=== PATIENT | female | born 1990 | race Caucasian/White ===

== ENCOUNTER 2019-04-05 16:01 | Emergency (ER) | payer OTHER, SELFPAY ==
[2019-04-05 16:02] VITALS: BP 125/84; PULSE 73; RESP 18; TEMP 36.5; BMI 35.6
[2019-04-05 19:02] VITALS: BP 154/89; PULSE 93; RESP 14; O2SAT 97
[2019-04-05] MEDS: Diphth,Pertuss(Acell),Tet Vac 0.5 ML Vial IM (19:35)
--- NOTE | 2019-04-05 19:49 | ED.DCSUM_ITS ---
- ER Visit Summary Date of Service: 04/05/19 Chief Complaint: Right thumb laceration History of Present Illness: The patient is a 28 F who presents with laceration to her right thumb that occurred today. Patient was using a vegetable chopper when she accidentally cut her thumb. Patient states the bleeding has been persistent. Patient denies any paresthesias or weakness. Patient currently denies any pain in her thumb. Patient states her last tetanus was between 5 and 10 years ago. Physical Examination: Vital signs are stable. Patient is afebrile. Patient is in no acute distress. Skin is warm dry. There is a 2.5 cm full-thickness linear laceration on the pad of the right thumb. There is mild gapping of the wound margins. There are no foreign bodies noted. There is full range of motion of the IP and MP joints of the right thumb. Strength is 5/5 in flexion and extension. Sensation was intact to light touch in all digits. Capillary refill was less than 2 seconds in all digits. Emergency Department Course and Treatment: The right thumb was anesthetized with 1% lidocaine via digital block. The wound was cleaned and irrigated with copious amounts of normal saline. The wound was closed with 6 simple interrupted #4-0 nylon sutures under sterile technique. Patient tolerated the procedure well. Bacitracin dressing was applied. Patient was instructed to follow-up with her primary care physician in 5 to 7 days for wound recheck and suture removal. Patient and family understood and were agreeable with the plan. All questions were answered. Disposition: Discharge home Impression: Right thumb laceration This note was generated with [employer] dictation software. It may contain incorrect words, spelling, and punctuation that were not noted in review of the chart claribel or to signing ED Disposition - Plan for ED Patient: Disposition: Home or Assisted Living Diagnosis: Laceration of right thumb Instructions: LACERATION, Extrem (Suture, Staple or Tape) Referrals: Chiki Gonzales MD [Primary Care Provider] - 7 Days for suture removal
[2019-04-05 20:19] VITALS: BP 145/78; PULSE 78; RESP 16; O2SAT 97
--- NOTE | 2019-04-05 20:20 | ED.RN ---
PT WAS OBSERVED ON SHOT TIME FOR 20 MIN. NO REACTION NOTED BY THIS NURSE.
== END 2019-04-05 20:20 | disposition home or self-care (01) ==
PROVIDERS: Emergency Provider Emergency Medicine; Family Provider Family Medicine; PCP Family Medicine
DX: S61.011A Laceration without foreign body of right thumb without damage to nail, initial encounter (principal); W26.8XXA Contact with other sharp object(s), not elsewhere classified, initial encounter; Y93.G1 Activity, food preparation and clean up
CPT/HCPCS: 12001; 90471; 90715; 99284

== ENCOUNTER 2021-01-09 00:15 | Inpatient (IN) | payer OTHER, SELFPAY ==
[2021-01-08 23:08] VITALS: BP 155/73; PULSE 90
[2021-01-08 23:10] VITALS: TEMP 36.1
[2021-01-08 23:11] VITALS: TEMP 36.1; O2SAT 98
[2021-01-08 23:14] VITALS: BMI 38.7
[2021-01-09] VITALS (52 sets, daily range): BP systolic 128–149; BP diastolic 63–80; PULSE 74–111; TEMP 35.9–36.8; O2SAT 83–100
[2021-01-09 00:11] LABS: ROM Internal Control Test YES-OK TO RESULT pt. (Internal QC)
[2021-01-09 00:12] LABS: ROM Patient Test POSITIVE (Negative)
[2021-01-09] MEDS: Lactated Ringers 1,000 ML 50 ML IV (00:50)
[2021-01-09 01:18] LABS: Absolute Neutrophil Count 13.3 X10^3/uL (2.0-7.7); Basophil# 0.04 X10^3/uL; Basophil% 0.2 % (0-1); Eosinophil# 0.08 X10^3/uL; Eosinophils% 0.5 % (0-5); Lymphocyte % 15.1 % (19-41); Mean Corp Hgb Conc 33.3 g/dL (32-36); Mean Corpuscular Hgb 30.7 pg (27.0-32.0); Mean Corpuscular Volume 92.2 fL (81-99); Mean Platelet Vol. 12.8 fl (6.2-12.0); Monocyte# 1.12 X10^3/uL; Monocyte% 6.5 % (0-10); NRBC Flagged by Analyzer 0 % (0-5); Neutrophil # 13.26 X10^3/uL (2.7-7.7); Neutrophil % 76.7 % (47-70); POSITIVE COUNT YES; RBC Distribution Width CV 12.8 % (11.6-14.6); RBC Distribution Width SD 43.3 fl (35.1-43.9); Red Blood Count 3.58 M/mm3 (4.2-5.4); White Blood Count 17.3 K/mm3 (4.4-11.0)
[2021-01-09 01:20] LABS: Differential Indicated SCAN CRITERIA MET
[2021-01-09] MEDS: miSOPROStol 25 MCG TABLET PO ×2 (01:35→06:01)
[2021-01-09 01:56] LABS: ALB/GLOB Ratio 0.6 RATIO (0.9-2.4); AST(SGOT) 16 U/L (15-37); Alanine Aminotransfer ALT/SGPT 17 U/L (13-56); Albumin, Serum 2.6 g/dL (3.2-5.0); Alkaline Phosphatase 105 U/L (45-117); Anion Gap 8 (5-15); BUN 14 mg/dL (7-18); BUN/Creat Ratio 15.8 RATIO (10-20); Calcium,Total 9.1 mg/dL (8.5-10.1); Chloride 108 mmol/L (98-107); Creatinine, Serum 0.89 mg/dL (0.55-1.02); EST Glomerular Filtration Rate 79 mL/min (>60); Est Glom Filt Rate - Afr Amer 96 mL/min (>60); Estimated Creatinine Clearance 106.66 ml/min; Globulin 4.3 g/dL (2.2-4.2); Glucose 107 mg/dL (74-106); Potassium 4.2 mmol/L (3.5-5.1); Protein, Total 6.9 g/dL (6.4-8.2); Sodium Level 139 mmol/L (136-145); Uric Acid 5.4 mg/dL (2.6-6.0)
[2021-01-09 02:23] LABS: Protein, Urine (Random) 7.3 mg/dL (<11.9); Protein:Creat Ratio 315 mg/g CRE (0-200)
[2021-01-09 02:37] LABS: Platelet Estimate ADEQUATE (ADEQ)
[2021-01-09 02:38] LABS: Differential Comment SCANNED
[2021-01-09 04:08] LABS: Platelet Count 212 K/mm3 (150-450)
--- NOTE | 2021-01-09 08:50 | PCM.HP.OB ---
HPI - General General Date of Admission: 01/09/21 HPI Narrative ANA DAVIES, is a 30 F who presents with SROM. Maternal Data Information Final BRITTANY: 01[birth year]21 Gestational age: 37 weeks [facility] Medical History (Updated 01/09/21 @ 08:[address] Galilea Abraham MD) Anxiety SROM (spontaneous rupture of membranes) Home Medications aspirin [Baby Aspirin] 81 mg PO DAILY 01/08/21 [History Last Taken 01/08/21 10:00] ferrous sulfate [iron] 325 mg PO BID 01/08/21 [History Last Taken 01/08/21 10:00] [id number] [] tab PO DAILY 01/08/21 [History Last Taken 01/08/21 10:00] Allergy/AdvReac Type Severity Reaction Status Date / Time No Known Allergies Allergy Verified 01/08/21 23:15 Surgical History (Updated 01/09/21 @ 00:26 by Madison Hines) H/O wisdom tooth extraction Social History Smoking Status: Former smoker History Elective abortions Hx Para 0 Spontaneous abortions Hx # Term Pregnancies Ectopic pregnancies Hx # Pregnancies Multiple births # of living children NST FHR Rate Baby A Variability:: Moderate Accelerations:: 15 x 15 Uterine Activity:: quiet Vital Signs Vital Signs Vital Signs: 01/08/21 23:08 01/08/21 23:10 01/08/21 23:11 Temperature 97.0 F L 96.9 F L Temperature Source Temporal Pulse Rate 90 Blood Pressure 155/73 H BP Systolic 155 BP Diastolic 73 Pulse Ox 98 01/09/21 00:03 01/09/21 03:49 01/09/21 03:50 Temperature 97.5 F L Temperature Source Pulse Rate 85 76 84 Blood Pressure 134/77 H 140/76 H BP Systolic 134 140 BP Diastolic 77 76 Pulse Ox 98 01/09/21 07:15 01/09/21 07:16 01/09/21 08:39 Temperature 98.1 F 97.9 F Temperature Source Pulse Rate 74 Blood Pressure 135/75 H BP Systolic 135 BP Diastolic 75 Pulse Ox 01/09/21 08:40 Temperature Temperature Source Pulse Rate 76 Blood Pressure 136/74 H BP Systolic 136 BP Diastolic 74 Pulse Ox Weight Weight: 286 lb Body Mass Index (BMI) 38.7 Physical Exam Const alert and oriented x3 HEENT normocephalic Chest inspection of chest normal Resp normal respiratory effort GI soft to palpation and non-tender Inspection: gravid external exam normal Narrative: cvx - closed/thick/high on admission Labs Labs Labs: Blood Type A POSITIVE Antibody Screen NEGATIVE Hct 33.0 % (37-47) L Hgb 11.0 g/dL (12.0-15.0) L See [facility] H&) Assessment & Plan (1) SROM (spontaneous rupture of membranes): COMMENT: 37 weeks PLAN: Admit to L&D Induction for SROM - s/p 2 doses of cytotec. Plan for pitocin and IUPC placement when able. Pain - epidural as desired GBS negative COVID negative Routine care EFW - less than 4500g, patient with adequate pelvis
[2021-01-09] MEDS: 0.9% Saline Lock 10 ML Syringe IV (10:35)
[2021-01-09] MEDS: Oxytocin 30 units/NS 500 ml 30 UNITS/500 ML IV.SOLN IV (10:37)
[2021-01-09] MEDS: Lactated Ringers 500 ML 999 ML IV ×2 (15:02→20:22)
[2021-01-09] MEDS: fentaNYL-bupivacaine (epidural) 100 ML BAG EPIDURAL ×2 (15:57→20:21)
--- NOTE | 2021-01-09 16:52 | PN.OBGYN_ITS ---
Subjective Subjective Comfortable with epidural Objective Data Objective Data Vital Signs: Vital Signs Temp Pulse BP Pulse Ox 97.9 F 86 133/78 H 83 01/09/21 16:05 01/09/21 16:38 01/09/21 16:38 01/09/21 16:06 Weight: 286 lb Body Mass Index (BMI) 38.7 Intake & Output: Intake and Output for Last 24 Hours 01/07/21 01/08/21 01/09/21 23:59 23:59 23:59 Intake Total 1747.80 / 1747.80 Output Total 1700 / 1700 Balance 47.80 / 47.80 Lab / Micro Data Result Diagrams: 01/09/21 00:50 01/09/21 00:50 Labs: Laboratory Results - last 24 hr 01/08/21 23:30: Vag Amniotic Fld Detect POSITIVE H 01/09/21 00:50: WBC 17.3 H, RBC 3.58 L, Hgb 11.0 L, Hct 33.0 L, MCV 92.2, MCH 30.7, MCHC 33.3, RDW Std Deviation 43.3, RDW Coeff of Anabela 12.8, Plt Count 212, MPV 12.8 H, Immature Gran % (Auto) 1.000 H, Neut % (Auto) 76.7 H, Lymph % (Auto) 15.1 L, Bath % (Auto) 6.5, Eos % (Auto) 0.5, Baso % (Auto) 0.2, Absolute Neuts (auto) 13.3 H, Absolute Lymphs (auto) 2.60, Nucleated RBC % 0, Differential Comment SCANNED, Platelet Estimate ADEQUATE 01/09/21 00:50: Blood Type A POSITIVE, Antibody Screen NEGATIVE 01/09/21 00:50: Sodium 139, Potassium 4.2, Chloride 108 H, Carbon Dioxide 23.0, Anion Gap 8, BUN 14, Creatinine 0.89, Estim Creat Clear Calc 106.66, Est GFR (M DRD) Af Amer 96, Est GFR (MDRD) Non-Af 79, BUN/Creatinine Ratio 15.8, Glucose 107 H, Uric Acid 5.4, Calcium 9.1, Total Bilirubin 0.40, AST 16, ALT 17, Alkaline Phosphatase 105, Total Protein 6.9, Albumin 2.6 L, Globulin 4.3 H, Albumin/Globulin Ratio 0.6 L 01/09/21 01:30: U Random Total Protein 7.3, Urine Creatinine 23.20, Protein/Creatinin Ratio 315 H Micro: Microbiology 01/09/21 00:50 Nasal Secretion SARS-CoV-2 Antigen (Rapid) - Final NST FHR Rate Baby A Baseline: 130 Variability:: Moderate Accelerations:: 15 x 15 Decelerations:: None Uterine Activity:: Q 2 min Assessment & Plan (1) SROM (spontaneous rupture of membranes): COMMENT: 37 weeks PLAN: AROM additional amniotic membranes - clear fluid cvx /-3 Continue pitocin induction
[2021-01-09] MEDS: Lactated Ringers 1,000 ML 200 ML IV ×2 (18:27→23:53)
[2021-01-10] VITALS (31 sets, daily range): BP systolic 116–144; BP diastolic 53–83; PULSE 70–129; RESP 16–18; TEMP 36.4–37.7; O2SAT 93–100
[2021-01-10] MEDS: fentaNYL-bupivacaine (epidural) 100 ML BAG EPIDURAL ×2 (01:17→05:37)
[2021-01-10] MEDS: Ondansetron 4 MG/2 ML Vial IV (01:44)
[2021-01-10] MEDS: Lactated Ringers 1,000 ML 200 ML IV (04:51)
[2021-01-10] MEDS: Lactated Ringers 500 ML 999 ML IV (05:13)
[2021-01-10] MEDS: Acetaminophen 500 MG Tablet PO (05:28)
[2021-01-10] MEDS: Oxytocin 30 units/NS 500 ml 30 UNITS/500 ML IV.SOLN 334 UNITS IV (08:11)
--- NOTE | 2021-01-10 08:18 | EX.PCM.OBRPT ---
Assessment & Plan (1) Vaginal delivery: (2) Meconium in amniotic fluid affecting management of mother, delivered: Vaginal Delivery Maternal Presentation Maternal Presentation: Spontaneous Rupture of Membranes and Medically Indicated Induction Maternal Presentation: Presented with PROM at 37.1 weeks gestation - cytotec and pitocin induction of labor performed Type of Induction: Pitocin and Cytotec Medical Reason for Induction: Premature Rupture of Membranes Operative Information Date of Procedure: 01/10/21 Pre-Operative Diagnosis: term gestation, PROM, Meconium fluid Post-Operative Diagnosis: same, live male infant Surgery / Procedure Performed: Spontaneous Vaginal Delivery Type of Anesthesia: Epidural Drain: Samuels to straight drain Estimated Blood Loss: 200 Time of Delivery: 08:08 Findings Description of Procedure: I arrived on unit evaluated the patient. Patient has been fully dilated and pushing for approximately 3-1/2 to 4 hours. Upon my exam it was felt that the infant was in the OP position with caput noted. Internal podalic version was performed to the MICHELINE position. Once rotation was performed with good maternal pushing efforts the head was and delivery of the head followed by the shoulders and the rest 's body. Delayed cord clamping was performed as the was placed on the mother's chest. Infant was vigorous at time of delivery and manufacturing test technician was present for delivery due to meconium fluid. Placenta delivered without complication and intact. First-degree vaginal laceration was repaired with 2-0 vicryl for hemostasis. Presentation: Vertex Amniotic Membrane Rupture Type: Spontaneous Amniotic Fluid Description: Moderate meconium Placental Delivery Description: Spontaneous Placenta Disposition: [facility] Specimen(s) Removed: Placenta Cord Vessel Description: 3 Vessels Cord Entanglement: None A Gender: Male (1 minute): 8 (5 minute): 9 Delayed Cord Clamping: Yes Post Vaginal Delivery Medications Given After Delivery: IV Pitocin Episiotomy Description: None Laceration: Vaginal Extension/lac and 1st degree Complication Complications: None
[2021-01-10] MEDS: Ibuprofen 600 MG Tablet PO (12:58)
[2021-01-11] MEDS: Ibuprofen 600 MG Tablet PO (00:19)
[2021-01-11 00:20] VITALS: BP 145/74; PULSE 107; RESP 16; TEMP 37.2; O2SAT 99
[2021-01-11 03:35] VITALS: BP 127/65; PULSE 79; RESP 18; TEMP 36.3; O2SAT 98
[2021-01-11 07:47] VITALS: BP 132/74; PULSE 95; RESP 16; TEMP 36.1
--- NOTE | 2021-01-11 08:37 | PN.OBGYN_ITS ---
Subjective Subjective Patient seen at bedside. Feeling good. Denies any pain. Ambulating and voiding without difficulty. Pumping and feeding infant via bottle in [facility]. Desires discharge home or transfer to [facility] status tomorrow. Objective Data Objective Data Vital Signs: Vital Signs Temp Pulse Resp BP Pulse Ox 98.8 F 96 16 139/70 H 98 01/11/21 13:05 01/11/21 13:05 01/11/21 13:05 01/11/21 13:05 01/11/21 03:35 Oxygen Delivery Method Room Air Weight: 286 lb Body Mass Index (BMI) 38.7 Intake & Output: Intake and Output for Last 24 Hours 01/09/21 01/10/21 01/11/21 23:59 23:59 23:59 Intake Total 5837.55 / 5837.55 3843.54 / 3843.54 Output Total 3850 / 3850 1200 / 1200 Balance 1987.55 / 1987.55 2643.54 / 2643.54 Lab / Micro Data Result Diagrams: 01/09/21 00:50 01/09/21 00:50 Micro: Microbiology 01/09/21 00:50 Nasal Secretion SARS-CoV-2 Antigen (Rapid) - Final ROS Eyes Eyes: Denies blurry vision, change in vision or spots in vision ENT HEENT: Denies dizziness or headache(s) Cardiovascular Cardiovascular: Denies abdominal pain, chest pain or dyspnea Respiratory/Chest Respiratory/Chest: Denies cough, dyspnea, shortness of breath at rest or shortness of breath with exertion Gastrointestinal Gastrointestinal: Denies abdominal pain, diarrhea or vomiting Genitourinary Genitourinary: Denies change in urinary stream, difficulty urinating or dysuria Musculoskeletal Musculoskeletal: Reports none Integumentary Integumentary: Denies rash Neurologic Neurologic: Denies dizziness, headache(s), memory loss or weakness Physical Exam Const alert and no apparent distress General Appearance: cooperative and comfortable Exam Limitations: no limitations HEENT normocephalic Eyes General Eye: normal appearance of both eyes Neck full ROM General: normal visual inspection Chest Chest: symmetrical chest wall rise Resp normal respiratory effort and normal air movement Effort and Inspection: symmetric chest movement Auscultation: clear to auscultation bilaterally Cardio regular rate and regular rhythm GI normal to inspection, nondistended, normoactive bowel sounds Back/Spine normal ROM Extremity full ROM and no calf tenderness General Extremity: normal exam except as noted Skin no rashes or lesions noted Neuro CN's II-XII intact bilaterally Psych mental status grossly normal Assessment & Plan (1) Vaginal delivery: (2) Laceration, obstetrical, first degree: PLAN: PPD#1 Routine care support Anticipate discharge home tomorrow
[2021-01-11 13:05] VITALS: BP 139/70; PULSE 96; RESP 16; TEMP 37.1
[2021-01-11 20:10] VITALS: BP 151/83; PULSE 88; RESP 18; TEMP 36.7
[2021-01-12] VITALS (7 sets, daily range): BP systolic 123–153; BP diastolic 79–87; PULSE 83–107; RESP 16–18; TEMP 36.3–36.8; O2SAT 98–100
[2021-01-12] MEDS: Acetaminophen 500 MG Tablet 1000 MG PO (04:03)
[2021-01-12 09:12] LABS: Hematocrit 30.6 % (37-47); Hemoglobin 9.8 g/dL (12.0-15.0); Mean Corpuscular Hgb 30.3 pg (27.0-32.0); Mean Corpuscular Volume 94.7 fL (81-99); Mean Platelet Vol. 11.6 fl (6.2-12.0); Platelet Count 177 K/mm3 (150-450); RBC Distribution Width CV 13.2 % (11.6-14.6); RBC Distribution Width SD 45.5 fl (35.1-43.9); Red Blood Count 3.23 M/mm3 (4.2-5.4); White Blood Count 13.4 K/mm3 (4.4-11.0)
[2021-01-12 09:32] LABS: Uric Acid 6.1 mg/dL (2.6-6.0)
[2021-01-12 10:06] LABS: ALB/GLOB Ratio 0.5 RATIO (0.9-2.4); AST(SGOT) 20 U/L (15-37); Alanine Aminotransfer ALT/SGPT 20 U/L (13-56); Albumin, Serum 2.2 g/dL (3.2-5.0); Alkaline Phosphatase 96 U/L (45-117); Anion Gap 7 (5-15); BUN 12 mg/dL (7-18); BUN/Creat Ratio 14.5 RATIO (10-20); Chloride 108 mmol/L (98-107); Creatinine, Serum 0.83 mg/dL (0.55-1.02); EST Glomerular Filtration Rate 86 mL/min (>60); Est Glom Filt Rate - Afr Amer 104 mL/min (>60); Estimated Creatinine Clearance 114.37 ml/min; Globulin 4.1 g/dL (2.2-4.2); Glucose 72 mg/dL (74-106); Potassium 3.7 mmol/L (3.5-5.1); Protein, Total 6.3 g/dL (6.4-8.2); Sodium Level 141 mmol/L (136-145)
[2021-01-12] MEDS: Labetalol 100 MG Tablet PO ×2 (12:35→23:00)
--- NOTE | 2021-01-12 17:24 | PCM.PN.OB ---
Subjective Subjective Doing well per patient and nursing staff. Ambulating and taking PO without difficulty. Voiding and passing flatus. Pain controlled. , services for assistance, baby in special care nursery and pumping. Has dull occipital pain but feels musculoskeletal, no headache.Denies visual changes, chest pain, shortness of breath, leg pain or increased bleeding. Lochia normal. Objective Data Objective Data Vital Signs: Vital Signs Temp Pulse Resp BP Pulse Ox 98.2 F 100 16 135/81 H 100 01/12/21 16:30 01/12/21 16:30 01/12/21 16:30 01/12/21 16:30 01/12/21 16:30 Oxygen Delivery Method Room Air Weight: 286 lb Body Mass Index (BMI) 38.7 Intake & Output: Intake and Output for Last 24 Hours 01/10/21 01/11/21 01/12/21 23:59 23:59 23:59 Intake Total 3843.54 / 3843.54 Output Total 1200 / 1200 Balance 2643.54 / 2643.54 Lab / Micro Data Result Diagrams: 01/12/21 08:55 01/12/21 08:55 Labs: Laboratory Results - last 24 hr 01/12/21 08:55: WBC 13.4 H, RBC 3.23 L, Hgb 9.8 L, Hct 30.6 L, MCV 94.7, MCH 30.3, MCHC 32.0, RDW Std Deviation 45.5 H, RDW Coeff of Anabela 13.2, Plt Count 177, MPV 11.6 01/12/21 08:55: Uric Acid 6.1 H 01/12/21 08:55: Sodium 141, Potassium 3.7, Chloride 108 H, Carbon Dioxide 26.0, Anion Gap 7, BUN 12, Creatinine 0.83, Estim Creat Clear Calc 114.37, Est GFR (MDRD) Af Amer 104, Est GFR (MDRD) Non-Af 86, BUN/Creatinine Ratio 14.5, Glucose 72 L, Calcium 8.0 L, Total Bilirubin 0.60, AST 20, ALT 20, Alkaline Phosphatase 96, Total Protein 6.3 L, Albumin 2.2 L, Globulin 4.1, Albumin/Globulin Ratio 0.5 L Micro: Microbiology 01/09/21 00:50 Nasal Secretion SARS-CoV-2 Antigen (Rapid) - Final ROS Constitutional Constitutional: Reports systems reviewed and no addt'l complaints, except as documented; Denies headache(s) Eyes Eyes: Denies acute decrease in peripheral vision, blurry vision or change in vision ENT HEENT: Reports systems reviewed and no addt'l complaints, except as documented Cardiovascular Cardiovascular: Denies chest pain or dizziness Respiratory/Chest Respiratory/Chest: Denies cough, dyspnea, dyspnea on exertion, shortness of breath at rest or shortness of breath with exertion Gastrointestinal Gastrointestinal: Denies abdominal pain, diarrhea, nausea or vomiting Genitourinary Genitourinary: Denies abdominal discomfort Musculoskeletal Musculoskeletal: Denies limited range of motion Integumentary Integumentary: Reports systems reviewed and no addt'l complaints, except as documented Neurologic Neurologic: Reports systems reviewed and no addt'l complaints, except as documented Psychiatric Psychiatric: Reports systems reviewed and no addt'l complaints, except as documented Endocrine Endocrinology: Reports systems reviewed and no addt'l complaints, except as documented Hematologic/Lymphatic Hematologic/Lymphatic: Reports systems reviewed and no addt'l complaints, except as documented Allergic/Immunologic Allergic/Immunologic: Reports systems reviewed and no addt'l complaints, except as documented Physical Exam Const alert and oriented x3 General Appearance: cooperative Orientation / Consciousness: awake, oriented to person, oriented to place and oriented to time Exam Limitations: no limitations HEENT normocephalic Head and Scalp: normal to inspection, normocephalic and atraumatic Face and Sinus: normal facial exam Eyes General Eye: normal appearance of both eyes Neck full ROM Chest Chest: symmetrical chest wall rise Resp normal respiratory effort and normal air movement Auscultation: clear to auscultation bilaterally Cardio regular rate, regular rhythm, S1 normal heart sound, S2 normal heart sound, no murmurs, no rub, no gallops and no clicks GI normal to inspection, nondistended, normoactive bowel sounds and non-tender appearance of the vagina normal Bladder / Kidney Exam: no CVA tenderness Back/Spine normal ROM Extremity normal to inspection and full ROM Skin no rashes or lesions noted Neuro oriented x3, CN's II-XII intact bilaterally and moves all extremities Sensorium / Orientation: awake, alert and oriented to person Motor Exam: clonus absent Deep Tendon Reflexes: Rt Patellar (L4): 2+ and Lt Patellar (L4): 2+ Assessment & Plan (1) Laceration, obstetrical, first degree: (2) Vaginal delivery: COMMENT: PPD #2 PLAN: 1) Routine PP instructions 2) BP mildly elevated. Will start Labetalol 100mg PO BID. Consulted and agrees with plan. 3) Continue pumping, will work with services 4) Planning D/C to hot status tomorrow
[2021-01-13 02:23] VITALS: BP 128/73; PULSE 81; RESP 18
[2021-01-13] MEDS: Labetalol 100 MG Tablet PO ×2 (02:27→18:03)
[2021-01-13 05:43] VITALS: BP 133/74
[2021-01-13] MEDS: Labetalol 200 MG Tablet PO ×2 (05:46→13:38)
--- NOTE | 2021-01-13 06:54 | PN.OBGYN_ITS ---
Subjective Subjective Doing well per patient and nursing staff. Ambulating and taking PO without difficulty. Voiding and passing flatus. Pain controlled. Pumping, baby in SCN. Denies headache, visual changes, chest pain, shortness of breath, leg pain or increased bleeding. Lochia normal. Objective Data Objective Data Vital Signs: Vital Signs Temp Pulse Resp BP Pulse Ox 97.9 F 81 18 133/74 H 100 01/12/21 19:45 01/13/21 02:23 01/13/21 02:23 01/13/21 05:43 01/12/21 19:45 Oxygen Delivery Method Room Air Weight: 286 lb Body Mass Index (BMI) 38.7 Lab / Micro Data Result Diagrams: 01/12/21 08:55 01/12/21 08:55 Labs: Laboratory Results - last 24 hr 01/12/21 08:55: WBC 13.4 H, RBC 3.23 L, Hgb 9.8 L, Hct 30.6 L, MCV 94.7, MCH 30.3, MCHC 32.0, RDW Std Deviation 45.5 H, RDW Coeff of Anabela 13.2, Plt Count 177, MPV 11.6 01/12/21 08:55: Uric Acid 6.1 H 01/12/21 08:55: Sodium 141, Potassium 3.7, Chloride 108 H, Carbon Dioxide 26.0, Anion Gap 7, BUN 12, Creatinine 0.83, Estim Creat Clear Calc 114.37, Est GFR (M DRD) Af Amer 104, Est GFR (MDRD) Non-Af 86, BUN/Creatinine Ratio 14.5, Glucose 72 L, Calcium 8.0 L, Total Bilirubin 0.60, AST 20, ALT 20, Alkaline Phosphatase 96, Total Protein 6.3 L, Albumin 2.2 L, Globulin 4.1, Albumin/Globulin Ratio 0.5 L Micro: Microbiology 01/09/21 00:50 Nasal Secretion SARS-CoV-2 Antigen (Rapid) - Final ROS Constitutional Constitutional: Reports systems reviewed and no addt'l complaints, except as documented; Denies headache(s) Eyes Eyes: Denies acute decrease in peripheral vision, blurry vision or change in vision ENT HEENT: Reports systems reviewed and no addt'l complaints, except as documented Cardiovascular Cardiovascular: Denies chest pain or dizziness Respiratory/Chest Respiratory/Chest: Denies cough, dyspnea, dyspnea on exertion, shortness of jak th at rest or shortness of breath with exertion Gastrointestinal Gastrointestinal: Denies abdominal pain, diarrhea, nausea or vomiting Genitourinary Genitourinary: Denies abdominal discomfort Musculoskeletal Musculoskeletal: Denies limited range of motion Integumentary Integumentary: Reports systems reviewed and no addt'l complaints, except as documented Neurologic Neurologic: Reports systems reviewed and no addt'l complaints, except as documented Psychiatric Psychiatric: Reports systems reviewed and no addt'l complaints, except as documented Endocrine Endocrinology: Reports systems reviewed and no addt'l complaints, except as documented Hematologic/Lymphatic Hematologic/Lymphatic: Reports systems reviewed and no addt'l complaints, except as documented Allergic/Immunologic Allergic/Immunologic: Reports systems reviewed and no addt'l complaints, except as documented Physical Exam Const alert and oriented x3 General Appearance: cooperative Orientation / Consciousness: awake, oriented to person, oriented to place and oriented to time Exam Limitations: no limitations HEENT normocephalic Head and Scalp: normal to inspection, normocephalic and atraumatic Face and Sinus: normal facial exam Eyes General Eye: normal appearance of both eyes Neck full ROM Chest Chest: symmetrical chest wall rise Resp normal respiratory effort and normal air movement Auscultation: clear to auscultation bilaterally Cardio regular rate, regular rhythm, S1 normal heart sound, S2 normal heart sound, no murmurs, no rub, no gallops and no clicks GI normal to inspection, nondistended, normoactive bowel sounds and non-tender GI Narrative: fundus firm 2 below U appearance of the vagina normal Bladder / Kidney Exam: no CVA tenderness Uterus Palpation: uterus fundus firm Back/Spine normal ROM Extremity normal to inspection and full ROM Extremity Narrative: +1 non pitting General Extremity: edema bilateral Skin no rashes or lesions noted Neuro oriented x3, CN's II-XII intact bilaterally and moves all extremities Sensorium / Orientation: awake, alert and oriented to person Motor Exam: clonus absent Deep Tendon Reflexes: Rt Patellar (L4): 2+ and Lt Patellar (L4): 2+ Assessment & Plan (1) Laceration, obstetrical, first degree: (2) Vaginal delivery: COMMENT: PPD #3 (3) Hypertension, condition or complication: (4) Acute blood loss anemia: PLAN: 1.routine and breast-feeding education. 2. Vital signs stable. No severe blood pressure range. Will discharge on labetalol 200 mg p.o. TID. To check blood pressure at home and to call if greater than 160/110. 3. Follow-up early next week for blood pressure check in office 4. Ferrous sulfate 325 mg p.o. once daily for acute blood loss anemia. 5. Discharge to hotel status
--- NOTE | 2021-01-13 06:58 | PCM.DC.SUM ---
Providers Date of Admission: 01/09/21 Primary Care Physician: Dr. Chiki Gonzales MD Reason For Visit: LABOR VAG DEL Diagnosis Discharge Diagnosis (1) Laceration, obstetrical, first degree: Status: Acute Code(s): O70.0 - First degree perineal laceration during delivery (2) Vaginal delivery: Status: Acute Code(s): O80 - Encounter for full-term uncomplicated delivery (3) Hypertension, condition or complication: Status: Acute Code(s): O16.5 - Unspecified maternal hypertension, complicating the puerperium (4) Acute blood loss anemia: Status: Acute Code(s): D62 - Acute posthemorrhagic anemia Medications at Discharge Home Medications fzzbjgdw-[id number]-FA tab PO DAILY 01/08/21 acetaminophen 1,000 mg PO Q6H PRN PRN #0 tab 01/13/21 benzocaine-menthol [Dermoplast (with menthol)] 1 spray TOPICAL TID PRN PRN #0 g 01/13/21 ferrous sulfate [iron] 325 mg PO DAILY #30 tab 01/13/21 ibuprofen 600 mg PO Q6H PRN PRN #30 tab 01/13/21 labetalol 200 mg PO TID #90 tab 01/13/21 Weight / BMI Weight Weight: 286 lb Body Mass Index (BMI) 38.7 ABG / Lab / Microbiology Data Result Diagrams: 01/12/21 08:55 01/12/21 08:55 Laboratory: Laboratory Results - last 24 hr 01/12/21 08:55: WBC 13.4 H, RBC 3.23 L, Hgb 9.8 L, Hct 30.6 L, MCV 94.7, MCH 30.3, MCHC 32.0, RDW Std Deviation 45.5 H, RDW Coeff of Anabela 13.2, Plt Count 177, MPV 11.6 01/12/21 08:55: Uric Acid 6.1 H 01/12/21 08:55: Sodium 141, Potassium 3.7, Chloride 108 H, Carbon Dioxide 26.0, Anion Gap 7, BUN 12, Creatinine 0.83, Estim Creat Clear Calc 114.37, Est GFR (MDRD) Af Amer 104, Est GFR (MDRD) Non-Af 86, BUN/Creatinine Ratio 14.5, Glucose 72 L, Calcium 8.0 L, Total Bilirubin 0.60, AST 20, ALT 20, Alkaline Phosphatase 96, Total Protein 6.3 L, Albumin 2.2 L, Globulin 4.1, Albumin/Globulin Ratio 0.5 L Microbiology: Microbiology 01/09/21 00:50 Nasal Secretion SARS-CoV-2 Antigen (Rapid) - Final Meaningful Use Info Meaningful Use Diagnoses (Choose all that apply): None applicable Discharge Plan Admission Admit Date/Time: 01/09/21 00:15 Primary Reason for Your Visit: Vaginal Delivery Attending Provider: Elli Lopez Primary Care Provider: Chiki Gonzales Instructions Patient Instructions: Anemia, After a Vaginal , Discharge Orders/Prescriptions Prescriptions: New acetaminophen 500 mg Tablet 1,000 mg PO Q6H PRN PRN (Reason: Pain 1-10 Or Fever) Qty: 0 RF: 0 Dermoplast (with menthol) 20-0.5 % Aerosol 1 spray topical TID PRN PRN (Reason: perineal discomfort) Qty: 0 RF: 0 labetalol 200 mg Tablet 200 mg PO TID Qty: 90 RF: 0 ibuprofen 600 mg Tablet 600 mg PO Q6H PRN PRN (Reason: Pain Score 1-3) Qty: 30 RF: 0 Continued zyqkzwpd-[id number]-Cj-FA 1 mg Tablet PO DAILY RF: 0 Changed ferrous sulfate [iron] 325 mg (65 mg iron) Tablet 325 mg PO DAILY Qty: 30 RF: 0 Discontinued aspirin [Baby Aspirin] 81 mg Tablet,Chewable 81 mg PO DAILY RF: 0 Referrals / Follow Up: Chiki Gonzales MD [Primary Care Provider] - Disposition Disposition (needs filled in before D/C Order can be placed): Home, Self Care
[2021-01-13 08:02] VITALS: BP 127/81; PULSE 79; RESP 16; TEMP 36.6
[2021-01-13] MEDS: Acetaminophen 500 MG Tablet 1000 MG PO (13:03)
[2021-01-13 14:14] VITALS: BP 149/87; PULSE 78; RESP 16; TEMP 36.7
[2021-01-13 16:10] VITALS: BP 149/86; PULSE 76; RESP 16; TEMP 36.7
== END 2021-01-13 18:45 | disposition home or self-care (01) | DRG 806 ==
LOC: WPOUT 00:25 → WP 00:25
PROVIDERS: Advanced Practice Midwife; Admitting Provider Obstetrics & Gynecology; PCP Family Medicine; Referring Provider Obstetrics & Gynecology; Visit Provider Obstetrics & Gynecology
DX: O42.913 Preterm premature rupture of membranes, unspecified as to length of time between rupture and onset of labor, third trimester (principal); D62 Acute posthemorrhagic anemia; Z37.0 Single live birth; O77.0 Labor and delivery complicated by meconium in amniotic fluid; O16.5 Unspecified maternal hypertension, complicating the puerperium; O70.0 First degree perineal laceration during delivery; Z3A.37 37 weeks gestation of pregnancy; Z79.82 Long term (current) use of aspirin; Z87.891 Personal history of nicotine dependence
CPT/HCPCS: 59025; 59050; 80053; 82570; 84112; 84156; 84550; 85025; 85027; 86850; 86900; 86901; 87426; 99218; J7120; A4216; G0378; J2405

== ENCOUNTER 2024-12-04 17:00 | Inpatient (IN) | payer BC, SELFPAY ==
[2024-12-04] VITALS (8 sets, daily range): BP systolic 114–135; BP diastolic 60–70; PULSE 75–97; RESP 18–20; TEMP 35.7–37.3; O2SAT 98–100; BMI 38.0
--- OUTSIDE RECORDS SUMMARY | 2024-12-04 10:51 | XMS RPT_ITS | CCD ---
Author Organization [facility] Care Team Providers Care Sheet Tailer Name Role Phone Chiki Gonzales Primary Care Provider ADINA KRUEGER Referring Unavailable GONZALES, CHIKI Dominique Primary Care Unavailable KELLY BALTAZAR Attending Unavailable GONZALES, CHIKI Dominique Primary Care Unavailable ELLI BARROS Referring Unavail able GONZALES, CHIKI Dominique Primary Care Unavailable SHEYLA MORENO Attending Unavailable ELLI BARROS Referring Unavail able GONZALES, CHIKI Dominique Primary Care Unavailable SHEYLA MORENO Referring Unavailable GONZALES, CHIKI Dominique Primary Care Unavailable KENIA, LEANNE Referring Unavailable GONZALES, CHIKI R Primary Care Unavailable KENIA, LEANNE Referring Unavailable GONZALES, CHIKI Dominique Primary Care Unavailable GONZALES, CHIKI Dominique Primary Care Unavailable POLLY HAMILTON Attending Unavailable KENIA, LEANNE Referring Unavailable GONZALES, CHIKI R Primary Care Unavailable KENIA, LEANNE Referring Unavailable KELLY BALTAZAR Attending Unavailable GONZALES, CHIKI R Primary Care Unavailable CRISSY TOM Attending Unavailable GONZALES, CHIKI R Primary Care Unavailable KENIA, LEANNE Attending Unavailable GONZALES, CHIKI R Primary Care Unavailable KENIA, LEANNE Referring Unavailable GONZALES, CHIKI R Primary Care Unavailable NEEUNICET ELLI GAYTAN Attending Unavail able GONZALES, CHIKI R Primary Care Unavailable GONZALES, CHIKI Dominique Primary Care Unavailable GONZALES, CHIKI Dominique Primary Care Unavailable ADINA KRUEGER Attending Unavailable ELLI BARROS Referring Unavail able GONZALES, CHIKI Dominique Primary Care Unavailable KELLY BALTAZAR Attending Unavailable GONZALES, CHIKI Dominique Primary Care Unavailable Gonzales Chiki STAUFFER Primary Care Provider [phone] Medications Current Medications Medication Drug Class(es) Dates Sig (Normalized) Sig (Original) aspirin 81 mg delayed release oral tablet (20 sources) Platelet Aggregation Inhibitor, Nonsteroidal Anti-inflammatory Drug Start: 06-07-2024 take 1 tablet by mouth once daily aspirin, enteric coated (ECOTRIN LOW STRENGTH) 81 mg EC tablet Indications: 8 weeks gestation of ([facility]) Take 1 tablet by mouth once daily. 90 tablet 3 06/07/2024 Active cephalexin 500 mg oral capsule (2 sources) Cephalosporin Antibacterial Start: 07-08-2024 End: 07-13-2024 take 1 capsule by mouth four times daily cephALEXin (KEFLEX) 500 mg capsule Indications: Bacteria in urine Take 1 capsule by mouth four times daily for 5 days. 20 capsule 07/08/2024 07/13/2024 Active famotidine 20 mg oral tablet (2 sources) Histamine-2 Receptor Antagonist Start: 11-08-2024 take 1 tablet by mouth twice daily famotidine (PEPCID) 20 mg tablet Indications: 30 weeks gestation of ([facility]) , Gastroesophageal reflux disease, unspecified whether esophagitis present Take 1 tablet by mouth two times a day. 60 tablet 11/08/2024 Active ferrous sulfate 325 mg oral tablet (4 sources) End: 02-11-2022 take 1 tablet by mouth once daily at breakfast ferrous sulfate 325 mg (65 mg iron) tablet Take 325 mg by mouth daily with breakfast. 0 02/11/2022 Discontinued (Course of therapy completed) Comment on above: Take 325 mg by mouth daily with breakfast. labetalol hydrochloride 300 mg oral tablet (3 sources) beta-Adrenergic Collette Start: 02-26-2021 End: 02-11-2022 take 1 tablet by mouth three times daily labetalol (TRANDATE) 300 mg tablet Take 1 tablet by mouth three times daily. 90 tablet 0 02/26/2021 02/11/2022 Discontinued (Course of therapy completed) Comment on above: Take 1 tablet by julisa th three times daily. nitrofurantoin, macrocrystals 25 mg / nitrofurantoin, monohydrate 75 mg oral capsule (12 sources) Nitrofuran Antibacterial Start: 10-27-2024 End: 11-03-2024 take 1 capsule by mouth twice daily nitrofurantoin monohydrate and macrocrystal (MACROBID) 100 mg capsule Indications: UTI (urinary tract infection) in , antepartum ([facility]) Take 1 capsule by mouth two times a day for 7 days. 14 capsule 10/27/2024 11/03/2024 Active Start: 09-07-2024 End: 01-05-2025 take 1 capsule by mouth once daily nitrofurantoin monohydrate and macrocrystal (MACROBID) 100 mg capsule Take 1 capsule by mouth once daily. Start prophylaxis after initial one week BID regimen is completed. 30 capsule 3 09/07/2024 10/29/2024 Discontinued (Discontinued by Patient) Start: 09-07-2024 End: 09-14-2024 take 1 capsule by mouth twice daily nitrofurantoin monohydrate and macrocrystal (MACROBID) 100 mg capsule Indications: UTI (urinary tract infection) in , antepartum (HCC) Take 1 capsule by mouth two times a day for 7 days. 14 capsule 09/07/2024 09/14/2024 Active Start: 08-04-2024 End: 08-11-2024 take 1 capsule by mouth twice daily nitrofurantoin monohydrate and macrocrystal (MACROBID) 100 mg capsule Indications: UTI (urinary tract infection) in , antepartum (HCC) Take 1 capsule by mouth two times a day for 7 days. 14 capsule 08/04/2024 08/11/2024 Active Start: 06-09-2024 End: 06-16-2024 take 1 capsule by mouth twice daily nitrofurantoin monohydrate and macrocrystal (MACROBID) 100 mg capsule Indications: UTI (urinary tract infection) in , antepartum Take 1 capsule by mouth two times a day for 7 days. 14 capsule 06/09/2024 06/16/2024 Active norethindrone 0.35 mg oral tablet (13 sources) Start: 02-20-2021 End: 04-20-2023 take 1 tablet by mouth once daily Norethindrone, Contraceptive, (JENCYCLA) 0.35 mg tablet Indications: Encounter for surveillance of contraceptive pills Take 1 tablet by mouth once daily. 90 tablet 0 01/20/2023 04/20/2023 Active Comment on above: take 1 tablet by julisa th once daily Take 1 tablet by julisa th once daily for 28 days. Take 1 tablet by julisa th once daily. vit/iron fum/folic ac ( 1 + 1 ORAL) (20 sources) vit/iro n fum/folic ac ( 1 + 1 ORAL) Take by mouth once daily. Active Completed/Discontinued Medications Medication Drug Class(es) Dates Sig (Normalized) Sig (Original) albuterol HFA (PROAIR HFA) 90 mcg/actuation inhaler (1 source) Start: 08-08-2012 take 2 puff(s) by inhalation every four hours as needed albuterol HFA (PROAIR HFA) 90 mcg/actuation inhaler Take 2 puffs every 4 hrs as needed 1 Inhaler 0 08/08/2012 Active Comment on above: Take 2 puffs every 4 hrs as needed amoxicillin 875 mg / clavulanate 125 mg oral tablet (2 sources) Penicillin-class Antibacterial Start: 09-20-2024 End: 09-27-2024 take 1 tablet by mouth twice daily amoxicillin-clavul anate potassium (AUGMENTIN) 875-125 mg per tablet Indications: UTI (urinary tract infection) in , antepartum (HCC) Take 1 tablet by mouth two times a day for 7 days. 14 tablet 09/20/2024 09/27/2024 Ethinyl Estradiol / norgestimate (2 sources) Progestin, Estrogen Start: 04-09-2023 End: 05-24-2024 take 1 tablet by mouth once daily norgestimate 0.25 mg-ethinyl estradiol 35 mcg (SPRINTEC) 0.25-35 mg-mcg per tablet Take 1 tablet by mouth once daily. 84 tablet 3 04/09/2023 05/24/2024 Discontinued (Discontinued by Patient) Start: 04-09-2023 take 1 tablet by [facility] once daily norgestimate 0.25 mg-ethinyl estradiol 35 mcg (SPRINTEC) 0.25-35 mg-mcg per tablet Take 1 tablet by mouth once daily. 84 tablet 3 04/09/2023 Active fluticasone propionate 0.05 mg/actuat metered dose nasal spray (1 source) Corticosteroid Start: 08-08-2012 take 2 spray(s) nasal route once daily at bedtime fluticasone 50 mcg/actuation nasal spray Use 2 Sprays in each nostril daily at bedtime. 1 Bottle 0 08/08/2012 Active Comment on above: Use 2 Sprays in each nostril daily at bedtime. hydrOXYzine hydrochloride 25 mg oral tablet (2 sources) Antihistamine End: 06-07-2024 take 1 tablet by mouth every eight hours as needed hydrOXYzine HCl (ATARAX) 25 mg tablet Take 25 mg by mouth three times a day as needed for anxiety. 06/07/2024 Discontinued Traaxpwn-Jy-Bwd-Fe- FA ( VITAMIN) tab (9 sources) take 1 tablet by mouth once Qhhgxopo-Ub-Ptf-Fe -FA ( VITAMIN) tab Take 1 tablet by mouth. 0 Active Comment on above: Take 1 tablet by julisa th. Problems Active Problems Problem Classification Problem Date Documented Date Episodic/Chronic Anxiety disorders (20 sources) Generalized anxiety disorder; Translations: [Generalized anxiety disorder] 06-07-2024 Chronic Contraceptive and procreative management (3 sources) Oral contraception; Translations: [Encounter for surveillance of contraceptive pills] Episodic Esophageal disorders (1 source) Gastro-esophageal reflux disease without esophagitis; Translations: [Gastroesophageal reflux disease, unspecified whether esophagitis present] Onset: 11-08-2024 Chronic Genitourinary symptoms and ill-defined conditions (1 source) Bacteriuria; Translations: [Bacteriuria] 07-08-2024 Episodic Hemorrhage during ; abruptio placenta; placenta previa (1 source) Threatened miscarriage; Translations: [Threatened miscarriage] Episodic Hypertension complicating ; childbirth and the puerperium (20 sources) Pre-existing hypertension in obstetric context; Translations: [Unspecified pre-existing hypertension complicating , unspecified trimester] Onset: 09-03-2024 09-03-2024 Chronic Malaise and fatigue (1 source) Malaise and fatigue; Translations: [Other malaise] Episodic Menstrual disorders (1 source) Missed period; Translations: [Irregular menstruation, unspecified] 05-24-2024 Chronic Other complications of (20 sources) Maternal obesity complicating , childbirth and the puerperium, antepartum; Translations: [Obesity complicating , second trimester] Onset: 09-13-2020 Resolved: 02-20-2021 02-20-2021 Chronic Other complications of (5 sources) Anemia in mother complicating , childbirth AND/OR puerperium; Translations: [Anemia complicating , third trimester] Onset: 11-15-2020 5 Chronic Other complications of (1 source) Anemia complicating , third trimester; Translations: [Antepartum anemia complicating in third trimester (HCC)] Onset: 10-27-2024 Chronic Other complications of (1 source) Obesity complicating , unspecified trimester; Translations: [Obesity in (HCC)] Onset: 09-03-2024 Chronic Other complications of (1 source) Obesity complicating , second trimester; Translations: [Obesity affecting in second trimester, unspecified obesity type (HCC)] Onset: 09-03-2024 Chronic Other complications of (20 sources) High risk ; Translations: [Supervision of high risk , unspecified, third trimester] Onset: 09-13-2020 Resolved: 02-20-2021 02-20-2021 Episodic Other complications of (1 source) Supervision of high risk , unspecified, unspecified trimester; Translations: [, supervision, high-risk, unspecified trimester (HCC)] Onset: 10-27-2024 Episodic Other complications of (1 source) Supervision of high risk , unspecified, second trimester; Translations: [Supervision of high risk in second trimester (HCC)] Onset: 11-08-2024 Episodic Other complications of (1 source) Unspecified infection of urinary tract in , unspecified trimester; Translations: [UTI (urinary tract infection) in , antepartum (HCC)] Onset: 10-27-2024 Episodic Other nutritional; endocrine; and metabolic disorders (20 sources) Body mass index 30+ - obesity; Translations: [Body mass index (BMI) 38.0-38.9, adult] Onset: 06-07-2024 06-07-2024 Chronic Other nutritional; endocrine; and metabolic disorders (1 source) Body mass index (BMI) 38.0-38.9, adult; Translations: [BMI 38.0-38.9,adult] Onset: 06-07-2024 Chronic Other screening for suspected conditions (not mental disorders or infectious disease) (5 sources) Cancer cervix screening status; Translations: [Encounter for screening for malignant neoplasm of cervix] Onset: 06-07-2024 06-07-2024 Episodic Residual codes; unclassified (1 source) Gestation period, 6 weeks; Translations: [Less than 8 weeks gestation of ] 05-24-2024 Episodic Residual codes; unclassified (5 sources) Gestation period, 8 weeks; Translations: [8 weeks gestation of ] 06-07-2024 Episodic Residual codes; unclassified (1 source) Gestation period, 12 weeks; Translations: [12 weeks gestation of ] 07-05-2024 Episodic Residual codes; unclassified (1 source) Gestation period, 16 weeks; Translations: [16 weeks gestation of ] 08-02-2024 Episodic Residual codes; unclassified (2 sources) Gestation period, 21 weeks; Translations: [21 weeks gestation of ] 09-03-2024 Episodic Residual codes; unclassified (1 source) Gestation period, 24 weeks; Translations: [24 weeks gestation of ] 09-27-2024 Episodic Residual codes; unclassified (2 sources) Gestation period, 28 weeks; Translations: [28 weeks gestation of ] 10-25-2024 Episodic Residual codes; unclassified (1 source) 30 weeks gestation of ; Translations: [30 weeks gestation of (HCC)] Onset: 11-08-2024 Episodic Residual codes; unclassified (1 source) 28 weeks gestation of ; Translations: [28 weeks gestation of (HCC)] Onset: 10-25-2024 Episodic Residual codes; unclassified (1 source) 24 weeks gestation of ; Translations: [24 weeks gestation of (HCC)] Onset: 09-27-2024 Episodic Residual codes; unclassified (1 source) 21 weeks gestation of ; Translations: [21 weeks gestation of (HCC)] Onset: 09-03-2024 Episodic Residual codes; unclassified (1 source) Gestation period, 33 weeks; Translations: [33 weeks gestation of ] 11-29-2024 Episodic Unclassified (20 sources) [facility] - [facility] Onset: 06-07-2024 06-07-2024 Unclassified (20 sources) Education - [place] Onset: 06-07-2024 06-07-2024 Past or Other Problems Problem Classification Problem Date Documented Date Episodic/Chronic Immunizations and screening for infectious disease (4 sources) Patient encounter status; Translations: [Encounter for screening for infections with a predominantly sexual mode of transmission] Onset: 06-07-2024 06-07-2024 Episodic Nausea and vomiting (20 sources) Nausea; Translations: [Nausea] Onset: 05-24-2024 Resolved: 10-27-2024 05-24-2024 Episodic Other circulatory disease (20 sources) History of pre-eclampsia; Translations: [Personal history of other diseases of the circulatory system] Onset: 06-07-2024 06-07-2024 Episodic Other circulatory disease (1 source) Personal history of other diseases of the circulatory system; Translations: [History of pre-eclampsia] Onset: 06-07-2024 Episodic Other complications of (20 sources) Obesity; Translations: [Obesity complicating , unspecified trimester] Onset: 06-08-2020 Resolved: 10-27-2024 02-20-2021 Chronic Other complications of (19 sources) Anemia of ; Translations: [Anemia complicating , third trimester] Onset: 11-15-2020 Resolved: 02-20-2021 02-20-2021 Chronic Other complications of (20 sources) Spotting per vagina in ; Translations: [Spotting complicating , unspecified trimester] Onset: 06-08-2020 Resolved: 10-27-2024 07-19-2020 Episodic Other complications of (20 sources) Vomiting of , unspecified; Translations: [Unspecified vomiting of , unspecified as to episode of care or not applicable] Onset: 06-08-2020 Resolved: 09-13-2020 09-13-2020 Episodic Other complications of (20 sources) Abnormal placenta affecting management of mother; Translations: [Other malformation of placenta, unspecified trimester] Onset: 09-13-2020 Resolved: 02-20-2021 02-20-2021 Episodic Other complications of (20 sources) Urinary tract infection in ; Translations: [Unspecified infection of urinary tract in , unspecified trimester] Onset: 06-09-2024 06-09-2024 Episodic Other hematologic conditions (20 sources) History of anemia; Translations: [Personal history of diseases of the blood and blood-forming organs and certain disorders involving the immune mechanism] Onset: 06-07-2024 06-07-2024 Episodic Other and delivery including normal (2 sources) with uncertain dates; Translations: [Encounter for supervision of normal , unspecified, unspecified trimester] Onset: 06-07-2024 06-07-2024 Episodic Residual codes; unclassified (1 source) Personal history of other complications of , childbirth and the puerperium; Translations: [History of pre-eclampsia] Onset: 06-07-2024 Episodic Residual codes; unclassified (1 source) 16 weeks gestation of ; Translations: [16 weeks gestation of ([facility])] Onset: 08-02-2024 Episodic Residual codes; unclassified (2 sources) 8 weeks gestation of ; Translations: [8 weeks gestation of ([facility])] Onset: 06-07-2024 Episodic Screening and history of mental health and substance abuse codes (20 sources) H/O: anxiety state; Translations: [Personal history of other mental and behavioral disorders] Onset: 06-08-2020 Resolved: 10-27-2024 06-08-2020 Episodic Results Test Name Value Interpretation Reference Range Facil ity CBC W Auto Differential pane l (Bld)on 11-26-2024 Basophils (Bld) [#/Vol] 0.03 10*3/uL Normal <0.11 [facility] Comment on above: Order Comment: Speci men Type: BLOOD SPECIMEN Ordering Facility: [facility] Address: [address] [place] [address] Performed By: #### 2 4323-8 #### [facility] CLIA [id number] [address] [place] Basophils/100 WBC (Bld) 0.2 % Normal [facility] Comment on above: Order Comment: Speci men Type: BLOOD SPECIMEN Ordering Facility: [facility] Address: [address] [place] [address] Performed By: #### 2 4323-8 #### [facility] CLIA [id number] [address] [place] [address] [place] Differential cell count method Nom (Bld) Auto Normal [facility] Comment on above: Order Comment: Speci men Type: BLOOD SPECIMEN Ordering Facility: [facility] Address: [address] [place] [address] Performed By: #### 2 4323-8 #### [facility] CLIA [id number] [address] [place] Eosinophils (Bld) [#/Vol] 0.07 10*3/uL Normal <0.46 [facility] Comment on above: Order Comment: Speci men Type: BLOOD SPECIMEN Ordering Facility: [facility] Address: [address] [place] [address] Performed By: #### 2 4323-8 #### [facility] CLIA [id number] [address] [place] Eosinophils/100 WBC (Bld) 0.6 % Normal [facility] Comment on above: Order Comment: Speci men Type: BLOOD SPECIMEN Ordering Facility: [facility] Address: [address] [place] [address] Performed By: #### 2 4323-8 #### [facility] CLIA [id number] [address] Erythrocyte distribution width (RBC) [Ratio] 13.0 % Normal 11.5-15.0 [facility] Comment on above: Order Comment: Speci men Type: BLOOD SPECIMEN Ordering Facility: [facility] Address: [address] [place] [address] Performed By: #### 2 4323-8 #### [facility] CLIA [id number] [address] [place] Hematocrit (Bld) [Volume fraction] 32.7 % Low 36.0-46.0 [facility] Comment on above: Order Comment: Speci men Type: BLOOD SPECIMEN Ordering Facility: [facility] Address: [address] [place] [address] Performed By: #### 2 4323-8 #### [facility] CLIA [id number] [address] [place] Hemoglobin (Bld) [Mass/Vol] 11.0 g/dL Low 11.5-15.5 [facility] Comment on above: Order Comment: Speci men Type: BLOOD SPECIMEN Ordering Facility: [facility] Address: [address] [place] [address] Performed By: #### 2 4323-8 #### [facility] CLIA [id number] [address] [place] Immature granulocytes (Bld) [#/Vol] 0.08 10*3/uL Normal <0.10 [facility] Comment on above: Order Comment: Speci men Type: BLOOD SPECIMEN Ordering Facility: [facility] Address: [address] [place] [address] Performed By: #### 2 4323-8 #### [facility] CLIA [id number] [address] OF [facility] Immature granulocytes/100 WBC (Bld) 0.7 % Normal [facility] Comment on above: Order Comment: Speci men Type: BLOOD SPECIMEN Ordering Facility: [facility] Address: [address] [place] [address] Performed By: #### 2 4323-8 #### [facility] CLIA [id number] [address] [place] Lymphocytes (Bld) [#/Vol] 2.15 10*3/uL Normal 1.00-4.00 [facility] Comment on above: Order Comment: Speci men Type: BLOOD SPECIMEN Ordering Facility: [facility] Address: [address] [place] [address] Performed By: #### 2 4323-8 #### [facility] CLIA [id number] [address] [place] Lymphocytes/100 WBC (Bld) 17.7 % Normal [facility] Comment on above: Order Comment: Speci men Type: BLOOD SPECIMEN Ordering Facility: [facility] Address: [address] [place] [address] Performed By: #### 2 4323-8 #### [facility] CLIA [id number] [address] [place] MCH (RBC) [Entitic mass] 30.6 pg Normal 26.0-34.0 [facility] Comment on above: Order Comment: Speci men Type: BLOOD SPECIMEN Ordering Facility: [facility] Address: [address] [place] [address] Performed By: #### 2 4323-8 #### [facility] CLIA [id number] [address] MCHC (RBC) [Mass/Vol] 33.6 g/dL Normal 30.5-36.0 [facility] Comment on above: Order Comment: Speci men Type: BLOOD SPECIMEN Ordering Facility: [facility] Address: [address] [place] [address] Performed By: #### 2 4323-8 #### [facility] CLIA [id number] [address] MCV (RBC) [Entitic vol] 90.8 fL Normal 80.0-100.0 [facility] Comment on above: Order Comment: Speci men Type: BLOOD SPECIMEN Ordering Facility: [facility] Address: [address] [place] [address] Performed By: #### 2 4323-8 #### [facility] CLIA [id number] [address] [place] Monocytes (Bld) [#/Vol] 0.69 10*3/uL Normal <0.87 [facility] Comment on above: Order Comment: Speci men Type: BLOOD SPECIMEN Ordering Facility: [facility] Address: [address] [place] [address] Performed By: #### 2 4323-8 #### [facility] CLIA [id number] [address] Monocytes/100 WBC (Bld) 5.7 % Normal [facility] Comment on above: Order Comment: Speci men Type: BLOOD SPECIMEN Ordering Facility: [facility] Address: [address] [place] [address] Performed By: #### 2 4323-8 #### [facility] CLIA [id number] [address] [place] Neutrophils (Bld) [#/Vol] 9.16 10*3/uL High 1.45-7.50 [facility] Comment on above: Order Comment: Speci men Type: BLOOD SPECIMEN Ordering Facility: [facility] Address: [address] [place] [address] Performed By: #### 2 4323-8 #### [facility] CLIA [id number] [address] Neutrophils/100 WBC (Bld) 75.1 % Normal [facility] Comment on above: Order Comment: Speci men Type: BLOOD SPECIMEN Ordering Facility: [facility] Address: [address] [place] [address] Performed By: #### 2 4323-8 #### [facility] CLIA [id number] [address] [place] Nucleated RBC (Bld) [#/Vol] 10*3/uL Normal <0.01 [facility] Comment on above: Order Comment: Speci men Type: BLOOD SPECIMEN Ordering Facility: [facility] Address: [address] [place] [address] Performed By: #### 2 4323-8 #### [facility] CLIA [id number] [address] Nucleated RBC/100 WBC (Bld) [Ratio] 0.0 /100 WBC Normal [facility] Comment on above: Order Comment: Speci men Type: BLOOD SPECIMEN Ordering Facility: [facility] Address: [address] [place] [address] Performed By: #### 2 4323-8 #### [facility] CLIA [id number] [address] [place] Platelet mean volume (Bld) [Entitic vol] 11.1 fL Normal 9.0-12.7 [facility] Comment on above: Order Comment: Speci men Type: BLOOD SPECIMEN Ordering Facility: [facility] Address: [address] [place] [address] Performed By: #### 2 4323-8 #### [facility] CLIA [id number] [address] [place] Platelets (Bld) [#/Vol] 223 10*3/uL Normal 150-400 [facility] Comment on above: Order Comment: Katlini galdino Type: BLOOD SPECIMEN Ordering Facility: [facility] Address: [address] [place] [address] Performed By: #### 2 4323-8 #### [facility] CLIA [id number] [address] OF [facility] RBC (Bld) [#/Vol] 3.60 10*6/uL Low 3.90-5.20 [facility] Comment on above: Order Comment: Speci men Type: BLOOD SPECIMEN Ordering Facility: [facility] Address: [address] [place] [address] Performed By: #### 2 4323-8 #### [facility] CLIA [id number] [address] WBC (Bld) [#/Vol] 12.18 10*3/uL High 3.70-11.00 [facility] Comment on above: Order Comment: Katlini galdino Type: BLOOD SPECIMEN Ordering Facility: [facility] Address: [address] [place] [address] Performed By: #### 2 4323-8 #### [facility] CLIA [id number] [address] Examination level ultrasound on 11-26-[address] [facility] Radiology Study observation (narrative) [facility] Bacteria Ur Culton 5 Bacteria identified Cx Nom (U) ORGANISM ID: 1 >=100,000 CFU/ml Escherichia coli ORGANISM ID: 1 (ESCHERICHIA COLI) -- ANTIBIOTIC INTERPRETATION CELESTINO STATUS REFERENCE RANGE -- Ampicillin I 16 F Susceptible <=8 , Intermediate >8 , Resistant >16 Cefazolin S 8 F Susceptible 0-16 , Intermediate <0 or >16 , Resistant >16 For uncomplicated urinary tract infections, cefazolin results can be used to predict susceptibility or resistance to cephalexin. Ceftriaxone S <=1 F Susceptible <=1 , Intermediate >1 , Resistant >=4 Cefepime S <=1 F Susceptible <=2 , Susceptible-Dose Dependent >2 , Resistant >=16 Ertapenem S <=0.5 F Susceptible <=0.5 , Intermediate >.5 , Resistant >1 Meropenem S <=0.25 F Susceptible <=1 , Intermediate >1 , Resistant >2 Ampicillin/Sulbact S 4 F Susceptible <=8 , Intermediate >8 , Resistant >16 Piperacillin/Tazobac S <=4 F Susceptible <16 , Susceptible-Dose Dependent >=16 , Resistant >=32 Gentamicin S <=1 F Susceptible <=2 , Intermediate >2 , Resistant >=8 Tobramycin S <=1 F Susceptible <4 , Intermediate >=4 , Resistant >=8 Trimeth sulfameth S <=20 F Susceptible <=40 , Resistant >40 Ciprofloxacin S <=0.25 F Susceptible <0.5 , Intermediate >=.5 , Resistant >=1 Nitrofurantoin S 32 F Susceptible <=32 , Intermediate >32 , Resistant >64 Abnormal [facility] Comment on above: Performed By: #### 5 0190-8, 2276-4 #### [facility] CLIA [id number] [address] [place] [address] [place] Demario 10-29-2024 DIMITRIOS Telephone (OBGYWM) HILLARY FRAIRE ([id number]) 1990 F Date Time Provider Department 10/29/24 KELLY BALTAZAR During your visit today, we recorded the following information about you: Karina Severino, HAL 10/29/2024 10:35 AM Signed Breast pump order received from [address] [place] [address] Way. To SW to sign. HAL Young Tara, RN 10/29/2024 3:26 PM Signed Faxed. Staci Ho RN Allergies As of Date: 10/29/2024 (No Known Allergies) Date Reviewed: 10/25/2024 Reviewed by: Lizzie Kern MA - Fully Assessed Reason for Visit: Breast Pump [Other] Prescriptions as of 10/29/2024 - nitrofurantoin monohydrate and macrocrystal (MACROBID) 100 mg capsule Take 1 capsule by mouth two times a day for 7 days. - aspirin, enteric coated (ECOTRIN LOW STRENGTH) 81 mg EC tablet Take 1 tablet by mouth once daily. - vit/iron fum/folic ac ( 1 + 1 ORAL) Take by mouth once daily. Problem List As Of Date 10/29/2024 Noted Resolved Spotting in early (HCC) [O26.859] 06/08/2020 10/27/2024 Obesity in (HCC) [O99.210] 06/08/2020 10/27/2024 Nausea and vomiting during [O21.9] 06/08/2020 09/13/2020 History of anxiety [Z86.59] 06/08/2020 10/27/2024 Patient request for diagnostic testing [Z01.89] 06/08/2020 07/19/2020 , supervision, high-risk, unspecified *09/13/2020 Marginal insertion of umbilical cord affecting *09/13/2020 02/20/2021 Obesity affecting in first trimester *09/13/2020 Antepartum anemia complicating in thi*11/15/2020 COVID-19 vaccine series declined [Z28.21, Z28.3*12/13/2020 10/27/2024 Nausea [R11.0] 05/24/2024 10/27/2024 History of pre-eclampsia [Z86.79, Z8*06/07/2024 BMI 38.0-38.9,adult [Z68.38] 06/07/2024 History of anemia [Z86.2] 06/07/2024 Generalized anxiety disorder [F41.1] UTI (urinary tract infection) in , ant*06/09/2024 Chronic hypertension in (HCC) [O10.91*09/03/2024 Medications Discontinued During This Encounter Prescriptions - nitrofurantoin monohydrate and macrocrystal (MACROBID) 100 mg capsule (Discontinued) Take 1 capsule by mouth once daily. Start prophylaxis after initial one week BID regimen is completed. Encounter Status:Closed by STACI HO on 10/29/[address] [facility] Bacteria Ur Culton Bacteria identified Cx Nom (U) CULTURE, URINE: Mixed microbiota, including predominantly: ORGANISM ID: 1 50,000-<100,000 CFU/ml Escherichia coli ORGANISM ID: 1 (ESCHERICHIA COLI) -- ANTIBIOTIC INTERPRETATION CELESTINO STATUS REFERENCE RANGE -- Ampicillin R >=32 F Susceptible <=8 , Intermediate >8 , Resistant >16 Cefazolin R >=64 F Susceptible 0-16 , Intermediate <0 or >16 , Resistant >16 For uncomplicated urinary tract infections, cefazolin results can be used to predict susceptibility or resistance to cephalexin. Ceftriaxone S <=1 F Susceptible <=1 , Intermediate >1 , Resistant >=4 Cefepime S <=1 F Susceptible <=2 , Susceptible-Dose Dependent >2 , Resistant >=16 Ertapenem S <=0.5 F Susceptible <=0.5 , Intermediate >.5 , Resistant >1 Meropenem S <=0.25 F Susceptible <=1 , Intermediate >1 , Resistant >2 Ampicillin/Sulbact S 4 F Susceptible <=8 , Intermediate >8 , Resistant >16 Piperacillin/Tazobac S <=4 F Susceptible <16 , Susceptible-Dose Dependent >=16 , Resistant >=32 Gentamicin S <=1 F Susceptible <=2 , Intermediate >2 , Resistant >=8 Tobramycin S <=1 F Susceptible <4 , Intermediate >=4 , Resistant >=8 Trimeth sulfameth S <=20 F Susceptible <=40 , Resistant >40 Ciprofloxacin S <=0.25 F Susceptible <0.5 , Intermediate >=.5 , Resistant >=1 Nitrofurantoin S <=16 F Susceptible <=32 , Intermediate >32 , Resistant >64 Abnormal [facility] Comment on above: Performed By: #### 5 0190-8, 2276-4 #### [facility] CLIA [id number] [address] [place] [address] [place] CBC W Auto Differential pane l (Bld)on 10-25-2024 Basophils (Bld) [#/Vol] 10*3/uL Normal <0.11 [facility] Comment on above: Order Comment: Speci men Type: BLOOD SPECIMEN Ordering Facility: [facility] Address: [address] [place] [address] Performed By: #### 2 4323-8 #### [facility] CLIA [id number] [address] [place] [address] [place] Basophils/100 WBC (Bld) 0.2 % Normal [facility] Comment on above: Order Comment: Speci men Type: BLOOD SPECIMEN Ordering Facility: [facility] Address: [address] [place] [address] Performed By: #### 2 4323-8 #### [facility] CLIA [id number] [address] Differential cell count method Nom (Bld) Auto Normal [facility] Comment on above: Order Comment: Speci men Type: BLOOD SPECIMEN Ordering Facility: [facility] Address: [address] [place] [address] Performed By: #### 2 4323-8 #### [facility] CLIA [id number] [address] OF [facility] Eosinophils (Bld) [#/Vol] 0.05 10*3/uL Normal <0.46 [facility] Comment on above: Order Comment: Speci men Type: BLOOD SPECIMEN Ordering Facility: [facility] Address: [address] [place] [address] Performed By: #### 2 4323-8 #### [facility] CLIA [id number] [address] Eosinophils/100 WBC (Bld) 0.4 % Normal [facility] Comment on above: Order Comment: Speci men Type: BLOOD SPECIMEN Ordering Facility: [facility] Address: [address] [place] [address] Performed By: #### 2 4323-8 #### [facility] CLIA [id number] [address] [place] Erythrocyte distribution width (RBC) [Ratio] 12.7 % Normal 11.5-15.0 [facility] Comment on above: Order Comment: Speci men Type: BLOOD SPECIMEN Ordering Facility: [facility] Address: [address] [place] [address] Performed By: #### 2 4323-8 #### [facility] CLIA [id number] [address] Hematocrit (Bld) [Volume fraction] 32.0 % Low 36.0-46.0 [facility] Comment on above: Order Comment: Speci men Type: BLOOD SPECIMEN Ordering Facility: [facility] Address: [address] [place] [address] Performed By: #### 2 4323-8 #### [facility] CLIA [id number] [address] [place] Hemoglobin (Bld) [Mass/Vol] 10.8 g/dL Low 11.5-15.5 [facility] Comment on above: Order Comment: Speci men Type: BLOOD SPECIMEN Ordering Facility: [facility] Address: [address] [place] [address] Performed By: #### 2 4323-8 #### [facility] CLIA [id number] [address] [place] [address] [place] Immature granulocytes (Bld) [#/Vol] 0.06 10*3/uL Normal <0.10 [facility] Comment on above: Order Comment: Speci men Type: BLOOD SPECIMEN Ordering Facility: [facility] Address: [address] [place] [address] Performed By: #### 2 4323-8 #### [facility] CLIA [id number] [address] [place] Immature granulocytes/100 WBC (Bld) 0.5 % Normal [facility] Comment on above: Order Comment: Speci men Type: BLOOD SPECIMEN Ordering Facility: [facility] Address: [address] [place] [address] Performed By: #### 2 4323-8 #### [facility] CLIA [id number] [address] [place] [address] [place] Lymphocytes (Bld) [#/Vol] 2.11 10*3/uL Normal 1.00-4.00 [facility] Comment on above: Order Comment: Speci men Type: BLOOD SPECIMEN Ordering Facility: [facility] Address: [address] [place] [address] Performed By: #### 2 4323-8 #### [facility] CLIA [id number] [address] [place] Lymphocytes/100 WBC (Bld) 17.1 % Normal [facility] Comment on above: Order Comment: Speci men Type: BLOOD SPECIMEN Ordering Facility: [facility] Address: [address] [place] [address] Performed By: #### 2 4323-8 #### [facility] CLIA [id number] [address] MCH (RBC) [Entitic mass] 30.3 pg Normal 26.0-34.0 [facility] Comment on above: Order Comment: Speci men Type: BLOOD SPECIMEN Ordering Facility: [facility] Address: [address] [place] [address] Performed By: #### 2 4323-8 #### [facility] CLIA [id number] [address] MCHC (RBC) [Mass/Vol] 33.8 g/dL Normal 30.5-36.0 [facility] Comment on above: Order Comment: Speci men Type: BLOOD SPECIMEN Ordering Facility: [facility] Address: [address] [place] [address] Performed By: #### 2 4323-8 #### [facility] CLIA [id number] [address] MCV (RBC) [Entitic vol] 89.9 fL Normal 80.0-100.0 [facility] Comment on above: Order Comment: Speci men Type: BLOOD SPECIMEN Ordering Facility: [facility] Address: [address] [place] [address] Performed By: #### 2 4323-8 #### [facility] CLIA [id number] [address] Monocytes (Bld) [#/Vol] 0.59 10*3/uL Normal <0.87 [facility] Comment on above: Order Comment: Speci men Type: BLOOD SPECIMEN Ordering Facility: [facility] Address: [address] [place] [address] Performed By: #### 2 4323-8 #### [facility] CLIA [id number] [address] Monocytes/100 WBC (Bld) 4.8 % Normal [facility] Comment on above: Order Comment: Speci men Type: BLOOD SPECIMEN Ordering Facility: [facility] Address: [address] [place] [address] Performed By: #### 2 4323-8 #### [facility] CLIA [id number] [address] [place] Neutrophils (Bld) [#/Vol] 9.50 10*3/uL High 1.45-7.50 [facility] Comment on above: Order Comment: Speci men Type: BLOOD SPECIMEN Ordering Facility: [facility] Address: [address] [place] [address] Performed By: #### 2 432-8 #### [facility] CLIA [id number] [address] [place] Neutrophils/100 WBC (Bld) 77.0 % Normal [facility] Comment on above: Order Comment: Speci men Type: BLOOD SPECIMEN Ordering Facility: [facility] Address: [address] [place] [address] Performed By: #### 2 4323-8 #### [facility] CLIA [id number] [address] [place] Nucleated RBC (Bld) [#/Vol] 10*3/uL Normal <0.01 [facility] Comment on above: Order Comment: Speci men Type: BLOOD SPECIMEN Ordering Facility: [facility] Address: [address] [place] [address] Performed By: #### 2 4323-8 #### [facility] CLIA [id number] [address] [place] Nucleated RBC/100 WBC (Bld) [Ratio] 0.0 /100 WBC Normal [facility] Comment on above: Order Comment: Speci men Type: BLOOD SPECIMEN Ordering Facility: [facility] Address: [address] [place] [address] Performed By: #### 2 4323-8 #### [facility] CLIA [id number] [address] [place] Platelet mean volume (Bld) [Entitic vol] 11.5 fL Normal 9.0-12.7 [facility] Comment on above: Order Comment: Speci men Type: BLOOD SPECIMEN Ordering Facility: [facility] Address: [address] [place] [address] Performed By: #### 2 4323-8 #### [facility] CLIA [id number] [address] [place] Platelets (Bld) [#/Vol] 223 10*3/uL Normal 150-400 [facility] Comment on above: Order Comment: Speci men Type: BLOOD SPECIMEN Ordering Facility: [facility] Address: [address] [place] [address] Performed By: #### 2 4323-8 #### [facility] CLIA [id number] [address] [place] RBC (Bld) [#/Vol] 3.56 10*6/uL Low 3.90-5.20 [facility] Comment on above: Order Comment: Speci men Type: BLOOD SPECIMEN Ordering Facility: [facility] Address: [address] [place] [address] Performed By: #### 2 4323-8 #### [facility] CLIA [id number] [address] [place] WBC (Bld) [#/Vol] 12.33 10*3/uL High 3.70-11.00 [facility] Comment on above: Order Comment: Speci men Type: BLOOD SPECIMEN Ordering Facility: [facility] Address: [address] [place] [address] Performed By: #### 2 4323-8 #### [facility] CLIA [id number] [address] [place] Examination level ultrasound on 10-25-[address] [facility] Radiology Study observation (narrative) [facility] Ferritin SerPl-mCncon 2024 Ferritin [Mass/Vol] 31.2 ng/mL Normal 14.7-205.1 [facility] Comment on above: Order Comment: Speci men Type: BLOOD SPECIMEN Ordering Facility: [facility] Address: [address] [place] [address] Performed By: #### 5 0190-8, 2275-07 #### [facility] CLIA [id number] [address] [place] [address] [place] GESTATIONAL GLUCOSE SCREEN, 1-HOUR, 50 GRAM, NON-FASTINGon 10-25-2024 Glucose [Mass/Vol] 120 mg/dL Normal 74-134 [facility] Comment on above: Order Comment: Speci men Type: BLOOD SPECIMEN Ordering Facility: [facility] Address: [address] [place] [address] Result Comment: [facility] Congress of Obstetricians and [employer]necologists (Piotr/Primo) guidelines state a gestational diabetes mellitus positive screen is made, in women not previously diagnosed with overt diabetes, when the 1 hr plasma glucose level is equal to or above 140 mg/dL. The [facility] [employer] [facility] [place] recommends a 135 mg/dL cutoff. Performed By: #### 2 4323-8 #### [facility] CLIA [id number] [address] [place] [address] [place] Iron and Iron binding capaci ty panelon 10-25-2024 Iron [Mass/Vol] 41 ug/dL Normal 41-186 [facility] Comment on above: Order Comment: Speci men Type: BLOOD SPECIMEN Ordering Facility: [facility] Address: [address] [place] [address] Performed By: #### 5 0190-8, 2275-07 #### [facility] CLIA [id number] [address] [place], [place] [id number] [place] Iron binding capacity [Mass/Vol] 453 ug/dL High 232-386 [facility] Comment on above: Order Comment: Speci men Type: BLOOD SPECIMEN Ordering Facility: [facility] Address: [address] [place] [address] Performed By: #### 5 0190-8, 2275-07 #### [facility] CLIA [id number] [address] [place] [address] [place] Iron/TIBC [Molar ratio] 9.1 % Low 15.0-57.0 [facility] Comment on above: Order Comment: Speci men Type: BLOOD SPECIMEN Ordering Facility: [facility] Address: [address] [place] [address] Performed By: #### 5 0190-8, 6-4 #### [facility] CLIA [id number] [address] [place] [address] [place] Reagin and Treponema pallidu m IgG and IgM [Interp]on 10-25-2024 T. pallidum IgG+IgM IA Ql (S) Non-Reactive Normal Nonreactive [facility] Comment on above: Order Comment: Speci men Type: BLOOD SPECIMEN Ordering Facility: [facility] Address: [address] [place] [address] Performed By: #### 5 0190-8, 2275-4 #### [facility] CLIA [id number] [address] [place] [address] [place] Reagin+T pallidum IgG+IgM Se rPl-Impon 10-25-2024 Reagin and Treponema pallidum IgG and IgM [Interp] Cannot exclude recent Treponemal infection if specimen collected within 7-10 days after appearance of suspect lesions or 2-3 weeks after an exposure. Clinical correlation is required. Normal [facility] Comment on above: Order Comment: Speci men Type: BLOOD SPECIMEN Ordering Facility: [facility] Address: [address] [place] [address] Performed By: #### 5 0190-8, 6-4 #### [facility] CLIA [id number] [address] [place] [address] [place] Bacteria Ur Culton 5 Bacteria identified Cx Nom (U) CULTURE, URINE: Mixed microbiota, including predominantly: ORGANISM ID: 1 50,000-<100,000 CFU/ml Escherichia coli ORGANISM ID: 1 (ESCHERICHIA COLI) -- ANTIBIOTIC INTERPRETATION CELESTINO STATUS REFERENCE RANGE -- Ampicillin I 16 F Susceptible <=8 , Intermediate >8 , Resistant >16 Cefazolin R >=64 F Susceptible 0-16 , Intermediate <0 or >16 , Resistant >16 For uncomplicated urinary tract infections, cefazolin results can be used to predict susceptibility or resistance to cephalexin. Ceftriaxone S <=1 F Susceptible <=1 , Intermediate >1 , Resistant >=4 Cefepime S <=1 F Susceptible <=2 , Susceptible-Dose Dependent >2 , Resistant >=16 Ertapenem S <=0.5 F Susceptible <=0.5 , Intermediate >.5 , Resistant >1 Meropenem S <=0.25 F Susceptible <=1 , Intermediate >1 , Resistant >2 Ampicillin/Sulbact S 4 F Susceptible <=8 , Intermediate >8 , Resistant >16 Piperacillin/Tazobac S <=4 F Susceptible <16 , Susceptible-Dose Dependent >=16 , Resistant >=32 Gentamicin S <=1 F Susceptible <=2 , Intermediate >2 , Resistant >=8 Tobramycin S <=1 F Susceptible <4 , Intermediate >=4 , Resistant >=8 Trimeth sulfameth S <=20 F Susceptible <=40 , Resistant >40 Ciprofloxacin S <=0.25 F Susceptible <0.5 , Intermediate >=.5 , Resistant >=1 Nitrofurantoin S <=16 F Susceptible <=32 , Intermediate >32 , Resistant >64 Abnormal [facility] Comment on above: Performed By: #### 5 0190-8, 2276-4 #### [facility] CLIA [id number] [address] [place] [address] [place] Examination level ultrasound on 09-05-2024 Indication Detailed anatomic survey Maternal obesity, BMI >35 Impression REMOTE READ: The patient is referred for a detailed anatomic survey. - Single, live, intrauterine . - biometry is consistent with the established gestational age. - No malformations were visualized on a detailed anatomic survey, although some anatomical structures were suboptimally seen as detailed below. - The amniotic fluid volume is normal amount. - The placenta is anterior, fundal. - The Transabdominal cervical length measures 40.3 mm with no evidence of funneling or other dynamic changes. - Not all structural malformations can be detected by ultrasound examination. Recommendations - Completion of anatomy in 2-3 weeks - Additional follow up as clinically indicated. Maternal Assessment Height 183 cm Height (ft) 6 ft Physical Exam Initial weight (lb) 284 lb Initial BMI 38.52 kg/m Maternal assessment other: 2 Para 1 REMOTE READ Method Transabdominal ultrasound examination. View: Suboptimal view: limited by position and maternal body habitus Mariano . Number of fetuses: 1 Dating LMP on: 04/09/2024 GA by LMP 21 w + 0 d BRITTANY by LMP: 01/14/2025 GA by prior assessment 21 w + 0 d BRITTANY by prior assessment: 01/14/2025 Ultrasound examination on: 09/03/2024 GA by U/S based upon: AC, BPD, Femur, HC GA by U/S 21 w + 0 d BRITTANY by U/S: 01/14/2025 Assigned: based on stated BRITTANY, selected on 09/03/2024 Assigned GA 21 w + 0 d Assigned BRITTANY: 01/14/2025 General Evaluation Cardiac activity present. FHR 149 bpm. movements: present. Presentation: breech Placenta: Placental site: anterior, fundal Umbilical cord: Cord vessels: 3 vessel cord Amniotic fluid: Amount of AF: normal amount. MVP 3.2 cm Growth Overview Exam date GA BPD (mm) HC (mm) AC (mm) FL (mm) HL (mm) EFW (g) 09/03/2024 21w 0d 48.6 36% 184.2 43% 158.1 41% 35.5 73% 36 89% 392 45% Biometry Standard BPD 48.6 mm 20w 5d 36% Hadlock OFD 66.0 mm 20w 6d 67% Nicolaides HC 184.2 mm 20w 5d 43% Jh Cerebellum tr 22.1 mm 20w 5d 53% Hill Nuchal fold 3.8 mm AC 158.1 mm 21w 0d 41% Hadlock Femur 35.5 mm 21w 3d 73% Jh Humerus 36.0 mm 22w 4d 89% Jh EFW 392 g 20w 6d 45% Hadlock EFW (lb) 0 lb EFW (oz) 14 oz EFW by: Hadlock (HC-AC-FL) Extended Parimutuel Cashier 5.3 mm CM 3.5 mm 6% Nicolaides Extremities / Bony Struc FL / HC 0.19 42% Hadlock Other Structures FHR 149 bpm Anatomy Cranium: normal Lateral ventricles: normal Choroid plexus: normal Midline falx: normal Cavum septi pellucidi: suboptimally visualized Cerebellum: normal Cisterna magna: normal Head / Neck Vermis: suboptimally visualized Neck: normal Nuchal fold: normal Lips: normal Profile: normal Nose: normal Face Maxilla: suboptimally visualized Mandible: suboptimally visualized Orbits: normal Lens: normal 4-chamber view: suboptimally visualized RVOT view: normal LVOT view: normal 3-vessel view: normal 9-ujbdim-hardnat view: normal Heart / Thorax Situs: situs solitus (normal) Aortic arch view: suboptimally visualized SVC: normal IVC: normal Cardiac axis: normal Rt lung: normal Lt lung: normal Diaphragm: normal Cord insertion: normal Stomach: normal Kidneys: normal Bladder: normal Genitals: normal Abdomen Abdom. wall: normal Cervical spine: normal Thoracic spine: normal Lumbar spine: normal Sacral spine: normal Arms: normal Legs: normal Rt upper arm: normal Rt forearm: normal Rt hand: normal Rt fingers: normal Lt upper arm: normal Lt forearm: normal Lt hand: normal Lt fingers: normal Rt upper leg: normal Rt lower leg: normal Rt foot: normal Lt upper leg: normal Lt lower leg: normal Lt foot: normal sex: female Wants to know sex: yes Maternal Structures Uterus / Cervix Uterus: Visualized Cervix: Visualized Approach: Transabdominal Cervical length 40.3 mm Ovaries / Tubes / Adnexa Rt ovary: Visualized Lt ovary: Visualized Performed By: Eden Aly RDMS, RVT Read By: Jessica Banerjee M.D. MATERNAL MEDICINE [facility] Bacteria Ur Culton 5 Bacteria identified Cx Nom (U) ORGANISM ID: 1 >=100,000 CFU/ml Escherichia coli ORGANISM ID: 1 (ESCHERICHIA COLI) -- ANTIBIOTIC INTERPRETATION CELESTINO STATUS REFERENCE RANGE -- Ampicillin I 16 F Susceptible <=8 , Intermediate >8 , Resistant >16 Cefazolin R >=64 F Susceptible 0-16 , Intermediate <0 or >16 , Resistant >16 For uncomplicated urinary tract infections, cefazolin results can be used to predict susceptibility or resistance to cephalexin. Ceftriaxone S <=1 F Susceptible <=1 , Intermediate >1 , Resistant >=4 Cefepime S <=1 F Susceptible <=2 , Susceptible-Dose Dependent >2 , Resistant >=16 Ertapenem S <=0.5 F Susceptible <=0.5 , Intermediate >.5 , Resistant >1 Meropenem S <=0.25 F Susceptible <=1 , Intermediate >1 , Resistant >2 Ampicillin/Sulbact S 4 F Susceptible <=8 , Intermediate >8 , Resistant >16 Piperacillin/Tazobac S <=4 F Susceptible <16 , Susceptible-Dose Dependent >=16 , Resistant >=32 Gentamicin S <=1 F Susceptible <=2 , Intermediate >2 , Resistant >=8 Tobramycin S <=1 F Susceptible <4 , Intermediate >=4 , Resistant >=8 Trimeth sulfameth S <=20 F Susceptible <=40 , Resistant >40 Ciprofloxacin S <=0.25 F Susceptible <0.5 , Intermediate >=.5 , Resistant >=1 Nitrofurantoin S <=16 F Susceptible <=32 , Intermediate >32 , Resistant >64 Abnormal [facility] Comment on above: Performed By: #### 5 0190-8, 2276-4 #### [facility] CLIA [id number] [address] [place] [address] [place] Examination level ultrasound on 09-03-2024 Radiology Study observation (narrative) [facility] UA DIP, URINE (POC)on 2024 BILIRUBIN UA (POCT) Negative Negative [facility] CLARITY UA (POCT) Cloudy [facility] COLOR UA (POCT) Dark yellow [facility] GLUCOSE UA (POCT) Negative Negative mg/dL [facility] Hemoglobin Ql (U) Negative Negative [facility] Interpretation and review of laboratory results Abnormal [facility] KETONE UA (POCT) Negative Negative mg/dL [facility] LEUKOCYTES UA (POCT) Trace Abnormal Negative [facility] NITRITE UA (POCT) Positive Abnormal Negative [facility] PH UA (POCT) 7.5 4.5 - 8.[address] [facility] Protein Ql (U) Negative Negative mg/dL [facility] SPECIFIC GRAVITY UA (POCT) 1.015 1.005 - 1.[address] [facility] UROBILINOGEN UA (POCT) 2 Abnormal Normal E.U./dL [facility] Location:[facility], [address] , [place], [place], [id number] [place] [address] POINT OF CARE [facility] Bacteria Ur Culton 5 Bacteria identified Cx Nom (U) ORGANISM ID: 1 >=100,000 CFU/ml Escherichia coli ORGANISM ID: 1 (ESCHERICHIA COLI) -- ANTIBIOTIC INTERPRETATION CELESTINO STATUS REFERENCE RANGE -- Ampicillin I 16 F Susceptible <=8 , Intermediate >8 , Resistant >16 Cefazolin R >=64 F Susceptible 0-16 , Intermediate <0 or >16 , Resistant >16 For uncomplicated urinary tract infections, cefazolin results can be used to predict susceptibility or resistance to cephalexin. Ceftriaxone S <=1 F Susceptible <=1 , Intermediate >1 , Resistant >=4 Cefepime S <=1 F Susceptible <=2 , Susceptible-Dose Dependent >2 , Resistant >=16 Ertapenem S <=0.5 F Susceptible <=0.5 , Intermediate >.5 , Resistant >1 Meropenem S <=0.25 F Susceptible <=1 , Intermediate >1 , Resistant >2 Ampicillin/Sulbact S 4 F Susceptible <=8 , Intermediate >8 , Resistant >16 Piperacillin/Tazobac S 8 F Susceptible <16 , Susceptible-Dose Dependent >=16 , Resistant >=32 Gentamicin S <=1 F Susceptible <=2 , Intermediate >2 , Resistant >=8 Tobramycin S <=1 F Susceptible <4 , Intermediate >=4 , Resistant >=8 Trimeth sulfameth S <=20 F Susceptible <=40 , Resistant >40 Ciprofloxacin S <=0.25 F Susceptible <0.5 , Intermediate >=.5 , Resistant >=1 Nitrofurantoin S <=16 F Susceptible <=32 , Intermediate >32 , Resistant >64 Abnormal [facility] Comment on above: Performed By: #### 5 0190-8, 2276-4 #### [facility] CLIA [id number] [address] [place] [address] [place] CNPNon 07-08-2024 CNPN Telephone (OBGYWM) HILLARY FRAIRE ([id number]) 1990 F Date Time Provider Department 07/08/24 KELLY BALTAZAR OBGYWM During your visit today, we recorded the following information about you: Kelly Baltazar MD 07/08/2024 8:28 AM Signed See result note Keflex sent in for +urine cx Allergies As of Date: 07/08/2024 (No Known Allergies) Date Reviewed: 07/05/2024 Reviewed by: Lizzie Kern MA - Fully Assessed Reason for Visit: Orders [681] Primary Visit Diagnosis:Bacteria in urine [R82.71] Order(s):cephALEXin (KEFLEX) 500 mg capsuleTake 1 capsule by mouth four times daily for 5 days.Disp: 20 capsuleRfl: 0 Prescriptions as of 07/08/2024 - cephALEXin (KEFLEX) 500 mg capsule Take 1 capsule by mouth four times daily for 5 days. - aspirin, enteric coated (ECOTRIN LOW STRENGTH) 81 mg EC tablet Take 1 tablet by mouth once daily. - vit/iron fum/folic ac ( 1 + 1 ORAL) Take by mouth once daily. Problem List As Of Date 07/08/2024 Noted Resolved Spotting in early [O26.859] 06/08/2020 Obesity in [O99.210] 06/08/2020 02/20/2021 Nausea and vomiting during [O21.9] 06/08/2020 09/13/2020 History of anxiety [Z86.59] 06/08/2020 Patient request for diagnostic testing [Z01.89] 06/08/2020 07/19/2020 , supervision, high-risk, unspecified *09/13/2020 Marginal insertion of umbilical cord affecting *09/13/2020 02/20/2021 Obesity affecting in first trimester *09/13/2020 Anemia during in third trimester [O99*11/15/2020 02/20/2021 COVID-19 vaccine series declined [Z28.21, Z28.3*12/13/2020 Nausea [R11.0] 05/24/2024 History of pre-eclampsia [Z86.79, Z8*06/07/2024 BMI 38.0-38.9,adult [Z68.38] 06/07/2024 History of anemia [Z86.2] 06/07/2024 Generalized anxiety disorder [F41.1] UTI (urinary tract infection) in , ant*06/09/2024 Prescriptions ordered this encounter Disp Refills Start End CEPHALEXIN 500 MG CAPSULE 20 c* 0 07/08/2024 07/13/2024 Route: ORAL Sig: Take 1 capsule by mouth four times daily for 5 days. Encounter Status:Closed by KELLY BALTAZAR on 07/08/[address] [facility] Bacteria Ur Culton Bacteria identified Cx Nom (U) ORGANISM ID: 1 >=100,000 CFU/ml Escherichia coli ORGANISM ID: 1 (ESCHERICHIA COLI) -- ANTIBIOTIC INTERPRETATION CELESTINO STATUS REFERENCE RANGE -- Ampicillin I 16 F Susceptible <=8 , Intermediate >8 , Resistant >16 Cefazolin S 8 F Susceptible 0-16 , Intermediate <0 or >16 , Resistant >16 For uncomplicated urinary tract infections, cefazolin results can be used to predict susceptibility or resistance to cephalexin. Ceftriaxone S <=1 F Susceptible <=1 , Intermediate >1 , Resistant >=4 Cefepime S <=1 F Susceptible <=2 , Susceptible-Dose Dependent >2 , Resistant >=16 Ertapenem S <=0.5 F Susceptible <=0.5 , Intermediate >.5 , Resistant >1 Meropenem S <=0.25 F Susceptible <=1 , Intermediate >1 , Resistant >2 Ampicillin/Sulbact S 4 F Susceptible <=8 , Intermediate >8 , Resistant >16 Piperacillin/Tazobac S <=4 F Susceptible <16 , Susceptible-Dose Dependent >=16 , Resistant >=32 Gentamicin S <=1 F Susceptible <=2 , Intermediate >2 , Resistant >=8 Tobramycin S <=1 F Susceptible <4 , Intermediate >=4 , Resistant >=8 Trimeth sulfameth S <=20 F Susceptible <=40 , Resistant >40 Ciprofloxacin S <=0.25 F Susceptible <0.5 , Intermediate >=.5 , Resistant >=1 Nitrofurantoin S <=16 F Susceptible <=32 , Intermediate >32 , Resistant >64 Abnormal [facility] Comment on above: Performed By: #### 5 0190-8, 2276-4 #### [facility] CLIA [id number] [address] [place] [address] STATES OF [facility] Examination level ultrasound on 07-05-2024 Indication First trimester anatomic survey Maternal obesity, BMI >35 Impression REMOTE READ The patient is referred for a first trimester anatomy scan including nuchal translucency measurement as clinically indicated. - Single, live, intrauterine . - [place] rump length measurement is consistent with the established gestational age. - A qualitative screen of the nuchal translucency and other anatomic structures was unremarkable on a complete first trimester anatomic assessment. - Not all structural malformations can be detected by ultrasound examination. Recommendations - A standard anatomic survey at 16 weeks can be offered and a detailed exam at 20 weeks is recommended for increased risk. Maternal Assessment Height 183 cm Height (ft) 6 ft Physical Exam Initial weight (lb) 284 lb Initial BMI 38.52 kg/m Maternal assessment other: 2 Para 1 Method Transabdominal ultrasound examination Mariano . Number of fetuses: 1 Dating LMP on: 04/09/2024 GA by LMP 12 w + 3 d BRITTANY by LMP: 01/14/2025 GA by prior assessment 12 w + 3 d BRITTANY by prior assessment: 01/14/2025 Ultrasound examination on: 07/05/2024 GA by U/S based upon: CRL GA by U/S 12 w + 6 d BRITTANY by U/S: 01/11/2025 Assigned: based on stated BRITTANY, selected on 07/05/2024 Assigned GA 12 w + 3 d Assigned BRITTANY: 01/14/2025 General Evaluation Cardiac activity present Placenta: anterior Cord vessels: 3 vessel cord Amniotic fluid: normal amount Biometry Standard FHR 149 bpm CRL 65.1 mm 12w 6d 72% [facility] First Trimester Anatomy Calvarium: normal Falx cerebri: normal Choroid plexus: normal Profile: normal Nasal bone: normal Retronasal triangle: normal Maxilla: normal Mandible: normal Nuchal translucency: Unremarkable Situs: normal Cardiac position: normal Cardiac axis: normal 4-chamber view: normal 4-chamber view with color: normal 0-qlbyez-gmdylra view: normal Abdominal cord insertion: normal Stomach: normal Kidneys: normal Bladder: normal Color doppler of perivesical umbilical arteries: normal Vertebral alignment: normal Arms: normal Hands: normal Legs: normal Feet: normal Maternal Structures Uterus / Cervix Uterus: Visualized Uterus length 161 mm Uterus width 84 mm Uterus height 71 mm Uterus Vol 497.0 cm Ovaries / Tubes / Adnexa Rt ovary: Not visualized Lt ovary: Not visualized Performed By: Eden Aly, LUIS ALFREDO, RVT Read By: Marbella Mcgee M.D. MATERNAL MEDICINE [facility] Radiology Study observation (narrative) [facility] Hepatic function 2000 panelO rdered By: Ashley Lemus on 07-05-2024 Albumin [Mass/Vol] 4.1 g/dL 3.9 - 4.9 g/dL [facility] ALP [Catalytic activity/Vol] 71 U/L 34 - 123 U/L [facility] ALT [Catalytic activity/Vol] 11 U/L 7 - 38 U/L [facility] AST [Catalytic activity/Vol] 8 U/L Low 13 - 35 U/L [facility] Bilirubin [Mass/Vol] 0.4 mg/dL 0.2 - 1.3 mg/dL [facility] Bilirubin.conjugated [Mass/Vol] 0.1 mg/dL [facility] - 0.3 mg/dL [facility] Interpretation and review of laboratory results Abnormal [facility] Protein [Mass/Vol] 7.3 g/dL 6.3 - 8.0 g/dL [facility] Hepatic function 2000 panelo n 07-05-2024 Albumin [Mass/Vol] 4.1 g/dL Normal 3.9-4.9 [facility] Comment on above: Order Comment: Speci men Type: BLOOD SPECIMEN Ordering Facility: [facility] Address: [address] [place] [address] Performed By: #### 5 0190-8, 2275-4 #### [facility] CLIA [id number] [address] [place] [address] [place] ALP [Catalytic activity/Vol] 71 U/L Normal 34-123 [facility] Comment on above: Order Comment: Speci men Type: BLOOD SPECIMEN Ordering Facility: [facility] Address: [address] [place] [address] Performed By: #### 5 0190-8, 2275-07 #### [facility] CLIA [id number] [address] [place] [address] [place] ALT [Catalytic activity/Vol] 11 U/L Normal 7-38 [facility] Comment on above: Order Comment: Speci men Type: BLOOD SPECIMEN Ordering Facility: [facility] Address: [address] [place] [address] Performed By: #### 5 0190-8, 2275-07 #### [facility] CLIA [id number] [address] [place] [address] [place] AST [Catalytic activity/Vol] 8 U/L Low 13-35 [facility] Comment on above: Order Comment: Speci men Type: BLOOD SPECIMEN Ordering Facility: [facility] Address: [address] [place] [address] Performed By: #### 5 0190-8, 2275- #### [facility] CLIA [id number] [address] [place] [address] [place] Bilirubin [Mass/Vol] 0.4 mg/dL Normal 0.2-1.3 [facility] Comment on above: Order Comment: Speci men Type: BLOOD SPECIMEN Ordering Facility: [facility] Address: [address] [place] [address] Performed By: #### 5 0190-8, 2276-4 #### [facility] CLIA [id number] [address] [place] [address] [place] Bilirubin.conjugated [Mass/Vol] 0.1 mg/dL Normal <0.3 [facility] Comment on above: Order Comment: Speci men Type: BLOOD SPECIMEN Ordering Facility: [facility] Address: [address] [place] [address] Performed By: #### 5 0190-8, 2275-4 #### [facility] CLIA [id number] [address] [place] [address] [place] Protein [Mass/Vol] 7.3 g/dL Normal 6.3-8.0 [facility] Comment on above: Order Comment: Speci men Type: BLOOD SPECIMEN Ordering Facility: [facility] Address: [address] [place] [address] Performed By: #### 5 0190-8, 2275-4 #### [facility] CLIA [id number] [address] [place] [address] [place] [id number] PLUSon 07-05-2024 Cell-free DNA./Cell-free DNA.total Dosage of chromosome-specific cfDNA (cfDNA) [Molar fraction] 15% Normal [facility] Comment on above: Order Comment: Speci men Type: BLOOD SPECIMEN Ordering Facility: [facility] Address: [address] [place] [address] Performed By: #### 2 4323-8 #### [facility] CLIA [id number] [address] [place] [address] [place] Chr 13+18+21+X+Y aneuploidy Dosage of chromosome-specific cfDNA Ql (cfDNA) Negative Normal [facility] Comment on above: Order Comment: Speci men Type: BLOOD SPECIMEN Ordering Facility: [facility] Address: [address] [place] [address] Performed By: #### 2 4323-8 #### [facility] CLIA [id number] [address] Chr 21 trisomy Dosage of chromosome-specific cfDNA Ql (cfDNA) Negative Normal [facility] Comment on above: Order Comment: Speci men Type: BLOOD SPECIMEN Ordering Facility: [facility] Address: [address] [place] [address] Performed By: #### 2 4323-8 #### [facility] CLIA [id number] [address] Chr X and Y aneuploidy risk Sequencing Ql (cfDNA) [Interp] Not detected Normal [facility] Comment on above: Order Comment: Speci men Type: BLOOD SPECIMEN Ordering Facility: [facility] Address: [address] [place] [address] Result Comment: Not Detected Not Detected Performed By: #### 2 4323-8 #### [facility] CLIA [id number] [address] Citation Pranav (Reference lab test) Comment Normal [facility] Comment on above: Order Comment: Speci men Type: BLOOD SPECIMEN Ordering Facility: [facility] Address: [address] [place] [address] Result Comment: 1. P manoj ESCALONA, et al. [place] Med. 2012;14(3):296-305. 2. Benedicto BURNETT, et al. Prenat Diag. 2013;33(6):591-597. 3. Stephen C, et al. Clin Chem. 2015 Apr;61(4):608-616. 4. Keenan ESCALONA et al. [place] Med. 2011;13(11):913-920. 5. ACOG/[facility] Practice Bulletin No. 226, Jan 2020. Performed By: #### 2 4323-8 #### [facility] CLIA [id number] [address] Gestational age Estimated from conception date Mariano Normal [facility] Comment on above: Order Comment: Speci men Type: BLOOD SPECIMEN Ordering Facility: [facility] Address: [address] [place] [address] Performed By: #### 2 4323-8 #### [facility] CLIA [id number] [address] GESTATIONALAGE AGE > OR = 9W Yes Normal [facility] Comment on above: Order Comment: Speci men Type: BLOOD SPECIMEN Ordering Facility: [facility] Address: [address] [place] [address] Performed By: #### 2 4323-8 #### [facility] CLIA [id number] [address] Laboratory comment Pranva (Report) Comment Normal [facility] Comment on above: Order Comment: Speci men Type: BLOOD SPECIMEN Ordering Facility: [facility] Address: [address] [place] [address] Result Comment: The MaterniT(R) 21 PLUS laboratory-developed test (LDT) analyzes circulating cell-free DNA from a maternal blood sample. This test is used for screening purposes and not diagnostic. Clinical correlation is recommended. Validation data on twin pregnancies is limited and the ability of this test to detect aneuploidy in higher multiple gestations has not yet been validated. Performed By: #### 2 4323-8 #### [facility] CLIA [id number] [address] director of nursing name Nom (Provider) Comment Normal [facility] Comment on above: Order Comment: Speci men Type: BLOOD SPECIMEN Ordering Facility: [facility] Address: [address] [place] [address] Result Comment: This specimen showed an expected representation of chromosome 21, 18 and 13 material. Clinical correlation is suggested. Comment Sav Atwood MD, PhD, Director, [employer] Performed By: #### 2 4323-8 #### [email or web address] [facility] CLIA [id number] [address] [place] [address] [place] LIMITATIONS OF THE TEST Comment Normal [facility] Comment on above: Order Comment: Speci men Type: BLOOD SPECIMEN Ordering Facility: [facility] Address: [address] [place] [address] Result Comment: Lesly arreguin the results of these tests are highly reliable, discordant results, including inaccurate sex prediction, may occur due to placental, maternal, or mosaicism or neoplasm; vanishing twin; prior maternal organ transplant; or other causes. These tests are screening tests and not diagnostic; they do not replace the accuracy and precision of diagnosis with CVS or amniocentesis. A patient with a positive test result should be referred for genetic counseling and offered invasive diagnosis for confirmation of test results.[5] The results of this testing, including the benefits and limitations, should be discussed with a qualified healthcare provider. management decisions, including termination of the , should not be based on the results of these tests alone. The healthcare provider is responsible for the use of this information in the management of their patient. Sex chromosomal aneuploidies are not reportable for known multiple gestations. A negative result does not ensure an unaffected nor does it exclude the possibility of other chromosomal abnormalities or defects which are not a part of these tests. An uninformative result may be reported, the causes of which may include, but are not limited to, insufficient sequencing coverage, noise or artifacts in the region, amplification or sequencing bias, or insufficient fraction. These tests are not intended to identify pregnancies at risk for neural tube defects or ventral wall defects. Testing for whole chromosome abnormalities (including sex chromosomes) and for subchromosomal abnormalities could lead to the potential discovery of both and maternal genomic abnormalities that could have major, minor, or no, clinical significance. Evaluating the significance of a positive or a non-reportable result may involve both invasive testing and additional studies on the mother. Such investigations may lead to a diagnosis of maternal chromosomal or subchromosomal abnormalities, which on occasion may be associated with benign or malignant maternal neoplasms. These tests may not accurately identify triploidy, balanced rearrangements, or the precise location of subchromosomal duplications or deletions; these may be detected by diagnosis with CVS or amniocentesis. The ability to report results may be impacted by maternal BMI, maternal weight, maternal systemic lupus erythematosus (SLE) and/or by certain pharmaceutical agents such as low molecular weight heparin (for example: Lovenox(R), Xaparin(R), Clexane(R) and Fragmin(R)). Performed By: #### 2 4323-8 #### [facility] CLIA [id number] [address] Monosomy X risk Dosage of chromosome-specific cfDNA Ql (Plasma cell-free+WBC DNA) [Interp] Not detected Normal [facility] Comment on above: Order Comment: Anat ahmadi Type: BLOOD SPECIMEN Ordering Facility: [facility] Address: [address] [place] [address] Performed By: #### 2 4323-8 #### [facility] CLIA [id number] [address] NEGATIVE PREDICTIVE VALUE Note Normal [facility] Comment on above: Order Comment: Anat ahmadi Type: BLOOD SPECIMEN Ordering Facility: [facility] Address: [address] [place] [address] Result Comment: The Negative Predictive Value (NPV) for trisomy 21, 18, and 13 is greater than 99%. The NPV for SCA and ESS cannot be calculated as SCA and ESS are only reported when an abnormality is detected. Performed By: #### 2 4323-8 #### [facility] CLIA [id number] [address] PERFORMANCE CHARACTERISTICS Note Normal [facility] Comment on above: Order Comment: Anat ahmadi Type: BLOOD SPECIMEN Ordering Facility: [facility] Address: [address] [place] [address] Result Comment: ! Sex ! Accuracy: 99.4% ! ! ! ! Region (associated syndrome) ! Est. Sens# ! Est. Spec ! ! ! ! Trisomy 21 (Down Syndrome) ! 99.1% ! 99.9% ! ! ! ! Trisomy 18 (Luong Syndrome) ! >99.9% ! 99.6% ! ! ! ! Trisomy 13 ([place] Syndrome) ! 91.7% ! 99.7% ! ! ! ! Sex Chromosome Aneuploidies## ! 96.2% ! 99.7% ! ! ! * As reported in ISCA database nstd37 [https://www.ncbi.nlm.nih.gov/dbvar/studies/nstd37/ ] # Estimated Sensitivity. Sensitivity estimated across the observed size distribution of each syndrome [per ISCA database nstd37] and across the range of fractions observed in routine clinical NIPT. Actual sensitivity can also be influenced by other factors such as the size of the event, total sequence counts, amplification bias, or sequence bias. ## Mariano gestation only. Performed By: #### 2 4323-8 #### [facility] CLIA [id number] [address] POSITIVE PREDICTIVE VALUE N/A Normal [facility] Comment on above: Order Comment: Speci men Type: BLOOD SPECIMEN Ordering Facility: [facility] Address: [address] [place] [address] Performed By: #### 2 4323-8 #### [facility] CLIA [id number] [address] Reference Lab Test Method Comment Normal [facility] Comment on above: Order Comment: Speci men Type: BLOOD SPECIMEN Ordering Facility: [facility] Address: [address] [place] [address] Result Comment: See Notes Circulating cell-free DNA was purified from the plasma component of maternal blood. The extracted DNA was then converted into a genomic DNA library for aneuploidy analysis of chromosomes 21, 18, and 13 via next generation sequencing.[1] Optional findings based on the test order include sex chromosome aneuploidy (SCA)[2], and enhanced sequencing series (ESS)[3], which will only be reported on as an additional finding when an abnormality is detected. SCA testing includes information on X and Y representation, while ESS testing includes deletions in selected regions (22q, 15q, 11q, 8q, 5p, 4p, 1p) and trisomy of chromosomes 16 and 22. Performed By: #### 2 4323-8 #### [facility] CLIA [id number] [address] Service comment (Unsp spec) [Interp] Comment Normal [facility] Comment on above: Order Comment: Speci men Type: BLOOD SPECIMEN Ordering Facility: [facility] Address: [address] [place] [address] Result Comment: See Notes [employer] is a subsidiary of [employer], using the brand [employer]. This test was developed and its performance characteristics determined by [employer]. It has not been cleared or approved by the Food and Drug Administration. This laboratory is certified under the Clinical Laboratory Improvement Amendments (CLIA) as qualified to perform high complexity clinical laboratory testing and accredited by the [employer] (CAP). If there is future clinical need for adding MaterniT GENOME testing, this specimen will be available until term. [facility] samples will not be retained beyond 60 days. [facility] patients will have to send a new sample for re-sequencing ([facility] Test Code: [id number]). Performed By: #### 2 4323-8 #### [facility] CLIA [id number] [address] Sex Dosage of chromosome-specific cfDNA Nom (cfDNA) Comment Normal [facility] Comment on above: Order Comment: Speci men Type: BLOOD SPECIMEN Ordering Facility: [facility] Address: [address] [place] [address] Result Comment: Cons istent with Female Performed By: #### 2 4323-8 #### [facility] CLIA [id number] [address] [place] [address] Test performance information Pranav (Unsp spec) Comment Normal [facility] Comment on above: Order Comment: Speci men Type: BLOOD SPECIMEN Ordering Facility: [facility] Address: [address] [place] [address] Result Comment: The performance characteristics of the MaterniT(R) 21 PLUS laboratory-developed test (LDT) have been determined in a clinical validation study with women at increased risk for chromosomal aneuploidy.[1-4] Performed By: #### 2 4323-8 #### [facility] CLIA [id number] [address] [place] [address] Trisomy 13 risk Dosage of chromosome-specific cfDNA Ql (cfDNA) [Interp] Negative Normal [facility] Comment on above: Order Comment: Speci men Type: BLOOD SPECIMEN Ordering Facility: [facility] Address: [address] [place] [address] Performed By: #### 2 4323-8 #### [facility] CLIA [id number] [address] [place] [address] Trisomy 18 risk Dosage of chromosome-specific cfDNA Ql (Plasma cell-free+WBC DNA) [Interp] Negative Normal [facility] Comment on above: Order Comment: Speci men Type: BLOOD SPECIMEN Ordering Facility: [facility] Address: [address] [place] [address] Performed By: #### 2 4323-8 #### [id number] 1 [place] [address] [place] Bacteria Ur Culton 5 Bacteria identified Cx Nom (U) ORGANISM ID: 1 >=100,000 CFU/ml Escherichia coli ORGANISM ID: 1 (ESCHERICHIA COLI) -- ANTIBIOTIC INTERPRETATION CELESTINO STATUS REFERENCE RANGE -- Ampicillin I 16 F Susceptible <=8 , Intermediate >8 , Resistant >16 Cefazolin R >=64 F Susceptible 0-16 , Intermediate <0 or >16 , Resistant >16 For uncomplicated urinary tract infections, cefazolin results can be used to predict susceptibility or resistance to cephalexin. Ceftriaxone S <=1 F Susceptible <=1 , Intermediate >1 , Resistant >=4 Cefepime S <=1 F Susceptible <=2 , Susceptible-Dose Dependent >2 , Resistant >=16 Ertapenem S <=0.5 F Susceptible <=0.5 , Intermediate >.5 , Resistant >1 Meropenem S <=0.25 F Susceptible <=1 , Intermediate >1 , Resistant >2 Ampicillin/Sulbact S 8 F Susceptible <=8 , Intermediate >8 , Resistant >16 Piperacillin/Tazobac S <=4 F Susceptible <16 , Susceptible-Dose Dependent >=16 , Resistant >=32 Gentamicin S <=1 F Susceptible <=2 , Intermediate >2 , Resistant >=8 Tobramycin S <=1 F Susceptible <4 , Intermediate >=4 , Resistant >=8 Trimeth sulfameth S <=20 F Susceptible <=40 , Resistant >40 Ciprofloxacin S <=0.25 F Susceptible <0.5 , Intermediate >=.5 , Resistant >=1 Nitrofurantoin S <=16 F Susceptible <=32 , Intermediate >32 , Resistant >64 Abnormal [facility] Comment on above: Performed By: #### 5 0190-8, 2275-4 #### [facility] CLIA [id number] [address] [place] [address] OF [place] C. trachomatis+N. gonorrhoea e DNA KEVIN+probe Ql (Unsp spec)on 06-07-2024 C. trachomatis rRNA KEVIN+probe Ql (Unsp spec) Not detected Normal Not detected [facility] Comment on above: Order Comment: Speci men Type: BLOOD SPECIMEN Ordering Facility: [facility] Address: [address] [place] [address] Performed By: #### 5 0190-8, 2275-4 #### [facility] CLIA [id number] [address] [place] [address] OF [place] N. gonorrhoeae rRNA KEVIN+probe Ql (Unsp spec) Not detected Normal Not detected [facility] Comment on above: Order Comment: Speci men Type: BLOOD SPECIMEN Ordering Facility: [facility] Address: [address] [place] [address] Performed By: #### 5 0190-8, 2275-4 #### [facility] CLIA [id number] [address] [place] [address] [place] CBC W Auto Differential pane l (Bld)on 06-07-2024 Basophils (Bld) [#/Vol] 10*3/uL Normal <0.11 [facility] Comment on above: Order Comment: Speci men Type: BLOOD SPECIMEN Ordering Facility: [facility] Address: [address] [place] [address] Performed By: #### 5 0190-8, 2275-07 #### [facility] CLIA [id number] [address] [place] [address] [place] Basophils/100 WBC (Bld) 0.2 % Normal [facility] Comment on above: Order Comment: Speci men Type: BLOOD SPECIMEN Ordering Facility: [facility] Address: [address] [place] [address] Performed By: #### 5 0190-8, 2275-07 #### [facility] CLIA [id number] [address] [place] [address] [place] Differential cell count method Nom (Bld) Auto Normal [facility] Comment on above: Order Comment: Speci men Type: BLOOD SPECIMEN Ordering Facility: [facility] Address: [address] [place] [address] Performed By: #### 5 0190-8, 2275-07 #### [facility] CLIA [id number] [address] [place] [address] [place] Eosinophils (Bld) [#/Vol] 0.08 10*3/uL Normal <0.46 [facility] Comment on above: Order Comment: Speci men Type: BLOOD SPECIMEN Ordering Facility: [facility] Address: [address] [place] [address] Performed By: #### 5 0190-8, 2275-07 #### [facility] CLIA [id number] [address] [place] [address] [place] Eosinophils/100 WBC (Bld) 0.8 % Normal [facility] Comment on above: Order Comment: Speci men Type: BLOOD SPECIMEN Ordering Facility: [facility] Address: [address] [place] [address] Performed By: #### 5 0190-8, 2275-07 #### [facility] CLIA [id number] [address] [place] [address] [place] Erythrocyte distribution width (RBC) [Ratio] 12.6 % Normal 11.5-15.0 [facility] Comment on above: Order Comment: Speci men Type: BLOOD SPECIMEN Ordering Facility: [facility] Address: [address] [place] [address] Performed By: #### 5 0190-8, 2275-4 #### [facility] CLIA [id number] [address] [place] [address] [place] Hematocrit (Bld) [Volume fraction] 36.1 % Normal 36.0-46.0 [facility] Comment on above: Order Comment: Speci men Type: BLOOD SPECIMEN Ordering Facility: [facility] Address: [address] [place] [address] Performed By: #### 5 0190-8, 4 #### [facility] CLIA [id number] [address] [place] [address] [place] Hemoglobin (Bld) [Mass/Vol] 12.0 g/dL Normal 11.5-15.5 [facility] Comment on above: Order Comment: Speci men Type: BLOOD SPECIMEN Ordering Facility: [facility] Address: [address] [place] [address] Performed By: #### 5 0190-8, 4 #### [facility] CLIA [id number] [address] [place] [address] [place] Immature granulocytes (Bld) [#/Vol] 0.04 10*3/uL Normal <0.10 [facility] Comment on above: Order Comment: Speci men Type: BLOOD SPECIMEN Ordering Facility: [facility] Address: [address] [place] [address] Performed By: #### 5 0190-8, 2275-07 #### [facility] CLIA [id number] [address] [place] [address] [place] Immature granulocytes/100 WBC (Bld) 0.4 % Normal [facility] Comment on above: Order Comment: Speci men Type: BLOOD SPECIMEN Ordering Facility: [facility] Address: [address] [place] [address] Performed By: #### 5 0190-8, 2275-4 #### [facility] CLIA [id number] [address] [place] [address] [place] Lymphocytes (Bld) [#/Vol] 2.76 10*3/uL Normal 1.00-4.00 [facility] Comment on above: Order Comment: Speci men Type: BLOOD SPECIMEN Ordering Facility: [facility] Address: [address] [place] [address] Performed By: #### 5 0190-8, 4 #### [facility] CLIA [id number] [address] [place] [address] [place] Lymphocytes/100 WBC (Bld) 26.6 % Normal [facility] Comment on above: Order Comment: Speci men Type: BLOOD SPECIMEN Ordering Facility: [facility] Address: [address] [place] [address] Performed By: #### 5 0190-8, 2275-07 #### [facility] CLIA [id number] [address] [place] [address] [place] MCH (RBC) [Entitic mass] 29.3 pg Normal 26.0-34.0 [facility] Comment on above: Order Comment: Speci men Type: BLOOD SPECIMEN Ordering Facility: [facility] Address: [address] [place] [address] Performed By: #### 5 0190-8, 2275-4 #### [facility] CLIA [id number] [address] [place] [address] [place] MCHC (RBC) [Mass/Vol] 33.2 g/dL Normal 30.5-36.0 [facility] Comment on above: Order Comment: Speci men Type: BLOOD SPECIMEN Ordering Facility: [facility] Address: [address] [place] [address] Performed By: #### 5 0190-8, 2275-4 #### [facility] CLIA [id number] [address] [place] [address] [place] MCV (RBC) [Entitic vol] 88.0 fL Normal 80.0-100.0 [facility] Comment on above: Order Comment: Speci men Type: BLOOD SPECIMEN Ordering Facility: [facility] Address: [address] [place] [address] Performed By: #### 5 0190-8, 2275-07 #### [facility] CLIA [id number] [address] [place] [address] [place] Monocytes (Bld) [#/Vol] 0.55 10*3/uL Normal <0.87 [facility] Comment on above: Order Comment: Speci men Type: BLOOD SPECIMEN Ordering Facility: [facility] Address: [address] [place] [address] Performed By: #### 5 0190-8, 2275-07 #### [facility] CLIA [id number] [address] [place] [address] [place] Monocytes/100 WBC (Bld) 5.3 % Normal [facility] Comment on above: Order Comment: Speci men Type: BLOOD SPECIMEN Ordering Facility: [facility] Address: [address] [place] [address] Performed By: #### 5 0190-8, 2275-07 #### [facility] CLIA [id number] [address] [place] [address] [place] Neutrophils (Bld) [#/Vol] 6.91 10*3/uL Normal 1.45-7.50 [facility] Comment on above: Order Comment: Speci men Type: BLOOD SPECIMEN Ordering Facility: [facility] Address: [address] [place] [address] Performed By: #### 5 0190-8, 2275-07 #### [facility] CLIA [id number] [address] [place] [address] [place] Neutrophils/100 WBC (Bld) 66.7 % Normal [facility] Comment on above: Order Comment: Speci men Type: BLOOD SPECIMEN Ordering Facility: [facility] Address: [address] [place] [address] Performed By: #### 5 0190-8, 2275-4 #### [facility] CLIA [id number] [address] [place] [address] [place] Nucleated RBC (Bld) [#/Vol] 10*3/uL Normal <0.01 [facility] Comment on above: Order Comment: Speci men Type: BLOOD SPECIMEN Ordering Facility: [facility] Address: [address] [place] [address] Performed By: #### 5 0190-8, 2275-07 #### [facility] CLIA [id number] [address] [place] [address] [place] Nucleated RBC/100 WBC (Bld) [Ratio] 0.0 /100 WBC Normal [facility] Comment on above: Order Comment: Speci men Type: BLOOD SPECIMEN Ordering Facility: [facility] Address: [address] [place] [address] Performed By: #### 5 0190-8, 2275-07 #### [facility] CLIA [id number] [address] [place] [address] [place] Platelet mean volume (Bld) [Entitic vol] 11.3 fL Normal 9.0-12.7 [facility] Comment on above: Order Comment: Speci men Type: BLOOD SPECIMEN Ordering Facility: [facility] Address: [address] [place] [address] Performed By: #### 5 0190-8, 2275- #### [facility] CLIA [id number] [id number] [address] [place] Platelets (Bld) [#/Vol] 246 10*3/uL Normal 150-400 [facility] Comment on above: Order Comment: Speci men Type: BLOOD SPECIMEN Ordering Facility: [facility] Address: [address] [place] [address] Performed By: #### 5 0190-8, 2276-4 #### [facility] CLIA [id number] [address] [place] [address] [place] RBC (Bld) [#/Vol] 4.10 10*6/uL Normal 3.90-5.20 [facility] Comment on above: Order Comment: Speci men Type: BLOOD SPECIMEN Ordering Facility: [facility] Address: [address] [place] [address] Performed By: #### 5 0190-8, 6-4 #### [facility] CLIA [id number] [address] [place] [address] [place] WBC (Bld) [#/Vol] 10.36 10*3/uL Normal 3.70-11.00 [facility] Comment on above: Order Comment: Speci men Type: BLOOD SPECIMEN Ordering Facility: [facility] Address: [address] [place] [address] Performed By: #### 5 0190-8, 6-4 #### [facility] CLIA [id number] [address] [place] [address] [place] Comprehensive metabolic 2000 panelon 06-07-2024 Albumin [Mass/Vol] 4.1 g/dL Normal 3.9-4.9 [facility] Comment on above: Order Comment: Speci men Type: BLOOD SPECIMEN Ordering Facility: [facility] Address: [address] [place] [address] Performed By: #### 2 4323-8 #### [facility] CLIA [id number] [address] [place] [address] [place] ALP [Catalytic activity/Vol] 70 U/L Normal 34-123 [facility] Comment on above: Order Comment: Speci men Type: BLOOD SPECIMEN Ordering Facility: [facility] Address: [address] [place] [address] Performed By: #### 2 4323-8 #### [facility] CLIA [id number] [address] [place] ALT With P-5'-P [Catalytic activity/Vol] 56 U/L High 7-38 [facility] Comment on above: Order Comment: Speci men Type: BLOOD SPECIMEN Ordering Facility: [facility] Address: [address] [place] [address] Performed By: #### 2 4323-8 #### [facility] CLIA [id number] [address] [place] Anion gap [Moles/Vol] 10 mmol/L Normal 8-15 [facility] Comment on above: Order Comment: Speci men Type: BLOOD SPECIMEN Ordering Facility: [facility] Address: [address] [place] [address] Performed By: #### 2 4323-8 #### [facility] CLIA [id number] [address] OF [place] AST With P-5'-P [Catalytic activity/Vol] 30 U/L Normal 13-35 [facility] Comment on above: Order Comment: Speci men Type: BLOOD SPECIMEN Ordering Facility: [facility] Address: [address] [place] [address] Performed By: #### 2 4323-8 #### [facility] CLIA [id number] [address] [place] [address] [place] Bilirubin [Mass/Vol] 0.4 mg/dL Normal 0.2-1.3 [facility] Comment on above: Order Comment: Speci men Type: BLOOD SPECIMEN Ordering Facility: [facility] Address: [address] [place] [address] Performed By: #### 2 4323-8 #### [facility] CLIA [id number] [address] [place] [address] [place] Calcium [Mass/Vol] 9.2 mg/dL Normal 8.5-10.2 [facility] Comment on above: Order Comment: Speci men Type: BLOOD SPECIMEN Ordering Facility: [facility] Address: [address] [place] [address] Performed By: #### 2 4323-8 #### [facility] CLIA [id number] [address] [place] [address] [place] Chloride [Moles/Vol] 101 mmol/L Normal 98-107 [facility] Comment on above: Order Comment: Speci men Type: BLOOD SPECIMEN Ordering Facility: [facility] Address: [address] [place] [address] Performed By: #### 2 4323-8 #### [facility] CLIA [id number] [address] [place] [address] [place] CO2 [Moles/Vol] 23 mmol/L Normal 22-30 [facility] Comment on above: Order Comment: Speci men Type: BLOOD SPECIMEN Ordering Facility: [facility] Address: [address] [place] [address] Performed By: #### 2 4323-8 #### [facility] CLIA [id number] [address] [place] [address] [place] Creatinine [Mass/Vol] 0.79 mg/dL Normal 0.58-0.96 [facility] Comment on above: Order Comment: Speci men Type: BLOOD SPECIMEN Ordering Facility: [facility] Address: [address] [place] [address] Performed By: #### 2 4323-8 #### [facility] CLIA [id number] [address] [place] [address] [place] Creatinine and Glomerular filtration rate.predicted panel (S/P/Bld) 101 mL/min/1.73m??? Normal >=60 [facility] Comment on above: Order Comment: Speci men Type: BLOOD SPECIMEN Ordering Facility: [facility] Address: [address] [place] [address] Result Comment: Jelly mated Glomerular Filtration Rate (eGFR) is calculated using the 2020 CKD-EPI creatinine equation. This equation utilizes serum creatinine, sex, and age as parameters. The creatinine assay has traceable calibration to isotope dilution-mass spectrometry. Refer to KDIGO guidelines for clinical interpretation. In patients with unstable renal function, e.g. those with acute kidney injury, the eGFR may not accurately reflect actual GFR. Performed By: #### 2 4323-8 #### [facility] CLIA [id number] [address] [place] [address] [place] Glucose [Mass/Vol] 114 mg/dL High 74-99 [facility] Comment on above: Order Comment: Speci men Type: BLOOD SPECIMEN Ordering Facility: [facility] Address: [address] [place] [address] Result Comment: The [place] [employer] (ADA) provides guidance for cutoff values for fasting glucose and random glucose. The ADA defines fasting as no caloric intake for at least 8 hours. Fasting plasma glucose results between 100 to 125 mg/dL indicate increased risk for diabetes (prediabetes). Fasting plasma glucose results greater than or equal to 126 mg/dL meet the criteria for diagnosis of diabetes. In the absence of unequivocal hyperglycemia, results should be confirmed by repeat testing. In a patient with classic symptoms of hyperglycemia or hyperglycemic crisis, random plasma glucose results greater than or equal to 200 mg/dL meet the criteria for diagnosis of diabetes. Reference: Standards of Medical Care in Diabetes 2016, [place] [employer]. Diabetes Care. 2016.39(Suppl 1). Performed By: #### 2 4323-8 #### [facility] CLIA [id number] [address] [place] [address] [place] Potassium [Moles/Vol] 3.9 mmol/L Normal 3.7-5.1 [facility] Comment on above: Order Comment: Speci men Type: BLOOD SPECIMEN Ordering Facility: [facility] Address: [address] [id number] Performed By: #### 2 4323-8 #### [facility] CLIA [id number] [address] [place] [address] [place] Protein [Mass/Vol] 7.2 g/dL Normal 6.3-8.0 [facility] Comment on above: Order Comment: Speci men Type: BLOOD SPECIMEN Ordering Facility: [facility] Address: [address] [place] [address] Performed By: #### 2 4323-8 #### [facility] CLIA [id number] [address] [place] Sodium [Moles/Vol] 134 mmol/L Low 136-144 [facility] Comment on above: Order Comment: Katlini men Type: BLOOD SPECIMEN Ordering Facility: [facility] Address: [address] [place] [address] Performed By: #### 2 4323-8 #### [facility] CLIA [id number] [address] [place] [address] [place] Urea nitrogen [Mass/Vol] 14 mg/dL Normal 7-21 [facility] Comment on above: Order Comment: Anat men Type: BLOOD SPECIMEN Ordering Facility: [facility] Address: [address] [place] [address] Performed By: #### 2 4323-8 #### [facility] CLIA [id number] [address] [place] [address] [place] HBV surface Ag Ser Qlon - HBV surface Ag Ql (S) Negative Normal Negative [facility] Comment on above: Order Comment: Anat galdino Type: BLOOD SPECIMEN Ordering Facility: [facility] Address: [address] [place] [address] Performed By: #### 5 0190-8, 2276-4 #### [facility] CLIA [id number] [address] [place] [address] [place] JOSE MARTIN HCV Ab Ser Qlon 06-07-2024 HCV Ab Ql (S) Negative Normal Negative [facility] Comment on above: Order Comment: Katlini men Type: BLOOD SPECIMEN Ordering Facility: [facility] Address: [address] [place] [address] Result Comment: The result suggests no evidence of active infection with Hepatitis C virus. Should recent infection be suspected, repeat testing may be considered 4-6 weeks after this draw. Performed By: #### 5 0190-8, 2276-4 #### [facility] CLIA [id number] [address] [place] [address] [place] HIGH RISK HUMAN PAPILLOMA RICKY (HPV), PCR FOR DETECTION AND GENOTYPINGon 06-07-2024 HPV 16 Ag Ql (Unsp spec) Not detected Normal Not detected [facility] Comment on above: Order Comment: Speci men Type: BLOOD SPECIMEN Ordering Facility: [facility] Address: [address] [place] [address] Performed By: #### 2 4323-8 #### [email or web address] CLIA [id number] [address] [place] [address] [place] HPV 18 Ag Ql (Unsp spec) Not detected Normal Not detected [facility] Comment on above: Order Comment: Speci men Type: BLOOD SPECIMEN Ordering Facility: [facility] Address: [address] [place] [address] Performed By: #### 2 4323-8 #### [facility] CLIA [id number] [address] [place] [address] [place] HPV 31+33+35+39+45+51+52 +56+58+59+66+68 DNA KEVIN+probe Ql (Cvx) Not detected Normal Not detected [facility] Comment on above: Order Comment: Speci men Type: BLOOD SPECIMEN Ordering Facility: [facility] Address: [address] [place] [address] Result Comment: High Risk HPV Other Type includes HPV types 31, 33, 35, 39, 45, 51, 52, 56, 58, 59, 66 and 68. Performed By: #### 2 4323-8 #### [facility] CLIA [id number] [address] [place] [address] [place] HIV 1+2 Ab IA Qlon HIV 1 and 2 Ab IA.rapid Nom (S/P/Bld) Normal [facility] Comment on above: Order Comment: Speci men Type: BLOOD SPECIMEN Ordering Facility: [facility] Address: [address] [place] [address] Result Comment: Test not indicated. Performed By: #### 5 0190-8, 6-4 #### [facility] CLIA [id number] [address] [place] [address] [place] HIV 1+2 Ab+HIV1 p24 Ag IA Ql Non-Reactive Normal Nonreactive [facility] Comment on above: Order Comment: Speci men Type: BLOOD SPECIMEN Ordering Facility: [facility] Address: [address] [place] [address] Performed By: #### 5 0190-8, 2275-4 #### [facility] CLIA [id number] [address] [place] [address] OF [facility] HIV immunoassay testing algorithm interpretation (S/P/Bld) [Interp] Normal [facility] Comment on above: Order Comment: Speci men Type: BLOOD SPECIMEN Ordering Facility: [facility] Address: [address] [place] [address] Result Comment: No e vidence of HIV-1 or HIV-2 infection. Should recent infection be suspected, repeat testing may be considered 2-3 weeks after this draw. [place] Rev. Code 3701.243(E): This information has been disclosed to you from confidential records protected from disclosure by state law. ???You shall make no further disclosure of this information without the specific, written, and informed release of the individual to whom it pertains or as otherwise permitted by state law. A general authorization for the release of medical or other information is not sufficient for the purpose of the release of HIV test results or diagnoses. Performed By: #### 5 0190-8, 2275-4 #### [facility] CLIA [id number] [address] [place] [address] [place] HbA1c (Bld)on 06-07-2024 Average glucose Estimated from glycated hemoglobin (Bld) [Mass/Vol] 97 mg/dL Normal [facility] Comment on above: Order Comment: Speci men Type: BLOOD SPECIMEN Ordering Facility: [facility] Address: [address] [place] [address] Result Comment: eAG: (Estimated average glucose) is a calculated value from HgbA1c and is inbound customer service representative of the average blood glucose level in the last 2-3 month period. Performed By: #### 5 5454-3 #### [facility] CLIA [id number] [address] [place] [address] STATES OF [facility] HbA1c (Bld) [Mass fraction] 5.0 % Normal 4.3-5.6 [facility] Comment on above: Order Comment: Speci men Type: BLOOD SPECIMEN Ordering Facility: [facility] Address: [address] [place] [address] Result Comment: Amer [place] Diabetes Association guidelines indicate that patients with HgbA1c in the range 5.7-6.4% are at increased risk for development of diabetes, and intervention by lifestyle modification may be beneficial. HgbA1c greater or equal to 6.5% is considered diagnostic of diabetes. Performed By: #### 5 5454-3 #### [facility] CLIA [id number] [address] [place] [address] OF JOSE MARTIN PAP TESTon 06-07-2024 ADEQUACY Normal [facility] Comment on above: Order Comment: Speci men Type: FLUID SPECIMEN Ordering Facility: [facility] Address: [address] [place] [address] Result Comment: Sati sfactory for interpretation. Transformation zone present Performed By: #### L [id number] #### [facility] CLIA [id number] [address] [place] [address] STATES [place] JOSE MARTIN CASE REPORT Normal [facility] Comment on above: Order Comment: Speci men Type: FLUID SPECIMEN Ordering Facility: [facility] Address: [address] [place] [address] Result Comment: Gyne cologic Cytology Report Case: [id number] Authorizing Provider: Leanne Aquino APRN.SPOOL WINDER Collected: 06/07/2024 03:39 PM Ordering Location: OB/Gynecology Received: 06/07/2024 04:52 PM First Screen: Alesia, Martha, CT, ASCP Specimen: Pap Test, ThinPrep, Cervix Performed By: #### L [id number] #### [facility] CLIA [id number] [address] [place], [place] [address] [place] CLINICAL HISTORY, CYTOLOGY, SCHOOL ATHLETIC DIRECTOR Routine Exam Normal [facility] Comment on above: Order Comment: Speci men Type: FLUID SPECIMEN Ordering Facility: [facility] Address: [address] [place] [address] Performed By: #### L [id number] #### [facility] CLIA [id number] [address] [place] [address] [place] FINAL PERFORMING LAB Normal [facility] Comment on above: Order Comment: Speci men Type: FLUID SPECIMEN Ordering Facility: [facility] Address: [address] [place] [address] Result Comment: Tech nical component, underwriting consultant screening performed at [facility], [address] [place] [address] [place] [address] CLIA# [id number] Diagnostic interpretation performed at [facility], [address] [place] [address] [place] [address] CLIA# [id number] Occupational Therapist: Alvarez Vargas M.D. Performed By: #### L [id number] #### [facility] CLIA [id number] [address] [place], [place] [address] [place] INTERPRETATION, CYTOLOGY, SCHOOL ATHLETIC DIRECTOR Normal [facility] Comment on above: Order Comment: Speci men Type: FLUID SPECIMEN Ordering Facility: [facility] Address: [address] [place] [address] Result Comment: Nega tive for intraepithelial lesion or malignancy. at 1429 EDT Performed By: #### L [id number] #### [facility] CLIA [id number] [address] [place], [place] [address] [place] LMP 04/09/2024 Normal [facility] Comment on above: Order Comment: Speci men Type: FLUID SPECIMEN Ordering Facility: [facility] Address: [address] [place] [address] Performed By: #### L [id number] #### [facility] CLIA [id number] [address] [place] [address] STATES [facility] PAP DISCLAIMER COMMENT The Pap Smear is a screening test for cervical cancer. False negative results occur with all screening tests, emphasizing the need for rescreening at recommended intervals, and clinical correlation. Normal [facility] Comment on above: Order Comment: Speci men Type: FLUID SPECIMEN Ordering Facility: [facility] Address: [address] [place] [address] Performed By: #### L [id number] #### [facility] CLIA [id number] [address] [place] [address] [place] JOSE MARTIN PAP STARTING GATE DRIVER COMMENT This specimen has be en analyzed by the ThinPrep Imaging System, an automated imaging and review system, which assists the laboratory in evaluating cells on ThinPrep Pap tests. Following automated imaging, selected doherty from every slide are reviewed by a underwriting consultant. Normal [facility] Comment on above: Order Comment: Speci men Type: FLUID SPECIMEN Ordering Facility: [facility] Address: [address] [place] [address] Performed By: #### L [id number] #### [facility] CLIA [id number] [address] [place] [address] [place] OF JOSE MARTIN POC HOME CARE SCHEDULER ULTRASOUNDon 06-08-19 Indication Confirmation of intrauterine . Confirmation of cardiac activity. Estimation of gestational age Impression cardiac activity is visualized, CRL is appropriate for clinical dates, corresponding to BRITTANY 01/12/25 Recommendations Follow up for 1st Trimester Anatomy with Nuchal Translucency as clinically indicated if desired. Method Transvaginal ultrasound examination. View: Adequate visualization Mariano . Number of embryos: 1 Dating LMP on: 04/09/2024 GA by LMP 8 w + 3 d BRITTANY by LMP: 01/14/2025 Ultrasound examination on: 06/07/2024 GA by U/S based upon: CRL GA by U/S 8 w + 5 d BRITTANY by U/S: 01/12/2025 Assigned: based on the LMP, selected on 06/07/2024 Assigned GA 8 w + 3 d Assigned BRITTANY: 01/14/2025 Biometry Standard FHR 169 bpm CRL 20.8 mm 8w 5d 96% Hadlock Assessment Gestational sac: visualized Location: intrauterine Yolk sac: visualized Embryo: visualized CRL 20.8 mm 8w 5d 96% Hadlock Cardiac activity: present FHR 169 bpm Maternal Structures BMI 38 General Evaluation Cardiac activity present. FHR 169 bpm Performed By: Leanne Aquino CNP Read By: Leanne Aquino CNP MATERNAL MEDICINE [facility] Radiology Study observation (narrative) [facility] Prot/Creat Uron 06-07-2024 Protein/Creatinine (U) [Mass ratio] 0.06 mg/mg Normal <0.15 [facility] Comment on above: Order Comment: Speci men Type: BLOOD SPECIMEN Ordering Facility: [facility] Address: [address] [place] [address] Result Comment: Adul t Proteinuria Categories: <0.15 mg/mg is considered normal to mildly increased 0.15 - 0.50 mg/mg is considered moderately increased >0.50 mg/mg is considered severely increased KDIGO. (2013). KDIGO 2012 Clinical Practice Guideline for the Evaluation and Management of Chronic Kidney Disease. Official Journal of the International Society of Nephrology, 3(1), 1-150. Performed By: #### 2 4323-8 #### [email or web address] CLIA [id number] [address] [place] [address] [place] Protein/Creatinine (U) [Mass ratio]on 06-07-2024 Creatinine (U) [Mass/Vol] 155.0 mg/dL Normal 42.2-237.9 [facility] Comment on above: Order Comment: Speci men Type: BLOOD SPECIMEN Ordering Facility: [facility] Address: [address] [place] [address] Performed By: #### 2 4323-8 #### [email or web address] CLIA [id number] [address] [place] [address] [place] Protein (U) [Mass/Vol] 10 mg/dL Normal 0-20 [facility] Comment on above: Order Comment: Anat ahmadi Type: BLOOD SPECIMEN Ordering Facility: [facility] Address: [address] [place] [address] Performed By: #### 2 4323-8 #### [facility] CLIA [id number] [address] [place], [place] [id number] [place] RUBELLA IGG ANTIBODYon 06-07 RUBELLA IGG AB, QUAL Positive Normal Positive [facility] Comment on above: Order Comment: Anat galdino Type: BLOOD SPECIMEN Ordering Facility: [facility] Address: [address] [place] [address] Result Comment: The result suggests recent or past exposure to Rubella virus or history of Rubella vaccination. Positive result may also be seen due to presence of passively-transferred antibodies. Please correlate with patient's history. Performed By: #### 5 0190-8, 2276-4 #### [facility] CLIA [id number] [address] [place] [address] [place] Reagin and Treponema pallidu m IgG and IgM [Interp]on 06-07-2024 T. pallidum IgG+IgM IA Ql (S) Non-Reactive Normal Nonreactive [facility] Comment on above: Order Comment: Anat galdino Type: BLOOD SPECIMEN Ordering Facility: [facility] Address: [address] [place] [address] Performed By: #### 5 0190-8, 2276-4 #### [facility] CLIA [id number] [address] [place] [address] [place] Reagin+T pallidum IgG+IgM Se rPl-Impon 06-07-2024 Reagin and Treponema pallidum IgG and IgM [Interp] Cannot exclude recent Treponemal infection if specimen collected within 7-10 days after appearance of suspect lesions or 2-3 weeks after an exposure. Clinical correlation is required. Normal [facility] Comment on above: Order Comment: Anat galdino Type: BLOOD SPECIMEN Ordering Facility: [facility] Address: [address] [place] [address] Performed By: #### 5 0190-8, 2276-4 #### [facility] CLIA [id number] [address] [place] [address] [place] TRICHOMONAS VAGINALIS NAATon 06-07-2024 T. vaginalis DNA KEVIN+probe Ql (Unsp spec) Not detected Normal Not detected [facility] Comment on above: Order Comment: Speci men Type: BLOOD SPECIMEN Ordering Facility: [facility] Address: [address] [place] [address] Performed By: #### 5 0190-8, 2276-4 #### [facility] CLIA [id number] [address] [place] [address] [place] TYPE + SCREEN PRENATALon ABO A Normal [facility] Comment on above: Order Comment: Speci men Type: BLOOD SPECIMEN Ordering Facility: [facility] Address: [address] [place] [address] Performed By: #### T SPN #### [facility] CLIA [id number] [address] [place] [address] [place] Rh Nom (Bld) Positive Normal [facility] Comment on above: Order Comment: Speci men Type: BLOOD SPECIMEN Ordering Facility: [facility] Address: [address] [place] [address] Performed By: #### T SPN #### [facility] CLIA [id number] [address] [place] [address] [place] TYPE AND SCREEN EXPIRATION 06/10/2024 23:59 Normal [facility] Comment on above: Order Comment: Speci men Type: BLOOD SPECIMEN Ordering Facility: [facility] Address: [address] [place] [address] Performed By: #### T SPN #### [facility] CLIA [id number] [address] [place] [address] [place] CNOVon 05-24-2024 CNOV Office Visit (OBGYWM ) KEKEHILLARY ANDERSON ([id number]) 1990 F Date Time Provider Department 05/24/24 8:00 AM CRISSY TOM During your visit today, we recorded the following information about you: Blood pressure Weight Last Period 124/68 129.2 kg 04/09/24 Crissy Tom APRN.CNM 05/24/2024 10:23 AM Signed Hillarydiego Fraire is a 34 year old female who presents for problem visit x2 days spotting and missed menses. HPI: LMP 04/09/24 which puts gestational age at 6w 5days.. She is here today with because she thought it was her NOB appointment. Patient was initially concerned due to spotting for 2 days earlier this month. She denies any current spotting, bleeding or pain. was unplanned but accepted. She has a history of 3 years ago with PP preeclampsia. OB History Gravida1 Para1 Term1 Preterm0 AB0 Living1 SAB0 IAB0 Ectopic0 Multiple0 Live Births1 [place] History LMP: 03/31/2023 (Exact Date), Having periods Age at Menarche: Age at First : Age at Menopause: [place] History Comments: Sexual Activity: Yes; Male Contraception: Pill PAST MEDICAL HISTORY Diagnosis Date #[id number] Anemia during in third trimester 11/15/2020 fracture age 5 right arm-playground PAST SURGICAL HISTORY Procedure Laterality Date PAST SURGICAL HISTORY OF wisdom teeth FAMILY HISTORY Problem Relation Age of Onset Hypertension Father No Known Problems Sister No Known Problems Brother Depression Paternal Grandmother Cancer Paternal Grandfather Social History Tobacco Use Smoking status: Former Current packs/day: 0.00 Types: Cigarettes Start date: 06/08/2009 Quit date: 06/08/2017 Years since quittin.9 Smokeless tobacco: Never Vaping Use Vaping status: Former Quit date: 04/07/2016 Substance Use Topics Alcohol use: Not Currently Comment: social occasional drinker Drug use: Never Current Outpatient Medications Medication Sig norgestimate 0.25 mg-ethinyl estradiol 35 mcg (SPRINTEC) 0.25-35 mg-mcg per tablet Take 1 tablet by mouth once daily. No current facility-administered medications for this visit. Allergies As of Date: 05/24/2024 (No Known Allergies) Fully Assessed 04/09/2023 REVIEW OF SYSTEMS Abdomen: No bloating, early satiety, indigestion, or increased flatulence. No abdominal pain, nausea, vomiting, diarrhea, or constipation. Bladder: No dysuria, gross hematuria, urinary frequency, urinary urgency, or incontinence. Breast: No breast lumps, nipple d/c, overlying skin changes, redness or skin retraction. Expanded ROS: N/A Allergies and current medication updated:Yes SENSITIVE EXAM: The sensitive examination was discussed with the Patient or Patient's Authorized Coremaking Supervisor. As applicable, any other physician, advance practice provider, medical student, or other health professional student that will be observing or involved in the sensitive examination for educational or training purposes was discussed with the Patient or Authorized Coremaking Supervisor. The Patient or Authorized Coremaking Supervisor has agreed to proceed with the sensitive examination. (Sensitive examination includes inspection and/or palpation of the breasts, pelvis, prostate and anorectal regions). EXAM: BP 124/68 Wt 284 lb 12.8 oz (129.2kg) LMP 04/09/2024 GENERAL: pleasant, female in no apparent distress HEENT: Normocephalic and atraumatic NECK: Supple and full range of motion DERMATOLOGY: Normal and without lesions NEURO: alert and oriented x3,exam grossly non-focal EXTREMITIES: normal ASSESSMENT AND PLAN: Assessment AND Plan Missed menses Orders: UA DIP,URINE HCG (POC) POSITIVE 6 weeks gestation of Spotting in early Obesity affecting in first trimester, unspecified obesity type -No further spotting, bleeding or pain - Taking vitamins daily - Start vitamin b6 / Unisom for nausea - Notify office if unable to keep food or liquid down for 24 hours - RTO 2 weeks for DRISS Ortiz Courtney, APRN.CNM 05/24/2024 8:10 AM Signed As you may already know, morning sickness can often be more appropriately called evening sickness or vrxjz-hwpsky-yy-the-da y sickness. While there are the paulino few, most women (50-90%) experience some degree of nausea, some have vomiting, and a few develop a severe form of vomiting during called hyperemesis gravidarum. What causes the nausea and vomiting of ? We can't explain why some people feel fine and others are green for months. Even the same woman may feel vastly different in each . There is some relationship between nausea and the level of the hormone hCG. In twin pregnancies, and in other situations where the hCG is greater than expected (more content not included)... Normal [facility] UA DIP,URINE HCG (POC)on Beta HCG ( test) Ql (U) Positive Abnormal Negative [facility] Comment on above: Location:[facility], [address], [place], [address] Interpretation and review of laboratory results Abnormal 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 Location:[facility], [address], [place], [place], [id number] [place] [address] POINT OF CARE [facility] CBC W Auto Differential pane l (Bld)on 02-11-2022 Basophils (Bld) [#/Vol] 0.04 10*3/uL <0.11 k/uL [facility] Basophils/100 WBC (Bld) 0.5 % [facility] Differential cell count method Nom (Bld) Auto [facility] Eosinophils (Bld) [#/Vol] 0.13 10*3/uL <0.46 k/uL [facility] Eosinophils/100 WBC (Bld) 1.5 % [facility] Erythrocyte distribution width (RBC) [Ratio] 12.7 % 11.5 - 15.0 % [facility] Hematocrit (Bld) [Volume fraction] 41.0 % 36.0 - 46.0 % [facility] Hemoglobin (Bld) [Mass/Vol] 13.6 g/dL 11.5 - 15.5 g/dL [facility] Immature granulocytes (Bld) [#/Vol] <0.10 k/uL [facility] Immature granulocytes/100 WBC (Bld) 0.1 % [facility] Lymphocytes (Bld) [#/Vol] 2.58 10*3/uL 1.00 - 4.00 k/uL [facility] Lymphocytes/100 WBC (Bld) 30.6 % [facility] MCH (RBC) [Entitic mass] 29.5 pg 26.0 - 34.[address] [facility] MCHC (RBC) [Mass/Vol] 33.2 g/dL 30.5 - 36.0 g/dL [facility] MCV (RBC) [Entitic vol] 88.9 fL 80.0 - 100.[address] [facility] Monocytes (Bld) [#/Vol] 0.61 10*3/uL <0.87 k/uL [facility] Monocytes/100 WBC (Bld) 7.2 % [facility] Neutrophils (Bld) [#/Vol] 5.06 10*3/uL 1.45 - 7.50 k/uL [facility] Neutrophils/100 WBC (Bld) 60.1 % [facility] Nucleated RBC (Bld) [#/Vol] <0.01 k/uL [facility] Nucleated RBC/100 WBC (Bld) [Ratio] 0.0 /[address] [facility] Platelet mean volume (Bld) [Entitic vol] 10.9 fL 9.0 - 12.[address] [facility] Platelets (Bld) [#/Vol] 285 10*3/uL 150 - 400 k/uL [facility] RBC (Bld) [#/Vol] 4.61 10*6/uL 3.90 - 5.2 0 m/uL [facility] WBC (Bld) [#/Vol] 8.43 10*3/uL 3.70 - 11. 00 k/uL [facility] CBC-Complete Blood Cnt No Di ffon 01-12-2021 Erythrocyte distribution width (RBC) [Ratio] 13.2 % Normal 11.6-14.6 [facility] Comment on above: Performed By: #### L 501.1400, L100.0500 #### [facility] [address] [place], [address] Hematocrit (Bld) [Volume fraction] 30.6 % Low 37-47 [facility] Comment on above: Performed By: #### L 501.1400, L100.0500 #### [facility] [address] [place], [address] Hemoglobin (Bld) [Mass/Vol] 9.8 g/dL Low 12.0-15.0 [facility] Comment on above: Performed By: #### L 501.1400, L100.0500 #### [facility] [address] [place], [address] MCH (RBC) [Entitic mass] 30.3 pg Normal 27.0-32.0 [facility] Comment on above: Performed By: #### L 501.1400, L100.0500 #### [facility] [address] [place], [address] MCHC (RBC) [Mass/Vol] 32.0 g/dL Normal 32-36 [facility] Comment on above: Performed By: #### L 501.1400, L100.0500 #### [facility] [address] [place], [address] MCV (RBC) [Entitic vol] 94.7 fL Normal 81-99 [facility] Comment on above: Performed By: #### L 501.1400, L100.0500 #### [facility] [address] [place], [address] Platelet mean volume (Bld) [Entitic vol] 11.6 fL Normal 6.2-12.0 [facility] Comment on above: Performed By: #### L 501.1400, L100.0500 #### [facility] [address] [place], [address] Platelets (Bld) [#/Vol] 177 10*3/uL Normal 150-450 [facility] Comment on above: Performed By: #### L 501.1400, L100.0500 #### [facility] [address] [place], [address] RBC (Bld) [#/Vol] 3.23 10*6/uL Low 4.2-5.4 [facility] Comment on above: Performed By: #### L 501.1400, L100.0500 #### [facility] [address] [place], [address] RDW SD 45.5 fl High 35.1-43.9 [facility] Comment on above: Performed By: #### L 501.1400, L100.0500 #### [facility] [address] [place], [address] WBC (Bld) [#/Vol] 13.4 10*3/uL High 4.4-11.0 [facility] Comment on above: Performed By: #### L 501.1400, L100.0500 #### [facility] [address] [place], [address] Comprehensive Metabolic Prof ilon 01-12-2021 Albumin [Mass/Vol] 2.2 g/dL Low 3.2-5.0 [facility] Comment on above: Performed By: #### L 500.4050 #### [facility] [address] [place], [address] Albumin/Globulin [Mass ratio] 0.5 {ratio} Low 0.9-2.4 [facility] Comment on above: Performed By: #### L 500.4050 #### [facility] [address] [place], [address] ALK P 96 U/L Normal 45-117 [facility] Comment on above: Performed By: #### L 500.4050 #### [facility] [address] [place], [address] ALT [Catalytic activity/Vol] 20 U/L Normal 13-56 [facility] Comment on above: Performed By: #### L 500.4050 #### [facility] [address] [place], [address] AST [Catalytic activity/Vol] 20 U/L Normal 15-37 [facility] Comment on above: Performed By: #### L 500.4050 #### [facility] [address] [place], [address] Bilirubin [Mass/Vol] 0.60 mg/dL Normal 0.20-1.00 [facility] Comment on above: Result Comment: For patients on eltrombopag therapy, use of Dimension [place] TBIL is not recommended. Performed By: #### L 500.4050 #### [facility] [address] [place], [address] BUN/CRE 14.5 RATIO Normal 10-20 [facility] Comment on above: Performed By: #### L 500.4050 #### [facility] [address] [place], [address] CA,Total 8.0 mg/dL Low 8.5-10.1 [facility] Comment on above: Performed By: #### L 500.4050 #### [facility] [address] [place], [address] Chloride [Moles/Vol] 108 mmol/L High 98-107 [facility] Comment on above: Performed By: #### L 500.4050 #### [facility] [address] [place], [address] CO2 [Moles/Vol] 26.0 mmol/L Normal 21.0-32.0 [facility] Comment on above: Performed By: #### L 500.4050 #### [facility] [address] [place], [address] Creatinine [Mass/Vol] 0.83 mg/dL Normal 0.55-1.02 [facility] Comment on above: Result Comment: The validity of the calculated GFR GFRAA in patients over 70 years has not been determined. Clinical correlation is essential. Performed By: #### L 500.4050 #### [facility] [address] [place], [address] ECRCL 114.37 ml/min Normal [facility] Comment on above: Performed By: #### L 500.4050 #### [facility] [address] [place], [address] EST GFR - AA 104 mL/min Normal >60 [facility] Comment on above: Result Comment: Afri can [place] GFR Calc Performed By: #### L 500.4050 #### [facility] [address] [place], [address] GAP 7 Normal 5-15 [facility] Comment on above: Performed By: #### L 500.4050 #### [facility] [address] [place], [address] GFR/1.73 sq M.predicted among non-blacks MDRD (S/P/Bld) [Vol rate/Area] 86 mL/min/{1.73_m2} Normal >60 [facility] Comment on above: Result Comment: Non- GFR Calc Performed By: #### L 500.4050 #### [facility] [address] [place], [address] Globulin (S) [Mass/Vol] 4.1 g/dL Normal 2.2-4.2 [facility] Comment on above: Performed By: #### L 500.4050 #### [facility] [address] [place], [address] Glucose [Mass/Vol] 72 mg/dL Low 74-106 [facility] Comment on above: Result Comment: Preston meredith note revised GLUCOSE reference range effective 2017. Performed By: #### L 500.4050 #### [facility] [address] [place], [address] Potassium [Moles/Vol] 3.7 mmol/L Normal 3.5-5.1 [facility] Comment on above: Performed By: #### L 500.4050 #### [facility] [address] [place], [address] Sodium [Moles/Vol] 141 mmol/L Normal 136-145 [facility] Comment on above: Performed By: #### L 500.4050 #### [facility] [address] [place], [address] T PROT 6.3 g/dL Low 6.4-8.2 [facility] Comment on above: Performed By: #### L 500.4050 #### [facility] [address] [place], [address] Urea nitrogen [Mass/Vol] 12 mg/dL Normal 7-18 [facility] Comment on above: Performed By: #### L 500.4050 #### [facility] [address] [place], [address] Uric Acidon 01-12-2021 URIC 6.1 mg/dL High 2.6-6.0 [facility] Comment on above: Result Comment: The drugs N-Acetylcysteine and Metamizole may falsely depress this assay. Performed By: #### L 501.1400, L100.0500 ####[facility] [address] [place], [address] Operative Reporton Operative Report [facility] Medical Records Department [address] [place] [address] Operative Report 01/10/2118 MR#: [id number] Acct: [id number] Name: HILLARY FRAIRE Rep #: [id number] : 1990 30 From: Elli Lopez MD PCP: Dr. Chiki Gonzales MD Status:ADM IN Location: [id number] Assessment Plan (1) Vaginal delivery: (2) Meconium in amniotic fluid affecting management of mother, delivered: Vaginal Delivery Maternal Presentation Maternal Presentation: Spontaneous Rupture of Membranes and Medically Indicated Induction Maternal Presentation: Presented with PROM at 37.1 weeks gestation - cytotec and pitocin induction of labor performed Type of Induction: Pitocin and Cytotec Medical Reason for Induction: Premature Rupture of Membranes Operative Information Date of Procedure: 01/10/21 Pre-Operative Diagnosis: term gestation, PROM, Meconium fluid Post-Operative Diagnosis: same, live male Surgery / Procedure Performed: Spontaneous Vaginal Delivery Type of Anesthesia: Epidural Drain: Samuels to straight drain Estimated Blood Loss: 200 Time of Delivery: 08:08 Findings Description of Procedure: I arrived on unit evaluated the patient. Patient has been fully dilated and pushing for approximately 3-1/2 to 4 hours. Upon my exam it was felt that the infant was in the OP position with caput noted. Internal podalic version was performed to the MICHELINE position. Once rotation was performed with good maternal pushing efforts the head was and delivery of the head followed by the shoulders and the rest infant's body. Delayed cord clamping was performed as the infant was placed on the mother's chest. was vigorous at time of delivery and furnace reliner was present for delivery due to meconium fluid. Placenta delivered without complication and intact. First-degree vaginal laceration was repaired with 2-0 vicryl for hemostasis. Presentation: Vertex Amniotic Membrane Rupture Type: Spontaneous Amniotic Fluid Description: Moderate meconium Placental Delivery Description: Spontaneous Placenta Disposition: [facility] Specimen(s) Removed: Placenta Cord Vessel Description: 3 Vessels Cord Entanglement: None Infant A Gender: Male (1 minute): 8 (5 minute): 9 Delayed Cord Clamping: Yes Post Vaginal Delivery Medications Given After Delivery: IV Pitocin Episiotomy Description: None Laceration: Vaginal Extension/lac and 1st degree Complication Complications: None 01/10/21 0824 Cosigner Signature (if applicable): CC: Harrison Lopez; Dr. Chiki Gonzales MD Signed Normal [facility] ([facility]) Rupture Of Membraneson 01-09-2021 ROM Positive Abnormal Negative [facility] Comment on above: Result Comment: Amni otic fluid present indicates rupture of Membranes. RESULTS CALLED TO MARY CONRAD RN (OB) 01/09/21 0011 Jarad De Leon. REPORT READ BACK BY SAME . Performed By: #### L 205.1000 #### [facility] [address] [place], [address] CBC W/Diff, Automatedon 10-0 Platelets (Bld) [#/Vol] 212 10*3/uL Normal 150-450 [facility] Comment on above: Order Comment: Gelacio arreguin note: For this sample, a platelet estimate isprovided rather than a platelet count due to plateletclumping. Other parameters associated with this sample arenot affected by platelet clumping. If a more accurateplatelet count is required, a redraw of the patient will benecessary. Performed By: #### B TS, L100.0100 ####[facility] [id number] [place], [place], [address] COVID 19 AG RAPID (RN COLLEC T)on 01-09-2021 SARS-CoV-2 (COVID-19) RNA KEVIN+probe Ql (Unsp spec) *Negative results from patients with symptom onset beyond five days should be treated as presumptive and confirmed by a molecular assay if clinically necessary. Negative results should not be used as the sole basis for treatment or for patient management. COVID 19 AG RAPID (RN COLLECT) *Positive results do not differentiate between SARS-CoV and SARS-CoV-2. If differentation of the specific SARS virus is desired an additional sample and an additional order is required. COVID 19 AG RAPID (RN COLLECT) * This test has not been FDA cleared or approved; the test has been authorized by FDA under an Emergency Use Authorization (EAU) for use by laboratories certified under CLIA that meet the requirements to perform moderate, high, or waived complexity tests. COVID 19 AG RAPID (RN COLLECT) Normal Reference Range: Negative SARS-CoV-2 (COVID 19) Negative RAPID METHOD Quidel Michell Analyzer SOCO, lateral flow immunofluorescent Normal [facility] Comment on above: Performed By: #### M 100.505 #### [facility] [address] [place], [address] Comprehensive Metabolic Prof ilon 01-09-2021 Albumin [Mass/Vol] 2.6 g/dL Low 3.2-5.0 [facility] Comment on above: Performed By: #### L 501.1400, L501.0900, L500.4050 #### [facility] [address] [place], [address] Albumin/Globulin [Mass ratio] 0.6 {ratio} Low 0.9-2.4 [facility] Comment on above: Performed By: #### L 501.1400, L501.0900, L500.4050 #### [facility] [address] [place], [address] ALK P 105 U/L Normal 45-117 [facility] Comment on above: Performed By: #### L 501.1400, L501.0900, L500.4050 #### [facility] [address] [place], [address] ALT [Catalytic activity/Vol] 17 U/L Normal 13-56 [facility] Comment on above: Performed By: #### L 501.1400, L501.0900, L500.4050 #### [facility] [address] [place], [address] AST [Catalytic activity/Vol] 16 U/L Normal 15-37 [facility] Comment on above: Performed By: #### L 501.1400, L501.0900, L500.4050 #### [facility] [address] [place], [address] Bilirubin [Mass/Vol] 0.40 mg/dL Normal 0.20-1.00 [facility] Comment on above: Result Comment: For patients on eltrombopag therapy, use of Dimension [place] TBIL is not recommended. Performed By: #### L 501.1400, L501.0900, L500.4050 #### [facility] [address] [place], [address] BUN/CRE 15.8 RATIO Normal 10-20 [facility] Comment on above: Performed By: #### L 501.1400, L501.0900, L500.4050 #### [facility] [address] [place], [address] CA,Total 9.1 mg/dL Normal 8.5-10.1 [facility] Comment on above: Performed By: #### L 501.1400, L501.0900, L500.4050 #### [facility] [address] [place], [address] Chloride [Moles/Vol] 108 mmol/L High 98-107 [facility] Comment on above: Performed By: #### L 501.1400, L501.0900, L500.4050 #### [facility] [address] [place], [address] CO2 [Moles/Vol] 23.0 mmol/L Normal 21.0-32.0 [facility] Comment on above: Performed By: #### L 501.1400, L501.0900, L500.4050 #### [facility] [address] [place], [address] Creatinine [Mass/Vol] 0.89 mg/dL Normal 0.55-1.02 [facility] Comment on above: Result Comment: The validity of the calculated GFR GFRAA in patients over 70 years has not been determined. Clinical correlation is essential. Performed By: #### L 501.1400, L501.0900, L500.4050 #### [facility] [address] [place], [address] ECRCL 106.66 ml/min Normal [facility] Comment on above: Performed By: #### L 501.1400, L501.0900, L500.4050 #### [facility] [address] [place], [address] EST GFR - AA 96 mL/min Normal >60 [facility] Comment on above: Result Comment: Afri can [place] GFR Calc Performed By: #### L 501.1400, L501.0900, L500.4050 #### [facility] [address] [place], [address] GAP 8 Normal 5-15 [facility] Comment on above: Performed By: #### L 501.1400, L501.0900, L500.4050 #### [facility] [address] [place], [address] GFR/1.73 sq M.predicted among non-blacks MDRD (S/P/Bld) [Vol rate/Area] 79 mL/min/{1.73_m2} Normal >60 [facility] Comment on above: Result Comment: Non- GFR Calc Performed By: #### L 501.1400, L501.0900, L500.4050 #### [facility] [address] [place], [address] Globulin (S) [Mass/Vol] 4.3 g/dL High 2.2-4.2 [facility] Comment on above: Performed By: #### L 501.1400, L501.0900, L500.4050 #### [facility] [address] [place], [address] Glucose [Mass/Vol] 107 mg/dL High 74-106 [facility] Comment on above: Result Comment: Fast ing Glucose result from 100 to 125 mg/dL suggests IMPAIRED HOMEOSTASIS per A.D.A. criteria. Please note revised GLUCOSE reference range effective 2017. Performed By: #### L 501.1400, L501.0900, L500.4050 #### [facility] [address] [place], [address] Potassium [Moles/Vol] 4.2 mmol/L Normal 3.5-5.1 [facility] Comment on above: Performed By: #### L 501.1400, L501.0900, L500.4050 #### [facility] [address] [place], [address] Sodium [Moles/Vol] 139 mmol/L Normal 136-145 [facility] Comment on above: Performed By: #### L 501.1400, L501.0900, L500.4050 #### [facility] [address] [place], [address] T PROT 6.9 g/dL Normal 6.4-8.2 [facility] Comment on above: Performed By: #### L 501.1400, L501.0900, L500.4050 #### [facility] [address] [place], [address] Urea nitrogen [Mass/Vol] 14 mg/dL Normal 7-18 [facility] Comment on above: Performed By: #### L 501.1400, L501.0900, L500.4050 #### [facility] [address] [place], [address] H AND P Exam - OB/GYNon 10-0 H&P Exam - CARAMEL MAKER [facility] Medical Records Department [address] [place] [address] H P Exam - CARAMEL MAKER 01/09/21 0850 MR#: [id number] Acct: [id number] Name: HILLARY FRAIRE Rep #: [id number] : 1990 30 From: Galilea Abraham MD PCP: Dr. Chiki Gonzales MD Status:ADM IN Location: [id number] HPI - General General Date of Admission: 01/09/21 HPI Narrative HILLARY FRAIRE, is a 30 F who presents with SROM. Maternal Data Information Final BRITTANY: 01/30/21 Gestational age: 37 weeks [facility] Medical History (Updated 01/09/21 @ 08:[address] Galilea Abraham MD) Anxiety SROM (spontaneous rupture of membranes) Home Medications aspirin [Baby Aspirin] 81 mg PO DAILY 01/08/21 [History Last Taken 01/08/21 10:00] ferrous sulfate [iron] 325 mg PO BID 01/08/21 [History Last Taken 01/08/21 10:00] [id number]-[id number] [] tab PO DAILY 01/08/21 [History Last Taken 01/08/21 10:00] Allergy/AdvReac Type Severity Reaction Status Date / Time No Known Allergies Allergy Verified 01/08/21 23:15 Surgical History (Updated 01/09/21 @ 00:26 by Mary Hines) H/O wisdom tooth extraction Social History Smoking Status: Former smoker History Elective abortions Hx Para 0 Spontaneous abortions Hx # Term Pregnancies Ectopic pregnancies Hx # Pregnancies Multiple births # of living children NST FHR Rate Baby A Variability:: Moderate Accelerations:: 15 x 15 Uterine Activity:: quiet Vital Signs Vital Signs Vital Signs: 01/08/21 23:08 01/08/21 23:10 01/08/21 23:11 Temperature 97.0 F L 96.9 F L Temperature Source Temporal Pulse Rate 90 Blood Pressure 155/73 H BP Systolic 155 BP Diastolic 73 Pulse Ox 98 01/09/21 00:03 01/09/21 03:49 01/09/21 03:50 Temperature 97.5 F L Temperature Source Pulse Rate 85 76 84 Blood Pressure 134/77 H 140/76 H BP Systolic 134 140 BP Diastolic 77 76 Pulse Ox 98 01/09/21 07:15 01/09/21 07:16 01/09/21 08:39 Temperature 98.1 F 97.9 F Temperature Source Pulse Rate 74 Blood Pressure 135/75 H BP Systolic 135 BP Diastolic 75 Pulse Ox 01/09/21 08:40 Temperature Temperature Source Pulse Rate 76 Blood Pressure 136/74 H BP Systolic 136 BP Diastolic 74 Pulse Ox Weight Weight: 286 lb Body Mass Index (BMI) 38.7 Physical Exam Const alert and oriented x3 HEENT normocephalic Chest inspection of chest normal Resp normal respiratory effort GI soft to palpation and non-tender Inspection: gravid external exam normal Narrative: cvx - closed/thick/high on admission Labs Labs Labs: Blood Type A POSITIVE Antibody Screen NEGATIVE Hct 33.0 % (37-47) L Hgb 11.0 g/dL (12.0-15.0) L See [facility] ) Assessment Plan (1) SROM (spontaneous rupture of membranes): COMMENT: 37 weeks PLAN: Admit to L D Induction for SROM - s/p 2 doses of cytotec. Plan for pitocin and IUPC placement when able. Pain - epidural as desired GBS negative COVID negative Routine care EFW - less than 4500g, patient with adequate pelvis 01/13/21 0134 Cosigner Signature (if applicable): CC: Dr. Galilea Abraham MD; Dr. Chiki Gonzales MD Signed Normal [facility] Protein+Creatinine Ratio,Uri neon 01-09-2021 PROT:CRE RATIO 315 mg/g CRE High 0-200 [facility] Comment on above: Performed By: #### L 501.1400, L501.0900, L500.4050 #### [facility] [address] [place], [address] Protein (U) [Mass/Vol] 7.3 mg/dL Normal <11.9 [facility] Comment on above: Performed By: #### L 501.1400, L501.0900, L500.4050 #### [facility] [address] [place], [address] UR CREAT 23.20 mg/dL Normal NO RANGE EST. [facility] Comment on above: Performed By: #### L 501.1400, L501.0900, L500.4050 #### [facility] [address] [place], [address] Type AND Screenon 01-09-2021 Ab SCREEN GEL Negative Normal [facility] Comment on above: Order Comment: Labor Performed By: #### B TS, L100.0100 ####[facility] [address] [place], [address] ABO and Rh group Nom (Bld) Blood group A Rh(D) positive Normal [facility] Comment on above: Order Comment: Labor Performed By: #### B TS, L100.0100 ####[facility] [address] [place], [place], [id number] Uric Acidon 01-09-2021 URIC 5.4 mg/dL Normal 2.6-6.0 [facility] Comment on above: Result Comment: The drugs N-Acetylcysteine and Metamizole may falsely depress this assay. Performed By: #### L 501.1400, L501.0900, L500.4050 #### [facility] [address] [place], [address] Vital Signs Date Time Vital Sign Value Performing Clinician Sergei palomares 11-26-2024 10:53-0400 Body mass index (BMI) [Ratio] 37.97 kg/m2 Sheyla Moreno APRN.CNM Work Phone: [facility] 11-26-2024 10:53-0400 Body weight 127.01 kg Sheyla Moreno APRN.CNM Work Phone: [facility] 11-26-2024 10:53-0400 Diastolic blood pressure 78 mm[Hg] Sheyla Moreno APRN.CNM Work Phone: [facility] 11-26-2024 10:53-0400 Systolic blood pressure 126 mm[Hg] Sheyla Moreno APRN.CNM Work Phone: [facility] 10-25-2024 14:23-0400 Body mass index (BMI) [Ratio] 37.05 kg/m2 Kelly Baltazar MD Work Phone: [facility] 10-25-2024 14:23-0400 Body weight 123.92 kg Kelly Baltazar MD Work Phone: [facility] 10-25-2024 14:23-0400 Diastolic blood pressure 72 mm[Hg] Kelly Baltazar MD Work Phone: [facility] 10-25-2024 14:23-0400 Systolic blood pressure 120 mm[Hg] Kelly Baltazar MD Work Phone: [facility] 09-27-2024 15:15-0400 Body mass index (BMI) [Ratio] 37.16 kg/m2 Adina Krueger MD Work Phone: [facility] 09-27-2024 15:15-0400 Body weight 124.29 kg Adina Krueger MD Work Phone: [facility] 09-27-2024 15:15-0400 Diastolic blood pressure 70 mm[Hg] Adina Krueger MD Work Phone: [facility] 09-27-2024 15:15-0400 Systolic blood pressure 134 mm[Hg] Adina Krueger MD Work Phone: [facility] 09-03-2024 15:08-0400 Body mass index (BMI) [Ratio] 36.75 kg/m2 lEli Gaytan MD Work Phone: [facility] 09-03-2024 15:08-0400 Body weight 122.92 kg Elli Gaytan MD Work Phone: [facility] 09-03-2024 15:08-0400 Diastolic blood pressure 68 mm[Hg] Elli Gaytan MD Work Phone: [facility] 09-03-2024 15:08-0400 Systolic blood pressure 142 mm[Hg] Elli Gaytan MD Work Phone: [facility] 08-02-2024 15:08-0400 Body mass index (BMI) [Ratio] 37.43 kg/m2 Polly Hamilton MD Work Phone: [facility] 08-02-2024 15:08-0400 Body weight 125.19 kg Polly Hamilton MD Work Phone: [facility] 08-02-2024 15:08-0400 Diastolic blood pressure 76 mm[Hg] Polly Hamilton MD Work Phone: [facility] 08-02-2024 15:08-0400 Systolic blood pressure 138 mm[Hg] Polly Hamilton MD Work Phone: [facility] 07-05-2024 15:21-0400 Body mass index (BMI) [Ratio] 37.78 kg/m2 Kelly Baltazar MD Work Phone: [facility] 07-05-2024 15:21-0400 Body weight 126.37 kg Kelly Baltazar MD Work Phone: [facility] 07-05-2024 15:21-0400 Diastolic blood pressure 80 mm[Hg] Kelly Baltazar MD Work Phone: [facility] 07-05-2024 15:21-0400 Systolic blood pressure 120 mm[Hg] Kelly Baltazar MD Work Phone: [facility] 06-07-2024 14:40-0500 Body height 182.9 cm Leanne Kenia MARKETING SEGMENT MANAGER.SPOOL WINDER Work Phone: [facility] 06-07-2024 14:40-0500 Body mass index (BMI) [Ratio] 38 kg/m2 Leanne Kenia MARKETING SEGMENT MANAGER.SPOOL WINDER Work Phone: [facility] 06-07-2024 14:40-0500 Body weight 127.1 kg Leanne Decatur MARKETING SEGMENT MANAGER.SPOOL WINDER Work Phone: [facility] 06-07-2024 14:40-0500 Diastolic blood pressure 70 mm[Hg] Leanne Decatur MARKETING SEGMENT MANAGER.SPOOL WINDER Work Phone: [facility] 06-07-2024 14:40-0500 Systolic blood pressure 118 mm[Hg] Leanne Kenia MARKETING SEGMENT MANAGER.SPOOL WINDER Work Phone: [facility] 05-24-2024 08:03-0500 Body mass index (BMI) [Ratio] 38.63 kg/m2 Crissy Plotlavell MARKETING SEGMENT MANAGER.CNM Work Phone: [facility] 05-24-2024 08:03-0500 Body weight 129.18 kg Crissy Tom MARKETING SEGMENT MANAGER.CNM Work Phone: [facility] 05-24-2024 08:03-0500 Diastolic blood pressure 68 mm[Hg] Crissy Plotlavell MARKETING SEGMENT MANAGER.CNM Work Phone: [facility] 05-24-2024 08:03-0500 Systolic blood pressure 124 mm[Hg] Crissy Tom MARKETING SEGMENT MANAGER.CNM Work Phone: [facility] 02-11-2022 08:15-0500 Body height 182.9 cm Sheyla Moreno MARKETING SEGMENT MANAGER.CNM Work Phone: [facility] 02-11-2022 08:15-0500 Body weight 118.93 kg Sheyla Moreno MARKETING SEGMENT MANAGER.CNM Work Phone: [facility] 02-11-2022 08:15-0500 Diastolic blood pressure 70 mm[Hg] Sheyla Moreno MARKETING SEGMENT MANAGER.CNM Work Phone: [facility] 02-11-2022 08:15-0500 Systolic blood pressure 118 mm[Hg] Sheyla Moreno MARKETING SEGMENT MANAGER.CNM Work Phone: [facility] Encounters Encounter Date Encounter Type Care Provider Facility Start: 11-26-2024 End: 11-26-2024 ambulatory SHEYLA MORENO Facility:[facility] Start: 11-26-2024 End: 11-26-2024 Patient encounter procedure i Tech 1 [employer] [facility] Maternal Medicine Comment on above: Obesity affecting pr egnancy in first trimester, unspecified obesity type (HCC) (Primary Dx); Chronic hypertension in (HCC) , supervisi on, high-risk, unspecified trimester (HCC) (Primary Dx); Antepartum anemia complicating in third trimester (HCC); Chronic hypertension in (HCC); Obesity affecting in third trimester, unspecified obesity type (HCC); Generalized anxiety disorder; 33 weeks gestation of (HCC) Start: 11-26-2024 End: 11-26-2024 ambulatory SHEYLA MORENO Facility:[facility] Start: 11-08-2024 End: 11-08-2024 ambulatory KELLY BALTAZAR Facility:[facility] Start: 10-29-2024 End: 10-29-2024 Telephone encounter Kelly Baltazar MD Work Phone: OB/Gynecology Comment on above: Breast Pump Start: 10-26-2024 End: 10-26-2024 ambulatory Kelly Baltazar MD Work Phone: OB/Gynecology Start: 10-26-2024 End: 10-26-2024 Follow-up encounter Kelly Baltazar MD Work Phone: OB/Gynecology Comment on above: Test results and fol low up questions Start: 10-25-2024 End: 10-25-2024 Patient encounter procedure Kelly Baltazar MD Work Phone: OB/Gynecology Comment on above: UTI (urinary tract i nfection) in , antepartum (HCC) (Primary Dx); Supervision of high risk in second trimester (HCC); Chronic hypertension in (HCC); 28 weeks gestation of (HCC) Start: 10-25-2024 End: 10-25-2024 Patient encounter procedure Whi Tech 1 [employer] [facility] [facility]aternal [facility] Comment on above: Encounter for ultras ound to check growth (HCC) (Primary Dx); Chronic hypertension in (HCC); 28 weeks gestation of (HCC) Start: 10-25-2024 End: 10-25-2024 ambulatory ADINA KRUEGER Facility:[facility] Start: 09-27-2024 End: 09-27-2024 Patient encounter procedure Adina Krueger MD Work Phone: OB/Gynecology Comment on above: Supervision of high risk in second trimester (HCC) (Primary Dx); UTI (urinary tract infection) in , antepartum (HCC); Chronic hypertension in (HCC); 24 weeks gestation of (HCC) Start: 09-27-2024 End: 09-27-2024 ambulatory CHIKI GONZALES Facility:[facility] Start: 09-20-2024 End: 11-20-2024 Follow-up encounter Elli Gaytan MD Work Phone: OB/Gynecology Start: 09-17-2024 End: 09-17-2024 ambulatory CHIKI GONZALES Facility:[facility] Start: 09-16-2024 End: 09-21-2024 ambulatory Elli Gaytan MD Work Phone: OB/Gynecology Comment on above: Antibiotic/ urine te st Start: 09-06-2024 End: 09-07-2024 Follow-up encounter Adina Krueger MD Work Phone: OB/Gynecology Start: 09-03-2024 End: 09-03-2024 Patient encounter procedure Elli Gaytan MD Work Phone: OB/Gynecology Comment on above: Supervision of high risk in second trimester (HCC) (Primary Dx); Chronic hypertension in (HCC); Obesity in (HCC); History of pre-eclampsia; UTI (urinary tract infection) in , antepartum (HCC); 21 weeks gestation of ([facility]) Encounter for anatomic survey ([facility]) (Primary Dx); 8 weeks gestation of ([facility]); Obesity affecting in second trimester, unspecified obesity type ([facility]) Start: 09-03-2024 End: 09-03-2024 ambulatory [facility] Facility:[facility] Start: 08-04-2024 End: 08-04-2024 Follow-up encounter Radha Hammer APRN.SP[employer] W[employer]ER Work Phone: OB/Gynecology Comment on above: Results Start: 08-02-2024 End: 08-02-2024 Patient encounter procedure Polly Hamilton MD Work Phone: OB/Gynecology Comment on above: , supervisi on, high-risk, unspecified trimester (HCC) (Primary Dx); BMI 38.0-38.9,adult; 16 weeks gestation of ([facility]); UTI (urinary tract infection) in , antepartum ([facility]) Start: 08-02-2024 End: 08-02-2024 ambulatory CHIKI GONZALES Facility:[facility] Start: 07-13-2024 End: 07-13-2024 ambulatory Leanne Barahonacalf MARKETING SEGMENT MANAGER.SPOOL WINDER Work Phone: OB/Gynecology Start: 07-13-2024 End: 07-13-2024 Patient encounter procedure Leanne Barahonacalf MARKETING SEGMENT MANAGER.SPOOL WINDER Work Phone: OB/Gynecology Comment on above: August 02 appointme nt Start: 07-08-2024 End: 07-08-2024 Telephone encounter Kelly Baltazar MD Work Phone: OB/Gynecology Comment on above: Orders Start: 07-05-2024 End: 07-05-2024 ambulatory [facility] Facility:[facility] Start: 07-05-2024 End: 07-05-2024 Patient encounter procedure Kelly Baltazar MD Work Phone: OB/Gynecology Comment on above: , supervisi on, high-risk, unspecified trimester (Primary Dx); 12 weeks gestation of ; UTI (urinary tract infection) in , antepartum; Elevated LFTs 8 weeks gestation of Start: 07-05-2024 End: 09-04-2024 Follow-up encounter Kelly Baltazar MD Work Phone: OB/Gynecology Start: 06-07-2024 End: 06-07-2024 [facility] Facility:[facility] Start: 06-07-2024 End: 06-07-2024 Patient encounter procedure Leanne Decatur MARKETING SEGMENT MANAGER.SPOOL WINDER Work Phone: OB/Gynecology Comment on above: BMI 38.0-38.9,adult (Primary Dx); with uncertain dates, antepartum; Screening for cervical cancer; Screen for STD (sexually transmitted disease); 8 weeks gestation of ; History of anemia; Generalized anxiety disorder; , supervision, high-risk, unspecified trimester Start: 06-07-2024 End: 06-09-2024 Follow-up encounter Leanne Aquino APRN.SPO[employer] WINDER Work Phone: OB/Gynecology Comment on above: UTI (urinary tract i nfection) in , antepartum (Primary Dx) Start: 05-24-2024 End: 05-24-2024 ambulatory CRISSY TOM Facility:[facility] Start: 05-24-2024 End: 05-24-2024 Patient encounter procedure Crissy Tom MARKETING SEGMENT MANAGER.CNM Work Phone: OB/Gynecology Comment on above: Missed menses (Prima ry Dx); 6 weeks gestation of ; Spotting in early ; Obesity affecting in first trimester, unspecified obesity type; Nausea Start: 05-12-2024 End: 05-12-2024 ambulatory Sheyla Josh BALES.CNM Work Phone: OB/Gynecology Comment on above: Early Start: 03-03-2023 ambulatory Sheyla Josh BALES.CNM Work Phone: OB/Gynecology Comment on above: Blood Work Request Start: 01-20-2023 Refill Sheyla Josh BALES.CNM Work Phone: OB/Gynecology Comment on above: Refill Request Start: 03-01-2022 ambulatory Sheyla Josh BALES.CNM Work Phone: OB/Gynecology Comment on above: Medicine while breas tfeeding Start: 02-11-2022 ambulatory Sheyla Josh BALES.CNM Work Phone: OB/Gynecology Comment on above: Question regarding T SH BLD Start: 02-11-2022 End: 02-11-2022 Patient encounter procedure Sheyla Josh BALES.CARLOS Work Phone: OB/Gynecology Comment on above: Encounter for gyneco logical examination (general) (routine) without abnormal findings (Primary Dx); Malaise and fatigue; Encounter for surveillance of contraceptive pills Start: 02-11-2022 End: 02-11-2022 Patient encounter status Sheyla Josh BALES.CARLOS Work Phone: OB/Gynecology Start: 01-28-2022 Refill Sheyla Josh BALES.CARLOS Work Phone: OB/Gynecology Comment on above: Refill Request Start: 01-26-2022 Refill Sheyla Josh BALES.CNM Work Phone: OB/Gynecology Comment on above: Refill Request Start: 01-15-2022 Refill Sheyla Josh BALES.CNHarrison Work Phone: OB/Gynecology Comment on above: Refill Request Start: 11-14-2020 ambulatory Kelly Geiger Work Phone: OB/Gynecology Comment on above: RE: Test Result Ques tion Start: 06-08-2020 End: 07-19-2020 Patient requested procedure Sheyla Moreno APRN.CNM Work Phone: [facility] Start: 05-29-2020 End: 05-29-2020 Telephone encounter Sheyla Moreno Work Phone: OB/Gynecology Comment on above: Care (+ pre gnancy test) Procedures Date Procedure Procedure Detail Performing Clinician Start: 11-26-2024 Us preg uterus after 1st trimest 1/1st gestation Elli Gaytan MD Work Phone: Start: 10-25-2024 Us preg uterus after 1st trimest 1/1st gestation Elli Gaytan MD Work Phone: Start: 09-03-2024 Urnls dip stick/tabl et rgnt auto w/o microscopy Elli Gaytan MD Work Phone: Start: 09-03-2024 Us preg uterus after 1st trimest 1/1st gestation Leanne Decatur MARKETING SEGMENT MANAGER.SPOOL WINDER Work Phone: Start: 07-05-2024 Us preg uterus after 1st trimest 1/1st gestation Leanne Kenia MARKETING SEGMENT MANAGER.SPOOL WINDER Work Phone: Start: 06-07-2024 Antibody screen ADINA EVANS Comment on above: Order Comment: Speci men Type: BLOOD SPECIMEN Ordering Facility: [facility] Address: [address] [place] [address] Performed By: #### T SPN #### CC MAIN BLOOD BANK [facility] [id number] [address] [place] [address] [place] [address] [place] Start: 06-07-2024 Us uterus limited 1/> fetuses Leanne Decatur MARKETING SEGMENT MANAGER.SPOOL WINDER Work Phone: Start: 05-24-2024 UA DIP,URINE HCG (POC) Crissy Tom APRN.CNM Work Phone: Start: 12-13-2020 End: 10-27-2024 Vaccine refused by patient COVID-19 vaccine series declined Sheyla Moreno APRN.CNM Work Phone: Plan of Treatment Date Care Activity Detail Author Start: 11-13-2030 Urine microalbumin profile [facility] Start: 06-07-2029 Screening for malign ant neoplasm of cervix Cervical Cancer Screening [facility] Start: 06-15-2025 HPV TESTING HPV TESTING [facility] Start: 06-15-2025 PAP TESTING PAP TESTING [facility] Start: 06-15-2025 Screening for malign ant neoplasm of cervix Cervical Cancer Screening [facility] Start: 12-27-2024 End: 12-27-2024 Patient encounter procedure Maternal Medicine Comment on above: Growth Growth/OB Start: 12-20-2024 End: 12-20-2024 Patient encounter procedure 12/20/2024 10:50 AM EDT Office Visit OB/Gynecology [address] [place] [address] Kelly Baltazar MD [address] [place] [address] OB OB/Gynecology Comment on above: OB Start: 12-13-2024 End: 12-13-2024 Patient encounter procedure 12/13/2024 10:10 AM EDT Routine Office Visit OB/Gynecology [address] [place] [address] Kelly Baltazar MD [address] [place] [address] OB OB/Gynecology Comment on above: OB Start: 12-06-2024 Influenza vaccination C [facility] Start: 12-06-2024 RSV Vaccine (1 - Ris k 1-dose series) RSV Vaccine (1 - Risk 1-dose series) [facility] Start: 11-26-2024 End: 11-26-2024 Patient encounter procedure Maternal Medicine Comment on above: Growth/OB Start: 11-22-2024 End: 11-22-2024 Patient encounter procedure 11/22/2024 1:30 PM EDT Routine Office Visit OB/Gynecology [address] [place] [address] Kelly Baltazar MD [address] [place] [address] OB OB/Gynecology Comment on above: OB Start: 11-08-2024 End: 11-08-2024 Patient encounter procedure 11/08/2024 10:40 AM EDT Routine Office Visit OB/Gynecology [address] [place] [address] Kelly Baltazar MD [address] [place] [address] OB OB/Gynecology Comment on above: OB Start: 10-25-2024 End: 10-25-2024 Patient encounter procedure 10/25/2024 3:10 PM EDT Routine Office Visit OB/Gynecology [address] [place] [address] Kelly Baltazar MD [address] [place] [address] OB Routine OB/Gynecology Comment on above: OB Routine Start: 10-25-2024 End: 10-25-2024 ambulatory 10/25/2024 3:00 PM EDT Results Only [facility] Laboratory [address] [place] [address] Glucose test and Labs [facility] Comment on above: Glucose test and Lab s Start: 10-25-2024 End: 10-25-2024 Patient encounter procedure 10/25/2024 1:30 PM EDT Routine Office Visit Maternal Medicine [address] [place] [address] Growth Maternal Medicine Comment on above: Growth Start: 09-27-2024 End: 09-27-2024 Patient encounter procedure OB/Gynecology Comment on above: OB Routine OB Routine - needs T OC once finished with Augmentin Start: 09-27-2024 End: 12-27-2024 ANEMIA REFLEX PANEL ANEMIA REFLEX PANEL Lab Routine Expected: 09/27/2024, Expires: 12/27/[address] [facility] Comment on above: Expected: 09/27/2024 , Expires: 12/27/2024 Start: 09-27-2024 End: 09-27-2025 GESTATIONAL GLUCOSE SCREEN, 1-HOUR, 50 GRAM, NON-FASTING GESTATIONAL GLUCOSE SCREEN, 1-HOUR, 50 GRAM, NON-FASTING Lab Routine Expected: 09/27/2024, Expires: 09/27/2025 [facility] Work Phone: Comment on above: Expected: 09/27/2024 , Expires: 09/27/2025 Start: 09-27-2024 End: 09-27-2025 SYPHILIS TREPONEMAL W/REFLEX SYPHILIS TREPONEMAL W/REFLEX Lab Routine Expected: 09/27/2024, Expires: 09/27/[address] [facility] Comment on above: Expected: 09/27/2024 , Expires: 09/27/2025 Start: 09-14-2024 End: 12-14-2024 Bacteria identified in Urine by Culture BACTERIAL CULTURE, URINE Microbiology Routine UTI (urinary tract infection) in , antepartum (HCC) Expected: 09/14/2024 (Approximate), Expires: 12/14/[address] [facility] Comment on above: Expected: 09/14/2024 (Approximate), Expires: 12/14/2024 Start: 09-03-2024 End: 09-03-2024 Patient encounter procedure Maternal Medicine Comment on above: Anatomy Scan OB Routine Start: 08-02-2024 End: 08-02-2024 Patient encounter procedure 08/02/2024 3:10 PM EDT Routine Office Visit OB/Gynecology [address] [place] [address] Polly Hamilton MD [address] [place] [address] OB Routine OB/Gynecology Comment on above: OB Routine Start: 07-05-2024 End: 07-05-2024 Patient encounter procedure Maternal Medicine Comment on above: Nuchal OB Routine Start: 07-05-2024 End: 10-04-2024 Chromosome 21 trisomy [Presence] in Blood or Tissue by Cytogenetics [id number] PLUS Lab Routine 8 weeks gestation of Expected: 07/05/2024, Expires: 10/04/[address] [facility] Comment on above: Expected: 07/05/2024 , Expires: 10/04/2024 Start: 06-07-2024 End: 06-07-2024 Patient encounter procedure 06/07/2024 2:45 PM EST Initial Office Visit OB/Gynecology [address] [place] [address] Leanne Aquino APRN.SPOOL WINDER [address] [place] [address] New ob OB/Gynecology Comment on above: New ob Start: 06-07-2024 End: 09-06-2024 ANEMIA REFLEX PANEL [facility] Work Phone: Comment on above: Expected: 06/07/2024 , Expires: 09/06/2024 Start: 06-07-2024 End: 09-06-2024 Comprehensive metabolic 2000 panel - Serum or Plasma [facility] Comment on above: Expected: 06/07/2024 , Expires: 09/06/2024 Start: 06-07-2024 End: 09-06-2024 Hemoglobin A1c in Blood [facility] Comment on above: Expected: 06/07/2024 , Expires: 09/06/2024 Start: 06-07-2024 End: 09-06-2024 Hepatitis B virus surface Ag [Presence] in Serum [facility] Comment on above: Expected: 06/07/2024 , Expires: 09/06/2024 Start: 06-07-2024 End: 09-06-2024 Hepatitis C virus Ab [Presence] in Serum [facility] Comment on above: Expected: 06/07/2024 , Expires: 09/06/2024 Start: 06-07-2024 End: 09-06-2024 HIV 1+2 Ab [Presence] in Serum or Plasma by Immunoassay [facility] Comment on above: Expected: 06/07/2024 , Expires: 09/06/2024 Start: 06-07-2024 End: 06-07-2025 OBSTETRIC ULTRASOUND WHI OBSTETRIC ULTRASOUND WHI Anc Imaging Routine 8 weeks gestation of Expected: 06/07/2024, Expires: 06/07/[address] [facility] Comment on above: Expected: 06/07/2024 , Expires: 06/07/2025 Start: 06-07-2024 End: 09-06-2024 Protein/Creatinine [Mass Ratio] in Urine [facility] Comment on above: Expected: 06/07/2024 , Expires: 09/06/2024 Start: 06-07-2024 End: 09-06-2024 RUBELLA IGG ANTIBODY [facility] Comment on above: Expected: 06/07/2024 , Expires: 09/06/2024 Start: 06-07-2024 End: 09-06-2024 SYPHILIS TREPONEMAL W/REFLEX [facility] Comment on above: Expected: 06/07/2024 , Expires: 09/06/2024 Start: 06-07-2024 End: 09-06-2024 TYPE + SCREEN [facility] Comment on above: Expected: 06/07/2024 , Expires: 09/06/2024 Start: 06-07-2024 End: 06-07-2024 Patient encounter procedure 06/07/2024 10:30 AM EST Routine Office Visit OB/Gynecology [address] [place], [place] [id number] Crissy Tom APRN.[facility] [address] [place] [address] Last cycle 04/09/2024, expecting, took 2 at home test OB/Gynecology Comment on above: Last cycle , expecting, took 2 at home test Start: 12-07-2023 Covid-19 Vaccine ( season) Covid-19 Vaccine ( season) [facility] Start: 12-07-2023 Influenza vaccination Influenza Vacc ine (#1) [facility] Start: 12-06-2022 Influenza vaccination Influenza Vacc ine (#1) [facility] Start: 04-07-2022 Depression Assessment Depression Ass essment [facility] Start: 02-11-2022 End: 04-13-2022 Thyrotropin [Units/volume] in Serum or Plasma [facility] Work Phone: Comment on above: Expected: 02/11/2022 , Expires: 04/13/2022 Start: 12-06-2021 Influenza vaccination INFLUENZA (#1) [facility] Start: 04-07-2021 DEPRESSION ASSESSMENT DEPRESSION ASS ESSMENT [facility] Start: 2020 HPV TESTING HPV TESTING [facility] Start: 12-07-2019 Influenza vaccination INFLUENZA (#1) [facility] Start: 2017 HPV Vaccine (1 - 3-d ose SCDM series) HPV Vaccine (1 - 3-dose SCDM series) [facility] Start: 2011 PAP TESTING PAP TESTING [facility] Start: 2009 Hepatitis B Vaccine (1 of 3 - 19+ 3-dose series) Hepatitis B Vaccine (1 of 3 - 19+ 3-dose series) [facility] Start: 2009 Urine microalbumin profile DTAP,TDAP,TD (1 - Tdap) [facility] Start: 2008 Anxiety Screening Anxiety Screening [facility] Start: 2008 Depression Screening Depression Scre ening [facility] Start: 2008 HEPATITIS C SCREENING HEPATITIS C SC REENING [facility] Start: 2008 HIV SCREENING HIV SCREENING [facility] Start: 2002 Adult depression screening assessment DEPRESSION SCREENING [facility] Start: 1990 COVID-19 VACCINE (#1) COVID-19 VACCI NE (#1) [facility] Start: 1990 HEPATITIS B (1 of 3 - 3-dose series) HEPATITIS B (1 of 3 - 3-dose series) [facility] Start: 1990 Hepatitis B Vaccine (1 of 3 - 3-dose series) Hepatitis B Vaccine (1 of 3 - 3-dose series) [facility] Bacteria identified in Urine by Culture BACTERIAL CULTURE, URINE Microbiology Routine 8 weeks gestation of 06/07/2024 3:39 PM EST [facility] Bacteria identified in Urine by Culture BACTERIAL CULTURE, URINE Microbiology Routine 12 weeks gestation of UTI (urinary tract infection) in , antepartum , supervision, high-risk, unspecified trimester 07/05/2024 3:48 PM EDT [facility] Work Phone: Bacteria identified in Urine by Culture BACTERIAL CULTURE, URINE Microbiology Routine UTI (urinary tract infection) in , antepartum ([facility]) 08/02/2024 3:21 PM T [facility] Work Phone: Bacteria identified in Urine by Culture BACTERIAL CULTURE, URINE Microbiology Routine Supervision of high risk in second trimester ([facility]) History of pre-eclampsia UTI (urinary tract infection) in , antepartum ([facility]) 21 weeks gestation of ([facility]) 09/03/2024 3:20 PM EDT [facility] Bacteria identified in Urine by Culture BACTERIAL CULTURE, URINE Microbiology Routine UTI (urinary tract infection) in , antepartum ([facility]) Supervision of high risk in second trimester ([facility]) Chronic hypertension in ([facility]) 24 weeks gestation of ([facility]) Ordered: 09/27/[address] [facility] Comment on above: Ordered: 09/27/2024 Bacteria identified in Urine by Culture BACTERIAL CULTURE, URINE Microbiology Routine UTI (urinary tract infection) in , antepartum ([facility]) Supervision of high risk in second trimester ([facility]) Chronic hypertension in ([facility]) 28 weeks gestation of ([facility]) 10/25/2024 3:01 PM T [facility] Work Phone: Chlamydia trachomatis+Neisseria gonorrhoeae DNA [Presence] in Unspecified specimen by KEVIN with probe detection GONORRHEA/CHLAMYDIA NAAT Lab Routine Screen for STD (sexually transmitted disease) 8 weeks gestation of 06/07/2024 3:39 PM [facility] End: 05-29-2021 HCG.beta subunit Qn HCG QUANTITATIVE Lab Routine Threatened miscarriage 1 Occurrences starting 05/29/2020 until 05/29/[address] [facility] Comment on above: 1 Occurrences starti ng 05/29/2020 until 05/29/2021 HCG.beta subunit Qn HCG QUANTITA TIVE Lab Routine Threatened miscarriage 05/29/2020 4:41 PM [facility] End: 01-25-2025 OBSTETRIC ULTRASOUND WHI OBSTETRIC ULTRASOUND WHI Anc Imaging Routine Chronic hypertension in (HCC) 21 weeks gestation of ([facility]) Once per month for 5 Occurrences starting 09/03/2024 until 01/25/2025 [facility] Work Phone: Comment on above: Once per month for 5 Occurrences starting 09/03/2024 until 01/25/2025 PAP TEST PAP TEST Lab [facility] patsy Screening for cervical cancer 8 weeks gestation of 06/07/2024 3:39 PM EST [facility] TRICHOMONAS VAGINALI S NAAT TRICHOMONAS VAGINALIS NAAT Lab Routine Screen for STD (sexually transmitted disease) 8 weeks gestation of 06/07/2024 3:39 PM EST [facility] UA DIP,URINE HCG (POC) UA DIP,UR INE HCG (POC) Lab Routine UTI (urinary tract infection) in , antepartum (HCC) Ordered: 09/07/2024 [facility] Work Phone: Comment on above: Ordered: 09/07/2024 [facility] Immunizations Immunization Date Immunization Notes Care Provider Ijeoma staley 11-13-2020 tetanus toxoid, redu rosemary diphtheria toxoid, and acellular pertussis vaccine, adsorbed Sheyla Moreno MARKETING SEGMENT MANAGER.CNM Work Phone: [facility] Payers Date Payer Category Payer [facility] PPO OOS [id number] 2023 Unknown [id number] 2020 Unknown [id number] 2006 Private Health Insurance [employer] PPO [id number] 2006-Present PPO [id number] Social History Date Type Detail Facility Start: 08-08-2012 Tobacco smoking stat us GAIS Never smoker [facility] Start: 08-08-2012 Alcohol [facility] Start: 1990 Sex Assigned At Not on file C [facility] Start: 12-17-2020 End: 01-16-2021 Exposure to SARS-CoV-2 (event) Not sure [facility] Start: 06-08-2020 End: 06-07-2024 Tobacco smoking status NHIS Ex-smoker [facility] Work Phone: Start: 06-08-2009 End: 06-08-2017 History of tobacco use Current smoker [facility] Work Phone: Start: 06-08-2009 End: 06-08-2017 History of tobacco use Cigarette Smoker [facility] Work Phone: Start: 06-08-2020 End: 05-24-2024 Tobacco use and exposure Smokeless tobacco non-user [facility] Work Phone: Start: 02-20-2021 End: 11-08-2024 Alcohol intake Ex-drinker (finding) [facility] Start: 06-08-2020 Education [address] [facility] Start: 06-08-2020 Alcohol Comment social occasional dr mclaughlin [facility] Start: 02-11-2022 End: 04-09-2023 History of Social function [facility] Start: 02-11-2022 End: 04-09-2023 Tobacco use panel [facility] Start: 03-08-2012 National Score (1-100), lower number is lower risk [address] [facility] Start: 1990 Sex assigned at Female C [facility] Start: 05-20-2024 Gender identity Identifies as female gender (finding) [facility] Start: 06-07-2024 Tobacco use and exposure Former smokeless tobacco user [facility] Start: 06-07-2024 Tobacco Comment Nicotine pouch discontinued 04/[address] [facility] Start: 04-23-[address] [facility] Goals Date Patient Goal Desired Activity /State Personal health goal Clinical Notes 11-15-2020 to 11-29-2024 Quick Notes - Sheyla Moreno APRN.CNM - 11/29/2024 8:12 AM EDTPrenatal Quick Notes - Sheyla Moreno APRN.CNM - 11/29/2024 8:12 AM EDTPatient InstructionsPatient Instructions Note Date & Type Note Facility 11-29-2024 Progress note Formatting of t his note might be different from the original. FLAKO-S: Hillary Fraire is a 34 year old female who presents at 33w0d with BRITTANY:01/14/2025, by Last Menstrual Period for a routine visit. Denies headache, visual changes, chest pain, shortness of breath, vaginal bleeding, leakage of fluid, or dysuria. Feeling well, no complaints. O: See flow sheet Gen: No apparent distress Abd: Gravid, nontender ASSESSMENT/PLAN: 1. , supervision, high-risk, unspecified trimester -Continue PNV and ASA 2. Antepartum anemia complicating in third trimester - ANEMIA REFLEX PANEL - Continue Iron Supplement 3. Chronic hypertension in -Stable no medication -Growth US every 4 weeks -IOL at 39 weeks -Daily BP check, normal per patient, did not have log today. Reviewed S&S of preeclampsia and when to call. 4. Obesity affecting in third trimester, unspecified obesity type -Pregravid BMI 38 -Growth US every 4 weeks -NST weekly at 36 weeeks 5. Generalized anxiety disorder -Coping well 6. 33 weeks gestation of PTL precautions reviewed and when to call RTO in 2 weeks Sheyla Moreno APRN.CNM [facility] 11-29-2024 Miscellaneous Notes FLAKO-S: Hillary Fraire is a 34 year old female who presents at 33w0d with BRITTANY:01/14/2025, by Last Menstrual Period for a routine visit. Denies headache, visual changes, chest pain, shortness of breath, vaginal bleeding, leakage of fluid, or dysuria. Feeling well, no complaints. O: See flow sheet Gen: No apparent distress Abd: Gravid, nontender ASSESSMENT/PLAN: 1. , supervision, high-risk, unspecified trimester -Continue PNV and ASA 2. Antepartum anemia complicating in third trimester - ANEMIA REFLEX PANEL - Continue Iron Supplement 3. Chronic hypertension in -Stable no medication -Growth US every 4 weeks -IOL at 39 weeks -Daily BP check, normal per patient, did not have log today. Reviewed S&S of preeclampsia and when to call. 4. Obesity affecting in third trimester, unspecified obesity type -Pregravid BMI 38 -Growth US every 4 weeks -NST weekly at 36 weeeks 5. Generalized anxiety disorder -Coping well 6. 33 weeks gestation of PTL precautions reviewed and when to call RTO in 2 weeks Sheyla Moreno APRN.CNM documented in this encounter [facility] 11-26-2024 Note Indication Evaluation of growth Maternal obesity, BMI >35 Impression - Single, live, intrauterine . - presentation is cephalic. - The biometry is consistent with the assigned gestational dating. - The EFW is 2359 g, at the 75%. AC is at the 95%. - Amniotic fluid volume is normal amount with an MVP of 5.9 cm and KATI of 17.6 cm. - The placenta is anterior, fundal. - No malformations visualized on a limited survey as detailed below. Recommendations - growth scan every 4 weeks - Additional follow up as clinically indicated. Maternal Assessment Height 183 cm Height (ft) 6 ft Physical Exam Initial weight (lb) 284 lb Initial BMI 38.52 kg/m Maternal assessment other: 2 Para 1 REMOTE READ Method Transabdominal ultrasound examination Mariano . Number of fetuses: 1 Dating LMP on: 04/09/2024 GA by LMP 33 w + 0 d BRITATNY by LMP: 01/14/2025 GA by prior assessment 33 w + 0 d BRITTANY by prior assessment: 01/14/2025 Ultrasound examination on: 11/26/2024 GA by U/S based upon: AC, BPD, Femur, HC GA by U/S 33 w + 4 d BRITTANY by U/S: 01/10/2025 Assigned: based on stated BRITTANY, selected on 11/26/2024 Assigned GA 33 w + 0 d Assigned BRITTANY: 01/14/2025 General Evaluation Cardiac activity present. FHR 145 bpm. movements: present. Presentation: cephalic Placenta: Placental site: anterior, fundal Umbilical cord: Cord vessels: 3 vessel cord Amniotic fluid: Amount of AF: normal amount. MVP 5.9 cm. KATI 17.6 cm. Q1 4.2 cm, Q2 4.3 cm, Q3 3.2 cm, Q4 5.9 cm Growth Overview Exam date GA BPD (mm) HC (mm) AC (mm) FL (mm) HL (mm) EFW (g) 09/03/2024 21w 0d 48.6 36% 184.2 43% 158.1 41% 35.5 73% 36 89% 392 45% 10/25/2024 28w 3d 72.6 61% 267.7 55% 245.3 54% 53.5 59% 1272 47% 11/26/2024 33w 0d 82.9 54% 306.1 53% 311.4 95% 62.9 49% 2359 75% Biometry Standard BPD 82.9 mm 33w 2d 54% Hadlock OFD 108.7 mm 32w 4d 51% Nicolaides HC 306.1 mm 33w 1d 53% Jh AC 311.4 mm 35w 1d 95% Hadlock Femur 62.9 mm 32w 3d 49% Jh EFW 2,359 g 33w 6d 75% Hadlock EFW (lb) 5 lb EFW (oz) 3 oz EFW by: Hadlock (HC-AC-FL) Extended Parimutuel Cashier 6.0 mm Extremities / Bony Struc FL / HC 0.21 Other Structures FHR 145 bpm Anatomy Lateral ventricles: normal Cavum septi pellucidi: normal Cerebellum: normal Cisterna magna: normal 4-chamber view: normal RVOT view: normal LVOT view: normal 3-vessel view: normal Heart / Thorax Situs: situs solitus (normal) Diaphragm: normal Stomach: normal Kidneys: normal Bladder: normal Wants to know sex: yes Performed By: Eden Aly RDMS, RVT Read By: Terra Esparza M.D. MATERNAL MEDICINE 11-26-2024 Apollo Hoffman LPN - 11/26/2024 10:50 AM EDT SEQUENTIAL SCREENINGS The [facility] offers sequential screenings for women who are interested in screenings for chromosomal abnormalities and certain defects during a . The sequential screen combines ultrasound and blood tests to determine the risk of chromosomal abnormalities, including Down's Syndrome (Trisomy 21) and Trisomy 18, as well as open neural tube defects including spina bifida. Ultrasound examination is performed between 11 weeks and 13 weeks gestational age. Blood tests are drawn after the ultrasound and again later in the between 15 and 21 weeks gestational age. Please let your physician know if you are interested in this testing. It will require an appointment with our in tube conversion technician. This is not an ultrasound performed by a physician in our office during a routine visit. SIGNS AND SYMPTOMS OF LABOR 1. Contractions every 10 minutes or more often 2. Clear, pink, or brownish fluid (water) leaking from vagina 3. Feeling that baby is pushing down, pressure 4. Low, dull backache 5. Cramps that feel like a period 6. Cramps with or without diarrhea If you notice any of the above symptoms, contact our office at [phone] and ask to speak with a nurse. After hours, you can call doctors registry at [phone] OR call [facility] at [phone] and ask to have the doctor parts identification technician paged. If you consider this an emergency, dial 9-1-1 or go to your nearest emergency department. NEED HELP? Are you dealing with a violent or abusive relationship? Are you a victim of rape or sexual assult? Call [facility] ([place]) 24 hour Crisis Hotline: 518.428.8289 or 155-094-8677. MANUAL Your Guide to a Healthy manual is now on-line. Visit [email or web address] Patel to download your free copy documented in this encounter [facility] 11-08-2024 Note HNO ID: [id number] Author: KELLY BALTAZAR MD Service: ? Author Type: Physician Type: Progress Notes Filed: 11/12/2024 17:57 Note Text: SW- Worsening heartburn and has already adjusted diet and taken tums. No pain, MALLORY, vb, lof. DFM today. Leg cramps at night that resolve. Occasional LLQ cramping that wrapped up her left side of her abdomen with certain activities, but no pain today. PE: Gen- NAD, well appearing Abd- Soft, gravid, NT See flowsheet A/p 30 wk gestation - Acid reflux: Pepcid discussed - cHTN: Cont LDA. BP normal today. Cont home BP monitoring. Growth US's scheduled. Discussed reasons to call - DFM: NST at beginning of appointment. Discussed FKC's. While the patient was waiting for the NST she began feeling an increase in movement and asked to leave prior to NST given this - E coli UTI: Urine CFC today. No symptoms of UTI. Macrobid once daily for remainer of as prescribed by Dr. Gaytan - RTO 2 wks Kelly Baltazar DO [facility] 10-29-2024 Telephone encounter Note Faxed. Staci Ho RN [facility] 10-29-2024 Miscellaneous Notes Faxed. Staci Ho RN Breast pump order received from [address] To SW to sign. Karina Severino RN documented in this encounter [facility] 10-29-2024 Telephone encounter Note Breast pump order received from [address] To SW to sign. Karina Severino RN [facility] 10-26-2024 Telephone encounter Note Mild anemia so she should start an OTC iron supplement every other day. Galilea Abraham MD [facility] Work Phone: 10-26-2024 Miscellaneous Notes Mild anemia so she should start an OTC iron supplement every other day. Galilea Abraham MD documented in this encounter [facility] 10-25-2024 Note HNO ID: [id number] Author: KELLY BALTAZAR MD Service: ? Author Type: Physician Type: Progress Notes Filed: 10/25/2024 14:54 Note Text: SW- No MALLORY, ctx, vb, lof. Good FM PE: Gen- NAD, well appearing See flowsheet A/p 28 wk gestation - Growth US and final report pending - 28 wk labs today - LARC signed and desires Mirena IUD 6-8 wk - Tdap discussed, considering - plan sheet given - UTI: Urine CFC today - cHTN: BP normal at home 120's/70's per patient. Cont LDA. Schedule growth US q 4 wks - RTO 2 wks Kelly Baltazar DO [facility] 10-25-2024 History of Presen t illness Narrative SW- No MALLORY, ctx, vb, lof. Good FM PE: Gen- NAD, well appearing See flowsheet A/p 28 wk gestation - Growth US and final report pending - 28 wk labs today - LARC signed and desires Mirena IUD 6-8 wk - Tdap discussed, considering - plan sheet given - UTI: Urine CFC today - cHTN: BP normal at home 120's/70's per patient. Cont LDA. Schedule growth US q 4 wks - RTO 2 wks Kelyl Baltazar DO documented in this encounter [facility] 10-25-2024 Note Indication Evaluation of growth, Follow-up evaluation to complete anatomic survey, Maternal obesity, BMI >30 Impression The patient is referred for completion of the anatomic survey. - Single, live, intrauterine . - No malformations were visualized on a follow-up anatomic survey. - Anatomic survey was completed today. - The EFW is 1272 g, at the 47%. AC is at the 54%. - The amniotic fluid volume is normal amount. - The placenta is anterior, fundal. - Not all structural malformations can be detected by ultrasound examination. Recommendations Additional follow-up as clinically indicated. Maternal Assessment Height 183 cm Height (ft) 6 ft Physical Exam Initial weight (lb) 284 lb Initial BMI 38.52 kg/m Method Transabdominal ultrasound examination Mariano . Number of fetuses: 1 Dating LMP on: 04/09/2024 GA by LMP 28 w + 3 d BRITTANY by LMP: 01/14/2025 GA by prior assessment 28 w + 3 d BRITTANY by prior assessment: 01/14/2025 Ultrasound examination on: 10/25/2024 GA by U/S based upon: AC, BPD, Femur, HC GA by U/S 28 w + 5 d BRITTANY by U/S: 01/12/2025 Assigned: based on stated BRITTANY, selected on 09/03/2024 Assigned GA 28 w + 3 d Assigned BRITTANY: 01/14/2025 General Evaluation Cardiac activity present. FHR 148 bpm. movements: present. Presentation: cephalic Placenta: Placental site: anterior, fundal Umbilical cord: Cord vessels: 3 vessel cord. Insertion site: normal insertion Amniotic fluid: Amount of AF: normal amount. MVP 6.0 cm. KATI 15.7 cm. Q1 4.2 cm, Q2 2.7 cm, Q3 2.8 cm, Q4 6.0 cm Growth Overview Exam date GA BPD (mm) HC (mm) AC (mm) FL (mm) HL (mm) EFW (g) 09/03/2024 21w 0d 48.6 36% 184.2 43% 158.1 41% 35.5 73% 36 89% 392 45% 10/25/2024 28w 3d 72.6 61% 267.7 55% 245.3 54% 53.5 59% 1272 47% Biometry Standard BPD 72.6 mm 29w 1d 61% Hadlock OFD 95.0 mm 28w 0d 53% Nicolaides HC 267.7 mm 28w 4d 55% Jh AC 245.3 mm 28w 5d 54% Hadlock Femur 53.5 mm 28w 3d 59% Jh EFW 1,272 g 28w 3d 47% Hadlock EFW (lb) 2 lb EFW (oz) 13 oz EFW by: Hadlock (HC-AC-FL) Extended Parimutuel Cashier 6.6 mm Extremities / Bony Struc FL / HC 0.20 Other Structures FHR 148 bpm Anatomy Lateral ventricles: normal Cavum septi pellucidi: normal Cerebellum: normal Cisterna magna: normal Head / Neck Vermis: normal Lips: normal Profile: normal Nose: normal Face Maxilla: normal Mandible: normal 4-chamber view: normal RVOT view: normal LVOT view: normal 3-vessel view: normal [id number] view: normal Heart / Thorax Situs: situs solitus (normal) Aortic arch view: normal Diaphragm: normal Stomach: normal Kidneys: normal Bladder: normal Wants to know sex: yes Performed By: Janene Pinto RDMS Read By: Marbella Mcgee M.D. [facility]ERNAL MEDICINE 09-27-2024 Progress note Formatting of t his note might be different from the original. RR- VB No. LOF No. CTXS No. Movement: present. Other c/o: No. Medication list reviewed. SENSITIVE EXAM: Sensitive exam not performed. Physical Exam See Flow Sheet Abd: soft, nontender, gravid Ext: edema: Trace A/P 24w3d Estimated Date of Delivery: 01/14/25 Assessment & Plan UTI (urinary tract infection) in , antepartum ([facility]) just finished antiobiotics Orders: BACTERIAL CULTURE, URINE Supervision of high risk in second trimester ([facility]) f/u in 4 weeks, 28 week labs next visit Orders: BACTERIAL CULTURE, URINE Chronic hypertension in ([facility]) checks BP at homew Orders: BACTERIAL CULTURE, URINE 24 weeks gestation of ([facility]) Orders: BACTERIAL CULTURE, URINE Adina Krueger M.D. [facility] 09-27-2024 Miscellaneous Notes RR- VB No. LOF No. CTXS No. Movement: present. Other c/o: No. Medication list reviewed. SENSITIVE EXAM: Sensitive exam not performed. Physical Exam See Flow Sheet Abd: soft, nontender, gravid Ext: edema: Trace A/P 24w3d Estimated Date of Delivery: 01/14/25 Assessment & Plan UTI (urinary tract infection) in , antepartum ([facility]) just finished antiobiotics Orders: BACTERIAL CULTURE, URINE Supervision of high risk in second trimester ([facility]) f/u in 4 weeks, 28 week labs next visit Orders: BACTERIAL CULTURE, URINE Chronic hypertension in ([facility]) checks BP at homew Orders: BACTERIAL CULTURE, URINE 24 weeks gestation of ([facility]) Orders: BACTERIAL CULTURE, URINE Adina Krueger M.D. documented in this encounter [facility] 09-27-2024 Instructions Bella Dinero MA - 09/27/2024 3:12 PM EDT Oral Glucose Tolerance Test During Your provider has ordered an oral glucose tolerance test. For more information: My [facility] Oral Glucose Tolerance Test How do I prepare for my one-hour glucose test? You don t need to prepare for your one-hour glucose screening. Most care providers recommend avoiding foods high in sugar for breakfast. For example, pancakes, donuts or juice. If you re testing later in the day, be aware that eating large amounts of sugar for lunch may affect your results. Can you eat before a glucose screening test? Yes, you can eat normally before your glucose screening test. What can I expect on the day of the glucose screening? On the day of your glucose screening, follow instructions given to you by your care provider or the lab (if applicable). Be sure to know exactly where to go for the screening and if you need an appointment. Safe Sleep for For more information: [email or web address] Safe Sleep Healthy babies are safest when sleeping on their backs at nighttime and during naps. Side sleeping is not as safe as back sleeping and is not advised. documented in this encounter [facility] 09-07-2024 Telephone encounter Note Noted- ordered. I also ordered her prophylaxis assuming this abx will work. (One pill daily for remainder of ) [facility] 09-07-2024 Miscellaneous Notes Noted- ordered. I also ordered her prophylaxis assuming this abx will work. (One pill daily for remainder of ) See Pt's [employer] message---Would like to try same antibiotic and retest urine on Friday post antibiotic completion. Antibiotic pending along with UA and repeat urine culture if appropriate. Please advise and will contact Pt. Staci Ho RN Please tell her that her susceptibility came back fine for nitrofurantoin - I am not sure why she is not clearing this. Options we can retry same abx and test her at 7 days and then keep her on daily suppression or try Bactrim (safe in 2nd trimester remote from delivery) I hate to keep changing abx when we see they should work. Is she finishing the whole rounds of abx? documented in this encounter [facility] 09-07-2024 Telephone encounter Note See Pt's [employer] message---Would like to try same antibiotic and retest urine on Friday post antibiotic completion. Antibiotic pending along with UA and repeat urine culture if appropriate. Please advise and will contact Pt. Staci Ho RN [facility] 09-07-2024 Telephone encounter Note Please tell her that her susceptibility came back fine for nitrofurantoin - I am not sure why she is not clearing this. Options we can retry same abx and test her at 7 days and then keep her on daily suppression or try Bactrim (safe in 2nd trimester remote from delivery) I hate to keep changing abx when we see they should work. Is she finishing the whole rounds of abx? T [facility] 09-03-2024 Progress note Formatting of t his note might be different from the original. DM-Pt doing well. Denies vaginal Bleeding, Leaking fluid, or regular Contractions. Pt reports good movement Physical Exam: Gen: female in no apparent distress Abd: soft, Gravid. Non tender to palpation. See flow sheet @ 21 weeks Assessment & Plan Supervision of high risk in second trimester ([facility]) Orders: BACTERIAL CULTURE, URINE UA DIP, URINE (POC) Chronic hypertension in ([facility]) Growth us starting 28 weeks Orders: OBSTETRIC ULTRASOUND WHI; Standing Obesity in ([facility]) NSTs and growth History of pre-eclampsia Continue ASA Orders: BACTERIAL CULTURE, URINE UTI (urinary tract infection) in , antepartum ([facility]) WALKER today- did show nitrates on dip. May consider Prophylactic treatment remainder of - will await culture. Orders: BACTERIAL CULTURE, URINE UA DIP, URINE (POC) 21 weeks gestation of ([facility]) RTO 4 wks Orders: BACTERIAL CULTURE, URINE OBSTETRIC ULTRASOUND WHI; Standing Elli Lopez MD T [facility] 09-03-2024 Miscellaneous Notes DM-Pt doing well. Denies vaginal Bleeding, Leaking fluid, or regular Contractions. Pt reports good movement Physical Exam: Gen: female in no apparent distress Abd: soft, Gravid. Non tender to palpation. See flow sheet @ 21 weeks Assessment & Plan Supervision of high risk in second trimester (HCC) Orders: BACTERIAL CULTURE, URINE UA DIP, URINE (POC) Chronic hypertension in ([facility]) Growth us starting 28 weeks Orders: OBSTETRIC ULTRASOUND WHI; Standing Obesity in ([facility]) NSTs and growth History of pre-eclampsia Continue ASA Orders: BACTERIAL CULTURE, URINE UTI (urinary tract infection) in , antepartum ([facility]) WALKER today- did show nitrates on dip. May consider Prophylactic treatment remainder of - will await culture. Orders: BACTERIAL CULTURE, URINE UA DIP, URINE (POC) 21 weeks gestation of (HCC) RTO 4 wks Orders: BACTERIAL CULTURE, URINE OBSTETRIC ULTRASOUND WHI; Standing Elli Lopez MD documented in this encounter [facility] 09-03-2024 Instructions Bella Dinero MA - 09/03/2024 1:53 PM EDT SEQUENTIAL SCREENINGS The [facility] offers sequential screenings for women who are interested in screenings for chromosomal abnormalities and certain defects during a . The sequential screen combines ultrasound and blood tests to determine the risk of chromosomal abnormalities, including Down's Syndrome (Trisomy 21) and Trisomy 18, as well as open neural tube defects including spina bifida. Ultrasound examination is performed between 11 weeks and 13 weeks gestational age. Blood tests are drawn after the ultrasound and again later in the between 15 and 21 weeks gestational age. Please let your physician know if you are interested in this testing. It will require an appointment with our in tube conversion technician. This is not an ultrasound performed by a physician in our office during a routine visit. SIGNS AND SYMPTOMS OF LABOR 1. Contractions every 10 minutes or more often 2. Clear, pink, or brownish fluid (water) leaking from vagina 3. Feeling that baby is pushing down, pressure 4. Low, dull backache 5. Cramps that feel like a period 6. Cramps with or without diarrhea If you notice any of the above symptoms, contact our office at [phone] and ask to speak with a nurse. After hours, you can call doctors registry at [phone] OR call [facility] at [phone] and ask to have the doctor parts identification technician paged. If you consider this an emergency, dial 3 or go to your nearest emergency department. NEED HELP? Are you dealing with a violent or abusive relationship? Are you a victim of rape or sexual assult? Call [facility] ([place]) 24 hour Crisis Hotline: 518.229.6857 or 154-616-2406. MANUAL Your Guide to a Healthy manual is now on-line. Visit [email or web address] to download your free copy documented in this encounter [facility] 08-04-2024 Telephone encounter Note Patient notified. Karina Severino RN [facility] 08-04-2024 Miscellaneous Notes Patient notified. Karina Severino RN Please notify patient: + UTI Rx for Macrobid sent Push fluids To notify or go to ER with back pain, fever, chills Radha Hammer APRN.SPOOL WINDER documented in this encounter [facility] 08-04-2024 Telephone encounter Note Please notify patient: + UTI Rx for Macrobid sent Push fluids To notify or go to ER with back pain, fever, chills Radha Hammer APRN.SPOOL WINDER [facility] 08-02-2024 Progress note Formatting of t his note might be different from the original. S: Hillary Fraire is a 34 year old female who presents at 01/14/2025, by Last Menstrual Period for a routine visit. Denies headache, visual changes, chest pain, shortness of breath, vaginal bleeding, leakage of fluid, or dysuria. Feeling well, no complaints. O: See flow sheet Gen: No apparent distress Abd: Gravid, nontender ASSESSMENT/PLAN: 1. , supervision, high-risk, unspecified trimester (HCC) - ICD9: V23.9, ICD10: O09.90 (primary diagnosis) 2. BMI 38.0-38.9,adult - ICD9: V85.38, ICD10: Z68.38 3. 16 weeks gestation of ([facility]) - ICD9: V22.2, ICD10: Z3A.16 4. UTI (urinary tract infection) in , antepartum ([facility]) - ICD9: 646.63, 599.0, ICD10: O23.40 - BACTERIAL CULTURE, URINE Polly Hamilton MD [facility] 08-02-2024 Miscellaneous Notes S: Hillary Fraire is a 34 year old female who presents at 01/14/2025, by Last Menstrual Period for a routine visit. Denies headache, visual changes, chest pain, shortness of breath, vaginal bleeding, leakage of fluid, or dysuria. Feeling well, no complaints. O: See flow sheet Gen: No apparent distress Abd: Gravid, nontender ASSESSMENT/PLAN: 1. , supervision, high-risk, unspecified trimester ([facility]) - ICD9: V23.9, ICD10: O09.90 (primary diagnosis) 2. BMI 38.0-38.9,adult - ICD9: V85.38, ICD10: Z68.38 3. 16 weeks gestation of ([facility]) - ICD9: V22.2, ICD10: Z3A.16 4. UTI (urinary tract infection) in , antepartum ([facility]) - ICD9: 646.63, 599.0, ICD10: O23.40 - BACTERIAL CULTURE, URINE Polly Hamilton MD documented in this encounter [facility] 08-02-2024 Instructions Michelle Drake MA - 08/02/2024 3:05 PM EDT SEQUENTIAL SCREENINGS The [facility] offers sequential screenings for women who are interested in screenings for chromosomal abnormalities and certain defects during a . The sequential screen combines ultrasound and blood tests to determine the risk of chromosomal abnormalities, including Down's Syndrome (Trisomy 21) and Trisomy 18, as well as open neural tube defects including spina bifida. Ultrasound examination is performed between 11 weeks and 13 weeks gestational age. Blood tests are drawn after the ultrasound and again later in the between 15 and 21 weeks gestational age. Please let your physician know if you are interested in this testing. It will require an appointment with our in tube conversion technician. This is not an ultrasound performed by a physician in our office during a routine visit. SIGNS AND SYMPTOMS OF LABOR 1. Contractions every 10 minutes or more often 2. Clear, pink, or brownish fluid (water) leaking from vagina 3. Feeling that baby is pushing down, pressure 4. Low, dull backache 5. Cramps that feel like a period 6. Cramps with or without diarrhea If you notice any of the above symptoms, contact our office at [phone] and ask to speak with a nurse. After hours, you can call doctors registry at [phone] OR call [facility] at [phone] and ask to have the doctor parts identification technician paged. If you consider this an emergency, dial [phone] or go to your nearest emergency department. NEED HELP? Are you dealing with a violent or abusive relationship? Are you a victim of rape or sexual assult? Call [facility] ([place]) 24 hour Crisis Hotline: 196.537.2543 or 400-847-6175. MANUAL Your Guide to a Healthy manual is now on-line. Visit [email or web address] to download your free copy documented in this encounter [facility] 07-08-2024 Telephone encounter Note See result note Keflex sent in for +urine cx [facility] 07-08-2024 Miscellaneous Notes See result note Keflex sent in for +urine cx documented in this encounter [facility] 07-05-2024 Progress note Formatting of t his note might be different from the original. SW- pt doing well. No pain, vb, lof. PE: Gen- NAD, well appearing A/p 12 wk gestation - NT today and final report pending - NIPT order already in - Elevated LFT with NOB labs. Liver function panel ordered to recheck - Cont LDA - Discussed option for early anatomy at 16 wks - Patient desires virtual visits given distance. Has BP cuff at home. Discussed obtaining doppler - Urine CFC today - RTO 4 wks Kelly Baltazar DO [facility] 07-05-2024 Miscellaneous Notes SW- pt doing well. No pain, vb, lof. PE: Gen- NAD, well appearing A/p 12 wk gestation - NT today and final report pending - NIPT order already in - Elevated LFT with NOB labs. Liver function panel ordered to recheck - Cont LDA - Discussed option for early anatomy at 16 wks - Patient desires virtual visits given distance. Has BP cuff at home. Discussed obtaining doppler - Urine CFC today - RTO 4 wks Kelly Baltazar DO documented in this encounter [facility] 07-05-2024 Instructions Lizzie Kern MA - 07/05/2024 3:11 PM EDT SEQUENTIAL SCREENINGS The [facility] offers sequential screenings for women who are interested in screenings for chromosomal abnormalities and certain defects during a . The sequential screen combines ultrasound and blood tests to determine the risk of chromosomal abnormalities, including Down's Syndrome (Trisomy 21) and Trisomy 18, as well as open neural tube defects including spina bifida. Ultrasound examination is performed between 11 weeks and 13 weeks gestational age. Blood tests are drawn after the ultrasound and again later in the between 15 and 21 weeks gestational age. Please let your physician know if you are interested in this testing. It will require an appointment with our in tube conversion technician. This is not an ultrasound performed by a physician in our office during a routine visit. SIGNS AND SYMPTOMS OF LABOR 1. Contractions every 10 minutes or more often 2. Clear, pink, or brownish fluid (water) leaking from vagina 3. Feeling that baby is pushing down, pressure 4. Low, dull backache 5. Cramps that feel like a period 6. Cramps with or without diarrhea If you notice any of the above symptoms, contact our office at [phone] and ask to speak with a nurse. After hours, you can call doctors registry at [phone] OR call [facility] at [phone] and ask to have the doctor parts identification technician paged. If you consider this an emergency, dial [phone] or go to your nearest emergency department. NEED HELP? Are you dealing with a violent or abusive relationship? Are you a victim of rape or sexual assult? Call [facility] ([place]) 24 hour Crisis Hotline: 849.629.8863 or 137-806-5456. MANUAL Your Guide to a Healthy manual is now on-line. Visit [email or web address] to download your free copy documented in this encounter [facility] 06-09-2024 Telephone encounter Note Please notify patient: + UTI Push fluids Rx for Macrobid sent To notify if symptoms worsening or not improving Radha Hammer APRN.CNP [facility] 06-09-2024 Miscellaneous Notes Please notify patient: + UTI Push fluids Rx for Macrobid sent To notify if symptoms worsening or not improving Radha Hammer APRN.CNP documented in this encounter [facility] 06-07-2024 Winsome Davis LPN - 06/07/2024 1:59 PM EST Please select the following link to access the [facility] Your Guide to a Healthy . [email or web address] documented in this encounter [facility] 06-07-2024 Note HNO ID: [id number] Author: LEANNE AQUINO APRN.SPOOL WINDER Service: ? Author Type: Nurse Practitioner Type: Progress Notes Filed: 06/07/2024 15:57 Note Text: Patient declined cloud subject matter expert. *Patient has a history of preeclampsia with her previous *Patient is obese *Patient has a history of anxiety diagnosed in April of this year by her primary care physician. She denies any history of depression. She currently is not taking any medication to treat it and feels like she is doing well. *Patient is complaining of nausea. Denies any vomiting in . Dietary considerations discussed . Vitamin B6 recommended. Advised patient to call/come in if she is unable to keep any food or fluids down in a 24-hour period. *Patient declines genetic carrier screening testing. Patient desires aneuploidy screening. Contact information given to patient to check on insurance coverage INITIAL OB ASSESSMENT HPI: Hillary Burns is a 34 year old White Female here to establish Obstetrical Care. Patient's last menstrual period was 04/09/2024 (exact date). from OB Dating Form. was unplanned but accepted Complaints: (!) Heart racing or skipping beats x1 incident, Severe nausea (noticed 1 week ago had racing/palpitations that lasted 15 minutes. nausea-no vomiting) OB History Gravida2 Para1 Term1 Preterm0 AB0 Living1 SAB0 IAB0 Ectopic0 Multiple0 Live Births1 # 1 - Date: 01/10/21, Sex: Male, Weight: 3.175 kg (7 lb), GA: 37w1d, Type: Vaginal, Spontaneous, Apgar1: 8, Apgar5: 9, Living: Living, Comments: PROM, cyotec/pitocin induction, EBL 200mL, 1st degree vaginal laceration, PP Preeclampsia # 2 - Date: None, Sex: None, Weight: None, GA: None, Type: None, Apgar1: None, Apgar5: None, Living: None, Comments: None Previous history: Prior : No History of 4th degree laceration: No History of shoulder dystocia: No History of Hypertensive disorders including pre-eclampsia or gestational hypertension: Yes PP pre-E History of gestational diabetes: No Patient's Risk Screening for delivery: Have you had a prior mariano between 20w and 36w6d? No How many pregnancies have you had before? 1 Did you have a previous baby with a GBS Infection? No Please select all that apply for any prior : N/A MEDICAL/PSYCHOSOCIAL HISTORY: History of hemorrhage or bleeding concerns: No Thyroid Disease: No History of chronic hypertension: No History of pre-existing diabetes: No ABO/RH(D) Date Value Ref Range Status 06/15/2020 A POSITIVE Final No weight on file for this encounter. Last Pap: 06/21/2020 History of abnormal pap: No Prior treatment for cervical dysplasia: none. Last HPV: 06/19/2020 History of STDs: No Partner History of STDs: None Did you have a partner with Herpes? No Tobacco use: No E-Cigarette/Vaping Use: No Caffeine use: No Drug use: No Alcohol use: No Multivitamin with Folic acid: Yes Would refuse blood transfusion if medically necessary: No Social Needs: How often does this describe you? I don't have enough money to pay my bills: Never Within the past 12 months, have you worried that your food would run out before you had money to buy more? Never In the past 12 months, has lack of reliable transportation kept you from going to medical appointments or work, or from getting things needed for daily living? Never In the past 12 months, have you had any concerns about having a place to live, or about the condition or quality of your housing? Never Would you like more information on any of the following (please check all that apply)? Not interested Social History: Do you have any history of depression, anxiety, PTSD, or other mood problems? Yes Do you have a history of abuse or trauma that may impact your experience? No Are you currently employed? Yes Depression/Anxiety Screening: denies symptoms of depression. OB Depression and Anxiety Screening- This Encounter (since 06/06/2024) Over the past 2 weeks have you felt down, depressed, or hopeless? Negative Over the past two weeks, have you felt little interest or pleasure in doing things?? Negative Feeling nervous, anxious or on edge 0-Not at all Not being able to stop or control worrying 0-Not al all Anxiety Pre-Screening Total (If >/= 3 additional questions will be reviewed) 0 Genetic Screening: Partner present: No Patient verbalized knowledge of partner family health history: Yes Do you or your partner have any personal or family history of defects not previously discussed: No Do you have history of a complicated by anomaly, genetic condition, or demise: No Preeclampsia Risk Screening: Screening for prevention of preeclampsia: High risk factors: Moderate risk ractors: Obesity (body mass index greater than 30) History of preeclampsia OB Risk Screening: Comp (more content not included)... [facility] 06-07-2024 History of Presen t illness Narrative Patient declined cloud subject matter expert. *Patient has a history of preeclampsia with her previous *Patient is obese *Patient has a history of anxiety diagnosed in April of this year by her primary care physician. She denies any history of depression. She currently is not taking any medication to treat it and feels like she is doing well. *Patient is complaining of nausea. Denies any vomiting in . Dietary considerations discussed . Vitamin B6 recommended. Advised patient to call/come in if she is unable to keep any food or fluids down in a 24-hour period. *Patient declines genetic carrier screening testing. Patient desires aneuploidy screening. Contact information given to patient to check on insurance coverage INITIAL OB ASSESSMENT HPI: Hillary Burns is a 34 year old White Female here to establish Obstetrical Care. Patient's last menstrual period was 04/09/2024 (exact date). from OB Dating Form. was unplanned but accepted Complaints: (!) Heart racing or skipping beats x1 incident, Severe nausea (noticed 1 week ago had racing/palpitations that lasted 15 minutes. nausea-no vomiting) OB History Gravida2 Para1 Term1 Preterm0 AB0 Living1 SAB0 IAB0 Ectopic0 Multiple0 Live Births1 # 1 - Date: 01/10/21, Sex: Male, Weight: 3.175 kg (7 lb), GA: 37w1d, Type: Vaginal, Spontaneous, Apgar1: 8, Apgar5: 9, Living: Living, Comments: PROM, cyotec/pitocin induction, EBL 200mL, 1st degree vaginal laceration, PP Preeclampsia # 2 - Date: None, Sex: None, Weight: None, GA: None, Type: None, Apgar1: None, Apgar5: None, Living: None, Comments: None Previous history: Prior : No History of 4th degree laceration: No History of shoulder dystocia: No History of Hypertensive disorders including pre-eclampsia or gestational hypertension: Yes PP pre-E History of gestational diabetes: No Patient's Risk Screening for delivery: Have you had a prior mariano between 20w and 36w6d? No How many pregnancies have you had before? 1 Did you have a previous baby with a GBS Infection? No Please select all that apply for any prior : N/A MEDICAL/PSYCHOSOCIAL HISTORY: History of hemorrhage or bleeding concerns: No Thyroid Disease: No History of chronic hypertension: No History of pre-existing diabetes: No ABO/RH(D) Date Value Ref Range Status 06/15/2020 A POSITIVE Final No weight on file for this encounter. Last Pap: 06/21/2020 History of abnormal pap: No Prior treatment for cervical dysplasia: none. Last HPV: 06/19/2020 History of STDs: No Partner History of STDs: None Did you have a partner with Herpes? No Tobacco use: No E-Cigarette/Vaping Use: No Caffeine use: No Drug use: No Alcohol use: No Multivitamin with Folic acid: Yes Would refuse blood transfusion if medically necessary: No Social Needs: How often does this describe you? I don't have enough money to pay my bills: Never Within the past 12 months, have you worried that your food would run out before you had money to buy more? Never In the past 12 months, has lack of reliable transportation kept you from going to medical appointments or work, or from getting things needed for daily living? Never In the past 12 months, have you had any concerns about having a place to live, or about the condition or quality of your housing? Never Would you like more information on any of the following (please check all that apply)? Not interested Social History: Do you have any history of depression, anxiety, PTSD, or other mood problems? Yes Do you have a history of abuse or trauma that may impact your experience? No Are you currently employed? Yes Depression/Anxiety Screening: denies symptoms of depression. OB Depression and Anxiety Screening- This Encounter (since 06/06/2024) Over the past 2 weeks have you felt down, depressed, or hopeless? Negative Over the past two weeks, have you felt little interest or pleasure in doing things? Negative Feeling nervous, anxious or on edge 0-Not at all Not being able to stop or control worrying 0-Not al all Anxiety Pre-Screening Total (If >/= 3 additional questions will be reviewed) 0 Genetic Screening: Partner present: No Patient verbalized knowledge of partner family health history: Yes Do you or your partner have any personal or family history of defects not previously discussed: No Do you have history of a complicated by anomaly, genetic condition, or demise: No Preeclampsia Risk Screening: Screening for prevention of preeclampsia: High risk factors: Moderate risk ractors: Obesity (body mass index greater than 30) History of preeclampsia OB Risk Screening: Completed, no positive findings documented. 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 hydrOXYzine HCl (ATARAX) 25 mg tablet Take 25 mg by mouth three times a day as needed for anxiety. (Patient not taking: Reported on 06/07/2024) No current facility-administered medications for this visit. Allergies As of Date: 06/07/2024 (No Known Allergies) Fully Assessed 05/24/2024 Does patient have penicillin allergy: No REVIEW OF SYSTEMS: GENERAL: Negative for: Fever or Chills HEENT: Negative for: Headache, Impaired Vision, Ringing in Ears, Nosebleeds NECK: Negative for: Swelling, Pain, Stiffness RESPIRATORY: Negative for: Cough, Shortness of breath, Wheezing GASTROINTESTINAL: Negative for: Heartburn, Constipation, Diarrhea, Blood in stool, Vomiting +++Nausea MUSCULOSKELETAL: Negative for: Muscle or joint pain, stiffness, Joint swelling NEUROLOGIC/PSYCHIATRIC: Negative for: Weakness, Paralysis, Numbness, Tingling, Tremor, Anxiety, Depression, Memory loss SKIN: Negative for: Rash, Itching GENITOURINARY: Negative for: vaginal itching, vaginal discharge, hematuria or dysuria SENSITIVE EXAM: The sensitive examination was discussed with the Patient or Patient's Authorized Coremaking Supervisor. As applicable, any other physician, advance practice provider, medical student, or other health professional student that will be observing or involved in the sensitive examination for educational or training purposes was discussed with the Patient or Authorized Coremaking Supervisor. The Patient or Authorized Coremaking Supervisor has agreed to proceed with the sensitive examination. (Sensitive examination includes inspection and/or palpation of the breasts, pelvis, prostate and anorectal regions). PHYSICAL EXAM: LMP 04/09/2024 GENERAL: pleasant in no apparent distress DERMATOLOGY: Normal, without lesions, non-icteric, and non-hirsute NECK: Supple, full range of motion, no adenopathy, and thyroid normal CHEST: Normal inspiratory effort BREAST: soft, non-tender, symmetric, no dominant mass, normal nipple-areolar complex, no lymphadenopathy, and no nipple discharge ABDOMEN: soft, non-tender, and no masses NEURO: alert and oriented x3,exam grossly non-focal PELVIS: External genitalia normal without lesions. Perineal body intact. No vaginal or cervical lesions. Cervix closed. No adnexal masses or tenderness. Clinical Pelvimetry: Pelvimetry clinically assessed as adequate Limited OB ultrasound exam: single intrauterine , positive cardiac activity, and POCUS performed. +cardiac activity, CRL consistent with LMP. Leanne Aquino APRN.SPOOL WINDER SBIRT Hillary Fraire was given the 4P's screening tool. Hillary Burns answered No to all the questions, the result is determined to be negative. ASSESSMENT: 34 year old at 8w3d wks gestational age PLAN: 1) Patient oriented to practice. Patient given new OB orientation folder. Discussed nutrition, folic acid supplementation, dietary guidelines, exercise, smoking, alcohol, caffeine, and drug use. Discussed gestational weight gain guidelines. Discussed routine OB labs including STD/HIV. Discussed how to access Your guide to a health and the Senior Android Developer. Reviewed midwifery and primary special educator services that are available. 2) Screening: Hemoglobin A1C: ordered Baby Aspirin: The patient has been counseled about the potential benefits of low dose aspirin in and our recommendation that this be offered to all patients, regardless of whether they meet the high risk criteria specified above. She Accepts Aneuploidy Screening: Discussed aneuploidy screening, nuchal translucency/first trimester early anatomy ultrasound and NIPT. The risks/benefits and limitations of NIPT/aneuploidy screening were reviewed including the potential for false negative and false positive results. The availability of genetic counseling was reviewed. Information on aneuploidy screening was provided. The patient chooses to proceed with First trimester early anatomy ultrasound (12-13w6d) and NIPT (10 weeks) Myriad Carrier Screening: Discussed myriad carrier screening. We discussed the availability of professional-society guided carrier screening and reviewed the conditions screened and limitations of screening. The availability of genetic counseling was reviewed. Information on carrier screening was provided. The patient Declines 3) Patient offered option of Virtual Visits. Patient is interested 4) Obesity (BMI >30), will order early glucose screen or Hemoglobin A1C. Follow up in 4 weeks or sooner prn. Leanne Aquino APRN.CNP documented in this encounter [facility] 05-24-2024 Instructions Crissy Tom APRN.CN - 05/24/2024 8:10 AM EST As you may already know, morning sickness can often be more appropriately called evening sickness or poiij-kyqmlj-ee-the-day sickness. While there are the paulino few, most women (50-90%) experience some degree of nausea, some have vomiting, and a few develop a severe form of vomiting during called hyperemesis gravidarum. What causes the nausea and vomiting of ? We can't explain why some people feel fine and others are green for months. Even the same woman may feel vastly different in each . There is some relationship between nausea and the level of the hormone hCG. In twin pregnancies, and in other situations where the hCG is greater than expected, nausea and vomiting tend to be worse. In a destined for miscarriage, hCG levels tend to be low, and nausea is often less severe. This being said, a lack of nausea doesn't guarantee that the is destined for miscarriage. The fact that nausea and vomiting are often signs of a healthy can offer a silver lining in the dark cloud of miserable nausea. How long will the nausea last? Fortunately, for most women, nausea and vomiting are a first trimester event, peaking at week 9-10 and waning by week 14-16. When you are feeling bad the weeks can go by slowly but most moms do feel tremendously better by the middle of the . Whether morning sickness is a brief experience or lasts through most of the , there are treatments that can make the weeks or months more tolerable. What can you do about it? Diet: See what works for you. Try eating bland dry foods, and avoid fatty or spicy foods. It is okay to eat a less than perfectly balanced diet in the first trimester. Have your liquids separately from dry foods. Try sports drinks, water, clear juices, Nick-aid, or non-caffeinated tea. Avoid carbonated beverages that fill up your stomach. Try eating lots of little meals. If you tend to feel sick when you first wake up, leave crackers next to the bed for a quick snack before rising. Keeping healthy snacks with you all day to nibble when you feel queasy can sometimes even prevent nausea from starting. vitamins and nausea: Pre- vitamins can sometimes worsen nausea in . While folate is necessary, especially early in the , it comes as a smaller pill that many people find more tolerable than the complete vitamin pill. Ask your practitioner if it is okay to temporarily replace vitamins and iron with just a folate pill if you find a significant worsening in the level of your nausea from the vitamins. Alternative therapies: Acupressure may be used to treat nausea in , and is not known to have any risks for the fetus. Wristbands (marketed for seasickness) that put pressure on an acupressure point at the wrist are often available at drugstores or travel stores. Katherine root is used for nausea in many traditional cultures. Some women take fresh grated katherine or katherine tablets. It is possible that the pill form contains other ingredients or contaminants, so you may want to try fresh katherine first. Medications: Emetrol is the only nausea medication approved for use in . It is available over the counter and is soothing to the stomach. A prescription medication called Bendectin was available in the -1979's and was shown to be safe in , but the company stopped marketing it in the [place] due to the costs of liability coverage. Bendectin contained 10 milligrams of vitamin B6 and 10 milligrams of Doxylamine. Two tablets were given at bedtime and a total of up to 4 tablets could be used in a 24-hour period. Interestingly, Unisom , which contains a higher dose (25 mg.) of the same medication, Doxylamine, is currently marketed as an xuoq-ckp-msziefs sleeping pill. Ask your practitioner if creating a vitamin B6/Doxylamine combination with igid-ecf-aygkerr medications would be safe for you. Prescription medications like Compazine and Phenergan can be used if the benefits outweigh possible risks, but these have not been clearly shown to be safe in . Zofran , an expensive anti-nausea medication often used to treat nausea from chemotherapy, can also be used. Can I throw up so much it harms the baby? The act of vomiting cannot hurt your fetus, which is protected inside the uterus. If you get dehydrated or develop a metabolic imbalance, this can be unhealthy. As long as you can keep down liquids, you and your baby will generally do all right. Eat when you feel able. If you are unable to keep anything down, or if you notice potential signs of dehydration such as lightheadedness, or concentrated and/or infrequent urination, call your practitioner. Some women need brief hospital admission for intravenous fluids and anti-nausea medications if their condition becomes severe. This severe form of nausea and vomiting is called Hyperemesis Gravidarum. As with many symptoms of , remind yourself that this, too, shall pass, and you'll have a wonderful baby to show for it! TREATMENT OPTIONS, SHORT VERSION: Frequent small meals Hydrate throughout day [employer] wrist pressure point applicators Katherine root (powdered, in capsules) 250mg four times a day Vitamin B6 25 mg tablet three times a day Also may be taken with half a tablet of Unisom three times a day (Doxylamine 12.5 mg) If severe (weight loss, dehydration), call us and come in for IV hydration and possible medication in the form of injections. Prescription medications such as Phenergan, Compazine, Reglan documented in this encounter [facility] 05-24-2024 Note HNO ID: [id number] Author: CRISSY TOM APRN.CNM Service: ? Author Type: Switchman Type: Progress Notes Filed: 05/24/2024 10:23 Note Text: Hillary Fraire is a 34 year old female who presents for problem visit x2 days spotting and missed menses. HPI: LMP 04/09/24 which puts gestational age at 6w 5days.. She is here today with because she thought it was her NOB appointment. Patient was initially concerned due to spotting for 2 days earlier this month. She denies any current spotting, bleeding or pain. was unplanned but accepted. She has a history of 3 years ago with PP preeclampsia. OB History Gravida1 Para1 Term1 Preterm0 AB0 Living1 SAB0 IAB0 Ectopic0 Multiple0 Live Births1 Wool Dyer History LMP: 03/31/2023 (Exact Date), Having periods Age at Menarche: Age at First : Age at Menopause: Wool Dyer History Comments: Sexual Activity: Yes; Male Contraception: Pill PAST MEDICAL HISTORY Diagnosis Date #[id number] Anemia during in third trimester 11/15/2020 fracture age 5 right arm-playground PAST SURGICAL HISTORY Procedure Laterality Date PAST SURGICAL HISTORY OF wisdom teeth FAMILY HISTORY Problem Relation Age of Onset Hypertension Father No Known Problems Sister No Known Problems Brother Depression Paternal Grandmother Cancer Paternal Grandfather Social History Tobacco Use Smoking status: Former Current packs/day: 0.00 Types: Cigarettes Start date: 06/08/2009 Quit date: 06/08/2017 Years since quittin.9 Smokeless tobacco: Never Vaping Use Vaping status: Former Quit date: 04/07/2016 Substance Use Topics Alcohol use: Not Currently Comment: social occasional drinker Drug use: Never Current Outpatient Medications Medication Sig norgestimate 0.25 mg-ethinyl estradiol 35 mcg (SPRINTEC) 0.25-35 mg-mcg per tablet Take 1 tablet by mouth once daily. No current facility-administered medications for this visit. Allergies As of Date: 05/24/2024 (No Known Allergies) Fully Assessed 04/09/2023 REVIEW OF SYSTEMS Abdomen: No bloating, early satiety, indigestion, or increased flatulence. No abdominal pain, nausea, vomiting, diarrhea, or constipation. Bladder: No dysuria, gross hematuria, urinary frequency, urinary urgency, or incontinence. Breast: No breast lumps, nipple d/c, overlying skin changes, redness or skin retraction. Expanded ROS: N/A Allergies and current medication updated:Yes SENSITIVE EXAM: The sensitive examination was discussed with the Patient or Patient's Authorized Coremaking Supervisor. As applicable, any other physician, advance practice provider, medical student, or other health professional student that will be observing or involved in the sensitive examination for educational or training purposes was discussed with the Patient or Authorized Coremaking Supervisor. The Patient or Authorized Coremaking Supervisor has agreed to proceed with the sensitive examination. (Sensitive examination includes inspection and/or palpation of the breasts, pelvis, prostate and anorectal regions). EXAM: BP 124/68 Wt 284 lb 12.8 oz (129.2kg) LMP 04/09/2024 GENERAL: pleasant, female in no apparent distress HEENT: Normocephalic and atraumatic NECK: Supple and full range of motion DERMATOLOGY: Normal and without lesions NEURO: alert and oriented x3,exam grossly non-focal EXTREMITIES: normal ASSESSMENT AND PLAN: Assessment AND Plan Missed menses Orders: UA DIP,URINE HCG (POC) POSITIVE 6 weeks gestation of Spotting in early Obesity affecting in first trimester, unspecified obesity type -No further spotting, bleeding or pain - Taking vitamins daily - Start vitamin b6 / Unisom for nausea - Notify office if unable to keep food or liquid down for 24 hours - RTO 2 weeks for NOB [facility] History of Presen t illness Narrative Hillary Fraire is a 34 year old female who presents for problem visit x2 days spotting and missed menses. HPI: LMP 04/09/24 which puts gestational age at 6w 5days.. She is here today with because she thought it was her NOB appointment. Patient was initially concerned due to spotting for 2 days earlier this month. She denies any current spotting, bleeding or pain. was unplanned but accepted. She has a history of 3 years ago with PP preeclampsia. OB History Gravida1 Para1 Term1 Preterm0 AB0 Living1 SAB0 IAB0 Ectopic0 Multiple0 Live Births1 Wool Dyer History LMP: 03/31/2023 (Exact Date), Having periods Age at Menarche: Age at First : Age at Menopause: Wool Dyer History Comments: Sexual Activity: Yes; Male Contraception: Pill PAST MEDICAL HISTORY Diagnosis Date #[id number] Anemia during in third trimester 11/15/2020 fracture age 5 right arm-playground PAST SURGICAL HISTORY Procedure Laterality Date PAST SURGICAL HISTORY OF wisdom teeth FAMILY HISTORY Problem Relation Age of Onset Hypertension Father No Known Problems Sister No Known Problems Brother Depression Paternal Grandmother Cancer Paternal Grandfather Social History Tobacco Use Smoking status: Former Current packs/day: 0.00 Types: Cigarettes Start date: 06/08/2009 Quit date: 06/08/2017 Years since quittin.9 Smokeless tobacco: Never Vaping Use Vaping status: Former Quit date: 04/07/2016 Substance Use Topics Alcohol use: Not Currently Comment: social occasional drinker Drug use: Never Current Outpatient Medications Medication Sig norgestimate 0.25 mg-ethinyl estradiol 35 mcg (SPRINTEC) 0.25-35 mg-mcg per tablet Take 1 tablet by mouth once daily. No current facility-administered medications for this visit. Allergies As of Date: 05/24/2024 (No Known Allergies) Fully Assessed 04/09/2023 REVIEW OF SYSTEMS Abdomen: No bloating, early satiety, indigestion, or increased flatulence. No abdominal pain, nausea, vomiting, diarrhea, or constipation. Bladder: No dysuria, gross hematuria, urinary frequency, urinary urgency, or incontinence. Breast: No breast lumps, nipple d/c, overlying skin changes, redness or skin retraction. Expanded ROS: N/A Allergies and current medication updated:Yes SENSITIVE EXAM: The sensitive examination was discussed with the Patient or Patient's Authorized Coremaking Supervisor. As applicable, any other physician, advance practice provider, medical student, or other health professional student that will be observing or involved in the sensitive examination for educational or training purposes was discussed with the Patient or Authorized Coremaking Supervisor. The Patient or Authorized Coremaking Supervisor has agreed to proceed with the sensitive examination. (Sensitive examination includes inspection and/or palpation of the breasts, pelvis, prostate and anorectal regions). EXAM: BP 124/68 Wt 284 lb 12.8 oz (129.2kg) LMP 04/09/2024 GENERAL: pleasant, female in no apparent distress HEENT: Normocephalic and atraumatic NECK: Supple and full range of motion DERMATOLOGY: Normal and without lesions NEURO: alert and oriented x3,exam grossly non-focal EXTREMITIES: normal ASSESSMENT AND PLAN: Assessment & Plan Missed menses Orders: UA DIP,URINE HCG (POC) POSITIVE 6 weeks gestation of Spotting in early Obesity affecting in first trimester, unspecified obesity type -No further spotting, bleeding or pain - Taking vitamins daily - Start vitamin b6 / Unisom for nausea - Notify office if unable to keep food or liquid down for 24 hours - RTO 2 weeks for NOB Crissy Tom APRN.CNM documented in this encounter [facility] 05-12-2024 Telephone encounter Note LMP 1/3 Approximately [address] [facility] 05-12-2024 Miscellaneous Notes LMP 1/3 Approximately 4w5d documented in this encounter [facility] 03-05-2023 Miscellaneous Notes I am happy to see her for an appointment and can be virtual as well to discuss and come up with a plan for me either to order labs or referral. Sheyla Moreno APRN.CNM Patient will need an appointment to discuss concerns. Unfortunately, with hormones testing, we don't do this routinely and management. I can refer her to places that do this though if she would like. Thank you, Sheyla Moreno APRN.CNM documented in this encounter [facility] 01-20-2023 Miscellaneous Notes Patient aware she needs to schedule annual exam. Requested Prescriptions Pending Prescriptions Disp Refills Norethindrone, Contraceptive, (JENCYCLA) 0.35 mg tablet 90 tablet 0 Sig: Take 1 tablet by mouth once daily. ABRAM SIM RN documented in this encounter [facility] 03-01-2022 Miscellaneous Notes Pt notified. Pavithra James LPN Please refer to medication list safety in for patient. Sheyla Moreno APRN.CNM Please see pt's mychart message and further advise. Pavithra James LPN documented in this encounter [facility] 02-14-2022 Miscellaneous Notes AMXhart message sent to patient in results. Sheyla Moreno APRN.CNM documented in this encounter [facility] 02-11-2022 History of Presen t illness Narrative Hillary Burns is a 31 year old who presents for an annual gynecologic exam with complaints, fatigure . Increased fatigue in last couple of weeks for primary care, weaned off blood pressure medications about 5 months PP. Menses: cycles every 30 days and 4-5 days of flow. Contraception: combined hormonal contraceptives. Denies warning signs ACHES HPV vaccine: No Last Pap: 06/21/2020 normal HPV: 06/19/2020 positive History of abnormal pap: No Last mammogram: never Sexually active: Yes Time with current partner: 10 years, together 12 year Pain with intercourse: No Postcoital bleeding: No Exercise: none at this time Diet: No restrictions Seatbelt use: Yes OB History T1 L1 SAB0 IAB0 Ectopic0 Multiple0 Live Births1 Wool Dyer History LMP: 02/06/2022 (Exact Date), Unknown Age at Menarche: Age at First : Age at Menopause: Wool Dyer History Comments: Sexual Activity: Yes; Male Contraception: Pill PAST MEDICAL HISTORY Diagnosis Date #[id number] Anemia during in third trimester 11/15/2020 fracture age 5 right arm-playground PAST SURGICAL HISTORY Procedure Laterality Date PAST SURGICAL HISTORY OF wisdom teeth FAMILY HISTORY Problem Relation Age of Onset Hypertension Father No Known Problems Sister No Known Problems Brother Depression Paternal Grandmother Cancer Paternal Grandfather SOCIAL HISTORY Social History Tobacco Use Smoking status: Former Years: 8.00 Types: Cigarettes Quit date: 06/08/2017 Years since quittin.6 Smokeless tobacco: Never Vaping Use Vaping Use: Former Quit date: 04/07/2016 Substance Use Topics Alcohol use: Not Currently Comment: social occasional drinker Drug use: Never REVIEW OF SYSTEMS Abdomen: No abdominal pain, nausea, vomiting, diarrhea, or constipation. No bloating, early satiety, indigestion, or increased flatulence. Bladder: No dysuria, gross hematuria, urinary frequency, urinary urgency, or incontinence. Breast: No breast lumps, nipple d/c, overlying skin changes, redness or skin retraction. Allergies and current medication updated:Yes EXAM: BP 118/70 Ht 6' 0 (1.83m) Wt 262 lb 3.2 oz (118.9kg) LMP 02/06/2022 BMI 35.55 kg/(m^2). GENERAL: pleasant, female in no apparent distress HEENT: Normocephalic, atraumatic, mucus membranes moist, and no lesions NECK: Supple, full range of motion, no adenopathy, and thyroid normal DERMATOLOGY: Normal, without lesions, non-icteric, and non-hirsute BREAST: soft, non-tender, symmetric, no dominant mass, normal nipple-areolar complex, no lymphadenopathy, and no nipple discharge CHEST: Normal inspiratory effort ABDOMEN: soft, non-tender, and no masses PELVIC: external genitalia normal, normal Bartholin's glands, urethra, Pacolet's glands, no vulvar lesions, no cervical lesions, good vaginal support, physiologic discharge present, normal appearing perineal body and perianal region BIMANUAL: uterus normal size, shape and consistency, no adnexal masses, and non-tender RECTOVAGINAL: deferred. NEURO: alert and oriented x3,exam grossly non-focal EXTREMITIES: normal ASSESSMENT/PLAN: 1. Encounter for gynecological examination (general) (routine) without abnormal findings - ICD9: V72.31, ICD10: Z01.419 (primary diagnosis) - Completed pelvic and breast exam - Encouraged monthly BSE - Follow up for annual exam in one year. 2. Malaise and fatigue - ICD9: 780.79, ICD10: R53.81, R53.83 - CBC + DIFF - TSH BLD 3. Encounter for surveillance of contraceptive pills - ICD9: V25.41, ICD10: Z30.41 - discussed with patient on how to take OCP's. - counseled on benefits, risks and possible severe side effects of OCP's. - NORETHINDRONE (CONTRACEPTIVE) 0.35 MG TABLET 1) Health maintenance: Pap done with HPV. Nutrition, exercise and routine health maintenance exams reviewed. Calcium/Vitamin D supplementation information provided. Lipids/glucose: followed by PCP Vitamin D: followed by PCP 2) Contraception: Progestin - only contraceptives. Contraceptive options reviewed and information provided.Discussed switching to combined OCP or continuing with progestin only. Discussed possible decreased efficacy with POP. Voiced understanding and would like to continue. 3) STD screening: Declined STD check. 4) Follow up one year or sooner as needed Sheyla Moreno APRN.CNM documented in this encounter [facility] 01-28-2022 Miscellaneous Notes Addended by: KELLY BALTAZAR on: 01/28/2022 03:13 PM Modules accepted: Orders Refill sent in Annual scheduled with FLAKO 02/11/22. Sent to oncall provider because she needs refill today. Will also forward to FLAKO regarding patient's question if she needs to have any iron levels checked prior to visit. Requested Prescriptions Pending Prescriptions Disp Refills Norethindrone, Contraceptive, (JENCYCLA) 0.35 mg tablet 28 tablet 0 Sig: Take 1 tablet by mouth once daily. Karina Severino RN Patient has been identified by name and date of : Yes Last office visit in this department: Visit date not found Patient ran out on Friday, 01/26. Patient also asking if she needs to have her iron checked? RX INSTRUCTIONS: Patient aware RX will be sent to pharmacy. No need to notify patient. Patient phones requesting refills as follows: Requested Prescriptions Pending Prescriptions Disp Refills Norethindrone, Contraceptive, (JENCYCLA) 0.35 mg tablet 28 tablet 2 Sig: Take 1 tablet by mouth once daily. Please review and advise. Zena Villanueva Pss documented in this encounter [facility] 01-15-2022 Miscellaneous Notes Refill request received from pharmacy for patients OCP. Patient last seen in office on 02/20/21 for exam. PSS: Please contact patient to schedule annual exam. Eden Lovett RN documented in this encounter [facility] 01-13-2021 Note [facility] Medical Records Department [address] [place] [address] Discharge Summary 01/13/21 0658 MR#: [id number] Acct: [id number] Name: HILLARY FRAIRE Rep #: [id number] : 1990 30 From: Sheyla Moreno CNM PCP: Dr. Chiki Gonzales MD Status:ADM IN Location: [id number] Providers Date of Admission: 01/09/21 Primary Care Physician: Dr. Chiki Gonzales MD Reason For Visit: LABOR VAG DEL Diagnosis Discharge Diagnosis (1) Laceration, obstetrical, first degree: Status: Acute Code(s): O70.0 - First degree perineal laceration during delivery (2) Vaginal delivery: Status: Acute Code(s): O80 - Encounter for full-term uncomplicated delivery (3) Hypertension, condition or complication: Status: Acute Code(s): O16.5 - Unspecified maternal hypertension, complicating the puerperium (4) Acute blood loss anemia: Status: Acute Code(s): D62 - Acute posthemorrhagic anemia Medications at Discharge Home Medications aiobpqxk-qfe-Up-FA tab PO DAILY 01/08/21 acetaminophen 1,000 mg PO Q6H PRN PRN #0 tab 01/13/21 benzocaine-menthol [Dermoplast (with menthol)] 1 spray TOPICAL TID PRN PRN #0 g 01/13/21 ferrous sulfate [iron] 325 mg PO DAILY #30 tab 01/13/21 ibuprofen 600 mg PO Q6H PRN PRN #30 tab 01/13/21 labetalol 200 mg PO TID #90 tab 01/13/21 Weight / BMI Weight Weight: 286 lb Body Mass Index (BMI) 38.7 ABG / Lab / Microbiology Data Result Diagrams: 01/12/21 08:55 01/12/21 08:55 Laboratory: Laboratory Results - last 24 hr 01/12/21 08:55: WBC 13.4 H, RBC 3.23 L, Hgb 9.8 L, Hct 30.6 L, MCV 94.7, MCH 30.3, MCHC 32.0, RDW Std Deviation 45.5 H, RDW Coeff of Anabela 13.2, Plt Count 177, MPV 11.6 01/12/21 08:55: Uric Acid 6.1 H 01/12/21 08:55: Sodium 141, Potassium 3.7, Chloride 108 H, Carbon Dioxide 26.0, Anion Gap 7, BUN 12, Creatinine 0.83, Estim Creat Clear Calc 114.37, Est GFR (MDRD) Af Amer 104, Est GFR (MDRD) Non-Af 86, BUN/Creatinine Ratio 14.5, Glucose 72 L, Calcium 8.0 L, Total Bilirubin 0.60, AST 20, ALT 20, Alkaline Phosphatase 96, Total Protein 6.3 L, Albumin 2.2 L, Globulin 4.1, Albumin/Globulin Ratio 0.5 L Microbiology: Microbiology 01/09/21 00:50 Nasal Secretion SARS-CoV-2 Antigen (Rapid) - Final Meaningful Use Info Meaningful Use Diagnoses (Choose all that apply): None applicable Discharge Plan Admission Admit Date/Time: 01/09/21 00:15 Primary Reason for Your Visit: Vaginal Delivery Attending Provider: Elli Lopez Primary Care Provider: Chiki Gonzales Instructions Patient Instructions: Anemia, After a Vaginal , Discharge Orders/Prescriptions Prescriptions: New acetaminophen 500 mg Tablet 1,000 mg PO Q6H PRN PRN (Reason: Pain 1-10 Or Fever) Qty: 0 RF: 0 Dermoplast (with menthol) 20-0.5 % Aerosol 1 spray topical TID PRN PRN (Reason: perineal discomfort) Qty: 0 RF: 0 labetalol 200 mg Tablet 200 mg PO TID Qty: 90 RF: 0 ibuprofen 600 mg Tablet 600 mg PO Q6H PRN PRN (Reason: Pain Score 1-3) Qty: 30 RF: 0 Continued hktgllbv-idc-Mc-FA 1 mg Tablet PO DAILY RF: 0 Changed ferrous sulfate [iron] 325 mg (65 mg iron) Tablet 325 mg PO DAILY Qty: 30 RF: 0 Discontinued aspirin [Baby Aspirin] 81 mg Tablet,Chewable 81 mg PO DAILY RF: 0 Referrals / Follow Up: Chiki Gonzales MD [Primary Care Provider] - Disposition Disposition (needs filled in before D/C Order can be placed): Home, Self Care 01/13/21 0717 Cosigner Signature (if applicable): CC: CARLOS Moreno; Dr. Chiki Gonzales MD Signed [facility] 11-15-2020 History of Past i llness Narrative Problem Noted Date Resolved Date Anemia during in third trimester 11/1502/20/2021 Overview: 12/13/20-Repeat CBC today. Sheyla Moreno APRN.CARLOS 11/15/20: ferrous sulfate 325mg BID. Repeat in 3-4 weeks. 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 Quantitative hCGs were done. Patient denies any bleeding or pain since then. TKRN Obesity in 06/08/2020 02/20/2021 Overview: 06/08/2020atient is obese. We will plan on GCT at new OB.TKRN Nausea and vomiting during 06/08/2020 09/13/2020 Overview: 06/08/2020.Patient is complaining of nausea and occasional vomiting in . Dietary considerations discussed . Vitamin B6 recommended. Advised patient to call/come in if she is unable to keep any food or fluids down in a 24-hour period.TKRN Patient request for diagnostic testing 07/19/2020 Overview: 06/08/2020atient desires nuchal ultrasound. Considering genetic carrier screening testing.Abby Chatman RN documented as of this encounter (statuses as of 01/15/2022) [facility]08-11-2021 History of Past illness Narrative* Problem Noted Date Resolved Date Anemia during in third trimester 11/1502/20/2021 Overview: 12/13/20-Repeat CBC today. Sheyla Moreno APRN.CNM 11/15/20: ferrous sulfate 325mg BID. Repeat in 3-4 weeks. 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 Quantitative hCGs were done. Patient denies any bleeding or pain since then. TKRN Obesity in 06/08/2020 02/20/2021 Overview: 06/08/2020atient is obese. We will plan on GCT at new OB.TKRN Nausea and vomiting during 06/08/2020 09/13/2020 Overview: 06/08/2020.Patient is complaining of nausea and occasional vomiting in . Dietary considerations discussed . Vitamin B6 recommended. Advised patient to call/come in if she is unable to keep any food or fluids down in a 24-hour period.TKRN Patient request for diagnostic testing 07/19/2020 Overview: 06/08/2020atient desires nuchal ultrasound. Considering genetic carrier screening testing.Abby Chatman RN documented as of this encounter (statuses as of 01/28/2022) [facility]08-11-2021 History of Past illness Narrative* Problem Noted Date Resolved Date Anemia during in third trimester 11/1502/20/2021 Overview: 12/13/20-Repeat CBC today. Sheyla Moreno APRN.CNM 11/15/20: ferrous sulfate 325mg BID. Repeat in 3-4 weeks. 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 Quantitative hCGs were done. Patient denies any bleeding or pain since then. TKRN Obesity in 06/08/2020 02/20/2021 Overview: 06/08/2020atient is obese. We will plan on GCT at new OB.TKRN Nausea and vomiting during 06/08/2020 09/13/2020 Overview: 06/08/2020.Patient is complaining of nausea and occasional vomiting in . Dietary considerations discussed . Vitamin B6 recommended. Advised patient to call/come in if she is unable to keep any food or fluids down in a 24-hour period.TKRN Patient request for diagnostic testing 07/19/2020 Overview: 06/08/2020atient desires nuchal ultrasound. Considering genetic carrier screening testing.Abby Chatman RN documented as of this encounter (statuses as of 01/28/2022) [facility]08-11-2021 History of Past illness Narrative* Problem Noted Date Resolved Date Anemia during in third trimester 11/1502/20/2021 Overview: 12/13/20-Repeat CBC today. Sheyla Moreno APRN.CNM 11/15/20: ferrous sulfate 325mg BID. Repeat in 3-4 weeks. 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 Quantitative hCGs were done. Patient denies any bleeding or pain since then. TKRN Obesity in 06/08/2020 02/20/2021 Overview: 06/08/2020atient is obese. We will plan on GCT at new OB.TKRN Nausea and vomiting during 06/08/2020 09/13/2020 Overview: 06/08/2020.Patient is complaining of nausea and occasional vomiting in . Dietary considerations discussed . Vitamin B6 recommended. Advised patient to call/come in if she is unable to keep any food or fluids down in a 24-hour period.TKRN Patient request for diagnostic testing 07/19/2020 Overview: 06/08/2020atient desires nuchal ultrasound. Considering genetic carrier screening testing.Abby Chatman RN documented as of this encounter (statuses as of 02/11/2022) [facility]08-11-2021 History of Past illness Narrative* Problem Noted Date Resolved Date Anemia during in third trimester 11/1502/20/2021 Overview: 12/13/20-Repeat CBC today. Sheyla Moreno APRN.CNM 11/15/20: ferrous sulfate 325mg BID. Repeat in 3-4 weeks. 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 Quantitative hCGs were done. Patient denies any bleeding or pain since then. TKRN Obesity in 06/08/2020 02/20/2021 Overview: 06/08/2020atient is obese. We will plan on GCT at new OB.TKRN Nausea and vomiting during 06/08/2020 09/13/2020 Overview: 06/08/2020.Patient is complaining of nausea and occasional vomiting in . Dietary considerations discussed . Vitamin B6 recommended. Advised patient to call/come in if she is unable to keep any food or fluids down in a 24-hour period.TKRN Patient request for diagnostic testing 07/19/2020 Overview: 06/08/2020atient desires nuchal ultrasound. Considering genetic carrier screening testing.Abby Chatman RN documented as of this encounter (statuses as of 02/11/2022) [facility]08-11-2021 History of Past illness Narrative* Problem Noted Date Resolved Date Anemia during in third trimester 11/1502/20/2021 Overview: 12/13/20-Repeat CBC today. Sheyla Moreno APRN.CNM 11/15/20: ferrous sulfate 325mg BID. Repeat in 3-4 weeks. 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 Quantitative hCGs were done. Patient denies any bleeding or pain since then. TKRN Obesity in 06/08/2020 02/20/2021 Overview: 06/08/2020atient is obese. We will plan on GCT at new OB.TKRN Nausea and vomiting during 06/08/2020 09/13/2020 Overview: 06/08/2020.Patient is complaining of nausea and occasional vomiting in . Dietary considerations discussed . Vitamin B6 recommended. Advised patient to call/come in if she is unable to keep any food or fluids down in a 24-hour period.TKRN Patient request for diagnostic testing 1 07/19/2020 Overview: 06/08/2020atient desires nuchal ultrasound. Considering genetic carrier screening testing.Abby Chatman RN documented as of this encounter (statuses as of 02/14/2022) [facility]08-11-2021 History of Past illness Narrative* Problem Noted Date Resolved Date Anemia during in third trimester 11/1502/20/2021 Overview: 12/13/20-Repeat CBC today. Sheyla Moreno APRN.CNM 11/15/20: ferrous sulfate 325mg BID. Repeat in 3-4 weeks. 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 Quantitative hCGs were done. Patient denies any bleeding or pain since then. TKRN Obesity in 06/08/2020 02/20/2021 Overview: 06/08/2020atient is obese. We will plan on GCT at new OB.TKRN Nausea and vomiting during 06/08/2020 09/13/2020 Overview: 06/08/2020.Patient is complaining of nausea and occasional vomiting in . Dietary considerations discussed . Vitamin B6 recommended. Advised patient to call/come in if she is unable to keep any food or fluids down in a 24-hour period.TKRN Patient request for diagnostic testing 1 07/19/2020 Overview: 06/08/2020atient desires nuchal ultrasound. Considering genetic carrier screening testing.Abby Chatman RN documented as of this encounter (statuses as of 03/01/2022) [facility]08-11-2021 History of Past illness Narrative* Problem Noted Date Diagnosed Date Resolved Date Anemia during in third trimester 11/15/2020 02/20/2021 Overview: 12/13/20-Repeat CBC today. Sheyla Moreno APRN.CNM 11/15/20: ferrous sulfate 325mg BID. Repeat in 3-4 weeks. 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 Quantitative hCGs were done. Patient denies any bleeding or pain since then. TKRN Obesity in 06/08/2020 021 Overview: 06/08/2020atient is obese. We will plan on GCT at new OB.TKRN Nausea and vomiting during 06/08/2020 09/13/2020 Overview: 06/08/2020.Patient is complaining of nausea and occasional vomiting in . Dietary considerations discussed . Vitamin B6 recommended. Advised patient to call/come in if she is unable to keep any food or fluids down in a 24-hour period.TKRN Patient request for diagnostic testing 06/08/2020 07/19/2020 Overview: 06/08/2020atient desires nuchal ultrasound. Considering genetic carrier screening testing.Abby Chatman RN documented as of this encounter (statuses as of 01/20/2023) [facility]08-11-2021 History of Past illness Narrative* Problem Noted Date Diagnosed Date Resolved Date Anemia during in third trimester 11/15/2020 02/20/2021 Overview: 12/13/20-Repeat CBC today. Sheyla Moreno APRN.CNM 11/15/20: ferrous sulfate 325mg BID. Repeat in 3-4 weeks. 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 Quantitative hCGs were done. Patient denies any bleeding or pain since then. TKRN Obesity in 06/08/2020 021 Overview: 06/08/2020atient is obese. We will plan on GCT at new OB.TKRN Nausea and vomiting during 06/08/2020 09/13/2020 Overview: 06/08/2020.Patient is complaining of nausea and occasional vomiting in . Dietary considerations discussed . Vitamin B6 recommended. Advised patient to call/come in if she is unable to keep any food or fluids down in a 24-hour period.TKRN Patient request for diagnostic testing 06/08/2020 07/19/2020 Overview: 06/08/2020atient desires nuchal ultrasound. Considering genetic carrier screening testing.Abby Chatman RN documented as of this encounter (statuses as of 03/05/2023) [facility] Diagnosis Encounter for surveillance of contraceptive pills- Primary Surveillance of previously prescribed contraceptive pill [facility] Diagnosis Encounter for gynecological examination (general) (routine) without abnormal findings- Primary Malaise and fatigue Other malaise and fatigue Encounter for surveillance of contraceptive pills Surveillance of previously prescribed contraceptive pill [facility] Diagnosis Encounter for surveillance of contraceptive pills Surveillance of previously prescribed contraceptive pill documented in this encounter [facility] note* Diagnosis Missed menses- Primary Absence of menstruation 6 weeks gestation of state, incidental Spotting in early Spotting complicating , antepartum condition or complication Obesity affecting in first trimester, unspecified obesity type Nausea Nausea alone * Assessment & Plan Note - Crissy Tom APRN.CNM - 05/24/2024 8:58 AM EST Associated Problem(s): Spotting in early * Assessment & Plan Note - Crissy Tom APRN.CNM - 05/24/2024 8:58 AM EST Associated Problem(s): Obesity affecting in first trimester documented in this encounter [facility] note* Diagnosis Missed menses- Primary Absence of menstruation 6 weeks gestation of state, incidental Spotting in early Spotting complicating , antepartum condition or complication Obesity affecting in first trimester, unspecified obesity type Nausea Nausea alone BMI 38.0-38.9,adult- Primary Body Mass Index 38.0-38.9, adult with uncertain dates, antepartum state, incidental Screening for cervical cancer Screening for malignant neoplasm of the cervix Screen for STD (sexually transmitted disease) Screening examination for venereal disease 8 weeks gestation of state, incidental History of anemia Personal history of diseases of blood and blood-forming organs Generalized anxiety disorder , supervision, high-risk, unspecified trimester documented in this encounter [facility] note* Diagnosis Missed menses- Primary Absence of menstruation 6 weeks gestation of state, incidental Spotting in early Spotting complicating , antepartum condition or complication Obesity affecting in first trimester, unspecified obesity type Nausea Nausea alone UTI (urinary tract infection) in , antepartum- Primary Infections of genitourinary tract antepartum documented in this encounter [facility] note* Diagnosis Missed menses- Primary Absence of menstruation 6 weeks gestation of ([facility]) state, incidental Spotting in early ([facility]) Spotting complicating , antepartum condition or complication Obesity affecting in first trimester, unspecified obesity type ([facility]) Nausea Nausea alone , supervision, high-risk, unspecified trimester ([facility])- Primary 12 weeks gestation of ([facility]) state, incidental UTI (urinary tract infection) in , antepartum ([facility]) Infections of genitourinary tract antepartum Elevated LFTs Other abnormal blood chemistry documented in this encounter [facility] note* Diagnosis Missed menses- Primary Absence of menstruation 6 weeks gestation of ([facility]) state, incidental Spotting in early ([facility]) Spotting complicating , antepartum condition or complication Obesity affecting in first trimester, unspecified obesity type ([facility]) Nausea Nausea alone Bacteria in urine- Primary Other nonspecific finding on examination of urine [facility] Diagnosis Missed menses- Primary Absence of menstruation 6 weeks gestation of ([facility]) state, incidental Spotting in early ([facility]) Spotting complicating , antepartum condition or complication Obesity affecting in first trimester, unspecified obesity type ([facility]) Nausea Nausea alone 8 weeks gestation of ([facility]) state, incidental documented in this encounter [facility] note* Diagnosis Missed menses- Primary Absence of menstruation 6 weeks gestation of ([facility]) state, incidental Spotting in early ([facility]) Spotting complicating , antepartum condition or complication Obesity affecting in first trimester, unspecified obesity type ([facility]) Nausea Nausea alone , supervision, high-risk, unspecified trimester ([facility])- Primary BMI 38.0-38.9,adult Body Mass Index 38.0-38.9, adult 16 weeks gestation of ([facility]) state, incidental UTI (urinary tract infection) in , antepartum ([facility]) Infections of genitourinary tract antepartum documented in this encounter [facility] note* Diagnosis Missed menses- Primary Absence of menstruation 6 weeks gestation of ([facility]) state, incidental Spotting in early ([facility]) Spotting complicating , antepartum condition or complication Obesity affecting in first trimester, unspecified obesity type ([facility]) Nausea Nausea alone UTI (urinary tract infection) in , antepartum (HCC)- Primary Infections of genitourinary tract antepartum [facility] Diagnosis Missed menses- Primary Absence of menstruation 6 weeks gestation of (H[facility]) state, incidental Spotting in early (HCC) Spotting complicating , antepartum condition or complication Obesity affecting in first trimester, unspecified obesity type (HCC) Nausea Nausea alone Supervision of high risk in second trimester ([facility])- Primary Unspecified high-risk Chronic hypertension in (HCC) Benign essential hypertension complicating , childbirth, and the puerperium, unspecified as to episode of care Obesity in ([facility]) Obesity complicating , childbirth, or the puerperium, unspecified as to episode of care or not applicable History of pre-eclampsia UTI (urinary tract infection) in , antepartum (HCC) Infections of genitourinary tract antepartum 21 weeks gestation of ([facility]) state, incidental * Assessment & Plan Note - Elli Barros MD - 09/03/2024 3:33 PM EDT Associated Problem(s): Obesity in (HCC) NSTs and growth * Assessment & Plan Note - Elli Barros MD - 09/03/2024 3:33 PM EDT Associated Problem(s): Chronic hypertension in (HCC) Growth us starting 28 weeks Orders: OBSTETRIC ULTRASOUND WHI; Standing * Assessment & Plan Note - Elli Barros MD - 09/03/2024 3:28 PM EDT Associated Problem(s): History of pre-eclampsia Continue ASA Orders: BACTERIAL CULTURE, URINE * Assessment & Plan Note - Elli Barros MD - 09/03/2024 3:28 PM EDT Associated Problem(s): UTI (urinary tract infection) in , antepartum ([facility]) WALKER today- did show nitrates on dip. May consider Prophylactic treatment remainder of - will await culture. Orders: BACTERIAL CULTURE, URINE UA DIP, URINE (POC) documented in this encounter [facility]* Diagnosis Missed menses- Primary Absence of menstruation 6 weeks gestation of ([facility]) state, incidental Spotting in early ([facility]) Spotting complicating , antepartum condition or complication Obesity affecting in first trimester, unspecified obesity type ([facility]) Nausea Nausea alone Encounter for anatomic survey ([facility])- Primary Encounter for anatomic survey 8 weeks gestation of ([facility]) state, incidental Obesity affecting in second trimester, unspecified obesity type ([facility]) Supervision of high risk in second trimester ([facility])- Primary Unspecified high-risk Chronic hypertension in ([facility]) Benign essential hypertension complicating , childbirth, and the puerperium, unspecified as to episode of care Obesity in ([facility]) Obesity complicating , childbirth, or the puerperium, unspecified as to episode of care or not applicable History of pre-eclampsia UTI (urinary tract infection) in , antepartum ([facility]) Infections of genitourinary tract antepartum 21 weeks gestation of ([facility]) state, incidental documented in this encounter [facility] note* Diagnosis Missed menses- Primary Absence of menstruation 6 weeks gestation of ([facility]) state, incidental Spotting in early ([facility]) Spotting complicating , antepartum condition or complication Obesity affecting in first trimester, unspecified obesity type ([facility]) Nausea Nausea alone Supervision of high risk in second trimester ([facility])- Primary Unspecified high-risk Chronic hypertension in (HCC) Benign essential hypertension complicating , childbirth, and the puerperium, unspecified as to episode of care Obesity in (HCC) Obesity complicating , childbirth, or the puerperium, unspecified as to episode of care or not applicable History of pre-eclampsia UTI (urinary tract infection) in , antepartum ([facility]) Infections of genitourinary tract antepartum 21 weeks gestation of ([facility]) state, incidental UTI (urinary tract infection) in , antepartum ([facility]) Infections of genitourinary tract antepartum [facility] Diagnosis Missed menses- Primary Absence of menstruation 6 weeks gestation of ([facility]) state, incidental Spotting in early ([facility]) Spotting complicating , antepartum condition or complication Obesity affecting in first trimester, unspecified obesity type ([facility]) Nausea Nausea alone Supervision of high risk in second trimester ([facility])- Primary Unspecified high-risk Chronic hypertension in ([facility]) Benign essential hypertension complicating , childbirth, and the puerperium, unspecified as to episode of care Obesity in ([facility]) Obesity complicating , childbirth, or the puerperium, unspecified as to episode of care or not applicable History of pre-eclampsia UTI (urinary tract infection) in , antepartum ([facility]) Infections of genitourinary tract antepartum 21 weeks gestation of ([facility]) state, incidental Supervision of high risk in second trimester ([facility])- Primary Unspecified high-risk UTI (urinary tract infection) in , antepartum ([facility]) Infections of genitourinary tract antepartum Chronic hypertension in ([facility]) Benign essential hypertension complicating , childbirth, and the puerperium, unspecified as to episode of care 24 weeks gestation of ([facility]) state, incidental * Assessment & Plan Note - Adina Krueger MD - 09/27/2024 3:44 PM EDT Associated Problem(s): UTI (urinary tract infection) in , antepartum ([facility]) just finished antiobiotics Orders: BACTERIAL CULTURE, URINE * Assessment & Plan Note - Adina Krueger MD - 09/27/2024 3:44 PM EDT Associated Problem(s): Chronic hypertension in (HCC) checks BP at homew Orders: BACTERIAL CULTURE, URINE documented in this encounter [facility] note* Diagnosis Missed menses- Primary Absence of menstruation 6 weeks gestation of (HCC) state, incidental Spotting in early (HCC) Spotting complicating , antepartum condition or complication Obesity affecting in first trimester, unspecified obesity type ([facility]) Nausea Nausea alone Supervision of high risk in second trimester ([facility])- Primary Unspecified high-risk Chronic hypertension in (HCC) Benign essential hypertension complicating , childbirth, and the puerperium, unspecified as to episode of care Obesity in ([facility]) Obesity complicating , childbirth, or the puerperium, unspecified as to episode of care or not applicable History of pre-eclampsia UTI (urinary tract infection) in , antepartum ([facility]) Infections of genitourinary tract antepartum 21 weeks gestation of ([facility]) state, incidental Supervision of high risk in second trimester ([facility])- Primary Unspecified high-risk UTI (urinary tract infection) in , antepartum (HCC) Infections of genitourinary tract antepartum Chronic hypertension in (HCC) Benign essential hypertension complicating , childbirth, and the puerperium, unspecified as to episode of care 24 weeks gestation of ([facility]) state, incidental UTI (urinary tract infection) in , antepartum ([facility])- Primary Infections of genitourinary tract antepartum Supervision of high risk in second trimester ([facility]) Unspecified high-risk Chronic hypertension in (HCC) Benign essential hypertension complicating , childbirth, and the puerperium, unspecified as to episode of care 28 weeks gestation of ([facility]) state, incidental documented in this encounter [facility] note* Diagnosis Missed menses- Primary Absence of menstruation 6 weeks gestation of (HCC) state, incidental Spotting in early (HCC) Spotting complicating , antepartum condition or complication Obesity affecting in first trimester, unspecified obesity type ([facility]) Nausea Nausea alone Supervision of high risk in second trimester ([facility])- Primary Unspecified high-risk Chronic hypertension in (HCC) Benign essential hypertension complicating , childbirth, and the puerperium, unspecified as to episode of care Obesity in (HCC) Obesity complicating , childbirth, or the puerperium, unspecified as to episode of care or not applicable History of pre-eclampsia UTI (urinary tract infection) in , antepartum ([facility]) Infections of genitourinary tract antepartum 21 weeks gestation of ([facility]) state, incidental Supervision of high risk in second trimester ([facility])- Primary Unspecified high-risk UTI (urinary tract infection) in , antepartum ([facility]) Infections of genitourinary tract antepartum Chronic hypertension in ([facility]) Benign essential hypertension complicating , childbirth, and the puerperium, unspecified as to episode of care 24 weeks gestation of ([facility]) state, incidental Encounter for ultrasound to check growth ([facility])- Primary Encounter for routine screening for malformation using ultrasonics Chronic hypertension in ([facility]) Benign essential hypertension complicating , childbirth, and the puerperium, unspecified as to episode of care 28 weeks gestation of ([facility]) state, incidental [facility] Diagnosis Missed menses- Primary Absence of menstruation 6 weeks gestation of ([facility]) state, incidental Spotting in early ([facility]) Spotting complicating , antepartum condition or complication Obesity affecting in first trimester, unspecified obesity type ([facility]) Nausea Nausea alone Supervision of high risk in second trimester ([facility])- Primary Unspecified high-risk Chronic hypertension in ([facility]) Benign essential hypertension complicating , childbirth, and the puerperium, unspecified as to episode of care Obesity in ([facility]) Obesity complicating , childbirth, or the puerperium, unspecified as to episode of care or not applicable History of pre-eclampsia UTI (urinary tract infection) in , antepartum ([facility]) Infections of genitourinary tract antepartum 21 weeks gestation of ([facility]) state, incidental UTI (urinary tract infection) in , antepartum (HCC)- Primary Infections of genitourinary tract antepartum Supervision of high risk in second trimester (HCC)- Primary Unspecified high-risk UTI (urinary tract infection) in , antepartum (HCC) Infections of genitourinary tract antepartum Chronic hypertension in (HCC) Benign essential hypertension complicating , childbirth, and the puerperium, unspecified as to episode of care 24 weeks gestation of ([facility]) state, incidental documented in this encounter [facility] note* Diagnosis Missed menses- Primary Absence of menstruation 6 weeks gestation of ([facility]) state, incidental Spotting in early (HCC) Spotting complicating , antepartum condition or complication Obesity affecting in first trimester, unspecified obesity type ([facility]) Nausea Nausea alone Supervision of high risk in second trimester (HCC)- Primary Unspecified high-risk Chronic hypertension in (HCC) Benign essential hypertension complicating , childbirth, and the puerperium, unspecified as to episode of care Obesity in (HCC) Obesity complicating , childbirth, or the puerperium, unspecified as to episode of care or not applicable History of pre-eclampsia UTI (urinary tract infection) in , antepartum (HCC) Infections of genitourinary tract antepartum 21 weeks gestation of ([facility]) state, incidental Supervision of high risk in second trimester ([facility])- Primary Unspecified high-risk UTI (urinary tract infection) in , antepartum (HCC) Infections of genitourinary tract antepartum Chronic hypertension in (HCC) Benign essential hypertension complicating , childbirth, and the puerperium, unspecified as to episode of care 24 weeks gestation of ([facility]) state, incidental Obesity affecting in first trimester, unspecified obesity type ([facility])- Primary Chronic hypertension in (HCC) Benign essential hypertension complicating , childbirth, and the puerperium, unspecified as to episode of care documented in this encounter [facility] note* Diagnosis Missed menses- Primary Absence of menstruation 6 weeks gestation of ([facility]) state, incidental Spotting in early (HCC) Spotting complicating , antepartum condition or complication Obesity affecting in first trimester, unspecified obesity type ([facility]) Nausea Nausea alone Supervision of high risk in second trimester (HCC)- Primary Unspecified high-risk Chronic hypertension in (HCC) Benign essential hypertension complicating , childbirth, and the puerperium, unspecified as to episode of care Obesity in (HCC) Obesity complicating , childbirth, or the puerperium, unspecified as to episode of care or not applicable History of pre-eclampsia UTI (urinary tract infection) in , antepartum (HCC) Infections of genitourinary tract antepartum 21 weeks gestation of (HCC) state, incidental Supervision of high risk in second trimester (HCC)- Primary Unspecified high-risk UTI (urinary tract infection) in , antepartum (HCC) Infections of genitourinary tract antepartum Chronic hypertension in (HCC) Benign essential hypertension complicating , childbirth, and the puerperium, unspecified as to episode of care 24 weeks gestation of (HCC) state, incidental , supervision, high-risk, unspecified trimester (HCC)- Primary Antepartum anemia complicating in third trimester (HCC) Chronic hypertension in (HCC) Benign essential hypertension complicating , childbirth, and the puerperium, unspecified as to episode of care Obesity affecting in third trimester, unspecified obesity type (HCC) Generalized anxiety disorder 33 weeks gestation of (HCC) state, incidental documented in this encounter [facility] for visit Narrative* Diagnostic Procedure Only (Routine) - Closed Specialty Diagnoses / Procedures Referred By Omid robb Referred To Contact [facility] Diagnoses 8 weeks gestation of ([facility]) Procedures OBSTETRIC ULTRASOUND WHI US PREG UTERUS AFTER 1ST TRIMEST GESTATION Leanne Aquino APRN.[employer]ER [address] [place] [address] Phone: tel: fax: [address] [address] Referral ID Status Reason Start Date Expiration Date V isits Requested Visits Authorized [id number] Closed Auto-Generate d Referral 06/21/2024 04/06/2025 1 1 [facility] for visit Narrative* Diagnostic Procedure Only (Routine) - Authorized Specialty Diagnoses / Procedures Referred By Omid robb Referred To Contact [facility] Diagnoses Chronic hypertension in (HCC) 21 weeks gestation of (HCC) Procedures OBSTETRIC ULTRASOUND WHI US PREG UTERUS AFTER 1ST TRIMEST GESTATION Elli Barros MD [address] [place] [address] Phone: tel: fax: [facility] [address] [place] [address] Referral ID Status Reason Start Date Expiration Date Visits Requested Visits Authorized [id number] Authorized Auto-Generat ed Referral 04/07/2024 04/06/2025 [address] [facility] Assessments Diagnosis Threatened miscarriage- Primary Threatened , unspecified as to episode of care Summary Purpose Family History No Family History Records FoundNo Family History Records Found Advance Directives No Advanced Directives Records FoundNo Advanced Directives Records Found Additional Source Comments Source Comments (unrecognize d section and content) In the event this informatio n is protected by the Federal Confidentiality of Alcohol and Drug Abuse Patient Records regulations: The Federal rules restrict any use of the information to criminally investigate or prosecute any alcohol or drug abuse patient.[facility] the event this information is protected by the Federal Confidentiality of Alcohol and Drug Abuse Patient Records regulations: The Federal rules restrict any use of the information to criminally investigate or prosecute any alcohol or drug abuse patient.[facility] the event this information is protected by the Federal Confidentiality of Alcohol and Drug Abuse Patient Records regulations: The Federal rules restrict any use of the information to criminally investigate or prosecute any alcohol or drug abuse patient.[facility] the event this information is protected by the Federal Confidentiality of Alcohol and Drug Abuse Patient Records regulations: The Federal rules restrict any use of the information to criminally investigate or prosecute any alcohol or drug abuse patient.[facility] the event this information is protected by the Federal Confidentiality of Alcohol and Drug Abuse Patient Records regulations: The Federal rules restrict any use of the information to criminally investigate or prosecute any alcohol or drug abuse patient.[facility] the event this information is protected by the Federal Confidentiality of Alcohol and Drug Abuse Patient Records regulations: The Federal rules restrict any use of the information to criminally investigate or prosecute any alcohol or drug abuse patient.[facility] the event this information is protected by the Federal Confidentiality of Alcohol and Drug Abuse Patient Records regulations: The Federal rules restrict any use of the information to criminally investigate or prosecute any alcohol or drug abuse patient.[facility] the event this information is protected by the Federal Confidentiality of Alcohol and Drug Abuse Patient Records regulations: The Federal rules restrict any use of the information to criminally investigate or prosecute any alcohol or drug abuse patient.[facility] the event this information is protected by the Federal Confidentiality of Alcohol and Drug Abuse Patient Records regulations: The Federal rules restrict any use of the information to criminally investigate or prosecute any alcohol or drug abuse patient.[facility] the event this information is protected by the Federal Confidentiality of Alcohol and Drug Abuse Patient Records regulations: The Federal rules restrict any use of the information to criminally investigate or prosecute any alcohol or drug abuse patient.[facility] the event this information is protected by the Federal Confidentiality of Alcohol and Drug Abuse Patient Records regulations: The Federal rules restrict any use of the information to criminally investigate or prosecute any alcohol or drug abuse patient.[facility] Hospital[facility] the event this information is protected by the Federal Confidentiality of Alcohol and Drug Abuse Patient Records regulations: The Federal rules restrict any use of the information to criminally investigate or prosecute any alcohol or drug abuse patient.[facility] the event this information is protected by the Federal Confidentiality of Alcohol and Drug Abuse Patient Records regulations: The Federal rules restrict any use of the information to criminally investigate or prosecute any alcohol or drug abuse patient.[facility] Hospital[facility] the event this information is protected by the Federal Confidentiality of Alcohol and Drug Abuse Patient Records regulations: The Federal rules restrict any use of the information to criminally investigate or prosecute any alcohol or drug abuse patient.[facility] Hospital[facility] the event this information is protected by the Federal Confidentiality of Alcohol and Drug Abuse Patient Records regulations: The Federal rules restrict any use of the information to criminally investigate or prosecute any alcohol or drug abuse patient.[facility] the event this information is protected by the Federal Confidentiality of Alcohol and Drug Abuse Patient Records regulations: The Federal rules restrict any use of the information to criminally investigate or prosecute any alcohol or drug abuse patient.[facility] Hospital[facility] the event this information is protected by the Federal Confidentiality of Alcohol and Drug Abuse Patient Records regulations: The Federal rules restrict any use of the information to criminally investigate or prosecute any alcohol or drug abuse patient.[facility] Hospital[facility] the event this information is protected by the Federal Confidentiality of Alcohol and Drug Abuse Patient Records regulations: The Federal rules restrict any use of the information to criminally investigate or prosecute any alcohol or drug abuse patient.[facility] HospitalIn the event this information is protected by the Federal Confidentiality of Alcohol and Drug Abuse Patient Records regulations: The Federal rules restrict any use of the information to criminally investigate or prosecute any alcohol or drug abuse patient.[facility] HospitalIn the event this information is protected by the Federal Confidentiality of Alcohol and Drug Abuse Patient Records regulations: The Federal rules restrict any use of the information to criminally investigate or prosecute any alcohol or drug abuse patient.[facility] Hospital[facility] the event this information is protected by the Federal Confidentiality of Alcohol and Drug Abuse Patient Records regulations: The Federal rules restrict any use of the information to criminally investigate or prosecute any alcohol or drug abuse patient.[facility] HospitalIn the event this information is protected by the Federal Confidentiality of Alcohol and Drug Abuse Patient Records regulations: The Federal rules restrict any use of the information to criminally investigate or prosecute any alcohol or drug abuse patient.[facility] HospitalIn the event this information is protected by the Federal Confidentiality of Alcohol and Drug Abuse Patient Records regulations: The Federal rules restrict any use of the information to criminally investigate or prosecute any alcohol or drug abuse patient.[facility] HospitalIn the event this information is protected by the Federal Confidentiality of Alcohol and Drug Abuse Patient Records regulations: The Federal rules restrict any use of the information to criminally investigate or prosecute any alcohol or drug abuse patient.[facility] HospitalIn the event this information is protected by the Federal Confidentiality of Alcohol and Drug Abuse Patient Records regulations: The Federal rules restrict any use of the information to criminally investigate or prosecute any alcohol or drug abuse patient.[facility] HospitalIn the event this information is protected by the Federal Confidentiality of Alcohol and Drug Abuse Patient Records regulations: The Federal rules restrict any use of the information to criminally investigate or prosecute any alcohol or drug abuse patient.[facility] HospitalIn the event this information is protected by the Federal Confidentiality of Alcohol and Drug Abuse Patient Records regulations: The Federal rules restrict any use of the information to criminally investigate or prosecute any alcohol or drug abuse patient.[facility] HospitalIn the event this information is protected by the Federal Confidentiality of Alcohol and Drug Abuse Patient Records regulations: The Federal rules restrict any use of the information to criminally investigate or prosecute any alcohol or drug abuse patient.[facility] HospitalIn the event this information is protected by the Federal Confidentiality of Alcohol and Drug Abuse Patient Records regulations: The Federal rules restrict any use of the information to criminally investigate or prosecute any alcohol or drug abuse patient.[facility] HospitalIn the event this information is protected by the Federal Confidentiality of Alcohol and Drug Abuse Patient Records regulations: The Federal rules restrict any use of the information to criminally investigate or prosecute any alcohol or drug abuse patient.[facility] HospitalIn the event this information is protected by the Federal Confidentiality of Alcohol and Drug Abuse Patient Records regulations: The Federal rules restrict any use of the information to criminally investigate or prosecute any alcohol or drug abuse patient.[facility] HospitalIn the event this information is protected by the Federal Confidentiality of Alcohol and Drug Abuse Patient Records regulations: The Federal rules restrict any use of the information to criminally investigate or prosecute any alcohol or drug abuse patient.[facility] HospitalIn the event this information is protected by the Federal Confidentiality of Alcohol and Drug Abuse Patient Records regulations: The Federal rules restrict any use of the information to criminally investigate or prosecute any alcohol or drug abuse patient.[facility] Reason for Visit (unrecogniz ed section and content) Reason Comments Care + test Reason Comments Refill Request Reason Onset Date Comments Refill Request 01/28/2022 Reason Comments Well Woman Specialty Diagnoses / Procedures Referred By Contac t Referred To Contact [facility] / [facility] Diagnoses Annual Exam Procedures Annual Exam Sheyla Moreno APRN.CNM [address] [place] [address] [address] Referral ID Status Reason Start Date Expiration Date Visits Requested Visits Authorized [id number] Denied Financial Clearance Required - OON Payor OON Notification Letter Clearance Not Met - Admin/Body Trimmer/D irector Advise to Postpone/Resched ule or Not Proceed 2 04/28/2022 1 0 Reason Onset Date Comments Refill Request 01/20/2023 Reason Comments Problem Visit Reason Comments New OB/First OB Reason Onset Date Comments Care 07/05/2024 Reason Comments Orders Reason Onset Date Comments Care 08/02/2024 Reason Onset Date Comments Results 08/04/2024 Reason Onset Date Comments Care 09/03/2024 Reason Comments US Specialty Diagnoses / Procedures Referred By Contac t Referred To Contact [facility] Diagnoses 8 weeks gestation of (HCC) Procedures OBSTETRIC ULTRASOUND WHI US PREG UTERUS AFTER 1ST TRIMEST GESTATION Leanne Aquino APRN.[employer]ER [address] [place] [address] Phone: tel: fax: [address] [address] Referral ID Status Reason Start Date Expiration Date V isits Requested Visits Authorized [id number] Closed Auto-Generate d Referral 08/20/2024 04/06/2025 1 1 Reason Comments Breast Pump Specialty Diagnoses / Procedures Referred By Contac t Referred To Contact [facility] Diagnoses Chronic hypertension in (HCC) 21 weeks gestation of (HCC) Procedures OBSTETRIC ULTRASOUND WHI US PREG UTERUS AFTER 1ST TRIMEST GESTATION Elli Barros MD [address] [place] [address] Phone: tel: fax: [facility] [address] [place] [address] Referral ID Status Reason Start Date Expiration Date Visits Requested Visits Authorized [id number] Authorized Auto-Generat ed Referral 04/07/2024 04/06/2025 5 5 Reason Onset Date Comments Care 11/26/2024 Telephone Encounter - Terra Fuentes LPN - 05/29/2020 4:13 PM ESTTelephone Encounter - Sheyla Moreno) - 05/29/2020 3:57 PM EST Miscellaneous Notes (unrecog nized section and content) Patient notified Nothing in the vagina, no intercourse. Will order serum quant. Thank you, Sheyla Moreno APRN.CNM Lmp was 04/25/20 and was only 2 days long. First . Patient started having cramping around noon yesterday and began having brownish colored spotting at 9 pm. Patient states that she has continued to have spotting that she notices only when using the restroom and today her spotting is more brownish-red. Patient states that her cramping has lessened today. Please advise if hcg quants are appropriate? documented in this encounter INFORMATION SOURCE (unrecogn ized section and content) DATE CREATED AUTHOR 05/20/2021 [facility] DATE CREATED AUTHOR AUTHOR'S ORGANIZ ATION 11/28/2024 [facility] Care Teams (unrecognized sec tion and content) Sheet Tailer Relationship Specialty Start Date End Date Chiki Gonzales MD PCP - General Family Medicine 08/08/12 Sheet Tailer Relationship Specialty Start Date End Date Chiki Gonzales MD PCP - General Family Medicine 08/08/12 Sheet Tailer Relationship Specialty Start Date End Date Chiki Gonzales MD PCP - General Family Medicine 08/08/12 Sheet Tailer Relationship Specialty Start Date End Date Chiki Gonzales MD PCP - General Family Medicine 08/08/12 Sheet Tailer Relationship Specialty Start Date End Date Chiki Gonzales MD PCP - General Family Medicine 08/08/12 Sheet Tailer Relationship Specialty Start Date End Date Chiki Gonzales MD PCP - General Family Medicine 08/08/12 Sheet Tailer Relationship Specialty Start Date End Date Chiki Gonzales MD PCP - General Family Medicine 08/08/12 Sheet Tailer Relationship Specialty Start Date End Date Chiki Gonzales MD PCP - General Family Medicine 08/08/12 Sheet Tailer Relationship Specialty Start Date End Date Chiki Gonzales MD PCP - General Family Medicine 08/08/12 Sheet Tailer Relationship Specialty Start Date End Date Chiki Gonzales MD PCP - General Family Medicine 08/08/12 Sheet Tailer Relationship Specialty Start Date End Date Chiki Gonzales MD PCP - General Family Medicine 08/08/12 Sheet Tailer Relationship Specialty Start Date End Date Chiki Gonzales MD PCP - General Family Medicine 08/08/12 Sheet Tailer Relationship Specialty Start Date End Date Chiki Gonzales MD PCP - General Family Medicine 08/08/12 Sheet Tailer Relationship Specialty Start Date End Date Chiki Gonzales MD PCP - General Family Medicine 08/08/12 Sheet Tailer Relationship Specialty Start Date End Date Chiki Gonzales MD PCP - General Family Medicine 08/08/12 Sheet Tailer Relationship Specialty Start Date End Date Chiki Gonzales MD PCP - General Family Medicine 08/08/12 Sheet Tailer Relationship Specialty Start Date End Date Chiki Gonzales MD PCP - General Family Medicine 08/08/12 Sheet Tailer Relationship Specialty Start Date End Date Chiki Gonzales MD PCP - General Family Medicine 08/08/12 Sheet Tailer Relationship Specialty Start Date End Date Chiki Gonzales MD PCP - General Family Medicine 08/08/12 Sheet Tailer Relationship Specialty Start Date End Date Chiki Gonzales MD PCP - General Family Medicine 08/08/12 Sheet Tailer Relationship Specialty Start Date End Date Chiki Gonzales MD PCP - General Family Medicine 08/08/12 Sheet Tailer Relationship Specialty Start Date End Date Chiki Gonzales MD PCP - General Family Medicine 08/08/12 Sheet Tailer Relationship Specialty Start Date End Date Chiki Gonzales MD PCP - General Family Medicine 08/08/12 Sheet Tailer Relationship Specialty Start Date End Date Chiki Gonzales MD PCP - General Family Medicine 08/08/12 Sheet Tailer Relationship Specialty Start Date End Date Chiki Gonzales MD PCP - General Family Medicine 08/08/12 Sheet Tailer Relationship Specialty Start Date End Date Chiki Gonzales MD PCP - General Family Medicine 08/08/12 Sheet Tailer Relationship Specialty Start Date End Date Chiki Gonzales MD PCP - General Family Medicine 08/08/12 Sheet Tailer Relationship Specialty Start Date End Date Chiki Gonzales MD PCP - General Family Medicine 08/08/12 Sheet Tailer Relationship Specialty Start Date End Date Chiki Gonzales MD PCP - General Family Medicine 08/08/12 Sheet Tailer Relationship Specialty Start Date End Date Chiki Gonzales MD PCP - General Family Medicine 08/08/12 FOR RECORDS PERTAINING TO PATIENTS WHO ARE OR HAVE BEEN ENROLLED IN A CHEMICAL DEPENDENCY/SUBSTANCEABUSE PROGRAM, SOME INFORMATION MAY BE OMITTED. This clinical summary was aggregated from multiple sources. Caution should be exercised in using it in the provision of clinical care. This summary normalizes information from multiple sources, and as a consequence, information in this document may materially change the coding, format and clinical context of patient data. In addition, data may be omitted in some cases. CLINICAL DECISIONS SHOULD BE BASED ON THE PRIMARY CLINICAL RECORDS. [facility] provides no warranty or guarantee of the accuracy or completeness of information in this document.
[2024-12-04 11:27] LABS: Mucous, Urine 0 SEEN /hpf (<or=2+)
--- NOTE | 2024-12-04 11:31 | OB.TRI.NOTE ---
HPI - General General Date of Service: 12/04/24 HPI Narrative ANA DAVIES, is a 34 F who presents who presents at 34 weeks with BRITTANY: [birth year] with complaints of leftsided back pain wrapping around from left lower abdomen. Started last night, did not get any sleep and difficulty sitting still due to pain. Denies any vaginal bleeding, fluid leakage, pain with urination, bleeding with urination, or contractions. Does not feel like labor and pain in left groin wrapping around to back. with persistent UTI and currently taking Macrobid 100mg PO once daily for prophylaxis. Maternal Data Information Final BRITTANY: 01[birth year]25 [facility] Medical History (Updated 12/04/24 @ 12:46 by Sheyla Moreno CNM) SROM (spontaneous rupture of membranes) Anxiety Home Medications ?Medication ?Instructions ?Recorded ?Last Taken ?Type [id number] 1 mg 1 tab PO DAILY 01/08/21 01/08/21 10:00 History tablet acetaminophen 500 mg tablet 1,000 mg (2 x 500 mg) PO Q6H PRN 01/13/21 Unknown Rx PRN Pain 1-10 Or Fever #0 tabs aspirin 81 mg capsule 81 mg PO DAILY 12/04/24 Unknown History nitrofurantoin 100 mg PO DAILY UTI 12/04/24 Unknown History monohydrate/macrocrystals 100 mg capsule (Macrobid) Allergy/AdvReac Type Severity Reaction Status Date / Time No Known Allergies Allergy Verified 12/04/24 11:01 Surgical History (Updated 01/09/21 @ 00:26 by Madison Hines) H/O wisdom tooth extraction Social History Smoking Status: Former smoker History Elective abortions Hx Para 0 Spontaneous abortions Hx # Term Pregnancies Ectopic pregnancies Hx # Pregnancies Multiple births # of living children ROS Constitutional Constitutional: Reports systems reviewed and no addt'l complaints, except as documented; Denies headache(s) Eyes Eyes: Denies acute decrease in peripheral vision, blurry vision or change in vision ENT HEENT: Reports systems reviewed and no addt'l complaints, except as documented Cardiovascular Cardiovascular: Denies chest pain or dizziness Respiratory/Chest Respiratory/Chest: Denies cough, dyspnea, dyspnea on exertion, shortness of breath at rest or shortness of breath with exertion Gastrointestinal Gastrointestinal: Reports abdominal pain, nausea, vomiting and other Details: left lower groin pain that is wrapping around to left side of back/flank ; Denies diarrhea Genitourinary Genitourinary: Denies abdominal discomfort or movement Musculoskeletal Musculoskeletal: Denies limited range of motion Integumentary Integumentary: Reports systems reviewed and no addt'l complaints, except as documented Neurologic Neurologic: Reports systems reviewed and no addt'l complaints, except as documented Psychiatric Psychiatric: Reports systems reviewed and no addt'l complaints, except as documented Endocrine Endocrinology: Reports systems reviewed and no addt'l complaints, except as documented Hematologic/Lymphatic Hematologic/Lymphatic: Reports systems reviewed and no addt'l complaints, except as documented Allergic/Immunologic Allergic/Immunologic: Reports systems reviewed and no addt'l complaints, except as documented Physical Exam Const alert and oriented x3 Constitutional Narrative: Visibly in pain/discomfort, unable to sit still in the bed General Appearance: cooperative Orientation / Consciousness: awake, oriented to person, oriented to place and oriented to time Exam Limitations: no limitations HEENT normocephalic Head and Scalp: normal to inspection, normocephalic and atraumatic Face and Sinus: normal facial exam Eyes General Eye: normal appearance of both eyes Neck full ROM Chest Chest: symmetrical chest wall rise Resp normal respiratory effort and normal air movement Auscultation: clear to auscultation bilaterally Cardio regular rate, regular rhythm, S1 normal heart sound, S2 normal heart sound, no murmurs, no rub, no gallops and no clicks GI normal to inspection, nondistended, normoactive bowel sounds and non-tender Auscultation: normoactive bowel sounds Palpation: other Other Details: soft, non tender. appearance of the vagina normal Bladder / Kidney Exam: CVA tenderness left Back/Spine normal ROM Extremity normal to inspection and full ROM Skin no rashes or lesions noted Neuro oriented x3, CN's II-XII intact bilaterally and moves all extremities Sensorium / Orientation: awake, alert and oriented to person Motor Exam: clonus absent Deep Tendon Reflexes: Rt Patellar (L4): 2+ and Lt Patellar (L4): 2+ NST FHR Rate Baby B Baseline: 140 Variability:: Moderate Accelerations:: 15 x 15 Decelerations:: None NST Reactive:: Yes Uterine Activity:: None Assessment & Plan (1) Flank pain, acute: (2) Pyelonephritis affecting : COMMENT: Cefepime 1gr IVPB. Will transition to oral Bactrim. CT scan without contrast ordered. (3) Recurrent UTI (urinary tract infection) complicating : COMMENT: Ecoli UTI in . Macrobid 100mg PO once daily for prophylaxis (4) 34 weeks gestation of : (5) Chronic hypertension affecting : COMMENT: CHTN, no medications PLAN: Plan 1) NST reactive 2) CBC, UA, urine culture, CT scan without contrast 3) 1 Liter LR 4) Last urine culture on 11/09 susceptible to Cefepime, 1 gram IV x1. Will follow up after treatment but likely Bactrim for further prophylaxis 5) collaborative physician and notified of patient status above assessment and plan of care.
[2024-12-04 11:39] LABS: Color, Urine Yellow (Yellow); Glucose, Dipstick Normal (Normal); Ketone-Dipstick Negative (Negative); Leukocyte Esterase-Dipstick 25 /ul (Negative); Nitrite-Dipstick Negative (Negative); Occult Blood-Urine 25 /ul (Negative); Protein-Dipstick 15 mg/dl (Negative); Specific Gravity, Urine 1.015 (1.002-1.030); Urine Bilirubin Dipstick Negative (Negative)
[2024-12-04 11:42] LABS: Hematocrit 32.2 % (37-47); Hemoglobin 11.0 g/dL (12.0-15.0); Immature Granulocytes Count 0.120 X10^3/uL (0.0-0.0); Mean Corp Hgb Conc 34.2 g/dL (32-36); Mean Corpuscular Volume 90.2 fL (81-99); Mean Platelet Vol. 11.8 fl (6.2-12.0); NRBC Flagged by Analyzer 0 % (0-5); Platelet Count 185 K/mm3 (150-450); RBC Distribution Width CV 12.7 % (11.6-14.6); RBC Distribution Width SD 41.8 fl (35.1-43.9); Red Blood Count 3.57 M/mm3 (4.2-5.4); White Blood Count 13.8 K/mm3 (4.4-11.0)
[2024-12-04 11:45] LABS: Red Blood Cells-Urine 0-5 SEEN /hpf (0-5)
[2024-12-04 11:46] LABS: Squamous Epithelial Cells - UA 0-5 SEEN /hpf (5-10)
[2024-12-04] MEDS: Lactated Ringers 1,000 ML 999 ML IV (11:48)
[2024-12-04] MEDS: Cefepime HCl 1 GM in 0.9% Normal Saline (50mL MB+) 50 ML IV (11:50)
--- NOTE | 2024-12-04 12:51 | CT_ITS ---
PROCEDURE: ABDOMEN/PELVIS WITHOUT CONT 12/04/2024 REASON FOR EXAM: FLANK PAIN TECHNIQUE: Procedure Code: CTABDPEL Modality: CT Procedure: ABDOMEN/PELVIS WITHOUT CONT Noncontrast technique limits evaluation of the abdominal and pelvic viscera. Coronal and Sagittal reconstruction series were provided. One or more dose reduction techniques were used (e.g., Automated exposure control, adjustment of the mA and/or kV according to patient size, use of iterative reconstruction technique). RADIATION DOSE SUMMARY: CTDlvol: 22 mGy DLP: 1320 mGycm FINDINGS: Normal appearance of the liver and spleen without contrast. Nonobstructing punctate renal calculus is present. There is a stone at the left UPJ which measures 16 by 11 mm. The patient is . The position is cephalic. There is no free-fluid. There is no free air. There is no bowel obstruction. The placenta is anterior. CT/Abdomen/Pelvis without Cont IMPRESSION: Obstructing stone left UPJ measuring 16 x 11 mm. Left-sided hydronephrosis. Reading [facility]
[2024-12-04] MEDS: Lactated Ringers 1,000 ML 150 ML IV (14:40)
[2024-12-04 16:28] LABS: Estimated Creatinine Clearance 118.54 ml/min (50-250)
--- OUTSIDE RECORDS SUMMARY | 2024-12-04 17:09 | XMS RPT_ITS | CCD ---
Author Organization [facility] Care Team Providers Care Agriculture Technician Name Role Phone Chiki Gonzales Primary Care [...] CHIKI Dominique Primary Care Unavailable GONZALES, CHIKI Doimnique Primary Care Unavailable POLLY HAMILTON Attending Unavailable [...] Unavailable Gonzales Chiki STAUFFER Primary Care Provider Medications Current Medications Medication Drug Class(es) Dates Sig (Normalized) Sig (Original) aspirin 81 mg delayed release oral tablet (20 sources) Platelet Aggregation Inhibitor, Nonsteroidal Anti-inflammatory Drug Start: 06-07-2024 take 1 tablet by mouth once daily aspirin, enteric coated (ECOTRIN LOW STRENGTH) 81 mg EC tablet Indications: 8 weeks gestation of ([facility]) Take 1 tablet by mouth once daily. [...] mg tablet Indications: 30 weeks gestation of ([facility]) , Gastroesophageal reflux disease, unspecified whether esophagitis [...] UTI (urinary tract infection) in , antepartum ([facility]) Take 1 capsule by mouth two times [...] Patient) Start: 04-09-2023 take 1 tablet by [facility] once daily norgestimate 0.25 mg-ethinyl estradiol 35 [...] day as needed for anxiety. 06/07/2024 Discontinued Oaggulbj-Dc-Kul-Fe- FA ( VITAMIN) tab (9 sources) take 1 tablet by mouth once Htczwbtc-Il-Rei-Fe -FA ( VITAMIN) tab Take 1 tablet [...] of ; Translations: [16 weeks gestation of ([facility])] Onset: 08-02-2024 Episodic Residual codes; unclassified (2 sources) 8 weeks gestation of ; Translations: [8 weeks gestation of ([facility])] Onset: 06-07-2024 Episodic Screening and history of mental health and substance abuse codes (20 sources) H/O: anxiety state; Translations: [Personal history of other mental and behavioral disorders] Onset: 06-08-2020 Resolved: 10-27-2024 06-08-2020 Episodic Results Test Name Value Interpretation Reference Range Facil ity CBC W Auto Differential pane l (Bld)on 11-26-2024 Basophils (Bld) [#/Vol] 0.03 10*3/uL Normal <0.11 [facility] Comment on above: Order Comment: Speci men Type: BLOOD SPECIMEN [facility] Address: [address] [place] [address] Performed By: #### 2 4323-8 #### [facility] CLIA [id number] [address] [place] Basophils/100 WBC (Bld) 0.2 % Normal [facility] Comment on above: Order Comment: Speci men Type: BLOOD SPECIMEN [facility]: [facility] Address: [address] [place] [address] Performed By: #### 2 4323-8 #### [facility] CLIA [id number] 1 [place] [address] [place] Differential cell count method Nom (Bld) Auto Normal [facility] Comment on above: Order Comment: Speci men Type: BLOOD SPECIMEN [facility]ing [facility]: [facility] Address: [address] [place] [address] Performed By: #### 2 4323-8 #### [facility] CLIA [id number] [address] [place] Eosinophils (Bld) [#/Vol] 0.07 10*3/uL Normal <0.46 [facility] Comment on above: Order Comment: Speci men Type: BLOOD SPECIMEN [facility]: [facility] Address: [address] [place] [address] Performed By: #### 2 4323-8 #### [facility] CLIA [id number] [address] [place] Eosinophils/100 WBC (Bld) 0.6 % Normal [facility] Comment on above: Order Comment: Speci men Type: BLOOD SPECIMEN [facility] Address: [address] [place] [address] Performed By: #### 2 4323-8 #### [facility] CLIA [id number] [address] Erythrocyte distribution width (RBC) [Ratio] 13.0 % Normal 11.5-15.0 [facility] Comment on above: Order Comment: Speci men Type: BLOOD SPECIMEN [facility] Address: [address] [place] [address] Performed By: #### 2 4323-8 #### [facility] CLIA [id number] [address] [place] Hematocrit (Bld) [Volume fraction] 32.7 % Low 36.0-46.0 [facility] Comment on above: Order Comment: Speci men Type: BLOOD SPECIMEN [facility] Address: [address] [place] [address] Performed By: #### 2 4323-8 #### [facility] CLIA [id number] [address] [place] Hemoglobin (Bld) [Mass/Vol] 11.0 g/dL Low 11.5-15.5 [facility] Comment on above: Order Comment: Speci men Type: BLOOD SPECIMEN [facility] Address: [address] [place] [address] Performed By: #### 2 4323-8 #### [facility] CLIA [id number] [address] [place] Immature granulocytes (Bld) [#/Vol] 0.08 10*3/uL Normal <0.10 [facility] Comment on above: Order Comment: Speci men Type: BLOOD SPECIMEN [facility] Address: [address] [place] [address] Performed By: #### 2 4323-8 #### [facility] CLIA [id number] [address] OF [facility] Immature granulocytes/100 WBC (Bld) 0.7 % Normal [facility] Comment on above: Order Comment: Speci men Type: BLOOD SPECIMEN [facility] Address: [address] [place] [address] Performed By: #### 2 4323-8 #### [facility] CLIA [id number] [address] [place] Lymphocytes (Bld) [#/Vol] 2.15 10*3/uL Normal 1.00-4.00 [facility] Comment on above: Order Comment: Speci men Type: BLOOD SPECIMEN [facility] Address: [address] [place] [address] Performed By: #### 2 4323-8 #### [facility] CLIA [id number] [address] [place] Lymphocytes/100 WBC (Bld) 17.7 % Normal [facility] Comment on above: Order Comment: Speci men Type: BLOOD SPECIMEN [facility] Address: [address] [place] [address] Performed By: #### 2 4323-8 #### [facility] CLIA [id number] [address] [place] MCH (RBC) [Entitic mass] 30.6 pg Normal 26.0-34.0 [facility] Comment on above: Order Comment: Speci men Type: BLOOD SPECIMEN [facility] Address: [address] [place] [address] Performed By: #### 2 4323-8 #### [facility] CLIA [id number] [address] MCHC (RBC) [Mass/Vol] 33.6 g/dL Normal 30.5-36.0 [facility] Comment on above: Order Comment: Speci men Type: BLOOD SPECIMEN [facility] Address: [address] [place] [address] Performed By: #### 2 4323-8 #### [facility] CLIA [id number] [address] MCV (RBC) [Entitic vol] 90.8 fL Normal 80.0-100.0 [facility] Comment on above: Order Comment: Speci men Type: BLOOD SPECIMEN [facility] Address: [address] [place] [address] Performed By: #### 2 4323-8 #### [facility] CLIA [id number] [address] [place] Monocytes (Bld) [#/Vol] 0.69 10*3/uL Normal <0.87 [facility] Comment on above: Order Comment: Speci men Type: BLOOD SPECIMEN [facility] Address: [address] [place] [address] Performed By: #### 2 4323-8 #### [facility] CLIA [id number] [address] Monocytes/100 WBC (Bld) 5.7 % Normal [facility] Comment on above: Order Comment: Speci men Type: BLOOD SPECIMEN [facility] Address: [address] [place] [address] Performed By: #### 2 4323-8 #### [facility] CLIA [id number] [address] [place] Neutrophils (Bld) [#/Vol] 9.16 10*3/uL High 1.45-7.50 [facility] Comment on above: Order Comment: Speci men Type: BLOOD SPECIMEN [facility] Address: [address] [place] [address] Performed By: #### 2 4323-8 #### [facility] CLIA [id number] [address] Neutrophils/100 WBC (Bld) 75.1 % Normal [facility] Comment on above: Order Comment: Speci men Type: BLOOD SPECIMEN [facility] Address: [address] [place] [address] Performed By: #### 2 4323-8 #### [facility] CLIA [id number] [address] [place] Nucleated RBC (Bld) [#/Vol] 10*3/uL Normal <0.01 [facility] Comment on above: Order Comment: Speci men Type: BLOOD SPECIMEN [facility] Address: [address] [place] [address] Performed By: #### 2 4323-8 #### [facility] CLIA [id number] [address] Nucleated RBC/100 WBC (Bld) [Ratio] 0.0 /100 WBC Normal [facility] Comment on above: Order Comment: Speci men Type: BLOOD SPECIMEN [facility] Address: [address] [place] [address] Performed By: #### 2 4323-8 #### [facility] CLIA [id number] [address] [place] Platelet mean volume (Bld) [Entitic vol] 11.1 fL Normal 9.0-12.7 [facility] Comment on above: Order Comment: Speci men Type: BLOOD SPECIMEN [facility] Address: [address] [place] [address] Performed By: #### 2 4323-8 #### [facility] CLIA [id number] [address] [place] Platelets (Bld) [#/Vol] 223 10*3/uL Normal 150-400 [facility] Comment on above: Order Comment: Katlini galdino Type: BLOOD SPECIMEN [facility] Address: [address] [place] [address] Performed By: #### 2 4323-8 #### [facility] CLIA [id number] [address] OF [facility] RBC (Bld) [#/Vol] 3.60 10*6/uL Low 3.90-5.20 [facility] Comment on above: Order Comment: Speci men Type: BLOOD SPECIMEN [facility] Address: [address] [place] [address] Performed By: #### 2 4323-8 #### [facility] CLIA [id number] [address] WBC (Bld) [#/Vol] 12.18 10*3/uL High 3.70-11.[address] [facility] Comment on above: Order Comment: Katlini galdino Type: BLOOD SPECIMEN [facility] Address: [address] [place] [address] Performed By: #### 2 4323-8 #### [facility] CLIA [id number] [address] Examination level ultrasound on 11-26-2024 [facility] Radiology Study observation (narrative) [facility] Bacteria Ur Culton 5 Bacteria identified Cx [...] , Intermediate >32 , Resistant >64 Abnormal [facility] Comment on above: Performed By: #### 5 0190-8, 2276-4 #### [facility] CLIA [id number] [address] [place] [address] [place] Demario 10-29-2024 DIMITRIOS Telephone (OBGYWM) HILLARY FRAIRE ([id number]) 1990 F Date Time Provider Department 10/29/24 KELLY BALTAZAR During your visit today, we recorded the following information about you: Karina Severino, HAL 10/29/2024 10:35 AM Signed Breast pump order received [place] [address] [place] [address] Way. To SW to sign. HAL Young [...] Encounter Status:Closed by STACI HO on 10/29/24 [facility] Bacteria Ur Culton Bacteria identified Cx Nom [...] , Intermediate >32 , Resistant >64 Abnormal [facility] Comment on above: Performed By: #### 5 0190-8, 2276-4 #### [facility] CLIA [id number] [address] [place] [address] [place] CBC W Auto Differential pane l (Bld)on 10-25-2024 Basophils (Bld) [#/Vol] 10*3/uL Normal <0.11 [facility] Comment on above: Order Comment: Speci men Type: BLOOD SPECIMEN [facility] Address: [address] [place] [address] Performed By: #### 2 4323-8 #### [facility] CLIA [id number] [address] [place] [address] [place] Basophils/100 WBC (Bld) 0.2 % Normal [facility] Comment on above: Order Comment: Speci men Type: BLOOD SPECIMEN [facility] Address: [address] [place] [address] Performed By: #### 2 4323-8 #### [facility] CLIA [id number] [address] Differential cell count method Nom (Bld) Auto Normal [facility] Comment on above: Order Comment: Speci men Type: BLOOD SPECIMEN [facility] Address: [address] [place] [address] Performed By: #### 2 4323-8 #### [facility] CLIA [id number] [address] OF [facility] Eosinophils (Bld) [#/Vol] 0.05 10*3/uL Normal <0.46 [facility] Comment on above: Order Comment: Speci men Type: BLOOD SPECIMEN [facility] Address: [address] [place] [address] Performed By: #### 2 4323-8 #### [facility] CLIA [id number] [address] Eosinophils/100 WBC (Bld) 0.4 % Normal [facility] Comment on above: Order Comment: Speci men Type: BLOOD SPECIMEN [facility] Address: [address] [place] [address] Performed By: #### 2 4323-8 #### [facility] CLIA [id number] [address] [place] Erythrocyte distribution width (RBC) [Ratio] 12.7 % Normal 11.5-15.0 [facility] Comment on above: Order Comment: Speci men Type: BLOOD SPECIMEN [facility] Address: [address] [place] [address] Performed By: #### 2 4323-8 #### [facility] CLIA [id number] [address] Hematocrit (Bld) [Volume fraction] 32.0 % Low 36.0-46.0 [facility] Comment on above: Order Comment: Speci men Type: BLOOD SPECIMEN [facility] Address: [address] [place] [address] Performed By: #### 2 4323-8 #### [facility] CLIA [id number] [address] [place] Hemoglobin (Bld) [Mass/Vol] 10.8 g/dL Low 11.5-15.5 [facility] Comment on above: Order Comment: Speci men Type: BLOOD SPECIMEN [facility] Address: [address] [place] [address] Performed By: #### 2 4323-8 #### [facility] CLIA [id number] 1 [place] [address] [place] Immature granulocytes (Bld) [#/Vol] 0.06 10*3/uL Normal <0.10 [facility] Comment on above: Order Comment: Speci men Type: BLOOD SPECIMEN [facility] Address: [address] [place] [address] Performed By: #### 2 4323-8 #### [facility] CLIA [id number] [address] [place] Immature granulocytes/100 WBC (Bld) 0.5 % Normal [facility] Comment on above: Order Comment: Speci men Type: BLOOD SPECIMEN [facility] Address: [address] [place] [address] Performed By: #### 2 4323-8 #### [facility] CLIA [id number] 1 [place] [address] [place] Lymphocytes (Bld) [#/Vol] 2.11 10*3/uL Normal 1.00-4.00 [facility] Comment on above: Order Comment: Speci men Type: BLOOD SPECIMEN [facility] Address: [address] [place] [address] Performed By: #### 2 4323-8 #### [facility] CLIA [id number] [address] [place] Lymphocytes/100 WBC (Bld) 17.1 % Normal [facility] Comment on above: Order Comment: Speci men Type: BLOOD SPECIMEN [facility] Address: [address] [place] [address] Performed By: #### 2 4323-8 #### [facility] CLIA [id number] [address] MCH (RBC) [Entitic mass] 30.3 pg Normal 26.0-34.0 [facility] Comment on above: Order Comment: Speci men Type: BLOOD SPECIMEN [facility] Address: [address] [place] [address] Performed By: #### 2 4323-8 #### [facility] CLIA [id number] [address] MCHC (RBC) [Mass/Vol] 33.8 g/dL Normal 30.5-36.0 [facility] Comment on above: Order Comment: Speci men Type: BLOOD SPECIMEN [facility] Address: [address] [place] [address] Performed By: #### 2 4323-8 #### [facility] CLIA [id number] [address] MCV (RBC) [Entitic vol] 89.9 fL Normal 80.0-100.0 [facility] Comment on above: Order Comment: Speci men Type: BLOOD SPECIMEN [facility] Address: [address] [place] [address] Performed By: #### 2 4323-8 #### [facility] CLIA [id number] [address] Monocytes (Bld) [#/Vol] 0.59 10*3/uL Normal <0.87 [facility] Comment on above: Order Comment: Speci men Type: BLOOD SPECIMEN [facility] Address: [address] [place] [address] Performed By: #### 2 4323-8 #### [facility] CLIA [id number] [address] Monocytes/100 WBC (Bld) 4.8 % Normal [facility] Comment on above: Order Comment: Speci men Type: BLOOD SPECIMEN [facility] Address: [address] [place] [address] Performed By: #### 2 4323-8 #### [facility] CLIA [id number] [address] [place] Neutrophils (Bld) [#/Vol] 9.50 10*3/uL High 1.45-7.50 [facility] Comment on above: Order Comment: Speci men Type: BLOOD SPECIMEN [facility] Address: [address] [place] [address] Performed By: #### 2 432-8 #### [facility] CLIA [id number] [address] [place] Neutrophils/100 WBC (Bld) 77.0 % Normal [facility] Comment on above: Order Comment: Speci men Type: BLOOD SPECIMEN [facility] Address: [address] [place] [address] Performed By: #### 2 4323-8 #### [facility] CLIA [id number] [address] [place] Nucleated RBC (Bld) [#/Vol] 10*3/uL Normal <0.01 [facility] Comment on above: Order Comment: Speci men Type: BLOOD SPECIMEN [facility] Address: [address] [place] [address] Performed By: #### 2 4323-8 #### [facility] CLIA [id number] [address] [place] Nucleated RBC/100 WBC (Bld) [Ratio] 0.0 /100 WBC Normal [facility] Comment on above: Order Comment: Speci men Type: BLOOD SPECIMEN [facility] Address: [address] [place] [address] Performed By: #### 2 4323-8 #### [facility] CLIA [id number] [address] [place] Platelet mean volume (Bld) [Entitic vol] 11.5 fL Normal 9.0-12.7 [facility] Comment on above: Order Comment: Speci men Type: BLOOD SPECIMEN [facility] Address: [address] [place] [address] Performed By: #### 2 4323-8 #### [facility] CLIA [id number] [address] [place] Platelets (Bld) [#/Vol] 223 10*3/uL Normal 150-400 [facility] Comment on above: Order Comment: Speci men Type: BLOOD SPECIMEN [facility] Address: [address] [place] [address] Performed By: #### 2 4323-8 #### [facility] CLIA [id number] [address] [place] RBC (Bld) [#/Vol] 3.56 10*6/uL Low 3.90-5.20 [facility] Comment on above: Order Comment: Speci men Type: BLOOD SPECIMEN [facility] Address: [address] [place] [address] Performed By: #### 2 4323-8 #### [facility] CLIA [id number] [address] [place] WBC (Bld) [#/Vol] 12.33 10*3/uL High 3.70-11.[address] [facility] Comment on above: Order Comment: Speci men Type: BLOOD SPECIMEN [facility] Address: [address] [place] [address] Performed By: #### 2 4323-8 #### [facility] CLIA [id number] [address] [place] Examination level ultrasound on 10-25-2024 [facility] Radiology Study observation (narrative) [facility] Ferritin SerPl-mCncon 2024 Ferritin [Mass/Vol] 31.2 ng/mL Normal 14.7-205.1 [facility] Comment on above: Order Comment: Speci men Type: BLOOD SPECIMEN [facility] Address: [address] [place] [address] Performed By: #### 5 0190-8, 2275-07 #### [facility] CLIA [id number] [address] [place] [address] [place] GESTATIONAL GLUCOSE SCREEN, 1-HOUR, 50 GRAM, NON-FASTINGon 10-25-2024 Glucose [Mass/Vol] 120 mg/dL Normal 74-134 [facility] Comment on above: Order Comment: Speci men Type: BLOOD SPECIMEN [facility] Address: [address] [place] [address] Result Comment: [facility] Congress of Obstetricians and Gynecologists (Piotr/Primo) guidelines state a gestational diabetes mellitus positive screen is made, in women not previously diagnosed with overt diabetes, when the 1 hr plasma glucose level is equal to or above 140 mg/dL. The [facility] Hydrometer Tester and Women[facility] recommends a 135 mg/dL cutoff. Performed By: #### 2 4323-8 #### [facility] CLIA [id number] [address] [place] [address] [place] Iron and Iron binding capaci ty panelon 10-25-2024 Iron [Mass/Vol] 41 ug/dL Normal 41-186 [facility] Comment on above: Order Comment: Speci men Type: BLOOD SPECIMEN [facility] Address: [address] [place] [address] Performed By: #### 5 0190-8, 2275-07 #### [facility] CLIA [id number] [address] [place], [place] [address] [place] Iron binding capacity [Mass/Vol] 453 ug/dL High 232-386 [facility] Comment on above: Order Comment: Speci men Type: BLOOD SPECIMEN [facility] Address: [address] [place] [address] Performed By: #### 5 0190-8, 2275-07 #### [facility] CLIA [id number] [address] [place] [address] [place] Iron/TIBC [Molar ratio] 9.1 % Low 15.0-57.0 [facility] Comment on above: Order Comment: Speci men Type: BLOOD SPECIMEN [facility] Address: [address] [place] [address] Performed By: #### 5 0190-8, 6-4 #### [facility] CLIA [id number] [address] [place] [address] [place] Reagin and Treponema pallidu m IgG and IgM [Interp]on 10-25-2024 T. pallidum IgG+IgM IA Ql (S) Non-Reactive Normal Nonreactive [facility] Comment on above: Order Comment: Speci men Type: BLOOD SPECIMEN [facility] Address: [address] [place] [address] Performed By: #### 5 0190-8, 2275-4 #### [facility] CLIA [id number] [address] [place] [address] [place] Reagin+T pallidum IgG+IgM Se rPl-Impon 10-25-2024 Reagin and Treponema pallidum IgG and IgM [Interp] Cannot exclude recent Treponemal infection if specimen collected within 7-10 days after appearance of suspect lesions or 2-3 weeks after an exposure. Clinical correlation is required. Normal [facility] Comment on above: Order Comment: Speci men Type: BLOOD SPECIMEN [facility] Address: [address] [place] [address] Performed By: #### 5 0190-8, 6-4 #### [facility] CLIA [id number] [address] [place] [address] [place] Bacteria Ur [...] , Intermediate >32 , Resistant >64 Abnormal [facility] Comment on above: Performed By: #### 5 0190-8, 2276-4 #### [facility] CLIA [id number] [address] [place] [address] [place] Examination level [...] 14 oz EFW by: Hadlock (HC-AC-FL) Extended Nibbler Operator 5.3 mm CM 3.5 mm 6% Nicolaides [...] normal LVOT view: normal 3-vessel view: normal 2-vlsdzm-iljkrfl view: normal Heart / Thorax Situs: situs [...] Read By: Jessica Banerjee M.D. MATERNAL MEDICINE [facility] Bacteria Ur Culton 5 Bacteria identified Cx [...] , Intermediate >32 , Resistant >64 Abnormal [facility] Comment on above: Performed By: #### 5 0190-8, 2276-4 #### [facility] CLIA [id number] [address] [place] [address] [place] Examination level ultrasound on 09-03-2024 Radiology Study observation (narrative) [facility] UA DIP, URINE (POC)on 2024 BILIRUBIN UA (POCT) Negative Negative [facility] CLARITY UA (POCT) Cloudy [facility] COLOR UA (POCT) Dark yellow [facility] GLUCOSE UA (POCT) Negative Negative mg/dL [facility] Hemoglobin Ql (U) Negative Negative [facility] Interpretation and review of laboratory results Abnormal [facility] KETONE UA (POCT) Negative Negative mg/dL [facility] LEUKOCYTES UA (POCT) Trace Abnormal Negative [facility] NITRITE UA (POCT) Positive Abnormal Negative [facility] PH UA (POCT) 7.5 4.5 - 8.0 [facility] Protein Ql (U) Negative Negative mg/dL [facility] SPECIFIC GRAVITY UA (POCT) 1.015 1.005 - 1.030 [facility] UROBILINOGEN UA (POCT) 2 Abnormal Normal E.U./dL [facility] Location:[facility], [address] , [place], [place], [id number] [place] [address] POINT OF CARE [facility] Bacteria Ur Culton 5 Bacteria identified Cx [...] , Intermediate >32 , Resistant >64 Abnormal [facility] Comment on above: Performed By: #### 5 0190-8, 2276-4 #### [facility] CLIA [id number] [address] [place] [address] [place] CNPNon 07-08-2024 CNPN Telephone (OBGYWM) HILLARY FRAIRE ([id number]) 1990 F Date Time Provider Department 07/08/24 [...] Encounter Status:Closed by KELLY BALTAZAR on 07/08/24 [facility] Bacteria Ur Culton Bacteria identified Cx Nom [...] , Intermediate >32 , Resistant >64 Abnormal [facility] Comment on above: Performed By: #### 5 0190-8, 2276-4 #### [facility] CLIA [id number] [address] [place] [address] STATES OF [facility] Examination level ultrasound on 07-05-2024 Indication First trimester anatomic survey Maternal obesity, BMI >35 Impression REMOTE READ The patient is referred for a first trimester anatomy scan including nuchal translucency measurement as clinically indicated. - Single, live, intrauterine . - [place] rump length measurement is consistent with the [...] view: normal 4-chamber view with color: normal 7-xstzef-rriljsy view: normal Abdominal cord insertion: normal Stomach: [...] Read By: Marbella Mcgee M.D. MATERNAL MEDICINE [facility] Radiology Study observation (narrative) [facility] Hepatic function 2000 panelO rdered By: Ashley Lemus on 07-05-2024 Albumin [Mass/Vol] 4.1 g/dL 3.9 - 4.9 g/dL [facility] ALP [Catalytic activity/Vol] 71 U/L 34 - 123 U/L [facility] ALT [Catalytic activity/Vol] 11 U/L 7 - 38 U/L [facility] AST [Catalytic activity/Vol] 8 U/L Low 13 - 35 U/L [facility] Bilirubin [Mass/Vol] 0.4 mg/dL 0.2 - 1.3 mg/dL [facility] Bilirubin.conjugated [Mass/Vol] 0.1 mg/dL [facility] - 0.3 mg/dL [facility] Interpretation and review of laboratory results Abnormal [facility] Protein [Mass/Vol] 7.3 g/dL 6.3 - 8.0 g/dL [facility] Hepatic function 2000 panelo n 07-05-2024 Albumin [Mass/Vol] 4.1 g/dL Normal 3.9-4.9 [facility] Comment on above: Order Comment: Speci men Type: BLOOD SPECIMEN [facility] Address: [address] [place] [address] Performed By: #### 5 0190-8, 2275-4 #### [facility] CLIA [id number] [address] [place] [address] [place] ALP [Catalytic activity/Vol] 71 U/L Normal 34-123 [facility] Comment on above: Order Comment: Speci men Type: BLOOD SPECIMEN [facility] Address: [address] [place] [address] Performed By: #### 5 0190-8, 2275-07 #### [facility] CLIA [id number] [address] [place] [address] [place] ALT [Catalytic activity/Vol] 11 U/L Normal 7-38 [facility] Comment on above: Order Comment: Speci men Type: BLOOD SPECIMEN [facility] Address: [address] [place] [address] Performed By: #### 5 0190-8, 2275-07 #### [facility] CLIA [id number] [address] [place] [address] [place] AST [Catalytic activity/Vol] 8 U/L Low 13-35 [facility] Comment on above: Order Comment: Speci men Type: BLOOD SPECIMEN [facility] Address: [address] [place] [address] Performed By: #### 5 0190-8, 2275- #### [facility] CLIA [id number] [address] [place] [address] [place] Bilirubin [Mass/Vol] 0.4 mg/dL Normal 0.2-1.[address] [facility] Comment on above: Order Comment: Speci men Type: BLOOD SPECIMEN [facility] Address: [address] [place] [address] Performed By: #### 5 0190-8, 2276-4 #### [facility] CLIA [id number] [address] [place] [address] [place] Bilirubin.conjugated [Mass/Vol] 0.1 mg/dL Normal <0.3 [facility] Comment on above: Order Comment: Speci men Type: BLOOD SPECIMEN [facility] Address: [address] [place] [address] Performed By: #### 5 0190-8, 2275-4 #### [facility] CLIA [id number] [address] [place] [address] [place] Protein [Mass/Vol] 7.3 g/dL Normal 6.3-8.0 [facility] Comment on above: Order Comment: Speci men Type: BLOOD SPECIMEN [facility] Address: [address] [place] [address] Performed By: #### 5 0190-8, 2275-4 #### [facility] CLIA [id number] [address] [place] [address] [place] [id number] PLUSon 07-05-2024 Cell-free DNA./Cell-free DNA.total Dosage of chromosome-specific cfDNA (cfDNA) [Molar fraction] 15% Normal [facility] Comment on above: Order Comment: Speci men Type: BLOOD SPECIMEN [facility] Address: [address] [place] [address] Performed By: #### 2 4323-8 #### [facility] CLIA [id number] [address] [place] [address] [place] Chr 13+18+21+X+Y aneuploidy Dosage of chromosome-specific cfDNA Ql (cfDNA) Negative Normal [facility] Comment on above: Order Comment: Speci men Type: BLOOD SPECIMEN [facility] Address: [address] [place] [address] Performed By: #### 2 4323-8 #### [facility] CLIA [id number] [address] Chr 21 trisomy Dosage of chromosome-specific cfDNA Ql (cfDNA) Negative Normal [facility] Comment on above: Order Comment: Speci men Type: BLOOD SPECIMEN [facility] Address: [address] [place] [address] Performed By: #### 2 4323-8 #### [facility] CLIA [id number] [address] Chr X and Y aneuploidy risk Sequencing Ql (cfDNA) [Interp] Not detected Normal [facility] Comment on above: Order Comment: Speci men Type: BLOOD SPECIMEN [facility] Address: [address] [place] [address] Result Comment: Not Detected Not Detected Performed By: #### 2 4323-8 #### [facility] CLIA [id number] [address] Citation Pranav (Reference lab test) Comment Normal [facility] Comment on above: Order Comment: Speci men Type: BLOOD SPECIMEN [facility] Address: [address] [place] [address] Result Comment: 1. P manoj ESCALONA, et al. [place] Med. 2012;14(3):296-305. 2. Benedicto BURNETT, et al. Prenat Diag. 2013;33(6):591-597. 3. Stephen C, et al. Clin Chem. 2015 Apr;61(4):608-616. 4. Keenan ESCALONA et al. [place] Med. 2011;13(11):913-920. 5. ACOG/SM[facility] Practice Bulletin No. 226, Jan 2020. Performed By: #### 2 4323-8 #### [facility] CLIA [id number] [address] Gestational age Estimated from conception date Mariano Normal [facility] Comment on above: Order Comment: Speci men Type: BLOOD SPECIMEN [facility] Address: [address] [place] [address] Performed By: #### 2 4323-8 #### [facility] CLIA [id number] [address] GESTATIONALAGE AGE > OR = 9W Yes Normal [facility] Comment on above: Order Comment: Speci men Type: BLOOD SPECIMEN [facility] Address: [address] [place] [address] Performed By: #### 2 4323-8 #### [facility] CLIA [id number] [address] Laboratory comment Pranav (Report) Comment Normal [facility] Comment on above: Order Comment: Speci men Type: BLOOD SPECIMEN [facility] Address: [address] [place] [address] Result Comment: The MaterniT(R) 21 PLUS laboratory-developed test (LDT) analyzes circulating cell-free DNA from a maternal blood sample. This test is used for screening purposes and not diagnostic. Clinical correlation is recommended. Validation data on twin pregnancies is limited and the ability of this test to detect aneuploidy in higher multiple gestations has not yet been validated. Performed By: #### 2 4323-8 #### [facility] CLIA [id number] [address] enrollment management director name Nom (Provider) Comment Normal [facility] Comment on above: Order Comment: Speci men Type: BLOOD SPECIMEN [facility] Address: [address] [place] [address] Result Comment: This specimen showed an expected representation of chromosome 21, 18 and 13 material. Clinical correlation is suggested. Comment Sav Atwood MD, PhD, Director, [employer] Performed By: #### 2 4323-8 #### [facility] CLIA [id number] [address] [place] [address] [place] LIMITATIONS OF THE TEST Comment Normal [facility] Comment on above: Order Comment: Speci men Type: BLOOD SPECIMEN [facility] Address: [address] [place] [address] Result Comment: Lesly arreguin the results of [...] Fragmin(R)). Performed By: #### 2 4323-8 #### [facility] CLIA [id number] [address] Monosomy X risk Dosage of chromosome-specific cfDNA Ql (Plasma cell-free+WBC DNA) [Interp] Not detected Normal [facility] Comment on above: Order Comment: Anat ahmadi Type: BLOOD SPECIMEN [facility] Address: [address] [place] [address] Performed By: #### 2 4323-8 #### [facility] CLIA [id number] [address] NEGATIVE PREDICTIVE VALUE Note Normal [facility] Comment on above: Order Comment: Anat ahmadi Type: BLOOD SPECIMEN [facility] Address: [address] [place] [address] Result Comment: The Negative Predictive Value (NPV) for trisomy 21, 18, and 13 is greater than 99%. The NPV for SCA and ESS cannot be calculated as SCA and ESS are only reported when an abnormality is detected. Performed By: #### 2 4323-8 #### [facility] CLIA [id number] [address] PERFORMANCE CHARACTERISTICS Note Normal [facility] Comment on above: Order Comment: Anat ahmadi Type: BLOOD SPECIMEN [facility] Address: [address] [place] [address] Result Comment: ! Sex ! Accuracy: 99.4% [...] only. Performed By: #### 2 4323-8 #### [facility] CLIA [id number] [address] POSITIVE PREDICTIVE VALUE N/A Normal [facility] Comment on above: Order Comment: Speci men Type: BLOOD SPECIMEN [facility] Address: [address] [place] [address] Performed By: #### 2 4323-8 #### [facility] CLIA [id number] [address] Reference Lab Test Method Comment Normal [facility] Comment on above: Order Comment: Speci men Type: BLOOD SPECIMEN [facility] Address: [address] [place] [address] Result Comment: See Notes Circulating cell-free DNA [...] 22. Performed By: #### 2 4323-8 #### [facility] CLIA [id number] [address] Service comment (Unsp spec) [Interp] Comment Normal [facility] Comment on above: Order Comment: Speci men Type: BLOOD SPECIMEN [facility] Address: [address] [place] [address] Result Comment: See Notes [employer]. is a subsidiary of [employer], using the brand [employer]. This test was developed and its performance characteristics determined by [employer]. It has not been cleared or approved by the Food and Drug Administration. This laboratory is certified under the Clinical Laboratory Improvement Amendments (CLIA) as qualified to perform high complexity clinical laboratory testing and accredited by the [employer] ([employer]). If there is future clinical need for adding MaterniT GENOME testing, this specimen will be available until term. [facility] samples will not be retained beyond 60 days. [facility] patients will have to send a new sample for re-sequencing ([facility] Test Code: [id number]). Performed By: #### 2 4323-8 #### [facility] CLIA [id number] [address] Sex Dosage of chromosome-specific cfDNA Nom (cfDNA) Comment Normal [facility] Comment on above: Order Comment: Speci men Type: BLOOD SPECIMEN [facility] Address: [address] [place] [address] Result Comment: Cons istent with Female Performed By: #### 2 4323-8 #### [facility] CLIA [id number] [address] [place] [address] Test performance information Pranav (Unsp spec) Comment Normal [facility] Comment on above: Order Comment: Speci men Type: BLOOD SPECIMEN [facility] Address: [address] [place] [address] Result Comment: The performance characteristics of the MaterniT(R) 21 PLUS laboratory-developed test (LDT) have been determined in a clinical validation study with women at increased risk for chromosomal aneuploidy.[1-4] Performed By: #### 2 4323-8 #### [facility] CLIA [id number] [address] [place] [address] Trisomy 13 risk Dosage of chromosome-specific cfDNA Ql (cfDNA) [Interp] Negative Normal [facility] Comment on above: Order Comment: Speci men Type: BLOOD SPECIMEN [facility] Address: [address] [place] [address] Performed By: #### 2 4323-8 #### [facility] CLIA [id number] [address] [place] [address] Trisomy 18 risk Dosage of chromosome-specific cfDNA Ql (Plasma cell-free+WBC DNA) [Interp] Negative Normal [facility] Comment on above: Order Comment: Speci men Type: BLOOD SPECIMEN [facility] Address: [address] [place] [address] Performed By: #### 2 4323-8 #### [id number] [address] [place] [address] [place] Bacteria Ur [...] , Intermediate >32 , Resistant >64 Abnormal [facility] Comment on above: Performed By: #### 5 0190-8, 2275-4 #### [facility] CLIA [id number] [address] [place] [address] OF [place] C. trachomatis+N. gonorrhoea e DNA KEVIN+probe Ql (Unsp spec)on 06-07-2024 C. trachomatis rRNA KEVIN+probe Ql (Unsp spec) Not detected Normal Not detected [facility] Comment on above: Order Comment: Speci men Type: BLOOD SPECIMEN [facility] Address: [address] [place] [address] Performed By: #### 5 0190-8, 2275-4 #### [facility] CLIA [id number] [address] [place] [address] OF [place] N. gonorrhoeae rRNA KEVIN+probe Ql (Unsp spec) Not detected Normal Not detected [facility] Comment on above: Order Comment: Speci men Type: BLOOD SPECIMEN [facility] Address: [address] [place] [address] Performed By: #### 5 0190-8, 2275-4 #### [facility] CLIA [id number] [address] [place] [address] [place] CBC W Auto Differential pane l (Bld)on 06-07-2024 Basophils (Bld) [#/Vol] 10*3/uL Normal <0.11 [facility] Comment on above: Order Comment: Speci men Type: BLOOD SPECIMEN [facility] Address: [address] [place] [address] Performed By: #### 5 0190-8, 2275-07 #### [facility] CLIA [id number] [address] [place] [address] [place] Basophils/100 WBC (Bld) 0.2 % Normal [facility] Comment on above: Order Comment: Speci men Type: BLOOD SPECIMEN [facility] Address: [address] [place] [address] Performed By: #### 5 0190-8, 2275-07 #### [facility] CLIA [id number] [address] [place] [address] [place] Differential cell count method Nom (Bld) Auto Normal [facility] Comment on above: Order Comment: Speci men Type: BLOOD SPECIMEN [facility] Address: [address] [place] [address] Performed By: #### 5 0190-8, 2275-07 #### [facility] CLIA [id number] [address] [place] [address] [place] Eosinophils (Bld) [#/Vol] 0.08 10*3/uL Normal <0.46 [facility] Comment on above: Order Comment: Speci men Type: BLOOD SPECIMEN [facility] Address: [address] [place] [address] Performed By: #### 5 0190-8, 2275-07 #### [facility] CLIA [id number] [address] [place] [address] [place] Eosinophils/100 WBC (Bld) 0.8 % Normal [facility] Comment on above: Order Comment: Speci men Type: BLOOD SPECIMEN [facility] Address: [address] [place] [address] Performed By: #### 5 0190-8, 2275-07 #### [facility] CLIA [id number] [address] [place] [address] [place] Erythrocyte distribution width (RBC) [Ratio] 12.6 % Normal 11.5-15.0 [facility] Comment on above: Order Comment: Speci men Type: BLOOD SPECIMEN [facility] Address: [address] [place] [address] Performed By: #### 5 0190-8, 2275-4 #### [facility] CLIA [id number] [address] [place] [address] [place] Hematocrit (Bld) [Volume fraction] 36.1 % Normal 36.0-46.0 [facility] Comment on above: Order Comment: Speci men Type: BLOOD SPECIMEN [facility] Address: [address] [place] [address] Performed By: #### 5 0190-8, 4 #### [facility] CLIA [id number] [address] [place] [address] [place] Hemoglobin (Bld) [Mass/Vol] 12.0 g/dL Normal 11.5-15.5 [facility] Comment on above: Order Comment: Speci men Type: BLOOD SPECIMEN [facility] Address: [address] [place] [address] Performed By: #### 5 0190-8, 4 #### [facility] CLIA [id number] [address] [place] [address] [place] Immature granulocytes (Bld) [#/Vol] 0.04 10*3/uL Normal <0.10 [facility] Comment on above: Order Comment: Speci men Type: BLOOD SPECIMEN [facility] Address: [address] [place] [address] Performed By: #### 5 0190-8, 2275-07 #### [facility] CLIA [id number] [address] [place] [address] [place] Immature granulocytes/100 WBC (Bld) 0.4 % Normal [facility] Comment on above: Order Comment: Speci men Type: BLOOD SPECIMEN [facility] Address: [address] [place] [address] Performed By: #### 5 0190-8, 2275-4 #### [facility] CLIA [id number] [address] [place] [address] [place] Lymphocytes (Bld) [#/Vol] 2.76 10*3/uL Normal 1.00-4.00 [facility] Comment on above: Order Comment: Speci men Type: BLOOD SPECIMEN [facility] Address: [address] [place] [address] Performed By: #### 5 0190-8, 4 #### [facility] CLIA [id number] [address] [place] [address] [place] Lymphocytes/100 WBC (Bld) 26.6 % Normal [facility] Comment on above: Order Comment: Speci men Type: BLOOD SPECIMEN [facility] Address: [address] [place] [address] Performed By: #### 5 0190-8, 2275-07 #### [facility] CLIA [id number] [address] [place] [address] [place] MCH (RBC) [Entitic mass] 29.3 pg Normal 26.0-34.0 [facility] Comment on above: Order Comment: Speci men Type: BLOOD SPECIMEN [facility] Address: [address] [place] [address] Performed By: #### 5 0190-8, 2275-4 #### [facility] CLIA [id number] [address] [place] [address] [place] MCHC (RBC) [Mass/Vol] 33.2 g/dL Normal 30.5-36.0 [facility] Comment on above: Order Comment: Speci men Type: BLOOD SPECIMEN [facility] Address: [address] [place] [address] Performed By: #### 5 0190-8, 2275-4 #### [facility] CLIA [id number] [address] [place] [address] [place] MCV (RBC) [Entitic vol] 88.0 fL Normal 80.0-100.0 [facility] Comment on above: Order Comment: Speci men Type: BLOOD SPECIMEN [facility] Address: [address] [place] [address] Performed By: #### 5 0190-8, 2275-07 #### [facility] CLIA [id number] [address] [place] [address] [place] Monocytes (Bld) [#/Vol] 0.55 10*3/uL Normal <0.87 [facility] Comment on above: Order Comment: Speci men Type: BLOOD SPECIMEN [facility]ing Facility: [facility] Address: [address] [place] [address] Performed By: #### 5 0190-8, 2275-07 #### [facility] CLIA [id number] [address] [place] [address] [place] Monocytes/100 WBC (Bld) 5.3 % Normal [facility] Comment on above: Order Comment: Speci men Type: BLOOD SPECIMEN [facility] Address: [address] [place] [address] Performed By: #### 5 0190-8, 2275-07 #### [facility] CLIA [id number] [address] [place] [address] [place] Neutrophils (Bld) [#/Vol] 6.91 10*3/uL Normal 1.45-7.50 [facility] Comment on above: Order Comment: Speci men Type: BLOOD SPECIMEN [facility] Address: [address] [place] [address] Performed By: #### 5 0190-8, 2275-07 #### [facility] CLIA [id number] [address] [place] [address] [place] Neutrophils/100 WBC (Bld) 66.7 % Normal [facility] Comment on above: Order Comment: Speci men Type: BLOOD SPECIMEN [facility] Address: [address] [place] [address] Performed By: #### 5 0190-8, 2275-4 #### [facility] CLIA [id number] [address] [place] [address] [place] Nucleated RBC (Bld) [#/Vol] 10*3/uL Normal <0.01 [facility] Comment on above: Order Comment: Speci men Type: BLOOD SPECIMEN [facility] Address: [address] [place] [address] Performed By: #### 5 0190-8, 2275-07 #### [facility] CLIA [id number] [address] [place] [address] [place] Nucleated RBC/100 WBC (Bld) [Ratio] 0.0 /100 WBC Normal [facility] Comment on above: Order Comment: Speci men Type: BLOOD SPECIMEN [facility] Address: [address] [place] [address] Performed By: #### 5 0190-8, 2275-07 #### [facility] CLIA [id number] [address] [place] [address] [place] Platelet mean volume (Bld) [Entitic vol] 11.3 fL Normal 9.0-12.7 [facility] Comment on above: Order Comment: Speci men Type: BLOOD SPECIMEN [facility] Address: [address] [place] [address] Performed By: #### 5 0190-8, 2275- #### [facility] CLIA [id number] [address] [place] [id number] [address] [place] Platelets (Bld) [#/Vol] 246 10*3/uL Normal 150-400 [facility] Comment on above: Order Comment: Speci men Type: BLOOD SPECIMEN [facility] Address: [address] [place] [address] Performed By: #### 5 0190-8, 2276-4 #### [facility] CLIA [id number] [address] [place] [address] [place] RBC (Bld) [#/Vol] 4.10 10*6/uL Normal 3.90-5.20 [facility] Comment on above: Order Comment: Speci men Type: BLOOD SPECIMEN [facility] Address: [address] [place] [address] Performed By: #### 5 0190-8, 6-4 #### [facility] CLIA [id number] [address] [place] [address] [place] WBC (Bld) [#/Vol] 10.36 10*3/uL Normal 3.70-11.[address] [facility] Comment on above: Order Comment: Speci men Type: BLOOD SPECIMEN [facility] Address: [address] [place] [address] Performed By: #### 5 0190-8, 6-4 #### [facility] CLIA [id number] [address] [place] [address] [place] Comprehensive metabolic 2000 panelon 06-07-2024 Albumin [Mass/Vol] 4.1 g/dL Normal 3.9-4.9 [facility] Comment on above: Order Comment: Speci men Type: BLOOD SPECIMEN [facility] Address: [address] [place] [address] Performed By: #### 2 4323-8 #### [facility] CLIA [id number] [address] [place] [address] [place] ALP [Catalytic activity/Vol] 70 U/L Normal 34-123 [facility] Comment on above: Order Comment: Speci men Type: BLOOD SPECIMEN [facility] Address: [address] [place] [address] Performed By: #### 2 4323-8 #### [facility] CLIA [id number] [address] [place] ALT With P-5'-P [Catalytic activity/Vol] 56 U/L High 7-38 [facility] Comment on above: Order Comment: Speci men Type: BLOOD SPECIMEN [facility] Address: [address] [place] [address] Performed By: #### 2 4323-8 #### [facility] CLIA [id number] [address] [place] Anion gap [Moles/Vol] 10 mmol/L Normal 8-15 [facility] Comment on above: Order Comment: Speci men Type: BLOOD SPECIMEN [facility] Address: [address] [place] [address] Performed By: #### 2 4323-8 #### [facility] CLIA [id number] [address] [place] AST With P-5'-P [Catalytic activity/Vol] 30 U/L Normal 13-35 [facility] Comment on above: Order Comment: Speci men Type: BLOOD SPECIMEN [facility] Address: [address] [place] [address] Performed By: #### 2 4323-8 #### [facility] CLIA [id number] [address] [place] [address] [place] Bilirubin [Mass/Vol] 0.4 mg/dL Normal 0.2-1.[address] [facility] Comment on above: Order Comment: Speci men Type: BLOOD SPECIMEN [facility] Address: [address] [place] [address] Performed By: #### 2 4323-8 #### [facility] CLIA [id number] [address] [place] [address] [place] Calcium [Mass/Vol] 9.2 mg/dL Normal 8.5-10.2 [facility] Comment on above: Order Comment: Speci men Type: BLOOD SPECIMEN [facility] Address: [address] [place] [address] Performed By: #### 2 4323-8 #### [facility] CLIA [id number] [address] [place] [address] [place] Chloride [Moles/Vol] 101 mmol/L Normal 98-[address] [facility] Comment on above: Order Comment: Speci men Type: BLOOD SPECIMEN [facility] Address: [address] [place] [address] Performed By: #### 2 4323-8 #### [facility] CLIA [id number] 1 [place] [address] [place] CO2 [Moles/Vol] 23 mmol/L Normal 22-30 [facility] Comment on above: Order Comment: Speci men Type: BLOOD SPECIMEN [facility] Address: [address] [place] [address] Performed By: #### 2 4323-8 #### [facility] CLIA [id number] [address] [place] [address] [place] Creatinine [Mass/Vol] 0.79 mg/dL Normal 0.58-0.96 [facility] Comment on above: Order Comment: Speci men Type: BLOOD SPECIMEN [facility] Address: [address] [place] [address] Performed By: #### 2 4323-8 #### [facility] CLIA [id number] [address] [place] [address] [place] Creatinine and Glomerular filtration rate.predicted panel (S/P/Bld) 101 mL/min/1.73m??? Normal >=60 [facility] Comment on above: Order Comment: Speci men Type: BLOOD SPECIMEN [facility] Address: [address] [place] [address] Result Comment: Jelly mated Glomerular Filtration Rate [...] 2 4323-8 #### [facility] CLIA [id number] 1 [place] [address] [place] Glucose [Mass/Vol] 114 mg/dL High 74-99 [facility] Comment on above: Order Comment: Speci men Type: BLOOD SPECIMEN [facility] Address: [address] [place] [address] Result Comment: The [place] Diabetes Association (ADA) provides guidance for cutoff [...] Standards of Medical Care in Diabetes 2016, [place] Diabetes Association. Diabetes Care. 2016.39(Suppl 1). Performed By: #### 2 4323-8 #### [facility] CLIA [id number] [address] [place] [address] [place] Potassium [Moles/Vol] 3.9 mmol/L Normal 3.7-5.1 [facility] Comment on above: Order Comment: Speci men Type: BLOOD SPECIMEN [facility] Address: [address] [id number] Performed By: #### 2 4323-8 #### [facility] CLIA [id number] 1 [place] [address] [place] Protein [Mass/Vol] 7.2 g/dL Normal 6.3-8.0 [facility] Comment on above: Order Comment: Speci men Type: BLOOD SPECIMEN [facility] Address: [address] [place] [address] Performed By: #### 2 4323-8 #### [facility] CLIA [id number] [address] [place] Sodium [Moles/Vol] 134 mmol/L Low 136-144 [facility] Comment on above: Order Comment: Katlini men Type: BLOOD SPECIMEN [facility] Address: [address] [place] [address] Performed By: #### 2 4323-8 #### [facility] CLIA [id number] 1 [place] [address] [place] Urea nitrogen [Mass/Vol] 14 mg/dL Normal 7-21 [facility] Comment on above: Order Comment: Anat men Type: BLOOD SPECIMEN [facility] Address: [address] [place] [address] Performed By: #### 2 4323-8 #### [facility] CLIA [id number] [address] [place] [address] [place] HBV surface Ag Ser Qlon - HBV surface Ag Ql (S) Negative Normal Negative [facility] Comment on above: Order Comment: Anat galdino Type: BLOOD SPECIMEN [facility] Address: [address] [place] [address] Performed By: #### 5 0190-8, 2276-4 #### [facility] CLIA [id number] [address] [place] [address] [place] HCV Ab Ser Qlon 06-07-2024 HCV Ab Ql (S) Negative Normal Negative [facility] Comment on above: Order Comment: Katlini men Type: BLOOD SPECIMEN [facility] Address: [address] [place] [address] Result Comment: The result suggests no evidence of active infection with Hepatitis C virus. Should recent infection be suspected, repeat testing may be considered 4-6 weeks after this draw. Performed By: #### 5 0190-8, 2276-4 #### [facility] CLIA [id number] [address] [place] [address] [place] HIGH RISK HUMAN PAPILLOMA RICKY (HPV), PCR FOR DETECTION AND GENOTYPINGon 06-07-2024 HPV 16 Ag Ql (Unsp spec) Not detected Normal Not detected [facility] Comment on above: Order Comment: Speci men Type: BLOOD SPECIMEN [facility] Address: [address] [place] [address] Performed By: #### 2 4323-8 #### [facility] CLIA [id number] [address] [place] [address] [place] HPV 18 Ag Ql (Unsp spec) Not detected Normal Not detected [facility] Comment on above: Order Comment: Speci men Type: BLOOD SPECIMEN [facility] Address: [address] [place] [address] Performed By: #### 2 4323-8 #### [place] [facility] CLIA [id number] [address] [place] [address] [place] HPV 31+33+35+39+45+51+52 +56+58+59+66+68 DNA KEVIN+probe Ql (Cvx) Not detected Normal Not detected [facility] Comment on above: Order Comment: Speci men Type: BLOOD SPECIMEN [facility] Address: [address] [place] [address] Result Comment: High Risk HPV Other Type includes HPV types 31, 33, 35, 39, 45, 51, 52, 56, 58, 59, 66 and 68. Performed By: #### 2 4323-8 #### [place] [facility] CLIA [id number] 1 [place] [address] [place] HIV 1+2 Ab IA Qlon HIV 1 and 2 Ab IA.rapid Nom (S/P/Bld) Normal [facility] Comment on above: Order Comment: Speci men Type: BLOOD SPECIMEN [facility] Address: [address] [place] [address] Result Comment: Test not indicated. Performed By: #### 5 0190-8, 6-4 #### [facility] CLIA [id number] [address] [place] [address] [place] HIV 1+2 Ab+HIV1 p24 Ag IA Ql Non-Reactive Normal Nonreactive [facility] Comment on above: Order Comment: Speci men Type: BLOOD SPECIMEN [facility] Address: [address] [place] [address] Performed By: #### 5 0190-8, 2275-4 #### [facility] CLIA [id number] [address] [place] [address] OF [facility] HIV immunoassay testing algorithm interpretation (S/P/Bld) [Interp] Normal [facility] Comment on above: Order Comment: Speci men Type: BLOOD SPECIMEN [facility] Address: [address] [place] [address] Result Comment: No e vidence of HIV-1 or HIV-2 infection. Should recent infection be suspected, repeat testing may be considered 2-3 weeks after this draw. [place] Rev. Code 3701.243(E): This information has been [...] Performed By: #### 5 0190-8, 2275-4 #### [facility] CLIA [id number] [address] [place] [address] [place] HbA1c (Bld)on 06-07-2024 Average glucose Estimated from glycated hemoglobin (Bld) [Mass/Vol] 97 mg/dL Normal [facility] Comment on above: Order Comment: Speci men Type: BLOOD SPECIMEN [facility] Address: [address] [place] [address] Result Comment: eAG: (Estimated average glucose) is a calculated value from HgbA1c and is agency service representative of the average blood glucose level in the last 2-3 month period. Performed By: #### 5 5454-3 #### [facility] CLIA [id number] [address] [place] [address] STATES OF [facility] HbA1c (Bld) [Mass fraction] 5.0 % Normal 4.3-5.6 [facility] Comment on above: Order Comment: Speci men Type: BLOOD SPECIMEN [facility] Address: [address] [place] [address] Result Comment: [place] Diabetes Association guidelines indicate that patients with HgbA1c in the range 5.7-6.4% are at increased risk for development of diabetes, and intervention by lifestyle modification may be beneficial. HgbA1c greater or equal to 6.5% is considered diagnostic of diabetes. Performed By: #### 5 5454-3 #### [facility] CLIA [id number] [address] [place] [address] OF [place] PAP TESTon 06-07-2024 ADEQUACY Normal [facility] Comment on above: Order Comment: Speci men Type: FLUID SPECIMEN [facility] Address: [address] [place] [address] Result Comment: Sati sfactory for interpretation. Transformation zone present Performed By: #### L [id number] #### [facility] CLIA [id number] [address] [place] [address] [place] CASE REPORT Normal [facility] Comment on above: Order Comment: Speci men Type: FLUID SPECIMEN [facility] Address: [address] [place] [address] Result Comment: Gyne cologic Cytology Report Case: [id number] Authorizing Provider: Leanne Aquino APRN.APPAREL DESIGNER Collected: 06/07/2024 03:39 PM Ordering Location: OB/Gynecology Received: 06/07/2024 04:52 PM First Screen: Alesia, [place], [place], ASCP Specimen: Pap Test, ThinPrep, Cervix Performed By: #### L [id number] #### [facility] CLIA [id number] [address] [place], [place] [address] [place] CLINICAL HISTORY, CYTOLOGY, GOLF COURSE STARTER Routine Exam Normal [facility] Comment on above: Order Comment: Speci men Type: FLUID SPECIMEN [facility] Address: [address] [place] [address] Performed By: #### L [id number] #### [facility] CLIA [id number] [address] [place] [address] [place] FINAL PERFORMING LAB Normal [facility] Comment on above: Order Comment: Speci men Type: FLUID SPECIMEN [facility] Address: [address] [place] [address] Result Comment: Tech nical component, digital retoucher screening performed at [facility], [address] [place] [address] [place] [address] CLIA# [id number] Diagnostic interpretation performed at [facility], [address] [place] [address] [place] [address] CLIA# [id number] Signal Fitter: Alvarez Vargas M.D. Performed By: #### L [id number] #### [facility] CLIA [id number] [address] [place], [place] [address] [place] INTERPRETATION, CYTOLOGY, GOLF COURSE STARTER Normal [facility] Comment on above: Order Comment: Speci men Type: FLUID SPECIMEN [facility] Address: [address] [place] [address] Result Comment: Nega tive for intraepithelial lesion or malignancy. at 1429 EDT Performed By: #### L [id number] #### [facility] CLIA [id number] [address] [place], [place] [address] [place] LMP 04/09/2024 Normal [facility] Comment on above: Order Comment: Speci men Type: FLUID SPECIMEN [facility] Address: [address] [place] [address] Performed By: #### L [id number] #### [facility] CLIA [id number] [address] [place] [address] STATES [facility] PAP DISCLAIMER COMMENT The Pap Smear is a screening test for cervical cancer. False negative results occur with all screening tests, emphasizing the need for rescreening at recommended intervals, and clinical correlation. Normal [facility] Comment on above: Order Comment: Speci men Type: FLUID SPECIMEN [facility] Address: [address] [place] [address] Performed By: #### L [id number] #### [facility] CLIA [id number] [address] [place] [address] [place] PAP STEAM PLANT CONTROL ROOM OPERATOR COMMENT This specimen has be en analyzed by the ThinPrep Imaging System, an automated imaging and review system, which assists the laboratory in evaluating cells on ThinPrep Pap tests. Following automated imaging, selected doherty from every slide are reviewed by a digital retoucher. Normal [facility] Comment on above: Order Comment: Speci men Type: FLUID SPECIMEN [facility] Address: [address] [place] [address] Performed By: #### L [id number] #### [facility] CLIA [id number] [address] [place] [address] [place] POC MACHINE LACER ULTRASOUNDon 06-08-19 Indication Confirmation of intrauterine . [...] Read By: Leanne Aquino CNP MATERNAL MEDICINE [facility] Radiology Study observation (narrative) [facility] Prot/Creat Uron 06-07-2024 Protein/Creatinine (U) [Mass ratio] 0.06 mg/mg Normal <0.15 [facility] Comment on above: Order Comment: Speci men Type: BLOOD SPECIMEN [facility] Address: [address] [place] [address] Result Comment: Adul t Proteinuria Categories: <0.15 mg/mg is considered normal to mildly increased 0.15 - 0.50 mg/mg is considered moderately increased >0.50 mg/mg is considered severely increased KDIGO. (2013). KDIGO 2012 Clinical Practice Guideline for the Evaluation and Management of Chronic Kidney Disease. Official Journal of the International Society of Nephrology, 3(1), 1-150. Performed By: #### 2 4323-8 #### [facility] CLIA [id number] [address] [place] [address] [place] Protein/Creatinine (U) [Mass ratio]on 06-07-2024 Creatinine (U) [Mass/Vol] 155.0 mg/dL Normal 42.2-237.9 [facility] Comment on above: Order Comment: Speci men Type: BLOOD SPECIMEN [facility] Address: [address] [place] [address] Performed By: #### 2 4323-8 #### [facility] CLIA [id number] [address] [place] [address] [place] Protein (U) [Mass/Vol] 10 mg/dL Normal 0-20 [facility] Comment on above: Order Comment: Anat ahmadi Type: BLOOD SPECIMEN [facility] Address: [address] [place] [address] Performed By: #### 2 4323-8 #### [facility] CLIA [id number] [address] [place], [place] [address] [place] RUBELLA IGG ANTIBODYon 06-07 RUBELLA IGG AB, QUAL Positive Normal Positive [facility] Comment on above: Order Comment: Anat galdino Type: BLOOD SPECIMEN [facility] Address: [address] [place] [address] Result Comment: The result suggests recent or past exposure to Rubella virus or history of Rubella vaccination. Positive result may also be seen due to presence of passively-transferred antibodies. Please correlate with patient's history. Performed By: #### 5 0190-8, 2276-4 #### [facility] CLIA [id number] [address] [place] [address] [place] Reagin and Treponema pallidu m IgG and IgM [Interp]on 06-07-2024 T. pallidum IgG+IgM IA Ql (S) Non-Reactive Normal Nonreactive [facility] Comment on above: Order Comment: Anat galdino Type: BLOOD SPECIMEN [facility] Address: [address] [place] [address] Performed By: #### 5 0190-8, 2276-4 #### [facility] CLIA [id number] [address] [place] [address] [place] Reagin+T pallidum IgG+IgM Se rPl-Impon 06-07-2024 Reagin and Treponema pallidum IgG and IgM [Interp] Cannot exclude recent Treponemal infection if specimen collected within 7-10 days after appearance of suspect lesions or 2-3 weeks after an exposure. Clinical correlation is required. Normal [facility] Comment on above: Order Comment: Anat galdino Type: BLOOD SPECIMEN [facility] Address: [address] [place] [address] Performed By: #### 5 0190-8, 2276-4 #### [facility] CLIA [id number] [address] [place] [address] [place] TRICHOMONAS VAGINALIS NAATon 06-07-2024 T. vaginalis DNA KEVIN+probe Ql (Unsp spec) Not detected Normal Not detected [facility] Comment on above: Order Comment: Speci men Type: BLOOD SPECIMEN [facility] Address: [address] [place] [address] Performed By: #### 5 0190-8, 2276-4 #### [facility] CLIA [id number] [address] [place] [address] [place] TYPE + SCREEN PRENATALon ABO A Normal [facility] Comment on above: Order Comment: Speci men Type: BLOOD SPECIMEN [facility] Address: [address] [place] [address] Performed By: #### T SPN #### [facility] CLIA [id number] [address] [place] [address] [place] Rh Nom (Bld) Positive Normal [facility] Comment on above: Order Comment: Speci men Type: BLOOD SPECIMEN [facility] Address: [address] [place] [address] Performed By: #### T SPN #### [facility] CLIA [id number] [address] [place] [address] [place] TYPE AND SCREEN EXPIRATION 06/10/2024 23:59 Normal [facility] Comment on above: Order Comment: Speci men Type: BLOOD SPECIMEN Ordering Facility: [facility] Address: [address] [place] [address] Performed By: #### T SPN #### [facility] CLIA [id number] [address] [place] [address] [place] CNOVon 05-24-2024 CNOV Office Visit (OBGYWM ) KEKEHILLARY ANDERSON ([id number]) 1990 F Date Time Provider Department 05/24/24 [...] Living1 SAB0 IAB0 Ectopic0 Multiple0 Live 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 As applicable, any other physician, advance practice provider, medical student, or other health professional student that will be observing or involved in the sensitive examination for educational or training purposes was discussed with the Patient or Authorized Cage Operator. The Patient or Authorized Cage Operator has agreed to proceed with the sensitive [...] be more appropriately called evening sickness or wuczo-ubkxax-he-the-da y sickness. While there are the paulino [...] than expected (more content not included)... Normal [facility] UA DIP,URINE HCG (POC)on Beta HCG ( test) Ql (U) Positive Abnormal Negative [facility] Comment on above: Location:[facility], [address], [place], [address] Interpretation and review of laboratory results Abnormal [facility] Tire Fixer (POCT) Internal QC OK [facility] Location:[facility], [address], [place], [place], [address] [place] [address] POINT OF CARE [facility] CBC W Auto Differential pane l (Bld)on 02-11-2022 Basophils (Bld) [#/Vol] 0.04 10*3/uL <0.11 k/uL [facility] Basophils/100 WBC (Bld) 0.5 % [facility] Differential cell count method Nom (Bld) Auto [facility] Eosinophils (Bld) [#/Vol] 0.13 10*3/uL <0.46 k/uL [facility] Eosinophils/100 WBC (Bld) 1.5 % [facility] Erythrocyte distribution width (RBC) [Ratio] 12.7 % 11.5 - 15.0 % [facility] Hematocrit (Bld) [Volume fraction] 41.0 % 36.0 - 46.0 % [facility] Hemoglobin (Bld) [Mass/Vol] 13.6 g/dL 11.5 - 15.5 g/dL [facility] Immature granulocytes (Bld) [#/Vol] <0.10 k/uL [facility] Immature granulocytes/100 WBC (Bld) 0.1 % [facility] Lymphocytes (Bld) [#/Vol] 2.58 10*3/uL 1.00 - 4.00 k/uL [facility] Lymphocytes/100 WBC (Bld) 30.6 % [facility] MCH (RBC) [Entitic mass] 29.5 pg 26.0 - 34.0 pg [facility] MCHC (RBC) [Mass/Vol] 33.2 g/dL 30.5 - 36.0 g/dL [facility] MCV (RBC) [Entitic vol] 88.9 fL 80.0 - 100.0 fL [facility] Monocytes (Bld) [#/Vol] 0.61 10*3/uL <0.87 k/uL [facility] Monocytes/100 WBC (Bld) 7.2 % [facility] Neutrophils (Bld) [#/Vol] 5.06 10*3/uL 1.45 - 7.50 k/uL [facility] Neutrophils/100 WBC (Bld) 60.1 % [facility] Nucleated RBC (Bld) [#/Vol] <0.01 k/uL [facility] Nucleated RBC/100 WBC (Bld) [Ratio] 0.0 /100 WBC [facility] Platelet mean volume (Bld) [Entitic vol] 10.9 fL 9.0 - 12.7 fL [facility] Platelets (Bld) [#/Vol] 285 10*3/uL 150 - 400 k/uL [facility] RBC (Bld) [#/Vol] 4.61 10*6/uL 3.90 - 5.2 0 m/uL [facility] WBC (Bld) [#/Vol] 8.43 10*3/uL 3.70 - 11. 00 k/uL [facility] CBC-Complete Blood Cnt No Di ffon 01-12-2021 Erythrocyte distribution width (RBC) [Ratio] 13.2 % Normal 11.6-14.6 [facility] Comment on above: Performed By: #### L 501.1400, L100.0500 #### [facility] [address] [place], [address] Hematocrit (Bld) [Volume fraction] 30.6 % Low 37-47 [facility] Comment on above: Performed By: #### L 501.1400, L100.0500 #### [facility] [address] [place], [address] Hemoglobin (Bld) [Mass/Vol] 9.8 g/dL Low 12.0-15.0 [facility] Comment on above: Performed By: #### L 501.1400, L100.0500 #### [facility] [address] [place], [address] MCH (RBC) [Entitic mass] 30.3 pg Normal 27.0-32.0 [facility] Comment on above: Performed By: #### L 501.1400, L100.0500 #### [facility] [address] [place], [address] MCHC (RBC) [Mass/Vol] 32.0 g/dL Normal 32-36 [facility] Comment on above: Performed By: #### L 501.1400, L100.0500 #### [facility] [address] [place], [address] MCV (RBC) [Entitic vol] 94.7 fL Normal 81-99 [facility] Comment on above: Performed By: #### L 501.1400, L100.0500 #### [facility] [address] [place], [address] Platelet mean volume (Bld) [Entitic vol] 11.6 fL Normal 6.2-12.0 [facility] Comment on above: Performed By: #### L 501.1400, L100.0500 #### [facility] [address] [place], [address] Platelets (Bld) [#/Vol] 177 10*3/uL Normal 150-450 [facility] Comment on above: Performed By: #### L 501.1400, L100.0500 #### [facility] [address] [place], [address] RBC (Bld) [#/Vol] 3.23 10*6/uL Low 4.2-5.4 [facility] Comment on above: Performed By: #### L 501.1400, L100.0500 #### [facility] [address] [place], [address] RDW SD 45.5 fl High 35.1-43.9 [facility] Comment on above: Performed By: #### L 501.1400, L100.0500 #### [facility] [address] [place], [address] WBC (Bld) [#/Vol] 13.4 10*3/uL High 4.4-11.0 [facility] Comment on above: Performed By: #### L 501.1400, L100.0500 #### [facility] [address] [place], [address] Comprehensive Metabolic Prof ilon 01-12-2021 Albumin [Mass/Vol] 2.2 g/dL Low 3.2-5.0 [facility] Comment on above: Performed By: #### L 500.4050 #### [facility] [address] [place], [address] Albumin/Globulin [Mass ratio] 0.5 {ratio} Low 0.9-2.4 [facility] Comment on above: Performed By: #### L 500.4050 #### [facility] [address] [place], [address] ALK P 96 U/L Normal 45-117 [facility] Comment on above: Performed By: #### L 500.4050 #### [facility] [address] [place], [address] ALT [Catalytic activity/Vol] 20 U/L Normal 13-56 [facility] Comment on above: Performed By: #### L 500.4050 #### [facility] [address] [place], [address] AST [Catalytic activity/Vol] 20 U/L Normal 15-37 [facility] Comment on above: Performed By: #### L 500.4050 #### [facility] [address] [place], [address] Bilirubin [Mass/Vol] 0.60 mg/dL Normal 0.20-1.00 [facility] Comment on above: Result Comment: For patients on eltrombopag therapy, use of Dimension Perkins TBIL is not recommended. Performed By: #### L 500.4050 #### [facility] [address] [place], [address] BUN/CRE 14.5 RATIO Normal 10-20 [facility] Comment on above: Performed By: #### L 500.4050 #### [facility] [address] [place], [address] CA,Total 8.0 mg/dL Low 8.5-10.1 [facility] Comment on above: Performed By: #### L 500.4050 #### [facility] [address] [place], [address] Chloride [Moles/Vol] 108 mmol/L High 98-107 [facility] Comment on above: Performed By: #### L 500.4050 #### [facility] [address] [place], [address] CO2 [Moles/Vol] 26.0 mmol/L Normal 21.0-32.0 [facility] Comment on above: Performed By: #### L 500.4050 #### [facility] [address] [place], [address] Creatinine [Mass/Vol] 0.83 mg/dL Normal 0.55-1.02 [facility] Comment on above: Result Comment: The validity of the calculated GFR GFRAA in patients over 70 years has not been determined. Clinical correlation is essential. Performed By: #### L 500.4050 #### [facility] [address] [place], [address] ECRCL 114.37 ml/min Normal [facility] Comment on above: Performed By: #### L 500.4050 #### [facility] [address] [place], [address] EST GFR - AA 104 mL/min Normal >60 [facility] Comment on above: Result Comment: Afri can Syrian GFR Calc Performed By: #### L 500.4050 #### [facility] [address] [place], [address] GAP 7 Normal 5-15 [facility] Comment on above: Performed By: #### L 500.4050 #### [facility] [address] [place], [address] GFR/1.73 sq M.predicted among non-blacks MDRD (S/P/Bld) [Vol rate/Area] 86 mL/min/{1.73_m2} Normal >60 [facility] Comment on above: Result Comment: Non- GFR Calc Performed By: #### L 500.4050 #### [facility] [address] [place], [address] Globulin (S) [Mass/Vol] 4.1 g/dL Normal 2.2-4.2 [facility] Comment on above: Performed By: #### L 500.4050 #### [facility] [address] [place], [address] Glucose [Mass/Vol] 72 mg/dL Low 74-106 [facility] Comment on above: Result Comment: Preston meredith note revised GLUCOSE reference range effective 2017. Performed By: #### L 500.4050 #### [facility] [address] [place], [address] Potassium [Moles/Vol] 3.7 mmol/L Normal 3.5-5.1 [facility] Comment on above: Performed By: #### L 500.4050 #### [facility] [address] [place], [address] Sodium [Moles/Vol] 141 mmol/L Normal 136-145 [facility] Comment on above: Performed By: #### L 500.4050 #### [facility] [address] [place], [address] T PROT 6.3 g/dL Low 6.4-8.2 [facility] Comment on above: Performed By: #### L 500.4050 #### [facility] [address] [place], [address] Urea nitrogen [Mass/Vol] 12 mg/dL Normal 7-18 [facility] Comment on above: Performed By: #### L 500.4050 #### [facility] [address] [place], [address] Uric Acidon 01-12-2021 URIC 6.1 mg/dL High 2.6-6.0 [facility] Comment on above: Result Comment: The drugs N-Acetylcysteine and Metamizole may falsely depress this assay. Performed By: #### L 501.1400, L100.0500 ####[facility] [address] [place], [address] Operative Reporton Operative Report [facility] Medical Records Department [address] [place] [address] Operative Report 01/10/2118 MR#: [id number] Acct: [id number] Name: HILLARY FRAIRE Rep #: [id number] : 1990 30 From: Elli Lopez MD PCP: Dr. Chiki Gonzales MD Status:ADM IN Location: [id number] Assessment Plan (1) Vaginal delivery: (2) Meconium [...] was vigorous at time of delivery and division operations manager was present for delivery due to meconium [...] Lopez; Dr. Chiki Gonzales MD Signed Normal [facility] ([facility]) Rupture Of Membraneson 01-09-2021 ROM Positive Abnormal Negative [facility] Comment on above: Result Comment: Amni otic fluid present indicates rupture of Membranes. RESULTS CALLED TO MARY CONRAD RN (OB) 01/09/21 0011 Jarad De Leon. REPORT READ BACK BY SAME . Performed By: #### L 205.1000 #### [facility] [address] [place], [address] CBC W/Diff, Automatedon 10-0 Platelets (Bld) [#/Vol] 212 10*3/uL Normal 150-450 [facility] Comment on above: Order Comment: Gelacio arreguin note: For this sample, a platelet estimate isprovided rather than a platelet count due to plateletclumping. Other parameters associated with this sample arenot affected by platelet clumping. If a more accurateplatelet count is required, a redraw of the patient will benecessary. Performed By: #### B TS, L100.0100 ####[facility] [address] [place], [place], [address] COVID 19 AG RAPID (RN COLLEC T)on [...] Michell Analyzer SOCO, lateral flow immunofluorescent Normal [facility] Comment on above: Performed By: #### M 100.505 #### [facility] [address] [place], [address] Comprehensive Metabolic Prof ilon 01-09-2021 Albumin [Mass/Vol] 2.6 g/dL Low 3.2-5.0 [facility] Comment on above: Performed By: #### L 501.1400, L501.0900, L500.4050 #### [facility] [address] [place], [address] Albumin/Globulin [Mass ratio] 0.6 {ratio} Low 0.9-2.4 [facility] Comment on above: Performed By: #### L 501.1400, L501.0900, L500.4050 #### [facility] [address] [place], [address] ALK P 105 U/L Normal 45-117 [facility] Comment on above: Performed By: #### L 501.1400, L501.0900, L500.4050 #### [facility] [address] [place], [address] ALT [Catalytic activity/Vol] 17 U/L Normal 13-56 [facility] Comment on above: Performed By: #### L 501.1400, L501.0900, L500.4050 #### [facility] [address] [place], [address] AST [Catalytic activity/Vol] 16 U/L Normal 15-37 [facility] Comment on above: Performed By: #### L 501.1400, L501.0900, L500.4050 #### [facility] [address] [place], [address] Bilirubin [Mass/Vol] 0.40 mg/dL Normal 0.20-1.00 [facility] Comment on above: Result Comment: For patients on eltrombopag therapy, use of Dimension Perkins TBIL is not recommended. Performed By: #### L 501.1400, L501.0900, L500.4050 #### [facility] [address] [place], [address] BUN/CRE 15.8 RATIO Normal 10-20 [facility] Comment on above: Performed By: #### L 501.1400, L501.0900, L500.4050 #### [facility] [address] [place], [address] CA,Total 9.1 mg/dL Normal 8.5-10.1 [facility] Comment on above: Performed By: #### L 501.1400, L501.0900, L500.4050 #### [facility] [address] [place], [address] Chloride [Moles/Vol] 108 mmol/L High 98-107 [facility] Comment on above: Performed By: #### L 501.1400, L501.0900, L500.4050 #### [facility] [address] [place], [address] CO2 [Moles/Vol] 23.0 mmol/L Normal 21.0-32.0 [facility] Comment on above: Performed By: #### L 501.1400, L501.0900, L500.4050 #### [facility] [address] [place], [address] Creatinine [Mass/Vol] 0.89 mg/dL Normal 0.55-1.02 [facility] Comment on above: Result Comment: The validity of the calculated GFR GFRAA in patients over 70 years has not been determined. Clinical correlation is essential. Performed By: #### L 501.1400, L501.0900, L500.4050 #### [facility] [address] [place], [address] ECRCL 106.66 ml/min Normal [facility] Comment on above: Performed By: #### L 501.1400, L501.0900, L500.4050 #### [facility] [address] [place], [address] EST GFR - AA 96 mL/min Normal >60 [facility] Comment on above: Result Comment: Afri can Syrian GFR Calc Performed By: #### L 501.1400, L501.0900, L500.4050 #### [facility] [address] [place], [address] GAP 8 Normal 5-15 [facility] Comment on above: Performed By: #### L 501.1400, L501.0900, L500.4050 #### [facility] [address] [place], [address] GFR/1.73 sq M.predicted among non-blacks MDRD (S/P/Bld) [Vol rate/Area] 79 mL/min/{1.73_m2} Normal >60 [facility] Comment on above: Result Comment: Non- GFR Calc Performed By: #### L 501.1400, L501.0900, L500.4050 #### [facility] [address] [place], [address] Globulin (S) [Mass/Vol] 4.3 g/dL High 2.2-4.2 [facility] Comment on above: Performed By: #### L 501.1400, L501.0900, L500.4050 #### [facility] [address] [place], [address] Glucose [Mass/Vol] 107 mg/dL High 74-106 [facility] Comment on above: Result Comment: Fast ing Glucose result from 100 to 125 mg/dL suggests IMPAIRED HOMEOSTASIS per A.D.A. criteria. Please note revised GLUCOSE reference range effective 2017. Performed By: #### L 501.1400, L501.0900, L500.4050 #### [facility] [address] [place], [address] Potassium [Moles/Vol] 4.2 mmol/L Normal 3.5-5.1 [facility] Comment on above: Performed By: #### L 501.1400, L501.0900, L500.4050 #### [facility] [address] [place], [address] Sodium [Moles/Vol] 139 mmol/L Normal 136-145 [facility] Comment on above: Performed By: #### L 501.1400, L501.0900, L500.4050 #### [facility] [address] [place], [address] T PROT 6.9 g/dL Normal 6.4-8.2 [facility] Comment on above: Performed By: #### L 501.1400, L501.0900, L500.4050 #### [facility] [address] [place], [address] Urea nitrogen [Mass/Vol] 14 mg/dL Normal 7-18 [facility] Comment on above: Performed By: #### L 501.1400, L501.0900, L500.4050 #### [facility] [address] [place], [address] H AND P Exam - OB/GYNon 10-0 H&P Exam - SAFETY LEADER [facility] Medical Records Department [address] [place] [address] H P Exam - SAFETY LEADER 01/09/21 0850 MR#: [id number] Acct: [id number] Name: HILLARY FRAIRE Rep #: [id number] : 1990 30 From: Galilea Abraham MD PCP: Dr. Chiki Gonzales MD Status:ADM IN Location: [id number] HPI - General General Date of Admission: 01/09/21 HPI Narrative HILLARY FRAIRE, is a 30 F who presents with SROM. Maternal Data Information Final BRITTANY: 01/30/21 Gestational age: 37 weeks [facility] Medical History (Updated 01/09/21 @ 08:[address] Galilea Abraham MD) Anxiety SROM (spontaneous rupture of membranes) Home Medications aspirin [Baby Aspirin] 81 mg PO DAILY 01/08/21 [History Last Taken 01/08/21 10:00] ferrous sulfate [iron] 325 mg PO BID 01/08/21 [History Last Taken 01/08/21 10:00] jnoyezur-rps-Hu-FA [] tab PO DAILY 01/08/21 [History Last [...] MD; Dr. Chiki Gonzales MD Signed Normal [facility] Protein+Creatinine Ratio,Uri neon 01-09-2021 PROT:CRE RATIO 315 mg/g CRE High 0-200 [facility] Comment on above: Performed By: #### L 501.1400, L501.0900, L500.4050 #### [facility] [address] [place], [address] Protein (U) [Mass/Vol] 7.3 mg/dL Normal <11.9 [facility] Comment on above: Performed By: #### L 501.1400, L501.0900, L500.4050 #### [facility] [address] [place], [address] UR CREAT 23.20 mg/dL Normal NO RANGE EST. [facility] Comment on above: Performed By: #### L 501.1400, L501.0900, L500.4050 #### [facility] [address] [place], [address] Type AND Screenon 01-09-2021 Ab SCREEN GEL Negative Normal [facility] Comment on above: Order Comment: Labor Performed By: #### B TS, L100.0100 ####[facility] [address] [place], [address] ABO and Rh group Nom (Bld) Blood group A Rh(D) positive Normal [facility] Comment on above: Order Comment: Labor Performed By: #### B TS, L100.0100 ####[facility] [address] [place], [place], [address] Uric Acidon 01-09-2021 URIC 5.4 mg/dL Normal 2.6-6.0 [facility] Comment on above: Result Comment: The drugs N-Acetylcysteine and Metamizole may falsely depress this assay. Performed By: #### L 501.1400, L501.0900, L500.4050 #### [facility] [address] [place], [address] Vital Signs Date Time Vital Sign Value Performing Clinician Sergei palomares 11-26-2024 10:53-0400 Body mass index (BMI) [Ratio] 37.97 kg/m2 Sheyla Moreno APRN.CNM Work Phone: [facility] 11-26-2024 10:53-0400 Body weight 127.01 kg Sheyla Moreno APRN.CNM Work Phone: [facility] 11-26-2024 10:53-0400 Diastolic blood pressure 78 mm[Hg] Sheyla Moreno APRN.CNM Work Phone: [facility] 11-26-2024 10:53-0400 Systolic blood pressure 126 mm[Hg] Sheyla Moreno APRN.CNM Work Phone: [facility] 10-25-2024 14:23-0400 Body mass index (BMI) [Ratio] 37.05 kg/m2 Kelly Baltazar MD Work Phone: [facility] 10-25-2024 14:23-0400 Body weight 123.92 kg Kelly Baltazar MD Work Phone: [facility] 10-25-2024 14:23-0400 Diastolic blood pressure 72 mm[Hg] Kelly Baltazar MD Work Phone: [facility] 10-25-2024 14:23-0400 Systolic blood pressure 120 mm[Hg] Kelly Baltazar MD Work Phone: [facility] 09-27-2024 15:15-0400 Body mass index (BMI) [Ratio] 37.16 kg/m2 Adina Krueger MD Work Phone: [facility] 09-27-2024 15:15-0400 Body weight 124.29 kg Adina Krueger MD Work Phone: [facility] 09-27-2024 15:15-0400 Diastolic blood pressure 70 mm[Hg] Adina Krueger MD Work Phone: [facility] 09-27-2024 15:15-0400 Systolic blood pressure 134 mm[Hg] Adina Krueger MD Work Phone: [facility] 09-03-2024 15:08-0400 Body mass index (BMI) [Ratio] 36.75 kg/m2 Elli Gaytan MD Work Phone: [facility] 09-03-2024 15:08-0400 Body weight 122.92 kg Elli Gaytan MD Work Phone: [facility] 09-03-2024 15:08-0400 Diastolic blood pressure 68 mm[Hg] Elli Gaytan MD Work Phone: [facility] 09-03-2024 15:08-0400 Systolic blood pressure 142 mm[Hg] Elli Gaytan MD Work Phone: [facility] 08-02-2024 15:08-0400 Body mass index (BMI) [Ratio] 37.43 kg/m2 Polly Hamilton MD Work Phone: [facility] 08-02-2024 15:08-0400 Body weight 125.19 kg Polly Hamilton MD Work Phone: [facility] 08-02-2024 15:08-0400 Diastolic blood pressure 76 mm[Hg] Polly Hamilton MD Work Phone: [facility] 08-02-2024 15:08-0400 Systolic blood pressure 138 mm[Hg] Polly Hamilton MD Work Phone: [facility] 07-05-2024 15:21-0400 Body mass index (BMI) [Ratio] 37.78 kg/m2 Kelly Baltazar MD Work Phone: [facility] 07-05-2024 15:21-0400 Body weight 126.37 kg Kelly Baltazar MD Work Phone: [facility] 07-05-2024 15:21-0400 Diastolic blood pressure 80 mm[Hg] Kelly Baltazar MD Work Phone: [facility] 07-05-2024 15:21-0400 Systolic blood pressure 120 mm[Hg] Kelly Baltazar MD Work Phone: [facility] 06-07-2024 14:40-0500 Body height 182.9 cm Leanne Kenia SAFETY BELT INSTALLER.APPAREL DESIGNER Work Phone: [facility] 06-07-2024 14:40-0500 Body mass index (BMI) [Ratio] 38 kg/m2 Leanne Kenia SAFETY BELT INSTALLER.APPAREL DESIGNER Work Phone: [facility] 06-07-2024 14:40-0500 Body weight 127.1 kg Leanne Sarles SAFETY BELT INSTALLER.APPAREL DESIGNER Work Phone: [facility] 06-07-2024 14:40-0500 Diastolic blood pressure 70 mm[Hg] Leanne Sarles SAFETY BELT INSTALLER.APPAREL DESIGNER Work Phone: [facility] 06-07-2024 14:40-0500 Systolic blood pressure 118 mm[Hg] Leanne Kenia SAFETY BELT INSTALLER.APPAREL DESIGNER Work Phone: [facility] 05-24-2024 08:03-0500 Body mass index (BMI) [Ratio] 38.63 kg/m2 Crissy Plotlavell SAFETY BELT INSTALLER.CNM Work Phone: [facility] 05-24-2024 08:03-0500 Body weight 129.18 kg Crissy Tom SAFETY BELT INSTALLER.CNM Work Phone: [facility] 05-24-2024 08:03-0500 Diastolic blood pressure 68 mm[Hg] Crissy Plotlavell SAFETY BELT INSTALLER.CNM Work Phone: [facility] 05-24-2024 08:03-0500 Systolic blood pressure 124 mm[Hg] Crissy Tom SAFETY BELT INSTALLER.CNM Work Phone: [facility] 02-11-2022 08:15-0500 Body height 182.9 cm Sheyla Moreno SAFETY BELT INSTALLER.CNM Work Phone: [facility] 02-11-2022 08:15-0500 Body weight 118.93 kg Sheyla Moreno SAFETY BELT INSTALLER.CNM Work Phone: [facility] 02-11-2022 08:15-0500 Diastolic blood pressure 70 mm[Hg] Sheyla Moreno SAFETY BELT INSTALLER.CNM Work Phone: [facility] 02-11-2022 08:15-0500 Systolic blood pressure 118 mm[Hg] Sheyla Moreno SAFETY BELT INSTALLER.CNM Work Phone: [facility] Encounters Encounter Date Encounter Type Care Provider Facility Start: 11-26-2024 End: 11-26-2024 ambulatory SHEYLA MORENO Facility:[facility] Start: 11-26-2024 End: 11-26-2024 Patient encounter procedure i Tech 1 Hr Leader [facility] Maternal Medicine Comment on [...] Start: 11-26-2024 End: 11-26-2024 ambulatory SHEYLA MORENO Facility:[facility] Start: 11-08-2024 End: 11-08-2024 ambulatory KELLY BALTAZAR Facility:[facility] Start: 10-29-2024 End: 10-29-2024 Telephone encounter [...] 10-25-2024 Patient encounter procedure Whi Tech 1 Hr Leader [facility] Comment on above: Encounter for ultras ound to check growth (HCC) (Primary Dx); Chronic hypertension in (HCC); 28 weeks gestation of (HCC) Start: 10-25-2024 End: 10-25-2024 ambulatory ADINA KRUEGER Facility:[facility] Start: 09-27-2024 End: 09-27-2024 Patient encounter procedure Adina Krueger MD Work Phone: OB/Gynecology Comment on above: Supervision of high risk in second trimester (HCC) (Primary Dx); UTI (urinary tract infection) in , antepartum (HCC); Chronic hypertension in (HCC); 24 weeks gestation of (HCC) Start: 09-27-2024 End: 09-27-2024 ambulatory CHIKI GONZALES Facility:[facility] Start: 09-20-2024 End: 11-20-2024 Follow-up encounter Elli Gaytan MD Work Phone: OB/Gynecology Start: 09-17-2024 End: 09-17-2024 ambulatory CHIKI GONZALES Facility:[facility] Start: 09-16-2024 End: 09-21-2024 ambulatory Elli [...] , antepartum (HCC); 21 weeks gestation of ([facility]) Encounter for anatomic survey ([facility]) (Primary Dx); 8 weeks gestation of ([facility]); Obesity affecting in second trimester, unspecified obesity type ([facility]) Start: 09-03-2024 End: 09-03-2024 ambulatory [facility] Facility:[facility] Start: 08-04-2024 End: 08-04-2024 Follow-up encounter Radha Hammer APRN.APPAREL DESIGNER Work Phone: OB/Gynecology Comment on above: Results Start: 08-02-2024 End: 08-02-2024 Patient encounter procedure Polly Hamilton MD Work Phone: OB/Gynecology Comment on above: , supervisi on, high-risk, unspecified trimester (HCC) (Primary Dx); BMI 38.0-38.9,adult; 16 weeks gestation of ([facility]); UTI (urinary tract infection) in , antepartum ([facility]) Start: 08-02-2024 End: 08-02-2024 ambulatory CHIKI GONZALES Facility:[facility] Start: 07-13-2024 End: 07-13-2024 ambulatory Leanne Barahonacalf SAFETY BELT INSTALLER.APPAREL DESIGNER Work Phone: OB/Gynecology Start: 07-13-2024 End: 07-13-2024 Patient encounter procedure Leanne Barahonacalf SAFETY BELT INSTALLER.APPAREL DESIGNER Work Phone: OB/Gynecology Comment on above: August 02 appointme nt Start: 07-08-2024 End: 07-08-2024 Telephone encounter Kelly Baltazar MD Work Phone: OB/Gynecology Comment on above: Orders Start: 07-05-2024 End: 07-05-2024 ambulatory [facility] Facility:[facility] Start: 07-05-2024 End: 07-05-2024 Patient encounter procedure Kelly Baltazar MD Work Phone: OB/Gynecology Comment on above: , supervisi on, high-risk, unspecified trimester (Primary Dx); 12 weeks gestation of ; UTI (urinary tract infection) in , antepartum; Elevated LFTs 8 weeks gestation of Start: 07-05-2024 End: 09-04-2024 Follow-up encounter Kelly Baltazar MD Work Phone: OB/Gynecology Start: 06-07-2024 End: 06-07-2024 [facility] Facility:[facility] Start: 06-07-2024 End: 06-07-2024 Patient encounter procedure Leanne Sarles SAFETY BELT INSTALLER.APPAREL DESIGNER Work Phone: OB/Gynecology Comment on above: BMI 38.0-38.9,adult (Primary Dx); with uncertain dates, antepartum; Screening for cervical cancer; Screen for STD (sexually transmitted disease); 8 weeks gestation of ; History of anemia; Generalized anxiety disorder; , supervision, high-risk, unspecified trimester Start: 06-07-2024 End: 06-09-2024 Follow-up encounter Leanne Aquino APRN.APPAREL DESIGNER Work Phone: OB/Gynecology Comment on above: UTI (urinary tract i nfection) in , antepartum (Primary Dx) Start: 05-24-2024 End: 05-24-2024 ambulatory CRISSY OTM Facility:[facility] Start: 05-24-2024 End: 05-24-2024 Patient encounter procedure Crissy Tom SAFETY BELT INSTALLER.CNM Work Phone: OB/Gynecology Comment on above: Missed [...] requested procedure Sheyla Moreno APRN.CNM Work Phone: [facility] Start: 05-29-2020 End: 05-29-2020 Telephone encounter Sheyla [...] uterus after 1st trimest 1/1st gestation Leanne Sarles SAFETY BELT INSTALLER.[employer]PAREL DESIGNER Work Phone: Start: 07-05-2024 Us preg uterus after 1st trimest 1/1st gestation Leanne Kenia SAFETY BELT INSTALLER.[employer]PAREL DESIGNER Work Phone: Start: 06-07-2024 Antibody screen ADINA EVANS Comment on above: Order Comment: Speci men Type: BLOOD SPECIMEN Ordering Facility: [facility] Address: [address] [place] [address] Performed By: #### T SPN #### CC MAIN BLOOD BANK [facility] [id number] [address] [place] [address] [place] [address] [place] Start: 06-07-2024 Us uterus limited 1/> fetuses Leanne Sarles SAFETY BELT INSTALLER.APPAREL DESIGNER Work Phone: Start: 05-24-2024 UA DIP,URINE HCG (POC) Crissy Tom APRN.CNM Work Phone: Start: 12-13-2020 End: 10-27-2024 Vaccine refused by patient COVID-19 vaccine series declined Sheyla Moreno APRN.CNM Work Phone: Plan of Treatment Date Care Activity Detail Author Start: 11-13-2030 Urine microalbumin profile [facility] Start: 06-07-2029 Screening for malign ant neoplasm of cervix Cervical Cancer Screening [facility] Start: 06-15-2025 HPV TESTING HPV TESTING [facility] Start: 06-15-2025 PAP TESTING PAP TESTING [facility] Start: 06-15-2025 Screening for malign ant neoplasm of cervix Cervical Cancer Screening [facility] Start: 12-27-2024 End: 12-27-2024 Patient encounter procedure Maternal Medicine Comment on above: Growth Growth/OB Start: 12-20-2024 End: 12-20-2024 Patient encounter procedure 12/20/2024 10:50 AM EDT Office Visit OB/Gynecology [address] [place] [address] Kelly Baltazar MD [address] [place] [address] OB OB/Gynecology Comment on above: OB Start: 12-13-2024 End: 12-13-2024 Patient encounter procedure 12/13/2024 10:10 AM EDT Routine Office Visit OB/Gynecology [address] [place] [address] Kelly Baltazar MD [address] [place] [address] OB OB/Gynecology Comment on above: OB Start: 12-06-2024 Influenza vaccination C [facility] Start: 12-06-2024 RSV Vaccine (1 - Ris k 1-dose series) RSV Vaccine (1 - Risk 1-dose series) [facility] Start: 11-26-2024 End: 11-26-2024 Patient encounter procedure Maternal Medicine Comment on above: Growth/OB Start: 11-22-2024 End: 11-22-2024 Patient encounter procedure 11/22/2024 1:30 PM EDT Routine Office Visit OB/Gynecology [address] [place] [address] Kelly Baltazar MD [address] [place] [address] OB OB/Gynecology Comment on above: OB Start: 11-08-2024 End: 11-08-2024 Patient encounter procedure 11/08/2024 10:40 AM EDT Routine Office Visit OB/Gynecology [address] [place] [address] Kelly Baltazar MD [address] [place] [address] OB OB/Gynecology Comment on above: OB Start: 10-25-2024 End: 10-25-2024 Patient encounter procedure 10/25/2024 3:10 PM EDT Routine Office Visit OB/Gynecology [address] [place] [address] Kelly Baltazar MD [address] [place] [address] OB Routine OB/Gynecology Comment on above: OB Routine Start: 10-25-2024 End: 10-25-2024 ambulatory 10/25/2024 3:00 PM EDT Results Only [facility] [address] [place] [address] Glucose test and Labs [facility] Comment on above: Glucose test and Lab s Start: 10-25-2024 End: 10-25-2024 Patient encounter procedure 10/25/2024 1:30 PM EDT Routine Office Visit Maternal Medicine [address] [place] [address] Growth Maternal Medicine Comment on above: Growth Start: 09-27-2024 End: 09-27-2024 Patient encounter procedure OB/Gynecology Comment on above: OB Routine OB Routine - needs T OC once finished with Augmentin Start: 09-27-2024 End: 12-27-2024 ANEMIA REFLEX PANEL ANEMIA REFLEX PANEL Lab Routine Expected: 09/27/2024, Expires: 12/27/2024 [facility] Comment on above: Expected: 09/27/2024 , Expires: 12/27/2024 Start: 09-27-2024 End: 09-27-2025 GESTATIONAL GLUCOSE SCREEN, 1-HOUR, 50 GRAM, NON-FASTING GESTATIONAL GLUCOSE SCREEN, 1-HOUR, 50 GRAM, NON-FASTING Lab Routine Expected: 09/27/2024, Expires: 09/27/2025 [facility] Work Phone: Comment on above: Expected: 09/27/2024 , Expires: 09/27/2025 Start: 09-27-2024 End: 09-27-2025 SYPHILIS TREPONEMAL W/REFLEX SYPHILIS TREPONEMAL W/REFLEX Lab Routine Expected: 09/27/2024, Expires: 09/27/2025 [facility] Comment on above: Expected: 09/27/2024 , Expires: 09/27/2025 Start: 09-14-2024 End: 12-14-2024 Bacteria identified in Urine by Culture BACTERIAL CULTURE, URINE Microbiology Routine UTI (urinary tract infection) in , antepartum (HCC) Expected: 09/14/2024 (Approximate), Expires: 12/14/2024 [facility] Comment on above: Expected: 09/14/2024 (Approximate), Expires: 12/14/2024 Start: 09-03-2024 End: 09-03-2024 Patient encounter procedure Maternal Medicine Comment on above: Anatomy Scan OB Routine Start: 08-02-2024 End: 08-02-2024 Patient encounter procedure 08/02/2024 3:10 PM EDT Routine Office Visit OB/Gynecology [address] [place] [address] Polly Hamilton MD [address] [place] [address] OB Routine OB/Gynecology Comment on above: OB Routine Start: 07-05-2024 End: 07-05-2024 Patient encounter procedure Maternal Medicine Comment on above: Nuchal OB Routine Start: 07-05-2024 End: 10-04-2024 Chromosome 21 trisomy [Presence] in Blood or Tissue by Cytogenetics [id number] PLUS Lab Routine 8 weeks gestation of Expected: 07/05/2024, Expires: 10/04/2024 [facility] Comment on above: Expected: 07/05/2024 , Expires: 10/04/2024 Start: 06-07-2024 End: 06-07-2024 Patient encounter procedure 06/07/2024 2:45 PM EST Initial Office Visit OB/Gynecology [address] [place] [address] Leanne Aquino APRN.APPAREL DESIGNER [address] [place] [address] New ob OB/Gynecology Comment on above: New ob Start: 06-07-2024 End: 09-06-2024 ANEMIA REFLEX PANEL [facility] Work Phone: Comment on above: Expected: 06/07/2024 , Expires: 09/06/2024 Start: 06-07-2024 End: 09-06-2024 Comprehensive metabolic 2000 panel - Serum or Plasma [facility] Comment on above: Expected: 06/07/2024 , Expires: 09/06/2024 Start: 06-07-2024 End: 09-06-2024 Hemoglobin A1c in Blood [facility] Comment on above: Expected: 06/07/2024 , Expires: 09/06/2024 Start: 06-07-2024 End: 09-06-2024 Hepatitis B virus surface Ag [Presence] in Serum [facility] Comment on above: Expected: 06/07/2024 , Expires: 09/06/2024 Start: 06-07-2024 End: 09-06-2024 Hepatitis C virus Ab [Presence] in Serum [facility] Comment on above: Expected: 06/07/2024 , Expires: 09/06/2024 Start: 06-07-2024 End: 09-06-2024 HIV 1+2 Ab [Presence] in Serum or Plasma by Immunoassay [facility] Comment on above: Expected: 06/07/2024 , Expires: 09/06/2024 Start: 06-07-2024 End: 06-07-2025 OBSTETRIC ULTRASOUND WHI OBSTETRIC ULTRASOUND WHI Anc Imaging Routine 8 weeks gestation of Expected: 06/07/2024, Expires: 06/07/2025 [facility] Comment on above: Expected: 06/07/2024 , Expires: 06/07/2025 Start: 06-07-2024 End: 09-06-2024 Protein/Creatinine [Mass Ratio] in Urine [facility] Comment on above: Expected: 06/07/2024 , Expires: 09/06/2024 Start: 06-07-2024 End: 09-06-2024 RUBELLA IGG ANTIBODY [facility] Comment on above: Expected: 06/07/2024 , Expires: 09/06/2024 Start: 06-07-2024 End: 09-06-2024 SYPHILIS TREPONEMAL W/REFLEX [facility] Comment on above: Expected: 06/07/2024 , Expires: 09/06/2024 Start: 06-07-2024 End: 09-06-2024 TYPE + SCREEN [facility] Comment on above: Expected: 06/07/2024 , Expires: 09/06/2024 Start: 06-07-2024 End: 06-07-2024 Patient encounter procedure 06/07/2024 10:30 AM EST Routine Office Visit OB/Gynecology [address] [place], [place] [id number] Crissy Tom APRN.[facility] [address] [place] [address] Last cycle 04/09/2024, expecting, took 2 at home test OB/Gynecology Comment on above: Last cycle , expecting, took 2 at home test Start: 12-07-2023 Covid-19 Vaccine ( season) Covid-19 Vaccine ( season) [facility] Start: 12-07-2023 Influenza vaccination Influenza Vacc ine (#1) [facility] Start: 12-06-2022 Influenza vaccination Influenza Vacc ine (#1) [facility] Start: 04-07-2022 Depression Assessment Depression Ass essment [facility] Start: 02-11-2022 End: 04-13-2022 Thyrotropin [Units/volume] in Serum or Plasma [facility] Work Phone: Comment on above: Expected: 02/11/2022 , Expires: 04/13/2022 Start: 12-06-2021 Influenza vaccination INFLUENZA (#1) [facility] Start: 04-07-2021 DEPRESSION ASSESSMENT DEPRESSION ASS ESSMENT [facility] Start: 2020 HPV TESTING HPV TESTING [facility] Start: 12-07-2019 Influenza vaccination INFLUENZA (#1) [facility] Start: 2017 HPV Vaccine (1 - 3-d ose SCDM series) HPV Vaccine (1 - 3-dose SCDM series) [facility] Start: 2011 PAP TESTING PAP TESTING [facility] Start: 2009 Hepatitis B Vaccine (1 of 3 - 19+ 3-dose series) Hepatitis B Vaccine (1 of 3 - 19+ 3-dose series) [facility] Start: 2009 Urine microalbumin profile DTAP,TDAP,TD (1 - Tdap) [facility] Start: 2008 Anxiety Screening Anxiety Screening [facility] Start: 2008 Depression Screening Depression Scre ening [facility] Start: 2008 HEPATITIS C SCREENING HEPATITIS C SC REENING [facility] Start: 2008 HIV SCREENING HIV SCREENING [facility] Start: 2002 Adult depression screening assessment DEPRESSION SCREENING [facility] Start: 1990 COVID-19 VACCINE (#1) COVID-19 VACCI NE (#1) [facility] Start: 1990 HEPATITIS B (1 of 3 - 3-dose series) HEPATITIS B (1 of 3 - 3-dose series) [facility] Start: 1990 Hepatitis B Vaccine (1 of 3 - 3-dose series) Hepatitis B Vaccine (1 of 3 - 3-dose series) [facility] Bacteria identified in Urine by Culture BACTERIAL CULTURE, URINE Microbiology Routine 8 weeks gestation of 06/07/2024 3:39 PM EST [facility] Bacteria identified in Urine by Culture BACTERIAL CULTURE, URINE Microbiology Routine 12 weeks gestation of UTI (urinary tract infection) in , antepartum , supervision, high-risk, unspecified trimester 07/05/2024 3:48 PM EDT [facility] Work Phone: Bacteria identified in Urine by Culture BACTERIAL CULTURE, URINE Microbiology Routine UTI (urinary tract infection) in , antepartum ([facility]) 08/02/2024 3:21 PM T [facility] Work Phone: Bacteria identified in Urine by Culture BACTERIAL CULTURE, URINE Microbiology Routine Supervision of high risk in second trimester ([facility]) History of pre-eclampsia UTI (urinary tract infection) in , antepartum ([facility]) 21 weeks gestation of ([facility]) 09/03/2024 3:20 PM EDT [facility] Bacteria identified in Urine by Culture BACTERIAL CULTURE, URINE Microbiology Routine UTI (urinary tract infection) in , antepartum ([facility]) Supervision of high risk in second trimester ([facility]) Chronic hypertension in ([facility]) 24 weeks gestation of ([facility]) Ordered: 09/27/2024 [facility] Comment on above: Ordered: 09/27/2024 Bacteria identified in Urine by Culture BACTERIAL CULTURE, URINE Microbiology Routine UTI (urinary tract infection) in , antepartum ([facility]) Supervision of high risk in second trimester ([facility]) Chronic hypertension in ([facility]) 28 weeks gestation of ([facility]) 10/25/2024 3:01 PM T [facility] Work Phone: Chlamydia trachomatis+Neisseria gonorrhoeae DNA [Presence] in Unspecified specimen by KEVIN with probe detection GONORRHEA/CHLAMYDIA NAAT Lab Routine Screen for STD (sexually transmitted disease) 8 weeks gestation of 06/07/2024 3:39 PM [facility] End: 05-29-2021 HCG.beta subunit Qn HCG QUANTITATIVE Lab Routine Threatened miscarriage 1 Occurrences starting 05/29/2020 until 05/29/2021 [facility] Comment on above: 1 Occurrences starti ng 05/29/2020 until 05/29/2021 HCG.beta subunit Qn HCG QUANTITA TIVE Lab Routine Threatened miscarriage 05/29/2020 4:41 PM [facility] End: 01-25-2025 OBSTETRIC ULTRASOUND WHI OBSTETRIC ULTRASOUND WHI Anc Imaging Routine Chronic hypertension in (HCC) 21 weeks gestation of ([facility]) Once per month for 5 Occurrences starting 09/03/2024 until 01/25/2025 [facility] Work Phone: Comment on above: Once per month for 5 Occurrences starting 09/03/2024 until 01/25/2025 PAP TEST PAP TEST Lab [facility] patsy Screening for cervical cancer 8 weeks gestation of 06/07/2024 3:39 PM EST [facility] TRICHOMONAS VAGINALI S NAAT TRICHOMONAS VAGINALIS NAAT Lab Routine Screen for STD (sexually transmitted disease) 8 weeks gestation of 06/07/2024 3:39 PM EST [facility] UA DIP,URINE HCG (POC) UA DIP,UR INE HCG (POC) Lab Routine UTI (urinary tract infection) in , antepartum (HCC) Ordered: 09/07/2024 [facility] Work Phone: Comment on above: Ordered: 09/07/2024 [facility] Immunizations Immunization Date Immunization Notes Care Provider Ijeoma staley 11-13-2020 tetanus toxoid, redu rosemary diphtheria toxoid, and acellular pertussis vaccine, adsorbed Sheyla Moreno SAFETY BELT INSTALLER.CNM Work Phone: [facility] Payers Date Payer Category Payer [facility] PPO OOS [id number] 2023 Unknown [id number] 2020 Unknown [id number] 2006 Private Health Insurance [employer] PPO [id number] 2006-Present PPO [id number] Social History Date Type Detail Facility Start: 08-08-2012 Tobacco smoking stat us WVIS Never smoker [facility] Start: 08-08-2012 [facility] Start: 1990 Sex Assigned At Not on file C [facility] Start: 12-17-2020 End: 01-16-2021 Exposure to SARS-CoV-2 (event) Not sure [facility] Start: 06-08-2020 End: 06-07-2024 Tobacco smoking status NHIS Ex-smoker [facility] Work Phone: Start: 06-08-2009 End: 06-08-2017 History of tobacco use Current smoker [facility] Work Phone: Start: 06-08-2009 End: 06-08-2017 History of tobacco use Cigarette Smoker [facility] Work Phone: Start: 06-08-2020 End: 05-24-2024 Tobacco use and exposure Smokeless tobacco non-user [facility] Work Phone: Start: 02-20-2021 End: 11-08-2024 Alcohol intake Ex-drinker (finding) [facility] Start: 06-08-2020 Education 16 [facility] Start: 06-08-2020 Alcohol Comment social occasional dr mclaughlin [facility] Start: 02-11-2022 End: 04-09-2023 History of Social function [facility] Start: 02-11-2022 End: 04-09-2023 Tobacco use panel [facility] Start: 03-08-2012 National Score (1-100), lower number is lower risk 51 [facility] Start: 1990 Sex assigned at Female C [facility] Start: 05-20-2024 Gender identity Identifies as female gender (finding) [facility] Start: 06-07-2024 Tobacco use and exposure Former smokeless tobacco user [facility] Start: 06-07-2024 Tobacco Comment Nicotine pouch discontinued 04/2024 [facility] Start: 04-23-2024 [facility] Goals Date Patient Goal Desired Activity /State [...] RTO in 2 weeks Sheyla Moreno APRN.CNM [facility] 11-29-2024 Miscellaneous Notes FLAKO-S: Hillary Fraire is [...] Sheyla Moreno APRN.CNM documented in this encounter [facility] 11-26-2024 Note Indication Evaluation of growth Maternal [...] by LMP 33 w + 0 d BRITTANY by LMP: [...] 3 oz EFW by: Hadlock (HC-AC-FL) Extended Nibbler Operator 6.0 mm Extremities / Bony Struc FL [...] 11/26/2024 10:50 AM EDT SEQUENTIAL SCREENINGS The [facility] offers sequential screenings for women who are [...] It will require an appointment with our dialysis biomed technician. This is not an ultrasound performed [...] the above symptoms, contact our office at [phone] and ask to speak with a nurse. After hours, you can call doctors registry at [phone] OR call [facility] at [phone] and ask to have the doctor mission analyst paged. If you consider this an emergency, dial 9-1-1 or go to your nearest emergency department. NEED HELP? Are you dealing with a violent or abusive relationship? Are you a victim of rape or sexual assult? Call [facility] ([place]) 24 hour Crisis Hotline: 892.339.1704 or 623-409-9546. MANUAL Your Guide to a Healthy manual is now on-line. Visit [email or web address] to download your free copy documented in this encounter [facility] 11-08-2024 Note HNO ID: [id number] Author: KELLY BALTAZAR MD Service: ? Author [...] - RTO 2 wks Kelly Baltazar DO [facility] 10-29-2024 Telephone encounter Note Faxed. Staci Ho RN [facility] 10-29-2024 Miscellaneous Notes Faxed. Staci Ho RN Breast pump order received from [address] To SW to sign. Karina Severino RN documented in this encounter [facility] 10-29-2024 Telephone encounter Note Breast pump order received from [address] To SW to sign. Karina Severino RN [facility] 10-26-2024 Telephone encounter Note Mild anemia so she should start an OTC iron supplement every other day. Galilea Abraham MD [facility] Work Phone: 10-26-2024 Miscellaneous Notes Mild anemia so she should start an OTC iron supplement every other day. Galilea Abraham MD documented in this encounter [facility] 10-25-2024 Note HNO ID: [id number] Author: KELLY BALTAZAR MD Service: ? Author [...] - RTO 2 wks Kelly Baltazar DO [facility] 10-25-2024 History of Presen t illness Narrative [...] - RTO 2 wks Kelly Baltazar DO documented in this encounter [facility] 10-25-2024 Note Indication Evaluation of growth, Follow-up [...] 13 oz EFW by: Hadlock (HC-AC-FL) Extended Nibbler Operator 6.6 mm Extremities / Bony Struc FL / HC 0.20 Other Structures FHR 148 bpm Anatomy Lateral ventricles: normal Cavum septi pellucidi: normal Cerebellum: normal Cisterna magna: normal Head / Neck Vermis: normal Lips: normal Profile: normal Nose: normal Face Maxilla: normal Mandible: normal 4-chamber view: normal RVOT view: normal LVOT view: normal 3-vessel view: normal 9-lskyqw-frqhxfz view: normal Heart / Thorax Situs: situs [...] UTI (urinary tract infection) in , antepartum ([facility]) just finished antiobiotics Orders: BACTERIAL CULTURE, URINE Supervision of high risk in second trimester ([facility]) f/u in 4 weeks, 28 week labs next visit Orders: BACTERIAL CULTURE, URINE Chronic hypertension in ([facility]) checks BP at homew Orders: BACTERIAL CULTURE, URINE 24 weeks gestation of ([facility]) Orders: BACTERIAL CULTURE, URINE Adina Krueger M.D. [facility] 09-27-2024 Miscellaneous Notes RR- VB No. LOF No. CTXS No. Movement: present. Other c/o: No. Medication list reviewed. SENSITIVE EXAM: Sensitive exam not performed. Physical Exam See Flow Sheet Abd: soft, nontender, gravid Ext: edema: Trace A/P 24w3d Estimated Date of Delivery: 01/14/25 Assessment & Plan UTI (urinary tract infection) in , antepartum ([facility]) just finished antiobiotics Orders: BACTERIAL CULTURE, URINE Supervision of high risk in second trimester ([facility]) f/u in 4 weeks, 28 week labs next visit Orders: BACTERIAL CULTURE, URINE Chronic hypertension in ([facility]) checks BP at homew Orders: BACTERIAL CULTURE, URINE 24 weeks gestation of ([facility]) Orders: BACTERIAL CULTURE, URINE Adina Krueger M.D. documented in this encounter [facility] 09-27-2024 Instructions Bella Dinero MA - 09/27/2024 3:12 PM EDT Oral Glucose Tolerance Test During Your provider has ordered an oral glucose tolerance test. For more information: My [facility] Oral Glucose Tolerance Test How do I [...] is not advised. documented in this encounter [facility] 09-07-2024 Telephone encounter Note Noted- ordered. I also ordered her prophylaxis assuming this abx will work. (One pill daily for remainder of ) [facility] 09-07-2024 Miscellaneous Notes Noted- ordered. I also ordered her prophylaxis assuming this abx will work. (One pill daily for remainder of ) See Pt's Clikthrought message---Would like to try same antibiotic and [...] rounds of abx? documented in this encounter [facility] 09-07-2024 Telephone encounter Note See Pt's Tripbirds message---Would like to try same antibiotic and retest urine on Friday post antibiotic completion. Antibiotic pending along with UA and repeat urine culture if appropriate. Please advise and will contact Pt. Staci Ho RN [facility] 09-07-2024 Telephone encounter Note Please tell her [...] finishing the whole rounds of abx? T [facility] 09-03-2024 Progress note Formatting of t his note might be different from the original. DM-Pt doing well. Denies vaginal Bleeding, Leaking fluid, or regular Contractions. Pt reports good movement Physical Exam: Gen: female in no apparent distress Abd: soft, Gravid. Non tender to palpation. See flow sheet @ 21 weeks Assessment & Plan Supervision of high risk in second trimester ([facility]) Orders: BACTERIAL CULTURE, URINE UA DIP, URINE (POC) Chronic hypertension in ([facility]) Growth us starting 28 weeks Orders: OBSTETRIC ULTRASOUND WHI; Standing Obesity in ([facility]) NSTs and growth History of pre-eclampsia Continue ASA Orders: BACTERIAL CULTURE, URINE UTI (urinary tract infection) in , antepartum ([facility]) WALKER today- did show nitrates on dip. May consider Prophylactic treatment remainder of - will await culture. Orders: BACTERIAL CULTURE, URINE UA DIP, URINE (POC) 21 weeks gestation of ([facility]) RTO 4 wks Orders: BACTERIAL CULTURE, URINE OBSTETRIC ULTRASOUND WHI; Standing Elli Lopez MD T [facility] 09-03-2024 Miscellaneous Notes DM-Pt doing well. Denies vaginal Bleeding, Leaking fluid, or regular Contractions. Pt reports good movement Physical Exam: Gen: female in no apparent distress Abd: soft, Gravid. Non tender to palpation. See flow sheet @ 21 weeks Assessment & Plan Supervision of high risk in second trimester (HCC) Orders: BACTERIAL CULTURE, URINE UA DIP, URINE (POC) Chronic hypertension in ([facility]) Growth us starting 28 weeks Orders: OBSTETRIC ULTRASOUND WHI; Standing Obesity in ([facility]) NSTs and growth History of pre-eclampsia Continue ASA Orders: BACTERIAL CULTURE, URINE UTI (urinary tract infection) in , antepartum ([facility]) WALKER today- did show nitrates on dip. May consider Prophylactic treatment remainder of - will await culture. Orders: BACTERIAL CULTURE, URINE UA DIP, URINE (POC) 21 weeks gestation of (HCC) RTO 4 wks Orders: BACTERIAL CULTURE, URINE OBSTETRIC ULTRASOUND WHI; Standing Elli Lopez MD documented in this encounter [facility] 09-03-2024 Instructions Bella Dinreo MA - 09/03/2024 1:53 PM EDT SEQUENTIAL SCREENINGS The [facility] offers sequential screenings for women who are [...] It will require an appointment with our dialysis biomed technician. This is not an ultrasound performed [...] the above symptoms, contact our office at [phone] and ask to speak with a nurse. After hours, you can call doctors registry at [phone] OR call [facility] at [phone] and ask to have the doctor mission analyst paged. If you consider this an emergency, dial 7 or go to your nearest emergency department. NEED HELP? Are you dealing with a violent or abusive relationship? Are you a victim of rape or sexual assult? Call [facility] ([place]) 24 hour Crisis Hotline: 425.500.7030 or 915-386-5443. MANUAL Your Guide to a Healthy manual is now on-line. Visit [email or web address] to download your free copy documented in this encounter [facility] 08-04-2024 Telephone encounter Note Patient notified. Karina Severino RN [facility] 08-04-2024 Miscellaneous Notes Patient notified. Karina Severino RN Please notify patient: + UTI Rx for Macrobid sent Push fluids To notify or go to ER with back pain, fever, chills Radha Hammer APRN.APPAREL DESIGNER documented in this encounter [facility] 08-04-2024 Telephone encounter Note Please notify patient: + UTI Rx for Macrobid sent Push fluids To notify or go to ER with back pain, fever, chills Radha Hammer APRN.APPAREL DESIGNER [facility] 08-02-2024 Progress note Formatting of t his [...] ICD10: Z68.38 3. 16 weeks gestation of ([facility]) - ICD9: V22.2, ICD10: Z3A.16 4. UTI (urinary tract infection) in , antepartum ([facility]) - ICD9: 646.63, 599.0, ICD10: O23.40 - BACTERIAL CULTURE, URINE Polly Hamilton MD [facility] 08-02-2024 Miscellaneous Notes S: Hillary Fraire is a 34 year old female who presents at 01/14/2025, by Last Menstrual Period for a routine visit. Denies headache, visual changes, chest pain, shortness of breath, vaginal bleeding, leakage of fluid, or dysuria. Feeling well, no complaints. O: See flow sheet Gen: No apparent distress Abd: Gravid, nontender ASSESSMENT/PLAN: 1. , supervision, high-risk, unspecified trimester ([facility]) - ICD9: V23.9, ICD10: O09.90 (primary diagnosis) 2. BMI 38.0-38.9,adult - ICD9: V85.38, ICD10: Z68.38 3. 16 weeks gestation of ([facility]) - ICD9: V22.2, ICD10: Z3A.16 4. UTI (urinary tract infection) in , antepartum ([facility]) - ICD9: 646.63, 599.0, ICD10: O23.40 - BACTERIAL CULTURE, URINE Polly Hamilton MD documented in this encounter [facility] 08-02-2024 Instructions Michelle Drake MA - 08/02/2024 3:05 PM EDT SEQUENTIAL SCREENINGS The [facility] offers sequential screenings for women who are [...] It will require an appointment with our dialysis biomed technician. This is not an ultrasound performed [...] the above symptoms, contact our office at [phone] and ask to speak with a nurse. After hours, you can call doctors registry at [phone] OR call [facility] at [phone] and ask to have the doctor mission analyst paged. If you consider this an emergency, dial 91-5 or go to your nearest emergency department. NEED HELP? Are you dealing with a violent or abusive relationship? Are you a victim of rape or sexual assult? Call [facility] ([place]) 24 hour Crisis Hotline: 952.442.3122 or 543-976-9660. MANUAL Your Guide to a Healthy manual is now on-line. Visit [email or web address] to download your free copy documented in this encounter [facility] 07-08-2024 Telephone encounter Note See result note Keflex sent in for +urine cx [facility] 07-08-2024 Miscellaneous Notes See result note Keflex sent in for +urine cx documented in this encounter [facility] 07-05-2024 Progress note Formatting of t his [...] - RTO 4 wks Kelly Baltazar DO [facility] 07-05-2024 Miscellaneous Notes SW- pt doing well. [...] Kelly Baltazar DO documented in this encounter [facility] 07-05-2024 Instructions Lizzie Kern MA - 07/05/2024 3:11 PM EDT SEQUENTIAL SCREENINGS The [facility] offers sequential screenings for women who are [...] It will require an appointment with our dialysis biomed technician. This is not an ultrasound performed [...] the above symptoms, contact our office at [phone] and ask to speak with a nurse. After hours, you can call doctors registry at [phone] OR call [facility] at [phone] and ask to have the doctor mission analyst paged. If you consider this an emergency, dial 12-06-1 or go to your nearest emergency department. NEED HELP? Are you dealing with a violent or abusive relationship? Are you a victim of rape or sexual assult? Call [facility] ([place]) 24 hour Crisis Hotline: 636.950.1981 or 036-172-6185. MANUAL Your Guide to a Healthy manual is now on-line. Visit [email or web address] to download your free copy documented in this encounter [facility] 06-09-2024 Telephone encounter Note Please notify patient: + UTI Push fluids Rx for Macrobid sent To notify if symptoms worsening or not improving Radha Hammer APRN.CNP [facility] 06-09-2024 Miscellaneous Notes Please notify patient: + UTI Push fluids Rx for Macrobid sent To notify if symptoms worsening or not improving Radha Hammer APRN.CNP documented in this encounter [facility] 06-07-2024 Winsome Davis LPN - 06/07/2024 1:59 PM EST Please select the following link to access the [facility] Your Guide to a Healthy . [email or web address] documented in this encounter [facility] 06-07-2024 Note HNO ID: [id number] Author: LEANNE AQUINO APRN.APPAREL DESIGNER Service: ? Author Type: Nurse Practitioner Type: Progress Notes Filed: 06/07/2024 15:57 Note Text: Patient declined asset protection agent. *Patient has a history of preeclampsia with [...] Risk Screening: Comp (more content not included)... [facility] 06-07-2024 History of Presen t illness Narrative Patient declined asset protection agent. 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 As applicable, any other physician, advance practice provider, medical student, or other health professional student that will be observing or involved in the sensitive examination for educational or training purposes was discussed with the Patient or Authorized Cage Operator. The Patient or Authorized Cage Operator has agreed to proceed with the sensitive [...] activity, CRL consistent with LMP. Leanne Aquino APRN.APPAREL DESIGNER SBIRT Hillary Fraire was given the 4P's [...] Your guide to a health and the Operations Representative. Reviewed midwifery and risk consulting treasury director services that are available. 2) Screening: Hemoglobin [...] Leanne Aquino APRN.CNP documented in this encounter [facility] 05-24-2024 Instructions Crissy Tom APRN.CN - 05/24/2024 8:10 AM EST As you may already know, morning sickness can often be more appropriately called evening sickness or ifhuz-qinrwe-gm-the-day sickness. While there are the paulino few, [...] medication, Doxylamine, is currently marketed as an fjha-vpu-kgirauc sleeping pill. Ask your practitioner if creating a vitamin B6/Doxylamine combination with andn-vof-fwsykxn medications would be safe for you. Prescription [...] Phenergan, Compazine, Reglan documented in this encounter [facility] 05-24-2024 Note HNO ID: [id number] Author: CRISSY TOM APRN.CNM Service: ? Author Type: Seed Corn Manager Production Type: Progress Notes Filed: 05/24/2024 10:23 Note [...] Living1 SAB0 IAB0 Ectopic0 Multiple0 Live Births1 Grounds Worker History LMP: 03/31/2023 (Exact Date), Having periods Age at Menarche: Age at First : Age at Menopause: Grounds Worker History Comments: Sexual Activity: Yes; Male Contraception: Pill PAST MEDICAL HISTORY Diagnosis Date #[id number] Anemia during in third trimester 11/15/2020 fracture [...] discussed with the Patient or Patient's Authorized Cage Operator. As applicable, any other physician, advance practice provider, medical student, or other health professional student that will be observing or involved in the sensitive examination for educational or training purposes was discussed with the Patient or Authorized Cage Operator. The Patient or Authorized Cage Operator has agreed to proceed with the sensitive [...] RTO 2 weeks for NOB [facility] History of Presen t illness Narrative [...] Living1 SAB0 IAB0 Ectopic0 Multiple0 Live Births1 Grounds Worker History LMP: 03/31/2023 (Exact Date), Having periods Age at Menarche: Age at First : Age at Menopause: Grounds Worker History Comments: Sexual Activity: Yes; Male Contraception: Pill PAST MEDICAL HISTORY Diagnosis Date #[id number] Anemia during in third trimester 11/15/2020 fracture [...] discussed with the Patient or Patient's Authorized Cage Operator. As applicable, any other physician, advance practice provider, medical student, or other health professional student that will be observing or involved in the sensitive examination for educational or training purposes was discussed with the Patient or Authorized Cage Operator. The Patient or Authorized Cage Operator has agreed to proceed with the sensitive [...] Crissy Tom APRN.CNM documented in this encounter [facility] 05-12-2024 Telephone encounter Note LMP 1/3 Approximately 4w5d [facility] 05-12-2024 Miscellaneous Notes LMP 1/3 Approximately 4w5d documented in this encounter [facility] 03-05-2023 Miscellaneous Notes I am happy to [...] Sheyla Moreno APRN.CNM documented in this encounter [facility] 01-20-2023 Miscellaneous Notes Patient aware she needs to schedule annual exam. Requested Prescriptions Pending Prescriptions Disp Refills Norethindrone, Contraceptive, (JENCYCLA) 0.35 mg tablet 90 tablet 0 Sig: Take 1 tablet by mouth once daily. ABRAM SIM RN documented in this encounter [facility] 03-01-2022 Miscellaneous Notes Pt notified. Pavithra James LPN Please refer to medication list safety in for patient. Sheyla Moreno APRN.CNM Please see pt's mychart message and further advise. Pavithra James LPN documented in this encounter [facility] 02-14-2022 Miscellaneous Notes Content Savvyhart message sent to patient in results. Sheyla Moreno APRN.CNM documented in this encounter [facility] 02-11-2022 History of Presen t illness Narrative [...] L1 SAB0 IAB0 Ectopic0 Multiple0 Live Births1 Grounds Worker History LMP: 02/06/2022 (Exact Date), Unknown Age at Menarche: Age at First : Age at Menopause: Grounds Worker History Comments: Sexual Activity: Yes; Male Contraception: Pill PAST MEDICAL HISTORY Diagnosis Date #[id number] Anemia during in third trimester 11/15/2020 fracture [...] external genitalia normal, normal Bartholin's glands, urethra, [place]'s glands, no vulvar lesions, no cervical lesions, [...] Sheyla Moreno APRN.CNM documented in this encounter [facility] 01-28-2022 Miscellaneous Notes Addended by: KELLY BALTAZAR [...] Zena Villanueva Pss documented in this encounter [facility] 01-15-2022 Miscellaneous Notes Refill request received from pharmacy for patients OCP. Patient last seen in office on 02/20/21 for exam. PSS: Please contact patient to schedule annual exam. Eden Lovett RN documented in this encounter [facility] 01-13-2021 Note [facility] Medical Records Department [address] [place] [address] Discharge Summary 01/13/21 0658 MR#: [id number] Acct: [id number] Name: HILLARY FRAIRE Rep #: [id number] : 1990 30 From: Sheyla Moreno CNM PCP: Dr. Chiki Gonzales MD Status:ADM IN Location: [id number] Providers Date of Admission: 01/09/21 Primary Care [...] posthemorrhagic anemia Medications at Discharge Home Medications rlxnwxen-abj-Ln-FA tab PO DAILY 01/08/21 acetaminophen 1,000 mg [...] Score 1-3) Qty: 30 RF: 0 Continued cdppazkt-iwu-He-FA 1 mg Tablet PO DAILY RF: 0 [...] CARLOS Moreno; Dr. Chiki Gonzales MD Signed [facility] 11-15-2020 History of Past i llness Narrative [...] of this encounter (statuses as of 01/15/2022) [facility] History of Past illness Narrative* Problem Noted [...] of this encounter (statuses as of 01/28/2022) [facility]2021 History of Past illness Narrative* Problem Noted [...] of this encounter (statuses as of 01/28/2022) [facility] History of Past illness Narrative* Problem Noted [...] of this encounter (statuses as of 02/11/2022) [facility] History of Past illness Narrative* Problem Noted [...] of this encounter (statuses as of 02/11/2022) [facility] History of Past illness Narrative* Problem Noted [...] of this encounter (statuses as of 02/14/2022) [facility] History of Past illness Narrative* Problem Noted [...] of this encounter (statuses as of 03/01/2022) [facility] History of Past illness Narrative* Problem Noted [...] of this encounter (statuses as of 01/20/2023) [facility] History of Past illness Narrative* Problem Noted [...] of this encounter (statuses as of 03/05/2023) [facility] Diagnosis Encounter for surveillance of contraceptive pills- Primary Surveillance of previously prescribed contraceptive pill [facility] Diagnosis Encounter for gynecological examination (general) (routine) without abnormal findings- Primary Malaise and fatigue Other malaise and fatigue Encounter for surveillance of contraceptive pills Surveillance of previously prescribed contraceptive pill [facility] Diagnosis Encounter for surveillance of contraceptive pills Surveillance of previously prescribed contraceptive pill documented in this encounter [facility] note* Diagnosis Missed menses- Primary Absence of menstruation 6 weeks gestation of state, incidental Spotting in early Spotting complicating , antepartum condition or complication Obesity affecting in first trimester, unspecified obesity type Nausea Nausea alone * Assessment & Plan Note - Crissy Tom APRN.CNM - 05/24/2024 8:58 AM EST Associated Problem(s): Spotting in early * Assessment & Plan Note - Crissy Tmo APRN.CNM - 05/24/2024 8:58 AM EST Associated Problem(s): Obesity affecting in first trimester documented in this encounter [facility] note* Diagnosis Missed menses- Primary Absence of [...] high-risk, unspecified trimester documented in this encounter [facility] note* Diagnosis Missed menses- Primary Absence of menstruation 6 weeks gestation of state, incidental Spotting in early Spotting complicating , antepartum condition or complication Obesity affecting in first trimester, unspecified obesity type Nausea Nausea alone UTI (urinary tract infection) in , antepartum- Primary Infections of genitourinary tract antepartum documented in this encounter [facility] note* Diagnosis Missed menses- Primary Absence of menstruation 6 weeks gestation of ([facility]) state, incidental Spotting in early ([facility]) Spotting complicating , antepartum condition or complication Obesity affecting in first trimester, unspecified obesity type ([facility]) Nausea Nausea alone , supervision, high-risk, unspecified trimester ([facility])- Primary 12 weeks gestation of ([facility]) state, incidental UTI (urinary tract infection) in , antepartum ([facility]) Infections of genitourinary tract antepartum Elevated LFTs Other abnormal blood chemistry documented in this encounter [facility] note* Diagnosis Missed menses- Primary Absence of menstruation 6 weeks gestation of ([facility]) state, incidental Spotting in early ([facility]) Spotting complicating , antepartum condition or complication Obesity affecting in first trimester, unspecified obesity type ([facility]) Nausea Nausea alone Bacteria in urine- Primary Other nonspecific finding on examination of urine [facility] Diagnosis Missed menses- Primary Absence of menstruation 6 weeks gestation of ([facility]) state, incidental Spotting in early ([facility]) Spotting complicating , antepartum condition or complication Obesity affecting in first trimester, unspecified obesity type ([facility]) Nausea Nausea alone 8 weeks gestation of ([facility]) state, incidental documented in this encounter [facility] note* Diagnosis Missed menses- Primary Absence of menstruation 6 weeks gestation of ([facility]) state, incidental Spotting in early ([facility]) Spotting complicating , antepartum condition or complication Obesity affecting in first trimester, unspecified obesity type ([facility]) Nausea Nausea alone , supervision, high-risk, unspecified trimester ([facility])- Primary BMI 38.0-38.9,adult Body Mass Index 38.0-38.9, adult 16 weeks gestation of ([facility]) state, incidental UTI (urinary tract infection) in , antepartum ([facility]) Infections of genitourinary tract antepartum documented in this encounter [facility] note* Diagnosis Missed menses- Primary Absence of menstruation 6 weeks gestation of ([facility]) state, incidental Spotting in early ([facility]) Spotting complicating , antepartum condition or complication Obesity affecting in first trimester, unspecified obesity type ([facility]) Nausea Nausea alone UTI (urinary tract infection) in , antepartum (HCC)- Primary Infections of genitourinary tract antepartum [facility] Diagnosis Missed menses- Primary Absence of menstruation 6 weeks gestation of (HCC) state, incidental Spotting in early (HCC) Spotting complicating , antepartum condition or complication Obesity affecting in first trimester, unspecified obesity type (HCC) Nausea Nausea alone Supervision of high risk in second trimester ([facility])- Primary Unspecified high-risk Chronic hypertension in (HCC) Benign essential hypertension complicating , childbirth, and the puerperium, unspecified as to episode of care Obesity in ([facility]) Obesity complicating , childbirth, or the puerperium, unspecified as to episode of care or not applicable History of pre-eclampsia UTI (urinary tract infection) in , antepartum (HCC) Infections of genitourinary tract antepartum 21 weeks gestation of ([facility]) state, incidental * Assessment & Plan Note [...] UTI (urinary tract infection) in , antepartum ([facility]) WALKER today- did show nitrates on dip. May consider Prophylactic treatment remainder of - will await culture. Orders: BACTERIAL CULTURE, URINE UA DIP, URINE (POC) [facility]* Diagnosis Missed menses- Primary Absence of menstruation 6 weeks gestation of ([facility]) state, incidental Spotting in early ([facility]) Spotting complicating , antepartum condition or complication Obesity affecting in first trimester, unspecified obesity type ([facility]) Nausea Nausea alone Encounter for anatomic survey ([facility])- Primary Encounter for anatomic survey 8 weeks gestation of ([facility]) state, incidental Obesity affecting in second trimester, unspecified obesity type ([facility]) Supervision of high risk in second trimester ([facility])- Primary Unspecified high-risk Chronic hypertension in ([facility]) Benign essential hypertension complicating , childbirth, and the puerperium, unspecified as to episode of care Obesity in ([facility]) Obesity complicating , childbirth, or the puerperium, unspecified as to episode of care or not applicable History of pre-eclampsia UTI (urinary tract infection) in , antepartum ([facility]) Infections of genitourinary tract antepartum 21 weeks gestation of ([facility]) state, incidental documented in this encounter [facility] note* Diagnosis Missed menses- Primary Absence of menstruation 6 weeks gestation of ([facility]) state, incidental Spotting in early ([facility]) Spotting complicating , antepartum condition or complication Obesity affecting in first trimester, unspecified obesity type ([facility]) Nausea Nausea alone Supervision of high risk in second trimester ([facility])- Primary Unspecified high-risk Chronic hypertension in (HCC) Benign essential hypertension complicating , childbirth, and the puerperium, unspecified as to episode of care Obesity in (HCC) Obesity complicating , childbirth, or the puerperium, unspecified as to episode of care or not applicable History of pre-eclampsia UTI (urinary tract infection) in , antepartum ([facility]) Infections of genitourinary tract antepartum 21 weeks gestation of ([facility]) state, incidental UTI (urinary tract infection) in , antepartum ([facility]) Infections of genitourinary tract antepartum [facility] Diagnosis Missed menses- Primary Absence of menstruation 6 weeks gestation of ([facility]) state, incidental Spotting in early ([facility]) Spotting complicating , antepartum condition or complication Obesity affecting in first trimester, unspecified obesity type ([facility]) Nausea Nausea alone Supervision of high risk in second trimester ([facility])- Primary Unspecified high-risk Chronic hypertension in ([facility]) Benign essential hypertension complicating , childbirth, and the puerperium, unspecified as to episode of care Obesity in ([facility]) Obesity complicating , childbirth, or the puerperium, unspecified as to episode of care or not applicable History of pre-eclampsia UTI (urinary tract infection) in , antepartum ([facility]) Infections of genitourinary tract antepartum 21 weeks gestation of ([facility]) state, incidental Supervision of high risk in second trimester ([facility])- Primary Unspecified high-risk UTI (urinary tract infection) in , antepartum ([facility]) Infections of genitourinary tract antepartum Chronic hypertension in ([facility]) Benign essential hypertension complicating , childbirth, and the puerperium, unspecified as to episode of care 24 weeks gestation of ([facility]) state, incidental * Assessment & Plan Note - Adina Krueger MD - 09/27/2024 3:44 PM EDT Associated Problem(s): UTI (urinary tract infection) in , antepartum ([facility]) just finished antiobiotics Orders: BACTERIAL CULTURE, URINE * Assessment & Plan Note - Adina Krueger MD - 09/27/2024 3:44 PM EDT Associated Problem(s): Chronic hypertension in (HCC) checks BP at homew Orders: BACTERIAL CULTURE, URINE documented in this encounter [facility] note* Diagnosis Missed menses- Primary Absence of menstruation 6 weeks gestation of (HCC) state, incidental Spotting in early (HCC) Spotting complicating , antepartum condition or complication Obesity affecting in first trimester, unspecified obesity type ([facility]) Nausea Nausea alone Supervision of high risk in second trimester ([facility])- Primary Unspecified high-risk Chronic hypertension in (HCC) Benign essential hypertension complicating , childbirth, and the puerperium, unspecified as to episode of care Obesity in ([facility]) Obesity complicating , childbirth, or the puerperium, unspecified as to episode of care or not applicable History of pre-eclampsia UTI (urinary tract infection) in , antepartum ([facility]) Infections of genitourinary tract antepartum 21 weeks gestation of ([facility]) state, incidental Supervision of high risk in second trimester ([facility])- Primary Unspecified high-risk UTI (urinary tract infection) in , antepartum (HCC) Infections of genitourinary tract antepartum Chronic hypertension in (HCC) Benign essential hypertension complicating , childbirth, and the puerperium, unspecified as to episode of care 24 weeks gestation of ([facility]) state, incidental UTI (urinary tract infection) in , antepartum ([facility])- Primary Infections of genitourinary tract antepartum Supervision of high risk in second trimester ([facility]) Unspecified high-risk Chronic hypertension in (HCC) Benign essential hypertension complicating , childbirth, and the puerperium, unspecified as to episode of care 28 weeks gestation of ([facility]) state, incidental documented in this encounter [facility] note* Diagnosis Missed menses- Primary Absence of menstruation 6 weeks gestation of (HCC) state, incidental Spotting in early (HCC) Spotting complicating , antepartum condition or complication Obesity affecting in first trimester, unspecified obesity type ([facility]) Nausea Nausea alone Supervision of high risk in second trimester ([facility])- Primary Unspecified high-risk Chronic hypertension in (HCC) Benign essential hypertension complicating , childbirth, and the puerperium, unspecified as to episode of care Obesity in (HCC) Obesity complicating , childbirth, or the puerperium, unspecified as to episode of care or not applicable History of pre-eclampsia UTI (urinary tract infection) in , antepartum ([facility]) Infections of genitourinary tract antepartum 21 weeks gestation of ([facility]) state, incidental Supervision of high risk in second trimester ([facility])- Primary Unspecified high-risk UTI (urinary tract infection) in , antepartum ([facility]) Infections of genitourinary tract antepartum Chronic hypertension in ([facility]) Benign essential hypertension complicating , childbirth, and the puerperium, unspecified as to episode of care 24 weeks gestation of ([facility]) state, incidental Encounter for ultrasound to check growth ([facility])- Primary Encounter for routine screening for malformation using ultrasonics Chronic hypertension in ([facility]) Benign essential hypertension complicating , childbirth, and the puerperium, unspecified as to episode of care 28 weeks gestation of ([facility]) state, incidental [facility] Diagnosis Missed menses- Primary Absence of menstruation 6 weeks gestation of ([facility]) state, incidental Spotting in early ([facility]) Spotting complicating , antepartum condition or complication Obesity affecting in first trimester, unspecified obesity type ([facility]) Nausea Nausea alone Supervision of high risk in second trimester ([facility])- Primary Unspecified high-risk Chronic hypertension in ([facility]) Benign essential hypertension complicating , childbirth, and the puerperium, unspecified as to episode of care Obesity in ([facility]) Obesity complicating , childbirth, or the puerperium, unspecified as to episode of care or not applicable History of pre-eclampsia UTI (urinary tract infection) in , antepartum ([facility]) Infections of genitourinary tract antepartum 21 weeks gestation of ([facility]) state, incidental UTI (urinary tract infection) in , antepartum (HCC)- Primary Infections of genitourinary tract antepartum Supervision of high risk in second trimester (HCC)- Primary Unspecified high-risk UTI (urinary tract infection) in , antepartum (HCC) Infections of genitourinary tract antepartum Chronic hypertension in (HCC) Benign essential hypertension complicating , childbirth, and the puerperium, unspecified as to episode of care 24 weeks gestation of ([facility]) state, incidental documented in this encounter [facility] note* Diagnosis Missed menses- Primary Absence of menstruation 6 weeks gestation of ([facility]) state, incidental Spotting in early (HCC) Spotting complicating , antepartum condition or complication Obesity affecting in first trimester, unspecified obesity type ([facility]) Nausea Nausea alone Supervision of high risk [...] genitourinary tract antepartum 21 weeks gestation of ([facility]) state, incidental Supervision of high risk in second trimester ([facility])- Primary Unspecified high-risk UTI (urinary tract infection) in , antepartum (HCC) Infections of genitourinary tract antepartum Chronic hypertension in (HCC) Benign essential hypertension complicating , childbirth, and the puerperium, unspecified as to episode of care 24 weeks gestation of ([facility]) state, incidental Obesity affecting in first trimester, unspecified obesity type ([facility])- Primary Chronic hypertension in (HCC) Benign essential hypertension complicating , childbirth, and the puerperium, unspecified as to episode of care documented in this encounter [facility] note* Diagnosis Missed menses- Primary Absence of menstruation 6 weeks gestation of ([facility]) state, incidental Spotting in early (HCC) Spotting complicating , antepartum condition or complication Obesity affecting in first trimester, unspecified obesity type ([facility]) Nausea Nausea alone Supervision of high risk [...] (HCC) state, incidental documented in this encounter [facility] for visit Narrative* Diagnostic Procedure Only (Routine) - Closed Specialty Diagnoses / Procedures Referred By Omid robb Referred To Contact [facility] Diagnoses 8 weeks gestation of ([facility]) Procedures OBSTETRIC ULTRASOUND WHI US PREG UTERUS AFTER 1ST TRIMEST GESTATION Leanne Aquino APRN.APPAREL DESIGNER [address] [place] [address] Phone: tel: fax: [address] [phone] Referral ID Status Reason Start Date Expiration Date V isits Requested Visits Authorized [id number] Closed Auto-Generate d Referral 06/21/2024 04/06/2025 1 1 [facility] for visit Narrative* Diagnostic Procedure Only (Routine) - Authorized Specialty Diagnoses / Procedures Referred By Omid robb Referred To Contact [facility] Diagnoses Chronic hypertension in (HCC) 21 weeks gestation of (HCC) Procedures OBSTETRIC ULTRASOUND WHI US PREG UTERUS AFTER 1ST TRIMEST GESTATION Elli Barros MD [address] [place] [address] Phone: tel: fax: [facility] [address] [place] [address] Referral ID Status Reason Start Date Expiration Date Visits Requested Visits Authorized [id number] Authorized Auto-Generat ed Referral 04/07/2024 04/06/2025 5 5 [facility] Assessments Diagnosis Threatened miscarriage- Primary Threatened , [...] or prosecute any alcohol or drug abuse patient.[facility] the event this information is protected by the Federal Confidentiality of Alcohol and Drug Abuse Patient Records regulations: The Federal rules restrict any use of the information to criminally investigate or prosecute any alcohol or drug abuse patient.[facility] the event this information is protected by the Federal Confidentiality of Alcohol and Drug Abuse Patient Records regulations: The Federal rules restrict any use of the information to criminally investigate or prosecute any alcohol or drug abuse patient.[facility] the event this information is protected by the Federal Confidentiality of Alcohol and Drug Abuse Patient Records regulations: The Federal rules restrict any use of the information to criminally investigate or prosecute any alcohol or drug abuse patient.[facility] ShawIn the event this information is protected by the Federal Confidentiality of Alcohol and Drug Abuse Patient Records regulations: The Federal rules restrict any use of the information to criminally investigate or prosecute any alcohol or drug abuse patient.[facility] ShawIn the event this information is protected by the Federal Confidentiality of Alcohol and Drug Abuse Patient Records regulations: The Federal rules restrict any use of the information to criminally investigate or prosecute any alcohol or drug abuse patient.[facility] ShawIn the event this information is protected by the Federal Confidentiality of Alcohol and Drug Abuse Patient Records regulations: The Federal rules restrict any use of the information to criminally investigate or prosecute any alcohol or drug abuse patient.[facility] ShawIn the event this information is protected by the Federal Confidentiality of Alcohol and Drug Abuse Patient Records regulations: The Federal rules restrict any use of the information to criminally investigate or prosecute any alcohol or drug abuse patient.[facility] ShawIn the event this information is protected by the Federal Confidentiality of Alcohol and Drug Abuse Patient Records regulations: The Federal rules restrict any use of the information to criminally investigate or prosecute any alcohol or drug abuse patient.[facility] ShawIn the event this information is protected by the Federal Confidentiality of Alcohol and Drug Abuse Patient Records regulations: The Federal rules restrict any use of the information to criminally investigate or prosecute any alcohol or drug abuse patient.[facility] ShawIn the event this information is protected by the Federal Confidentiality of Alcohol and Drug Abuse Patient Records regulations: The Federal rules restrict any use of the information to criminally investigate or prosecute any alcohol or drug abuse patient.[facility] ShawIn the event this information is protected by the Federal Confidentiality of Alcohol and Drug Abuse Patient Records regulations: The Federal rules restrict any use of the information to criminally investigate or prosecute any alcohol or drug abuse patient.[facility] ShawIn the event this information is protected by the Federal Confidentiality of Alcohol and Drug Abuse Patient Records regulations: The Federal rules restrict any use of the information to criminally investigate or prosecute any alcohol or drug abuse patient.[facility] ShawIn the event this information is protected by the Federal Confidentiality of Alcohol and Drug Abuse Patient Records regulations: The Federal rules restrict any use of the information to criminally investigate or prosecute any alcohol or drug abuse patient.[facility] ShawIn the event this information is protected by the Federal Confidentiality of Alcohol and Drug Abuse Patient Records regulations: The Federal rules restrict any use of the information to criminally investigate or prosecute any alcohol or drug abuse patient.[facility] ShawIn the event this information is protected by the Federal Confidentiality of Alcohol and Drug Abuse Patient Records regulations: The Federal rules restrict any use of the information to criminally investigate or prosecute any alcohol or drug abuse patient.[facility] ShawIn the event this information is protected by the Federal Confidentiality of Alcohol and Drug Abuse Patient Records regulations: The Federal rules restrict any use of the information to criminally investigate or prosecute any alcohol or drug abuse patient.[facility] ShawIn the event this information is protected by the Federal Confidentiality of Alcohol and Drug Abuse Patient Records regulations: The Federal rules restrict any use of the information to criminally investigate or prosecute any alcohol or drug abuse patient.[facility] ShawIn the event this information is protected by the Federal Confidentiality of Alcohol and Drug Abuse Patient Records regulations: The Federal rules restrict any use of the information to criminally investigate or prosecute any alcohol or drug abuse patient.[facility] ShawIn the event this information is protected by the Federal Confidentiality of Alcohol and Drug Abuse Patient Records regulations: The Federal rules restrict any use of the information to criminally investigate or prosecute any alcohol or drug abuse patient.[facility] ShawIn the event this information is protected by the Federal Confidentiality of Alcohol and Drug Abuse Patient Records regulations: The Federal rules restrict any use of the information to criminally investigate or prosecute any alcohol or drug abuse patient.[facility] ShawIn the event this information is protected by the Federal Confidentiality of Alcohol and Drug Abuse Patient Records regulations: The Federal rules restrict any use of the information to criminally investigate or prosecute any alcohol or drug abuse patient.[facility] ShawIn the event this information is protected by the Federal Confidentiality of Alcohol and Drug Abuse Patient Records regulations: The Federal rules restrict any use of the information to criminally investigate or prosecute any alcohol or drug abuse patient.[facility] ShawIn the event this information is protected by the Federal Confidentiality of Alcohol and Drug Abuse Patient Records regulations: The Federal rules restrict any use of the information to criminally investigate or prosecute any alcohol or drug abuse patient.[facility] ShawIn the event this information is protected by the Federal Confidentiality of Alcohol and Drug Abuse Patient Records regulations: The Federal rules restrict any use of the information to criminally investigate or prosecute any alcohol or drug abuse patient.[facility] ShawIn the event this information is protected by the Federal Confidentiality of Alcohol and Drug Abuse Patient Records regulations: The Federal rules restrict any use of the information to criminally investigate or prosecute any alcohol or drug abuse patient.[facility] ShawIn the event this information is protected by the Federal Confidentiality of Alcohol and Drug Abuse Patient Records regulations: The Federal rules restrict any use of the information to criminally investigate or prosecute any alcohol or drug abuse patient.[facility] ShawIn the event this information is protected by the Federal Confidentiality of Alcohol and Drug Abuse Patient Records regulations: The Federal rules restrict any use of the information to criminally investigate or prosecute any alcohol or drug abuse patient.[facility] ShawIn the event this information is protected by the Federal Confidentiality of Alcohol and Drug Abuse Patient Records regulations: The Federal rules restrict any use of the information to criminally investigate or prosecute any alcohol or drug abuse patient.[facility] ShawIn the event this information is protected by the Federal Confidentiality of Alcohol and Drug Abuse Patient Records regulations: The Federal rules restrict any use of the information to criminally investigate or prosecute any alcohol or drug abuse patient.[facility] ShawIn the event this information is protected by the Federal Confidentiality of Alcohol and Drug Abuse Patient Records regulations: The Federal rules restrict any use of the information to criminally investigate or prosecute any alcohol or drug abuse patient.[facility] ShawIn the event this information is protected by the Federal Confidentiality of Alcohol and Drug Abuse Patient Records regulations: The Federal rules restrict any use of the information to criminally investigate or prosecute any alcohol or drug abuse patient.[facility] ShawIn the event this information is protected by the Federal Confidentiality of Alcohol and Drug Abuse Patient Records regulations: The Federal rules restrict any use of the information to criminally investigate or prosecute any alcohol or drug abuse patient.[facility] Reason for Visit (unrecogniz ed section and content) Reason Comments Care + test Reason Comments Refill Request Reason Onset Date Comments Refill Request 01/28/2022 Reason Comments Well Woman Specialty Diagnoses / Procedures Referred By Contac t Referred To Contact [facility] / [facility] Diagnoses Annual Exam Procedures Annual Exam Sheyla Moreno APRN.CNM [address] [place] [address] [address] Referral ID Status Reason Start Date Expiration Date Visits Requested Visits Authorized [id number] Denied Financial Clearance Required - OON Payor OON Notification Letter Clearance Not Met - Admin/Vp Patient/D irector Advise to Postpone/Resched ule or Not [...] Referred By Contac t Referred To Contact [facility] Diagnoses 8 weeks gestation of (HCC) Procedures OBSTETRIC ULTRASOUND WHI US PREG UTERUS AFTER 1ST TRIMEST GESTATION Leanne Aquino APRN.APPAREL DESIGNER [address] [place] [address] Phone: tel: fax: [address] [address] Referral ID Status Reason Start Date Expiration Date V isits Requested Visits Authorized [id number] Closed Auto-Generate d Referral 08/20/2024 04/06/2025 1 1 Reason Comments Breast Pump Specialty Diagnoses / Procedures Referred By Contac t Referred To Contact [facility] Diagnoses Chronic hypertension in (HCC) 21 weeks gestation of (HCC) Procedures OBSTETRIC ULTRASOUND WHI US PREG UTERUS AFTER 1ST TRIMEST GESTATION Elli Barros MD [address] [place] [address] Phone: tel: fax: [facility] [address] [place] [address] Referral ID Status Reason Start Date Expiration Date Visits Requested Visits Authorized [id number] Authorized Auto-Generat ed Referral 04/07/2024 04/06/2025 5 [...] DATE CREATED AUTHOR 05/20/2021 [facility] DATE CREATED AUTHOR AUTHOR'S ORGANIZ ATION 11/28/2024 [facility] Care Teams (unrecognized sec tion and content) Agriculture Technician Relationship Specialty Start Date End Date Chiki Gonzales MD PCP - General Family Medicine 08/08/12 Agriculture Technician Relationship Specialty Start Date End Date Chiki Gonzales MD PCP - General Family Medicine 08/08/12 Agriculture Technician Relationship Specialty Start Date End Date Chiki Gonzales MD PCP - General Family Medicine 08/08/12 Agriculture Technician Relationship Specialty Start Date End Date Chiki Gonzales MD PCP - General Family Medicine 08/08/12 Agriculture Technician Relationship Specialty Start Date End Date Chiki Gonzales MD PCP - General Family Medicine 08/08/12 Agriculture Technician Relationship Specialty Start Date End Date Chiki Gonzales MD PCP - General Family Medicine 08/08/12 Agriculture Technician Relationship Specialty Start Date End Date Chiki Gonzales MD PCP - General Family Medicine 08/08/12 Agriculture Technician Relationship Specialty Start Date End Date Chiki Gonzales MD PCP - General Family Medicine 08/08/12 Agriculture Technician Relationship Specialty Start Date End Date Chiki Gonzales MD PCP - General Family Medicine 08/08/12 Agriculture Technician Relationship Specialty Start Date End Date Chiki Gonzales MD PCP - General Family Medicine 08/08/12 Agriculture Technician Relationship Specialty Start Date End Date Chiki Gonzales MD PCP - General Family Medicine 08/08/12 Agriculture Technician Relationship Specialty Start Date End Date Chiki Gonzales MD PCP - General Family Medicine 08/08/12 Agriculture Technician Relationship Specialty Start Date End Date Chiki Gonzales MD PCP - General Family Medicine 08/08/12 Agriculture Technician Relationship Specialty Start Date End Date Chiki Gonzales MD PCP - General Family Medicine 08/08/12 Agriculture Technician Relationship Specialty Start Date End Date Chiki Gonzales MD PCP - General Family Medicine 08/08/12 Agriculture Technician Relationship Specialty Start Date End Date Chiki Gonzales MD PCP - General Family Medicine 08/08/12 Agriculture Technician Relationship Specialty Start Date End Date Chiki Gonzales MD PCP - General Family Medicine 08/08/12 Agriculture Technician Relationship Specialty Start Date End Date Chiki Gonzales MD PCP - General Family Medicine 08/08/12 Agriculture Technician Relationship Specialty Start Date End Date Chiki Gonzales MD PCP - General Family Medicine 08/08/12 Agriculture Technician Relationship Specialty Start Date End Date Chiki Gonzales MD PCP - General Family Medicine 08/08/12 Agriculture Technician Relationship Specialty Start Date End Date Chiki Gonzales MD PCP - General Family Medicine 08/08/12 Agriculture Technician Relationship Specialty Start Date End Date Chiki Gonzales MD PCP - General Family Medicine 08/08/12 Agriculture Technician Relationship Specialty Start Date End Date Chiki Gonzales MD PCP - General Family Medicine 08/08/12 Agriculture Technician Relationship Specialty Start Date End Date Chiki Gonzales MD PCP - General Family Medicine 08/08/12 Agriculture Technician Relationship Specialty Start Date End Date Chiki Gonzales MD PCP - General Family Medicine 08/08/12 Agriculture Technician Relationship Specialty Start Date End Date Chiki Gonzales MD PCP - General Family Medicine 08/08/12 Agriculture Technician Relationship Specialty Start Date End Date Chiki Gonzales MD PCP - General Family Medicine 08/08/12 Agriculture Technician Relationship Specialty Start Date End Date Chiki Gonzales MD PCP - General Family Medicine 08/08/12 Agriculture Technician Relationship Specialty Start Date End Date Chiki Gonzales MD PCP - General Family Medicine 08/08/12 Agriculture 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 [facility]. provides no warranty or guarantee of the accuracy or completeness of information in this document.
[2024-12-05] VITALS (8 sets, daily range): BP systolic 115–127; BP diastolic 57–60; PULSE 75–89; RESP 16–18; TEMP 36.6–37.1; O2SAT 97–100
[2024-12-05] MEDS: 0.9% Saline Lock 10 ML Syringe IV ×4 (05:01→22:09)
--- NOTE | 2024-12-05 09:42 | PCM.CONS.GEN ---
Assessment & Plan Assessment/Plan (1) Ureteropelvic junction calculus: (2) Hydronephrosis: (3) Recurrent UTI (urinary tract infection) complicating : PLAN: Plan After discussing all of the risks and options for intervention, the patient family and I have agreed to proceed with cystoscopy and left ureteral stent insertion. We discussed the risks of stent migration and calcification in addition to need for pain management and continued infection Continue antibiotics and await urine culture Will need to be discharged home on nightly antibiotics until after baby is born We will plan for stone intervention as an outpatient in approximately 7 to 8 weeks Aggressive fluid hydration HPI Consult Data Date of Consult: 12/05/24 HPI Narrative Reason for Consultation: Left ureteropelvic junction stone HPI Narrative: ANA DAVIES, is a 34 F who developed acute onset left flank pain with nausea and vomiting yesterday morning. She has a history of kidney stones having passed 1 approximately 10 years ago. She has never had surgical intervention for stones. Throughout this she has had bacteriuria but no symptoms of urinary tract infection. She denies at this time dysuria, hematuria, incontinence or other lower urinary tract symptoms. She does report that her urine has been very concentrated recently. This morning she is feeling better having been given intravenous pain control. [facility] Medical History (Updated 12/05/24 @ 09:[address] Latesha Elena MD) Hydronephrosis Ureteropelvic junction calculus SROM (spontaneous rupture of membranes) Anxiety Home Medications ?Medication ?Instructions ?Recorded ?Last Taken ?Type [id number] 1 mg 1 tab PO DAILY 01/08/21 01/08/21 10:00 History tablet acetaminophen 500 mg tablet 1,000 mg (2 x 500 mg) PO Q6H PRN 01/13/21 Unknown Rx PRN Pain 1-10 Or Fever #0 tabs aspirin 81 mg capsule 81 mg PO DAILY 12/04/24 Unknown History nitrofurantoin 100 mg PO DAILY UTI 12/04/24 Unknown History monohydrate/macrocrystals 100 mg capsule (Macrobid) Allergy/AdvReac Type Severity Reaction Status Date / Time No Known Allergies Allergy Verified 12/04/24 11:01 Surgical History H/O wisdom tooth extraction Social History Smoking Status: Former smoker ROS Constitutional Constitutional: Reports systems reviewed and no addt'l complaints, except as documented; Denies chills or fever(s) Eyes Eyes: Reports systems reviewed and no addt'l complaints, except as documented ENT HEENT: Reports systems reviewed and no addt'l complaints, except as documented Cardiovascular Cardiovascular: Denies chest pain or dizziness Respiratory/Chest Respiratory/Chest: Denies cough, dyspnea, dyspnea on exertion, shortness of breath at rest or shortness of breath with exertion Gastrointestinal Gastrointestinal: Reports abdominal pain, nausea, vomiting and other Details: left lower groin pain that is wrapping around to left side of back/flank ; Denies diarrhea Genitourinary Genitourinary: Reports abdominal discomfort; Denies dysuria, hematuria, urinary frequency or urinary incontinence Musculoskeletal Musculoskeletal: Denies limited range of motion Integumentary Integumentary: Reports systems reviewed and no addt'l complaints, except as documented Neurologic Neurologic: Reports systems reviewed and no addt'l complaints, except as documented Psychiatric Psychiatric: Reports systems reviewed and no addt'l complaints, except as documented Endocrine Endocrinology: Reports systems reviewed and no addt'l complaints, except as documented Hematologic/Lymphatic Hematologic/Lymphatic: Reports systems reviewed and no addt'l complaints, except as documented Allergic/Immunologic Allergic/Immunologic: Reports systems reviewed and no addt'l complaints, except as documented Physical Exam Const alert, oriented x3 and no apparent distress Constitutional Narrative: Visibly in pain/discomfort, unable to sit still in the bed General Appearance: cooperative Orientation / Consciousness: awake, oriented to person, oriented to place and oriented to time Exam Limitations: no limitations HEENT normocephalic Head and Scalp: normal to inspection, normocephalic and atraumatic Face and Sinus: normal facial exam Eyes General Eye: normal appearance of both eyes Neck General: normal visual inspection and trachea midline Chest inspection of chest normal Chest: symmetrical chest wall rise Resp normal respiratory effort and normal air movement Cardio regular rate GI normal to inspection, nondistended, normoactive bowel sounds and non-tender Palpation: other Other Details: soft, non tender. Gravid. Bladder / Kidney Exam: CVA tenderness left Back/Spine General Back: CVA tenderness left Extremity normal to inspection Skin no rashes or lesions noted, no jaundice, no petechiae and no mottling Neuro oriented x3, CN's II-XII intact bilaterally and moves all extremities Sensorium / Orientation: awake, alert and oriented to person Motor Exam: clonus absent Deep Tendon Reflexes: Rt Patellar (L4): 2+ and Lt Patellar (L4): 2+ Psych mental status grossly normal, thought process normal, cooperative and affect normal Lab / Micro Data 12/04/24 11:30 12/04/24 15:54 Labs: Laboratory Results - last 24 hr 12/04/24 11:20: Urine Color Yellow, Urine Clarity Sl. Cloudy, Urine pH 7.0, Ur Specific [place] 1.015, Urine Protein 15 H, Urine Glucose (UA) Normal, Urine Ketones Negative, Urine Occult Blood 25 H, Urine Nitrite Negative, Urine Bilirubin Negative, Urine Urobilinogen 1 H, Ur Leukocyte Esterase 25 H, Urine RBC 0-5 SEEN, Urine WBC 5-10 SEEN, Ur Squamous Epith Cells 0-5 SEEN, Urine Bacteria 0 SEEN, Urine Mucus 0 SEEN 12/04/24 11:30: WBC 13.8 H, RBC 3.57 L, Hgb 11.0 L, Hct 32.2 L, MCV 90.2, MCH 30.8, MCHC 34.2, RDW Std Deviation 41.8, RDW Coeff of Anabela 12.7, Plt Count 185, MPV 11.8, Immature Gran % (Auto) 0.900, Neut % (Auto) 81.3 H, Lymph % (Auto) 12.0 L, Travis % (Auto) 5.4, Eos % (Auto) 0.1, Baso % (Auto) 0.3, Absolute Neuts (auto) 11.2 H, Absolute Lymphs (auto) 1.65, Nucleated RBC % 0 12/04/24 15:54: Creatinine 1.00, Estim Creat Clear Calc 118.54, Est GFR (MDRD) Non-Af 76 Imaging Radiology Impression Abdomen/Pelvis CT 12/04/24 12:51 IMPRESSION: Obstructing stone left UPJ measuring 16 x 11 mm. Left-sided hydronephrosis. Reading [facility] Charges/Coding Urology Urology: Attention Carole
[2024-12-05] MEDS: Cefepime HCl 1 GM in 0.9% Normal Saline (50mL MB+) 50 ML IV (11:54)
--- NOTE | 2024-12-05 13:33 | OB.TRI.HP_ITS ---
HPI - General General Date of Admission: 12/04/24 Date of Service: 12/05/24 Chief Complaint: kidney stone, flank pain, recurrent UTI at 34 weeks HPI Narrative This is her daily progress note. ANA DAVIES, is a 34 F who presents @ 34+ weeks w/ c/o flank pain. Dx w/ UTI, likely pylo and antibiotics started based on sensitivities from last urine culture. CT ordered and kidney stone noted. Patient initially placed under observation for suspected pylo. Maternal Data Information Final BRITTANY: 01[birth year]/25 Gestational age: 34 2/7 PFSH PFS Medical History (Updated 12/05/24 @ 13:[address] Naina Granados MD) Hydronephrosis Ureteropelvic junction calculus SROM (spontaneous rupture of membranes) Anxiety Home Medications ?Medication ?Instructions ?Recorded ?Last Taken ?Type vznvdxwv-vkd-Lm-FA 1 mg 1 tab PO DAILY pregna ncy 01/08/21 01/08/21 10:00 History tablet acetaminophen 500 mg tablet 1,000 mg (2 x 500 mg) PO Q 6H PRN 01/13/21 Unknown Rx PRN Pain 1-10 Or Fever #0 tabs aspirin 81 mg capsule 81 mg PO DAILY 12/04/24 Unkn own History nitrofurantoin 100 mg PO DAILY UTI 12/04/24 Unknown History monohydrate/macrocrystals 100 mg capsule (Macrobid) Allergy/AdvReac Type Severity Reaction Status Date / Time No Known Allergies Allergy Verified 12/04/24 11:01 Surgical History H/O wisdom tooth extraction Social History Smoking Status: Former smoker History Elective abortions Hx Para 0 Spontaneous abortions Hx # Term Pregnancies Ectopic pregnancies Hx # Pregnancies Multiple births # of living children Physical Exam Const alert and no apparent distress General Appearance: cooperative Orientation / Consciousness: awake HEENT normocephalic GI GI Narrative: abd soft, gravid, non tender, fundus appropriate for gestational age Narrative: CVA tenderness right side Extremity Extremity Narrative: trace edema, symmetrical NST FHR Rate Baby A Baseline: 140 Variability:: Moderate Accelerations:: 15 x 15 Decelerations:: None NST Reactive:: Yes Uterine Activity:: irreg ctxs Assessment & Plan (1) Hydronephrosis: QUALIFIERS: Hydronephrosis type: with ureteropelvic junction obstruction Qualified Code(s): Q62.11 - Congenital occlusion of ureteropelvic junction COMMENT: plan stent tomorrow w/ urology then d/c home (2) Ureteropelvic junction calculus: COMMENT: see urology consult, NPO after midnight in anticipation of surgery. Increase IVF to `100cc/hr when NPO (3) 34 weeks gestation of : (4) Recurrent UTI (urinary tract infection) complicating : COMMENT: Ecoli UTI in . Macrobid 100mg PO once daily for prophylaxis. Will likely change antibiotics when d/rosemary home (5) Pyelonephritis affecting : COMMENT: Cefepime 1gr IVPB. Will transition to oral Bactrim. CT showed stone and hydronephrosis. Consult w/ Dr. Elena-plan for surgery today With stone and plan for surgery and suspected pylo- culture pending will change status to full admission. (6) High risk multigravida in third trimester: COMMENT: NSt daily, monitor for signs/symptoms of labor. Encouraged to push fluids, ambulate frequently. SCDs for VTE prophylaxis
[2024-12-05] MEDS: Lactated Ringers 1,000 ML 125 ML IV (16:42)
[2024-12-06] VITALS (24 sets, daily range): BP systolic 110–136; BP diastolic 54–79; PULSE 84–112; RESP 16–20; TEMP 36.3–37.7; O2SAT 96–100
[2024-12-06] MEDS: Lactated Ringers 1,000 ML 125 ML IV ×2 (02:28→11:40)
[2024-12-06] MEDS: 0.9% Saline Lock 10 ML Syringe IV ×2 (02:36→06:17)
[2024-12-06 05:56] LABS: Hematocrit 27.3 % (37-47); Hemoglobin 9.1 g/dL (12.0-15.0); Immature Granulocytes Count 0.130 X10^3/uL (0.0-0.0); Mean Corp Hgb Conc 33.3 g/dL (32-36); Mean Corpuscular Volume 91.0 fL (81-99); Mean Platelet Vol. 11.9 fl (6.2-12.0); NRBC Flagged by Analyzer 0 % (0-5); Platelet Count 167 K/mm3 (150-450); RBC Distribution Width CV 13.1 % (11.6-14.6); RBC Distribution Width SD 42.8 fl (35.1-43.9); Red Blood Count 3.00 M/mm3 (4.2-5.4); White Blood Count 14.8 K/mm3 (4.4-11.0)
--- NOTE | 2024-12-06 07:01 | PCM.PRE.AN2 ---
ASA Classification* ASA Classification ASA Classification: 2 and E Assessment & Plan Anesthesia* Anesthesia Assessment Anesthesia Assessment: Discussed sedation and/or anesthesia options, risks, benefits, and alternatives with patient/parents/legal guardian/POA. Questions invited. The patient/parents/legal guardian/POA seems to understand and agrees to proceed with anesthesia plan. Reviewed the physical assessment, medical history, allergy history and patient home medications list prior to surgery/procedure/anesthetic and documented any changes. Performed airway and anesthesia risk assessments. Procedural Plan Add'l anesthesia plan details: Discussed anesthetic options for Cysto/Left ureteral stent placement with current 34 wk healthy . Risks/benefits discussed. Pt agreeable to spinal anesthetic with light anxiolysis. Discussed GETA as a back-up plan. Questions answered with patient and . They agree to proceed. Anesthesia Type Anesthesia Type: Spinal History Source History Obtained from:: Patient and Chart Anesthesia Focused Assessment* Temperature: 99.8 F Pulse Rate: 88 Blood Pressure: 115/56 Respiratory Rate: 18 Pulse Ox: 99 Oxygen Delivery Method: Room Air Airway Assessment Mouth opens: >3 cm Mallampati Score: I Teeth Condition: Intact Neck Range of motion (ROM): Full ROM Labs Anesthesia Preop lab: CBC WBC 14.8 K/mm3 (4.4-11.0) H 12/06/24 05:45 12/06/24 RBC 3.00 M/mm3 (4.2-5.4) L 12/06/24 05:45 12/06/24 Hgb 9.1 g/dL (12.0-15.0) L 12/06/24 05:45 12/06/24 Hct 27.3 % (37-47) L 12/06/24 05:45 12/06/24 Plt Count 167 K/mm3 (150-450) 12/06/24 05:45 12/06/24 CHEMISTRY Potassium 3.7 mmol/L (3.5-5.1) 01/12/21 08:55 01/12/21 Sodium 141 mmol/L (136-145) 01/12/21 08:55 01/12/21 BUN 12 mg/dL (7-18) 01/12/21 08:55 01/12/21 Creatinine 1.00 mg/dL (0.70-1.20) 12/04/24 15:54 12/04/24 Glucose 72 mg/dL (74-106) L 01/12/21 08:55 01/12/21 COAG Pre-Assessment Diagnosis/Proposed Procedure Planned Operative Procedure(s): Cystoscopy//Left ureteral stent Anesthesia History 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 When Was Last Pacemaker Check QUESTION #4 FULL TEXT: You/Your Family Experience fever (hyperthermia) with Anesthesia Last Oral Intake Last Oral intake: Last Oral Intake NPO since Meds taken in AM with sips of water? 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 Female HX of Motion Sickness HX of N/V After Surgery Non-Smoker Duration of Surgery greater than 60 minutes Number of Risk Factors PONV Score Height & Weight Height & Weight: Anesthesia: Height & Weight Height 6 ft 12/04/24 11:37 Weight: 127.176 kg 12/04/24 11:37 Body Mass Index (BMI) 38.0 12/04/24 11:37 Respiratory Assessment Respiratory Assessment - hydrometeorological technician: Respiratory Tract Infection Hx - hydrometeorological technician Hx Respiratory Tract Infection STOP Sleep Apnea STOP Sleep Apnea - hydrometeorological technician: STOP Sleep Apnea - hydrometeorological technician Hx Hypertension Hx Sleep Apnea CPAP BIPAP Do you snore loudly (louder than talking or can be heard Do you often feel tired/ fatigued/ sleepy during daytime? Has anyone observed you stop breathing during sleep? STOP Results QUESTION #5 FULL TEXT : Do you snore loudly (louder than talking or can be heard through closed doors)? 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 Specify any problems Hx of Preganancy in last 3 Months Nurse Filling Out Transfusion & Questions: Date: Time: Patient unable to answer at this time (ie. 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: /Reproductive Hx- hydrometeorological technician Hx Now Gestational Age (in weeks): EDC: Hx Hx Para Hx Section SAB Active Medications Active Medications: Current Medications Generic Name Dose Route Start Last Admin Trade Name Freq PRN Reason Stop Dose Admin Acetaminophen 1,000 mg 12/04/24 20:00 12/05/24 16:40 Acetaminophen 500 Mg Tablet PO 1,000 mg Q8H PRN PRN Administration Pain Score 1-3 Cefepime HCl 1 gm/ Sodium 50 mls @ 100 mls/hr 12/05/24 12:00 12/05/24 12:24 Chloride IV Infused Q24H CECILIA Infusion Lactated Ringer's 1,000 mls @ 125 mls/hr 12/05/24 14:15 12/06/24 02:28 IV 125 mls/hr .Q8H CECILIA Administration Lactated Ringer's 1,000 mls @ 999 mls/hr 12/06/24 08:00 IV 12/06/24 09:00 .Q1H1M CECILIA Morphine Sulfate 2 mg 12/04/24 18:00 Morphine 2 Mg/Ml Syringe IV Q3H PRN PRN Pain Score 4-10 Morphine Sulfate 4 mg 12/04/24 18:00 12/06/24 06:17 Morphine 4 Mg/Ml Syringe IV 4 mg Q3H PRN PRN Administration Pain Score 6-10 Ondansetron HCl 4 mg 12/04/24 18:30 Ondansetron 4 Mg/2 Ml Vial IV Q6H PRN PRN NAUSEA/VOMITING Sodium Chloride 10 - 40 ml 12/05/24 04:50 12/06/24 06:17 0.9% Saline Lock 10 Ml Syringe IV 10 ml X1 PRN Administration SALINE FLUSH PFSH Medical History (Updated 12/05/24 @ 13:[address] Naina Granados MD) Hydronephrosis Ureteropelvic junction calculus SROM (spontaneous rupture of membranes) Anxiety Home Medications ?Medication ?Instructions ?Recorded ?Last Taken ?Type btdxgurb-wcw-Vi-FA 1 mg 1 tab PO DAILY 10/04/21 10/04/21 10:00 History tablet acetaminophen 500 mg tablet 1,000 mg (2 x 500 mg) PO Q6H PRN 01/13/21 Unknown Rx PRN Pain 1-10 Or Fever #0 tabs aspirin 81 mg capsule 81 mg PO DAILY 12/04/24 Unknown History nitrofurantoin 100 mg PO DAILY UTI 12/04/24 Unknown History monohydrate/macrocrystals 100 mg capsule (Macrobid) Allergy/AdvReac Type Severity Reaction Status Date / Time No Known Allergies Allergy Verified 12/04/24 11:01 Surgical History H/O wisdom tooth extraction Social History Smoking Status: Former smoker Review of Systems (Anesthesia) ROS Narrative System reviewed and no additional complaints, except as documented.
[2024-12-06] MEDS: Lactated Ringers 1,000 ML 999 ML IV (08:08)
[2024-12-06] MEDS: 0.9% Normal Saline (1000mL) 1,000 ML 15 ML IV (09:55)
--- NOTE | 2024-12-06 10:02 | PN.URO_ITS ---
Subjective Subjective No issues overnight. She is anxious about the procedure but otherwise doing okay. Objective Data Objective Data Vital Signs: Vital Signs Temp Pulse Resp BP Pulse Ox O2 Del Method 98.9 F 86 18 117/55 L 96 Room Air 12/06/24 07:40 12/06/24 07:40 12/06/24 07:40 12/06/24 07:40 12/06/24 07:40 12/06/24 07:40 Oxygen Delivery Method Room Air Weight: 280 lb 6 oz Body Mass Index (BMI) 38.0 Intake & Output: Intake and Output for Last 24 Hours 12/04/24 12/05/24 12/06/24 23:59 23:59 23:59 Intake Total 3577.35 / 3577.35 4898.75 / 4898.75 2483.33 / 2483.33 Output Total 600 / 600 4000 / 4000 1200 / 1200 Balance 2977.35 / 2977.35 898.75 / 898.75 1283.33 / 1283.33 Lab / Micro Data Attestation: I reviewed the patient's lab results. 12/06/24 05:45 12/04/24 15:54 Labs: Laboratory Results - last 24 hr 12/06/24 05:45: WBC 14.8 H, RBC 3.00 L, Hgb 9.1 L, Hct 27.3 L, MCV 91.0, MCH 30.3, MCHC 33.3, RDW Std Deviation 42.8, RDW Coeff of Anabela 13.1, Plt Count 167, MPV 11.9, Immature Gran % (Auto) 0.900, Neut % (Auto) 78.3 H, Lymph % (Auto) 12.4 L, [place] % (Auto) 8.0, Eos % (Auto) 0.2, Baso % (Auto) 0.2, Absolute Neuts (auto) 11.6 H, Absolute Lymphs (auto) 1.84, Nucleated RBC % 0 Micro: Microbiology 12/04/24 11:20 Urine, Clean Catch Urine Culture - Final Escherichia coli Physical Exam Const alert, oriented x3 and no apparent distress General Appearance: cooperative Orientation / Consciousness: awake HEENT normocephalic GI GI Narrative: abd soft, gravid, non tender, fundus appropriate for gestational age Narrative: CVA tenderness right side Extremity Extremity Narrative: trace edema, symmetrical Assessment & Plan Assessment/Plan (1) Ureteropelvic junction calculus: (2) Recurrent UTI (urinary tract infection) complicating : (3) Hydronephrosis: QUALIFIERS: Hydronephrosis type: with ureteropelvic junction obstruction Qualified Code(s): Q62.11 - Congenital occlusion of ureteropelvic junction PLAN: Plan proceed with intervention as scheduled compete antibiotic course and continue nighty prophylaxis Ecoli sensitive to current antibiotics continue supportive care and obstetric care stone treatment in about 8 weeks
--- NOTE | 2024-12-06 10:07 | PCM.OPRPT ---
Operative Report (Standard) Operative Information Date of Procedure: 12/06/24 Pre-Operative Diagnosis: Left ureteropelvic junction stone with obstruction and urinary tract infection Post-Operative Diagnosis: Same Surgery/Procedure Performed: Cystoscopy with left ureteral stent insertion furnace tapper: No Type of Anesthesia: Spinal RN Documented Start/Stop Times: Operation Date: 12/06/24 10:10 Case Time Anesthesia Start 12/06/24 10:08 Into Room 12/06/24 10:08 Procedure Start 12/06/24 10:23 Procedure End 12/06/24 10:29 Anesthesia End 12/06/24 10:37 Out of Room 12/06/24 10:37 Into Recovery 12/06/24 10:41 Procedure Start Time: 10:23 Procedure Stop Time: 10:29 Select all DRAINS/GRAFTS/IMPLANTS that apply: Drains Drain details: 4.5 [place] x 28 cm JJ stent Estimated Blood Loss: <5cc Specimen collected: No Description of surgery: The patient is a 34-year-old female with a left UPJ stone with obstruction and UTI during . She presents today for placement of a left ureteral stent via cystoscopy. Informed consent has been obtained. She was taken to the operating room and placed on the operating room table. Anesthesia monitored the head, neck, airway, IV access and vital signs throughout the case. Once anesthesia was appropriate administered, she was placed into dorsal lithotomy position and was prepped and draped in usual sterile fashion. A cystoscope was inserted through the urethra under direct visualization into the urinary bladder. The bladder mucosa was visualized in its entirety revealing no evidence of mass, erythema, ulceration or foreign body. The left ureteral orifice was identified and gently intubated with a 0.035 Glidewire. The wire was visualized beyond the stone in the renal pelvis. A 4.5 [place] 28 cm stent was placed over the wire with good positioning in the renal pelvis as well as the urinary bladder. At this time the bladder was emptied and the cystoscope was removed. She was awakened and taken to the recovery room in good condition. There were no complications during this procedure. Surgical Findings: 4.5 [place] x 28 cm JJ stent Complications Complications: No Admit VTE Documentation VTE Present on Admission: Yes VTE Mechan Device Prophylaxis: SCD's VTE Pharm Prophylaxis ordered?: No Reason prophylaxis not ordered: Treatment Not Indicated
--- NOTE | 2024-12-06 10:45 | PCM.POST.ANE ---
Anesthesia: Postop Eval I Current Vital Signs Temperature: 97.3 F Pulse Rate: 87 Blood Pressure: 130/69 Respiratory Rate: 18 Pulse Ox: 100 Oxygen Delivery Method: Room Air Assessment Airway patent: Yes Spontaneous unlabored respirations: Yes Mental status: Awake nausea: No Vomiting: No Anesthesia Complication: No Fluid Hydration Crystalloid volume administer (ml): 350 Total IV fluid infused: 350 Progress Note Post-operative progress note: Stable s/p SAB for cysto/L ureteral stent. Bilateral level at T-10 Anesthesia document: Postop Eval 1 completed: Yes
--- NOTE | 2024-12-06 10:47 | PCM.POSTANE2 ---
Anesthesia Postop Eval I Sum Postop Eval Completion status Anesthesia document: Postop Eval 1 completed: Yes Anesthesia Postop Eval I Summary Anesthesia Postop Eval I Summary: Anesthesia Postop Eval I: Assessment Summary Airway patent Yes 12/06/24 10:47 Spontaneous unlabored Yes 12/06/24 10:47 respirations Mental status Awake 12/06/24 10:47 nausea No 12/06/24 10:47 Vomiting No 12/06/24 10:47 Anesthesia Postop Eval I: Fluid Summary Crystalloid volume administer 350 12/06/24 10:47 (ml) Colloids volume administered ( ml) Blood Product volume administered (ml) Total IV fluid infused 350 12/06/24 10:47 Anesthesia Postop Eval I: Summary Notes Anesthesia Complication No 12/06/24 10:47 Anesthesia Complication Comment: Post-operative progress note Stable s/p SAB for 12/06/24 10:47 cysto/L ureteral stent. Bilateral level at T-10 Anesthesia: Postop Eval II Evaluation Mental status: Awake and Calm Pain Level: 0 nausea: No Vomiting: No Progress Note Post-operative progress note: Meets criteria to return to [facility]//OB Complications Anesthesia Complication: No
--- NOTE | 2024-12-06 14:58 | PN.OBGYN_ITS ---
Subjective Subjective Cysto with stent placement. Pain improved. Able to void without difficulty. No bleeding. Switching to keflex TID for 7 days than daily until delivery. Has OB appointment scheduled. Will see Urology after delivery Objective Data Objective Data Vital Signs: Vital Signs Temp Pulse Resp BP Pulse Ox O2 Del Method 98.2 F 95 20 H 122/79 H 99 Room Air 12/06/24 13:41 12/06/24 13:41 12/06/24 13:41 12/06/24 13:41 12/06/24 13:41 12/06/24 13:41 Oxygen Delivery Method Room Air Weight: 127.176 kg Body Mass Index (BMI) 38.0 Intake & Output: Intake and Output for Last 24 Hours 12/04/24 12/05/24 12/06/24 23:59 23:59 23:59 Intake Total 3577.35 / 3577.35 4898.75 / 4898.75 3177.08 / 3177.08 Output Total 600 / 600 4000 / 4000 1300 / 1300 Balance 2977.35 / 2977.35 898.75 / 898.75 1877.08 / 1877.08 Lab / Micro Data 12/06/24 05:45 12/04/24 15:54 Labs: Laboratory Results - last 24 hr 12/06/24 05:45: WBC 14.8 H, RBC 3.00 L, Hgb 9.1 L, Hct 27.3 L, MCV 91.0, MCH 30.3, MCHC 33.3, RDW Std Deviation 42.8, RDW Coeff of Anabela 13.1, Plt Count 167, MPV 11.9, Immature Gran % (Auto) 0.900, Neut % (Auto) 78.3 H, Lymph % (Auto) 12.4 L, [place] % (Auto) 8.0, Eos % (Auto) 0.2, Baso % (Auto) 0.2, Absolute Neuts (auto) 11.6 H, Absolute Lymphs (auto) 1.84, Nucleated RBC % 0 Micro: Microbiology 12/04/24 11:20 Urine, Clean Catch Urine Culture - Final Escherichia coli NST FHR Rate Baby A Baseline: 145 Variability:: Moderate Accelerations:: 15 x 15 Decelerations:: None NST Reactive:: Yes Assessment & Plan (1) High risk multigravida in third trimester: COMMENT: NSt daily, monitor for signs/symptoms of labor. Encouraged to push fluids, ambulate frequently. SCDs for VTE prophylaxis (2) Hydronephrosis: QUALIFIERS: Hydronephrosis type: with ureteropelvic junction obstruction Qualified Code(s): Q62.11 - Congenital occlusion of ureteropelvic junction COMMENT: plan stent tomorrow w/ urology then d/c home (3) Ureteropelvic junction calculus: COMMENT: see urology consult, NPO after midnight in anticipation of surgery. Increase IVF to `100cc/hr when NPO (4) Chronic hypertension affecting : COMMENT: CHTN, no medications (5) 34 weeks gestation of : (6) Recurrent UTI (urinary tract infection) complicating : QUALIFIERS: Trimester: third trimester Qualified Code(s): O23.43 - Unspecified infection of urinary tract in , third trimester COMMENT: Ecoli UTI in . Macrobid 100mg PO once daily for prophylaxis. Will likely change antibiotics when d/rosemary home (7) Pyelonephritis affecting : QUALIFIERS: Trimester: third trimester Qualified Code(s): O23.03 - Infections of kidney in , third trimester COMMENT: Cefepime 1gr IVPB. Will transition to oral Bactrim. CT showed stone and hydronephrosis. Consult w/ Dr. Elena-plan for surgery today With stone and plan for surgery and suspected pylo- culture pending will change status to full admission. PLAN: Plan Discharge home.
--- NOTE | 2024-12-06 14:58 | PCM.DC.SUM ---
Providers Date of Admission: 12/04/24 Date of Discharge: 12/06/24 Primary Care Physician: Dr. Chiki Gonzales MD Consultations 12/04/24 14:49 Consult: Urology Routine Consulting Provider: Latesha Elena Reason for Consult: Kidney stone EMERGENT Consult: No MD Notified: Yes Date Notified: 12/04/24 Time Notified: 14:49 Method of Notification: Text Reason For Visit: PYELONEPHRITIS Diagnosis Discharge Diagnosis (1) Ureteropelvic junction calculus: Status: Acute Code(s): N20.1 - Calculus of ureter (2) Recurrent UTI (urinary tract infection) complicating : Status: Acute Code(s): O23.40 - Unspecified infection of urinary tract in , unspecified trimester (3) Hydronephrosis: Status: Acute Code(s): N13.30 - Unspecified hydronephrosis Qualifiers: Hydronephrosis type: with ureteropelvic junction obstruction Qualified Code(s): Q62.11 - Congenital occlusion of ureteropelvic junction Medications at Discharge Home Medications uamfhuqb-mnf-Ry-FA 1 mg tablet 1 tab PO DAILY 01/08/21 acetaminophen 500 mg tablet 1,000 mg (2 x 500 mg) PO Q6H PRN PRN Pain 1-10 Or Fever #0 tabs 01/13/21 aspirin 81 mg capsule 81 mg PO DAILY 12/04/24 cephalexin 500 mg capsule 500 mg PO TID #60 caps 12/06/24 oxycodone 5 mg capsule 5 mg PO Q8H PRN pain 5 days #15 caps 12/06/24 Hospital Course Operations None Procedures - (cystoscopy with stent placement) Summary of Care Provided Minutes Spent on Discharge: 20 Hospital Course: Admitted with suspected pyelonephritis and found to have an obstructing renal stone. Cysto with stent placement performed with spinal anesthesia. Urine culture positive and sensitive to Keflex. Weight / BMI Weight Weight: 127.176 kg Body Mass Index (BMI) 38.0 ABG / Lab / Microbiology Data 12/06/24 05:45 12/04/24 15:54 Laboratory: Laboratory Results - last 24 hr 12/06/24 05:45: WBC 14.8 H, RBC 3.00 L, Hgb 9.1 L, Hct 27.3 L, MCV 91.0, MCH 30.3, MCHC 33.3, RDW Std Deviation 42.8, RDW Coeff of Anabela 13.1, Plt Count 167, MPV 11.9, Immature Gran % (Auto) 0.900, Neut % (Auto) 78.3 H, Lymph % (Auto) 12.4 L, [place] % (Auto) 8.0, Eos % (Auto) 0.2, Baso % (Auto) 0.2, Absolute Neuts (auto) 11.6 H, Absolute Lymphs (auto) 1.84, Nucleated RBC % 0 Microbiology: Microbiology 12/04/24 11:20 Urine, Clean Catch Urine Culture - Final Escherichia coli D/C Instructions Discharge Activity: Return to Normal Activity Return to work on: 12/08/24 May resume sexual activity in: No Restrictions Weight Bearing Status: Weight bearing as tolerated Call your doctor if you observe: Fever of 101 or Higher, Inability to urinate and Uncontrolled pain DC O2, CPAP, BIPAP Needs Home O2 Discharge instructions: No Meaningful Use Info Meaningful Use Meaningful Use Diagnoses (Choose all that apply): None applicable Discharge Plan Admission Admit Date/Time: 12/04/24 17:00 Primary Reason for Your Visit: UTI, kidney stone Attending Provider: Sheyla Moreno Primary Care Provider: Chiki Gonzales Consulting Providers: Latesha Elena Instructions Additional Instructions / Restrictions: keep already scheduled apt for 12/13/2024 w [facility]. Discharge Orders/Prescriptions Prescriptions: New oxycodone 5 mg capsule 5 mg PO Q8H PRN (Reason: pain) 5 Days Qty: 15 0RF cephalexin 500 mg capsule 500 mg PO TID Qty: 60 0RF Continued gtvfqqnf-oht-Ev-FA 1 mg Tablet 1 tab PO DAILY acetaminophen 500 mg Tablet 1,000 mg PO Q6H PRN PRN (Reason: Pain 1-10 Or Fever) Qty: 0 0RF aspirin 81 mg capsule 81 mg PO DAILY Discontinued nitrofurantoin monohyd/m-cryst [Macrobid] 100 mg capsule 100 mg PO DAILY Referrals / Follow Up: Chiki Gonzales MD [Primary Care Provider] - Disposition Disposition (needs filled in before D/C Order can be placed): Home, Self Care
== END 2024-12-06 15:20 | disposition home or self-care (01) | DRG 818 ==
LOC: WPOUT 17:05 → WP 17:05
PROVIDERS: Obstetrics & Gynecology; Urology; Admitting Provider Advanced Practice Midwife; PCP Family Medicine; Referring Provider Advanced Practice Midwife; Visit Provider Advanced Practice Midwife
PROC: 0T778DZ Dilation of Left Ureter with Intraluminal Device, Via Natural or Artificial Opening Endoscopic (ICD-10-PCS; principal; 2024-12-06 10:00)
DX: O23.03 Infections of kidney in pregnancy, third trimester (principal); N13.6 Pyonephrosis; N20.1 Calculus of ureter; O10.013 Pre-existing essential hypertension complicating pregnancy, third trimester; Q62.11 Congenital occlusion of ureteropelvic junction; B96.20 Unspecified Escherichia coli [E. coli] as the cause of diseases classified elsewhere; Z87.891 Personal history of nicotine dependence; Z79.82 Long term (current) use of aspirin; Z3A.34 34 weeks gestation of pregnancy; O99.893 Other specified diseases and conditions complicating puerperium; Z87.442 Personal history of urinary calculi; Z87.440 Personal history of urinary (tract) infections
CPT/HCPCS: 36415; 59025; 59050; 74176; 76000; 81001; 82565; 85025; 87077; 87086; 87088; 87186; 99221; C1769; C2617; A4216; G0378; J2405

== ENCOUNTER 2024-12-07 00:45 | Outpatient (CLI) | payer BC, SELFPAY ==
--- OUTSIDE RECORDS SUMMARY | 2024-12-07 00:53 | XMS RPT_ITS | CCD ---
Author Organization [facility] Care Team Providers Care Tax Credit Leasing Consultant Name Role Phone Chiki Gonzales Primary Care Provider CHIKI GONZALES Primary Care Unavailable ADINA KRUEGER Referring Unavailable GONZALES, CHIKI Dominique Primary Care Unavailable KELLY BALTAZAR Attending Unavailable FLYNN, CHIKI Dominique Primary Care Unavailable ELLI BARROS Referring Unavail able GONZALES, CHIKI Dominique Primary Care Unavailable ELLI BARROS Referring Unavail able SHEYLA MORENO Attending Unavailable SHEYLA MORENO Referring Unavailable FLYNN, CHIKI Dominique Primary Care Unavailable GONZALES, CHIKI Dominique Primary Care Unavailable KENIA, LEANNE Referring Unavailable GONZALES, CHIKI R Primary Care Unavailable KENIA, LEANNE Referring Unavailable POLLY HAMILTON Attending Unavailable FLYNN, CHIKI Dominique Primary Care Unavailable GONZALES, CHIKI Dominique Primary Care Unavailable KENIA, LEANNE Referring Unavailable GONZALES, CHIKI R Primary Care Unavailable KELLY BALTAZAR Attending Unavailable KENIA, LEANNE Referring Unavailable CRISSY TOM Attending Unavailable GONZALES, CHIKI R Primary Care Unavailable GONZALES, CHIKI R Primary Care Unavailable KENIA, LEANNE Attending Unavailable FLYNN, CHIKI R Primary Care Unavailable KENIA, LEANNE Referring Unavailable GONZALES, CHIKI R Primary Care Unavailable ELLI BARROS Attending Unavail able FLYNN, CHIKI Dominique Primary Care Unavailable GONZALES, CHIKI Dominique Primary Care Unavailable ADINA KRUEGER Attending Unavailable FLYNN, CHIKI Dominique Primary Care Unavailable ELLI BARROS Referring Unavail able FLYNN, CHIKI Dominique Primary Care Unavailable KELLY BALTAZAR Attending Unavailable Dr. Chiki Gonzales MD Primary Care Provider Josh CNSheyla Terry Admit Provider Sheyla Moreno CNM Attending Provider Sheyla Moreno CNM Referring Provider Kassy STAUFFER, Dr. Charlton Other Provider Sheyla Moreno CNM Other Provider [phone] Kassy STAUFFER, Dr. Charlton Attending Provider Latesha Elena Consulting Unavailable Latesha Elena Attending Unavailable Chiki Gonzales Primary Care Unavailable Sheyla Moreno Referring Unavailable Sheyla Moreno Admitting Unavailable Sheyla Moreno Consulting Unavailable Latesha Elena Consulting Unavailable Chiki Gonzales Primary Care Unavailable Sheyla Moreno Admitting Unavailable Sheyla Moreno Attending Unavailable Sheyla Moreno Referring Unavailable Medications Current Medications Medication Drug Class(es) Dates Sig (Normalized) Sig (Original) acetaminophen 500 mg oral tablet (1 source) Start: 01-13-2021 take 1-10 tablets by mouth every six hours as needed for pain Acetaminophen 500 mg Tablet Active 1000 mg PO EVERY 6 HOURS NEEDED as needed for Pain 1-10 Or Fever 0 0 January 13, 2021 12:00am aspirin 81 mg oral tablet (20 sources) Platelet Aggregation Inhibitor, Nonsteroidal Anti-inflammatory Drug Start: 12-04-2024 take 1 capsule by mouth once daily Aspirin 81 mg capsule Active 81 mg PO DAILY December 04, 2024 12:00am Start: 06-07-2024 take 1 tablet by julisa th once daily aspirin, enteric coated (ECOTRIN LOW STRENGTH) 81 mg EC tablet Indications: 8 weeks gestation of (HCC) Take 1 tablet by mouth once daily. 90 tablet 3 06/07/2024 Active Start: 01-08-2021 End: 01-13-2021 take 1 tablet by mouth once daily Aspirin (Baby Aspirin) 81 mg Tablet,Chewable Discontinued 81 mg PO DAILY January 08, 2021 12:00am January 13, 2021 6:59am Check with primary doctor cephalexin 500 mg oral capsule (3 sources) Cephalosporin Antibacterial Start: 12-06-2024 take 1 capsule by mouth three times daily Cephalexin 500 mg capsule Active 500 mg PO THREE TIMES A DAY 60 0 December 06, 2024 12:00am Start: 07-08-2024 End: 07-13-2024 take 1 capsule by mouth four times daily cephALEXin (KEFLEX) 500 mg capsule Indications: Bacteria in urine Take 1 capsule by mouth four times daily for 5 days. 20 capsule 07/08/2024 07/13/2024 Active famotidine 20 mg oral tablet (3 sources) Histamine-2 Receptor Antagonist Start: 11-08-2024 take 1 tablet by mouth twice daily famotidine (PEPCID) 20 mg tablet Indications: 30 weeks gestation of (HCC) , Gastroesophageal reflux disease, unspecified whether esophagitis present Take 1 tablet by mouth two times a day. 60 tablet 11/08/2024 Active labetalol hydrochloride 300 mg oral tablet (4 sources) beta-Adrenergic Collette Start: 02-26-2021 End: 02-11-2022 take 1 tablet by mouth three times daily labetalol (TRANDATE) 300 mg tablet Take 1 tablet by mouth three times daily. 90 tablet 0 02/26/2021 02/11/2022 Discontinued (Course of therapy completed) Start: 01-13-2021 End: 12-04-2024 take 1 tablet by mouth three times daily Labetalol 200 mg Tablet Discontinued 200 mg PO THREE TIMES A DAY 90 0 January 13, 2021 12:00am December 04, 2024 11:02am Comment on above: Take 1 tablet by julisa th three times daily. nitrofurantoin, macrocrystals 25 mg / nitrofurantoin, monohydrate 75 mg oral capsule (13 sources) Nitrofuran Antibacterial Start: 10-28-19 End: 11-04-19 take 1 capsule by mouth twice daily nitrofurantoin monohydrate and macrocrystal (MACROBID) 100 mg capsule Indications: UTI (urinary tract infection) in , antepartum ([facility]) Take 1 capsule by mouth two times a day for 7 days. 14 capsule 10/27/2024 11/03/2024 Active Start: 09-07-2024 End: 01-05-2025 take 1 capsule by mouth once daily Nitrofurantoin Monohyd/M-Cryst (Macrobid) 100 mg capsule Active 100 mg PO DAILY December 04, 2024 12:00am UTI Start: 09-07-2024 End: 09-14-2024 take 1 capsule by mouth twice daily nitrofurantoin monohydrate and macrocrystal (MACROBID) 100 mg capsule Indications: UTI (urinary tract infection) in , antepartum ([facility]) Take 1 capsule by mouth [...] 1 tablet by julisa th once daily. oxyCODONE hydrochloride 5 mg oral capsule (1 source) Opioid Agonist Start: 12-06-2024 take 1 capsule by mouth every eight hours as needed for pain Oxycodone 5 mg capsule Active 5 mg PO Q8H as needed for pain 15 5 0 December 06, 2024 Calculus in pelviureteric junction Calculus of ureter Pcwwnvpo-Yvu-Mc-Fa 1 mg Tablet (1 source) Start: 01-08-2021 take 1 tablet by mouth once daily Elfnghrc-Edf-Br-Fa 1 mg Tablet Active 1 {tbl} PO DAILY January 08, 2021 12:00am vit/iron fum/folic ac ( 1 + 1 [...] for 7 days. 14 tablet 09/20/2024 09/27/2024 benzocaine 200 mg/ml / menthol 5 mg/ml topical spray (1 source) Standardized Chemical Allergen Start: 01-13-2021 End: 12-04-2024 Benzocaine-Menthol (Dermoplast (With Menthol)) 20-0.5 % Aerosol Discontinued 1 NMA TOPICAL 3 TIMES DAILY NEEDED as needed for perineal discomfort 0 0 January 13, 2021 12:00am December 04, 2024 11:02am Please contact the information source for Protocol details. Ethinyl Estradiol / norgestimate (2 sources) Progestin, Estrogen Start: 04-09-2023 End: 05-24-2024 take 1 tablet by mouth once daily norgestimate 0.25 mg-ethinyl estradiol 35 mcg (SPRINTEC) 0.25-35 mg-mcg per tablet Take 1 tablet by mouth once daily. 84 tablet 3 04/09/2023 05/24/2024 Discontinued (Discontinued by Patient) Start: 04-09-2023 take 1 tablet by julisa th once daily norgestimate 0.25 mg-ethinyl estradiol 35 mcg (SPRINTEC) 0.25-35 mg-mcg per tablet Take 1 tablet by mouth once daily. 84 tablet 3 04/09/2023 Active ferrous sulfate 325 mg oral tablet (6 sources) Start: 01-13-2021 End: 12-04-2024 take 1 tablet by mouth once daily Ferrous Sulfate (Iron) 325 mg (65 mg iron) Tablet Discontinued 325 mg PO DAILY 30 January 13, 2021 7:01am December 04, 2024 11:02am Start: 01-08-2021 End: 01-13-2021 take 1 tablet by mouth twice daily Ferrous Sulfate (Iron) 325 mg (65 mg iron) Tablet Discontinued 325 mg PO TWICE A DAY January 08, 2021 12:00am January 13, 2021 7:01am Comment on above: Take 325 mg by mouth daily with breakfast. fluticasone propionate 0.05 mg/actuat metered dose nasal spray (1 source) Corticosteroid Start: 08-09-19 13 take 2 spray(s) nasal route once daily at bedtime fluticasone 50 mcg/actuation nasal spray Use 2 Sprays in each nostril daily at bedtime. 1 Bottle 0 08/08/2012 Active Comment on above: Use 2 Sprays in each nostril daily at bedtime. hydrOXYzine hydrochloride 25 mg oral tablet (2 sources) Antihistamine End: 06-08-19 take 1 tablet by mouth every eight hours as needed hydrOXYzine HCl (ATARAX) 25 mg tablet Take 25 mg by mouth three times a day as needed for anxiety. 06/07/2024 Discontinued ibuprofen 600 mg oral tablet (1 source) Nonsteroidal Anti-inflammatory Drug Start: 01-14-20 End: 12-05-19 take 1 tablet by mouth every six hours as needed for pain Ibuprofen 600 mg Tablet Discontinued 600 mg PO EVERY 6 HOURS NEEDED as needed for Pain Score 1-3 30 January 13, 2021 12:00am December 04, 2024 11:02am Qxojavre-Fe-Skj-Fe-FA ( VITAMIN) tab (9 sources) take 1 tablet by mouth once Oajycyuv-Uh-Dwq-Fe- FA ( VITAMIN) tab Take 1 tablet by mouth. 0 Active Comment on above: Take 1 tablet by julisa th. Problems Active Problems Problem Classification Problem Date Documented Date Episodic/Chronic Abdominal pain (4 sources) Flank pain; Translations: [Unspecified abdominal pain] Onset: 12-06-2024 12-04-2024 Episodic Acute posthemorrhagic anemia (1 source) Acute posthemorrhagic anemia; Translations: [Acute posthemorrhagic anemia] 01-13-2021 Episodic Anxiety disorders (20 sources) Generalized anxiety disorder; Translations: [Generalized anxiety disorder] 06-07-2024 Chronic Calculus of urinary tract (4 sources) Calculus in pelviureteric junction ; Translations: [Calculus of ureter] Onset: 12-06-2024 12-05-2024 Episodic Comment on above: see urology consult, NPO after midnight in anticipation of surgery. Increase IVF to `100cc/hr when NPO Contraceptive and procreative management (3 sources) Oral contraception; Translations: [Encounter for surveillance of contraceptive pills] Episodic Esophageal disorders (1 source) Gastro-esophageal reflux disease without esophagitis; Translations: [Gastroesophageal reflux disease, unspecified whether esophagitis present] Onset: 11-08-2024 Chronic Genitourinary congenital anomalies (2 sources) Congenital occlusion of ureteropelvic junction; 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] Onset: 12-06-2024 Chronic Genitourinary symptoms and ill-defined conditions (1 source) Bacteriuria; Translations: [Bacteriuria] 07-08-2024 Episodic Hemorrhage during ; abruptio placenta; placenta previa (1 source) Threatened miscarriage; Translations: [Threatened miscarriage] Episodic Hypertension complicating ; childbirth and the puerperium (20 sources) Pre-existing hypertension in obstetric context; Translations: [Unspecified pre-existing hypertension complicating , unspecified trimester] Onset: 09-03-2024 09-03-2024 Chronic Comment on above: CHTN, no medications Malaise and fatigue (1 source) Malaise and fatigue; Translations: [Other malaise] Episodic Menstrual disorders (1 source) Missed period; Translations: [Irregular menstruation, unspecified] 05-24-2024 Chronic OB-related trauma to perineum and vulva (1 source) First degree perineal laceration; Translations: [First degree perineal laceration during delivery] 01-11-2021 Episodic Open wounds of extremities (1 source) Laceration of right thumb; Translations: [Laceration without foreign body of right thumb without damage to nail, initial encounter] 04-06-2019 Episodic Other complications of ; puerperium affecting management of mother (1 source) Meconium in amniotic fluid affecting management of mother ; Translations: [Labor and delivery complicated by meconium in amniotic fluid] 01-21-2021 Episodic Other complications of (20 sources) Maternal obesity complicating , childbirth and the puerperium, antepartum; Translations: [Obesity complicating , second trimester] Onset: 09-13-2020 Resolved: 02-20-2021 02-20-2021 Chronic Other complications of (6 sources) Anemia in mother complicating , childbirth AND/OR puerperium; Translations: [Anemia complicating , third trimester] Onset: 11-15-2020 10-27-2024 Chronic Other complications of (1 source) Anemia [...] trimester] Onset: 09-13-2020 Resolved: 02-20-2021 02-20-2021 Episodic Comment on above: NSt daily, monitor f or signs/symptoms of labor. Encouraged to push fluids, ambulate frequently. SCDs for VTE prophylaxis Other complications of (20 sources) Urinary tract infection in ; Translations: [Unspecified infection of urinary tract in , unspecified trimester] Onset: 06-09-2024 06-09-2024 Episodic Comment on above: Ecoli UTI in pregnan cy. Macrobid 100mg PO once daily for prophylaxis. Will likely change antibiotics when d/rosemary home Other complications of (1 source) Supervision of high risk , unspecified, unspecified trimester; Translations: [, supervision, high-risk, unspecified trimester (HCC)] Onset: 10-27-2024 Episodic Other complications of (1 source) Supervision of high risk , unspecified, second trimester; Translations: [Supervision of high risk in second trimester (HCC)] Onset: 11-08-2024 Episodic Other complications of (3 sources) Unspecified infection of urinary tract in , unspecified trimester; Translations: [UTI (urinary tract infection) in , antepartum (HCC)] Onset: 10-27-2024 Episodic Other complications of (2 sources) Pyelonephritis in ; Translations: [Infections of kidney in , unspecified trimester] 12-05-2024 Episodic Comment on above: Cefepime 1gr IVPB. W ill transition to oral Bactrim. CT showed stone and hydronephrosis. Consult w/ Dr. Elena-plan for surgery todayWith stone and plan for surgery and suspected pylo- culture pending will change status to full admission. Other complications of (2 sources) Infections of kidney in , unspecified trimester; Translations: [Infections of kidney in , unspecified trimester] Onset: 12-06-2024 Episodic Other complications of (2 sources) Supervision of with grand multiparity, third trimester; Translations: [Supervision of with grand multiparity, third trimester] Onset: 12-06-2024 Episodic Other diseases of kidney and ureters (2 sources) Hydronephrosis; Translations: [Unspecified hydronephrosis] 12-05-2024 Episodic Comment on above: plan stent tomorrow w/ urology then d/c home Other diseases of kidney and ureters (2 sources) Unspecified hydronephrosis; Translations: [Unspecified hydronephrosis] Onset: 12-06-2024 Episodic Other nutritional; endocrine; and metabolic disorders (20 sources) Body mass index 30+ - obesity; Translations: [Body mass index (BMI) 38.0-38.9, adult] Onset: 06-07-2024 06-07-2024 Chronic Other nutritional; endocrine; and metabolic disorders (1 source) Body mass index (BMI) 38.0-38.9, adult; Translations: [BMI 38.0-38.9,adult] Onset: 06-07-2024 Chronic Other and delivery including normal (3 sources) with uncertain dates; Translations: [Encounter for supervision of normal , unspecified, unspecified trimester] Onset: 06-07-2024 06-07-2024 Episodic Comment on above: PPD #3 Other screening for suspected conditions (not mental disorders or infectious disease) (5 sources) Cancer cervix screening status; Translations: [Encounter for screening for malignant neoplasm of cervix] Onset: 06-07-2024 06-07-2024 Episodic Polyhydramnios and other problems of amniotic cavity (1 source) Spontaneous rupture of membranes 01-21-2021 Episodic Comment on above: 37 weeks Residual codes; unclassified (1 source) Gestation period, [...] 10-25-2024 Episodic Residual codes; unclassified (1 source) Gestation period, 33 weeks; Translations: [33 weeks gestation of ] 11-29-2024 Episodic Residual codes; unclassified (1 source) 30 weeks gestation of ; Translations: [30 weeks gestation of (HCC)] Onset: 11-08-2024 Episodic Residual codes; unclassified (1 source) 28 weeks gestation of ; Translations: [28 weeks gestation of (HCC)] Onset: 10-25-2024 Episodic Residual codes; unclassified (1 source) 24 weeks gestation of ; Translations: [24 weeks gestation of (HCC)] Onset: 09-27-2024 Episodic Residual codes; unclassified (2 sources) Gestation period, 34 weeks; Translations: [34 weeks gestation of ] 12-04-2024 Episodic Residual codes; unclassified (2 sources) 34 weeks gestation of ; Translations: [34 weeks gestation of ] Onset: 12-06-2024 Episodic Unclassified (20 sources) [facility] Education [...] Onset: 09-13-2020 Resolved: 02-20-2021 02-20-2021 Episodic Other hematologic conditions (20 sources) History of anemia; Translations: [Personal history of diseases of the blood and blood-forming organs and certain disorders involving the immune mechanism] Onset: 06-07-2024 06-07-2024 Episodic Residual codes; unclassified (1 source) Personal history of other complications of , childbirth and the puerperium; Translations: [History of pre-eclampsia] Onset: 06-07-2024 Episodic Residual codes; unclassified (1 source) 21 weeks gestation of ; Translations: [21 weeks gestation of ([facility])] Onset: 09-03-2024 Episodic Residual codes; unclassified (1 source) 16 weeks gestation of ; Translations: [16 weeks gestation of ([facility])] Onset: 08-02-2024 Episodic Residual codes; unclassified (2 sources) 8 weeks gestation of ; Translations: [8 weeks gestation of ([facility])] Onset: 06-07-2024 Episodic Screening and history of mental health and substance abuse codes (20 sources) H/O: anxiety state; Translations: [Personal history of other mental and behavioral disorders] Onset: 06-08-2020 Resolved: 10-27-2024 06-08-2020 Episodic Results Test Name Value Interpretation Reference Range Facility Absolute lymphocyte countOrd ered By: Adina Krueger on 12-06-2024 Lymphocytes Auto (Unsp spec) [#/Vol] 1.84 10*3/uL 0.83-4.51 [facility] Absolute neutrophil countOrd ered By: Adina Krueger on 12-06-2024 Neutrophils (Bld) [#/Vol] 11.6 10*3/uL High 2.0-7.7 [facility] Automated lymphocyte count a s percentage of total leukocytesOrdered By: Adina Krueger on 12-06-2024 Lymphocytes/100 WBC Auto (Unsp spec) 12.4 % Low 19-41 [facility] Basophil percentageOrdered B y: Adina Krueger on 12-06-2024 Basophils/100 WBC (Bld) 0.2 % 0-1 [facility] CBC W/Diff, Automatedon 09-0 Absolute Lymph 1.84 X10 3/uL Normal 0.83-4.51 [facility] Comment on above: Performed By: #### L 100.0100 #### [facility] [address] [place], [address] Absolute Neut 11.6 X10 3/uL High 2.0-7.7 [facility] Comment on above: Performed By: #### L 100.0100 #### [facility] [address] [place], [address] Basophils/100 WBC (Bld) 0.2 % Normal 0-1 [facility] Comment on above: Performed By: #### L 100.0100 #### [facility] [address] [place], [address] Eosinophils/100 WBC (Bld) 0.2 % Normal 0-5 [facility] Comment on above: Performed By: #### L 100.0100 #### [facility] [address] [place], [address] Erythrocyte distribution width (RBC) [Ratio] 13.1 % Normal 11.6-14.6 [facility] Comment on above: Performed By: #### L 100.0100 #### [facility] [address] [place], [address] Hematocrit (Bld) [Volume fraction] 27.3 % Low 37-47 [facility] Comment on above: Performed By: #### L 100.0100 #### [facility] [address] [place], [address] Hemoglobin (Bld) [Mass/Vol] 9.1 g/dL Low 12.0-15.0 [facility] Comment on above: Performed By: #### L 100.0100 #### [facility] [address] [place], [address] IG% 0.900 Normal 0.0-0.9 [facility] Comment on above: Result Comment: IG% - Immature Granulocytes (promyelocytes, myelocytes and metamyelocytes) > 1% indicates that a LEFT SHIFT is Present. Performed By: #### L 100.0100 #### [facility] [address] [place], [address] Lymphocytes/100 WBC (Bld) 12.4 % Low 19-41 [facility] Comment on above: Performed By: #### L 100.0100 #### [facility] [address] [place], [address] MCH (RBC) [Entitic mass] 30.3 pg Normal 27.0-32.0 [facility] Comment on above: Performed By: #### L 100.0100 #### [facility] [address] [place], [address] MCHC (RBC) [Mass/Vol] 33.3 g/dL Normal 32-36 [facility] Comment on above: Performed By: #### L 100.0100 #### [facility] [address] [place], [address] MCV (RBC) [Entitic vol] 91.0 fL Normal 81-99 [facility] Comment on above: Performed By: #### L 100.0100 #### [facility] [address] [place], [address] Monocytes/100 WBC (Bld) 8.0 % Normal 0-10 [facility] Comment on above: Performed By: #### L 100.0100 #### [facility] [address] [place], [address] Neutrophils/100 WBC (Bld) 78.3 % High 47-70 [facility] Comment on above: Performed By: #### L 100.0100 #### [facility] [address] [place], [address] Nucleated RBC (Bld) [#/Vol] 0 10*3/uL Normal 0-5 [facility] Comment on above: Performed By: #### L 100.0100 #### [facility] [address] [place], [address] Platelet mean volume (Bld) [Entitic vol] 11.9 fL Normal 6.2-12.0 [facility] Comment on above: Performed By: #### L 100.0100 #### [facility] [address] [place], [address] Platelets (Bld) [#/Vol] 167 10*3/uL Normal 150-450 [facility] Comment on above: Performed By: #### L 100.0100 #### [facility] [address] [place], [address] RBC (Bld) [#/Vol] 3.00 10*6/uL Low 4.2-5.4 [facility] Comment on above: Performed By: #### L 100.0100 #### [facility] [address] [place], [address] RDW SD 42.8 fl Normal 35.1-43.9 [facility] Comment on above: Performed By: #### L 100.0100 #### [facility] [address] [place], [address] WBC (Bld) [#/Vol] 14.8 10*3/uL High 4.4-11.0 [facility] Comment on above: Performed By: #### L 100.0100 #### [facility] [address] [place], [address] Eosinophil percentageOrdered By: Adina Krueger on 12-06-2024 Eosinophils/100 WBC (Bld) 0.2 % 0-5 [facility] Erythrocyte distribution wid th ratioOrdered By: Adina Krueger on 12-06-2024 Erythrocyte distribution width (RBC) [Ratio] 13.1 % 11.6-14.6 [facility] Erythrocyte distribution wid th standard deviationOrdered By: Adina Krueger on 12-06-2024 Erythrocyte distribution width (RBC) [Ratio] 42.8 fl 35.1-43.9 [facility] Hematocrit Auto (Bld) [Volum e fraction]Ordered By: Adina Krueger on 12-06-2024 Hematocrit (Bld) [Volume fraction] 27.3 % Low 37-47 [facility] Hemoglobin measurementOrdere d By: Adina Krueger on 12-06-2024 Hemoglobin (Bld) [Mass/Vol] 9.1 g/dL Low 12.0-15.0 [facility] Immature granulocytes/100 WB C Auto (Bld)Ordered By: Adina Krueger on 12-06-2024 Immature granulocytes/100 WBC (Bld) 0.900 % 0.0-0.9 [facility] Comment on above: IG% - Immature Granu locytes (promyelocytes, myelocytes and metamyelocytes) > 1% indicates that a LEFT SHIFT is Present. MCV (mean corpuscular volume ) determinationOrdered By: Adina Krueger on 12-06-2024 MCV (RBC) [Entitic vol] 91.0 fL 81-99 [facility] MR/POSTOP.ANEon 12-06-2024 [facility] Records Department [address] [place] [address] Anesthesia Postop Eval I 12/06/24 1045 MR#: [id number] Acct: [id number] Name: HILLARY FRAIRE Rep #: [id number] : 1990 34 From: Darryl Harvey MD PCP: Dr. Chiki Gonzales MD Status:ADM IN Y Race: C Location: [place] [id number] Anesthesia: Postop Eval I Current Vital Signs Temperature: 97.3 F Pulse Rate: 87 Blood Pressure: 130/69 Respiratory Rate: 18 Pulse Ox: 100 Oxygen Delivery Method: Room Air Assessment Airway patent: Yes Spontaneous unlabored respirations: Yes Mental status: Awake nausea: No Vomiting: No Anesthesia Complication: No Fluid Hydration Crystalloid volume administer (ml): 350 Total IV fluid infused: 350 Progress Note Post-operative progress note: Stable s/p SAB for cysto/L ureteral stent. Bilateral level at T-10 Anesthesia document: Postop Eval 1 completed: Yes 12/06/24 1348 Date [facility]: [facility] CC: Signed Normal [facility] [id number] 12-06-2024 [facility] Records Department [address] [facility] [place] [address] Anesthesia Postop Eval II 12/06/24 1047 MR#: [id number] Acct: [id number] Name: HILLARY FRAIRE Rep #: [id number] : 1990 34 From: Darryl Harvey MD PCP: Dr. Chiki Gonzales MD Status:ADM IN Y Race: C Location: [place] [address] Anesthesia Postop Eval I Sum Postop Eval Completion status Anesthesia document: Postop Eval 1 completed: Yes Anesthesia Postop Eval I Summary Anesthesia Postop Eval I Summary: Anesthesia Postop Eval I: Assessment Summary Airway patent Yes 12/06/24 10:47 Spontaneous unlabored Yes 12/06/24 10:47 respirations Mental status Awake 12/06/24 10:47 nausea No 12/06/24 10:47 Vomiting No 12/06/24 10:47 Anesthesia Postop Eval I: Fluid Summary Crystalloid volume administer 350 12/06/24 10:47 (ml) Colloids volume administered ( ml) Blood Product volume administered (ml) Total IV fluid infused 350 12/06/24 10:47 Anesthesia Postop Eval I: Summary Notes Anesthesia Complication No 12/06/24 10:47 Anesthesia Complication Comment: Post-operative progress note Stable s/p SAB for 12/06/24 10:47 cysto/L ureteral stent. Bilateral level at T-10 Anesthesia: Postop Eval II Evaluation Mental status: Awake and Calm Pain Level: 0 nausea: No Vomiting: No Progress Note Post-operative progress note: Meets criteria to return to [facility]//OB Complications Anesthesia Complication: No 12/06/24 1048 Date Darryl Harvey MD Cosignzachariah Signature: Date CC: Signed Normal [facility] Mean corpuscular hemoglobin (MCH) determinationOrdered By: Adina Krueger on 12-06-2024 MCH (RBC) [Entitic mass] 30.3 pg 27.0-32.0 [facility] Mean corpuscular hemoglobin concentration (MCHC) determinationOrdered By: Adina Krueger on 12-06-2024 MCHC (RBC) [Mass/Vol] 33.3 g/dL 32-36 [facility] Mean platelet volume determi nationOrdered By: Adina Krueger on 12-06-2024 Platelet mean volume (Bld) [Entitic vol] 11.9 fL 6.2-12.0 [facility] Monocyte percentageOrdered B y: Adina Krueger on 12-06-2024 Monocytes/100 WBC (Bld) 8.0 % 0-10 [facility] Neutrophil percentageOrdered By: Adina Krueger on 12-06-2024 Neutrophils/100 WBC (Bld) 78.3 % High 47-70 [facility] Nucleated red blood cell per centageOrdered By: Adina Krueger on 12-06-2024 Nucleated RBC/100 WBC (Bld) [Ratio] 0 % 0-5 [facility] Operative Reporton Operative Report [facility] Medical Records Department [address] [place] [address] Operative Report 12/06/24 1007 MR#: [id number] Acct: [id number] Name: HILLARY FRAIRE Rep #: [id number] : 1990 34 From: Latesha Elena MD PCP: Dr. Chiki Gonzales MD Status:ADM IN Location: [place] [address] Operative Report (Standard) Operative Information Date of Procedure: 12/06/24 Pre-Operative Diagnosis: Left ureteropelvic junction stone with obstruction and urinary tract infection Post-Operative Diagnosis: Same Surgery/Procedure Performed: Cystoscopy with left ureteral stent insertion formstone fitter: No Type of Anesthesia: Spinal RN Documented Start/Stop Times: Operation Date: 12/06/24 10:10 Case Time Anesthesia Start 12/06/24 10:08 Into Room 12/06/24 10:08 Procedure Start 12/06/24 10:23 Procedure End 12/06/24 10:29 Anesthesia End 12/06/24 10:37 Out of Room 12/06/24 10:37 Into Recovery 12/06/24 10:41 Procedure Start Time: 10:23 Procedure Stop Time: 10:29 Select all DRAINS/GRAFTS/IMPLAN TS that apply: Drains Drain details: 4.5 Haitian x 28 cm JJ stent Estimated Blood Loss: <5cc Specimen collected: No Description of surgery: The patient is a 34-year-old female with a left UPJ stone with obstruction and UTI during . She presents today for placement of a left ureteral stent via cystoscopy. Informed consent has been obtained. She was taken to the operating room and placed on the operating room table. Anesthesia monitored the head, neck, airway, IV access and vital signs throughout the case. Once anesthesia was appropriate administered, she was placed into dorsal lithotomy position and was prepped and draped in usual sterile fashion. A cystoscope was inserted through the urethra under direct visualization into the urinary bladder. The bladder mucosa was visualized in its entirety revealing no evidence of mass, erythema, ulceration or foreign body. The left ureteral orifice was identified and gently intubated with a 0.035 Glidewire. The wire was visualized beyond the stone in the renal pelvis. A 4.5 Haitian 28 cm stent was placed over the wire with good positioning in the renal pelvis as well as the urinary bladder. At this time the bladder was emptied and the cystoscope was removed. She was awakened and taken to the recovery room in good condition. There were no complications during this procedure. Surgical Findings: 4.5 Haitian x 28 cm JJ stent Complications Complications: No Admit VTE Documentation VTE Present on Admission: Yes VTE Mechan Device Prophylaxis: SCD's VTE Pharm Prophylaxis ordered?: No Reason prophylaxis not ordered: Treatment Not Indicated 12/06/24 1048 Cosigner Signature (if applicable): CC: CARLOS Moreno; Dr. Latesha Elena MD; Dr. Chiki Gonzales MD Signed Normal [facility] Platelet countOrdered By: Melody Krueger on 12-06-2024 Platelets (Bld) [#/Vol] 167 10*3/uL 150-450 [facility] RBC Auto (Bld) [#/Vol]Ordere d By: Adina Krueger on 12-06-2024 RBC (Bld) [#/Vol] 3.00 10*6/uL Low 4.2-5.4 [facility] Urine Cultureon 12-06-2024 URC Escherichia coli [place] Count 11,000-25,000 Escherichia coli: REACTION Ampicillin Islt CELESTINO 16 Ampicillin+Sulbac Islt CELESTINO 4 S Cefepime Islt CELESTINO <=0.12 S cefTRIAXone Islt CELESTINO <=0.25 S Ciprofloxacin Islt CELESTINO <=0.06 S B-Lactamase Extended Susc Islt NEG Gentamicin Islt CELESTINO <=1 S levoFLOXacin Islt CELESTINO <=0.12 S Meropenem Islt CELESTINO <=0.25 S Nitrofurantoin Islt CELESTINO <=16 S Pip+Tazo Islt CELESTINO <=4 S TMP SMX Islt CELESTINO <=20 S Normal [facility] Comment on above: Performed By: #### L 400.0001, M100.2200 #### [facility] [address] [place], [address] White blood cell (WBC) count Ordered By: Adina Krueger on 12-06-2024 WBC (Bld) [#/Vol] 14.8 10*3/uL High 4.4-11.0 [facility] OB Triage Physician Noteon 0 12-05-2024 OB Triage Physician Note [facility] Medical Records Department [address] [place] [address] OB Triage Physician Note 12/05/24 1333 MR#: [id number] Acct: [id number] Name: HILLARY FRAIRE Rep #: [id number] : 1990 34 From: Adina Krueger MD PCP: Dr. Chiki Gonzales MD Status:ADM IN Y Location: [place] [address] HPI - General General Date of Admission: 12/04/24 Date of Service: 12/05/24 Chief Complaint: kidney stone, flank pain, recurrent UTI at 34 weeks HPI Narrative This is her daily progress note. HILLARY FRAIRE, is a 34 F who presents @ 34+ weeks w/ c/o flank pain. Dx w/ UTI, likely pylo and antibiotics started based on sensitivities from last urine culture. CT ordered and kidney stone noted. Patient initially placed under observation for suspected pylo. Maternal Data Information Final BRITTANY: 01/14/25 Gestational age: 34 2/7 PFSH PFSH Medical History (Updated 12/05/24 @ 13:[address] Adina Krueger MD) Hydronephrosis Ureteropelvic junction calculus SROM (spontaneous rupture of membranes) Anxiety Home Medications ???Medication ???Instructions ???Recorded ???Last Taken ???Type nbwknmvt-alx-Ni-FA 1 mg 1 tab PO DAILY 01/08/21 01/08/21 10:00 History tablet acetaminophen 500 mg tablet 1,000 mg (2 x 500 mg) PO Q6H PRN 1 Unknown Rx PRN Pain 1-10 Or Fever #0 tabs aspirin 81 mg capsule 81 mg PO DAILY 12/04/24 Unknown Hi story nitrofurantoin 100 mg PO DAILY UTI 12/04/24 Unkno wn History monohydrate/macrocry stals 100 mg capsule (Macrobid) Allergy/AdvReac Type Severity Reaction Status Date / Time No Known Allergies Allergy Verified 12/04/24 11:01 Surgical History H/O wisdom tooth extraction Social History Smoking Status: Former smoker History Elective abortions Hx Para 0 Spontaneous abortions Hx # Term Pregnancies Ectopic pregnancies Hx # Pregnancies Multiple births # of living children Physical Exam Const alert and no apparent distress General Appearance: cooperative Orientation / Consciousness: awake HEENT normocephalic GI GI Narrative: abd soft, gravid, non tender, fundus appropriate for gestational age Narrative: CVA tenderness right side Extremity Extremity Narrative: trace edema, symmetrical NST FHR Rate Baby A Baseline: 140 Variability:: Moderate Accelerations:: 15 x 15 Decelerations:: None NST Reactive:: Yes Uterine Activity:: irreg ctxs Assessment Plan (1) Hydronephrosis: QUALIFIERS: Hydronephrosis type: with ureteropelvic junction obstruction Qualified Code(s): Q62.11 - Congenital occlusion of ureteropelvic junction COMMENT: plan stent tomorrow w/ urology then d/c home (2) Ureteropelvic junction calculus: COMMENT: see urology consult, NPO after midnight in anticipation of surgery. Increase IVF to `100cc/hr when NPO (3) 34 weeks gestation of : (4) Recurrent UTI (urinary tract infection) complicating : COMMENT: Ecoli UTI in . Macrobid 100mg PO once daily for prophylaxis. Will likely change antibiotics when d/rosemary home (5) Pyelonephritis affecting : COMMENT: Cefepime 1gr IVPB. Will transition to oral Bactrim. CT showed stone and hydronephrosis. Consult w/ Dr. Elena-plan for surgery today With stone and plan for surgery and suspected pylo- culture pending will change status to full admission. (6) High risk multigravida in third trimester: COMMENT: NSt daily, monitor for signs/symptoms of labor. Encouraged to push fluids, ambulate frequently. SCDs for VTE prophylaxis 12/05/24 3997 Date Adina Krueger MD Cosigner Signature (if applicable): Date _ CC: Dr. Chiki Gonzales MD; Dr. Adina Krueger MD Signed ADDENDUM by Dr. Adina Krueger MD on 12/05/24 at 1359 Addendum reveiwed GRDAY scoring as likely will require narcotics prn for pain control HPI addendum- denies vb/lof/ctxs. Good FM. Nausea controlled, some decreased appetite. No BM today but normal one yesterday. Denies chills or dysuria or hematuria 12/05/24 1359 Date Adina Krueger MD cc: Dr. Chiki Gonzales MD; Dr. Adina Krueger MD * Signed Normal [facility] Abdomen/Pelvis without Conto n 12-04-2024 Abdomen/Pelvis without Cont [facility] Imaging Services [address] [place] [address] [id number] Abdomen/Pelvis without Cont MR#: [id number] Acct: [id number] Name: HILLARY FRAIRE Rep #: [id number] : 1990 F 34 From: Breezy Paige MD PCP: Dr. Chiki Gonzales MD Status: REG CLI Study: Abdomen/Pelvis without Cont Date of Exam: 11/07 Exam# [id number] Ordering Dr: Sheyla Moreno CNM PROCEDURE: ABDOMEN/PELVIS WITHOUT CONT 12/04/2024 REASON FOR EXAM: FLANK PAIN TECHNIQUE: Procedure Code: CTABDPEL Modality: CT Procedure: ABDOMEN/PELVIS WITHOUT CONT Noncontrast technique limits evaluation of the abdominal and pelvic viscera. Coronal and Sagittal reconstruction series were provided. One or more dose reduction techniques were used (e.g., Automated exposure control, adjustment of the mA and/or kV according to patient size, use of iterative reconstruction technique). RADIATION DOSE SUMMARY: CTDlvol: 22 mGy DLP: 1320 mGycm FINDINGS: Normal appearance of the liver and spleen without contrast. Nonobstructing punctate renal calculus is present. There is a stone at the left UPJ which measures 16 by 11 mm. The patient is . The position is cephalic. There is no free-fluid. There is no free air. There is no bowel obstruction. The placenta is anterior. CT/Abdomen/Pelvis without Cont IMPRESSION: Obstructing stone left UPJ measuring 16 x 11 mm. Left-sided hydronephrosis. Reading [facility] CC: CARLOS Moreno; Dr. Chiki Gonzales MD Rubber Down: Signed Normal [facility] Bilirubin Test strip Ql (U)O rdered By: Sheyla Moreno on 12-04-2024 Bilirubin Ql (U) Negative Negative [facility] CBC W/Diff, Automatedon 11-07 Absolute Lymph 1.65 X10 3/uL Normal 0.83-4.51 [facility] Comment on above: Performed By: #### L 100.0100 #### [facility] [address] [place], [address] Absolute Neut 11.2 X10 3/uL High 2.0-7.7 [facility] Comment on above: Performed By: #### L 100.0100 #### [facility] [address] [facility] [facility], [address] Basophils/100 WBC (Bld) 0.3 % Normal 0-1 [facility] Comment on above: Performed By: #### L 100.0100 #### [facility] [address] [place], [address] Eosinophils/100 WBC (Bld) 0.1 % Normal 0-5 [facility] Comment on above: Performed By: #### L 100.0100 #### [facility] [address] [place], [address] Erythrocyte distribution width (RBC) [Ratio] 12.7 % Normal 11.6-14.6 [facility] Comment on above: Performed By: #### L 100.0100 #### [facility] [address] [place], [address] Hematocrit (Bld) [Volume fraction] 32.2 % Low 37-47 [facility] Comment on above: Performed By: #### L 100.0100 #### [facility] [address] [place], [address] Hemoglobin (Bld) [Mass/Vol] 11.0 g/dL Low 12.0-15.0 [facility] Comment on above: Performed By: #### L 100.0100 #### [facility] [address] [place], [address] IG% 0.900 Normal 0.0-0.9 [facility] Comment on above: Result Comment: IG% - Immature Granulocytes (promyelocytes, myelocytes and metamyelocytes) > 1% indicates that a LEFT SHIFT is Present. Performed By: #### L 100.0100 #### [facility] [address] [place], [address] Lymphocytes/100 WBC (Bld) 12.0 % Low 19-41 [facility] Comment on above: Performed By: #### L 100.0100 #### [facility] [address] [place], [address] MCH (RBC) [Entitic mass] 30.8 pg Normal 27.0-32.0 [facility] Comment on above: Performed By: #### L 100.0100 #### [facility] [address] [place], [address] MCHC (RBC) [Mass/Vol] 34.2 g/dL Normal 32-36 [facility] Comment on above: Performed By: #### L 100.0100 #### [facility] [address] [place], [address] MCV (RBC) [Entitic vol] 90.2 fL Normal 81-99 [facility] Comment on above: Performed By: #### L 100.0100 #### [facility] [address] [place], [address] Monocytes/100 WBC (Bld) 5.4 % Normal 0-10 [facility] Comment on above: Performed By: #### L 100.0100 #### [facility] [address] [place], [address] Neutrophils/100 WBC (Bld) 81.3 % High 47-70 [facility] Comment on above: Performed By: #### L 100.0100 #### [facility] [address] [place], [address] Nucleated RBC (Bld) [#/Vol] 0 10*3/uL Normal 0-5 [facility] Comment on above: Performed By: #### L 100.0100 #### [facility] [address] [place], [address] Platelet mean volume (Bld) [Entitic vol] 11.8 fL Normal 6.2-12.0 [facility] Comment on above: Performed By: #### L 100.0100 #### [facility] [address] [place], [address] Platelets (Bld) [#/Vol] 185 10*3/uL Normal 150-450 [facility] Comment on above: Performed By: #### L 100.0100 #### [facility] [address] [place], [address] RBC (Bld) [#/Vol] 3.57 10*6/uL Low 4.2-5.4 [facility] Comment on above: Performed By: #### L 100.0100 #### [facility] [address] [place], [address] RDW SD 41.8 fl Normal 35.1-43.9 [facility] Comment on above: Performed By: #### L 100.0100 #### [facility] [address] [place], [address] WBC (Bld) [#/Vol] 13.8 10*3/uL High 4.4-11.0 [facility] Comment on above: Performed By: #### L 100.0100 #### [facility] [address] [place], [address] CNPNon 12-04-2024 CNPN Telephone (GYNMN) HILLARY FRAIRE ([id number]) 1990 F Date Time Provider Department 12/04/24 AMISHA ALBERTO GYNOH During your visit today, we recorded the following information about you: Amisha Alberto MD 12/04/2024 1:45 PM Addendum Telephone Encounter Hillary Chavezler [id number] Provider: Dr. Baltazar Patient identity verified by name and . Hillary Fraire is a 34 year old at 34w1d. Attempted to call patient x3 regarding pain, sent to [employer]. Voicemail is full, unable to leave message. Amisha Alberto MD Allergies As of Date: 12/04/2024 (No Known Allergies) Date Reviewed: 11/26/2024 Reviewed by: Apollo Penn LPN - Fully Assessed Prescriptions as of 12/04/2024 - famotidine (PEPCID) 20 mg tablet Take 1 tablet by mouth two times a day. - aspirin, enteric coated (ECOTRIN LOW STRENGTH) 81 mg EC tablet Take 1 tablet by mouth once daily. - vit/iron fum/folic ac ( 1 + 1 ORAL) Take by mouth once daily. Problem List As Of Date 12/04/2024 Noted Resolved Spotting in early (HCC) [O26.859] 06/08/2020 10/27/2024 Obesity in (HCC) [O99.210] 06/08/2020 10/27/2024 Nausea and vomiting during [O21.9] 06/08/2020 09/13/2020 History of anxiety [Z86.59] 06/08/2020 10/27/2024 Patient request for diagnostic testing [Z01.89] 06/08/2020 07/19/2020 , supervision, high-risk, unspecified *09/13/2020 Marginal insertion of umbilical cord affecting *09/13/2020 02/20/2021 Obesity affecting in third trimester *09/13/2020 Antepartum anemia complicating in thi*11/15/2020 COVID-19 vaccine series declined [Z28.21, Z28.3*12/13/2020 10/27/2024 Nausea [R11.0] 05/24/2024 10/27/2024 History of pre-eclampsia [Z86.79, Z8*06/07/2024 BMI 38.0-38.9,adult [Z68.38] 06/07/2024 History of anemia [Z86.2] 06/07/2024 Generalized anxiety disorder [F41.1] UTI (urinary tract infection) in , ant*06/09/2024 Chronic hypertension in (HCC) [O10.91*09/03/2024 Encounter Status:Closed by AMISHA ALBERTO on 12/04/24 Normal [facility] Glomerular filtration rate ( GFR) estimation/1.73 sq m using serum, plasma, or whole bOrdered By: Sheyla Moreno on 12-04-2024 GFR/1.73 sq M.predicted among non-blacks MDRD (S/P/Bld) [Vol rate/Area] 76 mL/min/{1.73_m2} >60 [facility] Comment on above: mL/min/1.73m2 CKD-EP I Creatinine Equation (2020) Ketones Test strip Ql (U)Ord ered By: Sheyla Moreno on 12-04-2024 Ketones Ql (U) Negative Negative [facility] Microscopic analysis of urin e for red blood cells (RBC)Ordered By: Sheyla Moreno on 12-04-2024 Microscopic analysis of urine for red blood cells (RBC) 0-5 SEEN /hpf 0-5 [facility] Mucus LM Ql (Urine sed)Order ed By: Sheyla Moreno on 12-04-2024 Mucus Ql (Urine sed) 0 SEEN /hpf [facility] Nitrite Test strip Ql (U)Ord ered By: Sheyla Moreno on 12-04-2024 Nitrite Ql (U) Negative Negative [facility] OB Triage Physician Noteon 0 12-04-2024 OB Triage Physician Note [facility] Medical Records Department [address] [place] [address] OB Triage Physician Note 12/04/24 1131 MR#: [id number] Acct: [id number] Name: HILLARY FRAIRE Rep #: [id number] : 1990 34 From: Sheyla Moreno CNM PCP: Dr. Chiki Gonzales MD Status:REG CLI Y Location: [place] [id number] HPI - General General Date of Service: 12/04/24 HPI Narrative HILLARY FRAIRE, is a 34 F who presents who presents at 34 weeks with BRITTANY: 01/14/25 with complaints of leftsided back pain wrapping around from left lower abdomen. Started last night, did not get any sleep and difficulty sitting still due to pain. Denies any vaginal bleeding, fluid leakage, pain with urination, bleeding with urination, or contractions. Does not feel like labor and pain in left groin wrapping around to back. with persistent UTI and currently taking Macrobid 100mg PO once daily for prophylaxis. Maternal Data Information Final BRITTANY: 01/14/25 [facility] Medical History (Updated 12/04/24 @ 12:46 by Sheyla Moreno CNM) SROM (spontaneous rupture of membranes) Anxiety Home Medications ???Medication ???Instructions ???Recorded ???Last Taken ???Type tptdyvie-vtb-Pg-FA 1 mg 1 tab PO DAILY 01/08/21 01/08/21 10:00 History tablet acetaminophen 500 mg tablet 1,000 mg (2 x 500 mg) PO Q6H PRN 1 0/09/21 Unknown Rx PRN Pain 1-10 Or Fever #0 tabs aspirin 81 mg capsule 81 mg PO DAILY 12/04/24 Unknown Hi story nitrofurantoin 100 mg PO DAILY UTI 12/04/24 Unkno wn History monohydrate/macrocry stals 100 mg capsule (Macrobid) Allergy/AdvReac Type Severity Reaction Status Date / Time No Known Allergies Allergy Verified 12/04/24 11:01 Surgical History (Updated 01/09/21 @ 00:26 by Madison Hines) H/O wisdom tooth extraction Social History Smoking Status: Former smoker History Elective abortions Hx Para 0 Spontaneous abortions Hx # Term Pregnancies Ectopic pregnancies Hx # Pregnancies Multiple births # of living children ROS Constitutional Constitutional: Reports systems reviewed and no addt'l complaints, except as documented; Denies headache(s) Eyes Eyes: Denies acute decrease in peripheral vision, blurry vision or change in vision ENT HEENT: Reports systems reviewed and no addt'l complaints, except as documented Cardiovascular Cardiovascular: Denies chest pain or dizziness Respiratory/Chest Respiratory/Chest: Denies cough, dyspnea, dyspnea on exertion, shortness of breath at rest or shortness of breath with exertion Gastrointestinal Gastrointestinal: Reports abdominal pain, nausea, vomiting and other Details: left lower groin pain that is wrapping around to left side of back/flank ; Denies diarrhea Genitourinary Genitourinary: Denies abdominal discomfort or movement Musculoskeletal Musculoskeletal: Denies limited range of motion Integumentary Integumentary: Reports systems reviewed and no addt'l complaints, except as documented Neurologic Neurologic: Reports systems reviewed and no addt'l complaints, except as documented Psychiatric Psychiatric: Reports systems reviewed and no addt'l complaints, except as documented Endocrine Endocrinology: Reports systems reviewed and no addt'l complaints, except as documented Hematologic/Lymphati c Hematologic/Lymphati c: Reports systems reviewed and no addt'l complaints, except as documented Allergic/Immunologic Allergic/Immunologic : Reports systems reviewed and no addt'l complaints, except as documented Physical Exam Const alert and oriented x3 Constitutional Narrative: Visibly in pain/discomfort, unable to sit still in the bed General Appearance: cooperative Orientation / Consciousness: awake, oriented to person, oriented to place and oriented to time Exam Limitations: no limitations HEENT normocephalic Head and Scalp: normal to inspection, normocephalic and atraumatic Face and Sinus: normal facial exam Eyes General Eye: normal appearance of both eyes Neck full ROM Chest Chest: symmetrical chest wall rise Resp normal respiratory effort and normal air movement Auscultation: clear to auscultation bilaterally Cardio regular rate, regular rhythm, S1 normal heart sound, S2 normal heart sound, no murmurs, no rub, no gallops and no clicks GI normal to inspection, nondistended, normoactive bowel sounds and non-tender Auscultation: normoactive bowel sounds Palpation: other Other Details: soft, non tender. appearance of the vagina normal Bladder / Kidney Exam: CVA tenderness left Back/Spine normal ROM Extremity normal to inspection and full ROM Skin no rashes or lesions noted Neuro oriented x3, CN's II-XII intact bilaterally and moves all extremities Sensorium / Orientation: awake, alert and oriented to person Tonia (more content not included)... Normal [facility] Protein Test strip Ql (U)Ord ered By: Sheyla Moreno on 12-04-2024 Protein Ql (U) 15 mg/dl High Negative [facility] Serum Creatinine AND GFRon 0 12-04-2024 Creatinine [Mass/Vol] 1.00 mg/dL Normal 0.70-1.20 [facility] Comment on above: Performed By: #### L 501.1105 #### [facility] [address] [place], [address] ECRCL 118.54 ml/min Normal 50-250 [facility] Comment on above: Performed By: #### L 501.1105 #### [facility] [address] [place], [address] GFR/1.73 sq M.predicted among non-blacks MDRD (S/P/Bld) [Vol rate/Area] 76 mL/min/{1.73_m2} Normal >60 [facility] Comment on above: Result Comment: mL/m in/1.73m2 CKD-EPI Creatinine Equation (2020) Performed By: #### L 501.1105 #### [facility] [address] [place], [address] Serum creatinine measurement (mass/volume)Ordered By: Sheyla Moreno on 12-04-2024 Creatinine [Mass/Vol] 1.00 mg/dL 0.70-1.20 [facility] Squamous epithelial cells de tection in urine sediment by light microscopyOrdered By: Sheyla Moreno on 12-04-2024 Epithelial cells.squamous LM Ql (Urine sed) 0-5 SEEN /hpf 5-10 [facility] Urinalysis, Completeon 12-04 EPI,SQUAMOUS 0-5 SEEN Normal 5-10 [facility] Comment on above: Order Comment: CLEAN CATCH Performed By: #### L 400.0001, M100.2200 #### [facility] [address] [place], [address] RBC 0-5 SEEN Normal 0-5 [facility] Comment on above: Order Comment: CLEAN CATCH Performed By: #### L 400.0001, M100.2200 #### [facility] [address] [place], [address] WBC 5-10 SEEN Normal 0-5 [facility] Comment on above: Order Comment: CLEAN CATCH Performed By: #### L 400.0001, M100.2200 #### [facility] [address] [place], [address] BACTERIA 0 SEEN Normal None Seen [facility] Comment on above: Order Comment: CLEAN CATCH Performed By: #### L 400.0001, M100.2200 #### [facility] [address] [place], [address] Mucus Ql (Urine sed) 0 SEEN Normal [facility] Comment on above: Order Comment: CLEAN CATCH Performed By: #### L 400.0001, M100.2200 #### [facility] [address] [place], [address] Urine clarityOrdered By: Alessandra Moreno on 12-04-2024 Clarity (U) Sl. Cloudy Clear [facility] Urine color determinationOrd ered By: Sheyla Moreno on 12-04-2024 Color (U) Yellow Yellow [facility] Urine cultureOrdered By: Alessandra Moreno on 12-04-2024 Bacteria identified Cx Nom (U) Escherichia coli Abnormal [facility] Urine glucose detectionOrder ed By: Sheyla Moreno on 12-04-2024 Glucose Ql (U) Normal mg/dl Normal [facility] Urine leukocyte esterase det ection by dipstickOrdered By: Sheyla Moreno on 12-04-2024 Leukocyte esterase Test strip Ql (U) 25 /ul High Negative [facility] Urine pHOrdered By: Sheyla Moreno on 12-04-2024 pH (U) 7.0 [pH] 5.0 - 8.0 [facility] Urine sediment bacteria coun t by microscopy (number/high power field)Ordered By: Sheyla Moreno on 12-04-2024 Bacteria LM.HPF (Urine sed) [#/Area] 0 /[HPF] None Seen [facility] Urine specific gravity measu rementOrdered By: Sheyla Moreno on 12-04-2024 Specific gravity (U) [Rel density] 1.015 1.002-1.030 [facility] Urine urobilinogen measureme ntOrdered By: Sheyla Moreno on 12-04-2024 Urobilinogen Ql (U) 1 mg/dl High Normal [facility] White blood cell countOrdere d By: Sheyla Moreno on 12-04-2024 White blood cell count 5-10 SEEN /hpf 0-5 [facility] CBC W Auto Differential pane l (Bld)on 11-26-2024 Basophils (Bld) [#/Vol] 0.03 10*3/uL Normal <0.11 [facility] Comment on above: Order Comment: Speci men Type: BLOOD SPECIMENOrdering Facility: [facility] Address: [address] [place] [address] Performed By: #### 6 30-4 #### [facility] CLIA [id number] [address] [place] [address] [place] [address] [place] Basophils/100 WBC (Bld) 0.2 % Normal [facility] Comment on above: Order Comment: Speci men Type: BLOOD SPECIMENOrdering Facility: [facility] Address: [address] [place] [address] Performed By: #### 6 30-4 #### [facility] CLIA [id number] [address] [place] [address] [place] Differential cell count method Nom (Bld) Auto Normal [facility] Comment on above: Order Comment: Speci men Type: BLOOD SPECIMENOrdering Facility: [facility] Address: [address] [place] [address] Performed By: #### 6 30-4 #### [facility] CLIA [id number] [address] [place] [address] [place] Eosinophils (Bld) [#/Vol] 0.07 10*3/uL Normal <0.46 [facility] Comment on above: Order Comment: Speci men Type: BLOOD SPECIMENOrdering Facility: [facility] Address: [address] [place] [address] Performed By: #### 6 30-4 #### [facility] CLIA [id number] [address] [place] [address] [place] Eosinophils/100 WBC (Bld) 0.6 % Normal [facility] Comment on above: Order Comment: Speci men Type: BLOOD SPECIMENOrdering Facility: [facility] Address: [address] [place] [address] Performed By: #### 6 30-4 #### [facility] CLIA [id number] [address] [place] [address] [place] Erythrocyte distribution width (RBC) [Ratio] 13.0 % Normal 11.5-15.0 [facility] Comment on above: Order Comment: Speci men Type: BLOOD SPECIMENOrdering Facility: [facility] Address: [address] [place] [address] Performed By: #### 6 30-4 #### [facility] CLIA [id number] [address] [place] [address] [place] Hematocrit (Bld) [Volume fraction] 32.7 % Low 36.0-46.0 [facility] Comment on above: Order Comment: Speci men Type: BLOOD SPECIMENOrdering Facility: [facility] Address: [address] [place] [address] Performed By: #### 6 30-4 #### [facility] CLIA [id number] [address] [place] [address] [place] Hemoglobin (Bld) [Mass/Vol] 11.0 g/dL Low 11.5-15.5 [facility] Comment on above: Order Comment: Speci men Type: BLOOD SPECIMENOrdering Facility: [facility] Address: [address] [place] [address] Performed By: #### 6 30-4 #### [facility] CLIA [id number] [address] [place] [address] [place] Immature granulocytes (Bld) [#/Vol] 0.08 10*3/uL Normal <0.10 [facility] Comment on above: Order Comment: Speci men Type: BLOOD SPECIMENOrdering Facility: [facility] Address: [address] [place] [address] Performed By: #### 6 30-4 #### [facility] CLIA [id number] [address] [place] [address] [place] Immature granulocytes/100 WBC (Bld) 0.7 % Normal [facility] Comment on above: Order Comment: Speci men Type: BLOOD SPECIMENOrdering Facility: [facility] Address: [address] [place] [address] Performed By: #### 6 30-4 #### [facility] CLIA [id number] [address] [place] [address] [place] Lymphocytes (Bld) [#/Vol] 2.15 10*3/uL Normal 1.00-4.00 [facility] Comment on above: Order Comment: Speci men Type: BLOOD SPECIMENOrdering Facility: [facility] Address: [address] [place] [address] Performed By: #### 6 30-4 #### [facility] CLIA [id number] [address] [place] [address] [place] Lymphocytes/100 WBC (Bld) 17.7 % Normal [facility] Comment on above: Order Comment: Speci men Type: BLOOD SPECIMENOrdering Facility: [facility] Address: [address] [place] [address] Performed By: #### 6 30-4 #### [facility] CLIA [id number] [address] [place] [address] [place] MCH (RBC) [Entitic mass] 30.6 pg Normal 26.0-34.0 [facility] Comment on above: Order Comment: Speci men Type: BLOOD SPECIMENOrdering Facility: [facility] Address: [address] [place] [address] Performed By: #### 6 30-4 #### [facility] CLIA [id number] [address] [place] [address] [place] MCHC (RBC) [Mass/Vol] 33.6 g/dL Normal 30.5-36.0 [facility] Comment on above: Order Comment: Speci men Type: BLOOD SPECIMENOrdering Facility: [facility] Address: [address] [place] [address] Performed By: #### 6 30-4 #### [facility] CLIA [id number] [address] [place] [address] [place] MCV (RBC) [Entitic vol] 90.8 fL Normal 80.0-100.0 [facility] Comment on above: Order Comment: Speci men Type: BLOOD SPECIMENOrdering Facility: [facility] Address: [address] [place] [address] Performed By: #### 6 30-4 #### [facility] CLIA [id number] [address] [place] [address] [place] Monocytes (Bld) [#/Vol] 0.69 10*3/uL Normal <0.87 [facility] Comment on above: Order Comment: Speci men Type: BLOOD SPECIMENOrdering Facility: [facility] Address: [address] [place] [address] Performed By: #### 6 30-4 #### [facility] CLIA [id number] [address] [place] [address] [place] Monocytes/100 WBC (Bld) 5.7 % Normal [facility] Comment on above: Order Comment: Speci men Type: BLOOD SPECIMENOrdering Facility: [facility] Address: [address] [place] [address] Performed By: #### 6 30-4 #### [facility] CLIA [id number] [address] [place] [address] [place] Neutrophils (Bld) [#/Vol] 9.16 10*3/uL High 1.45-7.50 [facility] Comment on above: Order Comment: Speci men Type: BLOOD SPECIMENOrdering Facility: [facility] Address: [address] [place] [address] Performed By: #### 6 30-4 #### [facility] CLIA [id number] [address] [place] [address] [place] Neutrophils/100 WBC (Bld) 75.1 % Normal [facility] Comment on above: Order Comment: Speci men Type: BLOOD SPECIMENOrdering Facility: [facility] Address: [address] [place] [address] Performed By: #### 6 30-4 #### [facility] CLIA [id number] [address] [place] [address] [place] Nucleated RBC (Bld) [#/Vol] 10*3/uL Normal <0.01 [facility] Comment on above: Order Comment: Speci men Type: BLOOD SPECIMENOrdering Facility: [facility] Address: [address] [place] [address] Performed By: #### 6 30-4 #### [facility] CLIA [id number] [address] [place] [address] [place] Nucleated RBC/100 WBC (Bld) [Ratio] 0.0 /100 WBC Normal [facility] Comment on above: Order Comment: Speci men Type: BLOOD SPECIMENOrdering Facility: [facility] Address: [address] [place] [address] Performed By: #### 6 30-4 #### [facility] CLIA [id number] [address] [place] [address] [place] Platelet mean volume (Bld) [Entitic vol] 11.1 fL Normal 9.0-12.7 [facility] Comment on above: Order Comment: Speci men Type: BLOOD SPECIMENOrdering Facility: [facility] Address: [address] [place] [address] Performed By: #### 6 30-4 #### [facility] CLIA [id number] [address] [place] [address] [place] Platelets (Bld) [#/Vol] 223 10*3/uL Normal 150-400 [facility] Comment on above: Order Comment: Speci men Type: BLOOD SPECIMENOrdering Facility: [facility] Address: [address] [place] [address] Performed By: #### 6 30-4 #### [facility] CLIA [id number] [address] [place] [address] [place] RBC (Bld) [#/Vol] 3.60 10*6/uL Low 3.90-5.20 [facility] Comment on above: Order Comment: Speci men Type: BLOOD SPECIMENOrdering Facility: [facility] Address: [address] [place] [address] Performed By: #### 6 30-4 #### [facility] CLIA [id number] [address] [place] [address] [place] WBC (Bld) [#/Vol] 12.18 10*3/uL High 3.70-11.00 [facility] Comment on above: Order Comment: Speci men Type: BLOOD SPECIMENOrdering Facility: [facility] Address: [address] [place] [address] Performed By: #### 6 30-4 #### [facility] CLIA [id number] [address] [place] [address] [place] Examination level ultrasound on 11-26-2024 [facility] Radiology Study observation (narrative) [facility] Bacteria Ur Culton Bacteria identified Cx Nom (U) ORGANISM ID: 1 >=100,000 CFU/ml Escherichia coli ORGANISM ID: 1 (ESCHERICHIA COLI) ANTIBIOTIC INTERPRETATION CELESTINO STATUS REFERENCE RANGE Ampicillin I 16 F Susceptible <=8 , [...] , Intermediate >32 , Resistant >64 Abnormal [facility] Comment on above: Performed By: #### 2 276-4, 44957-8 #### [facility] CLIA [id number] [address] [place] [address] OF [facility] Demario 10-29-2024 DIMITRIOS Telephone (OBGYWM) HILLARY FRAIRE ([id number]) 1990 F Date Time Provider Department 10/29/24 KELLY BALTAZAR During your visit today, we recorded the following information about you: Karina Severino RN 10/29/2024 10:35 AM Signed Breast pump order received from [address] To SW to sign. HAL Young [...] early (HCC) [O26.859] 06/08/2020 10/27/2024 Obesity in ([facility]) [O99.210] 06/08/2020 10/27/2024 Nausea and vomiting during [...] Encounter Status:Closed by STACI HO on 10/29/24 Normal [facility] Bacteria Ur Culton 5 Bacteria identified Cx Nom (U) CULTURE, URINE: Mixed microbiota, including predominantly: ORGANISM ID: 1 50,000-<100,000 CFU/ml Escherichia coli ORGANISM ID: 1 (ESCHERICHIA COLI) ANTIBIOTIC INTERPRETATION CELESTINO STATUS REFERENCE RANGE Ampicillin R >=32 F Susceptible <=8 , [...] , Intermediate >32 , Resistant >64 Abnormal [facility] Comment on above: Performed By: #### 2 276-4, 69773-4 #### [facility] CLIA [id number] [address] [place] [address] [place] CBC W Auto Differential pane l (Bld)on 10-25-2024 Basophils (Bld) [#/Vol] 10*3/uL Normal <0.11 [facility] Comment on above: Order Comment: Speci men Type: FLUID SPECIMEN Ordering Facility: [facility] Address: [address] [place] [address] Performed By: #### L [id number] #### [facility] CLIA [id number] [address] [place] [address] [place] Basophils/100 WBC (Bld) 0.2 % Normal [facility] Comment on above: Order Comment: Speci men Type: FLUID SPECIMEN Ordering Facility: [facility] Address: [address] [place] [address] Performed By: #### L [id number] #### [facility] CLIA [id number] [address] [place] [address] [place] Differential cell count method Nom (Bld) Auto Normal [facility] Comment on above: Order Comment: Speci men Type: FLUID SPECIMEN Ordering Facility: [facility] Address: [address] [place] [address] Performed By: #### L [id number] #### [facility] CLIA [id number] [address] [place] [address] [place] Eosinophils (Bld) [#/Vol] 0.05 10*3/uL Normal <0.46 [facility] Comment on above: Order Comment: Speci men Type: FLUID SPECIMEN Ordering Facility: [facility] Address: [address] [place] [address] Performed By: #### L [id number] #### [facility] CLIA [id number] [address] [place] [address] [place] Eosinophils/100 WBC (Bld) 0.4 % Normal [facility] Comment on above: Order Comment: Speci men Type: FLUID SPECIMEN Ordering Facility: [facility] Address: [address] [place] [address] Performed By: #### L [id number] #### [facility] CLIA [id number] [address] [place] [address] [place] Erythrocyte distribution width (RBC) [Ratio] 12.7 % Normal 11.5-15.0 [facility] Comment on above: Order Comment: Speci men Type: FLUID SPECIMEN Ordering Facility: [facility] Address: [address] [place] [address] Performed By: #### L [id number] #### [facility] CLIA [id number] [address] [place] [address] [place] Hematocrit (Bld) [Volume fraction] 32.0 % Low 36.0-46.0 [facility] Comment on above: Order Comment: Speci men Type: FLUID SPECIMEN Ordering Facility: [facility] Address: [address] [place] [address] Performed By: #### L [id number] #### [facility] CLIA [id number] [address] [place] [address] [place] Hemoglobin (Bld) [Mass/Vol] 10.8 g/dL Low 11.5-15.5 [facility] Comment on above: Order Comment: Speci men Type: FLUID SPECIMEN Ordering Facility: [facility] Address: [address] [place] [address] Performed By: #### L [id number] #### [facility] CLIA [id number] [address] [place] [address] [place] Immature granulocytes (Bld) [#/Vol] 0.06 10*3/uL Normal <0.10 [facility] Comment on above: Order Comment: Speci men Type: FLUID SPECIMEN Ordering Facility: [facility] Address: [address] [place] [address] Performed By: #### L [id number] #### [facility] CLIA [id number] [address] [place] [address] [place] Immature granulocytes/100 WBC (Bld) 0.5 % Normal [facility] Comment on above: Order Comment: Speci men Type: FLUID SPECIMEN Ordering Facility: [facility] Address: [address] [place] [address] Performed By: #### L [id number] #### [facility] CLIA [id number] [address] [place] [address] [place] Lymphocytes (Bld) [#/Vol] 2.11 10*3/uL Normal 1.00-4.00 [facility] Comment on above: Order Comment: Speci men Type: FLUID SPECIMEN Ordering Facility: [facility] Address: [address] [place] [address] Performed By: #### L [id number] #### [facility] CLIA [id number] [address] [place] [address] [place] Lymphocytes/100 WBC (Bld) 17.1 % Normal [facility] Comment on above: Order Comment: Speci men Type: FLUID SPECIMEN Ordering Facility: [facility] Address: [address] [place] [address] Performed By: #### L [id number] #### [facility] CLIA [id number] [address] [place] [address] [place] MCH (RBC) [Entitic mass] 30.3 pg Normal 26.0-34.0 [facility] Comment on above: Order Comment: Speci men Type: FLUID SPECIMEN Ordering Facility: [facility] Address: [address] [place] [address] Performed By: #### L [id number] #### [facility] CLIA [id number] [address] [place] [address] [place] MCHC (RBC) [Mass/Vol] 33.8 g/dL Normal 30.5-36.0 [facility] Comment on above: Order Comment: Speci men Type: FLUID SPECIMEN Ordering Facility: [facility] Address: [address] [place] [address] Performed By: #### L [id number] #### [facility] CLIA [id number] [address] [place] [address] [place] MCV (RBC) [Entitic vol] 89.9 fL Normal 80.0-100.0 [facility] Comment on above: Order Comment: Speci men Type: FLUID SPECIMEN Ordering Facility: [facility] Address: [address] [place] [address] Performed By: #### L [id number] #### [facility] CLIA [id number] [address] [place] [address] [place] Monocytes (Bld) [#/Vol] 0.59 10*3/uL Normal <0.87 [facility] Comment on above: Order Comment: Speci men Type: FLUID SPECIMEN Ordering Facility: [facility] Address: [address] [place] [address] Performed By: #### L [id number] #### [facility] CLIA [id number] [address] [place] [address] [place] Monocytes/100 WBC (Bld) 4.8 % Normal [facility] Comment on above: Order Comment: Speci men Type: FLUID SPECIMEN Ordering Facility: [facility] Address: [address] [place] [address] Performed By: #### L [id number] #### [facility] CLIA [id number] [address] [place] [address] [place] Neutrophils (Bld) [#/Vol] 9.50 10*3/uL High 1.45-7.50 [facility] Comment on above: Order Comment: Speci men Type: FLUID SPECIMEN Ordering Facility: [facility] Address: [address] [place] [address] Performed By: #### L [id number] #### [facility] CLIA [id number] [address] [place] [address] [place] Neutrophils/100 WBC (Bld) 77.0 % Normal [facility] Comment on above: Order Comment: Speci men Type: FLUID SPECIMEN Ordering Facility: [facility] Address: [address] [place] [address] Performed By: #### L [id number] #### [facility] CLIA [id number] [address] [place] [address] [place] Nucleated RBC (Bld) [#/Vol] 10*3/uL Normal <0.01 [facility] Comment on above: Order Comment: Speci men Type: FLUID SPECIMEN Ordering Facility: [facility] Address: [address] [place] [address] Performed By: #### L [id number] #### [facility] CLIA [id number] [address] [place] [address] [place] Nucleated RBC/100 WBC (Bld) [Ratio] 0.0 /100 WBC Normal [facility] Comment on above: Order Comment: Speci men Type: FLUID SPECIMEN Ordering Facility: [facility] Address: [address] [place] [address] Performed By: #### L [id number] #### [facility] CLIA [id number] [address] [place] [address] [place] Platelet mean volume (Bld) [Entitic vol] 11.5 fL Normal 9.0-12.7 [facility] Comment on above: Order Comment: Speci men Type: FLUID SPECIMEN Ordering Facility: [facility] Address: [address] [place] [address] Performed By: #### L [id number] #### [facility] CLIA [id number] [address] [place] [address] [place] Platelets (Bld) [#/Vol] 223 10*3/uL Normal 150-400 [facility] Comment on above: Order Comment: Speci men Type: FLUID SPECIMEN Ordering Facility: [facility] Address: [address] [place] [address] Performed By: #### L [id number] #### [facility] CLIA [id number] [address] [place] [address] [place] RBC (Bld) [#/Vol] 3.56 10*6/uL Low 3.90-5.20 [facility] Comment on above: Order Comment: Speci men Type: FLUID SPECIMEN Ordering Facility: [facility] Address: [address] [place] [address] Performed By: #### L [id number] #### [facility] CLIA [id number] [address] [place] [address] [place] WBC (Bld) [#/Vol] 12.33 10*3/uL High 3.70-11.00 [facility] Comment on above: Order Comment: Speci men Type: FLUID SPECIMEN Ordering Facility: [facility] Address: [address] [place] [address] Performed By: #### L [id number] #### [facility] CLIA [id number] [address] [place] [address] [place] Examination level ultrasound on 10-25-2024 [facility] Radiology Study observation (narrative) Stanislaw Pappas 2024 Ferritin [Mass/Vol] 31.2 ng/mL Normal 14.7-205.1 [facility] Comment on above: Order Comment: Anat ahmadi Type: BLOOD SPECIMEN Ordering Facility: [facility] Address: [address] [place] [address] Performed By: #### 2 276-4, 89757-5 #### [facility] CLIA [id number] [address] [place] [address] [place] GESTATIONAL GLUCOSE SCREEN, 1-HOUR, 50 GRAM, NON-FASTINGon 10-25-2024 Glucose [Mass/Vol] 120 mg/dL Normal 74-134 [facility] Comment on above: Order Comment: Anat ahmadi Type: FLUID SPECIMEN Ordering Facility: [facility] Address: [address] [place] [address] Result Comment: [facility] [employer] (Piotr/Primo) guidelines state a gestational diabetes mellitus positive screen is made, in women not previously diagnosed with overt diabetes, when the 1 hr plasma glucose level is equal to or above 140 mg/dL. The [facility] [place] recommends a 135 mg/dL cutoff. Performed By: #### L [id number] #### [facility] CLIA [id number] [address] [place] [address] [place] Iron and Iron binding capaci ty panelon 10-25-2024 Iron [Mass/Vol] 41 ug/dL Normal 41-186 [facility] Comment on above: Order Comment: Anat ahmadi Type: BLOOD SPECIMEN Ordering Facility: [facility] Address: [address] [place] [address] Performed By: #### 2 276-4, 16722-6 #### [facility] CLIA [id number] [address] [place] [address] [place] Iron binding capacity [Mass/Vol] 453 ug/dL High 232-386 [facility] Comment on above: Order Comment: Anat ahmadi Type: BLOOD SPECIMEN Ordering Facility: [facility] Address: [address] [place] [address] Performed By: #### 2 276-4, 96232-1 #### [facility] CLIA [id number] [address] [place] [address] [place] Iron/TIBC [Molar ratio] 9.1 % Low 15.0-57.0 C [facility] Comment on above: Order Comment: Speci men Type: BLOOD SPECIMEN Ordering Facility: [facility] Address: [address] [place] [address] Performed By: #### 2 276-4, 93782-0 #### [facility] CLIA [id number] [address] [place] [address] [place] Reagin and Treponema pallidu m IgG and IgM [Interp]on 10-25-2024 T. pallidum IgG+IgM IA Ql (S) Non-Reactive Normal Nonreactive [facility] Comment on above: Order Comment: Speci men Type: BLOOD SPECIMENOrdering Facility: [facility] Address: [address] [place] [address] Performed By: #### 6 30-4 #### [facility] CLIA [id number] [address] [place] [address] [place] Reagin+T pallidum IgG+IgM Se rPl-Impon 10-25-2024 Reagin and Treponema pallidum IgG and IgM [Interp] Cannot exclude recent Treponemal infection if specimen collected within 7-10 days after appearance of suspect lesions or 2-3 weeks after an exposure. Clinical correlation is required. Normal [facility] Comment on above: Order Comment: Speci men Type: BLOOD SPECIMENOrdering Facility: [facility] Address: [address] [place] [address] Performed By: #### 6 30-4 #### [facility] CLIA [id number] [address] [place] [address] [place] Bacteria Ur Culton 5 Bacteria identified Cx Nom (U) CULTURE, URINE: Mixed microbiota, including predominantly: ORGANISM ID: 1 50,000-<100,000 CFU/ml Escherichia coli ORGANISM ID: 1 (ESCHERICHIA COLI) ANTIBIOTIC INTERPRETATION CELESTINO STATUS REFERENCE RANGE Ampicillin I 16 F Susceptible <=8 , [...] , Intermediate >32 , Resistant >64 Abnormal [facility] Comment on above: Performed By: #### 2 276-4, 43989-5 #### [facility] CLIA [id number] [address] [place] [address] STATES OF [facility] Examination level ultrasound on 09-05-2024 Indication Detailed [...] 14 oz EFW by: Hadlock (HC-AC-FL) Extended Surfacer 5.3 mm CM 3.5 mm 6% Nicolaides [...] normal LVOT view: normal 3-vessel view: normal 9-sgwxez-kzlusgz view: normal Heart / Thorax Situs: situs [...] Read By: Jessica Banerjee M.D. MATERNAL MEDICINE [facility] Bacteria Ur Culton 5 Bacteria identified Cx Nom (U) ORGANISM ID: 1 >=100,000 CFU/ml Escherichia coli ORGANISM ID: 1 (ESCHERICHIA COLI) ANTIBIOTIC INTERPRETATION CELESTINO STATUS REFERENCE RANGE Ampicillin I 16 F Susceptible <=8 , [...] , Intermediate >32 , Resistant >64 Abnormal [facility] Comment on above: Performed By: #### 2 276-4, 75021-5 #### [facility] CLIA [id number] [address] [place] [address] OF [facility] Examination level ultrasound on 09-03-2024 Radiology Study observation (narrative) [facility] UA DIP, URINE (POC)on 2024 BILIRUBIN UA (POCT) Negative Negative [facility] CLARITY UA (POCT) Cloudy [facility] COLOR UA (POCT) Dark yellow [facility] GLUCOSE UA (POCT) Negative Negative mg/dL [facility] Hemoglobin Ql (U) Negative Negative [facility] Interpretation and review of laboratory results Abnormal [facility] KETONE UA (POCT) Negative Negative mg/dL [facility] LEUKOCYTES UA (POCT) Trace Abnormal Negative [facility] NITRITE UA (POCT) Positive Abnormal Negative [facility] PH UA (POCT) 7.5 4.5 - 8.0 [facility] Protein Ql (U) Negative Negative mg/dL [facility] SPECIFIC GRAVITY UA (POCT) 1.015 1.005 - 1.030 [facility] UROBILINOGEN UA (POCT) 2 Abnormal Normal E.U./d L [facility] Location:[facility], [address], [place], [address] [facility] POINT OF CARE [facility] Bacteria Ur Culton 5 Bacteria identified Cx Nom (U) ORGANISM ID: 1 >=100,000 CFU/ml Escherichia coli ORGANISM ID: 1 (ESCHERICHIA COLI) ANTIBIOTIC INTERPRETATION CELESTINO STATUS REFERENCE RANGE Ampicillin I 16 F Susceptible <=8 , [...] , Intermediate >32 , Resistant >64 Abnormal [facility] Comment on above: Performed By: #### 6 30-4 #### [facility] [place] [id number] [address] [place], [place] [id number] [facility] Demario 07-08-2024 CNPN Telephone (OBGYWM) HILLARY FRAIRE ([id number]) 1990 F Date Time Provider Department 07/08/24 [...] by KELLY BALTAZAR on 07/08/24 [facility] Bacteria Ur Culton Bacteria identified Cx Nom (U) ORGANISM ID: 1 >=100,000 CFU/ml Escherichia coli ORGANISM ID: 1 (ESCHERICHIA COLI) ANTIBIOTIC INTERPRETATION CELESTINO STATUS REFERENCE RANGE Ampicillin I 16 F Susceptible <=8 , [...] , Intermediate >32 , Resistant >64 Abnormal [facility] Comment on above: Performed By: #### 2 276-4, 91576-1 #### [facility] CLIA [id number] [address] [place] [address] STATES OF [facility] Examination level ultrasound on 07-05-2024 Indication First trimester anatomic survey Maternal obesity, BMI >35 Impression REMOTE READ The patient is referred for a first trimester anatomy scan including nuchal translucency measurement as clinically indicated. - Single, live, intrauterine . - [place] I rump length measurement is consistent with the [...] view: normal 4-chamber view with color: normal 8-kdjqpm-kezrbhv view: normal Abdominal cord insertion: normal Stomach: [...] Lt ovary: Not visualized Performed By: Eden Aly RDMS, RVT Read By: Marbella Mcgee M.D. MATERNAL MEDICINE [facility] Radiology Study observation (narrative) Stanislaw geiger [facility] Hepatic function 2000 panelO rdered By: Ashley Lemus on 07-05-2024 Albumin [Mass/Vol] 4.1 g/dL 3.9 - 4.9 g/dL [facility] ALP [Catalytic activity/Vol] 71 U/L 34 - 123 U/L [facility] ALT [Catalytic activity/Vol] 11 U/L 7 - 38 U/L [facility] AST [Catalytic activity/Vol] 8 U/L Low 13 - 35 U/L [facility] Bilirubin [Mass/Vol] 0.4 mg/dL 0.2 - 1 .3 mg/dL [facility] Bilirubin.conjugated [Mass/Vol] 0.1 mg/dL NINF - 0.3 mg/dL [facility] Interpretation and review of laboratory results Abnormal [facility] Protein [Mass/Vol] 7.3 g/dL 6.3 - 8.0 g/dL [facility] Hepatic function 2000 panelo n 07-05-2024 Albumin [Mass/Vol] 4.1 g/dL Normal 3.9-4.9 [facility] Comment on above: Order Comment: Speci men Type: BLOOD SPECIMENOrdering Facility: [facility] Address: [address] [place] [address] Performed By: #### 6 30-4 #### [facility] CLIA [id number] [address] [place] [address] [place] ALP [Catalytic activity/Vol] 71 U/L Normal 34-123 [facility] Comment on above: Order Comment: Speci men Type: BLOOD SPECIMENOrdering Facility: [facility] Address: [address] [place] [address] Performed By: #### 6 30-4 #### [facility] CLIA [id number] [address] [place] [address] [place] ALT [Catalytic activity/Vol] 11 U/L Normal 7-38 [facility] Comment on above: Order Comment: Speci men Type: BLOOD SPECIMENOrdering Facility: [facility] Address: [address] [place] [address] Performed By: #### 6 30-4 #### [facility] CLIA [id number] [address] [place] [address] [place] AST [Catalytic activity/Vol] 8 U/L Low 13-35 [facility] Comment on above: Order Comment: Speci men Type: BLOOD SPECIMENOrdering Facility: [facility] Address: [address] [place] [address] Performed By: #### 6 30-4 #### [facility] CLIA [id number] [address] [place] [address] [place] Bilirubin [Mass/Vol] 0.4 mg/dL Normal 0.2-1.3 [facility] Comment on above: Order Comment: Speci men Type: BLOOD SPECIMENOrdering Facility: [facility] Address: [address] [place] [address] Performed By: #### 6 30-4 #### [facility] CLIA [id number] [address] [place] [address] [place] Bilirubin.conjugated [Mass/Vol] 0.1 mg/dL Normal <0.3 [facility] Comment on above: Order Comment: Speci men Type: BLOOD SPECIMENOrdering Facility: [facility] Address: [address] [place] [address] Performed By: #### 6 30-4 #### [facility] CLIA [id number] [address] [place] [address] [place] Protein [Mass/Vol] 7.3 g/dL Normal 6.3-8.0 [facility] Comment on above: Order Comment: Speci men Type: BLOOD SPECIMENOrdering Facility: [facility] Address: [address] [place] [address] Performed By: #### 6 30-4 #### [facility] CLIA [id number] [address] [place] [address] [place] [id number] PLUSon 07-05-2024 Cell-free DNA./Cell-free DNA.total Dosage of chromosome-specific cfDNA (cfDNA) [Molar fraction] 15% Normal [facility] Comment on above: Order Comment: Speci men Type: FLUID SPECIMEN Ordering Facility: [facility] Address: [address] [place] [address] Performed By: #### L [id number] #### [facility] CLIA [id number] [address] [place] [address] [place] Chr 13+18+21+X+Y aneuploidy Dosage of chromosome-specific cfDNA Ql (cfDNA) Negative Normal [facility] Comment on above: Order Comment: Speci men Type: FLUID SPECIMEN Ordering Facility: [facility] Address: [address] [place] [address] Performed By: #### L [id number] #### [facility] CLIA [id number] [address] [place] [address] Chr 21 trisomy Dosage of chromosome-specific cfDNA Ql (cfDNA) Negative Normal [facility] Comment on above: Order Comment: Speci men Type: FLUID SPECIMEN Ordering Facility: [facility] Address: [address] [place] [address] Performed By: #### L [id number] #### [facility] CLIA [id number] [address] [place] [address] OF [facility] Chr X and Y aneuploidy risk Sequencing Ql (cfDNA) [Interp] Not detected Normal [facility] Comment on above: Order Comment: Speci men Type: FLUID SPECIMEN Ordering Facility: [facility] Address: [address] [place] [address] Result Comment: Not Detected Not Detected Performed By: #### L [id number] #### [facility] CLIA [id number] [address] [place] [address] OF [place] Citation Pranav (Reference lab test) Comment Normal [facility] Comment on above: Order Comment: Speci men Type: FLUID SPECIMEN Ordering Facility: [facility] Address: [address] [place] [address] Result Comment: 1. P manoj ESCALONA, et al. [place] Med. 2012;14(3):296-305. 2. Benedicto BURNETT, et al. Prenat Diag. 2013;33(6):591-597. 3. Stephen C, et al. Clin Chem. 2015 Apr;61(4):608-616. 4. Keenan SECALONA, et al. [place] Med. 2011;13(11):913-920. 5. ACOG/SMFM Practice Bulletin No. 226, Jan 2020. Performed By: #### L [id number] #### [facility] CLIA [id number] [address] [place] [address] [place] Gestational age Estimated from conception date Mariano Normal [facility] Comment on above: Order Comment: Speci men Type: FLUID SPECIMEN Ordering Facility: [facility] Address: [address] [place] [address] Performed By: #### L [id number] #### [facility] CLIA [id number] [address] [place] [address] [place] OF [place] GESTATIONALAGE AGE > OR = 9W Yes Normal [facility] Comment on above: Order Comment: Speci men Type: FLUID SPECIMEN Ordering Facility: [facility] Address: [address] [place] [address] Performed By: #### L [id number] #### [facility] CLIA [id number] [address] [place] [address] OF [facility] Laboratory comment Pranav (Report) Comment Normal [facility] Comment on above: Order Comment: Speci men Type: FLUID SPECIMEN Ordering Facility: [facility] Address: [address] [place] [address] Result Comment: The MaterniT(R) 21 PLUS laboratory-developed test (LDT) analyzes circulating cell-free DNA from a maternal blood sample. This test is used for screening purposes and not diagnostic. Clinical correlation is recommended. Validation data on twin pregnancies is limited and the ability of this test to detect aneuploidy in higher multiple gestations has not yet been validated. Performed By: #### L [id number] #### [facility] CLIA [id number] [address] [place] [address] OF [facility] director physical therapy name Nom (Provider) Comment Normal [facility] Comment on above: Order Comment: Speci men Type: FLUID SPECIMEN Ordering Facility: [facility] Address: [address] [place] [address] Result Comment: This specimen showed an expected representation of chromosome 21, 18 and 13 material. Clinical correlation is suggested. Comment Sav Atwood MD, PhD, Director, [employer] Performed By: #### L [id number] #### [facility] CLIA [id number] [address] [place] [address] [place] [address] [place] LIMITATIONS OF THE TEST Comment Normal C [facility] Comment on above: Order Comment: Speci men Type: FLUID SPECIMEN Ordering Facility: [facility] Address: [address] [place] [address] Result Comment: Lesly arreguin the results of [...] Xaparin(R), Clexane(R) and Fragmin(R)). Performed By: #### L [id number] #### [facility] CLIA [id number] [address] [place] [address] STATES [facility] Monosomy X risk Dosage of chromosome-specific cfDNA Ql (Plasma cell-free+WBC DNA) [Interp] Not detected Normal [facility] Comment on above: Order Comment: Anat ahmadi Type: FLUID SPECIMEN Ordering Facility: [facility] Address: [address] [place] [address] Performed By: #### L [id number] #### [facility] CLIA [id number] [address] [place] [address] NEGATIVE PREDICTIVE VALUE Note Normal [facility] Comment on above: Order Comment: Anat ahmadi Type: FLUID SPECIMEN Ordering Facility: [facility] Address: [address] [place] [address] Result Comment: The Negative Predictive Value (NPV) for trisomy 21, 18, and 13 is greater than 99%. The NPV for SCA and ESS cannot be calculated as SCA and ESS are only reported when an abnormality is detected. Performed By: #### L [id number] #### [facility] CLIA [id number] [address] [place] [address] PERFORMANCE CHARACTERISTICS Note Normal [facility] Comment on above: Order Comment: Anat ahmadi Type: FLUID SPECIMEN Ordering Facility: [facility] Address: [address] [place] [address] Result Comment: ! Sex ! Accuracy: 99.4% [...] ! ! ! * As reported in [facility] database nstd37 [https://www.ncbi.nlm.nih.gov/dbvar/studies/nstd37/ ] # Estimated Sensitivity. Sensitivity estimated across the observed size distribution of each syndrome [per ISCA database nstd37] and across the range of fractions observed in routine clinical NIPT. Actual sensitivity can also be influenced by other factors such as the size of the event, total sequence counts, amplification bias, or sequence bias. ## Mariano gestation only. Performed By: #### L [id number] #### [facility] CLIA [id number] [address] [place] [address] POSITIVE PREDICTIVE VALUE N/A Normal [facility] Comment on above: Order Comment: Speci men Type: FLUID SPECIMEN Ordering Facility: [facility] Address: [address] [place] [address] Performed By: #### L [id number] #### [facility] CLIA [id number] [address] [place] [address] OF [facility] Reference Lab Test Method Comment Normal [facility] Comment on above: Order Comment: Speci men Type: FLUID SPECIMEN Ordering Facility: [facility] Address: [address] [place] [address] Result Comment: See Notes Circulating cell-free DNA [...] chromosomes 16 and 22. Performed By: #### L [id number] #### [facility] CLIA [id number] [address] [place], [place] [id number] [place] Service comment (Unsp spec) [Interp] Comment Normal [facility] Comment on above: Order Comment: Speci men Type: FLUID SPECIMEN Ordering Facility: [facility] Address: [address] [place] [address] Result Comment: See Notes [employer] is a subsidiary of [employer], using the brand [facility] [employer]. This test was developed and its performance characteristics determined by [employer]. It has not been cleared or approved by the Food and Drug Administration. This laboratory is certified under the Clinical Laboratory Improvement Amendments (CLIA) as qualified to perform high complexity clinical laboratory testing and accredited by the [employer] ([employer]). If there is future clinical need for adding MaterniT GENOME testing, this specimen will be available until term. [facility] samples will not be retained beyond 60 days. [facility] patients will have to send a new sample for re-sequencing ([facility] Test Code: [id number]). Performed By: #### L [id number] #### [facility] CLIA [id number] [address] [place] [address] [place] Sex Dosage of chromosome-specific cfDNA Nom (cfDNA) Comment Normal [facility] Comment on above: Order Comment: Speci men Type: FLUID SPECIMEN Ordering Facility: [facility] Address: [address] [place] [address] Result Comment: Cons istent with Female Performed By: #### L [id number] #### [facility] CLIA [id number] [address] [place] [address] [place] Test performance information Pranav (Unsp spec) Comment Normal [facility] Comment on above: Order Comment: Speci men Type: FLUID SPECIMEN Ordering Facility: [facility] Address: [address] [place] [address] Result Comment: The performance characteristics of the MaterniT(R) 21 PLUS laboratory-developed test (LDT) have been determined in a clinical validation study with women at increased risk for chromosomal aneuploidy.[1-4] Performed By: #### L [id number] #### [facility] CLIA [id number] [address] [place] [address] [place] Trisomy 13 risk Dosage of chromosome-specific cfDNA Ql (cfDNA) [Interp] Negative Normal [facility] Comment on above: Order Comment: Speci men Type: FLUID SPECIMEN Ordering Facility: [facility] Address: [address] [place] [address] Performed By: #### L [id number] #### [facility] CLIA [id number] [address] [place] [address] [place] Trisomy 18 risk Dosage of chromosome-specific cfDNA Ql (Plasma cell-free+WBC DNA) [Interp] Negative Normal [facility] Comment on above: Order Comment: Speci men Type: FLUID SPECIMEN Ordering Facility: [facility] Address: [address] [place] [address] Performed By: #### L [id number] #### [facility] CLIA [id number] [address] [place] [address] [place] Bacteria Ur Culton 5 Bacteria identified Cx Nom (U) ORGANISM ID: 1 >=100,000 CFU/ml Escherichia coli ORGANISM ID: 1 (ESCHERICHIA COLI) ANTIBIOTIC INTERPRETATION CELESTINO STATUS REFERENCE RANGE Ampicillin I 16 F Susceptible <=8 , [...] , Intermediate >32 , Resistant >64 Abnormal [facility] Comment on above: Performed By: #### 2 276-4, 14293-6 #### [facility] CLIA [id number] [address] [place] [address] [place] C. trachomatis+N. gonorrhoea e DNA KEVIN+probe Ql (Unsp spec)on 06-07-2024 C. trachomatis rRNA KEVIN+probe Ql (Unsp spec) Not detected Normal Not detected [facility] Comment on above: Order Comment: Speci men Type: SWABOrdering Facility: [facility] Address: [address] [place] [address] Performed By: #### 6 30-4 #### [facility] CLIA [id number] [address] [place] [address] STATES OF [place] N. gonorrhoeae rRNA KEVIN+probe Ql (Unsp spec) Not detected Normal Not detected [facility] Comment on above: Order Comment: Speci men Type: SWABOrdering Facility: [facility] Address: [address] [place] [address] Performed By: #### 6 30-4 #### [facility] CLIA [id number] [address] [place] [address] [place] CBC W Auto Differential pane l (Bld)on 06-07-2024 Basophils (Bld) [#/Vol] 10*3/uL Normal <0.11 C [facility] Comment on above: Order Comment: Speci men Type: BLOOD SPECIMENOrdering Facility: [facility] Address: [address] [place] [address] Performed By: #### 6 30-4 #### [facility] CLIA [id number] [address] [place] [address] [place] Basophils/100 WBC (Bld) 0.2 % Normal [facility] Comment on above: Order Comment: Speci men Type: BLOOD SPECIMENOrdering Facility: [facility] Address: [address] [place] [address] Performed By: #### 6 30-4 #### [facility] CLIA [id number] [address] [place] [address] [place] Differential cell count method Nom (Bld) Auto Normal [facility] Comment on above: Order Comment: Speci men Type: BLOOD SPECIMENOrdering Facility: [facility] Address: [address] [place] [address] Performed By: #### 6 30-4 #### [facility] CLIA [id number] [address] [place] [address] [place] Eosinophils (Bld) [#/Vol] 0.08 10*3/uL Normal <0.46 [facility] Comment on above: Order Comment: Speci men Type: BLOOD SPECIMENOrdering Facility: [facility] Address: [address] [place] [address] Performed By: #### 6 30-4 #### [facility] CLIA [id number] [address] [place] [address] [place] Eosinophils/100 WBC (Bld) 0.8 % Normal [facility] Comment on above: Order Comment: Speci men Type: BLOOD SPECIMENOrdering Facility: [facility] Address: [address] [place] [address] Performed By: #### 6 30-4 #### [facility] CLIA [id number] [address] [place] [address] [place] Erythrocyte distribution width (RBC) [Ratio] 12.6 % Normal 11.5-15.0 [facility] Comment on above: Order Comment: Speci men Type: BLOOD SPECIMENOrdering Facility: [facility] Address: [address] [place] [address] Performed By: #### 6 30-4 #### [facility] CLIA [id number] [address] [place] [address] [place] Hematocrit (Bld) [Volume fraction] 36.1 % Normal 36.0-46.0 [facility] Comment on above: Order Comment: Speci men Type: BLOOD SPECIMENOrdering Facility: [facility] Address: [address] [place] [address] Performed By: #### 6 30-4 #### [facility] CLIA [id number] [address] [place] [address] [place] Hemoglobin (Bld) [Mass/Vol] 12.0 g/dL Normal 11.5-15.5 [facility] Comment on above: Order Comment: Speci men Type: BLOOD SPECIMENOrdering Facility: [facility] Address: [address] [place] [address] Performed By: #### 6 30-4 #### [facility] CLIA [id number] [address] [place] [address] [place] Immature granulocytes (Bld) [#/Vol] 0.04 10*3/uL Normal <0.10 [facility] Comment on above: Order Comment: Speci men Type: BLOOD SPECIMENOrdering Facility: [facility] Address: [address] [place] [address] Performed By: #### 6 30-4 #### [facility] CLIA [id number] [address] [place] [address] [place] Immature granulocytes/100 WBC (Bld) 0.4 % Normal [facility] Comment on above: Order Comment: Speci men Type: BLOOD SPECIMENOrdering Facility: [facility] Address: [address] [place] [address] Performed By: #### 6 30-4 #### [facility] CLIA [id number] [address] [place] [address] [place] Lymphocytes (Bld) [#/Vol] 2.76 10*3/uL Normal 1.00-4.00 [facility] Comment on above: Order Comment: Speci men Type: BLOOD SPECIMENOrdering Facility: [facility] Address: [address] [place] [address] Performed By: #### 6 30-4 #### [facility] CLIA [id number] [address] [place] [address] [place] Lymphocytes/100 WBC (Bld) 26.6 % Normal [facility] Comment on above: Order Comment: Speci men Type: BLOOD SPECIMENOrdering Facility: [facility] Address: [address] [place] [address] Performed By: #### 6 30-4 #### [facility] CLIA [id number] [address] [place] [address] [place] MCH (RBC) [Entitic mass] 29.3 pg Normal 26.0-34.0 [facility] Comment on above: Order Comment: Speci men Type: BLOOD SPECIMENOrdering Facility: [facility] Address: [address] [place] [address] Performed By: #### 6 30-4 #### [facility] CLIA [id number] [address] [id number] [address] [place] MCHC (RBC) [Mass/Vol] 33.2 g/dL Normal 30.5-36.0 [facility] Comment on above: Order Comment: Speci men Type: BLOOD SPECIMENOrdering Facility: [facility] Address: [address] [place] [address] Performed By: #### 6 30-4 #### [facility] CLIA [id number] [address] [place] [address] [place] MCV (RBC) [Entitic vol] 88.0 fL Normal 80.0-100.0 [facility] Comment on above: Order Comment: Speci men Type: BLOOD SPECIMENOrdering Facility: [facility] Address: [address] [place] [address] Performed By: #### 6 30-4 #### [facility] CLIA [id number] [address] [place] [address] [place] Monocytes (Bld) [#/Vol] 0.55 10*3/uL Normal <0.87 [facility] Comment on above: Order Comment: Speci men Type: BLOOD SPECIMENOrdering Facility: [facility] Address: [address] [place] [address] Performed By: #### 6 30-4 #### [facility] CLIA [id number] [address] [place] [address] [place] Monocytes/100 WBC (Bld) 5.3 % Normal [facility] Comment on above: Order Comment: Speci men Type: BLOOD SPECIMENOrdering Facility: [facility] Address: [address] [place] [address] Performed By: #### 6 30-4 #### [facility] CLIA [id number] [address] [place] [address] [place] Neutrophils (Bld) [#/Vol] 6.91 10*3/uL Normal 1.45-7.50 [facility] Comment on above: Order Comment: Speci men Type: BLOOD SPECIMENOrdering Facility: [facility] Address: [address] [place] [address] Performed By: #### 6 30-4 #### [facility] CLIA [id number] [address] [place] [address] [place] Neutrophils/100 WBC (Bld) 66.7 % Normal [facility] Comment on above: Order Comment: Speci men Type: BLOOD SPECIMENOrdering Facility: [facility] Address: [address] [place] [address] Performed By: #### 6 30-4 #### [facility] CLIA [id number] [address] [place] [address] [place] Nucleated RBC (Bld) [#/Vol] 10*3/uL Normal <0.01 [facility] Comment on above: Order Comment: Speci men Type: BLOOD SPECIMENOrdering Facility: [facility] Address: [address] [place] [address] Performed By: #### 6 30-4 #### [facility] CLIA [id number] [address] [place] [address] [place] Nucleated RBC/100 WBC (Bld) [Ratio] 0.0 /100 WBC Normal [facility] Comment on above: Order Comment: Speci men Type: BLOOD SPECIMENOrdering Facility: [facility] Address: [address] [place] [address] Performed By: #### 6 30-4 #### [facility] CLIA [id number] [address] [place] [address] [place] Platelet mean volume (Bld) [Entitic vol] 11.3 fL Normal 9.0-12.7 [facility] Comment on above: Order Comment: Speci men Type: BLOOD SPECIMENOrdering Facility: [facility] Address: [address] [place] [address] Performed By: #### 6 30-4 #### [facility] CLIA [id number] [address] [place] [address] [place] Platelets (Bld) [#/Vol] 246 10*3/uL Normal 150-400 [facility] Comment on above: Order Comment: Speci men Type: BLOOD SPECIMENOrdering Facility: [facility] Address: [address] [place] [address] Performed By: #### 6 30-4 #### [facility] CLIA [id number] [address] [place] [address] [place] RBC (Bld) [#/Vol] 4.10 10*6/uL Normal 3.90-5.20 [facility] Comment on above: Order Comment: Speci men Type: BLOOD SPECIMENOrdering Facility: [facility] Address: [address] [place] [address] Performed By: #### 6 30-4 #### [facility] CLIA [id number] [address] [place] [address] [place] WBC (Bld) [#/Vol] 10.36 10*3/uL Normal 3.70-11.00 [facility] Comment on above: Order Comment: Speci men Type: BLOOD SPECIMENOrdering Facility: [facility] Address: [address] [place] [address] Performed By: #### 6 30-4 #### [facility] CLIA [id number] [address] [place] [address] [place] Comprehensive metabolic 2000 panelon 06-07-2024 Albumin [Mass/Vol] 4.1 g/dL Normal 3.9-4.9 [facility] Comment on above: Order Comment: Speci men Type: BLOOD SPECIMEN Ordering Facility: [facility] Address: [address] [place] [address] Performed By: #### 2 276-4, 87460-0 #### [facility] CLIA [id number] [address] [place] [address] [place] ALP [Catalytic activity/Vol] 70 U/L Normal 34-123 [facility] Comment on above: Order Comment: Speci men Type: BLOOD SPECIMEN Ordering Facility: [facility] Address: [address] [place] [address] Performed By: #### 2 276-4, 35447-4 #### [facility] CLIA [id number] [address] [place] [address] [place] ALT With P-5'-P [Catalytic activity/Vol] 56 U/L High 7-38 [facility] Comment on above: Order Comment: Speci men Type: BLOOD SPECIMEN Ordering Facility: [facility] Address: [address] [place] [address] Performed By: #### 2 276-4, 25148-8 #### [facility] CLIA [id number] [address] [place] [address] [place] Anion gap [Moles/Vol] 10 mmol/L Normal 8-15 [facility] Comment on above: Order Comment: Speci men Type: BLOOD SPECIMEN Ordering Facility: [facility] Address: [address] [place] [address] Performed By: #### 2 276-4, 83777-7 #### [facility] CLIA [id number] [address] [place] [address] [place] AST With P-5'-P [Catalytic activity/Vol] 30 U/L Normal 13-35 [facility] Comment on above: Order Comment: Speci men Type: BLOOD SPECIMEN Ordering Facility: [facility] Address: [address] [place] [address] Performed By: #### 2 276-4, 98417-3 #### [facility] CLIA [id number] [address] [place] [address] [place] Bilirubin [Mass/Vol] 0.4 mg/dL Normal 0.2-1.3 [facility] Comment on above: Order Comment: Speci men Type: BLOOD SPECIMEN Ordering Facility: [facility] Address: [address] [place], [place] [address] Performed By: #### 2 276-4, 70434-0 #### [facility] CLIA [id number] [address] [place] [address] [place] Calcium [Mass/Vol] 9.2 mg/dL Normal 8.5-10.2 [facility] Comment on above: Order Comment: Speci men Type: BLOOD SPECIMEN Ordering Facility: [facility] Address: [address] [place] [address] Performed By: #### 2 276-4, 56038-3 #### [facility] CLIA [id number] [address] [place] [address] [place] Chloride [Moles/Vol] 101 mmol/L Normal 98-107 [facility] Comment on above: Order Comment: Speci men Type: BLOOD SPECIMEN Ordering Facility: [facility] Address: [address] [place] [address] Performed By: #### 2 276-4, 41096-3 #### [facility] CLIA [id number] [address] [place] [address] [place] CO2 [Moles/Vol] 23 mmol/L Normal 22-30 [facility] Comment on above: Order Comment: Speci men Type: BLOOD SPECIMEN Ordering Facility: [facility] Address: [address] [place], [place] [address] Performed By: #### 2 276-4, 45978-3 #### [facility] CLIA [id number] [address] [place], [place] [address] [place] Creatinine [Mass/Vol] 0.79 mg/dL Normal 0.58-0.96 [facility] Comment on above: Order Comment: Speci men Type: BLOOD SPECIMEN Ordering Facility: [facility] Address: [address] [place], [place] [address] Performed By: #### 2 276-4, 17191-4 #### [facility] CLIA [id number] [address] [place] [address] [place] Creatinine and Glomerular filtration rate.predicted panel (S/P/Bld) 101 mL/min/1.73m??? Normal >=60 [facility] Comment on above: Order Comment: Anat ahmadi Type: BLOOD SPECIMEN Ordering Facility: [facility] Address: [address] [place] [address] Result Comment: Jelly mated Glomerular Filtration Rate [...] reflect actual GFR. Performed By: #### 2 276-4, 75392-7 #### [facility] IA [id number] [address] [place] [address] [place] Glucose [Mass/Vol] 114 mg/dL High 74-99 [facility] Comment on above: Order Comment: Anat ahmadi Type: BLOOD SPECIMEN Ordering Facility: [facility] Address: [address] [place] [address] Result Comment: The [place] Diabetes Association (ADA) provides guidance for cutoff [...] Standards of Medical Care in Diabetes 2016, [place] [employer] Association. Diabetes Care. 2016.39(Suppl 1). Performed By: #### 2 276-4, 38357-2 #### [facility] IA [id number] [address] [place] [address] [place] Potassium [Moles/Vol] 3.9 mmol/L Normal 3.7-5.1 [facility] Comment on above: Order Comment: Speci men Type: BLOOD SPECIMEN Ordering Facility: [facility] Address: [address] [place] [address] Performed By: #### 2 276-4, 13623-6 #### [facility] CLIA [id number] [address] [place] [address] [place] Protein [Mass/Vol] 7.2 g/dL Normal 6.3-8.0 [facility] Comment on above: Order Comment: Speci men Type: BLOOD SPECIMEN Ordering Facility: [facility] Address: [address] [place] [address] Performed By: #### 2 276-4, 30214-5 #### [facility] CLIA [id number] [address] [place] [address] [place] Sodium [Moles/Vol] 134 mmol/L Low 136-144 [facility] Comment on above: Order Comment: Speci men Type: BLOOD SPECIMEN Ordering Facility: [facility] Address: [address] [place] [address] Performed By: #### 2 276-4, 30038-5 #### [facility] CLIA [id number] [address] [place] [address] [place] Urea nitrogen [Mass/Vol] 14 mg/dL Normal 7-21 [facility] Comment on above: Order Comment: Speci men Type: BLOOD SPECIMEN Ordering Facility: [facility] Address: [address] [place] [address] Performed By: #### 2 276-4, 41134-5 #### [facility] CLIA [id number] [address] [place] [address] [place] HBV surface Ag Ser Qlon 03-0 HBV surface Ag Ql (S) Negative Normal Negative [facility] Comment on above: Order Comment: Speci men Type: BLOOD SPECIMENOrdering Facility: [facility] Address: [address] [place] [address] Performed By: #### 6 30-4 #### [facility] CLIA [id number] [address] [place] [address] [place] HCV Ab Ser Qlon 06-07-2024 HCV Ab Ql (S) Negative Normal Negative [facility] Comment on above: Order Comment: Speci men Type: BLOOD SPECIMENOrdering Facility: [facility] Address: [address] [place] [address] Result Comment: The result suggests no evidence of active infection with Hepatitis C virus. Should recent infection be suspected, repeat testing may be considered 4-6 weeks after this draw. Performed By: #### 6 30-4 #### [facility] CLIA [id number] [address] [place] [address] [place] HIGH RISK HUMAN PAPILLOMA RICKY (HPV), PCR FOR DETECTION AND GENOTYPINGon 06-07-2024 HPV 16 Ag Ql (Unsp spec) Not detected Normal Not detec terry [facility] Comment on above: Order Comment: Speci men Type: FLUID SPECIMEN Ordering Facility: [facility] Address: [address] [place] [address] Performed By: #### L [id number] #### [facility] CLIA [id number] [address] [place] [address] [place] HPV 18 Ag Ql (Unsp spec) Not detected Normal Not detec terry [facility] Comment on above: Order Comment: Speci men Type: FLUID SPECIMEN Ordering Facility: [facility] Address: [address] [place] [address] Performed By: #### L [id number] #### [facility] CLIA [id number] [address] [place] [address] [place] HPV 31+33+35+39+45+51+52+56+ 58+59+66+68 DNA KEVIN+probe Ql (Cvx) Not detected Normal Not detected [facility] Comment on above: Order Comment: Speci men Type: FLUID SPECIMEN Ordering Facility: [facility] Address: [address] [place] [address] Result Comment: High Risk HPV Other Type includes HPV types 31, 33, 35, 39, 45, 51, 52, 56, 58, 59, 66 and 68. Performed By: #### L [id number] #### [facility] CLIA [id number] [address] [place] [address] [place] HIV 1+2 Ab IA Qlon 5 HIV 1 and 2 Ab IA.rapid Nom (S/P/Bld) Normal [facility] Comment on above: Order Comment: Speci men Type: BLOOD SPECIMENOrdering Facility: [facility] Address: [address] [place] [address] Result Comment: Test not indicated. Performed By: #### 6 30-4 #### [facility] CLIA [id number] [address] [place] [address] [place] HIV 1+2 Ab+HIV1 p24 Ag IA Ql Non-Reactive Normal Nonreactive [facility] Comment on above: Order Comment: Speci men Type: BLOOD SPECIMENOrdering Facility: [facility] Address: [address] [place] [address] Performed By: #### 6 30-4 #### [facility] CLIA [id number] [address] [place] [address] [place] HIV immunoassay testing algorithm interpretation (S/P/Bld) [Interp] Normal [facility] Comment on above: Order Comment: Speci men Type: BLOOD SPECIMENOrdering Facility: [facility] Address: [address] [place] [address] Result Comment: No e vidence of HIV-1 [...] test results or diagnoses. Performed By: #### 6 30-4 #### [facility] CLIA [id number] [address] [place] [address] [place] HbA1c (Bld)on 06-07-2024 Average glucose Estimated from glycated hemoglobin (Bld) [Mass/Vol] 97 mg/dL Normal [facility] Comment on above: Order Comment: Speci men Type: FLUID SPECIMEN Ordering Facility: [facility] Address: [address] [place] [address] Result Comment: eAG: (Estimated average glucose) is a calculated value from HgbA1c and is practice representative of the average blood glucose level in the last 2-3 month period. Performed By: #### L [id number] #### [facility] CLIA [id number] [address] [place] [address] [place] HbA1c (Bld) [Mass fraction] 5.0 % Normal 4.3-5.6 [facility] Comment on above: Order Comment: Anat ahmadi Type: FLUID SPECIMEN Ordering Facility: [facility] Address: [address] [place] [address] Result Comment: [place] Diabetes Association guidelines indicate that patients with HgbA1c in the range 5.7-6.4% are at increased risk for development of diabetes, and intervention by lifestyle modification may be beneficial. HgbA1c greater or equal to 6.5% is considered diagnostic of diabetes. Performed By: #### L [id number] #### [facility] CLIA [id number] [address] [place] [address] [place] PAP TESTon 06-07-2024 ADEQUACY Normal [facility] Comment on above: Order Comment: Speci men Type: FLUID SPECIMEN Ordering Facility: [facility] Address: [address] [place] [address] Result Comment: Sati sfactory for interpretation. Transformation zone present Performed By: #### L [id number] #### [facility] CLIA [id number] [address] [place] [address] [place] CASE REPORT Normal [facility] Comment on above: Order Comment: Speci men Type: FLUID SPECIMEN Ordering Facility: [facility] Address: [address] [place] [address] Result Comment: Gyne cologic Cytology Report Case: [id number] Authorizing Provider: Leanne Aquino APRN.RAILROAD YARD WORKER Collected: 06/07/2024 03:39 PM Ordering Location: OB/Gynecology Received: 06/07/2024 04:52 PM First Screen: Aramouni, Martha, CT, ASCP Specimen: Pap Test, ThinPrep, Cervix Performed By: #### L [id number] #### [facility] CLIA [id number] [address] [place] [address] [place] CLINICAL HISTORY, CYTOLOGY, RESERVOIR CARETAKER Routine Exam Normal [facility] Comment on above: Order Comment: Speci men Type: FLUID SPECIMEN Ordering Facility: [facility] Address: [address] [place] [address] Performed By: #### L [id number] #### [facility] CLIA [id number] [address] [place] [address] [place] FINAL PERFORMING LAB Normal [facility] Comment on above: Order Comment: Speci men Type: FLUID SPECIMEN Ordering Facility: [facility] Address: [address] [place] [address] Result Comment: Tech nical component, mica laminating machine feeder screening performed at [facility], [address] [place] [address] CLIA# [id number] Diagnostic interpretation performed at [facility], [address] [place] [address] CLIA# [id number] Aluminum Shingle Roofer: Alvarez Vargas M.D. Performed By: #### L [id number] #### [facility] CLIA [id number] [address] [place] [address] [place] [address] [place] INTERPRETATION, CYTOLOGY, RESERVOIR CARETAKER Normal [facility] Comment on above: Order Comment: Speci men Type: FLUID SPECIMEN Ordering Facility: [facility] Address: [address] [place] [address] Result Comment: Nega tive for intraepithelial lesion or malignancy. at 1429 EDT Performed By: #### L [id number] #### [facility] CLIA [id number] [address] [place], [place] [address] [place] LMP 04/09/2024 Normal [facility] Comment on above: Order Comment: Speci men Type: FLUID SPECIMEN Ordering Facility: [facility] Address: [address] [place] [address] Performed By: #### L [id number] #### [facility] CLIA [id number] [address] [place] [address] [place] PAP DISCLAIMER COMMENT The Pap Smear is a screening test for cervical cancer. False negative results occur with all screening tests, emphasizing the need for rescreening at recommended intervals, and clinical correlation. Normal [facility] Comment on above: Order Comment: Speci men Type: FLUID SPECIMEN Ordering Facility: [facility] Address: [address] [place] [address] Performed By: #### L [id number] #### [facility] CLIA [id number] [address] [place] [address] [place] PAP FAN RUNNER COMMENT This specimen has been analyzed by the ThinPrep Imaging System, an automated imaging and review system, which assists the laboratory in evaluating cells on ThinPrep Pap tests. Following automated imaging, selected doherty from every slide are reviewed by a mica laminating machine feeder. Normal [facility] Comment on above: Order Comment: Speci men Type: FLUID SPECIMEN Ordering Facility: [facility] Address: [address] [place] [address] Performed By: #### L [id number] #### [facility] CLIA [id number] [address] [place], [place] [address] [address] STATES OF [facility] POC DECATOR OPERATOR ULTRASOUNDon 06-08-19 Indication Confirmation of intrauterine . [...] Read By: Leanne Aquino CNP MATERNAL MEDICINE [facility] Radiology Study observation (narrative) [facility] Prot/Creat Uron 06-07-2024 Protein/Creatinine (U) [Mass ratio] 0.06 mg/mg Normal <0.15 [facility] Comment on above: Order Comment: Speci men Type: FLUID SPECIMEN [facility] [facility] Address: [address] [place] [address] Result Comment: Adul t Proteinuria Categories: <0.15 mg/mg is considered normal to mildly increased 0.15 - 0.50 mg/mg is considered moderately increased >0.50 mg/mg is considered severely increased KDIGO. (2013). KDIGO 2012 Clinical Practice Guideline for the Evaluation and Management of Chronic Kidney Disease. Official Journal of the International Society of Nephrology, 3(1), 1-150. Performed By: #### L [id number] #### [facility] CLIA [id number] [address] [place] [address] [place] Protein/Creatinine (U) [Mass ratio]on 06-07-2024 Creatinine (U) [Mass/Vol] 155.0 mg/dL Normal 42.2-237.9 [facility] Comment on above: Order Comment: Speci men Type: FLUID SPECIMEN Ordering Facility: [facility] Address: [address] [place] [address] Performed By: #### L [id number] #### [facility] CLIA [id number] [address] [place] [address] [place] Protein (U) [Mass/Vol] 10 mg/dL Normal 0-20 [facility] Comment on above: Order Comment: Speci men Type: FLUID SPECIMEN Ordering Facility: [facility] Address: [address] [place] [address] Performed By: #### L [id number] #### [facility] CLIA [id number] [address] [place] [address] [place] RUBELLA IGG ANTIBODYon 06-07 RUBELLA IGG AB, QUAL Positive Normal Positive [facility] Comment on above: Order Comment: Speci men Type: FLUID SPECIMEN Ordering Facility: [facility] Address: [address] [place] [address] Result Comment: The result suggests recent or past exposure to Rubella virus or history of Rubella vaccination. Positive result may also be seen due to presence of passively-transferred antibodies. Please correlate with patient's history. Performed By: #### L [id number] #### [facility] CLIA [id number] [address] [place] [address] [place] Reagin and Treponema pallidu m IgG and IgM [Interp]on 06-07-2024 T. pallidum IgG+IgM IA Ql (S) Non-Reactive Normal Nonreactive [facility] Comment on above: Order Comment: Speci men Type: BLOOD SPECIMENOrdering Facility: [facility] Address: [address] [place] [address] Performed By: #### 6 30-4 #### [facility] CLIA [id number] [address] [place] [address] [place] Reagin+T pallidum IgG+IgM Se rPl-Impon 06-07-2024 Reagin and Treponema pallidum IgG and IgM [Interp] Cannot exclude recent Treponemal infection if specimen collected within 7-10 days after appearance of suspect lesions or 2-3 weeks after an exposure. Clinical correlation is required. Normal [facility] Comment on above: Order Comment: Speci men Type: BLOOD SPECIMENOrdering Facility: [facility] Address: [address] [place] [address] Performed By: #### 6 30-4 #### [facility] CLIA [id number] [address] [place] [address] [place] TRICHOMONAS VAGINALIS NAATon 06-07-2024 T. vaginalis DNA KEVIN+probe Ql (Unsp spec) Not detected Normal Not detected [facility] Comment on above: Order Comment: Speci men Type: SWABOrdering Facility: [facility] Address: [address] [place] [address] Performed By: #### 6 30-4 #### [facility] CLIA [id number] [address] [place] [address] [place] TYPE + SCREEN PRENATALon ABO A Normal [facility] Comment on above: Order Comment: Speci men Type: BLOOD SPECIMEN Ordering Facility: [facility] Address: [address] [place] [address] Performed By: #### T SPN #### [facility] CLIA [id number] [address] [place] [address] [place] Rh Nom (Bld) Positive Normal [facility] Comment on above: Order Comment: Speci men Type: BLOOD SPECIMEN Ordering Facility: [facility] Address: [address] [place] [address] Performed By: #### T SPN #### [facility] CLIA [id number] [address] [place] [address] TYPE AND SCREEN EXPIRATION 06/10/2024 23:59 Normal [facility] Comment on above: Order Comment: Speci men Type: BLOOD SPECIMEN Ordering Facility: [facility] Address: [address] [place] [address] Performed By: #### T SPN #### [facility] CLIA [id number] [address] [place] [address] CNOVon 05-24-2024 CNOV Office Visit (OBGYWM) HILLARY FRAIRE ([id number]) 1990 F Date Time Provider Department 05/24/24 8:00 AM CRISSY TOM [facility] During your visit today, we recorded the following information about you: Blood pressure Weight Last Period 124/68 129.2 kg 04/09/24 Crissy Tom APRN.CNM 05/24/2024 10:23 AM Signed Hillary Fraire is a 34 year old [...] Living1 SAB0 IAB0 Ectopic0 Multiple0 Live Births1 Manager Financial History LMP: 03/31/2023 (Exact Date), Having periods Age at Menarche: Age at First : Age at Menopause: Manager Financial History Comments: Sexual Activity: Yes; Male Contraception: Pill PAST MEDICAL HISTORY Diagnosis Date #[id number] Anemia during in third trimester 11/15/2020 fracture [...] tablet by mouth once daily. No current facility-administere d medications for this visit. Allergies As of [...] discussed with the Patient or Patient's Authorized Consumer Affairs Specialist. As applicable, any other physician, advance practice provider, medical student, or other health professional student that will be observing or involved in the sensitive examination for educational or training purposes was discussed with the Patient or Authorized Consumer Affairs Specialist. The Patient or Authorized Consumer Affairs Specialist has agreed to proceed with the sensitive [...] hours - RTO 2 weeks for NOB DRISS García Courtney, APRN.CNM 05/24/2024 8:10 AM Signed As you may already know, morning sickness can often be more appropriately called evening sickness or chsuu-oodupn-uu-the- day sickness. While there are the paulino few, [...] than expected (more content not included)... Normal [facility] UA DIP,URINE HCG (POC)on Beta HCG ( test) Ql (U) Positive Abnormal Negative [facility] Comment on above: Location:[facility], [address], [place], [address] Interpretation and review of laboratory results Abnormal [facility] Hat Lining Blocker (POCT) Internal QC [facility] Location:[facility], [address], [place], [address] [facility] CBC W Auto Differential pane l (Bld)on 02-11-2022 Basophils (Bld) [#/Vol] 0.04 10*3/uL <0.11 k/uL [facility] Basophils/100 WBC (Bld) 0.5 % C [facility] Differential cell count method Nom (Bld) Auto [facility] Eosinophils (Bld) [#/Vol] 0.13 10*3/uL <0.46 k/uL [facility] Eosinophils/100 WBC (Bld) 1.5 % [facility] Erythrocyte distribution width (RBC) [Ratio] 12.7 % 11.5 - 15.0 % [facility] Hematocrit (Bld) [Volume fraction] 41.0 % 36.0 - 46.0 % [facility] Hemoglobin (Bld) [Mass/Vol] 13.6 g/dL 11.5 - 15.5 g/dL [facility] Immature granulocytes (Bld) [#/Vol] <0.10 k/uL [facility] Immature granulocytes/100 WBC (Bld) 0.1 % [facility] Lymphocytes (Bld) [#/Vol] 2.58 10*3/uL 1.00 - 4.00 k/uL [facility] Lymphocytes/100 WBC (Bld) 30.6 % [facility] MCH (RBC) [Entitic mass] 29.5 pg 26.0 - 34.0 pg [facility] MCHC (RBC) [Mass/Vol] 33.2 g/dL 30.5 - 36.0 g/dL [facility] MCV (RBC) [Entitic vol] 88.9 fL 80.0 - 100.0 fL [facility] Monocytes (Bld) [#/Vol] 0.61 10*3/uL <0.87 k/uL [facility] Monocytes/100 WBC (Bld) 7.2 % C [facility] Neutrophils (Bld) [#/Vol] 5.06 10*3/uL 1.45 - 7.50 k/uL [facility] Neutrophils/100 WBC (Bld) 60.1 % [facility] Nucleated RBC (Bld) [#/Vol] <0.01 k/uL [facility] Nucleated RBC/100 WBC (Bld) [Ratio] 0.0 /100 WBC [facility] Platelet mean volume (Bld) [Entitic vol] 10.9 fL 9.0 - 12.7 fL [facility] Platelets (Bld) [#/Vol] 285 10*3/uL 150 - 400 k /uL [facility] RBC (Bld) [#/Vol] 4.61 10*6/uL 3.90 - 5.2 0 m/uL [facility] WBC (Bld) [#/Vol] 8.43 10*3/uL 3.70 - 11. 00 k/uL [facility] Vital Signs Date Time Vital Sign Value Performing Clinician Faci lity 12-06-2024 14:53-0400 Body temperature 97.6 [degF] Dr. Chiki Gonzales MD Work Phone: [facility] 12-06-2024 14:53-0400 Diastolic blood pressure 75 mm[Hg] Dr. Chiki Gonzales MD Work Phone: [facility] 12-06-2024 14:53-0400 Heart rate 91 /min Dr. Chiki Gonzales MD Work Phone: [facility] 12-06-2024 14:53-0400 Respiratory rate 16 /min Dr. Chiki Gonzales MD Work Phone: [facility] 12-06-2024 14:53-0400 SaO2% (BldA) [Mass fraction] 100 % Dr. Chiki Gonzales MD Work Phone: [facility] 12-06-2024 14:53-0400 Systolic blood pressure 128 mm[Hg] Dr. Chiki Gonzales MD Work Phone: [facility] 12-06-2024 07:40-0400 Body weight 127.[address] Chiki Gonzales MD Work Phone: [facility] 12-04-2024 11:37-0400 Body height 182.[address] Chiki Gonzales MD Work Phone: [facility] 12-04-2024 11:37-0400 Body mass index (BMI) [Ratio] 38 kg/m2 Dr. Chiki Gonzales MD Work Phone: [facility] 11-26-2024 10:53-0400 Body mass index (BMI) [Ratio] 37.97 kg/m2 Sheyla Josh TRIMMING MACHINE OPERATOR.CNM Work Phone: [facility] 11-26-2024 10:53-0400 Body weight 127.01 kg Sheyla Josh TRIMMING MACHINE OPERATOR.CNM Work Phone: [facility] 11-26-2024 10:53-0400 Diastolic blood pressure 78 mm[Hg] Sheyla Josh TRIMMING MACHINE OPERATOR.CNM Work Phone: [facility] 11-26-2024 10:53-0400 Systolic blood pressure 126 mm[Hg] Sheyla Josh TRIMMING MACHINE OPERATOR.CNM Work Phone: [facility] 10-25-2024 14:23-0400 Body mass index (BMI) [Ratio] 37.05 kg/m2 Kelly Baltazar MD Work Phone: [facility] 10-25-2024 14:23-0400 Body weight 123.92 kg Kelly Baltazar MD Work Phone: [facility] 10-25-2024 14:23-0400 Diastolic blood pressure 72 mm[Hg] Kelly Baltazar MD Work Phone: [facility] 10-25-2024 14:23-0400 Systolic blood pressure 120 mm[Hg] Kelly Baltazar MD Work Phone: [facility] 09-27-2024 15:15-0400 Body mass index (BMI) [Ratio] 37.16 kg/m2 Adina Krueger MD Work Phone: [facility] 09-27-2024 15:15-0400 Body weight 124.29 kg Adina Krueger MD Work Phone: [facility] 09-27-2024 15:15-0400 Diastolic blood pressure 70 mm[Hg] Adina Krueger MD Work Phone: [facility] 09-27-2024 15:15-0400 Systolic blood pressure 134 mm[Hg] Adina Krueger MD Work Phone: [facility] 09-03-2024 15:08-0400 Body mass index (BMI) [Ratio] 36.75 kg/m2 Elli Sorenson MD Work Phone: [facility] 09-03-2024 15:08-0400 Body weight 122.92 kg Elli Sorenson MD Work Phone: [facility] 09-03-2024 15:08-0400 Diastolic blood pressure 68 mm[Hg] Elli Sorenson MD Work Phone: [facility] 09-03-2024 15:08-0400 Systolic blood pressure 142 mm[Hg] Elli Sorenson MD Work Phone: [facility] 08-02-2024 15:08-0400 Body mass index (BMI) [Ratio] 37.43 kg/m2 Polly Hamilton MD Work Phone: [facility] 08-02-2024 15:08-0400 Body weight 125.19 kg Polly Hamilton MD Work Phone: [facility] 08-02-2024 15:08-0400 Diastolic blood pressure 76 mm[Hg] Polly Hamilton MD Work Phone: [facility] 08-02-2024 15:08-0400 Systolic blood pressure 138 mm[Hg] Polly Hamilton MD Work Phone: [facility] 07-05-2024 15:21-0400 Body mass index (BMI) [Ratio] 37.78 kg/m2 Kelly Baltazar MD Work Phone: [facility] 07-05-2024 15:21-0400 Body weight 126.37 kg Kelly Baltazar MD Work Phone: [facility] 07-05-2024 15:21-0400 Diastolic blood pressure 80 mm[Hg] Kelly Baltazar MD Work Phone: [facility] 07-05-2024 15:21-0400 Systolic blood pressure 120 mm[Hg] Kelly Baltazar MD Work Phone: [facility] 06-07-2024 14:40-0500 Body height 182.9 cm Leanne Martin TRIMMING MACHINE OPERATOR.RAILROAD YARD WORKER Work Phone: [facility] 06-07-2024 14:40-0500 Body mass index (BMI) [Ratio] 38 kg/m2 Leanne Kenia TRIMMING MACHINE OPERATOR.RAILROAD YARD WORKER Work Phone: [facility] 06-07-2024 14:40-0500 Body weight 127.1 kg Leanne Kenia TRIMMING MACHINE OPERATOR.RAILROAD YARD WORKER Work Phone: [facility] 06-07-2024 14:40-0500 Diastolic blood pressure 70 mm[Hg] Leanne Kenia TRIMMING MACHINE OPERATOR.RAILROAD YARD WORKER Work Phone: [facility] 06-07-2024 14:40-0500 Systolic blood pressure 118 mm[Hg] Leanne Kenia TRIMMING MACHINE OPERATOR.RAILROAD YARD WORKER Work Phone: [facility] 05-24-2024 08:03-0500 Body mass index (BMI) [Ratio] 38.63 kg/m2 Crissy Plotts TRIMMING MACHINE OPERATOR.CNM Work Phone: [facility] 05-24-2024 08:03-0500 Body weight 129.18 kg Crissy Plotts TRIMMING MACHINE OPERATOR.CNM Work Phone: [facility] 05-24-2024 08:03-0500 Diastolic blood pressure 68 mm[Hg] Crissy Plotts TRIMMING MACHINE OPERATOR.CNM Work Phone: [facility] 05-24-2024 08:03-0500 Systolic blood pressure 124 mm[Hg] Crissy Plotts TRIMMING MACHINE OPERATOR.CNM Work Phone: [facility] 02-11-2022 08:15-0500 Body height 182.9 cm Sheyla Moreno TRIMMING MACHINE OPERATOR.CNM Work Phone: [facility] 02-11-2022 08:15-0500 Body weight 118.93 kg Sheyla Moreno TRIMMING MACHINE OPERATOR.CNM Work Phone: [facility] 02-11-2022 08:15-0500 Diastolic blood pressure 70 mm[Hg] Sheyla Moreno TRIMMING MACHINE OPERATOR.CNM Work Phone: [facility] 02-11-2022 08:15-0500 Systolic blood pressure 118 mm[Hg] Sheyla Moreno DRISS Work Phone: [facility] Encounters Encounter Date Encounter Type Care Provider Facility Start: 12-06-2024 Non-patient / Non-visit Dr. Latesha metz MD -[facility] Start: 12-05-2024 Non-patient / Non-visit Dr. Latesha metz MD -[facility] Start: 12-04-2024 ambulatory Latesha Elena Facility: [facility] Start: 12-04-2024 End: 12-06-2024 Evaluation and management of inpatient Sheyla Moreno [facility] Work Phone: Start: 12-04-2024 End: 12-04-2024 Telephone encounter Amisha Alberto MD Work Phone: Gynecology Start: 11-26-2024 End: 11-26-2024 ambulatory SHEYLA MORENO Facility:[facility] Start: 11-26-2024 End: 11-26-2024 Patient encounter procedure Whi Tech 1 [employer]oon [employer] [facility] Comment on [...] of (HCC) Start: 11-26-2024 End: 11-26-2024 ambulatory CHIKI GONZALES Facility:[facility] Start: 11-08-2024 End: 11-08-2024 ambulatory CHIKI GONZALES Facility:[facility] Start: 10-29-2024 End: 10-29-2024 Telephone encounter Kelly [...] 10-25-2024 Patient encounter procedure Whi [employer] 1 [employer]oon An[employer] [facility] Comment on above: Encounter for ultras ound to check growth (HCC) (Primary Dx); Chronic hypertension in (HCC); 28 weeks gestation of (HCC) Start: 10-25-2024 End: 10-25-2024 ambulatory CHIKI GONZALES Facility:[facility] Start: 09-27-2024 End: 09-27-2024 Patient encounter procedure Adina Krueger MD Work Phone: OB/Gynecology Comment on above: Supervision of high risk in second trimester (HCC) (Primary Dx); UTI (urinary tract infection) in , antepartum (HCC); Chronic hypertension in (HCC); 24 weeks gestation of (HCC) Start: 09-27-2024 End: 09-27-2024 ambulatory CHIKI GONZALES Facility:[facility] Start: 09-20-2024 End: 11-20-2024 Follow-up encounter Elli Sorenson MD Work Phone: OB/Gynecology Start: 09-17-2024 End: 09-17-2024 ambulatory CHIKI GONZALES Facility:[facility] Start: 09-16-2024 End: 09-21-2024 ambulatory Elli Sorenson MD Work Phone: OB/Gynecology Comment on above: Antibiotic/ urine te st Start: 09-06-2024 End: 09-07-2024 Follow-up encounter Adina Krueger MD Work Phone: OB/Gynecology Start: 09-03-2024 End: 09-03-2024 Patient encounter procedure Elli Sorenson MD Work Phone: OB/Gynecology Comment on above: Supervision of high risk in second trimester (HCC) (Primary Dx); Chronic hypertension in (HCC); Obesity in (HCC); History of pre-eclampsia; UTI (urinary tract infection) in , antepartum (HCC); 21 weeks gestation of ([facility]) Encounter for anatomic survey ([facility]) (Primary Dx); 8 weeks gestation of ([facility]); Obesity affecting in second trimester, unspecified obesity type ([facility]) Start: 09-03-2024 End: 09-03-2024 ambulatory CHIKI GONZALES Facility:[facility] Start: 08-04-2024 End: 08-04-2024 Follow-up encounter Radha Hammer APRN.RAILROAD YARD WORKER Work Phone: OB/Gynecology Comment on above: Results Start: 08-02-2024 End: 08-02-2024 Patient encounter procedure Polly Hamilton MD Work Phone: OB/Gynecology Comment on above: , supervisi on, high-risk, unspecified trimester (HCC) (Primary Dx); BMI 38.0-38.9,adult; 16 weeks gestation of ([facility]); UTI (urinary tract infection) in , antepartum ([facility]) Start: 08-02-2024 End: 08-02-2024 ambulatory POLLY HAMILTON Facility:[facility] Start: 07-13-2024 End: 07-13-2024 ambulatory Leanne Aquino APRN.RAILROAD YARD WORKER Work Phone: OB/Gynecology Start: 07-13-2024 End: 07-13-2024 Patient encounter procedure Leanne Aquino APRN.RAILROAD YARD WORKER Work Phone: OB/Gynecology Comment on above: August 02 [facility] Start: 07-08-2024 End: 07-08-2024 Telephone encounter Kelly Baltazar MD Work Phone: OB/Gynecology Comment on above: Orders Start: 07-05-2024 End: 07-05-2024 ambulatory CHIKI GONZALES Facility:[facility] Start: 07-05-2024 End: 07-05-2024 Patient encounter procedure Kelly Baltazar MD Work Phone: OB/Gynecology Comment on above: , supervisi on, high-risk, unspecified trimester (Primary Dx); 12 weeks gestation of ; UTI (urinary tract infection) in , antepartum; Elevated LFTs 8 weeks gestation of Start: 07-05-2024 End: 09-04-2024 Follow-up encounter Kelly Baltazar MD Work Phone: OB/Gynecology Start: 06-07-2024 End: 06-07-2024 ambulatory CHIKI GONZALES Facility:[facility] Start: 06-07-2024 End: 06-07-2024 Patient encounter procedure Leanne Aquino APRN.CNP Work Phone: OB/Gynecology Comment on above: BMI 38.0-38.9,adult (Primary Dx); with uncertain dates, antepartum; Screening for cervical cancer; Screen for STD (sexually transmitted disease); 8 weeks gestation of ; History of anemia; Generalized anxiety disorder; , supervision, high-risk, unspecified trimester Start: 06-07-2024 End: 06-09-2024 Follow-up encounter Leanne Aquino APRN.RAILROAD YARD WORKER Work Phone: OB/Gynecology Comment on above: UTI (urinary tract i nfection) in , antepartum (Primary Dx) Start: 05-24-2024 End: 05-24-2024 ambulatory CRISSY TOM Facility:[facility] Start: 05-24-2024 End: 05-24-2024 Patient encounter procedure Crissy Tom APRN.CNHarrison Work Phone: OB/Gynecology Comment on above: Missed menses (Prima ry Dx); 6 weeks gestation of ; Spotting in early ; Obesity affecting in first trimester, unspecified obesity type; Nausea Start: 05-12-2024 End: 05-12-2024 ambulatory Sheyla Moreno APRN.CNM Work Phone: OB/Gynecology Comment on above: Early Start: 03-03-2023 ambulatory Sheylaelizabeth Moreno APRN.CNM Work Phone: OB/Gynecology Comment on above: Blood Work Request Start: 01-20-2023 Refill Sheylaelizabeth Moreno APRN.CNM Work Phone: OB/Gynecology Comment on above: Refill Request Start: 03-01-2022 ambulatory Sheylaelizabeth Moreno APRN.CNM Work Phone: OB/Gynecology Comment on above: Medicine while breas tfeeding Start: 02-11-2022 ambulatory Sheyladeanne Moreno TRIMMING MACHINE OPERATOR.CNM Work Phone: OB/Gynecology Comment on above: Question regarding T SH BLD Start: 02-11-2022 End: 02-11-2022 Patient encounter procedure Sheylaelizabeth Moreno APRN.CNM Work Phone: OB/Gynecology Comment on above: Encounter for gyneco logical examination (general) (routine) without abnormal findings (Primary Dx); Malaise and fatigue; Encounter for surveillance of contraceptive pills Start: 02-11-2022 End: 02-11-2022 Patient encounter status Sheyla Josh BALES.CNM Work Phone: OB/Gynecology Start: 01-28-2022 Refill Sheylaelizabeth Moreno APRN.CNM Work Phone: OB/Gynecology Comment on above: Refill Request Start: 01-26-2022 Refill Sheylaelizabeth Moreno APRN.CNM Work Phone: OB/Gynecology Comment on above: Refill Request Start: 01-15-2022 Refill Sheylaelizabeth Moreno APRN.CNM Work Phone: OB/Gynecology Comment on above: Refill Request Start: 11-14-2020 ambulatory Kelly Geiger Work Phone: OB/Gynecology Comment on above: RE: Test Result Ques tion Start: 06-08-2020 End: 07-19-2020 Patient requested procedure Sheyla Moreno APRN.CNM Work Phone: [facility] Start: 05-29-2020 End: 05-29-2020 Telephone encounter Sheyla Moreno Work Phone: OB/Gynecology Comment on above: Care (+ pre gnancy test) Procedures Date Procedure Procedure Detail Performing Clinician Start: 12-06-2024 Introduction to urin fatimah tract Dr. Chiki Gonzales MD Work Phone: Start: 12-06-2024 Fluoroscopic guidance Fely Gonzales MD Work Phone: Start: 12-04-[address] Chiki Gonzales MD Work Phone: Start: 12-04-[address] Chiki Gonzales MD Work Phone: Start: 12-04-2024 CT of abdomen and pe lvis without contrast Dr. Chiki Gonzales MD Work Phone: Start: 12-04-2024 Urnls dip stick/tabl et reagent auto microscopy Dr. Chiki Gonzales MD Work Phone: Start: 11-26-2024 Us preg uterus after 1st trimest 1/1st gestation Elli Sorenson MD Work Phone: Start: 10-25-2024 Us preg uterus after 1st trimest 1/1st gestation Elli Sorenson MD Work Phone: Start: 09-03-2024 Urnls dip stick/tabl et rgnt auto w/o microscopy Elli Sorenson MD Work Phone: Start: 09-03-2024 Us preg uterus after 1st trimest 1/1st gestation Leanne Martin TRIMMING MACHINE OPERATOR.RAILROAD YARD WORKER Work Phone: Start: 07-05-2024 Us preg uterus after 1st trimest 1/1st gestation Leanne Martin TRIMMING MACHINE OPERATOR.RAILROAD YARD WORKER Work Phone: Start: 06-07-2024 Antibody screen CHIKI BANUELOS Comment on above: Order Comment: Speci men Type: BLOOD SPECIMEN Ordering Facility: [facility] Address: [address] [place] [address] Performed By: #### T SPN #### [facility] CLIA [id number] [address] [place] [address] [id number], [place] [address] [place] Start: 06-07-2024 Us uterus limited 1/> fetuses Leanne Barahonacalf TRIMMING MACHINE OPERATOR.RAILROAD YARD WORKER Work Phone: Start: 05-24-2024 UA DIP,URINE HCG (POC) Crissy Tom TRIMMING MACHINE OPERATOR.CNM Work Phone: Start: 12-13-2020 End: 10-27-2024 Vaccine refused by patient COVID-19 vaccine series declined Sheyla Josh TRIMMING MACHINE OPERATOR.CNM Work Phone: Plan of Treatment Date Care Activity Detail Author Start: 11-13-2030 Urine microalbumin profile [facility] Start: 06-07-2029 Screening for malign ant neoplasm of cervix Cervical Cancer Screening [facility] Start: 06-15-2025 HPV TESTING HPV TESTING [facility] Start: 06-15-2025 PAP TESTING PAP TESTING [facility] Start: 06-15-2025 Screening for malign ant neoplasm of cervix Cervical Cancer Screening [facility] Start: 12-27-2024 End: 12-27-2024 Patient encounter procedure [facility]aternal [facility] Comment on above: Growth Growth/OB Start: 12-20-2024 End: 12-20-2024 Patient encounter procedure 12/20/2024 10:50 AM EDT Office Visit OB/Gynecology [address] [place], [place] [id number] Kelly Baltazar MD [address] [place], [place] [address] OB OB/Gynecology Comment on above: OB Start: 12-13-2024 End: 12-13-2024 Patient encounter procedure 12/13/2024 10:10 AM EDT Routine Office Visit OB/Gynecology [address] [place], [place] [id number] Kelly Baltazar MD [address] [place], [place] [id number] OB OB/Gynecology Comment on above: OB Start: 12-06-2024 Influenza vaccination [facility] Start: 12-06-2024 RSV Vaccine (1 - Ris k 1-dose series) RSV Vaccine (1 - Risk 1-dose series) [facility] Start: 12-06-2024 Patient discharge [facility] Start: 12-05-2024 Nonstress test [facility] Start: 12-05-2024 [facility] Start: 12-05-2024 Application of intermittent pneumatic compression device [facility] Start: 12-05-2024 Catheterization of vein [facility] Start: 12-04-2024 Admission procedure [facility] Start: 12-04-2024 [facility] Start: 12-04-2024 Consultation [facility] Start: 12-04-2024 Nonstress test [facility] Start: 12-04-2024 End: 12-04-2024 [facility] Start: 12-04-2024 Nonstress test [facility] Start: 12-04-2024 Obstetric monitoring [facility] Start: 12-04-2024 Vital signs measurements [facility] Start: 12-04-2024 Collection of urine and strain for calculus [facility] Start: 11-26-2024 End: 11-26-2024 Patient encounter procedure [facility]aternal Medicine Comment on above: Growth/OB Start: 11-22-2024 End: 11-22-2024 Patient encounter procedure 11/22/2024 1:30 PM EDT Routine Office Visit OB/Gynecology [address] [place] [address] Kelly Baltazar MD [address] [place] [address] OB OB/Gynecology Comment on above: OB Start: 11-08-2024 End: 11-08-2024 Patient encounter procedure 11/08/2024 10:40 AM EDT Routine Office Visit OB/Gynecology [address] [place] [address] Kelly Baltazar MD [address] [place] [address] OB OB/Gynecology Comment on above: OB Start: 10-25-2024 End: 10-25-2024 Patient encounter procedure 10/25/2024 3:10 PM EDT Routine Office Visit OB/Gynecology [address] [place] [address] Kelly Baltazar MD [address] [place] [address] OB Routine OB/Gynecology Comment on above: OB Routine Start: 10-25-2024 End: 10-25-2024 ambulatory 10/25/2024 3:00 PM EDT Results Only [facility] [address] [place] [address] Glucose test and Labs [facility] Comment on above: Glucose test and Lab s Start: 10-25-2024 End: 10-25-2024 Patient encounter procedure 10/25/2024 1:30 PM EDT Routine Office Visit Maternal Medicine [address] [place] [address] Growth [facility]aternal Medicine Comment on above: Growth Start: 09-27-2024 End: 09-27-2024 Patient encounter procedure OB/Gynecology Comment on above: OB Routine OB Routine - needs T OC once finished with Augmentin Start: 09-27-2024 End: 12-27-2024 ANEMIA REFLEX PANEL ANEMIA REFLEX PANEL Lab Routine Expected: 09/27/2024, Expires: 12/27/2024 [facility] Comment on above: Expected: 09/27/2024 , Expires: 12/27/2024 Start: 09-27-2024 End: 09-27-2025 GESTATIONAL GLUCOSE SCREEN, 1-HOUR, 50 GRAM, NON-FASTING GESTATIONAL GLUCOSE SCREEN, 1-HOUR, 50 GRAM, NON-FASTING Lab Routine Expected: 09/27/2024, Expires: 09/27/2025 [facility] Work Phone: Comment on above: Expected: 09/27/2024 , Expires: 09/27/2025 Start: 09-27-2024 End: 09-27-2025 SYPHILIS TREPONEMAL W/REFLEX SYPHILIS TREPONEMAL W/REFLEX Lab Routine Expected: 09/27/2024, Expires: 09/27/2025 [facility] Comment on above: Expected: 09/27/2024 , Expires: 09/27/2025 Start: 09-14-2024 End: 12-14-2024 Bacteria identified in Urine by Culture BACTERIAL CULTURE, URINE Microbiology Routine UTI (urinary tract infection) in , antepartum (HCC) Expected: 09/14/2024 (Approximate), Expires: 12/14/2024 [facility] Comment on above: Expected: 09/14/2024 (Approximate), Expires: 12/14/2024 Start: 09-03-2024 End: 09-03-2024 Patient encounter procedure Maternal Medicine Comment on above: Anatomy Scan OB Routine Start: 08-02-2024 End: 08-02-2024 Patient encounter procedure 08/02/2024 3:10 PM EDT Routine Office Visit OB/Gynecology [address] [place] [address] Polly Hamilton MD [address] [place] [address] OB Routine OB/Gynecology Comment on above: OB Routine Start: 07-05-2024 End: 07-05-2024 Patient encounter procedure Maternal Medicine Comment on above: Nuchal OB Routine Start: 07-05-2024 End: 10-04-2024 Chromosome 21 trisomy [Presence] in Blood or Tissue by Cytogenetics [id number] [id number] Lab Routine 8 weeks gestation of Expected: 07/05/2024, Expires: 10/04/2024 [facility] Comment on above: Expected: 07/05/2024 , Expires: 10/04/2024 Start: 06-07-2024 End: 06-07-2024 Patient encounter procedure 06/07/2024 2:45 PM EST Initial Office Visit OB/Gynecology [address] [place] [address] Leanne Aquino APRN.RAILROAD YARD WORKER [address] [place] [address] New ob OB/Gynecology Comment on above: New ob Start: 06-07-2024 End: 09-06-2024 ANEMIA REFLEX PANEL [facility] Work Phone: Comment on above: Expected: 06/07/2024 , Expires: 09/06/2024 Start: 06-07-2024 End: 09-06-2024 Comprehensive metabolic 2000 panel - Serum or Plasma [facility] Comment on above: Expected: 06/07/2024 , Expires: 09/06/2024 Start: 06-07-2024 End: 09-06-2024 Hemoglobin A1c in Blood [facility] Comment on above: Expected: 06/07/2024 , Expires: 09/06/2024 Start: 06-07-2024 End: 09-06-2024 Hepatitis B virus surface Ag [Presence] in Serum [facility] Comment on above: Expected: 06/07/2024 , Expires: 09/06/2024 Start: 06-07-2024 End: 09-06-2024 Hepatitis C virus Ab [Presence] in Serum [facility] Comment on above: Expected: 06/07/2024 , Expires: 09/06/2024 Start: 06-07-2024 End: 09-06-2024 HIV 1+2 Ab [Presence] in Serum or Plasma by Immunoassay [facility] Comment on above: Expected: 06/07/2024 , Expires: 09/06/2024 Start: 06-07-2024 End: 06-07-2025 OBSTETRIC ULTRASOUND WHI OBSTETRIC ULTRASOUND WHI Anc Imaging Routine 8 weeks gestation of Expected: 06/07/2024, Expires: 06/07/2025 [facility] Comment on above: Expected: 06/07/2024 , Expires: 06/07/2025 Start: 06-07-2024 End: 09-06-2024 Protein/Creatinine [Mass Ratio] in Urine [facility] Comment on above: Expected: 06/07/2024 , Expires: 09/06/2024 Start: 06-07-2024 End: 09-06-2024 RUBELLA IGG ANTIBODY [facility] Comment on above: Expected: 06/07/2024 , Expires: 09/06/2024 Start: 06-07-2024 End: 09-06-2024 SYPHILIS TREPONEMAL W/REFLEX [facility] Comment on above: Expected: 06/07/2024 , Expires: 09/06/2024 Start: 06-07-2024 End: 09-06-2024 TYPE + SCREEN [facility] Comment on above: Expected: 06/07/2024 , Expires: 09/06/2024 Start: 06-07-2024 End: 06-07-2024 Patient encounter procedure 06/07/2024 10:30 AM EST Routine Office Visit OB/Gynecology [address] [place], [place] [id number] Crissy Tom APRN.CN [address] [place] [address] Last cycle 04/09/2024, expecting, took 2 at home test OB/Gynecology Comment on above: Last cycle , expecting, took 2 at home test Start: 12-07-2023 Covid-19 Vaccine ( season) Covid-19 Vaccine ( season) [facility] Start: 12-07-2023 Influenza vaccination Influenza Vacc ine (#1) [facility] Start: 12-06-2022 Influenza vaccination Influenza Vacc ine (#1) [facility] Start: 04-07-2022 Depression Assessment Depression Ass essment [facility] Start: 02-11-2022 End: 04-13-2022 Thyrotropin [Units/volume] in Serum or Plasma [facility] Work Phone: Comment on above: Expected: 02/11/2022 , Expires: 04/13/2022 Start: 12-06-2021 Influenza vaccination INFLUENZA (#1) [facility] Start: 04-07-2021 DEPRESSION ASSESSMENT DEPRESSION ASS ESSMENT [facility] Start: 2020 HPV TESTING HPV TESTING [facility] Start: 12-07-2019 Influenza vaccination INFLUENZA (#1) [facility] Start: 2017 HPV Vaccine (1 - 3-d ose SCDM series) HPV Vaccine (1 - 3-dose SCDM series) [facility] Start: 2011 PAP TESTING PAP TESTING [facility] Start: 2009 Hepatitis B Vaccine (1 of 3 - 19+ 3-dose series) Hepatitis B Vaccine (1 of 3 - 19+ 3-dose series) [facility] Start: 2009 Urine microalbumin profile DTAP,TDAP,TD (1 - Tdap) [facility] Start: 2008 Anxiety Screening Anxiety Screening [facility] Start: 2008 Depression Screening Depression Scre ening [facility] Start: 2008 HEPATITIS C SCREENING HEPATITIS C SC REENING [facility] Start: 2008 HIV SCREENING HIV SCREENING [facility] Start: 2002 Adult depression screening assessment DEPRESSION SCREENING [facility] Start: 1990 COVID-19 VACCINE (#1) COVID-19 VACCI NE (#1) [facility] Start: 1990 HEPATITIS B (1 of 3 - 3-dose series) HEPATITIS B (1 of 3 - 3-dose series) [facility] Start: 1990 Hepatitis B Vaccine (1 of 3 - 3-dose series) Hepatitis B Vaccine (1 of 3 - 3-dose series) [facility] Bacteria identified in Urine by Culture BACTERIAL CULTURE, URINE Microbiology Routine 8 weeks gestation of 06/07/2024 3:39 PM [facility] Bacteria identified in Urine by Culture BACTERIAL CULTURE, URINE Microbiology Routine 12 weeks gestation of UTI (urinary tract infection) in , antepartum , supervision, high-risk, unspecified trimester 07/05/2024 3:48 PM EDT [facility] Work Phone: Bacteria identified in Urine by Culture BACTERIAL CULTURE, URINE Microbiology Routine UTI (urinary tract infection) in , antepartum ([facility]) 08/02/2024 3:21 PM EDT [facility] Work Phone: Bacteria identified in Urine by Culture BACTERIAL CULTURE, URINE Microbiology Routine Supervision of high risk in second trimester ([facility]) History of pre-eclampsia UTI (urinary tract infection) in , antepartum (HCC) 21 weeks gestation of ([facility]) 09/03/2024 3:20 PM EDT [facility] Bacteria identified in Urine by Culture BACTERIAL CULTURE, URINE Microbiology Routine UTI (urinary tract infection) in , antepartum ([facility]) Supervision of high risk in second trimester ([facility]) Chronic hypertension in (HCC) 24 weeks gestation of ([facility]) Ordered: 09/27/2024 [facility] Comment on above: Ordered: 09/27/2024 Bacteria identified in Urine by Culture BACTERIAL CULTURE, URINE Microbiology Routine UTI (urinary tract infection) in , antepartum ([facility]) Supervision of high risk in second trimester ([facility]) Chronic hypertension in (HCC) 28 weeks gestation of ([facility]) 10/25/2024 3:01 PM EDT [facility] Work Phone: Chlamydia trachomatis+Neisseria gonorrhoeae DNA [Presence] in Unspecified specimen by KEVIN with probe detection GONORRHEA/CHLAMYDIA NAAT Lab Routine Screen for STD (sexually transmitted disease) 8 weeks gestation of 06/07/2024 3:39 PM EST [facility] End: 05-29-2021 HCG.beta subunit Qn HCG QUANTITATIVE Lab Routine Threatened miscarriage 1 Occurrences starting 05/29/2020 until 05/29/2021 [facility] Comment on above: 1 Occurrences starti ng 05/29/2020 until 05/29/2021 HCG.beta subunit Qn HCG QUANTITA TIVE Lab Routine Threatened miscarriage 05/29/2020 4:41 PM EST [facility] End: 01-25-2025 OBSTETRIC ULTRASOUND WHI OBSTETRIC ULTRASOUND WHI Anc Imaging Routine Chronic hypertension in (HCC) 21 weeks gestation of ([facility]) Once per month for 5 Occurrences starting 09/03/2024 until 01/25/2025 [facility] Work Phone: Comment on above: Once per month for 5 Occurrences starting 09/03/2024 until 01/25/2025 PAP TEST PAP TEST Lab Rou patsy Screening for cervical cancer 8 weeks gestation of 06/07/2024 3:39 PM [facility] TRICHOMONAS VAGINALI S NAAT TRICHOMONAS VAGINALIS NAAT Lab Routine Screen for STD (sexually transmitted disease) 8 weeks gestation of 06/07/2024 3:39 PM EST [facility] UA DIP,URINE HCG (POC) UA DIP,UR INE HCG (POC) Lab Routine UTI (urinary tract infection) in , antepartum ([facility]) Ordered: 09/07/2024 [facility] Work Phone: Comment on above: Ordered: 09/07/2024 [facility] Immunizations Immunization Date Immunization Notes Care Provider Ijeoma staley 11-13-2020 tetanus toxoid, redu rosemary diphtheria toxoid, and acellular pertussis vaccine, adsorbed Sheyla Moreno APRN.CNM Work Phone: [facility] 04-05-2019 tetanus toxoid, redu rosemary diphtheria toxoid, and acellular pertussis vaccine, adsorbed Dr. Chiki Gonzales MD Work Phone: [facility] Payers Date Payer Category Payer Self-pay 2024 Unknown [id number] 2023 [place] [employer] [facility] BLUE CARD PPO OOS Member Subscriber Plan / Payer (Effective 2023-Present) Name: Hillary Fraire Relation to Subscriber: Self Name: Hillary Fraire Payer ID: [id number] (NAIC) Type: PPO Address: [facility] [id number] [place] [id number] 2023 Unknown [id number] 2020 Unknown [id number] 2006 Private Health Insurance AEBOZENA QUINTERO PPO [id number] 2006-Present PPO [id number] Private Health Insurance [id number] Unknown [id number] Unknown [id number] Unknown [id number] Social History Date Type Detail Facility Start: 08-08-2012 Tobacco smoking stat us MSIS Never smoker [facility] Start: 08-08-2012 Alcohol intake Not Asked [facility] Start: 1990 Sex Assigned At Not on file C [facility] Start: 12-17-2020 End: 01-16-2021 Exposure to SARS-CoV-2 (event) Not sure [facility] Start: 06-08-2020 End: 01-09-2021 Tobacco smoking status NHIS Ex-smoker [facility] Work Phone: Start: 06-08-2009 End: 06-08-2017 History of tobacco use Current smoker [facility] Work Phone: Start: 06-08-2009 End: 06-08-2017 History of tobacco use Cigarette Smoker [facility] Work Phone: Start: 06-08-2020 End: 05-24-2024 Tobacco use and exposure Smokeless tobacco non-user [facility] Work Phone: Start: 02-20-2021 End: 11-08-2024 Alcohol intake Ex-drinker (finding) [facility] Start: 06-08-2020 Education 16 [facility] Start: 06-08-2020 Alcohol Comment social occasional dr mclaughlin [facility] Start: 02-11-2022 End: 04-09-2023 History of Social function [facility] Start: 02-11-2022 End: 04-09-2023 Tobacco use panel [facility] Start: 03-08-2012 National Score (1-100), lower number is lower risk 51 [facility] Start: 1990 Sex assigned at Female C [facility] Start: 05-20-2024 Gender identity Identifies as female gender (finding) [facility] Start: 06-07-2024 Tobacco use and exposure Former smokeless tobacco user [facility] Start: 06-07-2024 Tobacco Comment Nicotine pouch discontinued 04/2024 [facility] Start: 04-23-2024 [facility] Goals Date Patient Goal Desired Activity /State Personal health goal Mental Status Date Assessment Result Facility 12-06-2024 Cognitive function Level Of Cons ciousness Awake;Alert [facility] Work Phone: Clinical Notes 11-15-2020 to 12-06-2024 Note Date & Type Note Facility 12-06-2024 Consult note Note Date/Time December 06, 2024 1:48pm [facility] Medical Records Department [address] [place] [address] Anesthesia Postop Eval I 12/06/24 1045 MR#: [id number] Acct: [id number] Name: HILLARY FRAIRE Rep #:[id number] : 1990 34 From: Darryl Geiger PCP: Dr. Chiki Gonzales MD Status:ADM I N Y Race: C Location: [place] [address] Anesthesia: Postop Eval I Current Vital Signs Temperature: 97.3 F Pulse Rate: 87 Blood Pressure: 130/69 Respiratory Rate: 18 Pulse Ox: 100 Oxygen Delivery Method: Room Air Assessment Airway patent: Yes Spontaneous unlabored respirations: Yes Mental status: Awake nausea: No Vomiting: No Anesthesia Complication: No Fluid Hydration Crystalloid volume administer (ml): 350 Total IV fluid infused: 350 Progress Note Post-operative progress note: Stable s/p SAB for cysto/L ureteral stent. Bilateral level at T-10 Anesthesia document: Postop Eval 1 completed: Yes 12/06/24 1348 <Electronically signed by Darryl Harvey MD> Date _ [facility]: Date CC: ~ Signed [facility] Work Phone: 1(583) 732-129209-01-[address] [facility] Medical Records Department [address] [place] [address] Discharge Summary 12/06/24 1458 MR#: [id number] Acct: [id number] Name: HILLARY FRAIRE Rep #: [id number] : 1990 34 From: Polly Hamilton MD PCP: Dr. Chiki Gonzales MD Status:DIS IN Location: [id number] Providers Date of Admission: 12/04/24 Date of Discharge: 12/06/24 Primary Care Physician: Dr. Chiki Gonzales MD Consultations 12/04/24 14:49 Consult: Urology Routine Consulting Provider: Latesha Elena Reason for Consult: Kidney stone EMERGENT Consult: No MD Notified: Yes Date Notified: 12/04/24 Time Notified: 14:49 Method of Notification: Text Reason For Visit: PYELONEPHRITIS Diagnosis Discharge Diagnosis (1) Ureteropelvic junction calculus: Status: Acute Code(s): N20.1 - Calculus of ureter (2) Recurrent UTI (urinary tract infection) complicating : Status: Acute Code(s): O23.40 - Unspecified infection of urinary tract in , unspecified trimester (3) Hydronephrosis: Status: Acute Code(s): N13.30 - Unspecified hydronephrosis Qualifiers: Hydronephrosis type: with ureteropelvic junction obstruction Qualified Code(s): Q62.11 - Congenital occlusion of ureteropelvic junction Medications at Discharge Home Medications hbkcivta-ukh-Dp-FA 1 mg tablet 1 tab PO DAILY 01/08/21 acetaminophen 500 mg tablet 1,000 mg (2 x 500 mg) PO Q6H PRN PRN Pain 1-10 Or Fever #0 tabs 01/13/21 aspirin 81 mg capsule 81 mg PO DAILY 12/04/24 cephalexin 500 mg capsule 500 mg PO TID #60 caps 12/06/24 oxycodone 5 mg capsule 5 mg PO Q8H PRN pain 5 days #15 caps 12/06/24 Hospital Course Operations None Procedures - (cystoscopy with stent placement) Summary of Care Provided Minutes Spent on Discharge: 20 Hospital Course: Admitted with suspected pyelonephritis and found to have an obstructing renal stone. Cysto with stent placement performed with spinal anesthesia. Urine culture positive and sensitive to Keflex. Weight / BMI Weight Weight: 127.176 kg Body Mass Index (BMI) 38.0 ABG / Lab / Microbiology Data 12/06/24 05:45 12/04/24 15:54 Laboratory: Laboratory Results - last 24 hr 12/06/24 05:45: WBC 14.8 H, RBC 3.00 L, Hgb 9.1 L, Hct 27.3 L, MCV 91.0, MCH 30.3, MCHC 33.3, RDW Std Deviation 42.8, RDW Coeff of Anabela 13.1, Plt Count 167, MPV 11.9, Immature Gran % (Auto) 0.900, N eut % (Auto) 78.3 H, Lymph % (Auto) 12.4 L, Sargent % (Auto) 8.0, Eos % (Auto) 0.2, Baso % (Auto) 0.2, Absolute Neuts (auto) 11.6 H, Absolute Lymphs (auto) 1.84, Nucleated RBC % 0 Microbiology: Microbiology 12/04/24 11:20 Urine, Clean Catch Urine Culture - Final Escherichia coli D/C Instructions Discharge Activity: Return to Normal Activity Return to work on: 12/08/24 May resume sexual activity in: No Restrictions Weight Bearing Status: Weight bearing as tolerated Call your doctor if you observe: Fever of 101 or Higher, Inability to urinate and Uncontrolled pain DC O2, CPAP, BIPAP Needs Home O2 Discharge instructions: No Meaningful Use Info Meaningful Use Meaningful Use Diagnoses (Choose all that apply): None applicable Discharge Plan Admission Admit Date/Time: 12/04/24 17:00 Primary Reason for Your Visit: UTI, kidney stone Attending Provider: Sheyla Moreno Primary Care Provider: Chiki Gonzales Consulting Providers: Latesha Elena Instructions Additional Instructions / Restrictions: keep already scheduled apt for 12/13/2024 w [facility]. Discharge Orders/Prescriptions Prescriptions: New oxycodone 5 mg capsule 5 mg PO Q8H PRN (Reason: pain) 5 Days Qty: 15 0RF cephalexin 500 mg capsule 500 mg PO TID Qty: 60 0RF Continued wgxuykfj-xya-Is-FA 1 mg Tablet 1 tab PO DAILY acetaminophen 500 mg Tablet 1,000 mg PO Q6H PRN PRN (Reason: Pain 1-10 Or Fever) Qty: 0 0RF aspirin 81 mg capsule 81 mg PO DAILY Discontinued nitrofurantoin monohyd/m-cryst [Macrobid] 100 mg capsule 100 mg PO DAILY Referrals / Follow Up: Chiki Gonzales MD [Primary Care Provider] - Disposition Disposition (needs filled in before D/C Order can be placed): Home, Self Care 12/06/24 2503 Cosigner Signature (if applicable): CC: Dr. Polly [place] MD; [facility] Ch[facility] note [facility] Medical Records Department [address] [place] [address] Anesthesia Postop Eval I 12/06/24 1045 MR#: [id number] Acct: [id number] Name: HILLARY FRAIRE Rep #:[id number] : 1990 34 From: Darryl Geiger PCP: Dr. Chiki Gonzales MD Status:ADM I N Y Race: C Location: [place] [address] Anesthesia: Postop Eval I Current Vital Signs Temperature: 97.3 F Pulse Rate: 87 Blood Pressure: 130/69 Respiratory Rate: 18 Pulse Ox: 100 Oxygen Delivery Method: Room Air Assessment Airway patent: Yes Spontaneous unlabored respirations: Yes Mental status: Awake nausea: No Vomiting: No Anesthesia Complication: No Fluid Hydration Crystalloid volume administer (ml): 350 Total IV fluid infused: 350 Progress Note Post-operative progress note: Stable s/p SAB for cysto/L ureteral stent. Bilateral level at T-10 Anesthesia document: Postop Eval 1 completed: Yes 12/06/24 1348 > Date _ Darryl Harvey MD Cosigner Signature: Date CC: ~ Signed [facility]09-01-2025 Consult note Author Darryl [facility] Note Date/Time December 06, 2024 10:48am [facility] Medical Records Department [address] [place] [address] Anesthesia Postop Eval II 12/06/24 1047 MR#: [id number] Acct: [id number] Name: HILLARY FRAIRE Rep #:[id number] : 1990 34 From: Darryl Geiger PCP: Dr. Chiki Gonzales MD Status:ADM I N Y Race: C Location: [place] [id number] Anesthesia Postop Eval I Sum Postop Eval Completion status Anesthesia document: Postop Eval 1 completed: Yes Anesthesia Postop Eval I Summary Anesthesia Postop Eval I Summary: Anesthesia Postop Eval I: Assessment Summary Airway patent Yes 12/06/24 10:47 Spontaneous unlabored Yes 12/06/24 10:47 respirations Mental status Awake 12/06/24 10:47 nausea No 12/06/24 10:47 Vomiting No 12/06/24 10:47 Anesthesia Postop Eval I: Fluid Summary Crystalloid volume administer 350 12/06/24 10:47 (ml) Colloids volume administered ( ml) Blood Product volume administered (ml) Total IV fluid infused 350 12/06/24 10:47 Anesthesia Postop Eval I: Summary Notes Anesthesia Complication No 12/06/24 10:47 Anesthesia Complication Comment: Post-operative progress note Stable s/p SAB for 12/06/24 10:47 cysto/L ureteral stent. Bilateral level at T-10 Anesthesia: Postop Eval II Evaluation Mental status: Awake and Calm Pain Level: 0 nausea: No Vomiting: No Progress Note Post-operative progress note: Meets criteria to return to [facility]//OB Complications Anesthesia Complication: No 12/06/24 1048 <Electronically signed by Darryl Harvey MD> Date _ Darryl Harvey MD Cosigner Signature: Date CC: ~ Signed [facility] Work Phone: 1(971) 714-622509-01-2025 Progress note Author Latesha Elena [facility] Note Date/Time December 06, 2024 10:13am [facility] Medical Records Department [address] [place] [address] Progress Note - Urology 12/06/24 1002 MR#: [id number] Acct: [id number] Name: HILLARY FRAIRE Rep #:[id number] : 1990 34 From: Latesha Geiger PCP: Dr. Chiki Gonzales MD Status:ADM I N Location: [place] [address] Subjective Subjective No issues overnight. She is anxious about the procedure but otherwise doing okay. Objective Data Objective Data Vital Signs: Vital Signs Temp Pulse Resp BP Pulse Ox O2 Del Method 98.9 F 86 18 117/55 L 96 Room Air 12/06/24 07:40 12/06/24 07:40 12/06/24 07:40 12/06/24 07:40 12/06/24 07:40 12/06/24 07:40 Oxygen Delivery Method Room Air Weight: 280 lb 6 oz Body Mass Index (BMI) 38.0 Intake & Output: Intake and Output for Last 24 Hours 12/04/24 12/05/24 12/06/24 23:59 23:59 23:59 Intake Total 3577.35 / 3577.35 4898.75 / 4898.75 2483.33 / 2483.33 Output Total 600 / 600 4000 / 4000 1200 / 1200 Balance 2977.35 / 2977.35 898.75 / 898.75 1283.33 / 1283.33 Lab / Micro Data Attestation: I reviewed the patient's lab results. 12/06/24 05:45 12/04/24 15:54 Labs: Laboratory Results - last 24 hr 12/06/24 05:45: WBC 14.8 H, RBC 3.00 L, Hgb 9.1 L, Hct 27.3 L, MCV 91.0, MCH 30.3, MCHC 33.3, RDW Std Deviation 42.8, RDW Coeff of Anabela 13.1, Plt Count 167, MPV 11.9, Immature Gran % (Auto) 0.900, Neut % (Auto) 78.3 H, Lymph % (Auto) 12.4 L, Sargent % (Auto) 8.0, Eos % (Auto) 0.2, Baso % (Auto) 0.2, Absolute Neuts (auto) 11.6 H, Absolute Lymphs (auto) 1.84, Nucleated RBC % 0 Micro: Microbiology 12/04/24 11:20 Urine, Clean Catch Urine Culture - Final Escherichia coli Physical Exam Const alert, oriented x3 and no apparent distress General Appearance: cooperative Orientation / Consciousness: awake HEENT normocephalic GI GI Narrative: abd soft, gravid, non tender, fundus appropriate for gestational age Narrative: CVA tenderness right side Extremity Extremity Narrative: trace edema, symmetrical Assessment & Plan Assessment/Plan (1) Ureteropelvic junction calculus: (2) Recurrent UTI (urinary tract infection) complicating : (3) Hydronephrosis: QUALIFIERS: Hydronephrosis type: with ureteropelvic junction obstruction Qualified Code(s): Q62.11 - Congenital occlusion of ureteropelvic junction PLAN: Plan proceed with intervention as scheduled compete antibiotic course and continue nighty prophylaxis Ecoli sensitive to current antibiotics continue supportive care and obstetric care stone treatment in about 8 weeks 12/06/24 1013 <Electronically signed by Latesha Elena MD> Cosigner Signature (if applicable): CC: ~ Signed [facility] Work Phone: 1(872) 553-454009-01-2025 Consult note [facility] Medical Records Department [address] [place] [address] Anesthesia Postop Eval II 12/06/24 1047 MR#: [id number] Acct: [id number] Name: HILLARY FRAIRE Rep #:[id number] : 1990 34 From: Darryl Geiger PCP: Dr. Chiki Gonzales MD Status:ADM I N Y Race: C Location: [place] [id number]- Anesthesia Postop Eval I Sum Postop Eval Completion status Anesthesia document: Postop Eval 1 completed: Yes Anesthesia Postop Eval I Summary Anesthesia Postop Eval I Summary: Anesthesia Postop Eval I: Assessment Summary Airway patent Yes 12/06/24 10:47 Spontaneous unlabored Yes 12/06/24 10:47 respirations Mental status Awake 12/06/24 10:47 nausea No 12/06/24 10:47 Vomiting No 12/06/24 10:47 Anesthesia Postop Eval I: Fluid Summary Crystalloid volume administer 350 12/06/24 10:47 (ml) Colloids volume administered ( ml) Blood Product volume administered (ml) Total IV fluid infused 350 12/06/24 10:47 Anesthesia Postop Eval I: Summary Notes Anesthesia Complication No 12/06/24 10:47 Anesthesia Complication Comment: Post-operative progress note Stable s/p SAB for 12/06/24 10:47 cysto/L ureteral stent. Bilateral level at T-10 Anesthesia: Postop Eval II Evaluation Mental status: Awake and Calm Pain Level: 0 nausea: No Vomiting: No Progress Note Post-operative progress note: Meets criteria to return to [facility]//OB Complications Anesthesia Complication: No 12/06/24 1048 > Date _ Darryl [facility] MD Cosigner Signature: Date CC: ~ Signed [facility]09-01-2025 Procedure note [facility] Medical Records Department [address] [place] [address] Operative Report 12/06/24 1007 MR#: [id number] Acct: [id number] Name: HILLARY FRAIRE Rep #:[id number] : 1990 34 From: Latesha Geiger PCP: Dr. Chiki Gonzales MD Status:ADM I N Location: [id number] Operative Report (Standard) Operative Information Date of Procedure: 12/06/24 Pre-Operative Diagnosis: Left ureteropelvic junction stone with obstruction and urinary tract infection Post-Operative Diagnosis: Same Surgery/Procedure Performed: Cystoscopy with left ureteral stent insertion formstone fitter: No Type of Anesthesia: Spinal RN Documented Start/Stop Times: Operation Date: 12/06/24 10:10 Case Time Anesthesia Start 12/06/24 10:08 Into Room 12/06/24 10:08 Procedure Start 12/06/24 10:23 Procedure End 12/06/24 10:29 Anesthesia End 12/06/24 10:37 Out of Room 12/06/24 10:37 Into Recovery 12/06/24 10:41 Procedure Start Time: 10:23 Procedure Stop Time: 10:29 Select all DRAINS/GRAFTS/IMPLANTS that apply: Drains Drain details: 4.5 Haitian x28 cm JJ stent Estimated Blood Loss: <5cc Specimen collected: No Description of surgery: The patient is a 34-year-old female with a left UPJ stone with obstruction and UTI during . She presents today for placement of a left ureteral stentvia cystoscopy. Informed consent has beenobtained. She was taken to the operating room and placed on the operating room table. Anesthesia monitored the head, neck, airway, IV access and vital signs throughout the case. Once anesthesia was appropriateadministered, she was placed into dorsal lithotomy position and was prepped and draped in usual sterile fashion. A cystoscope was inserted through the urethra under direct visualization into the urinary bladder. The bladder mucosa was visualized in its entirety revealing no evidence of mass, erythema, ulceration or foreign body. The left ureteral orifice was identified and gently intubated with a0.035 Glidewire. The wire was visualized beyond the stone in the renal pelvis. A 4.5 Haitian 28 cm stent was placed over the wire with good positioning in the renal pelvis as well as the urinary bladder. At this time the bladder was emptied and the cystoscope was removed. She was awakened and taken to the recovery room in good condition. There were no complications during this procedure. Surgical Findings: 4.5 Haitian x 28 cm JJ stent Complications Complications: No Admit VTE Documentation VTE Present on Admission: Yes VTE Mechan Device Prophylaxis: SCD's VTE Pharm Prophylaxis ordered?: No Reason prophylaxis not ordered: Treatment Not Indicated 12/06/24 1048 Cosigner Signature (if applicable): CC: CARLOS Moreno; Dr. Latesha Elena MD; Dr. Chiki Gonzales MD~ Signed [facility]09-01-2025 Progress note [facility] Medical Records Department [address] [place] [address] Progress Note - Urology 12/06/24 1002 MR#: [id number] Acct: [id number] Name: HILLARY FRAIRE Rep #:[id number] : 1990 34 From: Latesha Geiger PCP: Dr. Chiki Gonzales MD Status:ADM I N Location: [place] [address] Subjective Subjective No issues overnight. She is anxious about the procedure but otherwise doing okay. Objective Data Objective Data Vital Signs: Vital Signs Temp Pulse Resp BP Pulse Ox O2 Del Method 98.9 F 86 18 117/55 L 96 Room Air 12/06/24 07:40 12/06/24 07:40 12/06/24 07:40 12/06/24 07:40 12/06/24 07:40 12/06/24 07:40 Oxygen Delivery Method Room Air Weight: 280 lb 6 oz Body Mass Index (BMI) 38.0 Intake & Output: Intake and Output for Last 24 Hours 12/04/24 12/05/24 12/06/24 23:59 23:59 23:59 Intake Total 3577.35 / 3577.35 4898.75 / 4898.75 2483.33 / 2483.33 Output Total 600 / 600 4000 / 4000 1200 / 1200 Balance 2977.35 / 2977.35 898.75 / 898.75 1283.33 / 1283.33 Lab / Micro Data Attestation: I reviewed the patient's lab results. 12/06/24 05:45 12/04/24 15:54 Labs: Laboratory Results - last 24 hr 12/06/24 05:45: WBC 14.8 H, RBC 3.00 L, Hgb 9.1 L, Hct 27.3 L, MCV 91.0, MCH 30.3, MCHC 33.3, RDW Std Deviation 42.8, RDW Coeff of Anabela 13.1, Plt Count 167, MPV 11.9, Immature Gran % (Auto) 0.900, Neut % (Auto) 78.3 H, Lymph % (Auto) 12.4 L, Sargent % (Auto) 8.0, Eos % (Auto) 0.2, Baso % (Auto) 0.2, Absolute Neuts (auto) 11.6 H, Absolute Lymphs (auto) 1.84, Nucleated RBC % 0 Micro: Microbiology 12/04/24 11:20 Urine, Clean Catch Urine Culture - Final Escherichia coli Physical Exam Const alert, oriented x3 and no apparent distress General Appearance: cooperative Orientation / Consciousness: awake HEENT normocephalic GI GI Narrative: abd soft, gravid, non tender, fundus appropriate for gestational age Narrative: CVA tenderness right side Extremity Extremity Narrative: trace edema, symmetrical Assessment & Plan Assessment/Plan (1) Ureteropelvic junction calculus: (2) Recurrent UTI (urinary tract infection) complicating : (3) Hydronephrosis: QUALIFIERS: Hydronephrosis type: with ureteropelvic junction obstruction Qualified Code(s): Q62.11 - Congenital occlusion of ureteropelvic junction PLAN: Plan proceed with intervention as scheduled compete antibiotic course and continue nighty prophylaxis Ecoli sensitive to current antibiotics continue supportive care and obstetric care stone treatment in about 8 weeks 12/06/24 1013 Cosigner Signature (if applicable): CC: ~ Signed [facility]09-01-2025 Consult note Author Darryl [facility] Note Date/Time December 06, 2024 7:04am [facility] Medical Records Department [address] [place] [address] Pre-Anesthesia Evaluation 12/06/24 0701 MR#: [id number] Acct: [id number] Name: HILLARY FRAIRE Rep #:[id number] : 1990 34 From: Darryl Geiger PCP: Dr. Chiki Gonzales MD Status:ADM I N Y Race: C Location: [place] [address] ASA Classification* ASA Classification ASA Classification: 2 and E Assessment & Plan Anesthesia* Anesthesia Assessment Anesthesia Assessment: Discussed sedation and/or anesthesia options, risks, benefits, and alternatives with patient/parents/legal guardian/POA. Questions invited. The patient/parents/legal guardian/POA seems to understand and agrees to proceedwith anesthesia plan. Reviewed the physical assessment, medical history, allergy history and patient home medications list prior to surgery/procedure/anesthetic and documented any changes. Performed airway and anesthesia risk assessments. Procedural Plan Add'l anesthesia plan details: Discussed anesthetic options for Cysto/Left ureteral stent placement with current 34 wk healthy . Risks/benefits discussed. Pt agreeable to spinal anesthetic with light anxiolysis. Discussed GETA as a back- up plan. Questions answered with patient and . They agree to proceed. Anesthesia Type Anesthesia Type: Spinal History Source History Obtained from:: Patient and Chart Anesthesia Focused Assessment* Temperature: 99.8 F Pulse Rate: 88 Blood Pressure: 115/56 Respiratory Rate: 18 Pulse Ox: 99 Oxygen Delivery Method: Room Air Airway Assessment Mouth opens: >3 cm Mallampati Score: I Teeth Condition: Intact Neck Range of motion (ROM): Full ROM Labs Anesthesia Preop lab: CBC WBC 14.8 K/mm3 (4.4-11.0) H 12/06/24 05:45 5 RBC 3.00 M/mm3 (4.2-5.4) L 12/06/24 05:45 12/06/24 Hgb 9.1 g/dL (12.0-15.0) L 12/06/24 05:45 12/06/24 Hct 27.3 % (37-47) L 12/06/24 05:45 12/06/24 Plt Count 167 K/mm3 (150-450) 12/06/24 05:45 12/06/24 CHEMISTRY Potassium 3.7 mmol/L (3.5-5.1) 01/12/21 08:55 01/12/21 Sodium 141 mmol/L (136-145) 01/12/21 08:55 01/12/21 BUN 12 mg/dL (7-18) 01/12/21 08:55 01/12/21 Creatinine 1.00 mg/dL (0.70-1.20) 12/04/24 15:54 12/04/24 Glucose 72 mg/dL (74-106) L 01/12/21 08:55 01/12/21 COAG Pre-Assessment Diagnosis/Proposed Procedure Planned Operative Procedure(s): Cystoscopy//Left ureteral stent Anesthesia History Anesthesia History - setter induction heating equipment: Anesthesia History - setter induction heating equipment Hx Hospitalization Any Problems With Anesthesia Cholinesterase deficiency You/Your Family Experience fever (hyperthermia) with Relationship Recent Exposure to Contagious Disease Does patient have nerve stimulator Patient instructed to have device shut off --Does patient have Pacemaker or ICD? When Was Last Pacemaker Check QUESTION #4 FULL TEXT: You/Your Family Experience fever (hyperthermia) with Anesthesia Last Oral Intake Last Oral intake: Last Oral Intake NPO since Meds taken in AM with sips of water? 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 - setter induction heating equipment: PONV - setter induction heating equipment Female HX of Motion Sickness HX of N/V After Surgery Non-Smoker Duration of Surgery greater than 60 minutes Number of Risk Factors PONV Score Height & Weight Height & Weight: Anesthesia: Height & Weight Height 6 ft 12/04/24 11:37 Weight: 127.176 kg 12/04/24 11:37 Body Mass Index (BMI) 38.0 12/04/24 11:37 Respiratory Assessment Respiratory Assessment - setter induction heating equipment: Respiratory Tract Infection Hx - setter induction heating equipment Hx Respiratory Tract Infection STOP Sleep Apnea STOP Sleep Apnea - setter induction heating equipment: STOP Sleep Apnea - setter induction heating equipment Hx Hypertension Hx Sleep Apnea CPAP BIPAP Do you snore loudly (louder than talking or can be heard Do you often feel tired/ fatigued/ sleepy during daytime? Has anyone observed you stop breathing during sleep? STOP Results QUESTION #5 FULL TEXT : Do you snore loudly (louder than talking or can be heard through closed doors)? 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 Specify any problems Hx of Preganancy in last 3 Months Nurse Filling Out Transfusion & Questions: Date: Time: Patient unable to answer at this time (ie. 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 Hx Now Gestational Age (in weeks): EDC: Hx Hx Para Hx Section SAB Active Medications Active Medications: Current Medications Generic Name Dose Route Start Last Admin Trade Name Freq PRN Reason Stop Dose Admin Acetaminophen 1,000 mg 12/04/24 20:00 12/05/24 16:40 Acetaminophen 500 Mg Tablet PO 1,000 mg Q8H PRN PRN Administration Pain Score 1-3 Cefepime HCl 1 gm/ Sodium 50 mls @ 100 mls/hr 12/05/24 12:00 12/05/24 12:24 Chloride IV Infused Q24H CECILIA Infusion Lactated Ringer's 1,000 mls @ 125 mls/hr 12/05/24 14:15 12/06/24 02:28 IV 125 mls/hr .Q8H CECILIA Administration Lactated Ringer's 1,000 mls @ 999 mls/hr 12/06/24 08:00 IV 12/06/24 09:00 .Q1H1M CECILIA Morphine Sulfate 2 mg 12/04/24 18:00 Morphine 2 Mg/Ml Syringe IV Q3H PRN PRN Pain Score 4-10 Morphine Sulfate 4 mg 12/04/24 18:00 12/06/24 06:17 Morphine 4 Mg/Ml Syringe IV 4 mg Q3H PRN PRN Administration Pain Score 6-10 Ondansetron HCl 4 mg 12/04/24 18:30 Ondansetron 4 Mg/2 Ml Vial IV Q6H PRN PRN NAUSEA/VOMITING Sodium Chloride 10 - 40 ml 12/05/24 04:50 12/06/24 06:17 0.9% Saline Lock 10 Ml Syringe IV 10 ml X1 PRN Administration SALINE FLUSH PFSH Medical History (Updated 12/05/24 @ 13:[address] Adina Krueger MD) Hydronephrosis Ureteropelvic junction calculus SROM (spontaneous rupture of membranes) Anxiety Home Medications ?Medication ?Instructions ?Recorded ?Last Taken ?Type [id number] 1 mg 1 tab PO DAILY pregna ncy 01/08/21 01/08/21 10: 00 History tablet acetaminophen 500 mg tablet 1,000 mg (2 x 500 mg) PO Q 6H PRN 01/13/21 Unknown Rx PRN Pain 1-10 Or Fever #0 tabs aspirin 81 mg capsule 81 mg PO DAILY 12/04/24 Unkn own History nitrofurantoin 100 mg PO DAILY UTI 12/04/24 Unknown History monohydrate/macrocrystals 100 mg capsule (Macrobid) Allergy/AdvReac Type Severity Reaction Status Date / Time No Known Allergies Allergy Verified 12/04/24 11:01 Surgical History H/O wisdom tooth extraction Social History Smoking Status: Former smoker Review of Systems (Anesthesia) ROS Narrative System reviewed and no additional complaints, except as documented. 12/06/24703 <Electronically signed by Darryl Harvey MD> Date _ Darryl Harvey MD Cosigner Signature: Date CC: ~ Signed [facility] Work Phone: 1(645) 206-699609-01-2025 Consult note [facility] Medical Records Department [address] [place] [address] Pre-Anesthesia Evaluation 12/06/24 07 MR#: [id number] Acct: [id number] Name: HILLARY FRAIRE Rep #:[id number] : 1990 34 From: Darryl Geiger PCP: Dr. Chiki Gonzales MD Status:ADM I N Y Race: C Location: [place] [id number]- [id number] ASA Classification* ASA Classification ASA Classification: 2 and E Assessment & Plan Anesthesia* Anesthesia Assessment Anesthesia Assessment: Discussed sedation and/or anesthesia options, risks, benefits, and alternatives with patient/parents/legal guardian/POA. Questions invited. The patient/parents/legal guardian/POA seems to understand and agrees to proceedwith anesthesia plan. Reviewed the physical assessment, medical history, allergy history and patient home medications list prior to surgery/procedure/anesthetic and documented any changes. Performed airway and anesthesia risk assessments. Procedural Plan Add'l anesthesia plan details: Discussed anesthetic options for Cysto/Left ureteral stent placementwith current 34 wk healthy . Risks/benefits discussed. Pt agreeable to spinal anesthetic with light anxiolysis. Discussed GETA as a back-up plan. Questions answered with patient and .They agree to proceed. Anesthesia Type Anesthesia Type: Spinal History Source History Obtained from:: Patient and Chart Anesthesia Focused Assessment* Temperature: 99.8 F Pulse Rate: 88 Blood Pressure: 115/56 Respiratory Rate: 18 Pulse Ox: 99 Oxygen Delivery Method: Room Air Airway Assessment Mouth opens: >3 cm Mallampati Score: I Teeth Condition: Intact Neck Range of motion (ROM): Full ROM Labs Anesthesia Preop lab: CBC WBC 14.8 K/mm3 (4.4-11.0) H 12/06/24 05:45 5 RBC 3.00 M/mm3 (4.2-5.4) L 12/06/24 05:45 12/06/24 Hgb 9.1 g/dL (12.0-15.0) L 12/06/24 05:45 12/06/24 Hct 27.3 % (37-47) L 12/06/24 05:45 12/06/24 Plt Count 167 K/mm3 (150-450) 12/06/24 05:45 12/06/24 CHEMISTRY Potassium 3.7 mmol/L (3.5-5.1) 01/12/21 08:55 01/12/21 Sodium 141 mmol/L (136-145) 01/12/21 08:55 01/12/21 BUN 12 mg/dL (7-18) 01/12/21 08:55 01/12/21 Creatinine 1.00 mg/dL (0.70-1.20) 12/04/24 15:54 12/04/24 Glucose 72 mg/dL (74-106) L 01/12/21 08:55 01/12/21 COAG Pre-Assessment Diagnosis/Proposed Procedure Planned Operative Procedure(s): Cystoscopy//Left ureteral stent Anesthesia History Anesthesia History - setter induction heating equipment: Anesthesia History - setter induction heating equipment Hx Hospitalization Any Problems With Anesthesia Cholinesterase deficiency You/Your Family Experience fever (hyperthermia) with Relationship Recent Exposure to Contagious Disease Does patient have nerve stimulator Patient instructed to have device shut off --Does patient have Pacemaker or ICD? When Was Last Pacemaker Check QUESTION #4 FULL TEXT: You/Your Family Experience fever (hyperthermia) with Anesthesia Last Oral Intake Last Oral intake: Last Oral Intake NPO since Meds taken in AM with sips of water? 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 - setter induction heating equipment: PONV - setter induction heating equipment Female HX of Motion Sickness HX of N/V After Surgery Non-Smoker Duration of Surgery greater than 60 minutes Number of Risk Factors PONV Score Height & Weight Height & Weight: Anesthesia: Height & Weight Height 6 ft 12/04/24 11:37 Weight: 127.176 kg 12/04/24 11:37 Body Mass Index (BMI) 38.0 12/04/24 11:37 Respiratory Assessment Respiratory Assessment - setter induction heating equipment: Respiratory Tract Infection Hx - setter induction heating equipment Hx Respiratory Tract Infection STOP Sleep Apnea STOP Sleep Apnea - setter induction heating equipment: STOP Sleep Apnea - setter induction heating equipment Hx Hypertension Hx Sleep Apnea CPAP BIPAP Do you snore loudly (louder than talking or can be heard Do you often feel tired/ fatigued/ sleepy during daytime? Has anyone observed you stop breathing during sleep? STOP Results QUESTION #5 FULL TEXT : Do you snore loudly (louder than talking or can be heard through closeddoors)? 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 Specify any problems Hx of Preganancy in last 3 Months Nurse Filling Out Transfusion & Questions: Date: Time: Patient unable to answer at this time (ie. 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 Hx Now Gestational Age (in weeks): EDC: Hx Hx Para Hx Section SAB Active Medications Active Medications: Current Medications Generic Name Dose Route Start Last Admin Trade Name Freq PRN Reason Stop Dose Admin Acetaminophen 1,000 mg 12/04/24 20:00 12/05/24 16:40 Acetaminophen 500 Mg Tablet PO 1,000 mg Q8H PRN PRN Administration Pain Score 1-3 Cefepime HCl 1 gm/ Sodium 50 mls @ 100 mls/hr 12/05/24 12:00 12/05/24 12:24 Chloride IV Infused Q24H CECILIA Infusion Lactated Ringer's 1,000 mls @ 125 mls/hr 12/05/24 14:15 12/06/24 02:28 IV 125 mls/hr .Q8H CECILIA Administration Lactated Ringer's 1,000 mls @ 999 mls/hr 12/06/24 08:00 IV 12/06/24 09:00 .Q1H1M CECILIA Morphine Sulfate 2 mg 12/04/24 18:00 Morphine 2 Mg/Ml Syringe IV Q3H PRN PRN Pain Score 4-10 Morphine Sulfate 4 mg 12/04/24 18:00 12/06/24 06:17 Morphine 4 Mg/Ml Syringe IV 4 mg Q3H PRN PRN Administration Pain Score 6-10 Ondansetron HCl 4 mg 12/04/24 18:30 Ondansetron 4 Mg/2 Ml Vial IV Q6H PRN PRN NAUSEA/VOMITING Sodium Chloride 10 - 40 ml 12/05/24 04:50 12/06/24 06:17 0.9% Saline Lock 10 Ml Syringe IV 10 ml X1 PRN Administration SALINE FLUSH PFSH Medical History (Updated 12/05/24 @ 13:[address] Adina Krueger MD) Hydronephrosis Ureteropelvic junction calculus SROM (spontaneous rupture of membranes) Anxiety Home Medications ?Medication ?Instructions ?Recorded ?Last Taken ?Type qjuyrrox-cig-Xn-FA 1 mg 1 tab PO DAILY pregna ncy 01/08/21 01/08/21 10: 00 History tablet acetaminophen 500 mg tablet 1,000 mg (2 x 500 mg) PO Q 6H PRN 01/13/21 Unknown Rx PRN Pain 1-10 Or Fever #0 tabs aspirin 81 mg capsule 81 mg PO DAILY 12/04/24 Unkn own History nitrofurantoin 100 mg PO DAILY UTI 12/04/24 Unknown History monohydrate/macrocrystals 100 mg capsule (Macrobid) Allergy/AdvReac Type Severity Reaction Status Date / Time No Known Allergies Allergy Verified 12/04/24 11:01 Surgical History H/O wisdom tooth extraction Social History Smoking Status: Former smoker Review of Systems (Anesthesia) ROS Narrative System reviewed and no additional complaints, except as documented. 12/06/24703 > Date _ Darryl Harvey MD Cosigner Signature: Date CC: ~ Signed [facility]08-31-2025 History and physical note Author Adina Krueger [facility] Note Date/Time December 05, 2024 1: 59pm [facility] Medical Records Department [address] [place] [id number] OB Triage Physician Note 12/05/24 1333 MR#: [id number] Acct: [id number] Name: HILLARY FRAIRE Rep #:[id number] : 1990 34 From: Adina Krueger MD PCP: Dr. Chiki Gonzales MD Status:ADM I N Y [id number] - General General Date of Admission: 12/04/24 Date of Service: 12/05/24 Chief Complaint: kidney stone, flank pain, recurrent UTI at 34 weeks HPI Narrative This is her daily progress note. HILLARY FRAIRE, is a 34 F who presents @ 34+ weeks w/ c/o flank pain. Dx w/ UTI, likely pylo and antibiotics started based on sensitivities from last urine culture. CT ordered and kidney stone noted. Patient initially placed under observation for suspected pylo. Maternal Data Information Final BRITTANY: 01/14/25 Gestational age: 34 2/7 [facility] Medical History (Updated 12/05/24 @ 13:[address] Adina Krueger MD) Hydronephrosis Ureteropelvic junction calculus SROM (spontaneous rupture of membranes) Anxiety Home Medications ?Medication ?Instructions ?Recorded ?Last Taken ?Type cgihzvug-bvh-Mg-FA 1 mg 1 tab PO DAILY pregna ncy 01/08/21 01/08/21 10:00 History tablet acetaminophen 500 mg tablet 1,000 mg (2 x 500 mg) PO Q 6H PRN 01/13/21 Unknown Rx PRN Pain 1-10 Or Fever #0 tabs aspirin 81 mg capsule 81 mg PO DAILY 12/04/24 Unkn own History nitrofurantoin 100 mg PO DAILY UTI 12/04/24 Unknown History monohydrate/macrocrystals 100 mg capsule (Macrobid) Allergy/AdvReac Type Severity Reaction Status Date / Time No Known Allergies Allergy Verified 12/04/24 11:01 Surgical History H/O wisdom tooth extraction Social History Smoking Status: Former smoker History Elective abortions Hx Para 0 Spontaneous abortions Hx # Term Pregnancies Ectopic pregnancies Hx # Pregnancies Multiple births # of living children Physical Exam Const alert and no apparent distress General Appearance: cooperative Orientation / Consciousness: awake HEENT normocephalic GI GI Narrative: abd soft, gravid, non tender, fundus appropriate for gestational age Narrative: CVA tenderness right side Extremity Extremity Narrative: trace edema, symmetrical NST FHR Rate Baby A Baseline: 140 Variability:: Moderate Accelerations:: 15 x 15 Decelerations:: None NST Reactive:: Yes Uterine Activity:: irreg ctxs Assessment & Plan (1) Hydronephrosis: QUALIFIERS: Hydronephrosis type: with ureteropelvic junction obstruction Qualified Code(s): Q62.11 - Congenital occlusion of ureteropelvic junction COMMENT: plan stent tomorrow w/ urology then d/c home (2) Ureteropelvic junction calculus: COMMENT: see urology consult, NPO after midnight in anticipation of surgery. Increase IVF to `100cc/hr when NPO (3) 34 weeks gestation of : (4) Recurrent UTI (urinary tract infection) complicating : COMMENT: Ecoli UTI in . Macrobid 100mg PO once daily for prophylaxis. Will likely change antibiotics when d/rosemary home (5) Pyelonephritis affecting : COMMENT: Cefepime 1gr IVPB. Will transition to oral Bactrim. CT showed stone and hydronephrosis. Consult w/ Dr. Elena-plan for surgery today With stone and plan for surgery and suspected pylo- culture pending will change status to full admission. (6) High risk multigravida in third trimester: COMMENT: NSt daily, monitor for signs/symptoms of labor. Encouraged to push fluids, ambulate frequently. SCDs for VTE prophylaxis 12/05/24 1357 <Electronically signed by Adina elizabeth MD> Date _ Adina Krueger MD Cosigner Signature (if applicable): Date CC: Dr. Chiki Gonzales MD; Dr. Adina Krueger MD ~ Signed ADDENDUM by Dr. Adina Krueger MD on 12/05/24 at 1359 Addendum reveiwed GRADY scoring as likely will require narcotics prn for pain control HPI addendum- denies vb/lof/ctxs. Good FM. Nausea controlled, some decreased appetite. No BM today but normal one yesterday. Denies chills or dysuria or hematuria 12/05/24 1359 <Electronically signed by Adina elizabeth MD> Date _ Adina Krueger MD cc: Dr. Chiki Gonzales MD; Dr. Adina Krueger MD ~* Signed [facility] Work Phone: 1(306) 779-422608-31-2025 History and physical note [facility] Medical Records Department [address] [place] [address] OB Triage Physician Note 12/05/24 1333 MR#: [id number] Acct: [id number] Name: HILLARY FRAIRE Rep #:[id number] : 1990 34 From: Adina Krueger MD PCP: Dr. Chiki Gonzales MD Status:ADM I N Y Location: [place] [address] HPI - General General Date of Admission: 12/04/24 Date of Service: 12/05/24 Chief Complaint: kidney stone, flank pain, recurrent UTI at 34 weeks HPI Narrative This is her daily progress note. HILLARY FRAIRE, is a 34 F who presents @ 34+ weeks w/ c/o flank pain. Dx w/ UTI, likely pylo and antibiotics started based on sensitivities from last urine culture. CT ordered and kidney stone noted. Patient initially placed under observation for suspected pylo. Maternal Data Information Final BRITTANY: 01/14/25 Gestational age: 34 2/7 [facility] Medical History (Updated 12/05/24 @ 13:[address] Adina Krueger MD) Hydronephrosis Ureteropelvic junction calculus SROM (spontaneous rupture of membranes) Anxiety Home Medications ?Medication ?Instructions ?Recorded ?Last Taken ?Type htqltdgp-bai-Ms-FA 1 mg 1 tab PO DAILY pregna ncy 01/08/21 01/08/21 10:00 History tablet acetaminophen 500 mg tablet 1,000 mg (2 x 500 mg) PO Q 6H PRN 01/13/21 Unknown Rx PRN Pain 1-10 Or Fever #0 tabs aspirin 81 mg capsule 81 mg PO DAILY 12/04/24 Unkn own History nitrofurantoin 100 mg PO DAILY UTI 12/04/24 Unknown History monohydrate/macrocrystals 100 mg capsule (Macrobid) Allergy/AdvReac Type Severity Reaction Status Date / Time No Known Allergies Allergy Verified 12/04/24 11:01 Surgical History H/O wisdom tooth extraction Social History Smoking Status: Former smoker History Elective abortions Hx Para 0 Spontaneous abortions Hx # Term Pregnancies Ectopic pregnancies Hx # Pregnancies Multiple births # of living children Physical Exam Const alert and no apparent distress General Appearance: cooperative Orientation / Consciousness: awake HEENT normocephalic GI GI Narrative: abd soft, gravid, non tender, fundus appropriate for gestational age Narrative: CVA tenderness right side Extremity Extremity Narrative: trace edema, symmetrical NST FHR Rate Baby A Baseline: 140 Variability:: Moderate Accelerations:: 15 x 15 Decelerations:: None NST Reactive:: Yes Uterine Activity:: irreg ctxs Assessment & Plan (1) Hydronephrosis: QUALIFIERS: Hydronephrosis type: with ureteropelvic junction obstruction Qualified Code(s): Q62.11 - Congenital occlusion of ureteropelvic junction COMMENT: plan stent tomorrow w/ urology then d/c home (2) Ureteropelvic junction calculus: COMMENT: see urology consult, NPO after midnight in anticipation of surgery. Increase IVF to `100cc/hr when NPO (3) 34 weeks gestation of : (4) Recurrent UTI (urinary tract infection) complicating : COMMENT: Ecoli UTI in . Macrobid 100mg PO once daily for prophylaxis. Will likely change antibiotics when d/rosemary home (5) Pyelonephritis affecting : COMMENT: Cefepime 1gr IVPB. Will transition to oral Bactrim. CT showed stone and hydronephrosis. Consult w/ Dr. Elena-plan for surgery today With stone and plan for surgery and suspected pylo- culture pending will change status to full admission. (6) High risk multigravida in third trimester: COMMENT: NSt daily, monitor for signs/symptoms of labor. Encouraged to push fluids, ambulate frequently. SCDs for VTE prophylaxis 12/05/24 1357 ll MD> Date _ Adina Krueger MD Cosigner Signature (if applicable): Date CC: Dr. Chiki Gonzales MD; Dr. Adina Krueger MD ~ Signed ADDENDUM by Dr. Adina Krueger MD on 12/05/24 at 1359 Addendum reveiwed GRADY scoring as likely will require narcotics prn for pain control HPI addendum- denies vb/lof/ctxs. Good FM. Nausea controlled, some decreased appetite. No BM today but normal one yesterday. Denies chills or dysuria or hematuria 12/05/24 1359 ll MD> Date _ Adina Krueger MD cc: Dr. Chiki Gonzales MD; Dr. Adina Krueger MD ~* Signed [facility]08-31-2025 Consult note [facility] Note Date/Time December 05, 2024 9: 57am [facility] Medical Records Department [address] [place] [id number] Consultation 12/05/24 0942 MR#: [id number] Acct: [id number] Name: HILLARY FRAIRE Rep #:[id number] : 1990 34 From: Latesha Geiger PCP: Dr. Chiki Gonzales MD Status:ADM I N Location: [place] [address] Assessment & Plan Assessment/Plan (1) Ureteropelvic junction calculus: (2) Hydronephrosis: (3) Recurrent UTI (urinary tract infection) complicating : PLAN: Plan After discussing all of the risks and options for intervention, the patient family and I have agreed to proceed with cystoscopy and left ureteral stent insertion. We discussed the risks of stent migration and calcification in addition to need for pain management and continued infection Continue antibiotics and await urine culture Will need to be discharged home on nightly antibiotics until after baby is born We will plan for stone intervention as an outpatient in approximately 7 to 8 weeks Aggressive fluid hydration HPI Consult Data Date of Consult: 12/05/24 HPI Narrative Reason for Consultation: Left ureteropelvic junction stone HPI Narrative: HILLARY FRAIRE, is a 34 F who developed acute onset left flank pain with nausea and vomiting yesterday morning. She has a history of kidney stones having passed 1 approximately 10 years ago. She has never had surgical intervention for stones. Throughout this she has had bacteriuria but no symptoms of urinary tract infection. She denies at this time dysuria, hematuria, incontinence or other lower urinary tract symptoms. She does report that her urine has been very concentrated recently. This morning she is feeling better having been given intravenous pain control. [facility] Medical History (Updated 12/05/24 @ 09:[address] Latesha Elena MD) Hydronephrosis Ureteropelvic junction calculus SROM (spontaneous rupture of membranes) Anxiety Home Medications ?Medication ?Instructions ?Recorded ?Last Taken ?Type paybgfzv-hja-Fy-FA 1 mg 1 tab PO DAILY pregna ncy 01/08/21 01/08/21 10:00 History tablet acetaminophen 500 mg tablet 1,000 mg (2 x 500 mg) PO Q 6H PRN 01/13/21 Unknown Rx PRN Pain 1-10 Or Fever #0 tabs aspirin 81 mg capsule 81 mg PO DAILY 12/04/24 Unkn own History nitrofurantoin 100 mg PO DAILY UTI 12/04/24 Unknown History monohydrate/macrocrystals 100 mg capsule (Macrobid) Allergy/AdvReac Type Severity Reaction Status Date / Time No Known Allergies Allergy Verified 12/04/24 11:01 Surgical History H/O wisdom tooth extraction Social History Smoking Status: Former smoker ROS Constitutional Constitutional: Reports systems reviewed and no addt'l complaints, except as documented; Denies chills or fever(s) Eyes Eyes: Reports systems reviewed and no addt'l complaints, except as documented ENT HEENT: Reports systems reviewed and no addt'l complaints, except as documented Cardiovascular Cardiovascular: Denies chest pain or dizziness Respiratory/Chest Respiratory/Chest: Denies cough, dyspnea, dyspnea on exertion, shortness of breath at rest or shortness of breath with exertion Gastrointestinal Gastrointestinal: Reports abdominal pain, nausea, vomiting and other Details: left lower groin pain that is wrapping around to left side of back/flank ; Denies diarrhea Genitourinary Genitourinary: Reports abdominal discomfort; Denies dysuria, hematuria, urinary frequency or urinary incontinence Musculoskeletal Musculoskeletal: Denies limited range of motion Integumentary Integumentary: Reports systems reviewed and no addt'l complaints, except as documented Neurologic Neurologic: Reports systems reviewed and no addt'l complaints, except as documented Psychiatric Psychiatric: Reports systems reviewed and no addt'l complaints, except as documented Endocrine Endocrinology: Reports systems reviewed and no addt'l complaints, except as documented Hematologic/Lymphatic Hematologic/Lymphatic: Reports systems reviewed and no addt'l complaints, exceptas documented Allergic/Immunologic Allergic/Immunologic: Reports systems reviewed and no addt'l complaints, except as documented Physical Exam Const alert, oriented x3 and no apparent distress Constitutional Narrative: Visibly in pain/discomfort, unable to sit still in the bed General Appearance: cooperative Orientation / Consciousness: awake, oriented to person, oriented to place and oriented to time Exam Limitations: no limitations HEENT normocephalic Head and Scalp: normal to inspection, normocephalic and atraumatic Face and Sinus: normal facial exam Eyes General Eye: normal appearance of both eyes Neck General: normal visual inspection and trachea midline Chest inspection of chest normal Chest: symmetrical chest wall rise Resp normal respiratory effort and normal air movement Cardio regular rate GI normal to inspection, nondistended, normoactive bowel sounds and non-tender Palpation: other Other Details: soft, non tender. Gravid. Bladder / Kidney Exam: CVA tenderness left Back/Spine General Back: CVA tenderness left Extremity normal to inspection Skin no rashes or lesions noted, no jaundice, no petechiae and no mottling Neuro oriented x3, CN's II-XII intact bilaterally and moves all extremities Sensorium / Orientation: awake, alert and oriented to person Motor Exam: clonus absent Deep Tendon Reflexes: Rt Patellar (L4): 2+ and Lt Patellar (L4): 2+ Psych mental status grossly normal, thought process normal, cooperative and affect normal Lab / Micro Data 12/04/24 11:30 12/04/24 15:54 Labs: Laboratory Results - last 24 hr 12/04/24 11:20: Urine Color Yellow, Urine Clarity Sl. Cloudy, Urine pH 7.0, Ur Specific Mcdavid 1.015, Urine Protein 15 H, Urine Glucose (UA) Normal, Urine Ketones Negative, Urine Occult Blood 25 H, Urine Nitrite Negative, Urine Bilirubin Negative, Urine Urobilinogen 1 H, Ur Leukocyte Esterase 25 H, Urine RBC 0-5 SEEN, Urine WBC 5-10 SEEN, Ur Squamous Epith Cells 0-5 SEEN, Urine Bacteria 0 SEEN, Urine Mucus 0 SEEN 12/04/24 11:30: WBC 13.8 H, RBC 3.57 L, Hgb 11.0 L, Hct 32.2 L, MCV 90.2, MCH 30.8, MCHC 34.2, RDW Std Deviation 41.8, RDW Coeff of Anabela 12.7, Plt Count 185, MPV 11.8, Immature Gran % (Auto) 0.900, Neut % (Auto) 81.3 H, Lymph % (Auto) 12.0 L, Sargent % (Auto) 5.4, Eos % (Auto) 0.1, Baso % (Auto) 0.3, Absolute Neuts (auto) 11.2 H, Absolute Lymphs (auto) 1.65, Nucleated RBC % 0 12/04/24 15:54: Creatinine 1.00, Estim Creat Clear Calc 118.54, Est GFR (MDRD) Non-Af 76 Imaging Radiology Impression Abdomen/Pelvis CT 12/04/24 12:51 IMPRESSION: Obstructing stone left UPJ measuring 16 x 11 mm. Left-sided hydronephrosis. 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 Chiki Gonzales MD~ Signed ADDENDUM by Dr. Latesha Elena MD on 12/05/24 at 0957 Addendum The procedure, recovery and expectations were explained. The risks, benefits andalternatives were discussed, including but not limited to, the risks of anesthesia, bleeding, infection, injury, pain and the need for further intervention. We have discussed the risk of exposure to and/or potential harm posed by the COVID-19 virus with having a surgery/procedure at this time. A joint decision was made at this time to proceed with the scheduled surgery/procedure as indicated on the consent form. 12/05/24 0957<Electronically signed by Latesha Elena MD> Cosigner Signature (if applicable): cc: CARLOS Moreno; Dr. Chiki Gonzales MD ~* Signed [facility] Work Phone: 1(440) [phone] Consult note [facility] Medical Records Department [address] [place] [address] Consultation 12/05/2442 MR#: [id number] Acct: [id number] Name: HILLARY FRAIRE Rep #:[id number] : 1990 34 From: Latesha Geiger PCP: Dr. Chiki Gonzales MD Status:ADM I N Location: [place] [address] Assessment & Plan Assessment/Plan (1) Ureteropelvic junction calculus: (2) Hydronephrosis: (3) Recurrent UTI (urinary tract infection) complicating : PLAN: Plan After discussing all of the risks and options for intervention, the patient family and I have agreed to proceed with cystoscopy and left ureteral stent insertion. We discussed the risks of stent migration and calcification in addition to need for pain managementand continued infection Continue antibiotics and await urine culture Will need to be discharged home on nightly antibiotics until after baby is born We will plan for stone intervention as an outpatient in approximately 7 to 8 weeks Aggressive fluid hydration HPI Consult Data Date of Consult: 12/05/24 HPI Narrative Reason for Consultation: Left ureteropelvic junction stone HPI Narrative: HILLARY FRAIRE, is a 34 F who developed acute onset left flank pain with nausea and vomiting yesterday morning. She has a history of kidney stones having passed 1 approximately 10 years ago. She has never had surgical intervention for stones. Throughout this she has had bacteriuria but nosymptoms of urinary tract infection. She denies at this time dysuria, hematuria, incontinence or other lower urinary tract symptoms. She does report that her urine has been very concentrated recently. This morning she is feeling better having been given intravenous pain control. [facility] Medical History (Updated 12/05/24 @ 09:[address] Latesha Elena MD) Hydronephrosis Ureteropelvic junction calculus SROM (spontaneous rupture of membranes) Anxiety Home Medications ?Medication ?Instructions ?Recorded ?Last Taken ?Type grxfviux-anh-Pf-FA 1 mg 1 tab PO DAILY pregna ncy 01/08/21 01/08/21 10:00 History tablet acetaminophen 500 mg tablet 1,000 mg (2 x 500 mg) PO Q 6H PRN 01/13/21 Unknown Rx PRN Pain 1-10 Or Fever #0 tabs aspirin 81 mg capsule 81 mg PO DAILY 12/04/24 Unkn own History nitrofurantoin 100 mg PO DAILY UTI 12/04/24 Unknown History monohydrate/macrocrystals 100 mg capsule (Macrobid) Allergy/AdvReac Type Severity Reaction Status Date / Time No Known Allergies Allergy Verified 12/04/24 11:01 Surgical History H/O wisdom tooth extraction Social History Smoking Status: Former smoker ROS Constitutional Constitutional: Reports systems reviewed and no addt'l complaints, except as documented; Denies chills or fever(s) Eyes Eyes: Reports systems reviewed and no addt'l complaints, except as documented ENT HEENT: Reports systems reviewed and no addt'l complaints, except as documented Cardiovascular Cardiovascular: Denies chest pain or dizziness Respiratory/Chest Respiratory/Chest: Denies cough, dyspnea, dyspnea on exertion, shortness of breath at rest or shortness of breath with exertion Gastrointestinal Gastrointestinal: Reports abdominal pain, nausea, vomiting and other Details: left lower groin painthat is wrapping around to left side of back/flank ; Denies diarrhea Genitourinary Genitourinary: Reports abdominal discomfort; Denies dysuria, hematuria, urinary frequency or urinary incontinence Musculoskeletal Musculoskeletal: Denies limited range of motion Integumentary Integumentary: Reports systems reviewed and no addt'l complaints, except as documented Neurologic Neurologic: Reports systems reviewed and no addt'l complaints, except as documented Psychiatric Psychiatric: Reports systems reviewed and no addt'l complaints, except as documented Endocrine Endocrinology: Reports systems reviewed and no addt'l complaints, except as documented Hematologic/Lymphatic Hematologic/Lymphatic: Reports systems reviewed and no addt'l complaints, exceptas documented Allergic/Immunologic Allergic/Immunologic: Reports systems reviewed and no addt'l complaints, except as documented Physical Exam Const alert, oriented x3 and no apparent distress Constitutional Narrative: Visibly in pain/discomfort, unable to sit still in the bed General Appearance: cooperative Orientation / Consciousness: awake, oriented to person, oriented to place and oriented to time Exam Limitations: no limitations HEENT normocephalic Head and Scalp: normal to inspection, normocephalic and atraumatic Face and Sinus: normal facial exam Eyes General Eye: normal appearance of both eyes Neck General: normal visual inspection and trachea midline Chest inspection of chest normal Chest: symmetrical chest wall rise Resp normal respiratory effort and normal air movement Cardio regular rate GI normal to inspection, nondistended, normoactive bowel sounds and non-tender Palpation: other Other Details: soft, non tender. Gravid. Bladder / Kidney Exam: CVA tenderness left Back/Spine General Back: CVA tenderness left Extremity normal to inspection Skin no rashes or lesions noted, no jaundice, no petechiae and no mottling Neuro oriented x3, CN's II-XII intact bilaterally and moves all extremities Sensorium / Orientation: awake, alert and oriented to person Motor Exam: clonus absent Deep Tendon Reflexes: Rt Patellar (L4): 2+ and Lt Patellar (L4): 2+ Psych mental status grossly normal, thought process normal, cooperative and affect normal Lab / Micro Data 12/04/24 11:30 12/04/24 15:54 Labs: Laboratory Results - last 24 hr 12/04/24 11:20: Urine Color Yellow, Urine Clarity Sl. Cloudy, Urine pH 7.0, Ur Specific Mcdavid 1.015, Urine Protein 15 H, Urine Glucose (UA) Normal, Urine Ketones Negative, Urine Occult Blood 25 H, Urine Nitrite Negative, Urine Bilirubin Negative, Urine Urobilinogen 1 H, Ur Leukocyte Esterase 25 H, Urine RBC 0-5 SEEN, Urine WBC 5-10 SEEN, Ur Squamous Epith Cells 0-5 SEEN, Urine Bacteria 0 SEEN, Urine Mucus 0 SEEN 12/04/24 11:30: WBC 13.8 H, RBC 3.57 L, Hgb 11.0 L, Hct 32.2 L, MCV 90.2, MCH 30.8, MCHC 34.2, RDW Std Deviation 41.8, RDW Coeff of Anabela 12.7, Plt Count 185, MPV 11.8, Immature Gran % (Auto) 0.900, Neut % (Auto) 81.3 H, Lymph % (Auto) 12.0 L, Sargent % (Auto) 5.4, Eos % (Auto) 0.1, Baso % (Auto) 0.3, Absolute Neuts (auto) 11.2 H, Absolute Lymphs (auto) 1.65, Nucleated RBC % 0 12/04/24 15:54: Creatinine 1.00, Estim Creat Clear Calc 118.54, Est GFR (MDRD) Non-Af 76 Imaging Radiology Impression Abdomen/Pelvis CT 12/04/24 12:51 IMPRESSION: Obstructing stone left UPJ measuring 16 x 11 mm. Left-sided hydronephrosis. Reading [facility] Charges/Coding Urology Urology: Attention Carole 12/05/24956 Cosigner Signature (if applicable): CC: CARLOS Moreno; Dr. Chiki Gonzales MD~ Signed ADDENDUM by Dr. Latesha Elena MD on 12/05/24 at 0957 Addendum The procedure, recovery and expectations were explained. The risks, benefits andalternatives were discussed, including but not limited to, the risks of anesthesia, bleeding, infection, injury, pain and the need for further intervention. We have discussed the risk of exposure to and/or potential harm posed by the COVID-19 virus with having a surgery/procedure at this time. A joint decision was made at this time to proceed with the scheduled surgery/procedure as indicated on the consent form. 12/05/24956 Cosigner Signature (if applicable): cc: CARLOS Moreno; Dr. Chiki Gonzales MD ~* Signed [facility]08-31-2025 [facility] Medical Records Department [address] [place] [address] Consultation 12/05/24941 MR#: [id number] Acct: [id number] Name: HILLARY FRAIRE Rep #: [id number] : 1990 34 From: Latesha Elena MD PCP: Dr. Chiki Gonzales MD Status:ADM IN [id number] Plan Assessment/Plan (1) Ureteropelvic junction calculus: (2) Hydronephrosis: (3) Recurrent UTI (urinary tract infection) complicating : PLAN: Plan After discussing all of the risks and options for intervention, the patient family and I have agreed to proceed with cystoscopy and left ureteral stent insertion. We discussed the risks of stent migration and calcification in addition to need for pain management and continued infection Continue antibiotics and await urine culture Will need to be discharged home on nightly antibiotics until after baby is born We will plan for stone intervention as an outpatient in approximately 7 to 8 weeks Aggressive fluid hydration HPI Consult Data Date of Consult: 12/05/24 HPI Narrative Reason for Consultation: Left ureteropelvic junction stone HPI Narrative: HILLARY FRAIRE, is a 34 F who developed acute onset left flank pain with nausea and vomiting yesterday morning. She has a history of kidney stones having passed 1 approximately 10 years ago. She has never had surgical intervention for stones. Throughout this she has had bacteriuria but no symptoms of urinary tract infection. She denies at this time dysuria, hematuria, incontinence or other lower urinary tract symptoms. She does report that her urine has been very concentrated recently. This morning she is feeling better having been given intravenous pain control. [facility] Medical History (Updated 12/05/24 @ 09:[address] Latesha Elena MD) Hydronephrosis Ureteropelvic junction calculus SROM (spontaneous rupture of membranes) Anxiety Home Medications ???Medication ???Instructions ???Recorded ???Last Taken ???Type gahocuii-vnn-Cy-FA 1 mg 1 tab PO DAILY 01/08/21 01/08/21 10:00 History tablet acetaminophen 500 mg tablet 1,000 mg (2 x 500 mg) PO Q6H PRN 1 Unknown Rx PRN Pain 1-10 Or Fever #0 tabs aspirin 81 mg capsule 81 mg PO DAILY 12/04/24 Unknown Hi story nitrofurantoin 100 mg PO DAILY UTI 12/04/24 Unkno wn History monohydrate/macrocrystals 100 mg capsule (Macrobid) Allergy/AdvReac Type Severity Reaction Status Date / Time No Known Allergies Allergy Verified 12/04/24 11:01 Surgical History H/O wisdom tooth extraction Social History Smoking Status: Former smoker ROS Constitutional Constitutional: Reports systems reviewed and no addt'l complaints, except as documented; Denies chills or fever(s) Eyes Eyes: Reports systems reviewed and no addt'l complaints, except as documented ENT HEENT: Reports systems reviewed and no addt'l complaints, except as documented Cardiovascular Cardiovascular: Denies chest pain or dizziness Respiratory/Chest Respiratory/Chest: Denies cough, dyspnea, dyspnea on exertion, shortness of breath at rest or shortness of breath with exertion Gastrointestinal Gastrointestinal: Reports abdominal pain, nausea, vomiting and other Details: left lower groin pain that is wrapping around to left side of back/flank ; Denies diarrhea Genitourinary Genitourinary: Reports abdominal discomfort; Denies dysuria, hematuria, urinary frequency or urinary incontinence Musculoskeletal Musculoskeletal: Denies limited range of motion Integumentary Integumentary: Reports systems reviewed and no addt'l complaints, except as documented Neurologic Neurologic: Reports systems reviewed and no addt'l complaints, except as documented Psychiatric Psychiatric: Reports systems reviewed and no addt'l complaints, except as documented Endocrine Endocrinology: Reports systems reviewed and no addt'l complaints, except as documented Hematologic/Lymphatic Hematologic/Lymphatic: Reports systems reviewed and no addt'l complaints, except as documented Allergic/Immunologic Allergic/Immunologic: Reports systems reviewed and no addt'l complaints, except as documented Physical Exam Const alert, oriented x3 and no apparent distress Constitutional Narrative: Visibly in pain/discomfort, unable to sit still in the bed General Appearance: cooperative Orientation / Consciousness: awake, oriented to person, oriented to place and oriented to time Exam Limitations: no limitations HEENT normocephalic Head and Scalp: normal to inspection, normocephalic and atraumatic Face and Sinus: normal facial exam Eyes General Eye: normal appearance of both eyes Neck General: normal visual inspection and trachea (more content not included)... [facility]08-30-2025 Evaluation note* Diagnosis Onset Date Resolution Status Admit Date 34 weeks gestation of acut e December 04, 2024 5:00pm Flank pain, acute acute December 04, 2024 5:00pm High risk multigravida in th ird trimester acute December 04 5:00pm Hydronephrosis acute November 5:00pm Pyelonephritis affecting acute December 04 5:00pm Recurrent UTI (urinary tract infection) complicating acute December 04 5:00pm Ureteropelvic junction calculus acut e December 04, 2024 5:00pm Chronic hypertension affecti ng chronic December 04 5:00pm [facility] Work Phone: 1(641) 582-965108-30-2025 History and physical note Author Sheyla Moreno [facility] Note Date/Time December 04, 2024 12 :48pm [facility] Medical Records Department [address] [place] [address] OB Triage Physician Note 12/04/24 1131 MR#: [id number] Acct: [id number] Name: HILLARY FRAIRE Rep #:[id number] : 1990 34 From: Sheyla ZAVALETA PCP: Dr. Cihki Gonzales MD Status:[facility] Location: [place] [address] HPI - General General Date of Service: 12/04/24 HPI Narrative HILLARY FRAIRE, is a 34 F who presents who presents at 34 weeks with BRITTANY: 01/14/25 with complaints of leftsided back pain wrapping around from left lower abdomen. Started last night, did not get any sleep and difficulty sitting still due to pain. Denies any vaginal bleeding, fluid leakage, pain with urination, bleeding with urination, or contractions. Does not feel like labor and pain in left groin wrapping around to back. with persistent UTI and currently taking Macrobid 100mg PO once daily for prophylaxis. Maternal Data Information Final BRITTANY: 01/14/25 [facility] Medical History (Updated 12/04/24 @ 12:46 by Sheyla Moreno CNM) SROM (spontaneous rupture of membranes) Anxiety Home Medications ?Medication ?Instructions ?Recorded ?Last Taken ?Type eritjnru-eam-Us-FA 1 mg 1 tab PO DAILY pregna ncy 01/08/21 01/08/21 10:00 History tablet acetaminophen 500 mg tablet 1,000 mg (2 x 500 mg) PO Q 6H PRN 01/13/21 Unknown Rx PRN Pain 1-10 Or Fever #0 tabs aspirin 81 mg capsule 81 mg PO DAILY 12/04/24 Unkn own History nitrofurantoin 100 mg PO DAILY UTI 12/04/24 Unknown History monohydrate/macrocrystals 100 mg capsule (Macrobid) Allergy/AdvReac Type Severity Reaction Status Date / Time No Known Allergies Allergy Verified 12/04/24 11:01 Surgical History (Updated 01/09/21 @ 00:26 by Madison Hines) H/O wisdom tooth extraction Social History Smoking Status: Former smoker History Elective abortions Hx Para 0 Spontaneous abortions Hx # Term Pregnancies Ectopic pregnancies Hx # Pregnancies Multiple births # of living children ROS Constitutional Constitutional: Reports systems reviewed and no addt'l complaints, except as documented; Denies headache(s) Eyes Eyes: Denies acute decrease in peripheral vision, blurry vision or change in vision ENT HEENT: Reports systems reviewed and no addt'l complaints, except as documented Cardiovascular Cardiovascular: Denies chest pain or dizziness Respiratory/Chest Respiratory/Chest: Denies cough, dyspnea, dyspnea on exertion, shortness of breath at rest or shortness of breath with exertion Gastrointestinal Gastrointestinal: Reports abdominal pain, nausea, vomiting and other Details: left lower groin pain that is wrapping around to left side of back/flank ; Denies diarrhea Genitourinary Genitourinary: Denies abdominal discomfort or movement Musculoskeletal Musculoskeletal: Denies limited range of motion Integumentary Integumentary: Reports systems reviewed and no addt'l complaints, except as documented Neurologic Neurologic: Reports systems reviewed and no addt'l complaints, except as documented Psychiatric Psychiatric: Reports systems reviewed and no addt'l complaints, except as documented Endocrine Endocrinology: Reports systems reviewed and no addt'l complaints, except as documented Hematologic/Lymphatic Hematologic/Lymphatic: Reports systems reviewed and no addt'l complaints, exceptas documented Allergic/Immunologic Allergic/Immunologic: Reports systems reviewed and no addt'l complaints, except as documented Physical Exam Const alert and oriented x3 Constitutional Narrative: Visibly in pain/discomfort, unable to sit still in the bed General Appearance: cooperative Orientation / Consciousness: awake, oriented to person, oriented to place and oriented to time Exam Limitations: no limitations HEENT normocephalic Head and Scalp: normal to inspection, normocephalic and atraumatic Face and Sinus: normal facial exam Eyes General Eye: normal appearance of both eyes Neck full ROM Chest Chest: symmetrical chest wall rise Resp normal respiratory effort and normal air movement Auscultation: clear to auscultation bilaterally Cardio regular rate, regular rhythm, S1 normal heart sound, S2 normal heart sound, no murmurs, no rub, no gallops and no clicks GI normal to inspection, nondistended, normoactive bowel sounds and non-tender Auscultation: normoactive bowel sounds Palpation: other Other Details: soft, non tender. appearance of the vagina normal Bladder / Kidney Exam: CVA tenderness left Back/Spine normal ROM Extremity normal to inspection and full ROM Skin no rashes or lesions noted Neuro oriented x3, CN's II-XII intact bilaterally and moves all extremities Sensorium / Orientation: awake, alert and oriented to person Motor Exam: clonus absent Deep Tendon Reflexes: Rt Patellar (L4): 2+ and Lt Patellar (L4): 2+ NST FHR Rate Baby B Baseline: 140 Variability:: Moderate Accelerations:: 15 x 15 Decelerations:: None NST Reactive:: Yes Uterine Activity:: None Assessment & Plan (1) Flank pain, acute: (2) Pyelonephritis affecting : COMMENT: Cefepime 1gr IVPB. Will transition to oral Bactrim. CT scan without contrast ordered. (3) Recurrent UTI (urinary tract infection) complicating : COMMENT: Ecoli UTI in . Macrobid 100mg PO once daily for prophylaxis (4) 34 weeks gestation of : (5) Chronic hypertension affecting : COMMENT: CHTN, no medications PLAN: Plan 1) NST reactive 2) CBC, UA, urine culture, CT scan without contrast 3) 1 Liter LR 4) Last urine culture on 11/09 susceptible to Cefepime, 1 gram IV x1. Will follow up after treatment but likely Bactrim for further prophylaxis 5) [facility] and notified of patient status above assessment and plan of care. 12/04/24 1248 <Electronically signed by Sheyla Moreno CNM> Date _ Sheyla Moreno CNM Cosigner Signature (if applicable): Date CC: CARLOS Moreno; Dr. Chiki Gonzales MD ~ Signed [facility] Work Phone: 1(677) 800-459608-30-2025 Radiology Diagnostic study note [facility] Imaging Services [address] [place] [address] [id number] Abdomen/Pelvis without Cont MR#: [id number] Acct: [id number] Name: HILLARY FRAIRE Rep #: [id number] : 1990 F 34 From: Kat Paige MD PCP: Dr. Chiki Gonzales MD Status: REG C LUANN Study:Abdomen/Pelvis without Cont Date of Exa m: 12/04/24 Exam# [id number] Ordering Dr: Ruben Moreno CNM PROCEDURE: ABDOMEN/PELVIS WITHOUT CONT 12/04/2024 REASON FOR EXAM: FLANK PAIN TECHNIQUE: Procedure Code: CTABDPEL Modality: CT Procedure: ABDOMEN/PELVIS WITHOUT CONT Noncontrast technique limits evaluation of the abdominal and pelvic viscera. Coronal and Sagittal reconstruction series were provided. One or more dose reduction techniques were used (e.g., Automated exposure control, adjustment of the mA and/or kV according to patient size, use of iterative reconstruction technique). RADIATION DOSE SUMMARY: CTDlvol: 22 mGy DLP: 1320 mGycm FINDINGS: Normal appearance of the liver and spleen without contrast. Nonobstructing punctate renal calculus is present. There is a stone at the left UPJ which measures 16 by 11 mm. The patient is . The position is cephalic. There is no free-fluid. There is no free air. There is no bowel obstruction. The placentais anterior. CT/Abdomen/Pelvis without Cont IMPRESSION: Obstructing stone left UPJ measuring 16 x 11 mm. Left-sided hydronephrosis. Reading [facility] CC: [facility] Sheyla Moreno; Dr. Chiki Gonzales MD ~ Rubber Down: Signed [facility]08-30-2025 History and physical note [facility] Medical Records Department [address] [place] [address] OB Triage Physician Note 12/04/24 1131 MR#: [id number] Acct: [id number] Name: HILLARY FRAIRE Rep #:[id number] : 1990 34 From: Sheyla ZAVALETA PCP: Dr. Chiki Gonzales MD Status:[facility] Location: [place] [id number] HPI - General General Date of Service: 12/04/24 HPI Narrative HILLARY FRAIRE, is a 34 F who presents who presents at 34 weeks with BRITTANY: 01/14/25 with complaints of leftsided back pain wrapping around from left lower abdomen. Started last night, did not get any sleep and difficulty sitting still due to pain. Denies any vaginal bleeding, fluid leakage, pain with urination, bleeding with urination, or contractions. Does not feel like labor and pain in left groin wrapping around to back. with persistent UTI and currently taking Macrobid 100mg PO once daily for prophylaxis. Maternal Data Information Final BRITTANY: 01/14/25 [facility] Medical History (Updated 12/04/24 @ 12:46 by Sheyla Moreno CNM) SROM (spontaneous rupture of membranes) Anxiety Home Medications ?Medication ?Instructions ?Recorded ?Last Taken ?Type acxexhqy-orm-Hx-FA 1 mg 1 tab PO DAILY pregna ncy 01/08/21 01/08/21 10:00 History tablet acetaminophen 500 mg tablet 1,000 mg (2 x 500 mg) PO Q 6H PRN 01/13/21 Unknown Rx PRN Pain 1-10 Or Fever #0 tabs aspirin 81 mg capsule 81 mg PO DAILY 12/04/24 Unkn own History nitrofurantoin 100 mg PO DAILY UTI 12/04/24 Unknown History monohydrate/macrocrystals 100 mg capsule (Macrobid) Allergy/AdvReac Type Severity Reaction Status Date / Time No Known Allergies Allergy Verified 12/04/24 11:01 Surgical History (Updated 01/09/21 @ 00:26 by Madison Hines) H/O wisdom tooth extraction Social History Smoking Status: Former smoker History Elective abortions Hx Para 0 Spontaneous abortions Hx # Term Pregnancies Ectopic pregnancies Hx # Pregnancies Multiple births # of living children ROS Constitutional Constitutional: Reports systems reviewed and no addt'l complaints, except as documented; Denies headache(s) Eyes Eyes: Denies acute decrease in peripheral vision, blurry vision or change in vision ENT HEENT: Reports systems reviewed and no addt'l complaints, except as documented Cardiovascular Cardiovascular: Denies chest pain or dizziness Respiratory/Chest Respiratory/Chest: Denies cough, dyspnea, dyspnea on exertion, shortness of breath at rest or shortness of breath with exertion Gastrointestinal Gastrointestinal: Reports abdominal pain, nausea, vomiting and other Details: left lower groin painthat is wrapping around to left side of back/flank ; Denies diarrhea Genitourinary Genitourinary: Denies abdominal discomfort or movement Musculoskeletal Musculoskeletal: Denies limited range of motion Integumentary Integumentary: Reports systems reviewed and no addt'l complaints, except as documented Neurologic Neurologic: Reports systems reviewed and no addt'l complaints, except as documented Psychiatric Psychiatric: Reports systems reviewed and no addt'l complaints, except as documented Endocrine Endocrinology: Reports systems reviewed and no addt'l complaints, except as documented Hematologic/Lymphatic Hematologic/Lymphatic: Reports systems reviewed and no addt'l complaints, exceptas documented Allergic/Immunologic Allergic/Immunologic: Reports systems reviewed and no addt'l complaints, except as documented Physical Exam Const alert and oriented x3 Constitutional Narrative: Visibly in pain/discomfort, unable to sit still in the bed General Appearance: cooperative Orientation / Consciousness: awake, oriented to person, oriented to place and oriented to time Exam Limitations: no limitations HEENT normocephalic Head and Scalp: normal to inspection, normocephalic and atraumatic Face and Sinus: normal facial exam Eyes General Eye: normal appearance of both eyes Neck full ROM Chest Chest: symmetrical chest wall rise Resp normal respiratory effort and normal air movement Auscultation: clear to auscultation bilaterally Cardio regular rate, regular rhythm, S1 normal heart sound, S2 normal heart sound, no murmurs, no rub, no gallops and no clicks GI normal to inspection, nondistended, normoactive bowel sounds and non-tender Auscultation: normoactive bowel sounds Palpation: other Other Details: soft, non tender. appearance of the vagina normal Bladder / Kidney Exam: CVA tenderness left Back/Spine normal ROM Extremity normal to inspection and full ROM Skin no rashes or lesions noted Neuro oriented x3, CN's II-XII intact bilaterally and moves all extremities Sensorium / Orientation: awake, alert and oriented to person Motor Exam: clonus absent Deep Tendon Reflexes: Rt Patellar (L4): 2+ and Lt Patellar (L4): 2+ NST FHR Rate Baby B Baseline: 140 Variability:: Moderate Accelerations:: 15 x 15 Decelerations:: None NST Reactive:: Yes Uterine Activity:: None Assessment & Plan (1) Flank pain, acute: (2) Pyelonephritis affecting : COMMENT: Cefepime 1gr IVPB. Will transition to oral Bactrim. CT scan without contrast ordered. (3) Recurrent UTI (urinary tract infection) complicating : COMMENT: Ecoli UTI in . Macrobid 100mg PO once daily for prophylaxis (4) 34 weeks gestation of : (5) Chronic hypertension affecting : COMMENT: CHTN, no medications PLAN: Plan 1) NST reactive 2) CBC, UA, urine culture, CT scan without contrast 3) 1 Liter LR 4) Last urine culture on 11/09 susceptible to Cefepime, 1 gram IV x1. Will follow up after treatment but likely Bactrim for further prophylaxis 5) [facility] and notified of patient status above assessment and plan of care. 12/04/24 1248 SAMANTHA> Date _ Sheyla Moreno CNM Cosigner Signature (if applicable): Date CC: CARLOS Moreno; Dr. Chiki Gonzales MD ~ Signed [facility]08-30-2025 Telephone encounter Note* Telephone Encounter - Amisha Alberto MD - 12/04/2024 10:16 AM EDT Telephone Encounter Hillary Fraire [id number] Provider: Dr. Baltazar Patient identity verified by name and . Hillary Fraire is a 34 year old at 34w1d. Attempted to call patient x3 regarding pain, sent to voicemail. Voicemail is full, unable to leave message. Amisha Alberto MD [facility] Work Phone: 1(126) 894-388208-30-2025 Miscellaneous Notes* Telephone Encounter - Amisha Alberto MD - 12/04/2024 10:16 AM EDT Telephone Encounter Hillary Burns [place] [id number] Provider: Dr. Baltazar Patient identity verified by name and . Hillary Fraire is a 34 year old at 34w1d. Attempted to call patient x3 regarding pain, sent to voicemail. Voicemail is full, unable to leave message. Amisha Alberto MD documented in this encounterUniversity [facility]als [facility]08-25-2025 Progress note* Quick Notes - Sheyla Moreno APRN.CNM - 11/29/2024 8:12 AM EDT FLAKO-S: Hillary Fraire is a 34 year [...] RTO in 2 weeks Sheyla Moreno APRN.CNM [facility]08-25-2025 Miscellaneous Notes* Quick Notes - Sheyla Moreno APRN.CNM - 11/29/2024 8:12 AM EDT FLAKO-S: Hillary Fraire is a 34 year [...] weeks Sheyla Moreno APRN.CNM documented in this encounterUniversity Hospitals [facility]08-22-2025 Note Indication Evaluation of growth Maternal obesity, [...] 3 oz EFW by: Hadlock (HC-AC-FL) Extended Surfacer 6.0 mm Extremities / Bony Struc FL [...] Aly RDMS, RVT Read By: Terra Esparza M.D.MATERNAL [id number] Instructions* Patient Instructions* Apollo Penn LPN - 11/26/2024 10:50 AM EDT SEQUENTIAL SCREENINGS The [facility] offers sequential screenings for women who are interested in screenings for chromosomal abnormalities and certain defects during a . The sequential screen combinesultrasound and blood tests to determine the risk [...] this testing. It will require an appointment withour hydrometeorological technician. This is not an ultrasound performed [...] the above symptoms, contact our office at [phone] and ask to speak with anurse. After hours, you can call doctors registry at [phone] OR call [facility] at [phone] ask to have the doctor terminal operations supervisor paged. If you consider this an emergency, dial [phone] or go to your nearest emergency department. NEED HELP? Are you dealing with a violent or abusive relationship? Are you a victim of rape or sexual assult? Call [facility]) 24 hour Crisis Hotline: 979.660.5601 or 404-350-7194. MANUAL Your Guide to a Healthy manual is now on-line. Visit [email or web address] to download your free copy documented in this encounterUniversity Hospitals Ge[facility]08-04-2025 NoteHNO ID: [id number] Author: KELLY BALTAZAR MD Service: ? Author [...] for remainer of as prescribed by Dr. Sorenson - RTO 2 wks Kelly Baltazar, [facility]07-25-2025 Telephone encounter Note* Telephone Encounter - Staci Ho RN - 10/29/2024 3:26 PM EDT Faxed. Staci Ho RN [facility]07-25-2025 Miscellaneous Notes* Telephone Encounter - Staci Ho RN - 10/29/2024 3:26 PM EDT Faxed. Staci Ho RN * Telephone Encounter - Karina Severino RN - 10/29/2024 10:35 AM EDT Breast pump order received from [address] To SW to sign. Karina Severino RN documented in this encounterUniversity Hospitals [facility]07-25-2025 Telephone encounter Note * Telephone Encounter - Karina Severino RN - 10/29/2024 10:35 AM EDT Breast pump order received from [address] To SW to sign. Karina Severino RN [facility]07-22-2025 Telephone encounter Note* Telephone Encounter - Galilea Abraham MD - 10/26/2024 4:20 PM EDT Mild anemia so she should start an OTC iron supplement every other day. Galilea Abraham MD [facility] Work Phone: 1(134) 544-821007-22-2025 Miscellaneous Notes* Telephone Encounter - Galilea Abraham MD - 10/26/2024 4:20 PM EDT Mild anemia so she should start an OTC iron supplement every other day. Galilea Abraham MD documented in this encounterUniversity Hospitals Geaug[facility] Center07-21-2025 NoteHNO ID: [id number] Author: KELLY BALTAZAR MD Service: ? Author [...] 4 wks - RTO 2 wks [facility] of Present illness Narrative* Kelly Baltazar MD - 10/25/2024 2:45 PM EDT SW- No MALLORY, ctx, vb, lof. Good [...] wks Kelly Baltazar DO documented in this encounterUniversity Hospitals Geaug[facility] Center07-21-2025 Note Indication Evaluation of growth, Follow-up evaluation [...] 13 oz EFW by: Hadlock (HC-AC-FL) Extended Surfacer 6.6 mm Extremities / Bony Struc FL / HC 0.20 Other Structures FHR 148 bpm Anatomy Lateral ventricles: normal Cavum septi pellucidi: normal Cerebellum: normal Cisterna magna: normal Head / Neck Vermis: normal Lips: normal Profile: normal Nose: normal Face Maxilla: normal Mandible: normal 4-chamber view: normal RVOT view: normal LVOT view: normal 3-vessel view: normal 8-oekydg-bzcjldr view: normal Heart / Thorax Situs: situs solitus (normal) Aortic arch view: normal Diaphragm: normal Stomach: normal Kidneys: normal Bladder: normal Wants to know sex: yes Performed By: Janene Pinto RDMS Read By: Marbella Mcgee M.D.MATERNAL [id number] Progress note* Quick Notes - Adina Krueger MD - 09/27/2024 3:40 PM EDT RR- VB No. LOF No. CTXS No. Movement: present. Other c/o: No. Medication list reviewed. SENSITIVE EXAM: Sensitive exam not performed. Physical Exam See Flow Sheet Abd: soft, nontender, gravid Ext: edema: Trace A/P 24w3d Estimated Date of Delivery: 01/14/25 Assessment & Plan UTI (urinary tract infection) in , antepartum (HCC) just finished antiobiotics Orders: BACTERIAL CULTURE, URINE Supervision of high risk in second trimester ([facility]) f/u in 4 weeks, 28 week labs next visit Orders: BACTERIAL CULTURE, URINE Chronic hypertension in ([facility]) checks BP at homew Orders: BACTERIAL CULTURE, URINE 24 weeks gestation of ([facility]) Orders: BACTERIAL CULTURE, URINE Adina Krueger M.D. [facility]06-23-2025 Miscellaneous Notes* Quick Notes - Adina Krueger MD - 09/27/2024 3:40 PM EDT RR- VB No. LOF No. CTXS No. Movement: present. Other c/o: No. Medication list reviewed. SENSITIVE EXAM: Sensitive exam not performed. Physical Exam See Flow Sheet Abd: soft, nontender, gravid Ext: edema: Trace A/P 24w3d Estimated Date of Delivery: 01/14/25 Assessment & Plan UTI (urinary tract infection) in , antepartum ([facility]) just finished antiobiotics Orders: BACTERIAL CULTURE, URINE Supervision of high risk in second trimester ([facility]) f/u in 4 weeks, 28 week labs next visit Orders: BACTERIAL CULTURE, URINE Chronic hypertension in ([facility]) checks BP at homew Orders: BACTERIAL CULTURE, URINE 24 weeks gestation of ([facility]) Orders: BACTERIAL CULTURE, URINE Adina Krueger M.D. documented in this encounterUniversity Hospitals Geaug[facility] Center06-23-2025 Instructions* Patient Instructions* Bella Dinero MA - 09/27/2024 3:12 PM EDT Oral Glucose Tolerance Test During Your provider has ordered an oral glucose tolerance test. For more information: My [facility] CenterOral Gl[facility] Tolerance Test How do I prepare [...] go for the screening and if you needan appointment. Safe Sleep for For more information: [email or web address] Safe Sleep Healthy babies are safest when sleeping on their backs at nighttime and during naps. Side sleeping is not as safe as back sleeping and is not advised. documented in this encounterUniversity Hospitals [facility]06-03-2025 Telephone encounter Note * Telephone Encounter - Elli Barros MD - 09/07/2024 1:15 PM EDT Noted- ordered. I also ordered her prophylaxis assuming this abx will work. (One pill daily for remainder of ) [facility]06-03-2025 Miscellaneous Notes* Telephone Encounter - Elli Barros MD - 09/07/2024 1:15 PM EDT Noted- ordered. I also ordered her prophylaxis assuming this abx will work. (One pill daily for remainder of ) * Telephone Encounter - Staci Ho RN - 09/07/2024 10:16 AM EDT See Pt's mychart message---Would like to try same antibiotic and retest urine on Friday post antibiotic completion. Antibiotic pending along with UA and repeat urine culture if appropriate. Please advise and will contact Pt. Staci Ho RN * Telephone Encounter - Elli Barros MD - 09/07/2024 8:07 AM EDT Please tell her that her susceptibility came back fine for nitrofurantoin - I am not sure why she is not clearing this. Options we can retry same abx and test her at 7 days and then keep her on dailysuppression or try Bactrim (safe in 2nd trimester remote from delivery) I hate to keep changing abxwhen we see they should work. Is she finishing the whole rounds of abx? documented in this encounterUniversity Hospitals [facility] Center06-03-2025 Telephone encounter Note * Telephone Encounter - Staci Ho RN - 09/07/2024 10:16 AM EDT See Pt's Trac Emc & Safetyt message---Would like to try same antibiotic and retest urine on Friday post antibiotic completion. Antibiotic pending along with UA and repeat urine culture if appropriate. Please advise and will contact Pt. Staci Ho RN [facility]06-03-2025 Telephone encounter Note* Telephone Encounter - Elli Barros MD - 09/07/2024 8:07 AM EDT Please tell her that her susceptibility came back fine for nitrofurantoin - I am not sure why she is not clearing this. Options we can retry same abx and test her at 7 days and then keep her on dailysuppression or try Bactrim (safe in 2nd trimester remote from delivery) I hate to keep changing abxwhen we see they should work. Is she finishing the whole rounds of abx? [facility]05-30-2025 Progress note* Quick Notes - Elli Barros MD - 09/03/2024 2:30 PM EDT DM-Pt doing well. Denies vaginal Bleeding, Leaking fluid, or regular Contractions. Pt reports good movement Physical Exam: Gen: female in no apparent distress Abd: soft, Gravid. Non tender to palpation. See flow sheet @ 21 weeks Assessment & Plan Supervision of high risk in second trimester ([facility]) Orders: BACTERIAL CULTURE, URINE UA DIP, URINE (POC) Chronic hypertension in ([facility]) Growth us starting 28 weeks Orders: OBSTETRIC ULTRASOUND WHI; Standing Obesity in ([facility]) NSTs and growth History of pre-eclampsia Continue ASA Orders: BACTERIAL CULTURE, URINE UTI (urinary tract infection) in , antepartum ([facility]) WALKER today- did show nitrates on dip. May consider Prophylactic treatment remainder of - will await culture. Orders: BACTERIAL CULTURE, URINE UA DIP, URINE (POC) 21 weeks gestation of ([facility]) RTO 4 wks Orders: BACTERIAL CULTURE, URINE OBSTETRIC ULTRASOUND WHI; Standing Elli Lopez MD [facility]05-30-2025 Miscellaneous Notes* Quick Notes - Elli Barros MD - 09/03/2024 2:30 PM EDT DM-Pt doing well. Denies vaginal Bleeding, Leaking fluid, or regular Contractions. Pt reports good movement Physical Exam: Gen: female in no apparent distress Abd: soft, Gravid. Non tender to palpation. See flow sheet @ 21 weeks Assessment & Plan Supervision of high risk in second trimester ([facility]) Orders: BACTERIAL CULTURE, URINE UA DIP, URINE (POC) Chronic hypertension in ([facility]) Growth us starting 28 weeks Orders: OBSTETRIC ULTRASOUND WHI; Standing Obesity in ([facility]) NSTs and growth History of pre-eclampsia Continue ASA Orders: BACTERIAL CULTURE, URINE UTI (urinary tract infection) in , antepartum ([facility]) WALKER today- did show nitrates on dip. May consider Prophylactic treatment remainder of - will await culture. Orders: BACTERIAL CULTURE, URINE UA DIP, URINE (POC) 21 weeks gestation of ([facility]) RTO 4 wks Orders: BACTERIAL CULTURE, URINE OBSTETRIC ULTRASOUND WHI; Standing Elli Lopez MD documented in this encounterUniversity Hospitals Ge[facility] Center05-30-2025 Instructions* Patient Instructions* Bella Dinero MA - 09/03/2024 1:53 PM EDT SEQUENTIAL SCREENINGS The [facility] offers sequential screenings for women who are interested in screenings for chromosomal abnormalities and certain defects during a . The sequential screen combinesultrasound and blood tests to determine the risk [...] this testing. It will require an appointment withour hydrometeorological technician. This is not an ultrasound performed [...] the above symptoms, contact our office at [phone] and ask to speak with anurse. After hours, you can call doctors registry at [phone] OR call [facility] at [phone] ask to have the doctor terminal operations supervisor paged. If you consider this an emergency, dial 9--1 or go to your nearest emergency department. NEED HELP? Are you dealing with a violent or abusive relationship? Are you a victim of rape or sexual assult? Call [facility] ([place]) 24 hour Crisis Hotline: 317.483.1867 or 288-965-2106. MANUAL Your Guide to a Healthy manual is now on-line. Visit [email or web address] to download your free copy documented in this encounterUniversity Hospitals Ge[facility] Center04-30-2025 Telephone encounter Note * Telephone Encounter - Karina Severino RN - 08/04/2024 10:58 AM EDT Patient notified. Karina Severino RN [facility]04-30-2025 Miscellaneous Notes* Telephone Encounter - Karina Severino RN - 08/04/2024 10:58 AM EDT Patient notified. Karina Severino RN * Telephone Encounter - Radha Hammer APRN.CNP - 08/04/2024 10:50 AM EDT Please notify patient: + UTI Rx for Macrobid sent Push fluids To notify or go to ER with back pain, fever, chills Radha Hammer APRN.CNP documented in this encounterUniversity Hospitals Ge[facility] Center04-30-2025 Telephone encounter Note * Telephone Encounter - Radha Hammer APRN.CNP - 08/04/2024 10:50 AM EDT Please notify patient: + UTI Rx for Macrobid sent Push fluids To notify or go to ER with back pain, fever, chills Radha Hammer APRN.CNP [facility]04-28-2025 Progress note* Quick Notes - Polly Hamilton MD - 08/02/2024 5:11 PM EDT S: Hillary Fraire is a 34 year [...] ICD10: Z68.38 3. 16 weeks gestation of ([facility]) - ICD9: V22.2, ICD10: Z3A.16 4. UTI (urinary tract infection) in , antepartum ([facility]) - ICD9: 646.63, 599.0, ICD10: O23.40 - BACTERIAL CULTURE, URINE Polly Hamilton MD [facility]04-28-2025 Miscellaneous Notes* Quick Notes - Polly Hamilton MD - 08/02/2024 5:11 PM EDT S: Hillary Fraire is a 34 year old female who presents at 01/14/2025, by Last Menstrual Period for a routine visit. Denies headache, visual changes, chest pain, shortness of breath, vaginal bleeding, leakage of fluid, or dysuria. Feeling well, no complaints. O: See flow sheet Gen: No apparent distress Abd: Gravid, nontender ASSESSMENT/PLAN: 1. , supervision, high-risk, unspecified trimester ([facility]) - ICD9: V23.9, ICD10: O09.90 (primary diagnosis) 2. BMI 38.0-38.9,adult - ICD9: V85.38, ICD10: Z68.38 3. 16 weeks gestation of ([facility]) - ICD9: V22.2, ICD10: Z3A.16 4. UTI (urinary tract infection) in , antepartum ([facility]) - ICD9: 646.63, 599.0, ICD10: O23.40 - BACTERIAL CULTURE, URINE Polly Hamilton MD documented in this encounterUniversity Hospitals Ge[facility] Center04-28-2025 Instructions* Patient Instructions* Michelle Drake MA - 08/02/2024 3:05 PM EDT SEQUENTIAL SCREENINGS The [facility] offers sequential screenings for women who are interested in screenings for chromosomal abnormalities and certain defects during a . The sequential screen combinesultrasound and blood tests to determine the risk [...] this testing. It will require an appointment withour hydrometeorological technician. This is not an ultrasound performed [...] the above symptoms, contact our office at [phone] and ask to speak with anurse. After hours, you can call doctors registry at [phone] OR call [facility] at [phone] ask to have the doctor terminal operations supervisor paged. If you consider this an emergency, dial 9-1-3 or go to your nearest emergency department. NEED HELP? Are you dealing with a violent or abusive relationship? Are you a victim of rape or sexual assult? Call [facility] ([facility] 24 hour Crisis Hotline: 726.661.1283 or 342-930-3584. MANUAL Your Guide to a Healthy manual is now on-line. Visit [email or web address] to download your free copy documented in this encounterUniversity Hospitals Geaug[facility] Center04-03-2025 Telephone encounter Note * Telephone Encounter - Kelly Baltazar MD - 07/08/2024 8:24 AM EDT See result note Keflex sent in for +urine cx [facility]04-03-2025 Miscellaneous Notes* Telephone Encounter - Kelly Baltazar MD - 07/08/2024 8:24 AM EDT See result note Keflex sent in for +urine cx documented in this encounterUniversity Hospitals Geauga Medical Center03-31-2025 Progress note* Quick Notes - Kelly Baltazar MD - 07/05/2024 5:28 PM EDT SW- pt doing well. No pain, vb, [...] - RTO 4 wks Kelly Baltazar DO [facility]03-31-2025 Miscellaneous Notes* Quick Notes - Kelly Baltazar MD - 07/05/2024 5:28 PM EDT SW- pt doing well. No pain, vb, [...] wks Kelly Baltazar DO documented in this encounterUniversity Hospitals Geauga Medical Center03-31-2025 Instructions* Patient Instructions* Lizzie Kern MA - 07/05/2024 3:11 PM EDT SEQUENTIAL SCREENINGS The [facility] offers sequential screenings for women who are interested in screenings for chromosomal abnormalities and certain defects during a . The sequential screen combinesultrasound and blood tests to determine the risk [...] this testing. It will require an appointment withour hydrometeorological technician. This is not an ultrasound performed [...] the above symptoms, contact our office at [phone] and ask to speak with anurse. After hours, you can call doctors registry at [phone] OR call [facility] at [phone] ask to have the doctor terminal operations supervisor paged. If you consider this an emergency, dial 9-1-6 or go to your nearest emergency department. NEED HELP? Are you dealing with a violent or abusive relationship? Are you a victim of rape or sexual assult? Call [facility] ([place]) 24 hour Crisis Hotline: 901.710.2450 or 698-898-5172. MANUAL Your Guide to a Healthy manual is now on-line. Visit [email or web address] to download your free copy documented in this encounterUniversity Hospitals Geauga Medical Center03-05-2025 Telephone encounter Note * Telephone Encounter - Radha Hammer APRN.CNP - 06/09/2024 8:47 AM EST Please notify patient: + UTI Push fluids Rx for Macrobid sent To notify if symptoms worsening or not improving Radha Hammer APRN.CNP [facility]03-05-2025 Miscellaneous Notes* Telephone Encounter - Radha Hammer APRN.CNP - 06/09/2024 8:47 AM EST Please notify patient: + UTI Push fluids Rx for Macrobid sent To notify if symptoms worsening or not improving Radha Hammer APRN.CNP documented in this encounterUniversity Hospitals Geaug[facility] Center03-03-2025 Instructions* Patient Instructions* Winsome Mckeon LPN - 06/07/2024 1:59 PM EST Please select the following link to access the [facility] Your Guide to a Healthy . [email or web address] documented in this encounterUniversity Hospitals Geauga Medical Center03-03-2025 NoteHNO ID: [id number] Author: LEANNE AQUINO APRN.CNP Service: ? Author Type: Nurse Practitioner Type: Progress Notes Filed: 06/07/2024 15:57 Note Text: Patient declined pharmacy service associate. *Patient has a history of preeclampsia with [...] OB Risk Screening: Comp (more content not included)...[facility] 06-07-2024 History of Present illness Narrative* Leanne Aquino APRN.RAILROAD YARD WORKER - 06/07/2024 1:45 PM EST Patient declined pharmacy service associate. 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 As applicable, any other physician, advance practice provider, medical student, or other health professional student that will be observing or involved in the sensitive examination for educational or training purposes was discussed with the Patient or Authorized Consumer Affairs Specialist. The Patient or Authorized Consumer Affairs Specialist has agreed to proceed with the sensitive [...] +cardiac activity, CRL consistent with LMP. Leanne Aquino, TRIMMING MACHINE OPERATOR.RAILROAD YARD WORKER SBIRT Hillary Fraire was given the 4P's screening tool. Hillary Katy answered No to all the questions, the [...] Your guide to a health and the [place]. Reviewed midwifery and financial rep services that are available. 2) Screening: Hemoglobin [...] aneuploidy screening was provided. The patient chooses toproceed with First trimester early anatomy ultrasound (12-13w6d) [...] prn. Leanne Aquino APRN.CNP documented in this encounterUniversity Hospitals Geauga Medical Center02-17-2025 Instructions* Patient Instructions* Crissy Tom APRN.CN - 05/24/2024 8:10 AM EST As you may already know, morning sickness can often be more appropriately called evening sickness or locia-eqjwwx-hd-the-day sickness. While there are the paulino few, most women (50-90%) experience some degree of nausea, some have vomiting, and a few develop a severe form of vomiting duringpregnancy called hyperemesis gravidarum. What causes the nausea and vomiting of ? We can't explain why some people feel fine and others are green for months. Even the same woman mayfeel vastly different in each . There is some relationship between nausea and the level ofthe hormone hCG. In twin pregnancies, and in [...] weeks can go by slowly but most momsdo feel tremendously better by the middle of [...] your practitioner if it is okay to temporarilyreplace vitamins and iron with just a folate [...] medication called Bendectin was available in the 1970s-1979's and was shown to be safe in [...] medication, Doxylamine, is currently marketed as an ftwu-fqb-rejcnuu sleeping pill. Ask your practitioner if creating a vitamin B6/Doxylaminecombination with hcru-dcu-nhrgkms medications would be safe for you. Prescription medications like Compazine and Phenergan can be used if the benefits outweigh possiblerisks, but these have not been clearly shown [...] able. If you are unable to keep anyt nadia down, or if you notice potential signs of dehydration such as lightheadedness, or concentratedand/or infrequent urination, call your practitioner. Some women need brief hospital admission for intravenous fluids and anti-nausea medications if their condition becomes severe. This severe form ofnausea and vomiting is called Hyperemesis Gravidarum. As [...] as Phenergan, Compazine, Reglan documented in this encounterUniversity Hospitals Geauga Medical Center02-17-2025 NoteHNO ID: [id number] Author: CRISSY TOM APRN.CNM Service: ? Author Type: Compugraph Operator Type: Progress Notes Filed: 05/24/2024 10:23 Note [...] Living1 SAB0 IAB0 Ectopic0 Multiple0 Live Births1 Manager Financial History LMP: 03/31/2023 (Exact Date), Having periods Age at Menarche: Age at First : Age at Menopause: Manager Financial History Comments: Sexual Activity: Yes; Male Contraception: Pill PAST MEDICAL HISTORY Diagnosis Date #[id number] Anemia during in third trimester 11/15/2020 fracture [...] discussed with the Patient or Patient's Authorized Consumer Affairs Specialist. As applicable, any other physician, advance practice provider, medical student, or other health professional student that will be observing or involved in the sensitive examination for educational or training purposes was discussed with the Patient or Authorized Consumer Affairs Specialist. The Patient or Authorized Consumer Affairs Specialist has agreed to proceed with the sensitive [...] RTO 2 weeks for NOB Crissy Tom APRN.[facility]02-17-2025 History of Present illness Narrative* Crissy Tom APRN.[facility] - 05/24/2024 7:53 AM EST Hillary Fraire is a 34 year old female who presents for problem visit x2 days spotting and missedmenses. HPI: LMP 04/09/24 which puts gestational age at 6w 5days.. She is here today with because shethought it was her NOB appointment. Patient was initially concerned due to spotting for 2 days earlier this month. She denies any current spotting, bleeding or pain. was unplanned but accepted. She has a history of 3 years ago with PP preeclampsia. OB History Gravida1 Para1 Term1 Preterm0 AB0 Living1 SAB0 IAB0 Ectopic0 Multiple0 Live Births1 Manager Financial History LMP: 03/31/2023 (Exact Date), Having periods Age at Menarche: Age at First : Age at Menopause: Manager Financial History Comments: Sexual Activity: Yes; Male Contraception: Pill PAST MEDICAL HISTORY Diagnosis Date #[id number] Anemia during in third trimester 11/15/2020 fracture [...] 0.25-35 mg-mcg per tablet Take 1 tablet bymouth once daily. No current facility-administered medications for [...] discussed with the Patient or Patient's Authorized Consumer Affairs Specialist. As applicable, any other physician, advance practice provider, medical student, or other health professional student that will be observing or involved in the sensitive examination for educational or training purposes was discussed with the Patient or Authorized Consumer Affairs Specialist. The Patient or Authorized Consumer Affairs Specialist has agreed to proceed with the sensitive [...] NOB Crissy Tom APRN.CNM documented in this encounterUniversity Hospitals Geaug[facility] Center02-05-2025 Telephone encounter Note * Telephone Encounter - Polly Peace RN - 05/12/2024 11:29 AM EST LMP 1/3 Approximately 4w5d [facility]02-05-2025 Miscellaneous Notes* Telephone Encounter - Polly Peace RN - 05/12/2024 11:29 AM EST LMP 1/3 Approximately 4w5d documented in this encounterUniversity Hospitals Geauga Medical Center11-29-2023 Miscellaneous Notes* Telephone Encounter - Sheyla Moreno APRN.CNM - 03/05/2023 12:00 PM EST I am happy to see her for an appointment and can be virtual as well to discuss and come up with a plan for me either to order labs or referral. Sheyla Moreno APRN.CNM * Telephone Encounter - Sheyla Moreno APRN.CNM - 03/03/2023 4:02 PM EST Patient will need an appointment to discuss concerns. Unfortunately, with hormones testing, we don't do this routinely and management. I can refer her to places that do this though if she would like.Thank you, Sheyla Moreno APRN.CNM documented in this encounterUniversity Hospitals Geauga Medical Center10-16-2023 Miscellaneous Notes* Telephone Encounter - Abram Sim, HAL - 01/20/2023 11:12 AM EDT Patient aware she needs to schedule annual exam. Requested Prescriptions Pending Prescriptions Disp Refills Norethindrone, Contraceptive, (JENCYCLA) 0.35 mg tablet 90 tablet 0 Sig: Take 1 tablet by mouth once daily. ABRAM SIM RN documented in this encounterUniversity Hospitals Geauga Medical Center11-25-2022 Miscellaneous Notes* Telephone Encounter - Pavithra James LPN - 03/01/2022 4:34 PM EST Pt notified. Pavithra James LPN * Telephone Encounter - Sheyla Moreno APRN.CNM - 03/01/2022 4:28 PM EST Please refer to medication list safety in for patient. Sheyla Moreno APRN.CNM * Telephone Encounter - Pavithra James LPN - 03/01/2022 9:20 AM EST Please see pt's TenasiTechhart message and further advise. Pavithra James LPN documented in this encounterUniversity Hospitals Geauga Medical Center11-10-2022 Miscellaneous Notes* Telephone Encounter - Sheyla Moreno APRN.CNM - 02/14/2022 10:05 AM EST [email or web address] message sent to patient in results. Sheyla Moreno APRN.CNM documented in this encounterUniversity Hospitals Geauga Medical Center11-07-2022 History of Present illness Narrative* Sheyla Moreno APRN.CNM - 02/11/2022 8:08 AM EST Hillary Burns is a 31 year old [...] L1 SAB0 IAB0 Ectopic0 Multiple0 Live Births1 Manager Financial History LMP: 02/06/2022 (Exact Date), Unknown Age at Menarche: Age at First : Age at Menopause: Manager Financial History Comments: Sexual Activity: Yes; Male Contraception: Pill PAST MEDICAL HISTORY Diagnosis Date #[id number] Anemia during in third trimester 11/15/2020 fracture [...] external genitalia normal, normal Bartholin's glands, urethra, Alda's glands, no vulvar lesions, no cervical lesions, [...] needed Sheyla Moreno APRN.CNM documented in this encounterUniversity [facility]22 Miscellaneous Notes* Addendum Note - Kelly Baltazar MD - 01/28/2022 3:13 PM EDTAddended by: KELLY BALTAZAR on: 01/28/2022 03:13 PM Modules accepted: Orders * Telephone Encounter - Kelly Baltazar MD - 01/28/2022 3:13 PM EDT Refill sent in * Telephone Encounter - Karina Severino RN - 01/28/2022 11:22 AM EDT Annual scheduled with FLAKO 02/11/22. Sent to oncall provider because she needs refill today. Will also forward to FLAKO regarding patient's question if she needs to have any iron levels checked prior to visit. Requested Prescriptions Pending Prescriptions Disp Refills Norethindrone, Contraceptive, (JENCYCLA) 0.35 mg tablet 28 tablet 0 Sig: Take 1 tablet by mouth once daily. Karina Severino RN * Telephone Encounter - Zena Villanueva Pss - 01/28/2022 9:21 AM EDT Patient has been identified by name and [...] advise. Zena Villanueva Pss documented in this encounterUniversity Hospitals [facility]10-11-2022 Miscellaneous Notes* Telephone Encounter - Eden Lovett RN - 01/15/2022 10:03 AM EDT Refill request received from pharmacy for patients OCP. Patient last seen in office on 02/20/21 forpostpartum exam. PSS: Please contact patient to schedule annual exam. Eden Lovett RN documented in this encounterUniversity Hospitals [facility]08-11-2021 History of Past illness Narrative* Problem Noted Date Resolved Date Anemia during in third trimester 11/1502/20/2021 Overview: 12/13/20-Repeat CBC today. Sheyla Moreno APRN.CNM 11/15/20: ferrous sulfate 325mg BID. Repeat in 3-4 weeks. Elli Sorenson MD Supervision of high risk in third [...] of this encounter (statuses as of 01/15/2022) [facility] History of Past illness Narrative* Problem Noted Date Resolved Date Anemia during in third trimester 11/1502/20/2021 Overview: 12/13/20-Repeat CBC today. Sheyla Moreno APRN.CNM 11/15/20: ferrous sulfate 325mg BID. Repeat in 3-4 weeks. Elli Sorenson MD Supervision of high risk in third [...] of this encounter (statuses as of 01/28/2022) [facility] History of Past illness Narrative* Problem Noted Date Resolved Date Anemia during in third trimester 11/1502/20/2021 Overview: 12/13/20-Repeat CBC today. Sheyla Moreno APRN.CNM 11/15/20: ferrous sulfate 325mg BID. Repeat in 3-4 weeks. Elli Sorenson MD Supervision of high risk in third [...] of this encounter (statuses as of 01/28/2022) [facility] History of Past illness Narrative* Problem Noted Date Resolved Date Anemia during in third trimester 11/1502/20/2021 Overview: 12/13/20-Repeat CBC today. Sheyla Moreno APRN.CNM 11/15/20: ferrous sulfate 325mg BID. Repeat in 3-4 weeks. Elli Sorenson MD Supervision of high risk in third [...] of this encounter (statuses as of 02/11/2022) [facility] History of Past illness Narrative* Problem Noted Date Resolved Date Anemia during in third trimester 11/1502/20/2021 Overview: 12/13/20-Repeat CBC today. Sheyla Moreno APRN.CNM 11/15/20: ferrous sulfate 325mg BID. Repeat in 3-4 weeks. Elli Sorenson MD Supervision of high risk in third [...] of this encounter (statuses as of 02/11/2022) [facility] History of Past illness Narrative* Problem Noted Date Resolved Date Anemia during in third trimester 11/1502/20/2021 Overview: 12/13/20-Repeat CBC today. Sheyla Moreno APRN.CNM 11/15/20: ferrous sulfate 325mg BID. Repeat in 3-4 weeks. Elli Sorenson MD Supervision of high risk in third [...] of this encounter (statuses as of 02/14/2022) [facility] History of Past illness Narrative* Problem Noted Date Resolved Date Anemia during in third trimester 11/1502/20/2021 Overview: 12/13/20-Repeat CBC today. Sheyla Moreno APRN.CNM 11/15/20: ferrous sulfate 325mg BID. Repeat in 3-4 weeks. Elli Sorenson MD Supervision of high risk in third [...] of this encounter (statuses as of 03/01/2022) [facility] History of Past illness Narrative* Problem Noted Date Diagnosed Date Resolved Date Anemia during in third trimester 11/15/2020 02/20/2021 Overview: 12/13/20-Repeat CBC today. Sheyla Moreno APRN.CNM 11/15/20: ferrous sulfate 325mg BID. Repeat in 3-4 weeks. Elli Sorenson MD Supervision of high risk pre gnancy [...] of this encounter (statuses as of 01/20/2023) [facility] History of Past illness Narrative* Problem Noted Date Diagnosed Date Resolved Date Anemia during in third trimester 11/15/2020 02/20/2021 Overview: 12/13/20-Repeat CBC today. Sheyla Moreno APRN.CNM 11/15/20: ferrous sulfate 325mg BID. Repeat in 3-4 weeks. Elli Sorenson MD Supervision of high risk pre gnancy [...] of this encounter (statuses as of 03/05/2023) [facility] note* Diagnosis Encounter for surveillance of contraceptive pills- Primary Surveillance of previously prescribed contraceptive pill documented in this encounter [facility] note* Diagnosis Encounter for gynecological examination (general) (routine) without abnormal findings- Primary Malaise and fatigue Other malaise and fatigue Encounter for surveillance of contraceptive pills Surveillance of previously prescribed contraceptive pill documented in this encounter [facility] note* Diagnosis Encounter for surveillance of contraceptive pills Surveillance of previously prescribed contraceptive pill documented in this encounter [facility] note* Diagnosis Missed menses- Primary Absence of [...] in first trimester documented in this encounter [facility] note* Diagnosis Missed menses- Primary Absence of [...] high-risk, unspecified trimester documented in this encounter [facility] note* Diagnosis Missed menses- Primary Absence of menstruation 6 weeks gestation of state, incidental Spotting in early Spotting complicating , antepartum condition or complication Obesity affecting in first trimester, unspecified obesity type Nausea Nausea alone UTI (urinary tract infection) in , antepartum- Primary Infections of genitourinary tract antepartum documented in this encounter [facility] note* Diagnosis Missed menses- Primary Absence of menstruation 6 weeks gestation of (HCC) state, incidental Spotting in early (HCC) Spotting complicating , antepartum condition or complication Obesity affecting in first trimester, unspecified obesity type ([facility]) Nausea Nausea alone , supervision, high-risk, unspecified trimester (HCC)- Primary 12 weeks gestation of ([facility]) state, incidental UTI (urinary tract infection) in , antepartum ([facility]) Infections of genitourinary tract antepartum Elevated LFTs Other abnormal blood chemistry documented in this encounter [facility] note* Diagnosis Missed menses- Primary Absence of menstruation 6 weeks gestation of ([facility]) state, incidental Spotting in early (HCC) Spotting complicating , antepartum condition or complication Obesity affecting in first trimester, unspecified obesity type ([facility]) Nausea Nausea alone Bacteria in urine- Primary Other nonspecific finding on examination of urine documented in this encounter [facility] note* Diagnosis Missed menses- Primary Absence of menstruation 6 weeks gestation of (HCC) state, incidental Spotting in early (HCC) Spotting complicating , antepartum condition or complication Obesity affecting in first trimester, unspecified obesity type ([facility]) Nausea Nausea alone 8 weeks gestation of ([facility]) state, incidental [facility] Diagnosis Missed menses- Primary Absence of menstruation 6 weeks gestation of (HCC) state, incidental Spotting in early (HCC) Spotting complicating , antepartum condition or complication Obesity affecting in first trimester, unspecified obesity type (HCC) Nausea Nausea alone , supervision, high-risk, unspecified trimester (HCC)- Primary BMI 38.0-38.9,adult Body Mass Index 38.0-38.9, adult 16 weeks gestation of (HCC) state, incidental UTI (urinary tract infection) in , antepartum (HCC) Infections of genitourinary tract antepartum documented in this encounter [facility] note* Diagnosis Missed menses- Primary Absence of menstruation 6 weeks gestation of (HCC) state, incidental Spotting in early (HCC) Spotting complicating , antepartum condition or complication Obesity affecting in first trimester, unspecified obesity type (HCC) Nausea Nausea alone UTI (urinary tract infection) in , antepartum ([facility])- Primary Infections of genitourinary tract antepartum documented in this encounter [facility] note* Diagnosis Missed menses- Primary Absence of menstruation 6 weeks gestation of (HCC) state, incidental Spotting in early (HCC) Spotting complicating , antepartum condition or complication Obesity affecting in first trimester, unspecified obesity type (HCC) Nausea Nausea alone Supervision of high risk in second trimester ([facility])- Primary Unspecified high-risk Chronic hypertension in (HCC) Benign essential hypertension complicating , childbirth, and the puerperium, unspecified as to episode of care Obesity in (HCC) Obesity complicating , childbirth, or the puerperium, unspecified as to episode of care or not applicable History of pre-eclampsia UTI (urinary tract infection) in , antepartum (HCC) Infections of genitourinary tract antepartum 21 weeks gestation of ([facility]) state, incidental * Assessment & [...] (urinary tract infection) in , antepartum (HCC) WALKER today- did show nitrates on dip. May consider Prophylactic treatment remainder of - will await culture. Orders: BACTERIAL CULTURE, URINE UA DIP, URINE (POC) documented [facility] this encounter [facility]* Diagnosis Missed menses- Primary Absence of menstruation 6 weeks gestation of (HCC) state, incidental Spotting in early ([facility]) Spotting complicating , antepartum condition or complication Obesity affecting in first trimester, unspecified obesity type (HCC) Nausea Nausea alone Encounter for anatomic survey ([facility])- Primary Encounter for anatomic survey 8 weeks gestation of ([facility]) state, incidental Obesity affecting in second trimester, unspecified obesity type (HCC) Supervision of high risk in second trimester ([facility])- Primary Unspecified high-risk Chronic hypertension [...] 21 weeks gestation of (HCC) state, incidental documented in this encounter [facility] note* Diagnosis Missed menses- Primary Absence of menstruation 6 weeks gestation of ([facility]) state, incidental Spotting in early (HCC) Spotting complicating , antepartum condition or complication Obesity affecting in first trimester, unspecified obesity type ([facility]) Nausea Nausea alone Supervision of high risk in second trimester ([facility])- Primary Unspecified high-risk Chronic hypertension in (HCC) Benign essential hypertension complicating , childbirth, and the puerperium, unspecified as to episode of care Obesity in ([facility]) Obesity complicating , childbirth, or the puerperium, unspecified as to episode of care or not applicable History of pre-eclampsia UTI (urinary tract infection) in , antepartum ([facility]) Infections of genitourinary tract antepartum 21 weeks gestation of ([facility]) state, incidental UTI (urinary tract infection) in , antepartum ([facility]) Infections of genitourinary tract antepartum documented in this encounter [facility] note* Diagnosis Missed menses- Primary Absence of menstruation 6 weeks gestation of ([facility]) state, incidental Spotting in early (HCC) Spotting complicating , antepartum condition or complication Obesity affecting in first trimester, unspecified obesity type ([facility]) Nausea Nausea alone Supervision of high risk in second trimester ([facility])- Primary Unspecified high-risk Chronic hypertension in (HCC) Benign essential hypertension complicating , childbirth, and the puerperium, unspecified as to episode of care Obesity in ([facility]) Obesity complicating , childbirth, or the puerperium, unspecified as to episode of care or not applicable History of pre-eclampsia UTI (urinary tract infection) in , antepartum ([facility]) Infections of genitourinary tract antepartum 21 weeks gestation of ([facility]) state, incidental Supervision of high risk in second trimester ([facility])- Primary Unspecified high-risk UTI (urinary tract infection) in , antepartum (HCC) Infections of genitourinary tract antepartum Chronic hypertension in (HCC) Benign essential hypertension complicating , childbirth, and the puerperium, unspecified as to episode of care 24 weeks gestation of ([facility]) state, incidental * Assessment & Plan Note - Adina Krueger MD - 09/27/2024 3:44 PM EDT Associated Problem(s): UTI (urinary tract infection) in , antepartum ([facility]) just finished antiobiotics Orders: BACTERIAL CULTURE, URINE * Assessment & Plan Note - Adina Krueger MD - 09/27/2024 3:44 PM EDT Associated Problem(s): Chronic hypertension in ([facility]) checks BP at homew Orders: BACTERIAL CULTURE, URINE documented [facility] this [facility] Diagnosis Missed menses- Primary Absence of menstruation 6 weeks gestation of ([facility]) state, incidental Spotting in early ([facility]) Spotting complicating , antepartum condition or complication Obesity affecting in first trimester, unspecified obesity type ([facility]) Nausea Nausea alone Supervision of high risk in second trimester ([facility])- Primary Unspecified high-risk Chronic hypertension in ([facility]) Benign essential hypertension complicating , childbirth, and the puerperium, unspecified as to episode of care Obesity in ([facility]) Obesity complicating , childbirth, or the puerperium, unspecified as to episode of care or not applicable History of pre-eclampsia UTI (urinary tract infection) in , antepartum ([facility]) Infections of genitourinary tract antepartum 21 weeks gestation of ([facility]) state, incidental Supervision of high risk in second trimester ([facility])- Primary Unspecified high-risk UTI (urinary tract infection) in , antepartum ([facility]) Infections of genitourinary tract antepartum Chronic hypertension in ([facility]) Benign essential hypertension complicating , childbirth, and the puerperium, unspecified as to episode of care 24 weeks gestation of ([facility]) state, incidental UTI (urinary tract infection) in , antepartum ([facility])- Primary Infections of genitourinary tract antepartum Supervision of high risk in second trimester ([facility]) Unspecified high-risk Chronic hypertension in (HCC) Benign essential hypertension complicating , childbirth, and the puerperium, unspecified as to episode of care 28 weeks gestation of ([facility]) state, incidental [facility] Diagnosis Missed menses- Primary Absence of menstruation 6 weeks gestation of ([facility]) state, incidental Spotting in early ([facility]) Spotting complicating , antepartum condition or complication Obesity affecting in first trimester, unspecified obesity type ([facility]) Nausea Nausea alone Supervision of high risk in second trimester ([facility])- Primary Unspecified high-risk Chronic hypertension in ([facility]) Benign essential hypertension complicating , childbirth, and the puerperium, unspecified as to episode of care Obesity in ([facility]) Obesity complicating , childbirth, or the puerperium, unspecified as to episode of care or not applicable History of pre-eclampsia UTI (urinary tract infection) in , antepartum ([facility]) Infections of genitourinary tract antepartum 21 weeks gestation of ([facility]) state, incidental Supervision of high risk in second trimester ([facility])- Primary Unspecified high-risk UTI (urinary tract infection) in , antepartum ([facility]) Infections of genitourinary tract antepartum Chronic hypertension in ([facility]) Benign essential hypertension complicating , childbirth, and the puerperium, unspecified as to episode of care 24 weeks gestation of ([facility]) state, incidental Encounter for ultrasound to check growth ([facility])- Primary Encounter for routine screening for malformation using ultrasonics Chronic hypertension in ([facility]) Benign essential hypertension complicating , childbirth, and the puerperium, unspecified as to episode of care 28 weeks gestation of ([facility]) state, incidental documented in this encounter [facility] note* Diagnosis Missed menses- Primary Absence of menstruation 6 weeks gestation of ([facility]) state, incidental Spotting in early (HCC) Spotting complicating , antepartum condition or complication Obesity affecting in first trimester, unspecified obesity type ([facility]) Nausea Nausea alone Supervision of high risk in second trimester ([facility])- Primary Unspecified high-risk Chronic hypertension in (HCC) Benign essential hypertension complicating , childbirth, and the puerperium, unspecified as to episode of care Obesity in ([facility]) Obesity complicating , childbirth, or the puerperium, unspecified as to episode of care or not applicable History of pre-eclampsia UTI (urinary tract infection) in , antepartum ([facility]) Infections of genitourinary tract antepartum 21 weeks gestation of ([facility]) state, incidental UTI (urinary tract infection) in , antepartum ([facility])- Primary Infections of genitourinary tract antepartum Supervision of high risk in second trimester ([facility])- Primary Unspecified high-risk UTI (urinary tract infection) in , antepartum ([facility]) Infections of genitourinary tract antepartum Chronic hypertension in ([facility]) Benign essential hypertension complicating , childbirth, and the puerperium, unspecified as to episode of care 24 weeks gestation of ([facility]) state, incidental documented in this encounter [facility] note* Diagnosis Missed menses- Primary Absence of menstruation 6 weeks gestation of ([facility]) state, incidental Spotting in early (HCC) Spotting complicating , antepartum condition or complication Obesity affecting in first trimester, unspecified obesity type ([facility]) Nausea Nausea alone Supervision of high risk in second trimester ([facility])- Primary Unspecified high-risk Chronic hypertension in ([facility]) Benign essential hypertension complicating , childbirth, and the puerperium, unspecified as to episode of care Obesity in ([facility]) Obesity complicating , childbirth, or the puerperium, unspecified as to episode of care or not applicable History of pre-eclampsia UTI (urinary tract infection) in , antepartum ([facility]) Infections of genitourinary tract antepartum 21 weeks gestation of ([facility]) state, incidental Supervision of high risk in second trimester ([facility])- Primary Unspecified high-risk UTI (urinary tract infection) in , antepartum ([facility]) Infections of genitourinary tract antepartum Chronic hypertension in (HCC) Benign essential hypertension complicating , childbirth, and the puerperium, unspecified as to episode of care 24 weeks gestation of ([facility]) state, incidental Obesity affecting in first trimester, unspecified obesity type ([facility])- Primary Chronic hypertension in ([facility]) Benign essential hypertension complicating , childbirth, and the puerperium, unspecified as to episode of care documented in this encounter [facility]* Diagnosis Missed menses- Primary Absence of menstruation 6 weeks gestation of ([facility]) state, incidental Spotting in early ([facility]) Spotting complicating , antepartum condition or complication Obesity affecting in first trimester, unspecified obesity type ([facility]) Nausea Nausea alone Supervision of high risk in second trimester ([facility])- Primary Unspecified high-risk Chronic hypertension in ([facility]) Benign essential hypertension complicating , childbirth, and the puerperium, unspecified as to episode of care Obesity in ([facility]) Obesity complicating , childbirth, or the puerperium, unspecified as to episode of care or not applicable History of pre-eclampsia UTI (urinary tract infection) in , antepartum ([facility]) Infections of genitourinary tract antepartum 21 weeks gestation of ([facility]) state, incidental Supervision of high risk in second trimester ([facility])- Primary Unspecified high-risk UTI (urinary tract infection) in , antepartum ([facility]) Infections of genitourinary tract antepartum Chronic hypertension in ([facility]) Benign essential hypertension complicating , childbirth, and the puerperium, unspecified as to episode of care 24 weeks gestation of ([facility]) state, incidental , supervision, high-risk, unspecified trimester ([facility])- Primary Antepartum anemia complicating in third trimester ([facility]) Chronic hypertension in ([facility]) Benign essential hypertension complicating , childbirth, and the puerperium, unspecified as to episode of care Obesity affecting in third trimester, unspecified obesity type ([facility]) Generalized anxiety disorder 33 weeks gestation of (HCC) state, incidental [facility] Dis[facility] instructionsAdditional Instructions keep already scheduled apt for 12/13/2024 w [facility] Work Phone: Reason for referral (narrative)No reason for referral information availableWOhio State East Hospital Work Phone: Reason for visit Narrative* Diagnostic Procedure Only (Routine) - Closed Specialty Diagnoses / Procedures Referred By Contac t Referred To Contact [facility] Diagnoses 8 weeks gestation of (HCC) Procedures OBSTETRIC ULTRASOUND WHI US PREG UTERUS AFTER 1ST TRIMEST GESTATION Leanne Aquino APRN.MIKE [address] [place] [address] Phone: tel: fax: [facility] [address] [place] [address] Referral ID Status Reason Start Date Expiration Date V isits Requested Visits Authorized [id number] Closed Auto-Generate d Referral 06/21/2024 04/06/2025 1 1 [facility] Narrative* Diagnostic Procedure Only (Routine) - Authorized Specialty Diagnoses / Procedures Referred By Contac t Referred To Contact [facility] Diagnoses Chronic hypertension in (HCC) 21 weeks gestation of (HCC) Procedures OBSTETRIC ULTRASOUND WHI US PREG UTERUS AFTER 1ST TRIMEST GESTATION Elli Barros MD [address] [place] [address] Phone: tel: fax:[phone] [facility] [address] [place] [address] Referral ID Status Reason Start Date Expiration Date Visits Requested Visits Authorized [id number] Authorized Auto-Generat ed Referral 04/07/2024 04/06/2025 5 5 [facility] Assessments Diagnosis Threatened miscarriage- Primary Threatened , unspecified as to episode of care Summary Purpose Family History No Family History Records FoundNo Family History Records Found Advance Directives No Advanced Directives Records FoundNo Advanced Directives Records Found Chief Complaint and Reason for Visit Chief Complaint Admit Date PYELONEPHRITIS December 04, 2024 5: 00pm PYELONEPHRITIS December 05, 2024 9: 42am PYELONEPHRITIS December 06, 2024 10:02am Reason for Visit Admit Date 34 weeks gestation of November 072024 5:00pm Flank pain, acute December 04, 2024 5: 00pm High risk multigravida in third trimeste r December 04, 2024 5:00pm Hydronephrosis December 04, 2024 5: 00pm Pyelonephritis affecting Augus t 2024 5:00pm Recurrent UTI (urinary tract infection) complicating December 04, 2024 5:00pm Ureteropelvic junction calculus November 072024 5:00pm Chronic hypertension affecting December 04, 2024 5:00pm Additional Source Comments Source Comments (unrecognize d section and content) In the event this informatio n is protected by the Federal Confidentiality of Alcohol and Drug Abuse Patient Records regulations: The Federal rules restrict any use of the information to criminally investigate or prosecute any alcohol or drug abuse patient.[facility] the event this information is protected by the Federal Confidentiality of Alcohol and Drug Abuse Patient Records regulations: The Federal rules restrict any use of the information to criminally investigate or prosecute any alcohol or drug abuse patient.[facility] Center[facility] the event this information is protected by the Federal Confidentiality of Alcohol and Drug Abuse Patient Records regulations: The Federal rules restrict any use of the information to criminally investigate or prosecute any alcohol or drug abuse patient.[facility] Center[facility] the event this information is protected by the Federal Confidentiality of Alcohol and Drug Abuse Patient Records regulations: The Federal rules restrict any use of the information to criminally investigate or prosecute any alcohol or drug abuse patient.[facility] Center[facility] the event this information is protected by the Federal Confidentiality of Alcohol and Drug Abuse Patient Records regulations: The Federal rules restrict any use of the information to criminally investigate or prosecute any alcohol or drug abuse patient.[facility] Center[facility] the event this information is protected by the Federal Confidentiality of Alcohol and Drug Abuse Patient Records regulations: The Federal rules restrict any use of the information to criminally investigate or prosecute any alcohol or drug abuse patient.[facility] CenterIn the event this information is protected by the Federal Confidentiality of Alcohol and Drug Abuse Patient Records regulations: The Federal rules restrict any use of the information to criminally investigate or prosecute any alcohol or drug abuse patient.[facility] CenterIn the event this information is protected by the Federal Confidentiality of Alcohol and Drug Abuse Patient Records regulations: The Federal rules restrict any use of the information to criminally investigate or prosecute any alcohol or drug abuse patient.[facility] CenterIn the event this information is protected by the Federal Confidentiality of Alcohol and Drug Abuse Patient Records regulations: The Federal rules restrict any use of the information to criminally investigate or prosecute any alcohol or drug abuse patient.[facility] CenterIn the event this information is protected by the Federal Confidentiality of Alcohol and Drug Abuse Patient Records regulations: The Federal rules restrict any use of the information to criminally investigate or prosecute any alcohol or drug abuse patient.[facility] CenterIn the event this information is protected by the Federal Confidentiality of Alcohol and Drug Abuse Patient Records regulations: The Federal rules restrict any use of the information to criminally investigate or prosecute any alcohol or drug abuse patient.[facility] CenterIn the event this information is protected by the Federal Confidentiality of Alcohol and Drug Abuse Patient Records regulations: The Federal rules restrict any use of the information to criminally investigate or prosecute any alcohol or drug abuse patient.[facility] CenterIn the event this information is protected by the Federal Confidentiality of Alcohol and Drug Abuse Patient Records regulations: The Federal rules restrict any use of the information to criminally investigate or prosecute any alcohol or drug abuse patient.[facility] CenterIn the event this information is protected by the Federal Confidentiality of Alcohol and Drug Abuse Patient Records regulations: The Federal rules restrict any use of the information to criminally investigate or prosecute any alcohol or drug abuse patient.[facility] CenterIn the event this information is protected by the Federal Confidentiality of Alcohol and Drug Abuse Patient Records regulations: The Federal rules restrict any use of the information to criminally investigate or prosecute any alcohol or drug abuse patient.[facility] CenterIn the event this information is protected by the Federal Confidentiality of Alcohol and Drug Abuse Patient Records regulations: The Federal rules restrict any use of the information to criminally investigate or prosecute any alcohol or drug abuse patient.[facility] CenterIn the event this information is protected by the Federal Confidentiality of Alcohol and Drug Abuse Patient Records regulations: The Federal rules restrict any use of the information to criminally investigate or prosecute any alcohol or drug abuse patient.[facility] CenterIn the event this information is protected by the Federal Confidentiality of Alcohol and Drug Abuse Patient Records regulations: The Federal rules restrict any use of the information to criminally investigate or prosecute any alcohol or drug abuse patient.[facility] CenterIn the event this information is protected by the Federal Confidentiality of Alcohol and Drug Abuse Patient Records regulations: The Federal rules restrict any use of the information to criminally investigate or prosecute any alcohol or drug abuse patient.[facility] CenterIn the event this information is protected by the Federal Confidentiality of Alcohol and Drug Abuse Patient Records regulations: The Federal rules restrict any use of the information to criminally investigate or prosecute any alcohol or drug abuse patient.[facility] CenterIn the event this information is protected by the Federal Confidentiality of Alcohol and Drug Abuse Patient Records regulations: The Federal rules restrict any use of the information to criminally investigate or prosecute any alcohol or drug abuse patient.[facility] CenterIn the event this information is protected by the Federal Confidentiality of Alcohol and Drug Abuse Patient Records regulations: The Federal rules restrict any use of the information to criminally investigate or prosecute any alcohol or drug abuse patient.[facility] CenterIn the event this information is protected by the Federal Confidentiality of Alcohol and Drug Abuse Patient Records regulations: The Federal rules restrict any use of the information to criminally investigate or prosecute any alcohol or drug abuse patient.[facility] CenterIn the event this information is protected by the Federal Confidentiality of Alcohol and Drug Abuse Patient Records regulations: The Federal rules restrict any use of the information to criminally investigate or prosecute any alcohol or drug abuse patient.[facility] CenterIn the event this information is protected by the Federal Confidentiality of Alcohol and Drug Abuse Patient Records regulations: The Federal rules restrict any use of the information to criminally investigate or prosecute any alcohol or drug abuse patient.[facility] CenterIn the event this information is protected by the Federal Confidentiality of Alcohol and Drug Abuse Patient Records regulations: The Federal rules restrict any use of the information to criminally investigate or prosecute any alcohol or drug abuse patient.[facility] CenterIn the event this information is protected by the Federal Confidentiality of Alcohol and Drug Abuse Patient Records regulations: The Federal rules restrict any use of the information to criminally investigate or prosecute any alcohol or drug abuse patient.[facility] CenterIn the event this information is protected by the Federal Confidentiality of Alcohol and Drug Abuse Patient Records regulations: The Federal rules restrict any use of the information to criminally investigate or prosecute any alcohol or drug abuse patient.[facility] CenterIn the event this information is protected by the Federal Confidentiality of Alcohol and Drug Abuse Patient Records regulations: The Federal rules restrict any use of the information to criminally investigate or prosecute any alcohol or drug abuse patient.[facility] CenterIn the event this information is protected by the Federal Confidentiality of Alcohol and Drug Abuse Patient Records regulations: The Federal rules restrict any use of the information to criminally investigate or prosecute any alcohol or drug abuse patient.[facility] CenterIn the event this information is protected by the Federal Confidentiality of Alcohol and Drug Abuse Patient Records regulations: The Federal rules restrict any use of the information to criminally investigate or prosecute any alcohol or drug abuse patient.[facility] CenterIn the event this information is protected by the Federal Confidentiality of Alcohol and Drug Abuse Patient Records regulations: The Federal rules restrict any use of the information to criminally investigate or prosecute any alcohol or drug abuse patient.[facility] CenterIn the event this information is protected by the Federal Confidentiality of Alcohol and Drug Abuse Patient Records regulations: The Federal rules restrict any use of the information to criminally investigate or prosecute any alcohol or drug abuse patient.[facility] CenterIn the event this information is protected by the Federal Confidentiality of Alcohol and Drug Abuse Patient Records regulations: The Federal rules restrict any use of the information to criminally investigate or prosecute any alcohol or drug abuse patient.[facility] Reason for Visit (unrecogniz ed section and content) Reason Comments Care + test Reason Comments Refill Request Reason Onset Date Comments Refill Request 01/28/2022 Reason Comments Well Woman Specialty Diagnoses / Procedures Referred By Contac t 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 Diagnoses Annual Exam Procedures Annual Exam Sheyla Moreno APRN.CNM [address] [place] [address] [facility] [address] [place] [address] Referral ID Status Reason Start Date Expiration Date Visits Requested Visits Authorized [id number] Denied Financial Clearance Required - OON Payor OON Notification Letter Clearance Not Met - Admin/Biztalk Architect/D irector Advise to Postpone/Resched ule or Not [...] Referred By Contac t Referred To Contact [facility] Diagnoses 8 weeks gestation of (HCC) Procedures OBSTETRIC ULTRASOUND WHI US PREG UTERUS AFTER 1ST TRIMEST GESTATION Leanne Aquino APRN.RAILROAD YARD WORKER [address] [place] [address] Phone: tel: fax: [facility] [address] [place] [address] Referral ID Status Reason Start Date Expiration Date V isits Requested Visits Authorized [id number] Closed Auto-Generate d Referral 08/20/2024 04/06/2025 1 1 Reason Comments Breast Pump Specialty Diagnoses / Procedures Referred By Contac t Referred To Contact [facility] Diagnoses Chronic hypertension in (HCC) 21 weeks gestation of (HCC) Procedures OBSTETRIC ULTRASOUND WHI US PREG UTERUS AFTER 1ST TRIMEST GESTATION Elli Barros MD [address] [place] [address] Phone: tel: fax: [facility] [address] [place] [address] Referral ID Status Reason Start Date Expiration Date Visits Requested Visits Authorized [id number] Authorized Auto-Generat ed Referral 04/07/2024 04/06/2025 5 [...] quants are appropriate? documented in this encounter Care Teams (unrecognized sec tion and content) Tax Credit Leasing Consultant Relationship Specialty Start Date End Date Chiki Gonzales MD PCP - General Family Medicine 08/08/12 Tax Credit Leasing Consultant Relationship Specialty Start Date End Date Chiki Gonzales MD PCP - General Family Medicine 08/08/12 Tax Credit Leasing Consultant Relationship Specialty Start Date End Date Chiki Gonzales MD PCP - General Family Medicine 08/08/12 Tax Credit Leasing Consultant Relationship Specialty Start Date End Date Chiki Gonzales MD PCP - General Family Medicine 08/08/12 Tax Credit Leasing Consultant Relationship Specialty Start Date End Date Chiki Gonzales MD PCP - General Family Medicine 08/08/12 Tax Credit Leasing Consultant Relationship Specialty Start Date End Date Chiki Gonzales MD PCP - General Family Medicine 08/08/12 Tax Credit Leasing Consultant Relationship Specialty Start Date End Date Chiki Gonzales MD PCP - General Family Medicine 08/08/12 Tax Credit Leasing Consultant Relationship Specialty Start Date End Date Chiki Gonzales MD PCP - General Family Medicine 08/08/12 Tax Credit Leasing Consultant Relationship Specialty Start Date End Date Chiki Gonzales MD PCP - General Family Medicine 08/08/12 Tax Credit Leasing Consultant Relationship Specialty Start Date End Date Chiki Gonzales MD PCP - General Family Medicine 08/08/12 Tax Credit Leasing Consultant Relationship Specialty Start Date End Date Chiki Gonzales MD PCP - General Family Medicine 08/08/12 Tax Credit Leasing Consultant Relationship Specialty Start Date End Date Chiki Gonzales MD PCP - General Family Medicine 08/08/12 Tax Credit Leasing Consultant Relationship Specialty Start Date End Date Chiki Gonzales MD PCP - General Family Medicine 08/08/12 Tax Credit Leasing Consultant Relationship Specialty Start Date End Date Chiki Gonzales MD PCP - General Family Medicine 08/08/12 Tax Credit Leasing Consultant Relationship Specialty Start Date End Date Chiki Gonzales MD PCP - General Family Medicine 08/08/12 Tax Credit Leasing Consultant Relationship Specialty Start Date End Date Chiki Gonzales MD PCP - General Family Medicine 08/08/12 Tax Credit Leasing Consultant Relationship Specialty Start Date End Date Chiki Gonzales MD PCP - General Family Medicine 08/08/12 Tax Credit Leasing Consultant Relationship Specialty Start Date End Date Chiki Gonzales MD PCP - General Family Medicine 08/08/12 Tax Credit Leasing Consultant Relationship Specialty Start Date End Date Chiki Gonzales MD PCP - General Family Medicine 08/08/12 Tax Credit Leasing Consultant Relationship Specialty Start Date End Date Chiki Gonzales MD PCP - General Family Medicine 08/08/12 Tax Credit Leasing Consultant Relationship Specialty Start Date End Date Chiki Gonzales MD PCP - General Family Medicine 08/08/12 Tax Credit Leasing Consultant Relationship Specialty Start Date End Date Chiki Gonzales MD PCP - General Family Medicine 08/08/12 Tax Credit Leasing Consultant Relationship Specialty Start Date End Date Chiki Gonzalse MD PCP - General Family Medicine 08/08/12 Tax Credit Leasing Consultant Relationship Specialty Start Date End Date Chiki Gonzales MD PCP - General Family Medicine 08/08/12 Tax Credit Leasing Consultant Relationship Specialty Start Date End Date Chiki Gonzales MD PCP - General Family Medicine 08/08/12 Tax Credit Leasing Consultant Relationship Specialty Start Date End Date Chiki Gonzales MD PCP - General Family Medicine 08/08/12 Tax Credit Leasing Consultant Relationship Specialty Start Date End Date Chiki Gonzales MD PCP - General Family Medicine 08/08/12 Tax Credit Leasing Consultant Relationship Specialty Start Date End Date Chiki Gonzales MD PCP - General Family Medicine 08/08/12 Tax Credit Leasing Consultant Relationship Specialty Start Date End Date Chiki Gonzales MD PCP - General Family Medicine 08/08/12 Tax Credit Leasing Consultant Relationship Specialty Start Date End Date Chiki Gonzales MD PCP - General Family Medicine 08/08/12 Tax Credit Leasing Consultant Relationship Specialty Start Date End Date Chiki Gonzales MD PCP - General Family Medicine 08/08/12 Team Status: Active Member Role/Relationship Status Dates Dr. Chiki Gonzales MD Family Provider Active Dr. Chiki Gonzales MD Primary Care Provider Active Team Status: Inactive Member Role/Relationship Status Dates Dr. Chiki Gonzales MD Primary Care Provider Active Start: December 04, 2024 End: December 06, 2024 Sheyla Moreno CNM Admit Provider Active Start: December 04, 2024 End: December 06, 2024 Sheyla Moreno CNM Attending Provider Active St art: December 04, 2024 End: December 06, 2024 Sheyla Moreno CNM Referring Provider Active St art: December 04, 2024 End: December 06, 2024 Dr. Latesha Elena MD Other Provider Active Sta rt: December 04, 2024 End: December 06, 2024 Team Status: Active Member Role/Relationship Status Dates Dr. Chiki Gonzales MD Primary Care Provider Active Start: December 05, 2024 Sheyla Moreno CNM Admit Provider Active Start: December 05, 2024 Sheyla Moreno CNM Referring Provider Active St art: December 05, 2024 Sheyla Moreno CNM Other Provider Active Start: December 05, 2024 Dr. Latesha Elena MD Attending Provider Active Start: December 05, 2024 Dr. Latesha Elena MD Other Provider Active Sta rt: December 05, 2024 Team Status: Active Member Role/Relationship Status Dates Dr. Chiki Gonzales MD Primary Care Provider Active Start: December 06, 2024 Sheyla Moreno CNM Admit Provider Active Start: December 06, 2024 Sheyla Moreno CNM Referring Provider Active St art: December 06, 2024 Sheyla Moreno CNM Other Provider Active Start: December 06, 2024 Dr. Latesha Elena MD Attending Provider Active Start: December 06, 2024 Dr. Latesha Elena MD Other Provider Active Sta rt: December 06, 2024 INFORMATION SOURCE (unrecogn ized section and content) DATE CREATED AUTHOR 12/05/2024 [facility] DATE CREATED AUTHOR AUTHOR'S ORGANIZ ATION 12/06/2024 [facility] Goals (unrecognized section and content) Goals may be documented in a n alternate section FOR RECORDS PERTAINING TO PATIENTS WHO ARE [...] BE BASED ON THE PRIMARY CLINICAL RECORDS. [facility]. provides no warranty or guarantee of the accuracy or completeness of information in this document.
[2024-12-07 00:58] VITALS: BP 127/68; PULSE 86; O2SAT 98
--- NOTE | 2024-12-07 01:37 | OB.TRI.NOTE ---
HPI - General General Date of Admission: 12/07/24 Date of Service: 12/07/24 Chief Complaint: increased pain HPI Narrative ANA DAVIES, is a 34 F who presents with increased pain since discharge yesterday. Left ureteral stent place for obstructing stone. Pain had improved and then returned to 8/10. Patient was instructed to return to the hospital for increased pain as the stent may not be working. She took oxy at 6pm without much improvement. Tylenol at 11pm that decreased her pain to a 5. No contractions. No bleeding. Still voiding without difficulty. No nausea. Maternal Data Information Final BRITTANY: 01/14/25 Gestational age: 34+4 [facility] Medical History (Updated 12/07/24 @ 01:[address] Polly Hamilton MD) Hydronephrosis Ureteropelvic junction calculus SROM (spontaneous rupture of membranes) Anxiety Home Medications ?Medication ?Instructions ?Recorded ?Last Taken ?Type dripgsdy-[id number] 1 mg 1 tab PO DAILY 01/08/21 12/03/24 History tablet acetaminophen 500 mg tablet 1,000 mg (2 x 500 mg) PO Q6H PRN 01/13/21 12/07/24 Rx PRN Pain 1-10 Or Fever #0 tabs aspirin 81 mg capsule 81 mg PO DAILY 12/04/24 12/06/24 History cephalexin 500 mg capsule 500 mg PO TID #60 caps 12/06/24 Unknown Rx oxycodone 5 mg capsule 5 mg PO Q8H PRN pain 5 days #15 12/06/24 12/06/24 Rx caps Allergy/AdvReac Type Severity Reaction Status Date / Time No Known Allergies Allergy Verified 12/07/24 01:02 Surgical History H/O wisdom tooth extraction Social History Smoking Status: Former smoker History 1 Elective abortions Hx Para 0 Spontaneous abortions Hx # Term Pregnancies Ectopic pregnancies Hx # Pregnancies Multiple births # of living children ROS Constitutional Constitutional: Denies fatigue, fever(s) or malaise Gastrointestinal Gastrointestinal: Denies change in bowel habits Genitourinary Genitourinary: Denies burning urination or genital lesions NST FHR Rate Baby A Baseline: 140 Variability:: Moderate Accelerations:: 15 x 15 Decelerations:: None NST Reactive:: Yes Uterine Activity:: none Assessment & Plan (1) High risk multigravida in third trimester: (2) 34 weeks gestation of : (3) Recurrent UTI (urinary tract infection) complicating : QUALIFIERS: Trimester: third trimester Qualified Code(s): O23.43 - Unspecified infection of urinary tract in , third trimester COMMENT: Ecoli UTI in . (4) Pyelonephritis affecting : QUALIFIERS: Trimester: third trimester Qualified Code(s): O23.03 - Infections of kidney in , third trimester (5) Flank pain, acute: (6) Chronic hypertension affecting : COMMENT: CHTN, no medications (7) Ureteropelvic junction calculus: COMMENT: see urology consult (8) Hydronephrosis: QUALIFIERS: Hydronephrosis type: with ureteropelvic junction obstruction Qualified Code(s): Q62.11 - Congenital occlusion of ureteropelvic junction PLAN: Plan Consult urology in AM
[2024-12-07 03:57] VITALS: BMI 38.0
[2024-12-07 06:10] VITALS: BP 116/56; PULSE 82; RESP 16; TEMP 36.8; O2SAT 91
[2024-12-07 07:12] VITALS: RESP 16; TEMP 36.9
[2024-12-07 07:13] VITALS: BP 108/52; PULSE 98
--- NOTE | 2024-12-07 08:21 | PCM.PN.OB ---
Subjective Subjective Spoke with Dr Elena. Would like renal US with attn to left ureteral stent. Pain di get better over night. Objective Data Objective Data Vital Signs: Vital Signs Temp Pulse Resp BP Pulse Ox 98.5 F 98 16 108/52 L 91 12/07/24 07:12 12/07/24 07:13 12/07/24 07:12 12/07/24 07:13 12/07/24 06:10 Weight: 127 kg Body Mass Index (BMI) 38.0 Assessment & Plan (1) High risk multigravida in third trimester: (2) Hydronephrosis: QUALIFIERS: Hydronephrosis type: with ureteropelvic junction obstruction Qualified Code(s): Q62.11 - Congenital occlusion of ureteropelvic junction (3) Ureteropelvic junction calculus: COMMENT: see urology consult (4) Chronic hypertension affecting : COMMENT: CHTN, no medications (5) Recurrent UTI (urinary tract infection) complicating : QUALIFIERS: Trimester: third trimester Qualified Code(s): O23.43 - Unspecified infection of urinary tract in , third trimester COMMENT: Ecoli UTI in .
--- NOTE | 2024-12-07 08:23 | US_ITS ---
PROCEDURE: KIDNEY AND BLADDER 12/07/2024 REASON FOR EXAM: INCREASED PAIN Left renal calculus. TECHNIQUE: Procedure Code: USKI Modality: US Procedure: KIDNEY AND BLADDER COMPARISON: December 04, 2024 FINDINGS: Kidneys: Right kidney is 12.3 x 5.9 x 5.2 cm, while the left is 15.4 x 7.3 x 6.6 cm. [place]: No collecting system dilation on the right side. However, the left kidney is associated with moderate hydronephrosis. In the proximal ureter there is an echogenic calculus measuring 16 mm. A stent is seen in the bladder distally, but the stent is not seen proximally; positioning should be confirmed. Cysts or Masses: None Other: Spleen is mildly enlarged at 14.9 cm in length. US/Kidney and Bladder IMPRESSION: Calculus in the proximal ureter on the left with moderate hydronephrosis. The calculus has not significantly moved in position. See above description Reading Location: [id number]
== END 2024-12-07 11:33 | disposition home or self-care (01) ==
LOC: WPOUT 00:49 → WP 00:49
PROVIDERS: PCP Family Medicine; Referring Provider Obstetrics & Gynecology; Visit Provider Obstetrics & Gynecology
DX: O23.03 Infections of kidney in pregnancy, third trimester (principal); Q62.11 Congenital occlusion of ureteropelvic junction; O10.013 Pre-existing essential hypertension complicating pregnancy, third trimester; Z3A.34 34 weeks gestation of pregnancy; O99.893 Other specified diseases and conditions complicating puerperium; Z87.891 Personal history of nicotine dependence; B96.20 Unspecified Escherichia coli [E. coli] as the cause of diseases classified elsewhere
CPT/HCPCS: 59025; 59050; 76770; 99221; G0378

== ENCOUNTER 2024-12-08 05:47 | Day surgery (SDC) | payer BC, SELFPAY ==
[2024-12-08] VITALS (10 sets, daily range): BP systolic 119–130; BP diastolic 61–79; PULSE 74–100; RESP 14–16; TEMP 36.1–37.1; O2SAT 98–100; BMI 37.3
--- OUTSIDE RECORDS SUMMARY | 2024-12-08 05:51 | XMS RPT_ITS | CCD ---
Author Organization [facility] Care Team Providers Care Ceiling Cleaner Name Role Phone Chiki Gonzales Primary Care [...] Unavailable GONZALES, CHIKI R Primary Care Unavailable KEINA, LEANNE Referring Unavailable POLLY HAMILTON Attending Unavailable [...] Other Provider Sheyla Moreno CNM Other Provider Kassy STAUFFER, Dr. Charlton Attending Provider Alfonso STAUFFER, Dr. Matias Attending Provider [phone] Alfonso STAUFFER, Dr. Matias Referring Provider [phone] Polly Hamilton Referring Unavailable Chiki Gonzales Primary Care Unavailable Polly Hamilton Attending Unavailable Latesha Elena Referring Unavailable Latesha Elena Attending Unavailable Madison Butler Primary Care Unavailable Chiki Gonzales Primary Care Unavailable Sheyla Moreno Referring Unavailable Sheyla Moreno Admitting Unavailable Latesha Elena Consulting Unavailable Latesha Elena Attending Unavailable Sheyla Moreno Consulting Unavailable Luz Maria Morenoica Admitting Unavailable Chiki Gonzales Primary Care Unavailable Sheyla Moreno Attending Unavailable Sheyla Moreno Referring Unavailable Latesha Elena Consulting Unavailable Medications Current Medications Medication Drug Class(es) Dates Sig (Normalized) Sig (Original) acetaminophen 500 mg oral tablet (2 sources) Start: 01-13-2021 take 1-10 tablets by mouth [...] primary doctor cephalexin 500 mg oral capsule (4 sources) Cephalosporin Antibacterial Start: 12-06-2024 take 1 [...] Active labetalol hydrochloride 300 mg oral tablet (5 sources) beta-Adrenergic Collette Start: 02-26-2021 End: 02-11-2022 [...] tablet by julisa th three times daily. norethindrone 0.35 mg oral tablet (13 sources) Start: End: take 1 tablet by mouth once daily [...] daily. oxyCODONE hydrochloride 5 mg oral capsule (2 sources) Opioid Agonist Start: 5 take 1 capsule by mouth every eight hours as needed for pain Oxycodone 5 mg capsule Active 5 mg PO Q8H as needed for pain 15 5 0 December 06, 2024 Calculus in pelviureteric junction Calculus of ureter Rmjqbuhz-Elh-Nr-Fa 1 mg Tablet (2 sources) Start: take 1 tablet by mouth once daily Ztpemven-Nuw-Wf-Fa 1 mg Tablet Active 1 {tbl} PO [...] mg/ml / menthol 5 mg/ml topical spray (2 sources) Standardized Chemical Allergen Start: 01-13-2021 End: 12-04-2024 [...] Start: 04-09-2023 take 1 tablet by julisa once daily norgestimate 0.25 mg-ethinyl estradiol 35 mcg (SPRINTEC) 0.25-35 mg-mcg per tablet Take 1 tablet by mouth once daily. 84 tablet 3 04/09/2023 Active ferrous sulfate 325 mg oral tablet (8 sources) Start: 01-13-2021 End: 12-04-2024 take 1 tablet by mouth once daily Ferrous Sulfate (Iron) 325 mg (65 mg iron) Tablet Discontinued 325 mg PO DAILY 30 0 January 13, 2021 7:01am December 04, 2024 [...] dose nasal spray (1 source) Corticosteroid Start: 013 take 2 spray(s) nasal route once daily at bedtime fluticasone 50 mcg/actuation nasal spray Use 2 Sprays in each nostril daily at bedtime. 1 Bottle 0 08/08/2012 Active Comment on above: Use 2 Sprays in each nostril daily at bedtime. hydrOXYzine hydrochloride 25 mg oral tablet (2 sources) Antihistamine End: take 1 tablet by mouth every eight hours as needed hydrOXYzine HCl (ATARAX) 25 mg tablet Take 25 mg by mouth three times a day as needed for anxiety. 06/07/2024 Discontinued ibuprofen 600 mg oral tablet (2 sources) Nonsteroidal Anti-inflammatory Drug Start: End: take 1 tablet by mouth every six hours as needed for pain Ibuprofen 600 mg Tablet Discontinued 600 mg PO EVERY 6 HOURS NEEDED as needed for Pain Score 1-3 30 0 January 13, 2021 12:00am December 04, 2024 11:02am nitrofurantoin, macrocrystals 25 mg / nitrofurantoin, monohydrate 75 mg oral capsule (14 sources) Nitrofuran Antibacterial Start: End: take 1 capsule by mouth twice daily nitrofurantoin monohydrate and macrocrystal (MACROBID) 100 mg capsule Indications: UTI (urinary tract infection) in , antepartum (HCC) Take 1 capsule by mouth two times a day for 7 days. 14 capsule 10/27/2024 11/03/2024 Active Start: 09-07-2024 End: 01-05-2025 take 1 capsule by mouth once daily Nitrofurantoin Monohyd/M-Cryst (Macrobid) 100 mg capsule Discontinued 100 mg PO DAILY December 04, 2024 12:00am December 06, 2024 11:33pm UTI Start: 09-07-2024 End: 09-14-2024 take 1 [...] 7 days. 14 capsule 06/09/2024 06/16/2024 Active Mcbsnhao-Kn-Ips-Fe-FA ( VITAMIN) tab (9 sources) take 1 tablet by mouth once Uvpukqxw-Ev-Xwk-Fe-FA ( VITAMIN) tab Take 1 tablet by mouth. 0 Active Comment on above: Take 1 tablet by julisa th. Problems Active Problems Problem Classification Problem Date Documented Date Episodic/Chronic Abdominal pain (7 sources) Flank pain; Translations: [Unspecified abdominal pain] Onset: 12-07-2024 12-04-2024 Episodic Acute posthemorrhagic anemia (2 sources) Acute posthemorrhagic anemia; Translations: [Acute posthemorrhagic anemia] 01-13-2021 Episodic Anxiety disorders (20 sources) Generalized anxiety disorder; Translations: [Generalized anxiety disorder] 06-07-2024 Chronic Calculus of urinary tract (7 sources) Calculus in pelviureteric junction ; Translations: [Calculus of ureter] Onset: 12-07-2024 12-05-2024 Episodic Comment on above: see urology consult, NPO after midnight in anticipation of surgery. Increase IVF to `100cc/hr when NPO see urology consult Contraceptive and procreative management (3 sources) Oral contraception; Translations: [Encounter for surveillance of contraceptive pills] Episodic Esophageal disorders (1 source) Gastro-esophageal reflux disease without esophagitis; Translations: [Gastroesophageal reflux disease, unspecified whether esophagitis present] Onset: 11-08-2024 Chronic Genitourinary congenital anomalies (2 sources) Congenital occlusion of ureteropelvic junction; 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] Onset: 12-07-2024 Chronic Genitourinary symptoms and ill-defined conditions (1 [...] Chronic OB-related trauma to perineum and vulva (2 sources) First degree perineal laceration; Translations: [First degree perineal laceration during delivery] 01-11-2021 Episodic Open wounds of extremities (2 sources) Laceration of right thumb; Translations: [Laceration without foreign body of right thumb without damage to nail, initial encounter] 04-06-2019 Episodic Other complications of ; puerperium affecting management of mother (2 sources) Meconium in amniotic fluid affecting management of [...] Will likely change antibiotics when d/rosemary home Ecoli UTI in pregnan cy. Other complications of (1 source) Supervision of high risk , unspecified, unspecified trimester; Translations: [, supervision, high-risk, unspecified trimester ([facility])] Onset: 10-27-2024 Episodic Other complications of (1 source) Supervision of high risk , unspecified, second trimester; Translations: [Supervision of high risk in second trimester ([facility])] Onset: 11-08-2024 Episodic Other complications of (3 sources) Unspecified infection of urinary tract in , unspecified trimester; Translations: [UTI (urinary tract infection) in , antepartum ([facility])] Onset: 10-27-2024 Episodic Other complications of (5 sources) Pyelonephritis in ; Translations: [Infections of kidney in , unspecified trimester] 12-05-2024 Episodic Comment on above: Cefepime 1gr IVPB. W ill transition to oral Bactrim. CT showed stone and hydronephrosis. Consult w/ Dr. Elena-plan for surgery todayWith stone and plan for surgery and suspected pylo- culture pending will change status to full admission. Other complications of (2 sources) Supervision of with grand multiparity, third trimester; Translations: [Supervision of with grand multiparity, third trimester] Onset: 12-07-2024 Episodic Other complications of (1 source) Unspecified infection of urinary tract in , third trimester; Translations: [Unspecified infection of urinary tract in , third trimester] Onset: 12-07-2024 Episodic Other complications of (1 source) Infections of kidney in , third trimester; Translations: [Infections of kidney in , third trimester] Onset: 12-07-2024 Episodic Other complications of (2 sources) Infections of kidney in , unspecified trimester; Translations: [Infections of kidney in , unspecified trimester] Onset: 12-07-2024 Episodic Other diseases of kidney and ureters (5 sources) Hydronephrosis; Translations: [Unspecified hydronephrosis] 12-05-2024 Episodic Comment on above: plan stent tomorrow w/ urology then d/c home Other diseases of kidney and ureters (2 sources) Unspecified hydronephrosis; Translations: [Unspecified hydronephrosis] Onset: 12-07-2024 Episodic Other nutritional; endocrine; and metabolic disorders (20 sources) Body mass index 30+ - obesity; Translations: [Body mass index (BMI) 38.0-38.9, adult] Onset: 06-07-2024 06-07-2024 Chronic Other nutritional; endocrine; and metabolic disorders (1 source) Body mass index (BMI) 38.0-38.9, adult; Translations: [BMI 38.0-38.9,adult] Onset: 06-07-2024 Chronic Other and delivery including normal (4 sources) with uncertain dates; Translations: [Encounter for supervision of normal , unspecified, unspecified trimester] Onset: 06-07-2024 06-07-2024 Episodic Comment on above: PPD #3 Other screening for suspected conditions (not mental disorders or infectious disease) (5 sources) Cancer cervix screening status; Translations: [Encounter for screening for malignant neoplasm of cervix] Onset: 06-07-2024 06-07-2024 Episodic Polyhydramnios and other problems of amniotic cavity (2 sources) Spontaneous rupture of membranes 01-21-2021 Episodic Comment [...] (HCC)] Onset: 09-27-2024 Episodic Residual codes; unclassified (5 sources) Gestation period, 34 weeks; Translations: [34 weeks gestation of ] 12-04-2024 Episodic Residual codes; unclassified (2 sources) 34 weeks gestation of ; Translations: [34 weeks gestation of ] Onset: 12-07-2024 Episodic Unclassified (20 sources) [facility] Education [...] of ; Translations: [16 weeks gestation of (HCC)] Onset: 08-02-2024 Episodic Residual codes; unclassified (2 sources) 8 weeks gestation of ; Translations: [8 weeks gestation of (HCC)] Onset: 06-07-2024 Episodic Screening and history of mental health and substance abuse codes (20 sources) H/O: anxiety state; Translations: [Personal history of other mental and behavioral disorders] Onset: 06-08-2020 Resolved: 10-27-2024 06-08-2020 Episodic Results Test Name Value Interpretation Reference Range Facility Kidney and Bladderon 025 Kidney and Bladder [facility] Imaging Services [address] [place] [address] Kidney and Bladder MR#: [id number] Acct: [id number] Name: HILLARY FRAIRE Rep #: [id number] : 1990 F 34 From: Ricardo Meza MD PCP: Dr. Chiki Gonzales MD Status: REG CLI Study: Kidney and Bladder Date of Exam: 12/07/24 Exam# [id number] Ordering Dr: Polly Hamilton MD PROCEDURE: KIDNEY AND BLADDER 12/07/2024 REASON FOR EXAM: INCREASED PAIN Left renal calculus. TECHNIQUE: Procedure Code: USKI Modality: US Procedure: KIDNEY AND BLADDER COMPARISON: December 04, 2024 FINDINGS: Kidneys: Right kidney is 12.3 x 5.9 x 5.2 cm, while the left is 15.4 x 7.3 x 6.6 cm. Sheldahl: No collecting system dilation on the right side. However, the left kidney is associated with moderate hydronephrosis. In the proximal ureter there is an echogenic calculus measuring 16 mm. A stent is seen in the bladder distally, but the stent is not seen proximally; positioning should be confirmed. Cysts or Masses: None Other: Spleen is mildly enlarged at 14.9 cm in length. US/Kidney and Bladder IMPRESSION: Calculus in the proximal ureter on the left with moderate hydronephrosis. The calculus has not significantly moved in position. See above description [id number] CC: Dr. Polly Hamilton MD; Dr. Chiki Gonzales MD Net Washer: Signed Normal [facility] OB Triage Physician Noteon 0 12-07-2024 OB Triage Physician Note [facility] Medical Records Department [address] [place] [address] OB Triage Physician Note 12/07/24 0137 MR#: [id number] Acct: [id number] Name: HILLARY FRAIRE Rep #: [id number] : 1990 34 From: Polly Hamilton MD PCP: Dr. Chiki Gonzales MD Status:REG CLI Y Location: [id number] HPI - General General Date of Admission: 12/07/24 Date of Service: 12/07/24 Chief Complaint: increased pain HPI Narrative HILLARY FRAIRE, is a 34 F who presents with increased pain since discharge yesterday. Left ureteral stent place for obstructing stone. Pain had improved and then returned to 8/10. Patient was instructed to return to the hospital for increased pain as the stent may not be working. She took oxy at 6pm without much improvement. Tylenol at 11pm that decreased her pain to a 5. No contractions. No bleeding. Still voiding without difficulty. No nausea. Maternal Data Information Final BRITTANY: 01/14/25 Gestational age: 34+4 PFSH PFSH Medical History (Updated 12/07/24 @ 01:[address] Polly Hamilton MD) Hydronephrosis Ureteropelvic junction calculus SROM (spontaneous rupture of membranes) Anxiety Home Medications ???Medication ???Instructions ???Recorded ???Last Taken ???Type kvxkaspl-bdv-Gh-FA 1 mg 1 tab PO DAILY 01/08/21 12/03/24 History tablet acetaminophen 500 mg tablet 1,000 mg (2 x 500 mg) PO Q6H PRN 1 12/07/24 Rx PRN Pain 1-10 Or Fever #0 tabs aspirin 81 mg capsule 81 mg PO DAILY 12/04/24 12/06/24 H istory cephalexin 500 mg capsule 500 mg PO TID #60 caps 12/06/24 Un known Rx oxycodone 5 mg capsule 5 mg PO Q8H PRN pain 5 days #15 12/06/24 Rx caps Allergy/AdvReac Type Severity Reaction Status Date / Time No Known Allergies Allergy Verified 12/07/24 01:02 Surgical History H/O wisdom tooth extraction Social History Smoking Status: Former smoker History 1 Elective abortions Hx Para 0 Spontaneous abortions Hx # Term Pregnancies Ectopic pregnancies Hx # Pregnancies Multiple births # of living children ROS Constitutional Constitutional: Denies fatigue, fever(s) or malaise Gastrointestinal Gastrointestinal: Denies change in bowel habits Genitourinary Genitourinary: Denies burning urination or genital lesions NST FHR Rate Baby A Baseline: 140 Variability:: Moderate Accelerations:: 15 x 15 Decelerations:: None NST Reactive:: Yes Uterine Activity:: none Assessment Plan (1) High risk multigravida in third trimester: (2) 34 weeks gestation of : (3) Recurrent UTI (urinary tract infection) complicating : QUALIFIERS: Trimester: third trimester Qualified Code(s): O23.43 - Unspecified infection of urinary tract in , third trimester COMMENT: Ecoli UTI in . (4) Pyelonephritis affecting : QUALIFIERS: Trimester: third trimester Qualified Code(s): O23.03 - Infections of kidney in , third trimester (5) Flank pain, acute: (6) Chronic hypertension affecting : COMMENT: CHTN, no medications (7) Ureteropelvic junction calculus: COMMENT: see urology consult (8) Hydronephrosis: QUALIFIERS: Hydronephrosis type: with ureteropelvic junction obstruction Qualified Code(s): Q62.11 - Congenital occlusion of ureteropelvic junction PLAN: Plan Consult urology in 12/07/24 0145 Date Polly Hamilton MD Cosigner Signature (if applicable): Date _ CC: Dr. Polly Hamilton MD; Dr. Chiki Gonzales MD Signed Normal [facility] Absolute lymphocyte countOrd ered By: Adina Krueger on 12-06-2024 Lymphocytes Auto (Unsp spec) [#/Vol] 1.84 10*3/uL 0.83-4.51 [facility] Absolute neutrophil countOrd ered By: Adina Krueger on 12-06-2024 Neutrophils (Bld) [#/Vol] 11.6 10*3/uL High 2.0-7.7 [facility] Automated lymphocyte count a s percentage of total leukocytesOrdered By: Adina Krueger on 12-06-2024 Lymphocytes/100 WBC Auto (Unsp spec) 12.4 % Low 19-41 [facility] Basophil percentageOrdered B y: Adina Krueger on 12-06-2024 Basophils/100 WBC (Bld) 0.2 % 0-[address] [facility] CBC W/Diff, Automatedon Absolute Lymph 1.84 X10 3/uL Normal 0.83-4.51 [facility] Comment on above: Performed By: #### L 100.0100 #### [facility] [address] [place], [address] Absolute Neut 11.6 X10 3/uL High 2.0-7.7 [facility] Comment on above: Performed By: #### L 100.0100 #### [facility] [address] [place], [address] Basophils/100 WBC (Bld) 0.2 % Normal 0-[address] [facility] Comment on above: Performed By: #### L 100.0100 #### [facility] [address] [place], [address] Eosinophils/100 WBC (Bld) 0.2 % Normal 0-5 [facility] Comment on above: Performed By: #### L 100.0100 #### [facility] [address] [place], [address] Erythrocyte distribution width (RBC) [Ratio] 13.1 % Normal 11.6-14.6 [facility] Comment on above: Performed By: #### L 100.0100 #### [facility] [address] [place], [address] Hematocrit (Bld) [Volume fraction] 27.3 % Low 37-47 [facility] Comment on above: Performed By: #### L 100.0100 #### [facility] [address] [place], [address] Hemoglobin (Bld) [Mass/Vol] 9.1 g/dL Low 12.0-15.0 [facility] Comment on above: Performed By: #### L 100.0100 #### [facility] [address] [place], [address] IG% 0.900 Normal 0.0-0.9 [facility] Comment on above: Result Comment: IG% - Immature Granulocytes (promyelocytes, myelocytes and metamyelocytes) > 1% indicates that a LEFT SHIFT is Present. Performed By: #### L 100.0100 #### [facility] [address] [facility] [place], [address] Lymphocytes/100 WBC (Bld) 12.4 % Low 19-41 [facility] Comment on above: Performed By: #### L 100.0100 #### [facility] [address] [facility] [place], [address] MCH (RBC) [Entitic mass] 30.3 pg Normal 27.0-32.0 [facility] Comment on above: Performed By: #### L 100.0100 #### [facility] [address] [place], [address] MCHC (RBC) [Mass/Vol] 33.3 g/dL Normal 32-36 [facility] Comment on above: Performed By: #### L 100.0100 #### [facility] [address] [place], [address] MCV (RBC) [Entitic vol] 91.0 fL Normal 81-99 [facility] Comment on above: Performed By: #### L 100.0100 #### [facility] [address] [place], [address] Monocytes/100 WBC (Bld) 8.0 % Normal 0-[address] [facility] Comment on above: Performed By: #### L 100.0100 #### [facility] [address] [place], [address] Neutrophils/100 WBC (Bld) 78.3 % High 47-70 [facility] Comment on above: Performed By: #### L 100.0100 #### [facility] [address] [place], [address] Nucleated RBC (Bld) [#/Vol] 0 10*3/uL Normal 0-5 [facility] Comment on above: Performed By: #### L 100.0100 #### [facility] [address] [place], [address] Platelet mean volume (Bld) [Entitic vol] 11.9 fL Normal 6.2-12.0 [facility] Comment on above: Performed By: #### L 100.0100 #### [facility] [address] [place], [address] Platelets (Bld) [#/Vol] 167 10*3/uL Normal 150-450 [facility] Comment on above: Performed By: #### L 100.0100 #### [facility] [address] [place], [address] RBC (Bld) [#/Vol] 3.00 10*6/uL Low 4.2-5.4 [facility] Comment on above: Performed By: #### L 100.0100 #### [facility] [address] [place], [address] RDW SD 42.8 fl Normal 35.1-43.9 [facility] Comment on above: Performed By: #### L 100.0100 #### [facility] [address] [place], [address] WBC (Bld) [#/Vol] 14.8 10*3/uL High 4.4-11.0 [facility] Comment on above: Performed By: #### L 100.0100 #### [facility] [address] [place], [address] Eosinophil percentageOrdered By: Adina Krueger on 12-06-2024 Eosinophils/100 WBC (Bld) 0.2 % 0-5 [facility] Erythrocyte distribution wid th ratioOrdered By: Adina Krueger on 12-06-2024 Erythrocyte distribution width (RBC) [Ratio] 13.1 % 11.6-14.6 [facility] Erythrocyte distribution wid th standard deviationOrdered By: Adina Krueger on 12-06-2024 Erythrocyte distribution width (RBC) [Ratio] 42.8 fl 35.1-43.9 [facility] Hematocrit Auto (Bld) [Volum e fraction]Ordered By: Adina Krueger on 12-06-2024 Hematocrit (Bld) [Volume fraction] 27.3 % Low 37-47 [facility] Hemoglobin measurementOrdere d By: Adina Krueger on 12-06-2024 Hemoglobin (Bld) [Mass/Vol] 9.1 g/dL Low 12.0-15.0 [facility] Immature granulocytes/100 WB C Auto (Bld)Ordered By: Adina Krueger on 12-06-2024 Immature granulocytes/100 WBC (Bld) 0.900 % 0.0-0.9 [facility] Comment on above: IG% - Immature Granu locytes (promyelocytes, myelocytes and metamyelocytes) > 1% indicates that a LEFT SHIFT is Present. MCV (mean corpuscular volume ) determinationOrdered By: Adina Krueger on 12-06-2024 MCV (RBC) [Entitic vol] 91.0 fL 81-[address] [facility] MR/POSTOP.ANEon 12-06-2024 MR/POSTOP.ANE [facility] Medical Records Department [address] [place] [address] Anesthesia Postop Eval I 12/06/24 1045 MR#: [id number] Acct: [id number] Name: HILLARY FRAIRE Rep #: [id number] : 1990 34 From: Darryl Harvey MD PCP: Dr. Chiki Gonzales MD Status:ADM IN Y Race: C [id number] Anesthesia: Postop Eval I Current Vital Signs [...] Yes 12/06/24 1348 Date [facility]: Date CC: Signed Normal [facility] MR/[id number] 12-06-2024 [facility] Medical Records Department [address] [place] [id number] Anesthesia Postop Eval II 12/06/24 1047 MR#: [id number] Acct: [id number] Name: HILLARY FRAIRE Rep #: [id number] : 1990 34 From: Darryl Harvey MD PCP: Dr. Chiki Gonzales MD Status:ADM IN Y Race: C [facility] Anest[facility] Postop Eval I Sum Postop Eval [...] Anesthesia Complication: No 12/06/24 1048 Date Darryl Arnold Signature: Date CC: Signed Normal [facility] Mean corpuscular hemoglobin (MCH) determinationOrdered By: Adina Krueger on 12-06-2024 MCH (RBC) [Entitic mass] 30.3 pg 27.0-32.0 [facility] Mean corpuscular hemoglobin concentration (MCHC) determinationOrdered By: Adina Krueger on 12-06-2024 MCHC (RBC) [Mass/Vol] 33.3 g/dL 32-36 [facility] Mean platelet volume determi nationOrdered By: Adina Krueger on 12-06-2024 Platelet mean volume (Bld) [Entitic vol] 11.9 fL 6.2-12.0 [facility] Monocyte percentageOrdered B y: Adina Krueger on 12-06-2024 Monocytes/100 WBC (Bld) 8.0 % 0-[address] [facility] Neutrophil percentageOrdered By: Adina Krueger on 12-06-2024 Neutrophils/100 WBC (Bld) 78.3 % High 47-70 [facility] Nucleated red blood cell per centageOrdered By: Adina Krueger on 12-06-2024 Nucleated RBC/100 WBC (Bld) [Ratio] 0 % 0-5 [facility] Operative Reporton 5 Operative Report [facility] Medical Records Department [address] [place] [address] Operative Report 12/06/24 1007 MR#: [id number] Acct: [id number] Name: HILLARY FRAIRE Rep #: [id number] : 1990 34 From: Latesha Elena MD PCP: Dr. Chiki Gonzales MD Status:ADM IN Location: [place] [address] Operative Report (Standard) Operative Information Date of Procedure: 12/06/24 Pre-Operative Diagnosis: Left ureteropelvic junction stone with obstruction and urinary tract infection Post-Operative Diagnosis: Same Surgery/Procedure Performed: Cystoscopy with left ureteral stent insertion rooming house operator: No Type of Anesthesia: Spinal RN Documented Start/Stop Times: Operation Date: 12/06/24 10:10 Case Time Anesthesia Start 12/06/24 10:08 Into Room 12/06/24 10:08 Procedure Start 12/06/24 10:23 Procedure End 12/06/24 10:29 Anesthesia End 12/06/24 10:37 Out of Room 12/06/24 10:37 Into Recovery 12/06/24 10:41 Procedure Start Time: 10:23 Procedure Stop Time: 10:29 Select all DRAINS/GRAFTS/IMPLAN TS that apply: Drains Drain details: 4.5 Samoan x 28 cm JJ stent Estimated Blood [...] stone in the renal pelvis. A 4.5 Samoan 28 cm stent was placed over the wire with good positioning in the renal pelvis as well as the urinary bladder. At this time the bladder was emptied and the cystoscope was removed. She was awakened and taken to the recovery room in good condition. There were no complications during this procedure. Surgical Findings: 4.5 Samoan x 28 cm JJ stent Complications Complications: No Admit VTE Documentation VTE Present on Admission: Yes VTE Mechan Device Prophylaxis: SCD's VTE Pharm Prophylaxis ordered?: No Reason prophylaxis not ordered: Treatment Not Indicated 12/06/24 1048 Cosigner Signature (if applicable): CC: THADDEUS Moreno; Dr. Latesha Elena MD; Dr. Chiki Gonzales MD Signed Normal [facility] Platelet countOrdered By: Melody Krueger on 12-06-2024 Platelets (Bld) [#/Vol] 167 10*3/uL 150-450 [facility] RBC Auto (Bld) [#/Vol]Ordere d By: Adina Krueger on 12-06-2024 RBC (Bld) [#/Vol] 3.00 10*6/uL Low 4.2-5.4 [facility] Urine Cultureon 12-06-2024 URC Escherichia coli [place] Count 11,000-25,000 Escherichia coli: REACTION Ampicillin Islt [...] TMP SMX Islt CELESTINO <=20 S Normal [facility] Comment on above: Performed By: #### L 400.0001, M100.2200 #### [facility] [address] [place], [address] White blood cell (WBC) count Ordered By: Adina Krueger on 12-06-2024 WBC (Bld) [#/Vol] 14.8 10*3/uL High 4.4-11.0 [facility] OB Triage Physician Noteon 0 12-05-2024 OB Triage Physician Note [facility] Medical Records Department [address] [place] [address] OB Triage Physician Note 12/05/24 1333 MR#: [id number] Acct: [id number] Name: HILLARY FRAIRE Rep #: [id number] : 1990 34 From: Adina Krueger MD PCP: Dr. Chiki Gonzales MD Status:ADM IN Location: [place] [address] HPI - General General Date of Admission: [...] Medications ???Medication ???Instructions ???Recorded ???Last Taken ???Type lielilse-umi-Dk-FA 1 mg 1 tab PO DAILY 01/08/21 [...] frequently. SCDs for VTE prophylaxis 12/05/24 1357 Date Adina Krueger MD Cosigner Signature (if [...] Dr. Adina Krueger MD * Signed Normal [facility] Abdomen/Pelvis without Conto n 12-04-2024 Abdomen/Pelvis without Cont [facility] Imaging Services [address] [place] [id number] Abdomen/Pelvis without Cont MR#: [id number] Acct: [id number] Name: HLILARY FRAIRE Rep #: [id number] : 1990 F 34 From: Breezy Paige MD PCP: Dr. Chiki Gonzales MD Status: REG CLI Study: Abdomen/Pelvis without Cont Date of Exam: 11/07 Exam# [id number] Ordering Dr: Sheyla Moreno CNM PROCEDURE: ABDOMEN/PELVIS [...] x 11 mm. Left-sided hydronephrosis. [facility] CC: THADDEUS Moreno; Dr. Chiki Gonzales MD Net Washer: Signed Normal [facility] Bilirubin Test strip Ql (U)O rdered By: Sheyla Moreno on 12-04-2024 Bilirubin Ql (U) Negative Negative [facility] CBC W/Diff, Automatedon 11-07 Absolute Lymph 1.65 X10 3/uL Normal 0.83-4.51 [facility] Comment on above: Performed By: #### L 100.0100 #### [facility] [address] [place], [address] Absolute Neut 11.2 X10 3/uL High 2.0-7.7 [facility] Comment on above: Performed By: #### L 100.0100 #### [facility] [address] [place], [address] Basophils/100 WBC (Bld) 0.3 % Normal 0-[address] [facility] Comment on above: Performed By: #### L 100.0100 #### [facility] [address] [place], [address] Eosinophils/100 WBC (Bld) 0.1 % Normal 0-5 [facility] Comment on above: Performed By: #### L 100.0100 #### [facility] [address] [place], [address] Erythrocyte distribution width (RBC) [Ratio] 12.7 % Normal 11.6-14.6 [facility] Comment on above: Performed By: #### L 100.0100 #### [facility] [address] [place], [address] Hematocrit (Bld) [Volume fraction] 32.2 % Low 37-47 [facility] Comment on above: Performed By: #### L 100.0100 #### [facility] [address] [place], [address] Hemoglobin (Bld) [Mass/Vol] 11.0 g/dL Low 12.0-15.0 [facility] Comment on above: Performed By: #### L 100.0100 #### [facility] [address] [place], [address] IG% 0.900 Normal 0.0-0.9 [facility] Comment on above: Result Comment: IG% - Immature Granulocytes (promyelocytes, myelocytes and metamyelocytes) > 1% indicates that a LEFT SHIFT is Present. Performed By: #### L 100.0100 #### [facility] [address] [place], [address] Lymphocytes/100 WBC (Bld) 12.0 % Low 19-41 [facility] Comment on above: Performed By: #### L 100.0100 #### [facility] [address] [place], [address] MCH (RBC) [Entitic mass] 30.8 pg Normal 27.0-32.0 [facility] Comment on above: Performed By: #### L 100.0100 #### [facility] [address] [place], [address] MCHC (RBC) [Mass/Vol] 34.2 g/dL Normal 32-36 [facility] Comment on above: Performed By: #### L 100.0100 #### [facility] [address] [place], [address] MCV (RBC) [Entitic vol] 90.2 fL Normal 81-99 [facility] Comment on above: Performed By: #### L 100.0100 #### [facility] [address] [place], [address] Monocytes/100 WBC (Bld) 5.4 % Normal 0-10 [facility] Comment on above: Performed By: #### L 100.0100 #### [facility] [address] [place], [address] Neutrophils/100 WBC (Bld) 81.3 % High 47-70 [facility] Comment on above: Performed By: #### L 100.0100 #### [facility] [address] [place], [address] Nucleated RBC (Bld) [#/Vol] 0 10*3/uL Normal 0-5 [facility] Comment on above: Performed By: #### L 100.0100 #### [facility] [address] [place], [address] Platelet mean volume (Bld) [Entitic vol] 11.8 fL Normal 6.2-12.0 [facility] Comment on above: Performed By: #### L 100.0100 #### [facility] [address] [place], [address] Platelets (Bld) [#/Vol] 185 10*3/uL Normal 150-450 [facility] Comment on above: Performed By: #### L 100.0100 #### [facility] [address] [place], [address] RBC (Bld) [#/Vol] 3.57 10*6/uL Low 4.2-5.4 [facility] Comment on above: Performed By: #### L 100.0100 #### [facility] [address] [place], [address] RDW SD 41.8 fl Normal 35.1-43.9 [facility] Comment on above: Performed By: #### L 100.0100 #### [facility] [address] [place], [address] WBC (Bld) [#/Vol] 13.8 10*3/uL High 4.4-11.0 [facility] Comment on above: Performed By: #### L 100.0100 #### [facility] [address] [place], [address] CNPNon 12-04-2024 CNPN Telephone (GYNMN) HILLARY FRAIRE ([id number]) 1990 F Date Time Provider Department 12/04/24 AMISHA ALBERTO GYNMT During your visit today, we recorded the following information about you: Amisha Alberto MD 12/04/2024 1:45 PM Addendum Telephone Encounter Hillary Fraire [id number] Provider: Dr. Baltazar Patient identity verified by [...] Date 12/04/2024 Noted Resolved Spotting in early ([facility]) [O26.859] 06/08/2020 10/27/2024 Obesity in ([facility]) [O99.210] 06/08/2020 10/27/2024 Nausea and vomiting during [...] Status:Closed by AMISHA ALBERTO on 12/04/24 Normal [facility] Glomerular filtration rate ( GFR) estimation/1.73 sq m using serum, plasma, or whole bOrdered By: Sheyla Moreno on 12-04-2024 GFR/1.73 sq M.predicted among non-blacks MDRD (S/P/Bld) [Vol rate/Area] 76 mL/min/{1.73_m2} >60 [facility] Comment on above: mL/min/1.73m2 CKD-EP I Creatinine Equation (2020) Ketones Test strip Ql (U)Ord ered By: Sheyla Moreno on 12-04-2024 Ketones Ql (U) Negative Negative [facility] Microscopic analysis of urin e for red blood cells (RBC)Ordered By: Sheyla Moreno on 12-04-2024 Microscopic analysis of urine for red blood cells (RBC) 0-5 SEEN /hpf 0-5 [facility] Mucus LM Ql (Urine sed)Order ed By: Sheyla Moreno on 12-04-2024 Mucus Ql (Urine sed) 0 SEEN /hpf [facility] Nitrite Test strip Ql (U)Ord ered By: Sheyla Moreno on 12-04-2024 Nitrite Ql (U) Negative Negative [facility] OB Triage Physician Noteon 0 12-04-2024 OB Triage Physician Note [facility] Medical Records Department [address] [place] [address] OB Triage Physician Note 12/04/24 1131 MR#: [id number] Acct: [id number] Name: HILLARY FRAIRE Rep #: [id number] : 1990 34 From: Sheyla SINGH PCP: Dr. Chiki Gonzales MD Status:REG CLI Y Location: LC606-8 HPI - General General Date of Service: [...] prophylaxis. Maternal Data Information Final BRITTANY: 01/14/25 [facility] Medical History (Updated 12/04/24 @ 12:46 by Sheyla Moreno CNM) SROM (spontaneous rupture of membranes) Anxiety Home Medications ???Medication ???Instructions ???Recorded ???Last Taken ???Type ednykand-sdn-Yw-FA 1 mg 1 tab PO DAILY 01/08/21 [...] person Tonia (more content not included)... Normal [facility] Protein Test strip Ql (U)Ord ered By: Sheyla Moreno on 12-04-2024 Protein Ql (U) 15 mg/dl High Negative [facility] Serum Creatinine AND GFRon 0 12-04-2024 Creatinine [Mass/Vol] 1.00 mg/dL Normal 0.70-1.20 [facility] Comment on above: Performed By: #### L 501.1105 #### [facility] [address] [place], [address] ECRCL 118.54 ml/min Normal 50-250 [facility] Comment on above: Performed By: #### L 501.1105 #### [facility] [address] [place], [address] GFR/1.73 sq M.predicted among non-blacks MDRD (S/P/Bld) [Vol rate/Area] 76 mL/min/{1.73_m2} Normal >60 [facility] Comment on above: Result Comment: mL/m in/1.73m2 CKD-EPI Creatinine Equation (2020) Performed By: #### L 501.1105 #### [facility] [address] [place], [address] Serum creatinine measurement (mass/volume)Ordered By: Sheyla Moreno on 12-04-2024 Creatinine [Mass/Vol] 1.00 mg/dL 0.70-1.20 [facility] Squamous epithelial cells de tection in urine sediment by light microscopyOrdered By: Sheyla Moreno on 12-04-2024 Epithelial cells.squamous LM Ql (Urine sed) 0-5 SEEN /hpf 5-10 [facility] Urinalysis, Completeon 12-04 EPI,SQUAMOUS 0-5 SEEN Normal 5-10 [facility] Comment on above: Order Comment: CLEAN CATCH Performed By: #### L 400.0001, #### [facility] [address] [facility] [place], [address] RBC 0-5 SEEN Normal 0-5 [facility] Comment on above: Order Comment: CLEAN CATCH Performed By: #### L 400.0001, #### [facility] [address] [place], [address] WBC 5-10 SEEN Normal 0-5 [facility] Comment on above: Order Comment: CLEAN CATCH Performed By: #### L 400.0001, #### [facility] [address] [place], [address] BACTERIA 0 SEEN Normal None Seen [facility] Comment on above: Order Comment: CLEAN CATCH Performed By: #### L 400.0001, #### [facility] [address] [place], [address] Mucus Ql (Urine sed) 0 SEEN Normal [facility] Comment on above: Order Comment: CLEAN CATCH Performed By: #### L 400.0001, M100.2200 #### [facility] [address] [place], [address] Urine clarityOrdered By: Alessandra Moreno on 12-04-2024 Clarity (U) Sl. Cloudy Clear [facility] Urine color determinationOrd ered By: Sheyla Moreno on 12-04-2024 Color (U) Yellow Yellow [facility] Urine cultureOrdered By: Alessandra Moreno on 12-04-2024 Bacteria identified Cx Nom (U) Escherichia coli Abnormal [facility] Urine glucose detectionOrder ed By: Sheyla Moreno on 12-04-2024 Glucose Ql (U) Normal mg/dl Normal [facility] Urine leukocyte esterase det ection by dipstickOrdered By: Sheyla Moreno on 12-04-2024 Leukocyte esterase Test strip Ql (U) 25 /ul High Negative [facility] Urine pHOrdered By: Sheyla Moreno on 12-04-2024 pH (U) 7.0 [pH] 5.0 - 8.0 [facility] Urine sediment bacteria coun t by microscopy (number/high power field)Ordered By: Sheyla Moreno on 12-04-2024 Bacteria LM.HPF (Urine sed) [#/Area] 0 /[HPF] None Seen [facility] Urine specific gravity measu rementOrdered By: Sheyla Moreno on 12-04-2024 Specific gravity (U) [Rel density] 1.015 1.002-1.030 [facility] Urine urobilinogen measureme ntOrdered By: Sheyla Moreno on 12-04-2024 Urobilinogen Ql (U) 1 mg/dl High Normal [facility] White blood cell countOrdere d By: Sheyla Moreno on 12-04-2024 White blood cell count 5-10 SEEN /hpf 0-5 [facility] CBC W Auto Differential pane l (Bld)on 11-26-2024 Basophils (Bld) [#/Vol] 0.03 10*3/uL Normal <0.11 [facility] Comment on above: Order Comment: Speci men Type: BLOOD SPECIMENOrdering Facility: [facility] Address: [address] [place] [address] Performed By: #### 6 30-4 #### [facility] CLIA [id number] [address] [place] [address] [place] Basophils/100 WBC (Bld) 0.2 % Normal [facility] Comment on above: Order Comment: Speci men Type: BLOOD SPECIMENOrdering Facility: [facility] Address: [address] [place] [address] Performed By: #### 6 30-4 #### [facility] CLIA [id number] [address] [place] [address] [place] Differential cell count method Nom (Bld) Auto Normal [facility] Comment on above: Order Comment: Speci men Type: BLOOD SPECIMENOrdering Facility: [facility] Address: [address] [place] [address] Performed By: #### 6 30-4 #### [facility] CLIA [id number] [address] [place] [address] [place] Eosinophils (Bld) [#/Vol] 0.07 10*3/uL Normal <0.46 [facility] Comment on above: Order Comment: Speci men Type: BLOOD SPECIMENOrdering Facility: [facility] Address: [address] [place] [address] Performed By: #### 6 30-4 #### [facility] CLIA [id number] [address] [place] [address] [place] Eosinophils/100 WBC (Bld) 0.6 % Normal [facility] Comment on above: Order Comment: Speci men Type: BLOOD SPECIMENOrdering Facility: [facility] Address: [address] [place] [address] Performed By: #### 6 30-4 #### [facility] CLIA [id number] [address] [place] [address] [place] Erythrocyte distribution width (RBC) [Ratio] 13.0 % Normal 11.5-15.0 [facility] Comment on above: Order Comment: Speci men Type: BLOOD SPECIMENOrdering Facility: [facility] Address: [address] [place] [address] Performed By: #### 6 30-4 #### [facility] CLIA [id number] [address] [place] [address] [place] Hematocrit (Bld) [Volume fraction] 32.7 % Low 36.0-46.0 [facility] Comment on above: Order Comment: Speci men Type: BLOOD SPECIMENOrdering Facility: [facility] Address: [address] [place] [address] Performed By: #### 6 30-4 #### [facility] CLIA [id number] [address] [place] [address] [place] Hemoglobin (Bld) [Mass/Vol] 11.0 g/dL Low 11.5-15.5 [facility] Comment on above: Order Comment: Speci men Type: BLOOD SPECIMENOrdering Facility: [facility] Address: [address] [place] [address] Performed By: #### 6 30-4 #### [facility] CLIA [id number] [address] [place] [address] [place] Immature granulocytes (Bld) [#/Vol] 0.08 10*3/uL Normal <0.10 [facility] Comment on above: Order Comment: Speci men Type: BLOOD SPECIMENOrdering Facility: [facility] Address: [address] [place] [address] Performed By: #### 6 30-4 #### [facility] CLIA [id number] [address] [place] [address] [place] Immature granulocytes/100 WBC (Bld) 0.7 % Normal [facility] Comment on above: Order Comment: Speci men Type: BLOOD SPECIMENOrdering Facility: [facility] Address: [address] [place] [address] Performed By: #### 6 30-4 #### [facility] CLIA [id number] [address] [place] [address] [place] Lymphocytes (Bld) [#/Vol] 2.15 10*3/uL Normal 1.00-4.00 [facility] Comment on above: Order Comment: Speci men Type: BLOOD SPECIMENOrdering Facility: [facility] Address: [address] [place] [address] Performed By: #### 6 30-4 #### [facility] CLIA [id number] [address] [place] [address] [place] Lymphocytes/100 WBC (Bld) 17.7 % Normal [facility] Comment on above: Order Comment: Speci men Type: BLOOD SPECIMENOrdering Facility: [facility] Address: [address] [place] [address] Performed By: #### 6 30-4 #### [facility] CLIA [id number] [address] [place] [address] [place] MCH (RBC) [Entitic mass] 30.6 pg Normal 26.0-34.0 [facility] Comment on above: Order Comment: Speci men Type: BLOOD SPECIMENOrdering Facility: [facility] Address: [address] [place] [address] Performed By: #### 6 30-4 #### [facility] CLIA [id number] [address] [place] [address] [place] MCHC (RBC) [Mass/Vol] 33.6 g/dL Normal 30.5-36.0 [facility] Comment on above: Order Comment: Speci men Type: BLOOD SPECIMENOrdering Facility: [facility] Address: [address] [place] [address] Performed By: #### 6 30-4 #### [facility] CLIA [id number] [address] [place] [address] [place] MCV (RBC) [Entitic vol] 90.8 fL Normal 80.0-100.0 [facility] Comment on above: Order Comment: Speci men Type: BLOOD SPECIMENOrdering Facility: [facility] Address: [address] [place] [address] Performed By: #### 6 30-4 #### [facility] CLIA [id number] [address] [place] [address] [place] Monocytes (Bld) [#/Vol] 0.69 10*3/uL Normal <0.87 [facility] Comment on above: Order Comment: Speci men Type: BLOOD SPECIMENOrdering Facility: [facility] Address: [address] [place] [address] Performed By: #### 6 30-4 #### [facility] CLIA [id number] [address] [place] [address] [place] Monocytes/100 WBC (Bld) 5.7 % Normal [facility] Comment on above: Order Comment: Speci men Type: BLOOD SPECIMENOrdering Facility: [facility] Address: [address] [place] [address] Performed By: #### 6 30-4 #### [facility] CLIA [id number] [address] [place] [address] [place] Neutrophils (Bld) [#/Vol] 9.16 10*3/uL High 1.45-7.50 [facility] Comment on above: Order Comment: Speci men Type: BLOOD SPECIMENOrdering Facility: [facility] Address: [address] [place] [address] Performed By: #### 6 30-4 #### [facility] CLIA [id number] [address] [place] [address] [place] Neutrophils/100 WBC (Bld) 75.1 % Normal [facility] Comment on above: Order Comment: Speci men Type: BLOOD SPECIMENOrdering Facility: [facility] Address: [address] [place] [address] Performed By: #### 6 30-4 #### [facility] CLIA [id number] [address] [place] [address] [place] Nucleated RBC (Bld) [#/Vol] 10*3/uL Normal <0.01 [facility] Comment on above: Order Comment: Speci men Type: BLOOD SPECIMENOrdering Facility: [facility] Address: [address] [place] [address] Performed By: #### 6 30-4 #### [facility] CLIA [id number] [address] [place] [address] [place] Nucleated RBC/100 WBC (Bld) [Ratio] 0.0 /100 WBC Normal [facility] Comment on above: Order Comment: Speci men Type: BLOOD SPECIMENOrdering Facility: [facility] Address: [address] [place] [address] Performed By: #### 6 30-4 #### [facility] CLIA [id number] [address] [place] [address] [place] Platelet mean volume (Bld) [Entitic vol] 11.1 fL Normal 9.0-12.7 [facility] Comment on above: Order Comment: Speci men Type: BLOOD SPECIMENOrdering Facility: [facility] Address: [address] [place] [address] Performed By: #### 6 30-4 #### [facility] CLIA [id number] [address] [place] [address] [place] Platelets (Bld) [#/Vol] 223 10*3/uL Normal 150-400 [facility] Comment on above: Order Comment: Speci men Type: BLOOD SPECIMENOrdering Facility: [facility] Address: [address] [place] [address] Performed By: #### 6 30-4 #### [facility] CLIA [id number] [address] [place] [address] [place] RBC (Bld) [#/Vol] 3.60 10*6/uL Low 3.90-5.20 [facility] Comment on above: Order Comment: Speci men Type: BLOOD SPECIMENOrdering Facility: [facility] Address: [address] [place] [address] Performed By: #### 6 30-4 #### [facility] CLIA [id number] [address] [place] [address] [place] WBC (Bld) [#/Vol] 12.18 10*3/uL High 3.70-11.00 [facility] Comment on above: Order Comment: Speci men Type: BLOOD SPECIMENOrdering Facility: [facility] Address: [address] [place] [address] Performed By: #### 6 30-4 #### [facility] CLIA [id number] [address] [place] [address] [place] Examination level ultrasound on 11-26-2024 [facility] Radiology Study observation (narrative) [facility] Bacteria Ur Culton Bacteria identified Cx Nom [...] , Intermediate >32 , Resistant >64 Abnormal [facility] Comment on above: Performed By: #### 2 276-4, 45217-8 #### [facility] CLIA [id number] [address] [place] [address] [place] Demario 10-29-2024 DIMITRIOS Telephone (OBGYWM) HILLARY FRAIRE ([id number]) 1990 F Date Time Provider Department 10/29/24 KELLY BALTAZAR During your visit today, we recorded the following information about you: Karina Severino, HAL 10/29/2024 10:35 AM Signed Breast pump order received from [address] To SW to sign. HAL Young [...] Encounter Status:Closed by STACI HO on 10/29/24 [facility] Bacteria Ur Culton Bacteria identified [...] , Intermediate >32 , Resistant >64 Abnormal [facility] Comment on above: Performed By: #### 2 276-4, 52151-6 #### [facility] CLIA [id number] [address] [place] [address] [place] CBC W Auto Differential pane l (Bld)on 10-25-2024 Basophils (Bld) [#/Vol] 10*3/uL Normal <0.11 [facility] Comment on above: Order Comment: Speci men Type: FLUID SPECIMEN Ordering Facility: [facility] Address: [address] [place] [address] Performed By: #### L [id number] #### [facility] CLIA [id number] [address] [place] [address] [place] Basophils/100 WBC (Bld) 0.2 % Normal [facility] Comment on above: Order Comment: Speci men Type: FLUID SPECIMEN Ordering Facility: [facility] Address: [address] [place] [address] Performed By: #### L [id number] #### [facility] CLIA [id number] [address] [place] [address] [place] Differential cell count method Nom (Bld) Auto Normal [facility] Comment on above: Order Comment: Speci men Type: FLUID SPECIMEN Ordering Facility: [facility] Address: [address] [place] [address] Performed By: #### L [id number] #### [facility] CLIA [id number] [address] [place] [address] [place] Eosinophils (Bld) [#/Vol] 0.05 10*3/uL Normal <0.46 [facility] Comment on above: Order Comment: Speci men Type: FLUID SPECIMEN Ordering Facility: [facility] Address: [address] [place] [address] Performed By: #### L [id number] #### [facility] CLIA [id number] [address] [place] [address] [place] Eosinophils/100 WBC (Bld) 0.4 % Normal [facility] Comment on above: Order Comment: Speci men Type: FLUID SPECIMEN Ordering Facility: [facility] Address: [address] [place] [address] Performed By: #### L [id number] #### [facility] CLIA [id number] [address] [place] [address] [place] Erythrocyte distribution width (RBC) [Ratio] 12.7 % Normal 11.5-15.0 [facility] Comment on above: Order Comment: Speci men Type: FLUID SPECIMEN Ordering Facility: [facility] Address: [address] [place] [address] Performed By: #### L [id number] #### [facility] CLIA [id number] [address] [place] [address] [place] Hematocrit (Bld) [Volume fraction] 32.0 % Low 36.0-46.0 [facility] Comment on above: Order Comment: Speci men Type: FLUID SPECIMEN Ordering Facility: [facility] Address: [address] [place] [address] Performed By: #### L [id number] #### [facility] CLIA [id number] [address] [place] [address] [place] Hemoglobin (Bld) [Mass/Vol] 10.8 g/dL Low 11.5-15.5 [facility] Comment on above: Order Comment: Speci men Type: FLUID SPECIMEN Ordering Facility: [facility] Address: [address] [place] [address] Performed By: #### L [id number] #### [facility] CLIA [id number] [address] [place] [address] [place] Immature granulocytes (Bld) [#/Vol] 0.06 10*3/uL Normal <0.10 [facility] Comment on above: Order Comment: Speci men Type: FLUID SPECIMEN Ordering Facility: [facility] Address: [address] [place] [address] Performed By: #### L [id number] #### [facility] CLIA [id number] [address] [place] [address] [place] Immature granulocytes/100 WBC (Bld) 0.5 % Normal [facility] Comment on above: Order Comment: Speci men Type: FLUID SPECIMEN Ordering Facility: [facility] Address: [address] [place] [address] Performed By: #### L [id number] #### [facility] CLIA [id number] [address] [place] [address] [place] Lymphocytes (Bld) [#/Vol] 2.11 10*3/uL Normal 1.00-4.00 [facility] Comment on above: Order Comment: Speci men Type: FLUID SPECIMEN Ordering Facility: [facility] Address: [address] [place] [address] Performed By: #### L [id number] #### [facility] CLIA [id number] [address] [place] [address] [place] Lymphocytes/100 WBC (Bld) 17.1 % Normal [facility] Comment on above: Order Comment: Speci men Type: FLUID SPECIMEN Ordering Facility: [facility] Address: [address] [place] [address] Performed By: #### L [id number] #### [facility] CLIA [id number] [address] [place] [address] [place] MCH (RBC) [Entitic mass] 30.3 pg Normal 26.0-34.0 [facility] Comment on above: Order Comment: Speci men Type: FLUID SPECIMEN Ordering Facility: [facility] Address: [address] [place] [address] Performed By: #### L [id number] #### [facility] CLIA [id number] [address] [place] [address] [place] MCHC (RBC) [Mass/Vol] 33.8 g/dL Normal 30.5-36.0 [facility] Comment on above: Order Comment: Speci men Type: FLUID SPECIMEN Ordering Facility: [facility] Address: [address] [place] [address] Performed By: #### L [id number] #### [facility] CLIA [id number] [address] [place] [address] [place] MCV (RBC) [Entitic vol] 89.9 fL Normal 80.0-100.0 [facility] Comment on above: Order Comment: Speci men Type: FLUID SPECIMEN Ordering Facility: [facility] Address: [address] [place] [address] Performed By: #### L [id number] #### [facility] CLIA [id number] [address] [place] [address] [place] Monocytes (Bld) [#/Vol] 0.59 10*3/uL Normal <0.87 [facility] Comment on above: Order Comment: Speci men Type: FLUID SPECIMEN Ordering Facility: [facility] Address: [address] [place] [address] Performed By: #### L [id number] #### [facility] CLIA [id number] [address] [place] [address] [place] Monocytes/100 WBC (Bld) 4.8 % Normal [facility] Comment on above: Order Comment: Speci men Type: FLUID SPECIMEN Ordering Facility: [facility] Address: [address] [place] [address] Performed By: #### L [id number] #### [facility] CLIA [id number] [address] [place] [address] [place] Neutrophils (Bld) [#/Vol] 9.50 10*3/uL High 1.45-7.50 [facility] Comment on above: Order Comment: Speci men Type: FLUID SPECIMEN Ordering Facility: [facility] Address: [address] [place] [address] Performed By: #### L [id number] #### [facility] CLIA [id number] [address] [place] [address] [place] Neutrophils/100 WBC (Bld) 77.0 % Normal [facility] Comment on above: Order Comment: Speci men Type: FLUID SPECIMEN Ordering Facility: [facility] Address: [address] [place] [address] Performed By: #### L [id number] #### [facility] CLIA [id number] [address] [place] [address] [place] Nucleated RBC (Bld) [#/Vol] 10*3/uL Normal <0.01 [facility] Comment on above: Order Comment: Speci men Type: FLUID SPECIMEN Ordering Facility: [facility] Address: [address] [place] [address] Performed By: #### L [id number] #### [facility] CLIA [id number] [address] [place] [address] [place] Nucleated RBC/100 WBC (Bld) [Ratio] 0.0 /100 WBC Normal [facility] Comment on above: Order Comment: Speci men Type: FLUID SPECIMEN Ordering Facility: [facility] Address: [address] [place] [address] Performed By: #### L [id number] #### [facility] CLIA [id number] [address] [place] [address] [place] Platelet mean volume (Bld) [Entitic vol] 11.5 fL Normal 9.0-12.7 [facility] Comment on above: Order Comment: Speci men Type: FLUID SPECIMEN Ordering Facility: [facility] Address: [address] [place] [address] Performed By: #### L [id number] #### [facility] CLIA [id number] [address] [place] [address] [place] Platelets (Bld) [#/Vol] 223 10*3/uL Normal 150-400 [facility] Comment on above: Order Comment: Speci men Type: FLUID SPECIMEN Ordering Facility: [facility] Address: [address] [place] [address] Performed By: #### L [id number] #### [facility] CLIA [id number] [address] [place] [address] [place] RBC (Bld) [#/Vol] 3.56 10*6/uL Low 3.90-5.20 [facility] Comment on above: Order Comment: Speci men Type: FLUID SPECIMEN Ordering Facility: [facility] Address: [address] [place] [address] Performed By: #### L [id number] #### [facility] CLIA [id number] [address] [place] [address] [place] WBC (Bld) [#/Vol] 12.33 10*3/uL High 3.70-11.00 [facility] Comment on above: Order Comment: Speci men Type: FLUID SPECIMEN Ordering Facility: [facility] Address: [address] [place] [address] Performed By: #### L [id number] #### [facility] CLIA [id number] [address] [place] [address] [place] Examination level ultrasound on 10-25-2024 [facility] Radiology Study observation (narrative) [facility] Ferritin SerPl-mCncon 2024 Ferritin [Mass/Vol] 31.2 ng/mL Normal 14.7-205.1 [facility] Comment on above: Order Comment: Speci men Type: BLOOD SPECIMEN Ordering Facility: [facility] Address: [address] [place] [address] Performed By: #### 2 276-4, 25731-9 #### [facility] CLIA [id number] [address] [place] [address] [place] GESTATIONAL GLUCOSE SCREEN, 1-HOUR, 50 GRAM, NON-FASTINGon 10-25-2024 Glucose [Mass/Vol] 120 mg/dL Normal 74-134 [facility] Comment on above: Order Comment: Anat ahmadi Type: FLUID SPECIMEN Ordering Facility: [facility] Address: [address] [place] [address] Result Comment: [facility] Congress of Obstetricians and Gynecologists (Piotr/Primo) guidelines state a gestational diabetes mellitus positive screen is made, in women not previously diagnosed with overt diabetes, when the 1 hr plasma glucose level is equal to or above 140 mg/dL. [facility] [employer] [facility] recommends a 135 mg/dL cutoff. Performed By: #### L [id number] #### [facility] CLIA [id number] [address] [place], [place] [address] [place] Iron and Iron binding capaci ty panelon 10-25-2024 Iron [Mass/Vol] 41 ug/dL Normal 41-186 [facility] Comment on above: Order Comment: Speci men Type: BLOOD SPECIMEN Ordering Facility: [facility] Address: [address] [place] [address] Performed By: #### 2 276-4, 12010-7 #### [facility] CLIA [id number] [address] [place] [address] [place] Iron binding capacity [Mass/Vol] 453 ug/dL High 232-386 [facility] Comment on above: Order Comment: Speci men Type: BLOOD SPECIMEN Ordering Facility: [facility] Address: [address] [place] [address] Performed By: #### 2 276-4, 20647-6 #### [facility] CLIA [id number] [address] [place] [address] [place] Iron/TIBC [Molar ratio] 9.1 % Low 15.0-57.0 [facility] Comment on above: Order Comment: Speci men Type: BLOOD SPECIMEN Ordering Facility: [facility] Address: [address] [place] [address] Performed By: #### 2 276-4, 41668-9 #### [facility] CLIA [id number] [address] [place] [address] [place] Reagin and Treponema pallidu m IgG and IgM [Interp]on 10-25-2024 T. pallidum IgG+IgM IA Ql (S) Non-Reactive Normal Nonreactive [facility] Comment on above: Order Comment: Speci men Type: BLOOD SPECIMENOrdering Facility: [facility] Address: [address] [place] [address] Performed By: #### 6 30-4 #### [facility] CLIA [id number] [address] [place] [address] [place] Reagin+T pallidum IgG+IgM Se rPl-Impon 10-25-2024 Reagin and Treponema pallidum IgG and IgM [Interp] Cannot exclude recent Treponemal infection if specimen collected within 7-10 days after appearance of suspect lesions or 2-3 weeks after an exposure. Clinical correlation is required. Normal [facility] Comment on above: Order Comment: Speci men Type: BLOOD SPECIMENOrdering Facility: [facility] Address: [address] [place] [address] Performed By: #### 6 30-4 #### [facility] CLIA [id number] [address] [place] [address] [place] [address] [place] Bacteria Ur [...] , Intermediate >32 , Resistant >64 Abnormal [facility] Comment on above: Performed By: #### 2 276-4, 58345-8 #### [facility] CLIA [id number] [address] [place] [address] Examination level ultrasound on 09-05-2024 Indication Detailed [...] 14 oz EFW by: Hadlock (HC-AC-FL) Extended Sole Dyer 5.3 mm CM 3.5 mm 6% Nicolaides [...] normal LVOT view: normal 3-vessel view: normal 0-dhzsjh-ztomady view: normal Heart / Thorax Situs: situs [...] Read By: Jessica Banerjee M.D. MATERNAL MEDICINE [facility] Bacteria Ur Culton 5 Bacteria identified [...] , Intermediate >32 , Resistant >64 Abnormal [facility] Comment on above: Performed By: #### 2 276-4, 87323-3 #### [facility] CLIA [id number] [address] [place] [address] [place] Examination level ultrasound on 09-03-2024 Radiology Study observation (narrative) [facility] UA DIP, URINE (POC)on 2024 BILIRUBIN UA (POCT) Negative Negative [facility] CLARITY UA (POCT) Cloudy [facility] COLOR UA (POCT) Dark yellow [facility] GLUCOSE UA (POCT) Negative Negative mg/dL [facility] Hemoglobin Ql (U) Negative Negative [facility] Interpretation and review of laboratory results Abnormal [facility] KETONE UA (POCT) Negative Negative mg/dL [facility] LEUKOCYTES UA (POCT) Trace Abnormal Negative [facility] NITRITE UA (POCT) Positive Abnormal Negative [facility] PH UA (POCT) 7.5 4.5 - 8.0 [facility] Protein Ql (U) Negative Negative mg/dL [facility] SPECIFIC GRAVITY UA (POCT) 1.015 1.005 - 1.030 [facility] UROBILINOGEN UA (POCT) 2 Abnormal Normal E.U./d L [facility] Location:[facility], [address], [place], [address] [facility] POINT OF CARE [facility] Bacteria Ur Culton 5 Bacteria identified [...] , Intermediate >32 , Resistant >64 Abnormal [facility] Comment on above: Performed By: #### 6 30-4 #### [facility] CLIA [id number] [address] [place] [address] OF [facility] CNPNon 07-08-2024 CNPN Telephone (OBGYWM) HILLARY FRAIRE ([id number]) 1990 F Date Time Provider Department 07/08/24 KELLY BALTAZAR During your visit today, we [...] Encounter Status:Closed by KELLY BALTAZAR on 07/08/24 [facility] Bacteria Ur Culton Bacteria identified [...] , Intermediate >32 , Resistant >64 Abnormal [facility] Comment on above: Performed By: #### 2 276-4, 70772-8 #### [facility] CLIA [id number] [address] [place] [address] [place] Examination level ultrasound on 07-05-2024 Indication First trimester anatomic survey Maternal obesity, BMI >35 Impression REMOTE READ The patient is referred for a first trimester anatomy scan including nuchal translucency measurement as clinically indicated. - Single, live, intrauterine . - [place] rump length measurement is consistent with the [...] view: normal 4-chamber view with color: normal 9-erowqh-lipfarx view: normal Abdominal cord insertion: normal Stomach: [...] Read By: Marbella Mcgee M.D. MATERNAL MEDICINE [facility] Radiology Study observation (narrative) [facility] Hepatic function 2000 panelO rdered By: Ashley Lemus on 07-05-2024 Albumin [Mass/Vol] 4.1 g/dL 3.9 - 4.9 g/dL [facility] ALP [Catalytic activity/Vol] 71 U/L 34 - 123 U/L [facility] ALT [Catalytic activity/Vol] 11 U/L 7 - 38 U/L [facility] AST [Catalytic activity/Vol] 8 U/L Low 13 - 35 U/L [facility] Bilirubin [Mass/Vol] 0.4 mg/dL 0.2 - 1 .3 mg/dL [facility] Bilirubin.conjugated [Mass/Vol] 0.1 mg/dL NINF - 0.3 mg/dL [facility] Interpretation and review of laboratory results Abnormal [facility] Protein [Mass/Vol] 7.3 g/dL 6.3 - 8.0 g/dL [facility] Hepatic function 2000 panelo n 07-05-2024 Albumin [Mass/Vol] 4.1 g/dL Normal 3.9-4.9 [facility] Comment on above: Order Comment: Speci men Type: BLOOD SPECIMENOrdering Facility: [facility] Address: [address] [place] [address] Performed By: #### 6 30-4 #### [facility] CLIA [id number] [address] [place] [address] [place] ALP [Catalytic activity/Vol] 71 U/L Normal 34-123 [facility] Comment on above: Order Comment: Speci men Type: BLOOD SPECIMENOrdering Facility: [facility] Address: [address] [place] [address] Performed By: #### 6 30-4 #### [facility] CLIA [id number] [address] [place] [address] [place] ALT [Catalytic activity/Vol] 11 U/L Normal 7-38 [facility] Comment on above: Order Comment: Speci men Type: BLOOD SPECIMENOrdering Facility: [facility] Address: [address] [place] [address] Performed By: #### 6 30-4 #### [facility] CLIA [id number] [address] [place], [place] [address] [place] AST [Catalytic activity/Vol] 8 U/L Low 13-35 [facility] Comment on above: Order Comment: Speci men Type: BLOOD SPECIMENOrdering Facility: [facility] Address: [address] [place] [address] Performed By: #### 6 30-4 #### [facility] CLIA [id number] [address] [place], [place] [address] [place] Bilirubin [Mass/Vol] 0.4 mg/dL Normal 0.2-1.3 [facility] Comment on above: Order Comment: Speci men Type: BLOOD SPECIMENOrdering Facility: [facility] Address: [address] [place] [address] Performed By: #### 6 30-4 #### [facility] CLIA [id number] [address] [place] [address] [place] Bilirubin.conjugated [Mass/Vol] 0.1 mg/dL Normal <0.3 [facility] Comment on above: Order Comment: Speci men Type: BLOOD SPECIMENOrdering Facility: [facility] Address: [address] [place] [address] Performed By: #### 6 30-4 #### [facility] CLIA [id number] [address] [place] [address] [place] Protein [Mass/Vol] 7.3 g/dL Normal 6.3-8.0 [facility] Comment on above: Order Comment: Speci men Type: BLOOD SPECIMENOrdering Facility: [facility] Address: [address] [place] [address] Performed By: #### 6 30-4 #### [facility] CLIA [id number] [address] [place], [place] [address] [place] [id number] PLUSon 07-05-2024 Cell-free DNA./Cell-free DNA.total Dosage of chromosome-specific cfDNA (cfDNA) [Molar fraction] 15% Normal [facility] Comment on above: Order Comment: Speci men Type: FLUID SPECIMEN Ordering Facility: [facility] Address: [address] [place] [address] Performed By: #### L [id number] #### [facility] CLIA [id number] [address] [place] [address] OF [place] Chr 13+18+21+X+Y aneuploidy Dosage of chromosome-specific cfDNA Ql (cfDNA) Negative Normal [facility] Comment on above: Order Comment: Speci men Type: FLUID SPECIMEN Ordering Facility: [facility] Address: [address] [place] [address] Performed By: #### L [id number] #### [facility] CLIA [id number] [address] [place] [address] [place] Chr 21 trisomy Dosage of chromosome-specific cfDNA Ql (cfDNA) Negative Normal [facility] Comment on above: Order Comment: Speci men Type: FLUID SPECIMEN Ordering Facility: [facility] Address: [address] [place] [address] Performed By: #### L [id number] #### [facility] CLIA [id number] [address] [place] [address] [place] Chr X and Y aneuploidy risk Sequencing Ql (cfDNA) [Interp] Not detected Normal [facility] Comment on above: Order Comment: Speci men Type: FLUID SPECIMEN Ordering Facility: [facility] Address: [address] [place] [address] Result Comment: Not Detected Not Detected Performed By: #### L [id number] #### [facility] CLIA [id number] [address] [place] [address] [place] Citation Pranav (Reference lab test) Comment Normal [facility] Comment on above: Order Comment: Speci men Type: FLUID SPECIMEN Ordering Facility: [facility] Address: [address] [place] [address] Result Comment: 1. P manoj ESCALONA et al. [place] Med. 2012;14(3):296-305. 2. Benedicto BURNETT et al. Prenat Diag. 2013;33(6):591-597. 3. Stephen C, et al. Clin Chem. 2015 Apr;61(4):608-616. 4. Keenan ESCALONA, et al. [place] Med. 2011;13(11):913-920. 5. ACOG/[facility] Practice Bulletin No. 226, Jan 2020. Performed By: #### L [id number] #### [facility] CLIA [id number] [address] [place] [address] [place] Gestational age Estimated from conception date Mariano Normal [facility] Comment on above: Order Comment: Speci men Type: FLUID SPECIMEN Ordering Facility: [facility] Address: [address] [place] [address] Performed By: #### L [id number] #### [facility] CLIA [id number] [address] [place] [address] [place] GESTATIONALAGE AGE > OR = 9W Yes Normal [facility] Comment on above: Order Comment: Katlini galdino Type: FLUID SPECIMEN [facility] [facility] Address: [address] [place] [address] Performed By: #### L [id number] #### [facility] CLIA [id number] [address] [place] [address] [place] Laboratory comment Pranav (Report) Comment Normal [facility] Comment on above: Order Comment: Speci galdino Type: FLUID SPECIMEN Ordering Facility: [facility] Address: [address] [place] [address] Result Comment: The MaterniT(R) 21 PLUS laboratory-developed test (LDT) analyzes circulating cell-free DNA from a maternal blood sample. This test is used for screening purposes and not diagnostic. Clinical correlation is recommended. Validation data on twin pregnancies is limited and the ability of this test to detect aneuploidy in higher multiple gestations has not yet been validated. Performed By: #### L [id number] #### [facility] CLIA [id number] [address] [place] [address] director television news name Nom (Provider) Comment Normal [facility] Comment on above: Order Comment: Speci men Type: FLUID SPECIMEN Ordering Facility: [facility] Address: [address] [place] [address] Result Comment: This specimen showed an expected representation of chromosome 21, 18 and 13 material. Clinical correlation is suggested. Comment Sav Atwood MD, PhD, Director, [employer] Performed By: #### L [id number] #### [facility] CLIA [id number] [address] [place] [address] LIMITATIONS OF THE TEST Comment Normal [facility] Comment on above: Order Comment: Speci men Type: FLUID SPECIMEN Ordering Facility: [facility] Address: [address] [place] [address] Result Comment: Lesly arreguin the results of [...] Clexane(R) and Fragmin(R)). Performed By: #### L [id number] #### [facility] CLIA [id number] [address] [place] [address] [place] Monosomy X risk Dosage of chromosome-specific cfDNA Ql (Plasma cell-free+WBC DNA) [Interp] Not detected Normal [facility] Comment on above: Order Comment: Speci men Type: FLUID SPECIMEN Ordering Facility: [facility] Address: [address] [place] [address] Performed By: #### L [id number] #### [facility] CLIA [id number] [address] [place] [address] [place] NEGATIVE PREDICTIVE VALUE Note Normal [facility] Comment on above: Order Comment: Speci men Type: FLUID SPECIMEN Ordering Facility: [facility] Address: [address] [place] [address] Result Comment: The Negative Predictive Value (NPV) for trisomy 21, 18, and 13 is greater than 99%. The NPV for SCA and ESS cannot be calculated as SCA and ESS are only reported when an abnormality is detected. Performed By: #### L [id number] #### [facility] CLIA [id number] [facility] [place] [id number] [facility] PERFORMANCE CHARACTERISTICS Note Normal [facility] Comment on above: Order Comment: Anat ahmadi Type: FLUID SPECIMEN Ordering Facility: [facility] Address: [address] [place] [id number] Result Comment: ! Sex ! Accuracy: 99.4% [...] Mariano gestation only. Performed By: #### L [id number] #### [facility] CLIA [id number] [address] [place] [address] [place] POSITIVE PREDICTIVE VALUE N/A Normal [facility] Comment on above: Order Comment: Speci men Type: FLUID SPECIMEN Ordering Facility: [facility] Address: [address] [place] [address] Performed By: #### L [id number] #### [facility] CLIA [id number] [address] [place] [address] [place] Reference Lab Test Method Comment Normal [facility] Comment on above: Order Comment: Speci men Type: FLUID SPECIMEN Ordering Facility: [facility] Address: [address] [place] [address] Result Comment: See Notes Circulating cell-free DNA [...] 16 and 22. Performed By: #### L [id number] #### [facility] CLIA [id number] [address] [place], [place] [address] [place] Service comment (Unsp spec) [Interp] Comment Normal [facility] Comment on above: Order Comment: Speci men Type: FLUID SPECIMEN Ordering Facility: [facility] Address: [address] [place] [address] Result Comment: See Notes [employer] is a subsidiary of [employer], using the brand [employer]. This test was developed and its performance characteristics determined by [employer]. It has not been cleared or approved by the Food and Drug Administration. This laboratory is certified under the Clinical Laboratory Improvement Amendments (CLIA) as qualified to perform high complexity clinical laboratory testing and accredited by the [employer] [place] [employer] (CAP). If there is future clinical need for adding MaterniT GENOME testing, this specimen will be available until term. [facility] samples will not be retained beyond 60 days. [facility] patients will have to send a new sample for re-sequencing ([facility] Test Code: [id number]). Performed By: #### L [id number] #### [facility] CLIA [id number] [address] [place] [address] [place] Sex Dosage of chromosome-specific cfDNA Nom (cfDNA) Comment Normal [facility] Comment on above: Order Comment: Speci men Type: FLUID SPECIMEN Ordering Facility: [facility] Address: [address] [place], [place] [address] Result Comment: Cons istent with Female Performed By: #### L [id number] #### [facility] CLIA [id number] [address] [place], [place] [address] [place] Test performance information Pranav (Unsp spec) Comment Normal [facility] Comment on above: Order Comment: Speci men Type: FLUID SPECIMEN Ordering Facility: [facility] Address: [address] [place], [place] [address] Result Comment: The performance characteristics of the MaterniT(R) 21 PLUS laboratory-developed test (LDT) have been determined in a clinical validation study with women at increased risk for chromosomal aneuploidy.[1-4] Performed By: #### L [id number] #### [facility] CLIA [id number] [address] [place] [address] OF [facility] Trisomy 13 risk Dosage of chromosome-specific cfDNA Ql (cfDNA) [Interp] Negative Normal [facility] Comment on above: Order Comment: Speci galdino Type: FLUID SPECIMEN Ordering Facility: [facility] Address: [address] [place] [address] Performed By: #### L [id number] #### [facility] CLIA [id number] [address] [place] [address] OF [place] Trisomy 18 risk Dosage of chromosome-specific cfDNA Ql (Plasma cell-free+WBC DNA) [Interp] Negative Normal [facility] Comment on above: Order Comment: Specaspen ahmadi Type: FLUID SPECIMEN Ordering Facility: [facility] Address: [address] [place] [address] Performed By: #### L [id number] #### [facility] CLIA [id number] [address] [place] [address] [place] Bacteria Ur Culton [...] , Intermediate >32 , Resistant >64 Abnormal [facility] Comment on above: Performed By: #### 2 276-4, 85087-2 #### [facility] CLIA [id number] [address] [place], [place] [address] [place] [address] [place] C. trachomatis+N. gonorrhoea e DNA KEVIN+probe Ql (Unsp spec)on 06-07-2024 C. trachomatis rRNA KEVIN+probe Ql (Unsp spec) Not detected Normal Not detected [facility] Comment on above: Order Comment: Speci men Type: SWABOrdering Facility: [facility] Address: [address] [place] [address] Performed By: #### 6 30-4 #### [facility] CLIA [id number] [address] [place] [address] [place] N. gonorrhoeae rRNA KEVIN+probe Ql (Unsp spec) Not detected Normal Not detected [facility] Comment on above: Order Comment: Speci men Type: SWABOrdering Facility: [facility] Address: [address] [place] [address] Performed By: #### 6 30-4 #### [facility] CLIA [id number] [address] [place] [address] [place] CBC W Auto Differential pane l (Bld)on 06-07-2024 Basophils (Bld) [#/Vol] 10*3/uL Normal <0.11 C [facility] Comment on above: Order Comment: Speci men Type: BLOOD SPECIMENOrdering Facility: [facility] Address: [address] [place] [address] Performed By: #### 6 30-4 #### [facility] CLIA [id number] [address] [place] [address] [place] Basophils/100 WBC (Bld) 0.2 % Normal [facility] Comment on above: Order Comment: Speci men Type: BLOOD SPECIMENOrdering Facility: [facility] Address: [address] [place] [address] Performed By: #### 6 30-4 #### [facility] CLIA [id number] [address] [place] [address] [place] Differential cell count method Nom (Bld) Auto Normal [facility] Comment on above: Order Comment: Speci men Type: BLOOD SPECIMENOrdering Facility: [facility] Address: [address] [place] [address] Performed By: #### 6 30-4 #### [facility] CLIA [id number] [address] [place] [address] [place] Eosinophils (Bld) [#/Vol] 0.08 10*3/uL Normal <0.46 [facility] Comment on above: Order Comment: Speci men Type: BLOOD SPECIMENOrdering Facility: [facility] Address: [address] [place] [address] Performed By: #### 6 30-4 #### [facility] CLIA [id number] [address] [place] [address] [place] Eosinophils/100 WBC (Bld) 0.8 % Normal [facility] Comment on above: Order Comment: Speci men Type: BLOOD SPECIMENOrdering Facility: [facility] Address: [address] [place] [address] Performed By: #### 6 30-4 #### [facility] CLIA [id number] [address] [place] [address] [place] Erythrocyte distribution width (RBC) [Ratio] 12.6 % Normal 11.5-15.0 [facility] Comment on above: Order Comment: Speci men Type: BLOOD SPECIMENOrdering Facility: [facility] Address: [address] [place] [address] Performed By: #### 6 30-4 #### [facility] CLIA [id number] [address] [place] [address] [place] Hematocrit (Bld) [Volume fraction] 36.1 % Normal 36.0-46.0 [facility] Comment on above: Order Comment: Speci men Type: BLOOD SPECIMENOrdering Facility: [facility] Address: [address] [place] [address] Performed By: #### 6 30-4 #### [facility] CLIA [id number] [address] [place] [address] [place] Hemoglobin (Bld) [Mass/Vol] 12.0 g/dL Normal 11.5-15.5 [facility] Comment on above: Order Comment: Speci men Type: BLOOD SPECIMENOrdering Facility: [facility] Address: [address] [place] [address] Performed By: #### 6 30-4 #### [facility] CLIA [id number] [address] [place] [address] [place] Immature granulocytes (Bld) [#/Vol] 0.04 10*3/uL Normal <0.10 [facility] Comment on above: Order Comment: Speci men Type: BLOOD SPECIMENOrdering Facility: [facility] Address: [address] [place] [address] Performed By: #### 6 30-4 #### [facility] CLIA [id number] [address] [place] [address] [place] Immature granulocytes/100 WBC (Bld) 0.4 % Normal [facility] Comment on above: Order Comment: Speci men Type: BLOOD SPECIMENOrdering Facility: [facility] Address: [address] [place] [address] Performed By: #### 6 30-4 #### [facility] CLIA [id number] [address] [place] [address] [place] Lymphocytes (Bld) [#/Vol] 2.76 10*3/uL Normal 1.00-4.00 [facility] Comment on above: Order Comment: Speci men Type: BLOOD SPECIMENOrdering Facility: [facility] Address: [address] [place] [address] Performed By: #### 6 30-4 #### [facility] CLIA [id number] [address] [place] [address] [place] Lymphocytes/100 WBC (Bld) 26.6 % Normal [facility] Comment on above: Order Comment: Speci men Type: BLOOD SPECIMENOrdering Facility: [facility] Address: [address] [place] [address] Performed By: #### 6 30-4 #### [facility] CLIA [id number] [address] [place] [address] [place] MCH (RBC) [Entitic mass] 29.3 pg Normal 26.0-34.0 [facility] Comment on above: Order Comment: Speci men Type: BLOOD SPECIMENOrdering Facility: [facility] Address: [address] [place] [address] Performed By: #### 6 30-4 #### [facility] CLIA [id number] [address] [place] [address] [place] MCHC (RBC) [Mass/Vol] 33.2 g/dL Normal 30.5-36.0 [facility] Comment on above: Order Comment: Speci men Type: BLOOD SPECIMENOrdering Facility: [facility] Address: [address] [place] [address] Performed By: #### 6 30-4 #### [facility] CLIA [id number] [address] [place] [address] [place] MCV (RBC) [Entitic vol] 88.0 fL Normal 80.0-100.0 C [facility] Comment on above: Order Comment: Speci men Type: BLOOD SPECIMENOrdering Facility: [facility] Address: [address] [place] [address] Performed By: #### 6 30-4 #### [facility] CLIA [id number] [address] [place] [address] [place] Monocytes (Bld) [#/Vol] 0.55 10*3/uL Normal <0.87 [facility] Comment on above: Order Comment: Speci men Type: BLOOD SPECIMENOrdering Facility: [facility] Address: [address] [place] [address] Performed By: #### 6 30-4 #### [facility] CLIA [id number] [address] [place] [address] [place] Monocytes/100 WBC (Bld) 5.3 % Normal C [facility] Comment on above: Order Comment: Speci men Type: BLOOD SPECIMENOrdering Facility: [facility] Address: [address] [place] [address] Performed By: #### 6 30-4 #### [facility] CLIA [id number] [address] [place] [address] [place] Neutrophils (Bld) [#/Vol] 6.91 10*3/uL Normal 1.45-7.50 [facility] Comment on above: Order Comment: Speci men Type: BLOOD SPECIMENOrdering Facility: [facility] Address: [address] [place] [address] Performed By: #### 6 30-4 #### [facility] CLIA [id number] [address] [place] [address] [place] Neutrophils/100 WBC (Bld) 66.7 % Normal [facility] Comment on above: Order Comment: Speci men Type: BLOOD SPECIMENOrdering Facility: [facility] Address: [address] [place] [address] Performed By: #### 6 30-4 #### [facility] CLIA [id number] [address] [place] [address] [place] Nucleated RBC (Bld) [#/Vol] 10*3/uL Normal <0.01 [facility] Comment on above: Order Comment: Speci men Type: BLOOD SPECIMENOrdering Facility: [facility] Address: [address] [place] [address] Performed By: #### 6 30-4 #### [facility] CLIA [id number] [address] [place] [address] [place] Nucleated RBC/100 WBC (Bld) [Ratio] 0.0 /100 WBC Normal [facility] Comment on above: Order Comment: Speci men Type: BLOOD SPECIMENOrdering Facility: [facility] Address: [address] [place] [address] Performed By: #### 6 30-4 #### [facility] CLIA [id number] [address] [place] [address] [place] Platelet mean volume (Bld) [Entitic vol] 11.3 fL Normal 9.0-12.7 [facility] Comment on above: Order Comment: Speci men Type: BLOOD SPECIMENOrdering Facility: [facility] Address: [address] [place] [address] Performed By: #### 6 30-4 #### [facility] CLIA [id number] [address] [place] [address] [place] Platelets (Bld) [#/Vol] 246 10*3/uL Normal 150-400 [facility] Comment on above: Order Comment: Speci men Type: BLOOD SPECIMENOrdering Facility: [facility] Address: [address] [place] [address] Performed By: #### 6 30-4 #### [facility] CLIA [id number] [address] [place] [address] [place] RBC (Bld) [#/Vol] 4.10 10*6/uL Normal 3.90-5.20 [facility] Comment on above: Order Comment: Speci men Type: BLOOD SPECIMENOrdering Facility: [facility] Address: [address] [place] [address] Performed By: #### 6 30-4 #### [facility] CLIA [id number] [address] [place] [address] [place] WBC (Bld) [#/Vol] 10.36 10*3/uL Normal 3.70-11.00 [facility] Comment on above: Order Comment: Speci men Type: BLOOD SPECIMENOrdering Facility: [facility] Address: [address] [place] [address] Performed By: #### 6 30-4 #### [facility] CLIA [id number] [address] [place], [place] [address] [place] Comprehensive metabolic 2000 panelon 06-07-2024 Albumin [Mass/Vol] 4.1 g/dL Normal 3.9-4.9 [facility] Comment on above: Order Comment: Speci men Type: BLOOD SPECIMEN Ordering Facility: [facility] Address: [address] [place] [address] Performed By: #### 2 276-4, 69161-3 #### [facility] CLIA [id number] [address] [place] [address] [place] ALP [Catalytic activity/Vol] 70 U/L Normal 34-123 [facility] Comment on above: Order Comment: Speci men Type: BLOOD SPECIMEN Ordering Facility: [facility] Address: [address] [place] [address] Performed By: #### 2 276-4, 64674-0 #### [facility] CLIA [id number] [address] [place] [address] [place] ALT With P-5'-P [Catalytic activity/Vol] 56 U/L High 7-38 [facility] Comment on above: Order Comment: Speci men Type: BLOOD SPECIMEN Ordering Facility: [facility] Address: [address] [place] [address] Performed By: #### 2 276-4, 18475-0 #### [facility] CLIA [id number] [address] [place] [address] [place] Anion gap [Moles/Vol] 10 mmol/L Normal 8-15 [facility] Comment on above: Order Comment: Speci men Type: BLOOD SPECIMEN Ordering Facility: [facility] Address: [address] [place] [address] Performed By: #### 2 276-4, 26896-0 #### [facility] CLIA [id number] [address] [place] [address] [place] AST With P-5'-P [Catalytic activity/Vol] 30 U/L Normal 13-35 [facility] Comment on above: Order Comment: Speci men Type: BLOOD SPECIMEN Ordering Facility: [facility] Address: [address] [place], [place] [address] Performed By: #### 2 276-4, 13233-4 #### [facility] CLIA [id number] [address] [place] [address] [place] Bilirubin [Mass/Vol] 0.4 mg/dL Normal 0.2-1.3 [facility] Comment on above: Order Comment: Speci men Type: BLOOD SPECIMEN Ordering Facility: [facility] Address: [address] [place] [address] Performed By: #### 2 276-4, 28872-4 #### [facility] CLIA [id number] [address] [place] [address] [place] Calcium [Mass/Vol] 9.2 mg/dL Normal 8.5-10.2 [facility] Comment on above: Order Comment: Speci men Type: BLOOD SPECIMEN Ordering Facility: [facility] Address: [address] [place] [address] Performed By: #### 2 276-4, 36219-2 #### [facility] CLIA [id number] [address] [place] [address] [place] Chloride [Moles/Vol] 101 mmol/L Normal 98-107 [facility] Comment on above: Order Comment: Speci men Type: BLOOD SPECIMEN Ordering Facility: [facility] Address: [address] [place] [address] Performed By: #### 2 276-4, 40412-6 #### [facility] CLIA [id number] [address] [place] [address] [place] CO2 [Moles/Vol] 23 mmol/L Normal 22-30 [facility] Comment on above: Order Comment: Speci men Type: BLOOD SPECIMEN Ordering Facility: [facility] Address: [address] [place], [place] [address] Performed By: #### 2 276-4, 29161-7 #### [facility] CLIA [id number] [address] [place] [address] [place] Creatinine [Mass/Vol] 0.79 mg/dL Normal 0.58-0.96 [facility] Comment on above: Order Comment: Anat ahmadi Type: BLOOD SPECIMEN Ordering Facility: [facility] Address: [address] [place] [address] Performed By: #### 2 276-4, 95576-7 #### [facility] CLIA [id number] [address] [place] [address] [place] Creatinine and Glomerular filtration rate.predicted panel (S/P/Bld) 101 mL/min/1.73m??? Normal >=60 [facility] Comment on above: Order Comment: Katlin galdino Type: BLOOD SPECIMEN Ordering Facility: [facility] Address: [address] [place] [address] Result Comment: Jelly mated Glomerular Filtration Rate [...] actual GFR. Performed By: #### 2 276-4, 01896-9 #### [facility] CLIA [id number] [address] [place], [place] [address] [place] Glucose [Mass/Vol] 114 mg/dL High 74-99 [facility] Comment on above: Order Comment: Anat ahmadi Type: BLOOD SPECIMEN Ordering Facility: [facility] Address: [address] [place] [address] Result Comment: The [place] [employer] (ADA) provides guidance for cutoff [...] Standards of Medical Care in Diabetes 2016, [place] [employer]. Diabetes Care. 2016.39(Suppl 1). Performed By: #### 2 276-4, 00739-3 #### [facility] CLIA [id number] [address] [place] [address] [place] Potassium [Moles/Vol] 3.9 mmol/L Normal 3.7-5.1 [facility] Comment on above: Order Comment: Speci men Type: BLOOD SPECIMEN Ordering Facility: [facility] Address: [address] [place] [address] Performed By: #### 2 276-4, 09841-9 #### [facility] CLIA [id number] [address] [place] [address] [place] Protein [Mass/Vol] 7.2 g/dL Normal 6.3-8.0 [facility] Comment on above: Order Comment: Anat ahmadi Type: BLOOD SPECIMEN Ordering Facility: [facility] Address: [address] [place] [address] Performed By: #### 2 276-4, 98060-0 #### [facility] CLIA [id number] [address] [place] [address] [place] Sodium [Moles/Vol] 134 mmol/L Low 136-144 [facility] Comment on above: Order Comment: Speci men Type: BLOOD SPECIMEN Ordering Facility: [facility] Address: [address] [place] [address] Performed By: #### 2 276-4, 77522-9 #### [facility] CLIA [id number] [address] [place], [place] [address] [place] Urea nitrogen [Mass/Vol] 14 mg/dL Normal 7-21 [facility] Comment on above: Order Comment: Speci men Type: BLOOD SPECIMEN Ordering Facility: [facility] Address: [address] [place] [address] Performed By: #### 2 276-4, 77948-8 #### [facility] CLIA [id number] [address] [place] [address] [place] HBV surface Ag Ser Qlon 03 HBV surface Ag Ql (S) Negative Normal Negative [facility] Comment on above: Order Comment: Speci men Type: BLOOD SPECIMENOrdering Facility: [facility] Address: [address] [place] [address] Performed By: #### 6 30-4 #### [facility] CLIA [id number] [address] [place] [address] [place] HCV Ab Ser Qlon 06-07-2024 HCV Ab Ql (S) Negative Normal Negative [facility] Comment on above: Order Comment: Speci men Type: BLOOD SPECIMENOrdering Facility: [facility] Address: [address] [place] [address] Result Comment: The result suggests no evidence of active infection with Hepatitis C virus. Should recent infection be suspected, repeat testing may be considered 4-6 weeks after this draw. Performed By: #### 6 30-4 #### [facility] CLIA [id number] [address] [place] [address] [place] HIGH RISK HUMAN PAPILLOMA RICKY (HPV), PCR FOR DETECTION AND GENOTYPINGon 06-07-2024 HPV 16 Ag Ql (Unsp spec) Not detected Normal Not detec [facility] Comment on above: Order Comment: Speci men Type: FLUID SPECIMEN Ordering Facility: [facility] Address: [address] [place] [address] Performed By: #### L [id number] #### [facility] CLIA [id number] [address] [place] [address] [place] HPV 18 Ag Ql (Unsp spec) Not detected Normal Not detec terry [facility] Comment on above: Order Comment: Speci men Type: FLUID SPECIMEN Ordering Facility: [facility] Address: [address] [place] [address] Performed By: #### L [id number] #### [facility] CLIA [id number] [address] [place] [address] [place] HPV 31+33+35+39+45+51+52+56+ 58+59+66+68 DNA KEVIN+probe Ql (Cvx) Not detected Normal Not detected [facility] Comment on above: Order Comment: Speci men Type: FLUID SPECIMEN Ordering Facility: [facility] Address: [address] [place] [address] Result Comment: High Risk HPV Other Type includes HPV types 31, 33, 35, 39, 45, 51, 52, 56, 58, 59, 66 and 68. Performed By: #### L [id number] #### [facility] CLIA [id number] [address] [place] [address] [place] HIV 1+2 Ab IA Qlon 5 HIV 1 and 2 Ab IA.rapid Nom (S/P/Bld) Normal [facility] Comment on above: Order Comment: Speci men Type: BLOOD SPECIMENOrdering Facility: [facility] Address: [address] [place] [address] Result Comment: Test not indicated. Performed By: #### 6 30-4 #### [facility] CLIA [id number] [address] [place] [address] [place] HIV 1+2 Ab+HIV1 p24 Ag IA Ql Non-Reactive Normal Nonreactive [facility] Comment on above: Order Comment: Speci men Type: BLOOD SPECIMENOrdering Facility: [facility] Address: [address] [place] [address] Performed By: #### 6 30-4 #### [facility] CLIA [id number] [address] [place] [address] [place] HIV immunoassay testing algorithm interpretation (S/P/Bld) [Interp] Normal [facility] Comment on above: Order Comment: Anat ahmadi Type: BLOOD SPECIMENOrdering Facility: [facility] Address: [address] [place] [address] Result Comment: No e vidence of HIV-1 or HIV-2 infection. Should recent infection be suspected, repeat testing may be considered 2-3 weeks after this draw. [place] Rev. Code 3701.243(E): This information has been [...] diagnoses. Performed By: #### 6 30-4 #### [facility] CLIA [id number] [address] [place] [address] [place] HbA1c (Bld)on 06-07-2024 Average glucose Estimated from glycated hemoglobin (Bld) [Mass/Vol] 97 mg/dL Normal [facility] Comment on above: Order Comment: Anat ahmadi Type: FLUID SPECIMEN Ordering Facility: [facility] Address: [address] [place] [address] Result Comment: eAG: (Estimated average glucose) is a calculated value from HgbA1c and is manufacturers service representative of the average blood glucose level in the last 2-3 month period. Performed By: #### L [id number] #### [facility] CLIA [id number] [address] [place] [address] [place] HbA1c (Bld) [Mass fraction] 5.0 % Normal 4.3-5.6 [facility] Comment on above: Order Comment: Anat galdino Type: FLUID SPECIMEN Ordering Facility: [facility] Address: [address] [place] [address] Result Comment: Amer ican Diabetes Association guidelines indicate that patients with HgbA1c in the range 5.7-6.4% are at increased risk for development of diabetes, and intervention by lifestyle modification may be beneficial. HgbA1c greater or equal to 6.5% is considered diagnostic of diabetes. Performed By: #### L [id number] #### [facility] CLIA [id number] [address] [place], [place] [address] [place] PAP TESTon 06-07-2024 ADEQUACY Normal [facility] Comment on above: Order Comment: Speci men Type: FLUID SPECIMEN Ordering Facility: [facility] Address: [address] [place] [address] Result Comment: Sati sfactory for interpretation. Transformation zone present Performed By: #### L [id number] #### [facility] CLIA [id number] [address] [place] [address] [place] CASE REPORT Normal [facility] Comment on above: Order Comment: Speci men Type: FLUID SPECIMEN Ordering Facility: [facility] Address: [address] [place] [address] Result Comment: Gyne cologic Cytology Report Case: [id number] Authorizing Provider: Leanne Aquino APRN.BROWN SOURER Collected: 06/07/2024 03:39 PM Ordering Location: OB/Gynecology Received: 06/07/2024 04:52 PM First Screen: Aramouni, Martha, CT, ASCP Specimen: Pap Test, ThinPrep, Cervix Performed By: #### L [id number] #### [facility] CLIA [id number] [address] [place] [address] [place] CLINICAL HISTORY, CYTOLOGY, ESTATE PLANNING COUNSELOR Routine Exam Normal [facility] Comment on above: Order Comment: Speci men Type: FLUID SPECIMEN Ordering Facility: [facility] Address: [address] [place] [address] Performed By: #### L [id number] #### [facility] CLIA [id number] [address] [place], [place] [address] [place] FINAL PERFORMING LAB Normal [facility] Comment on above: Order Comment: Speci men Type: FLUID SPECIMEN Ordering Facility: [facility] Address: [address] [place], [place] [address] Result Comment: Tech nical component, postal inspector screening performed at [facility], [facility] [place] [address] CLIA# [id number] Diagnostic interpretation performed at [facility], [address] [place] [address] [place] [address] CLIA# [id number] Gum Scoring Machine Operator: Alvarez Vargas M.D. Performed By: #### L [id number] #### [facility] CLIA [id number] [address] [place], [place] [address] [place] INTERPRETATION, CYTOLOGY, ESTATE PLANNING COUNSELOR Normal [facility] Comment on above: Order Comment: Speci men Type: FLUID SPECIMEN Ordering Facility: [facility] Address: [address] [place] [address] Result Comment: Nega tive for intraepithelial lesion or malignancy. at 1429 EDT Performed By: #### L [id number] #### [facility] CLIA [id number] [address] [place] [address] [place] LMP 04/09/2024 Normal [facility] Comment on above: Order Comment: Speci men Type: FLUID SPECIMEN Ordering Facility: [facility] Address: [address] [place] [address] Performed By: #### L [id number] #### [facility] CLIA [id number] [address] [place], [place] [address] [place] PAP DISCLAIMER COMMENT The Pap Smear is a screening test for cervical cancer. False negative results occur with all screening tests, emphasizing the need for rescreening at recommended intervals, and clinical correlation. Normal [facility] Comment on above: Order Comment: Speci men Type: FLUID SPECIMEN Ordering Facility: [facility] Address: [address] [place] [address] Performed By: #### L [id number] #### [facility] CLIA [id number] [address] [place], [place] [address] [facility] PAP MARINE DIVER COMMENT This specimen has been analyzed by the ThinPrep Imaging System, an automated imaging and review system, which assists the laboratory in evaluating cells on ThinPrep Pap tests. Following automated imaging, selected doherty from every slide are reviewed by a postal inspector. Normal [facility] Comment on above: Order Comment: Speci men Type: FLUID SPECIMEN Ordering Facility: [facility] Address: [address] [place] [address] Performed By: #### L [id number] #### [facility] CLIA [id number] [address] [place] [address] POC ENGRAVER PANTOGRAPH ULTRASOUNDon 06-08-19 Indication Confirmation of intrauterine . [...] Read By: Leanne Aquino CNP MATERNAL MEDICINE [facility] Radiology Study observation (narrative) Stanislaw geiger [facility] Prot/Creat Uron 06-07-2024 Protein/Creatinine (U) [Mass ratio] 0.06 mg/mg Normal <0.15 [facility] Comment on above: Order Comment: Specaspen ahmadi Type: FLUID SPECIMEN Ordering Facility: [facility] Address: [address] [place] [address] Result Comment: Adul t Proteinuria Categories: <0.15 mg/mg is considered normal to mildly increased 0.15 - 0.50 mg/mg is considered moderately increased >0.50 mg/mg is considered severely increased KDIGO. (2013). KDIGO 2012 Clinical Practice Guideline for the Evaluation and Management of Chronic Kidney Disease. Official Journal of the International Society of Nephrology, 3(1), 1-150. Performed By: #### L [id number] #### [facility] CLIA [id number] [address] [place] [address] [place] Protein/Creatinine (U) [Mass ratio]on 06-07-2024 Creatinine (U) [Mass/Vol] 155.0 mg/dL Normal 42.2-237.9 [facility] Comment on above: Order Comment: Anat ahmadi Type: FLUID SPECIMEN Ordering Facility: [facility] Address: [address] [place] [address] Performed By: #### L [id number] #### [facility] CLIA [id number] [address] [place] [address] [place] Protein (U) [Mass/Vol] 10 mg/dL Normal 0-20 [facility] Comment on above: Order Comment: Anat ahmadi Type: FLUID SPECIMEN Ordering Facility: [facility] Address: [address] [place] [address] Performed By: #### L [id number] #### [facility] CLIA [id number] [address] [place] [address] [place] RUBELLA IGG ANTIBODYon 06-07 RUBELLA IGG AB, QUAL Positive Normal Positive [facility] Comment on above: Order Comment: Anat ahmadi Type: FLUID SPECIMEN Ordering Facility: [facility] Address: [address] [place] [address] Result Comment: The result suggests recent or past exposure to Rubella virus or history of Rubella vaccination. Positive result may also be seen due to presence of passively-transferred antibodies. Please correlate with patient's history. Performed By: #### L [id number] #### [facility] CLIA [id number] [address] [place] [address] [place] Reagin and Treponema pallidu m IgG and IgM [Interp]on 06-07-2024 T. pallidum IgG+IgM IA Ql (S) Non-Reactive Normal Nonreactive [facility] Comment on above: Order Comment: Speci men Type: BLOOD SPECIMENOrdering Facility: [facility] Address: [address] [place] [address] Performed By: #### 6 30-4 #### [facility] CLIA [id number] [address] [place] [address] [place] Reagin+T pallidum IgG+IgM Se rPl-Impon 06-07-2024 Reagin and Treponema pallidum IgG and IgM [Interp] Cannot exclude recent Treponemal infection if specimen collected within 7-10 days after appearance of suspect lesions or 2-3 weeks after an exposure. Clinical correlation is required. Normal [facility] Comment on above: Order Comment: Speci men Type: BLOOD SPECIMENOrdering Facility: [facility] Address: [address] [place] [address] Performed By: #### 6 30-4 #### [facility] CLIA [id number] [address] [place] [address] [place] TRICHOMONAS VAGINALIS NAATon 06-07-2024 T. vaginalis DNA KEVIN+probe Ql (Unsp spec) Not detected Normal Not detected [facility] Comment on above: Order Comment: Speci men Type: SWABOrdering Facility: [facility] Address: [address] [place] [address] Performed By: #### 6 30-4 #### [facility] CLIA [id number] [address] [place] [address] [place] TYPE + SCREEN PRENATALon ABO A Normal [facility] Comment on above: Order Comment: Speci men Type: BLOOD SPECIMEN Ordering Facility: [facility] Address: [address] [place] [address] Performed By: #### T SPN #### [facility] CLIA [id number] [address] [place] [address] [place] Rh Nom (Bld) Positive Normal [facility] Comment on above: Order Comment: Speci men Type: BLOOD SPECIMEN Ordering Facility: [facility] Address: [address] [place] [address] Performed By: #### T SPN #### [facility] CLIA [id number] [address] [place] [address] TYPE AND SCREEN EXPIRATION 06/10/2024 23:59 Normal [facility] Comment on above: Order Comment: Speci men Type: BLOOD SPECIMEN Ordering Facility: [facility] Address: [address] [place] [address] Performed By: #### T SPN #### [facility] CLIA [id number] [address] [place] [address] OF [place]SE MARTIN CNOVon 05-24-2024 CNOV Office Visit (OBGYWM) HILLARY FRAIRE ([id number]) 1990 F Date Time Provider Department 05/24/24 8:00 AM [facility] During your visit today, we recorded the [...] Living1 SAB0 IAB0 Ectopic0 Multiple0 Live Births1 [place] History LMP: 03/31/2023 (Exact Date), Having periods Age at Menarche: Age at First : Age at Menopause: [place] History Comments: Sexual Activity: Yes; Male Contraception: Pill PAST MEDICAL HISTORY Diagnosis Date #[id number] Anemia during in third trimester 11/15/2020 fracture [...] discussed with the Patient or Patient's Authorized Training Engineer. As applicable, any other physician, advance practice provider, medical student, or other health professional student that will be observing or involved in the sensitive examination for educational or training purposes was discussed with the Patient or Authorized Training Engineer. The Patient or Authorized Training Engineer has agreed to proceed with the sensitive [...] be more appropriately called evening sickness or bterf-hcxupv-ym-the- day sickness. While there are the paulino [...] than expected (more content not included)... Normal [facility] UA DIP,URINE HCG (POC)on Beta HCG ( test) Ql (U) Positive Abnormal Negative [facility] Comment on above: Location:[facility], [address] , [place], [address] Interpretation and review of laboratory results Abnormal [facility] Behavioral Modification Assistant (POCT) Internal QC [place] [facility] Location:[facility], [address] [facility], [place], [address] [facility] POINT OF CARE [facility] CBC W Auto Differential pane l (Bld)on 02-11-2022 Basophils (Bld) [#/Vol] 0.04 10*3/uL <0.11 k/uL [facility] Basophils/100 WBC (Bld) 0.5 % [facility] Differential cell count method Nom (Bld) Auto [facility] Eosinophils (Bld) [#/Vol] 0.13 10*3/uL <0.46 k/uL [facility] Eosinophils/100 WBC (Bld) 1.5 % [facility] Erythrocyte distribution width (RBC) [Ratio] 12.7 % 11.5 - 15.0 % [facility] Hematocrit (Bld) [Volume fraction] 41.0 % 36.0 - 46.0 % [facility] Hemoglobin (Bld) [Mass/Vol] 13.6 g/dL 11.5 - 15.5 g/dL [facility] Immature granulocytes (Bld) [#/Vol] <0.10 k/uL [facility] Immature granulocytes/100 WBC (Bld) 0.1 % [facility] Lymphocytes (Bld) [#/Vol] 2.58 10*3/uL 1.00 - 4.00 k/uL [facility] Lymphocytes/100 WBC (Bld) 30.6 % [facility] MCH (RBC) [Entitic mass] 29.5 pg 26.0 - 34.0 pg [facility] MCHC (RBC) [Mass/Vol] 33.2 g/dL 30.5 - 36.0 g/dL [facility] MCV (RBC) [Entitic vol] 88.9 fL 80.0 - 100.0 fL [facility] Monocytes (Bld) [#/Vol] 0.61 10*3/uL <0.87 k/uL [facility] Monocytes/100 WBC (Bld) 7.2 % [facility] Neutrophils (Bld) [#/Vol] 5.06 10*3/uL 1.45 - 7.50 k/uL [facility] Neutrophils/100 WBC (Bld) 60.1 % [facility] Nucleated RBC (Bld) [#/Vol] <0.01 k/uL [facility] Nucleated RBC/100 WBC (Bld) [Ratio] 0.0 /100 WBC [facility] Platelet mean volume (Bld) [Entitic vol] 10.9 fL 9.0 - 12.7 fL [facility] Platelets (Bld) [#/Vol] 285 10*3/uL 150 - 400 k /uL [facility] RBC (Bld) [#/Vol] 4.61 10*6/uL 3.90 - 5.2 0 m/uL [facility] WBC (Bld) [#/Vol] 8.43 10*3/uL 3.70 - 11. 00 k/uL [facility] Vital Signs Date Time Vital Sign Value Performing Clinician Faci lity 12-07-2024 07:13-0400 Diastolic blood pressure 52 mm[Hg] Dr. Chiki Gonzales MD Work Phone: [facility] 12-07-2024 07:13-0400 Heart rate 98 /min Dr. Chiki Gonzales MD Work Phone: [facility] 12-07-2024 07:13-0400 Systolic blood pressure 108 mm[Hg] Dr. Chiki Gonzales MD Work Phone: [facility] 12-07-2024 07:12-0400 Body temperature 98.5 [degF] Dr. Chiki Gonzales MD Work Phone: [facility] 12-07-2024 07:12-0400 Respiratory rate 16 /min Dr. Chiki Gonzales MD Work Phone: [facility] 12-07-2024 06:10-0400 SaO2% (BldA) [Mass fraction] 91 % Dr. Chiki Gonzales MD Work Phone: [facility] 12-07-2024 03:57-0400 Body height 182.[address] Chiki Gonzales MD Work Phone: 0(646)826-375176 [place] [address] 12-07-2024 03:57-0400 Body mass index (BMI) [Ratio] 38 kg/m2 Dr. Chiki Gonzales MD Work Phone: 1(020)397-916276 [place] [address] 12-07-2024 03:57-0400 Body weight [address] Chiki Gonzales MD Work Phone: 7(716)321-296576 [place] [address] 12-06-2024 14:53-0400 Body temperature 97.6 [degF] Dr. Chiki Gonzales MD Work Phone: 4(697)763-764276 [place] [address] 12-06-2024 14:53-0400 Diastolic blood pressure 75 mm[Hg] Dr. Chiki Gonzales MD Work Phone: 2(304)741-764176 [place] [address] 12-06-2024 14:53-0400 Heart rate 91 /min Dr. Chiki Gonzales MD Work Phone: 5(598)168-232376 [place] [address] 12-06-2024 14:53-0400 Respiratory rate 16 /min Dr. Chiki Gonzales MD Work Phone: 7(294)198-159476 [place] [address] 12-06-2024 14:53-0400 SaO2% (BldA) [Mass fraction] 100 % Dr. Chiki Gonzales MD Work Phone: 8(409)958-473276 [place] [address] 12-06-2024 14:53-0400 Systolic blood pressure 128 mm[Hg] Dr. Chiki Gonzales MD Work Phone: 9(917)707-474476 [place] [address] 12-06-2024 07:40-0400 Body weight 127.[address] Chiki Gonzales MD Work Phone: 8(066)808-982176 [place] [address] 12-04-2024 11:37-0400 Body height 182.[address] Chiki Gonzales MD Work Phone: 9(736)854-209476 [place] [address] 12-04-2024 11:37-0400 Body mass index (BMI) [Ratio] 38 kg/m2 Dr. Chiki Gonzales MD Work Phone: 0(661)948-053076 [place] [address] 11-26-2024 10:53-0400 Body mass index (BMI) [Ratio] 37.97 kg/m2 Sheylaelizabeth Moreno APRN.CNM Work Phone: [facility] 11-26-2024 10:53-0400 Body weight 127.01 kg Sheyla Josh HAM PUMPER.CNM Work Phone: [facility] 11-26-2024 10:53-0400 Diastolic blood pressure 78 mm[Hg] Sheyla Moreno HAM PUMPER.CNM Work Phone: [facility] 11-26-2024 10:53-0400 Systolic blood pressure 126 mm[Hg] Sheyla Josh COTTONN.CNM Work Phone: [facility] 10-25-2024 14:23-0400 Body mass index (BMI) [Ratio] 37.05 kg/m2 Kelly Baltazar MD Work Phone: [facility] 10-25-2024 14:23-0400 Body weight 123.92 kg Kelly Baltazar MD Work Phone: [facility] 10-25-2024 14:23-0400 Diastolic blood pressure 72 mm[Hg] Kelly Baltazar MD Work Phone: [facility] 10-25-2024 14:23-0400 Systolic blood pressure 120 mm[Hg] Kelly Baltazar MD Work Phone: [facility] 09-27-2024 15:15-0400 Body mass index (BMI) [Ratio] 37.16 kg/m2 Adina Krueger MD Work Phone: [facility] 09-27-2024 15:15-0400 Body weight 124.29 kg Adina Krueger MD Work Phone: [facility] 09-27-2024 15:15-0400 Diastolic blood pressure 70 mm[Hg] Adina Krueger MD Work Phone: [facility] 09-27-2024 15:15-0400 Systolic blood pressure 134 mm[Hg] Adina Krueger MD Work Phone: [facility] 09-03-2024 15:08-0400 Body mass index (BMI) [Ratio] 36.75 kg/m2 Elli Sorenson MD Work Phone: [facility] 09-03-2024 15:08-0400 Body weight 122.92 kg Elli Sorenson MD Work Phone: [facility] 09-03-2024 15:08-0400 Diastolic blood pressure 68 mm[Hg] Elli Sorenson MD Work Phone: [facility] 09-03-2024 15:08-0400 Systolic blood pressure 142 mm[Hg] Elli Sorenson MD Work Phone: [facility] 08-02-2024 15:08-0400 Body mass index (BMI) [Ratio] 37.43 kg/m2 Polly Hamilton MD Work Phone: [facility] 08-02-2024 15:08-0400 Body weight 125.19 kg Polly Hamilton MD Work Phone: [facility] 08-02-2024 15:08-0400 Diastolic blood pressure 76 mm[Hg] Polly Hamilton MD Work Phone: [facility] 08-02-2024 15:08-0400 Systolic blood pressure 138 mm[Hg] Polly Hamilton MD Work Phone: [facility] 07-05-2024 15:21-0400 Body mass index (BMI) [Ratio] 37.78 kg/m2 Kelly Baltazar MD Work Phone: [facility] 07-05-2024 15:21-0400 Body weight 126.37 kg Kelly Baltazar MD Work Phone: [facility] 07-05-2024 15:21-0400 Diastolic blood pressure 80 mm[Hg] Kelly Baltazar MD Work Phone: [facility] 07-05-2024 15:21-0400 Systolic blood pressure 120 mm[Hg] Kelly Baltazar MD Work Phone: [facility] 06-07-2024 14:40-0500 Body height 182.9 cm Leanne [place] HAM PUMPER.BROWN SOURER Work Phone: [facility] 06-07-2024 14:40-0500 Body mass index (BMI) [Ratio] 38 kg/m2 Leanne [place] HAM PUMPER.BROWN SOURER Work Phone: [facility] 06-07-2024 14:40-0500 Body weight 127.1 kg Leanne [place] HAM PUMPER.BROWN SOURER Work Phone: [facility] 06-07-2024 14:40-0500 Diastolic blood pressure 70 mm[Hg] Leanne Kenia HAM PUMPER.BROWN SOURER Work Phone: [facility] 06-07-2024 14:40-0500 Systolic blood pressure 118 mm[Hg] Leanne Kenia HAM PUMPER.BROWN SOURER Work Phone: [facility] 05-24-2024 08:03-0500 Body mass index (BMI) [Ratio] 38.63 kg/m2 Crissy Plotts HAM PUMPER.CNM Work Phone: [facility] 05-24-2024 08:03-0500 Body weight 129.18 kg Crissy Plotts HAM PUMPER.CNM Work Phone: [facility] 05-24-2024 08:03-0500 Diastolic blood pressure 68 mm[Hg] Crissy Plotts HAM PUMPER.CNM Work Phone: [facility] 05-24-2024 08:03-0500 Systolic blood pressure 124 mm[Hg] Crissy Plotts HAM PUMPER.CNM Work Phone: [facility] 02-11-2022 08:15-0500 Body height 182.9 cm Sheyla Moreno HAM PUMPER.CNM Work Phone: [facility] 02-11-2022 08:15-0500 Body weight 118.93 kg Sheyla Moreno HAM PUMPER.CNM Work Phone: [facility] 02-11-2022 08:15-0500 Diastolic blood pressure 70 mm[Hg] Sheyla Moreno HAM PUMPER.CNM Work Phone: [facility] 02-11-2022 08:15-0500 Systolic blood pressure 118 mm[Hg] Sheyla Moreno LAYLAHarrison Work Phone: [facility] Encounters Encounter Date Encounter Type Care Provider Facility Start: 12-08-2024 ambulatory Latesha Elena Facility: [facility] Start: 12-07-2024 End: 12-07-[address] Chiki Gonzales MD Work Phone: [facility] Start: 12-07-2024 End: 12-07-[address] Polly Hamilton MD -[facility] Work Phone: Start: 12-06-2024 Non-patient / Non-visit Dr. Latesha metz MD -[facility] Start: 12-05-2024 Non-patient / Non-visit Dr. Latesha metz MD -[facility] Start: 12-04-2024 ambulatory Chiki Gonzales Facility:[facility] Start: 12-04-2024 End: 12-06-2024 Evaluation and management of inpatient Sheyla Josh GONZALEZ [facility] Work Phone: Start: 12-04-2024 End: 12-04-2024 Telephone encounter Amisha Alberto MD Work Phone: Gynecology Start: 11-26-2024 End: 11-26-2024 ambulatory SHEYLA MORENO Facility:[facility] Start: 11-26-2024 End: 11-26-2024 Patient encounter procedure Whi Tech 1 Spool [employer] [facility] Maternal Medicine Comment on [...] Start: 11-26-2024 End: 11-26-2024 ambulatory CHIKI GONZALES Facility:[facility] Start: 11-08-2024 End: 11-08-2024 ambulatory CHIKI GONZALES Facility:[facility] Start: 10-29-2024 End: 10-29-2024 Telephone encounter Kelly Baltazar MD Work Phone: OB/Gynecology Comment on above: Breast Pump Start: 10-26-2024 End: 10-26-2024 ambulatory eKlly Baltazar MD Work Phone: OB/Gynecology Start: 10-26-2024 [...] 10-25-2024 Patient encounter procedure Whi Tech 1 Spool [employer] [facility] Comment on above: Encounter for ultras ound to check growth (HCC) (Primary Dx); Chronic hypertension in (HCC); 28 weeks gestation of (HCC) Start: 10-25-2024 End: 10-25-2024 ambulatory CHIKI GONZALES Facility:[facility] Start: 09-27-2024 End: 09-27-2024 Patient encounter procedure Adina Krueger MD Work Phone: OB/Gynecology Comment on above: Supervision of high risk in second trimester (HCC) (Primary Dx); UTI (urinary tract infection) in , antepartum (HCC); Chronic hypertension in (HCC); 24 weeks gestation of (HCC) Start: 09-27-2024 End: 09-27-2024 ambulatory CHIKI GONZALES Facility:[facility] Start: 09-20-2024 End: 11-20-2024 Follow-up encounter Elli Sorenson MD Work Phone: OB/Gynecology Start: 09-17-2024 End: 09-17-2024 ambulatory CHIKI GONZALES Facility:[facility] Start: 09-16-2024 End: 09-21-2024 ambulatory Elli Sorenson MD Work Phone: OB/Gynecology Comment on above: Antibiotic/ urine te st Start: 09-06-2024 End: 09-07-2024 Follow-up encounter Adina Krueger MD Work Phone: OB/Gynecology Start: 09-03-2024 End: 09-03-2024 Patient encounter procedure Elli Sorenson MD Work Phone: OB/Gynecology Comment on above: Supervision of high risk in second trimester (HCC) (Primary Dx); Chronic hypertension in ([facility]); Obesity in (HCC); History of pre-eclampsia; UTI (urinary tract infection) in , antepartum (HCC); 21 weeks gestation of ([facility]) Encounter for anatomic survey (HCC) (Primary Dx); 8 weeks gestation of (HCC); Obesity affecting in second trimester, unspecified obesity type ([facility]) Start: 09-03-2024 End: 09-03-2024 ambulatory CHIKI GONZALES Facility:[facility] Start: 08-04-2024 End: 08-04-2024 Follow-up encounter Radha Hammer APRN.BROWN SOURER Work Phone: OB/Gynecology Comment on above: Results Start: 08-02-2024 End: 08-02-2024 Patient encounter procedure Polly Hamilton MD Work Phone: OB/Gynecology Comment on above: , supervisi on, high-risk, unspecified trimester (HCC) (Primary Dx); BMI 38.0-38.9,adult; 16 weeks gestation of (HCC); UTI (urinary tract infection) in , antepartum (HCC) Start: 08-02-2024 End: 08-02-2024 ambulatory POLLY HAMILTON Facility:[facility] Start: 07-13-2024 End: 07-13-2024 ambulatory Leanne Aquino APRN.BROWN SOURER Work Phone: OB/Gynecology Start: 07-13-2024 End: 07-13-2024 Patient encounter procedure Leanne Aquino APRN.BROWN SOURER Work Phone: OB/Gynecology Comment on above: August 02 appointid stanley Start: 07-08-2024 End: 07-08-2024 Telephone encounter Kelly Baltazar MD Work Phone: OB/Gynecology Comment on above: Orders Start: 07-05-2024 End: 07-05-2024 ambulatory CHIKI GONZALES Facility:[facility] Start: 07-05-2024 End: 07-05-2024 Patient encounter procedure Kelly Baltazar MD Work Phone: OB/Gynecology Comment on above: , supervisi on, high-risk, unspecified trimester (Primary Dx); 12 weeks gestation of ; UTI (urinary tract infection) in , antepartum; Elevated LFTs 8 weeks gestation of Start: 07-05-2024 End: 09-04-2024 Follow-up encounter Kelly Baltazar MD Work Phone: OB/Gynecology Start: 06-07-2024 End: 06-07-2024 ambulatory CHIKI GONZALES Facility:[facility] Start: 06-07-2024 End: 06-07-2024 Patient encounter procedure Leanne Aquino APRN.BROWN SOURER Work Phone: OB/Gynecology Comment on above: BMI 38.0-38.9,adult (Primary Dx); with uncertain dates, antepartum; Screening for cervical cancer; Screen for STD (sexually transmitted disease); 8 weeks gestation of ; History of anemia; Generalized anxiety disorder; , supervision, high-risk, unspecified trimester Start: 06-07-2024 End: 06-09-2024 Follow-up encounter Leanne Aquino APRN.BROWN SOURER Work Phone: OB/Gynecology Comment on above: UTI (urinary tract i nfection) in , antepartum (Primary Dx) Start: 05-24-2024 End: 05-24-2024 ambulatory CRISSY TOM Facility:[facility] Start: 05-24-2024 End: 05-24-2024 Patient encounter procedure Crissy Tom HAM PUMPER.CNM Work Phone: OB/Gynecology Comment on above: Missed menses (Prima ry Dx); 6 weeks gestation of ; Spotting in early ; Obesity affecting in first trimester, unspecified obesity type; Nausea Start: 05-12-2024 End: 05-12-2024 ambulatory Sheyla Moreno APRN.CNM Work Phone: OB/Gynecology Comment on above: Early Start: 03-03-2023 ambulatory Sheyla Moreno APRN.CNM Work Phone: OB/Gynecology Comment on above: Blood Work Request Start: 01-20-2023 Refill Sheyla Moreno APRN.CNHarrison Work Phone: OB/Gynecology Comment on above: Refill Request Start: 03-01-2022 ambulatory Sheyla Moreno APRN.CNM Work Phone: OB/Gynecology Comment on above: Medicine while breas tfeeding Start: 02-11-2022 ambulatory Sheyla Moreno APRN.CNM Work Phone: OB/Gynecology Comment on above: Question regarding T SH BLD Start: 02-11-2022 End: 02-11-2022 Patient encounter procedure Sheyla Moreno APRN.CNHarrison Work Phone: OB/Gynecology Comment on above: Encounter for gyneco logical examination (general) (routine) without abnormal findings (Primary Dx); Malaise and fatigue; Encounter for surveillance of contraceptive pills Start: 02-11-2022 End: 02-11-2022 Patient encounter status Sheyla Moreno APRN.THADDEUS Work Phone: OB/Gynecology Start: 01-28-2022 Refill Sheyla Moreno APRN.CNHarrison Work Phone: OB/Gynecology Comment on above: Refill Request Start: 01-26-2022 Refill Sheyla Moreno APRN.THADDEUS Work Phone: OB/Gynecology Comment on above: Refill Request Start: 01-15-2022 Refill Sheyla Moreno APRN.THADDEUS Work Phone: OB/Gynecology Comment on above: Refill Request Start: 11-14-2020 ambulatory Kelly Geiger Work Phone: OB/Gynecology Comment on above: RE: Test Result Lin tion Start: 06-08-2020 End: 07-19-2020 Patient requested procedure Sheyladeanne Moreno APRN.CNM Work Phone: [facility] Start: 05-29-2020 End: 05-29-2020 Telephone encounter Sheyla (Cnm) Josh Work Phone: OB/Gynecology Comment on above: Care (+ pre gnancy test) Procedures Date Procedure Procedure Detail Performing Clinician Start: 12-07-2024 Complete ultrasound of kidneys and bladder Dr. Chiki Gonzales MD Work Phone: Start: 12-06-2024 Introduction to urin fatimah tract [...] 09-03-2024 Us preg uterus after 1st trimest 1/ gestation Leanne [place] HAM PUMPER.BROWN SOURER Work Phone: Start: 07-05-2024 Us preg uterus after 1st trimest 1/ gestation Leanne [place] HAM PUMPER.BROWN SOURER Work Phone: Start: 06-07-2024 Antibody screen CHIKI BANUELOS Comment on above: Order Comment: Speci men Type: BLOOD SPECIMEN Ordering Facility: [facility] Address: [address] [place] [address] Performed By: #### T SPN #### [facility] CLIA [id number] [address] [place] [address] [place] Start: 06-07-2024 Us uterus limited 1/> fetuses Leanne Kenia HAM PUMPER.BROWN SOURER Work Phone: Start: 05-24-2024 UA DIP,URINE HCG (POC) Crissy Tom HAM PUMPER.CNM Work Phone: Start: 12-13-2020 End: 10-27-2024 Vaccine refused by patient COVID-19 vaccine series declined Sheyla Josh HAM PUMPER.CNM Work Phone: Plan of Treatment Date Care Activity Detail Author Start: 11-13-2030 Urine microalbumin profile [facility] Start: 06-07-2029 Screening for malign ant neoplasm of cervix Cervical Cancer Screening [facility] Start: 06-15-2025 HPV TESTING HPV TESTING [facility] Start: 06-15-2025 PAP TESTING PAP TESTING [facility] Start: 06-15-2025 Screening for malign ant neoplasm of cervix Cervical Cancer Screening [facility] Start: 12-27-2024 End: 12-27-2024 Patient encounter procedure Maternal Medicine Comment on above: Growth Growth/OB Start: 12-20-2024 End: 12-20-2024 Patient encounter procedure 12/20/2024 10:50 AM EDT Office Visit OB/Gynecology [address] [place] [address] Kelly Baltazar MD [address] [address] OB OB/Gynecology Comment on above: OB Start: 12-13-2024 End: 12-13-2024 Patient encounter procedure 12/13/2024 10:10 AM EDT Routine Office Visit OB/Gynecology [address] [place] [address] Kelly Baltazar MD [address] [place] [address] OB OB/Gynecology Comment on above: OB Start: 12-07-2024 Consultation [facility] Start: 12-07-2024 Patient discharge [facility] Start: 12-06-2024 Influenza vaccination [facility] Start: 12-06-2024 RSV Vaccine (1 - Ris k 1-dose series) RSV Vaccine (1 - Risk 1-dose series) [facility] Start: 12-06-2024 Patient discharge [facility] Start: 12-05-2024 Nonstress test [facility] Start: 12-05-2024 [facility] Start: 12-05-2024 Application of intermittent pneumatic compression device [facility] Start: 12-05-2024 Catheterization of vein [facility] Start: 12-04-2024 Admission procedure [facility] Start: 12-04-2024 [facility] Start: 12-04-2024 Consultation [facility] Start: 12-04-2024 Nonstress test [facility] Start: 12-04-2024 End: 12-04-2024 [facility] Start: 12-04-2024 Nonstress test [facility] Start: 12-04-2024 Obstetric monitoring [facility] Start: 12-04-2024 Vital signs measurements [facility] Start: 12-04-2024 Collection of urine and strain for calculus [facility] Start: 11-26-2024 End: 11-26-2024 Patient encounter procedure Maternal Medicine Comment on above: Growth/OB Start: 11-22-2024 End: 11-22-2024 Patient encounter procedure 11/22/2024 1:30 PM EDT Routine Office Visit OB/Gynecology [address] [place] [id number] Kelly Baltazar MD [address] [place] [address] OB OB/Gynecology Comment on above: OB Start: 11-08-2024 End: 11-08-2024 Patient encounter procedure 11/08/2024 10:40 AM EDT Routine Office Visit OB/Gynecology [address] [place] [address] Kelly Baltazar MD [address] [place] [address] OB OB/Gynecology Comment on above: OB Start: 10-25-2024 End: 10-25-2024 Patient encounter procedure 10/25/2024 3:10 PM EDT Routine Office Visit OB/Gynecology [address] [place] [address] Kelly Baltazar MD [address] [place] [address] OB Routine OB/Gynecology Comment on above: OB Routine Start: 10-25-2024 End: 10-25-2024 ambulatory 10/25/2024 3:00 PM EDT Results Only [facility] [address] [place] [address] Glucose test and Labs [facility] Comment on above: Glucose test and Lab s Start: 10-25-2024 End: 10-25-2024 Patient encounter procedure 10/25/2024 1:30 PM EDT Routine Office Visit [facility] [address] [place] [address] Growth [facility] Comment on above: Growth Start: 09-27-2024 End: 09-27-2024 Patient encounter procedure OB/Gynecology Comment on above: OB Routine OB Routine - needs T OC once finished with Augmentin Start: 09-27-2024 End: 12-27-2024 ANEMIA REFLEX PANEL ANEMIA REFLEX PANEL Lab Routine Expected: 09/27/2024, Expires: 12/27/2024 [facility] Comment on above: Expected: 09/27/2024 , Expires: 12/27/2024 Start: 09-27-2024 End: 09-27-2025 GESTATIONAL GLUCOSE SCREEN, 1-HOUR, 50 GRAM, NON-FASTING GESTATIONAL GLUCOSE SCREEN, 1-HOUR, 50 GRAM, NON-FASTING Lab Routine Expected: 09/27/2024, Expires: 09/27/2025 [facility] Work Phone: Comment on above: Expected: 09/27/2024 , Expires: 09/27/2025 Start: 09-27-2024 End: 09-27-2025 SYPHILIS TREPONEMAL W/REFLEX SYPHILIS TREPONEMAL W/REFLEX Lab Routine Expected: 09/27/2024, Expires: 09/27/2025 [facility] Comment on above: Expected: 09/27/2024 , Expires: 09/27/2025 Start: 09-14-2024 End: 12-14-2024 Bacteria identified in Urine by Culture BACTERIAL CULTURE, URINE Microbiology Routine UTI (urinary tract infection) in , antepartum (HCC) Expected: 09/14/2024 (Approximate), Expires: 12/14/2024 [facility] Comment on above: Expected: 09/14/2024 (Approximate), Expires: 12/14/2024 Start: 09-03-2024 End: 09-03-2024 Patient encounter procedure Maternal [facility] Comment on above: Anatomy Scan OB Routine Start: 08-02-2024 End: 08-02-2024 Patient encounter procedure 08/02/2024 3:10 PM EDT Routine Office Visit OB/Gynecology [address] [place] [id number] Polly Hamilton MD [address] [place] [address] OB Routine OB/Gynecology Comment on above: OB Routine Start: 07-05-2024 End: 07-05-2024 Patient encounter procedure Maternal Medicine Comment on above: Nuchal OB Routine Start: 07-05-2024 End: 10-04-2024 Chromosome 21 trisomy [Presence] in Blood or Tissue by Cytogenetics [id number] PLUS Lab Routine 8 weeks gestation of Expected: 07/05/2024, Expires: 10/04/2024 [facility] Comment on above: Expected: 07/05/2024 , Expires: 10/04/2024 Start: 06-07-2024 End: 06-07-2024 Patient encounter procedure 06/07/2024 2:45 PM EST Initial Office Visit OB/Gynecology [address] [place] [address] Leanne Aquino APRN.BROWN SOURER [address] [place] [address] New ob OB/Gynecology Comment on above: New ob Start: 06-07-2024 End: 09-06-2024 ANEMIA REFLEX PANEL [facility] Work Phone: Comment on above: Expected: 06/07/2024 , Expires: 09/06/2024 Start: 06-07-2024 End: 09-06-2024 Comprehensive metabolic 2000 panel - Serum or Plasma [facility] Comment on above: Expected: 06/07/2024 , Expires: 09/06/2024 Start: 06-07-2024 End: 09-06-2024 Hemoglobin A1c in Blood [facility] Comment on above: Expected: 06/07/2024 , Expires: 09/06/2024 Start: 06-07-2024 End: 09-06-2024 Hepatitis B virus surface Ag [Presence] in Serum [facility] Comment on above: Expected: 06/07/2024 , Expires: 09/06/2024 Start: 06-07-2024 End: 09-06-2024 Hepatitis C virus Ab [Presence] in Serum [facility] Comment on above: Expected: 06/07/2024 , Expires: 09/06/2024 Start: 06-07-2024 End: 09-06-2024 HIV 1+2 Ab [Presence] in Serum or Plasma by Immunoassay [facility] Comment on above: Expected: 06/07/2024 , Expires: 09/06/2024 Start: 06-07-2024 End: 06-07-2025 OBSTETRIC ULTRASOUND WHI OBSTETRIC ULTRASOUND WHI Anc Imaging Routine 8 weeks gestation of Expected: 06/07/2024, Expires: 06/07/2025 [facility] Comment on above: Expected: 06/07/2024 , Expires: 06/07/2025 Start: 06-07-2024 End: 09-06-2024 Protein/Creatinine [Mass Ratio] in Urine [facility] Comment on above: Expected: 06/07/2024 , Expires: 09/06/2024 Start: 06-07-2024 End: 09-06-2024 RUBELLA IGG ANTIBODY [facility] Comment on above: Expected: 06/07/2024 , Expires: 09/06/2024 Start: 06-07-2024 End: 09-06-2024 SYPHILIS TREPONEMAL W/REFLEX [facility] Comment on above: Expected: 06/07/2024 , Expires: 09/06/2024 Start: 06-07-2024 End: 09-06-2024 TYPE + SCREEN [facility] Comment on above: Expected: 06/07/2024 , Expires: 09/06/2024 Start: 06-07-2024 End: 06-07-2024 Patient encounter procedure 06/07/2024 10:30 AM EST Routine Office Visit OB/Gynecology [address] [place] [address] Crissy Tom APRN.[facility] [address] [place] [address] Last cycle 04/09/2024, expecting, took 2 at home test OB/Gynecology Comment on above: Last cycle , expecting, took 2 at home test Start: 12-07-2023 Covid-19 Vaccine ( season) Covid-19 Vaccine ( season) [facility] Start: 12-07-2023 Influenza vaccination Influenza Vacc ine (#1) [facility] Start: 12-06-2022 Influenza vaccination Influenza Vacc ine (#1) [facility] Start: 04-07-2022 Depression Assessment Depression Ass essment [facility] Start: 02-11-2022 End: 04-13-2022 Thyrotropin [Units/volume] in Serum or Plasma [facility] Work Phone: Comment on above: Expected: 02/11/2022 , Expires: 04/13/2022 Start: 12-06-2021 Influenza vaccination INFLUENZA (#1) [facility] Start: 04-07-2021 DEPRESSION ASSESSMENT DEPRESSION ASS ESSMENT [facility] Start: 2020 HPV TESTING HPV TESTING [facility] Start: 12-07-2019 Influenza vaccination INFLUENZA (#1) [facility] Start: 2017 HPV Vaccine (1 - 3-d ose SCDM series) HPV Vaccine (1 - 3-dose SCDM series) [facility] Start: 2011 PAP TESTING PAP TESTING [facility] Start: 2009 Hepatitis B Vaccine (1 of 3 - 19+ 3-dose series) Hepatitis B Vaccine (1 of 3 - 19+ 3-dose series) [facility] Start: 2009 Urine microalbumin profile DTAP,TDAP,TD (1 - Tdap) [facility] Start: 2008 Anxiety Screening Anxiety Screening [facility] Start: 2008 Depression Screening Depression Scre ening [facility] Start: 2008 HEPATITIS C SCREENING HEPATITIS C SC ANGÉLICANING [facility] Start: 2008 HIV SCREENING HIV SCREENING [facility] Start: 2002 Adult depression screening assessment DEPRESSION SCREENING [facility] Start: 1990 COVID-19 VACCINE (#1) COVID-19 VACCI NE (#1) [facility] Start: 1990 HEPATITIS B (1 of 3 - 3-dose series) HEPATITIS B (1 of 3 - 3-dose series) [facility] Start: 1990 Hepatitis B Vaccine (1 of 3 - 3-dose series) Hepatitis B Vaccine (1 of 3 - 3-dose series) [facility] Bacteria identified in Urine by Culture BACTERIAL CULTURE, URINE Microbiology Routine 8 weeks gestation of 06/07/2024 3:39 PM EST [facility] Bacteria identified in Urine by Culture BACTERIAL CULTURE, URINE Microbiology Routine 12 weeks gestation of UTI (urinary tract infection) in , antepartum , supervision, high-risk, unspecified trimester 07/05/2024 3:48 PM T [facility] Work Phone: Bacteria identified in Urine by Culture BACTERIAL CULTURE, URINE Microbiology Routine UTI (urinary tract infection) in , antepartum ([facility]) 08/02/2024 3:21 PM EDT [facility] Work Phone: Bacteria identified in Urine by Culture BACTERIAL CULTURE, URINE Microbiology Routine Supervision of high risk in second trimester ([facility]) History of pre-eclampsia UTI (urinary tract infection) in , antepartum ([facility]) 21 weeks gestation of ([facility]) 09/03/2024 3:20 PM [facility] Bacteria identified in Urine by Culture BACTERIAL CULTURE, URINE Microbiology Routine UTI (urinary tract infection) in , antepartum ([facility]) Supervision of high risk in second trimester ([facility]) Chronic hypertension in ([facility]) 24 weeks gestation of ([facility]) Ordered: 09/27/2024 [facility] Comment on above: Ordered: 09/27/2024 Bacteria identified in Urine by Culture BACTERIAL CULTURE, URINE Microbiology Routine UTI (urinary tract infection) in , antepartum ([facility]) Supervision of high risk in second trimester ([facility]) Chronic hypertension in ([facility]) 28 weeks gestation of ([facility]) 10/25/2024 3:01 PM [facility] Work Phone: Chlamydia trachomatis+Neisseria gonorrhoeae DNA [Presence] in Unspecified specimen by KEVIN with probe detection GONORRHEA/CHLAMYDIA NAAT Lab Routine Screen for STD (sexually transmitted disease) 8 weeks gestation of 06/07/2024 3:39 PM [facility] End: 05-29-2021 HCG.beta subunit Qn HCG QUANTITATIVE Lab Routine Threatened miscarriage 1 Occurrences starting 05/29/2020 until 05/29/2021 [facility] Comment on above: 1 Occurrences starti ng 05/29/2020 until 05/29/2021 HCG.beta subunit Qn HCG QUANTITA TIVE Lab Routine Threatened miscarriage 05/29/2020 4:41 PM [facility] End: 01-25-2025 OBSTETRIC ULTRASOUND WHI OBSTETRIC ULTRASOUND WHI Anc Imaging Routine Chronic hypertension in ([facility]) 21 weeks gestation of ([facility]) Once per month for 5 Occurrences starting 09/03/2024 until 01/25/2025 [facility] Work Phone: Comment on above: Once per month for 5 Occurrences starting 09/03/2024 until 01/25/2025 PAP TEST PAP TEST Lab Rou patsy Screening for cervical cancer 8 weeks gestation of 06/07/2024 3:39 PM [facility] Patient Education Kick Counts ED False Labor OB Triage: Return to Hospital or Notify Physician if you Experience: [facility] Work Phone: TRICHOMONAS VAGINALI S NAAT TRICHOMONAS VAGINALIS NAAT Lab Routine Screen for STD (sexually transmitted disease) 8 weeks gestation of 06/07/2024 3:39 PM [facility] UA DIP,URINE HCG (POC) UA DIP,UR INE HCG (POC) Lab Routine UTI (urinary tract infection) in , antepartum (HCC) Ordered: 09/07/2024 [facility] Work Phone: Comment on above: Ordered: 09/07/2024 [facility] Immunizations Immunization Date Immunization Notes Care Provider [facility]2020 tetanus toxoid, redu rosemary diphtheria toxoid, and acellular pertussis vaccine, adsorbed Sheyla Moreno APRN.CNM Work Phone: [facility] 04-05-2019 tetanus toxoid, redu rosemary diphtheria toxoid, and acellular pertussis vaccine, adsorbed Dr. Chiki Gonzales MD Work Phone: [facility] Payers Date Payer Category Payer Self-pay 2024 Unknown [id number] 2023 [facility] BLUE CARD PPO OOS [id number] 2023 Unknown [id number] 2020 Unknown [id number] 2006 Private Health Insurance VIKTORIYA QUINTERO PPO [id number] 2006-Present PPO [id number] Private Health Insurance [id number] Unknown [id number] Unknown [id number] Unknown [id number] Unknown [id number] Unknown [id number] Social History Date Type Detail Facility Start: 08-08-2012 Tobacco smoking stat [facility] Never smoker [facility] Start: 08-08-2012 Alcohol intake Not Asked Stanislaw geiger [facility] Start: 1990 Sex Assigned At Not on file [facility] Start: 12-17-2020 End: 01-16-2021 Exposure to SARS-CoV-2 (event) Not sure [facility] Start: 06-08-2020 End: 01-09-2021 Tobacco smoking status NHIS Ex-smoker [facility] Work Phone: Start: 06-08-2009 End: 06-08-2017 History of tobacco use Current smoker [facility] Work Phone: Start: 06-08-2009 End: 06-08-2017 History of tobacco use Cigarette Smoker [facility] Work Phone: Start: 06-08-2020 End: 05-24-2024 Tobacco use and exposure Smokeless tobacco non-user [facility] Work Phone: Start: 02-20-2021 End: 11-08-2024 Alcohol intake Ex-drinker (finding) [facility] Start: 06-08-2020 Education 16 [facility] Start: 06-08-2020 Alcohol Comment social occasional dr mclaughlin [facility] Start: 02-11-2022 End: 04-09-2023 History of Social function [facility] Start: 02-11-2022 End: 04-09-2023 Tobacco use panel [facility] Start: 03-08-2012 National Score (1-100), lower number is lower risk 51 [facility] Start: 1990 Sex assigned at Female C [facility] Start: 05-20-2024 Gender identity Identifies as female gender (finding) [facility] Start: 06-07-2024 Tobacco use and exposure Former smokeless tobacco user [facility] Start: 06-07-2024 Tobacco Comment Nicotine pouch discontinued 04/2024 [facility] Start: 04-23-2024 [facility] Goals Date Patient Goal Desired Activity /State Personal health goal Mental Status Date Assessment Result Facility 12-06-2024 Cognitive function Level Of Cons ciousness Awake;Alert [facility] Work Phone: Clinical Notes 11-15-2020 to 12-07-2024 Note Date & Type Note Facility 12-07-2024 Progress note Note Date/Time December 07, 2024 8:23am [facility] Medical Records Department [address] [place] [address] Progress Note - OBGYN 12/07/24 0821 MR#: [id number] Acct: [id number] Name: HILLARY FRAIRE Rep #:[id number] : 1990 34 From: Polly Hamilton MD PCP: Dr. Chiki Gonzales MD Status:REG C LI Location: IU802-5 Subjective Subjective Spoke with Dr Elena. Would like renal US with attn to left ureteral stent. Pain di get better over night. Objective Data Objective Data Vital Signs: Vital Signs Temp Pulse Resp BP Pulse Ox 98.5 F 98 16 108/52 L 91 12/07/24 07:12 12/07/24 07:13 12/07/24 07:12 12/07/24 07:13 12/07/24 06:10 Weight: 127 kg Body Mass Index (BMI) 38.0 Assessment & Plan (1) High risk multigravida in third trimester: (2) Hydronephrosis: QUALIFIERS: Hydronephrosis type: with ureteropelvic junction obstruction Qualified Code(s): Q62.11 - Congenital occlusion of ureteropelvic junction (3) Ureteropelvic junction calculus: COMMENT: see urology consult (4) Chronic hypertension affecting : COMMENT: CHTN, no medications (5) Recurrent UTI (urinary tract infection) complicating : QUALIFIERS: Trimester: third trimester Qualified Code(s): O23.43 - Unspecified infection of urinary tract in , third trimester COMMENT: Ecoli UTI in . 12/07/24 0823 <Electronically signed by Polly Hamilton MD> Cosigner Signature (if applicable): CC: ~ Signed [facility] Work Phone: 1(917) 459-414409-02-2025 Radiology Diagnostic study note [facility] Imaging Services [address] [place] [address] [id number] Kidney and Bladder MR#: [id number] Acct: [id number] Name: HILLARY FRAIRE Rep #: [id number] : 1990 F 34 From: Diana Meza MD PCP: Dr. Chiki Gonzales MD Status: [facility] LUANN Study:Kidney and Bladder Date of Exam: 0 12/07/24 Exam# [id number] Ordering Dr: Katy Hamilton MD PROCEDURE: KIDNEY AND BLADDER 12/07/2024 REASON FOR EXAM: INCREASED PAIN Left renal calculus. TECHNIQUE: Procedure Code: USKI Modality: US Procedure: KIDNEY AND BLADDER COMPARISON: December 04, 2024 FINDINGS: Kidneys: Right kidney is 12.3 x 5.9 x 5.2 cm, while the left is 15.4 x 7.3 x 6.6cm. Sheldahl: No collecting system dilation on the right side. However, the left kidney is associated withmoderate hydronephrosis. In the proximal ureter there is an echogenic calculus measuring 16 mm. A stent is seen in the bladder distally, but the stent is not seen proximally; positioning should be confirmed. Cysts or Masses: None Other: Spleen is mildly enlarged at 14.9 cm in length. US/Kidney and Bladder IMPRESSION: Calculus in the proximal ureter on the left with moderate hydronephrosis. The calculus has not significantly moved in position. See above description Reading [id number] CC: Dr. Polly Hamilton MD; Dr. Chiki Gonzales MD ~ Net Washer: Signed [facility]09-02-2025 Progress note [facility] Medical Records Department [address] [place] [address] Progress Note - OBGYN 12/07/24820 MR#: [id number] Acct: [id number] Name: HILLARY FRAIRE Rep #:[id number] : 1990 34 From: Polly Hamilton MD PCP: Dr. Chiki Gonzales MD Status:REG C LUANN Location: [place] [id number] Subjective Subjective Spoke with Dr Elena. Would like renal US with attn to left ureteral stent. Pain di get better over night. Objective Data Objective Data Vital Signs: Vital Signs Temp Pulse Resp BP Pulse Ox 98.5 F 98 16 108/52 L 91 12/07/24 07:12 12/07/24 07:13 12/07/24 07:12 12/07/24 07:13 12/07/24 06:10 Weight: 127 kg Body Mass Index (BMI) 38.0 Assessment & Plan (1) High risk multigravida in third trimester: (2) Hydronephrosis: QUALIFIERS: Hydronephrosis type: with ureteropelvic junction obstruction Qualified Code(s): Q62.11 - Congenital occlusion of ureteropelvic junction (3) Ureteropelvic junction calculus: COMMENT: see urology consult (4) Chronic hypertension affecting : COMMENT: CHTN, no medications (5) Recurrent UTI (urinary tract infection) complicating : QUALIFIERS: Trimester: third trimester Qualified Code(s): O23.43 - Unspecified infection of urinarytract in , third trimester COMMENT: Ecoli UTI in . 12/07/24 0823 Cosigner Signature (if applicable): CC: ~ Signed [facility]09-02-2025 History and physical note Author Polly Hamilton [facility] Note Date/Time December 07, 2024 1:45am [facility] Medical Records Department [address] [place] [address] OB Triage Physician Note 12/07/24 0137 MR#: [id number] Acct: [id number] Name: HILLARY FRAIRE Rep #:[id number] : 1990 34 From: Polly Hamilton MD PCP: Dr. Chiki Gonzales MD Status:ZEE KONG Y [facility] HPI - General General Date of Admission: 12/07/24 Date of Service: 12/07/24 Chief Complaint: increased pain HPI Narrative HILLARY FRAIRE, is a 34 F who presents with increased pain since discharge yesterday. Left ureteral stent place for obstructing stone. Pain had improved and then returned to 8/10. Patient was instructed to return to the hospital for increased pain as the stent may not be working. She took oxy at 6pm without muchimprovement. Tylenol at 11pm that decreased her pain to a 5. No contractions. Nobleeding. Still voiding without difficulty. No nausea. Maternal Data Information Final BRITTANY: 01/14/25 Gestational age: 34+4 [facility] Medical History (Updated 12/07/24 @ 01:[address] Polly Hamilton MD) Hydronephrosis Ureteropelvic junction calculus SROM (spontaneous rupture of membranes) Anxiety Home Medications ?Medication ?Instructions ?Recorded ?Last Taken ?Type kzybrais-cxt-Tk-FA 1 mg 1 tab PO DAILY pregna ncy 01/08/21 12/03/24 History tablet acetaminophen 500 mg tablet 1,000 mg (2 x 500 mg) PO Q 6H PRN 01/13/21 12/07/24 Rx PRN Pain 1-10 Or Fever #0 tabs aspirin 81 mg capsule 81 mg PO DAILY 12/04/2405/01 History cephalexin 500 mg capsule 500 mg PO TID #60 caps 12/06 Unknown Rx oxycodone 5 mg capsule 5 mg PO Q8H PRN pain 5 days #15 12/06/24 12/06/24 Rx caps Allergy/AdvReac Type Severity Reaction Status Date / Time No Known Allergies Allergy Verified 12/07/24 01:02 Surgical History H/O wisdom tooth extraction Social History Smoking Status: Former smoker History 1 Elective abortions Hx Para 0 Spontaneous abortions Hx # Term Pregnancies Ectopic pregnancies Hx # Pregnancies Multiple births # of living children ROS Constitutional Constitutional: Denies fatigue, fever(s) or malaise Gastrointestinal Gastrointestinal: Denies change in bowel habits Genitourinary Genitourinary: Denies burning urination or genital lesions NST FHR Rate Baby A Baseline: 140 Variability:: Moderate Accelerations:: 15 x 15 Decelerations:: None NST Reactive:: Yes Uterine Activity:: none Assessment & Plan (1) High risk multigravida in third trimester: (2) 34 weeks gestation of : (3) Recurrent UTI (urinary tract infection) complicating : QUALIFIERS: Trimester: third trimester Qualified Code(s): O23.43 - Unspecified infection of urinary tract in , third trimester COMMENT: Ecoli UTI in . (4) Pyelonephritis affecting : QUALIFIERS: Trimester: third trimester Qualified Code(s): O23.03 - Infections of kidney in , third trimester (5) Flank pain, acute: (6) Chronic hypertension affecting : COMMENT: CHTN, no medications (7) Ureteropelvic junction calculus: COMMENT: see urology consult (8) Hydronephrosis: QUALIFIERS: Hydronephrosis type: with ureteropelvic junction obstruction Qualified Code(s): Q62.11 - Congenital occlusion of ureteropelvic junction PLAN: Plan Consult urology in AM 12/07/24 0145 <Electronically signed by Polly yanez MD> Date _ Polly Hamilton MD Cosigner Signature (if applicable): Date CC: Dr. Polly Hamilton MD; Dr. Chiki Gonzales MD ~ Signed [facility] Work Phone: 1(914) 705-271209-02-2025 History and physical note [facility] Medical Records Department [address] [place] [address] OB Triage Physician Note 12/07/24 0137 MR#: [id number] Acct: [id number] Name: HILLARY FRAIRE Rep #:[id number] : 1990 34 From: Polly Hamilton MD PCP: Dr. Chiki Gonzales MD Status:REG C LI Y Location: [place] [id number] HPI - General General Date of Admission: 12/07/24 Date of Service: 12/07/24 Chief Complaint: increased pain HPI Narrative HILLARY FRAIRE, is a 34 F who presents with increased pain since discharge yesterday. Left ureteralstent place for obstructing stone. Pain had improved and then returned to 8/10. Patient was instructed to return to the hospital for increased pain as the stent may not be working. She took oxy at 6pm without muchimprovement. Tylenol at 11pm that decreased her pain to a 5. No contractions. Nobleeding. Still voiding without difficulty. No nausea. Maternal Data Information Final BRITTANY: 01/14/25 Gestational age: 34+4 [facility] Medical History (Updated 12/07/24 @ 01:[address] Polly Hamilton MD) Hydronephrosis Ureteropelvic junction calculus SROM (spontaneous rupture of membranes) Anxiety Home Medications ?Medication ?Instructions ?Recorded ?Last Taken ?Type lrzvulaf-yox-Dd-FA 1 mg 1 tab PO DAILY pregna ncy 01/08/21 12/03/24 History tablet acetaminophen 500 mg tablet 1,000 mg (2 x 500 mg) PO Q 6H PRN 01/13/21 12/07/24 Rx PRN Pain 1-10 Or Fever #0 tabs aspirin 81 mg capsule 81 mg PO DAILY 12/04/24 09/0 05/01 History cephalexin 500 mg capsule 500 mg PO TID #60 caps 12/06 Unknown Rx oxycodone 5 mg capsule 5 mg PO Q8H PRN pain 5 days #15 12/06/24 12/06/24 Rx caps Allergy/AdvReac Type Severity Reaction Status Date / Time No Known Allergies Allergy Verified 12/07/24 01:02 Surgical History H/O wisdom tooth extraction Social History Smoking Status: Former smoker History 1 Elective abortions Hx Para 0 Spontaneous abortions Hx # Term Pregnancies Ectopic pregnancies Hx # Pregnancies Multiple births # of living children ROS Constitutional Constitutional: Denies fatigue, fever(s) or malaise Gastrointestinal Gastrointestinal: Denies change in bowel habits Genitourinary Genitourinary: Denies burning urination or genital lesions NST FHR Rate Baby A Baseline: 140 Variability:: Moderate Accelerations:: 15 x 15 Decelerations:: None NST Reactive:: Yes Uterine Activity:: none Assessment & Plan (1) High risk multigravida in third trimester: (2) 34 weeks gestation of : (3) Recurrent UTI (urinary tract infection) complicating : QUALIFIERS: Trimester: third trimester Qualified Code(s): O23.43 - Unspecified infection of urinarytract in , third trimester COMMENT: Ecoli UTI in . (4) Pyelonephritis affecting : QUALIFIERS: Trimester: third trimester Qualified Code(s): O23.03 - Infections of kidney in , third trimester (5) Flank pain, acute: (6) Chronic hypertension affecting : COMMENT: CHTN, no medications (7) Ureteropelvic junction calculus: COMMENT: see urology consult (8) Hydronephrosis: QUALIFIERS: Hydronephrosis type: with ureteropelvic junction obstruction Qualified Code(s): Q62.11 - Congenital occlusion of ureteropelvic junction PLAN: Plan Consult urology in AM 12/07/24 0145 in > Date _ Polly Hamilton MD Cosignzachariah Signature (if applicable): Date CC: Dr. Polly Hamilton MD; Dr. Chiki Gonzales MD ~ Signed [facility]09-01-2025 Consult note Author Darryl Harvey [facility] Note Date/Time December 06, 2024 1:48pm [facility] Medical Records Department [address] [place] [address] Anesthesia Postop Eval I 12/06/24 1045 MR#: [id number] Acct: [id number] Name: HILLARY FRAIRE Rep #:[id number] : 1990 34 From: Darryl Geiger PCP: Dr. Chiki Gonzales MD Status:ADM I N Y Race: C Location: [place] [address] Anesthesia: Postop Eval I Current Vital Signs [...] MD Cosigner Signature: Date CC: ~ Signed [facility] Work Phone: 1(747) 964-357909-01-2025 [facility] Medical Records Department [address] [place] [address] Discharge Summary 12/06/24 1458 MR#: [id number] Acct: [id number] Name: HILLARY FRAIRE Rep #: [id number] : 1990 34 From: Polly Hamilton MD PCP: Dr. Chiki Gonzales MD Status:DIS IN Location: [id number] Providers Date of Admission: 12/04/24 Date of [...] ureteropelvic junction Medications at Discharge Home Medications cnjnoxbi-xtq-Ed-FA 1 mg tablet 1 tab PO DAILY [...] 78.3 H, Lymph % (Auto) 12.4 L, Potter % (Auto) 8.0, Eos % (Auto) 0.2, [...] mg PO TID Qty: 60 0RF Continued fmhfnteo-ang-Op-FA 1 mg Tablet 1 tab PO DAILY [...] can be placed): Home, Self Care 12/06/24 1273 Cosigner Signature (if applicable): CC: Dr. Polly Hamilton MD; Dr. Chiki Gonzales MD [facility]09-01-2025 Consult note [facility] Medical Records Department [address] [place] [address] Anesthesia Postop Eval I 12/06/24 1045 MR#: [id number] Acct: [id number] Name: HILLARY FRAIRE Rep #:[id number] : 1990 34 From: Darryl Geiger PCP: Dr. Chiki Gonzales MD Status:ADM I N Y Race: C Location: [place] 071822- 1 Anesthesia: Postop Eval I Current Vital Signs [...] Postop Eval 1 completed: Yes 12/06/24 1348 MD> Date _ Darryl Harvey MD Cosigner Signature: Date CC: ~ Signed [facility]09-01-2025 Consult note Author Darryl Harvey [facility] Note Date/Time December 06, 2024 10:48am [facility] Medical Records Department [address] [place] [address] Anesthesia Postop Eval II 12/06/24 1047 MR#: [id number] Acct: [id number] Name: HILLARY FRAIRE Rep #:[id number] : 1990 34 From: Darryl Geiger PCP: Dr. Chiki Gonzales MD Status:ADM I N Y Race: C Location: [address] Anesthesia Postop Eval I Sum Postop Eval [...] by Darryl Harvey MD> Date _ Darryl Arnold Signature: Date CC: ~ Signed [facility] Work Phone: 1(281) 619-722109-01-2025 Progress note Author Latesha Elena [facility] Note Date/Time December 06, 2024 10:13am [facility] Medical Records Department [address] [place] [address] Progress Note - Urology 12/06/24 1002 MR#: [id number] Acct: [id number] Name: HILLARY FRAIRE Rep #:[id number] : 1990 34 From: Latesha Geiger PCP: Dr. Chiki Gonzales MD Status:ADM I N Location: [place] [address] Subjective Subjective No issues overnight. She is [...] 78.3 H, Lymph % (Auto) 12.4 L, Potter % (Auto) 8.0, Eos % (Auto) 0.2, [...] Cosigner Signature (if applicable): CC: ~ Signed [facility] Work Phone: 1(862) 721-566509-01-2025 Consult note [facility] Medical Records Department [address] [place] [address] Anesthesia Postop Eval II 12/06/24 1047 MR#: [id number] Acct: [id number] Name: LAWANDA FRAIREY HERNESTO Rep #:[id number] : 1990 34 From: Darryl Geiger PCP: Dr. Chiki Gonzales MD Status:ADM I N Y Race: C Location: [place] 071822- 1 Anesthesia Postop Eval I Sum Postop Eval [...] MD Cosigner Signature: Date CC: ~ Signed [facility]09-01-2025 Procedure note [facility] Medical Records Department [address] [place] [address] Operative Report 12/06/24 1007 MR#: [id number] Acct: [id number] Name: HILLARY FRAIRE Rep #:[id number] : 1990 34 From: Latesha Geiger PCP: Dr. Chiki Gonzales MD Status:ADM I N Location: [place] [address] Operative Report (Standard) Operative Information Date of Procedure: 12/06/24 Pre-Operative Diagnosis: Left ureteropelvic junction stone with obstruction and urinary tract infection Post-Operative Diagnosis: Same Surgery/Procedure Performed: Cystoscopy with left ureteral stent insertion rooming house operator: No Type of Anesthesia: Spinal RN Documented Start/Stop Times: Operation Date: 12/06/24 10:10 Case Time Anesthesia Start 12/06/24 10:08 Into Room 12/06/24 10:08 Procedure Start 12/06/24 10:23 Procedure End 12/06/24 10:29 Anesthesia End 12/06/24 10:37 Out of Room 12/06/24 10:37 Into Recovery 12/06/24 10:41 Procedure Start Time: 10:23 Procedure Stop Time: 10:29 Select all DRAINS/GRAFTS/IMPLANTS that apply: Drains Drain details: 4.5 Samoan x28 cm JJ stent Estimated Blood Loss: [...] stone in the renal pelvis. A 4.5 Samoan 28 cm stent was placed over the wire with good positioning in the renal pelvis as well as the urinary bladder. At this time the bladder was emptied and the cystoscope was removed. She was awakened and taken to the recovery room in good condition. There were no complications during this procedure. Surgical Findings: 4.5 Samoan x 28 cm JJ stent Complications Complications: No Admit VTE Documentation VTE Present on Admission: Yes VTE Mechan Device Prophylaxis: SCD's VTE Pharm Prophylaxis ordered?: No Reason prophylaxis not ordered: Treatment Not Indicated 12/06/24 1048 Cosigner Signature (if applicable): CC: THADDEUS Moreno; Dr. Latesha Elena MD; Dr. Chiki Gonzales MD~ Signed [facility]09-01-2025 Progress note [facility] Medical Records Department [address] [place] [address] Progress Note - Urology 12/06/24 1002 MR#: [id number] Acct: [id number] Name: HILLARY FRAIRE Rep #:[id number] : 1990 34 From: Latesha Geiger PCP: Dr. Chiki Gonzales MD Status:ADM I N Location: [place] [address] Subjective Subjective No issues overnight. She is [...] 78.3 H, Lymph % (Auto) 12.4 L, Potter % (Auto) 8.0, Eos % (Auto) 0.2, [...] Cosigner Signature (if applicable): CC: ~ Signed [facility]09-01-2025 Consult note Author Darryl Harvey [facility] Note Date/Time December 06, 2024 7:04am [facility] Medical Records Department [address] [place] [address] Pre-Anesthesia Evaluation 12/06/24 0701 MR#: [id number] Acct: [id number] Name: HILLARY FRAIRE Rep #:[id number] : 1990 34 From: Darryl Geiger PCP: Dr. 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 Female HX of Motion Sickness HX of N/V After Surgery Non-Smoker Duration of Surgery greater than 60 minutes Number of Risk Factors PONV Score Height & Weight Height & Weight: Anesthesia: Height & Weight Height 6 ft 12/04/24 11:37 Weight: 127.176 kg 12/04/24 11:37 Body Mass Index (BMI) 38.0 12/04/24 11:37 Respiratory Assessment Respiratory Assessment - cooking instructor: Respiratory Tract Infection Hx - cooking instructor Hx Respiratory Tract Infection STOP Sleep Apnea STOP Sleep Apnea - cooking instructor: STOP Sleep Apnea - cooking instructor Hx Hypertension Hx Sleep Apnea CPAP BIPAP Do you snore loudly (louder than talking or can be heard Do you often feel tired/ fatigued/ sleepy during daytime? Has anyone observed you stop breathing during sleep? STOP Results QUESTION #5 FULL TEXT : Do you snore loudly (louder than talking or can be heard through closed doors)? 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 Specify any problems Hx of Preganancy in last 3 Months Nurse Filling Out Transfusion & Questions: Date: Time: Patient unable to answer at this time (ie. 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 - cooking instructor: /Reproductive Hx- cooking instructor Hx Now Gestational Age (in weeks): EDC: [...] 10 ml X1 PRN Administration SALINE FLUSH [facility] Medical History (Updated 12/05/24 @ 13:[address] Adina Krueger MD) Hydronephrosis Ureteropelvic junction calculus SROM (spontaneous rupture of membranes) Anxiety Home Medications ?Medication ?Instructions ?Recorded ?Last Taken ?Type lumnappm-zss-Cr-FA 1 mg 1 tab PO DAILY pregna [...] MD Cosigner Signature: Date CC: ~ Signed [facility] Work Phone: 1(934) 844-516409-01-2025 Consult note [facility] Medical Records Department [address] [place] [address] Pre-Anesthesia Evaluation 12/06/24 07 MR#: [id number] Acct: [id number] Name: HILLARY FRAIRE Rep #:[id number] : 1990 34 From: Darryl Geiger PCP: Dr. 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: Anesthesia History - cooking instructor Hx Hospitalization Any Problems With Anesthesia Cholinesterase [...] take am of surgery PONV 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: 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 Female HX of Motion Sickness HX of N/V After Surgery Non-Smoker Duration of Surgery greater than 60 minutes Number of Risk Factors PONV Score Height & Weight Height & Weight: Anesthesia: Height & Weight Height 6 ft 12/04/24 11:37 Weight: 127.176 kg 12/04/24 11:37 Body Mass Index (BMI) 38.0 12/04/24 11:37 Respiratory Assessment Respiratory Assessment - cooking instructor: Respiratory Tract Infection Hx - cooking instructor Hx Respiratory Tract Infection STOP Sleep Apnea STOP Sleep Apnea - cooking instructor: STOP Sleep Apnea - cooking instructor Hx Hypertension Hx Sleep Apnea CPAP BIPAP Do you snore loudly (louder than talking or can be heard Do you often feel tired/ fatigued/ sleepy during daytime? Has anyone observed you stop breathing during sleep? STOP Results QUESTION #5 FULL TEXT : Do you snore loudly (louder than talking or can be heard through closeddoors)? 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 Specify any problems Hx of Preganancy in last 3 Months Nurse Filling Out Transfusion & Questions: Date: Time: Patient unable to answer at this time (ie. 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 Adina Krueger MD) Hydronephrosis Ureteropelvic junction calculus SROM (spontaneous rupture of membranes) Anxiety Home Medications ?Medication ?Instructions ?Recorded ?Last Taken ?Type uxvialsa-mcr-Be-FA 1 mg 1 tab PO DAILY pregna [...] and no additional complaints, except as documented. 12/06/24 0704 MD> Date _ Darryl Harvey MD Cosignzachariah Signature: Date CC: ~ Signed [facility]08-31-2025 History and physical note Author Adina Krueger [facility] Note Date/Time December 05, 2024 1: 59pm [facility] Medical Records Department [address] [place] [address] OB Triage Physician Note 12/05/24 1333 MR#: [id number] Acct: [id number] Name: HILLARY FRAIRE Rep #:[id number] : 1990 34 From: Adina Krueger MD PCP: Dr. Chiki Gonzales MD Status:ADM I N Y [facility]PI - General General Date of Admission: [...] BRITTANY: 01/14/25 Gestational age: 34 2/7 PFSH PFS Medical History (Updated 12/05/24 @ 13:[address] Adina Krueger MD) Hydronephrosis Ureteropelvic junction calculus SROM (spontaneous rupture of membranes) Anxiety Home Medications ?Medication ?Instructions ?Recorded ?Last Taken ?Type qvzdkamn-vju-Mp-FA 1 mg 1 tab PO DAILY pregna [...] MD; Dr. Adina Krueger MD ~* Signed [facility] Work Phone: 1(913) 864-173108-31-2025 History and physical note [facility] Medical Records Department [address] [place] [address] OB Triage Physician Note 12/05/24 1333 MR#: [id number] Acct: [id number] Name: HILLARY FRAIRE Rep #:[id number] : 1990 34 From: Adina Krueger MD PCP: Dr. Chiki Gonzales MD Status:ADM I N Y Location: [place] [address] HPI - General General Date of Admission: [...] Final BRITTANY: 01/14/25 Gestational age: 34 2/7 [facility] Medical History (Updated 12/05/24 @ 13:[address] Adina Krueger MD) Hydronephrosis Ureteropelvic junction calculus SROM (spontaneous rupture of membranes) Anxiety Home Medications ?Medication ?Instructions ?Recorded ?Last Taken ?Type awqmtgow-pud-Hg-FA 1 mg 1 tab PO DAILY pregna [...] SCDs for VTE prophylaxis 12/05/24 1357 ll > Date _ Adina Krueger MD Cosigner Signature [...] or dysuria or hematuria 12/05/24 1359 ll > Date _ Adina Krueger MD cc: Dr. Chiki Gonzales MD; Dr. Adina Krueger MD ~* Signed [facility]08-31-2025 Consult note Author Latesha Elena [facility] Note Date/Time December 05, 2024 9: 57am [facility] Medical Records Department [address] [place] [address] Consultation 12/05/24 0942 MR#: [id number] Acct: [id number] Name: HILLARY FRAIRE Rep #:[id number] : 1990 34 From: Latesha Geiger PCP: Dr. Chiki Gonzales MD Status:ADM I N Location: [place] [address] Assessment & Plan Assessment/Plan (1) Ureteropelvic junction [...] better having been given intravenous pain control. [facility] Medical History (Updated 12/05/24 @ 09:[address] Latesha Elena MD) Hydronephrosis Ureteropelvic junction calculus SROM (spontaneous rupture of membranes) Anxiety Home Medications ?Medication ?Instructions ?Recorded ?Last Taken ?Type xcsdwrbv-eii-Gv-FA 1 mg 1 tab PO DAILY pregna [...] Sl. Cloudy, Urine pH 7.0, Ur Specific Windham 1.015, Urine Protein 15 H, Urine Glucose [...] 81.3 H, Lymph % (Auto) 12.0 L, Potter % (Auto) 5.4, Eos % (Auto) 0.1, Baso % (Auto) 0.3, Absolute Neuts (auto) 11.2 H, Absolute Lymphs (auto) 1.65, Nucleated RBC % 0 12/04/24 15:54: Creatinine 1.00, Estim Creat Clear Calc 118.54, Est GFR (MDRD) Non-Af 76 Imaging Radiology Impression Abdomen/Pelvis CT 12/04/24 12:51 IMPRESSION: Obstructing stone left UPJ measuring 16 x 11 mm. Left-sided hydronephrosis. Reading Location: [facility] Charges/Coding Urology Urology: Attention Carole 12/05/24 3433 <Electronically signed by Latesha Elena MD> Cosigner Signature (if applicable): CC: THADDEUS Moreno; Dr. Chiki Gonzales MD~ Signed ADDENDUM [...] Elena MD> Cosigner Signature (if applicable): cc: THADDEUS Moreno; Dr. Chiki Gonzales MD ~* Signed [facility] Work Phone: 1(245) 949-573608-31-2025 Consult note [facility] Medical Records Department [address] [place] [address] Consultation 12/05/24 09 MR#: [id number] Acct: [id number] Name: HILLARY FRAIRE Rep #:[id number] : 1990 34 From: Latesha Geiger PCP: Dr. Chiki Gonzales MD Status:ADM I N Location: [place] [address] Assessment & Plan Assessment/Plan (1) Ureteropelvic junction [...] better having been given intravenous pain control. [facility] Medical History (Updated 12/05/24 @ 09:[address] Latesha Elena MD) Hydronephrosis Ureteropelvic junction calculus SROM (spontaneous rupture of membranes) Anxiety Home Medications ?Medication ?Instructions ?Recorded ?Last Taken ?Type xytmypkk-yhb-Jy-FA 1 mg 1 tab PO DAILY pregna [...] Sl. Cloudy, Urine pH 7.0, Ur Specific Windham 1.015, Urine Protein 15 H, Urine Glucose [...] 81.3 H, Lymph % (Auto) 12.0 L, Potter % (Auto) 5.4, Eos % (Auto) 0.1, Baso % (Auto) 0.3, Absolute Neuts (auto) 11.2 H, Absolute Lymphs (auto) 1.65, Nucleated RBC % 0 12/04/24 15:54: Creatinine 1.00, Estim Creat Clear Calc 118.54, Est GFR (MDRD) Non-Af 76 Imaging Radiology Impression Abdomen/Pelvis CT 12/04/24 12:51 IMPRESSION: Obstructing stone left UPJ measuring 16 x 11 mm. Left-sided hydronephrosis. Reading Location: [facility] Charges/Coding Urology Urology: Attention Carole 12/05/24 0957 Cosigner Signature (if applicable): CC: THADDEUS Moreno; Dr. Chiki Gonzales MD~ Signed ADDENDUM [...] as indicated on the consent form. 12/05/24 0957 Cosigner Signature (if applicable): cc: THADDEUS Moreno; Dr. Chiki Gonzales MD ~* Signed [facility]08-31-2025 [facility] Medical Records Department [address] [place] [address] Consultation 12/05/24 0942 MR#: [id number] Acct: [id number] Name: HILLARY FRAIRE Rep #: [id number] : 1990 34 From: Latesha Elena MD PCP: Dr. Chiki Gonzales MD Status:ADM IN Location: [address] Assessment Plan Assessment/Plan (1) Ureteropelvic junction calculus: [...] better having been given intravenous pain control. [facility] Medical History (Updated 12/05/24 @ 09:[address] Latesha Elena MD) Hydronephrosis Ureteropelvic junction calculus SROM (spontaneous rupture of membranes) Anxiety Home Medications ???Medication ???Instructions ???Recorded ???Last Taken ???Type igprfvpd-mvz-Us-FA 1 mg 1 tab PO DAILY 01/08/21 [...] inspection and trachea (more content not included)... [facility]08-30-2025 Evaluation note* Diagnosis Onset Date Resolution [...] hypertension affecti ng chronic December 04 5:00pm [facility] Work Phone: 1(621) 521-486408-30-2025 Evaluation note* Diagnosis Onset Date Resolution Status Admit Date 34 weeks gestation of acute December 04 5:00pm Flank pain, acute acute December 04, 2024 5:00pm High risk multigravida in third trimester acute December 04 5:00pm Hydronephrosis acute November 5:00pm Pyelonephritis affecting acute December 04 5:00pm Recurrent UTI (urinary tract infection) complicating acute December 04 5:00pm Ureteropelvic junction calculus acute December 04 5:00pm Chronic hypertension affecti ng chronic December 04 5:00pm 34 weeks gestation of acute December 07 025 12:45am Flank pain, acute acute 2024 12:45am High risk multigravida in third trimester acute December 07 025 12:45am Hydronephrosis acute December 07, 2024 12:45am Pyelonephritis affecting acute December 07 12:45am Recurrent UTI (urinary tract infection) complicating acute December 07 12:45am Ureteropelvic junction calculus acute December 07 12:45am Chronic hypertension affecti ng chronic December 07 12:45am [facility] Work Phone: 1(281) 817-165608-30-2025 History and physical note Author Sheyla Moreno [facility] Note Date/Time December 04, 2024 12 :48pm [facility] Medical Records Department [address] [place] [address] OB Triage Physician Note 12/04/24 1131 MR#: [id number] Acct: [id number] Name: HILLARY FRAIRE Rep #:[id number] : 1990 34 From: Sheyla ZAVALEAT PCP: Dr. Chiki Gonzales MD Status:ZEE KONG Y Location: [place] [address] HPI - General General Date of Service: [...] prophylaxis. Maternal Data Information Final BRITTANY: 01/14/25 [facility] Medical History (Updated 12/04/24 @ 12:46 by Sheyla Moreno CNM) SROM (spontaneous rupture of membranes) Anxiety Home Medications ?Medication ?Instructions ?Recorded ?Last Taken ?Type ujnohicd-gyh-Ga-FA 1 mg 1 tab PO DAILY pregna [...] but likely Bactrim for further prophylaxis 5) [facility] and notified of patient status above assessment and plan of care. 12/04/24 1248 <Electronically signed by Sheyla Moreno CNM> Date _ Sheyla Moreno CNM Cosigner Signature (if applicable): Date CC: THADDEUS Moreno; Dr. Chiki Gonzales MD ~ Signed [facility] Work Phone: 1(540) 634-660108-30-2025 Radiology Diagnostic study note [facility] Imaging Services [address] [place], [place] [address] Abdomen/Pelvis without Cont MR#: [id number] Acct: [id number] Name: HILLARY FRAIRE Rep #: [id number] : 1990 F 34 From: Kat Paige MD PCP: Dr. Chiki Gonzales MD Status: REG C LUANN Study:Abdomen/Pelvis without Cont Date of Exa m: 12/04/24 Exam# [id number] Ordering Dr: Ruben Moreno CNM PROCEDURE: ABDOMEN/PELVIS [...] x 11 mm. Left-sided hydronephrosis. [facility] CC: THADDEUS Moreno; Dr. Chiki Gonzales MD ~ Net Washer: Signed [facility]08-30-2025 History and physical note [facility] Medical Records Department [address] [place] [address] OB Triage Physician Note 12/04/24 1131 MR#: [id number] Acct: [id number] Name: HILLARY FRAIRE Rep #:[id number] : 1990 34 From: Sheyla ZAVALETA PCP: Dr. Chiki Gonzales MD Status:REG C LI Y Location: [place] [address] HPI - General General Date of Service: [...] prophylaxis. Maternal Data Information Final BRITTANY: 01/14/25 [facility] Medical History (Updated 12/04/24 @ 12:46 by Sheyla Moreno CNM) SROM (spontaneous rupture of membranes) Anxiety Home Medications ?Medication ?Instructions ?Recorded ?Last Taken ?Type kmymdvuv-fdj-Mh-FA 1 mg 1 tab PO DAILY pregna [...] but likely Bactrim for further prophylaxis 5) [facility] and notified of patient status above assessment and plan of care. 12/04/24 1248 CNM> Date _ Sheyla Moreno [facility] Cosigner Signature (if applicable): Date CC: THADDEUS Moreno; Dr. Chiki Gonzales MD ~ Signed [facility]08-30-2025 Telephone encounter Note* Telephone Encounter - Amisha Alberto MD - 12/04/2024 10:16 AM EDT Telephone Encounter Hillary Fraire [id number] Provider: Dr. Baltazar Patient identity verified by name and . Hillary Fraire is a 34 year old at 34w1d. Attempted to call patient x3 regarding pain, sent to voicemail. Voicemail is full, unable to leave message. Amisha Alberto MD [facility] Work Phone: [phone]) 664-492708-30-2025 Miscellaneous Notes* Telephone Encounter - Amisha Alberto MD - 12/04/2024 10:16 AM EDT Telephone Encounter Hillary Fraire [id number] Provider: Dr. Baltazar Patient identity verified by name and . Hillary Fraire is a 34 year old at 34w1d. Attempted to call patient x3 regarding pain, sent to voicemail. Voicemail is full, unable to leave message. Amisha Alberto MD documented [facility] encounterSam[facility]08-25-2025 Progress note* Quick Notes - Sheyla Moreno [...] RTO in 2 weeks Sheyla Moreno APRN.CNM [facility]08-25-2025 Miscellaneous Notes* Quick Notes - Sheyla Moreno [...] weeks Sheyla Moreno APRN.CNM documented in this encounterSam[facility]08-22-2025 Note Indication Evaluation of growth Maternal obesity, [...] 3 oz EFW by: Hadlock (HC-AC-FL) Extended Sole Dyer 6.0 mm Extremities / Bony Struc FL [...] RDMS, RVT Read By: Terra Esparza M.D.MATERNAL [id number] Instructions* Patient Instructions* Apollo Penn LPN - 11/26/2024 10:50 AM EDT SEQUENTIAL SCREENINGS [facility] offers sequential screenings for women who [...] testing. It will require an appointment withour medical instrument technician. This is not an ultrasound performed [...] the above symptoms, contact our office at [phone] and ask to speak with anurse. After hours, you can call doctors registry at [phone] OR call [facility] at [phone] ask to have the doctor director workers compensation paged. If you consider this an emergency, dial 12-06-0 or go to your nearest emergency department. NEED HELP? Are you dealing with a violent or abusive relationship? Are you a victim of rape or sexual assult? Call [facility] ([place]) 24 hour Crisis Hotline: 408.691.1286 or 976-407-6479. MANUAL Your Guide to a Healthy manual is now on-line. Visit [email or web address] to download your free copy documented in this encounterSam[facility]itan Hospital08-04-2025 NoteHNO ID: [id number] Author: KELLY BALTAZAR MD Service: ? Author [...] Sorenson - RTO 2 wks Kelly Baltazar, [facility] Telephone encounter Note* Telephone Encounter - Staci Ho RN - 10/29/2024 3:26 PM EDT Faxed. Staci Ho RN [facility]07-25-2025 Miscellaneous Notes* Telephone Encounter - Staci Ho RN - 10/29/2024 3:26 PM EDT Faxed. Staci Ho RN * Telephone Encounter - Karina Severino RN - 10/29/2024 10:35 AM EDT Breast pump order received from [address] To to sign. Karina Severino RN documented in this encounterSam[facility] Hospital07-25-2025 Telephone encounter Note * Telephone Encounter - Karina Severino RN - 10/29/2024 10:35 AM EDT Breast pump order received from [address] To to sign. Karina Severino RN [facility]07-22-2025 Telephone encounter Note* Telephone Encounter - Galilea Abraham MD - 10/26/2024 4:20 PM EDT Mild anemia so she should start an OTC iron supplement every other day. Galilea Abraham MD [facility] Work Phone: 1(505) 978-354207-22-2025 Miscellaneous Notes* Telephone Encounter - Galilea Abraham MD - 10/26/2024 4:20 PM EDT Mild anemia so she should start an OTC iron supplement every other day. Galilea Abraham MD documented in this encounterSamaritan Hospital07-21-2025 NoteHNO ID: [id number] Author: KELLY BALTAZAR MD Service: ? Author [...] q 4 wks - RTO 2 wks [facility] History of Present illness Narrative* Kelly Baltazar [...] wks Kelly Baltazar DO documented in this encounterSamaritan Hospital07-21-2025 Note Indication Evaluation of growth, Follow-up evaluation [...] 13 oz EFW by: Hadlock (HC-AC-FL) Extended Sole Dyer 6.6 mm Extremities / Bony Struc FL / HC 0.20 Other Structures FHR 148 bpm Anatomy Lateral ventricles: normal Cavum septi pellucidi: normal Cerebellum: normal Cisterna magna: normal Head / Neck Vermis: normal Lips: normal Profile: normal Nose: normal Face Maxilla: normal Mandible: normal 4-chamber view: normal RVOT view: normal LVOT view: normal 3-vessel view: normal 5-oxxhnb-xogfnmk view: normal Heart / Thorax Situs: situs solitus (normal) Aortic arch view: normal Diaphragm: normal Stomach: normal Kidneys: normal Bladder: normal Wants to know sex: yes Performed By: Janene Pinto RDMS Read By: Marbella Mcgee M.D.MATERNAL [id number] Progress note* Quick Notes - Adina Krueger [...] Supervision of high risk in second trimester ([facility]) f/u in 4 weeks, 28 week labs next visit Orders: BACTERIAL CULTURE, URINE Chronic hypertension in ([facility]) checks BP at homew Orders: BACTERIAL CULTURE, URINE 24 weeks gestation of ([facility]) Orders: BACTERIAL CULTURE, URINE Adina Krueger M.D. [facility]06-23-2025 Miscellaneous Notes* Quick Notes - Adina Krueger MD - 09/27/2024 3:40 PM EDT RR- VB No. LOF No. CTXS No. Movement: present. Other c/o: No. Medication list reviewed. SENSITIVE EXAM: Sensitive exam not performed. Physical Exam See Flow Sheet Abd: soft, nontender, gravid Ext: edema: Trace A/P 24w3d Estimated Date of Delivery: 01/14/25 Assessment & Plan UTI (urinary tract infection) in , antepartum ([facility]) just finished antiobiotics Orders: BACTERIAL CULTURE, URINE Supervision of high risk in second trimester ([facility]) f/u in 4 weeks, 28 week labs next visit Orders: BACTERIAL CULTURE, URINE Chronic hypertension in ([facility]) checks BP at homew Orders: BACTERIAL CULTURE, URINE 24 weeks gestation of ([facility]) Orders: BACTERIAL CULTURE, URINE Adina Krueger M.D. documented in this encounterSamaritan Hospital06-23-2025 Instructions* Patient Instructions* Bella Dinero MA - 09/27/2024 3:12 PM EDT Oral Glucose Tolerance Test During Your provider has ordered an oral glucose tolerance test. For more information: My [facility] Gl[facility] Test How do I prepare [...] if you needan appointment. Safe Sleep for [place] For more information: [email or web address] Safe Sleep Healthy babies are safest when sleeping on their backs at nighttime and during naps. Side sleeping is not as safe as back sleeping and is not advised. documented in this encounterSamaritan Hospital06-03-2025 Telephone encounter Note * Telephone Encounter - Elli Barros MD - 09/07/2024 1:15 PM EDT Noted- ordered. I also ordered her prophylaxis assuming this abx will work. (One pill daily for remainder of ) [facility]06-03-2025 Miscellaneous Notes* Telephone Encounter - Elli Barros [...] whole rounds of abx? documented in this encounterSamaritan Hospital06-03-2025 Telephone encounter Note * Telephone Encounter - Staci Ho RN - 09/07/2024 10:16 AM EDT See Pt's Mola.comt message---Would like to try same antibiotic and retest urine on Friday post antibiotic completion. Antibiotic pending along with UA and repeat urine culture if appropriate. Please advise and will contact Pt. Staci Ho RN [facility]06-03-2025 Telephone encounter Note* Telephone Encounter - Elli [...] she finishing the whole rounds of abx? [facility]-30-2025 Progress note* Quick Notes - Elli Barros [...] UA DIP, URINE (POC) Chronic hypertension in (HCC) Growth us starting 28 weeks Orders: OBSTETRIC ULTRASOUND WHI; Standing Obesity in (HCC) NSTs and growth History of pre-eclampsia Continue ASA Orders: BACTERIAL CULTURE, URINE UTI (urinary tract infection) in , antepartum ([facility]) WALKER today- did show nitrates on dip. May consider Prophylactic treatment remainder of - will await culture. Orders: BACTERIAL CULTURE, URINE UA DIP, URINE (POC) 21 weeks gestation of ([facility]) RTO 4 wks Orders: BACTERIAL CULTURE, URINE OBSTETRIC ULTRASOUND WHI; Standing Elli Lopez MD [facility]-30-2025 Miscellaneous Notes* Quick Notes - Elli Barros [...] UA DIP, URINE (POC) Chronic hypertension in (HCC) Growth us starting 28 weeks Orders: OBSTETRIC ULTRASOUND WHI; Standing Obesity in ([facility]) NSTs and growth History of pre-eclampsia Continue ASA Orders: BACTERIAL CULTURE, URINE UTI (urinary tract infection) in , antepartum ([facility]) WALKER today- did show nitrates on dip. May consider Prophylactic treatment remainder of - will await culture. Orders: BACTERIAL CULTURE, URINE UA DIP, URINE (POC) 21 weeks gestation of (HCC) RTO 4 wks Orders: BACTERIAL CULTURE, URINE OBSTETRIC ULTRASOUND WHI; Standing Elli Lopez MD documented in this encounterSamaritan Hospital05-30-2025 Instructions* Patient Instructions* Bella Dinero MA - 09/03/2024 1:53 PM EDT SEQUENTIAL SCREENINGS [facility] offers sequential screenings for women who [...] testing. It will require an appointment withour medical instrument technician. This is not an ultrasound performed [...] the above symptoms, contact our office at [phone] and ask to speak with anurse. After hours, you can call doctors registry at [phone] OR call [facility] at [phone] ask to have the doctor director workers compensation paged. If you consider this an emergency, dial 5-4-3 or go to your nearest emergency department. NEED HELP? Are you dealing with a violent or abusive relationship? Are you a victim of rape or sexual assult? Call [facility] ([place]) 24 hour Crisis Hotline: 674.611.1165 or 347-141-5054. MANUAL Your Guide to a Healthy manual is now on-line. Visit [email or web address] to download your free copy documented in this encounterSamaritan Hospital04-30-2025 Telephone encounter Note * Telephone Encounter - Karina Severino RN - 08/04/2024 10:58 AM EDT Patient notified. Karina Severino RN [facility]04-30-2025 Miscellaneous Notes* Telephone Encounter - Karina Severino RN - 08/04/2024 10:58 AM EDT Patient notified. Karina Severino RN * Telephone Encounter - Radha Hammer APRN.CNP - 08/04/2024 10:50 AM EDT Please notify patient: + UTI Rx for Macrobid sent Push fluids To notify or go to ER with back pain, fever, chills Radha Hammer APRN.MIKE documented in this encounterSam[facility]itan Hospital04-30-2025 Telephone encounter Note * Telephone Encounter - Radha Hammer APRN.CNP - 08/04/2024 10:50 AM EDT Please notify patient: + UTI Rx for Macrobid sent Push fluids To notify or go to ER with back pain, fever, chills Radha Hammer APRN.CNP [facility]04-28-2025 Progress note* Quick Notes - Polly Hamilton [...] ICD10: Z68.38 3. 16 weeks gestation of (HCC) - ICD9: V22.2, ICD10: Z3A.16 4. UTI (urinary tract infection) in , antepartum ([facility]) - ICD9: 646.63, 599.0, ICD10: O23.40 - BACTERIAL CULTURE, URINE Polly Hamilton MD [facility]04-28-2025 Miscellaneous Notes* Quick Notes - Polly Hamilton [...] ASSESSMENT/PLAN: 1. , supervision, high-risk, unspecified trimester ([facility]) - ICD9: V23.9, ICD10: O09.90 (primary diagnosis) 2. BMI 38.0-38.9,adult - ICD9: V85.38, ICD10: Z68.38 3. 16 weeks gestation of ([facility]) - ICD9: V22.2, ICD10: Z3A.16 4. UTI (urinary tract infection) in , antepartum ([facility]) - ICD9: 646.63, 599.0, ICD10: O23.40 - BACTERIAL CULTURE, URINE Polly Hamilton MD documented in this encounterSamaritan Hospital04-28-2025 Instructions* Patient Instructions* Michelle Drake MA - 08/02/2024 3:05 PM EDT SEQUENTIAL SCREENINGS [facility] offers sequential screenings for women who [...] testing. It will require an appointment withour medical instrument technician. This is not an ultrasound performed [...] the above symptoms, contact our office at [phone] and ask to speak with anurse. After hours, you can call doctors registry at [phone] OR call [facility] at [phone] ask to have the doctor director workers compensation paged. If you consider this an emergency, dial [phone] or go to your nearest emergency department. NEED HELP? Are you dealing with a violent or abusive relationship? Are you a victim of rape or sexual assult? Call [facility] ([place]) 24 hour Crisis Hotline: 600.881.3245 or 254-825-8918. MANUAL Your Guide to a Healthy manual is now on-line. Visit [email or web address] to download your free copy [facility] Telephone encounter Note * Telephone Encounter - Kelly Baltazar MD - 07/08/2024 8:24 AM EDT See result note Keflex sent in for +urine cx [facility]-03[facility] Miscellaneous Notes* Telephone Encounter - Kelly Baltazar MD - 07/08/2024 8:24 AM EDT See result note Keflex sent in for +urine cx documented [facility]Sam[facility]25 Progress note* Quick Notes - Kelly Baltazar [...] - RTO 4 wks Kelly Baltazar DO [facility] Miscellaneous Notes* Quick Notes - Kelly Baltazar [...] wks Kelly Baltazar DO documented in this encounterSam[facility]03-31-2025 Instructions* Patient Instructions* iLzzie Kern MA - 07/05/2024 3:11 PM EDT SEQUENTIAL SCREENINGS [facility] offers sequential screenings for women who [...] testing. It will require an appointment withour medical instrument technician. This is not an ultrasound performed [...] the above symptoms, contact our office at [phone] and ask to speak with anurse. After hours, you can call doctors registry at [phone] OR call [facility] at [phone] ask to have the doctor director workers compensation paged. If you consider this an emergency, dial 91-8 or go to your nearest emergency department. NEED HELP? Are you dealing with a violent or abusive relationship? Are you a victim of rape or sexual assult? Call [facility] ([place]) 24 hour Crisis Hotline: 279.145.4069 or 983-528-5735. MANUAL Your Guide to a Healthy manual is now on-line. Visit [email or web address] to download your free copy documented in [facility]Sam[facility]03-[facility]25 Telephone encounter Note * Telephone Encounter - Radha Hammer APRN.CNP - 06/09/2024 8:47 AM EST Please notify patient: + UTI Push fluids Rx for Macrobid sent To notify if symptoms worsening or not improving Radha Hammer APRN.CNP [facility]03-05-2025 Miscellaneous Notes* Telephone Encounter - Radha Hammer APRN.CNP - 06/09/2024 8:47 AM EST Please notify patient: + UTI Push fluids Rx for Macrobid sent To notify if symptoms worsening or not improving Radha Hammer APRN.CNP documented in this encounterSam[facility]03-[facility]-2025 Instructions* Patient Instructions* Winsome Mckeon LPN - 06/07/2024 1:59 PM EST Please select the following link to access the [facility] Your Guide to a Healthy . [email or web address] documented in this encounterSam[facility]itan Hospital03-03-2025 NoteHNO ID: [id number] Author: LEANNE AQUINO APRN.CNP Service: ? 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 As applicable, any other physician, advance practice provider, medical student, or other health professional student that will be observing or involved in the sensitive examination for educational or training purposes was discussed with the Patient or Authorized Training Engineer. The Patient or Authorized Training Engineer has agreed to proceed with the sensitive [...] activity, CRL consistent with LMP. Leanne Aquino APRN.CNP SBIRT Hillary Fraire was given the 4P's [...] Your guide to a health and the Mechanic Insulator. Reviewed midwifery and line installer trolley services that are available. 2) Screening: Hemoglobin [...] Follow up in 4 weeks or sooner pranjel. Leanne Aquino APRN.CNP documented in this encounterSamaritan Hospital02-17-2025 Instructions* Patient Instructions* Crissy Tom APRN.CNM - 05/24/2024 8:10 AM EST As you may already know, morning sickness can often be more appropriately called evening sickness or jeztg-ngpawq-ap-the-day sickness. While there are the paulino few, [...] prevent nausea from starting. vitamins and nausea: Pre-wicho vitamins can sometimes worsen nausea in . [...] medication, Doxylamine, is currently marketed as an syzt-lsl-negfzrf sleeping pill. Ask your practitioner if creating a vitamin B6/Doxylaminecombination with ufiv-amw-vniedxl medications would be safe for you. Prescription [...] as Phenergan, Compazine, Reglan documented in this encounterSamaritan Hospital02-17-2025 NoteHNO ID: [id number] Author: CRISSY TOM APRN.CNM Service: ? Author Type: Garbage Truck Dispatcher Type: Progress Notes Filed: 05/24/2024 10:23 Note [...] Living1 SAB0 IAB0 Ectopic0 Multiple0 Live Births1 [place] History LMP: 03/31/2023 (Exact Date), Having periods Age at Menarche: Age at First : Age at Menopause: [place] History Comments: Sexual Activity: Yes; Male Contraception: Pill PAST MEDICAL HISTORY Diagnosis Date #[id number] Anemia during in third trimester 11/15/2020 fracture [...] discussed with the Patient or Patient's Authorized Training Engineer. As applicable, any other physician, advance practice provider, medical student, or other health professional student that will be observing or involved in the sensitive examination for educational or training purposes was discussed with the Patient or Authorized Training Engineer. The Patient or Authorized Training Engineer has agreed to proceed with the sensitive [...] RTO 2 weeks for NOB Crissy Tom APRN.[facility]02-17-2025 History of Present illness Narrative* Crissy Tom APRN.[facility] - 05/24/2024 7:53 AM EST Hillary Fraire [...] Living1 SAB0 IAB0 Ectopic0 Multiple0 Live Births1 [place] History LMP: 03/31/2023 (Exact Date), Having periods Age at Menarche: Age at First : Age at Menopause: [place] History Comments: Sexual Activity: Yes; Male Contraception: Pill PAST MEDICAL HISTORY Diagnosis Date #[id number] Anemia during in third trimester 11/15/2020 fracture [...] discussed with the Patient or Patient's Authorized Training Engineer. As applicable, any other physician, advance practice provider, medical student, or other health professional student that will be observing or involved in the sensitive examination for educational or training purposes was discussed with the Patient or Authorized Training Engineer. The Patient or Authorized Training Engineer has agreed to proceed with the sensitive [...] NOB Crissy Tom APRN.CNM documented in this encounterSam[facility]02-05-2025 Telephone encounter Note * Telephone Encounter - Polly Peace RN - 05/12/2024 11:29 AM EST LMP Approximately 4w5d [facility]02-05-[facility] Miscellaneous Notes* Telephone Encounter - Polly Peace RN - 05/12/2024 11:29 AM EST LMP 04/09 Approximately 4w5d documented in this encounterSam[facility] Hospital11-29-2023 Miscellaneous Notes* Telephone Encounter - Sheyla Moreno [...] you, Sheyla Moreno APRN.CNM documented in this encounterSamaritan Hospital10-16-2023 Miscellaneous Notes* Telephone Encounter - Abram Sim RN - 01/20/2023 11:12 AM EDT Patient aware she needs to schedule annual exam. Requested Prescriptions Pending Prescriptions Disp Refills Norethindrone, Contraceptive, (JENCYCLA) 0.35 mg tablet 90 tablet 0 Sig: Take 1 tablet by mouth once daily. ABRAM SIM RN documented in this encounterSamaritan Hospital11-25-2022 Miscellaneous Notes* Telephone Encounter - Pavithra James LPN - 03/01/2022 4:34 PM EST Pt notified. Pavithra James LPN * Telephone Encounter - Sheyla Moreno APRN.CNM - 03/01/2022 4:28 PM EST Please refer to medication list safety in for patient. Sheyla Moreno APRN.CNM * Telephone Encounter - Pavithra James LPN - 03/01/2022 9:20 AM EST Please see pt's [employer] message and further advise. Pavithra James LPN documented in this encounterSamaritan Hospital11-10-2022 Miscellaneous Notes* Telephone Encounter - Sheyla Moreno APRN.CNM - 02/14/2022 10:05 AM EST [email or web address] message sent to patient in results. Sheyla Moreno APRN.CNM documented in this encounterSamaritan Hospital11-07-2022 History of Present illness Narrative* Sheyla Moreno [...] L1 SAB0 IAB0 Ectopic0 Multiple0 Live Births1 [place] History LMP: 02/06/2022 (Exact Date), Unknown Age at Menarche: Age at First : Age at Menopause: [place] History Comments: Sexual Activity: Yes; Male Contraception: Pill PAST MEDICAL HISTORY Diagnosis Date #[id number] Anemia during in third trimester 11/15/2020 fracture [...] external genitalia normal, normal Bartholin's glands, urethra, [place]'s glands, no vulvar lesions, no cervical lesions, [...] needed Sheyla Moreno APRN.CNM documented in this encounterSamaritan Hospital10-24-2022 Miscellaneous Notes* Addendum Note - Kelly Baltazar [...] advise. Zena Villanueva Pss documented in this encounterSamaritan Hospital10-11-2022 Miscellaneous Notes* Telephone Encounter - Eden Lovett RN - 01/15/2022 10:03 AM EDT Refill request received from pharmacy for patients OCP. Patient last seen in office on 02/20/21 forpostpartum exam. PSS: Please contact patient to schedule annual exam. Eden Lovett RN documented in this encounterSamaritan Hospital08-11-2021 History of Past illness Narrative* Problem Noted Date Resolved Date Anemia during in third trimester 11/1502/20/2021 Overview: 12/13/20-Repeat CBC today. Sheyla Moreno APRN.[facility] 11/15/20: ferrous sulfate 325mg BID. Repeat in [...] of this encounter (statuses as of 01/15/2022) [facility] of Past illness Narrative* Problem [...] of this encounter (statuses as of 01/28/2022) [facility] of Past illness Narrative* Problem [...] of this encounter (statuses as of 01/28/2022) [facility] of Past illness Narrative* Problem Noted Date Resolved Date Anemia during in third trimester 11/1502/20/2021 Overview: 12/13/20-Repeat CBC today. Sheyla Moreno APRN.CNM 11/15/20: ferrous sulfate 325mg BID. Repeat in 3-4 weeks. Elil Sorenson MD Supervision of high risk in [...] of this encounter (statuses as of 02/11/2022) [facility] of Past illness Narrative* Problem [...] of this encounter (statuses as of 02/11/2022) [facility] of Past illness Narrative* Problem [...] of this encounter (statuses as of 02/14/2022) [facility] of Past illness Narrative* Problem [...] of this encounter (statuses as of 03/01/2022) [facility] of Past illness Narrative* Problem [...] of this encounter (statuses as of 01/20/2023) [facility] of Past illness Narrative* Problem [...] of this encounter (statuses as of 03/05/2023) [facility] note* Diagnosis Encounter for surveillance of contraceptive pills- Primary Surveillance of previously prescribed contraceptive pill documented in this encounter [facility] note* Diagnosis Encounter for gynecological examination (general) (routine) without abnormal findings- Primary Malaise and fatigue Other malaise and fatigue Encounter for surveillance of contraceptive pills Surveillance of previously prescribed contraceptive pill documented in this encounter [facility] note* Diagnosis Encounter for surveillance of contraceptive pills Surveillance of previously prescribed contraceptive pill documented in this encounter [facility] note* Diagnosis Missed menses- Primary Absence [...] in first trimester documented in this encounter [facility] note* Diagnosis Missed menses- Primary Absence [...] high-risk, unspecified trimester documented in this encounter [facility] note* Diagnosis Missed menses- Primary Absence of menstruation 6 weeks gestation of state, incidental Spotting in early Spotting complicating , antepartum condition or complication Obesity affecting in first trimester, unspecified obesity type Nausea Nausea alone UTI (urinary tract infection) in , antepartum- Primary Infections of genitourinary tract antepartum documented in this encounter [facility] note* Diagnosis Missed menses- Primary Absence of menstruation 6 weeks gestation of (HCC) state, incidental Spotting in early (HCC) Spotting complicating , antepartum condition or complication Obesity affecting in first trimester, unspecified obesity type ([facility]) Nausea Nausea alone , supervision, high-risk, unspecified trimester ([facility])- Primary 12 weeks gestation of ([facility]) state, incidental UTI (urinary tract infection) in , antepartum ([facility]) Infections of genitourinary tract antepartum Elevated LFTs Other abnormal blood chemistry documented in this encounter [facility] note* Diagnosis Missed menses- Primary Absence of menstruation 6 weeks gestation of ([facility]) state, incidental Spotting in early ([facility]) Spotting complicating , antepartum condition or complication Obesity affecting in first trimester, unspecified obesity type ([facility]) Nausea Nausea alone Bacteria in urine- Primary Other nonspecific finding on examination of urine documented in this encounter [facility] note* Diagnosis Missed menses- Primary Absence of menstruation 6 weeks gestation of ([facility]) state, incidental Spotting in early ([facility]) Spotting complicating , antepartum condition or complication Obesity affecting in first trimester, unspecified obesity type ([facility]) Nausea Nausea alone 8 weeks gestation of ([facility]) state, incidental documented in this encounter [facility] note* Diagnosis Missed menses- Primary Absence of menstruation 6 weeks gestation of ([facility]) state, incidental Spotting in early ([facility]) Spotting complicating , antepartum condition or complication Obesity affecting in first trimester, unspecified obesity type ([facility]) Nausea Nausea alone , supervision, high-risk, unspecified trimester ([facility])- Primary BMI 38.0-38.9,adult Body Mass Index 38.0-38.9, adult 16 weeks gestation of ([facility]) state, incidental UTI (urinary tract infection) in , antepartum ([facility]) Infections of genitourinary tract antepartum documented in this encounter [facility] note* Diagnosis Missed menses- Primary Absence of menstruation 6 weeks gestation of (HCC) state, incidental Spotting in early (HCC) Spotting complicating , antepartum condition or complication Obesity affecting in first trimester, unspecified obesity type (HCC) Nausea Nausea alone UTI (urinary tract infection) in , antepartum ([facility])- Primary Infections of genitourinary tract antepartum documented in this encounter [facility] note* Diagnosis Missed menses- Primary Absence of menstruation 6 weeks gestation of (HCC) state, incidental Spotting in early (HCC) Spotting complicating , antepartum condition or complication Obesity affecting in first trimester, unspecified obesity type ([facility]) Nausea Nausea alone Supervision of high risk in second trimester ([facility])- Primary Unspecified high-risk Chronic hypertension in ([facility]) Benign essential hypertension complicating , childbirth, and the puerperium, unspecified as to episode of care Obesity in ([facility]) Obesity complicating , childbirth, or the puerperium, unspecified as to episode of care or not applicable History of pre-eclampsia UTI (urinary tract infection) in , antepartum ([facility]) Infections of genitourinary tract antepartum 21 weeks gestation of ([facility]) state, incidental * Assessment & Plan Note [...] UTI (urinary tract infection) in , antepartum ([facility]) WALKER today- did show nitrates on dip. May consider Prophylactic treatment remainder of - will await culture. Orders: BACTERIAL CULTURE, URINE UA DIP, URINE (POC) documented [facility] this encounter [facility]* Diagnosis Missed menses- Primary Absence of menstruation 6 weeks gestation of ([facility]) state, incidental Spotting in early ([facility]) Spotting complicating , antepartum condition or complication Obesity affecting in first trimester, unspecified obesity type ([facility]) Nausea Nausea alone Encounter for anatomic survey ([facility])- Primary Encounter for anatomic survey 8 weeks gestation of ([facility]) state, incidental Obesity affecting in second trimester, unspecified obesity type ([facility]) Supervision of high risk in second trimester ([facility])- Primary Unspecified high-risk Chronic hypertension in ([facility]) Benign essential hypertension complicating , childbirth, and the puerperium, unspecified as to episode of care Obesity in ([facility]) Obesity complicating , childbirth, or the puerperium, unspecified as to episode of care or not applicable History of pre-eclampsia UTI (urinary tract infection) in , antepartum ([facility]) Infections of genitourinary tract antepartum 21 weeks gestation of (HCC) state, incidental documented in this encounter [facility] note* Diagnosis Missed menses- Primary Absence [...] genitourinary tract antepartum 21 weeks gestation of ([facility]) state, incidental UTI (urinary tract infection) in , antepartum (HCC) Infections of genitourinary tract antepartum documented in this encounter [facility] note* Diagnosis Missed menses- Primary Absence of menstruation 6 weeks gestation of (HCC) state, incidental Spotting in early (HCC) Spotting complicating , antepartum condition or complication Obesity affecting in first trimester, unspecified obesity type ([facility]) Nausea Nausea alone Supervision of high risk in second trimester ([facility])- Primary Unspecified high-risk Chronic hypertension in (HCC) [...] 24 weeks gestation of (HCC) state, incidental * Assessment & Plan Note [...] BACTERIAL CULTURE, URINE [facility]* Diagnosis Missed menses- Primary Absence of menstruation 6 weeks gestation of ([facility]) state, incidental Spotting in early ([facility]) Spotting complicating , antepartum condition or complication Obesity affecting in first trimester, unspecified obesity type ([facility]) Nausea Nausea alone Supervision of high risk in second trimester ([facility])- Primary Unspecified high-risk Chronic hypertension in ([facility]) Benign essential hypertension complicating , childbirth, and the puerperium, unspecified as to episode of care Obesity in ([facility]) Obesity complicating , childbirth, or the puerperium, unspecified as to episode of care or not applicable History of pre-eclampsia UTI (urinary tract infection) in , antepartum ([facility]) Infections of genitourinary tract antepartum 21 weeks gestation of ([facility]) state, incidental Supervision of high risk in second trimester ([facility])- Primary Unspecified high-risk UTI (urinary tract infection) in , antepartum ([facility]) Infections of genitourinary tract antepartum Chronic hypertension in ([facility]) Benign essential hypertension complicating , childbirth, and the puerperium, unspecified as to episode of care 24 weeks gestation of ([facility]) state, incidental UTI (urinary tract infection) in , antepartum ([facility])- Primary Infections of genitourinary tract antepartum Supervision of high risk in second trimester ([facility]) Unspecified high-risk Chronic hypertension in (HCC) Benign essential hypertension complicating , childbirth, and the puerperium, unspecified as to episode of care 28 weeks gestation of ([facility]) state, incidental documented in this encounter [facility] note* Diagnosis Missed menses- Primary Absence of menstruation 6 weeks gestation of (HCC) state, incidental Spotting in early (HCC) Spotting complicating , antepartum condition or complication Obesity affecting in first trimester, unspecified obesity type ([facility]) Nausea Nausea alone Supervision of high risk in second trimester ([facility])- Primary Unspecified high-risk Chronic hypertension in (HCC) Benign essential hypertension complicating , childbirth, and the puerperium, unspecified as to episode of care Obesity in (HCC) Obesity complicating , childbirth, or the puerperium, unspecified as to episode of care or not applicable History of pre-eclampsia UTI (urinary tract infection) in , antepartum ([facility]) Infections of genitourinary tract antepartum 21 weeks gestation of ([facility]) state, incidental Supervision of high risk in second trimester ([facility])- Primary Unspecified high-risk UTI (urinary tract infection) in , antepartum ([facility]) Infections of genitourinary tract antepartum Chronic hypertension in (HCC) Benign essential hypertension complicating , childbirth, and the puerperium, unspecified as to episode of care 24 weeks gestation of ([facility]) state, incidental Encounter for ultrasound to check growth ([facility])- Primary Encounter for routine screening for malformation using ultrasonics Chronic hypertension in (HCC) Benign essential hypertension complicating , childbirth, and the puerperium, unspecified as to episode of care 28 weeks gestation of ([facility]) state, incidental [facility] Diagnosis Missed menses- Primary Absence of menstruation 6 weeks gestation of ([facility]) state, incidental Spotting in early (HCC) Spotting complicating , antepartum condition or complication Obesity affecting in first trimester, unspecified obesity type ([facility]) Nausea Nausea alone Supervision of high risk in second trimester ([facility])- Primary Unspecified high-risk Chronic hypertension in (HCC) Benign essential hypertension complicating , childbirth, and the puerperium, unspecified as to episode of care Obesity in (HCC) Obesity complicating , childbirth, or the puerperium, unspecified as to episode of care or not applicable History of pre-eclampsia UTI (urinary tract infection) in , antepartum (HCC) Infections of genitourinary tract antepartum 21 weeks gestation of ([facility]) state, incidental UTI (urinary tract infection) in , antepartum ([facility])- Primary Infections of genitourinary tract antepartum Supervision of high risk in second trimester ([facility])- Primary Unspecified high-risk UTI (urinary tract infection) in , antepartum ([facility]) Infections of genitourinary tract antepartum Chronic hypertension in ([facility]) Benign essential hypertension complicating , childbirth, and the puerperium, unspecified as to episode of care 24 weeks gestation of ([facility]) state, incidental [facility] Missed menses- Primary Absence of menstruation 6 weeks gestation of ([facility]) state, incidental Spotting in early ([facility]) Spotting complicating , antepartum condition or complication Obesity affecting in first trimester, unspecified obesity type ([facility]) Nausea Nausea alone Supervision of high risk in second trimester ([facility])- Primary Unspecified high-risk Chronic hypertension in ([facility]) Benign essential hypertension complicating , childbirth, and the puerperium, unspecified as to episode of care Obesity in ([facility]) Obesity complicating , childbirth, or the puerperium, unspecified as to episode of care or not applicable History of pre-eclampsia UTI (urinary tract infection) in , antepartum ([facility]) Infections of genitourinary tract antepartum 21 weeks gestation of ([facility]) state, incidental Supervision of high risk in second trimester ([facility])- Primary Unspecified high-risk UTI (urinary tract infection) in , antepartum ([facility]) Infections of genitourinary tract antepartum Chronic hypertension in ([facility]) Benign essential hypertension complicating , childbirth, and the puerperium, unspecified as to episode of care 24 weeks gestation of ([facility]) state, incidental Obesity affecting in first trimester, unspecified obesity type ([facility])- Primary Chronic hypertension in ([facility]) Benign essential hypertension complicating , childbirth, and the puerperium, unspecified as to episode of care [facility] Diagnosis Missed menses- Primary Absence of menstruation 6 weeks gestation of ([facility]) state, incidental Spotting in early ([facility]) Spotting complicating , antepartum condition or complication Obesity affecting in first trimester, unspecified obesity type ([facility]) Nausea Nausea alone Supervision of high risk in second trimester ([facility])- Primary Unspecified high-risk Chronic hypertension in (HCC) Benign essential hypertension complicating , childbirth, and the puerperium, unspecified as to episode of care Obesity in ([facility]) Obesity complicating , childbirth, or the puerperium, unspecified as to episode of care or not applicable History of pre-eclampsia UTI (urinary tract infection) in , antepartum ([facility]) Infections of genitourinary tract antepartum 21 weeks gestation of ([facility]) state, incidental Supervision of high risk in second trimester ([facility])- Primary Unspecified high-risk UTI (urinary tract infection) in , antepartum ([facility]) Infections of genitourinary tract antepartum Chronic hypertension in (HCC) Benign essential hypertension complicating , childbirth, and the puerperium, unspecified as to episode of care 24 weeks gestation of ([facility]) state, incidental , supervision, high-risk, unspecified trimester ([facility])- Primary Antepartum anemia complicating in third trimester (HCC) Chronic hypertension in (HCC) Benign essential hypertension complicating , childbirth, and the puerperium, unspecified as to episode of care Obesity affecting in third trimester, unspecified obesity type ([facility]) Generalized anxiety disorder 33 weeks gestation of (HCC) state, incidental [facility] Dis[facility] instructionsAdditional Instructions keep already scheduled apt for 12/13/2024 w F.[facility] Work Phone: Reason for referral (narrative)No reason for referral information availableWSt. Mary[facility] Work Phone: Reason for visit Narrative* Diagnostic Procedure Only (Routine) - Closed Specialty Diagnoses / Procedures Referred By Omid robb [facility] Diagnoses 8 weeks gestation of ([facility]) Procedures OBSTETRIC ULTRASOUND WHI US PREG UTERUS AFTER 1ST TRIMEST 1/1ST GESTATION Leanne Aquino, NII.BROWN SOURER [address] [place] [address] Phone: tel: fax: [address] [phone] Referral ID Status Reason Start Date Expiration Date V isits Requested Visits Authorized [id number] Closed Auto-Generate d Referral 06/21/2024 04/06/2025 1 1 [facility] N[facility]* Diagnostic Procedure Only (Routine) - Authorized Specialty Diagnoses / Procedures Referred By Omid robb Referred To Contact [facility] Diagnoses Chronic hypertension in (HCC) 21 weeks gestation of (HCC) Procedures OBSTETRIC ULTRASOUND WHI US PREG UTERUS AFTER 1ST TRIMEST GESTATION Elli Barros MD [address] [place] [address] Phone: tel: fax: [facility] [address] [place] [phone] Referral ID Status Reason Start Date Expiration Date Visits Requested Visits Authorized [id number] Authorized Auto-Generat ed Referral 04/07/2024 04/06/2025 5 5 [facility] Diagnosis Threatened miscarriage- Primary Threatened [...] Chronic hypertension affecting December 04, 2024 5:00pm Chief Complaint Admit Date PYELONEPHRITIS December 04, 2024 5: 00pm PYELONEPHRITIS December 05, 2024 9: 42am PYELONEPHRITIS December 06, 2024 10:02am R/O LABOR December 07, 2024 12:45am Reason for Visit Admit Date 34 weeks [...] Chronic hypertension affecting December 04, 2024 5:00pm 34 weeks gestation of Septembe r 2024 12:45am Flank pain, acute December 07, 2024 12:45am High risk multigravida in third trimeste r December 07, 2024 12:45am Hydronephrosis December 07, 2024 12:45am Pyelonephritis affecting Septe mb 2024 12:45am Recurrent UTI (urinary tract infection) complicating December 07, 2024 12:45am Ureteropelvic junction calculus Septembe r 2024 12:45am Chronic hypertension affecting December 07, 2024 12:45am Additional Source Comments Source Comments (unrecognize d section and content) In the event this informatio n is protected by the Federal Confidentiality of Alcohol and Drug Abuse Patient Records regulations: The Federal rules restrict any use of the information to criminally investigate or prosecute any alcohol or drug abuse patient.[facility]In the event this information is protected by the Federal Confidentiality of Alcohol and Drug Abuse Patient Records regulations: The Federal rules restrict any use of the information to criminally investigate or prosecute any alcohol or drug abuse patient.[facility] the event this information is protected by the Federal Confidentiality of Alcohol and Drug Abuse Patient Records regulations: The Federal rules restrict any use of the information to criminally investigate or prosecute any alcohol or drug abuse patient.[facility] HospitalIn the event this information is protected by the Federal Confidentiality of Alcohol and Drug Abuse Patient Records regulations: The Federal rules restrict any use of the information to criminally investigate or prosecute any alcohol or drug abuse patient.[facility] HospitalIn the event this information is protected by the Federal Confidentiality of Alcohol and Drug Abuse Patient Records regulations: The Federal rules restrict any use of the information to criminally investigate or prosecute any alcohol or drug abuse patient.[facility] HospitalIn the event this information is protected by the Federal Confidentiality of Alcohol and Drug Abuse Patient Records regulations: The Federal rules restrict any use of the information to criminally investigate or prosecute any alcohol or drug abuse patient.[facility] HospitalIn the event this information is protected by the Federal Confidentiality of Alcohol and Drug Abuse Patient Records regulations: The Federal rules restrict any use of the information to criminally investigate or prosecute any alcohol or drug abuse patient.[facility] HospitalIn the event this information is protected by the Federal Confidentiality of Alcohol and Drug Abuse Patient Records regulations: The Federal rules restrict any use of the information to criminally investigate or prosecute any alcohol or drug abuse patient.[facility] HospitalIn the event this information is protected by the Federal Confidentiality of Alcohol and Drug Abuse Patient Records regulations: The Federal rules restrict any use of the information to criminally investigate or prosecute any alcohol or drug abuse patient.[facility] HospitalIn the event this information is protected by the Federal Confidentiality of Alcohol and Drug Abuse Patient Records regulations: The Federal rules restrict any use of the information to criminally investigate or prosecute any alcohol or drug abuse patient.[facility] HospitalIn the event this information is protected by the Federal Confidentiality of Alcohol and Drug Abuse Patient Records regulations: The Federal rules restrict any use of the information to criminally investigate or prosecute any alcohol or drug abuse patient.[facility] HospitalIn the event this information is protected by the Federal Confidentiality of Alcohol and Drug Abuse Patient Records regulations: The Federal rules restrict any use of the information to criminally investigate or prosecute any alcohol or drug abuse patient.[facility] HospitalIn the event this information is protected by the Federal Confidentiality of Alcohol and Drug Abuse Patient Records regulations: The Federal rules restrict any use of the information to criminally investigate or prosecute any alcohol or drug abuse patient.[facility] HospitalIn the event this information is protected by the Federal Confidentiality of Alcohol and Drug Abuse Patient Records regulations: The Federal rules restrict any use of the information to criminally investigate or prosecute any alcohol or drug abuse patient.[facility] HospitalIn the event this information is protected by the Federal Confidentiality of Alcohol and Drug Abuse Patient Records regulations: The Federal rules restrict any use of the information to criminally investigate or prosecute any alcohol or drug abuse patient.[facility] HospitalIn the event this information is protected by the Federal Confidentiality of Alcohol and Drug Abuse Patient Records regulations: The Federal rules restrict any use of the information to criminally investigate or prosecute any alcohol or drug abuse patient.[facility] HospitalIn the event this information is protected by the Federal Confidentiality of Alcohol and Drug Abuse Patient Records regulations: The Federal rules restrict any use of the information to criminally investigate or prosecute any alcohol or drug abuse patient.[facility] HospitalIn the event this information is protected by the Federal Confidentiality of Alcohol and Drug Abuse Patient Records regulations: The Federal rules restrict any use of the information to criminally investigate or prosecute any alcohol or drug abuse patient.[facility] HospitalIn the event this information is protected by the Federal Confidentiality of Alcohol and Drug Abuse Patient Records regulations: The Federal rules restrict any use of the information to criminally investigate or prosecute any alcohol or drug abuse patient.[facility] HospitalIn the event this information is protected by the Federal Confidentiality of Alcohol and Drug Abuse Patient Records regulations: The Federal rules restrict any use of the information to criminally investigate or prosecute any alcohol or drug abuse patient.[facility] HospitalIn the event this information is protected by the Federal Confidentiality of Alcohol and Drug Abuse Patient Records regulations: The Federal rules restrict any use of the information to criminally investigate or prosecute any alcohol or drug abuse patient.[facility] HospitalIn the event this information is protected by the Federal Confidentiality of Alcohol and Drug Abuse Patient Records regulations: The Federal rules restrict any use of the information to criminally investigate or prosecute any alcohol or drug abuse patient.[facility] HospitalIn the event this information is protected by the Federal Confidentiality of Alcohol and Drug Abuse Patient Records regulations: The Federal rules restrict any use of the information to criminally investigate or prosecute any alcohol or drug abuse patient.[facility] HospitalIn the event this information is protected by the Federal Confidentiality of Alcohol and Drug Abuse Patient Records regulations: The Federal rules restrict any use of the information to criminally investigate or prosecute any alcohol or drug abuse patient.[facility] HospitalIn the event this information is protected by the Federal Confidentiality of Alcohol and Drug Abuse Patient Records regulations: The Federal rules restrict any use of the information to criminally investigate or prosecute any alcohol or drug abuse patient.[facility] HospitalIn the event this information is protected by the Federal Confidentiality of Alcohol and Drug Abuse Patient Records regulations: The Federal rules restrict any use of the information to criminally investigate or prosecute any alcohol or drug abuse patient.[facility] HospitalIn the event this information is protected by the Federal Confidentiality of Alcohol and Drug Abuse Patient Records regulations: The Federal rules restrict any use of the information to criminally investigate or prosecute any alcohol or drug abuse patient.[facility] HospitalIn the event this information is protected by the Federal Confidentiality of Alcohol and Drug Abuse Patient Records regulations: The Federal rules restrict any use of the information to criminally investigate or prosecute any alcohol or drug abuse patient.[facility] HospitalIn the event this information is protected by the Federal Confidentiality of Alcohol and Drug Abuse Patient Records regulations: The Federal rules restrict any use of the information to criminally investigate or prosecute any alcohol or drug abuse patient.[facility] HospitalIn the event this information is protected by the Federal Confidentiality of Alcohol and Drug Abuse Patient Records regulations: The Federal rules restrict any use of the information to criminally investigate or prosecute any alcohol or drug abuse patient.[facility] HospitalIn the event this information is protected by the Federal Confidentiality of Alcohol and Drug Abuse Patient Records regulations: The Federal rules restrict any use of the information to criminally investigate or prosecute any alcohol or drug abuse patient.[facility] HospitalIn the event this information is protected by the Federal Confidentiality of Alcohol and Drug Abuse Patient Records regulations: The Federal rules restrict any use of the information to criminally investigate or prosecute any alcohol or drug abuse patient.[facility] HospitalIn the event this information is protected by the Federal Confidentiality of Alcohol and Drug Abuse Patient Records regulations: The Federal rules restrict any use of the information to criminally investigate or prosecute any alcohol or drug abuse patient.[facility] HospitalIn the event this information is protected by the Federal Confidentiality of Alcohol and Drug Abuse Patient Records regulations: The Federal rules restrict any use of the information to criminally investigate or prosecute any alcohol or drug abuse patient.[facility] Reason for Visit (unrecogniz ed section and content) Reason Comments Care + test Reason Comments Refill Request Reason Onset Date Comments Refill Request 01/28/2022 Reason Comments Well Woman Specialty Diagnoses / Procedures Referred By Omid t Referred To Contact [employer] [facility] Diagnoses Annual Exam Procedures Annual Exam Sheyla Moreno APRN.THADDEUS [address] [place] [address] [facility] [address] [place] [address] Referral ID Status Reason Start Date Expiration Date Visits Requested Visits Authorized [id number] Denied Financial Clearance Required - OON Payor OON Notification Letter Clearance Not Met - Admin/Wireline Operator/D irector Advise to Postpone/Resched ule or Not [...] Referred By Contac t Referred To Contact [facility] Diagnoses 8 weeks gestation of (HCC) Procedures OBSTETRIC ULTRASOUND WHI US PREG UTERUS AFTER 1ST TRIMEST GESTATION Leanne Aquino, NII.MIKE [address] [place] [address] Phone: tel: fax: [place] [phone] Referral ID Status Reason Start Date Expiration Date V isits Requested Visits Authorized [id number] Closed Auto-Generate d Referral 08/20/2024 04/06/2025 1 1 Reason Comments Breast Pump Specialty Diagnoses / Procedures Referred By Contac t Referred To Contact [facility] Diagnoses Chronic hypertension in (HCC) 21 weeks gestation of (HCC) Procedures OBSTETRIC ULTRASOUND WHI US PREG UTERUS AFTER 1ST TRIMEST GESTATION Elli Barros MD [address] [place] [address] Phone: tel: fax: [address] [phone] Referral ID Status Reason Start Date Expiration Date Visits Requested Visits Authorized [id number] Authorized Auto-Generat ed Referral 04/07/2024 04/06/2025 5 5 Reason Onset Date Comments Care 11/26/2024 Telephone Encounter - Terra Fuentes LPN - 05/29/2020 4:13 PM ESTTelephone Encounter - Sheyla Moreno (Thaddeus) - 05/29/2020 3:57 PM EST Miscellaneous Notes (unrecog nized section and content) Patient notified Nothing in the vagina, no intercourse. Will order serum quant. Thank you, Sheyla Moreno, HAM PUMPER.CNM Lmp was 04/25/20 and was only 2 [...] Care Teams (unrecognized sec tion and content) Ceiling Cleaner Relationship Specialty Start Date End Date Chiki Gonzales MD PCP - General Family Medicine 08/08/12 Ceiling Cleaner Relationship Specialty Start Date End Date Chiki Gonzales MD PCP - General Family Medicine 08/08/12 Ceiling Cleaner Relationship Specialty Start Date End Date Chiki Gonzales MD PCP - General Family Medicine 08/08/12 Ceiling Cleaner Relationship Specialty Start Date End Date Chiki Gonzales MD PCP - General Family Medicine 08/08/12 Ceiling Cleaner Relationship Specialty Start Date End Date Chiki Gonzales MD PCP - General Family Medicine 08/08/12 Ceiling Cleaner Relationship Specialty Start Date End Date Chiki Gonzales MD PCP - General Family Medicine 08/08/12 Ceiling Cleaner Relationship Specialty Start Date End Date Chiki Gonzales MD PCP - General Family Medicine 08/08/12 Ceiling Cleaner Relationship Specialty Start Date End Date Chiki Gonzales MD PCP - General Family Medicine 08/08/12 Ceiling Cleaner Relationship Specialty Start Date End Date Chiki Gonzales MD PCP - General Family Medicine 08/08/12 Ceiling Cleaner Relationship Specialty Start Date End Date Chiki Gonzales MD PCP - General Family Medicine 08/08/12 Ceiling Cleaner Relationship Specialty Start Date End Date Chiki Gonzales MD PCP - General Family Medicine 08/08/12 Ceiling Cleaner Relationship Specialty Start Date End Date Chiki Gonzales MD PCP - General Family Medicine 08/08/12 Ceiling Cleaner Relationship Specialty Start Date End Date Chiki Gonzales MD PCP - General Family Medicine 08/08/12 Ceiling Cleaner Relationship Specialty Start Date End Date Chiki Gonzales MD PCP - General Family Medicine 08/08/12 Ceiling Cleaner Relationship Specialty Start Date End Date Chiki Gonzales MD PCP - General Family Medicine 08/08/12 Ceiling Cleaner Relationship Specialty Start Date End Date Chiki Gonzales MD PCP - General Family Medicine 08/08/12 Ceiling Cleaner Relationship Specialty Start Date End Date Chiki Gonzales MD PCP - General Family Medicine 08/08/12 Ceiling Cleaner Relationship Specialty Start Date End Date Chiki Gonzales MD PCP - General Family Medicine 08/08/12 Ceiling Cleaner Relationship Specialty Start Date End Date Chiki Gonzales MD PCP - General Family Medicine 08/08/12 Ceiling Cleaner Relationship Specialty Start Date End Date Chiki Gonzales MD PCP - General Family Medicine 08/08/12 Ceiling Cleaner Relationship Specialty Start Date End Date Chiki Gonzales MD PCP - General Family Medicine 08/08/12 Ceiling Cleaner Relationship Specialty Start Date End Date Chiki Gonzales MD PCP - General Family Medicine 08/08/12 Ceiling Cleaner Relationship Specialty Start Date End Date Chiki Gonzales MD PCP - General Family Medicine 08/08/12 Ceiling Cleaner Relationship Specialty Start Date End Date Chiki Gonzales MD PCP - General Family Medicine 08/08/12 Ceiling Cleaner Relationship Specialty Start Date End Date Chiki Gonzales MD PCP - General Family Medicine 08/08/12 Ceiling Cleaner Relationship Specialty Start Date End Date Chiki Gonzales MD PCP - General Family Medicine 08/08/12 Ceiling Cleaner Relationship Specialty Start Date End Date Chiki Gonzales MD PCP - General Family Medicine 08/08/12 Ceiling Cleaner Relationship Specialty Start Date End Date Chiki Gonzales MD PCP - General Family Medicine 08/08/12 Ceiling Cleaner Relationship Specialty Start Date End Date Chiki Gonzales MD PCP - General Family Medicine 08/08/12 Ceiling Cleaner Relationship Specialty Start Date End Date Chiki Gonzales MD PCP - General Family Medicine 08/08/12 Ceiling Cleaner Relationship Specialty Start Date End Date Chiki [...] Provider Active Sta rt: December 06, 2024 Team Status: Inactive Member Role/Relationship Status Dates Dr. Chiki Gonzales MD Primary Care Provider Active Start: December 07, 2024 End: December 07, 2024 Dr. Polly Hamilton MD Attending Provider Active Start: December 07, 2024 End: December 07, 2024 Dr. Polly Hamilton MD Referring Provider Active Start: December 07, 2024 End: December 07, 2024 INFORMATION SOURCE (unrecogn ized section and content) DATE CREATED AUTHOR 12/05/2024 [facility] DATE CREATED AUTHOR AUTHOR'S ORGANIZ ATION 12/07/[address] [facility] Goals (unrecognized section and content) Goals may be documented in a n alternate sectionGoals may be documented in an alternate section FOR RECORDS PERTAINING TO PATIENTS [...] BE BASED ON THE PRIMARY CLINICAL RECORDS. [employer] provides no warranty or guarantee of the accuracy or completeness of information in this document.
--- NOTE | 2024-12-08 06:52 | PRE.ANES_ITS ---
ASA Classification* ASA Classification ASA Classification: 3 (Patient ACTIVELY : no IV medications without consulting physician other than steve. VERENICE. Just had procedure under spinal on Friday, no issues. Would repeat same spinal dosing as previous case. ) Assessment & Plan Anesthesia* Anesthesia Assessment Anesthesia Assessment: Discussed sedation and/or anesthesia options, risks, benefits, and alternatives with patient/parents/legal guardian/POA. Questions invited. The patient/parents/legal guardian/POA seems to understand and agrees to proceed with anesthesia plan. Reviewed the physical assessment, medical history, allergy history and patient home medications list prior to surgery/procedure/anesthetic and documented any changes. Performed airway and anesthesia risk assessments. Anesthesia Type Anesthesia Type: Spinal (We will do a spinal for this patient due to her to avoid any anesthetic effects to fetus) Anesthesia Focused Assessment* Temperature: 96.9 F Pulse Rate: 100 Blood Pressure: 121/77 Respiratory Rate: 16 Pulse Ox: 99 Oxygen Delivery Method: Room Air Airway Assessment Mouth opens: >3 cm Mallampati Score: III Teeth Condition: Intact Neck Range of motion (ROM): Full ROM Labs Anesthesia Preop lab: CBC WBC 14.8 K/mm3 (4.4-11.0) H 12/06/24 05:45 5 RBC 3.00 M/mm3 (4.2-5.4) L 12/06/24 05:45 12/06/24 Hgb 9.1 g/dL (12.0-15.0) L 12/06/24 05:45 12/06/24 Hct 27.3 % (37-47) L 12/06/24 05:45 12/06/24 Plt Count 167 K/mm3 (150-450) 12/06/24 05:45 12/06/24 CHEMISTRY Potassium 3.7 mmol/L (3.5-5.1) 01/12/21 08:55 01/12/21 Sodium 141 mmol/L (136-145) 01/12/21 08:55 01/12/21 BUN 12 mg/dL (7-18) 01/12/21 08:55 01/12/21 Creatinine 1.00 mg/dL (0.70-1.20) 12/04/24 15:54 12/04/24 Glucose 72 mg/dL (74-106) L 01/12/21 08:55 01/12/21 COAG Pre-Assessment Diagnosis/Proposed Procedure Planned Operative Procedure(s): Stent exchange Anesthesia History Anesthesia History - active directory architect: Anesthesia History - active directory architect Hx Hospitalization Yes: NOV 2024, KIDNEY STONE 12/07/24 13:32 Any Problems With Anesthesia No 12/07/24 13:32 Cholinesterase deficiency No 12/07/24 13:32 You/Your Family Experience No 12/07/24 13:32 fever (hyperthermia) with Relationship Recent Exposure to Contagious No 12/08/24 06:26 Disease Does patient have nerve No 12/07/24 13:32 stimulator Patient instructed to have device shut off --Does patient have Pacemaker or ICD? When Was Last Pacemaker Check QUESTION #4 FULL TEXT: You/Your Family Experience fever (hyperthermia) with Anesthesia Last Oral Intake Last Oral intake: Last Oral Intake NPO since 00:00 12/08/24 06:29 Meds taken in AM with sips of water? 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 - active directory architect: PONV - active directory architect Female Yes 12/07/24 13:32 HX of Motion Sickness No 12/07/24 13:32 HX of N/V After Surgery No 12/07/24 13:32 Non-Smoker Yes 12/07/24 13:32 Duration of Surgery greater No 12/07/24 13:32 than 60 minutes Number of Risk Factors 2 12/07/24 13:32 PONV Score Moderate Risk 12/07/24 13:32 Height & Weight Height & Weight: Anesthesia: Height & Weight Height 6 ft 12/08/24 06:29 Weight: 125 kg 12/08/24 06:29 Body Mass Index (BMI) 37.3 12/08/24 06:29 Respiratory Assessment Respiratory Assessment - active directory architect: Respiratory Tract Infection Hx - active directory architect Hx Respiratory Tract Infection No 12/07/24 13:32 STOP Sleep Apnea STOP Sleep Apnea - active directory architect: STOP Sleep Apnea - active directory architect Hx Hypertension No 12/07/24 13:32 Hx Sleep Apnea No 12/07/24 13:32 CPAP BIPAP Do you snore loudly (louder No 12/07/24 13:32 than talking or can be heard Do you often feel tired/ No 12/07/24 13:32 fatigued/ sleepy during daytime? Has anyone observed you stop No 12/07/24 13:32 breathing during sleep? STOP Results Negative 12/07/24 13:32 QUESTION #5 FULL TEXT : Do you snore loudly (louder than talking or can be heard through closed doors)? 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 Specify any problems Hx of Preganancy in last 3 Yes 12/07/24 13:32 Months Nurse Filling Out Transfusion [email or web address] 12/07/24 13:32 & Questions: Date: 12/07/24 12/07/24 13:32 Time: 13:34 12/07/24 13:32 Patient unable to answer at this time (ie. 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 - active directory architect: /Reproductive Hx- active directory architect Hx Now Yes: 34 WEEKS 12/07/24 13:32 Gestational Age (in weeks): EDC: Hx Hx Para Hx Section SAB No 12/07/24 13:32 Active Medications Active Medications: Current Medications Generic Name Dose Route Start Last Admin Trade Name Freq PRN Reason Stop Dose Admin Cefazolin Sodium 2 gm/ Sodium 110 mls @ 200 mls/hr 12/08/24 07:30 Chloride IV 12/08/24 08:02 INTRAOP ONE Lactated Ringer's 1,000 mls @ 15 mls/hr 12/08/24 06:15 IV .Q48H CECILIA PFSH Medical History Wears glasses Wears contact lenses Low iron Heartburn Hydronephrosis Ureteropelvic junction calculus SROM (spontaneous rupture of membranes) Anxiety Home Medications ?Medication ?Instructions ?Recorded ?Last Taken ?Type ntwsaqpb-[id number]-[id number]-FA 1 mg 1 tab PO DAILY pregna ncy 01/08/21 12/03/24 History tablet acetaminophen 500 mg tablet 1,000 mg (2 x 500 mg) PO Q 6H PRN 01/13/21 12/07/24 Rx PRN Pain 1-10 Or Fever #0 tabs aspirin 81 mg capsule 81 mg PO DAILY 12/04/24 090 05/01 History cephalexin 500 mg capsule 500 mg PO TID #60 caps 12/06 Unknown Rx oxycodone 5 mg capsule 5 mg PO Q8H PRN pain 5 days #15 12/06/24 12/07/24 Rx caps ferrous sulfate 325 mg (65 mg 325 mg PO QODAY 12/07/24 12/03/24 History iron) tablet (Evelyn-Time) Allergy/AdvReac Type Severity Reaction Status Date / Time No Known Allergies Allergy Verified 12/07/24 13:28 Surgical History H/O wisdom tooth extraction Social History Smoking Status: Former smoker Review of Systems (Anesthesia) ROS Narrative System reviewed and no additional complaints, except as documented. Physical Exam Const alert, oriented x3 and average body habitus Resp normal respiratory effort, normal air movement and clear to auscultation bilaterally Cardio regular rate, regular rhythm, no murmurs and diaphoretic
[2024-12-08] MEDS: Lactated Ringers 1,000 ML 15 ML IV (06:56)
--- NOTE | 2024-12-08 07:37 | HP.PCM.SX_ITS ---
HPI - General General Date of Admission: 12/08/24 Date of Service: 12/08/24 Chief Complaint: Left flank pain HPI Narrative ANA DAVIES, is a 34 F who presents for a cystoscopy with left ureteral stent change after her inserted stent migrated and her flank pain returned from obstruction due to a large ureteropelvic junction stone. [facility] Medical History Wears glasses Wears contact lenses Low iron Heartburn Hydronephrosis Ureteropelvic junction calculus SROM (spontaneous rupture of membranes) Anxiety Home Medications ?Medication ?Instructions ?Recorded ?Last Taken ?Type ngjuqamx-gpy-Gz-FA 1 mg 1 tab PO DAILY pregna ncy 01/08/21 12/03/24 History tablet acetaminophen 500 mg tablet 1,000 mg (2 x 500 mg) PO Q 6H PRN 01/13/21 12/07/24 Rx PRN Pain 1-10 Or Fever #0 tabs aspirin 81 mg capsule 81 mg PO DAILY 12/04/2405/01 History cephalexin 500 mg capsule 500 mg PO TID #60 caps 12/06 Unknown Rx oxycodone 5 mg capsule 5 mg PO Q8H PRN pain 5 days #15 12/06/24 12/07/24 Rx caps ferrous sulfate 325 mg (65 mg 325 mg PO QODAY 12/07/24 12/03/24 History iron) tablet (Evelyn-Time) Allergy/AdvReac Type Severity Reaction Status Date / Time No Known Allergies Allergy Verified 12/07/24 13:28 Surgical History H/O wisdom tooth extraction Social History Smoking Status: Former smoker ROS Constitutional Constitutional: Denies anorexia, chills, fatigue or fever(s) Eyes Eyes: Reports systems reviewed and no addt'l complaints, except as documented ENT HEENT: Reports systems reviewed and no addt'l complaints, except as documented Cardiovascular Cardiovascular: Reports systems reviewed and no addt'l complaints, except as documented; Denies chest pain or dyspnea Respiratory/Chest Respiratory/Chest: Reports systems reviewed and no addt'l complaints, except as documented; Denies cough or dyspnea Gastrointestinal Gastrointestinal: Reports abdominal pain and nausea Genitourinary Genitourinary: Reports flank pain; Denies dysuria Musculoskeletal Musculoskeletal: Reports systems reviewed and no addt'l complaints, except as documented Integumentary Integumentary: Reports systems reviewed and no addt'l complaints, except as documented Neurologic Neurologic: Reports systems reviewed and no addt'l complaints, except as documented Psychiatric Psychiatric: Reports systems reviewed and no addt'l complaints, except as documented Endocrine Endocrinology: Reports systems reviewed and no addt'l complaints, except as documented Hematologic/Lymphatic Hematologic/Lymphatic: Reports systems reviewed and no addt'l complaints, except as documented Allergic/Immunologic Allergic/Immunologic: Reports systems reviewed and no addt'l complaints, except as documented Vital Signs Vital Signs Vital Signs: 12/08/24 06:26 12/08/24 06:29 12/08/24 06:54 Temperature 96.9 F L 96.9 F L Temperature Source Temporal Pulse Rate 100 100 Respiratory Rate 16 16 Respiratory Pattern Normal Blood Pressure 121/77 H 121/77 H Blood Pressure Mean 91 Blood Pressure Source Monitor Blood Pressure Position Sitting Blood Pressure Location Left Arm Pulse Ox 99 99 Oxygen Delivery Method Room Air Room Air Weight Weight: 275 lb 9.245 oz Body Mass Index (BMI) 37.3 Physical Exam Const oriented x3 and no apparent distress Resp normal respiratory effort Auscultation: Negative for wheezes Cardio regular rate GI soft to palpation GI Narrative: Gravid Inspection: Negative for abdominal distention Bladder / Kidney Exam: CVA tenderness left Extremity normal to inspection Results Lab / Micro Data Attestation: I reviewed the patient's lab results. Assessment & Plan Assessment/Plan (1) Ureteropelvic junction calculus: (2) Hydronephrosis: QUALIFIERS: Hydronephrosis type: with ureteropelvic junction obstruction Qualified Code(s): Q62.11 - Congenital occlusion of ureteropelvic junction (3) Recurrent UTI (urinary tract infection) complicating : QUALIFIERS: Trimester: third trimester Qualified Code(s): O23.43 - Unspecified infection of urinary tract in , third trimester PLAN: Plan Continue antibiotics Continue supportive care Proceed with cystoscopy and left ureteral stent change The procedure, recovery and expectations were explained. The risks, benefits and alternatives were discussed, including but not limited to, the risks of anesthesia, bleeding, infection, injury, pain and the need for further intervention. We have discussed the risk of exposure to and/or potential harm posed by the COVID-19 virus with having a surgery/procedure at this time. A joint decision was made at this time to proceed with the scheduled surgery/procedure as indicated on the consent form.
[2024-12-08] MEDS: Cefazolin 2 GM in 0.9% Normal Saline (100mL Bag) 100 ML IV (07:40)
[2024-12-08] MEDS: Cefazolin 1 GM/5 ML Vial 2 GM IV (07:40)
--- NOTE | 2024-12-08 07:40 | DCINST_ITS ---
Discharge Instructions Diet Discharge Diet: No restrictions Activity Discharge Activity: Return to Normal Activity Dressing / Incision Call your doctor if you observe: Fever of 101 or Higher, Inability to urinate and Inability to have a bowel movement Follow Up Care Please Follow Up With: Latesha Elena MD Test Results: Test results from this visit will be discussed in further detail at your follow- up appointment, if applicable. Discharge Plan Admission Attending Provider: Latesha Elena Primary Care Provider: Madison Butler Instructions Print Language: Indonesian Discharge Orders/Prescriptions Prescriptions: Continued akzzakot-wsj-Mr-FA 1 mg Tablet 1 tab PO DAILY acetaminophen 500 mg Tablet 1,000 mg PO Q6H PRN PRN (Reason: Pain 1-10 Or Fever) Qty: 0 0RF aspirin 81 mg capsule 81 mg PO DAILY oxycodone 5 mg capsule 5 mg PO Q8H PRN (Reason: pain) 5 Days Qty: 15 0RF cephalexin 500 mg capsule 500 mg PO TID Qty: 60 0RF ferrous sulfate [Evelyn-Time] 325 mg (65 mg iron) tablet 325 mg PO QODAY Referrals / Follow Up: Madison Butler, [facility] [employer] [employer] [facility] [Primary Care Provider] - Disposition Disposition (needs filled in before D/C Order can be placed): Home, Self Care
--- NOTE | 2024-12-08 07:41 | OP.PCM_ITS ---
Operative Report (Standard) Operative Information Date of Procedure: 12/08/24 Pre-Operative Diagnosis: Left ureteropelvic junction stone with obstruction, UTI Post-Operative Diagnosis: Same Surgery/Procedure Performed: Cystoscopy with left ureteral stent change electric lineman: No Type of Anesthesia: Spinal RN Documented Start/Stop Times: Operation Date: 12/08/24 07:30 Case Time Into Pre-Op 12/08/24 06:02 Out of Pre-Op 12/08/24 07:33 Anesthesia Start 12/08/24 07:39 Into Room 12/08/24 07:39 Procedure Start 12/08/24 08:01 Procedure End 12/08/24 08:06 Anesthesia End 12/08/24 08:14 Out of Room 12/08/24 08:14 Into Recovery 12/08/24 08:16 Into Phase II Recovery 12/08/24 08:55 Out of Recovery 12/08/24 08:55 Out of Phase II 12/08/24 12:10 Procedure Start Time: 08:01 Procedure Stop Time: 08:06 Select all DRAINS/GRAFTS/IMPLANTS that apply: Drains Drain details: 6 Barbadian by 28 cm JJ stent Estimated Blood Loss: <5cc Specimen collected: No Description of surgery: The patient is a 34-year-old female with a large left ureteropelvic junction stone with obstruction. She is 34 weeks . She had a left ureteral stent inserted 2 days ago. It was a 4.5 Barbadian in diameter stent. Within 12 hours the stent migrated distally in her pain returned in significant fashion. She now presents for a stent change with a larger bore stent. Informed consent was obtained. She was taken to the operating room and placed on the operating room table. Anesthesia monitored the head, neck, airway, IV access and vital signs throug hout the case. Once anesthesia was appropriate administered, she was placed into dorsal lithotomy position and was prepped and draped in usual sterile fashion. A cystoscope was inserted through the urethra under direct visualization into the urinary bladder. The bladder mucosa was visualized in its entirety revealing no evidence of mass, erythema, ulceration. The indwelling left ureteral stent was observed and removed with graspers. A 0.035 Glidewire was then inserted through the ureteral orifice and advanced beyond the stone in the renal pelvis. 6 Barbadian 28 cm stent was placed over the wire with good positioning in the renal pelvis as well as the urinary bladder. At this time the bladder was emptied and the cystoscope was removed. She was awakened and taken to the recovery room in good condition. There were no complications during this procedure. Surgical Findings: Migrated 4.5 Barbadian left ureteral stent, replaced with a 6 Barbadian 28 cm JJ stent Complications Complications: No Admit VTE Documentation VTE Present on Admission: Yes VTE Mechan Device Prophylaxis: SCD's VTE Pharm Prophylaxis ordered?: No Reason prophylaxis not ordered: Treatment Not Indicated
--- NOTE | 2024-12-08 08:20 | PCM.POST.ANE ---
Anesthesia: Postop Eval I Current Vital Signs Temperature: 97.3 F Pulse Rate: 84 Blood Pressure: 127/72 Respiratory Rate: 14 Pulse Ox: 98 Oxygen Delivery Method: Room Air Assessment Airway patent: Yes Spontaneous unlabored respirations: Yes Mental status: Awake nausea: No Vomiting: No Anesthesia Complication: No Fluid Hydration Crystalloid volume administer (ml): 400 Total IV fluid infused: 400 Progress Note Anesthesia document: Postop Eval 1 completed: Yes
== END 2024-12-08 12:10 | disposition home or self-care (01) ==
LOC: SDC 05:50 → AC 05:50
PROVIDERS: PCP Nurse Practitioner Family; Referring Provider Urology; Visit Provider Urology
PROC: (CPT 52332; principal; 2024-12-08 07:20)
DX: O23.03 Infections of kidney in pregnancy, third trimester (principal); N13.6 Pyonephrosis; Z79.82 Long term (current) use of aspirin; Z3A.34 34 weeks gestation of pregnancy; Z87.891 Personal history of nicotine dependence; Q62.11 Congenital occlusion of ureteropelvic junction; O99.891 Other specified diseases and conditions complicating pregnancy
CPT/HCPCS: 52332; 00910; 59025; 59050; 76000; 99221; C1769; C2617; G0378

== ENCOUNTER 2024-12-24 07:20 | Inpatient (IN) | payer BC, SELFPAY ==
[2024-12-24] VITALS (41 sets, daily range): BP systolic 112–150; BP diastolic 55–82; PULSE 75–112; RESP 15–18; TEMP 36.3–36.9; O2SAT 97–100; BMI 36.8
--- OUTSIDE RECORDS SUMMARY | 2024-12-24 07:22 | XMS RPT_ITS | CCD ---
Author Organization [facility] Care Team Providers Care Tube Coverer Name Role Phone Chiki Gonzales Primary Care Provider Janet STAUFFER, Dr. Monet Primary Care Provider [phone] Moreno CNM, Sheyla Admit Provider Moreno CNM Sheyla Attending Provider Josh CNM, Sheyla Referring Provider [phone] Kassy STAUFFER, Dr. Charlton Other Provider Josh SINGHM, Sheyla Other Provider Kassy STAUFFER, Dr. Charlton Attending Provider Alfonso STAUFFER, Dr. Matias Attending Provider Dr. Polly Hamilton MD Referring Provider Dr. Latesha Elena MD Referring Provider Luke CORPORATE TRAFFIC MANAGER-C, [place] Primary Care Provider Chiki Gonzales MD [facility] Unavailable Latesha Elena Consulting Unavailable Latesha Elena Referring Unavailable Latesha Elena Attending [facility] Unavailable Darwin, Adina Referring Unavailable Adina Krueger Attending Unavailable Darwin Adina Admitting Unavailable Moreno, Sheyla Admitting Unavailable Josh, Sheyla Referring Unavailable Latesha Elena Consulting Unavailable Latesha Elena Attending Unavailable Chiki Gonzales Primary Care Unavailable Moreno, Sheyla Consulting Unavailable Luke, Madison Primary Care Unavailable Latesha Elena Referring Unavailable Latesha Elena Attending Unavailable Polly Hamilton Referring Unavailable Polly Hamilton Attending Unavailable Gonzales, Chiki Primary Care Unavailable Josh, Sheyla Referring Unavailable Moreno, Sheyla Attending Unavailable Josh, Sheyla Admitting Unavailable Latesha Elena Consulting Unavailable Gonzales, Chiki Primary Care Unavailable ADINA KRUEGER Attending Unavailable NEYANGELIT LUKAS, ELLI Referring Unavail able GONZALES, CHIKI R Primary Care Unavailable NEYHART GAYTAN, ELLI Referring Unavail able GONZALES, CHIKI R Primary Care Unavailable GONZALES, CHIKI R Primary Care Unavailable KENIA, LEANNE Referring Unavailable GONZALES, CHIKI R Primary Care Unavailable KENIA, LEANNE Referring Unavailable GONZALES, CHIKI R Primary Care Unavailable KENIA, LEANNE Attending Unavailable GONZALES, CHIKI R Primary Care Unavailable KELLY BALTAZAR Attending Unavailable GONZALES, CHIKI R Primary Care Unavailable GONZALES, CHIKI R Primary Care Unavailable ADINA KRUEGER Referring Unavailable KELLY BALTAZAR Attending Unavailable GONZALES, CHIKI R Primary Care Unavailable NEYANGELIT GAYTAN, ELLI Referring Unavail able GONZALES, CHIKI R Primary Care Unavailable GONZALES, CHIKI R Primary Care Unavailable ADINA KRUEGER Attending Unavailable GONZALES, CHIKI R Primary Care Unavailable JOSH, SHEYLA Referring Unavailable GONZALES, CHIKI R Primary Care Unavailable JOSH, SHEYLA Attending Unavailable NEEUNICET LUKAS, ELLI Referring Unavail able GONZALES, CHIKI R Primary Care Unavailable NEYHART GAYTAN, ELLI Referring Unavail able KENIA, LEANNE Referring Unavailable GONZALES, CHIKI R Primary Care Unavailable JESENIA, KELLY Attending Unavailable KENIA, LEANNE Referring Unavailable GONZALES, CHIKI R Primary Care Unavailable NEYHART GAYTAN, ELLI Referring Unavail able GONZALES, CHIKI R Primary Care Unavailable NEYHART GAYTAN, ELLI Referring Unavail able GONZALES, CHIKI R Primary Care Unavailable GONZALES, CHIKI R Primary Care Unavailable POLLY HAMILTON Attending Unavailable CELIOT LUKAS, ELLI Attending Unavail able GONZALES, CHIKI R Primary Care Unavailable KENIA, LEANNE Referring Unavailable GONZALES, CHIKI R Primary Care Unavailable JESENIA, KELLY Attending Unavailable GONZALES, CHIKI R Primary Care Unavailable GONZALES, CHIKI R Primary Care Unavailable NEYANGELIT GAYTAN, ELLI Referring Unavail able CRISSY TOM Attending Unavailable GONZALES, CHIKI R Primary Care Unavailable WISWELL, KELLY Referring Unavailable CHIKI GONZALES Primary Care Unavailable CRISSY TOM Attending Unavailable CHIKI GONZALES Primary Care Unavailable Medications Current Medications Medication Drug Class(es) Dates Sig (Normalized) Sig (Original) acetaminophen 500 mg oral tablet (4 sources) Start: 01-13-2021 acetaminophen (TYLENOL) 500 mg tablet 1,000 mg. 01/13/2021 Active Start: 01-13-2021 take 1-10 tablets by mouth [...] primary doctor cephalexin 500 mg oral capsule (6 sources) Cephalosporin Antibacterial Start: 12-06-2024 take 1 capsule by mouth three times daily cephALEXin (KEFLEX) 500 mg capsule Take 500 mg by mouth three times a day. 12/06/2024 Active Start: 07-08-2024 End: 07-13-2024 take 1 capsule by mouth four times daily cephALEXin (KEFLEX) 500 mg capsule Indications: Bacteria in urine Take 1 capsule by mouth four times daily for 5 days. 20 capsule 07/08/2024 07/13/2024 Active famotidine 20 mg oral tablet (10 sources) Histamine-2 Receptor Antagonist Start: 11-08-2024 take 1 tablet by mouth twice daily famotidine (PEPCID) 20 mg tablet Indications: 30 weeks gestation of (HCC) , Gastroesophageal reflux disease, unspecified whether esophagitis present Take 1 tablet by mouth two times a day. 60 tablet 11/08/2024 Active ferrous sulfate 325 mg oral tablet (11 sources) Start: 12-07-2024 take 1 tablet by mouth every other day Ferrous Sulfate (Evelyn-Time) 325 mg (65 mg iron) tablet Active 325 mg PO EVERY OTHER DAY December 07, 2024 12:00am Start: 01-13-2021 End: 12-04-2024 take 1 tablet [...] breakfast. labetalol hydrochloride 300 mg oral tablet (6 sources) beta-Adrenergic Collette Start: End: 2 take 1 tablet by mouth three times [...] mg oral tablet (13 sources) Start: End: 4 take 1 tablet by mouth once daily [...] once daily. oxyCODONE hydrochloride 5 mg oral tablet (4 sources) Opioid Agonist Start: take 1 tablet by mouth every eight hours as needed for pain oxyCODONE IR (ROXICODONE) 5 mg immediate release tablet TAKE 1 TABLET BY MOUTH EVERY 8 HOURS NEEDED FOR PAIN FOR 5 DAYS 12/06/2024 Active Start: 12-06-2024 take 1 capsule by mo uth every eight hours as needed for pain Oxycodone 5 mg capsule Active 5 mg PO Q8H as needed for pain 15 5 0 December 06, 2024 Calculus in pelviureteric junction Calculus of ureter Wsogixca-Xuq-Eh-Fa 1 mg Tablet (3 sources) Start: 01-08-2021 take 1 tablet by mouth once daily Ihrelwtw-Bmq-Fv-Fa 1 mg Tablet Active 1 {tbl} PO [...] mg/ml / menthol 5 mg/ml topical spray (3 sources) Standardized Chemical Allergen Start: 01-13-2021 End: [...] 06/07/2024 Discontinued ibuprofen 600 mg oral tablet (3 sources) Nonsteroidal Anti-inflammatory Drug Start: 01-13-2021 End: 12-04-2024 take 1 tablet by mouth every six hours as needed for pain Ibuprofen 600 mg Tablet Discontinued 600 mg PO EVERY 6 HOURS NEEDED as needed for Pain Score 1-3 30 0 January 13, 2021 12:00am December 04, 2024 11:02am nitrofurantoin, macrocrystals 25 mg / nitrofurantoin, monohydrate 75 mg oral capsule (15 sources) Nitrofuran Antibacterial Start: 10-27-2024 End: 11-03-2024 [...] 7 days. 14 capsule 06/09/2024 06/16/2024 Active Vwzvbizw-Vs-Cbj-Fe-FA ( VITAMIN) tab (9 sources) take 1 tablet by mouth once Atgxopom-Eo-Gxo-Fe-FA ( VITAMIN) tab Take 1 tablet by mouth. 0 Active Comment on above: Take 1 tablet by julisa th. Problems Active Problems Problem Classification Problem Date Documented Date Episodic/Chronic Abdominal pain (10 sources) Flank pain; Translations: [Unspecified abdominal pain] Onset: 12-14-2024 12-04-2024 Episodic Acute posthemorrhagic anemia (3 sources) Acute posthemorrhagic anemia; Translations: [Acute posthemorrhagic anemia] 01-13-2021 Episodic Anxiety disorders (20 sources) Generalized anxiety disorder; Translations: [Generalized anxiety disorder] Onset: 06-07-2024 06-07-2024 Chronic Calculus of urinary tract (12 sources) Calculus in pelviureteric junction ; Translations: [Calculus of ureter] Onset: 12-10-2024 12-05-2024 Episodic Comment on above: see urology [...] 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] Onset: 12-10-2024 Chronic Genitourinary symptoms and ill-defined conditions (1 source) Bacteriuria; Translations: [Bacteriuria] 07-08-2024 Episodic Hemorrhage during ; abruptio placenta; placenta previa (1 source) Threatened miscarriage; Translations: [Threatened miscarriage] Episodic Hypertension complicating ; childbirth and the puerperium (20 sources) Pre-existing hypertension in obstetric context; Translations: [Unspecified pre-existing hypertension complicating , unspecified trimester] Onset: 09-03-2024 09-03-2024 Chronic Comment on above: CHTN, no medications Hypertension complicating ; childbirth and the puerperium (2 sources) Hypertension AND/OR vomiting complicating childbirth AND/OR puerperium; Translations: [Gestational [-induced] hypertension without significant proteinuria, third trimester] Onset: 12-21-2024 12-21-2024 Episodic Malaise and fatigue (1 source) Malaise and fatigue; Translations: [Other malaise] Episodic Menstrual disorders (1 source) Missed period; Translations: [Irregular menstruation, unspecified] 05-24-2024 Chronic OB-related trauma to perineum and vulva (3 sources) First degree perineal laceration; Translations: [First degree perineal laceration during delivery] 01-11-2021 Episodic Open wounds of extremities (3 sources) Laceration of right thumb; Translations: [Laceration without foreign body of right thumb without damage to nail, initial encounter] 04-06-2019 Episodic Other complications of ; puerperium affecting management of mother (3 sources) Meconium in amniotic fluid affecting management of mother ; Translations: [Labor and delivery complicated by meconium in amniotic fluid] 01-21-2021 Episodic Other complications of (20 sources) Maternal obesity complicating , childbirth and the puerperium, antepartum; Translations: [Obesity complicating , second trimester] Onset: 09-13-2020 Resolved: 02-20-2021 02-20-2021 Chronic Other complications of (18 sources) Anemia in mother complicating , childbirth AND/OR puerperium; Translations: [Anemia complicating , third trimester] Onset: 11-15-2020 10-27-2024 Chronic Other complications of (3 sources) Obesity complicating , unspecified trimester; Translations: [Obesity complicating , childbirth, or the puerperium, antepartum condition or complication] Onset: 09-03-2024 12-21-2024 Chronic Other complications of (1 source) Obesity complicating , third trimester; Translations: [Obesity affecting in third trimester, unspecified obesity type (HCC)] Onset: 11-29-2024 Chronic Other complications of (1 source) Anemia complicating , third trimester; Translations: [Antepartum anemia complicating in third trimester (HCC)] Onset: 10-27-2024 Chronic Other complications of (1 source) Obesity complicating , second trimester; Translations: [Obesity affecting in second trimester, unspecified obesity type (HCC)] Onset: 09-03-2024 Chronic Other complications of (8 sources) Pyelonephritis in ; Translations: [Infections of kidney in , unspecified trimester] 12-05-2024 Episodic Comment on above: Cefepime 1gr IVPB. W ill transition to oral Bactrim. CT showed stone and hydronephrosis. Consult w/ Dr. Elena-plan for surgery todayWith stone and plan for surgery and suspected pylo- culture pending will change status to full admission. Other complications of (10 sources) Kidney stone; Translations: [Calculus of kidney affecting in third trimester (HCC)] Onset: 12-13-2024 12-13-2024 Episodic Other complications of (2 sources) Unspecified infection of urinary tract in , third trimester; Translations: [Unspecified infection of urinary tract in , third trimester] Onset: 12-10-2024 Episodic Other complications of (1 source) Infections of kidney in , third trimester; Translations: [Infections of kidney in , third trimester] Onset: 12-14-2024 Episodic Other complications of (2 sources) Supervision of with grand multiparity, third trimester; Translations: [Supervision of with grand multiparity, third trimester] Onset: 12-07-2024 Episodic Other complications of (1 source) Infections of kidney in , unspecified trimester; Translations: [Infections of kidney in , unspecified trimester] Onset: 12-14-2024 Episodic Other complications of (2 sources) Unspecified infection of urinary tract in , unspecified trimester; Translations: [Unspecified infection of urinary tract in , unspecified trimester] Onset: 10-27-2024 Episodic Other complications of (1 source) Supervision of high risk , unspecified, unspecified trimester; Translations: [, supervision, high-risk, unspecified trimester (HCC)] Onset: 10-27-2024 Episodic Other complications of (1 source) Supervision of high risk , unspecified, second trimester; Translations: [Supervision of high risk in second trimester (HCC)] Onset: 11-08-2024 Episodic Other diseases of kidney and ureters (9 sources) Hydronephrosis; Translations: [Unspecified hydronephrosis] 12-05-2024 Episodic Comment on above: plan stent tomorrow w/ urology then d/c home Other diseases of kidney and ureters (2 sources) Unspecified hydronephrosis; Translations: [Unspecified hydronephrosis] Onset: 12-10-2024 Episodic Other nutritional; endocrine; and metabolic disorders [...] Polyhydramnios and other problems of amniotic cavity (3 sources) Spontaneous rupture of membranes 01-21-2021 Episodic [...] of ] 11-29-2024 Episodic Residual codes; unclassified (8 sources) Gestation period, 34 weeks; Translations: [34 weeks gestation of ] 12-04-2024 Episodic Residual codes; unclassified (3 sources) Gestation period, 35 weeks; Translations: [35 weeks gestation of ] 12-13-2024 Episodic Residual codes; unclassified (3 sources) Gestation period, 36 weeks; Translations: [36 weeks gestation of ] 12-17-2024 Episodic Residual codes; unclassified (2 sources) 34 weeks gestation of ; Translations: [34 weeks gestation of ] Onset: 12-10-2024 Episodic Residual codes; unclassified (1 source) 36 weeks gestation of ; Translations: [36 weeks gestation of (HCC)] Onset: 12-21-2024 Episodic Residual codes; unclassified (1 source) 35 weeks gestation of ; Translations: [35 weeks gestation of (HCC)] Onset: 12-13-2024 Episodic Residual codes; unclassified (1 source) 30 weeks gestation of ; Translations: [30 weeks gestation of (HCC)] Onset: 11-08-2024 Episodic Residual codes; unclassified (1 source) 28 weeks gestation of ; Translations: [28 weeks gestation of (HCC)] Onset: 10-25-2024 Episodic Residual codes; unclassified (1 source) 24 weeks gestation of ; Translations: [24 weeks gestation of (HCC)] Onset: 09-27-2024 Episodic Unclassified (20 sources) [facility] Education - COMMON Onset: 06-07-2024 06-07-2024 Unclassified (20 sources) Education - [place] Onset: 06-07-2024 06-07-2024 Unclassified (1 source) Calculus of kidney affecting in third trimester (HCC); Translations: [Calculus of kidney affecting in third trimester (HCC)] Onset: 12-13-2024 Past or Other Problems Problem Classification Problem [...] 09-13-2020 Episodic Other complications of (20 sources) High risk ; Translations: [Supervision of high risk , unspecified, third trimester] Onset: 09-13-2020 Resolved: 02-20-2021 02-20-2021 Episodic Comment on above: NSt daily, monitor f or signs/symptoms of labor. Encouraged to push fluids, ambulate frequently. SCDs for VTE prophylaxis Other complications of (20 sources) Abnormal placenta [...] home Ecoli UTI in pregnan cy. Other hematologic conditions (20 sources) History of anemia; Translations: [Personal history of diseases of the blood and blood-forming organs and certain disorders involving the immune mechanism] Onset: 06-07-2024 06-07-2024 Episodic Other and delivery including normal (5 sources) with uncertain dates; Translations: [Encounter for supervision of normal , unspecified, unspecified trimester] Onset: 06-07-2024 06-07-2024 Episodic Comment on above: PPD #3 Residual codes; unclassified (1 source) Personal history [...] of ; Translations: [8 weeks gestation of ([facility])] Onset: 06-07-2024 Episodic Screening and history of mental health and substance abuse codes (20 sources) H/O: anxiety state; Translations: [Personal history of other mental and behavioral disorders] Onset: 06-08-2020 Resolved: 10-27-2024 06-08-2020 Episodic Results Test Name Value Interpretation Reference Range Facility ROUTINE, GROUP B ST REPTOCOCCUS BY PCRon 12-22-2024 Interpretation and review of laboratory results Normal [facility] S. agalactiae DNA KEVIN+probe Ql (Unsp spec) Not detected Not detected [facility] This PCR is performed on a vaginal-rectal swab after culture enrichment. It is the most sensitive method for Group B Streptococcus screening. (Obstet Gynecol. 2020 PMID [id number]) [facility] CBC panel Auto (Bld)on 12-21 Erythrocyte distribution width (RBC) [Ratio] 13.1 % Normal 11.5-15.0 [facility] Comment on above: Order Comment: Speci men Type: BLOOD SPECIMEN Ordering Facility: [facility] Address: [address] [place] [address] Performed By: #### 2 4323-8, 3084-1 #### [facility] CLIA [id number] [address] [place] [address] [place] Hematocrit (Bld) [Volume fraction] 31.1 % Low 36.0-46.0 [facility] Comment on above: Order Comment: Speci men Type: BLOOD SPECIMEN Ordering Facility: [facility] Address: [address] [place] [address] Performed By: #### 2 4323-8, 308-1 #### [facility] CLIA [id number] [address] [place] [address] [place] Hemoglobin (Bld) [Mass/Vol] 10.6 g/dL Low 11.5-15.5 [facility] Comment on above: Order Comment: Speci men Type: BLOOD SPECIMEN Ordering Facility: [facility] Address: [address] [place] [address] Performed By: #### 2 4323-8, 3083-1 #### [facility] CLIA [id number] [address] [place] [address] [place] OF [facility] MCH (RBC) [Entitic mass] 30.4 pg Normal 26.0-34.0 [facility] Comment on above: Order Comment: Speci men Type: BLOOD SPECIMEN Ordering Facility: [facility] Address: [address] [place] [address] Performed By: #### 2 4323-8, 3083-1 #### [facility] CLIA [id number] [address] [place] [address] [place] MCHC (RBC) [Mass/Vol] 34.1 g/dL Normal 30.5-36.0 [facility] Comment on above: Order Comment: Speci men Type: BLOOD SPECIMEN Ordering Facility: [facility] Address: [address] [place] [address] Performed By: #### 2 4323-8, 3084-1 #### [facility] CLIA [id number] [address] [place] [address] OF [facility] MCV (RBC) [Entitic vol] 89.1 fL Normal 80.0-100.0 [facility] Comment on above: Order Comment: Speci men Type: BLOOD SPECIMEN Ordering Facility: [facility] Address: [address] [place] [address] Performed By: #### 2 4323-8, 3083- #### [facility] CLIA [id number] [address] [place] [address] [place] Nucleated RBC (Bld) [#/Vol] 10*3/uL Normal <0.01 [facility] Comment on above: Order Comment: Speci men Type: BLOOD SPECIMEN Ordering Facility: [facility] Address: [address] [place] [address] Performed By: #### 2 4323-8, 3083-04 #### [facility] CLIA [id number] [address] [place] [address] [place] Platelet mean volume (Bld) [Entitic vol] 10.9 fL Normal 9.0-12.7 [facility] Comment on above: Order Comment: Speci men Type: BLOOD SPECIMEN Ordering Facility: [facility] Address: [address] [place] [address] Performed By: #### 2 4323-8, 3083-04 #### [facility] CLIA [id number] [address] [place] [address] [place] Platelets (Bld) [#/Vol] 246 10*3/uL Normal 150-400 [facility] Comment on above: Order Comment: Speci men Type: BLOOD SPECIMEN Ordering Facility: [facility] Address: [address] [place] [address] Performed By: #### 2 4323-8, 3083- #### [facility] CLIA [id number] [address] [place] [address] [place] RBC (Bld) [#/Vol] 3.49 10*6/uL Low 3.90-5.20 [facility] Comment on above: Order Comment: Speci men Type: BLOOD SPECIMEN Ordering Facility: [facility] Address: [address] [place] [address] Performed By: #### 2 4323-8, 308-1 #### [facility] CLIA [id number] [address] [place] [address] [place] WBC (Bld) [#/Vol] 11.49 10*3/uL High 3.70-11.00 [facility] Comment on above: Order Comment: Speci men Type: BLOOD SPECIMEN Ordering Facility: [facility] Address: [address] [place] [address] Performed By: #### 2 4323-8, 3083-1 #### [facility] CLIA [id number] [address] [place] [address] [place] Comprehensive metabolic 2000 panelon 12-21-2024 Albumin [Mass/Vol] 3.4 g/dL Low 3.9-4.9 [facility] Comment on above: Order Comment: Speci men Type: BLOOD SPECIMEN Ordering Facility: [facility] Address: [address] [place] [address] Performed By: #### 2 4323-8, 3083-04 #### [facility] CLIA [id number] [address] [place] [address] [place] ALP [Catalytic activity/Vol] 102 U/L Normal 34-123 [facility] Comment on above: Order Comment: Speci men Type: BLOOD SPECIMEN Ordering Facility: [facility] Address: [address] [place] [address] Performed By: #### 2 4323-8, 3083-1 #### [facility] CLIA [id number] [address] [place] [address] [place] ALT [Catalytic activity/Vol] 22 U/L Normal 7-38 [facility] Comment on above: Order Comment: Speci men Type: BLOOD SPECIMEN Ordering Facility: [facility] Address: [address] [place] [address] Performed By: #### 2 4323-8, 3083-04 #### [facility] CLIA [id number] [address] [place] [address] [place] Anion gap [Moles/Vol] 10 mmol/L Normal 8-15 [facility] Comment on above: Order Comment: Speci men Type: BLOOD SPECIMEN Ordering Facility: [facility] Address: [address] [place], [place] [id number] Performed By: #### 2 4323-8, 3083-04 #### [facility] CLIA [id number] [address] [place] [address] [place] AST [Catalytic activity/Vol] 20 U/L Normal 13-35 [facility] Comment on above: Order Comment: Speci men Type: BLOOD SPECIMEN Ordering Facility: [facility] Address: [address] [place], [place] [id number] Performed By: #### 2 4323-8, 3083-04 #### [facility] CLIA [id number] [address] [place] [address] [place] Bilirubin [Mass/Vol] 1.4 mg/dL High 0.2-1.3 [facility] Comment on above: Order Comment: Speci men Type: BLOOD SPECIMEN Ordering Facility: [facility] Address: [address] [place] [address] Performed By: #### 2 4323-8, 3083-04 #### [facility] CLIA [id number] [address] [place] [address] [place] Calcium [Mass/Vol] 9.3 mg/dL Normal 8.5-10.2 [facility] Comment on above: Order Comment: Speci men Type: BLOOD SPECIMEN Ordering Facility: [facility] Address: [address] [place] [address] Performed By: #### 2 4323-8, 3083-04 #### [facility] CLIA [id number] [address] [place] [address] [place] Chloride [Moles/Vol] 101 mmol/L Normal 98-107 [facility] Comment on above: Order Comment: Speci men Type: BLOOD SPECIMEN Ordering Facility: [facility] Address: [address] [place] [address] Performed By: #### 2 4323-8, 3083-04 #### [facility] CLIA [id number] [address] [place] [address] [place] CO2 [Moles/Vol] 23 mmol/L Normal 22-30 [facility] Comment on above: Order Comment: Speci men Type: BLOOD SPECIMEN Ordering Facility: [facility] Address: [address] [place] [address] Performed By: #### 2 4323-8, 3083-04 #### [facility] CLIA [id number] [address] [place] [address] [place] Creatinine [Mass/Vol] 0.84 mg/dL Normal 0.58-0.96 [facility] Comment on above: Order Comment: Speci men Type: BLOOD SPECIMEN Ordering Facility: [facility] Address: [address] [place] [address] Performed By: #### 2 4323-8, 3083-04 #### [facility] CLIA [id number] [address] [place] [address] [place] eGFRcr SerPlBld CKD-EPI 2020 94 mL/min/1.73m??? Normal >=60 [facility] Comment on above: Order Comment: Speci men Type: BLOOD SPECIMEN Ordering Facility: [facility] Address: [address] [place] [address] Result Comment: Jelly mated Glomerular Filtration Rate [...] reflect actual GFR. Performed By: #### 2 4323-8, 3083-04 #### [facility] CLIA [id number] [address] [place] [place] [id number] [place] Glucose [Mass/Vol] 120 mg/dL High 74-99 [facility] Comment on above: Order Comment: Anat ahmadi Type: BLOOD SPECIMEN Ordering Facility: [facility] Address: [address] [place] [address] Result Comment: The [place] [employer] (ADA) provides guidance for cutoff [...] Standards of Medical Care in Diabetes 2016, [place] [employer]. Diabetes Care. 2016.39(Suppl 1). Performed By: #### 2 43238, 3083-04 #### [facility] CLIA [id number] [address] [place] [address] [place] Potassium [Moles/Vol] 3.8 mmol/L Normal 3.7-5.1 [facility] Comment on above: Order Comment: Anat ahmadi Type: BLOOD SPECIMEN Ordering Facility: [facility] Address: [address] [place] [address] Performed By: #### 2 43238, 3083-04 #### [facility] CLIA [id number] [address] [place] [address] [place] Protein [Mass/Vol] 6.4 g/dL Normal 6.3-8.0 [facility] Comment on above: Order Comment: Speci men Type: BLOOD SPECIMEN Ordering Facility: [facility] Address: [address] [place], [place] [address] Performed By: #### 2 4323-8, 3083- #### [id number] [address] [place] [address] [place] Sodium [Moles/Vol] 134 mmol/L Low 136-144 [facility] Comment on above: Order Comment: Speci men Type: BLOOD SPECIMEN Ordering Facility: [facility] Address: [address] [place] [address] Performed By: #### 2 4323-8, 3083-04 #### [facility] [id number] [address] [place] [address] [place] Urea nitrogen [Mass/Vol] 9 mg/dL Normal 7-21 [facility] Comment on above: Order Comment: Speci men Type: BLOOD SPECIMEN Ordering Facility: [facility] Address: [address] [place] [address] Performed By: #### 2 4323-8, 3083-04 #### [facility] [id number] [address] [place] [address] [place] Examination level ultrasound on 12-21-[address] [facility] Radiology Study observation (narrative) [facility] ROUTINE, GROUP B ST REPTOCOCCUS BY PCRon 12-21-2024 ROUTINE, GROUP B STREPTOCOCCUS BY PCR Not detected Normal [facility] Comment on above: Performed By: #### G BPCR ####[facility] [id number] [place] [address] [place] URINE OB DIP B/Oon 5 Glucose Ql (U) Negative Neg mg/dL [facility] Protein.monoclonal (U) [Mass/Vol] 30 mg/dL Neg [facility] Urate SerPl-mCncon Urate [Mass/Vol] 5.6 mg/dL Normal 2.5-6.6 [facility] Comment on above: Order Comment: Speci men Type: BLOOD SPECIMEN Ordering Facility: [facility] Address: [address] [place] [address] Performed By: #### 2 4323-8, 308-1 #### [facility] CLIA [id number] [address] [place] [address] [place] Biophysical profile.eladio dy movement USon 12-17-[address] [facility] Radiology Study observation (narrative) [facility] CBC panel Auto (Bld)on 12-15 Erythrocyte distribution width (RBC) [Ratio] 12.8 % Normal 11.5-15.0 [facility] Comment on above: Order Comment: Speci men Type: BLOOD SPECIMEN Ordering Facility: [facility] Address: [address] [place] [address] Performed By: #### 2 4323-8, 3083-04 #### [facility] [id number] [address] [place] [address] [place] Hematocrit (Bld) [Volume fraction] 33.3 % Low 36.0-46.0 [facility] Comment on above: Order Comment: Speci men Type: BLOOD SPECIMEN Ordering Facility: [facility] Address: [address] [place] [address] Performed By: #### 2 4323-8, 3083- #### [facility] CLIA [id number] [address] [place] [address] [place] Hemoglobin (Bld) [Mass/Vol] 11.3 g/dL Low 11.5-15.5 [facility] Comment on above: Order Comment: Speci men Type: BLOOD SPECIMEN Ordering Facility: [facility] Address: [address] [place] [address] Performed By: #### 2 4323-8, 3083-1 #### [facility] CLIA [id number] [address] [place] [address] [place] MCH (RBC) [Entitic mass] 30.7 pg Normal 26.0-34.0 [facility] Comment on above: Order Comment: Speci men Type: BLOOD SPECIMEN Ordering Facility: [facility] Address: [address] [place] [address] Performed By: #### 2 4323-8, 3083- #### [facility] CLIA [id number] [address] [place] [address] [place] MCHC (RBC) [Mass/Vol] 33.9 g/dL Normal 30.5-36.0 [facility] Comment on above: Order Comment: Speci men Type: BLOOD SPECIMEN Ordering Facility: [facility] Address: [address] [place] [address] Performed By: #### 2 4323-8, 3083-04 #### [facility] CLIA [id number] [address] [place] [address] [place] MCV (RBC) [Entitic vol] 90.5 fL Normal 80.0-100.0 [facility] Comment on above: Order Comment: Speci men Type: BLOOD SPECIMEN Ordering Facility: [facility] Address: [address] [place] [address] Performed By: #### 2 4323-8, 3083-04 #### [facility] CLIA [id number] [address] [place] [address] [place] Nucleated RBC (Bld) [#/Vol] 10*3/uL Normal <0.01 [facility] Comment on above: Order Comment: Speci men Type: BLOOD SPECIMEN Ordering Facility: [facility] Address: [address] [place], [place] [address] Performed By: #### 2 4323-8, 3083- #### [facility] CLIA [id number] [address] [place] [address] [place] Platelet mean volume (Bld) [Entitic vol] 12.5 fL Normal 9.0-12.7 [facility] Comment on above: Order Comment: Speci men Type: BLOOD SPECIMEN Ordering Facility: [facility] Address: [address] [place] [address] Performed By: #### 2 4323-8, 3084-1 #### [facility] CLIA [id number] [address] [place] [address] [place] Platelets (Bld) [#/Vol] 350 10*3/uL Normal 150-400 [facility] Comment on above: Order Comment: Speci men Type: BLOOD SPECIMEN Ordering Facility: [facility] Address: [address] [place] [address] Performed By: #### 2 4323-8, 3084-1 #### [facility] CLIA [id number] [address] [place] [address] [place] RBC (Bld) [#/Vol] 3.68 10*6/uL Low 3.90-5.20 [facility] Comment on above: Order Comment: Speci men Type: BLOOD SPECIMEN Ordering Facility: [facility] Address: [address] [place] [address] Performed By: #### 2 4323-8, 3084-1 #### [facility] CLIA [id number] [address] [place] [address] [place] WBC (Bld) [#/Vol] 12.45 10*3/uL High 3.70-11.00 [facility] Comment on above: Order Comment: Speci men Type: BLOOD SPECIMEN Ordering Facility: [facility] Address: [address] [place] [address] Performed By: #### 2 4323-8, 3084-1 #### [facility] CLIA [id number] [address] [place] [address] [place] Comprehensive metabolic 2000 panelon 12-15-2024 Albumin [Mass/Vol] 3.7 g/dL Low 3.9-4.9 [facility] Comment on above: Order Comment: Speci men Type: BLOOD SPECIMEN Ordering Facility: [facility] Address: [address] [place] [address] Performed By: #### 2 4323-8, 3084-1 #### [facility] CLIA [id number] [address] [place] [address] [place] ALP [Catalytic activity/Vol] 101 U/L Normal 34-123 [facility] Comment on above: Order Comment: Speci men Type: BLOOD SPECIMEN Ordering Facility: [facility] Address: [address] [place] [address] Performed By: #### 2 4323-8, 3084-1 #### [facility] CLIA [id number] [address] [place] [address] [place] ALT [Catalytic activity/Vol] 57 U/L High 7-38 [facility] Comment on above: Order Comment: Speci men Type: BLOOD SPECIMEN Ordering Facility: [facility] Address: [address] [place] [address] Performed By: #### 2 4323-8, 3084-1 #### [facility] CLIA [id number] [address] [place] [address] [place] Anion gap [Moles/Vol] 14 mmol/L Normal 8-15 [facility] Comment on above: Order Comment: Speci men Type: BLOOD SPECIMEN Ordering Facility: [facility] Address: [address] [place] [address] Performed By: #### 2 4323-8, 3084-1 #### [facility] CLIA [id number] [address] [place] [address] [place] AST [Catalytic activity/Vol] 41 U/L High 13-35 [facility] Comment on above: Order Comment: Speci men Type: BLOOD SPECIMEN Ordering Facility: [facility] Address: [address] [place] [address] Performed By: #### 2 4323-8, 3083- #### [facility] CLIA [id number] [address] [place] [address] [place] Bilirubin [Mass/Vol] 0.7 mg/dL Normal 0.2-1.3 [facility] Comment on above: Order Comment: Speci men Type: BLOOD SPECIMEN Ordering Facility: [facility] Address: [address] [place] [address] Performed By: #### 2 4323-8, 3083-04 #### [facility] CLIA [id number] [address] [place] [address] [place] Calcium [Mass/Vol] 8.9 mg/dL Normal 8.5-10.2 [facility] Comment on above: Order Comment: Speci men Type: BLOOD SPECIMEN Ordering Facility: [facility] Address: [address] [place] [address] Performed By: #### 2 4323-8, 3083-04 #### [facility] CLIA [id number] [address] [place] [address] [place] Chloride [Moles/Vol] 101 mmol/L Normal 98-107 [facility] Comment on above: Order Comment: Speci men Type: BLOOD SPECIMEN Ordering Facility: [facility] Address: [address] [place] [address] Performed By: #### 2 4323-8, 3083-04 #### [facility] CLIA [id number] [address] [place] [address] [place] CO2 [Moles/Vol] 23 mmol/L Normal 22-30 [facility] Comment on above: Order Comment: Speci men Type: BLOOD SPECIMEN Ordering Facility: [facility] Address: [facility] [place] [address] Performed By: #### 2 4323-8, 3083-04 #### [facility] CLIA [id number] [address] [place] [address] [place] Creatinine [Mass/Vol] 0.73 mg/dL Normal 0.58-0.96 [facility] Comment on above: Order Comment: Anat ahmadi Type: BLOOD SPECIMEN Ordering Facility: [facility] Address: [address] [place] [address] Performed By: #### 2 4323-8, 3083-04 #### [facility] CLIA [id number] [address] [place] [address] [place] eGFRcr SerPlBld CKD-EPI 2020 111 mL/min/1.73m??? Normal >=60 [facility] Comment on above: Order Comment: Anat ahmadi Type: BLOOD SPECIMEN Ordering Facility: [facility] Address: [address] [place] [address] Result Comment: Jelly mated Glomerular Filtration Rate [...] reflect actual GFR. Performed By: #### 2 4323-8, 3083-04 #### [facility] CLIA [id number] [address] [place] [address] [place] Glucose [Mass/Vol] 77 mg/dL Normal 74-99 [facility] Comment on above: Order Comment: Anat ahmadi Type: BLOOD SPECIMEN Ordering Facility: [facility] Address: [address] [place] [address] Result Comment: The [place] Diabetes [employer] (ADA) provides guidance for cutoff [...] Standards of Medical Care in Diabetes 2016, [place] [employer]. Diabetes Care. 2016.39(Suppl 1). Performed By: #### 2 4323-8, 3083-04 #### [facility] CLIA [id number] [address] [place] [address] [place] Potassium [Moles/Vol] 4.3 mmol/L Normal 3.7-5.1 [facility] Comment on above: Order Comment: Anat ahmadi Type: BLOOD SPECIMEN Ordering Facility: [facility] Address: [address] [place] [address] Performed By: #### 2 4328, 3083-04 #### [facility] CLIA [id number] [address] [place] [address] [place] Protein [Mass/Vol] 7.1 g/dL Normal 6.3-8.0 [facility] Comment on above: Order Comment: Anat ahmadi Type: BLOOD SPECIMEN Ordering Facility: [facility] Address: [address] [place] [address] Performed By: #### 2 43238, 3083-04 #### [facility] CLIA [id number] [address] [place] [address] [place] Sodium [Moles/Vol] 138 mmol/L Normal 136-144 [facility] Comment on above: Order Comment: Katlini galdino Type: BLOOD SPECIMEN Ordering Facility: [facility] Address: [address] [place] [address] Performed By: #### 2 4323-8, 3083-04 #### [facility] CLIA [id number] [address] [place] [address] [place] Urea nitrogen [Mass/Vol] 9 mg/dL Normal 7-21 [facility] Comment on above: Order Comment: Anat ahmadi Type: BLOOD SPECIMEN Ordering Facility: [facility] Address: [address] [place] [address] Performed By: #### 2 4323-8, 3084-1 #### [facility] CLIA [id number] [address] [place] [address] Urate SerPl-mCncon 5 Urate [Mass/Vol] 4.2 mg/dL Normal 2.5-6.6 [facility] Comment on above: Order Comment: Anat ahmadi Type: BLOOD SPECIMEN Ordering Facility: [facility] Address: [address] [place], [place] [address] Performed By: #### 2 4323-8, 3084-1 #### [facility] CLIA [id number] [address] [place] [address] CNPNon 12-14-2024 CNPN Telephone (OBGYWM) HILLARY FRAIRE ([id number]) 1990 F Date Time Provider Department 12/14/24 ADINA KRUEGER OBGIFTY During your visit today, we recorded the following information about you: Eden Lovett RN 12/14/2024 11:08 AM Signed Needs twice weekly testing. One BPP and one NST. F/u in office twice weekly, call or return for signs/symptoms of severe preeclampsia. Repeat labs Fri or . Likely Ind. 37 weeks. MD Rachell Zambrano Lindsey, RN 12/14/2024 2:14 PM Addendum Patient notified of below and appointments scheduled. Need orders for BPP's and repeat blood work. Does patient need NST this week also, or OK for just BPP on Friday this week? HAL Bui Deidre, MD 12/14/2024 2:24 PM Signed Labs ordered and BPP order placed. Have her get NST today or tomorrow. Eden Lovett RN 12/14/2024 2:30 PM Signed Left message to call office. Please notify patient she need to get lab work repeated tomorrow and also needs to be scheduled for NST tomorrow. HAL Bui Jennifer, RN 12/14/2024 2:53 PM Signed Patient called back. She will have NST and labs drawn tomorrow. Needs end of day. Scheduled for 3:30 PM. Polly Peace RN Allergies As of Date: 12/14/2024 (No Known Allergies) Date Reviewed: 12/13/2024 Reviewed by: Maurilio Penn LPN - Fully Assessed Reason for Visit: Results [95] Follow Up [171] Primary Visit Diagnosis:Chronic hypertension in (HCC) [O10.919] Other Visit Diagnoses:Obesity affecting in third trimester, unspecified obesity type (HCC) [O99.213] Antepartum anemia complicating in third trimester (HCC) [O99.013] Chronic hypertension with superimposed pre-eclampsia (HCC) [O11.9] Order(s):BIOPHYSICAL PROFILE [facility] [[id number]] Order #: [id number]: 3 FUTURE COMPREHENSIVE METABOLIC PANEL [SQCMP] Order #: [id number] FUTURE URIC ACID [SQURIC] Order #: [id number] FUTURE COMPLETE BLOOD COUNT [SQCBC] Order #: [id number] FUTURE Prescriptions as of 12/14/2024 - famotidine (PEPCID) 20 mg tablet Take 1 tablet by mouth two times a day. - aspirin, enteric coated (ECOTRIN LOW STRENGTH) 81 mg EC tablet Take 1 tablet by mouth once daily. - vit/iron fum/folic ac ( 1 + 1 ORAL) Take by mouth once daily. Problem List As Of Date 12/14/2024 Noted Resolved Spotting in early (HCC) [O26.859] [...] , ant*06/09/2024 Chronic hypertension in (HCC) [O10.91*09/03/2024 Calculus of kidney affecting in third*12/13/2024 Encounter Status:Closed by POLLY PEACE on 12/14/24 Normal [facility] CBC panel Auto (Bld)on 12-13 Erythrocyte distribution width (RBC) [Ratio] 12.8 % 11.5 - 15.0 % [facility] Hematocrit (Bld) [Volume fraction] 31.4 % Low 36.0 - 46.0 % [facility] Hemoglobin (Bld) [Mass/Vol] 10.8 g/dL Low 11.5 - 15.5 g/dL [facility] Interpretation and review of laboratory results Abnormal [facility] MCH (RBC) [Entitic mass] 30.9 pg 26.0 - 34.[address] [facility] MCHC (RBC) [Mass/Vol] 34.4 g/dL 30.5 - 36.0 g/dL [facility] MCV (RBC) [Entitic vol] 89.7 fL 80.0 - 100.[address] [facility] Nucleated RBC (Bld) [#/Vol] NINF [facility] Platelet mean volume (Bld) [Entitic vol] 11.4 fL 9.0 - 12.[address] [facility] Platelets (Bld) [#/Vol] 309 10*3/uL [facility] RBC (Bld) [#/Vol] 3.50 10*6/uL Low 3.90 - 5.2 0 m/uL [facility] WBC (Bld) [#/Vol] 10.91 10*3/uL [facility] Erythrocyte distribution width (RBC) [Ratio] 12.8 % Normal 11.5-15.0 [facility] Comment on above: Order Comment: Speci men Type: BLOOD SPECIMEN Ordering Facility: [facility] Address: [address] [place] [address] Performed By: #### 2 4323-8, 3083-04 #### [facility] CLIA [id number] [address] [place] [address] [place] Hematocrit (Bld) [Volume fraction] 31.4 % Low 36.0-46.0 [facility] Comment on above: Order Comment: Speci men Type: BLOOD SPECIMEN Ordering Facility: [facility] Address: [address] [place] [address] Performed By: #### 2 4323-8, 3083-04 #### [facility] CLIA [id number] [address] [place] [address] [place] Hemoglobin (Bld) [Mass/Vol] 10.8 g/dL Low 11.5-15.5 [facility] Comment on above: Order Comment: Speci men Type: BLOOD SPECIMEN Ordering Facility: [facility] Address: [address] [place] [address] Performed By: #### 2 4323-8, 3083-04 #### [facility] CLIA [id number] [address] [place] [address] [place] MCH (RBC) [Entitic mass] 30.9 pg Normal 26.0-34.0 [facility] Comment on above: Order Comment: Speci men Type: BLOOD SPECIMEN Ordering Facility: [facility] Address: [address] [place] [address] Performed By: #### 2 4323-8, 3083-1 #### [facility] CLIA [id number] [address] [place] [address] [place] MCHC (RBC) [Mass/Vol] 34.4 g/dL Normal 30.5-36.0 [facility] Comment on above: Order Comment: Speci men Type: BLOOD SPECIMEN Ordering Facility: [facility] Address: [address] [place] [address] Performed By: #### 2 4323-8, 3083- #### [facility] CLIA [id number] [address] [place] [address] [place] MCV (RBC) [Entitic vol] 89.7 fL Normal 80.0-100.0 [facility] Comment on above: Order Comment: Speci men Type: BLOOD SPECIMEN Ordering Facility: [facility] Address: [address] [place] [address] Performed By: #### 2 4323-8, 3083- #### [facility] CLIA [id number] [address] [place] [address] [place] Nucleated RBC (Bld) [#/Vol] 10*3/uL Normal <0.01 [facility] Comment on above: Order Comment: Speci men Type: BLOOD SPECIMEN Ordering Facility: [facility] Address: [address] [place] [address] Performed By: #### 2 4323-8, 308-1 #### [facility] CLIA [id number] [address] [place] [address] [place] Platelet mean volume (Bld) [Entitic vol] 11.4 fL Normal 9.0-12.7 [facility] Comment on above: Order Comment: Speci men Type: BLOOD SPECIMEN Ordering Facility: [facility] Address: [address] [place] [address] Performed By: #### 2 4323-8, 3084-1 #### [facility] CLIA [id number] [address] [place] [address] [place] Platelets (Bld) [#/Vol] 309 10*3/uL Normal 150-400 [facility] Comment on above: Order Comment: Speci men Type: BLOOD SPECIMEN Ordering Facility: [facility] Address: [address] [place] [address] Performed By: #### 2 4323-8, 308-1 #### [facility] CLIA [id number] [address] [place] [address] [place] RBC (Bld) [#/Vol] 3.50 10*6/uL Low 3.90-5.20 [facility] Comment on above: Order Comment: Speci men Type: BLOOD SPECIMEN Ordering Facility: [facility] Address: [address] [place] [address] Performed By: #### 2 4323-8, 308-1 #### [facility] CLIA [id number] [address] [place] [address] [place] WBC (Bld) [#/Vol] 10.91 10*3/uL Normal 3.70-11.00 [facility] Comment on above: Order Comment: Speci men Type: BLOOD SPECIMEN Ordering Facility: [facility] Address: [address] [place] [address] Performed By: #### 2 4323-8, 3084-1 #### [facility] CLIA [id number] 1 [place] [address] [place] Creatinine and Glomerular fi ltration rate.predicted panel (S/P/Bld)on 12-13-2024 Creatinine [Mass/Vol] 0.81 mg/dL 0.58 - 0.96 mg/dL [facility] GFR/1.73 sq M.predicted among non-blacks MDRD (S/P/Bld) [Vol rate/Area] 98 mL/min/{1.73_m2} - PINF [facility] Comment on above: Estimated Glomerular Filtration Rate (eGFR) is calculated using the 2020 CKD-EPI creatinine equation. This equation utilizes serum creatinine, sex, and age as parameters. The creatinine assay has traceable calibration to isotope dilution-mass spectrometry. Refer to KDIGO guidelines for clinical interpretation. In patients with unstable renal function, e.g. those with acute kidney injury, the eGFR may not accurately reflect actual GFR. Creatinine [Mass/Vol] 0.81 mg/dL Normal 0.58-0.96 [facility] Comment on above: Order Comment: Speci galdino Type: BLOOD SPECIMENOrdering Facility: [facility] Address: [address] [place] [address] Performed By: #### 4 5066-8, 24954-1, 1 ####[facility] [id number] [place] [address] [place] eGFRcr SerPlBld CKD-EPI 2020 98 mL/min/1.73m??? Normal >=60 [facility] Comment on above: Order Comment: Anat ahmadi Type: BLOOD SPECIMENOrdering Facility: [facility] Address: [address] [place] [address] Result Comment: Jelly mated Glomerular Filtration Rate [...] accurately reflect actual GFR. Performed By: #### 4 5066-8, 25684-2, 308-1 ####[facility] [id number] [place] [address] [place] Hepatic function 2000 panelo n 12-13-2024 Albumin [Mass/Vol] 3.7 g/dL Low 3.9 - 4.9 g/dL [facility] ALP [Catalytic activity/Vol] 112 U/L 34 - 123 U/L [facility] ALT [Catalytic activity/Vol] 52 U/L High 7 - 38 U/L [facility] AST [Catalytic activity/Vol] 41 U/L High 13 - 35 U/L [facility] Bilirubin [Mass/Vol] 0.8 mg/dL 0.2 - 1 .3 mg/dL [facility] Bilirubin.conjugated [Mass/Vol] 0.4 mg/dL High NINF - 0.3 mg/dL [facility] Interpretation and review of laboratory results Abnormal [facility] Protein [Mass/Vol] 6.7 g/dL 6.3 - 8.0 g/dL [facility] Albumin [Mass/Vol] 3.7 g/dL Low 3.9-4.9 [facility] Comment on above: Order Comment: Speci men Type: BLOOD SPECIMENOrdering Facility: [facility] Address: [address] [place] [address] Performed By: #### 4 5066-8, 17038-0, 3084-1 ####[facility] [id number] [place] [address] [place] ALP [Catalytic activity/Vol] 112 U/L Normal 34-123 [facility] Comment on above: Order Comment: Speci men Type: BLOOD SPECIMENOrdering Facility: [facility] Address: [address] [place] [address] Performed By: #### 4 5066-8, 57201-2, 3084-1 ####[facility] [id number] [place] [address] [place] ALT [Catalytic activity/Vol] 52 U/L High 7-38 [facility] Comment on above: Order Comment: Speci men Type: BLOOD SPECIMENOrdering Facility: [facility] Address: [address] [place], [place] [address] Performed By: #### 4 5066-8, 88331-7, 308-1 ####[facility] ARTUROSAN ANTONIONCLIA [id number] [place] [address] [place] AST [Catalytic activity/Vol] 41 U/L High 13-35 [facility] Comment on above: Order Comment: Speci men Type: BLOOD SPECIMENOrdering Facility: [facility] Address: [address] [place], [place] [address] Performed By: #### 4 5066-8, 56869-6, 308-1 ####[facility] [id number] [place] [address] [place] Bilirubin [Mass/Vol] 0.8 mg/dL Normal 0.2-1.3 [facility] Comment on above: Order Comment: Speci men Type: BLOOD SPECIMENOrdering Facility: [facility] Address: [address] [place] [address] Performed By: #### 4 5066-8, 72635-9, 308-1 ####[facility] [id number] [place] [address] [place] Bilirubin.conjugated [Mass/Vol] 0.4 mg/dL High <0.3 [facility] Comment on above: Order Comment: Speci men Type: BLOOD SPECIMENOrdering Facility: [facility] Address: [address] [place], [place] [address] Performed By: #### 4 5066-8, 47178-4, 308-1 ####[facility] [id number] [place] [address] [place] Protein [Mass/Vol] 6.7 g/dL Normal 6.3-8.0 [facility] Comment on above: Order Comment: Speci men Type: BLOOD SPECIMENOrdering Facility: [facility] Address: [address] [place] [address] Performed By: #### 4 5066-8, 54151-0, 3084-1 ####[facility] [id number] [place] [id number] [place] No Panel InformationOrdered By: Ashley Lemus on 12-13-2024 Interpretation and review of laboratory results Normal [facility] PROTEIN / CREATININE RATIOon 12-13-2024 Protein/Creatinine (U) [Mass ratio] 0.77 mg/mg High NINF - 0.15 mg/mg [facility] Comment on above: Adult Proteinuria Ca tegories: <0.15 mg/mg is considered normal to mildly increased 0.15 - 0.50 mg/mg is considered moderately increased >0.50 mg/mg is considered severely increased KDIGO. (2013). KDIGO 2012 Clinical Practice Guideline for the Evaluation and Management of Chronic Kidney Disease. Official Journal of the International Society of Nephrology, 3(1), 1-150. Prot/Creat Uron 12-13-2024 Protein/Creatinine (U) [Mass ratio] 0.77 mg/mg High <0.15 [facility] Comment on above: Order Comment: Speci men Type: URINE SPECIMEN Ordering Facility: [facility] Address: [address] [place] [address] Result Comment: Adul t Proteinuria Categories: <0.15 mg/mg is considered normal to mildly increased 0.15 - 0.50 mg/mg is considered moderately increased >0.50 mg/mg is considered severely increased KDIGO. (2013). KDIGO 2012 Clinical Practice Guideline for the Evaluation and Management of Chronic Kidney Disease. Official Journal of the International Society of Nephrology, 3(1), 1-150. Performed By: #### 2 890-2 #### [facility] CLIA [id number] [address] [place] [address] [place] Protein/Creatinine (U) [Mass ratio]on 12-13-2024 Creatinine (U) [Mass/Vol] 98.1 mg/dL 20.0 - 300.0 mg/dL [facility] Interpretation and review of laboratory results Abnormal [facility] Protein (U) [Mass/Vol] 76 mg/dL High 0 - 20 mg/dL [facility] Creatinine (U) [Mass/Vol] 98.1 mg/dL Normal 20.0-300.0 [facility] Comment on above: Order Comment: Speci men Type: URINE SPECIMEN Ordering Facility: [facility] Address: [address] [place] [address] Performed By: #### 2 890-2 #### [facility] CLIA [id number] [address] [place] [address] [place] Protein (U) [Mass/Vol] 76 mg/dL High 0-20 [facility] Comment on above: Order Comment: Speci men Type: URINE SPECIMEN Ordering Facility: [facility] Address: [address] [place] [address] Performed By: #### 2 890-2 #### [facility] CLIA [id number] [address] [place] [address] [place] URIC ACIDOrdered By: Breanna Lemus on 12-13-2024 Urate [Mass/Vol] 5.0 mg/dL 2.5 - 6.6 mg/dL [facility] URINE OB DIP B/Oon 5 Glucose Ql (U) Negative Neg mg/dL [facility] Interpretation and review of laboratory results Normal [facility] Protein.monoclonal (U) [Mass/Vol] 30 mg/dL Neg [facility] Urate SerPl-mCncon 5 Urate [Mass/Vol] 5.0 mg/dL Normal 2.5-6.6 [facility] Comment on above: Order Comment: Speci men Type: BLOOD SPECIMENOrdering Facility: [facility] Address: [address] [place] [address] Performed By: #### 4 5066-8, 61552-8, 3084-1 ####[facility] [id number] [place] [address] [place] Discharge Instructionon Discharge Instruction [facility] Medical Records Department [address] [place] [address] Instructions for Home/Discharge Instructions 12/08/24 0740 MR#: [id number] Acct: [id number] Name: HILLARY FRAIRE Rep #: [id number] : 1990 34 From: Latesha Elena MD PCP: HIRO Mart Status:REG [facility] Discharge Instructions Diet Discharge Diet: No restrictions Activity Discharge Activity: Return to Normal Activity Dressing / Incision Call your doctor if you observe: Fever of 101 or Higher, Inability to urinate and Inability to have a bowel movement Follow Up Care Please Follow Up With: Latesha Elena MD Test Results: Test results from this visit will be discussed in further detail at your follow-up appointment, if applicable. Discharge Plan Admission Attending Provider: Latesha Elena Primary Care Provider: Madison Butler Instructions Print Language: Fijian Discharge Orders/Prescriptions Prescriptions: Continued ciazfqbm-upe-My-FA 1 mg Tablet 1 tab PO DAILY acetaminophen 500 mg Tablet 1,000 mg PO Q6H PRN PRN (Reason: Pain 1-10 Or Fever) Qty: 0 0RF aspirin 81 mg capsule 81 mg PO DAILY oxycodone 5 mg capsule 5 mg PO Q8H PRN (Reason: pain) 5 Days Qty: 15 0RF cephalexin 500 mg capsule 500 mg PO TID Qty: 60 0RF ferrous sulfate [Evelyn-Time] 325 mg (65 mg iron) tablet 325 mg PO QODAY Referrals / Follow Up: Madison Butler NP-C [Primary Care Provider] - Disposition Disposition (needs filled in before D/C Order can be placed): Home, Self Care 12/08/24 0741 Latesha Elena MD CC: CORPORATE TRAFFIC MANAGERDelgadoC Madison Butler Signed Normal [facility] H AND P Exam - Surgicalon H&P Exam - Surgical [facility] Medical Records Department [address] [place] [address] H P Exam - Surgical 12/08/24 0737 MR#: [id number] Acct: [id number] Name: HILLARY FRAIRE Rep #: [id number] : 1990 34 From: Latesha Elena MD PCP: HIRO Mart Status:REG [facility] Location: [place] [address] HPI - General General Date of Admission: 12/08/24 Date of Service: 12/08/24 Chief Complaint: Left flank pain HPI Narrative HILLARY FRAIRE, is a 34 F who presents for a cystoscopy with left ureteral stent change after her inserted stent migrated and her flank pain returned from obstruction due to a large ureteropelvic junction stone. [facility] Medical History Wears glasses Wears contact lenses Low iron Heartburn Hydronephrosis Ureteropelvic junction calculus SROM (spontaneous rupture of membranes) Anxiety Home Medications ???Medication ???Instructions ???Recorded ???Last Taken ???Type vytullwz-fnv-Fq-FA 1 mg 1 tab PO DAILY 01/08/21 [...] PO Q8H PRN pain 5 days #15 12/07/24 Rx caps ferrous sulfate 325 mg (65 mg 325 mg PO QODAY 12/07/24 12/03/24 History iron) tablet (Evelyn-Time) Allergy/AdvReac Type Severity Reaction Status Date / Time No Known Allergies Allergy Verified 12/07/24 13:28 Surgical History H/O wisdom tooth extraction Social History Smoking Status: Former smoker ROS Constitutional Constitutional: Denies anorexia, chills, fatigue or fever(s) Eyes Eyes: Reports systems reviewed and no addt'l complaints, except as documented ENT HEENT: Reports systems reviewed and no addt'l complaints, except as documented Cardiovascular Cardiovascular: Reports systems reviewed and no addt'l complaints, except as documented; Denies chest pain or dyspnea Respiratory/Chest Respiratory/Chest: Reports systems reviewed and no addt'l complaints, except as documented; Denies cough or dyspnea Gastrointestinal Gastrointestinal: Reports abdominal pain and nausea Genitourinary Genitourinary: Reports flank pain; Denies dysuria Musculoskeletal Musculoskeletal: Reports systems reviewed and no addt'l complaints, except as documented Integumentary Integumentary: Reports systems reviewed and no [...] and no addt'l complaints, except as documented Vital Signs Vital Signs Vital Signs: 12/08/24 06:26 12/08/24 06:29 12/08/24 06:54 Temperature 96.9 F L 96.9 F L Temperature Source Temporal Pulse Rate 100 100 Respiratory Rate 16 16 Respiratory Pattern Normal Blood Pressure 121/77 H 121/77 H Blood Pressure Mean 91 Blood Pressure Source Monitor Blood Pressure Position Sitting Blood Pressure Location Left Arm Pulse Ox 99 99 Oxygen Delivery Method Room Air Room Air Weight Weight: 275 lb 9.245 oz Body Mass Index (BMI) 37.3 Physical Exam Const oriented x3 and no apparent distress Resp normal respiratory effort Auscultation: Negative for wheezes Cardio regular rate GI soft to palpation GI Narrative: Gravid Inspection: Negative for abdominal distention Bladder / Kidney Exam: CVA tenderness left Extremity normal to inspection Results Lab / Micro Data Attestation: I reviewed the patient's lab results. Assessment Plan Assessment/Plan (1) Ureteropelvic junction calculus: (2) Hydronephrosis: QUALIFIERS: Hydronephrosis type: with ureteropelvic junction obstruction Qualified Code(s): Q62.11 - Congenital occlusion of ureteropelvic junction (3) Recurrent UTI (urinary tract infection) complicating : QUALIFIERS: Trimester: third trimester Qualified Code(s): O23.43 - Unspecified infection of urinary tract in , third trimester PLAN: Plan Continue antibiotics Continue supportive care Proceed with cystoscopy and left ureteral stent change The procedure, r (more content not included)... Normal [facility] MR/POSTOP.ANEon 12-08-2024 MR/POSTOP.ANE [facility] Medical Records Department [address] [place] [address] Anesthesia Postop Eval I 12/08/24819 MR#: [id number] Acct: [id number] Name: AMY FRAIREILLY HERNESTO Rep #: [id number] : 1990 34 From: Latesha Charlton CRNA PCP: HIRO Mart Status:REG [facility] Y Race: C Location: [place] [address] Anesthesia: Postop Eval I Current Vital Signs Temperature: 97.3 F Pulse Rate: 84 Blood Pressure: 127/72 Respiratory Rate: 14 Pulse Ox: 98 Oxygen Delivery Method: Room Air Assessment Airway patent: Yes Spontaneous unlabored respirations: Yes Mental status: Awake nausea: No Vomiting: No Anesthesia Complication: No Fluid Hydration Crystalloid volume administer (ml): 400 Total IV fluid infused: 400 Progress Note Anesthesia document: Postop Eval 1 completed: Yes 12/08/24819 Date Latesha Charlton CRNA Cosigner Signature: Date CC: Signed [facility] Operative Reporton Operative Report [facility] Medical Records Department [address] [place] [address] Operative Report 12/08/24740 MR#: [id number] Acct: [id number] Name: KEKEHILLARY ERIC Rep #: [id number] : 1990 34 From: Latesha Elena MD PCP: HIRO Mart Status:DEP [facility] Location: [facility] Operative Report (Standard) Operative Information Date of Procedure: 12/08/24 Pre-Operative Diagnosis: Left ureteropelvic junction stone with obstruction, UTI Post-Operative Diagnosis: Same Surgery/Procedure Performed: Cystoscopy with left ureteral stent change hay buckler: No Type of Anesthesia: Spinal RN Documented Start/Stop Times: Operation Date: 12/08/24 07:30 Case Time Into Pre-Op 12/08/24 06:02 Out of Pre-Op 12/08/24 07:33 Anesthesia Start 12/08/24 07:39 Into Room 12/08/24 07:39 Procedure Start 12/08/24 08:01 Procedure End 12/08/24 08:06 Anesthesia End 12/08/24 08:14 Out of Room 12/08/24 08:14 Into Recovery 12/08/24 08:16 Into Phase II Recovery 12/08/24 08:55 Out of Recovery 12/08/24 08:55 Out of Phase II 12/08/24 12:10 Procedure Start Time: 08:01 Procedure Stop Time: 08:06 Select all DRAINS/GRAFTS/IMPLAN TS that apply: Drains Drain details: 6 [place] by 28 cm JJ stent Estimated Blood Loss: <5cc Specimen collected: No Description of surgery: The patient is a 34-year-old female with a large left ureteropelvic junction stone with obstruction. She is 34 weeks . She had a left ureteral stent inserted 2 days ago. It was a 4.5 [place] in diameter stent. Within 12 hours the stent migrated distally in her pain returned in significant fashion. She now presents for a stent change with a larger bore stent. Informed consent was obtained. She was taken to the operating [...] entirety revealing no evidence of mass, erythema, ulceration. The indwelling left ureteral stent was observed and removed with graspers. A 0.035 Glidewire was then inserted through the ureteral orifice and advanced beyond the stone in the renal pelvis. 6 [place] 28 cm stent was placed over the wire with good positioning in the renal pelvis as well as the urinary bladder. At this time the bladder was emptied and the cystoscope was removed. She was awakened and taken to the recovery room in good condition. There were no complications during this procedure. Surgical Findings: Migrated 4.5 [place] left ureteral stent, replaced with a 6 [place] 28 cm JJ stent Complications Complications: No Admit VTE Documentation VTE Present on Admission: Yes VTE Mechan Device Prophylaxis: SCD's VTE Pharm Prophylaxis ordered?: No Reason prophylaxis not ordered: Treatment Not Indicated 12/08/24 1226 Cosigner Signature (if applicable): CC: HIRO Butler; Dr. Latesha Elena MD Signed Normal [facility] Kidney and Bladderon 025 Kidney and Bladder [facility] Imaging Services [address] [place], [place] [address] Kidney and Bladder MR#: [id number] Acct: [id number] Name: HILLARY FRAIRE Rep #: [id number] : 1990 F 34 From: Ricardo Meza MD PCP: Dr. Chiki Gonzales MD Status: REG CLI Study: Kidney and Bladder Date of Exam: 12/07/24 Exam# [id number] Ordering Dr: Polly Hamilton MD PROCEDURE: KIDNEY AND BLADDER 12/07/2024 REASON FOR EXAM: INCREASED PAIN Left renal calculus. TECHNIQUE: Procedure Code: USKI Modality: US Procedure: KIDNEY AND BLADDER COMPARISON: December 04, 2024 FINDINGS: Kidneys: Right kidney is 12.3 x 5.9 x 5.2 cm, while the left is 15.4 x 7.3 x 6.6 cm. Stovall: No collecting system dilation on the right [...] in position. See above description Reading Location: [id number] CC: Dr. Polly Hamilton MD; Dr. Chiki Gonzales MD Dental Technician Instructor: Signed Normal [facility] OB Triage Physician Noteon 0 12-07-2024 OB Triage Physician Note [facility] Medical Records Department [address] [place] [address] OB Triage Physician Note 12/07/24 0137 MR#: [id number] Acct: [id number] Name: HILLARY FRAIRE Rep #: [id number] : 1990 34 From: Polly Hamilton MD PCP: Dr. Chiki Gonzales MD Status:REG CLI Y [facility] HPI - General General Date of Admission: [...] Final BRITTANY: 01/14/25 Gestational age: 34+4 PFSH [facility] Medical History (Updated 12/07/24 @ 01:[address] Polly Hamilton MD) Hydronephrosis Ureteropelvic junction calculus SROM (spontaneous rupture of membranes) Anxiety Home Medications ???Medication ???Instructions ???Recorded ???Last Taken ???Type aunqjwjv-oto-Hm-FA 1 mg 1 tab PO DAILY 01/08/21 [...] MD; Dr. Chiki Gonzales MD Signed Normal [facility] Absolute lymphocyte countOrd ered By: Adina Krueger on 12-06-2024 Lymphocytes Auto (Unsp spec) [#/Vol] 1.84 10*3/uL 0.83-4.51 [facility] Absolute neutrophil countOrd ered By: Adina Krueger on 12-06-2024 Neutrophils (Bld) [#/Vol] 11.6 10*3/uL High 2.0-7.7 [facility] Automated lymphocyte count a s percentage of total leukocytesOrdered By: Adina Krueger on 12-06-2024 Lymphocytes/100 WBC Auto (Unsp spec) 12.4 % Low 19-41 [facility] Basophil percentageOrdered B y: Adina Krueger on 12-06-2024 Basophils/100 WBC (Bld) 0.2 % 0-1 [facility] CBC W/Diff, Automatedon Absolute Lymph 1.84 X10 3/uL Normal 0.83-4.51 [facility] Comment on above: Performed By: #### L 501.1105 #### [facility] [address] [place], [address] Absolute Neut 11.6 X10 3/uL High 2.0-7.7 [facility] Comment on above: Performed By: #### L 501.1105 #### [facility] [address] [place], [address] Basophils/100 WBC (Bld) 0.2 % Normal 0-1 [facility] Comment on above: Performed By: #### L 501.1105 #### [facility] [address] [place], [address] Eosinophils/100 WBC (Bld) 0.2 % Normal 0-5 [facility] Comment on above: Performed By: #### L 501.1105 #### [facility] [address] [place], [address] Erythrocyte distribution width (RBC) [Ratio] 13.1 % Normal 11.6-14.6 [facility] Comment on above: Performed By: #### L 501.1105 #### [facility] [address] [place], [address] Hematocrit (Bld) [Volume fraction] 27.3 % Low 37-47 [facility] Comment on above: Performed By: #### L 501.1105 #### [facility] [address] [place], [address] Hemoglobin (Bld) [Mass/Vol] 9.1 g/dL Low 12.0-15.0 [facility] Comment on above: Performed By: #### L 501.1105 #### [facility] [address] [place], [address] IG% 0.900 Normal 0.0-0.9 [facility] Comment on above: Result Comment: IG% - Immature Granulocytes (promyelocytes, myelocytes and metamyelocytes) > 1% indicates that a LEFT SHIFT is Present. Performed By: #### L 501.1105 #### [facility] [address] [place], [address] Lymphocytes/100 WBC (Bld) 12.4 % Low 19-41 [facility] Comment on above: Performed By: #### L 501.1105 #### [facility] [address] [place], [address] MCH (RBC) [Entitic mass] 30.3 pg Normal 27.0-32.0 [facility] Comment on above: Performed By: #### L 501.1105 #### [facility] [address] [place], [address] MCHC (RBC) [Mass/Vol] 33.3 g/dL Normal 32-36 [facility] Comment on above: Performed By: #### L 501.1105 #### [facility] [address] [place], [address] MCV (RBC) [Entitic vol] 91.0 fL Normal 81-99 [facility] Comment on above: Performed By: #### L 501.1105 #### [facility] [address] [place], [address] Monocytes/100 WBC (Bld) 8.0 % Normal 0-10 [facility] Comment on above: Performed By: #### L 501.1105 #### [facility] [address] [place], [address] Neutrophils/100 WBC (Bld) 78.3 % High 47-70 [facility] Comment on above: Performed By: #### L 501.1105 #### [facility] [address] [place], [address] Nucleated RBC (Bld) [#/Vol] 0 10*3/uL Normal 0-5 [facility] Comment on above: Performed By: #### L 501.1105 #### [facility] [address] [place], [address] Platelet mean volume (Bld) [Entitic vol] 11.9 fL Normal 6.2-12.0 [facility] Comment on above: Performed By: #### L 501.1105 #### [facility] [address] [place], [address] Platelets (Bld) [#/Vol] 167 10*3/uL Normal 150-450 [facility] Comment on above: Performed By: #### L 501.1105 #### [facility] [facility] [address] [place], [address] RBC (Bld) [#/Vol] 3.00 10*6/uL Low 4.2-5.4 [facility] Comment on above: Performed By: #### L 501.1105 #### [facility] [address] [place], [address] RDW SD 42.8 fl Normal 35.1-43.9 [facility] Comment on above: Performed By: #### L 501.1105 #### [facility] [address] [place], [address] WBC (Bld) [#/Vol] 14.8 10*3/uL High 4.4-11.0 [facility] Comment on above: Performed By: #### L 501.1105 #### [facility] [address] [place], [address] Eosinophil percentageOrdered By: Adina Krueger on 12-06-2024 Eosinophils/100 WBC (Bld) 0.2 % 0-5 [facility] Erythrocyte distribution wid th ratioOrdered By: Adina Krueger on 12-06-2024 Erythrocyte distribution width (RBC) [Ratio] 13.1 % 11.6-14.6 [facility] Erythrocyte distribution wid th standard deviationOrdered By: Adina Krueger on 12-06-2024 Erythrocyte distribution width (RBC) [Ratio] 42.8 fl 35.1-43.9 [facility] Hematocrit Auto (Bld) [Volum e fraction]Ordered By: Adina Krueger on 12-06-2024 Hematocrit (Bld) [Volume fraction] 27.3 % Low 37-47 [facility] Hemoglobin measurementOrdere d By: Adina Krueger on 12-06-2024 Hemoglobin (Bld) [Mass/Vol] 9.1 g/dL Low 12.0-15.0 [facility] Immature granulocytes/100 WB C Auto (Bld)Ordered By: Adina Krueger on 12-06-2024 Immature granulocytes/100 WBC (Bld) 0.900 % 0.0-0.9 [facility] Comment on above: IG% - Immature Granu locytes (promyelocytes, myelocytes and metamyelocytes) > 1% indicates that a LEFT SHIFT is Present. MCV (mean corpuscular volume ) determinationOrdered By: Adina Krueger on 12-06-2024 MCV (RBC) [Entitic vol] 91.0 fL 81-99 [facility] MR/POSTOP.ANEon 12-06-2024 MR/POSTOP.[facility] Medical Records Department [address] [place] [address] Anesthesia Postop Eval I 12/06/241044 MR#: [id number] Acct: [id number] Name: HILLARY FRAIRE Rep #: [id number] : 1990 34 From: Darryl Harvey MD PCP: Dr. Chiki Gonzales MD Status:ADM IN Y Race: C Location: [place] [address] Anesthesia: Postop Eval I Current Vital Signs [...] Yes 12/06/24 1348 Date Darryl Harvey MD Cosigner Signature: Date CC: Signed Normal [facility] MR/[id number] 12-06-2024 MR/POSTOPAN2 [facility] Medical Records Department [address] [place] [address] Anesthesia Postop Eval II 12/06/24 1047 MR#: [id number] Acct: [id number] Name: HILLARY FRAIRE Rep #: [id number] : 1990 34 From: Darryl Harvey MD PCP: Dr. Chiki Gonzales MD Status:ADM IN Y Race: C Location: [place] [id number] Anesthesia Postop Eval I Sum Postop Eval [...] No 12/06/24 1048 Date Darryl Harvey MD Cosigner Signature: Date CC: Signed Normal [facility] Mean corpuscular hemoglobin (MCH) determinationOrdered By: Adina Krueegr on 12-06-2024 MCH (RBC) [Entitic mass] 30.3 pg 27.0-32.0 [facility] Mean corpuscular hemoglobin concentration (MCHC) determinationOrdered By: Adina Krueger on 12-06-2024 MCHC (RBC) [Mass/Vol] 33.3 g/dL 32-36 [facility] Mean platelet volume determi nationOrdered By: Adina Krueger on 12-06-2024 Platelet mean volume (Bld) [Entitic vol] 11.9 fL 6.2-12.0 [facility] Monocyte percentageOrdered B y: Adina Krueger on 12-06-2024 Monocytes/100 WBC (Bld) 8.0 % 0-10 [facility] Neutrophil percentageOrdered By: Adina Krueger on 12-06-2024 Neutrophils/100 WBC (Bld) 78.3 % High 47-70 [facility] Nucleated red blood cell per centageOrdered By: Adina Krueger on 12-06-2024 Nucleated RBC/100 WBC (Bld) [Ratio] 0 % 0-5 [facility] Operative Reporton Operative Report [facility] Medical Records Department [address] [place] [address] Operative Report 12/06/24 1007 MR#: [id number] Acct: [id number] Name: HILLARY FRAIRE Rep #: [id number] : 1990 34 From: Latesha Elena MD PCP: Dr. Chiki Gonzales MD Status:ADM IN Location: [id number] Operative Report (Standard) Operative Information Date of Procedure: 12/06/24 Pre-Operative Diagnosis: Left ureteropelvic junction stone with obstruction and urinary tract infection Post-Operative Diagnosis: Same Surgery/Procedure Performed: Cystoscopy with left ureteral stent insertion hay buckler: No Type of Anesthesia: Spinal RN Documented Start/Stop Times: Operation Date: 12/06/24 10:10 Case Time Anesthesia Start 12/06/24 10:08 Into Room 12/06/24 10:08 Procedure Start 12/06/24 10:23 Procedure End 12/06/24 10:29 Anesthesia End 12/06/24 10:37 Out of Room 12/06/24 10:37 Into Recovery 12/06/24 10:41 Procedure Start Time: 10:23 Procedure Stop Time: 10:29 Select all DRAINS/GRAFTS/IMPLAN TS that apply: Drains Drain details: 4.5 [place] x 28 cm JJ stent Estimated Blood [...] stone in the renal pelvis. A 4.5 [place] 28 cm stent was placed over the wire with good positioning in the renal pelvis as well as the urinary bladder. At this time the bladder was emptied and the cystoscope was removed. She was awakened and taken to the recovery room in good condition. There were no complications during this procedure. Surgical Findings: 4.5 [place] x 28 cm JJ stent Complications Complications: No Admit VTE Documentation VTE Present on Admission: Yes VTE Mechan Device Prophylaxis: SCD's VTE Pharm Prophylaxis ordered?: No Reason prophylaxis not ordered: Treatment Not Indicated 12/06/24 1048 Cosigner Signature (if applicable): CC: CARLOS Moreno; Dr. Latesha Elena MD; Dr. Chiki Gonzales MD Signed Normal [facility] Platelet countOrdered By: Melody Krueger on 12-06-2024 Platelets (Bld) [#/Vol] 167 10*3/uL 150-450 [facility] RBC Auto (Bld) [#/Vol]Ordere d By: Adina Krueger on 12-06-2024 RBC (Bld) [#/Vol] 3.00 10*6/uL Low 4.2-5.4 [facility] Urine Cultureon 12-06-2024 URC Escherichia coli [place] Count 11,000-25,000 Escherichia coli: REACTION Ampicillin Islt [...] TMP SMX Islt CELESTINO <=20 S Normal [facility] Comment on above: Performed By: #### L 501.1105 #### [facility] [address] [facility] [place], [place], [address] White blood cell (WBC) count Ordered By: Adina Krueger on 12-06-2024 WBC (Bld) [#/Vol] 14.8 10*3/uL High 4.4-11.0 [facility] OB Triage Physician Noteon 0 12-05-2024 OB Triage Physician Note [facility] Medical Records Department [address] [place] [address] OB Triage Physician Note 12/05/24 1333 MR#: [id number] Acct: [id number] Name: HILLARY FRAIRE Rep #: [id number] : 1990 34 From: Adina Krueger MD PCP: Dr. Chiki Gonzales MD Status:ADM IN Y Location: NB764-7 HPI - General General Date of Admission: [...] Medications ???Medication ???Instructions ???Recorded ???Last Taken ???Type zsrvyjdd-kkd-Vo-FA 1 mg 1 tab PO DAILY 01/08/21 [...] Dr. Adina Krueger MD * Signed Normal [facility] Abdomen/Pelvis without Conto n 12-04-2024 Abdomen/Pelvis without Cont [facility] Imaging Services [address] [place] [address] Abdomen/Pelvis without Cont MR#: [id number] Acct: [id number] Name: HILLARY FRAIRE Rep #: [id number] : 1990 F 34 From: Breezy Paige MD PCP: Dr. Chiki Gonzales MD Status: REG CLI Study: Abdomen/Pelvis without Cont Date of Exam: 11/07 Exam# [id number] Ordering Dr: Sheyla Moreno CNM PROCEDURE: ABDOMEN/PELVIS [...] x 11 mm. Left-sided hydronephrosis. [facility] CC: CARLOS Moreno; Dr. Chiki Gonzales MD Dental Technician Instructor: Signed Normal [facility] Bilirubin Test strip Ql (U)O rdered By: Sheyla Moreno on 12-04-2024 Bilirubin Ql (U) Negative Negative [facility] CBC W/Diff, Automatedon 11-07 Absolute Lymph 1.65 X10 3/uL Normal 0.83-4.51 [facility] Comment on above: Performed By: #### L 100.0100 #### [facility] [address] [place], [address] Absolute Neut 11.2 X10 3/uL High 2.0-7.7 [facility] Comment on above: Performed By: #### L 100.0100 #### [facility] [address] [place], [address] Basophils/100 WBC (Bld) 0.3 % Normal 0-1 [facility] Comment on above: Performed By: #### L 100.0100 #### [facility] [address] [place], [address] Eosinophils/100 WBC (Bld) 0.1 % Normal 0-5 [facility] Comment on above: Performed By: #### L 100.0100 #### [facility] [address] [place], [address] Erythrocyte distribution width (RBC) [Ratio] 12.7 % Normal 11.6-14.6 [facility] Comment on above: Performed By: #### L 100.0100 #### [facility] [address] [place], [address] Hematocrit (Bld) [Volume fraction] 32.2 % Low 37-47 [facility] Comment on above: Performed By: #### L 100.0100 #### [facility] [address] [place], [address] Hemoglobin (Bld) [Mass/Vol] 11.0 g/dL Low 12.0-15.0 [facility] Comment on above: Performed By: #### L 100.0100 #### [facility] [address] [place], [address] IG% 0.900 Normal 0.0-0.9 [facility] Comment on above: Result Comment: IG% - Immature Granulocytes (promyelocytes, myelocytes and metamyelocytes) > 1% indicates that a LEFT SHIFT is Present. Performed By: #### L 100.0100 #### [facility] [address] [place], [address] Lymphocytes/100 WBC (Bld) 12.0 % Low 19-41 [facility] Comment on above: Performed By: #### L 100.0100 #### [facility] [address] [place], [address] MCH (RBC) [Entitic mass] 30.8 pg Normal 27.0-32.0 [facility] Comment on above: Performed By: #### L 100.0100 #### [facility] [address] [place], [address] MCHC (RBC) [Mass/Vol] 34.2 g/dL Normal 32-36 [facility] Comment on above: Performed By: #### L 100.0100 #### [facility] [address] [place], [address] MCV (RBC) [Entitic vol] 90.2 fL Normal 81-99 [facility] Comment on above: Performed By: #### L 100.0100 #### [facility] [address] [place], [address] Monocytes/100 WBC (Bld) 5.4 % Normal 0-10 [facility] Comment on above: Performed By: #### L 100.0100 #### [facility] [address] [place], [address] Neutrophils/100 WBC (Bld) 81.3 % High 47-70 [facility] Comment on above: Performed By: #### L 100.0100 #### [facility] [address] [place], [address] Nucleated RBC (Bld) [#/Vol] 0 10*3/uL Normal 0-5 [facility] Comment on above: Performed By: #### L 100.0100 #### [facility] [address] [place], [address] Platelet mean volume (Bld) [Entitic vol] 11.8 fL Normal 6.2-12.0 [facility] Comment on above: Performed By: #### L 100.0100 #### [facility] [address] [place], [address] Platelets (Bld) [#/Vol] 185 10*3/uL Normal 150-450 [facility] Comment on above: Performed By: #### L 100.0100 #### [facility] [address] [place], [address] RBC (Bld) [#/Vol] 3.57 10*6/uL Low 4.2-5.4 [facility] Comment on above: Performed By: #### L 100.0100 #### [facility] [address] [place], [address] RDW SD 41.8 fl Normal 35.1-43.9 [facility] Comment on above: Performed By: #### L 100.0100 #### [facility] [address] [place], [address] WBC (Bld) [#/Vol] 13.8 10*3/uL High 4.4-11.0 [facility] Comment on above: Performed By: #### L 100.0100 #### [facility] [address] [place], [address] Demario 12-04-2024 DIMITRIOS Telephone (DERRICKHI) HILLARY FRAIRE ([id number]) 1990 F Date Time Provider Department 12/04/24 AMISHA ALBERTO GYNMN During your visit today, we recorded the following information about you: Amisha Alberto MD 12/04/2024 1:45 PM Addendum Telephone Encounter Hillary Fraire [id number] Provider: Dr. Baltazar Patient identity verified by name and . Hillary Fraire is a 34 year old at 34w1d. Attempted to call patient x3 regarding pain, sent to [employer]. Voicemail is full, unable to leave message. Amisha Alberto MD Allergies As of Date: 12/04/2024 (No Known Allergies) Date Reviewed: 11/26/2024 Reviewed by: Maurilio Penn LPN - Fully Assessed Prescriptions as [...] Status:Closed by AMISHA ALBERTO on 12/04/24 Normal [facility] Glomerular filtration rate ( GFR) estimation/1.73 sq m using serum, plasma, or whole bOrdered By: Sheyla Moreno on 12-04-2024 GFR/1.73 sq M.predicted among non-blacks MDRD (S/P/Bld) [Vol rate/Area] 76 mL/min/{1.73_m2} >60 [facility] Comment on above: mL/min/1.73m2 CKD-EP I Creatinine Equation (2020) Ketones Test strip Ql (U)Ord ered By: Sheyla Moreno on 12-04-2024 Ketones Ql (U) Negative Negative [facility] Microscopic analysis of urin e for red blood cells (RBC)Ordered By: Sheyla Moreno on 12-04-2024 Microscopic analysis of urine for red blood cells (RBC) 0-5 SEEN /hpf 0-5 [facility] Mucus LM Ql (Urine sed)Order ed By: Sheyla Moreno on 12-04-2024 Mucus Ql (Urine sed) 0 SEEN /hpf [facility] Nitrite Test strip Ql (U)Ord ered By: Sheyla Moreno on 12-04-2024 Nitrite Ql (U) Negative Negative [facility] OB Triage Physician Noteon 0 12-04-2024 OB Triage Physician Note [facility] Medical Records Department [address] [place] [address] OB Triage Physician Note 12/04/24 1131 MR#: [id number] Acct: [id number] Name: HILLARY FRAIRE Rep #: [id number] : 1990 34 From: Sheyla Moreno CNM PCP: Dr. Chiki Gonzales MD Status:REG CLI Y Location: [id number] HPI - General General Date of Service: [...] prophylaxis. Maternal Data Information Final BRITTANY: 01/14/25 [facility] Medical History (Updated 12/04/24 @ 12:46 by Sheyla Moreno CNM) SROM (spontaneous rupture of membranes) Anxiety Home Medications ???Medication ???Instructions ???Recorded ???Last Taken ???Type oqwwqcll-adm-Hc-FA 1 mg 1 tab PO DAILY 01/08/21 [...] person Tonia (more content not included)... Normal [facility] Protein Test strip Ql (U)Ord ered By: Sheyla Moreno on 12-04-2024 Protein Ql (U) 15 mg/dl High Negative [facility] Serum Creatinine AND GFRon 0 12-04-2024 Creatinine [Mass/Vol] 1.00 mg/dL Normal 0.70-1.20 [facility] Comment on above: Performed By: #### L 501.1105 #### [facility] [address] [place], [place], [address] ECRCL 118.54 ml/min Normal 50-250 [facility] Comment on above: Performed By: #### L 501.1105 #### [facility] [address] [place], [address] GFR/1.73 sq M.predicted among non-blacks MDRD (S/P/Bld) [Vol rate/Area] 76 mL/min/{1.73_m2} Normal >60 [facility] Comment on above: Result Comment: mL/m in/1.73m2 CKD-EPI Creatinine Equation (2020) Performed By: #### L 501.1105 #### [facility] [address] [place], [address] Serum creatinine measurement (mass/volume)Ordered By: Sheyla Moreno on 12-04-2024 Creatinine [Mass/Vol] 1.00 mg/dL 0.70-1.20 [facility] Squamous epithelial cells de tection in urine sediment by light microscopyOrdered By: Sheyla Moreno on 12-04-2024 Epithelial cells.squamous LM Ql (Urine sed) 0-5 SEEN /hpf 5-10 [facility] Urinalysis, Completeon 12-04 EPI,SQUAMOUS 0-5 SEEN Normal 5-10 [facility] Comment on above: Order Comment: CLEAN CATCH Performed By: #### L 501.1105 #### [facility] [address] [place], [place], [id number] (501) RBC 0-5 SEEN Normal 0-5 [facility] Comment on above: Order Comment: CLEAN CATCH Performed By: #### L 501.1105 #### [facility] [address] [place], [address] WBC 5-10 SEEN Normal 0-5 [facility] Comment on above: Order Comment: CLEAN CATCH Performed By: #### L 501.1105 #### [facility] [address] [place], [address] BACTERIA 0 SEEN Normal None Seen [facility] Comment on above: Order Comment: CLEAN CATCH Performed By: #### L 501.1105 #### [facility] [address] [place], [address] Mucus Ql (Urine sed) 0 SEEN Normal [facility] Comment on above: Order Comment: CLEAN CATCH Performed By: #### L 501.1105 #### [facility] [address] [place], [address] Urine clarityOrdered By: Alessandra Moreno on 12-04-2024 Clarity (U) Sl. Cloudy Clear [facility] Urine color determinationOrd ered By: Sheyla Moreno on 12-04-2024 Color (U) Yellow Yellow [facility] Urine cultureOrdered By: Alessandra Moreno on 12-04-2024 Bacteria identified Cx Nom (U) Escherichia coli Abnormal [facility] Urine glucose detectionOrder ed By: Sheyla Moreno on 12-04-2024 Glucose Ql (U) Normal mg/dl Normal [facility] Urine leukocyte esterase det ection by dipstickOrdered By: Sheyla Moreno on 12-04-2024 Leukocyte esterase Test strip Ql (U) 25 /ul High Negative [facility] Urine pHOrdered By: Sheyla Moreno on 12-04-2024 pH (U) 7.0 [pH] 5.0 - 8.0 [facility] Urine sediment bacteria coun t by microscopy (number/high power field)Ordered By: Sheyla Moreno on 12-04-2024 Bacteria LM.HPF (Urine sed) [#/Area] 0 /[HPF] None Seen [facility] Urine specific gravity measu rementOrdered By: Sheyla Moreno on 12-04-2024 Specific gravity (U) [Rel density] 1.015 1.002-1.030 [facility] Urine urobilinogen measureme ntOrdered By: Sheyla Moreno on 12-04-2024 Urobilinogen Ql (U) 1 mg/dl High Normal [facility] White blood cell countOrdere d By: Sheyla Moreno on 12-04-2024 White blood cell count 5-10 SEEN /hpf 0-5 [facility] CBC W Auto Differential pane l (Bld)on 11-26-2024 Basophils (Bld) [#/Vol] 0.03 10*3/uL Normal <0.11 [facility] Comment on above: Order Comment: Speci men Type: BLOOD SPECIMEN Ordering Facility: [facility] Address: [address] [place] [address] Performed By: #### 2 4323-8, 3083-1 #### [facility] CLIA [id number] [address] [place] [address] [place] Basophils/100 WBC (Bld) 0.2 % Normal C [facility] Comment on above: Order Comment: Speci men Type: BLOOD SPECIMEN Ordering Facility: [facility] Address: [address] [place] [address] Performed By: #### 2 4323-8, 3083-1 #### [facility] CLIA [id number] [address] [place] [address] [place] Differential cell count method Nom (Bld) Auto Normal [facility] Comment on above: Order Comment: Speci men Type: BLOOD SPECIMEN Ordering Facility: [facility] Address: [address] [place] [address] Performed By: #### 2 4323-8, 3084-1 #### [facility] CLIA [id number] [address] [place] [address] [place] Eosinophils (Bld) [#/Vol] 0.07 10*3/uL Normal <0.46 [facility] Comment on above: Order Comment: Speci men Type: BLOOD SPECIMEN Ordering Facility: [facility] Address: [address] [place] [address] Performed By: #### 2 4323-8, 3083- #### [facility] CLIA [id number] [address] [place] [address] [place] Eosinophils/100 WBC (Bld) 0.6 % Normal [facility] Comment on above: Order Comment: Speci men Type: BLOOD SPECIMEN Ordering Facility: [facility] Address: [address] [place] [address] Performed By: #### 2 4323-8, 3083-04 #### [facility] CLIA [id number] [address] [place] [address] [place] Erythrocyte distribution width (RBC) [Ratio] 13.0 % Normal 11.5-15.0 [facility] Comment on above: Order Comment: Speci men Type: BLOOD SPECIMEN Ordering Facility: [facility] Address: [address] [place] [address] Performed By: #### 2 4323-8, 3083-04 #### [facility] CLIA [id number] [address] [place] [address] [place] Hematocrit (Bld) [Volume fraction] 32.7 % Low 36.0-46.0 [facility] Comment on above: Order Comment: Speci men Type: BLOOD SPECIMEN Ordering Facility: [facility] Address: [address] [place], [place] [address] Performed By: #### 2 4323-8, 3083-04 #### [facility] CLIA [id number] [address] [place] [address] [place] Hemoglobin (Bld) [Mass/Vol] 11.0 g/dL Low 11.5-15.5 [facility] Comment on above: Order Comment: Speci men Type: BLOOD SPECIMEN Ordering Facility: [facility] Address: [address] [place] [address] Performed By: #### 2 4323-8, 3083-04 #### [facility] CLIA [id number] [address] [place] [address] [place] Immature granulocytes (Bld) [#/Vol] 0.08 10*3/uL Normal <0.10 [facility] Comment on above: Order Comment: Speci men Type: BLOOD SPECIMEN Ordering Facility: [facility] Address: [address] [place] [address] Performed By: #### 2 4323-8, 3083-04 #### [facility] CLIA [id number] [address] [place] [address] [place] Immature granulocytes/100 WBC (Bld) 0.7 % Normal [facility] Comment on above: Order Comment: Speci men Type: BLOOD SPECIMEN Ordering Facility: [facility] Address: [address] [place] [address] Performed By: #### 2 4323-8, 3083-04 #### [facility] CLIA [id number] [address] [place] [address] [place] Lymphocytes (Bld) [#/Vol] 2.15 10*3/uL Normal 1.00-4.00 [facility] Comment on above: Order Comment: Speci men Type: BLOOD SPECIMEN Ordering Facility: [facility] Address: [address] [place] [address] Performed By: #### 2 4323-8, 3083-04 #### [facility] CLIA [id number] [address] [place] [address] [place] Lymphocytes/100 WBC (Bld) 17.7 % Normal [facility] Comment on above: Order Comment: Speci men Type: BLOOD SPECIMEN Ordering Facility: [facility] Address: [address] [place] [address] Performed By: #### 2 4328, 3083-04 #### [facility] CLIA [id number] [address] [place] [address] [place] MCH (RBC) [Entitic mass] 30.6 pg Normal 26.0-34.0 [facility] Comment on above: Order Comment: Speci men Type: BLOOD SPECIMEN Ordering Facility: [facility] Address: [address] [place] [address] Performed By: #### 2 432-8, 3083-04 #### [facility] CLIA [id number] [address] [place] [address] [place] MCHC (RBC) [Mass/Vol] 33.6 g/dL Normal 30.5-36.0 [facility] Comment on above: Order Comment: Speci men Type: BLOOD SPECIMEN Ordering Facility: [facility] Address: [address] [place] [address] Performed By: #### 2 4328, 3083-04 #### [facility] CLIA [id number] [address] [place] [address] [place] MCV (RBC) [Entitic vol] 90.8 fL Normal 80.0-100.0 C [facility] Comment on above: Order Comment: Speci men Type: BLOOD SPECIMEN Ordering Facility: [facility] Address: [address] [place] [address] Performed By: #### 2 4328, 3083-04 #### [facility] CLIA [id number] [address] [place] [address] [place] Monocytes (Bld) [#/Vol] 0.69 10*3/uL Normal <0.87 [facility] Comment on above: Order Comment: Speci men Type: BLOOD SPECIMEN Ordering Facility: [facility] Address: [address] [place] [address] Performed By: #### 2 4323-8, 3083-04 #### [facility] CLIA [id number] [address] [place] [address] [place] Monocytes/100 WBC (Bld) 5.7 % Normal [facility] Comment on above: Order Comment: Speci men Type: BLOOD SPECIMEN Ordering Facility: [facility] Address: [address] [place] [address] Performed By: #### 2 4323-8, 308-1 #### [facility] CLIA [id number] [address] [place] [address] [place] Neutrophils (Bld) [#/Vol] 9.16 10*3/uL High 1.45-7.50 [facility] Comment on above: Order Comment: Speci men Type: BLOOD SPECIMEN Ordering Facility: [facility] Address: [address] [place] [address] Performed By: #### 2 4323-8, 3083-1 #### [facility] CLIA [id number] [address] [place] [address] [place] Neutrophils/100 WBC (Bld) 75.1 % Normal [facility] Comment on above: Order Comment: Speci men Type: BLOOD SPECIMEN Ordering Facility: [facility] Address: [address] [place] [address] Performed By: #### 2 4323-8, 3083-1 #### [facility] CLIA [id number] [address] [place] [address] [place] Nucleated RBC (Bld) [#/Vol] 10*3/uL Normal <0.01 [facility] Comment on above: Order Comment: Speci men Type: BLOOD SPECIMEN Ordering Facility: [facility] Address: [address] [place] [address] Performed By: #### 2 4323-8, 3084-1 #### [facility] CLIA [id number] [address] [place] [address] [place] Nucleated RBC/100 WBC (Bld) [Ratio] 0.0 /100 WBC Normal [facility] Comment on above: Order Comment: Speci men Type: BLOOD SPECIMEN Ordering Facility: [facility] Address: [address] [place] [address] Performed By: #### 2 4323-8, 3083- #### [facility] CLIA [id number] [address] [place] [address] [place] Platelet mean volume (Bld) [Entitic vol] 11.1 fL Normal 9.0-12.7 [facility] Comment on above: Order Comment: Speci men Type: BLOOD SPECIMEN Ordering Facility: [facility] Address: [address] [place] [address] Performed By: #### 2 4323-8, 3083- #### [facility] CLIA [id number] [address] [place] [address] [place] Platelets (Bld) [#/Vol] 223 10*3/uL Normal 150-400 [facility] Comment on above: Order Comment: Speci men Type: BLOOD SPECIMEN Ordering Facility: [facility] Address: [address] [place] [address] Performed By: #### 2 4323-8, 3083- #### [facility] CLIA [id number] [address] [place] [address] [place] RBC (Bld) [#/Vol] 3.60 10*6/uL Low 3.90-5.20 [facility] Comment on above: Order Comment: Speci men Type: BLOOD SPECIMEN Ordering Facility: [facility] Address: [address] [place] [address] Performed By: #### 2 4323-8, 3083-1 #### [facility] CLIA [id number] [address] [place] [address] [place] WBC (Bld) [#/Vol] 12.18 10*3/uL High 3.70-11.00 [facility] Comment on above: Order Comment: Anat ahmadi Type: BLOOD SPECIMEN Ordering Facility: [facility] Address: [address], [place] [address] Performed By: #### 2 4323-8, 3084-1 #### [facility] CLIA [id number] [address] [place] [address] [place] Examination level ultrasound on 11-26-[address] [facility] Radiology Study observation (narrative) [facility] Bacteria Ur Culton Bacteria identified Cx Nom [...] , Intermediate >32 , Resistant >64 Abnormal [facility] Comment on above: Performed By: #### 6 30-4 ####[facility] LABCLIA [id number] [address] [facility] Demario 10-29-2024 DIMITRIOS Telephone (OBGYWM) HILLARY FRAIRE ([id number]) 1990 F Date Time Provider Department 10/29/24 KELLY BALTAZAR During your visit today, we recorded the following information about you: Karina Severino RN 10/29/2024 10:35 AM Signed Breast pump order received from [address] [place] [address] Way. To SW to sign. HAL Young [...] Status:Closed by STACI HO on 10/29/24 Normal [facility] Bacteria Ur Culton Bacteria identified Cx [...] , Intermediate >32 , Resistant >64 Abnormal [facility] Comment on above: Performed By: #### 6 30-4 ####[facility] LABCLIA [id number] [facility] [place] [address] [place] CBC W Auto Differential pane l (Bld)on 10-25-2024 Basophils (Bld) [#/Vol] 10*3/uL Normal <0.11 [facility] Comment on above: Order Comment: Speci men Type: BLOOD SPECIMEN Ordering Facility: [facility] Address: [address] [place] [address] Performed By: #### 2 4323-8, 3083- #### [facility] CLIA [id number] [address] [place] [address] [place] Basophils/100 WBC (Bld) 0.2 % Normal [facility] Comment on above: Order Comment: Speci men Type: BLOOD SPECIMEN Ordering Facility: [facility] Address: [address] [place] [address] Performed By: #### 2 4323-8, 3083- #### [facility] CLIA [id number] [address] [place] [address] [place] Differential cell count method Nom (Bld) Auto Normal [facility] Comment on above: Order Comment: Speci men Type: BLOOD SPECIMEN Ordering Facility: [facility] Address: [address] [place] [address] Performed By: #### 2 4323-8, 3083- #### [facility] CLIA [id number] [address] [place] [address] [place] Eosinophils (Bld) [#/Vol] 0.05 10*3/uL Normal <0.46 [facility] Comment on above: Order Comment: Speci men Type: BLOOD SPECIMEN Ordering Facility: [facility] Address: [address] [place] [address] Performed By: #### 2 4323-8, 3083- #### [facility] CLIA [id number] [address] [place] [address] [place] Eosinophils/100 WBC (Bld) 0.4 % Normal [facility] Comment on above: Order Comment: Speci men Type: BLOOD SPECIMEN Ordering Facility: [facility] Address: [address] [place] [address] Performed By: #### 2 4323-8, 3083-04 #### [facility] CLIA [id number] [address] [place] [address] [place] Erythrocyte distribution width (RBC) [Ratio] 12.7 % Normal 11.5-15.0 [facility] Comment on above: Order Comment: Speci men Type: BLOOD SPECIMEN Ordering Facility: [facility] Address: [address] [place] [address] Performed By: #### 2 4323-8, 3083-04 #### [facility] CLIA [id number] [address] [place] [address] [place] Hematocrit (Bld) [Volume fraction] 32.0 % Low 36.0-46.0 [facility] Comment on above: Order Comment: Speci men Type: BLOOD SPECIMEN Ordering Facility: [facility] Address: [address] [place] [address] Performed By: #### 2 4323-8, 3083-04 #### [facility] CLIA [id number] [address] [place] [address] [place] Hemoglobin (Bld) [Mass/Vol] 10.8 g/dL Low 11.5-15.5 [facility] Comment on above: Order Comment: Speci men Type: BLOOD SPECIMEN Ordering Facility: [facility] Address: [address] [place] [address] Performed By: #### 2 4323-8, 3083- #### [facility] CLIA [id number] [address] [place] [address] [place] Immature granulocytes (Bld) [#/Vol] 0.06 10*3/uL Normal <0.10 [facility] Comment on above: Order Comment: Speci men Type: BLOOD SPECIMEN Ordering Facility: [facility] Address: [address] [place] [address] Performed By: #### 2 4323-8, 3083- #### [facility] CLIA [id number] [address] [place] [address] [place] Immature granulocytes/100 WBC (Bld) 0.5 % Normal [facility] Comment on above: Order Comment: Speci men Type: BLOOD SPECIMEN Ordering Facility: [facility] Address: [address] [place] [address] Performed By: #### 2 4323-8, 3083-04 #### [facility] CLIA [id number] [address] [place] [address] [place] Lymphocytes (Bld) [#/Vol] 2.11 10*3/uL Normal 1.00-4.00 [facility] Comment on above: Order Comment: Speci men Type: BLOOD SPECIMEN Ordering Facility: [facility] Address: [address] [place] [address] Performed By: #### 2 4323-8, 3083-04 #### [facility] CLIA [id number] [address] [place] [address] [place] Lymphocytes/100 WBC (Bld) 17.1 % Normal [facility] Comment on above: Order Comment: Speci men Type: BLOOD SPECIMEN Ordering Facility: [facility] Address: [address] [place] [address] Performed By: #### 2 4323-8, 3083- #### [facility] CLIA [id number] [address] [place] [address] [place] MCH (RBC) [Entitic mass] 30.3 pg Normal 26.0-34.0 [facility] Comment on above: Order Comment: Speci men Type: BLOOD SPECIMEN Ordering Facility: [facility] Address: [address] [place] [address] Performed By: #### 2 4323-8, 3083-04 #### [facility] CLIA [id number] [address] [place] [address] [place] MCHC (RBC) [Mass/Vol] 33.8 g/dL Normal 30.5-36.0 [facility] Comment on above: Order Comment: Speci men Type: BLOOD SPECIMEN Ordering Facility: [facility] Address: [address] [place] [address] Performed By: #### 2 4323-8, 3083-04 #### [facility] CLIA [id number] [address] [place] [address] [place] MCV (RBC) [Entitic vol] 89.9 fL Normal 80.0-100.0 C [facility] Comment on above: Order Comment: Speci men Type: BLOOD SPECIMEN Ordering Facility: [facility] Address: [address] [place] [address] Performed By: #### 2 4323-8, 3083-04 #### [facility] CLIA [id number] [address] [place] [address] [place] Monocytes (Bld) [#/Vol] 0.59 10*3/uL Normal <0.87 [facility] Comment on above: Order Comment: Speci men Type: BLOOD SPECIMEN Ordering Facility: [facility] Address: [address] [place] [address] Performed By: #### 2 4323-8, 3083-04 #### [facility] CLIA [id number] [address] [place] [address] [place] Monocytes/100 WBC (Bld) 4.8 % Normal C [facility] Comment on above: Order Comment: Speci men Type: BLOOD SPECIMEN Ordering Facility: [facility] Address: [address] [place] [address] Performed By: #### 2 4323-8, 3083-04 #### [facility] CLIA [id number] [address] [place] [address] [place] Neutrophils (Bld) [#/Vol] 9.50 10*3/uL High 1.45-7.50 [facility] Comment on above: Order Comment: Speci men Type: BLOOD SPECIMEN Ordering Facility: [facility] Address: [address] [place] [address] Performed By: #### 2 4323-8, 3083-04 #### [facility] CLIA [id number] [address] [place] [address] [place] Neutrophils/100 WBC (Bld) 77.0 % Normal [facility] Comment on above: Order Comment: Speci men Type: BLOOD SPECIMEN Ordering Facility: [facility] Address: [address] [place] [address] Performed By: #### 2 4323-8, 3083-04 #### [facility] CLIA [id number] [address] [place] [address] [place] Nucleated RBC (Bld) [#/Vol] 10*3/uL Normal <0.01 [facility] Comment on above: Order Comment: Speci men Type: BLOOD SPECIMEN Ordering Facility: [facility] Address: [address] [place] [address] Performed By: #### 2 4323-8, 3083-04 #### [facility] CLIA [id number] [address] [place] [address] [place] Nucleated RBC/100 WBC (Bld) [Ratio] 0.0 /100 WBC Normal [facility] Comment on above: Order Comment: Speci men Type: BLOOD SPECIMEN Ordering Facility: [facility] Address: [address] [place] [address] Performed By: #### 2 4323-8, 3083- #### [facility] CLIA [id number] [address] [place] [address] [place] Platelet mean volume (Bld) [Entitic vol] 11.5 fL Normal 9.0-12.7 [facility] Comment on above: Order Comment: Speci men Type: BLOOD SPECIMEN Ordering Facility: [facility] Address: [address] [place], [place] [address] Performed By: #### 2 4323-8, 3083- #### [facility] CLIA [id number] [address] [place] [address] [place] Platelets (Bld) [#/Vol] 223 10*3/uL Normal 150-400 [facility] Comment on above: Order Comment: Speci men Type: BLOOD SPECIMEN Ordering Facility: [facility] Address: [address] [place], [place] [address] Performed By: #### 2 4323-8, 3083- #### [facility] CLIA [id number] [address] [place] [address] [place] RBC (Bld) [#/Vol] 3.56 10*6/uL Low 3.90-5.20 [facility] Comment on above: Order Comment: Speci men Type: BLOOD SPECIMEN Ordering Facility: [facility] Address: [address] [place] [address] Performed By: #### 2 4323-8, 3083-04 #### [facility] CLIA [id number] [address] [place] [address] [place] WBC (Bld) [#/Vol] 12.33 10*3/uL High 3.70-11.00 [facility] Comment on above: Order Comment: Speci men Type: BLOOD SPECIMEN Ordering Facility: [facility] Address: [address] [place], [place] [address] Performed By: #### 2 4323-8, 3084-1 #### [facility] CLIA [id number] [address] [place] [address] [place] Examination level ultrasound on 10-25-[address] [facility] Radiology Study observation (narrative) [facility] Ferritin SerPl-mCncon 2024 Ferritin [Mass/Vol] 31.2 ng/mL Normal 14.7-205.1 [facility] Comment on above: Order Comment: Speci men Type: BLOOD SPECIMENOrdering Facility: [facility] Address: [address] [place] [address] Performed By: #### 5 0190-8, 2276-4 ####[facility] LABCLIA [id number] [address] [place] GESTATIONAL GLUCOSE SCREEN, 1-HOUR, 50 GRAM, NON-FASTINGon 10-25-2024 Glucose [Mass/Vol] 120 mg/dL Normal 74-134 [facility] Comment on above: Order Comment: Speci men Type: BLOOD SPECIMENOrdering Facility: [facility] Address: [address] [place] [address] Result Comment: [facility] Congress of Obstetricians and Gynecologists (Piotr/Primo) guidelines state a gestational diabetes mellitus positive screen is made, in women not previously diagnosed with overt diabetes, when the 1 hr plasma glucose level is equal to or above 140 mg/dL. The [facility] Machinist Class B and [facility] recommends a 135 mg/dL cutoff. Performed By: #### G LTGST ####[facility] MILLTOWNCLIA [id number] [place] [id number] [place] Iron and Iron binding capaci ty panelon 10-25-2024 Iron [Mass/Vol] 41 ug/dL Normal 41-186 [facility] Comment on above: Order Comment: Speci men Type: BLOOD SPECIMENOrdering Facility: [facility] Address: [address] [place] [address] Performed By: #### 5 0190-8, 6-4 ####[facility] LABIA [id number] [place] [address] [place] Iron binding capacity [Mass/Vol] 453 ug/dL High 232-386 [facility] Comment on above: Order Comment: Speci men Type: BLOOD SPECIMENOrdering Facility: [facility] Address: [address] [place] [address] Performed By: #### 5 0190-8, 2275-4 ####[facility] LABIA [id number] [place] [id number] [place] Iron/TIBC [Molar ratio] 9.1 % Low 15.0-57.0 C [facility] Comment on above: Order Comment: Speci men Type: BLOOD SPECIMENOrdering Facility: [facility] Address: [address] [place] [address] Performed By: #### 5 0190-8, 2275-4 ####[facility] LABIA [id number] [place] [address] [place] Reagin and Treponema pallidu m IgG and IgM [Interp]on 10-25-2024 T. pallidum IgG+IgM IA Ql (S) Non-Reactive Normal Nonreactive [facility] Comment on above: Order Comment: Speci men Type: BLOOD SPECIMEN Ordering Facility: [facility] Address: [address] [place] [address] Performed By: #### 2 4323-8, 3084-1 #### [facility] CLIA [id number] [address] [place] [address] [place] Reagin+T pallidum IgG+IgM Se [facility]-Impon 10-25-2024 Reagin and Treponema pallidum IgG and IgM [Interp] Cannot exclude recent Treponemal infection if specimen collected within 7-10 days after appearance of suspect lesions or 2-3 weeks after an exposure. Clinical correlation is required. Normal [facility] Comment on above: Order Comment: Speci men Type: BLOOD SPECIMEN Ordering Facility: [facility] Address: [address] [place] [address] Performed By: #### 2 4323-8, 3084-1 #### [facility] CLIA [id number] [address] [place] [address] [place] Bacteria Ur [...] , Intermediate >32 , Resistant >64 Abnormal [facility] Comment on above: Performed By: #### 6 30-4 ####[facility] LABCLIA [id number] [address] [facility] Examination level ultrasound on 09-05-2024 Indication Detailed [...] 14 oz EFW by: Hadlock (HC-AC-FL) Extended Barrel Raiser Helper 5.3 mm CM 3.5 mm 6% Nicolaides [...] normal LVOT view: normal 3-vessel view: normal 5-zpwihw-zeyjaci view: normal Heart / Thorax Situs: situs [...] Banerjee M.D. MATERNAL MEDICINE [facility] Bacteria Ur Culton 5 Bacteria identified [...] , Intermediate >32 , Resistant >64 Abnormal [facility] Comment on above: Performed By: #### 6 4 ####[facility] LABCLIA [id number] [address] [facility] Examination level ultrasound on 09-03-2024 Radiology Study observation (narrative) [facility] UA DIP, URINE (POC)on 2024 BILIRUBIN UA (POCT) Negative Negative [facility] CLARITY UA (POCT) Cloudy [facility] COLOR UA (POCT) Dark yellow [facility] GLUCOSE UA (POCT) Negative Negative mg/dL [facility] Hemoglobin Ql (U) Negative Negative [facility] Interpretation and review of laboratory results Abnormal [facility] KETONE UA (POCT) Negative Negative mg/dL [facility] LEUKOCYTES UA (POCT) Trace Abnormal Negative [facility] NITRITE UA (POCT) Positive Abnormal Negative [facility] PH UA (POCT) 7.5 4.5 - 8.[address] [facility] Protein Ql (U) Negative Negative mg/dL [facility] SPECIFIC GRAVITY UA (POCT) 1.015 1.005 - 1.[address] [facility] UROBILINOGEN UA (POCT) 2 Abnormal Normal E.U./d L [facility] Location:[facility], [address], [place], [address] [facility] POINT OF CARE [facility] Bacteria Ur Culton 5 Bacteria identified [...] , Intermediate >32 , Resistant >64 Abnormal [facility] Comment on above: Performed By: #### 6 30-4 ####[facility] LABCLIA [id number] [address] Demario 07-08-2024 CNPN Telephone (OBGYWM) HILLARY FRAIRE ([id number]) 1990 F Date Time Provider Department 07/08/24 KELLY BALTAZAR OBGIFTY During your visit today, we recorded [...] Encounter Status:Closed by KELLY BALTAZAR on 07/08/24 [facility] Bacteria Ur Culton Bacteria identified Cx [...] , Intermediate >32 , Resistant >64 Abnormal [facility] Comment on above: Performed By: #### 6 30-4 ####[facility] LABCLIA [id number] [address] STATES [facility] Examination level ultrasound on 07-05-2024 Indication First trimester anatomic survey Maternal obesity, BMI >35 Impression REMOTE READ The patient is referred for a first trimester anatomy scan including nuchal translucency measurement as clinically indicated. - Single, live, intrauterine . - [place] rump length measurement is consistent with the [...] view: normal 4-chamber view with color: normal 8-lewfhr-ocjxyit view: normal Abdominal cord insertion: normal Stomach: [...] Mcgee M.D. MATERNAL MEDICINE [facility] Radiology Study observation (narrative) [facility] Hepatic function 2000 panelO rdered By: Ashley Lemus on 07-05-2024 Albumin [Mass/Vol] 4.1 g/dL 3.9 - 4.9 g/dL [facility] ALP [Catalytic activity/Vol] 71 U/L 34 - 123 U/L [facility] ALT [Catalytic activity/Vol] 11 U/L 7 - 38 U/L [facility] AST [Catalytic activity/Vol] 8 U/L Low 13 - 35 U/L [facility] Bilirubin [Mass/Vol] 0.4 mg/dL 0.2 - 1 .3 mg/dL [facility] Bilirubin.conjugated [Mass/Vol] 0.1 mg/dL NINF - 0.3 mg/dL [facility] Interpretation and review of laboratory results Abnormal [facility] Protein [Mass/Vol] 7.3 g/dL 6.3 - 8.0 g/dL [facility] Hepatic function 2000 panelo n 07-05-2024 Albumin [Mass/Vol] 4.1 g/dL Normal 3.9-4.9 [facility] Comment on above: Order Comment: Speci men Type: BLOOD SPECIMEN Ordering Facility: [facility] Address: [address] [place] [address] Performed By: #### 2 4323-8, 3083-04 #### [facility] CLIA [id number] [address] [place] [address] [place] [facility] ALP [Catalytic activity/Vol] 71 U/L Normal 34-123 [facility] Comment on above: Order Comment: Speci men Type: BLOOD SPECIMEN Ordering Facility: [facility] Address: [address] [place] [address] Performed By: #### 2 4323-8, 3083-04 #### [facility] CLIA [id number] [address] [place] [address] [place] ALT [Catalytic activity/Vol] 11 U/L Normal 7-38 [facility] Comment on above: Order Comment: Speci men Type: BLOOD SPECIMEN Ordering Facility: [facility] Address: [address] [place] [address] Performed By: #### 2 4323-8, 3083- #### [facility] CLIA [id number] [address] [place] [address] [place] AST [Catalytic activity/Vol] 8 U/L Low 13-35 [facility] Comment on above: Order Comment: Speci men Type: BLOOD SPECIMEN Ordering Facility: [facility] Address: [address] [place] [address] Performed By: #### 2 4323-8, 3084-1 #### [facility] CLIA [id number] [address] [place] [address] [place] Bilirubin [Mass/Vol] 0.4 mg/dL Normal 0.2-1.3 [facility] Comment on above: Order Comment: Speci men Type: BLOOD SPECIMEN Ordering Facility: [facility] Address: [address] [place] [address] Performed By: #### 2 4323-8, 3083-1 #### [facility] CLIA [id number] [address] [place] [address] [place] Bilirubin.conjugated [Mass/Vol] 0.1 mg/dL Normal <0.3 [facility] Comment on above: Order Comment: Speci men Type: BLOOD SPECIMEN Ordering Facility: [facility] Address: [address] [place] [address] Performed By: #### 2 4323-8, 3083-1 #### [facility] CLIA [id number] [address] [place] [address] [place] Protein [Mass/Vol] 7.3 g/dL Normal 6.3-8.0 [facility] Comment on above: Order Comment: Speci men Type: BLOOD SPECIMEN Ordering Facility: [facility] Address: [address] [place] [address] Performed By: #### 2 4323-8, 3084-1 #### [facility] CLIA [id number] [address] [place] [address] [place] [id number] PLUSon 07-05-2024 Cell-free DNA./Cell-free DNA.total Dosage of chromosome-specific cfDNA (cfDNA) [Molar fraction] 15% Normal [facility] Comment on above: Order Comment: Speci men Type: BLOOD SPECIMENOrdering Facility: [facility] Address: [address] [place] [address] Performed By: #### M AT21 ####[employer] LABCLIA [id number] [place] [address] Chr 13+18+21+X+Y aneuploidy Dosage of chromosome-specific cfDNA Ql (cfDNA) Negative Normal [facility] Comment on above: Order Comment: Speci men Type: BLOOD SPECIMENOrdering Facility: [facility] Address: [address] [place] [address] Performed By: #### M AT21 ####[employer] LABCLIA [id number] [place] [address] Chr 21 trisomy Dosage of chromosome-specific cfDNA Ql (cfDNA) Negative Normal [facility] Comment on above: Order Comment: Speci men Type: BLOOD SPECIMENOrdering Facility: [facility] Address: [address] [place] [address] Performed By: #### M AT21 ####[employer] LABCLIA [id number] [place] [address] Chr X and Y aneuploidy risk Sequencing Ql (cfDNA) [Interp] Not detected Normal [facility] Comment on above: Order Comment: Speci men Type: BLOOD SPECIMENOrdering Facility: [facility] Address: [address] [place] [address] Result Comment: Not Detected Not Detected Performed By: #### M AT21 ####[employer] LABCLIA [id number] [place] [address] Citation Pranav (Reference lab test) Comment Normal [facility] Comment on above: Order Comment: Speci men Type: BLOOD SPECIMENOrdering Facility: [facility] Address: [address] [place] [address] Result Comment: 1. Jolly ESCALONA, et al. [place] Med. 2012;14(3):296-305. 2. Benedicto BURNETT et al. Prenat Diag. 2013;33(6):591-597. 3. Mitchell C, et al. Clin Chem. 2015 Apr;61(4):608-616. 4. Keenan ESCALONA et al. [place] Med. 2011;13(11):913-920. 5. ACOG/[facility] Practice Bulletin No. 226, Jan 2020. Performed By: #### M AT21 ####[facility] LABCLIA [id number] [place] [address] Gestational age Estimated from conception date Mariano Normal [facility] Comment on above: Order Comment: Katlini men Type: BLOOD SPECIMENOrdering Facility: [facility] Address: [address] [place] [address] Performed By: #### M AT21 ####[facility] LABCLIA [id number] [place] [address] GESTATIONALAGE AGE > OR = 9W Yes Normal [facility] Comment on above: Order Comment: Speci men Type: BLOOD SPECIMENOrdering Facility: [facility] Address: [address] [place] [address] Performed By: #### M AT21 ####[facility] LABCLIA [id number] [place] [address] Laboratory comment Pranav (Report) Comment Normal [facility] Comment on above: Order Comment: Anat ahmadi Type: BLOOD SPECIMENOrdering Facility: [facility] Address: [address] [place] [address] Result Comment: The MaterniT(R) 21 PLUS laboratory-developed test (LDT) analyzes circulating cell-free DNA from a maternal blood sample. This test is used for screening purposes and not diagnostic. Clinical correlation is recommended. Validation data on twin pregnancies is limited and the ability of this test to detect aneuploidy in higher multiple gestations has not yet been validated. Performed By: #### M AT21 ####[facility] LABCLIA [id number] [place] [address] hospital director name Nom (Provider) Comment Normal [facility] Comment on above: Order Comment: Speci men Type: BLOOD SPECIMENOrdering Facility: [facility] Address: [address] [place] [address] Result Comment: This specimen showed an expected representation of chromosome 21, 18 and 13 material. Clinical correlation is suggested. Comment Sav Atwood MD, PhD, Director, [employer] Performed By: #### M AT21 ####[facility] LABCLIA [id number] [place] [address] LIMITATIONS OF THE TEST Comment Normal [facility] Comment on above: Order Comment: Speci men Type: BLOOD SPECIMENOrdering Facility: [facility] Address: [address] [place] [address] Result Comment: Lesly arreguin the results of [...] Xaparin(R), Clexane(R) and Fragmin(R)). Performed By: #### M AT21 ####[employer] [id number] [place] [address] Monosomy X risk Dosage of chromosome-specific cfDNA Ql (Plasma cell-free+WBC DNA) [Interp] Not detected Normal [facility] Comment on above: Order Comment: Anat ahmadi Type: BLOOD SPECIMENOrdering Facility: [facility] Address: [address] [place] [address] Performed By: #### M AT21 ####[employer] AntibodiesIA [id number] [place] [address] NEGATIVE PREDICTIVE VALUE Note Normal [facility] Comment on above: Order Comment: Anat ahmadi Type: BLOOD SPECIMENOrdering Facility: [facility] Address: [address] [place] [address] Result Comment: The Negative Predictive Value (NPV) for trisomy 21, 18, and 13 is greater than 99%. The NPV for SCA and ESS cannot be calculated as SCA and ESS are only reported when an abnormality is detected. Performed By: #### M AT21 ####[employer] LABTEEspyIA [id number] [place] [address] PERFORMANCE CHARACTERISTICS Note Normal [facility] Comment on above: Order Comment: Anat ahmadi Type: BLOOD SPECIMENOrdering Facility: [facility] Address: [address] [place] [address] Result Comment: ! Sex ! Accuracy: 99.4% [...] ! ! ! * As reported in [facility] database nstd37 [https://www.ncbi.nlm.nih.gov/dbvar/studies/nstd37/ ] # [...] ## Mariano gestation only. Performed By: #### M AT21 ####[employer] LABCLIA [id number] [place] [address] POSITIVE PREDICTIVE VALUE N/A Normal [facility] Comment on above: Order Comment: Speci men Type: BLOOD SPECIMENOrdering Facility: [facility] Address: [address] [place] [address] Performed By: #### M AT21 ####[employer] LABCLIA [id number] [place] [address] Reference Lab Test Method Comment Normal [facility] Comment on above: Order Comment: Speci galdino Type: BLOOD SPECIMENOrdering Facility: [facility] Address: [address] [place] [address] Result Comment: See Notes Circulating cell-free DNA [...] chromosomes 16 and 22. Performed By: #### M AT21 ####[employer] LABCLIA [id number] [facility] [address] Service comment (Unsp spec) [Interp] Comment Normal [facility] Comment on above: Order Comment: Speci men Type: BLOOD SPECIMENOrdering Facility: [facility] Address: [facility] [place] [address] Result Comment: See Notes [employer] is a subsidiary of [employer], using the brand [employer]. This test was developed and its performance characteristics determined by [employer]. It has not been cleared or approved by the Food and Drug Administration. This laboratory is certified under the Clinical Laboratory Improvement Amendments (CLIA) as qualified to perform high complexity clinical laboratory testing and accredited by the [employer] ([employer]). If there is future clinical need for adding MaterniT GENOME testing, this specimen will be available until term. [facility] samples will not be retained beyond 60 days. [facility] patients will have to send a new sample for re-sequencing ([facility] Test Code: [id number]). Performed By: #### M AT21 ####[employer] LABCLIA [id number] [place] [address] Sex Dosage of chromosome-specific cfDNA Nom (cfDNA) Comment Normal [facility] Comment on above: Order Comment: Speci men Type: BLOOD SPECIMENOrdering Facility: [facility] Address: [address] [place] [address] Result Comment: Cons istent with Female Performed By: #### M AT21 ####[employer] LABTEEspyIA [id number] [place] [address] Test performance information Pranav (Unsp spec) Comment Normal [facility] Comment on above: Order Comment: Speci men Type: BLOOD SPECIMENOrdering Facility: [facility] Address: [address] [place] [address] Result Comment: The performance characteristics of the MaterniT(R) 21 PLUS laboratory-developed test (LDT) have been determined in a clinical validation study with women at increased risk for chromosomal aneuploidy.[1-4] Performed By: #### M AT21 ####[employer] LABCLIA [id number] [place] [address] Trisomy 13 risk Dosage of chromosome-specific cfDNA Ql (cfDNA) [Interp] Negative Normal [facility] Comment on above: Order Comment: Speci men Type: BLOOD SPECIMENOrdering Facility: [facility] Address: [address] [place] [address] Performed By: #### M AT21 ####[employer] LABTEEspyIA [id number] [place] [address] Trisomy 18 risk Dosage of chromosome-specific cfDNA Ql (Plasma cell-free+WBC DNA) [Interp] Negative Normal [facility] Comment on above: Order Comment: Speci men Type: BLOOD SPECIMENOrdering Facility: [facility] Address: [address] [place] [address] Performed By: #### M AT21 ####[employer] LABCLIA [id number] [place] [address] Bacteria Culton 5 Bacteria identified Cx Nom (U) [...] , Intermediate >32 , Resistant >64 Abnormal [facility] Comment on above: Performed By: #### 6 30-4 ####[facility] LABCLIA [id number] [address] [place] C. trachomatis+N. gonorrhoea e DNA KEVIN+probe Ql (Unsp spec)on 06-07-2024 C. trachomatis rRNA KEVIN+probe Ql (Unsp spec) Not detected Normal Not detected [facility] Comment on above: Order Comment: Speci men Type: BLOOD SPECIMEN Ordering Facility: [facility] Address: [address] [place] [address] Performed By: #### 2 4323-8, 1 #### [facility] CLIA [id number] [address] [place] [address] [place] N. gonorrhoeae rRNA KEVIN+probe Ql (Unsp spec) Not detected Normal Not detected [facility] Comment on above: Order Comment: Speci men Type: BLOOD SPECIMEN Ordering Facility: [facility] Address: [address] [place] [address] Performed By: #### 2 4323-8, 3083-1 #### [facility] CLIA [id number] [address] [place] [address] [place] CBC W Auto Differential pane l (Bld)on 06-07-2024 Basophils (Bld) [#/Vol] 10*3/uL Normal <0.11 C [facility] Comment on above: Order Comment: Speci men Type: BLOOD SPECIMEN Ordering Facility: [facility] Address: [address] [place] [address] Performed By: #### 2 4323-8, 3083-1 #### [facility] CLIA [id number] [address] [place] [address] [place] Basophils/100 WBC (Bld) 0.2 % Normal C [facility] Comment on above: Order Comment: Speci men Type: BLOOD SPECIMEN Ordering Facility: [facility] Address: [address] [place] [address] Performed By: #### 2 4323-8, 3083- #### [facility] CLIA [id number] [address] [place] [address] [place] Differential cell count method Nom (Bld) Auto Normal [facility] Comment on above: Order Comment: Speci men Type: BLOOD SPECIMEN Ordering Facility: [facility] Address: [address] [place] [address] Performed By: #### 2 4323-8, 3083- #### [facility] CLIA [id number] [address] [place] [address] [place] Eosinophils (Bld) [#/Vol] 0.08 10*3/uL Normal <0.46 [facility] Comment on above: Order Comment: Speci men Type: BLOOD SPECIMEN Ordering Facility: [facility] Address: [address] [place] [address] Performed By: #### 2 4323-8, 3083-1 #### [facility] CLIA [id number] [address] [place] [address] [place] Eosinophils/100 WBC (Bld) 0.8 % Normal [facility] Comment on above: Order Comment: Speci men Type: BLOOD SPECIMEN Ordering Facility: [facility] Address: [address] [place] [address] Performed By: #### 2 4323-8, 3083-04 #### [facility] CLIA [id number] [address] [place] [address] [place] Erythrocyte distribution width (RBC) [Ratio] 12.6 % Normal 11.5-15.0 [facility] Comment on above: Order Comment: Speci men Type: BLOOD SPECIMEN Ordering Facility: [facility] Address: [address] [place] [address] Performed By: #### 2 4323-8, 3083-04 #### [facility] CLIA [id number] [address] [place] [address] [place] Hematocrit (Bld) [Volume fraction] 36.1 % Normal 36.0-46.0 [facility] Comment on above: Order Comment: Speci men Type: BLOOD SPECIMEN Ordering Facility: [facility] Address: [address] [place] [address] Performed By: #### 2 4323-8, 3083-04 #### [facility] CLIA [id number] [address] [place] [address] [place] Hemoglobin (Bld) [Mass/Vol] 12.0 g/dL Normal 11.5-15.5 [facility] Comment on above: Order Comment: Speci men Type: BLOOD SPECIMEN Ordering Facility: [facility] Address: [address] [place] [address] Performed By: #### 2 4323-8, 3083-04 #### [facility] CLIA [id number] [address] [place] [address] [place] Immature granulocytes (Bld) [#/Vol] 0.04 10*3/uL Normal <0.10 [facility] Comment on above: Order Comment: Speci men Type: BLOOD SPECIMEN Ordering Facility: [facility] Address: [address] [place] [address] Performed By: #### 2 4323-8, 3083- #### [facility] CLIA [id number] [address] [place] [address] [place] Immature granulocytes/100 WBC (Bld) 0.4 % Normal [facility] Comment on above: Order Comment: Speci men Type: BLOOD SPECIMEN Ordering Facility: [facility] Address: [address] [place] [address] Performed By: #### 2 4323-8, 3083-04 #### [facility] CLIA [id number] [address] [place] [address] [place] Lymphocytes (Bld) [#/Vol] 2.76 10*3/uL Normal 1.00-4.00 [facility] Comment on above: Order Comment: Speci men Type: BLOOD SPECIMEN Ordering Facility: [facility] Address: [address] [place] [address] Performed By: #### 2 4323-8, 3083-04 #### [facility] CLIA [id number] [address] [place] [address] [place] Lymphocytes/100 WBC (Bld) 26.6 % Normal [facility] Comment on above: Order Comment: Speci men Type: BLOOD SPECIMEN Ordering Facility: [facility] Address: [address] [place] [address] Performed By: #### 2 4323-8, 3083-04 #### [facility] CLIA [id number] [address] [place] [address] [place] MCH (RBC) [Entitic mass] 29.3 pg Normal 26.0-34.0 [facility] Comment on above: Order Comment: Speci men Type: BLOOD SPECIMEN Ordering Facility: [facility] Address: [address] [place] [address] Performed By: #### 2 4323-8, 3083-04 #### [facility] CLIA [id number] [address] [place] [address] [place] MCHC (RBC) [Mass/Vol] 33.2 g/dL Normal 30.5-36.0 [facility] Comment on above: Order Comment: Speci men Type: BLOOD SPECIMEN Ordering Facility: [facility] Address: [address] [place] [address] Performed By: #### 2 432-8, 3083-04 #### [facility] CLIA [id number] [address] [place] [address] [place] MCV (RBC) [Entitic vol] 88.0 fL Normal 80.0-100.0 C [facility] Comment on above: Order Comment: Speci men Type: BLOOD SPECIMEN Ordering Facility: [facility] Address: [address] [place] [address] Performed By: #### 2 432-8, 3083-04 #### [facility] CLIA [id number] [address] [place] [address] [place] Monocytes (Bld) [#/Vol] 0.55 10*3/uL Normal <0.87 [facility] Comment on above: Order Comment: Speci men Type: BLOOD SPECIMEN Ordering Facility: [facility] Address: [address] [place] [address] Performed By: #### 2 432-8, 3083-04 #### [facility] CLIA [id number] [address] [place] [address] [place] Monocytes/100 WBC (Bld) 5.3 % Normal C [facility] Comment on above: Order Comment: Speci men Type: BLOOD SPECIMEN Ordering Facility: [facility] Address: [address] [place] [address] Performed By: #### 2 4323-8, 3083-04 #### [facility] CLIA [id number] [address] [place] [address] [place] Neutrophils (Bld) [#/Vol] 6.91 10*3/uL Normal 1.45-7.50 [facility] Comment on above: Order Comment: Speci men Type: BLOOD SPECIMEN Ordering Facility: [facility] Address: [address] [place] [address] Performed By: #### 2 4323-8, 3083-1 #### [facility] CLIA [id number] [address] [place] [address] [place] Neutrophils/100 WBC (Bld) 66.7 % Normal [facility] Comment on above: Order Comment: Speci men Type: BLOOD SPECIMEN Ordering Facility: [facility] Address: [address] [place] [address] Performed By: #### 2 4323-8, 3083-1 #### [facility] CLIA [id number] [address] [place] [address] [place] Nucleated RBC (Bld) [#/Vol] 10*3/uL Normal <0.01 [facility] Comment on above: Order Comment: Speci men Type: BLOOD SPECIMEN Ordering Facility: [facility] Address: [address] [place] [address] Performed By: #### 2 4323-8, 1 #### [facility] CLIA [id number] [address] [place] [address] [place] Nucleated RBC/100 WBC (Bld) [Ratio] 0.0 /100 WBC Normal [facility] Comment on above: Order Comment: Speci men Type: BLOOD SPECIMEN Ordering Facility: [facility] Address: [address] [place] [address] Performed By: #### 2 4323-8, 308-1 #### [facility] CLIA [id number] [address] [place] [address] [place] Platelet mean volume (Bld) [Entitic vol] 11.3 fL Normal 9.0-12.7 [facility] Comment on above: Order Comment: Speci men Type: BLOOD SPECIMEN Ordering Facility: [facility] Address: [address] [place] [address] Performed By: #### 2 4323-8, 308-1 #### [facility] CLIA [id number] [address] [place] [address] [place] Platelets (Bld) [#/Vol] 246 10*3/uL Normal 150-400 [facility] Comment on above: Order Comment: Speci men Type: BLOOD SPECIMEN Ordering Facility: [facility] Address: [address] [place], [place] [address] Performed By: #### 2 4323-8, 3083-1 #### [facility] CLIA [id number] [address] [place] [address] [place] RBC (Bld) [#/Vol] 4.10 10*6/uL Normal 3.90-5.20 [facility] Comment on above: Order Comment: Speci men Type: BLOOD SPECIMEN Ordering Facility: [facility] Address: [address] [place] [address] Performed By: #### 2 4323-8, 3083-1 #### [facility] CLIA [id number] [address] [place], [place] [address] [place] WBC (Bld) [#/Vol] 10.36 10*3/uL Normal 3.70-11.00 [facility] Comment on above: Order Comment: Speci men Type: BLOOD SPECIMEN Ordering Facility: [facility] Address: [address] [place] [address] Performed By: #### 2 4323-8, 3084-1 #### [facility] CLIA [id number] [address] [place] [address] [place] Comprehensive metabolic 2000 panelon 06-07-2024 Albumin [Mass/Vol] 4.1 g/dL Normal 3.9-4.9 [facility] Comment on above: Order Comment: Speci men Type: BLOOD SPECIMENOrdering Facility: [facility] [facility] Address: [address] [place] [address] Performed By: #### 2 4323-8 ####[facility]ORATORYCLIA [id number] [place] [address] [place] ALP [Catalytic activity/Vol] 70 U/L Normal 34-123 [facility] Comment on above: Order Comment: Speci men Type: BLOOD SPECIMENOrdering Facility: [facility] Address: [address] [place] [address] Performed By: #### 2 4323-8 ####[facility]ORATORYCLIA [id number] [place] [address] [place] ALT With P-5'-P [Catalytic activity/Vol] 56 U/L High 7-38 [facility] Comment on above: Order Comment: Speci men Type: BLOOD SPECIMENOrdering Facility: [facility] Address: [address] [place] [address] Performed By: #### 2 4323-8 ####[facility]ORATORYCLIA [id number] [place] [address] [place] Anion gap [Moles/Vol] 10 mmol/L Normal 8-15 [facility] Comment on above: Order Comment: Speci men Type: BLOOD SPECIMENOrdering Facility: [facility] Address: [address] [place] [address] Performed By: #### 2 4323-8 ####[facility]ORATORYCLIA [id number] [place] [address] [place] AST With P-5'-P [Catalytic activity/Vol] 30 U/L Normal 13-35 [facility] Comment on above: Order Comment: Speci men Type: BLOOD SPECIMENOrdering Facility: [facility] Address: [address] [place] [address] Performed By: #### 2 4323-8 ####[facility]ORATORYCLIA [id number] [place] [id number] [place] Bilirubin [Mass/Vol] 0.4 mg/dL Normal 0.2-1.3 [facility] Comment on above: Order Comment: Speci men Type: BLOOD SPECIMENOrdering Facility: [facility] Address: [address] [place] [address] Performed By: #### 2 4323-8 ####[facility]ATORYCLIA [id number] [place] [address] [place] Calcium [Mass/Vol] 9.2 mg/dL Normal 8.5-10.2 [facility] Comment on above: Order Comment: Speci men Type: BLOOD SPECIMENOrdering Facility: [facility] Address: [address] [place] [address] Performed By: #### 2 4323-8 ####[facility]ORATORYCLIA [id number] [place] [address] [place] Chloride [Moles/Vol] 101 mmol/L Normal 98-107 [facility] Comment on above: Order Comment: Speci men Type: BLOOD SPECIMENOrdering Facility: [facility] Address: [address] [place] [address] Performed By: #### 2 4323-8 ####[facility]ORATORYCLIA [id number] [place] [id number] [place] CO2 [Moles/Vol] 23 mmol/L Normal 22-30 [facility] Comment on above: Order Comment: Speci men Type: BLOOD SPECIMENOrdering Facility: [facility] Address: [address] [place] [address] Performed By: #### 2 4323-8 ####[facility]ORYCLIA [id number] [place] [address] [place] Creatinine [Mass/Vol] 0.79 mg/dL Normal 0.58-0.96 [facility] Comment on above: Order Comment: Speci men Type: BLOOD SPECIMENOrdering Facility: [facility] Address: [address] [place] [address] Performed By: #### 2 4323-8 ####[facility] [id number] [place] [id number] [place] [facility] Creatinine and Glomerular filtration rate.predicted panel (S/P/Bld) 101 mL/min/1.73m??? Normal >=60 [facility] Comment on above: Order Comment: Aant ahmadi Type: BLOOD SPECIMENOrdering Facility: [facility] Address: [address] [place] [address] Result Comment: Jelly mated Glomerular Filtration Rate [...] actual GFR. Performed By: #### 2 4323-8 ####[facility] [id number] [place] [address] [place] Glucose [Mass/Vol] 114 mg/dL High 74-99 [facility] Comment on above: Order Comment: Anat ahmadi Type: BLOOD SPECIMENOrdering Facility: [facility] Address: [address] [place] [address] Result Comment: The [place] Diabetes Association (ADA) provides guidance for cutoff [...] Standards of Medical Care in Diabetes 2016, [place] Diabetes Association. Diabetes Care. 2016.39(Suppl 1). Performed By: #### 2 4323-8 ####[facility] LABORATORYIA [id number] [place] [id number] [place] Potassium [Moles/Vol] 3.9 mmol/L Normal 3.7-5.1 [facility] Comment on above: Order Comment: Speci men Type: BLOOD SPECIMENOrdering Facility: [facility] Address: [address] [place] [address] Performed By: #### 2 4323-8 ####[facility] LABORATORYCLIA [id number] [place] [address] [place] Protein [Mass/Vol] 7.2 g/dL Normal 6.3-8.0 [facility] Comment on above: Order Comment: Speci men Type: BLOOD SPECIMENOrdering Facility: [facility] Address: [address] [place] [address] Performed By: #### 2 4323-8 ####[facility] LABORATORYCLIA [id number] [place] [address] [place] Sodium [Moles/Vol] 134 mmol/L Low 136-144 [facility] Comment on above: Order Comment: Speci men Type: BLOOD SPECIMENOrdering Facility: [facility] Address: [address] [place] [address] Performed By: #### 2 4323-8 ####[facility] LABORATORYCLIA [id number] [place] [address] [place] Urea nitrogen [Mass/Vol] 14 mg/dL Normal 7-21 [facility] Comment on above: Order Comment: Speci men Type: BLOOD SPECIMENOrdering Facility: [facility] Address: [address] [place] [address] Performed By: #### 2 4323-8 ####[facility]ORATORYCLIA [id number] [place] [address] [place] HBV surface Ag Ser Qlon 03-0 HBV surface Ag Ql (S) Negative Normal Negative [facility] Comment on above: Order Comment: Speci men Type: BLOOD SPECIMEN [facility]: [facility] Address: [address] [place] [address] Performed By: #### 2 4323-8, 3084-1 #### [facility] CLIA [id number] [address] [place] [address] [place] HCV Ab Ser Qlon 06-07-2024 HCV Ab Ql (S) Negative Normal Negative [facility] Comment on above: Order Comment: Speci men Type: BLOOD SPECIMEN [facility]ing [facility]: [facility] Address: [address] [place] [address] Result Comment: The result suggests no evidence of active infection with Hepatitis C virus. Should recent infection be suspected, repeat testing may be considered 4-6 weeks after this draw. Performed By: #### 2 4323-8, 3084-1 #### [facility] CLIA [id number] [address] [place] [address] [place] HIGH RISK HUMAN PAPILLOMA RICKY (HPV), PCR FOR DETECTION AND GENOTYPINGon 06-07-2024 HPV 16 Ag Ql (Unsp spec) Not detected Normal Not detec terry [facility] Comment on above: Order Comment: Speci men Type: FLUID SPECIMENOrdering Facility: [facility] Address: [address] [place] [address] Performed By: #### H PVHRT ####[facility] [id number] [place] [address] [place] HPV 18 Ag Ql (Unsp spec) Not detected Normal Not detec terry [facility] Comment on above: Order Comment: Speci men Type: FLUID SPECIMENOrdering Facility: [facility] Address: [address] [place] [address] Performed By: #### H PVHRT ####[facility] LABIA [id number] [place] [address] [place] HPV 31+33+35+39+45+51+52+56+ 58+59+66+68 DNA KEVIN+probe Ql (Cvx) Not detected Normal Not detected [facility] Comment on above: Order Comment: Speci men Type: FLUID SPECIMENOrdering Facility: [facility] Address: [address] [place] [address] Result Comment: High Risk HPV Other Type includes HPV types 31, 33, 35, 39, 45, 51, 52, 56, 58, 59, 66 and 68. Performed By: #### H PVHRT ####[facility] LABCLIA [id number] [place] [address] [place] HIV 1+2 Ab IA Qlon 5 HIV 1 and 2 Ab IA.rapid Nom (S/P/Bld) Normal [facility] Comment on above: Order Comment: Speci men Type: BLOOD SPECIMEN [facility]ing [facility]: [facility] Address: [address] [place] [address] Result Comment: Test not indicated. Performed By: #### 2 4323-8, 3084-1 #### [facility] CLIA [id number] [address] [place] [address] [place] HIV 1+2 Ab+HIV1 p24 Ag IA Ql Non-Reactive Normal Nonreactive [facility] Comment on above: Order Comment: Speci [facility] Type: BLOOD SPECIMEN Ordering Facility: [facility] Address: [address] [place] [address] Performed By: #### 2 4323-8, 3083-1 #### [facility] CLIA [id number] [address] [place] [address] [place] HIV immunoassay testing algorithm interpretation (S/P/Bld) [Interp] Normal [facility] Comment on above: Order Comment: Speci men Type: BLOOD SPECIMEN Ordering Facility: [facility] Address: [address] [place] [address] Result Comment: No e vidence of HIV-1 or HIV-2 infection. Should recent infection be suspected, repeat testing may be considered 2-3 weeks after this draw. Yell Rev. Code 3701.243(E): This information has been [...] test results or diagnoses. Performed By: #### 2 4323-8, 3084-1 #### [facility] CLIA [id number] [address] [place] [id number] [place] HbA1c (Bld)on 06-07-2024 Average glucose Estimated from glycated hemoglobin (Bld) [Mass/Vol] 97 mg/dL Normal [facility] Comment on above: Order Comment: Speci men Type: BLOOD SPECIMENOrdering Facility: [facility] Address: [address] [place] [address] Result Comment: eAG: (Estimated average glucose) is a calculated value from HgbA1c and is title insurance sales representative of the average blood glucose level in the last 2-3 month period. Performed By: #### 5 5454-3 ####[facility] LABCLIA [id number] [address] STATES [facility] HbA1c (Bld) [Mass fraction] 5.0 % Normal 4.3-5.6 [facility] Comment on above: Order Comment: Speci men Type: BLOOD SPECIMENOrdering Facility: [facility] Address: [address] [place] [address] Result Comment: Amer [place] Diabetes Association guidelines indicate that patients with HgbA1c in the range 5.7-6.4% are at increased risk for development of diabetes, and intervention by lifestyle modification may be beneficial. HgbA1c greater or equal to 6.5% is considered diagnostic of diabetes. Performed By: #### 5 5454-3 ####[facility] LABCLIA [id number] [place] [id number] [place] PAP TESTon 06-07-2024 ADEQUACY Normal [facility] Comment on above: Order Comment: Speci men Type: FLUID SPECIMENOrdering Facility: [facility] Address: [address] [place] [address] Result Comment: Sati sfactory for interpretation. Transformation zone present Performed By: #### L [id number] ####[facility] LABCLIA [id number] [place] [id number] [place] CASE REPORT Normal [facility] Comment on above: Order Comment: Speci men Type: FLUID SPECIMENOrdering Facility: [facility] Address: [address] [place] [address] Result Comment: Gyne cologic Cytology Report Case: [id number] Authorizing Provider: Leanne Aquino APRN.WOOD BUCKER Collected: 06/07/2024 03:39 PM Ordering Location: OB/Gynecology Received: 06/07/2024 04:52 PM First Screen: Sh[place]un[place]pen, Martha, CT, ASCP Specimen: Pap Test, ThinPrep, Cervix Performed By: #### L [id number] ####[facility] LABCLIA [id number] [place] [id number] [place] CLINICAL HISTORY, CYTOLOGY, OVERHEAD DISTRIBUTION ENGINEER Routine Exam Normal [facility] Comment on above: Order Comment: Speci men Type: FLUID SPECIMENOrdering Facility: [facility] Address: [address] [place] [address] Performed By: #### L [id number] ####[facility] LABCLIA [id number] [place] [address] [place] FINAL PERFORMING LAB Normal [facility] Comment on above: Order Comment: Speci men Type: FLUID SPECIMENOrdering Facility: [facility] Address: [address] [place] [address] Result Comment: Tech nical component, admin assistant screening performed at [facility], [address] [place], [place] [id number] CLIA# [id number] Diagnostic interpretation performed at [facility], [address] [place], [place] [address] CLIA# [id number] Nursing Home Administrator: Alvarez Vargas M.D. Performed By: #### L [id number] ####[facility] LABCLIA [id number] [place] [id number] [place] INTERPRETATION, CYTOLOGY, OVERHEAD DISTRIBUTION ENGINEER Normal [facility] Comment on above: Order Comment: Speci men Type: FLUID SPECIMENOrdering Facility: [facility] Address: [address] [place] [address] Result Comment: Nega tive for intraepithelial lesion or malignancy. at 1429 EDT Performed By: #### L [id number] ####[facility] LABCLIA [id number] [place] [id number] [place] LMP 04/09/2024 Normal [facility] Comment on above: Order Comment: Speci men Type: FLUID SPECIMENOrdering Facility: [facility] Address: [address] [place] [address] Performed By: #### L [id number] ####[facility] LABCLIA [id number] [place] [id number] [place] PAP DISCLAIMER COMMENT The Pap Smear is a screening test for cervical cancer. False negative results occur with all screening tests, emphasizing the need for rescreening at recommended intervals, and clinical correlation. Normal [facility] Comment on above: Order Comment: Speci men Type: FLUID SPECIMENOrdering Facility: [facility] Address: [address] [place] [address] Performed By: #### L [id number] ####[facility] LABCLIA [id number] [place] [id number] [place] PAP AUTOMATION TESTER COMMENT This specimen has been analyzed by the ThinPrep Imaging System, an automated imaging and review system, which assists the laboratory in evaluating cells on ThinPrep Pap tests. Following automated imaging, selected doherty from every slide are reviewed by a admin assistant. Normal [facility] Comment on above: Order Comment: Speci men Type: FLUID SPECIMENOrdering Facility: [facility] Address: [address] [place] [address] Performed By: #### L [id number] ####[facility] LABCLIA [id number] [address] STATES [facility] POC SIGNAL MAINTAINER HELPER ULTRASOUNDon 06-08-19 Indication Confirmation of intrauterine . [...] Aquino CNP MATERNAL MEDICINE [facility] Radiology Study observation (narrative) Stanis[facility] Prot/Creat Uron 06-07-2024 Protein/Creatinine (U) [Mass ratio] 0.06 mg/mg Normal <0.15 [facility] Comment on above: Order Comment: Speci men Type: URINE SPECIMENOrdering Facility: [facility] Address: [address] [place] [address] Result Comment: Adul t Proteinuria Categories: <0.15 mg/mg is considered normal to mildly increased 0.15 - 0.50 mg/mg is considered moderately increased >0.50 mg/mg is considered severely increased KDIGO. (2013). KDIGO 2012 Clinical Practice Guideline for the Evaluation and Management of Chronic Kidney Disease. Official Journal of the International Society of Nephrology, 3(1), 1-150. Performed By: #### 2 890-2 ####[facility] LABORATORYIA [id number] [place] [address] [place] Protein/Creatinine (U) [Mass ratio]on 06-07-2024 Creatinine (U) [Mass/Vol] 155.0 mg/dL Normal 42.2-237.9 [facility] Comment on above: Order Comment: Speci men Type: URINE SPECIMENOrdering Facility: [facility] Address: [address] [place] [address] Performed By: #### 2 890-2 ####[facility] [id number] [place] [id number] [place] Protein (U) [Mass/Vol] 10 mg/dL Normal 0-20 [facility] Comment on above: Order Comment: Speci men Type: URINE SPECIMENOrdering Facility: [facility] Address: [address] [place] [address] Performed By: #### 2 890-2 ####[facility] [id number] [place] [id number] [place] RUBELLA IGG ANTIBODYon 06-07 RUBELLA IGG AB, QUAL Positive Normal Positive [facility] Comment on above: Order Comment: Speci men Type: BLOOD SPECIMEN Ordering Facility: [facility] Address: [address] [place] [address] Result Comment: The result suggests recent or past exposure to Rubella virus or history of Rubella vaccination. Positive result may also be seen due to presence of passively-transferred antibodies. Please correlate with patient's history. Performed By: #### 2 4323-8, 3084-1 #### [facility] CLIA [id number] [address] [place] [address] [place] Reagin and Treponema pallidu m IgG and IgM [Interp]on 06-07-2024 T. pallidum IgG+IgM IA Ql (S) Non-Reactive Normal Nonreactive [facility] Comment on above: Order Comment: Speci men Type: BLOOD SPECIMEN Order[facility]: [facility] Address: [address] [place] [address] Performed By: #### 2 4323-8, 3084-1 #### [facility] CLIA [id number] [address] [place] [address] [place] Reagin+T pallidum IgG+IgM Se rPl-Impon 06-07-2024 Reagin and Treponema pallidum IgG and IgM [Interp] Cannot exclude recent Treponemal infection if specimen collected within 7-10 days after appearance of suspect lesions or 2-3 weeks after an exposure. Clinical correlation is required. Normal [facility] Comment on above: Order Comment: Speci men Type: BLOOD SPECIMEN [facility]: [facility] Address: [address] [place] [address] Performed By: #### 2 4323-8, 3084-1 #### [facility] CLIA [id number] [address] [place] [address] [place] TRICHOMONAS VAGINALIS NAATon 06-07-2024 T. vaginalis DNA KEVIN+probe Ql (Unsp spec) Not detected Normal Not detected [facility] Comment on above: Order Comment: Speci men Type: BLOOD SPECIMEN [facility]: [facility] Address: [address] [place] [address] Performed By: #### 2 4323-8, 3084-1 #### [facility] CLIA [id number] [address] [place] [address] [place] TYPE + SCREEN PRENATALon ABO A Normal [facility] Comment on above: Order Comment: Speci men Type: BLOOD SPECIMENOrdering Facility: [facility] Address: [address] [place] [address] Performed By: #### T SPN ####[facility] BANKCLIA [id number] [place] [address] [place] Rh Nom (Bld) Positive Normal [facility] Comment on above: Order Comment: Speci men Type: BLOOD SPECIMENOrdering Facility: [facility] Address: [address] [place] [address] Performed By: #### T SPN ####[facility]LO[facility] BANKCLIA [id number] [place] [id number] [facility] TYPE AND SCREEN EXPIRATION 06/10/2024 23:59 Normal [facility] Comment on above: Order Comment: Speci men Type: BLOOD SPECIMENOrdering Facility: [facility] Address: [address] [place] [address] Performed By: #### T SPN ####[facility] BLO[facility] BANKCLIA [id number] [place] [id number] [facility] CNOVon 05-24-2024 CNOV Office Visit (OBGYWM) HILLARY FRAIRE ([id number]) 1990 F Date Time Provider Department 05/24/24 [...] Living1 SAB0 IAB0 Ectopic0 Multiple0 Live Births1 Reservations Sales Supervisor History LMP: 03/31/2023 (Exact Date), Having periods Age at Menarche: Age at First : Age at Menopause: Reservations Sales Supervisor History Comments: Sexual Activity: Yes; Male Contraception: Pill PAST MEDICAL HISTORY Diagnosis Date #[id number] Anemia during in third trimester 11/15/2020 fracture [...] discussed with the Patient or Patient's Authorized Flat Drier. As applicable, any other physician, advance practice provider, medical student, or other health professional student that will be observing or involved in the sensitive examination for educational or training purposes was discussed with the Patient or Authorized Flat Drier. The Patient or Authorized Flat Drier has agreed to proceed with the sensitive [...] be more appropriately called evening sickness or swatz-uzggff-zf-the- day sickness. While there are the paulino [...] than expected (more content not included)... Normal [facility] UA DIP,URINE HCG (POC)on Beta HCG ( test) Ql (U) Positive Abnormal Negative [facility] Comment on above: Location:[facility], [address], [place], [address] Interpretation and review of laboratory results Abnormal [facility] Tissue Packer (POCT) Internal QC OK [facility] Location:[facility], [address], [place], [address] [facility] POINT OF CARE [facility] CBC W Auto Differential pane l (Bld)on 02-11-2022 Basophils (Bld) [#/Vol] 0.04 10*3/uL <0.11 k/uL [facility] Basophils/100 WBC (Bld) 0.5 % [facility] Differential cell count method Nom (Bld) Auto [facility] Eosinophils (Bld) [#/Vol] 0.13 10*3/uL <0.46 k/uL [facility] Eosinophils/100 WBC (Bld) 1.5 % [facility] Erythrocyte distribution width (RBC) [Ratio] 12.7 % 11.5 - 15.0 % [facility] Hematocrit (Bld) [Volume fraction] 41.0 % 36.0 - 46.0 % [facility] Hemoglobin (Bld) [Mass/Vol] 13.6 g/dL 11.5 - 15.5 g/dL [facility] Immature granulocytes (Bld) [#/Vol] <0.10 k/uL [facility] Immature granulocytes/100 WBC (Bld) 0.1 % [facility] Lymphocytes (Bld) [#/Vol] 2.58 10*3/uL 1.00 - 4.00 k/uL [facility] Lymphocytes/100 WBC (Bld) 30.6 % [facility] MCH (RBC) [Entitic mass] 29.5 pg 26.0 - 34.[address] [facility] MCHC (RBC) [Mass/Vol] 33.2 g/dL 30.5 - 36.0 g/dL [facility] MCV (RBC) [Entitic vol] 88.9 fL 80.0 - 100.[address] [facility] Monocytes (Bld) [#/Vol] 0.61 10*3/uL <0.87 k/uL [facility] Monocytes/100 WBC (Bld) 7.2 % [facility] Neutrophils (Bld) [#/Vol] 5.06 10*3/uL 1.45 - 7.50 k/uL [facility] Neutrophils/100 WBC (Bld) 60.1 % [facility] Nucleated RBC (Bld) [#/Vol] <0.01 k/uL [facility] Nucleated RBC/100 WBC (Bld) [Ratio] 0.0 /[address] [facility] Platelet mean volume (Bld) [Entitic vol] 10.9 fL 9.0 - 12.[address] [facility] Platelets (Bld) [#/Vol] 285 10*3/uL 150 - 400 k /uL [facility] RBC (Bld) [#/Vol] 4.61 10*6/uL 3.90 - 5.2 0 m/uL [facility] WBC (Bld) [#/Vol] 8.43 10*3/uL 3.70 - 11. 00 k/uL [facility] Vital Signs Date Time Vital Sign Value Performing Clinician Facility 12-21-2024 11:00-0400 Body mass index (BMI) [Ratio] 37.03 kg/m2 Adina Krueger MD Work Phone: [facility] 12-21-2024 11:00-0400 Body weight 123.83 kg Adina Krueger MD Work Phone: [facility] 12-21-2024 11:00-0400 Diastolic blood pressure 82 mm[Hg] Adina Krueger MD Work Phone: [facility] 12-21-2024 11:00-0400 Systolic blood pressure 134 mm[Hg] Adina Krueger MD Work Phone: [facility] 12-17-2024 10:14-0400 Diastolic blood pressure 70 mm[Hg] [facility] 12-17-2024 10:14-0400 Systolic blood pressure 138 mm[Hg] [facility] 12-15-2024 15:37-0400 Body mass index (BMI) [Ratio] 37.38 kg/m2 Nst Wstr Work Phone: [facility] 12-15-2024 15:37-0400 Body weight 125.01 kg Nst Wstr Work Phone: [facility] 12-15-2024 15:37-0400 Diastolic blood pressure 84 mm[Hg] Nst Wstr Work Phone: [facility] Comment on above: MELANY BP average 12-15-2024 15:37-0400 Systolic blood pressure 128 mm[Hg] Nst Wstr Work Phone: [facility] Comment on above: MELANY BP average 12-13-2024 10:21-0400 Diastolic blood pressure 80 mm[Hg] Kelly Baltazar MD Work Phone: [facility] Comment on above: bp melany average 12-13-2024 10:21-0400 Systolic blood pressure 125 mm[Hg] Kelly Baltazar MD Work Phone: [facility] Comment on above: bp melany average 12-13-2024 10:07-0400 Body mass index (BMI) [Ratio] 37.03 kg/m2 Kelly Baltazar MD Work Phone: [facility] 12-13-2024 10:07-0400 Body weight 123.83 kg Kelly Baltazar MD Work Phone: [facility] 12-08-2024 12:07-0400 Body temperature 98 [degF] Dr. Chiki Gonzales MD Work Phone: [facility] 12-08-2024 12:07-0400 Diastolic blood pressure 72 mm[Hg] Dr. Chiki Gonzales MD Work Phone: [facility] 12-08-2024 12:07-0400 Heart rate 93 /min Dr. Chiki Gonzales MD Work Phone: [facility] 12-08-2024 12:07-0400 Respiratory rate 16 /min Dr. Chiki Gonzales MD Work Phone: [facility] 12-08-2024 12:07-0400 SaO2% (BldA) [Mass fraction] 99 % Dr. Chiki Gonzales MD Work Phone: [facility] 12-08-2024 12:07-0400 Systolic blood pressure 124 mm[Hg] Dr. Chiki Gonzales MD Work Phone: [facility] 12-08-2024 06:29-0400 Body height 182.[address] Chiki Gonzales MD Work Phone: [facility] 12-08-2024 06:29-0400 Body mass index (BMI) [Ratio] 37.3 kg/m2 Dr. Chiki Gonzales MD Work Phone: [facility] 12-08-2024 06:29-0400 Body weight [address] Chiki Gonzales MD Work Phone: [facility] 12-07-2024 07:13-0400 Diastolic blood pressure 52 mm[Hg] Dr. Chiki Gonzales MD Work Phone: [facility] 12-07-2024 07:13-0400 Heart rate 98 /min Dr. Chiki Gonzales MD Work Phone: [facility] 12-07-2024 07:13-0400 Systolic blood pressure 108 mm[Hg] Dr. Chiki Gonzales MD Work Phone: [facility] 12-07-2024 07:12-0400 Body temperature 98.5 [degF] Dr. Chiki Gonzales MD Work Phone: [facility] 12-07-2024 07:12-0400 Respiratory rate 16 /min Dr. Chiki Gonzales MD Work Phone: [facility] 12-07-2024 06:10-0400 SaO2% (BldA) [Mass fraction] 91 % Dr. Chiki Gonzales MD Work Phone: [phone] [place] [address] 12-07-2024 03:57-0400 Body height 182.[address] Chiki Gonzales MD Work Phone: [facility] 12-07-2024 03:57-0400 Body mass index (BMI) [Ratio] 38 kg/m2 Dr. Chiki Gonzales MD Work Phone: [facility] 12-07-2024 03:57-0400 Body weight [address] Chiki Gonzales MD Work Phone: [facility] 12-06-2024 14:53-0400 Body temperature 97.6 [degF] Dr. Chiki Gonzales MD Work Phone: [facility] 12-06-2024 14:53-0400 Diastolic blood pressure 75 mm[Hg] Dr. Chiki Gonzales MD Work Phone: [facility] 12-06-2024 14:53-0400 Heart rate 91 /min Dr. Chiki Gonzales MD Work Phone: [facility] 12-06-2024 14:53-0400 Respiratory rate 16 /min Dr. Chiki Gonzales MD Work Phone: [facility] 12-06-2024 14:53-0400 SaO2% (BldA) [Mass fraction] 100 % Dr. Chiki Gonzales MD Work Phone: [facility] 12-06-2024 14:53-0400 Systolic blood pressure 128 mm[Hg] Dr. Chiki Gonzales MD Work Phone: [facility] 12-06-2024 07:40-0400 Body weight 127.[address] Chiki Gonzales MD Work Phone: [facility] 12-04-2024 11:37-0400 Body height 182.[address] Chiki Gonzales MD Work Phone: [facility] 12-04-2024 11:37-0400 Body mass index (BMI) [Ratio] 38 kg/m2 Dr. Chiki Gonzales MD Work Phone: [facility] 11-26-2024 10:53-0400 Body mass index (BMI) [Ratio] 37.97 kg/m2 Sheyla Moreno APRN.CNM Work Phone: [facility] 11-26-2024 10:53-0400 Body weight 127.01 kg Sheyla Moreno APRN.CNM Work Phone: [facility] 11-26-2024 10:53-0400 Diastolic blood pressure 78 mm[Hg] Sheyla Moreno APRN.CNM Work Phone: [facility] 11-26-2024 10:53-0400 Systolic blood pressure 126 mm[Hg] Sheyla Moreno APRN.CNM Work Phone: [facility] 10-25-2024 14:23-0400 Body mass index (BMI) [Ratio] 37.05 kg/m2 Kelly Baltazar MD Work Phone: [facility] 10-25-2024 14:23-0400 Body weight 123.92 kg Kelly Baltazar MD Work Phone: [facility] 10-25-2024 14:23-0400 Diastolic blood pressure 72 mm[Hg] Kelly Baltazar MD Work Phone: [facility] 10-25-2024 14:23-0400 Systolic blood pressure 120 mm[Hg] Kelly Baltazar MD Work Phone: [facility] 09-27-2024 15:15-0400 Body mass index (BMI) [Ratio] 37.16 kg/m2 Adina Krueger MD Work Phone: [facility] 09-27-2024 15:15-0400 Body weight 124.29 kg Adina Krueger MD Work Phone: [facility] 09-27-2024 15:15-0400 Diastolic blood pressure 70 mm[Hg] Adina Krueger MD Work Phone: [facility] 09-27-2024 15:15-0400 Systolic blood pressure 134 mm[Hg] Adina Krueger MD Work Phone: [facility] 09-03-2024 15:08-0400 Body mass index (BMI) [Ratio] 36.75 kg/m2 Elli Gaytan MD Work Phone: [facility] 09-03-2024 15:08-0400 Body weight 122.92 kg Elli Gaytan MD Work Phone: [facility] 09-03-2024 15:08-0400 Diastolic blood pressure 68 mm[Hg] Elli Gaytan MD Work Phone: [facility] 09-03-2024 15:08-0400 Systolic blood pressure 142 mm[Hg] Elli Gaytan MD Work Phone: [facility] 08-02-2024 15:08-0400 Body mass index (BMI) [Ratio] 37.43 kg/m2 Polly Hamilton MD Work Phone: [facility] 08-02-2024 15:08-0400 Body weight 125.19 kg Polly Hamilton MD Work Phone: [facility] 08-02-2024 15:08-0400 Diastolic blood pressure 76 mm[Hg] Polly Hamilton MD Work Phone: [facility] 08-02-2024 15:08-0400 Systolic blood pressure 138 mm[Hg] Polly Hamilton MD Work Phone: [facility] 07-05-2024 15:21-0400 Body mass index (BMI) [Ratio] 37.78 kg/m2 Kelly Baltazar MD Work Phone: [facility] 07-05-2024 15:21-0400 Body weight 126.37 kg Kelly Baltazar MD Work Phone: [facility] 07-05-2024 15:21-0400 Diastolic blood pressure 80 mm[Hg] Kelly Baltazar MD Work Phone: [facility] 07-05-2024 15:21-0400 Systolic blood pressure 120 mm[Hg] Kelly Baltazar MD Work Phone: [facility] 06-07-2024 14:40-0500 Body height 182.9 cm Leanne Kenia NETWORK OPERATIONS SPECIALIST.WOOD BUCKER Work Phone: [facility] 06-07-2024 14:40-0500 Body mass index (BMI) [Ratio] 38 kg/m2 Leanne Ahwahnee NETWORK OPERATIONS SPECIALIST.WOOD BUCKER Work Phone: [facility] 06-07-2024 14:40-0500 Body weight 127.1 kg Leanne Kenia NETWORK OPERATIONS SPECIALIST.WOOD BUCKER Work Phone: [facility] 06-07-2024 14:40-0500 Diastolic blood pressure 70 mm[Hg] Leanne Kenia NETWORK OPERATIONS SPECIALIST.WOOD BUCKER Work Phone: [facility] 06-07-2024 14:40-0500 Systolic blood pressure 118 mm[Hg] Leanne Kenia NETWORK OPERATIONS SPECIALIST.WOOD BUCKER Work Phone: [facility] 05-24-2024 08:03-0500 Body mass index (BMI) [Ratio] 38.63 kg/m2 Crissy Tom NETWORK OPERATIONS SPECIALIST.CNM Work Phone: [facility] 05-24-2024 08:03-0500 Body weight 129.18 kg Crissy Tom NETWORK OPERATIONS SPECIALIST.CNM Work Phone: [facility] 05-24-2024 08:03-0500 Diastolic blood pressure 68 mm[Hg] Crissy Tom NETWORK OPERATIONS SPECIALIST.CNM Work Phone: [facility] 05-24-2024 08:03-0500 Systolic blood pressure 124 mm[Hg] Crissy Tom NETWORK OPERATIONS SPECIALIST.CNM Work Phone: [facility] 02-11-2022 08:15-0500 Body height 182.9 cm Sheyla Moreno NETWORK OPERATIONS SPECIALIST.CNM Work Phone: [facility] 02-11-2022 08:15-0500 Body weight 118.93 kg Sheyla Moreno NETWORK OPERATIONS SPECIALIST.CNM Work Phone: [facility] 02-11-2022 08:15-0500 Diastolic blood pressure 70 mm[Hg] Sheyla Moreno NETWORK OPERATIONS SPECIALIST.CNM Work Phone: [facility] 02-11-2022 08:15-0500 Systolic blood pressure 118 mm[Hg] Sheyla Moreno NETWORK OPERATIONS SPECIALIST.CNM Work Phone: [facility] Encounters Encounter Date Encounter Type Care Provider Facility Start: 12-24-2024 [facility] Facility:[facility] Start: 12-21-2024 End: 12-21-2024 Patient encounter procedure Whi Tech 2 Steam Service Inspector [facility] Comment on above: Gestational hyperten beti, third trimester (HCC) (Primary Dx); Maternal obesity, antepartum (HCC); 36 weeks gestation of (HCC) 36 weeks gestation o f (HCC) (Primary Dx); Chronic hypertension in (HCC); Obesity affecting in third trimester, unspecified obesity type ([facility]); Calculus of kidney affecting in third trimester ([facility]) Start: 12-21-2024 End: 12-21-2024 ambulatory ELLI GAYTAN Facility:[facility] Start: 12-17-2024 End: 12-17-2024 Patient encounter procedure Miki Tech 1 Steam Service Inspector [facility] Comment on above: 36 weeks gestation o f (HCC) (Primary Dx); Chronic hypertension in (HCC); Obesity affecting in third trimester, unspecified obesity type (HCC); Antepartum anemia complicating in third trimester (HCC) Start: 12-17-2024 End: 12-17-2024 ambulatory Crissy Tom NETWORK OPERATIONS SPECIALIST.CNM Work Phone: OB/Gynecology Comment on above: This weeks visits Start: 12-15-2024 End: 12-15-2024 ambulatory CHIKI GONZALES Facility:[facility] Start: 12-15-2024 End: 12-15-2024 Patient encounter procedure Crissy Tom NETWORK OPERATIONS SPECIALIST.CNM Work Phone: OB/Gynecology Comment on above: Chronic hypertension in (HCC) (Primary Dx); Obesity affecting in third trimester, unspecified obesity type (HCC); Antepartum anemia complicating in third trimester (HCC); Generalized anxiety disorder; 35 weeks gestation of (HCC); Calculus of kidney affecting in third trimester (HCC) Start: 12-15-2024 End: 12-15-2024 ambulatory CRISSY TOM Facility:[facility] Start: 12-14-2024 End: 12-14-2024 Telephone encounter Adina Krueger MD Work Phone: OB/Gynecology Comment on above: Results; Follow Up Start: 12-13-2024 End: 12-13-2024 Patient encounter procedure Kelly Baltazar MD Work Phone: OB/Gynecology Comment on above: Antepartum anemia co mplicating in third trimester (HCC) (Primary Dx); Chronic hypertension in (HCC); Obesity affecting in third trimester, unspecified obesity type (HCC); Generalized anxiety disorder; 35 weeks gestation of (HCC); Calculus of kidney affecting in third trimester (HCC) Start: 12-13-2024 End: 12-13-2024 ambulatory KELLY BALTAZAR Facility:[facility] Start: 12-08-2024 ambulatory Madison Butler Facility:[facility] Start: 12-08-2024 Non-patient / Non-visit Dr. Latesha metz MD -[facility] Start: 12-08-2024 End: 12-08-2024 Admission to same day surgery center Dr. Latesha Elena MD -[facility] Start: 12-08-2024 End: 12-08-[address] Chiki Gonzales MD Work Phone: -[facility] Start: 12-07-2024 End: 12-07-[address] Chiki Gonzales MD Work Phone: -[facility] Start: 12-07-2024 End: 12-07-[address] Polly Hamilton MD -[facility] Work Phone: Start: 12-06-2024 Non-patient / Non-visit Dr. Latesha metz MD -[facility] Start: 12-05-2024 Non-patient / Non-visit Dr. Latesha metz MD -[facility] Start: 12-04-2024 ambulatory Sheyla Moreno Facility: [facility] Start: 12-04-2024 End: 12-06-2024 Evaluation and management of inpatient Sheyla Moreno CNM -[facility] Work Phone: Start: 12-04-2024 End: 12-04-2024 Telephone encounter Amisha Alberto MD Work Phone: Gynecology Start: 11-26-2024 End: 11-26-2024 ambulatory CHIKI GONZALES Facility:[facility] Start: 11-26-2024 End: 11-26-2024 Patient encounter procedure Whi Tech 1 Steam Service Inspector [facility] Comment on [...] Start: 11-26-2024 End: 11-26-2024 ambulatory CHIKI GONZALES Facility:[facility] Start: 11-08-2024 End: 11-08-2024 ambulatory KELLY BALTAZAR Facility:[facility] Start: 10-29-2024 End: 10-29-2024 Telephone encounter Kelly [...] 10-25-2024 Patient encounter procedure Whi Tech 1 Steam Service Inspector [facility] Comment on above: Encounter for ultras ound to check growth (HCC) (Primary Dx); Chronic hypertension in (HCC); 28 weeks gestation of (HCC) Start: 10-25-2024 End: 10-25-2024 ambulatory CHIKI GONZALES Facility:[facility] Start: 09-27-2024 End: 09-27-2024 Patient encounter procedure Adina Kruegre MD Work Phone: OB/Gynecology Comment on above: Supervision of high risk in second trimester (HCC) (Primary Dx); UTI (urinary tract infection) in , antepartum (HCC); Chronic hypertension in (HCC); 24 weeks gestation of (HCC) Start: 09-27-2024 End: 09-27-2024 ambulatory CHIKI Trip JANET Facility:[facility] Start: 09-20-2024 End: 11-20-2024 Follow-up encounter Elli Gaytan MD Work Phone: OB/Gynecology Start: 09-17-2024 End: 09-17-2024 ambulatory CHIKI GONZALES Facility:[facility] Start: 09-16-2024 End: 09-21-2024 ambulatory Elli Gaytan MD Work Phone: OB/Gynecology Comment on above: Antibiotic/ urine te st Start: 09-06-2024 End: 09-07-2024 Follow-up encounter Adina Krueger MD Work Phone: OB/Gynecology Start: 09-03-2024 End: 09-03-2024 Patient encounter procedure Elli Gaytan MD Work Phone: OB/Gynecology Comment on above: Supervision of high risk in second trimester (HCC) (Primary Dx); Chronic hypertension in (HCC); Obesity in ([facility]); History of pre-eclampsia; UTI (urinary tract infection) in , antepartum ([facility]); 21 weeks gestation of ([facility]) Encounter for anatomic survey (HCC) (Primary Dx); 8 weeks gestation of (HCC); Obesity affecting in second trimester, unspecified obesity type (HCC) Start: 09-03-2024 End: 09-03-2024 ambulatory LEANNE MILLSF Facility:[facility] Start: 08-04-2024 End: 08-04-2024 Follow-up encounter Radha Hammer APRN.CNP Work Phone: OB/Gynecology Comment on above: Results Start: 08-02-2024 End: 08-02-2024 Patient encounter procedure Polly Hamilton MD Work Phone: OB/Gynecology Comment on above: , supervisi on, high-risk, unspecified trimester (HCC) (Primary Dx); BMI 38.0-38.9,adult; 16 weeks gestation of (HCC); UTI (urinary tract infection) in , antepartum (HCC) Start: 08-02-2024 End: 08-02-2024 ambulatory CHIKI Trip GONZALES Facility:[facility] Start: 07-13-2024 End: 07-13-2024 ambulatory Leanne Barahonacalf NETWORK OPERATIONS SPECIALIST.WOOD BUCKER Work Phone: OB/Gynecology Start: 07-13-2024 End: 07-13-2024 Patient encounter procedure Leanne Kenia NETWORK OPERATIONS SPECIALIST.WOOD BUCKER Work Phone: OB/Gynecology Comment on above: August 02 appointnh nt Start: 07-08-2024 End: 07-08-2024 Telephone encounter Kelly Baltazar MD Work Phone: OB/Gynecology Comment on above: Orders Start: 07-05-2024 End: 07-05-2024 ambulatory LEANNE [place] Facility:[facility] Start: 07-05-2024 End: 07-05-2024 Patient encounter procedure Kelly Baltazar MD Work Phone: OB/Gynecology Comment on above: , supervisi on, high-risk, unspecified trimester (Primary Dx); 12 weeks gestation of ; UTI (urinary tract infection) in , antepartum; Elevated LFTs 8 weeks gestation of Start: 07-05-2024 End: 09-04-2024 Follow-up encounter Kelly aBltazar MD Work Phone: OB/Gynecology Start: 06-07-2024 End: 06-07-2024 ambulatory LEANNE [place] Facility:[facility] Start: 06-07-2024 End: 06-07-2024 Patient encounter procedure Leanne Kenia NETWORK OPERATIONS SPECIALIST.WOOD BUCKER Work Phone: OB/Gynecology Comment on above: BMI 38.0-38.9,adult (Primary Dx); with uncertain dates, antepartum; Screening for cervical cancer; Screen for STD (sexually transmitted disease); 8 weeks gestation of ; History of anemia; Generalized anxiety disorder; , supervision, high-risk, unspecified trimester Start: 06-07-2024 End: 06-09-2024 Follow-up encounter Leanne [place]nee NETWORK OPERATIONS SPECIALIST.WOOD BUCKER Work Phone: OB/Gynecology Comment on above: UTI (urinary tract i nfection) in , antepartum (Primary Dx) Start: 05-24-2024 End: 05-24-2024 ambulatory CRISSY SINGHDAVION Facility:[facility] Start: 05-24-2024 End: 05-24-2024 Patient encounter procedure Crissy Tom NETWORK OPERATIONS SPECIALIST.CARLOS Work Phone: OB/Gynecology Comment on above: Missed menses (Prima ry Dx); 6 weeks gestation of ; Spotting in early ; Obesity affecting in first trimester, unspecified obesity type; Nausea Start: 05-12-2024 End: 05-12-2024 ambulatory Sheyla Moreno APRN.CARLOS Work Phone: OB/Gynecology Comment on above: Early Start: 03-03-2023 ambulatory Sheyla Moreno APRN.CARLOS Work Phone: OB/Gynecology Comment on above: Blood Work Request Start: 01-20-2023 Refill Sheyla Moreno APRN.CNM Work Phone: OB/Gynecology Comment on above: Refill Request Start: 03-01-2022 ambulatory Sheyla Moreno APRN.CARLOS Work Phone: OB/Gynecology Comment on above: Medicine while breas tfeeding Start: 02-11-2022 ambulatory Sheyla Moreno APRN.CARLOS Work Phone: OB/Gynecology Comment on above: Question regarding T SH BLD Start: 02-11-2022 End: 02-11-2022 Patient encounter procedure Sheyla Moreno APRN.CARLOS Work Phone: OB/Gynecology Comment on above: Encounter for gyneco logical examination (general) (routine) without abnormal findings (Primary Dx); Malaise and fatigue; Encounter for surveillance of contraceptive pills Start: 02-11-2022 End: 02-11-2022 Patient encounter status Sheyla Moreno APRN.CNM Work Phone: OB/Gynecology Start: 01-28-2022 Refill Sheyla Moreno APRN.CNM Work Phone: OB/Gynecology Comment on above: Refill Request Start: 01-26-2022 Refill Sheyla Moreno APRN.CNM Work Phone: OB/Gynecology Comment on above: Refill Request Start: 01-15-2022 Refill Sheyla Josh GREGGCNM Work Phone: OB/Gynecology Comment on above: Refill Request Start: 11-14-2020 ambulatory Kelly Geiger Work Phone: OB/Gynecology Comment on above: RE: Test Result Ques tion Start: 06-08-2020 End: 07-19-2020 Patient requested procedure Sheyla Moreno CNM Work Phone: [facility] Start: 05-29-2020 End: 05-29-2020 Telephone encounter Sheyla HansonSamanthajose Moreno Work Phone: OB/Gynecology Comment on above: Care (+ pre gnancy test) Procedures Date Procedure Procedure Detail Performing Clinician Start: 12-21-2024 Urnls dip stick/tabl et rgnt non-auto w/o micrscp Adina Krueger MD Work Phone: Start: 12-21-2024 Us preg uterus after 1st trimest 1 gestation Elli Gaytan MD Work Phone: Start: 12-21-2024 Iadna streptococcus group b amplified probe tq Adina Krueger MD Work Phone: Start: 12-17-2024 biophysical pr ofile non-stress testing Elli Gaytan MD Work Phone: Start: 12-13-2024 Urnls dip stick/tabl et rgnt non-auto w/o micrscp Kelly Baltazar MD Work Phone: Start: 12-08-2024 Introduction to urin fatimah tract Dr. Chiki Gonzales MD Work Phone: Start: 12-08-2024 Fluoroscopic guidance Fely Gonzales MD Work Phone: Start: 12-07-2024 Complete ultrasound of kidneys and bladder Dr. Chiki Gonzales MD Work Phone: Start: 12-06-2024 Introduction to urin fatimah tract Dr. Chiik Gonzales MD Work Phone: Start: 12-06-2024 Fluoroscopic [...] after 1st trimest 1/1st gestation Leanne Kenia NETWORK OPERATIONS SPECIALIST.WOOD BUCKER Work Phone: Start: 07-05-2024 Us preg uterus after 1st trimest 1/1st gestation Leanne Ahwahnee NETWORK OPERATIONS SPECIALIST.WOOD BUCKER Work Phone: Start: 06-07-2024 Antibody screen ADINA KRUEGER Comment on above: Order Comment: Speci men Type: BLOOD SPECIMENOrdering Facility: [facility] Address: [address] [place] [address] Performed By: #### T SPN ####CC MAIN BLOOD BANKCLIA [id number] [address] [place] Start: 06-07-2024 Us uterus l imited 1/ fetuses Leanne Aquino NETWORK OPERATIONS SPECIALIST.WOOD BUCKER Work Phone: Start: 05-24-2024 UA DIP,URINE HCG (POC) Crissy Tom NETWORK OPERATIONS SPECIALIST.CNM Work Phone: Start: 12-13-2020 End: 10-27-2024 Vaccine refused by patient COVID-19 vaccine series declined Sheyla Moreno NETWORK OPERATIONS SPECIALIST.CNM Work Phone: Plan of Treatment Date Care Activity Detail Author Start: 11-13-2030 Urine microalbumin profile [facility] Start: 06-07-2029 Screening for malign ant neoplasm of cervix Cervical Cancer Screening [facility] Start: 06-15-2025 HPV TESTING HPV TESTING [facility] Start: 06-15-2025 PAP TESTING PAP TESTING [facility] Start: 06-15-2025 Screening for malign ant neoplasm of cervix Cervical Cancer Screening [facility] Start: 12-27-2024 End: 12-27-2024 Patient encounter procedure Maternal Medicine Comment on above: Growth Growth/OB Growth/BPP Start: 12-24-2024 End: 12-24-2024 Patient encounter procedure 12/24/2024 2:50 PM EDT Routine Office Visit OB/Gynecology [address] [place] [address] Polly Hamilton MD [address] [place] [address] OB/NST OB/Gynecology Comment on above: OB/NST Start: 12-21-2024 End: 12-21-2024 Patient encounter procedure Maternal Medicine Comment on above: BPP OB Start: 12-20-2024 End: 12-20-2024 Patient encounter procedure OB/Gynecology Comment on above: OB Start: 12-17-2024 End: 12-17-2024 Patient encounter procedure 12/17/2024 9:00 AM EDT Routine Office Visit Maternal Medicine [address] [place] [address] [facility] Comment on above: BPP Start: 12-15-2024 End: 12-15-2024 Patient encounter procedure 12/15/2024 3:30 PM EDT Routine Office Visit OB/Gynecology [address] [place] [address] Crissy Tom APRN.[facility] [address] [place] [address] NST only OB/Gynecology Comment on above: NST only Start: 12-14-2024 End: 03-15-2025 CBC panel - Blood by Automated count COMPLETE BLOOD COUNT Lab Routine Chronic hypertension with superimposed pre-eclampsia (HCC) Expected: 12/14/2024, Expires: 03/15/[address] [facility] Comment on above: Expected: 12/14/2024 , Expires: 03/15/2025 Start: 12-14-2024 End: 03-15-2025 Comprehensive metabolic 2000 panel - Serum or Plasma COMPREHENSIVE METABOLIC PANEL Lab Routine Chronic hypertension with superimposed pre-eclampsia (HCC) Expected: 12/14/2024, Expires: 03/15/[address] [facility] Comment on above: Expected: 12/14/2024 , Expires: 03/15/2025 Start: 12-14-2024 End: 03-15-2025 Urate [Mass/volume] in Serum or Plasma URIC ACID Lab Routine Chronic hypertension with superimposed pre-eclampsia (HCC) Expected: 12/14/2024, Expires: 03/15/[address] [facility] Comment on above: Expected: 12/14/2024 , Expires: 03/15/2025 Start: 12-13-2024 End: 12-13-2024 Patient encounter procedure 12/13/2024 10:10 AM EDT Routine Office Visit OB/Gynecology [address] [place] [address] Kelly Baltazar MD [address] [place] [address] OB OB/Gynecology Comment on above: OB Start: 12-08-2024 Patient discharge [facility] Start: 12-07-2024 Consultation [facility] Start: 12-07-2024 Patient discharge [facility] Start: 12-06-2024 Influenza vaccination [facility] Start: 12-06-2024 RSV Vaccine (1 - Ris k 1-dose series) RSV Vaccine (1 - Risk 1-dose series) [facility] Start: 12-06-2024 Patient discharge [facility] Start: 12-05-2024 Nonstress test [facility] Start: 12-05-2024 [facility] Start: 12-05-2024 Application of intermittent pneumatic compression device [facility] Start: 12-05-2024 Catheterization of vein [facility] Start: 12-04-2024 Admission procedure [facility] Start: 12-04-2024 [facility] Start: 12-04-2024 Consultation [facility] Start: 12-04-2024 Nonstress test [facility] Start: 12-04-2024 End: 12-04-2024 [facility] Start: 12-04-2024 Nonstress test [facility] Start: 12-04-2024 Obstetric monitoring [facility] Start: 12-04-2024 Vital signs measurements [facility] Start: 12-04-2024 Collection of urine and strain for calculus [facility] Start: 11-26-2024 End: 11-26-2024 Patient encounter procedure Maternal Medicine Comment on above: Growth/OB Start: 11-22-2024 End: 11-22-2024 Patient encounter procedure 11/22/2024 1:30 PM EDT Routine Office Visit OB/Gynecology [address] [place] [address] Kelly Baltazar MD [address] [place] [address] OB OB/Gynecology Comment on above: OB Start: 11-08-2024 End: 11-08-2024 Patient encounter procedure 11/08/2024 10:40 AM EDT Routine Office Visit OB/Gynecology [address] [place] [address] Kelly Baltazar MD [address] [place] [address] OB OB/Gynecology Comment on above: OB Start: 10-25-2024 End: 10-25-2024 Patient encounter procedure 10/25/2024 3:10 PM EDT Routine Office Visit OB/Gynecology [address] [place] [address] Kelly Baltazar MD [address] [place] [address] OB Routine OB/Gynecology Comment on above: OB Routine Start: 10-25-2024 End: 10-25-2024 ambulatory 10/25/2024 3:00 PM EDT Results Only [place] [facility] [address] [place] [address] Glucose test and Labs [facility] Comment on above: Glucose test and Lab s Start: 10-25-2024 End: 10-25-2024 Patient encounter procedure 10/25/2024 1:30 PM EDT Routine Office Visit Maternal Medicine [address] [place] [address] Growth [facility] Comment on above: Growth Start: 09-27-2024 End: 09-27-2024 Patient encounter procedure OB/Gynecology Comment on above: OB Routine OB Routine - needs T OC once finished with Augmentin Start: 09-27-2024 End: 12-27-2024 ANEMIA REFLEX PANEL ANEMIA REFLEX PANEL Lab Routine Expected: 09/27/2024, Expires: 12/27/[address] [facility] Comment on above: Expected: 09/27/2024 , [...] Expected: 09/27/2024, Expires: 09/27/[address] [facility] Comment on above: Expected: 09/27/2024 , Expires: 09/27/2025 Start: 09-14-2024 End: 12-14-2024 Bacteria identified in Urine by Culture BACTERIAL CULTURE, URINE Microbiology Routine UTI (urinary tract infection) in , antepartum (HCC) Expected: 09/14/2024 (Approximate), Expires: 12/14/[address] [facility] Comment on above: Expected: 09/14/2024 (Approximate), Expires: 12/14/2024 Start: 09-03-2024 End: 09-03-2024 Patient encounter procedure [facility]aternal Medicine Comment on above: Anatomy Scan OB Routine Start: 08-02-2024 End: 08-02-2024 Patient encounter procedure 08/02/2024 3:10 PM EDT Routine Office Visit OB/Gynecology [address] [place] [address] Polly Hamilton MD [address] [place] [address] OB Routine OB/Gynecology Comment on above: OB Routine Start: 07-05-2024 End: 07-05-2024 Patient encounter procedure [facility]aternal Medicine Comment on above: Nuchal OB Routine Start: 07-05-2024 End: 10-04-2024 Chromosome 21 trisomy [Presence] in Blood or Tissue by Cytogenetics [id number] PLUS Lab Routine 8 weeks gestation of Expected: 07/05/2024, Expires: 10/04/[address] [facility] Comment on above: Expected: 07/05/2024 , Expires: 10/04/2024 Start: 06-07-2024 End: 06-07-2024 Patient encounter procedure 06/07/2024 2:45 PM EST Initial Office Visit OB/Gynecology [address] [place] [address] Leanne Aquino APRN.[employer] [address] [place] [address] New ob OB/Gynecology Comment on above: New ob Start: 06-07-2024 End: 09-06-2024 ANEMIA REFLEX PANEL [facility] Work Phone: Comment on above: Expected: 06/07/2024 , Expires: 09/06/2024 Start: 06-07-2024 End: 09-06-2024 Comprehensive metabolic 2000 panel - Serum or Plasma [facility] Comment on above: Expected: 06/07/2024 , Expires: 09/06/2024 Start: 06-07-2024 End: 09-06-2024 Hemoglobin A1c in Blood [facility] Comment on above: Expected: 06/07/2024 , Expires: 09/06/2024 Start: 06-07-2024 End: 09-06-2024 Hepatitis B virus surface Ag [Presence] in Serum [facility] Comment on above: Expected: 06/07/2024 , Expires: 09/06/2024 Start: 06-07-2024 End: 09-06-2024 Hepatitis C virus Ab [Presence] in Serum [facility] Comment on above: Expected: 06/07/2024 , Expires: 09/06/2024 Start: 06-07-2024 End: 09-06-2024 HIV 1+2 Ab [Presence] in Serum or Plasma by Immunoassay [facility] Comment on above: Expected: 06/07/2024 , Expires: 09/06/2024 Start: 06-07-2024 End: 06-07-2025 OBSTETRIC ULTRASOUND WHI OBSTETRIC ULTRASOUND WHI Anc Imaging Routine 8 weeks gestation of Expected: 06/07/2024, Expires: 06/07/[address] [facility] Comment on above: Expected: 06/07/2024 , Expires: 06/07/2025 Start: 06-07-2024 End: 09-06-2024 Protein/Creatinine [Mass Ratio] in Urine [facility] Comment on above: Expected: 06/07/2024 , Expires: 09/06/2024 Start: 06-07-2024 End: 09-06-2024 RUBELLA IGG ANTIBODY [facility] Comment on above: Expected: 06/07/2024 , Expires: 09/06/2024 Start: 06-07-2024 End: 09-06-2024 SYPHILIS TREPONEMAL W/REFLEX [facility] Comment on above: Expected: 06/07/2024 , Expires: 09/06/2024 Start: 06-07-2024 End: 09-06-2024 TYPE + SCREEN [facility] Comment on above: Expected: 06/07/2024 , Expires: 09/06/2024 Start: 06-07-2024 End: 06-07-2024 Patient encounter procedure 06/07/2024 10:30 AM EST Routine Office Visit OB/Gynecology [address] [place], [place] [id number] Crissy Tom APRN.CN [address] [place] [address] Last cycle 04/09/2024, expecting, took 2 at home test OB/Gynecology Comment on above: Last cycle , expecting, took 2 at home test Start: 12-07-2023 Covid-19 Vaccine ( season) Covid-19 Vaccine ( season) [facility] Start: 12-07-2023 Influenza vaccination Influenza Vacc ine (#1) [facility] Start: 12-06-2022 Influenza vaccination Influenza Vacc ine (#1) [facility] Start: 04-07-2022 Depression Assessment Depression Ass essment [facility] Start: 02-11-2022 End: 04-13-2022 Thyrotropin [Units/volume] in Serum or Plasma [facility] Work Phone: Comment on above: Expected: 02/11/2022 , Expires: 04/13/2022 Start: 12-06-2021 Influenza vaccination INFLUENZA (#1) [facility] Start: 04-07-2021 DEPRESSION ASSESSMENT DEPRESSION ASS ESSMENT [facility] Start: 2020 HPV TESTING HPV TESTING [facility] Start: 12-07-2019 Influenza vaccination INFLUENZA (#1) [facility] Start: 2017 HPV Vaccine (1 - 3-d ose SCDM series) HPV Vaccine (1 - 3-dose SCDM series) [facility] Start: 2011 PAP TESTING PAP TESTING [facility] Start: 2009 Hepatitis B Vaccine (1 of 3 - 19+ 3-dose series) Hepatitis B Vaccine (1 of 3 - 19+ 3-dose series) [facility] Start: 2009 Urine microalbumin profile DTAP,TDAP,TD (1 - Tdap) [facility] Start: 2008 Anxiety Screening Anxiety Screening [facility] Start: 2008 Depression Screening Depression Scre ening [facility] Start: 2008 HEPATITIS C SCREENING HEPATITIS C SC REENING [facility] Start: 2008 HIV SCREENING HIV SCREENING [facility] Start: 2002 Adult depression screening assessment DEPRESSION SCREENING [facility] Start: 1990 COVID-19 VACCINE (#1) COVID-19 VACCI NE (#1) [facility] Start: 1990 HEPATITIS B (1 of 3 - 3-dose series) HEPATITIS B (1 of 3 - 3-dose series) [facility] Start: 1990 Hepatitis B Vaccine (1 of 3 - 3-dose series) Hepatitis B Vaccine (1 of 3 - 3-dose series) [facility] Bacteria identified in Urine by Culture BACTERIAL CULTURE, URINE Microbiology Routine 8 weeks gestation of 06/07/2024 3:39 PM EST [facility] Bacteria identified in Urine by Culture BACTERIAL CULTURE, URINE Microbiology Routine 12 weeks gestation of UTI (urinary tract infection) in , antepartum , supervision, high-risk, unspecified trimester 07/05/2024 3:48 PM EDT [facility] Work Phone: Bacteria identified in Urine by Culture BACTERIAL CULTURE, URINE Microbiology Routine UTI (urinary tract infection) in , antepartum ([facility]) 08/02/2024 3:21 PM EDT [facility] Work Phone: Bacteria identified in Urine by Culture BACTERIAL CULTURE, URINE Microbiology Routine Supervision of high risk in second trimester ([facility]) History of pre-eclampsia UTI (urinary tract infection) in , antepartum (HCC) 21 weeks gestation of ([facility]) 09/03/2024 3:20 PM EDT [facility] Bacteria identified in Urine by Culture BACTERIAL CULTURE, URINE Microbiology Routine UTI (urinary tract infection) in , antepartum ([facility]) Supervision of high risk in second trimester (HCC) Chronic hypertension in (HCC) 24 weeks gestation of (HCC) Ordered: 09/27/[address] [facility] Comment on above: Ordered: 09/27/2024 Bacteria identified in Urine by Culture BACTERIAL CULTURE, URINE Microbiology Routine UTI (urinary tract infection) in , antepartum ([facility]) Supervision of high risk in second trimester ([facility]) Chronic hypertension in (HCC) 28 weeks gestation of (HCC) 10/25/2024 3:01 PM EDT [facility] Work Phone: End: 01-18-2025 BIOPHYSICAL PROFILE US [facility]I BIOPHYSICAL PROFILE US [facility] Anc Imaging Routine Chronic hypertension in (HCC) Obesity affecting in third trimester, unspecified obesity type ([facility]) Antepartum anemia complicating in third trimester ([facility]) 1 Occurrences starting 12/14/2024 until 01/18/2025 [facility] Work Phone: Comment on above: 1 Occurrences starti ng 12/14/2024 until 01/18/2025 Chlamydia trachomatis+Neisseria gonorrhoeae DNA [Presence] in Unspecified specimen by KEVIN with probe detection GONORRHEA/CHLAMYDIA NAAT Lab Routine Screen for STD (sexually transmitted disease) 8 weeks gestation of 06/07/2024 3:39 PM [facility] End: 01-17-2025 nonstress test NON-STRESS TEST Procedures Routine Chronic hypertension in (HCC) Obesity affecting in third trimester, unspecified obesity type ([facility]) 35 weeks gestation of ([facility]) Once per week for 4 Occurrences starting 12/13/2024 until 01/17/2025 [facility] Work Phone: Comment on above: Once per week for 4 Occurrences starting 12/13/2024 until 01/17/2025 End: 05-29-2021 HCG.beta subunit Qn HCG QUANTITATIVE Lab Routine Threatened miscarriage 1 Occurrences starting 05/29/2020 until 05/29/[address] [facility] Comment on above: 1 Occurrences starti ng 05/29/2020 until 05/29/2021 HCG.beta subunit Qn HCG QUANTITA TIVE Lab Routine Threatened miscarriage 05/29/2020 4:41 PM [facility] End: 01-25-2025 OBSTETRIC ULTRASOUND WHI OBSTETRIC ULTRASOUND WHI Anc Imaging Routine Chronic hypertension in (HCC) 21 weeks gestation of (HCC) Once per month for 5 Occurrences starting 09/03/2024 until 01/25/2025 [facility] Work Phone: Comment on above: Once per month for 5 Occurrences starting 09/03/2024 until 01/25/2025 PAP TEST PAP TEST Lab Shannon patsy Screening for cervical cancer 8 weeks gestation of 06/07/2024 3:39 PM [facility] Patient Education Kick Counts ED False Labor OB Triage: Return to Hospital or Notify Physician if you Experience: [facility] Work Phone: TRICHOMONAS VAGINALI S NAAT TRICHOMONAS VAGINALIS NAAT Lab Routine Screen for STD (sexually transmitted disease) 8 weeks gestation of 06/07/2024 3:39 PM [facility] UA DIP,URINE HCG (POC) UA DIP,UR INE HCG (POC) Lab Routine UTI (urinary tract infection) in , antepartum (HCC) Ordered: 09/07/2024 [facility] Work Phone: Comment on above: Ordered: 09/07/2024 [facility] Immunizations Immunization Date Immunization Notes Care Provider Ijeoma staley 11-13-2020 tetanus toxoid, redu rosemary diphtheria toxoid, and acellular pertussis vaccine, adsorbed Sheyla Moreno APRN.CNM Work Phone: [facility] 04-05-2019 tetanus toxoid, redu rosemary diphtheria toxoid, and acellular pertussis vaccine, adsorbed Dr. Chiki Gonzales MD Work Phone: [facility] Payers Date Payer Category Payer Self-pay 2024 Unknown [id number] 2023 [facility] BLUE CARD PPO OOS [id number] 2023 Unknown [id number] 2020 Unknown [id number] 2006 Private Health Insurance [employer] QUINTERO PPO [id number] 2006-Present PPO [id number] Private Health Insurance [id number] Unknown [id number] Unknown [id number] Unknown [id number] Unknown [id number] Unknown [id number] Unknown [id number] Unknown [id number] Social History Date Type Detail Facility Start: 08-08-2012 Tobacco smoking stat us HIIS Never smoker [facility] Start: 08-08-2012 Alcohol intake Not Asked [facility] Start: 1990 Sex Assigned At Not on file [facility] Start: 12-17-2020 End: 01-16-2021 Exposure to SARS-CoV-2 (event) Not sure [facility] Start: 06-08-2020 End: 06-07-2024 Tobacco smoking status NHIS Ex-smoker [facility] Work Phone: Start: 06-08-2009 End: 06-08-2017 History of tobacco use Current smoker [facility] Work Phone: Start: 06-08-2009 End: 06-08-2017 History of tobacco use Cigarette Smoker [facility] Work Phone: Start: 06-08-2020 End: 05-24-2024 Tobacco use and exposure Smokeless tobacco non-user [facility] Work Phone: Start: 02-20-2021 End: 12-22-2024 Alcohol intake Ex-drinker (finding) [facility] Start: 06-08-2020 Education [address] [facility] Start: 06-08-2020 Alcohol Comment social occasional dr mclaughlin [facility] Start: 02-11-2022 End: 04-09-2023 History of Social function [facility] Start: 02-11-2022 End: 04-09-2023 Tobacco use panel [facility] Start: 03-08-2012 National Score (1-100), lower number is lower risk [address] [facility] Start: 1990 Sex assigned at Female [facility] Start: 05-20-2024 Gender identity Identifies as female gender (finding) [facility] Start: 06-07-2024 Tobacco use and exposure Former smokeless tobacco user [facility] Start: 06-07-2024 Tobacco Comment Nicotine pouch discontinued 04/[address] [facility] Start: 04-23-[address] [facility] Medical Equipment Procedure Code Equipment Code Equipment Origin al Text Equipment Identifier Dates Cystoscopic insertion of stent Polymeric ureteral stent [id number] FDA Start: 12-06-2024 Goals Date Patient Goal Desired Activity /State Personal health goal Mental Status Date Assessment Result Facility 12-08-2024 Cognitive function Level Of Cons ciousness Awake;Alert;Appropriate [facility] Work Phone: 12-08-2024 Cognitive function Voice/Name [facility] Work Phone: 12-06-2024 Cognitive function Level Of Cons ciousness Awake;Alert [facility] Work Phone: Clinical Notes 11-15-2020 to 12-22-2024 Quick Notes - Adina Krueger MD - 12/22/2024 10:26 AM EDTPrenatal Quick Notes - Adina Krueger MD - 12/22/2024 10:26 AM EDTPatient InstructionsPatient Instructions Note Date & Type Note Facility 12-22-2024 Progress note Formatting of t his note might be different from the original. RR- VB No. LOF No. CTXS No. Movement: present. Other c/o: No. Medication list reviewed. SENSITIVE EXAM: The sensitive examination was discussed with the Patient or Patient's Authorized Flat Drier. As applicable, any other physician, advance practice provider, medical student, or other health professional student that will be observing or involved in the sensitive examination for educational or training purposes was discussed with the Patient or Authorized Flat Drier. The Patient or Authorized Flat Drier has agreed to proceed with the sensitive examination. (Sensitive examination includes inspection and/or palpation of the breasts, pelvis, prostate and anorectal regions). Physical Exam See Flow Sheet Abd: soft, nontender, gravid Ext: edema: 1+, 2+ DTRs, no clonus A/P 36w5d Estimated Date of Delivery: 01/14/25 ASSESSMENT/PLAN: 1. 36 weeks gestation of (HCC) - ICD9: V22.2, ICD10: Z3A.36 (primary diagnosis) - URINE OB DIP B/O - ROUTINE, GROUP B STREPTOCOCCUS BY PCR 2. Chronic hypertension in ([facility]) - ICD9: 642.00, ICD10: O10.919 - URINE OB DIP B/O 3. Obesity affecting in third trimester, unspecified obesity type ([facility]) - ICD9: 649.13, ICD10: O99.213 - URINE OB DIP B/O 4. Calculus of kidney affecting in third trimester ([facility]) - ICD9: 646.83, 592.0, ICD10: O99.891, N20.0 with stent, pain controlled for most part w/ tylenol - URINE OB DIP B/O r/b/a to early term delivery due to htn, and pain w/ kidney stone and stent and treatment being deferred until delivery reviewed. Consent signed. Desires to proceed. Adina Krueger MD [facility] 12-22-2024 Miscellaneous Notes RR- VB No. LOF No. CTXS No. Movement: present. Other c/o: No. Medication list reviewed. SENSITIVE EXAM: The sensitive examination was discussed with the Patient or Patient's Authorized Flat Drier. As applicable, any other physician, advance practice provider, medical student, or other health professional student that will be observing or involved in the sensitive examination for educational or training purposes was discussed with the Patient or Authorized Flat Drier. The Patient or Authorized Flat Drier has agreed to proceed with the sensitive examination. (Sensitive examination includes inspection and/or palpation of the breasts, pelvis, prostate and anorectal regions). Physical Exam See Flow Sheet Abd: soft, nontender, gravid Ext: edema: 1+, 2+ DTRs, no clonus A/P 36w5d Estimated Date of Delivery: 01/14/25 ASSESSMENT/PLAN: 1. 36 weeks gestation of ([facility]) - ICD9: V22.2, ICD10: Z3A.36 (primary diagnosis) - URINE OB DIP B/O - ROUTINE, GROUP B STREPTOCOCCUS BY PCR 2. Chronic hypertension in ([facility]) - ICD9: 642.00, ICD10: O10.919 - URINE OB DIP B/O 3. Obesity affecting in third trimester, unspecified obesity type ([facility]) - ICD9: 649.13, ICD10: O99.213 - URINE OB DIP B/O 4. Calculus of kidney affecting in third trimester ([facility]) - ICD9: 646.83, 592.0, ICD10: O99.891, N20.0 with stent, pain controlled for most part w/ tylenol - URINE OB DIP B/O r/b/a to early term delivery due to htn, and pain w/ kidney stone and stent and treatment being deferred until delivery reviewed. Consent signed. Desires to proceed. Adina Krueger MD documented in this encounter [facility] 12-21-2024 Note Indication Evaluation of growth. Evaluation of well-being. Maternal obesity, BMI >30. -induced hypertension Impression REMOTE READ - Single, live, intrauterine . - presentation is cephalic. - The biometry is consistent with the assigned gestational dating. - The EFW is 3318 g, at the 84%. AC is at the 97%. - The amniotic fluid volume is normal amount with an MVP of 4.8 cm and an KATI of 16.4 cm. - The placenta is anterior, fundal. - BPP 11/12. - No malformations visualized on a limited survey as detailed below. Recommendations Recommend delivery at 37 weeks secondary to gestational hypertension vs chronic hypertension complicated by nephrolithiasis requiring stent placement Maternal Assessment Height 183 cm Height (ft) 6 ft Physical Exam Initial weight (lb) 284 lb Initial BMI 38.52 kg/m Method Transabdominal ultrasound examination Mariano . Number of fetuses: 1 Dating LMP on: 04/09/2024 GA by LMP 36 w + 4 d BRITTANY by LMP: 01/14/2025 GA by prior assessment 36 w + 4 d BRITTANY by prior assessment: 01/14/2025 Ultrasound examination on: 12/21/2024 GA by U/S based upon: AC, BPD, Femur, HC GA by U/S 37 w + 3 d BRITTANY by U/S: 01/08/2025 Assigned: based on stated BRITTANY, selected on 11/26/2024 Assigned GA 36 w + 4 d Assigned BRITTANY: 01/14/2025 General Evaluation Cardiac activity present. FHR 134 bpm. movements: present. Presentation: cephalic Placenta: Placental site: anterior, fundal Umbilical cord: Cord vessels: 3 vessel cord. Insertion site: normal insertion Amniotic fluid: Amount of AF: normal amount. MVP 4.8 cm. KATI 16.4 cm. Q1 4.4 cm, Q2 3.3 cm, Q3 4.8 cm, Q4 3.9 cm Biophysical Profile 2: breathing movements 2: Gross body movements 2: tone 2: Amniotic fluid volume 11/12 Biophysical profile score Growth Overview Exam date GA BPD (mm) HC (mm) AC (mm) FL (mm) HL (mm) EFW (g) 09/03/2024 21w 0d 48.6 36% 184.2 43% 158.1 41% 35.5 73% 36 89% 392 45% 10/25/2024 28w 3d 72.6 61% 267.7 55% 245.3 54% 53.5 59% 1272 47% 11/26/2024 33w 0d 82.9 54% 306.1 53% 311.4 95% 62.9 49% 2359 75% 12/21/2024 36w 4d 91.7 79% 332.5 62% 347.1 97% 71.1 77% 3318 84% Biometry Standard BPD 91.7 mm 37w 2d 79% Hadlock OFD 116.8 mm -/- 64% Nicolaides HC 332.5 mm 37w 4d 62% Jh AC 347.1 mm 38w 4d 97% Hadlock Femur 71.1 mm 36w 0d 77% Jh EFW 3,318 g 38w 3d 84% Hadlock EFW (lb) 7 lb EFW (oz) 5 oz EFW by: Hadlock (HC-AC-FL) Extended Barrel Raiser Helper 5.5 mm Extremities / Bony Struc FL / HC 0.21 Other Structures FHR 134 bpm Anatomy Lateral ventricles: normal Cavum septi pellucidi: normal Cerebellum: normal Cisterna magna: normal 4-chamber view: normal RVOT view: normal LVOT view: normal 3-vessel view: normal Heart / Thorax Situs: situs solitus (normal) Diaphragm: normal Stomach: normal Kidneys: normal Bladder: normal Wants to know sex: yes Performed By: Rocío Mariscal RDMS Read By: Chava Morocho M.D. MATERNAL MEDICINE 12-21-2024 Instructions Bella Dinero MA - 12/21/2024 10:40 AM EDT SEQUENTIAL SCREENINGS The [facility] offers sequential screenings for women who [...] It will require an appointment with our automotive refinish technician. This is not an ultrasound performed [...] the above symptoms, contact our office at [phone] and ask to speak with a nurse. After hours, you can call doctors registry at [phone] OR call [facility] at [phone] and ask to have the doctor honey producer paged. If you consider this an emergency, dial 7-7-3 or go to your nearest emergency department. NEED HELP? Are you dealing with a violent or abusive relationship? Are you a victim of rape or sexual assult? Call [facility] ([place]) 24 hour Crisis Hotline: 559.838.5633 or 137-621-2506. MANUAL Your Guide to a Healthy manual is now on-line. Visit [email or web address] to download your free copy documented in this encounter [facility] 12-17-2024 Note Indication Evaluation of well-being Chronic hypertension, Maternal obesity, BMI >35 Impression REMOTE READ - Single, live, intrauterine . - presentation is cephalic. - The amniotic fluid volume is normal amount with an MVP of 5 cm and an KATI of 17.8 cm. - The placenta is anterior, fundal. - BPP 11/12. Recommendations - Weekly surveillance. - growth ultrasound every 4 weeks. - Additional follow up as clinically indicated. Maternal Assessment Height 183 cm Height (ft) 6 ft Physical Exam Initial weight (lb) 284 lb Initial BMI 38.52 kg/m Maternal assessment other: 2 Para 1 Growth Overview Exam date GA BPD (mm) HC (mm) AC (mm) FL (mm) HL (mm) EFW (g) 09/03/2024 21w 0d 48.6 36% 184.2 43% 158.1 41% 35.5 73% 36 89% 392 45% 10/25/2024 28w 3d 72.6 61% 267.7 55% 245.3 54% 53.5 59% 1272 47% 11/26/2024 33w 0d 82.9 54% 306.1 53% 311.4 95% 62.9 49% 2359 75% Method Transabdominal ultrasound examination Mariano . Number of fetuses: 1 Dating LMP on: 04/09/2024 GA by LMP 36 w + 0 d BRITTANY by LMP: 01/14/2025 GA by prior assessment 36 w + 0 d BRITTANY by prior assessment: 01/14/2025 Assigned: based on stated BRITTANY, selected on 11/26/2024 Assigned GA 36 w + 0 d Assigned BRITTANY: 01/14/2025 General Evaluation Cardiac activity present. FHR 122 bpm. movements: present. Presentation: cephalic Placenta: Placental site: anterior, fundal Amniotic Fluid Assessment Amount of AF: normal amount MVP 5.0 cm. KATI 17.8 cm. Q1 4.1 cm, Q2 5.0 cm, Q3 4.4 cm, Q4 4.2 cm Biophysical Profile 2: breathing movements 2: Gross body movements 2: tone 2: Amniotic fluid volume 8/8 Biophysical profile score Performed By: Eden Aly RDMS, T Read By: Clinton Cevallos D.O. MATERNAL MEDICINE 12-15-2024 Note HNO ID: [id number] Author: CRISSY TOM APRN.CNM Service: ? Author Type: Psychology Technician Type: Progress Notes Filed: 12/15/2024 16:38 Note Text: NST SUMMARY PROVIDER ASSESSMENT AND INTERPRETATION Hillary Fraire is a 34 year old female, , who is at 35w5d with an BRITTANY of 01/14/2025, by Last Menstrual Period dating method. Indications for NST: Chronic HTN and Obesity Baseline: 135 Variability: Moderate Accelerations: Present 15 X 15 Decelerations: None Contractions: TOCO: None Interpretation: Reactive SIGNATURE: Crissy oTm APRN.CNM [facility] 12-15-2024 History of Presen t illness Narrative NST SUMMARY PROVIDER ASSESSMENT AND INTERPRETATION Hillary Fraire is a 34 year old female, , who is at 35w5d with an BRITTANY of 01/14/2025, by Last Menstrual Period dating method. Indications for NST: Chronic HTN and Obesity Baseline: 135 Variability: Moderate Accelerations: Present 15 X 15 Decelerations: None Contractions: TOCO: None Interpretation: Reactive SIGNATURE: Crissy Tom APRN.CNM BP 146/83 MELANY BP average 128/84 1 - 128/80 pulse 85 2- 134/79 pulse 90 3- 122/81 4-120/79 Liz Mckeon LPN documented in this encounter [facility] 12-15-2024 Note HNO ID: [id number] Author: LIZ MCKEON LPN Service: ? Author Type: Licensed Nurse Type: Progress Notes Filed: 12/15/2024 16:38 Note Text: BP 146/83 MELANY BP average 128/84 1 - 128/80 pulse 85 2- 134/79 pulse 90 3- 122/81 4-120/79 Liz Mckeon LPN [facility] 12-15-2024 Progress note Formatting of t his note might be different from the original. Patient here for NST only. NST reactive. Cat. 1 tracing with no contractions. Continues to have elevated blood pressures at home( no severe ranges) and needs repeat labs drawn today with plan of delivery at [address] Krueger. Spoke with patient and about recommendations for delivery at 37 weeks and they would like to discuss with physician at next visit on Friday after ultrasound. Reviewed preeclampsia precautions, severe range blood pressures, and when to call office/ honey producer provider. Crissy Tom APRN.CNM [facility] 12-15-2024 Miscellaneous Notes Patient here for NST only. NST reactive. Cat. 1 tracing with no contractions. Continues to have elevated blood pressures at home( no severe ranges) and needs repeat labs drawn today with plan of delivery at [address] Krueger. Spoke with patient and about recommendations for delivery at 37 weeks and they would like to discuss with physician at next visit on Friday after ultrasound. Reviewed preeclampsia precautions, severe range blood pressures, and when to call office/ honey producer provider. Crissy Tom APRN.CNM documented in this encounter [facility] 12-14-2024 Telephone encounter Note Patient called back. She will have NST and labs drawn tomorrow. Needs end of day. Scheduled for 3:30 PM. Polly Peace RN [facility] 12-14-2024 Miscellaneous Notes Patient called back. She will have NST and labs drawn tomorrow. Needs end of day. Scheduled for 3:30 PM. Polly Peace RN Left message to call office. Please notify patient she need to get lab work repeated tomorrow and also needs to be scheduled for NST tomorrow. Eden Lovett RN Labs ordered and BPP order placed. Have her get NST today or tomorrow. Patient notified of below and appointments scheduled. Need orders for BPP's and repeat blood work. Does patient need NST this week also, or OK for just BPP on Friday this ? Eden Lovett RN Needs twice weekly testing. One BPP and one NST. F/u in office twice weekly, call or return for signs/symptoms of severe preeclampsia. Repeat labs Fri or . Likely Ind. 37 weeks. Adina Krueger MD documented in this encounter [facility] 12-14-2024 Telephone encounter Note Left message to call office. Please notify patient she need to get lab work repeated tomorrow and also needs to be scheduled for NST tomorrow. Eden Lovett RN [facility] 12-14-2024 Telephone encounter Note Labs ordered and BPP order placed. Have her get NST today or tomorrow. [facility] 12-14-2024 Telephone encounter Note Patient notified of below and appointments scheduled. Need orders for BPP's and repeat blood work. Does patient need NST this week also, or OK for just BPP on Friday this ? Eden Lovett RN [facility] 12-14-2024 Telephone encounter Note Needs twice weekly testing. One BPP and one NST. F/u in office twice weekly, call or return for signs/symptoms of severe preeclampsia. Repeat labs Fri or . Likely Ind. 37 weeks. Adina Krueger MD [facility] 12-13-2024 Progress note Formatting of t his note might be different from the original. SW- Pt doing well. Two weekends ago was admitted for a kidney stone noted on CTAP. Had a stent placed x 2. Pain has improved since then. Was initially having headaches after the epidural for the procedure. The headaches have resolved and no headaches for 2 days. No fevers, chills, MALLORY, vision changes, upper abd pain, nausea, vomiting, pain. Established with Dr. Camejo. No ctx, vb, lof. Good FM. PE: Gen- NAD, well appearing Abd- Soft, gravid, NT See flowsheet A/p 35 wk gestation - CHTN: BP's normal at home. True BP average 125/80. Pre e labs today. Discussed reasons to call. Cont home BP monitoring. Cont LDA - Kidney stone: Stent placed by Dr. Camejo. Cont prescribed antibiotics. Planning follow up with Dr. Cobb - Obesity: Weekly NST's ordered. Already has growth US scheduled. Discussed delivery 39 weeks - RTO 1 wk Kelly Baltazar DO T [facility] 12-13-2024 Miscellaneous Notes SW- Pt doing well. Two weekends ago was admitted for a kidney stone noted on CTAP. Had a stent placed x 2. Pain has improved since then. Was initially having headaches after the epidural for the procedure. The headaches have resolved and no headaches for 2 days. No fevers, chills, MALLORY, vision changes, upper abd pain, nausea, vomiting, pain. Established with Dr. Camejo. No ctx, vb, lof. Good FM. PE: Gen- NAD, well appearing Abd- Soft, gravid, NT See flowsheet A/p 35 wk gestation - CHTN: BP's normal at home. True BP average 125/80. Pre e labs today. Discussed reasons to call. Cont home BP monitoring. Cont LDA - Kidney stone: Stent placed by Dr. Camejo. Cont prescribed antibiotics. Planning follow up with Dr. Cobb - Obesity: Weekly NST's ordered. Already has growth US scheduled. Discussed delivery 39 weeks - RTO 1 wk Kelly Baltazar DO documented in this encounter [facility] 12-13-2024 Note HNO ID: [id number] Author: MAURILIO PENN LPN Service: ? Author Type: Licensed Nurse Type: Progress Notes Filed: 12/13/2024 12:58 Note Text: TruBP average: 125/80 130/80 123/79 125/79 127/81 Maurilio Penn LPN [facility] 12-13-2024 History of Presen t illness Narrative TruBP average: 125/80 130/80 123/79 125/79 127/81 Maurilio Penn LPN documented in this encounter [facility] 12-13-2024 Instructions Maurilio Penn LPN - 12/13/2024 9:57 AM EDT SEQUENTIAL SCREENINGS The [facility] offers sequential screenings for women who [...] It will require an appointment with our automotive refinish technician. This is not an ultrasound performed [...] the above symptoms, contact our office at [phone] and ask to speak with a nurse. After hours, you can call doctors registry at [phone] OR call [facility] at [phone] and ask to have the doctor honey producer paged. If you consider this an emergency, dial 9-0-0 or go to your nearest emergency department. NEED HELP? Are you dealing with a violent or abusive relationship? Are you a victim of rape or sexual assult? Call [facility] ([place]) 24 hour Crisis Hotline: 817.779.8841 or 113-403-1734. MANUAL Your Guide to a Healthy manual is now on-line. Visit [email or web address] to download your free copy documented in this encounter [facility] 12-08-2024 Consult note [facility] 12-08-2024 Consult note Note Date/Time December 08, 2024 12:10pm [facility] Medical Records Department [address] [place] [address] Anesthesia Postop Eval I 12/08/24819 MR#: [id number] Acct: [id number] Name: HILLARY FRAIRE Rep #:[id number] : 1990 34 From: Latesha Charlton CRNA PCP: HIRO Mart Status:REG SDC Y Race: C Location: [place] [address] Anesthesia: Postop Eval I Current Vital Signs Temperature: 97.3 F Pulse Rate: 84 Blood Pressure: 127/72 Respiratory Rate: 14 Pulse Ox: 98 Oxygen Delivery Method: Room Air Assessment Airway patent: Yes Spontaneous unlabored respirations: Yes Mental status: Awake nausea: No Vomiting: No Anesthesia Complication: No Fluid Hydration Crystalloid volume administer (ml): 400 Total IV fluid infused: 400 Progress Note Anesthesia document: Postop Eval 1 completed: Yes 12/08/24819 <Electronically signed by Latesha ASHTON NA> Date _ Latesha Goodwinigner Signature: Date CC: ~ Signed [facility] Work Phone: 1(236) 756-844709-03-2025 Discharge summary Author Latesha Elena [facility] Note Date/Time December 08, 2024 7:41am [facility] Medical Records Department [address] [place] [address] Instructions for Home/Discharge Instructions 12/08/24 0740 MR#: [id number] Acct: [id number] Name: HILLARY FRAIRE Rep #:[id number] : 1990 34 From: Latesha Geiger PCP: HIRO Mart Status:REG [facility] Discharge Instructions Diet Discharge Diet: No restrictions Activity Discharge Activity: Return to Normal Activity Dressing / Incision Call your doctor if you observe: Fever of 101 or Higher, Inability to urinate and Inability to have a bowel movement Follow Up Care Please Follow Up With: Latesha Elena MD Test Results: Test results from this visit will be discussed in further detail at your follow- up appointment, if applicable. Discharge Plan Admission Attending Provider: Latesha Elena Primary Care Provider: Madison Butler Instructions Print Language: Fijian Discharge Orders/Prescriptions Prescriptions: Continued hhazlyso-dxm-Xh-FA 1 mg Tablet 1 tab PO DAILY acetaminophen 500 mg Tablet 1,000 mg PO Q6H PRN PRN (Reason: Pain 1-10 Or Fever) Qty: 0 0RF aspirin 81 mg capsule 81 mg PO DAILY oxycodone 5 mg capsule 5 mg PO Q8H PRN (Reason: pain) 5 Days Qty: 15 0RF cephalexin 500 mg capsule 500 mg PO TID Qty: 60 0RF ferrous sulfate [Evelyn-Time] 325 mg (65 mg iron) tablet 325 mg PO QODAY Referrals / Follow Up: Madison Butler NP-C [Primary Care Provider] - Disposition Disposition (needs filled in before D/C Order can be placed): Home, Self Care 12/08/24 0741<Electronically signed by Latesha Elena MD>Latesha Elena MD CC: CORPORATE TRAFFIC MANAGER-C Madison Butler ~ Signed [facility] Work Phone: 1(410) 140-880409-03-2025 History and physical note Author Latesha Elena [facility] Note Date/Time December 08, 2024 7:40am [facility] Medical Records Department [address] [place] [address] H&P Exam - Surgical 12/08/24 0737 MR#: [id number] Acct: [id number] Name: HILLARY FRAIRE Rep #:[id number] : 1990 34 From: Latesha Geiger PCP: HIRO Mart Status:REG [facility] Location: [place] [address] HPI - General General Date of Admission: 12/08/24 Date of Service: 12/08/24 Chief Complaint: Left flank pain HPI Narrative HILLARY FRAIRE, is a 34 F who presents for a cystoscopy with left ureteral stentchange after her inserted stent migrated and her flank pain returned from obstruction due to a large ureteropelvic junction stone. [facility] Medical History Wears glasses Wears contact lenses Low iron Heartburn Hydronephrosis Ureteropelvic junction calculus SROM (spontaneous rupture of membranes) Anxiety Home Medications ?Medication ?Instructions ?Recorded ?Last Taken ?Type hobqjhbz-rgk-Ys-FA 1 mg 1 tab PO DAILY pregna [...] Q8H PRN pain 5 days #15 12/06/24 12/07/24 Rx caps ferrous sulfate 325 mg (65 mg 325 mg PO QODAY 12/07/24 12/03/24 History iron) tablet (Evelyn-Time) Allergy/AdvReac Type Severity Reaction Status Date / Time No Known Allergies Allergy Verified 12/07/24 13:28 Surgical History H/O wisdom tooth extraction Social History Smoking Status: Former smoker ROS Constitutional Constitutional: Denies anorexia, chills, fatigue or fever(s) Eyes Eyes: Reports systems reviewed and no addt'l complaints, except as documented ENT HEENT: Reports systems reviewed and no addt'l complaints, except as documented Cardiovascular Cardiovascular: Reports systems reviewed and no addt'l complaints, except as documented; Denies chest pain or dyspnea Respiratory/Chest Respiratory/Chest: Reports systems reviewed and no addt'l complaints, except as documented; Denies cough or dyspnea Gastrointestinal Gastrointestinal: Reports abdominal pain and nausea Genitourinary Genitourinary: Reports flank pain; Denies dysuria Musculoskeletal Musculoskeletal: Reports systems reviewed and no addt'l complaints, except as documented Integumentary Integumentary: Reports systems reviewed and no [...] and no addt'l complaints, except as documented Vital Signs Vital Signs Vital Signs: 12/08/24 06:26 12/08/24 06:29 12/08/24 06:54 Temperature 96.9 F L 96.9 F L Temperature Source Temporal Pulse Rate 100 100 Respiratory Rate 16 16 Respiratory Pattern Normal Blood Pressure 121/77 H 121/77 H Blood Pressure Mean 91 Blood Pressure Source Monitor Blood Pressure Position Sitting Blood Pressure Location Left Arm Pulse Ox 99 99 Oxygen Delivery Method Room Air Room Air Weight Weight: 275 lb 9.245 oz Body Mass Index (BMI) 37.3 Physical Exam Const oriented x3 and no apparent distress Resp normal respiratory effort Auscultation: Negative for wheezes Cardio regular rate GI soft to palpation GI Narrative: Gravid Inspection: Negative for abdominal distention Bladder / Kidney Exam: CVA tenderness left Extremity normal to inspection Results Lab / Micro Data Attestation: I reviewed the patient's lab results. Assessment & Plan Assessment/Plan (1) Ureteropelvic junction calculus: (2) Hydronephrosis: QUALIFIERS: Hydronephrosis type: with ureteropelvic junction obstruction Qualified Code(s): Q62.11 - Congenital occlusion of ureteropelvic junction (3) Recurrent UTI (urinary tract infection) complicating : QUALIFIERS: Trimester: third trimester Qualified Code(s): O23.43 - Unspecified infection of urinary tract in , third trimester PLAN: Plan Continue antibiotics Continue supportive care Proceed with cystoscopy and left ureteral stent change The procedure, recovery and expectations were explained. [...] surgery/procedure as indicated on the consent form. 12/08/24 6330 <Electronically signed by Latesha Elena MD> Cosigner Signature (if applicable): CC: HIRO Butler; Dr. Latesha Elena MD~ Signed [facility] Work Phone: 1(544) 127-441709-03-2025 Consult note Author Dylon Thapa [facility] Note Date/Time December 08, 2024 6:57am [facility] Medical Records Department [address] [place] [address] Pre-Anesthesia Evaluation 12/08/24 0652 MR#: [id number] Acct: [id number] Name: HILLARY FRAIRE Rep #:[id number] : 1990 34 From: Dylon Thapa MD PCP: HIRO Mart Status:REG SDC Y Race: C Location: [place] [address] ASA Classification* ASA Classification ASA Classification: 3 (Patient ACTIVELY : no IV medications without consulting physician other than zodee. VERENICE. Just had procedure under spinal on Friday, no issues. Would repeat same spinal dosing as previous case. ) Assessment & Plan Anesthesia* Anesthesia Assessment Anesthesia Assessment: Discussed sedation and/or anesthesia options, risks, benefits, and alternatives with patient/parents/legal guardian/POA. Questions invited. The patient/parents/legal guardian/POA seems to understand and agrees to proceedwith anesthesia plan. Reviewed the physical assessment, medical history, allergy history and patient home medications list prior to surgery/procedure/anesthetic and documented any changes. Performed airway and anesthesia risk assessments. Anesthesia Type Anesthesia Type: Spinal (We will do a spinal for this patient due to her to avoid any anesthetic effects to fetus) Anesthesia Focused Assessment* Temperature: 96.9 F Pulse Rate: 100 Blood Pressure: 121/77 Respiratory Rate: 16 Pulse Ox: 99 Oxygen Delivery Method: Room Air Airway Assessment Mouth opens: >3 cm Mallampati Score: III Teeth Condition: Intact Neck Range of motion [...] Glucose 72 mg/dL (74-106) L 01/12/21 08:55 10/08/21 COAG Pre-Assessment Diagnosis/Proposed Procedure Planned Operative Procedure(s): Stent exchange Anesthesia History Anesthesia History - house wirer: Anesthesia History - house wirer Hx Hospitalization Yes: NOV 2024, KIDNEY STONE 12/07/24 13:32 Any Problems With Anesthesia No 12/07/24 13:32 Cholinesterase deficiency No 12/07/24 13:32 You/Your Family Experience No 12/07/24 13:32 fever (hyperthermia) with Relationship Recent Exposure to Contagious No 12/08/24 06:26 Disease Does patient have nerve No 12/07/24 13:32 stimulator Patient instructed to have device shut off --Does patient have Pacemaker or ICD? When Was Last Pacemaker Check QUESTION #4 FULL TEXT: You/Your Family Experience fever (hyperthermia) with Anesthesia Last Oral Intake Last Oral intake: Last Oral Intake NPO since 00:00 12/08/24 06:29 Meds taken in AM with sips of water? 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 - house wirer: PONV - house wirer Female Yes 12/07/24 13:32 HX of Motion Sickness No 12/07/24 13:32 HX of N/V After Surgery No 12/07/24 13:32 Non-Smoker Yes 12/07/24 13:32 Duration of Surgery greater No 12/07/24 13:32 than 60 minutes Number of Risk Factors 2 12/07/24 13:32 PONV Score Moderate Risk 12/07/24 13:32 Height & Weight Height & Weight: Anesthesia: Height & Weight Height 6 ft 12/08/24 06:29 Weight: 125 kg 12/08/24 06:29 Body Mass Index (BMI) 37.3 12/08/24 06:29 Respiratory Assessment Respiratory Assessment - house wirer: Respiratory Tract Infection Hx - house wirer Hx Respiratory Tract Infection No 12/07/24 13:32 STOP Sleep Apnea STOP Sleep Apnea - house wirer: STOP Sleep Apnea - house wirer Hx Hypertension No 12/07/24 13:32 Hx Sleep Apnea No 12/07/24 13:32 CPAP BIPAP Do you snore loudly (louder No 12/07/24 13:32 than talking or can be heard Do you often feel tired/ No 12/07/24 13:32 fatigued/ sleepy during daytime? Has anyone observed you stop No 12/07/24 13:32 breathing during sleep? STOP Results Negative 12/07/24 13:32 QUESTION #5 FULL TEXT : Do you snore loudly (louder than talking or can be heard through closed doors)? Tobacco Use History Tobacco Use History - house wirer: Tobacco Use History - house wirer Tobacco Use Smoking Status Former smoker 12/07/24 13:32 Hx Tobacco Use No 12/07/24 13:32 Years Smoking Packs Smoked per Day Smoking Cessation Date was Yes - quit smoking within 15 12/07/24 13:32 within the last 15 years years Hx Smoking Cessation Date Hx Smoking Cessation Counseling Hematologic Medial History Hematologic Hx - house wirer: Hematologic Medical Hx - legal service specialist Hx of Blood Transfusion No 12/07/24 13:32 Hx of Transfusion in last 3 No 12/07/24 13:32 Months Date of Last Transfusion (if within last 3 months) Ever experience any problems No 12/07/24 13:32 with transfusion(s)? Specify any problems Hx of Preganancy in last 3 Yes 12/07/24 13:32 Months Nurse Filling Out Transfusion [id number] 12/07/24 13:32 & Questions: Date: 12/07/24 12/07/24 13:32 Time: 13:34 12/07/24 13:32 Patient unable to answer at this time (ie. 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 - house wirer: /Reproductive Hx- house wirer Hx Now Yes: 34 WEEKS 12/07/24 13:32 Gestational Age (in weeks): EDC: Hx Hx Para Hx Section SAB No 12/07/24 13:32 Active Medications Active Medications: Current Medications Generic Name Dose Route Start Last Admin Trade Name Freq PRN Reason Stop Dose Admin Cefazolin Sodium 2 gm/ Sodium 110 mls @ 200 mls/hr 12/08/24 07:30 Chloride IV 12/08/24 08:02 INTRAOP ONE Lactated Ringer's 1,000 mls @ 15 mls/hr 12/08/24 06:15 IV .Q48H CECILIA PFSH Medical History Wears glasses Wears contact lenses Low iron Heartburn Hydronephrosis Ureteropelvic junction calculus SROM (spontaneous rupture of membranes) Anxiety Home Medications ?Medication ?Instructions ?Recorded ?Last Taken ?Type zqbgrtgu-qci-Yk-FA 1 mg 1 tab PO DAILY pregna [...] Q8H PRN pain 5 days #15 12/06/24 12/07/24 Rx caps ferrous sulfate 325 mg (65 mg 325 mg PO QODAY 12/07/24 12/03/24 History iron) tablet (Evelyn-Time) Allergy/AdvReac Type Severity Reaction Status Date / Time No Known Allergies Allergy Verified 12/07/24 13:28 Surgical History H/O wisdom tooth extraction Social History Smoking Status: Former smoker Review of Systems (Anesthesia) ROS Narrative System reviewed and no additional complaints, except as documented. Physical Exam Const alert, oriented x3 and average body habitus Resp normal respiratory effort, normal air movement and clear to auscultation bilaterally Cardio regular rate, regular rhythm, no murmurs and diaphoretic 12/08/24 0657 <Electronically signed by Dylon Thapa MD> Date _ Dylon Thapa MD Cosigner Signature: Date CC: ~ Signed [facility] Work Phone: 1(483) 482-789509-03-2025 Discharge summary [facility] Medical Records Department [address] [place] [address] Instructions for Home/Discharge Instructions 12/08/24 0740 MR#: [id number] Acct: [id number] Name: HILLARY FRAIRE Rep #:[id number] : 1990 34 From: Latesha Geiger PCP: HIRO Mart Status:REG SDC Discharge Instructions Diet Discharge Diet: No restrictions Activity Discharge Activity: Return to Normal Activity Dressing / Incision Call your doctor if you observe: Fever of 101 or Higher, Inability to urinate and Inability to havea bowel movement Follow Up Care Please Follow Up With: Latesha Elena MD Test Results: Test results from this visit will be discussed in further detail at your follow- up appointment, if applicable. Discharge Plan Admission Attending Provider: Latesha Elena Primary Care Provider: Madison Butler Instructions Print Language: Fijian Discharge Orders/Prescriptions Prescriptions: Continued nvbxmnhm-ugl-Iv-FA 1 mg Tablet 1 tab PO DAILY acetaminophen 500 mg Tablet 1,000 mg PO Q6H PRN PRN (Reason: Pain 1-10 Or Fever) Qty: 0 0RF aspirin 81 mg capsule 81 mg PO DAILY oxycodone 5 mg capsule 5 mg PO Q8H PRN (Reason: pain) 5 Days Qty: 15 0RF cephalexin 500 mg capsule 500 mg PO TID Qty: 60 0RF ferrous sulfate [Evelyn-Time] 325 mg (65 mg iron) tablet 325 mg PO QODAY Referrals / Follow Up: Madison Butler NP-C [Primary Care Provider] - Disposition Disposition (needs filled in before D/C Order can be placed): Home, Self Care 12/08/24 0741Latesha Elena MD CC: SHARA-C Madison Butler ~ Signed [facility]09-03-2025 History and physical note [facility] Medical Records Department [address] [place] [address] H&P Exam - Surgical 12/08/24 0737 MR#: [id number] Acct: [id number] Name: HILLARY FRAIRE Rep #:[id number] : 1990 34 From: Latesha Geiger PCP: HIRO Mart Status:REG SDC Location: [place] [address]-1 HPI - General General Date of Admission: 12/08/24 Date of Service: 12/08/24 Chief Complaint: Left flank pain HPI Narrative HILLARY FRAIRE, is a 34 F who presents for a cystoscopy with left ureteral stentchange after her inserted stent migrated and her flank pain returned from obstruction due to a large ureteropelvic junction stone. [facility] Medical History Wears glasses Wears contact lenses Low iron Heartburn Hydronephrosis Ureteropelvic junction calculus SROM (spontaneous rupture of membranes) Anxiety Home Medications ?Medication ?Instructions ?Recorded ?Last Taken ?Type kfroyhvz-zll-Mv-FA 1 mg 1 tab PO DAILY pregna ncy 01/08/21 12/03/24 History tablet acetaminophen 500 mg tablet 1,000 mg (2 x 500 mg) PO Q 6H PRN 01/13/21 12/07/24 Rx PRN Pain 1-10 Or Fever #0 tabs aspirin 81 mg capsule 81 mg PO DAILY 12/04/24 090 05/01 History cephalexin 500 mg capsule 500 mg PO TID #60 caps 12/06 Unknown Rx oxycodone 5 mg capsule 5 mg PO Q8H PRN pain 5 days #15 12/06/24 12/07/24 Rx caps ferrous sulfate 325 mg (65 mg 325 mg PO QODAY 12/07/24 12/03/24 History iron) tablet (Evelyn-Time) Allergy/AdvReac Type Severity Reaction Status Date / Time No Known Allergies Allergy Verified 12/07/24 13:28 Surgical History H/O wisdom tooth extraction Social History Smoking Status: Former smoker ROS Constitutional Constitutional: Denies anorexia, chills, fatigue or fever(s) Eyes Eyes: Reports systems reviewed and no addt'l complaints, except as documented ENT HEENT: Reports systems reviewed and no addt'l complaints, except as documented Cardiovascular Cardiovascular: Reports systems reviewed and no addt'l complaints, except as documented; Denies chest pain or dyspnea Respiratory/Chest Respiratory/Chest: Reports systems reviewed and no addt'l complaints, except as documented; Denies cough or dyspnea Gastrointestinal Gastrointestinal: Reports abdominal pain and nausea Genitourinary Genitourinary: Reports flank pain; Denies dysuria Musculoskeletal Musculoskeletal: Reports systems reviewed and no addt'l complaints, except as documented Integumentary Integumentary: Reports systems reviewed and no [...] and no addt'l complaints, except as documented Vital Signs Vital Signs Vital Signs: 12/08/24 06:26 12/08/24 06:29 12/08/24 06:54 Temperature 96.9 F L 96.9 F L Temperature Source Temporal Pulse Rate 100 100 Respiratory Rate 16 16 Respiratory Pattern Normal Blood Pressure 121/77 H 121/77 H Blood Pressure Mean 91 Blood Pressure Source Monitor Blood Pressure Position Sitting Blood Pressure Location Left Arm Pulse Ox 99 99 Oxygen Delivery Method Room Air Room Air Weight Weight: 275 lb 9.245 oz Body Mass Index (BMI) 37.3 Physical Exam Const oriented x3 and no apparent distress Resp normal respiratory effort Auscultation: Negative for wheezes Cardio regular rate GI soft to palpation GI Narrative: Gravid Inspection: Negative for abdominal distention Bladder / Kidney Exam: CVA tenderness left Extremity normal to inspection Results Lab / Micro Data Attestation: I reviewed the patient's lab results. Assessment & Plan Assessment/Plan (1) Ureteropelvic junction calculus: (2) Hydronephrosis: QUALIFIERS: Hydronephrosis type: with ureteropelvic junction obstruction Qualified Code(s): Q62.11 - Congenital occlusion of ureteropelvic junction (3) Recurrent UTI (urinary tract infection) complicating : QUALIFIERS: Trimester: third trimester Qualified Code(s): O23.43 - Unspecified infection of urinarytract in , third trimester PLAN: Plan Continue antibiotics Continue supportive care Proceed with cystoscopy and left ureteral stent change The procedure, recovery and expectations were explained. [...] surgery/procedure as indicated on the consent form. 12/08/24 0740 Cosigner Signature (if applicable): CC: HIRO Butler; Dr. Latesha Elena MD~ Signed [facility]09-03-2025 Consult note [facility] Medical Records Department [address] [place] [address] Pre-Anesthesia Evaluation 12/08/2452 MR#: [id number] Acct: [id number] Name: HILLARY FRAIRE Rep #:[id number] : 1990 34 From: Dylon Thapa MD PCP: HIRO Mart Status:REG SDC Y Race: C Location: [place] [address] ASA Classification* ASA Classification ASA Classification: 3 (Patient ACTIVELY : no IV medications without consulting physician other than steve. VERENICE. Just had procedure under spinal on Friday, no issues. Would repeat same spinaldosing as previous case. ) Assessment & Plan Anesthesia* Anesthesia Assessment Anesthesia Assessment: Discussed sedation and/or anesthesia options, risks, benefits, and alternatives with patient/parents/legal guardian/POA. Questions invited. The patient/parents/legal guardian/POA seems to understand and agrees to proceedwith anesthesia plan. Reviewed the physical assessment, medical history, allergy history and patient home medications list prior to surgery/procedure/anesthetic and documented any changes. Performed airway and anesthesia risk assessments. Anesthesia Type Anesthesia Type: Spinal (We will do a spinal for this patient due to her to avoid any anesthetic effects to fetus) Anesthesia Focused Assessment* Temperature: 96.9 F Pulse Rate: 100 Blood Pressure: 121/77 Respiratory Rate: 16 Pulse Ox: 99 Oxygen Delivery Method: Room Air Airway Assessment Mouth opens: >3 cm Mallampati Score: III Teeth Condition: Intact Neck Range of motion [...] COAG Pre-Assessment Diagnosis/Proposed Procedure Planned Operative Procedure(s): Stent exchange Anesthesia History Anesthesia History - house wirer: Anesthesia History - house wirer Hx Hospitalization Yes: NOV 2024, KIDNEY STONE 12/07/24 13:32 Any Problems With Anesthesia No 12/07/24 13:32 Cholinesterase deficiency No 12/07/24 13:32 You/Your Family Experience No 12/07/24 13:32 fever (hyperthermia) with Relationship Recent Exposure to Contagious No 12/08/24 06:26 Disease Does patient have nerve No 12/07/24 13:32 stimulator Patient instructed to have device shut off --Does patient have Pacemaker or ICD? When Was Last Pacemaker Check QUESTION #4 FULL TEXT: You/Your Family Experience fever (hyperthermia) with Anesthesia Last Oral Intake Last Oral intake: Last Oral Intake NPO since 00:00 12/08/24 06:29 Meds taken in AM with sips of water? 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 - house wirer: PONV - house wirer Female Yes 12/07/24 13:32 HX of Motion Sickness No 12/07/24 13:32 HX of N/V After Surgery No 12/07/24 13:32 Non-Smoker Yes 12/07/24 13:32 Duration of Surgery greater No 12/07/24 13:32 than 60 minutes Number of Risk Factors 2 12/07/24 13:32 PONV Score Moderate Risk 12/07/24 13:32 Height & Weight Height & Weight: Anesthesia: Height & Weight Height 6 ft 12/08/24 06:29 Weight: 125 kg 12/08/24 06:29 Body Mass Index (BMI) 37.3 12/08/24 06:29 Respiratory Assessment Respiratory Assessment - house wirer: Respiratory Tract Infection Hx - house wirer Hx Respiratory Tract Infection No 12/07/24 13:32 STOP Sleep Apnea STOP Sleep Apnea - house wirer: STOP Sleep Apnea - house wirer Hx Hypertension No 12/07/24 13:32 Hx Sleep Apnea No 12/07/24 13:32 CPAP BIPAP Do you snore loudly (louder No 12/07/24 13:32 than talking or can be heard Do you often feel tired/ No 12/07/24 13:32 fatigued/ sleepy during daytime? Has anyone observed you stop No 12/07/24 13:32 breathing during sleep? STOP Results Negative 12/07/24 13:32 QUESTION #5 FULL TEXT : Do you snore loudly (louder than talking or can be heard through closeddoors)? Tobacco Use History Tobacco Use History - house wirer: Tobacco Use History - house wirer Tobacco Use Smoking Status Former smoker 12/07/24 13:32 Hx Tobacco Use No 12/07/24 13:32 Years Smoking Packs Smoked per Day Smoking Cessation Date was Yes - quit smoking within 15 12/07/24 13:32 within the last 15 years years Hx Smoking Cessation Date Hx Smoking Cessation Counseling Hematologic Medial History Hematologic Hx - house wirer: Hematologic Medical Hx - legal service specialist Hx of Blood Transfusion No 12/07/24 13:32 Hx of Transfusion in last 3 No 12/07/24 13:32 Months Date of Last Transfusion (if within last 3 months) Ever experience any problems No 12/07/24 13:32 with transfusion(s)? Specify any problems Hx of Preganancy in last 3 Yes 12/07/24 13:32 Months Nurse Filling Out Transfusion [email or web address] 12/07/24 13:32 & Questions: Date: 12/07/24 12/07/24 13:32 Time: 13:34 12/07/24 13:32 Patient unable to answer at this time (ie. 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 - house wirer: /Reproductive Hx- house wirer Hx Now Yes: 34 WEEKS 12/07/24 13:32 Gestational Age (in weeks): EDC: Hx Hx Para Hx Section SAB No 12/07/24 13:32 Active Medications Active Medications: Current Medications Generic Name Dose Route Start Last Admin Trade Name Freq PRN Reason Stop Dose Admin Cefazolin Sodium 2 gm/ Sodium 110 mls @ 200 mls/hr 12/08/24 07:30 Chloride IV 12/08/24 08:02 INTRAOP ONE Lactated Ringer's 1,000 mls @ 15 mls/hr 12/08/24 06:15 IV .Q48H CECILIA PFSH Medical History Wears glasses Wears contact lenses Low iron Heartburn Hydronephrosis Ureteropelvic junction calculus SROM (spontaneous rupture of membranes) Anxiety Home Medications ?Medication ?Instructions ?Recorded ?Last Taken ?Type gptwdjmy-vtb-Rz-FA 1 mg 1 tab PO DAILY pregna [...] Q8H PRN pain 5 days #15 12/06/24 12/07/24 Rx caps ferrous sulfate 325 mg (65 mg 325 mg PO QODAY 12/07/24 12/03/24 History iron) tablet (Evelyn-Time) Allergy/AdvReac Type Severity Reaction Status Date / Time No Known Allergies Allergy Verified 12/07/24 13:28 Surgical History H/O wisdom tooth extraction Social History Smoking Status: Former smoker Review of Systems (Anesthesia) ROS Narrative System reviewed and no additional complaints, except as documented. Physical Exam Const alert, oriented x3 and average body habitus Resp normal respiratory effort, normal air movement and clear to auscultation bilaterally Cardio regular rate, regular rhythm, no murmurs and diaphoretic 12/08/24 0657 MD> Date _ Dylon Thapa MD Cosigner Signature: Date CC: ~ Signed [facility]09-02-2025 Progress note Author Polly Hamilton [facility] Note Date/Time December 07, 2024 8:23am [facility] Medical Records Department [address] [place] [address] Progress Note - OBGYN 12/07/24820 MR#: [id number] Acct: [id number] Name: HILLARY FRAIRE Rep #:[id number] : 1990 34 From: Polly Hamilton MD PCP: Dr. Chiki Gonzales MD Status:REG C LI Location: [id number] Subjective Subjective Spoke with Dr Elena. Would [...] Cosigner Signature (if applicable): CC: ~ Signed [facility] Work Phone: 1(369) 384-550209-02-2025 Radiology Diagnostic study note [facility] Imaging Services [address] [place] [address] Kidney and Bladder MR#: [id number] Acct: [id number] Name: HILLARY FRAIRE Rep #: [id number] : 1990 F 34 From: Diana Meza MD PCP: Dr. Chiki Gonzales MD Status: ZEE KONG Study:Kidney and Bladder Date of Exam: 0 12/07/24 Exam# [id number] Ordering Dr: Katy Hamilton MD PROCEDURE: KIDNEY AND BLADDER 12/07/2024 REASON FOR EXAM: INCREASED PAIN Left renal calculus. TECHNIQUE: Procedure Code: USKI Modality: US Procedure: KIDNEY AND BLADDER COMPARISON: December 04, 2024 FINDINGS: Kidneys: Right kidney is 12.3 x 5.9 x 5.2 cm, while the left is 15.4 x 7.3 x 6.6cm. Stovall: No collecting system dilation on the right [...] in position. See above description Reading [id number] CC: Dr. Polly Hamilton MD; Dr. Chiki Gonzales MD ~ Dental Technician Instructor: Signed [facility]09-02-2025 Progress note [facility] Medical Records Department [address] [place] [address] Progress Note - OBGYN 12/07/24 0821 MR#: [id number] Acct: [id number] Name: HILLARY FRAIRE Rep #:[id number] : 1990 34 From: Polly Hamilton MD PCP: Dr. Chiki Gonzales MD Status:REG C LI [facility] Subjective Subjective Spoke with Dr Elena. Would [...] Cosigner Signature (if applicable): CC: ~ Signed [facility]09-02-2025 History and physical note Author Polly Hamilton [facility] Note Date/Time December 07, 2024 1:45am [facility] Medical Records Department [address] [place] [address] OB Triage Physician Note 12/07/24 0137 MR#: [id number] Acct: [id number] Name: HILLARY FRAIRE Rep #:[id number] : 1990 34 From: Polly Hamilton MD PCP: Dr. Chiki Gonzales MD Status:REG C LI Y Location: [place] [id number] HPI - General General Date of Admission: [...] Medications ?Medication ?Instructions ?Recorded ?Last Taken ?Type nbysudhk-nfx-Xs-FA 1 mg 1 tab PO DAILY pregna [...] PLAN: Plan Consult urology in 12/07/24 0145 <Electronically signed by Polly yanez MD> Date _ Polly Hamilton MD Cosigner Signature (if applicable): Date CC: Dr. Polly Hamilton MD; Dr. Chiki Gonzales MD ~ Signed [facility] Work Phone: 1(417) 110-281109-02-2025 History and physical note [facility] Medical Records Department [address] [place] [address] OB Triage Physician Note 12/07/24 0137 MR#: [id number] Acct: [id number] Name: HILLARY FRAIRE Rep #:[id number] : 1990 34 From: Polly Hamilton MD PCP: Dr. Chiki Gonzales MD Status:REG Rob KONG Y Location: [place] [id number] HPI - General General Date of Admission: [...] Medications ?Medication ?Instructions ?Recorded ?Last Taken ?Type hqhiusez-ahq-Uz-FA 1 mg 1 tab PO DAILY pregna [...] in > Date _ Polly Hamilton MD Cosigner Signature (if applicable): Date CC: Dr. Polly Hamilton MD; Dr. Chiki Gonzales MD ~ Signed [facility]09-01-2025 Consult note Author Darryl Harvey [facility] Note Date/Time December 06, 2024 1:48pm [facility] Medical Records Department [address] [place] [address] Anesthesia Postop Eval I 12/06/24 1045 MR#: [id number] Acct: [id number] Name: HILLARY FRAIRE Rep #:[id number] : 1990 34 From: Darryl Geiger PCP: Dr. Chiki Gonzales MD Status:ADM I N Y Race: C Location: [place] [address] Anesthesia: Postop Eval I Current Vital Signs [...] Harvey MD> Date _ Darryl Harvey MD [facility] Signature: Date CC: ~ Signed [facility] Work Phone: 1(879) 466-388609-01-2025 [facility] Medical Records Department [address] [facility] [place] [address] Discharge Summary 12/06/24 1458 MR#: [id number] Acct: [id number] Name: HILLARY FRAIRE Rep #: [id number] : 1990 34 From: Polly Hamilton MD PCP: Dr. Chiki Gonzales MD Status:DIS IN Location: [place]919-5 Providers Date of Admission: 12/04/24 Date of [...] ureteropelvic junction Medications at Discharge Home Medications wagiymsg-nvn-Fl-FA 1 mg tablet 1 tab PO DAILY [...] 78.3 H, Lymph % (Auto) 12.4 L, [place] % (Auto) 8.0, Eos % (Auto) 0.2, [...] mg PO TID Qty: 60 0RF Continued blqvekgq-rai-Ve-FA 1 mg Tablet 1 tab PO DAILY [...] can be placed): Home, Self Care 12/06/24 2333 Cosigner Signature (if applicable): CC: Dr. Polly Hamilton MD; Dr. Chiki Gonzales MD [facility] Consult note [facility] Medical Records Department [address] [place] [address] Anesthesia Postop Eval I 12/06/24 1045 MR#: [id number] Acct: [id number] Name: HILLARY FRAIRE Rep #:[id number] : 1990 34 From: Darryl Geiger PCP: Dr. Chiki Gonzales MD Status:ADM I N Y Race: C Location: [place] [address] Anesthesia: Postop Eval I Current Vital Signs [...] MD Cosigner Signature: Date CC: ~ Signed [facility]09-01-2025 Consult note Author Darryl Harvey [facility] Note Date/Time December 06, 2024 10:48am [facility] Medical Records Department [address] [place] [address] Anesthesia Postop Eval II 12/06/24 1047 MR#: [id number] Acct: [id number] Name: HILLARY FRAIRE Rep #:[id number] : 1990 34 From: Darryl Geiger PCP: Dr. Chiki Gonzales MD Status:ADM I N Y Race: C Location: [address] Anesthesia Postop Eval I Sum Postop [...] MD Cosigner Signature: Date CC: ~ Signed [facility] Work Phone: 1(609) 736-660309-01-2025 Progress note Author Latesha Elena [facility] Note Date/Time December 06, 2024 10:13am [facility] Medical Records Department [address] [place] [address] Progress Note - Urology 12/06/24 1002 MR#: [id number] Acct: [id number] Name: HILLARY FRAIRE Rep #:[id number] : 1990 34 From: Latesha Geiger PCP: Dr. Chiki Gonzales MD Status:ADM I N Location: [place] [address] Subjective Subjective No issues overnight. She is [...] 78.3 H, Lymph % (Auto) 12.4 L, [place] % (Auto) 8.0, Eos % (Auto) 0.2, [...] Cosigner Signature (if applicable): CC: ~ Signed [facility] Work Phone: 1(528) 152-885109-01-2025 Consult note [facility] Medical Records Department [address] [place] [address] Anesthesia Postop Eval II 12/06/24 1047 MR#: [id number] Acct: [id number] Name: HILLARY FRAIRE Rep #:[id number] : 1990 34 From: Darryl Geiger PCP: Dr. Chiki Gonzales MD Status:ADM I N Y Race: C Location: [place] [id number] Anesthesia Postop Eval I Sum Postop Eval [...] Pavilion//OB Complications Anesthesia Complication: No 12/06/24 1048 MD> Date _ Draryl Harvey MD Cosign Signature: Date CC: ~ Signed [facility]09-01-2025 Procedure note [facility] Medical Records Department [address] [place] [address] Operative Report 12/06/24 1007 MR#: [id number] Acct: [id number] Name: HILLARY FRAIRE Rep #:[id number] : 1990 34 From: Latesha Geiger PCP: Dr. Chiki Gonzales MD Status:ADM I N Location: HA473-0 Operative Report (Standard) Operative Information Date of Procedure: 12/06/24 Pre-Operative Diagnosis: Left ureteropelvic junction stone with obstruction and urinary tract infection Post-Operative Diagnosis: Same Surgery/Procedure Performed: Cystoscopy with left ureteral stent insertion hay buckler: No Type of Anesthesia: Spinal RN Documented Start/Stop Times: Operation Date: 12/06/24 10:10 Case Time Anesthesia Start 12/06/24 10:08 Into Room 12/06/24 10:08 Procedure Start 12/06/24 10:23 Procedure End 12/06/24 10:29 Anesthesia End 12/06/24 10:37 Out of Room 12/06/24 10:37 Into Recovery 12/06/24 10:41 Procedure Start Time: 10:23 Procedure Stop Time: 10:29 Select all DRAINS/GRAFTS/IMPLANTS that apply: Drains Drain details: 4.5 [place] x28 cm JJ stent Estimated Blood Loss: [...] stone in the renal pelvis. A 4.5 [place] 28 cm stent was placed over the wire with good positioning in the renal pelvis as well as the urinary bladder. At this time the bladder was emptied and the cystoscope was removed. She was awakened and taken to the recovery room in good condition. There were no complications during this procedure. Surgical Findings: 4.5 [place] x 28 cm JJ stent Complications Complications: No Admit VTE Documentation VTE Present on Admission: Yes VTE Mechan Device Prophylaxis: SCD's VTE Pharm Prophylaxis ordered?: No Reason prophylaxis not ordered: Treatment Not Indicated 12/06/24 1048 Cosigner Signature (if applicable): CC: CARLOS Moreno; Dr. Latesha Elena MD; Dr. Chiki Gonzales MD~ Signed [facility]09-01-2025 Progress note [facility] Medical Records Department [address] [place] [address] Progress Note - Urology 12/06/24 1002 MR#: [id number] Acct: [id number] Name: HILLARY FRAIRE Rep #:[id number] : 1990 34 From: Latesha Geiger PCP: Dr. Chiki Gonzales MD Status:ADM I N Location: [place] [address] Subjective Subjective No issues overnight. She is [...] 78.3 H, Lymph % (Auto) 12.4 L, [place] % (Auto) 8.0, Eos % (Auto) 0.2, [...] Cosigner Signature (if applicable): CC: ~ Signed [facility]09-01-2025 Consult note Author Darryl Harvey [facility] Note Date/Time December 06, 2024 7:04am [facility] Medical Records Department [address] [place] [address] Pre-Anesthesia Evaluation 12/06/24 0701 MR#: [id number] Acct: [id number] Name: HILLARY FRAIRE Rep #:[id number] : 1990 34 From: Darryl Geiger PCP: Dr. Chiki Gonzales MD Status:ADM I N Y Race: C Location: [place] [address] ASA Classification* ASA Classification ASA Classification: 2 [...] ureteral stent Anesthesia History Anesthesia History - house wirer: Anesthesia History - house wirer Hx Hospitalization Any Problems With Anesthesia Cholinesterase [...] take am of surgery PONV PONV - house wirer: PONV - house wirer Female HX of Motion Sickness HX of N/V After Surgery Non-Smoker Duration of Surgery greater than 60 minutes Number of Risk Factors PONV Score Height & Weight Height & Weight: Anesthesia: Height & Weight Height 6 ft 12/04/24 11:37 Weight: 127.176 kg 12/04/24 11:37 Body Mass Index (BMI) 38.0 12/04/24 11:37 Respiratory Assessment Respiratory Assessment - house wirer: Respiratory Tract Infection Hx - house wirer Hx Respiratory Tract Infection STOP Sleep Apnea STOP Sleep Apnea - house wirer: STOP Sleep Apnea - house wirer Hx Hypertension Hx Sleep Apnea CPAP BIPAP Do you snore loudly (louder than talking or can be heard Do you often feel tired/ fatigued/ sleepy during daytime? Has anyone observed you stop breathing during sleep? STOP Results QUESTION #5 FULL TEXT : Do you snore loudly (louder than talking or can be heard through closed doors)? Tobacco Use History Tobacco Use History - house wirer: Tobacco Use History - house wirer Tobacco Use Smoking Status Former smoker 01/09/21 00:38 Hx Tobacco Use No 01/09/21 00:38 Years Smoking Packs Smoked per Day Smoking Cessation Date was within the last 15 years Hx Smoking Cessation Date Hx Smoking Cessation Counseling Hematologic Medial History Hematologic Hx - house wirer: Hematologic Medical Hx - legal service specialist Hx of Blood Transfusion Hx of Transfusion in last 3 Months Date of Last Transfusion (if within last 3 months) Ever experience any problems with transfusion(s)? Specify any problems Hx of Preganancy in last 3 Months Nurse Filling Out Transfusion & Questions: Date: Time: Patient unable to answer at this time (ie. 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 - house wirer: /Reproductive Hx- house wirer Hx Now Gestational Age (in weeks): EDC: [...] Medications ?Medication ?Instructions ?Recorded ?Last Taken ?Type avewlhsl-lzk-Ek-FA 1 mg 1 tab PO DAILY pregna [...] MD Cosigner Signature: Date CC: ~ Signed [facility] Work Phone: 1(686) 384-863509-01-2025 Consult note [facility] Medical Records Department [address] [place] [address] Pre-Anesthesia Evaluation 12/06/24 07 MR#: [id number] Acct: [id number] Name: HILLARY FRAIRE Rep #:[id number] : 1990 34 From: Darryl Geiger PCP: Dr. Chiki Gonzales MD Status:ADM I N Y Race: C Location: [facility]012- 1 ASA Classification* [...] ureteral stent Anesthesia History Anesthesia History - house wirer: Anesthesia History - house wirer Hx Hospitalization Any Problems With Anesthesia Cholinesterase [...] take am of surgery PONV PONV - house wirer: PONV - house wirer Female HX of Motion Sickness HX of N/V After Surgery Non-Smoker Duration of Surgery greater than 60 minutes Number of Risk Factors PONV Score Height & Weight Height & Weight: Anesthesia: Height & Weight Height 6 ft 12/04/24 11:37 Weight: 127.176 kg 12/04/24 11:37 Body Mass Index (BMI) 38.0 12/04/24 11:37 Respiratory Assessment Respiratory Assessment - house wirer: Respiratory Tract Infection Hx - house wirer Hx Respiratory Tract Infection STOP Sleep Apnea STOP Sleep Apnea - house wirer: STOP Sleep Apnea - house wirer Hx Hypertension Hx Sleep Apnea CPAP BIPAP Do you snore loudly (louder than talking or can be heard Do you often feel tired/ fatigued/ sleepy during daytime? Has anyone observed you stop breathing during sleep? STOP Results QUESTION #5 FULL TEXT : Do you snore loudly (louder than talking or can be heard through closeddoors)? Tobacco Use History Tobacco Use History - house wirer: Tobacco Use History - house wirer Tobacco Use Smoking Status Former smoker 01/09/21 00:38 Hx Tobacco Use No 01/09/21 00:38 Years Smoking Packs Smoked per Day Smoking Cessation Date was within the last 15 years Hx Smoking Cessation Date Hx Smoking Cessation Counseling Hematologic Medial History Hematologic Hx - house wirer: Hematologic Medical Hx - legal service specialist Hx of Blood Transfusion Hx of Transfusion in last 3 Months Date of Last Transfusion (if within last 3 months) Ever experience any problems with transfusion(s)? Specify any problems Hx of Preganancy in last 3 Months Nurse Filling Out Transfusion & Questions: Date: Time: Patient unable to answer at this time (ie. 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 - house wirer: /Reproductive Hx- house wirer Hx Now Gestational Age (in weeks): EDC: [...] Medications ?Medication ?Instructions ?Recorded ?Last Taken ?Type oowachvt-yrs-Ny-FA 1 mg 1 tab PO DAILY pregna [...] no additional complaints, except as documented. 12/06/24 07 MD> Date _ Darryl Harvey MD Cosigner Signature: Date CC: ~ Signed [facility]08-31-2025 History and physical note Author Adina Krueger [facility] Note Date/Time December 05, 2024 1: 59pm [facility] Medical Records Department [address] [place] [address] OB Triage Physician Note 12/05/24 1333 MR#: [id number] Acct: [id number] Name: HILLARY FRAIRE Rep #:[id number] : 1990 34 From: Adina Krueger MD PCP: Dr. Chiki Gonzales MD Status:ADM I N Y Location: [place] [id number] HPI - General General Date of Admission: [...] Final BRITTANY: 01/14/25 Gestational age: 34 2/7 [facility] Medical History (Updated 12/05/24 @ 13:[address] Adina Krueger MD) Hydronephrosis Ureteropelvic junction calculus SROM (spontaneous rupture of membranes) Anxiety Home Medications ?Medication ?Instructions ?Recorded ?Last Taken ?Type hyyjnrmt-vjt-Yi-FA 1 mg 1 tab PO DAILY pregna [...] MD; Dr. Adina Krueger MD ~* Signed [facility] Work Phone: 1(399) 958-771708-31-2025 History and physical note [facility] Medical Records Department [address] [place] [address] OB Triage Physician Note 12/05/24 1333 MR#: [id number] Acct: [id number] Name: HILLARY FARIRE Rep #:[id number] : 1990 34 From: Adina Krueger MD PCP: Dr. Chiki Gonzales MD Status:ADM I N Y Location: [place] [address] HPI - General General Date of Admission: [...] BRITTANY: 01/14/25 Gestational age: 34 2/7 PFSH [facility] Medical History (Updated 12/05/24 @ 13:[address] Adina Krueger MD) Hydronephrosis Ureteropelvic junction calculus SROM (spontaneous rupture of membranes) Anxiety Home Medications ?Medication ?Instructions ?Recorded ?Last Taken ?Type uufrowjm-spw-Zu-FA 1 mg 1 tab PO DAILY pregna [...] MD; Dr. Adina Krueger MD ~* Signed [facility]08-31-2025 Consult note Author Latesha [facility] Note Date/Time December 05, 2024 9: 57am [facility] Medical Records Department [address] [place] [address] Consultation 12/05/24 0942 MR#: [id number] Acct: [id number] Name: HILLARY FRAIRE Rep #:[id number] : 1990 34 From: Latesha Geiger PCP: Dr. Chiki Gonzales MD Status:ADM I N Location: [place] [address] Assessment & Plan Assessment/Plan (1) Ureteropelvic junction [...] been given intravenous pain control. [facility] Medical History (Updated 12/05/24 @ 09:[address] Latesha Elena MD) Hydronephrosis Ureteropelvic junction calculus SROM (spontaneous rupture of membranes) Anxiety Home Medications ?Medication ?Instructions ?Recorded ?Last Taken ?Type nebeuiwq-hzp-Zy-FA 1 mg 1 tab PO DAILY pregna [...] Sl. Cloudy, Urine pH 7.0, Ur Specific [place] 1.015, Urine Protein 15 H, Urine Glucose [...] 81.3 H, Lymph % (Auto) 12.0 L, [place] % (Auto) 5.4, Eos % (Auto) 0.1, Baso % (Auto) 0.3, Absolute Neuts (auto) 11.2 H, Absolute Lymphs (auto) 1.65, Nucleated RBC % 0 12/04/24 15:54: Creatinine 1.00, Estim Creat Clear Calc 118.54, Est GFR (MDRD) Non-Af 76 Imaging Radiology Impression Abdomen/Pelvis CT 12/04/24 12:51 IMPRESSION: Obstructing stone left UPJ measuring 16 x 11 mm. Left-sided hydronephrosis. 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 Chiki Gonzales MD ~* Signed [facility] Work Phone: 1(359) 883-930408-31-2025 Consult note [facility] Medical Records Department [address] [place] [address] Consultation 12/05/2442 MR#: [id number] Acct: [id number] Name: HILLARY FRAIRE Rep #:[id number] : 1990 34 From: Latesha Geiger PCP: Dr. Chiki Gonzales MD Status:ADM I N Location: [place] [address] Assessment & Plan Assessment/Plan (1) Ureteropelvic junction [...] been given intravenous pain control. [facility] Medical History (Updated 12/05/24 @ 09:[address] Latesha Elena MD) Hydronephrosis Ureteropelvic junction calculus SROM (spontaneous rupture of membranes) Anxiety Home Medications ?Medication ?Instructions ?Recorded ?Last Taken ?Type xkvbwlfe-yzk-Tl-FA 1 mg 1 tab PO DAILY pregna [...] Sl. Cloudy, Urine pH 7.0, Ur Specific [place] 1.015, Urine Protein 15 H, Urine Glucose [...] 81.3 H, Lymph % (Auto) 12.0 L, [place] % (Auto) 5.4, Eos % (Auto) 0.1, Baso % (Auto) 0.3, Absolute Neuts (auto) 11.2 H, Absolute Lymphs (auto) 1.65, Nucleated RBC % 0 12/04/24 15:54: Creatinine 1.00, Estim Creat Clear Calc 118.54, Est GFR (MDRD) Non-Af 76 Imaging Radiology Impression Abdomen/Pelvis CT 12/04/24 12:51 IMPRESSION: Obstructing stone left UPJ measuring 16 x 11 mm. Left-sided hydronephrosis. 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 Chiki Gonzales MD ~* Signed [facility]08-31-2025 [facility] Medical Records Department [address] [place] [address] Consultation 12/05/24941 MR#: [id number] Acct: [id number] Name: HILLARY FRAIRE Rep #: [id number] : 1990 34 From: Latesha Elena MD PCP: Dr. Chiki Gonzales MD Status:ADM IN [id number] Assessment Plan Assessment/Plan (1) Ureteropelvic junction calculus: [...] been given intravenous pain control. [facility] Medical History (Updated 12/05/24 @ 09:[address] Latesha Elena MD) Hydronephrosis Ureteropelvic junction calculus SROM (spontaneous rupture of membranes) Anxiety Home Medications ???Medication ???Instructions ???Recorded ???Last Taken ???Type oxqlqdec-tev-Wu-FA 1 mg 1 tab PO DAILY 01/08/21 [...] inspection and trachea (more content not included)... [facility]08-30-2025 Evaluation note* Diagnosis Onset Date Resolution [...] hypertension affecti ng chronic December 04 5:00pm [facility] Work Phone: 1(488) 246-547408-30-2025 Evaluation note* Diagnosis Onset Date Resolution Status [...] 5:00pm 34 weeks gestation of acute December 07, 025 12:45am Flank pain, acute acute 2024 12:45am High risk multigravida in third trimester acute December 07, 025 12:45am Hydronephrosis acute December 07, 2024 12:45am Pyelonephritis affecting acute December 07, 025 12:45am Recurrent UTI (urinary tract infection) complicating acute December 07, 025 12:45am Ureteropelvic junction calculus acute December 07, 025 12:45am Chronic hypertension affecti ng chronic December 07 025 12:45am [facility] Work Phone: 1(358) 199-111808-30-2025 Evaluation note* Diagnosis Onset Date Resolution Status [...] 5:00pm 34 weeks gestation of acute December 07, 12:45am Flank pain, acute acute 2024 12:45am High risk multigravida in third trimester acute December 07, 025 12:45am Hydronephrosis acute December 07, 2024 12:45am Pyelonephritis affecting acute December 07, 025 12:45am Recurrent UTI (urinary tract infection) complicating acute December 07, 025 12:45am Ureteropelvic junction calculus acute December 07, 025 12:45am Chronic hypertension affecti ng chronic December 07, 025 12:45am Hydronephrosis acute December 08, 2024 5:47am Recurrent UTI (urinary tract infection) complicating acute December 08, 025 5:47am Ureteropelvic junction calculus acute December 08, 025 5:47am [facility] Work Phone: 1(444) 771-569908-30-2025 History and physical note Author Sheyla Moreno [facility] Note Date/Time December 04, 2024 12 :48pm [facility] Medical Records Department [address] [place] [address] OB Triage Physician Note 12/04/24 1131 MR#: [id number] Acct: [id number] Name: HILLARY FRAIRE Rep #:[id number] : 1990 34 From: Sheyla ZAVALETA PCP: Dr. Chiki Gonzales MD Status:ZEE Murillo Location: [place] [id number] HPI - General General Date of Service: [...] prophylaxis. Maternal Data Information Final BRITTANY: 01/14/25 [facility] Medical History (Updated 12/04/24 @ 12:46 by Sheyla Moreno CNM) SROM (spontaneous rupture of membranes) Anxiety Home Medications ?Medication ?Instructions ?Recorded ?Last Taken ?Type dzceezwe-rmb-Gh-FA 1 mg 1 tab PO DAILY pregna [...] but likely Bactrim for further prophylaxis 5) [facility] physician and notified of patient status above assessment and plan of care. 12/04/24 1248 <Electronically signed by Sheyla Moreno CNM> Date _ Sheyla Moreno CNM Cosigner Signature (if applicable): Date CC: CARLOS Moreno; Dr. Chiki Gonzales MD ~ Signed [facility] Work Phone: 1(151) 735-713908-30-2025 Radiology Diagnostic study note [facility] Imaging Services [address] [place] [address] [id number] Abdomen/Pelvis without Cont MR#: [id number] Acct: [id number] Name: HILLARY FRAIRE Rep #: [id number] : 1990 F 34 From: Kat Paige MD PCP: Dr. Chiki Gonzales MD Status: REG Rob KONG Study:Abdomen/Pelvis without Cont Date of Exa m: 12/04/24 Exam# [id number] Ordering Dr: Ruben Moreno CNM PROCEDURE: ABDOMEN/PELVIS [...] x 11 mm. Left-sided hydronephrosis. Reading [facility] CC: CARLOS Moreno; Dr. Chiki Gonzales MD ~ Dental Technician Instructor: Signed [facility]08-30-2025 History and physical note [facility] Medical Records Department [address] [place] [address] OB Triage Physician Note 12/04/24 1131 MR#: [id number] Acct: [id number] Name: HILLARY FRAIRE Rep #:[id number] : 1990 34 From: Sheyla ZAVALETA PCP: Dr. Chiki Gonzales MD Status:REG Rob KONG Y Location: [place]542-7 HPI - General General Date of Service: [...] prophylaxis. Maternal Data Information Final BRITTANY: 01/14/[facility] Medical History (Updated 12/04/24 @ 12:46 by Sheyla Moreno CNM) SROM (spontaneous rupture of membranes) Anxiety Home Medications ?Medication ?Instructions ?Recorded ?Last Taken ?Type hiahembb-qul-Qo-FA 1 mg 1 tab PO DAILY pregna [...] but likely Bactrim for further prophylaxis 5) [facility] physician and notified of patient status above assessment and plan of care. 12/04/24 1248 CNM> Date _ Sheyla Moreno CNM Cosigner Signature (if applicable): Date CC: [facility] Sheyla Moreno; Dr. Chiki Gonzales MD ~ Signed [facility]08-30-2025 Telephone encounter Note* Telephone Encounter - Amisha Alberto MD - 12/04/2024 10:16 AM EDT Telephone Encounter Hillary Fraire [id number] Provider: Dr. Baltazar Patient identity verified by name and . Hillary Fraire is a 34 year old at 34w1d. Attempted to call patient x3 regarding pain, sent to voicemail. Voicemail is full, unable to leave message. Amisha Alberto MD [facility] Work Phone: 1(125) 599-238808-30-2025 Miscellaneous Notes* Telephone Encounter - Amisha Alberto MD - 12/04/2024 10:16 AM EDT Telephone Encounter Hillary Fraire [id number] Provider: Dr. Baltazar Patient identity verified by name and . Hillary Fraire is a 34 year old at 34w1d. Attempted to call patient x3 regarding pain, sent to voicemail. Voicemail is full, unable to leave message. Amisha Alberto MD documented [facility]08[facility]2025 Progress note* Quick Notes - Sheyla [...] weeks Sheyla Moreno APRN.CNM [facility]08-25-2025 Miscellaneous Notes* Quick Notes - Sheyla Moreno APRN.CNM - 11/29/2024 8:12 AM EDT MARITZAS: Hillary Fraire is a 34 year old [...] weeks Sheyla Moreno APRN.CNM documented in this encounterMer[facility]08[facility]2025 Note Indication Evaluation of growth Maternal [...] 3 oz EFW by: Hadlock (HC-AC-FL) Extended Barrel Raiser Helper 6.0 mm Extremities / Bony Struc FL [...] RDMS, RVT Read By: Terra Esparza M.D.MATERNAL [id number] Instructions* Patient Instructions* Maurilio Penn LPN - 11/26/2024 10:50 AM EDT SEQUENTIAL SCREENINGS The [facility] offers sequential screenings for women who [...] testing. It will require an appointment withour automotive refinish technician. This is not an ultrasound performed [...] the above symptoms, contact our office at [phone] and ask to speak with anurse. After hours, you can call doctors registry at [phone] OR call [facility] at [phone] ask to have the doctor honey producer paged. If you consider this an emergency, dial 9-3 or go to your nearest emergency department. NEED HELP? Are you dealing with a violent or abusive relationship? Are you a victim of rape or sexual assult? Call [facility] ([place]) 24 hour Crisis Hotline: 379.168.3314 or 105-377-5157. MANUAL Your Guide to a Healthy manual is now on-line. Visit [email or web address] to download your free copy documented in this encounterMer[facility]08-04-2025 NoteHNO ID: [id number] Author: KELLY BALTAZAR MD Service: ? Author [...] Dr. Gaytan - RTO 2 wks Kelly Baltazar, [facility]07-[facility]-2025 Telephone encounter Note* Telephone Encounter - Staci Ho RN - 10/29/2024 3:26 PM EDT Faxed. Staci Ho RN [facility]07-25-2025 Miscellaneous Notes* Telephone Encounter - Staci Ho RN - 10/29/2024 3:26 PM EDT Faxed. Staci Ho RN * Telephone Encounter - Karina Severino RN - 10/29/2024 10:35 AM EDT Breast pump order received from [address] To SW to sign. Karina Sveerino RN documented in this encounterMer[facility]07-25-2025 Telephone encounter Note * Telephone Encounter - Karina Severino RN - 10/29/2024 10:35 AM EDT Breast pump order received from [address] To SW to sign. Karina Severino RN [facility]07-22-2025 Telephone encounter Note* Telephone Encounter - Galilea Abraham MD - 10/26/2024 4:20 PM EDT Mild anemia so she should start an OTC iron supplement every other day. Galilea Abraham MD [facility] Work Phone: 1(326) 267-747007-22-2025 Miscellaneous Notes* Telephone Encounter - Galilea Abraham MD - 10/26/2024 4:20 PM EDT Mild anemia so she should start an OTC iron supplement every other day. Galilea Abraham MD documented in this encounterMer[facility]07-21-2025 NoteHNO ID: [id number] Author: KELLY BALTAZAR MD Service: ? Author [...] 4 wks - RTO 2 wks ANDI EscalanteCinc[facility]07-21-2025 History of Present illness Narrative* [...] wks Kelly Baltazar DO documented in this encounterMercy Health St. [facility]07-21-2025 Note Indication Evaluation of growth, Follow-up [...] 13 oz EFW by: Hadlock (HC-AC-FL) Extended Barrel Raiser Helper 6.6 mm Extremities / Bony Struc FL / HC 0.20 Other Structures FHR 148 bpm Anatomy Lateral ventricles: normal Cavum septi pellucidi: normal Cerebellum: normal Cisterna magna: normal Head / Neck Vermis: normal Lips: normal Profile: normal Nose: normal Face Maxilla: normal Mandible: normal 4-chamber view: normal RVOT view: normal LVOT view: normal 3-vessel view: normal 8-mqtqov-gcndmla view: normal Heart / Thorax Situs: situs solitus (normal) Aortic arch view: normal Diaphragm: normal Stomach: normal Kidneys: normal Bladder: normal Wants to know sex: yes Performed By: Janene Pinto RDMS Read By: Marbella Mcgee M.D.MATERNAL [id number] Progress note* Quick Notes - Adina Krueger [...] of high risk in second trimester (HCC) f/u in 4 weeks, 28 week labs next visit Orders: BACTERIAL CULTURE, URINE Chronic hypertension in ([facility]) checks BP at homew Orders: BACTERIAL CULTURE, URINE 24 weeks gestation of ([facility]) Orders: BACTERIAL CULTURE, URINE Adina Krueger M.D. [facility]06-23-2025 Miscellaneous Notes* Quick Notes - Adina [...] Supervision of high risk in second trimester ([facility]) f/u in 4 weeks, 28 week labs next visit Orders: BACTERIAL CULTURE, URINE Chronic hypertension in ([facility]) checks BP at homew Orders: BACTERIAL CULTURE, URINE 24 weeks gestation of ([facility]) Orders: BACTERIAL CULTURE, URINE Adina Krueger M.D. documented in this encounterMercy Health [facility]06-23-2025 Instructions* Patient Instructions* Bella Dinero MA - 09/27/2024 3:12 PM EDT Oral Glucose Tolerance Test During Your provider has ordered an oral glucose tolerance test. For more information: [facility] How do I [...] and is not advised. documented in this encounterMercy Health St. [facility]06-03-2025 Telephone encounter Note * Telephone Encounter - Elli Knight MD - 09/07/2024 1:15 PM EDT Noted- ordered. I also ordered her prophylaxis assuming this abx will work. (One pill daily for remainder of ) [facility]06-03-2025 Miscellaneous Notes* Telephone Encounter - Elli Knight MD - 09/07/2024 1:15 PM EDT Noted- [...] Ho RN * Telephone Encounter - Elli Knight MD - 09/07/2024 8:07 AM EDT Please [...] whole rounds of abx? documented in this encounterMer[facility]06-03-2025 Telephone encounter Note * Telephone Encounter - Staci Ho RN - 09/07/2024 10:16 AM EDT See Pt's [employer] message---Would like to try same antibiotic and retest urine on Friday post antibiotic completion. Antibiotic pending along with UA and repeat urine culture if appropriate. Please advise and will contact Pt. Staci Ho RN [facility]06-03-2025 Telephone encounter Note* Telephone Encounter - Elli Knight MD - 09/07/2024 8:07 AM EDT Please [...] she finishing the whole rounds of abx? [facility]05-30-2025 Progress note* Quick Notes - Elli Knight MD - 09/03/2024 2:30 PM EDT DM-Pt doing well. Denies vaginal Bleeding, Leaking fluid, or regular Contractions. Pt reports good movement Physical Exam: Gen: female in no apparent distress Abd: soft, Gravid. Non tender to palpation. See flow sheet @ 21 weeks Assessment & Plan Supervision of high risk in second trimester ([facility]) Orders: BACTERIAL CULTURE, URINE UA DIP, URINE (POC) Chronic hypertension in ([facility]) Growth us starting 28 weeks Orders: OBSTETRIC ULTRASOUND WHI; Standing Obesity in ([facility]) NSTs and growth History of pre-eclampsia Continue ASA Orders: BACTERIAL CULTURE, URINE UTI (urinary tract infection) in , antepartum ([facility]) WALKER today- did show nitrates on dip. May consider Prophylactic treatment remainder of - will await culture. Orders: BACTERIAL CULTURE, URINE UA DIP, URINE (POC) 21 weeks gestation of ([facility]) RTO 4 wks Orders: BACTERIAL CULTURE, URINE OBSTETRIC ULTRASOUND WHI; Standing Elli Lopez MD [facility]05-30-2025 Miscellaneous Notes* Quick Notes - Elli Knight MD - 09/03/2024 2:30 PM EDT DM-Pt doing well. Denies vaginal Bleeding, Leaking fluid, or regular Contractions. Pt reports good movement Physical Exam: Gen: female in no apparent distress Abd: soft, Gravid. Non tender to palpation. See flow sheet @ 21 weeks Assessment & Plan Supervision of high risk in second trimester ([facility]) Orders: BACTERIAL CULTURE, URINE UA DIP, URINE (POC) Chronic hypertension in ([facility]) Growth us starting 28 weeks Orders: OBSTETRIC ULTRASOUND WHI; Standing Obesity in ([facility]) NSTs and growth History of pre-eclampsia Continue ASA Orders: BACTERIAL CULTURE, URINE UTI (urinary tract infection) in , antepartum ([facility]) WALKER today- did show nitrates on dip. May consider Prophylactic treatment remainder of - will await culture. Orders: BACTERIAL CULTURE, URINE UA DIP, URINE (POC) 21 weeks gestation of ([facility]) RTO 4 wks Orders: BACTERIAL CULTURE, URINE OBSTETRIC ULTRASOUND WHI; Standing Elli Lopez MD documented in this encounterMer[facility] Instructions* Patient Instructions* Bella Dinero MA - 09/03/2024 1:53 PM EDT SEQUENTIAL SCREENINGS The [facility] offers sequential screenings for women who [...] testing. It will require an appointment withour automotive refinish technician. This is not an ultrasound performed [...] the above symptoms, contact our office at [phone] and ask to speak with anurse. After hours, you can call doctors registry at [phone] OR call [facility] at [phone] ask to have the doctor honey producer paged. If you consider this an emergency, dial 9-1-1 or go to your nearest emergency department. NEED HELP? Are you dealing with a violent or abusive relationship? Are you a victim of rape or sexual assult? Call [facility] ([place]) 24 hour Crisis Hotline: 881.245.1471 or 198-267-7893. MANUAL Your Guide to a Healthy manual is now on-line. Visit [email or web address] to download your free copy documented in this encounterMer[facility]04-30-2025 Telephone encounter Note * Telephone Encounter - Karina Severino RN - 08/04/2024 10:58 AM EDT Patient notified. Karina Severino RN [facility]04-30-2025 Miscellaneous Notes* Telephone Encounter - Karina Severino RN - 08/04/2024 10:58 AM EDT Patient notified. Karina Severino RN * Telephone Encounter - Radha Hammer APRN.CNP - 08/04/2024 10:50 AM EDT Please notify patient: + UTI Rx for Macrobid sent Push fluids To notify or go to ER with back pain, fever, chills Radha Hammer APRN.MIKE documented in this encounterMer[facility]04-30-2025 Telephone encounter Note * Telephone Encounter - Radha Hammer APRN.CNP - 08/04/2024 10:50 AM EDT Please notify patient: + UTI Rx for Macrobid sent Push fluids To notify or go to ER with back pain, fever, chills Radha Hammer APRN.MIKE [facility]04-28-2025 Progress note* Quick Notes - Polly [...] ASSESSMENT/PLAN: 1. , supervision, high-risk, unspecified trimester ([facility]) - ICD9: V23.9, ICD10: O09.90 (primary diagnosis) 2. BMI 38.0-38.9,adult - ICD9: V85.38, ICD10: Z68.38 3. 16 weeks gestation of ([facility]) - ICD9: V22.2, ICD10: Z3A.16 4. UTI (urinary tract infection) in , antepartum ([facility]) - ICD9: 646.63, 599.0, ICD10: O23.40 - BACTERIAL CULTURE, URINE Polly Hamilton MD [facility]04-28-2025 Miscellaneous Notes* Quick Notes - Polly [...] ICD10: Z68.38 3. 16 weeks gestation of ([facility]) - ICD9: V22.2, ICD10: Z3A.16 4. UTI (urinary tract infection) in , antepartum ([facility]) - ICD9: 646.63, 599.0, ICD10: O23.40 - BACTERIAL CULTURE, URINE Polly Hamilton MD documented in this encounterMercy Health St. [facility]04-28-2025 Instructions* Patient Instructions* Michelle Drake MA - 08/02/2024 3:05 PM EDT SEQUENTIAL SCREENINGS The [facility] offers sequential screenings for women who [...] testing. It will require an appointment withour automotive refinish technician. This is not an ultrasound performed [...] the above symptoms, contact our office at [phone] and ask to speak with anurse. After hours, you can call doctors registry at [phone] OR call [facility] at [phone] ask to have the doctor honey producer paged. If you consider this an emergency, dial 9--9 or go to your nearest emergency department. NEED HELP? Are you dealing with a violent or abusive relationship? Are you a victim of rape or sexual assult? Call [facility] ([place]) 24 hour Crisis Hotline: 151.191.2207 or 654-147-8757. MANUAL Your Guide to a Healthy manual is now on-line. Visit [email or web address] to download your free copy documented in this encounterMer[facility]04-03-2025 Telephone encounter Note * Telephone Encounter - Kelly Baltzaar MD - 07/08/2024 8:24 AM EDT See result note Keflex sent in for +urine cx [facility]04-03-2025 Miscellaneous Notes* Telephone Encounter - Kelly Baltazar MD - 07/08/2024 8:24 AM EDT See result note Keflex sent in for +urine cx documented in this encounterMercy [facility] St. [facility]03-31-2025 Progress note* Quick Notes - Kelly [...] wks Kelly Baltazar DO [facility]03-31-2025 Miscellaneous Notes* Quick Notes - Kelly [...] wks Kelly Baltazar DO documented in this encounterMercy Health St. [facility]03-31-2025 Instructions* Patient Instructions* Lizzie Kern MA - 07/05/2024 3:11 PM EDT SEQUENTIAL SCREENINGS The [facility] offers sequential screenings for women who [...] testing. It will require an appointment withour automotive refinish technician. This is not an ultrasound performed [...] the above symptoms, contact our office at [phone] and ask to speak with anurse. After hours, you can call doctors registry at [phone] OR call [facility] at [phone] ask to have the doctor honey producer paged. If you consider this an emergency, dial or go to your nearest emergency department. NEED HELP? Are you dealing with a violent or abusive relationship? Are you a victim of rape or sexual assult? Call [facility] ([place]) 24 hour Crisis Hotline: 694.303.8470 or 759-412-9609. MANUAL Your Guide to a Healthy manual is now on-line. Visit [email or web address] to download your free copy documented in this encounterMer[facility]03-05-2025 Telephone encounter Note * Telephone Encounter - Radha Hammer APRN.CNP - 06/09/2024 8:47 AM EST Please notify patient: + UTI Push fluids Rx for Macrobid sent To notify if symptoms worsening or not improving Radha Hammer APRN.CNP [facility]03-05-2025 Miscellaneous Notes* Telephone Encounter - Radha Hammer APRN.CNP - 06/09/2024 8:47 AM EST Please notify patient: + UTI Push fluids Rx for Macrobid sent To notify if symptoms worsening or not improving Radha Hammer APRN.CNP documented in this encounterMercy Health St. [facility]03-03-2025 Instructions* Patient Instructions* Liz Mckeon LPN - 06/07/2024 1:59 PM EST Please select the following link to access the [facility] Your Guide to a Healthy . [email or web address] documented in this encounterMercy Health St. [facility]03-03-2025 NoteHNO ID: [id number] Author: LEANNE AQUINO APRN.WOOD BUCKER Service: ? Author Type: Nurse Practitioner Type: Progress Notes Filed: 06/07/2024 15:57 Note Text: Patient declined homicide squad commanding officer. *Patient has a history of preeclampsia with [...] OB Risk Screening: Comp (more content not included)...[facility] 06-07-2024 History of Present illness Narrative* Leanne Aquino APRN.[facility] - 06/07/2024 1:45 PM EST Patient declined homicide squad commanding officer. 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 As applicable, any other physician, advance practice provider, medical student, or other health professional student that will be observing or involved in the sensitive examination for educational or training purposes was discussed with the Patient or Authorized Flat Drier. The Patient or Authorized Flat Drier has agreed to proceed with the sensitive [...] activity, CRL consistent with LMP. Leanne Aquino APRN.WOOD BUCKER SBIRT Hillary Fraire was given the 4P's [...] Your guide to a health and the Wire Fence Erector. Reviewed midwifery and polisher hand services that are available. 2) Screening: Hemoglobin [...] prn. Leanne Aquino APRN.CNP documented in this encounterMercy Health St. [facility]02-17-2025 Instructions* Patient Instructions* Crissy Tom APRN.[facility] - 05/24/2024 8:10 AM EST As you may already know, morning sickness can often be more appropriately called evening sickness or umpev-jwnemt-hq-the-day sickness. While there are the paulino few, [...] medication, Doxylamine, is currently marketed as an aord-ivl-rntrrap sleeping pill. Ask your practitioner if creating a vitamin B6/Doxylaminecombination with yeli-jzo-gkguxvd medications would be safe for you. Prescription [...] as Phenergan, Compazine, Reglan documented in this encounterMercy Health St. [facility]02-17-2025 NoteHNO ID: [id number] Author: CRISSY TOM APRN.CNM Service: ? Author Type: Psychology Technician Type: Progress Notes Filed: 05/24/2024 10:23 Note [...] Living1 SAB0 IAB0 Ectopic0 Multiple0 Live Births1 Reservations Sales Supervisor History LMP: 03/31/2023 (Exact Date), Having periods Age at Menarche: Age at First : Age at Menopause: Reservations Sales Supervisor History Comments: Sexual Activity: Yes; Male Contraception: Pill PAST MEDICAL HISTORY Diagnosis Date #[id number] Anemia during in third trimester 11/15/2020 fracture [...] discussed with the Patient or Patient's Authorized Flat Drier. As applicable, any other physician, advance practice provider, medical student, or other health professional student that will be observing or involved in the sensitive examination for educational or training purposes was discussed with the Patient or Authorized Flat Drier. The Patient or Authorized Flat Drier has agreed to proceed with the sensitive [...] RTO 2 weeks for NOB Crissy Tom APRN.[facility]02-17-2025 History of Present illness Narrative* Crissy Tom APRN.[facility] - 05/24/2024 7:53 AM EST Hillary Fraire [...] Living1 SAB0 IAB0 Ectopic0 Multiple0 Live Births1 Reservations Sales Supervisor History LMP: 03/31/2023 (Exact Date), Having periods Age at Menarche: Age at First : Age at Menopause: Reservations Sales Supervisor History Comments: Sexual Activity: Yes; Male Contraception: Pill PAST MEDICAL HISTORY Diagnosis Date #[id number] Anemia during in third trimester 11/15/2020 fracture [...] discussed with the Patient or Patient's Authorized Flat Drier. As applicable, any other physician, advance practice provider, medical student, or other health professional student that will be observing or involved in the sensitive examination for educational or training purposes was discussed with the Patient or Authorized Flat Drier. The Patient or Authorized Flat Drier has agreed to proceed with the sensitive [...] NOB Crissy Tom APRN.CNM documented in this encounterMercy Health St. [facility]02-05-2025 Telephone encounter Note * Telephone Encounter - Polly Peace RN - 05/12/2024 11:29 AM EST LMP 1/3 Approximately [address] [facility]02-05-2025 Miscellaneous Notes* Telephone Encounter - Polly Peace RN - 05/12/2024 11:29 AM EST LMP 1/3 Approximately 4w5d documented in this encounterMer[facility]. [facility]11-29-2023 Miscellaneous Notes* Telephone Encounter - Sheyla [...] you, Sheyla Moreno APRN.CNM documented in this encounterMercy Health St. [facility]10-16-2023 Miscellaneous Notes* Telephone Encounter - Abram Sim RN - 01/20/2023 11:12 AM EDT Patient aware she needs to schedule annual exam. Requested Prescriptions Pending Prescriptions Disp Refills Norethindrone, Contraceptive, (JENCYCLA) 0.35 mg tablet 90 tablet 0 Sig: Take 1 tablet by mouth once daily. ABRAM SIM RN documented in this encounterMercy Health St. [facility]11-25-2022 Miscellaneous Notes* Telephone Encounter - Pavithra James LPN - 03/01/2022 4:34 PM EST Pt notified. Pavithra James LPN * Telephone Encounter - Sheyla Moreno APRN.CNM - 03/01/2022 4:28 PM EST Please refer to medication list safety in for patient. Sheyla Moreno APRN.CNM * Telephone Encounter - Pavithra James LPN - 03/01/2022 9:20 AM EST Please see pt's mychart message and further advise. Pavithra James LPN documented in this encounterMercy Health St. [facility]11-10-2022 Miscellaneous Notes* Telephone Encounter - Sheyla Moreno APRN.CNM - 02/14/2022 10:05 AM EST [employer] message sent to patient in results. Sheyla Moreno APRN.CNM documented in this encounterMercy Health St. [facility]11-07-2022 History of Present illness Narrative* Sheyla [...] L1 SAB0 IAB0 Ectopic0 Multiple0 Live Births1 Reservations Sales Supervisor History LMP: 02/06/2022 (Exact Date), Unknown Age at Menarche: Age at First : Age at Menopause: Reservations Sales Supervisor History Comments: Sexual Activity: Yes; Male Contraception: Pill PAST MEDICAL HISTORY Diagnosis Date #[id number] Anemia during in third trimester 11/15/2020 fracture [...] external genitalia normal, normal Bartholin's glands, urethra, [employer]'s glands, no vulvar lesions, no cervical lesions, [...] needed Sheyla Moreno APRN.CNM documented in this encounterMercy Health St. [facility]10-24-2022 Miscellaneous Notes* Addendum Note - Kelly [...] Severino RN * Telephone Encounter - Zena Rowley - 01/28/2022 9:21 AM EDT Patient has [...] advise. Zena Villanueva Pss documented in this encounterMercy Health St. [facility]10-11-2022 Miscellaneous Notes* Telephone Encounter - Eden Lovett RN - 01/15/2022 10:03 AM EDT Refill request received from pharmacy for patients OCP. Patient last seen in office on 02/20/21 forpostpartum exam. PSS: Please contact patient to schedule annual exam. Eden Lovett RN documented in this encounterMercy Health St. [facility]08-11-2021 History of Past illness Narrative* Problem [...] (statuses as of 01/15/2022) [facility]08-[facility] History of Past illness Narrative* Problem [...] (statuses as of 01/28/2022) [facility]08-[facility] History of Past illness Narrative* Problem [...] (statuses as of 01/28/2022) [facility]08-[facility] History of Past illness Narrative* Problem [...] (statuses as of 02/11/2022) [facility]08-[facility] History of Past illness Narrative* Problem [...] (statuses as of 02/11/2022) [facility] History of Past illness Narrative* Problem [...] (statuses as of 02/14/2022) [facility]08-[facility] History of Past illness Narrative* Problem [...] (statuses as of 03/01/2022) [facility] History of Past illness Narrative* Problem [...] (statuses as of 01/20/2023) [facility] History of Past illness Narrative* Problem [...] (statuses as of 03/05/2023) [facility]* Diagnosis Encounter for surveillance of contraceptive pills- Primary Surveillance of previously prescribed contraceptive pill documented in this encounter [facility]* Diagnosis Encounter for gynecological examination (general) (routine) without abnormal findings- Primary Malaise and fatigue Other malaise and fatigue Encounter for surveillance of contraceptive pills Surveillance of previously prescribed contraceptive pill documented in this encounter [facility] [place] [facility]* Diagnosis Encounter for surveillance of contraceptive pills Surveillance of previously prescribed contraceptive pill documented in this encounter [facility]* Diagnosis Missed menses- Primary Absence of menstruation 6 weeks gestation of state, incidental Spotting in early Spotting complicating , antepartum condition or complication Obesity affecting in first trimester, unspecified obesity type Nausea Nausea alone * Assessment & Plan Note - Crissy Tom APRN.SAMANTHAM - 05/24/2024 8:58 AM EST Associated Problem(s): Spotting in early * Assessment & Plan Note - Crissy Tom APRN.CNM - 05/24/2024 8:58 AM EST Associated Problem(s): Obesity affecting in first trimester documented in this encounter [facility] note* Diagnosis Missed menses- Primary Absence [...] high-risk, unspecified trimester documented in this encounter [facility] note* Diagnosis Missed menses- Primary Absence of menstruation 6 weeks gestation of state, incidental Spotting in early Spotting complicating , antepartum condition or complication Obesity affecting in first trimester, unspecified obesity type Nausea Nausea alone UTI (urinary tract infection) in , antepartum- Primary Infections of genitourinary tract antepartum documented in this encounter [facility] note* Diagnosis Missed menses- Primary Absence of menstruation 6 weeks gestation of (HCC) state, incidental Spotting in early (HCC) Spotting complicating , antepartum condition or complication Obesity affecting in first trimester, unspecified obesity type (HCC) Nausea Nausea alone , supervision, high-risk, unspecified trimester (HCC)- Primary 12 weeks gestation of (HCC) state, incidental UTI (urinary tract infection) in , antepartum (HCC) Infections of genitourinary tract antepartum Elevated LFTs Other abnormal blood chemistry documented in this encounter [facility] note* Diagnosis Missed menses- Primary Absence of menstruation 6 weeks gestation of ([facility]) state, incidental Spotting in early (HCC) Spotting complicating , antepartum condition or complication Obesity affecting in first trimester, unspecified obesity type ([facility]) Nausea Nausea alone Bacteria in urine- Primary Other nonspecific finding on examination of urine documented in this encounter [facility] note* Diagnosis Missed menses- Primary Absence of menstruation 6 weeks gestation of ([facility]) state, incidental Spotting in early (HCC) Spotting complicating , antepartum condition or complication Obesity affecting in first trimester, unspecified obesity type ([facility]) Nausea Nausea alone 8 weeks gestation of ([facility]) state, incidental documented in this encounter [facility] note* Diagnosis Missed menses- Primary Absence of menstruation 6 weeks gestation of ([facility]) state, incidental Spotting in early ([facility]) Spotting complicating , antepartum condition or complication Obesity affecting in first trimester, unspecified obesity type ([facility]) Nausea Nausea alone , supervision, high-risk, unspecified trimester ([facility])- Primary BMI 38.0-38.9,adult Body Mass Index 38.0-38.9, adult 16 weeks gestation of ([facility]) state, incidental UTI (urinary tract infection) in , antepartum ([facility]) Infections of genitourinary tract antepartum documented in this encounter [facility] note* Diagnosis Missed menses- Primary Absence of menstruation 6 weeks gestation of ([facility]) state, incidental Spotting in early ([facility]) Spotting complicating , antepartum condition or complication Obesity affecting in first trimester, unspecified obesity type ([facility]) Nausea Nausea alone UTI (urinary tract infection) in , antepartum ([facility])- Primary Infections of genitourinary tract antepartum documented in this encounter [facility] note* Diagnosis Missed menses- Primary Absence of menstruation 6 weeks gestation of ([facility]) state, incidental Spotting in early ([facility]) Spotting complicating , antepartum condition or complication Obesity affecting in first trimester, unspecified obesity type ([facility]) Nausea Nausea alone Supervision of high risk in second trimester ([facility])- Primary Unspecified high-risk Chronic hypertension in ([facility]) Benign essential hypertension complicating , childbirth, and the puerperium, unspecified as to episode of care Obesity in (HCC) Obesity complicating , childbirth, or the puerperium, unspecified as to episode of care or not applicable History of pre-eclampsia UTI (urinary tract infection) in , antepartum (HCC) Infections of genitourinary tract antepartum 21 weeks gestation of (HCC) state, incidental * Assessment & Plan Note - Elli Knight MD - 09/03/2024 3:33 PM EDT Associated Problem(s): Obesity in (HCC) NSTs and growth * Assessment & Plan Note - Elli Knight MD - 09/03/2024 3:33 PM EDT Associated Problem(s): Chronic hypertension in (HCC) Growth us starting 28 weeks Orders: OBSTETRIC ULTRASOUND WHI; Standing * Assessment & Plan Note - Elli Knight MD - 09/03/2024 3:28 PM EDT Associated Problem(s): History of pre-eclampsia Continue ASA Orders: BACTERIAL CULTURE, URINE * Assessment & Plan Note - Elli Knight MD - 09/03/2024 3:28 PM EDT Associated Problem(s): UTI (urinary tract infection) in , antepartum (HCC) WALKER today- did show nitrates on dip. May consider Prophylactic treatment remainder of - will await culture. Orders: BACTERIAL CULTURE, URINE UA DIP, URINE (POC) documented in this encounter [facility] note* Diagnosis Missed menses- Primary Absence of menstruation 6 weeks gestation of (HCC) state, incidental Spotting in early (HCC) Spotting complicating , antepartum condition or complication Obesity affecting in first trimester, unspecified obesity type ([facility]) Nausea Nausea alone Encounter for anatomic survey ([facility])- Primary Encounter for anatomic survey 8 weeks gestation of ([facility]) state, incidental Obesity affecting in second trimester, unspecified obesity type ([facility]) Supervision of high risk in second trimester ([facility])- Primary Unspecified high-risk Chronic hypertension in ([facility]) Benign essential hypertension complicating , childbirth, and the puerperium, unspecified as to episode of care Obesity in ([facility]) Obesity complicating , childbirth, or the puerperium, unspecified as to episode of care or not applicable History of pre-eclampsia UTI (urinary tract infection) in , antepartum ([facility]) Infections of genitourinary tract antepartum 21 weeks gestation of ([facility]) state, incidental documented in this encounter [facility] note* Diagnosis Missed menses- Primary Absence of menstruation 6 weeks gestation of ([facility]) state, incidental Spotting in early (HCC) Spotting complicating , antepartum condition or complication Obesity affecting in first trimester, unspecified obesity type ([facility]) Nausea Nausea alone Supervision of high risk in second trimester ([facility])- Primary Unspecified high-risk Chronic hypertension in ([facility]) Benign essential hypertension complicating , childbirth, and the puerperium, unspecified as to episode of care Obesity in ([facility]) Obesity complicating , childbirth, or the puerperium, unspecified as to episode of care or not applicable History of pre-eclampsia UTI (urinary tract infection) in , antepartum (HCC) Infections of genitourinary tract antepartum 21 weeks gestation of ([facility]) state, incidental UTI (urinary tract infection) in , antepartum ([facility]) Infections of genitourinary tract antepartum [facility] [place] [facility]* Diagnosis Missed menses- Primary Absence of menstruation 6 weeks gestation of ([facility]) state, incidental Spotting in early ([facility]) Spotting complicating , antepartum condition or complication Obesity affecting in first trimester, unspecified obesity type ([facility]) Nausea Nausea alone Supervision of high risk in second trimester ([facility])- Primary Unspecified high-risk Chronic hypertension in ([facility]) Benign essential hypertension complicating , childbirth, and the puerperium, unspecified as to episode of care Obesity in ([facility]) Obesity complicating , childbirth, or the puerperium, unspecified as to episode of care or not applicable History of pre-eclampsia UTI (urinary tract infection) in , antepartum ([facility]) Infections of genitourinary tract antepartum 21 weeks gestation of ([facility]) state, incidental Supervision of high risk in second trimester ([facility])- Primary Unspecified high-risk UTI (urinary tract infection) in , antepartum ([facility]) Infections of genitourinary tract antepartum Chronic hypertension in ([facility]) Benign essential hypertension complicating , childbirth, and the puerperium, unspecified as to episode of care 24 weeks gestation of ([facility]) state, incidental * Assessment & Plan Note - Adina Krueger MD - 09/27/2024 3:44 PM EDT Associated Problem(s): UTI (urinary tract infection) in , antepartum ([facility]) just finished antiobiotics Orders: BACTERIAL CULTURE, URINE * Assessment & Plan Note - Adina Krueger MD - 09/27/2024 3:44 PM EDT Associated Problem(s): Chronic hypertension in ([facility]) checks BP at homew Orders: BACTERIAL CULTURE, URINE documented in this encounter [facility] note* Diagnosis Missed menses- Primary Absence of menstruation 6 weeks gestation of ([facility]) state, incidental Spotting in early (HCC) Spotting complicating , antepartum condition or complication Obesity affecting in first trimester, unspecified obesity type ([facility]) Nausea Nausea alone Supervision of high risk in second trimester ([facility])- Primary Unspecified high-risk Chronic hypertension in (HCC) Benign essential hypertension complicating , childbirth, and the puerperium, unspecified as to episode of care Obesity in (HCC) Obesity complicating , childbirth, or the puerperium, unspecified as to episode of care or not applicable History of pre-eclampsia UTI (urinary tract infection) in , antepartum (HCC) Infections of genitourinary tract antepartum 21 weeks gestation of ([facility]) state, incidental Supervision of high risk in second trimester ([facility])- Primary Unspecified high-risk UTI (urinary tract infection) in , antepartum (HCC) Infections of genitourinary tract antepartum Chronic hypertension in (HCC) Benign essential hypertension complicating , childbirth, and the puerperium, unspecified as to episode of care 24 weeks gestation of ([facility]) state, incidental UTI (urinary tract infection) in , antepartum ([facility])- Primary Infections of genitourinary tract antepartum Supervision of high risk in second trimester ([facility]) Unspecified high-risk Chronic hypertension in (HCC) Benign essential hypertension complicating , childbirth, and the puerperium, unspecified as to episode of care 28 weeks gestation of ([facility]) state, incidental [facility] Diagnosis Missed menses- Primary Absence of menstruation 6 weeks gestation of ([facility]) state, incidental Spotting in early (HCC) Spotting complicating , antepartum condition or complication Obesity affecting in first trimester, unspecified obesity type ([facility]) Nausea Nausea alone Supervision of high risk in second trimester ([facility])- Primary Unspecified high-risk Chronic hypertension in (HCC) Benign essential hypertension complicating , childbirth, and the puerperium, unspecified as to episode of care Obesity in ([facility]) Obesity complicating , childbirth, or the puerperium, unspecified as to episode of care or not applicable History of pre-eclampsia UTI (urinary tract infection) in , antepartum ([facility]) Infections of genitourinary tract antepartum 21 weeks gestation of ([facility]) state, incidental Supervision of high risk in second trimester ([facility])- Primary Unspecified high-risk UTI (urinary tract infection) in , antepartum ([facility]) Infections of genitourinary tract antepartum Chronic hypertension in ([facility]) Benign essential hypertension complicating , childbirth, and the puerperium, unspecified as to episode of care 24 weeks gestation of ([facility]) state, incidental Encounter for ultrasound to check growth ([facility])- Primary Encounter for routine screening for malformation using ultrasonics Chronic hypertension in ([facility]) Benign essential hypertension complicating , childbirth, and the puerperium, unspecified as to episode of care 28 weeks gestation of ([facility]) state, incidental [facility] [place] [facility]* Diagnosis Missed menses- Primary Absence of menstruation 6 weeks gestation of ([facility]) state, incidental Spotting in early ([facility]) Spotting complicating , antepartum condition or complication Obesity affecting in first trimester, unspecified obesity type ([facility]) Nausea Nausea alone Supervision of high risk in second trimester ([facility])- Primary Unspecified high-risk Chronic hypertension in ([facility]) Benign essential hypertension complicating , childbirth, and the puerperium, unspecified as to episode of care Obesity in ([facility]) Obesity complicating , childbirth, or the puerperium, unspecified as to episode of care or not applicable History of pre-eclampsia UTI (urinary tract infection) in , antepartum ([facility]) Infections of genitourinary tract antepartum 21 weeks gestation of ([facility]) state, incidental UTI (urinary tract infection) in , antepartum ([facility])- Primary Infections of genitourinary tract antepartum Supervision of high risk in second trimester ([facility])- Primary Unspecified high-risk UTI (urinary tract infection) in , antepartum ([facility]) Infections of genitourinary tract antepartum Chronic hypertension in ([facility]) Benign essential hypertension complicating , childbirth, and the puerperium, unspecified as to episode of care 24 weeks gestation of ([facility]) state, incidental [facility] [place] [facility]* Diagnosis Missed menses- Primary Absence of menstruation 6 weeks gestation of (HCC) state, incidental Spotting in early (HCC) Spotting complicating , antepartum condition or complication Obesity affecting in first trimester, unspecified obesity type (HCC) Nausea Nausea alone Supervision of high risk in second trimester ([facility])- Primary Unspecified high-risk Chronic hypertension in (HCC) Benign essential hypertension complicating , childbirth, and the puerperium, unspecified as to episode of care Obesity in (HCC) Obesity complicating , childbirth, or the puerperium, unspecified as to episode of care or not applicable History of pre-eclampsia UTI (urinary tract infection) in , antepartum ([facility]) Infections of genitourinary tract antepartum 21 weeks gestation of ([facility]) state, incidental Supervision of high risk in second trimester ([facility])- Primary Unspecified high-risk UTI (urinary tract infection) in , antepartum ([facility]) Infections of genitourinary tract antepartum Chronic hypertension in ([facility]) Benign essential hypertension complicating , childbirth, and the puerperium, unspecified as to episode of care 24 weeks gestation of ([facility]) state, incidental Obesity affecting in first trimester, unspecified obesity type ([facility])- Primary Chronic hypertension in ([facility]) Benign essential hypertension complicating , childbirth, and the puerperium, unspecified as to episode of care [facility] Diagnosis Missed menses- Primary Absence of menstruation 6 weeks gestation of ([facility]) state, incidental Spotting in early (HCC) Spotting complicating , antepartum condition or complication Obesity affecting in first trimester, unspecified obesity type ([facility]) Nausea Nausea alone Supervision of high risk in second trimester ([facility])- Primary Unspecified high-risk Chronic hypertension in (HCC) Benign essential hypertension complicating , childbirth, and the puerperium, unspecified as to episode of care Obesity in (HCC) Obesity complicating , childbirth, or the puerperium, unspecified as to episode of care or not applicable History of pre-eclampsia UTI (urinary tract infection) in , antepartum ([facility]) Infections of genitourinary tract antepartum 21 weeks gestation of ([facility]) state, incidental Supervision of high risk in second trimester ([facility])- Primary Unspecified high-risk UTI (urinary tract infection) in , antepartum ([facility]) Infections of genitourinary tract antepartum Chronic hypertension in ([facility]) Benign essential hypertension complicating , childbirth, and the puerperium, unspecified as to episode of care 24 weeks gestation of ([facility]) state, incidental , supervision, high-risk, unspecified trimester ([facility])- Primary Antepartum anemia complicating in third trimester ([facility]) Chronic hypertension in (HCC) Benign essential hypertension complicating , childbirth, and the puerperium, unspecified as to episode of care Obesity affecting in third trimester, unspecified obesity type ([facility]) Generalized anxiety disorder 33 weeks gestation of ([facility]) state, incidental [facility] Diagnosis Missed menses- Primary Absence of menstruation 6 weeks gestation of ([facility]) state, incidental Spotting in early ([facility]) Spotting complicating , antepartum condition or complication Obesity affecting in first trimester, unspecified obesity type ([facility]) Nausea Nausea alone Supervision of high risk in second trimester ([facility])- Primary Unspecified high-risk Chronic hypertension in ([facility]) Benign essential hypertension complicating , childbirth, and the puerperium, unspecified as to episode of care Obesity in ([facility]) Obesity complicating , childbirth, or the puerperium, unspecified as to episode of care or not applicable History of pre-eclampsia UTI (urinary tract infection) in , antepartum ([facility]) Infections of genitourinary tract antepartum 21 weeks gestation of ([facility]) state, incidental Supervision of high risk in second trimester ([facility])- Primary Unspecified high-risk UTI (urinary tract infection) in , antepartum ([facility]) Infections of genitourinary tract antepartum Chronic hypertension in ([facility]) Benign essential hypertension complicating , childbirth, and the puerperium, unspecified as to episode of care 24 weeks gestation of ([facility]) state, incidental Antepartum anemia complicating in third trimester ([facility])- Primary Chronic hypertension in ([facility]) Benign essential hypertension complicating , childbirth, and the puerperium, unspecified as to episode of care Obesity affecting in third trimester, unspecified obesity type ([facility]) Generalized anxiety disorder 35 weeks gestation of (HCC) state, incidental Calculus of kidney affecting in third trimester (HCC) [facility] [place] [facility]* Diagnosis Missed menses- Primary Absence of [...] UTI (urinary tract infection) in , antepartum ([facility]) Infections of genitourinary tract antepartum 21 weeks gestation of ([facility]) state, incidental Supervision of high risk in second trimester ([facility])- Primary Unspecified high-risk UTI (urinary tract infection) in , antepartum ([facility]) Infections of genitourinary tract antepartum Chronic hypertension in (HCC) Benign essential hypertension complicating , childbirth, and the puerperium, unspecified as to episode of care 24 weeks gestation of ([facility]) state, incidental Chronic hypertension in (HCC)- Primary Benign essential hypertension complicating , childbirth, and the puerperium, unspecified as to episode of care Obesity affecting in third trimester, unspecified obesity type ([facility]) Antepartum anemia complicating in third trimester ([facility]) Chronic hypertension with superimposed pre-eclampsia (HCC) documented [facility] [place] [facility]* Diagnosis Missed menses- Primary Absence of menstruation 6 weeks gestation of (HCC) state, incidental Spotting in early (HCC) Spotting complicating , antepartum condition or complication Obesity affecting in first trimester, unspecified obesity type (HCC) Nausea Nausea alone Supervision of high risk in second trimester ([facility])- Primary Unspecified high-risk Chronic hypertension in (HCC) Benign essential hypertension complicating , childbirth, and the puerperium, unspecified as to episode of care Obesity in (HCC) Obesity complicating , childbirth, or the puerperium, unspecified as to episode of care or not applicable History of pre-eclampsia UTI (urinary tract infection) in , antepartum (HCC) Infections of genitourinary tract antepartum 21 weeks gestation of ([facility]) state, incidental Supervision of high risk in second trimester ([facility])- Primary Unspecified high-risk UTI (urinary tract infection) in , antepartum ([facility]) Infections of genitourinary tract antepartum Chronic hypertension in ([facility]) Benign essential hypertension complicating , childbirth, and the puerperium, unspecified as to episode of care 24 weeks gestation of ([facility]) state, incidental Chronic hypertension in ([facility])- Primary Benign essential hypertension complicating , childbirth, and the puerperium, unspecified as to episode of care Obesity affecting in third trimester, unspecified obesity type ([facility]) Antepartum anemia complicating in third trimester ([facility]) Generalized anxiety disorder 35 weeks gestation of ([facility]) state, incidental Calculus of kidney affecting in third trimester ([facility]) [facility] Diagnosis Missed menses- Primary Absence of menstruation 6 weeks gestation of ([facility]) state, incidental Spotting in early ([facility]) Spotting complicating , antepartum condition or complication Obesity affecting in first trimester, unspecified obesity type ([facility]) Nausea Nausea alone Supervision of high risk in second trimester ([facility])- Primary Unspecified high-risk Chronic hypertension in ([facility]) Benign essential hypertension complicating , childbirth, and the puerperium, unspecified as to episode of care Obesity in ([facility]) Obesity complicating , childbirth, or the puerperium, unspecified as to episode of care or not applicable History of pre-eclampsia UTI (urinary tract infection) in , antepartum ([facility]) Infections of genitourinary tract antepartum 21 weeks gestation of ([facility]) state, incidental Supervision of high risk in second trimester ([facility])- Primary Unspecified high-risk UTI (urinary tract infection) in , antepartum ([facility]) Infections of genitourinary tract antepartum Chronic hypertension in ([facility]) Benign essential hypertension complicating , childbirth, and the puerperium, unspecified as to episode of care 24 weeks gestation of ([facility]) state, incidental 36 weeks gestation of ([facility])- Primary state, incidental Chronic hypertension in (HCC) Benign essential hypertension complicating , childbirth, and the puerperium, unspecified as to episode of care Obesity affecting in third trimester, unspecified obesity type (HCC) Antepartum anemia complicating in third trimester (HCC) documented in this encounter [facility] note* Diagnosis Missed menses- Primary Absence of menstruation 6 weeks gestation of ([facility]) state, incidental Spotting in early (HCC) Spotting complicating , antepartum condition or complication Obesity affecting in first trimester, unspecified obesity type ([facility]) Nausea Nausea alone Supervision of high risk in second trimester ([facility])- Primary Unspecified high-risk Chronic hypertension in (HCC) Benign essential hypertension complicating , childbirth, and the puerperium, unspecified as to episode of care Obesity in ([facility]) Obesity complicating , childbirth, or the puerperium, unspecified as to episode of care or not applicable History of pre-eclampsia UTI (urinary tract infection) in , antepartum ([facility]) Infections of genitourinary tract antepartum 21 weeks gestation of ([facility]) state, incidental Supervision of high risk in second trimester ([facility])- Primary Unspecified high-risk UTI (urinary tract infection) in , antepartum ([facility]) Infections of genitourinary tract antepartum Chronic hypertension in ([facility]) Benign essential hypertension complicating , childbirth, and the puerperium, unspecified as to episode of care 24 weeks gestation of ([facility]) state, incidental Gestational hypertension, third trimester ([facility])- Primary Maternal obesity, antepartum ([facility]) Obesity complicating , childbirth, or the puerperium, antepartum condition or complication 36 weeks gestation of ([facility]) state, incidental documented in this encounter [facility] note* Diagnosis Missed menses- Primary Absence of menstruation 6 weeks gestation of ([facility]) state, incidental Spotting in early (HCC) Spotting complicating , antepartum condition or complication Obesity affecting in first trimester, unspecified obesity type ([facility]) Nausea Nausea alone Supervision of high [...] 24 weeks gestation of (HCC) state, incidental 36 weeks gestation of (HCC)- Primary state, incidental Chronic hypertension in (HCC) Benign essential hypertension complicating , childbirth, and the puerperium, unspecified as to episode of care Obesity affecting in third trimester, unspecified obesity type (HCC) Calculus of kidney affecting in third trimester (HCC) documented in this encounter [facility] Discharge instructionsAdditional Instructions keep already scheduled apt for 12/13/2024 w [facility] Work Phone: [employer] for referral (narrative)No reason for referral information availableWMemorial [facility] Work Phone: Reason for visit Narrative* Diagnostic Procedure Only (Routine) - Closed Specialty Diagnoses / Procedures Referred By Omid robb Referred To Contact [facility] Diagnoses 8 weeks gestation of ([facility]) Procedures OBSTETRIC ULTRASOUND WHI US PREG UTERUS AFTER 1ST TRIMEST GESTATION Leanne Aquino APRN.[facility] [address] [place] [address] Phone: tel: fax: [facility] [address] [place] [address] Referral ID Status Reason Start Date Expiration Date V isits Requested Visits Authorized [id number] Closed Auto-Generate d Referral 06/21/2024 04/06/[address] [facility] N[facility] Diagnostic Procedure Only (Routine) - Authorized Specialty Diagnoses / Procedures Referred By Omid robb Referred To Contact [facility] Diagnoses Chronic hypertension in (HCC) 21 weeks gestation of (HCC) Procedures OBSTETRIC ULTRASOUND WHI US PREG UTERUS AFTER 1ST TRIMEST GESTATION Elli Knight MD [address] [place] [address] Phone: tel: fax: [facility] [address] [place] [address] Referral ID Status Reason Start Date Expiration Date Visits Requested Visits Authorized [id number] Authorized Auto-Generat ed Referral 04/07/2024 04/06/2025 5 5 [facility] Diagnosis Threatened miscarriage- Primary Threatened , unspecified as to episode of care Chief Complaint and Reason for Visit Chief [...] 04, 2024 5:00pm 34 weeks gestation of [facility] 2024 12:45am Flank pain, acute December 07, 2024 12:45am High risk multigravida in third trimeste r December 07, 2024 12:45am Hydronephrosis December 07, 2024 12:45am Pyelonephritis affecting [facility]2024 12:45am Recurrent UTI (urinary tract infection) complicating December 07, 2024 12:45am Ureteropelvic junction calculus [facility] 2024 12:45am Chronic hypertension affecting December 07, 2024 12:45am Reason for Visit Admit Date 34 weeks gestation of November 072024 5:00pm Flank pain, acute December 04, 2024 5: 00pm High risk [facility]igravida in [facility] December 04, 2024 5:00pm Hydronephrosis December 04, 2024 5: 00pm Pyelonephritis affecting [facility] 2024 5:00pm Recurrent UTI (urinary tract infection) complicating December 04, 2024 5:00pm Ureteropelvic junction calculus November 072024 5:00pm Chronic hypertension affecting December 04, 2024 5:00pm 34 weeks gestation of [facility] 2024 12:45am Flank pain, acute December 07, 2024 12:45am High risk multigravida in third [facility] December 07, 2024 12:45am Hydronephrosis December 07, 2024 12:45am Pyelonephritis affecting [facility] 2024 12:45am Recurrent UTI (urinary tract infection) complicating December 07, 2024 12:45am Ureteropelvic junction calculus [facility] 2024 12:45am Chronic hypertension affecting December 07, 2024 12:45am Hydronephrosis December 08, 2024 5:47am Recurrent UTI (urinary tract infection) complicating December 08, 2024 5:47am Ureteropelvic junction calculus [facility] 2024 5:47am Advance Directives No Advanced Directives Records Found Advance Directive Response Recorded Date/ Time Do you have a Healthcare Power of Textile Science Technician? No December 07, 2024 1:32pm Summary Purpose Family History No Family History Records FoundNo Family History Records Found Additional Source Comments Source Comments (unrecognize d section and content) In the event this informatio n is protected by the Federal Confidentiality of Alcohol and Drug Abuse Patient Records regulations: The Federal rules restrict any use of the information to criminally investigate or prosecute any alcohol or drug abuse patient.[facility] HospitalIn the event this information is protected by the Federal Confidentiality of Alcohol and Drug Abuse Patient Records regulations: The Federal rules restrict any use of the information to criminally investigate or prosecute any alcohol or drug abuse patient.[facility] HospitalIn the event this information is protected [...] alcohol or drug abuse patient.[facility] HospitalIn the event this information is protected by the Federal Confidentiality of Alcohol and Drug Abuse Patient Records regulations: The Federal rules restrict any use of the information to criminally investigate or prosecute any alcohol or drug abuse patient.[facility] HospitalIn the event this information is protected by the Federal Confidentiality of Alcohol and Drug Abuse Patient Records regulations: The Federal rules restrict any use of the information to criminally investigate or prosecute any alcohol or drug abuse patient.[facility] HospitalIn the event this information is protected by the Federal Confidentiality of Alcohol and Drug Abuse Patient Records regulations: The Federal rules restrict any use of the information to criminally investigate or prosecute any alcohol or drug abuse patient.[facility] HospitalIn the event this information is protected by the Federal Confidentiality of Alcohol and Drug Abuse Patient Records regulations: The Federal rules restrict any use of the information to criminally investigate or prosecute any alcohol or drug abuse patient.[facility] HospitalIn the event this information is protected by the Federal Confidentiality of Alcohol and Drug Abuse Patient Records regulations: The Federal rules restrict any use of the information to criminally investigate or prosecute any alcohol or drug abuse patient.[facility] HospitalIn the event this information is protected by the Federal Confidentiality of Alcohol and Drug Abuse Patient Records regulations: The Federal rules restrict any use of the information to criminally investigate or prosecute any alcohol or drug abuse patient.[facility] HospitalIn the event this information is protected by the Federal Confidentiality of Alcohol and Drug Abuse Patient Records regulations: The Federal rules restrict any use of the information to criminally investigate or prosecute any alcohol or drug abuse patient.[facility] HospitalIn the event this information is protected by the Federal Confidentiality of Alcohol and Drug Abuse Patient Records regulations: The Federal rules restrict any use of the information to criminally investigate or prosecute any alcohol or drug abuse patient.[facility] HospitalIn the event this information is protected by the Federal Confidentiality of Alcohol and Drug Abuse Patient Records regulations: The Federal rules restrict any use of the information to criminally investigate or prosecute any alcohol or drug abuse patient.[facility] HospitalIn the event this information is protected by the Federal Confidentiality of Alcohol and Drug Abuse Patient Records regulations: The Federal rules restrict any use of the information to criminally investigate or prosecute any alcohol or drug abuse patient.[facility] HospitalIn the event this information is protected by the Federal Confidentiality of Alcohol and Drug Abuse Patient Records regulations: The Federal rules restrict any use of the information to criminally investigate or prosecute any alcohol or drug abuse patient.[facility] HospitalIn the event this information is protected by the Federal Confidentiality of Alcohol and Drug Abuse Patient Records regulations: The Federal rules restrict any use of the information to criminally investigate or prosecute any alcohol or drug abuse patient.[facility] HospitalIn the event this information is protected by the Federal Confidentiality of Alcohol and Drug Abuse Patient Records regulations: The Federal rules restrict any use of the information to criminally investigate or prosecute any alcohol or drug abuse patient.[facility] HospitalIn the event this information is protected by the Federal Confidentiality of Alcohol and Drug Abuse Patient Records regulations: The Federal rules restrict any use of the information to criminally investigate or prosecute any alcohol or drug abuse patient.[facility] HospitalIn the event this information is protected by the Federal Confidentiality of Alcohol and Drug Abuse Patient Records regulations: The Federal rules restrict any use of the information to criminally investigate or prosecute any alcohol or drug abuse patient.[facility] HospitalIn the event this information is protected by the Federal Confidentiality of Alcohol and Drug Abuse Patient Records regulations: The Federal rules restrict any use of the information to criminally investigate or prosecute any alcohol or drug abuse patient.[facility] HospitalIn the event this information is protected by the Federal Confidentiality of Alcohol and Drug Abuse Patient Records regulations: The Federal rules restrict any use of the information to criminally investigate or prosecute any alcohol or drug abuse patient.[facility] HospitalIn the event this information is protected by the Federal Confidentiality of Alcohol and Drug Abuse Patient Records regulations: The Federal rules restrict any use of the information to criminally investigate or prosecute any alcohol or drug abuse patient.[facility] HospitalIn the event this information is protected by the Federal Confidentiality of Alcohol and Drug Abuse Patient Records regulations: The Federal rules restrict any use of the information to criminally investigate or prosecute any alcohol or drug abuse patient.[facility] HospitalIn the event this information is protected by the Federal Confidentiality of Alcohol and Drug Abuse Patient Records regulations: The Federal rules restrict any use of the information to criminally investigate or prosecute any alcohol or drug abuse patient.[facility] HospitalIn the event this information is protected by the Federal Confidentiality of Alcohol and Drug Abuse Patient Records regulations: The Federal rules restrict any use of the information to criminally investigate or prosecute any alcohol or drug abuse patient.[facility] HospitalIn the event this information is protected by the Federal Confidentiality of Alcohol and Drug Abuse Patient Records regulations: The Federal rules restrict any use of the information to criminally investigate or prosecute any alcohol or drug abuse patient.[facility] HospitalIn the event this information is protected by the Federal Confidentiality of Alcohol and Drug Abuse Patient Records regulations: The Federal rules restrict any use of the information to criminally investigate or prosecute any alcohol or drug abuse patient.[facility] HospitalIn the event this information is protected by the Federal Confidentiality of Alcohol and Drug Abuse Patient Records regulations: The Federal rules restrict any use of the information to criminally investigate or prosecute any alcohol or drug abuse patient.[facility] HospitalIn the event this information is protected by the Federal Confidentiality of Alcohol and Drug Abuse Patient Records regulations: The Federal rules restrict any use of the information to criminally investigate or prosecute any alcohol or drug abuse patient.[facility] HospitalIn the event this information is protected by the Federal Confidentiality of Alcohol and Drug Abuse Patient Records regulations: The Federal rules restrict any use of the information to criminally investigate or prosecute any alcohol or drug abuse patient.[facility] HospitalIn the event this information is protected by the Federal Confidentiality of Alcohol and Drug Abuse Patient Records regulations: The Federal rules restrict any use of the information to criminally investigate or prosecute any alcohol or drug abuse patient.[facility] HospitalIn the event this information is protected by the Federal Confidentiality of Alcohol and Drug Abuse Patient Records regulations: The Federal rules restrict any use of the information to criminally investigate or prosecute any alcohol or drug abuse patient.[facility] HospitalIn the event this information is protected by the Federal Confidentiality of Alcohol and Drug Abuse Patient Records regulations: The Federal rules restrict any use of the information to criminally investigate or prosecute any alcohol or drug abuse patient.[facility] HospitalIn the event this information is protected by the Federal Confidentiality of Alcohol and Drug Abuse Patient Records regulations: The Federal rules restrict any use of the information to criminally investigate or prosecute any alcohol or drug abuse patient.[facility] HospitalIn the event this information is protected by the Federal Confidentiality of Alcohol and Drug Abuse Patient Records regulations: The Federal rules restrict any use of the information to criminally investigate or prosecute any alcohol or drug abuse patient.[facility] HospitalIn the event this information is protected by the Federal Confidentiality of Alcohol and Drug Abuse Patient Records regulations: The Federal rules restrict any use of the information to criminally investigate or prosecute any alcohol or drug abuse patient.[facility] HospitalIn the event this information is protected by the Federal Confidentiality of Alcohol and Drug Abuse Patient Records regulations: The Federal rules restrict any use of the information to criminally investigate or prosecute any alcohol or drug abuse patient.[facility] HospitalIn the event this information is protected by the Federal Confidentiality of Alcohol and Drug Abuse Patient Records regulations: The Federal rules restrict any use of the information to criminally investigate or prosecute any alcohol or drug abuse patient.[facility] HospitalIn the event this information is protected by the Federal Confidentiality of Alcohol and Drug Abuse Patient Records regulations: The Federal rules restrict any use of the information to criminally investigate or prosecute any alcohol or drug abuse patient.[facility] HospitalIn the event this information is protected by the Federal Confidentiality of Alcohol and Drug Abuse Patient Records regulations: The Federal rules restrict any use of the information to criminally investigate or prosecute any alcohol or drug abuse patient.[facility] HospitalIn the event this information is protected by the Federal Confidentiality of Alcohol and Drug Abuse Patient Records regulations: The Federal rules restrict any use of the information to criminally investigate or prosecute any alcohol or drug abuse patient.[facility] Reason for Visit (unrecogniz ed section and content) Reason Comments Care + test Reason Comments Refill Request Reason Onset Date Comments Refill Request 01/28/2022 Reason Comments Well Woman Specialty Diagnoses / Procedures Referred By Omid t Referred To Contact [employer] / [facility] Diagnoses Annual Exam Procedures Annual Exam Sheyla Moreno APRN.CNM [address] [place] [address] [address] Referral ID Status Reason Start Date Expiration Date Visits Requested Visits Authorized [id number] Denied Financial Clearance Required - OON Payor OON Notification Letter Clearance Not Met - Admin/Public Relations Professional/D irector Advise to Postpone/Resched ule or Not [...] Referred By Contac t Referred To Contact [facility] Diagnoses 8 weeks gestation of (HCC) Procedures OBSTETRIC ULTRASOUND WHI US PREG UTERUS AFTER 1ST TRIMEST GESTATION Leanne Aquino APRN.WOOD BUCKER [address] [place] [address] Phone: tel: fax:[phone] [address] Referral ID Status Reason Start Date Expiration Date V isits Requested Visits Authorized [id number] Closed Auto-Generate d Referral 08/20/2024 04/06/2025 1 1 Reason Comments Breast Pump Specialty Diagnoses / Procedures Referred By Contac t Referred To Contact [facility] Diagnoses Chronic hypertension in (HCC) 21 weeks gestation of (HCC) Procedures OBSTETRIC ULTRASOUND WHI US PREG UTERUS AFTER 1ST TRIMEST GESTATION Elli Kngiht MD [address] [place] [address] Phone: tel: fax:[phone] [address] Referral ID Status Reason Start Date Expiration Date Visits Requested Visits Authorized [id number] Authorized Auto-Generat ed Referral 04/07/2024 04/06/2025 5 5 Reason Onset Date Comments Care 11/26/2024 Reason Onset Date Comments Care 12/13/2024 Reason Comments Results Follow Up Reason Comments Nst (Non Stress Test) Specialty Diagnoses / Procedures Referred By Omid t Referred To Contact [facility] Diagnoses Chronic hypertension in (HCC) Obesity affecting in third trimester, unspecified obesity type (HCC) Antepartum anemia complicating in third trimester (HCC) Procedures BIOPHYSICAL PROFILE US WHI BIOPHYSICAL PROFILE NON-STRESS TESTING BIOPHYSICAL PROFILE W/O NON-STRESS TESTING Elli Knight MD [address] [place] [address] Phone: tel: fax: [facility] [address] [place] [address] Referral ID Status Reason Start Date Expiration Date V isits Requested Visits Authorized [id number] Closed Auto-Generate d Referral 12/15/2024 04/06/2025 1 1 Reason Onset Date Comments Care 12/21/2024 Telephone Encounter - Terra Fuentes LPN - [...] Care Teams (unrecognized sec tion and content) Tube Coverer Relationship Specialty Start Date End Date Chiki Gonzales MD PCP - General Family Medicine 08/08/12 Tube Coverer Relationship Specialty Start Date End Date Chiki Gonzales MD PCP - General Family Medicine 08/08/12 Tube Coverer Relationship Specialty Start Date End Date Chiki Gonzales MD PCP - General Family Medicine 08/08/12 Tube Coverer Relationship Specialty Start Date End Date Chiki Gonzales MD PCP - General Family Medicine 08/08/12 Tube Coverer Relationship Specialty Start Date End Date Chiki Gonzales MD PCP - General Family Medicine 08/08/12 Tube Coverer Relationship Specialty Start Date End Date Chiki Gonzales MD PCP - General Family Medicine 08/08/12 Tube Coverer Relationship Specialty Start Date End Date Chiki Gonzales MD PCP - General Family Medicine 08/08/12 Tube Coverer Relationship Specialty Start Date End Date Chiki Gonzales MD PCP - General Family Medicine 08/08/12 Tube Coverer Relationship Specialty Start Date End Date Chiki Gonzales MD PCP - General Family Medicine 08/08/12 Tube Coverer Relationship Specialty Start Date End Date Chiki Gonzales MD PCP - General Family Medicine 08/08/12 Tube Coverer Relationship Specialty Start Date End Date Chiki Gonzales MD PCP - General Family Medicine 08/08/12 Tube Coverer Relationship Specialty Start Date End Date Chiki Gonzales MD PCP - General Family Medicine 08/08/12 Tube Coverer Relationship Specialty Start Date End Date Chiki Gonzales MD PCP - General Family Medicine 08/08/12 Tube Coverer Relationship Specialty Start Date End Date Chiki Gonzales MD PCP - General Family Medicine 08/08/12 Tube Coverer Relationship Specialty Start Date End Date Chiki Gonzales MD PCP - General Family Medicine 08/08/12 Tube Coverer Relationship Specialty Start Date End Date Chiki Gonzales MD PCP - General Family Medicine 08/08/12 Tube Coverer Relationship Specialty Start Date End Date Chiki Gonzales MD PCP - General Family Medicine 08/08/12 Tube Coverer Relationship Specialty Start Date End Date Chiki Gonzales MD PCP - General Family Medicine 08/08/12 Tube Coverer Relationship Specialty Start Date End Date Chiki Gonzales MD PCP - General Family Medicine 08/08/12 Tube Coverer Relationship Specialty Start Date End Date Chiki Gonzales MD PCP - General Family Medicine 08/08/12 Tube Coverer Relationship Specialty Start Date End Date Chiki Gonzales MD PCP - General Family Medicine 08/08/12 Tube Coverer Relationship Specialty Start Date End Date Chiki Gonzales MD PCP - General Family Medicine 08/08/12 Tube Coverer Relationship Specialty Start Date End Date Chiki Gonzales MD PCP - General Family Medicine 08/08/12 Tube Coverer Relationship Specialty Start Date End Date Chiki Gonzales MD PCP - General Family Medicine 08/08/12 Tube Coverer Relationship Specialty Start Date End Date Chiki Gonzales MD PCP - General Family Medicine 08/08/12 Tube Coverer Relationship Specialty Start Date End Date Chiki Gonzales MD PCP - General Family Medicine 08/08/12 Tube Coverer Relationship Specialty Start Date End Date Chiki Gonzales MD PCP - General Family Medicine 08/08/12 Tube Coverer Relationship Specialty Start Date End Date Chiki Gonzales MD PCP - General Family Medicine 08/08/12 Tube Coverer Relationship Specialty Start Date End Date Chiki Gonzales MD PCP - General Family Medicine 08/08/12 Tube Coverer Relationship Specialty Start Date End Date Chiki Gonzales MD PCP - General Family Medicine 08/08/12 Tube Coverer Relationship Specialty Start Date End Date Chiki [...] December 07, 2024 End: December 07, 2024 Team Status: Active Member Role/Relationship Status Dates YANICK MartC Primary Care Provider Active Team Status: Inactive Member Role/Relationship Status Dates Dr. Latesha Elena MD Attending Provider Active Start: December 08, 2024 End: December 08, 2024 Dr. Latesha Elena MD Referring Provider Active Start: December 08, 2024 End: December 08, 2024 YANICK MartC Primary Care Provider Active Start: December 08, 2024 End: December 08, 2024 Team Status: Active Member Role/Relationship Status Dates Dr. Latesha Elena MD Attending Provider Active Start: December 08, 2024 Dr. Latesha Elena MD Referring Provider Active Start: December 08, 2024 Dr. Latesha Elena MD Other Provider Active Sta rt: December 08, 2024 Madison Butler NP-C Primary Care Provider Active Start: December 08, 2024 Tube Coverer Relationship Specialty Start Date End Date Chiki Gonzales MD PCP - General Family Medicine 08/08/12 Tube Coverer Relationship Specialty Start Date End Date Chiki Gonzales MD PCP - General Family Medicine 08/08/12 Tube Coverer Relationship Specialty Start Date End Date Chiki Gonzales MD PCP - General Family Medicine 08/08/12 Tube Coverer Relationship Specialty Start Date End Date Chiki Gonzales MD PCP - General Family Medicine 08/08/12 Tube Coverer Relationship Specialty Start Date End Date Chiki Gonzales MD PCP - General Family Medicine 08/08/12 Goals (unrecognized section and content) Goals may be documented in a n alternate sectionGoals may be documented in an alternate section INFORMATION SOURCE (unrecogn ized section and content) DATE CREATED AUTHOR 12/23/2024 [facility] DATE CREATED AUTHOR AUTHOR'S ORGANIZ ATION 12/24/2024 [facility] FOR RECORDS PERTAINING TO PATIENTS WHO ARE [...] BE BASED ON THE PRIMARY CLINICAL RECORDS. [employer] provides no warranty or guarantee of the accuracy or completeness of information in this document.
--- OUTSIDE RECORDS SUMMARY | 2024-12-24 07:44 | XMS RPT_ITS | CCD ---
Author Organization [facility] Care Team Providers Care [employer] Mixer Name Role Phone Chiki Gonzales Primary Care Provider Janet STAUFFER, Dr. Monet Primary Care Provider Moreno CNM, Sheyla Admit Provider Moreno CNM Sheyla Attending Provider Josh CNM, Sheyla Referring Provider Kassy STAUFFER, Dr. Charlton Other Provider [phone] Josh SINGHM, Sheyla Other Provider Kassy STAUFFER, Dr. Charlton Attending Provider Alfonso STAUFFER, Dr. Matias Attending Provider Dr. Polly Hamilton MD Referring Provider Dr. Latesha Elena MD Referring Provider Luke [employer] SALESPERSON-C, [place] Primary Care Provider Chiki Gonzales [facility]available Latesha Elena Consulting Unavailable Latesha Elena Referring Unavailable Latesha Elena Attending [facility] Unavailable Darwin, Adina Referring Unavailable [...] Calculus in pelviureteric junction Calculus of ureter Mtvtlgga-Ahc-No-Fa 1 mg Tablet (3 sources) Start: 01-08-2021 take 1 tablet by mouth once daily Towodapp-Wvz-Zi-Fa 1 mg Tablet Active 1 {tbl} PO [...] 7 days. 14 capsule 06/09/2024 06/16/2024 Active Wemelczz-Gz-Mqt-Fe-FA ( VITAMIN) tab (9 sources) take 1 tablet by mouth once Oenwomyk-Xg-Lqy-Fe-FA ( VITAMIN) tab Take 1 tablet by [...] Translations: [8 weeks gestation of ([facility])] Onset: 06-07-2024 Episodic Screening and history of mental health and substance abuse codes (20 sources) H/O: anxiety state; Translations: [Personal history of other mental and behavioral disorders] Onset: 06-08-2020 Resolved: 10-27-2024 06-08-2020 Episodic Results Test Name Value Interpretation Reference Range Facility ROUTINE, GROUP B ST REPTOCOCCUS BY PCRon 12-22-2024 Interpretation and review of laboratory results Normal [facility] S. agalactiae DNA KEVIN+probe Ql (Unsp spec) Not detected Not detected [facility] This PCR is performed on a vaginal-rectal swab after culture enrichment. It is the most sensitive method for Group B Streptococcus screening. (Obstet Gynecol. 2020 PMID [id number]) [facility] CBC panel Auto (Bld)on 12-21 Erythrocyte distribution width (RBC) [Ratio] 13.1 % Normal 11.5-15.0 [facility] Comment on above: Order Comment: Speci men Type: BLOOD SPECIMEN [facility]ing Facility: [facility] Address: [address] [place] [address] Performed By: #### 2 4323-8, 3084-1 #### [facility] CLIA [id number] [address] [place] [address] [place] Hematocrit (Bld) [Volume fraction] 31.1 % Low 36.0-46.0 [facility] Comment on above: Order Comment: Speci men Type: BLOOD SPECIMEN [facility] Facility: [facility] Address: [address] [place] [address] Performed By: #### 2 4323-8, 308-1 #### [facility] CLIA [id number] [address] [place] [address] [place] Hemoglobin (Bld) [Mass/Vol] 10.6 g/dL Low 11.5-15.5 [facility] Comment on above: Order Comment: Speci men Type: BLOOD SPECIMEN [facility] Facility: [facility] Address: [address] [place] [address] Performed By: #### 2 4323-8, 3083-1 #### [facility] CLIA [id number] [address] [place] [address] [place] [facility] MCH (RBC) [Entitic mass] 30.4 pg Normal 26.0-34.0 [facility] Comment on above: Order Comment: Speci men Type: BLOOD SPECIMEN [facility] Facility: [facility] Address: [address] [place] [address] Performed By: #### 2 4323-8, 3083-1 #### [facility] CLIA [id number] [address] [place] [address] [place] MCHC (RBC) [Mass/Vol] 34.1 g/dL Normal 30.5-36.0 [facility] Comment on above: Order Comment: Speci men Type: BLOOD SPECIMEN [facility] Facility: [facility] Address: [address] [place] [address] Performed By: #### 2 4323-8, 3084-1 #### [facility] CLIA [id number] [address] [place] [address] OF [facility] MCV (RBC) [Entitic vol] 89.1 fL Normal 80.0-100.0 C [facility] Comment on above: Order Comment: Speci men Type: BLOOD SPECIMEN [facility]ing Facility: [facility] Address: [address] [place] [address] Performed By: #### 2 4323-8, 3083- #### [facility] CLIA [id number] [address] [place] [address] [place] Nucleated RBC (Bld) [#/Vol] 10*3/uL Normal <0.01 [facility] Comment on above: Order Comment: Speci men Type: BLOOD SPECIMEN [facility]ing Facility: [facility] Address: [address] [place] [address] Performed By: #### 2 4323-8, 3083-04 #### [facility] CLIA [id number] [address] [place] [address] [place] Platelet mean volume (Bld) [Entitic vol] 10.9 fL Normal 9.0-12.7 [facility] Comment on above: Order Comment: Speci men Type: BLOOD SPECIMEN [facility] Facility: [facility] Address: [address] [place] [address] Performed By: #### 2 4323-8, 3083-04 #### [facility] CLIA [id number] [address] [place] [address] [place] Platelets (Bld) [#/Vol] 246 10*3/uL Normal 150-400 [facility] Comment on above: Order Comment: Speci men Type: BLOOD SPECIMEN [facility] Facility: [facility] Address: [address] [place] [address] Performed By: #### 2 4323-8, 3083- #### [facility] CLIA [id number] [address] [place] [address] [place] RBC (Bld) [#/Vol] 3.49 10*6/uL Low 3.90-5.20 [facility] Comment on above: Order Comment: Speci men Type: BLOOD SPECIMEN [facility] Facility: [facility] Address: [address] [place] [address] Performed By: #### 2 4323-8, 308-1 #### [facility] CLIA [id number] [address] [place] [address] [place] WBC (Bld) [#/Vol] 11.49 10*3/uL High 3.70-11.00 [facility] Comment on above: Order Comment: Speci men Type: BLOOD SPECIMEN [facility]ing Facility: [facility] Address: [address] [place] [address] Performed By: #### 2 4323-8, 3083-1 #### [facility] CLIA [id number] [address] [place] [address] [place] Comprehensive metabolic 2000 panelon 12-21-2024 Albumin [Mass/Vol] 3.4 g/dL Low 3.9-4.9 [facility] Comment on above: Order Comment: Speci men Type: BLOOD SPECIMEN [facility]ing Facility: [facility] Address: [address] [place] [address] Performed By: #### 2 4323-8, 3083-04 #### [facility] CLIA [id number] [address] [place] [address] [place] ALP [Catalytic activity/Vol] 102 U/L Normal 34-123 [facility] Comment on above: Order Comment: Speci men Type: BLOOD SPECIMEN [facility]ing Facility: [facility] Address: [address] [place] [address] Performed By: #### 2 4323-8, 3083-1 #### [facility] CLIA [id number] [address] [place] [address] [place] ALT [Catalytic activity/Vol] 22 U/L Normal 7-38 [facility] Comment on above: Order Comment: Speci men Type: BLOOD SPECIMEN [facility]ing Facility: [facility] Address: [address] [place] [address] Performed By: #### 2 4323-8, 3083-04 #### [facility] CLIA [id number] [address] [place] [address] [place] Anion gap [Moles/Vol] 10 mmol/L Normal 8-15 [facility] Comment on above: Order Comment: Speci men Type: BLOOD SPECIMEN [facility]ing Facility: [facility] Address: [address] [place], [place] [address] Performed By: #### 2 4323-8, 3083-04 #### [facility] CLIA [id number] [address] [place] [address] [place] AST [Catalytic activity/Vol] 20 U/L Normal 13-35 [facility] Comment on above: Order Comment: Speci men Type: BLOOD SPECIMEN [facility]ing Facility: [facility] Address: [address] [place], [place] [address] Performed By: #### 2 4323-8, 3083-04 #### [facility] CLIA [id number] [address] [place] [address] [place] Bilirubin [Mass/Vol] 1.4 mg/dL High 0.2-1.3 [facility] Comment on above: Order Comment: Speci men Type: BLOOD SPECIMEN [facility]ing Facility: [facility] Address: [address] [place] [address] Performed By: #### 2 4323-8, 3083-04 #### [facility] CLIA [id number] [address] [place] [address] [place] Calcium [Mass/Vol] 9.3 mg/dL Normal 8.5-10.2 [facility] Comment on above: Order Comment: Speci men Type: BLOOD SPECIMEN [facility]ing Facility: [facility] Address: [address] [place] [address] Performed By: #### 2 4323-8, 3083-04 #### [facility] CLIA [id number] [address] [place] [address] [place] Chloride [Moles/Vol] 101 mmol/L Normal 98-107 [facility] Comment on above: Order Comment: Speci men Type: BLOOD SPECIMEN [facility]ing Facility: [facility] Address: [address] [place] [address] Performed By: #### 2 4323-8, 3083-04 #### [facility] CLIA [id number] [address] [place] [address] [place] CO2 [Moles/Vol] 23 mmol/L Normal 22-30 [facility] Comment on above: Order Comment: Speci men Type: BLOOD SPECIMEN [facility]ing Facility: [facility] Address: [address] [place] [address] Performed By: #### 2 4323-8, 3083-04 #### [facility] CLIA [id number] [address] [place] [address] [place] Creatinine [Mass/Vol] 0.84 mg/dL Normal 0.58-0.96 [facility] Comment on above: Order Comment: Speci men Type: BLOOD SPECIMEN [facility]ing Facility: [facility] Address: [address] [place] [address] Performed By: #### 2 4323-8, 3083-04 #### [facility] CLIA [id number] [address] [place] [address] [place] eGFRcr SerPlBld CKD-EPI 2020 94 mL/min/1.73m??? Normal >=60 [facility] Comment on above: Order Comment: Speci men Type: BLOOD SPECIMEN [facility]ing Facility: [facility] Address: [address] [place] [address] Result Comment: Jelly mated Glomerular Filtration Rate [...] Performed By: #### 2 4323-8, 3083-04 #### [facility] CLIA [id number] [address] [place] [id number] [place] Glucose [Mass/Vol] 120 mg/dL High 74-99 [facility] Comment on above: Order Comment: Anat ahmadi Type: BLOOD SPECIMEN Ordering Facility: [facility] Address: [address] [place] [address] Result Comment: The [place] Diabetes Association (ADA) provides guidance for cutoff [...] Standards of Medical Care in Diabetes 2016, [place] Diabetes Association. Diabetes Care. 2016.39(Suppl 1). Performed By: #### 2 43238, 3083-04 #### [facility] CLIA [id number] [address] [place] [address] [place] Potassium [Moles/Vol] 3.8 mmol/L Normal 3.7-5.1 [facility] Comment on above: Order Comment: Anat ahmadi Type: BLOOD SPECIMEN Ordering Facility: [facility] Address: [address] [place] [address] Performed By: #### 2 43238, 3083-04 #### [facility] CLIA [id number] [address] [place] [address] [place] Protein [Mass/Vol] 6.4 g/dL Normal 6.3-8.0 [facility] Comment on above: Order Comment: Speci men Type: BLOOD SPECIMEN [facility] Facility: [facility] Address: [address] [place], [place] [address] Performed By: #### 2 4323-8, 3083- #### [id number] [address] [place] [address] [place] Sodium [Moles/Vol] 134 mmol/L Low 136-144 [facility] Comment on above: Order Comment: Speci men Type: BLOOD SPECIMEN [facility]ing Facility: [facility] Address: [address] [place] [address] Performed By: #### 2 4323-8, 3083-04 #### [facility] [id number] [address] [place] [address] [place] Urea nitrogen [Mass/Vol] 9 mg/dL Normal 7-21 [facility] Comment on above: Order Comment: Speci men Type: BLOOD SPECIMEN [facility]ing Facility: [facility] Address: [address] [place] [address] Performed By: #### 2 4323-8, 3083-04 #### [facility] [id number] [address] [place] [address] [place] Examination level ultrasound on 12-21-2024 [facility] Radiology Study observation (narrative) [facility] ROUTINE, GROUP B ST REPTOCOCCUS BY PCRon 12-21-2024 ROUTINE, GROUP B STREPTOCOCCUS BY PCR Not detected Normal [facility] Comment on above: Performed By: #### G BPCR ####[facility] LABCLIA [id number] [place] [address] [place] URINE OB DIP B/Oon 5 Glucose Ql (U) Negative Neg mg/dL [facility] Protein.monoclonal (U) [Mass/Vol] 30 mg/dL Neg [facility] Urate SerPl-mCncon Urate [Mass/Vol] 5.6 mg/dL Normal 2.5-6.6 [facility] Comment on above: Order Comment: Speci men Type: BLOOD SPECIMEN Ordering Facility: [facility] Address: [address] [place] [address] Performed By: #### 2 4323-8, 308-1 #### [facility] CLIA [id number] [address] [place] [address] [place] Biophysical profile.eladio dy movement USon 12-17-2024 [facility] Radiology Study observation (narrative) [facility] CBC panel Auto (Bld)on 12-15 Erythrocyte distribution width (RBC) [Ratio] 12.8 % Normal 11.5-15.0 [facility] Comment on above: Order Comment: Speci men Type: BLOOD SPECIMEN [facility]ing Facility[facility] Address: [address] [place] [address] Performed By: #### 2 4323-8, 3083-04 #### [facility] [id number] [address] [place] [address] [place] Hematocrit (Bld) [Volume fraction] 33.3 % Low 36.0-46.0 [facility] Comment on above: Order Comment: Speci men Type: BLOOD SPECIMEN Ordering Facility: [facility] Address: [address] [place] [address] Performed By: #### 2 4323-8, 3083- #### [facility] CLIA [id number] [address] [place] [address] [place] Hemoglobin (Bld) [Mass/Vol] 11.3 g/dL Low 11.5-15.5 [facility] Comment on above: Order Comment: Speci men Type: BLOOD SPECIMEN Ordering Facility: [facility] Address: [address] [place] [address] Performed By: #### 2 4323-8, 3083-1 #### [facility] CLIA [id number] [address] [place] [address] [place] MCH (RBC) [Entitic mass] 30.7 pg Normal 26.0-34.0 [facility] Comment on above: Order Comment: Speci men Type: BLOOD SPECIMEN [facility] Facility: [facility] Address: [address] [place] [address] Performed By: #### 2 4323-8, 3083- #### [facility] CLIA [id number] [address] [place] [address] [place] MCHC (RBC) [Mass/Vol] 33.9 g/dL Normal 30.5-36.0 [facility] Comment on above: Order Comment: Speci men Type: BLOOD SPECIMEN [facility] Facility: [facility] Address: [address] [place] [address] Performed By: #### 2 4323-8, 3083-04 #### [facility] CLIA [id number] [address] [place] [address] [place] MCV (RBC) [Entitic vol] 90.5 fL Normal 80.0-100.0 C [facility] Comment on above: Order Comment: Speci men Type: BLOOD SPECIMEN [facility]ing Facility: [facility] Address: [address] [place] [address] Performed By: #### 2 4323-8, 3083-04 #### [facility] CLIA [id number] [address] [place] [address] [place] Nucleated RBC (Bld) [#/Vol] 10*3/uL Normal <0.01 [facility] Comment on above: Order Comment: Speci men Type: BLOOD SPECIMEN Ordering Facility: [facility] Address: [address] [place], [place] [address] Performed By: #### 2 4323-8, 3083- #### [facility] CLIA [id number] [address] [place] [address] [place] Platelet mean volume (Bld) [Entitic vol] 12.5 fL Normal 9.0-12.7 [facility] Comment on above: Order Comment: Speci men Type: BLOOD SPECIMEN [facility] Facility: [facility] Address: [address] [place] [address] Performed By: #### 2 4323-8, 3084-1 #### [facility] CLIA [id number] [address] [place] [address] [place] Platelets (Bld) [#/Vol] 350 10*3/uL Normal 150-400 [facility] Comment on above: Order Comment: Speci men Type: BLOOD SPECIMEN [facility] Facility: [facility] Address: [address] [place] [address] Performed By: #### 2 4323-8, 3084-1 #### [facility] CLIA [id number] [address] [place] [address] [place] RBC (Bld) [#/Vol] 3.68 10*6/uL Low 3.90-5.20 [facility] Comment on above: Order Comment: Speci men Type: BLOOD SPECIMEN [facility] Facility: [facility] Address: [address] [place] [address] Performed By: #### 2 4323-8, 3084-1 #### [facility] CLIA [id number] [address] [place] [address] [place] WBC (Bld) [#/Vol] 12.45 10*3/uL High 3.70-11.00 [facility] Comment on above: Order Comment: Speci men Type: BLOOD SPECIMEN [facility] Facility: [facility] Address: [address] [place] [address] Performed By: #### 2 4323-8, 3084-1 #### [facility] CLIA [id number] [address] [place] [address] [place] Comprehensive metabolic 2000 panelon 12-15-2024 Albumin [Mass/Vol] 3.7 g/dL Low 3.9-4.9 [facility] Comment on above: Order Comment: Speci men Type: BLOOD SPECIMEN [facility] Facility: [facility] Address: [address] [place] [address] Performed By: #### 2 4323-8, 3084-1 #### [facility] CLIA [id number] [address] [place] [address] [place] ALP [Catalytic activity/Vol] 101 U/L Normal 34-123 [facility] Comment on above: Order Comment: Speci men Type: BLOOD SPECIMEN [facility] Facility: [facility] Address: [address] [place] [address] Performed By: #### 2 4323-8, 3084-1 #### [facility] CLIA [id number] [address] [place] [address] [place] ALT [Catalytic activity/Vol] 57 U/L High 7-38 [facility] Comment on above: Order Comment: Speci men Type: BLOOD SPECIMEN [facility]ing Facility: [facility] Address: [address] [place] [address] Performed By: #### 2 4323-8, 3084-1 #### [facility] CLIA [id number] [address] [place] [address] [place] Anion gap [Moles/Vol] 14 mmol/L Normal 8-15 [facility] Comment on above: Order Comment: Speci men Type: BLOOD SPECIMEN [facility] Facility: [facility] Address: [address] [place] [address] Performed By: #### 2 4323-8, 3084-1 #### [facility] CLIA [id number] [address] [place] [address] [place] AST [Catalytic activity/Vol] 41 U/L High 13-35 [facility] Comment on above: Order Comment: Speci men Type: BLOOD SPECIMEN [facility] Facility[facility] Address: [address] [place] [address] Performed By: #### 2 4323-8, 3083- #### [facility] CLIA [id number] [address] [place] [address] [place] Bilirubin [Mass/Vol] 0.7 mg/dL Normal 0.2-1.3 [facility] Comment on above: Order Comment: Speci men Type: BLOOD SPECIMEN [facility]ing Facility: [facility] Address: [address] [place] [address] Performed By: #### 2 4323-8, 3083-04 #### [facility] CLIA [id number] [address] [place] [address] [place] Calcium [Mass/Vol] 8.9 mg/dL Normal 8.5-10.2 [facility] Comment on above: Order Comment: Speci men Type: BLOOD SPECIMEN [facility] Facility: [facility] Address: [address] [place] [address] Performed By: #### 2 4323-8, 3083-04 #### [facility] CLIA [id number] [address] [place] [address] [place] Chloride [Moles/Vol] 101 mmol/L Normal 98-107 [facility] Comment on above: Order Comment: Speci men Type: BLOOD SPECIMEN [facility] Facility: [facility] Address: [address] [place] [address] Performed By: #### 2 4323-8, 3083-04 #### [facility] CLIA [id number] [address] [place] [address] [place] CO2 [Moles/Vol] 23 mmol/L Normal 22-30 [facility] Comment on above: Order Comment: Speci men Type: BLOOD SPECIMEN [facility] Facility: [facility] Address: [facility] [place] [address] Performed By: #### 2 4323-8, 3083-04 #### [facility] CLIA [id number] [address] [place] [address] [place] Creatinine [Mass/Vol] 0.73 mg/dL Normal 0.58-0.96 [facility] Comment on above: Order Comment: Anat ahmadi Type: BLOOD SPECIMEN [facility] Facility: [facility] Address: [address] [place] [address] Performed By: #### 2 4323-8, 3083-04 #### [facility] CLIA [id number] [address] [place] [address] [place] eGFRcr SerPlBld CKD-EPI 2020 111 mL/min/1.73m??? Normal >=60 [facility] Comment on above: Order Comment: Anat ahmadi Type: BLOOD SPECIMEN [facility] Facility: [facility] Address: [address] [place] [address] Result Comment: Jelly mated Glomerular Filtration Rate [...] Performed By: #### 2 4323-8, 3083-04 #### [facility] CLIA [id number] [address] [place] [address] [place] Glucose [Mass/Vol] 77 mg/dL Normal 74-99 [facility] Comment on above: Order Comment: Anat ahmadi Type: BLOOD SPECIMEN [facility] Facility: [facility] Address: [address] [place] [address] Result Comment: The [place] Diabetes Association (ADA) provides guidance for cutoff [...] Standards of Medical Care in Diabetes 2016, [place] Diabetes Association. Diabetes Care. 2016.39(Suppl 1). Performed By: #### 2 4323-8, 3083-04 #### [facility] CLIA [id number] [address] [place] [address] [place] Potassium [Moles/Vol] 4.3 mmol/L Normal 3.7-5.1 [facility] Comment on above: Order Comment: Anat ahmadi Type: BLOOD SPECIMEN [facility] Facility: [facility] Address: [address] [place] [address] Performed By: #### 2 4328, 3083-04 #### [facility] CLIA [id number] [address] [place] [address] [place] Protein [Mass/Vol] 7.1 g/dL Normal 6.3-8.0 [facility] Comment on above: Order Comment: Anat ahmadi Type: BLOOD SPECIMEN [facility] Facility: [facility] Address: [address] [place] [address] Performed By: #### 2 43238, 3083-04 #### [facility] CLIA [id number] [address] [place] [address] [place] Sodium [Moles/Vol] 138 mmol/L Normal 136-144 [facility] Comment on above: Order Comment: Katlini galdino Type: BLOOD SPECIMEN [facility] Facility: [facility] Address: [address] [place] [address] Performed By: #### 2 4323-8, 3083-04 #### [facility] CLIA [id number] [address] [place] [address] [place] Urea nitrogen [Mass/Vol] 9 mg/dL Normal 7-21 [facility] Comment on above: Order Comment: Anat ahmadi Type: BLOOD SPECIMEN [facility] Facility: [facility] Address: [address] [place] [address] Performed By: #### 2 4323-8, 3084-1 #### [facility] CLIA [id number] [address] [place] [address] Urate SerPl-mCncon 5 Urate [Mass/Vol] 4.2 mg/dL Normal 2.5-6.6 [facility] Comment on above: Order Comment: Anat ahmadi Type: BLOOD SPECIMEN [facility] Facility: [facility] Address: [address] [place], [place] [address] Performed By: #### 2 4323-8, 3084-1 #### [facility] CLIA [id number] [address] [place] [address] CNPNon 12-14-2024 CNPN Telephone (OBGYWM) HILLARY FRAIRE ([id number]) 1990 F Date Time Provider Department 12/14/24 [...] with superimposed pre-eclampsia (HCC) [O11.9] Order(s):BIOPHYSICAL PROFILE [facility] [[id number]] Order #: [id number]: 3 FUTURE COMPREHENSIVE METABOLIC PANEL [SQCMP] Order #: [id number] FUTURE URIC ACID [SQURIC] Order #: [id number] FUTURE COMPLETE BLOOD COUNT [SQCBC] Order #: [id number] FUTURE Prescriptions as of 12/14/2024 - famotidine [...] Status:Closed by POLLY PEACE on 12/14/24 Normal [facility] CBC panel Auto (Bld)on 12-13 Erythrocyte distribution width (RBC) [Ratio] 12.8 % 11.5 - 15.0 % [facility] Hematocrit (Bld) [Volume fraction] 31.4 % Low 36.0 - 46.0 % [facility] Hemoglobin (Bld) [Mass/Vol] 10.8 g/dL Low 11.5 - 15.5 g/dL [facility] Interpretation and review of laboratory results Abnormal [facility] MCH (RBC) [Entitic mass] 30.9 pg 26.0 - 34.0 pg [facility] MCHC (RBC) [Mass/Vol] 34.4 g/dL 30.5 - 36.0 g/dL [facility] MCV (RBC) [Entitic vol] 89.7 fL 80.0 - 100.0 fL [facility] Nucleated RBC (Bld) [#/Vol] NINF [facility] Platelet mean volume (Bld) [Entitic vol] 11.4 fL 9.0 - 12.7 fL [facility] Platelets (Bld) [#/Vol] 309 10*3/uL [facility] RBC (Bld) [#/Vol] 3.50 10*6/uL Low 3.90 - 5.2 0 m/uL [facility] WBC (Bld) [#/Vol] 10.91 10*3/uL [facility] Erythrocyte distribution width (RBC) [Ratio] 12.8 % Normal 11.5-15.0 [facility] Comment on above: Order Comment: Speci men Type: BLOOD SPECIMEN [facility] Facility: [facility] Address: [address] [place] [address] Performed By: #### 2 4323-8, 3083-04 #### [facility] CLIA [id number] [address] [place] [address] [place] Hematocrit (Bld) [Volume fraction] 31.4 % Low 36.0-46.0 [facility] Comment on above: Order Comment: Speci men Type: BLOOD SPECIMEN [facility] Facility: [facility] Address: [address] [place] [address] Performed By: #### 2 4323-8, 3083-04 #### [facility] CLIA [id number] [address] [place] [address] [place] Hemoglobin (Bld) [Mass/Vol] 10.8 g/dL Low 11.5-15.5 [facility] Comment on above: Order Comment: Speci men Type: BLOOD SPECIMEN [facility] Facility: [facility] Address: [address] [place] [address] Performed By: #### 2 4323-8, 3083-04 #### [facility] CLIA [id number] [address] [place] [address] [place] MCH (RBC) [Entitic mass] 30.9 pg Normal 26.0-34.0 [facility] Comment on above: Order Comment: Speci men Type: BLOOD SPECIMEN [facility] Facility: [facility] Address: [address] [place] [address] Performed By: #### 2 4323-8, 3083-1 #### [facility] CLIA [id number] [address] [place] [address] [place] MCHC (RBC) [Mass/Vol] 34.4 g/dL Normal 30.5-36.0 [facility] Comment on above: Order Comment: Speci men Type: BLOOD SPECIMEN [facility] Facility: [facility] Address: [address] [place] [address] Performed By: #### 2 4323-8, 3083- #### [facility] CLIA [id number] [address] [place] [address] [place] MCV (RBC) [Entitic vol] 89.7 fL Normal 80.0-100.0 C [facility] Comment on above: Order Comment: Speci men Type: BLOOD SPECIMEN [facility] Facility[facility] Address: [address] [place] [address] Performed By: #### 2 4323-8, 3083- #### [facility] CLIA [id number] [address] [place] [address] [place] Nucleated RBC (Bld) [#/Vol] 10*3/uL Normal <0.01 [facility] Comment on above: Order Comment: Speci men Type: BLOOD SPECIMEN [facility]ing Facility: [facility] Address: [address] [place] [address] Performed By: #### 2 4323-8, 308-1 #### [facility] CLIA [id number] [address] [place] [address] [place] Platelet mean volume (Bld) [Entitic vol] 11.4 fL Normal 9.0-12.7 [facility] Comment on above: Order Comment: Speci men Type: BLOOD SPECIMEN [facility] Facility: [facility] Address: [address] [place] [address] Performed By: #### 2 4323-8, 3084-1 #### [facility] CLIA [id number] [address] [place] [address] [place] Platelets (Bld) [#/Vol] 309 10*3/uL Normal 150-400 [facility] Comment on above: Order Comment: Speci men Type: BLOOD SPECIMEN [facility] Facility: [facility] Address: [address] [place] [address] Performed By: #### 2 4323-8, 308-1 #### [facility] CLIA [id number] [address] [place] [address] [place] RBC (Bld) [#/Vol] 3.50 10*6/uL Low 3.90-5.20 [facility] Comment on above: Order Comment: Speci men Type: BLOOD SPECIMEN [facility] Facility[facility] Address: [address] [place] [address] Performed By: #### 2 4323-8, 308-1 #### [facility] CLIA [id number] [address] [place] [address] [place] WBC (Bld) [#/Vol] 10.91 10*3/uL Normal 3.70-11.00 [facility] Comment on above: Order Comment: Speci men Type: BLOOD SPECIMEN [facility] Facility: [facility] Address: [address] [place] [address] Performed By: #### 2 4323-8, 3084-1 #### [facility] CLIA [id number] [address] [place] [address] [place] Creatinine and Glomerular fi ltration rate.predicted panel (S/P/Bld)on 12-13-2024 Creatinine [Mass/Vol] 0.81 mg/dL 0.58 - 0.96 mg/dL [facility] GFR/1.73 sq M.predicted among non-blacks MDRD (S/P/Bld) [Vol rate/Area] 98 mL/min/{1.73_m2} - PINF [facility] Comment on above: Estimated Glomerular Filtration Rate [...] GFR. Creatinine [Mass/Vol] 0.81 mg/dL Normal 0.58-0.96 [facility] Comment on above: Order Comment: Speci galdino Type: BLOOD SPECIMENOrdering Facility: [facility] Address: [address] [place] [address] Performed By: #### 4 5066-8, 20020-2, 1 ####[facility] [id number] [place] [address] [place] eGFRcr SerPlBld CKD-EPI 2020 98 mL/min/1.73m??? Normal >=60 [facility] Comment on above: Order Comment: Anat ahmadi Type: BLOOD SPECIMENOrdering Facility: [facility] Address: [address] [place] [address] Result Comment: Jelly mated Glomerular Filtration Rate [...] actual GFR. Performed By: #### 4 5066-8, 20548-3, 308-1 ####[facility] [id number] [place] [address] [place] Hepatic function 2000 panelo n 12-13-2024 Albumin [Mass/Vol] 3.7 g/dL Low 3.9 - 4.9 g/dL [facility] ALP [Catalytic activity/Vol] 112 U/L 34 - 123 U/L [facility] ALT [Catalytic activity/Vol] 52 U/L High 7 - 38 U/L [facility] AST [Catalytic activity/Vol] 41 U/L High 13 - 35 U/L [facility] Bilirubin [Mass/Vol] 0.8 mg/dL 0.2 - 1 .3 mg/dL [facility] Bilirubin.conjugated [Mass/Vol] 0.4 mg/dL High NINF - 0.3 mg/dL [facility] Interpretation and review of laboratory results Abnormal [facility] Protein [Mass/Vol] 6.7 g/dL 6.3 - 8.0 g/dL [facility] Albumin [Mass/Vol] 3.7 g/dL Low 3.9-4.9 [facility] Comment on above: Order Comment: Speci men Type: BLOOD SPECIMENOrdering Facility: [facility] Address: [address] [place] [address] Performed By: #### 4 5066-8, 35488-9, 3084-1 ####[facility] [id number] [place] [address] [place] ALP [Catalytic activity/Vol] 112 U/L Normal 34-123 [facility] Comment on above: Order Comment: Speci men Type: BLOOD SPECIMENOrdering Facility: [facility] Address: [address] [place] [address] Performed By: #### 4 5066-8, 78410-4, 3084-1 ####[facility] [id number] [place] [address] [place] ALT [Catalytic activity/Vol] 52 U/L High 7-38 [facility] Comment on above: Order Comment: Speci men Type: BLOOD SPECIMENOrdering Facility: [facility] Address: [address] [place], [place] [address] Performed By: #### 4 5066-8, 11021-5, 308-1 ####[facility] ARTUROLA FOLLETTENCLIA [id number] [place] [address] [place] AST [Catalytic activity/Vol] 41 U/L High 13-35 [facility] Comment on above: Order Comment: Speci men Type: BLOOD SPECIMENOrdering Facility: [facility] Address: [address] [place], [place] [address] Performed By: #### 4 5066-8, 27238-2, 308-1 ####[facility] [id number] [place] [address] [place] Bilirubin [Mass/Vol] 0.8 mg/dL Normal 0.2-1.3 [facility] Comment on above: Order Comment: Speci men Type: BLOOD SPECIMENOrdering Facility: [facility] Address: [address] [place] [address] Performed By: #### 4 5066-8, 15225-7, 308-1 ####[facility] [id number] [place] [address] [place] Bilirubin.conjugated [Mass/Vol] 0.4 mg/dL High <0.3 [facility] Comment on above: Order Comment: Speci men Type: BLOOD SPECIMENOrdering Facility: [facility] Address: [address] [place], [place] [address] Performed By: #### 4 5066-8, 09343-8, 308-1 ####[facility] [id number] [place] [address] [place] Protein [Mass/Vol] 6.7 g/dL Normal 6.3-8.0 [facility] Comment on above: Order Comment: Speci men Type: BLOOD SPECIMENOrdering Facility: [facility] Address: [address] [place] [address] Performed By: #### 4 5066-8, 90994-5, 3084-1 ####[facility] [id number] [place] [id number] [place] No Panel InformationOrdered By: Ashley Lemus on 12-13-2024 Interpretation and review of laboratory results Normal [facility] PROTEIN / CREATININE RATIOon 12-13-2024 Protein/Creatinine (U) [Mass ratio] 0.77 mg/mg High NINF - 0.15 mg/mg [facility] Comment on above: Adult Proteinuria Ca tegories: [...] (U) [Mass ratio] 0.77 mg/mg High <0.15 [facility] Comment on above: Order Comment: Speci men Type: URINE SPECIMEN [facility] Address: [address] [place] [address] Result Comment: Adul t Proteinuria Categories: <0.15 mg/mg is considered normal to mildly increased 0.15 - 0.50 mg/mg is considered moderately increased >0.50 mg/mg is considered severely increased KDIGO. (2013). KDIGO 2012 Clinical Practice Guideline for the Evaluation and Management of Chronic Kidney Disease. Official Journal of the International Society of Nephrology, 3(1), 1-150. Performed By: #### 2 890-2 #### [facility] CLIA [id number] [address] [place] [address] [place] Protein/Creatinine (U) [Mass ratio]on 12-13-2024 Creatinine (U) [Mass/Vol] 98.1 mg/dL 20.0 - 300.0 mg/dL [facility] Interpretation and review of laboratory results Abnormal [facility] Protein (U) [Mass/Vol] 76 mg/dL High 0 - 20 mg/dL [facility] Creatinine (U) [Mass/Vol] 98.1 mg/dL Normal 20.0-300.0 [facility] Comment on above: Order Comment: Speci men Type: URINE SPECIMEN [facility] Address: [address] [place] [address] Performed By: #### 2 890-2 #### [facility] CLIA [id number] [address] [place] [address] [place] Protein (U) [Mass/Vol] 76 mg/dL High 0-20 Cl [facility] Comment on above: Order Comment: Speci men Type: URINE SPECIMEN [facility] Address: [address] [place] [address] Performed By: #### 2 890-2 #### [facility] CLIA [id number] [address] [place] [address] [place] URIC ACIDOrdered By: Breanna Lemus on 12-13-2024 Urate [Mass/Vol] 5.0 mg/dL 2.5 - 6.6 mg/dL [facility] URINE OB DIP B/Oon 5 Glucose Ql (U) Negative Neg mg/dL [facility] Interpretation and review of laboratory results Normal [facility] Protein.monoclonal (U) [Mass/Vol] 30 mg/dL Neg [facility] Urate SerPl-mCncon 5 Urate [Mass/Vol] 5.0 mg/dL Normal 2.5-6.6 [facility] Comment on above: Order Comment: Speci men Type: BLOOD SPECIMENOrdering Facility: [facility] Address: [address] [place] [address] Performed By: #### 4 5066-8, 91425-0, 3084-1 ####[facility] [id number] [place] [address] [place] Discharge Instructionon Discharge Instruction [facility] Medical Records Department [address] [place] [address] Instructions for Home/Discharge Instructions 12/08/24 0740 MR#: [id number] Acct: [id number] Name: HILLARY FRAIRE Rep #: [id number] : 1990 34 From: Latesha Elena MD PCP: HIRO Mart Status:REG [facility] Discharge Instructions Diet Discharge Diet: No restrictions [...] Care Provider: Madison Butler Instructions Print Language: Polish Discharge Orders/Prescriptions Prescriptions: Continued kzgemdts-fra-Gv-FA 1 mg Tablet 1 tab PO DAILY [...] Care 12/08/24 0741 Latesha Elena MD CC: GENERAL HARDWARE SALESPERSONDelgadoC Madison Butler Signed Normal [facility] H AND P Exam - Surgicalon H&P Exam - Surgical [facility] Medical Records Department [address] [place] [address] H P Exam - Surgical 12/08/24 0737 MR#: [id number] Acct: [id number] Name: HILLARY FRAIRE Rep #: [id number] : 1990 34 From: Latesha Elena MD PCP: HIRO Mart Status:REG [facility] Location: [place] [address] HPI - General General Date of Admission: 12/08/24 Date of Service: 12/08/24 Chief Complaint: Left flank pain HPI Narrative HILLARY FRAIRE, is a 34 F who presents for a cystoscopy with left ureteral stent change after her inserted stent migrated and her flank pain returned from obstruction due to a large ureteropelvic junction stone. [facility] Medical History Wears glasses Wears contact lenses Low iron Heartburn Hydronephrosis Ureteropelvic junction calculus SROM (spontaneous rupture of membranes) Anxiety Home Medications ???Medication ???Instructions ???Recorded ???Last Taken ???Type hcmltjxg-neo-Ds-FA 1 mg 1 tab PO DAILY 01/08/21 [...] procedure, r (more content not included)... Normal [facility] MR/POSTOP.ANEon 12-08-2024 MR/POSTOP.ANE [facility] Medical Records Department [address] [place] [address] Anesthesia Postop Eval I 12/08/24819 MR#: [id number] Acct: [id number] Name: AMY FRAIREILLY HERNESTO Rep #: [id number] : 1990 34 From: Latesha Charlton CRNA PCP: HIRO Mart Status:REG [facility] Y Race: C Location: [place] [address] Anesthesia: Postop Eval I Current Vital Signs [...] Charlton CRNA Cosigner Signature: Date CC: Signed [facility] Operative Reporton Operative Report [facility] Medical Records Department [address] [place] [address] Operative Report 12/08/24740 MR#: [id number] Acct: [id number] Name: KEKEHILLARY ERIC Rep #: [id number] : 1990 34 From: Latesha Elena MD PCP: HIRO Mart Status:DEP [facility] Location: [facility] Operative Report (Standard) Operative Information Date of Procedure: 12/08/24 Pre-Operative Diagnosis: Left ureteropelvic junction stone with obstruction, UTI Post-Operative Diagnosis: Same Surgery/Procedure Performed: Cystoscopy with left ureteral stent change pad making machine operator: No Type of Anesthesia: Spinal RN [...] TS that apply: Drains Drain details: 6 Dutch by 28 cm JJ stent Estimated Blood Loss: <5cc Specimen collected: No Description of surgery: The patient is a 34-year-old female with a large left ureteropelvic junction stone with obstruction. She is 34 weeks . She had a left ureteral stent inserted 2 days ago. It was a 4.5 Dutch in diameter stent. Within 12 hours the [...] the stone in the renal pelvis. 6 Dutch 28 cm stent was placed over the wire with good positioning in the renal pelvis as well as the urinary bladder. At this time the bladder was emptied and the cystoscope was removed. She was awakened and taken to the recovery room in good condition. There were no complications during this procedure. Surgical Findings: Migrated 4.5 Dutch left ureteral stent, replaced with a 6 Dutch 28 cm JJ stent Complications Complications: No Admit VTE Documentation VTE Present on Admission: Yes VTE Mechan Device Prophylaxis: SCD's VTE Pharm Prophylaxis ordered?: No Reason prophylaxis not ordered: Treatment Not Indicated 12/08/24 1226 Cosigner Signature (if applicable): CC: HIRO Butler; Dr. Latesha Elena MD Signed Normal [facility] Kidney and Bladderon [address] [facility] Imaging Services [address] [place], [place] [address] Kidney and Bladder MR#: [id number] Acct: [id number] Name: HILLARY FRAIRE Rep #: [id number] : 1990 F 34 From: Ricardo Meza MD PCP: Dr. Chiki Gonzales MD Status: REG CLI Study: Kidney and Bladder Date of Exam: 12/07/24 Exam# [id number] Ordering Dr: Polly Hamilton MD PROCEDURE: KIDNEY AND BLADDER 12/07/2024 REASON FOR EXAM: INCREASED PAIN Left renal calculus. TECHNIQUE: Procedure Code: USKI Modality: US Procedure: KIDNEY AND BLADDER COMPARISON: December 04, 2024 FINDINGS: Kidneys: Right kidney is 12.3 x 5.9 x 5.2 cm, while the left is 15.4 x 7.3 x 6.6 cm. [place]: No collecting system dilation on the right [...] in position. See above description Reading Location: [id number] CC: Dr. Polly Hamilton MD; Dr. Chiki Gonzales MD Infection Control Preventionist: Signed Normal [facility] OB Triage Physician Noteon 0 12-07-[address] [facility] Medical Records Department [address] [place] [address] OB Triage Physician Note 12/07/24 0137 MR#: [id number] Acct: [id number] Name: HILLARY FRAIRE Rep #: [id number] : 1990 34 From: Polly Hamilton MD PCP: Dr. Chiki Gonzales MD Status:REG CLI [facility] H[facility] - General General Date of Admission: [...] Final BRITTANY: 01/14/25 Gestational age: 34+4 PFSH [facility] Medical History (Updated 12/07/24 @ 01:[address] Polly Hamilton MD) Hydronephrosis Ureteropelvic junction calculus SROM (spontaneous rupture of membranes) Anxiety Home Medications ???Medication ???Instructions ???Recorded ???Last Taken ???Type rzivsvlu-xkx-Jg-FA 1 mg 1 tab PO DAILY 01/08/21 [...] MD; Dr. Chiki Gonzales MD Signed Normal [facility] Absolute lymphocyte countOrd ered By: Adina Krueger on 12-06-2024 Lymphocytes Auto (Unsp spec) [#/Vol] 1.84 10*3/uL 0.83-4.51 [facility] Absolute neutrophil countOrd ered By: Adina Krueger on 12-06-2024 Neutrophils (Bld) [#/Vol] 11.6 10*3/uL High 2.0-7.7 [facility] Automated lymphocyte count a s percentage of total leukocytesOrdered By: Adina Krueger on 12-06-2024 Lymphocytes/100 WBC Auto (Unsp spec) 12.4 % Low 19-41 [facility] Basophil percentageOrdered B y: Adina Krueger on 12-06-2024 Basophils/100 WBC (Bld) 0.2 % 0-1 [facility] CBC W/Diff, Automatedon Absolute Lymph 1.84 X10 3/uL Normal 0.83-4.51 [facility] Comment on above: Performed By: #### L 501.1105 #### [facility] Laboratory [address] [place], [address] Absolute Neut 11.6 X10 3/uL High 2.0-7.7 [facility] Comment on above: Performed By: #### L 501.1105 #### [facility] [address] [place], [address] Basophils/100 WBC (Bld) 0.2 % Normal 0-1 [facility] Comment on above: Performed By: #### L 501.1105 #### [facility] [address] [place], [address] Eosinophils/100 WBC (Bld) 0.2 % Normal 0-5 [facility] Comment on above: Performed By: #### L 501.1105 #### [facility] [address] [place], [address] Erythrocyte distribution width (RBC) [Ratio] 13.1 % Normal 11.6-14.6 [facility] Comment on above: Performed By: #### L 501.1105 #### [facility] [address] [place], [address] Hematocrit (Bld) [Volume fraction] 27.3 % Low 37-47 [facility] Comment on above: Performed By: #### L 501.1105 #### [facility] [address] [place], [address] Hemoglobin (Bld) [Mass/Vol] 9.1 g/dL Low 12.0-15.0 [facility] Comment on above: Performed By: #### L 501.1105 #### [facility] [address] [place], [address] IG% 0.900 Normal 0.0-0.9 [facility] Comment on above: Result Comment: IG% - Immature Granulocytes (promyelocytes, myelocytes and metamyelocytes) > 1% indicates that a LEFT SHIFT is Present. Performed By: #### L 501.1105 #### [facility] [address] [place], [address] Lymphocytes/100 WBC (Bld) 12.4 % Low 19-41 [facility] Comment on above: Performed By: #### L 501.1105 #### [facility] [address] [place], [address] MCH (RBC) [Entitic mass] 30.3 pg Normal 27.0-32.0 [facility] Comment on above: Performed By: #### L 501.1105 #### [facility] [address] [place], [address] MCHC (RBC) [Mass/Vol] 33.3 g/dL Normal 32-36 [facility] Comment on above: Performed By: #### L 501.1105 #### [facility] [address] [place], [address] MCV (RBC) [Entitic vol] 91.0 fL Normal 81-99 [facility] Comment on above: Performed By: #### L 501.1105 #### [facility] [address] [place], [address] Monocytes/100 WBC (Bld) 8.0 % Normal 0-10 [facility] Comment on above: Performed By: #### L 501.1105 #### [facility] [address] [place], [address] Neutrophils/100 WBC (Bld) 78.3 % High 47-70 [facility] Comment on above: Performed By: #### L 501.1105 #### [facility] [address] [place], [address] Nucleated RBC (Bld) [#/Vol] 0 10*3/uL Normal 0-5 [facility] Comment on above: Performed By: #### L 501.1105 #### [facility] [address] [place], [address] Platelet mean volume (Bld) [Entitic vol] 11.9 fL Normal 6.2-12.0 [facility] Comment on above: Performed By: #### L 501.1105 #### [facility] [address] [place], [address] Platelets (Bld) [#/Vol] 167 10*3/uL Normal 150-450 [facility] Comment on above: Performed By: #### L 501.1105 #### [facility] [address] [place], [address] RBC (Bld) [#/Vol] 3.00 10*6/uL Low 4.2-5.4 [facility] Comment on above: Performed By: #### L 501.1105 #### [facility] [address] [place], [address] RDW SD 42.8 fl Normal 35.1-43.9 [facility] Comment on above: Performed By: #### L 501.1105 #### [facility] [address] [place], [address] WBC (Bld) [#/Vol] 14.8 10*3/uL High 4.4-11.0 [facility] Comment on above: Performed By: #### L 501.1105 #### [facility] [address] [place], [address] Eosinophil percentageOrdered By: Adina Krueger on 12-06-2024 Eosinophils/100 WBC (Bld) 0.2 % 0-5 [facility] Erythrocyte distribution wid th ratioOrdered By: Adina Krueger on 12-06-2024 Erythrocyte distribution width (RBC) [Ratio] 13.1 % 11.6-14.6 [facility] Erythrocyte distribution wid th standard deviationOrdered By: Adina Krueger on 12-06-2024 Erythrocyte distribution width (RBC) [Ratio] 42.8 fl 35.1-43.9 [facility] Hematocrit Auto (Bld) [Volum e fraction]Ordered By: Adina Krueger on 12-06-2024 Hematocrit (Bld) [Volume fraction] 27.3 % Low 37-47 [facility] Hemoglobin measurementOrdere d By: Adina Krueger on 12-06-2024 Hemoglobin (Bld) [Mass/Vol] 9.1 g/dL Low 12.0-15.0 [facility] Immature granulocytes/100 WB C Auto (Bld)Ordered By: Adina Krueger on 12-06-2024 Immature granulocytes/100 WBC (Bld) 0.900 % 0.0-0.9 [facility] Comment on above: IG% - Immature Granu locytes (promyelocytes, myelocytes and metamyelocytes) > 1% indicates that a LEFT SHIFT is Present. MCV (mean corpuscular volume ) determinationOrdered By: Adina Krueger on 12-06-2024 MCV (RBC) [Entitic vol] 91.0 fL 81-99 [facility] MR/POSTOP.ANEon 12-06-2024 MR/POSTOP.[facility] Medical Records Department [address] [place] [address] Anesthesia Postop Eval I 12/06/241044 MR#: [id number] Acct: [id number] Name: HILLARY FRAIRE Rep #: [id number] : 1990 34 From: Darryl Harvey MD PCP: Dr. Chiki Gonzales MD Status:ADM IN Y Race: C Location: [place] [address] Anesthesia: Postop Eval I Current Vital Signs [...] MD Cosigner Signature: Date CC: Signed Normal [facility] MR/NQVEALDI7ke 12-06-2024 MR/POSTOPAN2 [facility] Medical Records Department [address] [place] [address] Anesthesia Postop Eval II 12/06/24 1047 MR#: [id number] Acct: [id number] Name: HILLARY FRAIRE Rep #: [id number] : 1990 34 From: Darryl Harvey MD PCP: Dr. Chiki Gonzales MD Status:ADM IN Y Race: C Location: [place] [id number] Anesthesia Postop Eval I Sum Postop Eval [...] MD Cosigner Signature: Date CC: Signed Normal [facility] Mean corpuscular hemoglobin (MCH) determinationOrdered By: Adina Krueger on 12-06-2024 MCH (RBC) [Entitic mass] 30.3 pg 27.0-32.0 [facility] Mean corpuscular hemoglobin concentration (MCHC) determinationOrdered By: Adina Krueger on 12-06-2024 MCHC (RBC) [Mass/Vol] 33.3 g/dL 32-36 [facility] Mean platelet volume determi nationOrdered By: Adina Krueger on 12-06-2024 Platelet mean volume (Bld) [Entitic vol] 11.9 fL 6.2-12.0 [facility] Monocyte percentageOrdered B y: Adina Krueger on 12-06-2024 Monocytes/100 WBC (Bld) 8.0 % 0-10 [facility] Neutrophil percentageOrdered By: Adina Krueger on 12-06-2024 Neutrophils/100 WBC (Bld) 78.3 % High 47-70 [facility] Nucleated red blood cell per centageOrdered By: Adina Krueger on 12-06-2024 Nucleated RBC/100 WBC (Bld) [Ratio] 0 % 0-5 [facility] Operative Reporton Operative Report [facility] Medical Records Department [address] [place] [address] Operative Report 12/06/24 1007 MR#: [id number] Acct: [id number] Name: HILLARY FRAIRE Rep #: [id number] : 1990 34 From: Latesha Elena MD PCP: Dr. Chiki Gonzales MD Status:ADM IN Location: MP399-3 Operative Report (Standard) Operative Information Date of Procedure: 12/06/24 Pre-Operative Diagnosis: Left ureteropelvic junction stone with obstruction and urinary tract infection Post-Operative Diagnosis: Same Surgery/Procedure Performed: Cystoscopy with left ureteral stent insertion pad making machine operator: No Type of Anesthesia: Spinal RN Documented Start/Stop Times: Operation Date: 12/06/24 10:10 Case Time Anesthesia Start 12/06/24 10:08 Into Room 12/06/24 10:08 Procedure Start 12/06/24 10:23 Procedure End 12/06/24 10:29 Anesthesia End 12/06/24 10:37 Out of Room 12/06/24 10:37 Into Recovery 12/06/24 10:41 Procedure Start Time: 10:23 Procedure Stop Time: 10:29 Select all DRAINS/GRAFTS/IMPLAN TS that apply: Drains Drain details: 4.5 Dutch x 28 cm JJ stent Estimated Blood [...] stone in the renal pelvis. A 4.5 Dutch 28 cm stent was placed over the wire with good positioning in the renal pelvis as well as the urinary bladder. At this time the bladder was emptied and the cystoscope was removed. She was awakened and taken to the recovery room in good condition. There were no complications during this procedure. Surgical Findings: 4.5 Dutch x 28 cm JJ stent Complications Complications: No Admit VTE Documentation VTE Present on Admission: Yes VTE Mechan Device Prophylaxis: SCD's VTE Pharm Prophylaxis ordered?: No Reason prophylaxis not ordered: Treatment Not Indicated 12/06/24 1048 Cosigner Signature (if applicable): CC: CARLOS Moreno; Dr. Latesha Elena MD; Dr. Chiki Gonzales MD Signed Normal [facility] Platelet countOrdered By: Melody Krueger on 12-06-2024 Platelets (Bld) [#/Vol] 167 10*3/uL 150-450 [facility] RBC Auto (Bld) [#/Vol]Ordere d By: Adina Krueger on 12-06-2024 RBC (Bld) [#/Vol] 3.00 10*6/uL Low 4.2-5.4 [facility] Urine Cultureon 12-06-2024 URC Escherichia coli [place] Count 11,000-25,000 Escherichia coli: REACTION Ampicillin Islt [...] TMP SMX Islt CELESTINO <=20 S Normal [facility] Comment on above: Performed By: #### L 501.1105 #### [facility] [address] [facility] [place], [place], [address] White blood cell (WBC) count Ordered By: Adina Krueger on 12-06-2024 WBC (Bld) [#/Vol] 14.8 10*3/uL High 4.4-11.0 [facility] OB Triage Physician Noteon 0 12-05-[address] [facility] Medical Records Department [address] [place] [address] OB Triage Physician Note 12/05/24 1333 MR#: [id number] Acct: [id number] Name: HILLARY FRAIRE Rep #: [id number] : 1990 34 From: Adina Krueger MD PCP: Dr. Chiki Gonzales MD Status:ADM IN Y Location: [id number] HPI - General General Date of Admission: [...] Medications ???Medication ???Instructions ???Recorded ???Last Taken ???Type jwuklqsw-hby-Wy-FA 1 mg 1 tab PO DAILY 01/08/21 [...] Dr. Adina Krueger MD * Signed Normal [facility] Abdomen/Pelvis without Conto n 12-04-2024 Abdomen/Pelvis without Cont [facility] Imaging Services [address] [place] [address] Abdomen/Pelvis without Cont MR#: [id number] Acct: [id number] Name: HILLARY FRAIRE Rep #: [id number] : 1990 F 34 From: Breezy Paige MD PCP: Dr. Chiki Gonzales MD Status: REG CLI Study: Abdomen/Pelvis without Cont Date of Exam: 11/07 Exam# [id number] Ordering Dr: Sheyla Moreno CNM PROCEDURE: ABDOMEN/PELVIS [...] x 11 mm. Left-sided hydronephrosis. [facility] CC: CARLOS Moreno; Dr. Chiki Gonzales MD Infection Control Preventionist: Signed Normal [facility] Bilirubin Test strip Ql (U)O rdered By: Sheyla Moreno on 12-04-2024 Bilirubin Ql (U) Negative Negative [facility] CBC W/Diff, Automatedon 11-07 Absolute Lymph 1.65 X10 3/uL Normal 0.83-4.51 [facility] Comment on above: Performed By: #### L 100.0100 #### [facility] [address] [place], [address] Absolute Neut 11.2 X10 3/uL High 2.0-7.7 [facility] Comment on above: Performed By: #### L 100.0100 #### [facility] [address] [place], [address] Basophils/100 WBC (Bld) 0.3 % Normal 0-1 [facility] Comment on above: Performed By: #### L 100.0100 #### [facility] [address] [place], [address] Eosinophils/100 WBC (Bld) 0.1 % Normal 0-5 [facility] Comment on above: Performed By: #### L 100.0100 #### [facility] [address] [place], [address] Erythrocyte distribution width (RBC) [Ratio] 12.7 % Normal 11.6-14.6 [facility] Comment on above: Performed By: #### L 100.0100 #### [facility] [address] [place], [address] Hematocrit (Bld) [Volume fraction] 32.2 % Low 37-47 [facility] Comment on above: Performed By: #### L 100.0100 #### [facility] [address] [place], [address] Hemoglobin (Bld) [Mass/Vol] 11.0 g/dL Low 12.0-15.0 [facility] Comment on above: Performed By: #### L 100.0100 #### [facility] [address] [place], [address] IG% 0.900 Normal 0.0-0.9 [facility] Comment on above: Result Comment: IG% - Immature Granulocytes (promyelocytes, myelocytes and metamyelocytes) > 1% indicates that a LEFT SHIFT is Present. Performed By: #### L 100.0100 #### [facility] [address] [place], [address] Lymphocytes/100 WBC (Bld) 12.0 % Low 19-41 [facility] Comment on above: Performed By: #### L 100.0100 #### [facility] [address] [place], [address] MCH (RBC) [Entitic mass] 30.8 pg Normal 27.0-32.0 [facility] Comment on above: Performed By: #### L 100.0100 #### [facility] [address] [place], [address] MCHC (RBC) [Mass/Vol] 34.2 g/dL Normal 32-36 [facility] Comment on above: Performed By: #### L 100.0100 #### [facility] [address] [place], [address] MCV (RBC) [Entitic vol] 90.2 fL Normal 81-99 [facility] Comment on above: Performed By: #### L 100.0100 #### [facility] [address] [place], [address] Monocytes/100 WBC (Bld) 5.4 % Normal 0-10 [facility] Comment on above: Performed By: #### L 100.0100 #### [facility] [address] [place], [address] Neutrophils/100 WBC (Bld) 81.3 % High 47-70 [facility] Comment on above: Performed By: #### L 100.0100 #### [facility] [address] [place], [address] Nucleated RBC (Bld) [#/Vol] 0 10*3/uL Normal 0-5 [facility] Comment on above: Performed By: #### L 100.0100 #### [facility] [address] [place], [address] Platelet mean volume (Bld) [Entitic vol] 11.8 fL Normal 6.2-12.0 [facility] Comment on above: Performed By: #### L 100.0100 #### [facility] [address] [place], [address] Platelets (Bld) [#/Vol] 185 10*3/uL Normal 150-450 [facility] Comment on above: Performed By: #### L 100.0100 #### [facility] [address] [place], [address] RBC (Bld) [#/Vol] 3.57 10*6/uL Low 4.2-5.4 [facility] Comment on above: Performed By: #### L 100.0100 #### [facility] [address] [place], [address] RDW SD 41.8 fl Normal 35.1-43.9 [facility] Comment on above: Performed By: #### L 100.0100 #### [facility] [address] [place], [address] WBC (Bld) [#/Vol] 13.8 10*3/uL High 4.4-11.0 [facility] Comment on above: Performed By: #### L 100.0100 #### [facility] [address] [place], [address] Demario 12-04-2024 DIMITRIOS Telephone (DERRICKIN) HILLARY FRAIRE ([id number]) 1990 F Date Time Provider Department 12/04/24 AMISHA ALBERTO GYNMN During your visit today, we recorded the following information about you: Amisha Alberto MD 12/04/2024 1:45 PM Addendum Telephone Encounter Hillary Fraire [id number] Provider: Dr. Baltazar Patient identity verified by name and . Hillary Fraire is a 34 year old at 34w1d. Attempted to call patient x3 regarding pain, sent to [employer]. Voicemail is full, unable to leave message. [...] Status:Closed by AMISHA ALBERTO on 12/04/24 Normal [facility] Glomerular filtration rate ( GFR) estimation/1.73 sq m using serum, plasma, or whole bOrdered By: Sheyla Moreno on 12-04-2024 GFR/1.73 sq M.predicted among non-blacks MDRD (S/P/Bld) [Vol rate/Area] 76 mL/min/{1.73_m2} >60 [facility] Comment on above: mL/min/1.73m2 CKD-EP I Creatinine Equation (2020) Ketones Test strip Ql (U)Ord ered By: Sheyla Moreno on 12-04-2024 Ketones Ql (U) Negative Negative [facility] Microscopic analysis of urin e for red blood cells (RBC)Ordered By: Sheyla Moreno on 12-04-2024 Microscopic analysis of urine for red blood cells (RBC) 0-5 SEEN /hpf 0-5 [facility] Mucus LM Ql (Urine sed)Order ed By: Sheyla Moreno on 12-04-2024 Mucus Ql (Urine sed) 0 SEEN /hpf [facility] Nitrite Test strip Ql (U)Ord ered By: Sheyla Moreno on 12-04-2024 Nitrite Ql (U) Negative Negative [facility] OB Triage Physician Noteon 0 12-04-[address] [facility] Medical Records Department [address] [place] [address] OB Triage Physician Note 12/04/24 1131 MR#: [id number] Acct: [id number] Name: HILLARY FRAIRE Rep #: [id number] : 1990 34 From: Sheyla Moreno CNM PCP: Dr. Chiki Gonzales MD Status:REG CLI Y Location: EO529-5 HPI - General General Date of Service: [...] prophylaxis. Maternal Data Information Final BRITTANY: 01/14/25 [facility] Medical History (Updated 12/04/24 @ 12:46 by Sheyla Moreno CNM) SROM (spontaneous rupture of membranes) Anxiety Home Medications ???Medication ???Instructions ???Recorded ???Last Taken ???Type nmilvpux-agf-Rv-FA 1 mg 1 tab PO DAILY 01/08/21 [...] person Tonia (more content not included)... Normal [facility] Protein Test strip Ql (U)Ord ered By: Sheyla Moreno on 12-04-2024 Protein Ql (U) 15 mg/dl High Negative [facility] Serum Creatinine AND GFRon 0 12-04-2024 Creatinine [Mass/Vol] 1.00 mg/dL Normal 0.70-1.20 [facility] Comment on above: Performed By: #### L 501.1105 #### [facility] [address] [place], [place], [address] ECRCL 118.54 ml/min Normal 50-250 [facility] Comment on above: Performed By: #### L 501.1105 #### [facility] [address] [place], [address] GFR/1.73 sq M.predicted among non-blacks MDRD (S/P/Bld) [Vol rate/Area] 76 mL/min/{1.73_m2} Normal >60 [facility] Comment on above: Result Comment: mL/m in/1.73m2 CKD-EPI Creatinine Equation (2020) Performed By: #### L 501.1105 #### [facility] [address] [place], [address] Serum creatinine measurement (mass/volume)Ordered By: Sheyla Moreno on 12-04-2024 Creatinine [Mass/Vol] 1.00 mg/dL 0.70-1.20 [facility] Squamous epithelial cells de tection in urine sediment by light microscopyOrdered By: Sheyla Moreno on 12-04-2024 Epithelial cells.squamous LM Ql (Urine sed) 0-5 SEEN /hpf 5-10 [facility] Urinalysis, Completeon 12-04 EPI,SQUAMOUS 0-5 SEEN Normal 5-10 [facility] Comment on above: Order Comment: CLEAN CATCH Performed By: #### L 501.1105 #### [facility] [address] [place], [place], [id number] (410) RBC 0-5 SEEN Normal 0-5 [facility] Comment on above: Order Comment: CLEAN CATCH Performed By: #### L 501.1105 #### [facility] [address] [place], [address] WBC 5-10 SEEN Normal 0-5 [facility] Comment on above: Order Comment: CLEAN CATCH Performed By: #### L 501.1105 #### [facility] [address] [place], [address] BACTERIA 0 SEEN Normal None Seen [facility] Comment on above: Order Comment: CLEAN CATCH Performed By: #### L 501.1105 #### [facility] [address] [place], [address] Mucus Ql (Urine sed) 0 SEEN Normal [facility] Comment on above: Order Comment: CLEAN CATCH Performed By: #### L 501.1105 #### [facility] [address] [place], [address] Urine clarityOrdered By: Alessandra Moreno on 12-04-2024 Clarity (U) Sl. Cloudy Clear [facility] Urine color determinationOrd ered By: Sheyla Moreno on 12-04-2024 Color (U) Yellow Yellow [facility] Urine cultureOrdered By: Alessandra Moreno on 12-04-2024 Bacteria identified Cx Nom (U) Escherichia coli Abnormal [facility] Urine glucose detectionOrder ed By: Sheyla Moreno on 12-04-2024 Glucose Ql (U) Normal mg/dl Normal [facility] Urine leukocyte esterase det ection by dipstickOrdered By: Sheyla Moreno on 12-04-2024 Leukocyte esterase Test strip Ql (U) 25 /ul High Negative [facility] Urine pHOrdered By: Sheyla Moreno on 12-04-2024 pH (U) 7.0 [pH] 5.0 - 8.0 [facility] Urine sediment bacteria coun t by microscopy (number/high power field)Ordered By: Sheyla Moreno on 12-04-2024 Bacteria LM.HPF (Urine sed) [#/Area] 0 /[HPF] None Seen [facility] Urine specific gravity measu rementOrdered By: Sheyla Moreno on 12-04-2024 Specific gravity (U) [Rel density] 1.015 1.002-1.030 [facility] Urine urobilinogen measureme ntOrdered By: Sheyla Moreno on 12-04-2024 Urobilinogen Ql (U) 1 mg/dl High Normal [facility] White blood cell countOrdere d By: Sheyla Moreno on 12-04-2024 White blood cell count 5-10 SEEN /hpf 0-5 [facility] CBC W Auto Differential pane l (Bld)on 11-26-2024 Basophils (Bld) [#/Vol] 0.03 10*3/uL Normal <0.11 [facility] Comment on above: Order Comment: Speci men Type: BLOOD SPECIMEN Ordering Facility: [facility] Address: [address] [place] [address] Performed By: #### 2 4323-8, 3083-1 #### [facility] CLIA [id number] [address] [place] [address] [place] Basophils/100 WBC (Bld) 0.2 % Normal C [facility] Comment on above: Order Comment: Speci men Type: BLOOD SPECIMEN Ordering Facility: [facility] Address: [address] [place] [address] Performed By: #### 2 4323-8, 3083-1 #### [facility] CLIA [id number] [address] [place] [address] [place] Differential cell count method Nom (Bld) Auto Normal [facility] Comment on above: Order Comment: Speci men Type: BLOOD SPECIMEN Ordering Facility: [facility] Address: [address] [place] [address] Performed By: #### 2 4323-8, 3084-1 #### [facility] CLIA [id number] [address] [place] [address] [place] Eosinophils (Bld) [#/Vol] 0.07 10*3/uL Normal <0.46 [facility] Comment on above: Order Comment: Speci men Type: BLOOD SPECIMEN Ordering Facility: [facility] Address: [address] [place] [address] Performed By: #### 2 4323-8, 3083- #### [facility] CLIA [id number] [address] [place] [address] [place] Eosinophils/100 WBC (Bld) 0.6 % Normal [facility] Comment on above: Order Comment: Speci men Type: BLOOD SPECIMEN Ordering Facility: [facility] Address: [address] [place] [address] Performed By: #### 2 4323-8, 3083-04 #### [facility] CLIA [id number] [address] [place] [address] [place] Erythrocyte distribution width (RBC) [Ratio] 13.0 % Normal 11.5-15.0 [facility] Comment on above: Order Comment: Speci men Type: BLOOD SPECIMEN [facility]ing Facility: [facility] Address: [address] [place] [address] Performed By: #### 2 4323-8, 3083-04 #### [facility] CLIA [id number] [address] [place] [address] [place] Hematocrit (Bld) [Volume fraction] 32.7 % Low 36.0-46.0 [facility] Comment on above: Order Comment: Speci men Type: BLOOD SPECIMEN Ordering Facility: [facility] Address: [address] [place], [place] [address] Performed By: #### 2 4323-8, 3083-04 #### [facility] CLIA [id number] [address] [place] [address] [place] Hemoglobin (Bld) [Mass/Vol] 11.0 g/dL Low 11.5-15.5 [facility] Comment on above: Order Comment: Speci men Type: BLOOD SPECIMEN [facility]ing Facility: [facility] Address: [address] [place] [address] Performed By: #### 2 4323-8, 3083-04 #### [facility] CLIA [id number] [address] [place] [address] [place] Immature granulocytes (Bld) [#/Vol] 0.08 10*3/uL Normal <0.10 [facility] Comment on above: Order Comment: Speci men Type: BLOOD SPECIMEN [facility]ing Facility: [facility] Address: [address] [place] [address] Performed By: #### 2 4323-8, 3083-04 #### [facility] CLIA [id number] [address] [place] [address] [place] Immature granulocytes/100 WBC (Bld) 0.7 % Normal [facility] Comment on above: Order Comment: Speci men Type: BLOOD SPECIMEN [facility]ing Facility: [facility] Address: [address] [place] [address] Performed By: #### 2 4323-8, 3083-04 #### [facility] CLIA [id number] [address] [place] [address] [place] Lymphocytes (Bld) [#/Vol] 2.15 10*3/uL Normal 1.00-4.00 [facility] Comment on above: Order Comment: Speci men Type: BLOOD SPECIMEN [facility]ing Facility: [facility] Address: [address] [place] [address] Performed By: #### 2 4323-8, 3083-04 #### [facility] CLIA [id number] [address] [place] [address] [place] Lymphocytes/100 WBC (Bld) 17.7 % Normal [facility] Comment on above: Order Comment: Speci men Type: BLOOD SPECIMEN [facility] Facility: [facility] Address: [address] [place] [address] Performed By: #### 2 4328, 3083-04 #### [facility] CLIA [id number] [address] [place] [address] [place] MCH (RBC) [Entitic mass] 30.6 pg Normal 26.0-34.0 [facility] Comment on above: Order Comment: Speci men Type: BLOOD SPECIMEN [facility]ing Facility: [facility] Address: [address] [place] [address] Performed By: #### 2 432-8, 3083-04 #### [facility] CLIA [id number] [address] [place] [address] [place] MCHC (RBC) [Mass/Vol] 33.6 g/dL Normal 30.5-36.0 [facility] Comment on above: Order Comment: Speci men Type: BLOOD SPECIMEN [facility] Facility: [facility] Address: [address] [place] [address] Performed By: #### 2 4328, 3083-04 #### [facility] CLIA [id number] [address] [place] [address] [place] MCV (RBC) [Entitic vol] 90.8 fL Normal 80.0-100.0 C [facility] Comment on above: Order Comment: Speci men Type: BLOOD SPECIMEN [facility]ing Facility: [facility] Address: [address] [place] [address] Performed By: #### 2 4328, 3083-04 #### [facility] CLIA [id number] [address] [place] [address] [place] Monocytes (Bld) [#/Vol] 0.69 10*3/uL Normal <0.87 [facility] Comment on above: Order Comment: Speci men Type: BLOOD SPECIMEN [facility]ing Facility: [facility] Address: [address] [place] [address] Performed By: #### 2 4323-8, 3083-04 #### [facility] CLIA [id number] [address] [place] [address] [place] Monocytes/100 WBC (Bld) 5.7 % Normal [facility] Comment on above: Order Comment: Speci men Type: BLOOD SPECIMEN [facility]ing Facility: [facility] Address: [address] [place] [address] Performed By: #### 2 4323-8, 308-1 #### [facility] CLIA [id number] [address] [place] [address] [place] Neutrophils (Bld) [#/Vol] 9.16 10*3/uL High 1.45-7.50 [facility] Comment on above: Order Comment: Speci men Type: BLOOD SPECIMEN [facility]ing Facility: [facility] Address: [address] [place] [address] Performed By: #### 2 4323-8, 3083-1 #### [facility] CLIA [id number] [address] [place] [address] [place] Neutrophils/100 WBC (Bld) 75.1 % Normal [facility] Comment on above: Order Comment: Speci men Type: BLOOD SPECIMEN [facility]ing Facility: [facility] Address: [address] [place] [address] Performed By: #### 2 4323-8, 3083-1 #### [facility] CLIA [id number] [address] [place] [address] [place] Nucleated RBC (Bld) [#/Vol] 10*3/uL Normal <0.01 [facility] Comment on above: Order Comment: Speci men Type: BLOOD SPECIMEN [facility]ing Facility: [facility] Address: [address] [place] [address] Performed By: #### 2 4323-8, 3084-1 #### [facility] CLIA [id number] [address] [place] [address] [place] Nucleated RBC/100 WBC (Bld) [Ratio] 0.0 /100 WBC Normal [facility] Comment on above: Order Comment: Speci men Type: BLOOD SPECIMEN [facility]ing Facility: [facility] Address: [address] [place] [address] Performed By: #### 2 4323-8, 3083- #### [facility] CLIA [id number] [address] [place] [address] [place] Platelet mean volume (Bld) [Entitic vol] 11.1 fL Normal 9.0-12.7 [facility] Comment on above: Order Comment: Speci men Type: BLOOD SPECIMEN [facility]ing Facility: [facility] Address: [address] [place] [address] Performed By: #### 2 4323-8, 3083- #### [facility] CLIA [id number] [address] [place] [address] [place] Platelets (Bld) [#/Vol] 223 10*3/uL Normal 150-400 [facility] Comment on above: Order Comment: Speci men Type: BLOOD SPECIMEN [facility]ing Facility: [facility] Address: [address] [place] [address] Performed By: #### 2 4323-8, 3083- #### [facility] CLIA [id number] [address] [place] [address] [place] RBC (Bld) [#/Vol] 3.60 10*6/uL Low 3.90-5.20 [facility] Comment on above: Order Comment: Speci men Type: BLOOD SPECIMEN [facility] Facility: [facility] Address: [address] [place] [address] Performed By: #### 2 4323-8, 3083-1 #### [facility] CLIA [id number] [address] [place] [address] [place] WBC (Bld) [#/Vol] 12.18 10*3/uL High 3.70-11.00 [facility] Comment on above: Order Comment: Anat ahmadi Type: BLOOD SPECIMEN Ordering Facility: [facility] Address: [address], [place] [address] Performed By: #### 2 4323-8, 3084-1 #### [facility] CLIA [id number] [address] [place] [address] [place] Examination level ultrasound on 11-26-2024 [facility] Radiology Study observation (narrative) [facility] Bacteria Ur Culton Bacteria identified Cx Nom [...] , Intermediate >32 , Resistant >64 Abnormal [facility] Comment on above: Performed By: #### 6 30-4 ####[facility] LABCLIA [id number] [address] [facility] Demario 10-29-2024 DIMITRIOS Telephone (OBGYWM) HILLARY FRAIRE ([id number]) 1990 F Date Time Provider Department 10/29/24 KELLY BALTAZAR During your visit today, we recorded the following information about you: Karina Severino RN 10/29/2024 10:35 AM Signed Breast pump order received from [address] [place] [address] Way. To SW to sign. HAL Young [...] Status:Closed by STACI HO on 10/29/24 Normal [facility] Bacteria Ur Culton Bacteria identified Cx Nom [...] , Intermediate >32 , Resistant >64 Abnormal [facility] Comment on above: Performed By: #### 6 30-4 ####[facility] LABCLIA [id number] [facility] [place] [address] [place] CBC W Auto Differential pane l (Bld)on 10-25-2024 Basophils (Bld) [#/Vol] 10*3/uL Normal <0.11 [facility] Comment on above: Order Comment: Speci men Type: BLOOD SPECIMEN [facility]ing Facility: [facility] Address: [address] [place] [address] Performed By: #### 2 4323-8, 3083- #### [facility] CLIA [id number] [address] [place] [address] [place] Basophils/100 WBC (Bld) 0.2 % Normal [facility] Comment on above: Order Comment: Speci men Type: BLOOD SPECIMEN [facility]ing Facility: [facility] Address: [address] [place] [address] Performed By: #### 2 4323-8, 3083- #### [facility] CLIA [id number] [address] [place] [address] [place] Differential cell count method Nom (Bld) Auto Normal [facility] Comment on above: Order Comment: Speci men Type: BLOOD SPECIMEN [facility]ing Facility: [facility] Address: [address] [place] [address] Performed By: #### 2 4323-8, 3083- #### [facility] CLIA [id number] [address] [place] [address] [place] Eosinophils (Bld) [#/Vol] 0.05 10*3/uL Normal <0.46 [facility] Comment on above: Order Comment: Speci men Type: BLOOD SPECIMEN Ordering Facility: [facility] Address: [address] [place] [address] Performed By: #### 2 4323-8, 3083- #### [facility] CLIA [id number] [address] [place] [address] [place] Eosinophils/100 WBC (Bld) 0.4 % Normal [facility] Comment on above: Order Comment: Speci men Type: BLOOD SPECIMEN [facility]ing Facility: [facility] Address: [address] [place] [address] Performed By: #### 2 4323-8, 3083-04 #### [facility] CLIA [id number] [address] [place] [address] [place] Erythrocyte distribution width (RBC) [Ratio] 12.7 % Normal 11.5-15.0 [facility] Comment on above: Order Comment: Speci men Type: BLOOD SPECIMEN [facility]ing Facility: [facility] Address: [address] [place] [address] Performed By: #### 2 4323-8, 3083-04 #### [facility] CLIA [id number] [address] [place] [address] [place] Hematocrit (Bld) [Volume fraction] 32.0 % Low 36.0-46.0 [facility] Comment on above: Order Comment: Speci men Type: BLOOD SPECIMEN Ordering Facility: [facility] Address: [address] [place] [address] Performed By: #### 2 4323-8, 3083-04 #### [facility] CLIA [id number] [address] [place] [address] [place] Hemoglobin (Bld) [Mass/Vol] 10.8 g/dL Low 11.5-15.5 [facility] Comment on above: Order Comment: Speci men Type: BLOOD SPECIMEN [facility]ing Facility: [facility] Address: [address] [place] [address] Performed By: #### 2 4323-8, 3083- #### [facility] CLIA [id number] [address] [place] [address] [place] Immature granulocytes (Bld) [#/Vol] 0.06 10*3/uL Normal <0.10 [facility] Comment on above: Order Comment: Speci men Type: BLOOD SPECIMEN [facility]ing Facility: [facility] Address: [address] [place] [address] Performed By: #### 2 4323-8, 3083- #### [facility] CLIA [id number] [address] [place] [address] [place] Immature granulocytes/100 WBC (Bld) 0.5 % Normal [facility] Comment on above: Order Comment: Speci men Type: BLOOD SPECIMEN [facility]ing Facility: [facility] Address: [address] [place] [address] Performed By: #### 2 4323-8, 3083-04 #### [facility] CLIA [id number] [address] [place] [address] [place] Lymphocytes (Bld) [#/Vol] 2.11 10*3/uL Normal 1.00-4.00 [facility] Comment on above: Order Comment: Speci men Type: BLOOD SPECIMEN [facility]ing Facility: [facility] Address: [address] [place] [address] Performed By: #### 2 4323-8, 3083-04 #### [facility] CLIA [id number] [address] [place] [address] [place] Lymphocytes/100 WBC (Bld) 17.1 % Normal [facility] Comment on above: Order Comment: Speci men Type: BLOOD SPECIMEN [facility]ing Facility: [facility] Address: [address] [place] [address] Performed By: #### 2 4323-8, 3083- #### [facility] CLIA [id number] [address] [place] [address] [place] MCH (RBC) [Entitic mass] 30.3 pg Normal 26.0-34.0 [facility] Comment on above: Order Comment: Speci men Type: BLOOD SPECIMEN [facility] Facility: [facility] Address: [address] [place] [address] Performed By: #### 2 4323-8, 3083-04 #### [facility] CLIA [id number] [address] [place] [address] [place] MCHC (RBC) [Mass/Vol] 33.8 g/dL Normal 30.5-36.0 [facility] Comment on above: Order Comment: Speci men Type: BLOOD SPECIMEN [facility] Facility[facility] Address: [address] [place] [address] Performed By: #### 2 4323-8, 3083-04 #### [facility] CLIA [id number] [address] [place] [address] [place] MCV (RBC) [Entitic vol] 89.9 fL Normal 80.0-100.0 C [facility] Comment on above: Order Comment: Speci men Type: BLOOD SPECIMEN [facility] Facility: [facility] Address: [address] [place] [address] Performed By: #### 2 4323-8, 3083-04 #### [facility] CLIA [id number] [address] [place] [address] [place] Monocytes (Bld) [#/Vol] 0.59 10*3/uL Normal <0.87 [facility] Comment on above: Order Comment: Speci men Type: BLOOD SPECIMEN [facility]ing Facility: [facility] Address: [address] [place] [address] Performed By: #### 2 4323-8, 3083-04 #### [facility] CLIA [id number] [address] [place] [address] [place] Monocytes/100 WBC (Bld) 4.8 % Normal C [facility] Comment on above: Order Comment: Speci men Type: BLOOD SPECIMEN [facility]ing Facility: [facility] Address: [address] [place] [address] Performed By: #### 2 4323-8, 3083-04 #### [facility] CLIA [id number] [address] [place] [address] [place] Neutrophils (Bld) [#/Vol] 9.50 10*3/uL High 1.45-7.50 [facility] Comment on above: Order Comment: Speci men Type: BLOOD SPECIMEN [facility]ing Facility: [facility] Address: [address] [place] [address] Performed By: #### 2 4323-8, 3083-04 #### [facility] CLIA [id number] [address] [place] [address] [place] Neutrophils/100 WBC (Bld) 77.0 % Normal [facility] Comment on above: Order Comment: Speci men Type: BLOOD SPECIMEN [facility] Facility: [facility] Address: [address] [place] [address] Performed By: #### 2 4323-8, 3083-04 #### [facility] CLIA [id number] [address] [place] [address] [place] Nucleated RBC (Bld) [#/Vol] 10*3/uL Normal <0.01 [facility] Comment on above: Order Comment: Speci men Type: BLOOD SPECIMEN [facility] Facility: [facility] Address: [address] [place] [address] Performed By: #### 2 4323-8, 3083-04 #### [facility] CLIA [id number] [address] [place] [address] [place] Nucleated RBC/100 WBC (Bld) [Ratio] 0.0 /100 WBC Normal [facility] Comment on above: Order Comment: Speci men Type: BLOOD SPECIMEN [facility] Facility: [facility] Address: [address] [place] [address] Performed By: #### 2 4323-8, 3083- #### [facility] CLIA [id number] [address] [place] [address] [place] Platelet mean volume (Bld) [Entitic vol] 11.5 fL Normal 9.0-12.7 [facility] Comment on above: Order Comment: Speci men Type: BLOOD SPECIMEN [facility] Facility: [facility] Address: [address] [place], [place] [address] Performed By: #### 2 4323-8, 3083- #### [facility] CLIA [id number] [address] [place] [address] [place] Platelets (Bld) [#/Vol] 223 10*3/uL Normal 150-400 [facility] Comment on above: Order Comment: Speci men Type: BLOOD SPECIMEN [facility] Facility[facility] Address: [address] [place], [place] [address] Performed By: #### 2 4323-8, 3083- #### [facility] CLIA [id number] [address] [place] [address] [place] RBC (Bld) [#/Vol] 3.56 10*6/uL Low 3.90-5.20 [facility] Comment on above: Order Comment: Speci men Type: BLOOD SPECIMEN [facility] Facility: [facility] Address: [address] [place] [address] Performed By: #### 2 4323-8, 3083-04 #### [facility] CLIA [id number] [address] [place] [address] [place] WBC (Bld) [#/Vol] 12.33 10*3/uL High 3.70-11.00 [facility] Comment on above: Order Comment: Speci men Type: BLOOD SPECIMEN [facility] Facility[facility] Address: [address] [place], [place] [address] Performed By: #### 2 4323-8, 3084-1 #### [facility] CLIA [id number] [address] [place] [address] [place] Examination level ultrasound on 10-25-2024 [facility] Radiology Study observation (narrative) [facility] Ferritin SerPl-mCncon 2024 Ferritin [Mass/Vol] 31.2 ng/mL Normal 14.7-205.1 [facility] Comment on above: Order Comment: Speci men Type: BLOOD SPECIMENOrdering Facility: [facility] Address: [address] [place] [address] Performed By: #### 5 0190-8, 2276-4 ####[facility] LABCLIA [id number] [address] [place] GESTATIONAL GLUCOSE SCREEN, 1-HOUR, 50 GRAM, NON-FASTINGon 10-25-2024 Glucose [Mass/Vol] 120 mg/dL Normal 74-134 [facility] Comment on above: Order Comment: Speci men Type: BLOOD SPECIMENOrdering Facility: [facility] Address: [address] [place] [address] Result Comment: [facility] Congress of Obstetricians and Gynecologists (Piotr/Primo) guidelines state a gestational diabetes mellitus positive screen is made, in women not previously diagnosed with overt diabetes, when the 1 hr plasma glucose level is equal to or above 140 mg/dL. The [facility] Human Resource Statistician and [facility] [place] recommends a 135 mg/dL cutoff. Performed By: #### G LTGST ####[facility] MILLTOWNCLIA [id number] [place] [id number] [place] Iron and Iron binding capaci ty panelon 10-25-2024 Iron [Mass/Vol] 41 ug/dL Normal 41-186 [facility] Comment on above: Order Comment: Speci men Type: BLOOD SPECIMENOrdering Facility: [facility] Address: [address] [place] [address] Performed By: #### 5 0190-8, 6-4 ####[facility] LABIA [id number] [place] [address] [place] Iron binding capacity [Mass/Vol] 453 ug/dL High 232-386 [facility] Comment on above: Order Comment: Speci men Type: BLOOD SPECIMENOrdering Facility: [facility] Address: [address] [place] [address] Performed By: #### 5 0190-8, 2275-4 ####[facility] LABIA [id number] [place] [id number] [place] Iron/TIBC [Molar ratio] 9.1 % Low 15.0-57.0 C [facility] Comment on above: Order Comment: Speci men Type: BLOOD SPECIMENOrdering Facility: [facility] Address: [address] [place] [address] Performed By: #### 5 0190-8, 2275-4 ####[facility] LABIA [id number] [place] [address] [place] Reagin and Treponema pallidu m IgG and IgM [Interp]on 10-25-2024 T. pallidum IgG+IgM IA Ql (S) Non-Reactive Normal Nonreactive [facility] Comment on above: Order Comment: Speci men Type: BLOOD SPECIMEN [facility] Address: [address] [place] [address] Performed By: #### 2 4323-8, 3084-1 #### [facility] CLIA [id number] [address] [place] [address] [place] Reagin+T pallidum IgG+IgM Se [facility]-Impon 10-25-2024 Reagin and Treponema pallidum IgG and IgM [Interp] Cannot exclude recent Treponemal infection if specimen collected within 7-10 days after appearance of suspect lesions or 2-3 weeks after an exposure. Clinical correlation is required. Normal [facility] Comment on above: Order Comment: Speci men Type: BLOOD SPECIMEN [facility] Address: [address] [place] [address] Performed By: #### 2 4323-8, 3084-1 #### [facility] CLIA [id number] [address] [place] [address] [place] Bacteria Ur [...] , Intermediate >32 , Resistant >64 Abnormal [facility] Comment on above: Performed By: #### 6 30-4 ####[facility] LABCLIA [id number] [address] OF [facility] Examination level ultrasound on 09-05-2024 Indication [...] 14 oz EFW by: Hadlock (HC-AC-FL) Extended Pony Rougher 5.3 mm CM 3.5 mm 6% Nicolaides [...] normal LVOT view: normal 3-vessel view: normal 1-ivwtjc-ekqyuvs view: normal Heart / Thorax Situs: situs [...] Read By: Jessica Banerjee M.D. MATERNAL MEDICINE [facility] Bacteria Ur Culton 5 Bacteria [...] , Intermediate >32 , Resistant >64 Abnormal [facility] Comment on above: Performed By: #### 6 4 ####[facility] LABCLIA [id number] [address] OF [facility] Examination level ultrasound on 09-03-2024 Radiology Study observation (narrative) [facility] UA DIP, URINE (POC)on 2024 BILIRUBIN UA (POCT) Negative Negative [facility] CLARITY UA (POCT) Cloudy [facility] COLOR UA (POCT) Dark yellow [facility] GLUCOSE UA (POCT) Negative Negative mg/dL [facility] Hemoglobin Ql (U) Negative Negative [facility] Interpretation and review of laboratory results Abnormal [facility] KETONE UA (POCT) Negative Negative mg/dL [facility] LEUKOCYTES UA (POCT) Trace Abnormal Negative [facility] NITRITE UA (POCT) Positive Abnormal Negative [facility] PH UA (POCT) 7.5 4.5 - 8.0 [facility] Protein Ql (U) Negative Negative mg/dL [facility] SPECIFIC GRAVITY UA (POCT) 1.015 1.005 - 1.030 [facility] UROBILINOGEN UA (POCT) 2 Abnormal Normal E.U./d L [facility] Location:[facility], [address], [place], [address] [facility] POINT OF CARE [facility] Bacteria Ur Culton 5 Bacteria [...] , Intermediate >32 , Resistant >64 Abnormal [facility] Comment on above: Performed By: #### 6 30-4 ####[facility] LABCLIA [id number] [address] Demario 07-08-2024 CNPN Telephone (OBGYWM) HILLARY FRAIRE ([id number]) 1990 F Date Time Provider Department 07/08/24 [...] by KELLY BALTAZAR on 07/08/24 [facility] Bacteria Ur Culton Bacteria identified Cx [...] , Intermediate >32 , Resistant >64 Abnormal [facility] Comment on above: Performed By: #### 6 30-4 ####[facility] LABCLIA [id number] [address] STATES OF [facility] Examination level ultrasound on 07-05-2024 Indication First trimester anatomic survey Maternal obesity, BMI >35 Impression REMOTE READ The patient is referred for a first trimester anatomy scan including nuchal translucency measurement as clinically indicated. - Single, live, intrauterine . - [place] rump length measurement is consistent with the [...] view: normal 4-chamber view with color: normal 8-vvrgao-byeasll view: normal Abdominal cord insertion: normal Stomach: [...] Read By: Marbella Mcgee M.D. MATERNAL MEDICINE [facility] Radiology Study observation (narrative) Stanislaw geiger [facility] Hepatic function 2000 panelO rdered By: Ashley Lemus on 07-05-2024 Albumin [Mass/Vol] 4.1 g/dL 3.9 - 4.9 g/dL [facility] ALP [Catalytic activity/Vol] 71 U/L 34 - 123 U/L [facility] ALT [Catalytic activity/Vol] 11 U/L 7 - 38 U/L [facility] AST [Catalytic activity/Vol] 8 U/L Low 13 - 35 U/L [facility] Bilirubin [Mass/Vol] 0.4 mg/dL 0.2 - 1 .3 mg/dL [facility] Bilirubin.conjugated [Mass/Vol] 0.1 mg/dL NINF - 0.3 mg/dL [facility] Interpretation and review of laboratory results Abnormal [facility] Protein [Mass/Vol] 7.3 g/dL 6.3 - 8.0 g/dL [facility] Hepatic function 2000 panelo n 07-05-2024 Albumin [Mass/Vol] 4.1 g/dL Normal 3.9-4.9 [facility] Comment on above: Order Comment: Speci men Type: BLOOD SPECIMEN [facility] Facility[facility] Address: [address] [place] [address] Performed By: #### 2 4323-8, 3083-04 #### [facility] CLIA [id number] [address] [place] [address] [place] [facility] ALP [Catalytic activity/Vol] 71 U/L Normal 34-123 [facility] Comment on above: Order Comment: Speci men Type: BLOOD SPECIMEN [facility] Address: [address] [place] [address] Performed By: #### 2 4323-8, 3083-04 #### [facility] CLIA [id number] [address] [place] [address] [place] ALT [Catalytic activity/Vol] 11 U/L Normal 7-38 [facility] Comment on above: Order Comment: Speci men Type: BLOOD SPECIMEN [facility] Facility[facility] Address: [address] [place] [address] Performed By: #### 2 4323-8, 3083- #### [facility] CLIA [id number] [address] [place] [address] [place] AST [Catalytic activity/Vol] 8 U/L Low 13-35 [facility] Comment on above: Order Comment: Speci men Type: BLOOD SPECIMEN [facility] Facility[facility] Address: [address] [place] [address] Performed By: #### 2 4323-8, 3084-1 #### [facility] CLIA [id number] [address] [place] [address] [place] Bilirubin [Mass/Vol] 0.4 mg/dL Normal 0.2-1.3 [facility] Comment on above: Order Comment: Speci men Type: BLOOD SPECIMEN [facility] Facility[facility] Address: [address] [place] [address] Performed By: #### 2 4323-8, 3083-1 #### [facility] CLIA [id number] [address] [place] [address] [place] Bilirubin.conjugated [Mass/Vol] 0.1 mg/dL Normal <0.3 [facility] Comment on above: Order Comment: Speci men Type: BLOOD SPECIMEN [facility] Facility[facility] Address: [address] [place] [address] Performed By: #### 2 4323-8, 3083-1 #### [facility] CLIA [id number] [address] [place] [address] [place] Protein [Mass/Vol] 7.3 g/dL Normal 6.3-8.0 [facility] Comment on above: Order Comment: Speci men Type: BLOOD SPECIMEN [facility] Facility[facility] Address: [address] [place] [address] Performed By: #### 2 4323-8, 3084-1 #### [facility] CLIA [id number] [address] [place] [address] [place] [id number] PLUSon 07-05-2024 Cell-free DNA./Cell-free DNA.total Dosage of chromosome-specific cfDNA (cfDNA) [Molar fraction] 15% Normal [facility] Comment on above: Order Comment: Speci men Type: BLOOD SPECIMENOrdering Facility: [facility] Address: [address] [place] [address] Performed By: #### M AT21 ####[facility] LABCLIA [id number] [place] [address] Chr 13+18+21+X+Y aneuploidy Dosage of chromosome-specific cfDNA Ql (cfDNA) Negative Normal [facility] Comment on above: Order Comment: Speci men Type: BLOOD SPECIMENOrdering Facility: [facility] Address: [address] [place] [address] Performed By: #### M AT21 ####[facility] LABCLIA [id number] [place] [address] Chr 21 trisomy Dosage of chromosome-specific cfDNA Ql (cfDNA) Negative Normal [facility] Comment on above: Order Comment: Speci men Type: BLOOD SPECIMENOrdering Facility: [facility] Address: [address] [place] [address] Performed By: #### M AT21 ####[facility] LABCLIA [id number] [place] [address] Chr X and Y aneuploidy risk Sequencing Ql (cfDNA) [Interp] Not detected Normal [facility] Comment on above: Order Comment: Speci men Type: BLOOD SPECIMENOrdering Facility: [facility] Address: [address] [place] [address] Result Comment: Not Detected Not Detected Performed By: #### M AT21 ####[facility] LABCLIA [id number] [place] [address] Citation Pranav (Reference lab test) Comment Normal [facility] Comment on above: Order Comment: Speci men Type: BLOOD SPECIMENOrdering Facility: [facility] Address: [address] [place] [address] Result Comment: 1. Jolly ESCALONA, et al. [place] Med. 2012;14(3):296-305. 2. Benedicto BURNETT et al. Prenat Diag. 2013;33(6):591-597. 3. Mitchell C, et al. Clin Chem. 2015 Apr;61(4):608-616. 4. Keenan ESCALONA et al. [place] Med. 2011;13(11):913-920. 5. ACOG/SMFM Practice Bulletin No. 226, Jan 2020. Performed By: #### M AT21 ####[facility] LABCLIA [id number] [place] [address] Gestational age Estimated from conception date Mariano Normal [facility] Comment on above: Order Comment: Katlini men Type: BLOOD SPECIMENOrdering Facility: [facility] Address: [address] [place] [address] Performed By: #### M AT21 ####[facility] LABCLIA [id number] [place] [address] GESTATIONALAGE AGE > OR = 9W Yes Normal [facility] Comment on above: Order Comment: Speci men Type: BLOOD SPECIMENOrdering Facility: [facility] Address: [address] [place] [address] Performed By: #### M AT21 ####[facility] LABCLIA [id number] [place] [address] Laboratory comment Pranav (Report) Comment Normal [facility] Comment on above: Order Comment: Anat ahmadi Type: BLOOD SPECIMENOrdering Facility: [facility] Address: [address] [place] [address] Result Comment: The MaterniT(R) 21 PLUS laboratory-developed [...] Performed By: #### M AT21 ####[facility] LABCLIA [id number] [place] [address] debate director name Nom (Provider) Comment Normal [facility] Comment on above: Order Comment: Speci men Type: BLOOD SPECIMENOrdering Facility: [facility] Address: [address] [place] [address] Result Comment: This specimen showed an expected representation of chromosome 21, 18 and 13 material. Clinical correlation is suggested. Comment Sav Atwood MD, PhD, Director, [employer] Performed By: #### M AT21 ####[facility] LABCLIA [id number] [place] [address] LIMITATIONS OF THE TEST Comment [facility] Comment on above: Order Comment: Speci men Type: BLOOD SPECIMENOrdering Facility: [facility] Address: [address] [place] [address] Result Comment: Lesly arreguin the results of [...] and Fragmin(R)). Performed By: #### M AT21 ####[employer] [id number] [place] [address] Monosomy X risk Dosage of chromosome-specific cfDNA Ql (Plasma cell-free+WBC DNA) [Interp] Not detected Normal [facility] Comment on above: Order Comment: Anat ahmadi Type: BLOOD SPECIMENOrdering Facility: [facility] Address: [address] [place] [address] Performed By: #### M AT21 ####[employer]udgeons & TempleIA [id number] [place] [address] NEGATIVE PREDICTIVE VALUE Note Normal [facility] Comment on above: Order Comment: Anat ahmadi Type: BLOOD SPECIMENOrdering Facility: [facility] Address: [address] [place] [address] Result Comment: The Negative Predictive Value (NPV) for trisomy 21, 18, and 13 is greater than 99%. The NPV for SCA and ESS cannot be calculated as SCA and ESS are only reported when an abnormality is detected. Performed By: #### M AT21 ####[employer]Go DishIA [id number] [place] [address] PERFORMANCE CHARACTERISTICS Note Normal [facility] Comment on above: Order Comment: Anat ahmadi Type: BLOOD SPECIMENOrdering Facility: [facility] Address: [address] [place] [address] Result Comment: ! Sex ! Accuracy: 99.4% [...] ! ! ! * As reported in [facility] database nstd37 [https://www.ncbi.nlm.nih.gov/dbvar/studies/nstd37/ ] # Estimated Sensitivity. [...] gestation only. Performed By: #### M AT21 ####[employer] LABCLIA [id number] [place] [address] POSITIVE PREDICTIVE VALUE N/A Normal [facility] Comment on above: Order Comment: Speci men Type: BLOOD SPECIMENOrdering Facility: [facility] Address: [address] [place] [address] Performed By: #### M AT21 ####[facility] [facility] LABCLIA [id number] [place] [address] Reference Lab Test Method Comment Normal [facility] Comment on above: Order Comment: Speci galdino Type: BLOOD SPECIMENOrdering Facility: [facility] Address: [address] [place] [address] Result Comment: See Notes Circulating cell-free DNA [...] and 22. Performed By: #### M AT21 ####[facility] LABCLIA [id number] [place] [address] Service comment (Unsp spec) [Interp] Comment Normal [facility] Comment on above: Order Comment: Speci men Type: BLOOD SPECIMENOrdering Facility: [facility] Address: [facility] [place] [address] Result Comment: See Notes [employer] is a subsidiary of [employer], using the brand [facility]. This test was developed and its performance characteristics determined by [facility]. It has not been cleared or approved by the Food and Drug Administration. This laboratory is certified under the Clinical Laboratory Improvement Amendments (CLIA) as qualified to perform high complexity clinical laboratory testing and accredited by the [employer] (CAP). If there is future clinical need for adding MaterniT GENOME testing, this specimen will be available until term. [facility] samples will not be retained beyond 60 days. [facility] patients will have to send a new sample for re-sequencing ([facility] Test Code: [id number]). Performed By: #### M AT21 ####[employer] LABCLIA [id number] [place] [address] Sex Dosage of chromosome-specific cfDNA Nom (cfDNA) Comment Normal [facility] Comment on above: Order Comment: Speci men Type: BLOOD SPECIMENOrdering Facility: [facility] Address: [address] [place] [address] Result Comment: Cons istent with Female Performed By: #### M AT21 ####[employer] [facility]Go DishIA [id number] [place] [address] Test performance information Pranav (Unsp spec) Comment Normal [facility] Comment on above: Order Comment: Speci men Type: BLOOD SPECIMENOrdering Facility: [facility] Address: [address] [place] [address] Result Comment: The performance characteristics of the MaterniT(R) 21 PLUS laboratory-developed test (LDT) have been determined in a clinical validation study with women at increased risk for chromosomal aneuploidy.[1-4] Performed By: #### M AT21 ####[employer] LABCLIA [id number] [place] [address] Trisomy 13 risk Dosage of chromosome-specific cfDNA Ql (cfDNA) [Interp] Negative Normal [facility] Comment on above: Order Comment: Speci men Type: BLOOD SPECIMENOrdering Facility: [facility] Address: [address] [place] [address] Performed By: #### M AT21 ####[employer] [facility]Go DishIA [id number] [place] [address] Trisomy 18 risk Dosage of chromosome-specific cfDNA Ql (Plasma cell-free+WBC DNA) [Interp] Negative Normal [facility] Comment on above: Order Comment: Speci men Type: BLOOD SPECIMENOrdering Facility: [facility] Address: [address] [place] [address] Performed By: #### M AT21 ####[employer] LABCLIA [id number] [place] [address] Bacteria Culton 5 Bacteria identified Cx Nom [...] , Intermediate >32 , Resistant >64 Abnormal [facility] Comment on above: Performed By: #### 6 30-4 ####[facility] LABCLIA [id number] [address] [place] C. trachomatis+N. gonorrhoea e DNA KEVIN+probe Ql (Unsp spec)on 06-07-2024 C. trachomatis rRNA KEVIN+probe Ql (Unsp spec) Not detected Normal Not detected [facility] Comment on above: Order Comment: Speci men Type: BLOOD SPECIMEN [facility] Address: [address] [place] [address] Performed By: #### 2 4323-8, 1 #### [facility] CLIA [id number] [address] [place] [address] [place] N. gonorrhoeae rRNA KEVIN+probe Ql (Unsp spec) Not detected Normal Not detected [facility] Comment on above: Order Comment: Speci men Type: BLOOD SPECIMEN [facility] Address: [address] [place] [address] Performed By: #### 2 4323-8, 3083-1 #### [facility] CLIA [id number] [address] [place] [address] [place] CBC W Auto Differential pane l (Bld)on 06-07-2024 Basophils (Bld) [#/Vol] 10*3/uL Normal <0.11 C [facility] Comment on above: Order Comment: Speci men Type: BLOOD SPECIMEN [facility] Address: [address] [place] [address] Performed By: #### 2 4323-8, 3083-1 #### [facility] CLIA [id number] [address] [place] [address] [place] Basophils/100 WBC (Bld) 0.2 % Normal C [facility] Comment on above: Order Comment: Speci men Type: BLOOD SPECIMEN [facility] Address: [address] [place] [address] Performed By: #### 2 4323-8, 3083- #### [facility] CLIA [id number] [address] [place] [address] [place] Differential cell count method Nom (Bld) Auto Normal [facility] Comment on above: Order Comment: Speci men Type: BLOOD SPECIMEN [facility] Address: [address] [place] [address] Performed By: #### 2 4323-8, 3083- #### [facility] CLIA [id number] [address] [place] [address] [place] Eosinophils (Bld) [#/Vol] 0.08 10*3/uL Normal <0.46 [facility] Comment on above: Order Comment: Speci men Type: BLOOD SPECIMEN [facility] Address: [address] [place] [address] Performed By: #### 2 4323-8, 3083-1 #### [facility] CLIA [id number] [address] [place] [address] [place] Eosinophils/100 WBC (Bld) 0.8 % Normal [facility] Comment on above: Order Comment: Speci men Type: BLOOD SPECIMEN [facility] Address: [address] [place] [address] Performed By: #### 2 4323-8, 3083-04 #### [facility] CLIA [id number] [address] [place] [address] [place] Erythrocyte distribution width (RBC) [Ratio] 12.6 % Normal 11.5-15.0 [facility] Comment on above: Order Comment: Speci men Type: BLOOD SPECIMEN [facility] Address: [address] [place] [address] Performed By: #### 2 4323-8, 3083-04 #### [facility] CLIA [id number] [address] [place] [address] [place] Hematocrit (Bld) [Volume fraction] 36.1 % Normal 36.0-46.0 [facility] Comment on above: Order Comment: Speci men Type: BLOOD SPECIMEN [facility] Address: [address] [place] [address] Performed By: #### 2 4323-8, 3083-04 #### [facility] CLIA [id number] [address] [place] [address] [place] Hemoglobin (Bld) [Mass/Vol] 12.0 g/dL Normal 11.5-15.5 [facility] Comment on above: Order Comment: Speci men Type: BLOOD SPECIMEN [facility] Address: [address] [place] [address] Performed By: #### 2 4323-8, 3083-04 #### [facility] CLIA [id number] [address] [place] [address] [place] Immature granulocytes (Bld) [#/Vol] 0.04 10*3/uL Normal <0.10 [facility] Comment on above: Order Comment: Speci men Type: BLOOD SPECIMEN [facility] Facility[facility] Address: [address] [place] [address] Performed By: #### 2 4323-8, 3083- #### [facility] CLIA [id number] [address] [place] [address] [place] Immature granulocytes/100 WBC (Bld) 0.4 % Normal [facility] Comment on above: Order Comment: Speci men Type: BLOOD SPECIMEN [facility] Facility[facility] Address: [address] [place] [address] Performed By: #### 2 4323-8, 3083-04 #### [facility] CLIA [id number] [address] [place] [address] [place] Lymphocytes (Bld) [#/Vol] 2.76 10*3/uL Normal 1.00-4.00 [facility] Comment on above: Order Comment: Speci men Type: BLOOD SPECIMEN [facility] Address: [address] [place] [address] Performed By: #### 2 4323-8, 3083-04 #### [facility] CLIA [id number] [address] [place] [address] [place] Lymphocytes/100 WBC (Bld) 26.6 % Normal [facility] Comment on above: Order Comment: Speci men Type: BLOOD SPECIMEN [facility] Address: [address] [place] [address] Performed By: #### 2 4323-8, 3083-04 #### [facility] CLIA [id number] [address] [place] [address] [place] MCH (RBC) [Entitic mass] 29.3 pg Normal 26.0-34.0 [facility] Comment on above: Order Comment: Speci men Type: BLOOD SPECIMEN [facility] Address: [address] [place] [address] Performed By: #### 2 4323-8, 3083-04 #### [facility] CLIA [id number] [address] [place] [address] [place] MCHC (RBC) [Mass/Vol] 33.2 g/dL Normal 30.5-36.0 [facility] Comment on above: Order Comment: Speci men Type: BLOOD SPECIMEN [facility] Address: [address] [place] [address] Performed By: #### 2 432-8, 3083-04 #### [facility] CLIA [id number] [address] [place] [address] [place] MCV (RBC) [Entitic vol] 88.0 fL Normal 80.0-100.0 C [facility] Comment on above: Order Comment: Speci men Type: BLOOD SPECIMEN [facility] Address: [address] [place] [address] Performed By: #### 2 432-8, 3083-04 #### [facility] CLIA [id number] [address] [place] [address] [place] Monocytes (Bld) [#/Vol] 0.55 10*3/uL Normal <0.87 [facility] Comment on above: Order Comment: Speci men Type: BLOOD SPECIMEN [facility] Address: [address] [place] [address] Performed By: #### 2 432-8, 3083-04 #### [facility] CLIA [id number] [address] [place] [address] [place] Monocytes/100 WBC (Bld) 5.3 % Normal C [facility] Comment on above: Order Comment: Speci men Type: BLOOD SPECIMEN [facility] Facility[facility] Address: [address] [place] [address] Performed By: #### 2 4323-8, 3083-04 #### [facility] CLIA [id number] [address] [place] [address] [place] Neutrophils (Bld) [#/Vol] 6.91 10*3/uL Normal 1.45-7.50 [facility] Comment on above: Order Comment: Speci men Type: BLOOD SPECIMEN [facility] Address: [address] [place] [address] Performed By: #### 2 4323-8, 3083-1 #### [facility] CLIA [id number] [address] [place] [address] [place] Neutrophils/100 WBC (Bld) 66.7 % Normal [facility] Comment on above: Order Comment: Speci men Type: BLOOD SPECIMEN [facility] Address: [address] [place] [address] Performed By: #### 2 4323-8, 3083-1 #### [facility] CLIA [id number] [address] [place] [address] [place] Nucleated RBC (Bld) [#/Vol] 10*3/uL Normal <0.01 [facility] Comment on above: Order Comment: Speci men Type: BLOOD SPECIMEN [facility] Address: [address] [place] [address] Performed By: #### 2 4323-8, 1 #### [facility] [facility] CLIA [id number] [address] [place] [address] [place] Nucleated RBC/100 WBC (Bld) [Ratio] 0.0 /100 WBC Normal [facility] Comment on above: Order Comment: Speci men Type: BLOOD SPECIMEN [facility] Facility[facility] Address: [address] [place] [address] Performed By: #### 2 4323-8, 308-1 #### [facility] CLIA [id number] [address] [place] [address] [place] Platelet mean volume (Bld) [Entitic vol] 11.3 fL Normal 9.0-12.7 [facility] Comment on above: Order Comment: Speci men Type: BLOOD SPECIMEN [facility] Facility[facility] Address: [address] [place] [address] Performed By: #### 2 4323-8, 308-1 #### [facility] CLIA [id number] [address] [place] [address] [place] Platelets (Bld) [#/Vol] 246 10*3/uL Normal 150-400 [facility] Comment on above: Order Comment: Speci men Type: BLOOD SPECIMEN [facility] Facility[facility] Address: [address] [place], [place] [address] Performed By: #### 2 4323-8, 3083-1 #### [facility] CLIA [id number] [address] [place] [address] [place] RBC (Bld) [#/Vol] 4.10 10*6/uL Normal 3.90-5.20 [facility] Comment on above: Order Comment: Speci men Type: BLOOD SPECIMEN [facility] Address: [address] [place] [address] Performed By: #### 2 4323-8, 3083-1 #### [facility] CLIA [id number] [address] [place], [place] [id number] [place] WBC (Bld) [#/Vol] 10.36 10*3/uL Normal 3.70-11.00 [facility] Comment on above: Order Comment: Speci men Type: BLOOD SPECIMEN [facility] Address: [address] [place] [address] Performed By: #### 2 4323-8, 3084-1 #### [facility] CLIA [id number] [address] [place] [address] [place] Comprehensive metabolic 2000 panelon 06-07-2024 Albumin [Mass/Vol] 4.1 g/dL Normal 3.9-4.9 [facility] Comment on above: Order Comment: Speci men Type: BLOOD SPECIMENOrdering Facility: [facility] Address: [address] [place] [address] Performed By: #### 2 4323-8 ####[facility]IA [id number] [place] [address] [place] ALP [Catalytic activity/Vol] 70 U/L Normal 34-123 [facility] Comment on above: Order Comment: Speci men Type: BLOOD SPECIMENOrdering Facility: [facility] Address: [address] [place] [address] Performed By: #### 2 4323-8 ####[facility]ORYCLIA [id number] [place] [address] [place] ALT With P-5'-P [Catalytic activity/Vol] 56 U/L High 7-38 [facility] Comment on above: Order Comment: Speci men Type: BLOOD SPECIMENOrdering Facility: [facility] Address: [address] [place] [address] Performed By: #### 2 4323-8 ####[facility]ORYCLIA [id number] [place] [address] [place] Anion gap [Moles/Vol] 10 mmol/L Normal 8-15 [facility] Comment on above: Order Comment: Speci men Type: BLOOD SPECIMENOrdering Facility: [facility] Address: [address] [place] [address] Performed By: #### 2 4323-8 ####[facility]ORYCLIA [id number] [place] [address] [place] AST With P-5'-P [Catalytic activity/Vol] 30 U/L Normal 13-35 [facility] Comment on above: Order Comment: Speci men Type: BLOOD SPECIMENOrdering Facility: [facility] Address: [address] [place] [address] Performed By: #### 2 4323-8 ####[facility]ORYCLIA [id number] [place] [id number] [place] Bilirubin [Mass/Vol] 0.4 mg/dL Normal 0.2-1.3 [facility] Comment on above: Order Comment: Speci men Type: BLOOD SPECIMENOrdering Facility: [facility] Address: [address] [place] [address] Performed By: #### 2 4323-8 ####[facility]ORYCLIA [id number] [place] [address] [place] Calcium [Mass/Vol] 9.2 mg/dL Normal 8.5-10.2 [facility] Comment on above: Order Comment: Speci men Type: BLOOD SPECIMENOrdering Facility: [facility] Address: [address] [place] [address] Performed By: #### 2 4323-8 ####[facility]ORYCLIA [id number] [place] [address] [place] Chloride [Moles/Vol] 101 mmol/L Normal 98-107 [facility] Comment on above: Order Comment: Speci men Type: BLOOD SPECIMENOrdering Facility: [facility] Address: [address] [place] [address] Performed By: #### 2 4323-8 ####[facility]ORYCLIA [id number] [place] [id number] [place] CO2 [Moles/Vol] 23 mmol/L Normal 22-30 [facility] Comment on above: Order Comment: Speci men Type: BLOOD SPECIMENOrdering Facility: [facility] Address: [address] [place] [address] Performed By: #### 2 4323-8 ####[facility]ORYCLIA [id number] [place] [address] [place] Creatinine [Mass/Vol] 0.79 mg/dL Normal 0.58-0.96 [facility] Comment on above: Order Comment: Speci men Type: BLOOD SPECIMENOrdering Facility: [facility] Address: [address] [place] [address] Performed By: #### 2 4323-8 ####[facility]PITALIA [id number] [place] [id number] [place] [facility] Creatinine and Glomerular filtration rate.predicted panel (S/P/Bld) 101 mL/min/1.73m??? Normal >=60 [facility] Comment on above: Order Comment: Anat ahmadi Type: BLOOD SPECIMENOrdering Facility: [facility] Address: [address] [place] [address] Result Comment: Jelly mated Glomerular Filtration Rate [...] actual GFR. Performed By: #### 2 4323-8 ####[facility]PITALIA [id number] [place] [address] [place] Glucose [Mass/Vol] 114 mg/dL High 74-99 [facility] Comment on above: Order Comment: Anat ahmadi Type: BLOOD SPECIMENOrdering Facility: [facility] Address: [address] [place] [address] Result Comment: The [place] Diabetes Association (ADA) provides guidance for cutoff [...] Standards of Medical Care in Diabetes 2016, Swedish Diabetes Association. Diabetes Care. 2016.39(Suppl 1). Performed By: #### 2 4323-8 ####[facility] LABORATORYIA [id number] [place] [id number] [place] Potassium [Moles/Vol] 3.9 mmol/L Normal 3.7-5.1 [facility] Comment on above: Order Comment: Speci men Type: BLOOD SPECIMENOrdering Facility: [facility] Address: [address] [place] [address] Performed By: #### 2 4323-8 ####[facility] LABORATORYCLIA [id number] [place] [address] [place] Protein [Mass/Vol] 7.2 g/dL Normal 6.3-8.0 [facility] Comment on above: Order Comment: Speci men Type: BLOOD SPECIMENOrdering Facility: [facility] Address: [address] [place] [address] Performed By: #### 2 4323-8 ####[facility] LABORATORYCLIA [id number] [place] [address] [place] Sodium [Moles/Vol] 134 mmol/L Low 136-144 [facility] Comment on above: Order Comment: Speci men Type: BLOOD SPECIMENOrdering Facility: [facility] Address: [address] [place] [address] Performed By: #### 2 4323-8 ####[facility] LABORATORYCLIA [id number] [place] [address] [place] Urea nitrogen [Mass/Vol] 14 mg/dL Normal 7-21 [facility] Comment on above: Order Comment: Speci men Type: BLOOD SPECIMENOrdering Facility: [facility] Address: [address] [place] [address] Performed By: #### 2 4323-8 ####[facility] LABORATORYCLIA [id number] [place] [address] [place] HBV surface Ag Ser Qlon 03-0 HBV surface Ag Ql (S) Negative Normal Negative [facility] Comment on above: Order Comment: Speci men Type: BLOOD SPECIMEN [facility] Address: [address] [place] [address] Performed By: #### 2 4323-8, 3084-1 #### [facility] CLIA [id number] [address] [place] [address] [place] HCV Ab Ser Qlon 06-07-2024 HCV Ab Ql (S) Negative Normal Negative [facility] Comment on above: Order Comment: Speci men Type: BLOOD SPECIMEN [facility] Address: [address] [place] [address] Result Comment: The result suggests no evidence of active infection with Hepatitis C virus. Should recent infection be suspected, repeat testing may be considered 4-6 weeks after this draw. Performed By: #### 2 4323-8, 3084-1 #### [facility] CLIA [id number] [address] [place] [address] [place] HIGH RISK HUMAN PAPILLOMA RICKY (HPV), PCR FOR DETECTION AND GENOTYPINGon 06-07-2024 HPV 16 Ag Ql (Unsp spec) Not detected Normal Not detec terry [facility] Comment on above: Order Comment: Speci men Type: FLUID SPECIMENOrdering Facility: [facility] Address: [address] [place] [address] Performed By: #### H PVHRT ####[facility] [id number] [place] [address] [place] HPV 18 Ag Ql (Unsp spec) Not detected Normal Not detec terry [facility] Comment on above: Order Comment: Speci men Type: FLUID SPECIMENOrdering Facility: [facility] Address: [address] [place] [address] Performed By: #### H PVHRT ####[facility] LABIA [id number] [place] [address] [place] HPV 31+33+35+39+45+51+52+56+ 58+59+66+68 DNA KEVIN+probe Ql (Cvx) Not detected Normal Not detected [facility] Comment on above: Order Comment: Speci men Type: FLUID SPECIMENOrdering Facility: [facility] Address: [address] [place] [address] Result Comment: High Risk HPV Other Type includes HPV types 31, 33, 35, 39, 45, 51, 52, 56, 58, 59, 66 and 68. Performed By: #### H PVHRT ####[facility] LABCLIA [id number] [place] [address] [place] HIV 1+2 Ab IA Qlon 5 HIV 1 and 2 Ab IA.rapid Nom (S/P/Bld) Normal [facility] Comment on above: Order Comment: Speci men Type: BLOOD SPECIMEN [facility] Address: [address] [place] [address] Result Comment: Test not indicated. Performed By: #### 2 4323-8, 3084-1 #### [facility] CLIA [id number] [address] [place] [address] [place] HIV 1+2 Ab+HIV1 p24 Ag IA Ql Non-Reactive Normal Nonreactive [facility] Comment on above: Order Comment: Speci [facility] Type: BLOOD SPECIMEN [facility] Address: [address] [place] [address] Performed By: #### 2 4323-8, 3083-1 #### [facility] CLIA [id number] [address] [place] [address] [place] HIV immunoassay testing algorithm interpretation (S/P/Bld) [Interp] Normal [facility] Comment on above: Order Comment: Speci men Type: BLOOD SPECIMEN [facility] Address: [address] [place] [address] Result Comment: No e vidence of HIV-1 or HIV-2 infection. Should recent infection be suspected, repeat testing may be considered 2-3 weeks after this draw. Person Rev. Code 3701.243(E): This information has been [...] Performed By: #### 2 4323-8, 3084-1 #### [facility] CLIA [id number] [address] [place] [id number] [place] HbA1c (Bld)on 06-07-2024 Average glucose Estimated from glycated hemoglobin (Bld) [Mass/Vol] 97 mg/dL Normal [facility] Comment on above: Order Comment: Speci men Type: BLOOD SPECIMENOrdering Facility: [facility] Address: [address] [place] [address] Result Comment: eAG: (Estimated average glucose) is a calculated value from HgbA1c and is reimbursement representative of the average blood glucose level in the last 2-3 month period. Performed By: #### 5 5454-3 ####[facility] LABCLIA [id number] [address] STATES OF [facility] HbA1c (Bld) [Mass fraction] 5.0 % Normal 4.3-5.6 [facility] Comment on above: Order Comment: Speci men Type: BLOOD SPECIMENOrdering Facility: [facility] Address: [address] [place] [address] Result Comment: Amer ican Diabetes Association guidelines indicate that patients with HgbA1c in the range 5.7-6.4% are at increased risk for development of diabetes, and intervention by lifestyle modification may be beneficial. HgbA1c greater or equal to 6.5% is considered diagnostic of diabetes. Performed By: #### 5 5454-3 ####[facility] LABCLIA [id number] [place] [address] [place] PAP TESTon 06-07-2024 ADEQUACY Normal [facility] Comment on above: Order Comment: Speci men Type: FLUID SPECIMENOrdering Facility: [facility] Address: [address] [place] [address] Result Comment: Sati sfactory for interpretation. Transformation zone present Performed By: #### L [id number] ####[facility] LABCLIA [id number] [place] [address] [place] CASE REPORT Normal [facility] Comment on above: Order Comment: Speci men Type: FLUID SPECIMENOrdering Facility: [facility] Address: [address] [place] [address] Result Comment: Gyne cologic Cytology Report Case: [id number] Authorizing Provider: Leanne Aquino APRN.RESIDENTIAL SALES EXECUTIVE Collected: 06/07/2024 03:39 PM Ordering Location: OB/Gynecology Received: 06/07/2024 04:52 PM First Screen: [place], Martha, CT, ASCP Specimen: Pap Test, ThinPrep, Cervix Performed By: #### L [id number] ####[facility] LABCLIA [id number] [place] [id number] [place] CLINICAL HISTORY, CYTOLOGY, DIAMOND DRILLER HELPER Routine Exam Normal [facility] Comment on above: Order Comment: Speci men Type: FLUID SPECIMENOrdering Facility: [facility] Address: [address] [place] [address] Performed By: #### L [id number] ####[facility] LABCLIA [id number] [place] [address] [place] FINAL PERFORMING LAB Normal [facility] Comment on above: Order Comment: Speci men Type: FLUID SPECIMENOrdering Facility: [facility] Address: [address] [place] [address] Result Comment: Tech nical component, ac/dc rewinder screening performed at [facility], [address] [place], [place] [id number] CLIA# [id number] Diagnostic interpretation performed at [facility], [address] [place], [place] [address] CLIA# [id number] Maple Sugar Maker: Alvarez Vargas M.D. Performed By: #### L [id number] ####[facility] LABCLIA [id number] [place] [id number] [place] INTERPRETATION, CYTOLOGY, DIAMOND DRILLER HELPER Normal [facility] Comment on above: Order Comment: Speci men Type: FLUID SPECIMENOrdering Facility: [facility] Address: [address] [place] [address] Result Comment: Nega tive for intraepithelial lesion or malignancy. at 1429 EDT Performed By: #### L [id number] ####[facility] LABCLIA [id number] [place] [id number] [place] LMP 04/09/2024 Normal [facility] Comment on above: Order Comment: Speci men Type: FLUID SPECIMENOrdering Facility: [facility] Address: [address] [place] [address] Performed By: #### L [id number] ####[facility] LABCLIA [id number] [place] [id number] [place] PAP DISCLAIMER COMMENT The Pap Smear is a screening test for cervical cancer. False negative results occur with all screening tests, emphasizing the need for rescreening at recommended intervals, and clinical correlation. Normal [facility] Comment on above: Order Comment: Speci men Type: FLUID SPECIMENOrdering Facility: [facility] Address: [address] [place] [address] Performed By: #### L [id number] ####[facility] LABCLIA [id number] [place] [id number] [place] PAP HEALTH PSYCHOLOGIST COMMENT This specimen has been analyzed by the ThinPrep Imaging System, an automated imaging and review system, which assists the laboratory in evaluating cells on ThinPrep Pap tests. Following automated imaging, selected doherty from every slide are reviewed by a ac/dc rewinder. Normal [facility] Comment on above: Order Comment: Speci men Type: FLUID SPECIMENOrdering Facility: [facility] Address: [address] [place] [address] Performed By: #### L [id number] ####[facility] LABCLIA [id number] [address] STATES OF [facility] POC CAFETERIA OR LUNCHROOM CHECKER ULTRASOUNDon 06-08-19 Indication Confirmation of intrauterine . [...] Read By: Leanne Aquino CNP MATERNAL MEDICINE [facility] Radiology Study observation (narrative) Stanislaw geiger [facility] Prot/Creat Uron 06-07-2024 Protein/Creatinine (U) [Mass ratio] 0.06 mg/mg Normal <0.15 [facility] Comment on above: Order Comment: Speci men Type: URINE SPECIMENOrdering Facility: [facility] Address: [address] [place] [address] Result Comment: Adul t Proteinuria Categories: <0.15 mg/mg is considered normal to mildly increased 0.15 - 0.50 mg/mg is considered moderately increased >0.50 mg/mg is considered severely increased KDIGO. (2013). KDIGO 2012 Clinical Practice Guideline for the Evaluation and Management of Chronic Kidney Disease. Official Journal of the International Society of Nephrology, 3(1), 1-150. Performed By: #### 2 890-2 ####[facility] LABORATORYIA [id number] [place] [address] [place] Protein/Creatinine (U) [Mass ratio]on 06-07-2024 Creatinine (U) [Mass/Vol] 155.0 mg/dL Normal 42.2-237.9 [facility] Comment on above: Order Comment: Speci men Type: URINE SPECIMENOrdering Facility: [facility] Address: [address] [place] [address] Performed By: #### 2 890-2 ####[facility]ITAL[facility] [id number] [place] [id number] [place] Protein (U) [Mass/Vol] 10 mg/dL Normal 0-[address] [facility] Comment on above: Order Comment: Speci men Type: URINE SPECIMENOrdering Facility: [facility] Address: [address] [place] [address] Performed By: #### 2 890-2 ####[facility]ITALIA [id number] [place] [id number] [place] RUBELLA IGG ANTIBODYon 06-07 RUBELLA IGG AB, QUAL Positive Normal Positive [facility] Comment on above: Order Comment: Speci men Type: BLOOD SPECIMEN [facility] Address: [address] [place] [address] Result Comment: The result suggests recent or past exposure to Rubella virus or history of Rubella vaccination. Positive result may also be seen due to presence of passively-transferred antibodies. Please correlate with patient's history. Performed By: #### 2 4323-8, 3084-1 #### [facility] CLIA [id number] [address] [place] [address] [place] Reagin and Treponema pallidu m IgG and IgM [Interp]on 06-07-2024 T. pallidum IgG+IgM IA Ql (S) Non-Reactive Normal Nonreactive [facility] Comment on above: Order Comment: Speci men Type: BLOOD SPECIMEN [facility] Address: [address] [place] [address] Performed By: #### 2 4323-8, 3084-1 #### [facility] CLIA [id number] [address] [place] [address] [place] Reagin+T pallidum IgG+IgM Se rPl-Impon 06-07-2024 Reagin and Treponema pallidum IgG and IgM [Interp] Cannot exclude recent Treponemal infection if specimen collected within 7-10 days after appearance of suspect lesions or 2-3 weeks after an exposure. Clinical correlation is required. Normal [facility] Comment on above: Order Comment: Speci men Type: BLOOD SPECIMEN [facility] Address: [address] [place] [address] Performed By: #### 2 4323-8, 3084-1 #### [facility] CLIA [id number] [address] [place] [address] [place] TRICHOMONAS VAGINALIS NAATon 06-07-2024 T. vaginalis DNA KEVIN+probe Ql (Unsp spec) Not detected Normal Not detected [facility] Comment on above: Order Comment: Speci men Type: BLOOD SPECIMEN [facility] Address: [address] [place] [address] Performed By: #### 2 4323-8, 3084-1 #### [facility] CLIA [id number] [address] [place] [address] [place] TYPE + SCREEN PRENATALon ABO A Normal [facility] Comment on above: Order Comment: Speci men Type: BLOOD SPECIMENOrdering Facility: [facility] Address: [address] [place] [address] Performed By: #### T SPN ####[facility] BANKCLIA [id number] [place] [address] [place] Rh Nom (Bld) Positive Normal [facility] Comment on above: Order Comment: Speci men Type: BLOOD SPECIMENOrdering Facility: [facility] Address: [address] [place] [address] Performed By: #### T SPN ####[facility] BANKCLIA [id number] [place] [id number] [facility] TYPE AND SCREEN EXPIRATION 06/10/2024 23:59 Normal [facility] Comment on above: Order Comment: Speci men Type: BLOOD SPECIMENOrdering Facility: 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 As applicable, any other physician, advance practice provider, medical student, or other health professional student that will be observing or involved in the sensitive examination for educational or training purposes was discussed with the Patient or Authorized Bobcat Operator. The Patient or Authorized Bobcat Operator has agreed to proceed with the [...] be more appropriately called evening sickness or oefou-kaknck-nq-the- day sickness. While there are the paulino [...] than expected (more content not included)... Normal [facility] UA DIP,URINE HCG (POC)on Beta HCG ( test) Ql (U) Positive Abnormal Negative [facility] Comment on above: Location:[facility], [address], [place], [address] Interpretation and review of laboratory results Abnormal [facility] Furniture Repair Technician (POCT) Internal QC OK [facility] Location:[facility], [address], [place], [address] [facility] POINT OF CARE [facility] CBC W Auto Differential pane l (Bld)on 02-11-2022 Basophils (Bld) [#/Vol] 0.04 10*3/uL <0.11 k/uL [facility] Basophils/100 WBC (Bld) 0.5 % C [facility] Differential cell count method Nom (Bld) Auto [facility] Eosinophils (Bld) [#/Vol] 0.13 10*3/uL <0.46 k/uL [facility] Eosinophils/100 WBC (Bld) 1.5 % [facility] Erythrocyte distribution width (RBC) [Ratio] 12.7 % 11.5 - 15.0 % [facility] Hematocrit (Bld) [Volume fraction] 41.0 % 36.0 - 46.0 % [facility] Hemoglobin (Bld) [Mass/Vol] 13.6 g/dL 11.5 - 15.5 g/dL [facility] Immature granulocytes (Bld) [#/Vol] <0.10 k/uL [facility] Immature granulocytes/100 WBC (Bld) 0.1 % [facility] Lymphocytes (Bld) [#/Vol] 2.58 10*3/uL 1.00 - 4.00 k/uL [facility] Lymphocytes/100 WBC (Bld) 30.6 % [facility] MCH (RBC) [Entitic mass] 29.5 pg 26.0 - 34.0 pg [facility] MCHC (RBC) [Mass/Vol] 33.2 g/dL 30.5 - 36.0 g/dL [facility] MCV (RBC) [Entitic vol] 88.9 fL 80.0 - 100.0 fL [facility] Monocytes (Bld) [#/Vol] 0.61 10*3/uL <0.87 k/uL [facility] Monocytes/100 WBC (Bld) 7.2 % C [facility] Neutrophils (Bld) [#/Vol] 5.06 10*3/uL 1.45 - 7.50 k/uL [facility] Neutrophils/100 WBC (Bld) 60.1 % [facility] Nucleated RBC (Bld) [#/Vol] <0.01 k/uL [facility] Nucleated RBC/100 WBC (Bld) [Ratio] 0.0 /100 WBC [facility] Platelet mean volume (Bld) [Entitic vol] 10.9 fL 9.0 - 12.7 fL [facility] Platelets (Bld) [#/Vol] 285 10*3/uL 150 - 400 k /uL [facility] RBC (Bld) [#/Vol] 4.61 10*6/uL 3.90 - 5.2 0 m/uL [facility] WBC (Bld) [#/Vol] 8.43 10*3/uL 3.70 - 11. 00 k/uL [facility] Vital Signs Date Time Vital Sign Value Performing Clinician Facility 12-21-2024 11:00-0400 Body mass index (BMI) [Ratio] 37.03 kg/m2 Adina Krueger MD Work Phone: [facility] 12-21-2024 11:00-0400 Body weight 123.83 kg Adina Krueger MD Work Phone: [facility] 12-21-2024 11:00-0400 Diastolic blood pressure 82 mm[Hg] Adina Krueger MD Work Phone: [facility] 12-21-2024 11:00-0400 Systolic blood pressure 134 mm[Hg] Adina Krueger MD Work Phone: [facility] 12-17-2024 10:14-0400 Diastolic blood pressure 70 mm[Hg] [facility] 12-17-2024 10:14-0400 Systolic blood pressure 138 mm[Hg] [facility] 12-15-2024 15:37-0400 Body mass index (BMI) [Ratio] 37.38 kg/m2 Nst Wstr Work Phone: [facility] 12-15-2024 15:37-0400 Body weight 125.01 kg Nst Wstr Work Phone: [facility] 12-15-2024 15:37-0400 Diastolic blood pressure 84 mm[Hg] Nst Wstr Work Phone: [facility] Comment on above: MELANY BP average 12-15-2024 15:37-0400 Systolic blood pressure 128 mm[Hg] Nst Wstr Work Phone: [facility] Comment on above: MELANY BP average 12-13-2024 10:21-0400 Diastolic blood pressure 80 mm[Hg] Kelly Baltazar MD Work Phone: [facility] Comment on above: bp melany average 12-13-2024 10:21-0400 Systolic blood pressure 125 mm[Hg] Kelly Baltazar MD Work Phone: [facility] Comment on above: bp melany average 12-13-2024 10:07-0400 Body mass index (BMI) [Ratio] 37.03 kg/m2 Kelly Baltazar MD Work Phone: [facility] 12-13-2024 10:07-0400 Body weight 123.83 kg Kelly Baltazar MD Work Phone: [facility] 12-08-2024 12:07-0400 Body temperature 98 [degF] Dr. Chiki Gonzales MD Work Phone: [facility] 12-08-2024 12:07-0400 Diastolic blood pressure 72 mm[Hg] Dr. Chiki Gonzales MD Work Phone: [facility] 12-08-2024 12:07-0400 Heart rate 93 /min Dr. Chiki Gonzales MD Work Phone: [facility] 12-08-2024 12:07-0400 Respiratory rate 16 /min Dr. Chiki Gonzales MD Work Phone: [facility] 12-08-2024 12:07-0400 SaO2% (BldA) [Mass fraction] 99 % Dr. Chiki Gonzales MD Work Phone: [facility] 12-08-2024 12:07-0400 Systolic blood pressure 124 mm[Hg] Dr. Chiki Gonzales MD Work Phone: [facility] 12-08-2024 06:29-0400 Body height 182.[address] Chiki Gonzales MD Work Phone: [facility] 12-08-2024 06:29-0400 Body mass index (BMI) [Ratio] 37.3 kg/m2 Dr. Chiki Gonzales MD Work Phone: [facility] 12-08-2024 06:29-0400 Body weight [address] Chiki Gonzales MD Work Phone: [facility] 12-07-2024 07:13-0400 Diastolic blood pressure 52 mm[Hg] Dr. Chiki Gonzales MD Work Phone: [facility] 12-07-2024 07:13-0400 Heart rate 98 /min Dr. Chiki Gonzales MD Work Phone: [facility] 12-07-2024 07:13-0400 Systolic blood pressure 108 mm[Hg] Dr. Chiki Gonzales MD Work Phone: [facility] 12-07-2024 07:12-0400 Body temperature 98.5 [degF] Dr. Chiki Gonzales MD Work Phone: [facility] 12-07-2024 07:12-0400 Respiratory rate 16 /min Dr. Chiki Gonzales MD Work Phone: [facility] 12-07-2024 06:10-0400 SaO2% (BldA) [Mass fraction] 91 % Dr. Chiki Gonzales MD Work Phone: [phone] [place] [address] 12-07-2024 03:57-0400 Body height 182.[address] Chiki Gonzales MD Work Phone: [facility] 12-07-2024 03:57-0400 Body mass index (BMI) [Ratio] 38 kg/m2 Dr. Chiki Gonzales MD Work Phone: [facility] 12-07-2024 03:57-0400 Body weight [address] Chiki Gonzales MD Work Phone: [facility] 12-06-2024 14:53-0400 Body temperature 97.6 [degF] Dr. Chiki Gonzales MD Work Phone: [facility] 12-06-2024 14:53-0400 Diastolic blood pressure 75 mm[Hg] Dr. Chiki Gonzales MD Work Phone: [facility] 12-06-2024 14:53-0400 Heart rate 91 /min Dr. Chiki Gonzales MD Work Phone: [facility] 12-06-2024 14:53-0400 Respiratory rate 16 /min Dr. Chiki Gonzales MD Work Phone: [facility] 12-06-2024 14:53-0400 SaO2% (BldA) [Mass fraction] 100 % Dr. Chiki Gonzales MD Work Phone: [facility] 12-06-2024 14:53-0400 Systolic blood pressure 128 mm[Hg] Dr. Chiki Gonzales MD Work Phone: [facility] 12-06-2024 07:40-0400 Body weight 127.[address] Chiki Gonzales MD Work Phone: [facility] 12-04-2024 11:37-0400 Body height 182.[address] Chiki Gonzales MD Work Phone: [facility] 12-04-2024 11:37-0400 Body mass index (BMI) [Ratio] 38 kg/m2 Dr. Chiki Gonzales MD Work Phone: [facility] 11-26-2024 10:53-0400 Body mass index (BMI) [Ratio] 37.97 kg/m2 Sheyla Moreno APRN.CNM Work Phone: [facility] 11-26-2024 10:53-0400 Body weight 127.01 kg Sheyla Moreno APRN.CNM Work Phone: [facility] 11-26-2024 10:53-0400 Diastolic blood pressure 78 mm[Hg] Sheyla Moreno APRN.CNM Work Phone: [facility] 11-26-2024 10:53-0400 Systolic blood pressure 126 mm[Hg] Sheyla Moreno APRN.CNM Work Phone: [facility] 10-25-2024 14:23-0400 Body mass index (BMI) [Ratio] 37.05 kg/m2 Kelly Baltazar MD Work Phone: [facility] 10-25-2024 14:23-0400 Body weight 123.92 kg Kelly Baltazar MD Work Phone: [facility] 10-25-2024 14:23-0400 Diastolic blood pressure 72 mm[Hg] Kelly Baltazar MD Work Phone: [facility] 10-25-2024 14:23-0400 Systolic blood pressure 120 mm[Hg] Kelly Baltazar MD Work Phone: [facility] 09-27-2024 15:15-0400 Body mass index (BMI) [Ratio] 37.16 kg/m2 Adina Krueger MD Work Phone: [facility] 09-27-2024 15:15-0400 Body weight 124.29 kg Adina Krueger MD Work Phone: [facility] 09-27-2024 15:15-0400 Diastolic blood pressure 70 mm[Hg] Adina Krueger MD Work Phone: [facility] 09-27-2024 15:15-0400 Systolic blood pressure 134 mm[Hg] Adina Krueger MD Work Phone: [facility] 09-03-2024 15:08-0400 Body mass index (BMI) [Ratio] 36.75 kg/m2 Elli Gaytan MD Work Phone: [facility] 09-03-2024 15:08-0400 Body weight 122.92 kg Elli Gaytan MD Work Phone: [facility] 09-03-2024 15:08-0400 Diastolic blood pressure 68 mm[Hg] Elli Gaytan MD Work Phone: [facility] 09-03-2024 15:08-0400 Systolic blood pressure 142 mm[Hg] Elli Gaytan MD Work Phone: [facility] 08-02-2024 15:08-0400 Body mass index (BMI) [Ratio] 37.43 kg/m2 Polly Hamilton MD Work Phone: [facility] 08-02-2024 15:08-0400 Body weight 125.19 kg Polly Hamilton MD Work Phone: [facility] 08-02-2024 15:08-0400 Diastolic blood pressure 76 mm[Hg] Polly Hamilton MD Work Phone: [facility] 08-02-2024 15:08-0400 Systolic blood pressure 138 mm[Hg] Polly Hamilton MD Work Phone: [facility] 07-05-2024 15:21-0400 Body mass index (BMI) [Ratio] 37.78 kg/m2 Kelly Baltazar MD Work Phone: [facility] 07-05-2024 15:21-0400 Body weight 126.37 kg Kelly Baltazar MD Work Phone: [facility] 07-05-2024 15:21-0400 Diastolic blood pressure 80 mm[Hg] Kelly Baltazar MD Work Phone: [facility] 07-05-2024 15:21-0400 Systolic blood pressure 120 mm[Hg] Kelly Baltazar MD Work Phone: [facility] 06-07-2024 14:40-0500 Body height 182.9 cm Leanne Kenia ELECTRIC MOTOR REPAIRER.RESIDENTIAL SALES EXECUTIVE Work Phone: [facility] 06-07-2024 14:40-0500 Body mass index (BMI) [Ratio] 38 kg/m2 Leanne Milwaukee ELECTRIC MOTOR REPAIRER.RESIDENTIAL SALES EXECUTIVE Work Phone: [facility] 06-07-2024 14:40-0500 Body weight 127.1 kg Leanne Kenia ELECTRIC MOTOR REPAIRER.RESIDENTIAL SALES EXECUTIVE Work Phone: [facility] 06-07-2024 14:40-0500 Diastolic blood pressure 70 mm[Hg] Leanne Kenia ELECTRIC MOTOR REPAIRER.RESIDENTIAL SALES EXECUTIVE Work Phone: [facility] 06-07-2024 14:40-0500 Systolic blood pressure 118 mm[Hg] Leanne Kenia ELECTRIC MOTOR REPAIRER.RESIDENTIAL SALES EXECUTIVE Work Phone: [facility] 05-24-2024 08:03-0500 Body mass index (BMI) [Ratio] 38.63 kg/m2 Crissy Tom ELECTRIC MOTOR REPAIRER.CNM Work Phone: [facility] 05-24-2024 08:03-0500 Body weight 129.18 kg Crissy Tom ELECTRIC MOTOR REPAIRER.CNM Work Phone: [facility] 05-24-2024 08:03-0500 Diastolic blood pressure 68 mm[Hg] Crissy oTm ELECTRIC MOTOR REPAIRER.CNM Work Phone: [facility] 05-24-2024 08:03-0500 Systolic blood pressure 124 mm[Hg] Crissy Tom ELECTRIC MOTOR REPAIRER.CNM Work Phone: [facility] 02-11-2022 08:15-0500 Body height 182.9 cm Sheyla Moreno ELECTRIC MOTOR REPAIRER.CNM Work Phone: [facility] 02-11-2022 08:15-0500 Body weight 118.93 kg Sheyla Moreno ELECTRIC MOTOR REPAIRER.CNM Work Phone: [facility] 02-11-2022 08:15-0500 Diastolic blood pressure 70 mm[Hg] Sheyla Moreno ELECTRIC MOTOR REPAIRER.CNM Work Phone: [facility] 02-11-2022 08:15-0500 Systolic blood pressure 118 mm[Hg] Sheyla Moreno ELECTRIC MOTOR REPAIRER.CNM Work Phone: [facility] Encounters Encounter Date Encounter Type Care Provider Facility Start: 12-24-2024 [facility] Facility[facility] Start: 12-21-2024 End: 12-21-2024 Patient encounter procedure Whi Tech 2 Prepress Specialist [facility] Comment on above: Gestational hyperten beti, third trimester (HCC) (Primary Dx); Maternal obesity, antepartum (HCC); 36 weeks gestation of (HCC) 36 weeks gestation o f (HCC) (Primary Dx); Chronic hypertension in (HCC); Obesity affecting in third trimester, unspecified obesity type ([facility]); Calculus of kidney affecting in third trimester ([facility]) Start: 12-21-2024 End: 12-21-2024 ambulatory ELLI GAYTAN Facility:[facility] Start: 12-17-2024 End: 12-17-2024 Patient encounter procedure Miki Tech 1 Prepress Specialist [facility] Comment on above: 36 weeks gestation o f (HCC) (Primary Dx); Chronic hypertension in (HCC); Obesity affecting in third trimester, unspecified obesity type (HCC); Antepartum anemia complicating in third trimester (HCC) Start: 12-17-2024 End: 12-17-2024 ambulatory Crissy Tom ELECTRIC MOTOR REPAIRER.CNM Work Phone: OB/Gynecology Comment on above: This weeks visits Start: 12-15-2024 End: 12-15-2024 ambulatory CHIKI GONZALES Facility:[facility] Start: 12-15-2024 End: 12-15-2024 Patient encounter procedure Crissy Tom ELECTRIC MOTOR REPAIRER.CNM Work Phone: OB/Gynecology Comment on above: Chronic hypertension in (HCC) (Primary Dx); Obesity affecting in third trimester, unspecified obesity type (HCC); Antepartum anemia complicating in third trimester (HCC); Generalized anxiety disorder; 35 weeks gestation of (HCC); Calculus of kidney affecting in third trimester (HCC) Start: 12-15-2024 End: 12-15-2024 ambulatory CRISSY TOM Facility:[facility] Start: 12-14-2024 End: 12-14-2024 Telephone encounter Adina [...] Start: 12-13-2024 End: 12-13-2024 ambulatory KELLY BALTAZAR Facility:[facility] Start: 12-08-2024 ambulatory Madison Butler Facility:[facility] Start: 12-08-2024 Non-patient / Non-visit Dr. Latesha metz MD -[facility] Start: 12-08-2024 End: 12-08-2024 Admission to same [...] Non-patient / Non-visit Dr. Latesha metz MD -[facility] Start: 12-05-2024 Non-patient / Non-visit Dr. Latesha metz MD -[facility] Start: 12-04-2024 ambulatory Sheyla Moreno Facility: [facility] Start: 12-04-2024 End: 12-06-2024 Evaluation and management of inpatient Sheyla Moreno CNM [facility] Work Phone: Start: 12-04-2024 End: 12-04-2024 Telephone encounter Amisha Alberto MD Work Phone: Gynecology Start: 11-26-2024 End: 11-26-2024 ambulatory CHIKI GONZALES Facility:[facility] Start: 11-26-2024 End: 11-26-2024 Patient encounter procedure Whi Tech 1 Prepress Specialist [facility] Comment on [...] Start: 11-26-2024 End: 11-26-2024 ambulatory CHIKI GONZALES Facility:[facility] Start: 11-08-2024 End: 11-08-2024 ambulatory KELLY BALTAZAR Facility:[facility] Start: 10-29-2024 End: 10-29-2024 Telephone encounter Kelly [...] 10-25-2024 Patient encounter procedure Whi Tech 1 Prepress Specialist [facility] Comment on above: Encounter for ultras ound to check growth (HCC) (Primary Dx); Chronic hypertension in (HCC); 28 weeks gestation of (HCC) Start: 10-25-2024 End: 10-25-2024 ambulatory CHIKI GONZALES Facility:[facility] Start: 09-27-2024 End: 09-27-2024 Patient encounter procedure Adina Krueger MD Work Phone: OB/Gynecology Comment on above: Supervision of high risk in second trimester (HCC) (Primary Dx); UTI (urinary tract infection) in , antepartum (HCC); Chronic hypertension in (HCC); 24 weeks gestation of (HCC) Start: 09-27-2024 End: 09-27-2024 ambulatory CHIKI Trip JANET Facility:[facility] Start: 09-20-2024 End: 11-20-2024 Follow-up encounter Elli Gaytan MD Work Phone: OB/Gynecology Start: 09-17-2024 End: 09-17-2024 ambulatory CHIKI GONZALES Facility:[facility] Start: 09-16-2024 End: 09-21-2024 ambulatory Elli Gaytan [...] hypertension in (HCC); Obesity in ([facility]); History of pre-eclampsia; UTI (urinary tract infection) in , antepartum ([facility]); 21 weeks gestation of ([facility]) Encounter for anatomic survey (HCC) (Primary Dx); 8 weeks gestation of (HCC); Obesity affecting in second trimester, unspecified obesity type (HCC) Start: 09-03-2024 End: 09-03-2024 ambulatory LEANNE MILLSF Facility:[facility] Start: 08-04-2024 End: 08-04-2024 Follow-up encounter Radha Hammer APRN.CNP Work Phone: OB/Gynecology Comment on above: Results Start: 08-02-2024 End: 08-02-2024 Patient encounter procedure Polly Hamilton MD Work Phone: OB/Gynecology Comment on above: , supervisi on, high-risk, unspecified trimester (HCC) (Primary Dx); BMI 38.0-38.9,adult; 16 weeks gestation of (HCC); UTI (urinary tract infection) in , antepartum (HCC) Start: 08-02-2024 End: 08-02-2024 ambulatory CHIKI Trip OGNZALES Facility:[facility] Start: 07-13-2024 End: 07-13-2024 ambulatory Leanne Barahonacalf ELECTRIC MOTOR REPAIRER.RESIDENTIAL SALES EXECUTIVE Work Phone: OB/Gynecology Start: 07-13-2024 End: 07-13-2024 Patient encounter procedure Leanne Kenia ELECTRIC MOTOR REPAIRER.RESIDENTIAL SALES EXECUTIVE Work Phone: OB/Gynecology Comment on above: August 02 appointnv nt Start: 07-08-2024 End: 07-08-2024 Telephone encounter Kelly Baltazar MD Work Phone: OB/Gynecology Comment on above: Orders Start: 07-05-2024 End: 07-05-2024 ambulatory LEANNE ELLENDALE Facility:[facility] Start: 07-05-2024 End: 07-05-2024 Patient encounter procedure Kelly Baltazar MD Work Phone: OB/Gynecology Comment on above: , supervisi on, high-risk, unspecified trimester (Primary Dx); 12 weeks gestation of ; UTI (urinary tract infection) in , antepartum; Elevated LFTs 8 weeks gestation of Start: 07-05-2024 End: 09-04-2024 Follow-up encounter Kelly Baltazar MD Work Phone: OB/Gynecology Start: 06-07-2024 End: 06-07-2024 ambulatory LEANNE ELLENDALE Facility:[facility] Start: 06-07-2024 End: 06-07-2024 Patient encounter procedure Leanne Kenia ELECTRIC MOTOR REPAIRER.RESIDENTIAL SALES EXECUTIVE Work Phone: OB/Gynecology Comment on above: BMI 38.0-38.9,adult (Primary Dx); with uncertain dates, antepartum; Screening for cervical cancer; Screen for STD (sexually transmitted disease); 8 weeks gestation of ; History of anemia; Generalized anxiety disorder; , supervision, high-risk, unspecified trimester Start: 06-07-2024 End: 06-09-2024 Follow-up encounter Leanne [place] ELECTRIC MOTOR REPAIRER.RESIDENTIAL SALES EXECUTIVE Work Phone: OB/Gynecology Comment on above: UTI (urinary tract i nfection) in , antepartum (Primary Dx) Start: 05-24-2024 End: 05-24-2024 ambulatory CRISSY SINGHDAVION Facility:[facility] Start: 05-24-2024 End: 05-24-2024 Patient encounter procedure Crissy Tom ELECTRIC MOTOR REPAIRER.CARLOS Work Phone: OB/Gynecology Comment on above: Missed [...] requested procedure Sheyla Moreno CNM Work Phone: [facility] Start: 05-29-2020 End: 05-29-2020 Telephone [...] ultrasound of kidneys and bladder Dr. Chiki Goznales MD Work Phone: Start: 12-06-2024 Introduction to [...] after 1st trimest 1/1st gestation Leanne Kenia ELECTRIC MOTOR REPAIRER.RESIDENTIAL SALES EXECUTIVE Work Phone: Start: 07-05-2024 Us preg uterus after 1st trimest 1/1st gestation Leanne Milwaukee ELECTRIC MOTOR REPAIRER.RESIDENTIAL SALES EXECUTIVE Work Phone: Start: 06-07-2024 Antibody screen ADINA KRUEGER Comment on above: Order Comment: Speci men Type: BLOOD SPECIMENOrdering Facility: [facility] Address: [address] [place] [address] Performed By: #### T SPN ####CC MAIN BLOOD BANKCLIA [id number] [address] [place] Start: 06-07-2024 Us uterus l imited 1/ fetuses Leanne Aquino ELECTRIC MOTOR REPAIRER.RESIDENTIAL SALES EXECUTIVE Work Phone: Start: 05-24-2024 UA DIP,URINE HCG (POC) Crissy Tom ELECTRIC MOTOR REPAIRER.CNM Work Phone: Start: 12-13-2020 End: 10-27-2024 Vaccine refused by patient COVID-19 vaccine series declined Sheyla Moreno ELECTRIC MOTOR REPAIRER.CNM Work Phone: Plan of Treatment Date Care Activity Detail Author Start: 11-13-2030 Urine microalbumin profile [facility] Start: 06-07-2029 Screening for malign ant neoplasm of cervix Cervical Cancer Screening [facility] Start: 06-15-2025 HPV TESTING HPV TESTING [facility] Start: 06-15-2025 PAP TESTING PAP TESTING [facility] Start: 06-15-2025 Screening for malign ant neoplasm of cervix Cervical Cancer Screening [facility] Start: 12-27-2024 End: 12-27-2024 Patient encounter procedure Maternal Medicine Comment on above: Growth Growth/OB Growth/BPP Start: 12-24-2024 End: 12-24-2024 Patient encounter procedure 12/24/2024 2:50 PM EDT Routine Office Visit OB/Gynecology [address] [place] [address] Polly Hamilton MD [address] [place] [address] OB/NST OB/Gynecology Comment on above: OB/NST Start: 12-21-2024 End: 12-21-2024 Patient encounter procedure Maternal Medicine Comment on above: BPP OB Start: 12-20-2024 End: 12-20-2024 Patient encounter procedure OB/Gynecology Comment on above: OB Start: 12-17-2024 End: 12-17-2024 Patient encounter procedure 12/17/2024 9:00 AM EDT Routine Office Visit Maternal Medicine [address] [place] [address] BPP Maternal Medicine Comment on above: BPP Start: 12-15-2024 End: 12-15-2024 Patient encounter procedure 12/15/2024 3:30 PM EDT Routine Office Visit OB/Gynecology [address] [place] [address] Crissy Tom APRN.[facility] [address] [place] [address] NST only OB/Gynecology Comment on above: NST only Start: 12-14-2024 End: 03-15-2025 CBC panel - Blood by Automated count COMPLETE BLOOD COUNT Lab Routine Chronic hypertension with superimposed pre-eclampsia (HCC) Expected: 12/14/2024, Expires: 03/15/2025 [facility] Comment on above: Expected: 12/14/2024 , Expires: 03/15/2025 Start: 12-14-2024 End: 03-15-2025 Comprehensive metabolic 2000 panel - Serum or Plasma COMPREHENSIVE METABOLIC PANEL Lab Routine Chronic hypertension with superimposed pre-eclampsia (HCC) Expected: 12/14/2024, Expires: 03/15/2025 [facility] Comment on above: Expected: 12/14/2024 , Expires: 03/15/2025 Start: 12-14-2024 End: 03-15-2025 Urate [Mass/volume] in Serum or Plasma URIC ACID Lab Routine Chronic hypertension with superimposed pre-eclampsia (HCC) Expected: 12/14/2024, Expires: 03/15/2025 [facility] Comment on above: Expected: 12/14/2024 , Expires: 03/15/2025 Start: 12-13-2024 End: 12-13-2024 Patient encounter procedure 12/13/2024 10:10 AM EDT Routine Office Visit OB/Gynecology [address] [place] [address] Kelly Baltazar MD [address] [place] [address] OB OB/Gynecology Comment on above: OB Start: 12-08-2024 [facility] Start: 12-07-2024 Consultation [facility] Start: 12-07-2024 Patient discharge [facility] Start: 12-06-2024 Influenza vaccination C [facility] Start: 12-06-2024 RSV Vaccine (1 - Ris k 1-dose series) RSV Vaccine (1 - Risk 1-dose series) [facility] Start: 12-06-2024 Patient discharge [facility] Start: 12-05-2024 Nonstress test [facility] Start: 12-05-2024 [facility] Start: 12-05-2024 Application of intermittent pneumatic compression device [facility] Start: 12-05-2024 Catheterization of vein [facility] Start: 12-04-2024 Admission procedure [facility] Start: 12-04-2024 [facility] Start: 12-04-2024 Consultation [facility] Start: 12-04-2024 Nonstress test [facility] Start: 12-04-2024 End: 12-04-2024 [facility] Start: 12-04-2024 Nonstress test [facility] Start: 12-04-[address] [facility] Start: 12-04-2024 Vital signs measurements [facility] Start: 12-04-2024 Collection of urine and strain for calculus [facility] Start: 11-26-2024 End: 11-26-2024 Patient encounter procedure [facility] Comment on above: Growth/OB Start: 11-22-2024 End: 11-22-2024 Patient encounter procedure 11/22/2024 1:30 PM EDT Routine Office Visit OB/Gynecology [address] [place] [address] Kelly Baltazar MD [address] [place] [address] OB OB/Gynecology Comment on above: OB Start: 11-08-2024 End: 11-08-2024 Patient encounter procedure 11/08/2024 10:40 AM EDT Routine Office Visit OB/Gynecology [address] [place] [address] Kelly Baltazar MD [address] [place] [address] OB OB/Gynecology Comment on above: OB Start: 10-25-2024 End: 10-25-2024 Patient encounter procedure 10/25/2024 3:10 PM EDT Routine Office Visit OB/Gynecology [address] [place] [address] Kelly Baltazar MD [address] [place] [address] OB Routine OB/Gynecology Comment on above: OB Routine Start: 10-25-2024 End: 10-25-2024 ambulatory 10/25/2024 3:00 PM EDT Results Only [place] [facility] [address] [place] [address] Glucose test and Labs [facility] Comment on above: Glucose test and Lab s Start: 10-25-2024 End: 10-25-2024 Patient encounter procedure 10/25/2024 1:30 PM EDT Routine Office Visit [facility] [address] [place] [address] Growth [facility] Comment on above: Growth Start: 09-27-2024 End: 09-27-2024 Patient encounter procedure OB/Gynecology Comment on above: OB Routine OB Routine - needs T OC once finished with Augmentin Start: 09-27-2024 End: 12-27-2024 ANEMIA REFLEX PANEL ANEMIA REFLEX PANEL Lab Routine Expected: 09/27/2024, Expires: 12/27/2024 [facility] Comment on above: Expected: 09/27/2024 , Expires: 12/27/2024 Start: 09-27-2024 End: 09-27-2025 GESTATIONAL GLUCOSE SCREEN, 1-HOUR, 50 GRAM, NON-FASTING GESTATIONAL GLUCOSE SCREEN, 1-HOUR, 50 GRAM, NON-FASTING Lab Routine Expected: 09/27/2024, Expires: 09/27/2025 [facility] Work Phone: Comment on above: Expected: 09/27/2024 , Expires: 09/27/2025 Start: 09-27-2024 End: 09-27-2025 SYPHILIS TREPONEMAL W/REFLEX SYPHILIS TREPONEMAL W/REFLEX Lab Routine Expected: 09/27/2024, Expires: 09/27/2025 [facility] Comment on above: Expected: 09/27/2024 , Expires: 09/27/2025 Start: 09-14-2024 End: 12-14-2024 Bacteria identified in Urine by Culture BACTERIAL CULTURE, URINE Microbiology Routine UTI (urinary tract infection) in , antepartum (HCC) Expected: 09/14/2024 (Approximate), Expires: 12/14/2024 [facility] Comment on above: Expected: 09/14/2024 (Approximate), Expires: 12/14/2024 Start: 09-03-2024 End: 09-03-2024 Patient encounter procedure [facility] Comment on above: Anatomy Scan OB Routine Start: 08-02-2024 End: 08-02-2024 Patient encounter procedure 08/02/2024 3:10 PM EDT Routine Office Visit OB/Gynecology [address] [place] [address] Polly Hamilton MD [address] [place] [address] OB Routine OB/Gynecology Comment on above: OB Routine Start: 07-05-2024 End: 07-05-2024 Patient encounter procedure Maternal Medicine Comment on above: Nuchal OB Routine Start: 07-05-2024 End: 10-04-2024 Chromosome 21 trisomy [Presence] in Blood or Tissue by Cytogenetics [id number] PLUS Lab Routine 8 weeks gestation of Expected: 07/05/2024, Expires: 10/04/2024 [facility] Comment on above: Expected: 07/05/2024 , Expires: 10/04/2024 Start: 06-07-2024 End: 06-07-2024 Patient encounter procedure 06/07/2024 2:45 PM EST Initial Office Visit OB/Gynecology [address] [place] [address] Leanne Aquino APRN.RESIDENTIAL SALES EXECUTIVE [address] [place] [address] New ob OB/Gynecology Comment on above: New ob Start: 06-07-2024 End: 09-06-[address] [facility] Work Phone: Comment on above: Expected: 06/07/2024 , Expires: 09/06/2024 Start: 06-07-2024 End: 09-06-2024 Comprehensive metabolic 2000 panel - Serum or Plasma [facility] Comment on above: Expected: 06/07/2024 , Expires: 09/06/2024 Start: 06-07-2024 End: 09-06-2024 Hemoglobin A1c in Blood [facility] Comment on above: Expected: 06/07/2024 , Expires: 09/06/2024 Start: 06-07-2024 End: 09-06-2024 Hepatitis B virus surface Ag [Presence] in Serum [facility] Comment on above: Expected: 06/07/2024 , Expires: 09/06/2024 Start: 06-07-2024 End: 09-06-2024 Hepatitis C virus Ab [Presence] in Serum [facility] Comment on above: Expected: 06/07/2024 , Expires: 09/06/2024 Start: 06-07-2024 End: 09-06-2024 HIV 1+2 Ab [Presence] in Serum or Plasma by Immunoassay [facility] Comment on above: Expected: 06/07/2024 , Expires: 09/06/2024 Start: 06-07-2024 End: 06-07-2025 OBSTETRIC ULTRASOUND WHI OBSTETRIC ULTRASOUND WHI Anc Imaging Routine 8 weeks gestation of Expected: 06/07/2024, Expires: 06/07/2025 [facility] Comment on above: Expected: 06/07/2024 , Expires: 06/07/2025 Start: 06-07-2024 End: 09-06-2024 Protein/Creatinine [Mass Ratio] in Urine [facility] Comment on above: Expected: 06/07/2024 , Expires: 09/06/2024 Start: 06-07-2024 End: 09-06-2024 RUBELLA IGG ANTIBODY [facility] Comment on above: Expected: 06/07/2024 , Expires: 09/06/2024 Start: 06-07-2024 End: 09-06-2024 SYPHILIS TREPONEMAL W/REFLEX [facility] Comment on above: Expected: 06/07/2024 , Expires: 09/06/2024 Start: 06-07-2024 End: 09-06-2024 TYPE + SCREEN [facility] Comment on above: Expected: 06/07/2024 , Expires: 09/06/2024 Start: 06-07-2024 End: 06-07-2024 Patient encounter procedure 06/07/2024 10:30 AM EST Routine Office Visit OB/Gynecology [address] [place], [place] [id number] Crissy Tom APRN.CN [address] [place] [address] Last cycle 04/09/2024, expecting, took 2 at home test OB/Gynecology Comment on above: Last cycle , expecting, took 2 at home test Start: 12-07-2023 Covid-19 Vaccine ( season) Covid-19 Vaccine ( season) [facility] Start: 12-07-2023 Influenza vaccination Influenza Vacc ine (#1) [facility] Start: 12-06-2022 Influenza vaccination Influenza Vacc ine (#1) [facility] Start: 04-07-2022 Depression Assessment Depression Ass essment [facility] Start: 02-11-2022 End: 04-13-2022 Thyrotropin [Units/volume] in Serum or Plasma [facility] Work Phone: Comment on above: Expected: 02/11/2022 , Expires: 04/13/2022 Start: 12-06-2021 Influenza vaccination INFLUENZA (#1) [facility] Start: 04-07-2021 DEPRESSION ASSESSMENT DEPRESSION ASS ESSMENT [facility] Start: 2020 HPV TESTING HPV TESTING [facility] Start: 12-07-2019 Influenza vaccination INFLUENZA (#1) [facility] Start: 2017 HPV Vaccine (1 - 3-d ose SCDM series) HPV Vaccine (1 - 3-dose SCDM series) [facility] Start: 2011 PAP TESTING PAP TESTING [facility] Start: 2009 Hepatitis B Vaccine (1 of 3 - 19+ 3-dose series) Hepatitis B Vaccine (1 of 3 - 19+ 3-dose series) [facility] Start: 2009 Urine microalbumin profile DTAP,TDAP,TD (1 - Tdap) [facility] Start: 2008 Anxiety Screening Anxiety Screening [facility] Start: 2008 Depression Screening Depression Scre ening [facility] Start: 2008 HEPATITIS C SCREENING HEPATITIS C SC REENING [facility] Start: 2008 HIV SCREENING HIV SCREENING [facility] Start: 2002 Adult depression screening assessment DEPRESSION SCREENING [facility] Start: 1990 COVID-19 VACCINE (#1) COVID-19 VACCI NE (#1) [facility] Start: 1990 HEPATITIS B (1 of 3 - 3-dose series) HEPATITIS B (1 of 3 - 3-dose series) [facility] Start: 1990 Hepatitis B Vaccine (1 of 3 - 3-dose series) Hepatitis B Vaccine (1 of 3 - 3-dose series) [facility] Bacteria identified in Urine by Culture BACTERIAL CULTURE, URINE Microbiology Routine 8 weeks gestation of 06/07/2024 3:39 PM EST [facility] Bacteria identified in Urine by Culture BACTERIAL CULTURE, URINE Microbiology Routine 12 weeks gestation of UTI (urinary tract infection) in , antepartum , supervision, high-risk, unspecified trimester 07/05/2024 3:[address] [facility] Work Phone: Bacteria identified in Urine by Culture BACTERIAL CULTURE, URINE Microbiology Routine UTI (urinary tract infection) in , antepartum ([facility]) 08/02/2024 3:[address] [facility] Work Phone: Bacteria identified in Urine by Culture BACTERIAL CULTURE, URINE Microbiology Routine Supervision of high risk in second trimester ([facility]) History of pre-eclampsia UTI (urinary tract infection) in , antepartum (HCC) 21 weeks gestation of ([facility]) 09/03/2024 3:20 PM EDT [facility] Bacteria identified in Urine by Culture BACTERIAL CULTURE, URINE Microbiology Routine UTI (urinary tract infection) in , antepartum ([facility]) Supervision of high risk in second trimester (HCC) Chronic hypertension in (HCC) 24 weeks gestation of (HCC) Ordered: 09/27/2024 [facility] Comment on above: Ordered: 09/27/2024 Bacteria identified in Urine by Culture BACTERIAL CULTURE, URINE Microbiology Routine UTI (urinary tract infection) in , antepartum ([facility]) Supervision of high risk in second trimester ([facility]) Chronic hypertension in (HCC) 28 weeks gestation of (HCC) 10/25/2024 3:[address] [facility] Work Phone: End: 01-18-2025 BIOPHYSICAL PROFILE US [facility]I BIOPHYSICAL PROFILE US [facility] Anc Imaging Routine Chronic hypertension in (HCC) Obesity affecting in third trimester, unspecified obesity type ([facility]) Antepartum anemia complicating in third trimester ([facility]) 1 Occurrences starting 12/14/2024 until 01/18/2025 [facility] Work Phone: Comment on above: 1 Occurrences starti ng 12/14/2024 until 01/18/2025 Chlamydia trachomatis+Neisseria gonorrhoeae DNA [Presence] in Unspecified specimen by KEVIN with probe detection GONORRHEA/CHLAMYDIA NAAT Lab Routine Screen for STD (sexually transmitted disease) 8 weeks gestation of 06/07/2024 3:39 PM [facility] End: 01-17-2025 nonstress test NON-STRESS TEST Procedures Routine Chronic hypertension in (HCC) Obesity affecting in third trimester, unspecified obesity type ([facility]) 35 weeks gestation of ([facility]) Once per week for 4 Occurrences starting 12/13/2024 until 01/17/2025 [facility] Work Phone: Comment on above: Once per week for 4 Occurrences starting 12/13/2024 until 01/17/2025 End: 05-29-2021 HCG.beta subunit Qn HCG QUANTITATIVE Lab Routine Threatened miscarriage 1 Occurrences starting 05/29/2020 until 05/29/2021 [facility] Comment on above: 1 Occurrences starti ng 05/29/2020 until 05/29/2021 HCG.beta subunit Qn HCG QUANTITA TIVE Lab Routine Threatened miscarriage 05/29/2020 4:41 PM [facility] End: 01-25-2025 OBSTETRIC ULTRASOUND WHI OBSTETRIC ULTRASOUND WHI Anc Imaging Routine Chronic hypertension in (HCC) 21 weeks gestation of (HCC) Once per month for 5 Occurrences starting 09/03/2024 until 01/25/2025 [facility] Work Phone: Comment on above: Once per month for 5 Occurrences starting 09/03/2024 until 01/25/2025 PAP TEST PAP TEST Lab Shannon patsy Screening for cervical cancer 8 weeks gestation of 06/07/2024 3:39 PM [facility] Patient Education Kick Counts ED False Labor OB Triage: Return to Hospital or Notify Physician if you Experience: [facility] Work Phone: TRICHOMONAS VAGINALI S NAAT TRICHOMONAS VAGINALIS NAAT Lab Routine Screen for STD (sexually transmitted disease) 8 weeks gestation of 06/07/2024 3:39 PM [facility] UA DIP,URINE HCG (POC) UA DIP,UR INE HCG (POC) Lab Routine UTI (urinary tract infection) in , antepartum (HCC) Ordered: 09/07/2024 [facility] Work Phone: Comment on above: Ordered: 09/07/2024 [facility] Immunizations Immunization Date Immunization Notes Care Provider Ijeoma staley 11-13-2020 tetanus toxoid, redu rosemary diphtheria toxoid, and acellular pertussis vaccine, adsorbed Sheyla Moreno APRN.CNM Work Phone: [facility] 04-05-2019 tetanus toxoid, redu rosemary diphtheria toxoid, and acellular pertussis vaccine, adsorbed Dr. Chiki Gonzales MD Work Phone: [facility] Payers Date Payer Category Payer Self-pay 2024 Unknown [id number] 2023 [facility] BLUE CARD PPO OOS [id number] 2023 Unknown [id number] 2020 Unknown [id number] 2006 Private Health Insurance [employer] PPO [id number] 2006-Present PPO [id number] Private Health Insurance [id number] Unknown [id number] Unknown [id number] Unknown [id number] Unknown [id number] Unknown [id number] Unknown [id number] Unknown [id number] Social History Date Type Detail Facility Start: 08-08-2012 Tobacco smoking stat us [facility] Never smoker [facility] Start: 08-08-2012 Alcohol intake Not Asked [facility] Start: 1990 Sex Assigned At Not on file [facility] Start: 12-17-2020 End: 01-16-2021 Exposure to SARS-CoV-2 (event) Not sure [facility] Start: 06-08-2020 End: 06-07-2024 Tobacco smoking status NHIS Ex-smoker [facility] Work Phone: Start: 06-08-2009 End: 06-08-2017 History of tobacco use Current smoker [facility] Work Phone: Start: 06-08-2009 End: 06-08-2017 History of tobacco use Cigarette Smoker [facility] Work Phone: Start: 06-08-2020 End: 05-24-2024 Tobacco use and exposure Smokeless tobacco non-user [facility] Work Phone: Start: 02-20-2021 End: 12-22-2024 Alcohol intake Ex-drinker (finding) [facility] Start: 06-08-2020 Education 16 [facility] Start: 06-08-2020 Alcohol Comment social occasional dr mclaughlin [facility] Start: 02-11-2022 End: 04-09-2023 History of Social function [facility] Start: 02-11-2022 End: 04-09-2023 Tobacco use panel [facility] Start: 03-08-2012 National Score (1-100), lower number is lower risk 51 [facility] Start: 1990 Sex assigned at Female [facility] Start: 05-20-2024 Gender identity Identifies as female gender (finding) [facility] Start: 06-07-2024 Tobacco use and exposure Former smokeless tobacco user [facility] Start: 06-07-2024 Tobacco Comment Nicotine pouch discontinued 04/2024 [facility] Start: 04-23-2024 [facility] Medical Equipment Procedure Code Equipment Code Equipment Origin al Text Equipment Identifier Dates Cystoscopic insertion of stent Polymeric ureteral stent [id number] FDA Start: 12-06-2024 Goals Date Patient Goal Desired Activity /State Personal health goal Mental Status Date Assessment Result Facility 12-08-2024 Cognitive function Level Of Cons ciousness Awake;Alert;Appropriate [facility] Work Phone: 12-08-2024 Cognitive function Voice/Name [facility] Work Phone: 12-06-2024 Cognitive function Level Of Cons ciousness Awake;Alert [facility] Work Phone: Clinical Notes 11-15-2020 to 12-22-2024 [...] discussed with the Patient or Patient's Authorized Bobcat Operator. As applicable, any other physician, advance practice provider, medical student, or other health professional student that will be observing or involved in the sensitive examination for educational or training purposes was discussed with the Patient or Authorized Bobcat Operator. The Patient or Authorized Bobcat Operator has agreed to proceed with the [...] PCR 2. Chronic hypertension in ([facility]) - ICD9: 642.00, ICD10: O10.919 - URINE OB DIP B/O 3. Obesity affecting in third trimester, unspecified obesity type ([facility]) - ICD9: 649.13, ICD10: O99.213 - URINE OB DIP B/O 4. Calculus of kidney affecting in third trimester ([facility]) - ICD9: 646.83, 592.0, ICD10: O99.891, N20.0 with stent, pain controlled for most part w/ tylenol - URINE OB DIP B/O r/b/a to early term delivery due to htn, and pain w/ kidney stone and stent and treatment being deferred until delivery reviewed. Consent signed. Desires to proceed. Adina Krueger MD [facility] 12-22-2024 Miscellaneous Notes RR- VB No. LOF No. CTXS No. Movement: present. Other c/o: No. Medication list reviewed. SENSITIVE EXAM: The sensitive examination was discussed with the Patient or Patient's Authorized Bobcat Operator. As applicable, any other physician, advance practice provider, medical student, or other health professional student that will be observing or involved in the sensitive examination for educational or training purposes was discussed with the Patient or Authorized Bobcat Operator. The Patient or Authorized Bobcat Operator has agreed to proceed with the sensitive examination. (Sensitive examination includes inspection and/or palpation of the breasts, pelvis, prostate and anorectal regions). Physical Exam See Flow Sheet Abd: soft, nontender, gravid Ext: edema: 1+, 2+ DTRs, no clonus A/P 36w5d Estimated Date of Delivery: 01/14/25 ASSESSMENT/PLAN: 1. 36 weeks gestation of ([facility]) - ICD9: V22.2, ICD10: Z3A.36 (primary diagnosis) - URINE OB DIP B/O - ROUTINE, GROUP B STREPTOCOCCUS BY PCR 2. Chronic hypertension in ([facility]) - ICD9: 642.00, ICD10: O10.919 - URINE OB DIP B/O 3. Obesity affecting in third trimester, unspecified obesity type ([facility]) - ICD9: 649.13, ICD10: O99.213 - URINE OB DIP B/O 4. Calculus of kidney affecting in third trimester ([facility]) - ICD9: 646.83, 592.0, ICD10: O99.891, N20.0 with stent, pain controlled for most part w/ tylenol - URINE OB DIP B/O r/b/a to early term delivery due to htn, and pain w/ kidney stone and stent and treatment being deferred until delivery reviewed. Consent signed. Desires to proceed. Adina Krueger MD documented in this encounter [facility] 12-21-2024 Note Indication Evaluation of growth. Evaluation [...] 5 oz EFW by: Hadlock (HC-AC-FL) Extended Pony Rougher 5.5 mm Extremities / Bony Struc FL [...] 12/21/2024 10:40 AM EDT SEQUENTIAL SCREENINGS The [facility] offers sequential screenings for women [...] It will require an appointment with our bindery technician. This is not an ultrasound performed [...] the above symptoms, contact our office at [phone] and ask to speak with a nurse. After hours, you can call doctors registry at [phone] OR call [facility] at [phone] and ask to have the doctor deposition operator paged. If you consider this an emergency, dial 8-8-1 or go to your nearest emergency department. NEED HELP? Are you dealing with a violent or abusive relationship? Are you a victim of rape or sexual assult? Call [facility] ([place]) 24 hour Crisis Hotline: 721.840.1547 or 743-829-5997. MANUAL Your Guide to a Healthy manual is now on-line. Visit the [email or web address] Patel to download your free copy documented in this encounter [facility] 12-17-2024 Note Indication Evaluation of well-being Chronic [...] D.O. MATERNAL MEDICINE 12-15-2024 Note HNO ID: [id number] Author: CRISSY TOM APRN.CNM Service: ? Author Type: Roof Foreman Type: Progress Notes Filed: 12/15/2024 16:38 Note [...] None Interpretation: Reactive SIGNATURE: Crissy Tom APRN.CNM [facility] 12-15-2024 History of Presen t illness Narrative [...] Liz Mckeon LPN documented in this encounter [facility] 12-15-2024 Note HNO ID: [id number] Author: LIZ MCKEON LPN Service: ? Author Type: Licensed Nurse Type: Progress Notes Filed: 12/15/2024 16:38 Note Text: BP 146/83 MELANY BP average 128/84 1 - 128/80 pulse 85 2- 134/79 pulse 90 3- 122/81 4-120/79 Liz Mckeon LPN [facility] 12-15-2024 Progress note Formatting of t his [...] blood pressures, and when to call office/ deposition operator provider. Crissy Tom APRN.CNM [facility] 12-15-2024 Miscellaneous Notes Patient here for NST [...] blood pressures, and when to call office/ deposition operator provider. Crissy Tom APRN.CNM documented in this encounter [facility] 12-14-2024 Telephone encounter Note Patient called back. She will have NST and labs drawn tomorrow. Needs end of day. Scheduled for 3:30 PM. Polly Peace RN [facility] 12-14-2024 Miscellaneous Notes Patient called back. She [...] Adina Krueger MD documented in this encounter [facility] 12-14-2024 Telephone encounter Note Left message to call office. Please notify patient she need to get lab work repeated tomorrow and also needs to be scheduled for NST tomorrow. Eden Lovett RN [facility] 12-14-2024 Telephone encounter Note Labs ordered and BPP order placed. Have her get NST today or tomorrow. [facility] 12-14-2024 Telephone encounter Note Patient notified of below and appointments scheduled. Need orders for BPP's and repeat blood work. Does patient need NST this week also, or OK for just BPP on Friday this ? Eden Lovett RN [facility] 12-14-2024 Telephone encounter Note Needs twice weekly testing. One BPP and one NST. F/u in office twice weekly, call or return for signs/symptoms of severe preeclampsia. Repeat labs Fri or . Likely Ind. 37 weeks. Adina Krueger MD [facility] 12-13-2024 Progress note Formatting of t his [...] RTO 1 wk Kelly Baltazar DO T [facility] 12-13-2024 Miscellaneous Notes SW- Pt doing well. [...] Kelly Baltazar DO documented in this encounter [facility] 12-13-2024 Note HNO ID: [id number] Author: MAURILIO PENN LPN Service: ? Author Type: Licensed Nurse Type: Progress Notes Filed: 12/13/2024 12:58 Note Text: TruBP average: 125/80 130/80 123/79 125/79 127/81 Maurilio Penn LPN [facility] 12-13-2024 History of Presen t illness Narrative TruBP average: 125/80 130/80 123/79 125/79 127/81 Maurilio Penn LPN documented in this encounter [facility] 12-13-2024 Instructions Maurilio Penn LPN - 12/13/2024 9:57 AM EDT SEQUENTIAL SCREENINGS The [facility] offers sequential screenings for women [...] It will require an appointment with our bindery technician. This is not an ultrasound performed [...] the above symptoms, contact our office at [phone] and ask to speak with a nurse. After hours, you can call doctors registry at [phone] OR call [facility] at [phone] and ask to have the doctor deposition operator paged. If you consider this an emergency, dial 9-2-5 or go to your nearest emergency department. NEED HELP? Are you dealing with a violent or abusive relationship? Are you a victim of rape or sexual assult? Call [facility] (Arab) 24 hour Crisis Hotline: 996.832.8837 or 842-397-6325. MANUAL Your Guide to a Healthy manual is now on-line. Visit the [email or web address] to download your free copy documented in this encounter [facility] 12-08-2024 Consult note [facility] 12-08-2024 Consult note Note Date/Time December 08, 2024 12:10pm [facility] Medical Records Department [address] [place] [address] Anesthesia Postop Eval I 12/08/24819 MR#: [id number] Acct: [id number] Name: HILLARY FRAIRE Rep #:[id number] : 1990 34 From: Latesha Charlton CRNA PCP: HIRO Mart Status:REG SDC Y Race: C Location: [place] [address] Anesthesia: Postop Eval I Current Vital Signs [...] Latesha Goodwinigner Signature: Date CC: ~ Signed [facility] Work Phone: 1([phone]) 522-804109-03-2025 Discharge summary Author Latesha Elena [facility] Note Date/Time December 08, 2024 7:41am [facility] Medical Records Department [address] [facility] [place] [address] Instructions for Home/Discharge Instructions 12/08/24 0740 MR#: [id number] Acct: [id number] Name: HILLARY FRAIRE Rep #:[id number] : 1990 34 From: Latesha Geiger PCP: HIRO Mart Status:REG [facility] Discharge Instructions Diet Discharge Diet: No restrictions [...] Care Provider: Madison Butler Instructions Print Language: Polish Discharge Orders/Prescriptions Prescriptions: Continued fchivxcl-qwo-If-FA 1 mg Tablet 1 tab PO DAILY [...] by Latesha Elena MD>Latesha Elena MD CC: GENERAL HARDWARE SALESPERSON-C Madison Butler ~ Signed [facility] Work Phone: 1([phone]) 304-839409-03-2025 History and physical note Author Latesha Elena [facility] Note Date/Time December 08, 2024 7:40am [facility] Medical Records Department [address] [place] [address] H&P Exam - Surgical 12/08/24 0737 MR#: [id number] Acct: [id number] Name: HILLARY FRAIRE Rep #:[id number] : 1990 34 From: Latesha Geiger PCP: HIRO Mart Status:REG [facility] Location: [place] [address] HPI - General General Date of Admission: 12/08/24 Date of Service: 12/08/24 Chief Complaint: Left flank pain HPI Narrative HILLARY FRAIRE, is a 34 F who presents for a cystoscopy with left ureteral stentchange after her inserted stent migrated and her flank pain returned from obstruction due to a large ureteropelvic junction stone. [facility] Medical History Wears glasses Wears contact lenses Low iron Heartburn Hydronephrosis Ureteropelvic junction calculus SROM (spontaneous rupture of membranes) Anxiety Home Medications ?Medication ?Instructions ?Recorded ?Last Taken ?Type kxmbaepv-nkk-Zd-FA 1 mg 1 tab PO DAILY pregna [...] as indicated on the consent form. 12/08/24 0540 <Electronically signed by Latesha Elena MD> Cosigner Signature (if applicable): CC: HIRO Butler; Dr. Latesha Elena MD~ Signed [facility] Work Phone: [phone]) 117-563709-03-2025 Consult note Author Dylon Thapa [facility] Note Date/Time December 08, 2024 6:57am 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 Female Yes 12/07/24 13:32 HX of Motion [...] 12/08/24 06:29 Respiratory Assessment Respiratory Assessment - gas plant operator: Respiratory Tract Infection Hx - gas plant operator Hx Respiratory Tract Infection No 12/07/24 13:32 STOP Sleep Apnea STOP Sleep Apnea - gas plant operator: STOP Sleep Apnea - gas plant operator Hx Hypertension No 12/07/24 13:32 Hx Sleep [...] Tobacco Use History Tobacco Use History - gas plant operator: Tobacco Use History - gas plant operator Tobacco Use Smoking Status Former smoker 12/07/24 13:32 Hx Tobacco Use No 12/07/24 13:32 Years Smoking Packs Smoked per Day Smoking Cessation Date was Yes - quit smoking within 15 12/07/24 13:32 within the last 15 years years Hx Smoking Cessation Date Hx Smoking Cessation Counseling Hematologic Medial History Hematologic 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 Hx of Blood Transfusion No 12/07/24 13:32 [...] 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 - gas plant operator: /Reproductive Hx- gas plant operator Hx Now Yes: 34 WEEKS 12/07/24 13:32 [...] Medications ?Medication ?Instructions ?Recorded ?Last Taken ?Type nnafcnbv-vfq-Yz-FA 1 mg 1 tab PO DAILY pregna [...] MD Cosigner Signature: Date CC: ~ Signed [facility] Work Phone: [phone]) [phone] Discharge summary [facility] Medical Records Department [address] [place] [address] Instructions for Home/Discharge Instructions 12/08/24 0740 MR#: [id number] Acct: [id number] Name: HILLARY FRAIRE Rep #:[id number] : [...] Care Provider: Madison Butler Instructions Print Language: Polish Discharge Orders/Prescriptions Prescriptions: Continued tyjrulrt-kqk-Bn-FA 1 mg Tablet 1 tab PO DAILY [...] MD CC: SHARA-C Madison Butler ~ Signed [facility]09-03-2025 History and physical note [facility] Medical Records Department [address] [place] [address] H&P Exam - Surgical 12/08/24 0737 MR#: [id number] Acct: [id number] Name: HILLARY FRAIRE Rep #:[id number] : 1990 34 From: Latesha Geiger PCP: HIRO Mart Status:REG SDC Location: [place] [address]-1 HPI - General General Date of Admission: 12/08/24 Date of Service: 12/08/24 Chief Complaint: Left flank pain HPI Narrative HILLARY FRAIRE, is a 34 F who presents for a cystoscopy with left ureteral stentchange after her inserted stent migrated and her flank pain returned from obstruction due to a large ureteropelvic junction stone. [facility] Medical History Wears glasses Wears contact lenses Low iron Heartburn Hydronephrosis Ureteropelvic junction calculus SROM (spontaneous rupture of membranes) Anxiety Home Medications ?Medication ?Instructions ?Recorded ?Last Taken ?Type oilqlmiu-xke-Fp-FA 1 mg 1 tab PO DAILY pregna [...] HIRO Butler; Dr. Latesha Elena MD~ Signed [facility]09-03-[address] 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 Female Yes 12/07/24 13:32 HX of Motion [...] 12/08/24 06:29 Respiratory Assessment Respiratory Assessment - gas plant operator: Respiratory Tract Infection Hx - gas plant operator Hx Respiratory Tract Infection No 12/07/24 13:32 STOP Sleep Apnea STOP Sleep Apnea - gas plant operator: STOP Sleep Apnea - gas plant operator Hx Hypertension No 12/07/24 13:32 Hx Sleep [...] Tobacco Use History Tobacco Use History - gas plant operator: Tobacco Use History - gas plant operator Tobacco Use Smoking Status Former smoker 12/07/24 13:32 Hx Tobacco Use No 12/07/24 13:32 Years Smoking Packs Smoked per Day Smoking Cessation Date was Yes - quit smoking within 15 12/07/24 13:32 within the last 15 years years Hx Smoking Cessation Date Hx Smoking Cessation Counseling Hematologic Medial History Hematologic 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 Hx of Blood Transfusion No 12/07/24 13:32 [...] 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 - gas plant operator: /Reproductive Hx- gas plant operator Hx Now Yes: 34 WEEKS 12/07/24 13:32 [...] Medications ?Medication ?Instructions ?Recorded ?Last Taken ?Type nswraggn-vpm-Fg-FA 1 mg 1 tab PO DAILY pregna [...] MD Cosigner Signature: Date CC: ~ Signed [facility]09-02-2025 Progress note Author Polly Hamilton [facility] Note Date/Time December 07, 2024 8:23am [facility] Medical Records Department [address] [place] [address] Progress Note - OBGYN 12/07/24820 MR#: [id number] Acct: [id number] Name: HILLARY FRAIRE Rep #:[id number] : 1990 34 From: Polly Hamilton MD PCP: Dr. Chiki Gonzales MD Status:REG C LI Location: [id number] Subjective Subjective Spoke with Dr Elena. Would [...] Cosigner Signature (if applicable): CC: ~ Signed [facility] Work Phone: 1(852) 895-479709-02-2025 Radiology Diagnostic study note [facility] Imaging Services [address] [place] [address] Kidney and Bladder MR#: [id number] Acct: [id number] Name: HILLARY FRAIRE Rep #: [id number] : 1990 F 34 From: Diana Meza MD PCP: Dr. Chiki Gonzales MD Status: ZEE KONG Study:Kidney and Bladder Date of Exam: 0 12/07/24 Exam# [id number] Ordering Dr: Katy Hamilton MD PROCEDURE: KIDNEY AND BLADDER 12/07/2024 REASON FOR EXAM: INCREASED PAIN Left renal calculus. TECHNIQUE: Procedure Code: USKI Modality: US Procedure: KIDNEY AND BLADDER COMPARISON: December 04, 2024 FINDINGS: Kidneys: Right kidney is 12.3 x 5.9 x 5.2 cm, while the left is 15.4 x 7.3 x 6.6cm. [place]: No collecting system dilation on the right [...] in position. See above description Reading [id number] CC: Dr. Polly Hamilton MD; Dr. Chiki Gonzales MD ~ Infection Control Preventionist: Signed [facility]09-02-2025 Progress note [facility] Medical Records Department [address] [place] [address] Progress Note - OBGYN 12/07/24 0821 MR#: [id number] Acct: [id number] Name: HILLARY FRAIRE Rep #:[id number] : 1990 34 From: Polly Hamilton MD PCP: Dr. Chiki Gonzales MD Status:REG C LI [facility] Subjective Subjective Spoke with Dr Elena. Would [...] Cosigner Signature (if applicable): CC: ~ Signed [facility]09-02-2025 History and physical note Author Polly Hamilton [facility] Note Date/Time December 07, 2024 1:45am [facility] Medical Records Department [address] [place] [address] OB Triage Physician Note 12/07/24 0137 MR#: [id number] Acct: [id number] Name: HILLARY FRAIRE Rep #:[id number] : 1990 34 From: Polly Hamilton MD PCP: Dr. Chiki Gonzales MD Status:REG C LI Y Location: [place] [address] HPI - General General Date of Admission: [...] Medications ?Medication ?Instructions ?Recorded ?Last Taken ?Type djvkqqej-qpl-Mu-FA 1 mg 1 tab PO DAILY pregna [...] MD; Dr. Chiki Gonzales MD ~ Signed [facility] Work Phone: 1(206) [phone] [facility] Medical Records Department [address] [place] [address] OB Triage Physician Note 12/07/24 0137 MR#: [id number] Acct: [id number] Name: HILLARY FRAIRE Rep #:[id number] : 1990 34 From: Polly Hamilton MD PCP: Dr. Chiki Gonzales MD Status:REG Rob KONG Y Location: [place] [address] HPI - General General Date of Admission: [...] Medications ?Medication ?Instructions ?Recorded ?Last Taken ?Type pdvpiqvo-pzi-Hq-FA 1 mg 1 tab PO DAILY pregna [...] MD; Dr. Chiki Gonzales MD ~ Signed [facility]09-01-2025 Consult note Author Darryl Harvey [facility] Note Date/Time December 06, 2024 1:48pm [facility] Medical Records Department [address] [place] [address] Anesthesia Postop Eval I 12/06/24 1045 MR#: [id number] Acct: [id number] Name: HILLARY FRAIRE Rep #:[id number] : 1990 34 From: Darryl Geiger PCP: Dr. Chiki Gonzales MD Status:ADM I N Y Race: C Location: [place] [address] Anesthesia: Postop Eval I Current Vital Signs [...] Harvey MD> Date _ Darryl Harvey MD [facility] Signature: Date CC: ~ Signed [facility] Work Phone: 1([phone]) 371-854209-01-2025 [facility] Medical Records Department [address] [facility] [place] [address] Discharge Summary 12/06/24 1458 MR#: [id number] Acct: [id number] Name: HILLARY FRAIRE Rep #: [id number] : 1990 34 From: Polly Hamilton MD PCP: Dr. Chiki Gonzales MD Status:DIS IN Location: [id number] Providers Date of Admission: 12/04/24 Date of [...] ureteropelvic junction Medications at Discharge Home Medications zldsojwm-czg-Ix-FA 1 mg tablet 1 tab PO DAILY [...] 78.3 H, Lymph % (Auto) 12.4 L, Har[place] % (Auto) 8.0, Eos % (Auto) 0.2, [...] mg PO TID Qty: 60 0RF Continued qvghyzfi-gvr-Wu-FA 1 mg Tablet 1 tab PO DAILY [...] Polly Hamilton MD; Dr. Chiki Gonzales MD [facility] [facility] Medical Records Department [address] [place] [address] Anesthesia Postop Eval I 12/06/24 1045 MR#: [id number] Acct: [id number] Name: HILLARY FRAIRE Rep #:[id number] : 1990 34 From: Darryl Geiger PCP: Dr. Chiki Gonzales MD Status:ADM I N Y Race: C Location: [place] [address] Anesthesia: Postop Eval I Current Vital Signs [...] MD Cosigner Signature: Date CC: ~ Signed [facility]09-01-2025 Consult note Author Darryl Harvey [facility] Note Date/Time December 06, 2024 10:48am [facility] Medical Records Department [address] [place] [address] Anesthesia Postop Eval II 12/06/24 1047 MR#: [id number] Acct: [id number] Name: HILLARY FRAIRE Rep #:[id number] : 1990 34 From: Darryl Geiger PCP: Dr. Chiki Gonzales MD Status:ADM I N Y Race: C Location: [address] Anesthesia Postop Eval I Sum Postop [...] MD Cosigner Signature: Date CC: ~ Signed [facility] Work Phone: 1(678) 765-174509-01-2025 Progress note Author Latesha Elena [facility] Note Date/Time December 06, 2024 10:13am [facility] Medical Records Department [address] [place] [address] Progress Note - Urology 12/06/24 1002 MR#: [id number] Acct: [id number] Name: HILLARY FRAIRE Rep #:[id number] : 1990 34 From: Latesha Geiger PCP: Dr. Chiki Gonzales MD Status:ADM I N Location: [place] [address] Subjective Subjective No issues overnight. She is [...] 78.3 H, Lymph % (Auto) 12.4 L, Harals[place] % (Auto) 8.0, Eos % (Auto) 0.2, [...] Cosigner Signature (if applicable): CC: ~ Signed [facility] Work Phone: 1(498) 662-887909-01-[address] [facility] Medical Records Department [address] [place] [address] Anesthesia Postop Eval II 12/06/24 1047 MR#: [id number] Acct: [id number] Name: HILLARY FRAIRE Rep #:[id number] : 1990 34 From: Darryl Geiger PCP: Dr. Chiki Gonzales MD Status:ADM I N Y Race: C Location: [place] [id number] Anesthesia Postop Eval I Sum Postop Eval [...] Complication: No 12/06/24 1048 MD> Date _ Darryl Harvey MD Cosign Signature: Date CC: ~ Signed [facility]09-01-2025 Procedure note [facility] Medical Records Department [address] [place] [address] Operative Report 12/06/24 1007 MR#: [id number] Acct: [id number] Name: HILLARY FRAIRE Rep #:[id number] : 1990 34 From: Latesha Geiger PCP: Dr. 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 A 4.5 Dutch 28 cm stent was placed over the wire with good positioning in the renal pelvis as well as the urinary bladder. At this time the bladder was emptied and the cystoscope was removed. She was awakened and taken to the recovery room in good condition. There were no complications during this procedure. Surgical Findings: 4.5 Dutch x 28 cm JJ stent Complications Complications: No Admit VTE Documentation VTE Present on Admission: Yes VTE Mechan Device Prophylaxis: SCD's VTE Pharm Prophylaxis ordered?: No Reason prophylaxis not ordered: Treatment Not Indicated 12/06/24 1048 Cosigner Signature (if applicable): CC: CARLOS Moreno; Dr. Latesha Elena MD; Dr. Chiki Gonzales MD~ Signed [facility]09-01-2025 Progress note [facility] Medical Records Department [address] [place] [address] Progress Note - Urology 12/06/24 1002 MR#: [id number] Acct: [id number] Name: HILLARY FRAIRE Rep #:[id number] : 1990 34 From: Latesha Geiger PCP: Dr. Chiki Gonzales MD Status:ADM I N Location: [place] [address] Subjective Subjective No issues overnight. She is [...] 78.3 H, Lymph % (Auto) 12.4 L, [place] % (Auto) 8.0, Eos % (Auto) 0.2, [...] Cosigner Signature (if applicable): CC: ~ Signed [facility]09-01-2025 Consult note Author Darryl Harvey [facility] Note Date/Time December 06, 2024 7:04am [facility] Medical Records Department [address] [place] [address] Pre-Anesthesia Evaluation 12/06/24 0701 MR#: [id number] Acct: [id number] Name: HILLARY FRAIRE Rep #:[id number] : 1990 34 From: Darryl Geiger PCP: Dr. 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 Female HX of Motion Sickness HX of N/V After Surgery Non-Smoker Duration of Surgery greater than 60 minutes Number of Risk Factors PONV Score Height & Weight Height & Weight: Anesthesia: Height & Weight Height 6 ft 12/04/24 11:37 Weight: 127.176 kg 12/04/24 11:37 Body Mass Index (BMI) 38.0 12/04/24 11:37 Respiratory Assessment Respiratory Assessment - gas plant 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 Has anyone observed you stop breathing during sleep? STOP Results QUESTION #5 FULL TEXT : Do you snore loudly (louder than talking or can be heard through closed doors)? 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 Specify any problems Hx of Preganancy in last 3 Months Nurse Filling Out Transfusion & Questions: Date: Time: Patient unable to answer at this time (ie. 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 - gas plant operator: /Reproductive Hx- gas plant operator Hx Now Gestational Age (in weeks): EDC: [...] Medications ?Medication ?Instructions ?Recorded ?Last Taken ?Type wngtsytq-cov-Du-FA 1 mg 1 tab PO DAILY pregna [...] MD Cosigner Signature: Date CC: ~ Signed [facility] Work Phone: 1(772) 755-110209-01-[address] [facility] Medical Records Department [address] [place] [address] Pre-Anesthesia Evaluation 12/06/24 07 MR#: [id number] Acct: [id number] Name: HILLARY FRAIRE Rep #:[id number] : 1990 34 From: Darryl Geiger PCP: Dr. 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 Female HX of Motion Sickness HX of N/V After Surgery Non-Smoker Duration of Surgery greater than 60 minutes Number of Risk Factors PONV Score Height & Weight Height & Weight: Anesthesia: Height & Weight Height 6 ft 12/04/24 11:37 Weight: 127.176 kg 12/04/24 11:37 Body Mass Index (BMI) 38.0 12/04/24 11:37 Respiratory Assessment Respiratory Assessment - gas plant 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 Has anyone observed you stop breathing during sleep? STOP Results QUESTION #5 FULL TEXT : Do you snore loudly (louder than talking or can be heard through closeddoors)? 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 Specify any problems Hx of Preganancy in last 3 Months Nurse Filling Out Transfusion & Questions: Date: Time: Patient unable to answer at this time (ie. 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 Medical Records Department [address] [place] [address] OB Triage Physician Note 12/05/24 1333 MR#: [id number] Acct: [id number] Name: HILLARY FRAIRE Rep #:[id number] : 1990 34 From: Adina Krueger MD PCP: Dr. Chiki Gonzales MD Status:ADM I N Y Location: [place] [address]-1 HPI - General General Date of Admission: [...] Final BRITTANY: 01/14/25 Gestational age: 34 2/7 [facility] Medical History (Updated 12/05/24 @ 13:[address] Adina Krueger MD) Hydronephrosis Ureteropelvic junction calculus SROM (spontaneous rupture of membranes) Anxiety Home Medications ?Medication ?Instructions ?Recorded ?Last Taken ?Type hcveerci-xbc-Cr-FA 1 mg 1 tab PO DAILY pregna [...] MD; Dr. Adina Krueger MD ~* Signed [facility] Work Phone: 1(583) 671-384808-31-[address] [facility] Medical Records Department [address] [place] [address] OB Triage Physician Note 12/05/24 1333 MR#: [id number] Acct: [id number] Name: HILLARY FRAIRE Rep #:[id number] : 1990 34 From: Adina Krueger MD PCP: Dr. Chiki Gonzales MD Status:ADM I N Y Location: [place] [address] HPI - General General Date of Admission: [...] Gestational age: 34 2/7 [facility] Medical History (Updated 12/05/24 @ 13:[address] Adina Krueger MD) Hydronephrosis Ureteropelvic junction calculus SROM (spontaneous rupture of membranes) Anxiety Home Medications ?Medication ?Instructions ?Recorded ?Last Taken ?Type ibowhcty-lug-Fq-FA 1 mg 1 tab PO DAILY pregna [...] MD; Dr. Adina Krueger MD ~* Signed [facility]08-31-2025 Consult note Author [facility] Note Date/Time December 05, 2024 9: 57am [facility] Medical Records Department [address] [facility] [place] [address] Consultation 12/05/24 0942 MR#: [id number] Acct: [id number] Name: HILLARY FRAIRE Rep #:[id number] : 1990 34 From: Latesha Geiger PCP: Dr. Chiki Gonzales MD Status:ADM I N Location: [place] [address] Assessment & Plan Assessment/Plan (1) Ureteropelvic junction [...] been given intravenous pain control. [facility] Medical History (Updated 12/05/24 @ 09:[address] Latesha Elena MD) Hydronephrosis Ureteropelvic junction calculus SROM (spontaneous rupture of membranes) Anxiety Home Medications ?Medication ?Instructions ?Recorded ?Last Taken ?Type tjhtvpkj-txp-Os-FA 1 mg 1 tab PO DAILY pregna [...] Sl. Cloudy, Urine pH 7.0, Ur Specific Dingle 1.015, Urine Protein 15 H, Urine Glucose [...] 81.3 H, Lymph % (Auto) 12.0 L, Haralson % (Auto) 5.4, Eos % (Auto) 0.1, Baso % (Auto) 0.3, Absolute Neuts (auto) 11.2 H, Absolute Lymphs (auto) 1.65, Nucleated RBC % 0 12/04/24 15:54: Creatinine 1.00, Estim Creat Clear Calc 118.54, Est GFR (MDRD) Non-Af 76 Imaging Radiology Impression Abdomen/Pelvis CT 12/04/24 12:51 IMPRESSION: Obstructing stone left UPJ measuring 16 x 11 mm. Left-sided hydronephrosis. Reading [facility] Charges/Coding Urology Urology: Attention Field Care Coordinator 12/05/24 0957 <Electronically signed by Latesha Elena [...] Moreno; Dr. Chiki Gonzales MD ~* Signed [facility] Work Phone: 1(565) 614-769508-31-2025 Consult note [facility] Medical Records Department [address] [place] [address] Consultation 12/05/2442 MR#: [id number] Acct: [id number] Name: HILLARY FRAIRE Rep #:[id number] : 1990 34 From: Latesha Geiger PCP: Dr. Chiki Gonzales MD Status:ADM I N Location: [place] [address] Assessment & Plan Assessment/Plan (1) Ureteropelvic junction [...] been given intravenous pain control. [facility] Medical History (Updated 12/05/24 @ 09:[address] Latesha Elena MD) Hydronephrosis Ureteropelvic junction calculus SROM (spontaneous rupture of membranes) Anxiety Home Medications ?Medication ?Instructions ?Recorded ?Last Taken ?Type lslsikwg-snw-Kt-FA 1 mg 1 tab PO DAILY pregna [...] Sl. Cloudy, Urine pH 7.0, Ur Specific Dingle 1.015, Urine Protein 15 H, Urine Glucose [...] 81.3 H, Lymph % (Auto) 12.0 L, Haralson % (Auto) 5.4, Eos % (Auto) 0.1, Baso % (Auto) 0.3, Absolute Neuts (auto) 11.2 H, Absolute Lymphs (auto) 1.65, Nucleated RBC % 0 12/04/24 15:54: Creatinine 1.00, Estim Creat Clear Calc 118.54, Est GFR (MDRD) Non-Af 76 Imaging Radiology Impression Abdomen/Pelvis CT 12/04/24 12:51 IMPRESSION: Obstructing stone left UPJ measuring 16 x 11 mm. Left-sided hydronephrosis. Reading [facility] Charges/Coding Urology Urology: Attention Field Care Coordinator 12/05/24 0957 Cosigner Signature (if applicable): CC: [...] Moreno; Dr. Chiki Gonzales MD ~* Signed [facility]08-31-2025 [facility] Medical Records Department [address] [place] [address] Consultation 12/05/24941 MR#: [id number] Acct: [id number] Name: HILLARY FRAIRE Rep #: [id number] : 1990 34 From: Latesha Elena MD PCP: Dr. Chiki Gonzales MD Status:ADM IN [facility] Assessment Plan Assessment/Plan (1) Ureteropelvic junction calculus: [...] been given intravenous pain control. [facility] Medical History (Updated 12/05/24 @ 09:[address] Latesha Elena MD) Hydronephrosis Ureteropelvic junction calculus SROM (spontaneous rupture of membranes) Anxiety Home Medications ???Medication ???Instructions ???Recorded ???Last Taken ???Type msvwtdsa-vjc-Gd-FA 1 mg 1 tab PO DAILY 01/08/21 [...] inspection and trachea (more content not included)... [facility]08-30-2025 Evaluation note* Diagnosis Onset Date Resolution Status [...] hypertension affecti ng chronic December 04 5:00pm [facility] Work Phone: 1(228) 316-914608-30-2025 Evaluation note* Diagnosis Onset Date Resolution Status [...] affecti ng chronic December 07 025 12:45am [facility] Work Phone: 1(984) 522-148508-30-2025 Evaluation note* Diagnosis Onset Date Resolution Status [...] junction calculus acute December 08, 025 5:47am [facility] Work Phone: 1(284) 104-587008-30-2025 History and physical note Author Sheyla Moreno [facility] Note Date/Time December 04, 2024 12 :48pm [facility] Medical Records Department [address] [place] [address] OB Triage Physician Note 12/04/24 1131 MR#: [id number] Acct: [id number] Name: HILLARY FRAIRE Rep #:[id number] : 1990 34 From: Sheyla ZAVALETA PCP: Dr. Chiki Gonzales MD Status:ZEE Murillo Location: [place] [address]472-1 HPI - General General Date of Service: [...] prophylaxis. Maternal Data Information Final BRITTANY: 01/14/25 [facility] Medical History (Updated 12/04/24 @ 12:46 by Sheyla Moreno CNM) SROM (spontaneous rupture of membranes) Anxiety Home Medications ?Medication ?Instructions ?Recorded ?Last Taken ?Type dhlmxizf-zgr-Xk-FA 1 mg 1 tab PO DAILY pregna [...] but likely Bactrim for further prophylaxis 5) [facility] physician and notified of patient status above assessment and plan of care. 12/04/24 1248 <Electronically signed by Sheyla Moreno CNM> Date _ Sheyla Moreno CNM Cosigner Signature (if applicable): Date CC: CARLOS Moreno; Dr. Chiki Gonzales MD ~ Signed [facility] Work Phone: 1(445) 412-269308-30-2025 Radiology Diagnostic study note [facility] Imaging Services [address] [place] [address] [id number] Abdomen/Pelvis without Cont MR#: [id number] Acct: [id number] Name: HILLARY FRAIRE Rep #: [id number] : 1990 F 34 From: Kat Paige MD PCP: Dr. Chiki Gonzales MD Status: REG Rob KONG Study:Abdomen/Pelvis without Cont Date of Exa m: 12/04/24 Exam# [id number] Ordering Dr: Ruben Moreno CNM PROCEDURE: ABDOMEN/PELVIS [...] x 11 mm. Left-sided hydronephrosis. Reading Location[facility] CC: CARLOS Moreno; Dr. Chiki Gonzales MD ~ Infection Control Preventionist: Signed [facility]08-30-[address] [facility] Medical Records Department [address] [place] [address] OB Triage Physician Note 12/04/24 1131 MR#: [id number] Acct: [id number] Name: HILLARY FRAIRE Rep #:[id number] : 1990 34 From: Sheyla ZAVALETA PCP: Dr. Chiki Gonzales MD Status:REG Rob KONG Y Location: [id number] HPI - General General Date of Service: [...] prophylaxis. Maternal Data Information Final BRITTANY: 01/14/25 [facility] Medical History (Updated 12/04/24 @ 12:46 by Sheyla Moreno CNM) SROM (spontaneous rupture of membranes) Anxiety Home Medications ?Medication ?Instructions ?Recorded ?Last Taken ?Type evxqqkxg-qsg-Ag-FA 1 mg 1 tab PO DAILY pregna [...] but likely Bactrim for further prophylaxis 5) [facility] physician and notified of patient status above assessment and plan of care. 12/04/24 1248 CNM> Date _ Sheyla Moreno CNM Cosigner Signature (if applicable): Date CC: [facility] Sheyla Moreno; Dr. Chiki Gonzales MD ~ Signed [facility]08-30-2025 Telephone encounter Note* Telephone Encounter - Amisha Alberto MD - 12/04/2024 10:16 AM EDT Telephone Encounter Hillary Fraire [id number] Provider: Dr. Baltazar Patient identity verified by name and . Hillary Fraire is a 34 year old at 34w1d. Attempted to call patient x3 regarding pain, sent to voicemail. Voicemail is full, unable to leave message. Amisha lAberto MD [facility] Work Phone: [phone]) [phone] Miscellaneous Notes* Telephone Encounter - Amisha Alberto MD - 12/04/2024 10:16 AM EDT Telephone Encounter Hillary Fraire [id number] Provider: Dr. Baltazar Patient identity verified by name and . Hillary Fraire is a 34 year old at 34w1d. Attempted to call patient x3 regarding pain, sent to voicemail. Voicemail is full, unable to leave message. Amisha Alberto MD documented in this encounterFisher[facility]08-25-2025 Progress note* Quick Notes - [...] RTO in 2 weeks Sheyla Moreno APRN.CNM [facility]08-25-2025 Miscellaneous Notes* Quick Notes - [...] weeks Sheyla Moreno APRN.CNM documented in this encounterFisher[facility]08-22-2025 Note Indication Evaluation of growth [...] 3 oz EFW by: Hadlock (HC-AC-FL) Extended Pony Rougher 6.0 mm Extremities / Bony Struc FL [...] RDMS, RVT Read By: Terra Esparza M.D.MATERNAL [id number] Instructions* Patient Instructions* Maurilio Penn LPN - 11/26/2024 10:50 AM EDT SEQUENTIAL SCREENINGS The [facility] offers sequential screenings for women [...] testing. It will require an appointment withour bindery technician. This is not an ultrasound performed [...] the above symptoms, contact our office at [phone] and ask to speak with anurse. After hours, you can call doctors registry at [phone] OR call [facility] at [phone] ask to have the doctor deposition operator paged. If you consider this an emergency, dial 9-2 or go to your nearest emergency department. NEED HELP? Are you dealing with a violent or abusive relationship? Are you a victim of rape or sexual assult? Call [facility] (Arab) 24 hour Crisis Hotline: 281.176.2880 or 733-929-2694. MANUAL Your Guide to a Healthy manual is now on-line. Visit the [email or web address] to download your free copy documented in this encounterFisher-[facility] Center08-04-2025 NoteHNO ID: [id number] Author: KELLY BALTAZAR MD Service: ? Author [...] Gaytan - RTO 2 wks Kelly Baltazar, [facility]-25-2025 Telephone encounter Note* Telephone Encounter - Staci Ho RN - 10/29/2024 3:26 PM EDT Faxed. Staci Ho RN [facility]07-25-2025 Miscellaneous Notes* Telephone Encounter - Staci Ho RN - 10/29/2024 3:26 PM EDT Faxed. Staci Ho RN * Telephone Encounter - Karina Severino RN - 10/29/2024 10:35 AM EDT Breast pump order received from [address] To SW to sign. Karina Severino RN documented in this encounterFisher-[facility] Center07-25-2025 Telephone encounter Note * Telephone Encounter - Karina Severino RN - 10/29/2024 10:35 AM EDT Breast pump order received from [address] To SW to sign. Karina Severino RN [facility]07-22-2025 Telephone encounter Note* Telephone Encounter - Galilea Abraham MD - 10/26/2024 4:20 PM EDT Mild anemia so she should start an OTC iron supplement every other day. Galilea Abraham MD [facility] Work Phone: 1(434) 577-324707-22-2025 Miscellaneous Notes* Telephone Encounter - Galilea Abraham MD - 10/26/2024 4:20 PM EDT Mild anemia so she should start an OTC iron supplement every other day. Galilea Abraham MD documented in this encounterFisher-[facility] Center07-21-2025 NoteHNO ID: [id number] Author: KELLY BALTAZAR MD Service: ? Author [...] 4 wks - RTO 2 wks ANDI [facility]07-21-2025 History of Present illness Narrative* [...] wks Kelly Baltazar DO documented in this encounterFisher-Titus [facility] Center07-21-2025 Note Indication Evaluation of growth, [...] 13 oz EFW by: Hadlock (HC-AC-FL) Extended Pony Rougher 6.6 mm Extremities / Bony Struc FL / HC 0.20 Other Structures FHR 148 bpm Anatomy Lateral ventricles: normal Cavum septi pellucidi: normal Cerebellum: normal Cisterna magna: normal Head / Neck Vermis: normal Lips: normal Profile: normal Nose: normal Face Maxilla: normal Mandible: normal 4-chamber view: normal RVOT view: normal LVOT view: normal 3-vessel view: normal 4-lsvguu-uzeqfwk view: normal Heart / Thorax Situs: situs solitus (normal) Aortic arch view: normal Diaphragm: normal Stomach: normal Kidneys: normal Bladder: normal Wants to know sex: yes Performed By: Janene Pinto RDMS Read By: Marbella Mcgee M.D.MATERNAL [id number] Progress note* Quick Notes - Adina Krueger [...] CULTURE, URINE Chronic hypertension in ([facility]) checks BP at homew Orders: BACTERIAL CULTURE, URINE 24 weeks gestation of ([facility]) Orders: BACTERIAL CULTURE, URINE Adina Krueger M.D. [facility]06-23-2025 Miscellaneous Notes* Quick Notes - [...] high risk in second trimester ([facility]) f/u in 4 weeks, 28 week labs next visit Orders: BACTERIAL CULTURE, URINE Chronic hypertension in ([facility]) checks BP at homew Orders: BACTERIAL CULTURE, URINE 24 weeks gestation of ([facility]) Orders: BACTERIAL CULTURE, URINE Adina Krueger M.D. documented in this encounterFisher-T[facility] Center06-23-2025 Instructions* Patient Instructions* Bella Dinero MA - 09/27/2024 3:12 PM EDT Oral Glucose Tolerance Test During Your provider has ordered an oral glucose tolerance test. For more information: My [facility] How do [...] and is not advised. documented in this encounterFisher-[facility] Center06-03-2025 Telephone encounter Note * Telephone Encounter - Elli Knight MD - 09/07/2024 1:15 PM EDT Noted- ordered. I also ordered her prophylaxis assuming this abx will work. (One pill daily for remainder of ) [facility]06-03-2025 Miscellaneous Notes* Telephone Encounter - Elli Knight [...] whole rounds of abx? documented in this encounterFisher-[facility] Center06-03-2025 Telephone encounter Note * Telephone Encounter - Staci Ho RN - 09/07/2024 10:16 AM EDT See Pt's KitBoost message---Would like to try same antibiotic and retest urine on Friday post antibiotic completion. Antibiotic pending along with UA and repeat urine culture if appropriate. Please advise and will contact Pt. Staci Ho RN [facility]06-03-2025 Telephone encounter Note* Telephone Encounter [...] she finishing the whole rounds of abx? [facility]05-30-2025 Progress note* Quick Notes - Elli Knight MD - 09/03/2024 2:30 PM EDT DM-Pt doing well. Denies vaginal Bleeding, Leaking fluid, or regular Contractions. Pt reports good movement Physical Exam: Gen: female in no apparent distress Abd: soft, Gravid. Non tender to palpation. See flow sheet @ 21 weeks Assessment & Plan Supervision of high risk in second trimester ([facility]) Orders: BACTERIAL CULTURE, URINE UA DIP, URINE (POC) Chronic hypertension in ([facility]) Growth us starting 28 weeks Orders: OBSTETRIC ULTRASOUND WHI; Standing Obesity in ([facility]) NSTs and growth History of pre-eclampsia Continue ASA Orders: BACTERIAL CULTURE, URINE UTI (urinary tract infection) in , antepartum ([facility]) WALKER today- did show nitrates on dip. May consider Prophylactic treatment remainder of - will await culture. Orders: BACTERIAL CULTURE, URINE UA DIP, URINE (POC) 21 weeks gestation of ([facility]) RTO 4 wks Orders: BACTERIAL CULTURE, URINE OBSTETRIC ULTRASOUND WHI; Standing Elli Lopez MD [facility]05-30-2025 Miscellaneous Notes* Quick Notes - Elli Knight MD - 09/03/2024 2:30 PM EDT DM-Pt doing well. Denies vaginal Bleeding, Leaking fluid, or regular Contractions. Pt reports good movement Physical Exam: Gen: female in no apparent distress Abd: soft, Gravid. Non tender to palpation. See flow sheet @ 21 weeks Assessment & Plan Supervision of high risk in second trimester ([facility]) Orders: BACTERIAL CULTURE, URINE UA DIP, URINE (POC) Chronic hypertension in ([facility]) Growth us starting 28 weeks Orders: OBSTETRIC ULTRASOUND WHI; Standing Obesity in ([facility]) NSTs and growth History of pre-eclampsia Continue ASA Orders: BACTERIAL CULTURE, URINE UTI (urinary tract infection) in , antepartum ([facility]) WALKER today- did show nitrates on dip. May consider Prophylactic treatment remainder of - will await culture. Orders: BACTERIAL CULTURE, URINE UA DIP, URINE (POC) 21 weeks gestation of ([facility]) RTO 4 wks Orders: BACTERIAL CULTURE, URINE OBSTETRIC ULTRASOUND WHI; Standing Elli Lopez MD documented in this encounterFisher-[facility] Center05-30-2025 Instructions* Patient Instructions* Bella Dinero MA - 09/03/2024 1:53 PM EDT SEQUENTIAL SCREENINGS The [facility] offers sequential screenings for women [...] testing. It will require an appointment withour bindery technician. This is not an ultrasound performed [...] the above symptoms, contact our office at [phone] and ask to speak with anurse. After hours, you can call doctors registry at [phone] OR call [facility] at [phone] ask to have the doctor deposition operator paged. If you consider this an emergency, dial 9-1-1 or go to your nearest emergency department. NEED HELP? Are you dealing with a violent or abusive relationship? Are you a victim of rape or sexual assult? Call [facility] (Arab) 24 hour Crisis Hotline: 257.834.9707 or 832-768-7490. MANUAL Your Guide to a Healthy manual is now on-line. Visit the [email or web address] to download your free copy documented in this encounterFisher-Titus Medical Center04-30-2025 Telephone encounter Note * Telephone Encounter - Karina Severino RN - 08/04/2024 10:58 AM EDT Patient notified. Karina Severino RN [facility]04-30-2025 Miscellaneous Notes* Telephone Encounter - Karina Severino RN - 08/04/2024 10:58 AM EDT Patient notified. Karina Severino RN * Telephone Encounter - Radha Hammer APRN.CNP - 08/04/2024 10:50 AM EDT Please notify patient: + UTI Rx for Macrobid sent Push fluids To notify or go to ER with back pain, fever, chills Radha Hammer APRN.MIKE documented in this encounterFisher[facility] Center04-30-2025 Telephone encounter Note * Telephone Encounter - Radha Hammer APRN.CNP - 08/04/2024 10:50 AM EDT Please notify patient: + UTI Rx for Macrobid sent Push fluids To notify or go to ER with back pain, fever, chills Radha Hammer APRN.MIKE [facility]04-28-2025 Progress note* Quick Notes - [...] , supervision, high-risk, unspecified trimester ([facility]) - ICD9: V23.9, ICD10: O09.90 (primary diagnosis) 2. BMI 38.0-38.9,adult - ICD9: V85.38, ICD10: Z68.38 3. 16 weeks gestation of ([facility]) - ICD9: V22.2, ICD10: Z3A.16 4. UTI (urinary tract infection) in , antepartum ([facility]) - ICD9: 646.63, 599.0, ICD10: O23.40 - BACTERIAL CULTURE, URINE Polly Hamilton MD [facility]04-28-2025 Miscellaneous Notes* Quick Notes - [...] 3. 16 weeks gestation of ([facility]) - ICD9: V22.2, ICD10: Z3A.16 4. UTI (urinary tract infection) in , antepartum ([facility]) - ICD9: 646.63, 599.0, ICD10: O23.40 - BACTERIAL CULTURE, URINE Polly Hamilton MD documented in this encounterFisher-T[facility] Center04-28-2025 Instructions* Patient Instructions* Michelle Drake MA - 08/02/2024 3:05 PM EDT SEQUENTIAL SCREENINGS The [facility] offers sequential screenings for women [...] testing. It will require an appointment withour bindery technician. This is not an ultrasound performed [...] the above symptoms, contact our office at [phone] and ask to speak with anurse. After hours, you can call doctors registry at [phone] OR call [facility] at [phone] ask to have the doctor deposition operator paged. If you consider this an emergency, dial 9-- or go to your nearest emergency department. NEED HELP? Are you dealing with a violent or abusive relationship? Are you a victim of rape or sexual assult? Call [facility] ([facility]) 24 hour Crisis Hotline: 487.775.5810 or 941-888-7776. MANUAL Your Guide to a Healthy manual is now on-line. Visit the [email or web address] to download your free copy documented in this encounterFisher-[facility] Center04-03-2025 Telephone encounter Note * Telephone Encounter - Kelly Baltazar MD - 07/08/2024 8:24 AM EDT See result note Keflex sent in for +urine cx [facility]04-03-2025 Miscellaneous Notes* Telephone Encounter - Kelly Baltazar MD - 07/08/2024 8:24 AM EDT See result note Keflex sent in for +urine cx documented in this encounterFisher-[facility] Center03-31-2025 Progress note* Quick Notes - [...] - RTO 4 wks Kelly Baltazar DO [facility]03-31-2025 Miscellaneous Notes* Quick Notes - [...] wks Kelly Baltazar DO documented in this encounterFisher-Titus [facility] Center03-31-2025 Instructions* Patient Instructions* Lizzie Kern MA - 07/05/2024 3:11 PM EDT SEQUENTIAL SCREENINGS The [facility] offers sequential screenings for women [...] testing. It will require an appointment withour bindery technician. This is not an ultrasound performed [...] the above symptoms, contact our office at [phone] and ask to speak with anurse. After hours, you can call doctors registry at [phone] OR call [facility] at [phone] ask to have the doctor deposition operator paged. If you consider this an emergency, dial or go to your nearest emergency department. NEED HELP? Are you dealing with a violent or abusive relationship? Are you a victim of rape or sexual assult? Call [facility] ([facility]) 24 hour Crisis Hotline: 373.938.4461 or 582-964-2356. MANUAL Your Guide to a Healthy manual is now on-line. Visit the [email or web address] to download your free copy documented in this encounterFisher-[facility] Center03-05-2025 Telephone encounter Note * Telephone Encounter - Radha Hammer APRN.CNP - 06/09/2024 8:47 AM EST Please notify patient: + UTI Push fluids Rx for Macrobid sent To notify if symptoms worsening or not improving Radha Hammer APRN.CNP [facility]03-05-2025 Miscellaneous Notes* Telephone Encounter - Radha Hammer APRN.CNP - 06/09/2024 8:47 AM EST Please notify patient: + UTI Push fluids Rx for Macrobid sent To notify if symptoms worsening or not improving Radha Hammer APRN.CNP documented in this encounter[facility] Instructions* Patient Instructions* Liz Mckeon LPN - 06/07/2024 1:59 PM EST Please select the following link to access the [facility] Your Guide to a Healthy . [email or web address] documented in this encounterFisher[facility]03-03-2025 NoteHNO ID: [id number] Author: LEANNE AQUINO APRN.RESIDENTIAL SALES EXECUTIVE Service: ? Author Type: Nurse Practitioner Type: Progress Notes Filed: 06/07/2024 15:57 Note Text: Patient declined armament repairer. *Patient has a history of preeclampsia with [...] OB Risk Screening: Comp (more content not included)...[facility] 06-07-2024 History of Present illness Narrative* Leanne Aquino APRN.[facility] - 06/07/2024 1:45 PM EST Patient declined armament repairer. *Patient has a history of preeclampsia with [...] Partner: Name: Bossman Fraire Age: 35 Occupation: [employer] Gender: Male PAST MEDICAL HISTORY Diagnosis Date #[id number] Anemia during in third trimester 11/15/2020 fracture [...] discussed with the Patient or Patient's Authorized Bobcat Operator. As applicable, any other physician, advance practice provider, medical student, or other health professional student that will be observing or involved in the sensitive examination for educational or training purposes was discussed with the Patient or Authorized Bobcat Operator. The Patient or Authorized Bobcat Operator has agreed to proceed with the [...] activity, CRL consistent with LMP. Leanne Aquino APRN.RESIDENTIAL SALES EXECUTIVE SBIRT Hillary Fraire was given the 4P's [...] Your guide to a health and the Supervisor Parking Lot. Reviewed midwifery and scout executive services that are available. 2) Screening: Hemoglobin [...] prn. Leanne Aquino APRN.CNP documented in this encounterFisher[facility]02-17-2025 Instructions* Patient Instructions* Crissy Tom APRN.[facility] - 05/24/2024 8:10 AM EST As you may already know, morning sickness can often be more appropriately called evening sickness or qvyxy-kvupso-zv-the-day sickness. While there are the paulino few, [...] medication, Doxylamine, is currently marketed as an pplp-mtw-[id number] sleeping pill. Ask your practitioner if creating a vitamin B6/Doxylaminecombination with voqu-pkz-zygzqek medications would be safe for you. Prescription [...] as Phenergan, Compazine, Reglan documented in this encounterFisher-[facility]02-17-2025 NoteHNO ID: [id number] Author: CRISSY TOM APRN.CNM Service: ? Author Type: Roof Foreman Type: Progress Notes Filed: 05/24/2024 10:23 Note [...] Living1 SAB0 IAB0 Ectopic0 Multiple0 Live Births1 Liquid Fertilizer Servicer History LMP: 03/31/2023 (Exact Date), Having periods Age at Menarche: Age at First : Age at Menopause: Liquid Fertilizer Servicer History Comments: Sexual Activity: Yes; Male Contraception: Pill PAST MEDICAL HISTORY Diagnosis Date #[id number] Anemia during in third trimester 11/15/2020 fracture [...] discussed with the Patient or Patient's Authorized Bobcat Operator. As applicable, any other physician, advance practice provider, medical student, or other health professional student that will be observing or involved in the sensitive examination for educational or training purposes was discussed with the Patient or Authorized Bobcat Operator. The Patient or Authorized Bobcat Operator has agreed to proceed with the [...] RTO 2 weeks for NOB Crissy Tom APRN.[facility]02-17-2025 History of Present illness Narrative* Crissy Tom APRN.[facility] - 05/24/2024 7:53 AM EST Hillary [...] Living1 SAB0 IAB0 Ectopic0 Multiple0 Live Births1 Liquid Fertilizer Servicer History LMP: 03/31/2023 (Exact Date), Having periods Age at Menarche: Age at First : Age at Menopause: Liquid Fertilizer Servicer History Comments: Sexual Activity: Yes; Male Contraception: Pill PAST MEDICAL HISTORY Diagnosis Date #[id number] Anemia during in third trimester 11/15/2020 fracture [...] discussed with the Patient or Patient's Authorized Bobcat Operator. As applicable, any other physician, advance practice provider, medical student, or other health professional student that will be observing or involved in the sensitive examination for educational or training purposes was discussed with the Patient or Authorized Bobcat Operator. The Patient or Authorized Bobcat Operator has agreed to proceed with the [...] NOB Crissy Tom APRN.CNM documented in this encounterFisher[facility]02-05-2025 Telephone encounter Note * Telephone Encounter - Polly Peace RN - 05/12/2024 11:29 AM EST LMP 1/3 Approximately 4w5d [facility]02-05-[facility]25 Miscellaneous Notes* Telephone Encounter - Polly Peace RN - 05/12/2024 11:29 AM EST LMP 1/3 Approximately 4w5d documented in this encounterFisher-[facility]11-29-2023 Miscellaneous Notes* Telephone Encounter - [...] you, Sheyla Moreno APRN.CNM documented in this encounterFisher[facility]10-16-2023 Miscellaneous Notes* Telephone Encounter - Abram Sim RN - 01/20/2023 11:12 AM EDT Patient aware she needs to schedule annual exam. Requested Prescriptions Pending Prescriptions Disp Refills Norethindrone, Contraceptive, (JENCYCLA) 0.35 mg tablet 90 tablet 0 Sig: Take 1 tablet by mouth once daily. ABRAM SIM RN documented in this encounterFisher-[facility] Center11-25-2022 Miscellaneous Notes* Telephone Encounter - [...] advise. Pavithra James LPN documented in this encounterFisher-[facility] Center11-10-2022 Miscellaneous Notes* Telephone Encounter - Sheyla Moreno APRN.CNM - 02/14/2022 10:05 AM EST agri.capital message sent to patient in results. Sheyla Moreno APRN.CNM documented in this encounterFisher-[facility] Center11-07-2022 History of Present illness Narrative* [...] L1 SAB0 IAB0 Ectopic0 Multiple0 Live Births1 Liquid Fertilizer Servicer History LMP: 02/06/2022 (Exact Date), Unknown Age at Menarche: Age at First : Age at Menopause: Liquid Fertilizer Servicer History Comments: Sexual Activity: Yes; Male Contraception: Pill PAST MEDICAL HISTORY Diagnosis Date #[id number] Anemia during in third trimester 11/15/2020 fracture [...] external genitalia normal, normal Bartholin's glands, urethra, Pas[place]'s glands, no vulvar lesions, no cervical lesions, [...] needed Sheyla Moreno APRN.CNM documented in this encounterFisher[facility] Center10-24-2022 Miscellaneous Notes* Addendum Note - [...] advise. Zena Villanueva Pss documented in this encounterFisher-[facility] Center10-11-2022 Miscellaneous Notes* Telephone Encounter - Eden Lovett RN - 01/15/2022 10:03 AM EDT Refill request received from pharmacy for patients OCP. Patient last seen in office on 02/20/21 forpostpartum exam. PSS: Please contact patient to schedule annual exam. Eden Lovett RN documented in this encounterFisher-[facility]08-11-2021 History of Past illness Narrative* [...] of this encounter (statuses as of 01/15/2022) [facility] History of Past illness Narrative* [...] nuchal ultrasound. Considering genetic carrier screening testing.Abby Chamtan RN documented as of this encounter (statuses as of 01/28/2022) [facility] History of Past illness Narrative* [...] of this encounter (statuses as of 01/28/2022) [facility] History of Past illness Narrative* [...] of this encounter (statuses as of 02/11/2022) [facility] History of Past illness Narrative* [...] of this encounter (statuses as of 02/11/2022) [facility] History of Past illness Narrative* [...] of this encounter (statuses as of 02/14/2022) [facility] History of Past illness Narrative* [...] of this encounter (statuses as of 03/01/2022) [facility] History of Past illness Narrative* [...] of this encounter (statuses as of 01/20/2023) [facility] of Past illness Narrative* [...] of this encounter (statuses as of 03/05/2023) [facility] Diagnosis Encounter for surveillance of contraceptive pills- Primary Surveillance of previously prescribed contraceptive pill documented in this encounter [facility]* Diagnosis Encounter for gynecological examination (general) (routine) without abnormal findings- Primary Malaise and fatigue Other malaise and fatigue Encounter for surveillance of contraceptive pills Surveillance of previously prescribed contraceptive pill [facility] encounter [facility] Diagnosis Encounter for surveillance of contraceptive pills Surveillance of previously prescribed contraceptive pill documented in this encounter [facility]* Diagnosis Missed menses- Primary Absence of [...] in first trimester documented in this encounter [facility] note* Diagnosis Missed menses- Primary Absence of [...] high-risk, unspecified trimester documented in this encounter [facility] note* Diagnosis Missed menses- Primary Absence of menstruation 6 weeks gestation of state, incidental Spotting in early Spotting complicating , antepartum condition or complication Obesity affecting in first trimester, unspecified obesity type Nausea Nausea alone UTI (urinary tract infection) in , antepartum- Primary Infections of genitourinary tract antepartum documented in this encounter [facility] note* Diagnosis Missed menses- Primary Absence of [...] abnormal blood chemistry documented in this encounter [facility] note* Diagnosis Missed menses- Primary Absence of menstruation 6 weeks gestation of ([facility]) state, incidental Spotting in early (HCC) Spotting complicating , antepartum condition or complication Obesity affecting in first trimester, unspecified obesity type ([facility]) Nausea Nausea alone Bacteria in urine- Primary Other nonspecific finding on examination of urine documented in this encounter [facility] note* Diagnosis Missed menses- Primary Absence of menstruation 6 weeks gestation of ([facility]) state, incidental Spotting in early (HCC) Spotting complicating , antepartum condition or complication Obesity affecting in first trimester, unspecified obesity type ([facility]) Nausea Nausea alone 8 weeks gestation of ([facility]) state, incidental documented in this encounter [facility] note* Diagnosis Missed menses- Primary Absence of menstruation 6 weeks gestation of ([facility]) state, incidental Spotting in early ([facility]) Spotting complicating , antepartum condition or complication Obesity affecting in first trimester, unspecified obesity type ([facility]) Nausea Nausea alone , supervision, high-risk, unspecified trimester ([facility])- Primary BMI 38.0-38.9,adult Body Mass Index 38.0-38.9, adult 16 weeks gestation of ([facility]) state, incidental UTI (urinary tract infection) in , antepartum ([facility]) Infections of genitourinary tract antepartum documented in this encounter [facility] note* Diagnosis Missed menses- Primary Absence of menstruation 6 weeks gestation of ([facility]) state, incidental Spotting in early ([facility]) Spotting complicating , antepartum condition or complication Obesity affecting in first trimester, unspecified obesity type ([facility]) Nausea Nausea alone UTI (urinary tract infection) in , antepartum ([facility])- Primary Infections of genitourinary tract antepartum documented in this encounter [facility] note* Diagnosis Missed menses- Primary Absence of menstruation 6 weeks gestation of ([facility]) state, incidental Spotting in early ([facility]) Spotting complicating , antepartum condition or complication Obesity affecting in first trimester, unspecified obesity type ([facility]) Nausea Nausea alone Supervision of high risk in second trimester ([facility])- Primary Unspecified high-risk Chronic hypertension in ([facility]) Benign essential hypertension complicating , childbirth, [...] DIP, URINE (POC) documented in this encounter [facility] note* Diagnosis Missed menses- Primary Absence of menstruation 6 weeks gestation of (HCC) state, incidental Spotting in early (HCC) Spotting complicating , antepartum condition or complication Obesity affecting in first trimester, unspecified obesity type ([facility]) Nausea Nausea alone Encounter for anatomic survey ([facility])- Primary Encounter for anatomic survey 8 weeks gestation of ([facility]) state, incidental Obesity affecting in second trimester, unspecified obesity type ([facility]) Supervision of high risk in second trimester ([facility])- Primary Unspecified high-risk Chronic hypertension in ([facility]) Benign essential hypertension complicating , childbirth, and the puerperium, unspecified as to episode of care Obesity in ([facility]) Obesity complicating , childbirth, or the puerperium, unspecified as to episode of care or not applicable History of pre-eclampsia UTI (urinary tract infection) in , antepartum ([facility]) Infections of genitourinary tract antepartum 21 weeks gestation of ([facility]) state, incidental documented in this encounter [facility] note* Diagnosis Missed menses- Primary Absence of menstruation 6 weeks gestation of ([facility]) state, incidental Spotting in early (HCC) Spotting complicating , antepartum condition or complication Obesity affecting in first trimester, unspecified obesity type ([facility]) Nausea Nausea alone Supervision of high risk in second trimester ([facility])- Primary Unspecified high-risk Chronic hypertension in ([facility]) Benign essential hypertension complicating , childbirth, and the puerperium, unspecified as to episode of care Obesity in ([facility]) Obesity complicating , childbirth, or the puerperium, unspecified as to episode of care or not applicable History of pre-eclampsia UTI (urinary tract infection) in , antepartum (HCC) Infections of genitourinary tract antepartum 21 weeks gestation of ([facility]) state, incidental UTI (urinary tract infection) in , antepartum ([facility]) Infections of genitourinary tract antepartum [facility] Diagnosis Missed menses- Primary Absence of menstruation 6 weeks gestation of ([facility]) state, incidental Spotting in early ([facility]) Spotting complicating , antepartum condition or complication Obesity affecting in first trimester, unspecified obesity type ([facility]) Nausea Nausea alone Supervision of high risk in second trimester ([facility])- Primary Unspecified high-risk Chronic hypertension in ([facility]) Benign essential hypertension complicating , childbirth, and the puerperium, unspecified as to episode of care Obesity in ([facility]) Obesity complicating , childbirth, or the puerperium, unspecified as to episode of care or not applicable History of pre-eclampsia UTI (urinary tract infection) in , antepartum ([facility]) Infections of genitourinary tract antepartum 21 weeks gestation of ([facility]) state, incidental Supervision of high risk in second trimester ([facility])- Primary Unspecified high-risk UTI (urinary tract infection) in , antepartum ([facility]) Infections of genitourinary tract antepartum Chronic hypertension in ([facility]) Benign essential hypertension complicating , childbirth, and the puerperium, unspecified as to episode of care 24 weeks gestation of ([facility]) state, incidental * Assessment & Plan Note - Adina Krueger MD - 09/27/2024 3:44 PM EDT Associated Problem(s): UTI (urinary tract infection) in , antepartum ([facility]) just finished antiobiotics Orders: BACTERIAL CULTURE, URINE * Assessment & Plan Note - Adina Krueger MD - 09/27/2024 3:44 PM EDT Associated Problem(s): Chronic hypertension in ([facility]) checks BP at homew Orders: BACTERIAL CULTURE, URINE documented in this encounter [facility] note* Diagnosis Missed menses- Primary Absence of menstruation 6 weeks gestation of ([facility]) state, incidental Spotting in early (HCC) Spotting complicating , antepartum condition or complication Obesity affecting in first trimester, unspecified obesity type ([facility]) Nausea Nausea alone Supervision of high risk in second trimester ([facility])- Primary Unspecified high-risk Chronic hypertension in [...] antepartum 21 weeks gestation of ([facility]) state, incidental Supervision of high risk in second trimester ([facility])- Primary Unspecified high-risk UTI (urinary tract infection) in , antepartum (HCC) Infections of genitourinary tract antepartum Chronic hypertension in (HCC) Benign essential hypertension complicating , childbirth, and the puerperium, unspecified as to episode of care 24 weeks gestation of ([facility]) state, incidental UTI (urinary tract infection) in , antepartum ([facility])- Primary Infections of genitourinary tract antepartum Supervision of high risk in second trimester ([facility]) Unspecified high-risk Chronic hypertension in (HCC) Benign essential hypertension complicating , childbirth, and the puerperium, unspecified as to episode of care 28 weeks gestation of ([facility]) state, incidental [facility] Diagnosis Missed menses- Primary Absence of menstruation 6 weeks gestation of ([facility]) state, incidental Spotting in early (HCC) Spotting complicating , antepartum condition or complication Obesity affecting in first trimester, unspecified obesity type ([facility]) Nausea Nausea alone Supervision of high risk in second trimester ([facility])- Primary Unspecified high-risk Chronic hypertension in (HCC) Benign essential hypertension complicating , childbirth, and the puerperium, unspecified as to episode of care Obesity in ([facility]) Obesity complicating , childbirth, or the puerperium, unspecified as to episode of care or not applicable History of pre-eclampsia UTI (urinary tract infection) in , antepartum ([facility]) Infections of genitourinary tract antepartum 21 weeks gestation of ([facility]) state, incidental Supervision of high risk in second trimester ([facility])- Primary Unspecified high-risk UTI (urinary tract infection) in , antepartum ([facility]) Infections of genitourinary tract antepartum Chronic hypertension in ([facility]) Benign essential hypertension complicating , childbirth, and the puerperium, unspecified as to episode of care 24 weeks gestation of ([facility]) state, incidental Encounter for ultrasound to check growth ([facility])- Primary Encounter for routine screening for malformation using ultrasonics Chronic hypertension in ([facility]) Benign essential hypertension complicating , childbirth, and the puerperium, unspecified as to episode of care 28 weeks gestation of ([facility]) state, incidental [facility] encounter [facility] Diagnosis Missed menses- Primary Absence of menstruation 6 weeks gestation of ([facility]) state, incidental Spotting in early ([facility]) Spotting complicating , antepartum condition or complication Obesity affecting in first trimester, unspecified obesity type ([facility]) Nausea Nausea alone Supervision of high risk in second trimester ([facility])- Primary Unspecified high-risk Chronic hypertension in ([facility]) Benign essential hypertension complicating , childbirth, and the puerperium, unspecified as to episode of care Obesity in ([facility]) Obesity complicating , childbirth, or the puerperium, unspecified as to episode of care or not applicable History of pre-eclampsia UTI (urinary tract infection) in , antepartum ([facility]) Infections of genitourinary tract antepartum 21 weeks gestation of ([facility]) state, incidental UTI (urinary tract infection) in , antepartum ([facility])- Primary Infections of genitourinary tract antepartum Supervision of high risk in second trimester ([facility])- Primary Unspecified high-risk UTI (urinary tract infection) in , antepartum ([facility]) Infections of genitourinary tract antepartum Chronic hypertension in ([facility]) Benign essential hypertension complicating , childbirth, and the puerperium, unspecified as to episode of care 24 weeks gestation of ([facility]) state, incidental [facility] this encounter [facility] Diagnosis Missed menses- Primary Absence of menstruation 6 weeks gestation of (HCC) state, incidental Spotting in early (HCC) Spotting complicating , antepartum condition or complication Obesity affecting in first trimester, unspecified obesity type (HCC) Nausea Nausea alone Supervision of high risk in second trimester ([facility])- Primary Unspecified high-risk Chronic hypertension in (HCC) Benign essential hypertension complicating , childbirth, and the puerperium, unspecified as to episode of care Obesity in (HCC) Obesity complicating , childbirth, or the puerperium, unspecified as to episode of care or not applicable History of pre-eclampsia UTI (urinary tract infection) in , antepartum ([facility]) Infections of genitourinary tract antepartum 21 weeks gestation of ([facility]) state, incidental Supervision of high risk in second trimester ([facility])- Primary Unspecified high-risk UTI (urinary tract infection) in , antepartum ([facility]) Infections of genitourinary tract antepartum Chronic hypertension in ([facility]) Benign essential hypertension complicating , childbirth, and the puerperium, unspecified as to episode of care 24 weeks gestation of ([facility]) state, incidental Obesity affecting in first trimester, unspecified obesity type ([facility])- Primary Chronic hypertension in ([facility]) Benign essential hypertension complicating , childbirth, and the puerperium, unspecified as to episode of care [facility] Missed menses- Primary Absence of menstruation 6 weeks gestation of ([facility]) state, incidental Spotting in early (HCC) Spotting complicating , antepartum condition or complication Obesity affecting in first trimester, unspecified obesity type ([facility]) Nausea Nausea alone Supervision of high risk in second trimester ([facility])- Primary Unspecified high-risk Chronic hypertension in (HCC) Benign essential hypertension complicating , childbirth, and the puerperium, unspecified as to episode of care Obesity in (HCC) Obesity complicating , childbirth, or the puerperium, unspecified as to episode of care or not applicable History of pre-eclampsia UTI (urinary tract infection) in , antepartum ([facility]) Infections of genitourinary tract antepartum 21 weeks gestation of ([facility]) state, incidental Supervision of high risk in second trimester ([facility])- Primary Unspecified high-risk UTI (urinary tract infection) in , antepartum ([facility]) Infections of genitourinary tract antepartum Chronic hypertension in ([facility]) Benign essential hypertension complicating , childbirth, and the puerperium, unspecified as to episode of care 24 weeks gestation of ([facility]) state, incidental , supervision, high-risk, unspecified trimester ([facility])- Primary Antepartum anemia complicating in third trimester ([facility]) Chronic hypertension in (HCC) Benign essential hypertension complicating , childbirth, and the puerperium, unspecified as to episode of care Obesity affecting in third trimester, unspecified obesity type ([facility]) Generalized anxiety disorder 33 weeks gestation of ([facility]) state, incidental [facility] Diagnosis Missed menses- Primary Absence of menstruation 6 weeks gestation of ([facility]) state, incidental Spotting in early ([facility]) Spotting complicating , antepartum condition or complication Obesity affecting in first trimester, unspecified obesity type ([facility]) Nausea Nausea alone Supervision of high risk in second trimester ([facility])- Primary Unspecified high-risk Chronic hypertension in ([facility]) Benign essential hypertension complicating , childbirth, and the puerperium, unspecified as to episode of care Obesity in ([facility]) Obesity complicating , childbirth, or the puerperium, unspecified as to episode of care or not applicable History of pre-eclampsia UTI (urinary tract infection) in , antepartum ([facility]) Infections of genitourinary tract antepartum 21 weeks gestation of ([facility]) state, incidental Supervision of high risk in second trimester ([facility])- Primary Unspecified high-risk UTI (urinary tract infection) in , antepartum ([facility]) Infections of genitourinary tract antepartum Chronic hypertension in ([facility]) Benign essential hypertension complicating , childbirth, and the puerperium, unspecified as to episode of care 24 weeks gestation of ([facility]) state, incidental Antepartum anemia complicating in third trimester ([facility])- Primary Chronic hypertension in ([facility]) Benign essential hypertension complicating , childbirth, and the puerperium, unspecified as to episode of care Obesity affecting in third trimester, unspecified obesity type ([facility]) Generalized anxiety disorder 35 weeks gestation of (HCC) state, incidental Calculus of kidney affecting in third trimester (HCC) [facility] Diagnosis Missed menses- Primary Absence of [...] tract infection) in , antepartum ([facility]) Infections of genitourinary tract antepartum 21 weeks gestation of ([facility]) state, incidental Supervision of high risk in second trimester ([facility])- Primary Unspecified high-risk UTI (urinary tract infection) in , antepartum ([facility]) Infections of genitourinary tract antepartum Chronic hypertension in (HCC) Benign essential hypertension complicating , childbirth, and the puerperium, unspecified as to episode of care 24 weeks gestation of ([facility]) state, incidental Chronic hypertension in (HCC)- Primary Benign essential hypertension complicating , childbirth, and the puerperium, unspecified as to episode of care Obesity affecting in third trimester, unspecified obesity type ([facility]) Antepartum anemia complicating in third trimester ([facility]) Chronic hypertension with superimposed pre-eclampsia (HCC) [facility] Diagnosis Missed menses- Primary Absence of menstruation 6 weeks gestation of (HCC) state, incidental Spotting in early (HCC) Spotting complicating , antepartum condition or complication Obesity affecting in first trimester, unspecified obesity type (HCC) Nausea Nausea alone Supervision of high risk in second trimester ([facility])- Primary Unspecified high-risk Chronic hypertension in [...] antepartum 21 weeks gestation of ([facility]) state, incidental Supervision of high risk in second trimester ([facility])- Primary Unspecified high-risk UTI (urinary tract infection) in , antepartum ([facility]) Infections of genitourinary tract antepartum Chronic hypertension in ([facility]) Benign essential hypertension complicating , childbirth, and the puerperium, unspecified as to episode of care 24 weeks gestation of ([facility]) state, incidental Chronic hypertension in ([facility])- Primary Benign essential hypertension complicating , childbirth, and the puerperium, unspecified as to episode of care Obesity affecting in third trimester, unspecified obesity type ([facility]) Antepartum anemia complicating in third trimester ([facility]) Generalized anxiety disorder 35 weeks gestation of ([facility]) state, incidental Calculus of kidney affecting in third trimester ([facility]) [facility] Diagnosis Missed menses- Primary Absence of menstruation 6 weeks gestation of ([facility]) state, incidental Spotting in early ([facility]) Spotting complicating , antepartum condition or complication Obesity affecting in first trimester, unspecified obesity type ([facility]) Nausea Nausea alone Supervision of high risk in second trimester ([facility])- Primary Unspecified high-risk Chronic hypertension in ([facility]) Benign essential hypertension complicating , childbirth, and the puerperium, unspecified as to episode of care Obesity in ([facility]) Obesity complicating , childbirth, or the puerperium, unspecified as to episode of care or not applicable History of pre-eclampsia UTI (urinary tract infection) in , antepartum ([facility]) Infections of genitourinary tract antepartum 21 weeks gestation of ([facility]) state, incidental Supervision of high risk in second trimester ([facility])- Primary Unspecified high-risk UTI (urinary tract infection) in , antepartum ([facility]) Infections of genitourinary tract antepartum Chronic hypertension in ([facility]) Benign essential hypertension complicating , childbirth, and the puerperium, unspecified as to episode of care 24 weeks gestation of ([facility]) state, incidental 36 weeks gestation of ([facility])- Primary state, incidental Chronic hypertension in (HCC) Benign essential hypertension complicating , childbirth, and the puerperium, unspecified as to episode of care Obesity affecting in third trimester, unspecified obesity type (HCC) Antepartum anemia complicating in third trimester (HCC) documented in this encounter [facility] note* Diagnosis Missed menses- Primary Absence of menstruation 6 weeks gestation of ([facility]) state, incidental Spotting in early (HCC) Spotting complicating , antepartum condition or complication Obesity affecting in first trimester, unspecified obesity type ([facility]) Nausea Nausea alone Supervision of high risk in second trimester ([facility])- Primary Unspecified high-risk Chronic hypertension in (HCC) Benign essential hypertension complicating , childbirth, and the puerperium, unspecified as to episode of care Obesity in ([facility]) Obesity complicating , childbirth, or the puerperium, unspecified as to episode of care or not applicable History of pre-eclampsia UTI (urinary tract infection) in , antepartum ([facility]) Infections of genitourinary tract antepartum 21 weeks gestation of ([facility]) state, incidental Supervision of high risk in second trimester ([facility])- Primary Unspecified high-risk UTI (urinary tract infection) in , antepartum ([facility]) Infections of genitourinary tract antepartum Chronic hypertension in ([facility]) Benign essential hypertension complicating , childbirth, and the puerperium, unspecified as to episode of care 24 weeks gestation of ([facility]) state, incidental Gestational hypertension, third trimester ([facility])- Primary Maternal obesity, antepartum ([facility]) Obesity complicating , childbirth, or the puerperium, antepartum condition or complication 36 weeks gestation of ([facility]) state, incidental documented in this encounter [facility] note* Diagnosis Missed menses- Primary Absence of menstruation 6 weeks gestation of ([facility]) state, incidental Spotting in early (HCC) Spotting complicating , antepartum condition or complication Obesity affecting in first trimester, unspecified obesity type ([facility]) Nausea Nausea alone Supervision of high [...] third trimester (HCC) documented in this encounter [facility] Discharge instructionsAdditional Instructions keep already scheduled apt for 12/13/2024 w [facility] Work Phone: Reuvwo for referral (narrative)No reason for referral information availableWReg[facility] Work Phone: Reason for visit Narrative* Diagnostic Procedure Only (Routine) - Closed Specialty Diagnoses / Procedures Referred By Omid robb Referred To Contact [facility] Diagnoses 8 weeks gestation of ([facility]) Procedures OBSTETRIC ULTRASOUND WHI US PREG UTERUS AFTER 1ST TRIMEST GESTATION Leanne Aquino APRN.MIKE [address] [place] [address] Phone: tel: fax: [facility] [address] [place] [address] Referral ID Status Reason Start Date Expiration Date V isits Requested Visits Authorized [id number] Closed Auto-Generate d Referral 06/21/2024 04/06/2025 1 1 [facility]* Diagnostic Procedure Only (Routine) - Authorized Specialty Diagnoses / Procedures Referred By Omid robb Referred To Contact [facility] Diagnoses Chronic hypertension in (HCC) 21 weeks gestation of (HCC) Procedures OBSTETRIC ULTRASOUND WHI US PREG UTERUS AFTER 1ST TRIMEST GESTATION Elli Knight MD [address] [place] [address] Phone: tel: fax: [facility] [address] [place] [address] Referral ID Status Reason Start Date Expiration Date Visits Requested Visits Authorized [id number] Authorized Auto-Generat ed Referral 04/07/2024 04/06/2025 5 5 [facility] Diagnosis Threatened miscarriage- Primary Threatened , unspecified [...] 04, 2024 5:00pm 34 weeks gestation of [facility] 2024 12:45am Flank pain, acute December 07, 2024 12:45am High risk multigravida in third trimeste r December 07, 2024 12:45am Hydronephrosis December 07, 2024 12:45am Pyelonephritis affecting [facility]2024 12:45am Recurrent UTI (urinary tract infection) complicating December 07, 2024 12:45am Ureteropelvic junction calculus [facility] 20[facility] 12:45am Chronic hypertension affecting December 07, 2024 12:45am Reason for Visit Admit Date 34 weeks gestation of November 072024 5:00pm Flank pain, acute December 04, 2024 5: 00pm High risk [facility]ravida [facility] December 04, 2024 5:00pm Hydronephrosis December 04, 2024 5: 00pm Pyelonephritis affecting [facility] 2024 5:00pm Recurrent UTI (urinary tract infection) complicating December 04, 2024 5:00pm Ureteropelvic junction calculus November 072024 5:00pm Chronic hypertension affecting December 04, 2024 5:00pm 34 weeks gestation of [facility] 2024 12:45am Flank pain, acute December 07, 2024 12:45am High risk [facility]igravida in [facility] December 07, 2024 12:45am Hydronephrosis December 07, 2024 12:45am Pyelonephritis affecting [facility] 2024 12:45am Recurrent UTI (urinary tract infection) complicating December 07, 2024 12:45am Ureteropelvic junction calculus [facility] 2024 12:45am Chronic hypertension affecting December 07, 2024 12:45am Hydronephrosis December 08, 2024 5:47am Recurrent UTI (urinary tract infection) complicating December 08, 2024 5:47am Ureteropelvic junction calculus [facility] 2024 5:47am Advance Directives No Advanced Directives Records Found Advance Directive Response Recorded Date/ Time Do you have a Healthcare Power of Director Of Strategic [employer]iances? No December 07, 2024 1:32pm Summary Purpose [...] or prosecute any alcohol or drug abuse patient.[facility] the event this information is protected by the Federal Confidentiality of Alcohol and Drug Abuse Patient Records regulations: The Federal rules restrict any use of the information to criminally investigate or prosecute any alcohol or drug abuse patient.[facility] CenterIn the event this information is [...] or prosecute any alcohol or drug abuse patient.[facility] CenterIn the event this information is protected by the Federal Confidentiality of Alcohol and Drug Abuse Patient Records regulations: The Federal rules restrict any use of the information to criminally investigate or prosecute any alcohol or drug abuse patient.[facility] CenterIn the event this information is protected by the Federal Confidentiality of Alcohol and Drug Abuse Patient Records regulations: The Federal rules restrict any use of the information to criminally investigate or prosecute any alcohol or drug abuse patient.[facility] CenterIn the event this information is protected by the Federal Confidentiality of Alcohol and Drug Abuse Patient Records regulations: The Federal rules restrict any use of the information to criminally investigate or prosecute any alcohol or drug abuse patient.[facility] CenterIn the event this information is protected by the Federal Confidentiality of Alcohol and Drug Abuse Patient Records regulations: The Federal rules restrict any use of the information to criminally investigate or prosecute any alcohol or drug abuse patient.[facility] CenterIn the event this information is protected by the Federal Confidentiality of Alcohol and Drug Abuse Patient Records regulations: The Federal rules restrict any use of the information to criminally investigate or prosecute any alcohol or drug abuse patient.[facility] CenterIn the event this information is protected by the Federal Confidentiality of Alcohol and Drug Abuse Patient Records regulations: The Federal rules restrict any use of the information to criminally investigate or prosecute any alcohol or drug abuse patient.[facility] CenterIn the event this information is protected by the Federal Confidentiality of Alcohol and Drug Abuse Patient Records regulations: The Federal rules restrict any use of the information to criminally investigate or prosecute any alcohol or drug abuse patient.[facility] CenterIn the event this information is protected by the Federal Confidentiality of Alcohol and Drug Abuse Patient Records regulations: The Federal rules restrict any use of the information to criminally investigate or prosecute any alcohol or drug abuse patient.[facility] CenterIn the event this information is protected by the Federal Confidentiality of Alcohol and Drug Abuse Patient Records regulations: The Federal rules restrict any use of the information to criminally investigate or prosecute any alcohol or drug abuse patient.[facility] CenterIn the event this information is protected by the Federal Confidentiality of Alcohol and Drug Abuse Patient Records regulations: The Federal rules restrict any use of the information to criminally investigate or prosecute any alcohol or drug abuse patient.[facility] CenterIn the event this information is protected by the Federal Confidentiality of Alcohol and Drug Abuse Patient Records regulations: The Federal rules restrict any use of the information to criminally investigate or prosecute any alcohol or drug abuse patient.[facility] CenterIn the event this information is protected by the Federal Confidentiality of Alcohol and Drug Abuse Patient Records regulations: The Federal rules restrict any use of the information to criminally investigate or prosecute any alcohol or drug abuse patient.[facility] CenterIn the event this information is protected by the Federal Confidentiality of Alcohol and Drug Abuse Patient Records regulations: The Federal rules restrict any use of the information to criminally investigate or prosecute any alcohol or drug abuse patient.[facility] CenterIn the event this information is protected by the Federal Confidentiality of Alcohol and Drug Abuse Patient Records regulations: The Federal rules restrict any use of the information to criminally investigate or prosecute any alcohol or drug abuse patient.[facility] CenterIn the event this information is protected by the Federal Confidentiality of Alcohol and Drug Abuse Patient Records regulations: The Federal rules restrict any use of the information to criminally investigate or prosecute any alcohol or drug abuse patient.[facility] CenterIn the event this information is protected by the Federal Confidentiality of Alcohol and Drug Abuse Patient Records regulations: The Federal rules restrict any use of the information to criminally investigate or prosecute any alcohol or drug abuse patient.[facility] CenterIn the event this information is protected by the Federal Confidentiality of Alcohol and Drug Abuse Patient Records regulations: The Federal rules restrict any use of the information to criminally investigate or prosecute any alcohol or drug abuse patient.[facility] CenterIn the event this information is protected by the Federal Confidentiality of Alcohol and Drug Abuse Patient Records regulations: The Federal rules restrict any use of the information to criminally investigate or prosecute any alcohol or drug abuse patient.[facility] CenterIn the event this information is protected by the Federal Confidentiality of Alcohol and Drug Abuse Patient Records regulations: The Federal rules restrict any use of the information to criminally investigate or prosecute any alcohol or drug abuse patient.[facility] CenterIn the event this information is protected by the Federal Confidentiality of Alcohol and Drug Abuse Patient Records regulations: The Federal rules restrict any use of the information to criminally investigate or prosecute any alcohol or drug abuse patient.[facility] CenterIn the event this information is protected by the Federal Confidentiality of Alcohol and Drug Abuse Patient Records regulations: The Federal rules restrict any use of the information to criminally investigate or prosecute any alcohol or drug abuse patient.[facility] CenterIn the event this information is protected by the Federal Confidentiality of Alcohol and Drug Abuse Patient Records regulations: The Federal rules restrict any use of the information to criminally investigate or prosecute any alcohol or drug abuse patient.[facility] CenterIn the event this information is protected by the Federal Confidentiality of Alcohol and Drug Abuse Patient Records regulations: The Federal rules restrict any use of the information to criminally investigate or prosecute any alcohol or drug abuse patient.[facility] CenterIn the event this information is protected by the Federal Confidentiality of Alcohol and Drug Abuse Patient Records regulations: The Federal rules restrict any use of the information to criminally investigate or prosecute any alcohol or drug abuse patient.[facility] CenterIn the event this information is protected by the Federal Confidentiality of Alcohol and Drug Abuse Patient Records regulations: The Federal rules restrict any use of the information to criminally investigate or prosecute any alcohol or drug abuse patient.[facility] CenterIn the event this information is protected by the Federal Confidentiality of Alcohol and Drug Abuse Patient Records regulations: The Federal rules restrict any use of the information to criminally investigate or prosecute any alcohol or drug abuse patient.[facility] CenterIn the event this information is protected by the Federal Confidentiality of Alcohol and Drug Abuse Patient Records regulations: The Federal rules restrict any use of the information to criminally investigate or prosecute any alcohol or drug abuse patient.[facility] CenterIn the event this information is protected by the Federal Confidentiality of Alcohol and Drug Abuse Patient Records regulations: The Federal rules restrict any use of the information to criminally investigate or prosecute any alcohol or drug abuse patient.[facility] CenterIn the event this information is protected by the Federal Confidentiality of Alcohol and Drug Abuse Patient Records regulations: The Federal rules restrict any use of the information to criminally investigate or prosecute any alcohol or drug abuse patient.[facility] CenterIn the event this information is protected by the Federal Confidentiality of Alcohol and Drug Abuse Patient Records regulations: The Federal rules restrict any use of the information to criminally investigate or prosecute any alcohol or drug abuse patient.[facility] CenterIn the event this information is protected by the Federal Confidentiality of Alcohol and Drug Abuse Patient Records regulations: The Federal rules restrict any use of the information to criminally investigate or prosecute any alcohol or drug abuse patient.[facility] CenterIn the event this information is protected by the Federal Confidentiality of Alcohol and Drug Abuse Patient Records regulations: The Federal rules restrict any use of the information to criminally investigate or prosecute any alcohol or drug abuse patient.[facility] CenterIn the event this information is protected by the Federal Confidentiality of Alcohol and Drug Abuse Patient Records regulations: The Federal rules restrict any use of the information to criminally investigate or prosecute any alcohol or drug abuse patient.[facility] CenterIn the event this information is protected by the Federal Confidentiality of Alcohol and Drug Abuse Patient Records regulations: The Federal rules restrict any use of the information to criminally investigate or prosecute any alcohol or drug abuse patient.[facility] CenterIn the event this information is protected by the Federal Confidentiality of Alcohol and Drug Abuse Patient Records regulations: The Federal rules restrict any use of the information to criminally investigate or prosecute any alcohol or drug abuse patient.[facility] CenterIn the event this information is protected by the Federal Confidentiality of Alcohol and Drug Abuse Patient Records regulations: The Federal rules restrict any use of the information to criminally investigate or prosecute any alcohol or drug abuse patient.[facility] CenterIn the event this information is protected by the Federal Confidentiality of Alcohol and Drug Abuse Patient Records regulations: The Federal rules restrict any use of the information to criminally investigate or prosecute any alcohol or drug abuse patient.[facility] Reason for Visit (unrecogniz ed section and content) Reason Comments Care + test Reason Comments Refill Request Reason Onset Date Comments Refill Request 01/28/2022 Reason Comments Well Woman Specialty Diagnoses / Procedures Referred By Omid t Referred To Contact [facility] Diagnoses Annual Exam Procedures Annual Exam Sheyla Moreno APRN.CNM [address] [place] [address] [address] Referral ID Status Reason Start Date Expiration Date Visits Requested Visits Authorized [id number] Denied Financial Clearance Required - OON Payor OON Notification Letter Clearance Not Met - Admin/Retail Advertising Sales Manager/D irector Advise to Postpone/Resched ule or Not [...] Referred By Contac t Referred To Contact [facility] Diagnoses 8 weeks gestation of (HCC) Procedures OBSTETRIC ULTRASOUND WHI US PREG UTERUS AFTER 1ST TRIMEST GESTATION Leanne Aquino APRN.RESIDENTIAL SALES EXECUTIVE [address] [place] [address] Phone: tel: fax:[phone] [address] Referral ID Status Reason Start Date Expiration Date V isits Requested Visits Authorized [id number] Closed Auto-Generate d Referral 08/20/2024 04/06/2025 1 1 Reason Comments Breast Pump Specialty Diagnoses / Procedures Referred By Contac t Referred To Contact [facility] Diagnoses Chronic hypertension in (HCC) 21 weeks gestation of (HCC) Procedures OBSTETRIC ULTRASOUND WHI US PREG UTERUS AFTER 1ST TRIMEST GESTATION Elli Knight MD [address] [place] [address] Phone: tel: fax:[phone] [address] Referral ID Status Reason Start Date Expiration Date Visits Requested Visits Authorized [id number] Authorized Auto-Generat ed Referral 04/07/2024 04/06/2025 5 5 Reason Onset Date Comments Care 11/26/2024 Reason Onset Date Comments Care 12/13/2024 Reason Comments Results Follow Up Reason Comments Nst (Non Stress Test) Specialty Diagnoses / Procedures Referred By Omid t Referred To Contact [facility] Diagnoses Chronic hypertension in (HCC) Obesity affecting in third trimester, unspecified obesity type (HCC) Antepartum anemia complicating in third trimester (HCC) Procedures BIOPHYSICAL PROFILE US WHI BIOPHYSICAL PROFILE NON-STRESS TESTING BIOPHYSICAL PROFILE W/O NON-STRESS TESTING Elli Knight MD [address] [place] [address] Phone: tel: fax: [facility] [address] [place] [address] Referral ID Status Reason Start Date Expiration Date V isits Requested Visits Authorized [id number] Closed Auto-Generate d Referral 12/15/2024 04/06/2025 1 [...] Care Teams (unrecognized sec tion and content) Mushroom Growth Media Mixer Relationship Specialty Start Date End Date Chiki Gonzales MD PCP - General Family Medicine 08/08/12 Mushroom Growth Media Mixer Relationship Specialty Start Date End Date Chiki Gonzales MD PCP - General Family Medicine 08/08/12 Mushroom Growth Media Mixer Relationship Specialty Start Date End Date Chiki Gonzales MD PCP - General Family Medicine 08/08/12 Mushroom Growth Media Mixer Relationship Specialty Start Date End Date Chiki Gonzales MD PCP - General Family Medicine 08/08/12 Mushroom Growth Media Mixer Relationship Specialty Start Date End Date Chiki Gonzales MD PCP - General Family Medicine 08/08/12 Mushroom Growth Media Mixer Relationship Specialty Start Date End Date Chiki Gonzales MD PCP - General Family Medicine 08/08/12 Mushroom Growth Media Mixer Relationship Specialty Start Date End Date Chiki Gonzales MD PCP - General Family Medicine 08/08/12 Mushroom Growth Media Mixer Relationship Specialty Start Date End Date Chiki Gonzales MD PCP - General Family Medicine 08/08/12 Mushroom Growth Media Mixer Relationship Specialty Start Date End Date Chiki Gonzales MD PCP - General Family Medicine 08/08/12 Mushroom Growth Media Mixer Relationship Specialty Start Date End Date Chiki Gonzales MD PCP - General Family Medicine 08/08/12 Mushroom Growth Media Mixer Relationship Specialty Start Date End Date Chiki Gonzales MD PCP - General Family Medicine 08/08/12 Mushroom Growth Media Mixer Relationship Specialty Start Date End Date Chiki Gonzales MD PCP - General Family Medicine 08/08/12 Mushroom Growth Media Mixer Relationship Specialty Start Date End Date Chiki Gonzales MD PCP - General Family Medicine 08/08/12 Mushroom Growth Media Mixer Relationship Specialty Start Date End Date Chiki Gonzales MD PCP - General Family Medicine 08/08/12 Mushroom Growth Media Mixer Relationship Specialty Start Date End Date Chiki Gonzales MD PCP - General Family Medicine 08/08/12 Mushroom Growth Media Mixer Relationship Specialty Start Date End Date Chiki Gonzales MD PCP - General Family Medicine 08/08/12 Mushroom Growth Media Mixer Relationship Specialty Start Date End Date Chiki Gonzales MD PCP - General Family Medicine 08/08/12 Mushroom Growth Media Mixer Relationship Specialty Start Date End Date Chiki Gonzales MD PCP - General Family Medicine 08/08/12 Mushroom Growth Media Mixer Relationship Specialty Start Date End Date Chiki Gonzales MD PCP - General Family Medicine 08/08/12 Mushroom Growth Media Mixer Relationship Specialty Start Date End Date Chiki Gonzales MD PCP - General Family Medicine 08/08/12 Mushroom Growth Media Mixer Relationship Specialty Start Date End Date Chiki Gonzales MD PCP - General Family Medicine 08/08/12 Mushroom Growth Media Mixer Relationship Specialty Start Date End Date Chiki Gonzales MD PCP - General Family Medicine 08/08/12 Mushroom Growth Media Mixer Relationship Specialty Start Date End Date Chiki Gonzales MD PCP - General Family Medicine 08/08/12 Mushroom Growth Media Mixer Relationship Specialty Start Date End Date Chiki Gonzales MD PCP - General Family Medicine 08/08/12 Mushroom Growth Media Mixer Relationship Specialty Start Date End Date Chiki Gonzales MD PCP - General Family Medicine 08/08/12 Mushroom Growth Media Mixer Relationship Specialty Start Date End Date Chiki Gonzales MD PCP - General Family Medicine 08/08/12 Mushroom Growth Media Mixer Relationship Specialty Start Date End Date Chiki Gonzales MD PCP - General Family Medicine 08/08/12 Mushroom Growth Media Mixer Relationship Specialty Start Date End Date Chiki Gonzales MD PCP - General Family Medicine 08/08/12 Mushroom Growth Media Mixer Relationship Specialty Start Date End Date Chiki Gonzales MD PCP - General Family Medicine 08/08/12 Mushroom Growth Media Mixer Relationship Specialty Start Date End Date Chiki Gonzales MD PCP - General Family Medicine 08/08/12 Mushroom Growth Media Mixer Relationship Specialty Start Date End Date Chiki [...] Care Provider Active Start: December 08, 2024 Mushroom Growth Media Mixer Relationship Specialty Start Date End Date Chiki Gonzales MD PCP - General Family Medicine 08/08/12 Mushroom Growth Media Mixer Relationship Specialty Start Date End Date Chiki Gonzales MD PCP - General Family Medicine 08/08/12 Mushroom Growth Media Mixer Relationship Specialty Start Date End Date Chiki Gonzales MD PCP - General Family Medicine 08/08/12 Mushroom Growth Media Mixer Relationship Specialty Start Date End Date Chiki Gonzales MD PCP - General Family Medicine 08/08/12 Mushroom Growth Media Mixer Relationship Specialty Start Date End Date Chiki Gonzales MD PCP - General Family Medicine 08/08/12 Goals (unrecognized section and content) Goals may be documented in a n alternate sectionGoals may be documented in an alternate section INFORMATION SOURCE (unrecogn ized section and content) DATE CREATED AUTHOR 12/23/2024 [facility] DATE CREATED AUTHOR AUTHOR'S ORGANIZ ATION 12/24/2024 [facility] FOR RECORDS PERTAINING TO PATIENTS WHO ARE [...] BE BASED ON THE PRIMARY CLINICAL RECORDS. [employer] provides no warranty or guarantee of the accuracy or completeness of information in this document.
[2024-12-24] MEDS: Lactated Ringers 1,000 ML 50 ML IV (08:00)
[2024-12-24] MEDS: Oxytocin 15 Units/NS 250ml 15 UNITS/250 ML IV.SOLN 2 UNITS IV (08:25)
[2024-12-24 08:35] LABS: Hematocrit 29.9 % (37-47); Hemoglobin 10.1 g/dL (12.0-15.0); Immature Granulocytes Count 0.080 X10^3/uL (0.0-0.0); Mean Corp Hgb Conc 33.8 g/dL (32-36); Mean Corpuscular Volume 89.5 fL (81-99); Mean Platelet Vol. 12.6 fl (6.2-12.0); NRBC Flagged by Analyzer 0 % (0-5); Platelet Count 197 K/mm3 (150-450); RBC Distribution Width CV 13.0 % (11.6-14.6); RBC Distribution Width SD 42.6 fl (35.1-43.9); Red Blood Count 3.34 M/mm3 (4.2-5.4); White Blood Count 10.5 K/mm3 (4.4-11.0)
--- NOTE | 2024-12-24 08:54 | HP.PCM.OB_ITS ---
HPI - General General Date of Admission: 12/24/24 Date of Service: 12/24/24 Chief Complaint: induction HPI Narrative ANA DAVIES, is a 34 F who presents induction of labor for CHTN and obstructing kidney stone Maternal Data Information Final BRITTANY: 01/14/25 Gestational age: 37 PFSH PFS Medical History Wears glasses Wears contact lenses Low iron Heartburn Hydronephrosis Ureteropelvic junction calculus SROM (spontaneous rupture of membranes) Anxiety Home Medications ?Medication ?Instructions ?Recorded ?Last Taken ?Type kslcpxqh-[id number] 1 mg 1 tab PO DAILY pregna ncy 01/08/21 12/23/24 07:00 History tablet acetaminophen 500 mg tablet 1,000 mg (2 x 500 mg) PO Q 6H PRN 01/13/21 12/23/24 23:15 Rx PRN Pain 1-10 Or Fever #0 tabs aspirin 81 mg capsule 81 mg PO DAILY 12/23/24 07:00 History ferrous sulfate 325 mg (65 mg 325 mg PO QODAY anemia 0 12/07/24 12/23/24 07:00 History iron) tablet (Evelyn-Time) cephalexin 500 mg capsule 500 mg PO DAILY uti kidney s tone 12/24/24 12/23/24 19:34 History famotidine 20 mg tablet (Acid 20 mg PO BID heartburn 0 12/24/24 12/23/24 19:41 History Controller) Allergy/AdvReac Type Severity Reaction Status Date / Time No Known Allergies Allergy Verified 12/24/24 07:20 Surgical History H/O wisdom tooth extraction Social History Smoking Status: Former smoker History 2 Elective abortions Hx Para 1 Spontaneous abortions Hx # Term Pregnancies Ectopic pregnancies Hx # Pregnancies Multiple births # of living children NST FHR Rate Baby A Baseline: 140 Variability:: Moderate Accelerations:: 15 x 15 Decelerations:: None NST Reactive:: Yes Uterine Activity:: irregular ROS Constitutional Constitutional: Denies fatigue, fever(s) or malaise Eyes Eyes: Denies change in vision ENT HEENT: Denies dizziness or headache(s) Cardiovascular Cardiovascular: Denies chest pain, dyspnea or lightheadedness Respiratory/Chest Respiratory/Chest: Denies cough or dyspnea Gastrointestinal Gastrointestinal: Denies change in bowel habits Genitourinary Genitourinary: Denies burning urination or genital lesions Integumentary Integumentary: Denies rash Neurologic Neurologic: Denies confusion, dizziness, headache(s), numbness or weakness Vital Signs Vital Signs Vital Signs: 12/24/24 08:26 12/24/24 08:26 12/24/24 08:28 Pulse Rate 100 87 Blood Pressure 130/82 H BP Systolic 130 BP Diastolic 82 Pulse Ox 12/24/24 08:28 Pulse Rate Blood Pressure BP Systolic BP Diastolic Pulse Ox 98 Weight Weight: 123.377 kg Body Mass Index (BMI) 36.8 Physical Exam Const alert and no apparent distress General Appearance: cooperative HEENT normocephalic Resp normal respiratory effort Cardio regular rate GI soft to palpation GI Narrative: gravid, nontender, appropriate for gestational age Extremity no calf tenderness General Extremity: edema Skin no wounds Rashes: No rashes noted Psych activity/motor behavior normal Labs Labs Labs: Blood Type A POSITIVE Antibody Screen NEGATIVE Hct, (37-47) 29.9 % L Hgb, (12.0-15.0) 10.1 g/dL L Syphilis Total Ab Pending Rhogam given: No Assessment & Plan (1) Chronic hypertension affecting : COMMENT: CHTN, no medications (2) Ureteropelvic junction calculus: COMMENT: see urology consult (3) 37 weeks gestation of : PLAN: Plan Pitocin induction of labor Epidural prn
[2024-12-24 09:12] LABS: Syphilis Antibodies Nonreactive (Nonreactive)
[2024-12-24] MEDS: Lactated Ringers 1,000 ML 999 ML IV (16:19)
[2024-12-24] MEDS: fentaNYL-bupivacaine (epidural) 100 ML BAG EPIDURAL ×2 (17:11→21:23)
[2024-12-24] MEDS: LACTATED RINGERS 500 ML 999 ML IV ×2 (18:11→21:50)
[2024-12-24] MEDS: Lactated Ringers 1,000 ML 200 ML IV (20:55)
[2024-12-25] VITALS (39 sets, daily range): BP systolic 115–131; BP diastolic 55–83; PULSE 78–116; RESP 14–19; TEMP 36.1–36.9; O2SAT 94–100
--- NOTE | 2024-12-25 01:07 | EX.PCM.OBVAG ---
Assessment & Plan (1) Chronic hypertension affecting : COMMENT: CHTN, no medications (2) Ureteropelvic junction calculus: COMMENT: see urology consult (3) (spontaneous vaginal delivery): Maternal Data Information Final BRITTANY: 01/14/25 Gestational age: 37.1 Vaginal Delivery Maternal Presentation Maternal Presentation: Medically Indicated Induction Type of Induction: Pitocin and Amniotomy Medical Reason for Induction: Maternal Medical Condition: list: (CHTN) Vaginal Delivery Information Procedure Performed: Spontaneous Vaginal Delivery Surgeon/Practitioner: Polly Hamilton Date of Procedure: 12/25/24 Pre-Procedure Diagnosis: CHTN at term Post-Procedure Diagnosis: Type of anesthesia: Epidural Estimated Blood Loss: 150 cc Time of Delivery: 00:52 Findings Description of procedure: Induction of labor for CHTN and obstructing kidney stone with stent in place. AROM at 4 cm. Progressed to complete with Pitocin. Pushed for 40 minutes over an intact perineum to deliver the vertex SHANNON. He anterior and posterior shoulders were easily forthcoming. The cried upon delivery and was placed on the maternal abdomen. THE cord was clamped and cut. The placenta delivered spontaneously. There where no lacerations to repair. All sponge and instrument counts were correct Presentation: Vertex and SHANNON Amniotic Membrane Rupture Type: Artificial Amniotic Fluid Description: Clear Placental Delivery Description: Spontaneous Placenta Disposition: [facility] Specimen collected: No Cord Vessel Description: 3 Vessels Cord Entanglement: None Infant A Gender: Female (1 minute): 8 (5 minute): 9 Delayed Cord Clamping: Yes Professional Development Instructor cap jewel plate assembler: No Post Vaginal Deli Medications given after delivery: IV Pitocin Episiotomy Description: None Laceration: None Complication Complications: No
[2024-12-25] MEDS: Oxytocin 15 Units/NS 250ml 15 UNITS/250 ML IV.SOLN 83 UNITS IV (01:27)
--- NOTE | 2024-12-25 14:38 | CASEMGMT ---
Social Work Assessment Labor and Delivery Unit Patient Address: [address] [place] [address] [address], [place] [address] Phone number: [phone] Date of Referral: 12/25/24 Time of Referral: 10:12 Referred By: Polly Hamilton Date of Intervention: 12/25/24 Time of Intervention: 14:38 Reason for Referral: History of anxiety and depression History obtained from:? Mother of baby (MOB), father of baby (FOB/Bossman, age 35) and review of medical records. Household composition: MOB, FOB, their 3 year-old son Paulie and their daughter, Ryder, born on 12/25/24. Patient's parent/guardian status: MOB and FOB have been together for 15 years and for 13 years.? MOB denied any previous or current issues of domestic violence and described a positive relationship with the FOB. MOB and FOB both denied having any other children. Medical History: :2, Para, now 2. MOB received PNC through [facility] beginning at 8 weeks and 3 days. Visits were observed to be routine. Apgars: 8 and 9. Weight: 7lbs, 2oz. Delinquent Notice Machine Operator: Dr. Piña. ? Educational Status: MOB and FOB denied any issues with reading, writing or learning comprehension. MOB and FOB both attended some college. Financial Status: MOB and FOB reported that their income is sufficient to meet the needs of their family at this time. MOB works full-time from home and gets 12 weeks of maternity leave and the FOB also works full-time as a business sales superintendent. Infant Supplies: MOB and FOB reported they have the supplies they need for baby at this time including but not limited to: Car seat, bassinet, diapers, bottles, breast pump and clothing. Childcare/Caregiver(s): MOB reported that she will be the primary caregiver of since she works form home. The FOB will also help provide care during the times he is at home. Transportation: Both MOB and FOB are licensed drivers and have a reliable vehicle to get baby to and from all medical appointments. MOB and FOB denied any issues/barriers to transportation at this time. Programs/Agencies Involved: Denied. Children Services/Legal Issues: MOB and FOB denied any previous or current Children Services and/or legal involvement. Behavioral Health Issues: Denied. ? Mental Health History: ??Medical record review indicated that the MOB has a history of anxiety and depression and MOB clarified that both were related. MOB denied taking any prescribed medications and described all symptoms as being successfully managed at tis time. FOB denied any history of mental health concerns. Water/Wastewater Project Engineer administered the Reserve Depression Scale (EPDS). MOB?s score was a 3. Water/Wastewater Project Engineer provided education on the score which the MOB verbalized she understood. Substance Use History:?? MOB and FOB both denied any history or current drug and/or alcohol abuse. ? Family History: MOB and FOB denied any family history of drug or alcohol abuse and/or mental health on either side of their family. ?? Drug Screens: No drug screens for the MOB or baby during this admission. Family/Social Stressors:?? Denied. Support Systems:? MOB identified her biggest support as the FOB, family as well as her aunt and uncle and the FOB?s mom and dad. Depression/Shaken Baby/Safe Sleeping: Water/Wastewater Project Engineer provided verbal and written education on PPD, increased risk factors for PPD, Safe Sleeping and Shaken Baby.? MOB and FOB both verbalized an understanding.??? ASSESSMENT: MOB and FOB provided consent to social work visit. Upon arrival, the MOB was sitting up in the hospital and the FOB was sitting on the couch nearby. The baby was asleep in her crib, close to the MOB. MOB and FOB were both verbally engaged with delinquency prevention social worker.? Water/Wastewater Project Engineer observed positive interaction between the MOB and FOB. Since baby slept the entire time, delinquency prevention social worker didn?t observe interaction between the MOB and FOB towards , however, when a nurse came into the room. MOB and FOB started talking about the feedings they had been tracking as well as was asking questions about a medication their baby was being given. ?At the end of the assessment, Water/Wastewater Project Engineer requested to speak with the MOB alone, which she and the FOB were both agreeable to. MOB reported feeling safe in her home and denied any previous or current domestic violence, unmanaged mental health issues either with herself or with the FOB, and also denied any concerns with any drug or alcohol abuse either with herself or with the FOB as well as any unmanaged mental health concerns. Safe Plan of Care for infant related to substance use: N/A PLAN: For MOB and baby to be discharged when medically ready. No other services requested or indicated. Polly Vazquez, DINING SERVER, HISTORY CARD CLERK
[2024-12-26 01:00] VITALS: BP 124/81; PULSE 82; RESP 16; TEMP 36.2; O2SAT 97
[2024-12-26 04:51] VITALS: BP 117/77; PULSE 79; RESP 14; TEMP 36.1; O2SAT 100
--- NOTE | 2024-12-26 08:32 | PCM.PN.OB ---
Subjective Subjective Doing well. Ambulating and voiding without difficulty. Mild lochia. Breast feeding. Objective Data Objective Data Vital Signs: Vital Signs Temp Pulse Resp BP Pulse Ox O2 Del Method 97.0 F L 79 14 117/77 100 Room Air 12/26/24 04:51 12/26/24 04:51 12/26/24 04:51 12/26/24 04:51 12/26/24 04:51 12/26/24 04:51 Oxygen Delivery Method Room Air Weight: 123.377 kg Body Mass Index (BMI) 36.8 Intake & Output: Intake and Output for Last 24 Hours 12/24/24 12/25/24 12/26/24 23:59 23:59 23:59 Intake Total 3069.30 / 3069.30 1247.37 / 1247.37 Output Total 1475 / 1475 1150 / 1150 Balance 1594.30 / 1594.30 97.37 / 97.37 Lab / Micro Data 12/24/24 08:00 ROS Constitutional Constitutional: Denies headache(s) Cardiovascular Cardiovascular: Denies chest pain or dyspnea Gastrointestinal Gastrointestinal: Denies nausea or vomiting Genitourinary Genitourinary: Denies dysuria Physical Exam Const alert, oriented x3 and no apparent distress General Appearance: cooperative and comfortable Eyes PERRL and EOMs intact bilaterally Resp normal respiratory effort GI soft to palpation and non-tender Narrative: Fundus firm, below umbilicus. Uterus Palpation: uterus fundus firm ( below umbilicus) Extremity normal to inspection and full ROM Neuro oriented x3 and CN's II-XII intact bilaterally Psych mental status grossly normal Assessment & Plan (1) (spontaneous vaginal delivery): (2) Chronic hypertension affecting : COMMENT: CHTN, no medications (3) Ureteropelvic junction calculus: COMMENT: see urology consult PLAN: Plan Discharge home
--- NOTE | 2024-12-26 08:33 | PCM.DC.SUM ---
Providers Date of Admission: 12/24/24 Date of Discharge: 12/26/24 Primary Care Physician: Madison Butler, MOTOR AND GENERATOR ASSEMBLERLavinia Reason For Visit: INDUCTION Diagnosis Discharge Diagnosis (1) (spontaneous vaginal delivery): Status: Acute Code(s): O80 - Encounter for full-term uncomplicated delivery (2) Chronic hypertension affecting : Status: Chronic Code(s): O10.919 - Unspecified pre-existing hypertension complicating , unspecified trimester (3) Ureteropelvic junction calculus: Status: Acute Code(s): N20.1 - Calculus of ureter Plan Discharge home Medications at Discharge Home Medications cfsrwcsn-pgv-Ae-FA 1 mg tablet 1 tab PO DAILY 01/08/21 acetaminophen 500 mg tablet 1,000 mg (2 x 500 mg) PO Q6H PRN PRN Pain 1-10 Or Fever #0 tabs 01/13/21 ferrous sulfate 325 mg (65 mg iron) tablet (Evelyn-Time) 325 mg PO QODAY anemia 12/07/24 cephalexin 500 mg capsule 500 mg PO DAILY uti kidney stone 12/24/24 famotidine 20 mg tablet (Acid Controller) 20 mg PO BID heartburn 12/24/24 Hospital Course Operations None Procedures None Summary of Care Provided Minutes Spent on Discharge: 21 Hospital Course: Induction of labor for CHTN. No complications . Has appointment with urology Physical Exam Const alert and no apparent distress Narrative: Fundus firm, below umbilicus. Weight / BMI Weight Weight: 123.377 kg Body Mass Index (BMI) 36.8 ABG / Lab / Microbiology Data 12/24/24 08:00 D/C Instructions May resume sexual activity in: 6 weeks DC O2, CPAP, BIPAP Needs Home O2 Discharge instructions: No Please Follow Up With: Naina Granados MD When: Follow up with our office in 1-2 and 6 weeks or as needed. [phone] Meaningful Use Info Meaningful Use Meaningful Use Diagnoses (Choose all that apply): None applicable Discharge Plan Admission Admit Date/Time: 12/24/24 07:20 Primary Reason for Your Visit: induction Attending Provider: Polly Hamilton Primary Care Provider: Madison Butler Discharge Orders/Prescriptions Prescriptions: Continued dinkuzpe-loa-Ll-FA 1 mg Tablet 1 tab PO DAILY acetaminophen 500 mg Tablet 1,000 mg PO Q6H PRN PRN (Reason: Pain 1-10 Or Fever) Qty: 0 0RF ferrous sulfate [Evelyn-Time] 325 mg (65 mg iron) tablet 325 mg PO QODAY famotidine [Acid Controller] 20 mg tablet 20 mg PO BID cephalexin 500 mg capsule 500 mg PO DAILY Discontinued aspirin 81 mg capsule 81 mg PO DAILY Referrals / Follow Up: Madison Butler, MOTOR AND GENERATOR ASSEMBLER-C [Primary Care Provider, Family Practice] Disposition Disposition (needs filled in before D/C Order can be placed): Home, Self Care
[2024-12-26 09:22] VITALS: BP 125/85; PULSE 90; RESP 14; TEMP 36.2; O2SAT 99
== END 2024-12-26 10:10 | disposition home or self-care (01) | DRG 806 ==
PROVIDERS: Admitting Provider Obstetrics & Gynecology; PCP Nurse Practitioner Family; Referring Provider Obstetrics & Gynecology; Visit Provider Obstetrics & Gynecology
DX: O10.02 Pre-existing essential hypertension complicating childbirth (principal); Z37.0 Single live birth; N20.2 Calculus of kidney with calculus of ureter; Z87.891 Personal history of nicotine dependence; Z79.82 Long term (current) use of aspirin; Z3A.37 37 weeks gestation of pregnancy; O99.893 Other specified diseases and conditions complicating puerperium
CPT/HCPCS: 59025; 59050; 85025; 86780; 86850; 86900; 86901; 99221; G0378; J2405

== ENCOUNTER 2025-01-20 11:08 | Day surgery (SDC) | payer BC, SELFPAY ==
--- NOTE | 2025-01-19 14:43 | PAT.ANE_ITS ---
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 When Was Last Pacemaker Check QUESTION #4 FULL TEXT: You/Your Family Experience fever (hyperthermia) with Anesthesia Last Oral Intake Last Oral intake: Last Oral Intake NPO since Meds taken in AM with sips of water? 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 - cnc maintenance mechanic: PONV - cnc maintenance mechanic Female Yes 01/19/25 09:09 HX of Motion Sickness Yes 01/19/25 09:09 HX of N/V After Surgery No 01/19/25 09:09 Non-Smoker Yes 01/19/25 09:09 Duration of Surgery greater No 01/19/25 09:09 than 60 minutes Number of Risk Factors 3 01/19/25 09:09 PONV Score Moderate Risk 01/19/25 09:09 Height & Weight Height & Weight: Anesthesia: Height & Weight Height 6 ft 01/12/25 08:58 Respiratory Assessment Respiratory Assessment - cnc maintenance mechanic: Respiratory Tract Infection Hx - cnc maintenance mechanic Hx Respiratory Tract Infection No 01/19/25 09:09 STOP Sleep Apnea STOP Sleep Apnea - cnc maintenance mechanic: STOP Sleep Apnea - cnc maintenance mechanic Hx Hypertension No 01/19/25 09:09 Hx Sleep Apnea No 01/19/25 09:09 CPAP BIPAP Do you snore loudly (louder No 01/19/25 09:09 than talking or can be heard Do you often feel tired/ No 01/19/25 09:09 fatigued/ sleepy during daytime? Has anyone observed you stop No 01/19/25 09:09 breathing during sleep? STOP Results Negative 01/19/25 09:09 QUESTION #5 FULL TEXT : Do you snore loudly (louder than talking or can be heard through closed doors)? Tobacco Use History Tobacco Use History - cnc maintenance mechanic: Tobacco Use History - cnc maintenance mechanic Tobacco Use Smoking Status Former smoker 01/19/25 09:09 Hx Tobacco Use No 01/19/25 09:09 Years Smoking Packs Smoked per Day Smoking Cessation Date was Yes - quit smoking within 15 01/19/25 09:09 within the last 15 years years Hx Smoking Cessation Date 04/07/19 01/19/25 09:09 Hx Smoking Cessation Counseling Hematologic Medial History Hematologic Hx - cnc maintenance mechanic: Hematologic Medical Hx - cash processing specialist Hx of Blood Transfusion No 01/19/25 09:09 Hx of Transfusion in last 3 No 01/19/25 09:09 Months Date of Last Transfusion (if within last 3 months) Ever experience any problems No 01/19/25 09:09 with transfusion(s)? Specify any problems Hx of Preganancy in last 3 Yes 01/19/25 09:09 Months Nurse Filling Out Transfusion NBUCHER 01/19/25 09:09 & Questions: Date: 01/19/25 01/19/25 09:09 Time: 09:11 01/19/25 09:09 Patient unable to answer at this time (ie. 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 - cnc maintenance mechanic: /Reproductive Hx- cnc maintenance mechanic Hx Now No 01/19/25 09:09 Gestational Age (in weeks): EDC: Hx Hx Para Hx Section SAB Yes 01/19/25 09:09 Active Medications Active Medications: Current Medications Generic Name Dose Route Start Last Admin Trade Name Freq PRN Reason Stop Dose Admin Cefazolin Sodium 2 gm/ Sodium 110 mls @ 200 mls/hr 01/20/25 13:15 Chloride IV 01/20/25 13:47 INTRAOP ONE [facility] Medical History Former smoker Non-smoker Kidney stones Hypertension UTI (urinary tract infection) Anemia Wears glasses Wears contact lenses Low iron Heartburn Hydronephrosis Ureteropelvic junction calculus SROM (spontaneous rupture of membranes) Anxiety Home Medications ?Medication ?Instructions ?Recorded ?Last Taken ?Type jzyqmsug-fwi-Qm-FA 1 mg 1 tab PO DAILY pregna ncy 01/08/21 12/23/24 07:00 History tablet ferrous sulfate 325 mg (65 mg 325 mg PO QODAY anemia 0 12/07/24 12/23/24 07:00 History iron) tablet (Evelyn-Time) cefdinir 300 mg capsule 300 mg PO BID #14 caps 01/13 Unknown Rx hydroxyzine HCl 25 mg tablet 12.5 - 50 mg PO TID PRN a nxiety 01/19/25 Unknown History Allergy/AdvReac Type Severity Reaction Status Date / Time No Known Allergies Allergy Verified 01/19/25 09:07 Family History Other Cancer Hypertension Skin cancer Surgical History (Updated 01/19/25 @ 09:14 by Pam Fu) History of cystoscopy (12/08/24) History of surgery H/O wisdom tooth extraction Social History Smoking Status: Former smoker alcohol intake: never substance use type: does not use what type of physical activity do you participate in: other frequency: other duration: other do you feel safe at home: Yes Audit: Pertinent Findings Pertinent Findings Additional pertinent findings: Hemoglobin has ranged between 9-11 and hematocrit between 27 and 32 Recommendation Anesthesia Recommendation Anesthesia recommendation: OPTIMIZED for anesthesia
[2025-01-20] VITALS (10 sets, daily range): BP systolic 122–160; BP diastolic 77–87; PULSE 81–104; RESP 14–20; TEMP 36.5–37.3; O2SAT 95–100; BMI 33.2
--- NOTE | 2025-01-20 08:28 | PCM.HP.BLA ---
History and Physical Date of Admission: 01/20/25 Date of Service: 01/12/25 MR#: [id number] Acct: [id number] Name: ANA DAVIES Rep #: [id number] : 1990 Provider: Dr. Latesha Elena MD Age/Sex: 34/F Location[place] [facility] [place] Status: Signed Intake Vital Signs 12/24/2506:18 01/13/2508:58 Height 6 ft 6 ft Weight: 243 lb 8 oz BMI 33.0 BP 118/60 Pulse 88 Intake Visit Reasons: Pre/op LONG TERM CARE PHARMACIST to office/ surg as OP Hosp 12.08.24 Chief Complaint: new patient pre-operation visit Housing Assistant Property Manager Required: No Accompanied by: self Is patient in pain?: No Allergies No Known Allergies Allergy (Verified 01/12/25 08:57) Medications ?Medication ?Instructions ?Recorded ?Confirmed ?Type mgduvqhi-abi-Yh-FA 1 mg 1 tab PO DAILY 01/08/21 01/12/25 History tablet acetaminophen 500 mg tablet 1,000 mg (2 x 500 mg) PO Q6H PRN 01/13/21 01/12/25 Rx PRN Pain 1-10 Or Fever #0 tabs ferrous sulfate 325 mg (65 mg 325 mg PO QODAY anemia 12/07/24 01/12/25 History iron) tablet (Evelyn-Time) cephalexin 500 mg capsule 500 mg PO DAILY uti kidney stone 12/24/24 01/12/25 History cefdinir 300 mg capsule 300 mg PO BID #14 caps 01/13/25 Rx Nurse's Note: preop for lithotripsy [facility] Medical History Kidney stones Hypertension UTI (urinary tract infection) Anemia Wears glasses Wears contact lenses Low iron Heartburn Hydronephrosis Ureteropelvic junction calculus SROM (spontaneous rupture of membranes) Anxiety Surgical History History of surgery H/O wisdom tooth extraction Family History Other Cancer Hypertension Skin cancer Social History Smoking Status: Former smoker alcohol intake: never substance use type: does not use what type of physical activity do you participate in: other frequency: other duration: other do you feel safe at home: Yes HPI HPI Urology Chief Complaint: new patient pre-operation visit Details: ANA DAVIES, is a 34 F. The patient is here for preoperative history and physical prior to left renal extracorporeal shockwave lithotripsy. There are no new symptoms since the last visit. The procedure, recovery and expectations were explained. The risks, benefits and alternatives were discussed, including but not limited to, the risks of anesthesia, bleeding, infection, injury, pain and the need for further intervention. We have discussed the risk of exposure to and/or potential harm posed by the COVID-19 virus with having a surgery/procedure at this time. A joint decision was made at this time to proceed with the scheduled surgery/procedure as indicated on the consent form. ROS Const Constitutional: No chills, fatigue, fever(s), headache(s), night sweats, weakness, weight change, abnormal sleep pattern or change in appetite Eyes Eyes: No change in vision ENT ENT: No headache(s) or dry mouth Resp Respiratory: No cough, chest congestion, shortness of breath or wheezing Cardio Cardiology: Positive for other (No chest pain.); No shortness of breath, irregular heart rhythm or lightheadedness Gastro GI: Positive for other (No nausea.); No abdominal pain, change in bowel habits, constipation, diarrhea or vomiting Musc Musculoskeletal: No abnormal gait Skin Skin: No yellowing of the eye, lesions, itchy eyes, rash or skin ulcer Neuro Neurology: No abnormal gait, confusion, dizziness, weakness, headache(s) or memory loss Psych Psychiatric: No abnormal sleep pattern, No change in appetite, No confusion and No memory loss Endo Endocrine: No fatigue, increased thirst/drinking or weight change Aller/Imm Allergy/Immunologic: No itchy eyes or wheezing Reg/Lymp Hematologic/Lymphatic: No easy bleeding, easy bruising or enlarged lymph nodes Exam Const General: cooperative, healthy appearing, comfortable and no acute distress HENMT Head: normocephalic and atraumatic Ears: hearing grossly normal bilaterally and external ears normal Nose: external nose normal Eyes General: appearance normal, both eyes and all related structures Neck Neck: normal visual inspection and trachea midline Chest Chest palpation & inspection: normal inspection of the chest Resp Effort & Inspection: normal respiratory effort, able to speak in complete sentences and symmetric chest movement Cardio Rate: regular rate GI Inspection: normal to inspection Palpation: soft and nontender General: No CVA tenderness Skin General: no rashes or lesions noted Neuro General: patient alert, patient awake, patient oriented x3 and CN's II-XI intact bilaterally Extrem General: normal to inspection Psych Appearance: grossly normal and well kempt Mental Status: mental status grossly normal Results POC Urinalysis w/Micro Office Urine Color ? Last Edit by Cici Haney on 01/12/25 09:02 Office Urine Clarity ? Last Edit by Cici Haney on 01/12/25 09:02 Office Urine Glucose Negative Last Edit by Cici Haney on 01/12/25 09:02 Office Urine Ketones Negative Last Edit by Cici Haney on 01/12/25 09:02 Office Urine Bilirubin Negative Last Edit by Cici Haney on 01/12/25 09:02 Office Urine Urobilinogen 0.2 mg/dL Last Edit by Cici Haney on 01/12/25 09:02 Off Ur Spec [place] 1.015 Last Edit by Cici Haney on 01/12/25 09:02 Office Urine pH 6 Last Edit by Cici Haney on 01/12/25 09:02 Office Urine Protein 2+ Last Edit by Cici Haney on 01/12/25 09:02 Office Urine Blood Large Last Edit by Cici Haney on 01/12/25 09:02 Office Urine Blood Hemolyzed Negative Last Edit by Cici Haney on 01/12/25 09:02 Office Urine Nitrate Negative Last Edit by Cici Haney on 01/12/25 09:02 Off Ur Leukocytes Positive Last Edit by Cici Haney on 01/12/25 09:02 Off Ur WBC Microscopic ? Last Edit by Cici Haney on 01/12/25 09:02 Off Ur RBC Microscopic ? Last Edit by Cici Haney on 01/12/25 09:02 Off Ur Bacteria Microscopic ? Last Edit by Cici Haney on 01/12/25 09:02 leuks 500 Coding Level of Care Code Off vis,est,level 4 Diagnoses Kidney stones N20.0 Recurrent urinary tract infection affecting in third trimester O23.43 Trimester: third trimester Assessment and Plan Assessment and Plan (1) Kidney stones: Status: Acute (2) Recurrent UTI (urinary tract infection) complicating : Status: Acute Qualifiers: Trimester: third trimester Qualified Code(s): O23.43 - Unspecified infection of urinary tract in , third trimester Comment: Ecoli UTI in . Orders: Orders POC UA Automated w/Microscopy 01/12/25 N20.0 - Calculus of kidney Plan urine culture, antibiotics pending results continue with procedure as planned 01/13/25 1415 <Electronically signed by Latesha Elena MD> Date Latesha Elena MD
[2025-01-20 11:26] LABS: Internal QC Validated? YES +Cl - CLEAR BKGD; Pregnancy, Urine Negative Negative; Record Kit Lot#,Urine Preg 0000980607
[2025-01-20] MEDS: Lactated Ringers 1,000 ML 15 ML IV (11:34)
--- NOTE | 2025-01-20 12:14 | PCM.PRE.AN2 ---
ASA Classification* ASA Classification ASA Classification: 2 Assessment & Plan Anesthesia* Anesthesia Assessment Anesthesia Assessment: Discussed sedation and/or anesthesia options, risks, benefits, and alternatives with patient/parents/legal guardian/POA. Questions invited. The patient/parents/legal guardian/POA seems to understand and agrees to proceed with anesthesia plan. Reviewed the physical assessment, medical history, allergy history and patient home medications list prior to surgery/procedure/anesthetic and documented any changes. Performed airway and anesthesia risk assessments. Anesthesia Type Anesthesia Type: General History Source History Obtained from:: Patient and Chart Anesthesia Focused Assessment* Temperature: 98 F Pulse Rate: 96 Blood Pressure: 160/85 Respiratory Rate: 16 Pulse Ox: 100 Oxygen Delivery Method: Room Air Airway Assessment Mouth opens: >3 cm Mallampati Score: II Teeth Condition: Intact Neck Range of motion (ROM): Full ROM Labs Anesthesia Preop lab: CBC WBC, (4.4-11.0) 10.5 K/mm3 12/24/24, 08:00 RBC, (4.2-5.4) 3.34 M/mm3 L 12/24/24, 08:00 Hgb, (12.0-15.0) 10.1 g/dL L 12/24/24, 08:00 Hct, (37-47) 29.9 % L 12/24/24, 08:00 Plt Count, (150-450) 197 K/mm3 12/24/24, 08:00 CHEMISTRY Potassium, (3.5-5.1) 3.7 mmol/L 01/12/21, 08:55 Sodium, (136-145) 141 mmol/L 01/12/21, 08:55 BUN, (7-18) 12 mg/dL 01/12/21, 08:55 Creatinine, (0.70-1.20) 1.00 mg/dL 12/04/24, 15:54 Glucose, (74-106) 72 mg/dL L 01/12/21, 08:55 COAG Urine Test Negative Negative Today, 11:20 Pre-Assessment Diagnosis/Proposed Procedure Planned Operative Procedure(s): (L) ESWL Anesthesia History Anesthesia History - buyer planner: Anesthesia History - buyer planner Hx Hospitalization Yes: 12/08/24 KIDNEY STONE, 01/19/25 09:09 LABOR 12/25/24 Any Problems With Anesthesia No 01/19/25 09:09 Cholinesterase deficiency No 01/19/25 09:09 You/Your Family Experience No 01/19/25 09:09 fever (hyperthermia) with Relationship Recent Exposure to Contagious No 01/20/25 11:36 Disease Does patient have nerve No 01/19/25 09:09 stimulator Patient instructed to have device shut off --Does patient have Pacemaker No 01/20/25 11:36 or ICD? When Was Last Pacemaker Check QUESTION #4 FULL TEXT: You/Your Family Experience fever (hyperthermia) with Anesthesia Last Oral Intake Last Oral intake: Last Oral Intake NPO since 09:00 01/20/25 11:36 Meds taken in AM with sips of No 01/20/25 11:36 water? 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 - buyer planner: PONV - buyer planner Female Yes 01/19/25 09:09 HX of Motion Sickness Yes 01/19/25 09:09 HX of N/V After Surgery No 01/19/25 09:09 Non-Smoker Yes 01/19/25 09:09 Duration of Surgery greater No 01/19/25 09:09 than 60 minutes Number of Risk Factors 3 01/19/25 09:09 PONV Score Moderate Risk 01/19/25 09:09 Height & Weight Height & Weight: Anesthesia: Height & Weight Height 6 ft 01/20/25 11:36 Weight: 111 kg 01/20/25 11:36 Body Mass Index (BMI) 33.2 01/20/25 11:36 Respiratory Assessment Respiratory Assessment - buyer planner: Respiratory Tract Infection Hx - buyer planner Hx Respiratory Tract Infection No 01/19/25 09:09 STOP Sleep Apnea STOP Sleep Apnea - buyer planner: STOP Sleep Apnea - buyer planner Hx Hypertension No 01/19/25 09:09 Hx Sleep Apnea No 01/19/25 09:09 CPAP BIPAP Do you snore loudly (louder No 01/19/25 09:09 than talking or can be heard Do you often feel tired/ No 01/19/25 09:09 fatigued/ sleepy during daytime? Has anyone observed you stop No 01/19/25 09:09 breathing during sleep? STOP Results Negative 01/19/25 09:09 QUESTION #5 FULL TEXT : Do you snore loudly (louder than talking or can be heard through closed doors)? Tobacco Use History Tobacco Use History - buyer planner: Tobacco Use History - buyer planner Tobacco Use Smoking Status Former smoker 01/19/25 09:09 Hx Tobacco Use No 01/19/25 09:09 Years Smoking Packs Smoked per Day Smoking Cessation Date was Yes - quit smoking within 15 01/19/25 09:09 within the last 15 years years Hx Smoking Cessation Date 04/07/19 01/19/25 09:09 Hx Smoking Cessation Counseling Hematologic Medial History Hematologic Hx - buyer planner: Hematologic Medical Hx - exercise physiologist certified Hx of Blood Transfusion No 01/19/25 09:09 Hx of Transfusion in last 3 No 01/19/25 09:09 Months Date of Last Transfusion (if within last 3 months) Ever experience any problems No 01/19/25 09:09 with transfusion(s)? Specify any problems Hx of Preganancy in last 3 Yes 01/19/25 09:09 Months Nurse Filling Out Transfusion NBUCHER 01/19/25 09:09 & Questions: Date: 01/19/25 01/19/25 09:09 Time: 09:11 01/19/25 09:09 Patient unable to answer at this time (ie. 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 - buyer planner: /Reproductive Hx- buyer planner Hx Now No 01/19/25 09:09 Gestational Age (in weeks): EDC: Hx Hx Para Hx Section SAB Yes 01/19/25 09:09 Active Medications Active Medications: Current Medications Generic Name Dose Route Start Last Admin Trade Name Freq PRN Reason Stop Dose Admin Cefazolin Sodium 2 gm/ Sodium 110 mls @ 200 mls/hr 01/20/25 13:15 Chloride IV 01/20/25 13:47 INTRAOP ONE Lactated Ringer's 1,000 mls @ 15 mls/hr 01/20/25 11:30 01/20/25 11:34 IV 15 mls/hr .Q48H CECILIA Administration PFSH Medical History Former smoker Non-smoker Kidney stones Hypertension UTI (urinary tract infection) Anemia Wears glasses Wears contact lenses Low iron Heartburn Hydronephrosis Ureteropelvic junction calculus SROM (spontaneous rupture of membranes) Anxiety Home Medications ?Medication ?Instructions ?Recorded ?Last Taken ?Type pfrcwmgp-hlo-Eq-FA 1 mg 1 tab PO DAILY 01/08/21 01/19/25 History tablet ferrous sulfate 325 mg (65 mg 325 mg PO QODAY anemia 12/07/24 01/13/25 History iron) tablet (Evelyn-Time) cefdinir 300 mg capsule 300 mg PO BID #14 caps 01/13/25 01/20/25 Rx hydroxyzine HCl 25 mg tablet 12.5 - 50 mg PO TID PRN anxiety 01/19/25 Unknown History Allergy/AdvReac Type Severity Reaction Status Date / Time No Known Allergies Allergy Verified 01/20/25 11:34 Family History Other Cancer Hypertension Skin cancer Surgical History History of cystoscopy (12/08/24) History of surgery H/O wisdom tooth extraction Social History Smoking Status: Former smoker alcohol intake: never substance use type: does not use what type of physical activity do you participate in: other frequency: other duration: other do you feel safe at home: Yes Review of Systems (Anesthesia) ROS Narrative System reviewed and no additional complaints, except as documented.
--- NOTE | 2025-01-20 14:52 | EX.PCM.DISCH ---
Discharge Instructions Diet Discharge Diet: No restrictions Activity Discharge Activity: Return to Normal Activity Dressing / Incision Call your doctor if you observe: Fever of 101 or Higher, Inability to urinate and Inability to have a bowel movement Follow Up Care Please Follow Up With: Latesha Elena MD Test Results: Test results from this visit will be discussed in further detail at your follow-up appointment, if applicable. Discharge Plan Admission Attending Provider: Latesha Elena Primary Care Provider: Madison Butler Instructions Print Language: Sudanese Discharge Orders/Prescriptions Prescriptions: New oxycodone-acetaminophen 5-325 mg tablet 1 tab PO Q8H PRN (Reason: pain) 3 Days Qty: 10 0RF ondansetron 4 mg tablet,disintegrating 4 mg PO Q8H PRN (Reason: nausea and vomiting) Qty: 10 0RF Continued rkldjbtu-ilx-Bw-FA 1 mg Tablet 1 tab PO DAILY ferrous sulfate [Evelyn-Time] 325 mg (65 mg iron) tablet 325 mg PO QODAY hydroxyzine HCl 25 mg tablet 12.5 - 50 mg PO TID PRN (Reason: anxiety) cefdinir 300 mg capsule 300 mg PO BID Qty: 14 0RF Referrals / Follow Up: Madison Butler, MOLDING PROCESS TECHNICIAN-C [Primary Care Provider, Family Practice] Disposition Disposition (needs filled in before D/C Order can be placed): Home, Self Care
[2025-01-20] MEDS: Midazolam 2 MG/2 ML Syringe IV (14:56)
[2025-01-20] MEDS: Lactated Ringers 1,000 ML 1000 ML IV (14:56)
[2025-01-20] MEDS: Cefazolin 1 GM/5 ML Vial 2 GM IV (15:00)
[2025-01-20] MEDS: fentaNYL 100 MCG/2 ML Ampul IV (15:01)
[2025-01-20] MEDS: Lidocaine 1% (5 ml sdv) 5 ML Vial IV (15:01)
--- NOTE | 2025-01-20 15:28 | OP.PCM_ITS ---
Operative Report (Standard) Operative Information Date of Procedure: 01/20/25 Pre-Operative Diagnosis: Left ureteropelvic junction calculus Post-Operative Diagnosis: Same Surgery/Procedure Performed: shockwave lithotripsy left ureter peripheral vascular tech: No Type of Anesthesia: General RN Documented Start/Stop Times: Operation Date: 01/20/25 13:15 Case Time Into Pre-Op 01/20/25 11:19 Anesthesia Start 01/20/25 14:56 Into Room 01/20/25 14:56 Procedure Start 01/20/25 15:09 Procedure End 01/20/25 15:56 Procedure Start Time: 15:09 Procedure Stop Time: 15:56 Select all DRAINS/GRAFTS/IMPLANTS that apply: None Estimated Blood Loss: <5cc Specimen collected: No Description of surgery: The patient is a 34-year-old female who was found to have an obstructing left ureteropelvic junction stone in . She now presents for surgical intervention with shockwave lithotripsy. Informed consent was obtained. The patient was taken to the operating room and placed on the operating room table. Anesthesia monitored the head, neck, airway, IV access and vital signs throughout the case. Once anesthesia was appropriate administered, she was positioned on the lithotripsy table. Her stone was easily visualized. 4000 shocks were applied to the stone which appeared to be well fragmented at the conclusion of the case. She was awakened and taken to the recovery room in good condition. There were no complications during the procedure. Surgical Findings: Large left stone, fragmented at the conclusion of the case. Complications Complications: No Admit VTE Documentation VTE Present on Admission: Yes VTE Mechan Device Prophylaxis: SCD's VTE Pharm Prophylaxis ordered?: No Reason prophylaxis not ordered: Treatment Not Indicated
--- NOTE | 2025-01-20 16:09 | PCM.POST.ANE ---
Anesthesia: Postop Eval I Current Vital Signs Temperature: 97.7 F Pulse Rate: 103 Blood Pressure: 122/87 Respiratory Rate: 20 Pulse Ox: 99 Oxygen Delivery Method: Room Air Assessment Airway patent: Yes Spontaneous unlabored respirations: Yes Mental status: Awake and Calm nausea: No Vomiting: No Anesthesia Complication: No Fluid Hydration Crystalloid volume administer (ml): 900 Total IV fluid infused: 900 Progress Note Anesthesia document: Postop Eval 1 completed: Yes
--- NOTE | 2025-01-20 16:27 | POSTOPAN2_ITS ---
Anesthesia Postop Eval I Sum Postop Eval Completion status Anesthesia document: Postop Eval 1 completed: Yes Anesthesia Postop Eval I Summary Anesthesia Postop Eval I Summary: Anesthesia Postop Eval I: Assessment Summary Airway patent Yes 01/20/25 16:11 DATE NIGHT [email or web address] Spontaneous unlabored Yes 01/20/25 16:11 DATE NIGHT [email or web address] respirations Mental status Awake,Calm 01/20/25 16:11 DATE NIGHT [email or web address] nausea No 01/20/25 16:11 DATE NIGHT [email or web address] Vomiting No 01/20/25 16:11 DATE NIGHT [email or web address] Anesthesia Postop Eval I: Fluid Summary Crystalloid volume administer 900 01/20/25 16:11 DATE NIGHT [email or web address] (ml) Colloids volume administered ( ml) Blood Product volume administered (ml) Total IV fluid infused 900 01/20/25 16:11 DATE NIGHT [email or web address] Anesthesia Postop Eval I: Summary Notes Anesthesia Complication No 01/20/25 16:11 DATE [email or web address] Anesthesia Complication Comment: Post-operative progress note Anesthesia: Postop Eval II Evaluation Mental status: Awake and Calm Pain Level: 1 nausea: No Vomiting: No Complications Anesthesia Complication: No
--- NOTE | 2025-01-20 16:27 | PCM.POSTANE2 ---
Anesthesia Postop Eval I Sum Postop Eval Completion status Anesthesia document: Postop Eval 1 completed: Yes Anesthesia Postop Eval I Summary Anesthesia Postop Eval I Summary: Anesthesia Postop Eval I: Assessment Summary Airway patent Yes 01/20/25 16:11 OPERATING [email or web address] Spontaneous unlabored Yes 01/20/25 16:11 OPERATING [email or web address] respirations Mental status Awake,Calm 01/20/25 16:11 OPERATING [email or web address] nausea No 01/20/25 16:11 OPERATING [email or web address] Vomiting No 01/20/25 16:11 OPERATING [email or web address] Anesthesia Postop Eval I: Fluid Summary Crystalloid volume administer 900 01/20/25 16:11 OPERATING [email or web address] (ml) Colloids volume administered ( ml) Blood Product volume administered (ml) Total IV fluid infused 900 01/20/25 16:11 OPERATING [email or web address] Anesthesia Postop Eval I: Summary Notes Anesthesia Complication No 01/20/25 16:11 OPERATING [email or web address] Anesthesia Complication Comment: Post-operative progress note Anesthesia: Postop Eval II Evaluation Mental status: Awake and Calm Pain Level: 1 nausea: No Vomiting: No Complications Anesthesia Complication: No
== END 2025-01-20 17:08 | disposition home or self-care (01) ==
LOC: SDC 11:09 → AC 11:10
PROVIDERS: PCP Nurse Practitioner Family; Referring Provider Urology; Visit Provider Urology
PROC: (CPT 50590; principal; 2025-01-20 13:00)
DX: O23.43 Unspecified infection of urinary tract in pregnancy, third trimester (principal); B96.20 Unspecified Escherichia coli [E. coli] as the cause of diseases classified elsewhere; N20.2 Calculus of kidney with calculus of ureter; Z87.891 Personal history of nicotine dependence; I10 Essential (primary) hypertension; O99.891 Other specified diseases and conditions complicating pregnancy; Z3A.00 Weeks of gestation of pregnancy not specified
CPT/HCPCS: 50590; 81025; J2405

== ENCOUNTER → 2025-02-08 | Outpatient (CLI) | payer BC, SELFPAY ==
--- NOTE | 2025-02-08 11:23 | RAD_ITS ---
EXAM: XR Abdomen, 1 View CLINICAL INDICATION: KUB- STONES TECHNIQUE: Frontal supine view of the abdomen/pelvis. COMPARISON: No relevant prior studies available. FINDINGS: GASTROINTESTINAL TRACT: Constipation double-J ureteral stent in the left. No dilation. ORGANS: Unremarkable as visualized. No obvious renal calculus. BONES/JOINTS: Unremarkable. No acute fracture. RAD/Abdomen Single View IMPRESSION: 1. No obvious renal calculus. 2. Constipation double-J ureteral stent in the left. Reading [facility]
== END | disposition home or self-care (01) ==
PROVIDERS: PCP Nurse Practitioner Family; Referring Provider Urology; Visit Provider Urology
DX: N20.0 Calculus of kidney (principal)
CPT/HCPCS: 74018

== ENCOUNTER → 2025-03-07 | Outpatient (CLI) | payer BC, SELFPAY ==
[2025-03-07 15:31] LABS: Calcium 9.5 mg/dL (7.6-11.0)
== END | disposition home or self-care (01) ==
LOC: MTLAB 13:18
PROVIDERS: PCP Nurse Practitioner Family; Referring Provider Urology; Visit Provider Urology
DX: R82.994 Hypercalciuria (principal)
CPT/HCPCS: 36415; 82310